=== PATIENT | female | born 1950 | race Caucasian/White ===

== ENCOUNTER 2022-01-16 12:30 | Inpatient (IN) | payer OTHER, MEDICAID ==
[~2022-01-16] VITALS: Ht 165.1 cm; Wt 149.4 kg
[2022-01-16 13:23] LABS: Albumin 3.1 g/dL (3.4-5.0); Calcium 8.9 mg/dL (8.5-10.1); Magnesium 2.3 mg/dL (1.6-2.6); Potassium 4.5 mmol/L (3.5-5.1)
[2022-01-16 13:28] LABS: BUN/Creatinine Ratio 26.7; Basophils # (auto) 0 10 ^3/uL (0-0.2); Basophils % (auto) 0.4 % (0.0-2.0); Bilirubin, Total 1.3 mg/dL (0.2-1.0); Eosinophils # (auto) 0.1 10 ^3/uL (0-0.8); Eosinophils % (auto) 1.2 % (0.0-7.0); Hematocrit 33.4 % (36.0-46.0); Hemoglobin 10.9 g/dL (12.2-16.2); Lymphocytes # (auto) 0.7 10 ^3/uL (0.4-5.4); Lymphocytes % (auto) 7.1 % (10.0-50.0); Mean Corpuscular Hemoglobin 27.5 pg (28.0-32.0); Mean Corpuscular Hgb Conc. 32.7 g/dL (32.0-36.0); Mean Corpuscular Volume 84.3 fL (80.0-100.0); Monocytes # (auto) 0.8 10 ^3/uL (0-1.3); Monocytes % (auto) 7.7 % (0.0-12.0); Neutrophils # (auto) 8.8 10 ^3/uL (1.6-8.6); Neutrophils % (auto) 83.6 % (37.0-80.0); Red Blood Cells 3.96 10^6/uL (4.0-5.20); Red Cell Distribution Width 17.4 % (11.8-14.3); Total Protein 7.9 g/dL (6.4-8.2); White Blood Cell 10.5 10^3/uL (4.4-10.8)
[2022-01-16 13:48] LABS: INR 1.09 (0.9-1.15); Partial Thromboplastin Time 31.6 sec (23.6-33.0)
[2022-01-16] MEDS ORDERED: ALBUTEROL SULF 2.5 MG/0.5ML(0.5%) NEB SOLN NEB ONE (16:00)
[2022-01-16] MEDS ORDERED: methylPREDNISolone SOD SUCC 125 MG/2 ML VL IV ONE (16:00)
[2022-01-16] MEDS ORDERED: IPRATROPIUM BROM 0.5 MG/2.5ML INH SOL NEB ONE (16:00)
[2022-01-16] MEDS ORDERED: IOHEXOL 350 MG/ML 100ML IJ ONE (16:28)
[2022-01-16] MEDS ORDERED: FUROSEMIDE 40 MG/4 ML VIAL IV ONE (16:30)
[2022-01-16 18:11] LABS: Urine Bacteria MANY /hpf (None Seen); Urine Blood Negative /uL (Negative); Urine Specific Gravity 1.017 (1.001-1.035); Urine WBC 22 /hpf (0 - 5)
[2022-01-16] MEDS ORDERED: MORPHINE SULFATE INJECTION 2 MG/ML SYRG IV PRN ×2 (18:30)
[2022-01-16] MEDS ORDERED: ACETAMINOPHEN 325 MG TAB PO PRN (18:30)
[2022-01-16] MEDS ORDERED: NITROGLYCERIN 0.4 MG SL TAB SL PRN (18:30)
[2022-01-16] MEDS: HYDROcodone-ACET 5/325MG TAB PO PRN ×2 (19:01→23:16)
[2022-01-16 20:00] VITALS: BP 117/58
[2022-01-16 22:00] VITALS: BP 117/58
[2022-01-16] MEDS: ATORVASTATIN 20 MG TAB PO SCH (23:14)
[2022-01-17] VITALS (7 sets, daily range): BP systolic 99–136; BP diastolic 51–70
[2022-01-17] MEDS ORDERED: METH750T22 PO (01:50)
[2022-01-17] MEDS ORDERED: MECL1TAB42 PO (01:50)
[2022-01-17] MEDS ORDERED: AMLO-489 PO (01:50)
[2022-01-17] MEDS ORDERED: FLUT500M2 INH (01:50)
[2022-01-17] MEDS ORDERED: CLOB0.05 TOP (01:50)
[2022-01-17] MEDS ORDERED: LOPELIQ6 PO (01:50)
[2022-01-17] MEDS ORDERED: FURO40TA4 PO (01:50)
[2022-01-17] MEDS ORDERED: HYDR-4188 PO (01:50)
[2022-01-17] MEDS ORDERED: ATOR20TA50 PO (01:50)
[2022-01-17] MEDS ORDERED: SOTA80TA PO (01:50)
[2022-01-17] MEDS ORDERED: ALLO100T PO (01:50)
[2022-01-17] MEDS ORDERED: GABA100C9 PO (01:50)
[2022-01-17] MEDS ORDERED: PANT1INJ3 IV (01:50)
[2022-01-17] MEDS ORDERED: ALBUAER3 IN (01:50)
[2022-01-17] MEDS ORDERED: CILO100T PO (01:50)
[2022-01-17] MEDS ORDERED: levoFLOXacin 500 MG TAB PO SCH (10:00)
[2022-01-17] MEDS: amLODIPine BESYLATE 5 MG TAB PO SCH (10:00)
[2022-01-17] MEDS: predniSONE 20 MG TAB PO SCH ×2 (10:24→22:31)
[2022-01-17] MEDS: PANTOPRAZOLE 40 MG TAB PO SCH (10:24)
[2022-01-17] MEDS: ALLOPURINOL 100 MG TAB PO SCH (10:25)
[2022-01-17] MEDS: ENOXAPARIN SOD 40 MG/0.4 ML SYRINGE SC SCH (10:26)
[2022-01-17] MEDS: hydrOXYchloroQUINE SULFATE 200 MG TAB PO SCH (10:31)
[2022-01-17] MEDS: FUROSEMIDE 40 MG TAB PO SCH (13:12)
[2022-01-17] MEDS: BUDESONIDE (INHALATION) 0.5 MG/2 ML NEB NEB SCH (19:22)
[2022-01-17] MEDS: HYDROcodone-ACET 5/325MG TAB PO PRN (22:32)
[2022-01-17] MEDS: ATORVASTATIN 20 MG TAB PO SCH (22:32)
[2022-01-18] VITALS (7 sets, daily range): BP systolic 87–120; BP diastolic 41–79
[2022-01-18] MEDS: levoFLOXacin 250 MG TAB PO SCH (09:04)
[2022-01-18] MEDS: predniSONE 20 MG TAB PO SCH ×2 (09:04→22:19)
[2022-01-18] MEDS: PANTOPRAZOLE 40 MG TAB PO SCH (09:04)
[2022-01-18] MEDS: ALLOPURINOL 100 MG TAB PO SCH (09:04)
[2022-01-18] MEDS: FUROSEMIDE 40 MG TAB PO SCH (09:06)
[2022-01-18] MEDS: SOTALOL HCL 80 MG TAB PO SCH ×2 (09:06→22:30)
[2022-01-18] MEDS: amLODIPine BESYLATE 5 MG TAB PO SCH (09:07)
[2022-01-18] MEDS: HYDROcodone-ACET 5/325MG TAB PO PRN ×2 (09:08→22:20)
[2022-01-18] MEDS: ENOXAPARIN SOD 40 MG/0.4 ML SYRINGE SC SCH (09:08)
[2022-01-18] MEDS: hydrOXYchloroQUINE SULFATE 200 MG TAB PO SCH (09:08)
[2022-01-18] MEDS: BUDESONIDE (INHALATION) 0.5 MG/2 ML NEB NEB SCH ×2 (09:58→22:24)
[2022-01-18] MEDS: GABAPENTIN 400 MG CAP PO SCH ×2 (10:00→22:19)
[2022-01-18] MEDS: ATORVASTATIN 20 MG TAB PO SCH (22:19)
[2022-01-18] MEDS: IPRATROPIUM BROM 0.5 MG/2.5ML INH SOL NEB PRN (22:24)
[2022-01-19] VITALS (7 sets, daily range): BP systolic 94–120; BP diastolic 47–65
[2022-01-19] MEDS: BUDESONIDE (INHALATION) 0.5 MG/2 ML NEB NEB SCH ×2 (06:07→18:48)
[2022-01-19 06:51] LABS: Basophils # (auto) 0 10 ^3/uL (0-0.2); Basophils % (auto) 0.1 % (0.0-2.0); Eosinophils # (auto) 0 10 ^3/uL (0-0.8); Hematocrit 31.7 % (36.0-46.0); Hemoglobin 10.6 g/dL (12.2-16.2); Lymphocytes # (auto) 0.6 10 ^3/uL (0.4-5.4); Lymphocytes % (auto) 7.9 % (10.0-50.0); Mean Corpuscular Hemoglobin 28.4 pg (28.0-32.0); Mean Corpuscular Hgb Conc. 33.3 g/dL (32.0-36.0); Mean Corpuscular Volume 85.2 fL (80.0-100.0); Monocytes # (auto) 0.3 10 ^3/uL (0-1.3); Monocytes % (auto) 4.3 % (0.0-12.0); Neutrophils # (auto) 6.8 10 ^3/uL (1.6-8.6); Neutrophils % (auto) 87.7 % (37.0-80.0); Red Blood Cells 3.72 10^6/uL (4.0-5.20); Red Cell Distribution Width 17.5 % (11.8-14.3); White Blood Cell 7.8 10^3/uL (4.4-10.8)
[2022-01-19 07:03] LABS: Albumin 2.6 g/dL (3.4-5.0); Calcium 8.4 mg/dL (8.5-10.1); Magnesium 2.5 mg/dL (1.6-2.6); Potassium 4.7 mmol/L (3.5-5.1)
[2022-01-19 07:07] LABS: BUN/Creatinine Ratio 36.3; Bilirubin, Total 0.5 mg/dL (0.2-1.0); Total Protein 6.9 g/dL (6.4-8.2)
[2022-01-19] MEDS: GABAPENTIN 400 MG CAP PO SCH ×2 (09:28→21:55)
[2022-01-19] MEDS: PANTOPRAZOLE 40 MG TAB PO SCH (09:29)
[2022-01-19] MEDS: levoFLOXacin 250 MG TAB PO SCH (09:30)
[2022-01-19] MEDS: predniSONE 20 MG TAB PO SCH ×2 (09:30→21:56)
[2022-01-19] MEDS: ALLOPURINOL 100 MG TAB PO SCH (09:30)
[2022-01-19] MEDS: FUROSEMIDE 40 MG TAB PO SCH (09:32)
[2022-01-19] MEDS: amLODIPine BESYLATE 5 MG TAB PO SCH (09:33)
[2022-01-19] MEDS: APIXABAN 5 MG TAB PO SCH ×2 (09:33→21:55)
[2022-01-19] MEDS: SOTALOL HCL 80 MG TAB PO SCH ×2 (09:33→21:55)
[2022-01-19] MEDS: hydrOXYchloroQUINE SULFATE 200 MG TAB PO SCH (09:34)
[2022-01-19] MEDS: HYDROcodone-ACET 5/325MG TAB PO PRN ×2 (09:39→21:56)
[2022-01-19] MEDS: IPRATROPIUM BROM 0.5 MG/2.5ML INH SOL NEB PRN (18:48)
[2022-01-19] MEDS: ATORVASTATIN 20 MG TAB PO SCH (21:55)
[2022-01-20 05:09] VITALS: BP 125/71
[2022-01-20] MEDS: IPRATROPIUM BROM 0.5 MG/2.5ML INH SOL NEB PRN (06:53)
[2022-01-20] MEDS: BUDESONIDE (INHALATION) 0.5 MG/2 ML NEB NEB SCH (06:53)
[2022-01-20 09:00] VITALS: BP 138/67
[2022-01-20] MEDS: APIXABAN 5 MG TAB PO SCH (10:11)
[2022-01-20] MEDS: predniSONE 20 MG TAB PO SCH (10:11)
[2022-01-20] MEDS: levoFLOXacin 250 MG TAB PO SCH (10:11)
[2022-01-20] MEDS: PANTOPRAZOLE 40 MG TAB PO SCH (10:12)
[2022-01-20] MEDS: hydrOXYchloroQUINE SULFATE 200 MG TAB PO SCH (10:12)
[2022-01-20] MEDS: GABAPENTIN 400 MG CAP PO SCH (10:12)
[2022-01-20] MEDS: ALLOPURINOL 100 MG TAB PO SCH (10:13)
[2022-01-20] MEDS: FUROSEMIDE 40 MG TAB PO SCH (10:15)
[2022-01-20] MEDS: SOTALOL HCL 80 MG TAB PO SCH (10:15)
[2022-01-20] MEDS: amLODIPine BESYLATE 5 MG TAB PO SCH (10:16)
[2022-01-20] MEDS ORDERED: DOXY-346 PO (11:42)
[2022-01-20] MEDS ORDERED: APIX5TAB PO ×2 (11:42→12:48)
[2022-01-20] MEDS ORDERED: PRED20TA2 PO (11:42)
[2022-01-20] MEDS: HYDROcodone-ACET 5/325MG TAB PO PRN (12:21)
[2022-01-20 13:00] VITALS: BP 146/73
== END 2022-01-20 16:34 | disposition home health service (06) | DRG 291 ==
LOC: ER 12:30 → EDBD 12:30 → TELE-WESTW 18:18 → ER 19:53 → TELE-WESTW 19:53
PROVIDERS: ADMIT Nurse Practitioner; ATTEND Nurse Practitioner
DX: I11.0 Hypertensive heart disease with heart failure (principal); J96.21 Acute and chronic respiratory failure with hypoxia; I50.33 Acute on chronic diastolic (congestive) heart failure; J44.1 Chronic obstructive pulmonary disease with (acute) exacerbation; J98.11 Atelectasis; Z68.43 Body mass index [BMI] 50.0-59.9, adult; E44.1 Mild protein-calorie malnutrition; E66.01 Morbid (severe) obesity due to excess calories; M10.9 Gout, unspecified; I48.0 Paroxysmal atrial fibrillation; Z20.822 Contact with and (suspected) exposure to COVID-19; D64.9 Anemia, unspecified; Z82.49 Family history of ischemic heart disease and other diseases of the circulatory system; Z82.5 Family history of asthma and other chronic lower respiratory diseases; Z91.81 History of falling; Z88.2 Allergy status to sulfonamides
CPT/HCPCS: 36415; 36600; 51702; 71045; 71275; 80053; 81001; 82805; 83735; 83880; 84484; 85025; 85610; 85730; 93005; 93306; 94640; 96372; 96374; 96375; G0378

== ENCOUNTER 2025-03-20 04:56 | Inpatient (IN) | payer OTHER, MEDICAID ==
[2025-03-20] VITALS (31 sets, daily range): BP systolic 96–122; BP diastolic 35–84; PULSE 69–100; RESP 10–25; TEMP 97.7–98.7; O2SAT 96–100
[~2025-03-20] VITALS: Ht 165.1 cm; Wt 131.3 kg
[~2025-03-20 04:56] MED LIST: ALBUAER3 IN; ALLO100T PO; AMLO1TAB22 PO; APIX2.5T PO; APIX5TAB PO; ATOR20TA50 PO; BUME2TAB5 PO; CILO100T3 PO; CLOB0.05 TOP; DOXY-346 PO; FLUT1AER13 PO; FLUT500M2 INH; FURO40TA4 PO; GABA-1250 PO; GABA-1308 PO; HYDR-4491 PO; LACT10SO3 PO; LOPELIQ6 PO; MECL-126 PO; MECL1TAB42 PO; METH-1182 PO; MIDO10TA3 PO; PANT1INJ3 IV; PANT40T PO; POTA-180 PO; PRED20TA2 PO; ROPI5TAB20 PO; SOTA80TA PO; SPIR50TA5 PO
--- NOTE | 2025-03-20 05:06 | ED.PDOC ---
History of Present Illness HPI Comments 74 year old, morbidly obese female who is brought in by ambulance for complaint of nonradiating, RUQ abdominal pain, with associated nausea and vomiting. Per EMS report, patient is a poor historian. She called with initial endorsement of pain and nausea and vomiting 1x on scene. Patient has a history of AFib with RVR, CHF, CKF stage III, COPD, DM, HLD, HTN, sepsis, and bacteremia. Patient is still has a gallbladder. She has no reported bloody or bilious vomitus, diarrhea, constipation, urinary symptoms, or further associated symptoms or modifying factors at this time. Time Seen by MD: 05:00 Reviewed Notes: Nurses Notes, Surveillance Monitor Notes, Medications, Allergies Allergies: Coded Allergies: Zinc Oxide (Verified Allergy, Mild, 03/07/25) Sulfa Antibiotics (Verified Allergy, Unknown, 01/16/22) Home Meds Active Scripts Apixaban Base (ELIQUIS) 5 Mg Tab, 5 MG PO BID for 30 Days, #60 TAB Prov:VÍCTOR HAMILTON BENDER HAND 01/20/22 Doxycycline (Monohydrate) (Doxycycline) 100 Mg Tab, 100 MG PO BID for 7 Days, #14 TAB Prov:VÍCTOR HAMILTON BENDER HAND 01/20/22 Prednisone (Prednisone) 20 Mg Tab, 20 MG PO BID for 5 Days, #10 TAB Prov:VÍCTOR HAMILTON BENDER HAND 01/20/22 Reported Medications Ropinirole Hydrochloride (Ropinirole Hcl) 0.25 Mg Tab, 1 TAB PO BID for 90 Days, #180 6/25 Spironolactone (Spironolactone) 50 Mg Tab, 1 TAB PO DAILY for 90 Days, #90 625 Meclizine HCl (Meclizine Hydrochloride) 25 Mg Tab, 1 TAB PO DAILY PRN for 90 Days, #90 6/25 Midodrine Hcl (Midodrine Hcl) 10 Mg Tab, 1 TAB PO BID for 90 Days, #180 625 Potassium Chloride (Potassium Chloride ER) 20 Meq Tab, 1 TAB PO BID for 90 Days, #180 6/25 Fluticasone-Salmeterol (Fluticasone Propionate/SA 500-50 Mcg/Dose) 1 Aer Aer, 1 PUFF PO BID for 30 Days, #60 6/25 Lactulose (Lactulose) 10 Gm/15 Ml Yoselyn, 15 ML PO DAILY for 30 Days, #450 02/26/25 Gabapentin (Gabapentin) 300 Mg Cap, 300 MG PO BID 11/08/24 Pantoprazole Sodium Sesquihydr (Pantoprazole Sodium) 40 Mg Tab, 1 TAB PO DAILY 11/08/24 Atorvastatin Calcium (ATORVASTATIN CALCIUM) 20 Mg Tab, 1 TAB PO DAILY 11/08/24 Bumetanide (Bumetanide) 2 Mg Tab, 1 TAB PO BID 11/08/24 Apixaban Base (ELIQUIS) 2.5 Mg Tab, 1 TAB PO BID 11/08/24 Allopurinol (Allopurinol) 100 Mg Tab, 1 TAB PO DAILY 11/08/24 Loperamide HCl (Imodium A-D) 1 Mg/7.5 Ml Liq, 1 MG PO, LIQ 01/17/22 Clobetasol Propionate (Clobetasol Propionate) 0.05 % Oin, 1 APPLIC TOP BID, #15 GRAMS 01/17/22 Hydroxychloroquine Sulfate (PLAQUENIL) 200 Mg Tab, 1 TAB PO DAILY, #180 TAB 3 Refills 01/17/22 Furosemide (Furosemide) 40 Mg Tab, 1 TAB PO DAILY, #30 TAB 5 Refills 01/17/22 Fluticasone-Salmeterol (Advair Diskus 500/50) 1 Puff Ih, 1 PUFF INH BID, #1 INHALER 5 Refills 01/17/22 Albuterol Sulfate (VENTOLIN MDI) 90 Mcg Ih, 90 MCG IN Q6HP for 30 Days, MCG 01/17/22 Allopurinol (Allopurinol) 100 Mg Tab, 100 MG PO DAILY for 30 Days, MG 01/17/22 Amlodipine Besylate (Amlodipine Besylate) 5 Mg Tab, 5 MG PO DAILY for 30 Days, MG 01/17/22 Atorvastatin Calcium (ATORVASTATIN CALCIUM) 20 Mg Tab, 1 TAB PO DAILY, #30 TAB 5 Refills 01/17/22 Gabapentin (Gabapentin) 100 Mg Cap, 400 MG PO BID for 30 Days, MG 01/17/22 Pantoprazole Sodium (PANTOPRAZOLE SODIUM) 40 Mg Inj, 40 MG IV DAILY, INJ 01/17/22 Cilostazol (Cilostazol) 100 Mg Tab, 100 MG PO BID for 30 Days, MG 01/17/22 Methocarbamol (Methocarbamol) 750 Mg Tab, 750 MG PO BID, TAB 01/17/22 Sotalol Hcl (Sotalol Hcl) 80 Mg Tab, 0.5 TAB PO BID, #60 TAB 5 Refills 01/17/22 Meclizine HCl (Meclizine 25) 25 Mg Tab, 25 MG PO BID, TAB 01/17/22 Information Source: Patient, Emergency Med Personnel Mode of Arrival: EMS Severity: Moderate Timing: Hours Duration: Since onset Prehospital treatment: 12 Lead EKG, Accucheck, Extractor Operator Solvent Process Past Medical History PAST MEDICAL HISTORY: AFIB, CHF, CKF (Stage III), COPD, DM, High Lipids, HTN Surgical History: Denies all surgeries SCREENER OPERATOR History: No Pertinent SCREENER OPERATOR History Family History Family History: Reviewed,noncontributory to illness Social History Smoker: Non-Smoker Alcohol: Denies ETOH Use Drugs: Denies Drug Use All Other Systems: Reviewed and Negative (Comprehensive systems review obtained and negative except for what is stated in the HPI.) Physical Exam General Appearance: Moderate Distress, Obese HEENT: Normal ENT Inspection, Pharynx Normal, TMs Normal Neck: Full Range of Motion, Non-Tender, Normal, Normal Inspection Respiratory: Chest Non-Tender, Lungs Clear, No Accessory Muscle Use, No Respiratory Distress, Normal Breath Sounds Cardiovascular: No Edema, No JVD, No Murmur, No Gallop, Normal Peripheral Pulses, Regular Rate/Rhythm Breast Exam: Deferred Gastrointestinal: No Organomegaly, No Pulsatile Mass, Normal Bowel Sounds, RUQ (Tenderness), Soft, Tenderness (RUQ) Genitalia: Deferred Pelvic: Deferred Rectal: Deferred Extremities: No calf tenderness, Normal capillary refill, Normal inspection, Normal range of motion, Non-tender, No pedal edema Musculoskeletal : Apperance: Normal Neurologic: Alert, overage shortage and damage clerk II-XII nml as Tested, No Motor Deficits, Normal Affect, Normal Mood, No Sensory Deficits Cerebellar Function: NOT DONE Reflexes: NOT DONE Skin: Dry, Normal Color, Warm Peripheral Pulses: 3+ Radial (R), 3+ Radial (L) Lymphatic: No Adenopathy Was a procedure done? Was a procedure done?: Yes Sedation Sedation?: No Central Line Recorder of insertion practice: Disability Rater Occupation of infrastructure consultant: Attending Physician Indication: Hypotension, CVP monitoring Room prepared for procedure: Yes Disability Rater performed hand hygien: Yes Maximal sterile barrier precau: Mask/Eye shield, Sterile gown Skin Preparation: Providine iodine Skin preparation completely dr: Yes Insertion site: Right, Internal jugular Central line catheter type: [id number] dialysis Number of lumens: 3 Antiseptic ointment applied to: Yes Post Assessment: Chest X-Ray Differential Dx Considerations may include: Cholelithiasis, cholecystitis, gastritis, GERD, PUD, among others X-Ray, Labs, Meds, VS Vital Signs Date Time Temp Pulse Resp B/P (MAP) Pulse Ox O2 Delivery O2 Flow Rate FiO2 03/20/25 05:45 98.4 96 17 100/37 (58) 99 98.4 03/20/25 05:45 96 17 99 Nasal Cannula* 3 32 03/20/25 05:08 97.9 100 18 111/44 (66) 100 97.9 Lab Test 03/20/25 06:15 03/20/25 05:31 03/20/25 05:17 Range/Units Troponin I High Sensitivity 31 32 </=34 ng/L White Blood Count 5.2 4.4-10.8 10^3/uL Red Blood Count 2.41 L 4.0-5.20 10^6/uL Hemoglobin 6.7 *L 12.2-16.2 g/dL Hematocrit 20.5 L 36.0-46.0 % Mean Corpuscular Volume 85.2 80.0-100.0 fL Mean Corpuscular Hemoglobin 27.7 L 28.0-32.0 pg Mean Corpuscular Hemoglobin Concent 32.6 32.0-36.0 g/dL Red Cell Distribution Width 15.5 H 11.8-14.3 % Platelet Count 57 L 140-450 10^3/uL Mean Platelet Volume 7.6 6.9-10.8 fL Neutrophils (%) (Auto) 84.4 H 37.0-80.0 % Lymphocytes (%) (Auto) 7.9 L 10.0-50.0 % Monocytes (%) (Auto) 5.6 0.0-12.0 % Eosinophils (%) (Auto) 1.5 0.0-7.0 % Basophils (%) (Auto) 0.6 0.0-2.0 % Neutrophils # (Auto) 4.4 1.6-8.6 10 ^3/uL Lymphocytes # (Auto) 0.4 0.4-5.4 10 ^3/uL Monocytes # (Auto) 0.3 0-1.3 10 ^3/uL Eosinophils # (Auto) 0.1 0-0.8 10 ^3/uL Basophils # (Auto) 0 0-0.2 10 ^3/uL Nucleated Red Blood Cells 0.0 % Sodium Level 124 L 136-145 mmol/L Potassium Level 3.9 3.5-5.1 mmol/L Chloride Level 87 L 98-107 mmol/L Carbon Dioxide Level 18 L 20-31 mmol/L Anion Gap 19 H 5-15 Blood Urea Nitrogen 71 H 9-23 mg/dL Creatinine 3.29 H 0.550-1.02 mg/dL Glomerular Filtration Rate Calc 14 >90 mL/min BUN/Creatinine Ratio 21.6 H 10.0-20.0 Serum Glucose 77 74-106 mg/dL Lactic Acid Level 1.2 0.4-2.0 mmol/L Calcium Level 8.4 L 8.7-10.4 mg/dL Total Bilirubin 0.9 0.2-1.0 mg/dL Aspartate Amino Transferase (AST) 143 H <34 U/L Alanine Aminotransferase (ALT) 111 H 7-40 U/L Alkaline Phosphatase 120 H 46-116 U/L Total Protein 6.5 5.7-8.2 g/dL Albumin 3.7 3.2-4.8 g/dL POC Glucose 78 70-106 mg/dl Patient alert. Answering questions. Blood pressure on the low side. Started Levophed. Liver profile elevated. Lactic acid within normal limits. WBC within normal limits. Blood transfusion. She is hypotensive. Possible sepsis. Was given Rocephin. Was given azithromycin. Possibly DC azithromycin with Flagyl. Kidney function elevated. Possible acute tubular necrosis. Establish intravenous access. Was given fluids. Explained to the patient. Continue monitor. Time of 1ST Reevaluation: 05:30 Reevaluation 1ST: Unchanged Patient Education/Counseling: Diagnosis, Treatment Family Education/Counseling: No Family Present Additional Information Previous visits reviewed: February 13, 2025 encounter for AFib and elevated troponin The following tests were ordered, and results were reviewed by me: Troponin, UA, lactic acid with reflex, CMP, CBC Additional Information was gathered from interviewing the following independent historians: EMS I reviewed and agreed with the following test results read by other providers: N/A I discussed treatment and results with medical personnel and: patient SEPSIS Sepsis Screen Physician Orders Urinalysis (03/20/25 05:06) Troponin-I Hs (03/20/25 08:06) Type And Screen (03/20/25 06:03) Insert/Manage Urinary Catheter QSHIFT (03/20/25 07:36) Norepinephrine 8 Mg/250ml Kit (Levophed) (03/20/25 07:45) Azithromycin 500mg/ 250ml (Zithromax 50 (03/20/25 07:45) Sodium Chloride 0.9% (03/20/25 07:45) Sodium Chloride 0.9% (03/20/25 07:45) Sodium Chloride 0.9% (03/20/25 07:45) Ct Ab Pel Wo Con-No Oral Or Iv (03/20/25 07:46) Metronidazole 500mg/100ml (Flagyl 500mg/ (03/20/25 08:00) Chest Portable (03/20/25 08:22) Vital Signs Date Time Temp Pulse Resp B/P (MAP) Pulse Ox O2 Delivery O2 Flow Rate FiO2 03/20/25 05:45 98.4 96 17 100/37 (58) 99 98.4 03/20/25 05:45 96 17 99 Nasal Cannula* 3 32 03/20/25 05:08 97.9 100 18 111/44 (66) 100 97.9 Laboratory Tests Test 03/20/25 05:31 Lactic Acid Level 1.2 mmol/L (0.4-2.0) White Blood Count 5.2 10^3/uL (4.4-10.8) Departure 1 Departure Time of Disposition: 07:50 Impression: Primary Impression: Symptomatic anemia Additional Impression: Sepsis Qualified Codes: A41.9 - Sepsis, unspecified organism Disposition: ADMITTED INPATIENT Admit to: Med Surg Condition: Guarded Critical Care Note Critical Care Time?: Yes (90 min-critical care time only) Critical care comment: Hypotension continue fluids watch for CHF Stability Stability form required: No Heart Score Heart Score: Heart Score Response (Comments) Value History Slightly Suspicious 0 EKG Normal 0 Age >65 2 Risk Factors >3 or Hx ASHD 2 Troponin Normal limit 0 Total 4 I personally scribed for JOSÉ DUMONT MD ([email or web address]) on 03/20/25 at 05:06. Electronically submitted by Gino Jones ([email or web address]). I personally scribed for JOSÉ DUMONT MD ([email or web address]) on 03/20/25 at 05:17. Electronically submitted by Gino Jones [email or web address]). JOSÉ DUMONT MD Mar 20, 2025 05:06 TJ DICKSON MD Mar 20, 2025 07:50
[2025-03-20] MEDS: IOHEXOL 300 MG/ML 100ML BOTTLE IJ ONE (05:38)
[2025-03-20 05:45] LABS: Nucleated Red Blood Cells % 0.0 %
[2025-03-20 05:48] LABS: Hematocrit 20.5 % (36.0-46.0); Mean Corpuscular Hemoglobin 27.7 pg (28.0-32.0); Mean Corpuscular Volume 85.2 fL (80.0-100.0)
[2025-03-20 06:01] LABS: Anion Gap 19 (5-15); BUN/Creatinine Ratio 21.6 (10.0-20.0); Glucose 77 mg/dL (74-106); Hemoglobin 6.7 g/dL (12.2-16.2); Potassium 3.9 mmol/L (3.5-5.1); Total Protein 6.5 g/dL (5.7-8.2)
[2025-03-20 06:02] LABS: Albumin 3.7 g/dL (3.2-4.8); Bilirubin, Total 0.9 mg/dL (0.2-1.0)
[2025-03-20 06:24] LABS: Alanine Aminotransferase 111 U/L (7-40); Alkaline Phosphatase 120 U/L (46-116); Blood Urea Nitrogen 71 mg/dL (9-23); Calcium 8.4 mg/dL (8.7-10.4); Carbon Dioxide 18 mmol/L (20-31); Chloride 87 mmol/L (98-107); Sodium 124 mmol/L (136-145)
[2025-03-20] MEDS: NOREPINEPHRINE 8 MG/250ML KIT 250 ML IV SCH (07:45)
[2025-03-20] MEDS: SODIUM CHLORIDE 0.9% 1,000 ML IV ONE ×3 (07:45→09:56)
[2025-03-20] MEDS ORDERED: AZITHROMYCIN 500MG/ 250ML 250 ML IV ONE (07:45)
--- NOTE | 2025-03-20 09:10 | DVH ---
EXAM: XY CHEST PORTABLE Indication: painS/P CENTRAL LINE PLACEMENT Technique: Single frontal view of the chest was obtained Comparison: CHEST XRAY 1 VIEW on DOS: 01/19/22, CXR1 on DOS: 01/19/22, CHEST PORTABLE on DOS: 01/16/22, CXRP on DOS: 01/16/22 FINDINGS: Lines and Tubes: Right internal jugular central venous catheter tip projects over the superior vena c luna. Lungs: No focal consolidation. Pleura: No effusion. No pneumothorax. Cardiomediastinal contours: Cardiomegaly. Bones: No acute osseous abnormality. IMPRESSION: Cardiomegaly.
[2025-03-20] MEDS: NOREPINEPHRINE 8 MG/250ML KIT 250 ML IV ONE (09:36)
[2025-03-20 09:48] LABS: Urine Protein, UAD Negative (Negative)
[2025-03-20] MEDS: cefTRIAXone 1GM/50ML D5W 50 ML IV ONE (09:56)
--- NOTE | 2025-03-20 10:06 | DVH ---
Exam: CT CT AB PEL WO CON-NO ORAL OR IV History: colitis Comparison Study: ECIDC on DOS: 01/17/22 Technique: Multidetector spiral CT of the abdomen was performed from lung bases to pubic symphysis. I maging was performed without IV contrast. Axial, coronal and sagittal multiplanar reformats were obta ined from the axial data set by the technologist. Radiation Dose : 1. Abdomen/Pelvis: CTDIvol 26.11 mGy, DLP 1540.48 mGy*cm. Findings: Evaluation of solid organs is limited due to lack of intravenous contrast use. Lung Bases: Cardiomegaly. Dependent atelectasis. Liver: The liver is normal in size. No focal lesions. Gallbladder and Biliary Tree: Gallbladder sludge is present. Spleen: Unremarkable Pancreas: The pancreas is grossly normal in appearance. Adrenal Glands: Unremarkable Kidneys: Right kidney is unremarkable. Moderate left hydronephrosis. No appreciable obstructing ston e. Bladder: Bladder is decompressed with a Espinal catheter and cannot be adequately assessed. Bowel: The stomach is grossly normal in appearance. Diverticulosis. Mild inflammatory changes in the left lower quadrant with possible small abscess in the left hemipelvis measuring 5.7 cm. The appendix is not visualized; however, no secondary findings of acute appendicitis identified. Ascites: Absent Lymphadenopathy: No mesenteric, retroperitoneal or periportal lymphadenopathy. Abdominal Wall and Mesentery: Unremarkable. Vasculature: The visualized abdominal aorta is normal in size and caliber. Evaluation of abdominal a nd pelvic vessels is limited due to lack of intravenous contrast. Pelvic Organs: Unremarkable Musculoskeletal: No aggressive focal bony lesions, acute fractures or dislocation. Degenerative stone es of the spine. IMPRESSION: Moderate left hydroureteronephrosis. Suggestion of possible small abscess formation in the left hemipelvis associated with the sigmoid col on measuring 5.7 cm. This may represent site of ureteral obstruction. Clinical correlation advised. Examination is limited secondary to lack of intravenous and oral contrast administration.
[2025-03-20] MEDS: LORazepam 2MG/ML-1ML VIAL IV ONE (11:27)
[2025-03-20] MEDS ORDERED: DOCUSATE SOD 100 MG CAP PO PRN (12:15)
[2025-03-20] MEDS ORDERED: LEVO137T3 PO (12:18)
[2025-03-20] MEDS ORDERED: AMIO200T13 PO (12:18)
--- NOTE | 2025-03-20 12:57 | DVHHP2 ---
History of Present Illness Reason for Visit: Abdominal pain History of Present Illness Zoila Gold is a 74-year-old female with past medial history of COPD, 3L/NC home oxygen, CHF, hypertension, hyperlipidemia, diabetes, and chronic renal disease, who came to the hospital for abdominal pain. Patient states she has been experiencing abdominal pain with associated nausea and vomiting for about 2-3 days. The pain was worsening and she was not able to eat prompting her to come to the hospital. While in the ER she was found to be anemic, hypotensive, and septic. Patient denies any signs/symptoms of bleeding or any recent sick contacts. Cardiovascular: CHF, HTN, hyperipidemia Pulmonary: COPD (3L home oxygen) Renal/: Chronic renal insuff Endocrine: Diabetes Past Surgical History: Total knee replacement (right) Smoke: No ALCOHOL: none Drugs: None Lives: with Family Domestic Violence: Neg Review of Systems Constitutional: No: Fever, Chills, Sweats, Weakness, Malaise, Other Eyes: No: Pain, Vision change, Conjunctivae inflammation, Eyelid inflammation, Other, Redness ENT: No: Ear pain, Ear discharge, Nose pain, Nose discharge, Nose congestion, Mouth pain, Mouth swelling, Throat pain, Throat swelling, Other Respiratory: No: Cough, Dry, Shortness of breath, SOB with excertion, Wheezing, Hemoptysis, Pleuritic Pain, Sputum, Wheezing, Other Cardiovascular: No: Chest Pain, Palpitations, Orthopnea, Paroxysmal Noc. Dyspnea, Edema, Lt Headedness, Other Gastrointestinal: Nausea, Vomiting, Abdominal Pain; No: Diarrhea, Constipation, Melena, Hematochezia, Other Genitourinary: No Dysuria, No Frequency, No Incontinence, No Hematuria, No Retention, No Other Musculoskeletal: No: other, neck pain, shoulder pain, arm pain, back pain, hand pain, leg pain, foot pain Skin: No: Rash, Lesions, Jaundice, Bruising, Other Neurological: No: Weakness, Numbness, Incoordination, Change in speech, Confusion, Seizures, Other Allergies: Coded Allergies: Zinc Oxide (Verified Allergy, Mild, 03/07/25) Sulfa Antibiotics (Verified Allergy, Unknown, 01/16/22) Medications Current Medications Medications Dose Ordered Sig/Sravan Route Start Time Stop Time Status Last Admin Dose Admin Norepinephrine Bitartrate 250 ml @ 3.75 mls/hr Q24H IV 03/20/25 07:45 03/20/25 07:45 3.75 MLS/HR Acetaminophen/ Hydrocodone Bitart 1 tab Q4HP PRN PO 03/20/25 12:15 UNV Ondansetron HCl 4 mg Q4HP PRN IV 03/20/25 12:15 UNV Docusate Sodium 100 mg BIDPRN PRN PO 03/20/25 12:15 UNV Acetaminophen 650 mg Q6HP PRN PO 03/20/25 12:15 UNV Nitroglycerin 0.4 mg Q5MINP PRN SL 03/20/25 12:15 UNV Morphine Sulfate 2 mg Q30M PRN IV 03/20/25 12:15 UNV Allopurinol 100 mg DAILY PO 03/21/25 10:00 UNV Apixaban 2.5 mg BID PO 03/20/25 22:00 UNV Cilostazol 100 mg BID PO 03/20/25 22:00 UNV Gabapentin 300 mg BID PO 03/20/25 22:00 UNV Patient Own Medication 1 tab BID PO 03/20/25 22:00 UNV Patient Own Medication 1 tab DAILY PO 03/21/25 10:00 UNV Exam Vital Signs Vital Signs Date Time Temp Pulse Resp B/P (MAP) Pulse Ox O2 Delivery O2 Flow Rate FiO2 03/20/25 11:15 111/37 03/20/25 10:51 97.7 95 16 97.7 03/20/25 09:30 96 03/20/25 09:30 Nasal Cannula* 2 28 General Appearance: Alert, Oriented X3, Cooperative, mild distress HEENT: Atraumatic, PERRLA Respiratory: Clear to auscultation, Normal air movement Cardiovascular: Regular rate, Normal S1, Normal S2 Abdominal: Normal bowel sounds, Soft, No tenderness, No hepatospenomegaly Extremities: No clubbing, No cyanosis, No edema, Normal pulses Skin: No rashes, No breakdown, No significant lesion Neuro: Normal speech, Normal tone, Other (bed bound for 5 years) Psych/Mental Status: Mental status NL Labs/Xrays Labs Test 03/20/25 09:34 03/20/25 08:30 03/20/25 05:31 03/20/25 05:17 Range/Units Urine Color Colorless Yellow Urine Clarity Turbid H Clear Urine pH 5.0 5.0-9.0 Urine Specific [place] 1.015 1.001-1.035 Urine Protein Negative Negative Urine Ketones Negative Negative Urine Blood Negative Negative /uL Urine Nitrite Negative Negative Urine Bilirubin Negative Negative Urine Urobilinogen Normal Negative mg/dL Urine Leukocyte Esterase 3+ Negative /uL Urine RBC 1 0 - 4 /hpf Urine Microscopic WBC 255 H 0-5 /HPF Urine Squamous Epithelial Cells Few <5 /hpf Urine Bacteria Few H None Seen /hpf Urine Glucose Normal Normal mg/dL Troponin I High Sensitivity 34 </=34 ng/L White Blood Count 5.2 4.4-10.8 10^3/uL Red Blood Count 2.41 L 4.0-5.20 10^6/uL Hemoglobin 6.7 *L 12.2-16.2 g/dL Hematocrit 20.5 L 36.0-46.0 % Mean Corpuscular Volume 85.2 80.0-100.0 fL Mean Corpuscular Hemoglobin 27.7 L 28.0-32.0 pg Mean Corpuscular Hemoglobin Concent 32.6 32.0-36.0 g/dL Red Cell Distribution Width 15.5 H 11.8-14.3 % Platelet Count 57 L 140-450 10^3/uL Mean Platelet Volume 7.6 6.9-10.8 fL Neutrophils (%) (Auto) 84.4 H 37.0-80.0 % Lymphocytes (%) (Auto) 7.9 L 10.0-50.0 % Monocytes (%) (Auto) 5.6 0.0-12.0 % Eosinophils (%) (Auto) 1.5 0.0-7.0 % Basophils (%) (Auto) 0.6 0.0-2.0 % Neutrophils # (Auto) 4.4 1.6-8.6 10 ^3/uL Lymphocytes # (Auto) 0.4 0.4-5.4 10 ^3/uL Monocytes # (Auto) 0.3 0-1.3 10 ^3/uL Eosinophils # (Auto) 0.1 0-0.8 10 ^3/uL Basophils # (Auto) 0 0-0.2 10 ^3/uL Nucleated Red Blood Cells 0.0 % Sodium Level 124 L 136-145 mmol/L Potassium Level 3.9 3.5-5.1 mmol/L Chloride Level 87 L 98-107 mmol/L Carbon Dioxide Level 18 L 20-31 mmol/L Anion Gap 19 H 5-15 Blood Urea Nitrogen 71 H 9-23 mg/dL Creatinine 3.29 H 0.550-1.02 mg/dL Glomerular Filtration Rate Calc 14 >90 mL/min BUN/Creatinine Ratio 21.6 H 10.0-20.0 Serum Glucose 77 74-106 mg/dL Lactic Acid Level 1.2 0.4-2.0 mmol/L Calcium Level 8.4 L 8.7-10.4 mg/dL Total Bilirubin 0.9 0.2-1.0 mg/dL Aspartate Amino Transferase (AST) 143 H <34 U/L Alanine Aminotransferase (ALT) 111 H 7-40 U/L Alkaline Phosphatase 120 H 46-116 U/L Total Protein 6.5 5.7-8.2 g/dL Albumin 3.7 3.2-4.8 g/dL POC Glucose 78 70-106 mg/dl Exam: CT CT AB PEL WO CON-NO ORAL OR IV Findings: Evaluation of solid organs is limited due to lack of intravenous contrast use. Lung Bases: Cardiomegaly. Dependent atelectasis. Liver: The liver is normal in size. No focal lesions. Gallbladder and Biliary Tree: Gallbladder sludge is present. Spleen: Unremarkable Pancreas: The pancreas is grossly normal in appearance. Adrenal Glands: Unremarkable Kidneys: Right kidney is unremarkable. Moderate left hydronephrosis. No appreciable obstructing stone. Bladder: Bladder is decompressed with a Espinal catheter and cannot be adequately assessed. Bowel: The stomach is grossly normal in appearance. Diverticulosis. Mild inflammatory changes in the left lower quadrant with possible small abscess in the left hemipelvis measuring 5.7 cm. The appendix is not visualized; however, no secondary findings of acute appendicitis identified. Ascites: Absent Lymphadenopathy: No mesenteric, retroperitoneal or periportal lymphadenopathy. Abdominal Wall and Mesentery: Unremarkable. Vasculature: The visualized abdominal aorta is normal in size and caliber. Evaluation of abdominal and pelvic vessels is limited due to lack of intravenous contrast. Pelvic Organs: Unremarkable Musculoskeletal: No aggressive focal bony lesions, acute fractures or disl ocation. Degenerative changes of the spine. IMPRESSION: Moderate left hydroureteronephrosis. Suggestion of possible small abscess formation in the left hemipelvis associated with the sigmoid colon measuring 5.7 cm. This may represent site of ureteral obstruction. Clinical correlation advised. Examination is limited secondary to lack of intravenous and oral contrast administration. EXAM: XY CHEST PORTABLE FINDINGS: Lines and Tubes: Right internal jugular central venous catheter tip projects over the superior vena cava. Lungs: No focal consolidation. Pleura: No effusion. No pneumothorax. Cardiomediastinal contours: Cardiomegaly. Bones: No acute osseous abnormality. IMPRESSION: Cardiomegaly. Assessment/Plan Assessment/Plan Assessment: Symptomatic anemia, Transaminitis, Hyponatremia, Acute on chronic kidney failure, COPD, CHF, Diabetes, Plan: Admit to ICU, Vasopressors as needed, Transfuse 2 units PRBC, H&H post transfusion, Liver ultrasound, IV hydration, IV antibiotics, Home medications reconciled, Plan discussed with: Patient My Orders Orders - ZIYAD ORTEZ Procedure Category Date Status Time Admit ADMIT 03/20/25 Transmitted 12:08 Code Status CODE 03/20/25 Transmitted 12:08 Hydrocodone-Acet PHA 03/20/25 Logged 5/325mg Tab (Christiana 12:15 Ondansetron Hcl PHA 03/20/25 Logged (Zofran) 12:15 Docusate Sodium PHA 03/20/25 Logged Capsule (Colace 12:15 Complete Blood Count LAB 03/21/25 Verified 04:00 Comprehensive LAB 03/21/25 Verified Metabolic Panel 04:00 Cardiac DIET 03/20/25 Transmitted Diet-2gna,Lofat,Lochol Lunch Condition: Critical EBONY 03/20/25 In Process 12:08 Acetaminophen Tablet PHA 03/20/25 Logged (Tylenol Tablet) 12:15 Nitroglycerin PHA 03/20/25 Logged Sublingual (Ntrostat 12:15 Morphine Sulfate PHA 03/20/25 Logged Injection 12:15 Stat Ekg For Chest EBONY 03/20/25 In Process Pain 12:08 Notify Md Of Changes [facility] 03/20/25 In Process From Base 12:08 Patient Carrier For EBONY 03/20/25 In Process 24 Hours 12:08 Emergency Dysrhythmia EBONY 03/20/25 In Process Protocol 12:08 Rhythm Strips Once EBONY 03/20/25 In Process Every Shift 12:08 Oxygen By Nasal RT 03/20/25 Transmitted Cannula 12:08 Allopurinol Tablet PHA 03/21/25 Logged (Zyloprim Tablet) 10:00 Apixaban (Eliquis) PHA 03/20/25 Logged 22:00 Cilostazol (Pletal) PHA 03/20/25 Logged 22:00 Gabapentin Capsule PHA 03/20/25 Logged (Neurontin Capsule) 22:00 (Nf) Ropinirole PHA 03/20/25 Logged Hydrochloride 22:00 (Nf) Spironolactone PHA 03/21/25 Logged 10:00 Amiodarone Tablet PHA 03/20/25 Verified (Cordarone Tablet) 22:00 (Nf) Levothyroxine PHA 03/21/25 Verified Sodium 10:00 Date of Service: Mar 20, 2025 Billing Provider: ZIYAD ORTEZ Common Visit Codes: [id number] INP/OBS CARE (HIGH) ZIYAD ORTEZ Mar 20, 2025 12:57
[2025-03-20] MEDS: HYDROcodone-ACET 5/325MG TAB PO PRN (14:09)
--- NOTE | 2025-03-20 14:34 | DVH ---
INDICATION: Transaminitis TECHNIQUE: Multiple real-time sonographic images of the abdomen were obtained. COMPARISON: None FINDINGS: The liver is homogenous in echogenicity. The liver measures 16cm. No intrahepatic biliary ductal dilatation is noted. The gallbladder wall measures 0.2 cm and is unremarkable. No gallstones or sludge is seen. The commo n duct measures 0.4 cm and is unremarkable. No pericholecystic fluid is noted. The right kidney measures 9cm. No hydronephrosis. The left kidney measures 9cm. No hydronephrosis. The pancreas is not well visualized due to obscuration from bowel gas. The visualized portions of the IVC and aorta are grossly unremarkable. IMPRESSION: Small left hydronephrosis
[2025-03-20] MEDS: APIXABAN 2.5 MG TAB PO SCH (22:00)
[2025-03-20] MEDS ORDERED: GABAPENTIN 300 MG CAP PO SCH (22:00)
[2025-03-20] MEDS: AMIODARONE HCL 200 MG TAB PO SCH (22:35)
[2025-03-20] MEDS: CILOSTAZOL 100 MG TAB PO SCH (22:40)
[2025-03-21] VITALS (107 sets, daily range): BP systolic 80–123; BP diastolic 23–61; PULSE 82–122; RESP 9–25; TEMP 97.5–98.9; O2SAT 92–100
--- NOTE | 2025-03-21 04:35 | DVH ---
EXAM: XY CHEST PORTABLE HISTORY: RESP FAILURE COMPARISON: XY CHEST PORTABLE on DOS: 03/20/25, CHEST XRAY 1 VIEW on DOS: 01/19/22, CXR1 on DOS: 2, CHEST PORTABLE on DOS: 01/16/22, CXRP on DOS: 01/16/22, chest CT dated 01/16/2022. TECHNIQUE: Portable upright AP view of the chest was performed. FINDINGS: There is a right IJ central line with its tip in the mid SVC. There are diffuse bilateral interstitia l infiltrates, increased versus prior chest x-ray, although there are some technical differences. No pneumothorax or consolidative infiltrates. The heart is enlarged. The central pulmonary arteries are ectatic. IMPRESSION: 1. Cardiomegaly with increased interstitial prominence suggestive of CHF exacerbation. 2. Pulmonary arterial hypertension.
[2025-03-21 06:45] LABS: Alanine Aminotransferase 315 U/L (7-40); Albumin 3.4 g/dL (3.2-4.8); Alkaline Phosphatase 141 U/L (46-116); Anion Gap 14 (5-15); BUN/Creatinine Ratio 25.5 (10.0-20.0); Blood Urea Nitrogen 67 mg/dL (9-23); Calcium 8.3 mg/dL (8.7-10.4); Carbon Dioxide 22 mmol/L (20-31); Chloride 93 mmol/L (98-107); Glucose 83 mg/dL (74-106); Potassium 3.4 mmol/L (3.5-5.1); Sodium 129 mmol/L (136-145); Total Protein 6.1 g/dL (5.7-8.2)
[2025-03-21 06:46] LABS: Bilirubin, Total 1.4 mg/dL (0.2-1.0); Hematocrit 26.0 % (36.0-46.0); Hemoglobin 8.6 g/dL (12.2-16.2); Mean Corpuscular Hemoglobin 27.3 pg (28.0-32.0); Mean Corpuscular Volume 83.0 fL (80.0-100.0); Nucleated Red Blood Cells % 0.0 %
[2025-03-21 08:59] LABS: Lipase 19 U/L (12-53)
[2025-03-21 09:00] LABS: Amylase 21 U/L (30-118)
[2025-03-21] MEDS ORDERED: PATIENTS OWN MEDICATION (Levothyroxine Sodium 1 TAB) PO SCH (10:00)
[2025-03-21] MEDS ORDERED: PATIENTS OWN MEDICATION (Spironolactone 1 TAB) PO SCH (10:00)
[2025-03-21] MEDS: cefTRIAXone 1GM/50ML D5W 50 ML IV SCH (10:07)
[2025-03-21] MEDS: ACETAMINOPHEN 325 MG TAB PO PRN (10:08)
[2025-03-21] MEDS: LEVOTHYROXINE SODIUM 112 MCG TAB PO SCH (10:12)
[2025-03-21] MEDS: LEVOTHYROXINE SODIUM 25 MCG TAB PO SCH (10:12)
[2025-03-21] MEDS: ALLOPURINOL 100 MG TAB PO SCH (10:13)
[2025-03-21] MEDS: SPIRONOLACTONE 25 MG TAB PO SCH (10:13)
[2025-03-21] MEDS: GABAPENTIN 300 MG CAP PO SCH (10:13)
[2025-03-21] MEDS: POTASSIUM CHL 20MEQ/100ML 100 ML IV ONE (10:55)
[2025-03-21] MEDS: ALBUTEROL SULF 2.5 MG/0.5ML(0.5%) NEB SOLN ONE (18:41)
[2025-03-21] MEDS: ALBUTEROL SULF 2.5 MG/0.5ML(0.5%) NEB SOLN NEB SCH (18:41)
[2025-03-21] MEDS: IPRATROPIUM BROM 0.5 MG/2.5ML INH SOL ONE (18:41)
[2025-03-21] MEDS: IPRATROPIUM BROM 0.5 MG/2.5ML INH SOL NEB SCH (18:41)
--- NOTE | 2025-03-21 18:46 | DVHINCON2 ---
Date of service: Mar 20, [address] baldwin Reason for Consultation copd History of Present Illness HPI pt is a 74 yo female, with multiple medical problems, known to me from previous admissions. Presented with shortness of breath and swelling. She has a h/o htn and copd, CHF, CKD. IN ER pt on levophed drip for hypotension, 02 at baseline. CXR; infiltrates/?pneumonia. Hb 6.7, Cr 2.6, CT abd: moderate left hydropnephrosis Home Meds Active Scripts Prednisone (Prednisone) 20 Mg Tab, 20 MG PO BID for 5 Days, #10 TAB Prov:VÍCTOR HAMILTON Brittni [employer] 01/20/22 Reported Medications Amiodarone HCl (Amiodarone HCl) 200 Mg Tab, 1 TAB PO BID 03/20/25 Levothyroxine Sodium (Levothyroxine Sodium) 137 Mcg Tab, 1 TAB PO DAILY 03/20/25 Ropinirole Hydrochloride (Ropinirole Hcl) 0.25 Mg Tab, 1 TAB PO BID for 90 Days, #180 02/26/25 Spironolactone (Spironolactone) 50 Mg Tab, 1 TAB PO DAILY for 90 Days, #90 02/26/25 Meclizine HCl (Meclizine Hydrochloride) 25 Mg Tab, 1 TAB PO DAILY PRN for 90 Days, #90 02/26/25 Midodrine Hcl (Midodrine Hcl) 10 Mg Tab, 1 TAB PO BID for 90 Days, #180 02/26/25 Potassium Chloride (Potassium Chloride ER) 20 Meq Tab, 1 TAB PO BID for 90 Days, #180 02/26/25 Fluticasone-Salmeterol (Fluticasone Propionate/SA 500-50 Mcg/Dose) 1 Aer Aer, 1 PUFF PO BID for 30 Days, #60 02/26/25 Lactulose (Lactulose) 10 Gm/15 Ml Yoselyn, 15 ML PO DAILY for 30 Days, #450 02/26/25 Gabapentin (Gabapentin) 300 Mg Cap, 300 MG PO BID 11/08/24 Pantoprazole Sodium Sesquihydr (Pantoprazole Sodium) 40 Mg Tab, 1 TAB PO DAILY 11/08/24 Atorvastatin Calcium (ATORVASTATIN CALCIUM) 20 Mg Tab, 1 TAB PO DAILY 11/08/24 Bumetanide (Bumetanide) 2 Mg Tab, 1 TAB PO BID 11/08/24 Apixaban Base (ELIQUIS) 2.5 Mg Tab, 1 TAB PO BID 11/08/24 Loperamide HCl (Imodium A-D) 1 Mg/7.5 Ml Liq, 1 MG PO, LIQ 01/17/22 Clobetasol Propionate (Clobetasol Propionate) 0.05 % Oin, 1 APPLIC TOP BID, #15 GRAMS 01/17/22 Hydroxychloroquine Sulfate (PLAQUENIL) 200 Mg Tab, 1 TAB PO DAILY, #180 TAB 3 Refills 01/17/22 Furosemide (Furosemide) 40 Mg Tab, 1 TAB PO DAILY, #30 TAB 5 Refills 01/17/22 Fluticasone-Salmeterol (Advair Diskus 500/50) 1 Puff Ih, 1 PUFF INH BID, #1 INHALER 5 Refills 01/17/22 Albuterol Sulfate (VENTOLIN MDI) 90 Mcg Ih, 90 MCG IN Q6HP for 30 Days, MCG 01/17/22 Allopurinol (Allopurinol) 100 Mg Tab, 100 MG PO DAILY for 30 Days, MG 01/17/22 Amlodipine Besylate (Amlodipine Besylate) 5 Mg Tab, 5 MG PO DAILY for 30 Days, MG 01/17/22 Pantoprazole Sodium (PANTOPRAZOLE SODIUM) 40 Mg Inj, 40 MG IV DAILY, INJ 01/17/22 Cilostazol (Cilostazol) 100 Mg Tab, 100 MG PO BID for 30 Days, MG 01/17/22 Methocarbamol (Methocarbamol) 750 Mg Tab, 750 MG PO BID, TAB 01/17/22 Sotalol Hcl (Sotalol Hcl) 80 Mg Tab, 0.5 TAB PO BID, #60 TAB 5 Refills 01/17/22 Meclizine HCl (Meclizine 25) 25 Mg Tab, 25 MG PO BID, TAB 01/17/22 Discontinued Reported Medications Allopurinol (Allopurinol) 100 Mg Tab, 1 TAB PO DAILY 11/08/24 Atorvastatin Calcium (ATORVASTATIN CALCIUM) 20 Mg Tab, 1 TAB PO DAILY, #30 TAB 5 Refills 01/17/22 Gabapentin (Gabapentin) 100 Mg Cap, 400 MG PO BID for 30 Days, MG 01/17/22 Discontinued Scripts Apixaban Base (ELIQUIS) 5 Mg Tab, 5 MG PO BID for 30 Days, #60 TAB Prov:VÍCTOR HAMILTON [employer] 01/20/22 Doxycycline (Monohydrate) (Doxycycline) 100 Mg Tab, 100 MG PO BID for 7 Days, #14 TAB Prov:VÍCTOR HAMILTON [employer] 01/20/22 Past Medical History Cardiac: CHF, HTN Pulmonary: COPD Central Nervous System: No pertinent Hx GI: No pertinent Hx Hemotology/Oncology: No pertinent Hx Hepatobiliary: No pertinent Hx Psychiatric: No pertinent Hx Musculoskeletal: No pertinent Hx Rheumotologic: No pertinent Hx Infectious Disease: No peritnent Hx ENT: No pertinent Hx Renal/: No pertinent Hx Endocrine: No pertinent Hx Dermatology: No pertinent Hx Past Surgical History: No pertinent Hx Family History: No pertinent Hx Patient Family History: Cerebrovascular accident (CVA) G8 MOTHER Chronic obstructive pulmonary disease FH: CHF (congestive heart failure) G8 MOTHER Hypertension G8 MOTHER Review of Systems Constitutional: Malaise Ears, Nose, & Throat: No symptom reported Eyes: No symptom reported Pulmonary/Respiratory: Dyspnea, Cough Cardiovascular: Paroxysmal Noc. Dyspnea, Edema Gastrointestinal: No symptom reported Genitourinary: No symptom reported Musculoskeletal: No symptom reported Skin: No symptom reported Psychiatric: No symptom reported Endocrine: No symptom reported Hemotologic/Lymphatic: No symptom reported H&P Exam Vital Signs Vital Signs Date Time Temp Pulse Resp B/P (MAP) Pulse Ox O2 Delivery O2 Flow Rate FiO2 03/21/25 16:31 89/38 03/21/25 16:31 100 18 97 03/21/25 16:00 Nasal Cannula* 3 32 03/21/25 08:00 98.1 98.1 General Appeara: Well developed, Well nourished Head Exam: Normal inspection Neck Exam: Normal inspection, Non-tender, Normal alignment Eye Exam: bilateral eye Normal inspection, bilateral eye PERRL, bilateral eye EOMI Ear Exam: bilateral ear Auricle normal, bilateral ear Canal normal Nasal Exam: Normal inspection Mouth: Normal Inspection Pulmonary/Respiratory: Normal inspection, Normal breath sounds Cardiovascular/Chest: Edema Peripheral Pulses: 4+ carotid (R), 4+ carotid (L) Labs/Xrays Labs Test 03/21/25 05:21 03/20/25 09:34 03/20/25 08:30 03/20/25 05:31 Range/Units White Blood Count 8.2 # 4.4-10.8 10^3/uL Red Blood Count 3.14 L 4.0-5.20 10^6/uL Hemoglobin 8.6 #L 12.2-16.2 g/dL Hematocrit 26.0 #L 36.0-46.0 % Mean Corpuscular Volume 83.0 80.0-100.0 fL Mean Corpuscular Hemoglobin 27.3 L 28.0-32.0 pg Mean Corpuscular Hemoglobin Concent 32.9 32.0-36.0 g/dL Red Cell Distribution Width 16.2 H 11.8-14.3 % Platelet Count 73 L 140-450 10^3/uL Mean Platelet Volume 7.3 6.9-10.8 fL Neutrophils (%) (Auto) 79.8 37.0-80.0 % Lymphocytes (%) (Auto) 5.9 L 10.0-50.0 % Monocytes (%) (Auto) 10.9 0.0-12.0 % Eosinophils (%) (Auto) 3.0 0.0-7.0 % Basophils (%) (Auto) 0.4 0.0-2.0 % Neutrophils # (Auto) 6.6 1.6-8.6 10 ^3/uL Lymphocytes # (Auto) 0.5 0.4-5.4 10 ^3/uL Monocytes # (Auto) 0.9 0-1.3 10 ^3/uL Eosinophils # (Auto) 0.2 0-0.8 10 ^3/uL Basophils # (Auto) 0 0-0.2 10 ^3/uL Nucleated Red Blood Cells 0.0 % Sodium Level 129 #L 136-145 mmol/L Potassium Level 3.4 L 3.5-5.1 mmol/L Chloride Level 93 L 98-107 mmol/L Carbon Dioxide Level 22 20-31 mmol/L Anion Gap 14 5-15 Blood Urea Nitrogen 67 H 9-23 mg/dL Creatinine 2.63 H 0.550-1.02 mg/dL Glomerular Filtration Rate Calc 18 >90 mL/min BUN/Creatinine Ratio 25.5 H 10.0-20.0 Serum Glucose 83 74-106 mg/dL Calcium Level 8.3 L 8.7-10.4 mg/dL Total Bilirubin 1.4 H 0.2-1.0 mg/dL Aspartate Amino Transferase (AST) 347 H <34 U/L Alanine Aminotransferase (ALT) 315 H 7-40 U/L Alkaline Phosphatase 141 H 46-116 U/L Total Protein 6.1 5.7-8.2 g/dL Albumin 3.4 3.2-4.8 g/dL Amylase Level 21 L 30-118 U/L Lipase 19 12-53 U/L Urine Color Colorless Yellow Urine Clarity Turbid H Clear Urine pH 5.0 5.0-9.0 Urine Specific [place] 1.015 1.001-1.035 Urine Protein Negative Negative Urine Ketones Negative Negative Urine Blood Negative Negative /uL Urine Nitrite Negative Negative Urine Bilirubin Negative Negative Urine Urobilinogen Normal Negative mg/dL Urine Leukocyte Esterase 3+ Negative /uL Urine RBC 1 0 - 4 /hpf Urine Microscopic WBC 255 H 0-5 /HPF Urine Squamous Epithelial Cells Few <5 /hpf Urine Bacteria Few H None Seen /hpf Urine Glucose Normal Normal mg/dL Troponin I High Sensitivity 34 </=34 ng/L Lactic Acid Level 1.2 0.4-2.0 mmol/L Test 03/20/25 05:17 Range/Units POC Glucose 78 70-106 mg/dl Microbiology Date/Time Source Procedure Growth Status 03/20/25 21:52 Nose MRSA Screen - Final Complete Assessment/Plan Plan SCOT hypoxemia COPD pneumonia left hydronephrosis septic shock pt seen and examined in the ER on levophed no distress 2 lpm CXR cardiomegaly congestion ?infiltrate right lung labs reviewed CT findings noted ?pelvic mass non tender to palpation management plan 02 bronchodilators for copd-stable levophed as needed\ keep MAP above 65 mm Hg obtain cx incl urine abx f/up with urology and gen sx gi and dvt proph crit care time 35 min Plan discussed with: Patient ELVA LANE MD Mar 21, 2025 18:46
--- NOTE | 2025-03-21 18:47 | DVHPN2 ---
Progress Note - Dictate Date Seen: Mar 21, 2025 Has the PT tested + for MRSA If YES, has PT been informed?: No Medical Necessity Reason Pt with a Central, PICC or Fol: Yes vital signs Vital Sign Date Time Temp Pulse Resp B/P (MAP) Pulse Ox O2 Delivery O2 Flow Rate FiO2 03/21/25 16:31 89/38 03/21/25 16:31 100 18 97 03/21/25 16:00 Nasal Cannula* 3 32 03/21/25 08:00 98.1 98.1 Total Intake and Output 03/20/25 03/20/25 03/21/25 15:00 23:00 07:00 Intake Total 3256.25 ml 407.50 ml 917.00 ml Output Total 900 ml 100 ml 1000 ml Balance 2356.25 ml 307.50 ml -83.00 ml medications Current Medications Medications Dose Ordered Sig/Sravan Route Start Time Stop Time Status Last Admin Dose Admin Norepinephrine Bitartrate 250 ml @ 3.75 mls/hr Q24H IV 03/20/25 07:45 03/21/25 10:56 18.75 MLS/HR Acetaminophen/ Hydrocodone Bitart 1 tab Q4HP PRN PO 03/20/25 12:15 03/21/25 12:26 1 TAB Ondansetron HCl 4 mg Q4HP PRN IV 03/20/25 12:15 Docusate Sodium 100 mg BIDPRN PRN PO 03/20/25 12:15 Acetaminophen 650 mg Q6HP PRN PO 03/20/25 12:15 03/21/25 10:08 650 MG Nitroglycerin 0.4 mg Q5MINP PRN SL 03/20/25 12:15 Morphine Sulfate 2 mg Q30M PRN IV 03/20/25 12:15 Allopurinol 100 mg DAILY PO 03/21/25 10:00 03/21/25 10:13 100 MG Apixaban 2.5 mg BID PO 03/20/25 22:00 Cilostazol 100 mg BID PO 03/20/25 22:00 03/20/25 22:40 100 MG Patient Own Medication 1 tab BID PO 03/20/25 22:00 Patient Own Medication 1 tab DAILY PO 03/21/25 10:00 UNV Amiodarone HCl 200 mg BID PO 03/20/25 22:00 03/21/25 10:10 200 MG Patient Own Medication 1 tab DAILY PO 03/21/25 10:00 UNV Gabapentin 300 mg DAILY PO 03/21/25 10:00 03/21/25 10:13 300 MG Levothyroxine Sodium 112 mcg DAILY PO 03/21/25 10:00 03/21/25 10:12 112 MCG Levothyroxine Sodium 25 mcg DAILY PO 03/21/25 10:00 03/21/25 10:12 25 MCG Spironolactone 50 mg DAILY PO 03/21/25 10:00 03/21/25 10:13 50 MG Ceftriaxone Sodium 50 ml @ 100 mls/hr DAILY@09 IV 03/21/25 09:00 03/21/25 10:07 100 MLS/HR Diphenhydramine HCl 50 mg Q42THBI PRN PO 03/21/25 16:45 Albuterol 2.5 mg Q6HR NEB 03/21/25 18:00 UNV Ipratropium [place] 0.5 mg Q6HWA NEB 03/21/25 18:00 UNV laboratory and microbiology Laboratory Tests 03/21/25 05:21 Test 03/21/25 05:21 Range/Units Serum Glucose 83 74-106 mg/dL Assessment/Plan SCOT hypoxemia COPD pneumonia left hydronephrosis septic shock pt seen and examined in the ER events none remains on levophed 16 mcg for septic shock no distress 2 lpm CXR cardiomegaly congestion ?infiltrate right lung labs reviewed CT findings noted ?pelvic mass non tender to palpation management plan 02 bronchodilators for copd-stable levophed as needed\ keep MAP above 65 mm Hg obtain cx incl urine abx f/up with urology and gen sx gi and dvt proph crit care time 35 min Plan discussed with: Patient CC Plasma Assessment Blood Product Administration S: [id number] MD Mar 21, 2025 18:47
--- NOTE | 2025-03-21 22:00 | DVHPN2 ---
Reviewed: Care Plan, H&P, Labs, Medications, Previous Orders, Radiology Changes from previous H/P or p: No Changes General: Per HPI Eyes: No Pain, No Vision change, No Conjunctivae inflammation, No Eyelid inflammation, No Other, No Redness ENT: No Ear pain, No Ear discharge, No Nose pain, No Nose discharge, No Nose congestion, No Mouth pain, No Mouth swelling, No Throat pain, No Throat swelling, No Other Cardiovascular: No Chest Pain, No Palpitations, No Orthopnea, No Paroxysmal Noc. Dyspnea, No Edema, No Lt Headedness, No Other Respiratory: No Cough, No Dry, No Shortness of breath, No SOB with excertion, No Wheezing, No Hemoptysis, No Pleuritic Pain, No Sputum, No Other Gastrointestinal: Nausea, Vomiting, Abdominal Pain; No Diarrhea, No Constipation, No Melena, No Hematochezia, No Other Genitourinary: No Dysuria, No Frequency, No Incontinence, No Hematuria, No Retention, No Other Musculoskeletal: No other, No neck pain, No shoulder pain, No arm pain, No back pain, No hand pain, No leg pain, No foot pain Skin: No Rash, No Lesions, No Jaundice, No Bruising, No Other Objective Vitals Vital Signs Date Time Temp Pulse Resp B/P (MAP) Pulse Ox O2 Delivery O2 Flow Rate FiO2 03/21/25 22:00 111/42 03/21/25 21:49 101 13 92 3.0 32 03/21/25 21:32 Nasal Cannula* 03/21/25 20:16 98.9 98.9 Intake/Output Intake and Output 03/21/25 07:00 Intake Total 4580.75 ml Output Total 2000 ml Balance 2580.75 ml Intake Oral 480 ml IV Total 2963.75 ml Blood Product 887 ml Other 250 ml Output Urine Total 2000 ml Stool Total 0 ml Medications Current Medications Medications Dose Ordered Sig/Sravan Route Start Time Stop Time Status Last Admin Dose Admin Norepinephrine Bitartrate 250 ml @ 3.75 mls/hr Q24H IV 03/20/25 07:45 03/21/25 22:00 30 MLS/HR Acetaminophen/ Hydrocodone Bitart 1 tab Q4HP PRN PO 03/20/25 12:15 03/21/25 21:10 1 TAB Ondansetron HCl 4 mg Q4HP PRN IV 03/20/25 12:15 Docusate Sodium 100 mg BIDPRN PRN PO 03/20/25 12:15 Acetaminophen 650 mg Q6HP PRN PO 03/20/25 12:15 03/21/25 10:08 650 MG Nitroglycerin 0.4 mg Q5MINP PRN SL 03/20/25 12:15 Morphine Sulfate 2 mg Q30M PRN IV 03/20/25 12:15 Allopurinol 100 mg DAILY PO 03/21/25 10:00 03/21/25 10:13 100 MG Apixaban 2.5 mg BID PO 03/20/25 22:00 03/21/25 21:06 2.5 MG Cilostazol 100 mg BID PO 03/20/25 22:00 03/21/25 21:07 100 MG Patient Own Medication 1 tab DAILY PO 03/21/25 10:00 UNV Amiodarone HCl 200 mg BID PO 03/20/25 22:00 03/21/25 21:06 200 MG Patient Own Medication 1 tab DAILY PO 03/21/25 10:00 UNV Gabapentin 300 mg DAILY PO 03/21/25 10:00 03/21/25 10:13 300 MG Levothyroxine Sodium 112 mcg DAILY PO 03/21/25 10:00 03/21/25 10:12 112 MCG Levothyroxine Sodium 25 mcg DAILY PO 03/21/25 10:00 03/21/25 10:12 25 MCG Spironolactone 50 mg DAILY PO 03/21/25 10:00 03/21/25 10:13 50 MG Ceftriaxone Sodium 50 ml @ 100 mls/hr DAILY@09 IV 03/21/25 09:00 03/21/25 10:07 100 MLS/HR Diphenhydramine HCl 50 mg [id number] PRN PO 03/21/25 16:45 Albuterol 2.5 mg Q6HR NEB 03/21/25 18:00 Ipratropium Lindsay 0.5 mg Q6HWA NEB 03/21/25 18:00 Patient Own Medication 1 tab BID PO 03/21/25 22:00 03/21/25 21:08 1 TAB Laboratory Results Laboratory Tests 03/21/25 05:21 Chemistry Test 03/21/25 05:21 Albumin 3.4 g/dL (3.2-4.8) Calcium Level 8.3 mg/dL (8.7-10.4) L Total Protein 6.1 g/dL (5.7-8.2) Lipid panel Test 03/21/25 05:21 Lipase 19 U/L (12-53) LFT Test 03/21/25 05:21 Alanine Aminotransferase (ALT) 315 U/L (7-40) H Alkaline Phosphatase 141 U/L (46-116) H Aspartate Amino Transferase (AST) 347 U/L (<34) H Total Bilirubin 1.4 mg/dL (0.2-1.0) H Urinalysis Test 03/20/25 09:34 Urine Color Colorless (Yellow) Urine Clarity Turbid (Clear) H Urine pH 5.0 (5.0-9.0) Urine Specific [place] 1.015 (1.001-1.035) Urine Protein Negative (Negative) Urine Ketones Negative (Negative) Urine Blood Negative /uL (Negative) Urine Nitrite Negative (Negative) Urine Bilirubin Negative (Negative) Urine Urobilinogen Normal mg/dL (Negative) Urine Leukocyte Esterase 3+ /uL (Negative) Urine RBC 1 /hpf (0 - 4) Urine Microscopic WBC 255 /HPF (0-5) H Urine Squamous Epithelial Cells Few /hpf (<5) Urine Bacteria Few /hpf (None Seen) H Urine Glucose Normal mg/dL (Normal) Microbiology Microbiology Date/Time Source Procedure Growth Status 03/20/25 21:52 Nose MRSA Screen - Final Complete Assessment/Plan Assessment/Plan Zoila Gold is a 74-year-old female with past medial history of COPD, 3L/NC home oxygen, CHF, hypertension, hyperlipidemia, diabetes, and chronic renal disease, who came to the hospital for abdominal pain. Patient states she has been experiencing abdominal pain with associated nausea and vomiting for about 2-3 days. The pain was worsening and she was not able to eat prompting her to come to the hospital. While in the ER she was found to be anemic, hypotensive, and septic. Patient denies any signs/symptoms of bleeding or any recent sick contacts. Symptomatic anemia, Transaminitis, Hyponatremia, Acute on chronic kidney failure, COPD, CHF, Diabetes, sepsis/septic shock with pneumonia abd/pelvic abscess jade/ckd anemia, chronic hypomagnesemia 03/21/2025: on vasopressors, wean down as tolerated on lasix for LE edema b/l Plan discussed with: Patient My Orders Orders - TORRIE BUTLER DO Procedure Category Date Status Time Diphenhdramine PHA 03/21/25 In Process Capsule (Benadryl 16:45 Soft Diet DIET 03/21/25 Transmitted Dinner Date of Service: Mar 21, 2025 Billing Provider: TORRIE BUTLER DO Common Visit Codes: [id number] CARE 30-74 MIN TORRIE BUTLER DO Mar 21, 2025 22:00
[2025-03-21] MEDS: diphenhdrAMINE HCL 25 MG CAP PO PRN (22:57)
[2025-03-22] VITALS (107 sets, daily range): BP systolic 84–136; BP diastolic 31–59; PULSE 93–134; RESP 9–27; TEMP 97.8–99.2; O2SAT 93–100
[2025-03-22 03:26] LABS: Hematocrit 24.7 % (36.0-46.0); Hemoglobin 8.1 g/dL (12.2-16.2); Mean Corpuscular Hemoglobin 27.2 pg (28.0-32.0); Mean Corpuscular Volume 83.4 fL (80.0-100.0); Nucleated Red Blood Cells % 0.1 %
[2025-03-22 03:27] LABS: Anion Gap 13 (5-15); Carbon Dioxide 22 mmol/L (20-31); Potassium 3.8 mmol/L (3.5-5.1)
[2025-03-22 03:33] LABS: BUN/Creatinine Ratio 24.5 (10.0-20.0); Glucose 100 mg/dL (74-106)
[2025-03-22 03:34] LABS: Magnesium 1.6 mg/dL (1.6-2.6)
[2025-03-22 03:53] LABS: Blood Urea Nitrogen 68 mg/dL (9-23); Calcium 8.3 mg/dL (8.7-10.4); Chloride 94 mmol/L (98-107); Sodium 129 mmol/L (136-145)
--- NOTE | 2025-03-22 05:41 | DVH ---
EXAM: XR Chest, 1 View CLINICAL INDICATION: RESP FAILURE TECHNIQUE: Frontal view of the chest. COMPARISON: No relevant prior studies available. FINDINGS: LUNGS AND PLEURAL SPACES: See below. HEART: Cardiomegaly with mild pulmonary congestion. MEDIASTINUM: Unremarkable. Normal mediastinal contour. BONES/JOINTS: Unremarkable. No acute fracture. TUBES, LINES AND DEVICES: Right internal jugular central venous catheter tip in the superior vena c luna. OTHER FINDINGS: Comparison XY CHEST PORTABLE on DOS: 03/21/25, XY CHEST PORTABLE on DOS: 03/20/25, EST XRAY 1 VIEW on DOS: 01/19/22, CXR1 on DOS: 01/19/22, CHEST PORTABLE on DOS: 01/16/22. IMPRESSION: Cardiomegaly with mild pulmonary congestion. . HS:Y
--- NOTE | 2025-03-22 11:59 | DVHINCON2 ---
Date of service: Mar 22, 2025 Family History: Cerebrovascular accident (CVA) G8 MOTHER Chronic obstructive pulmonary disease FH: CHF (congestive heart failure) G8 MOTHER Hypertension G8 MOTHER Allergies: Coded Allergies: Zinc Oxide (Verified Allergy, Mild, 03/07/25) Sulfa Antibiotics (Verified Allergy, Unknown, 01/16/22) Home Meds Active Scripts Prednisone (Prednisone) 20 Mg Tab, 20 MG PO BID for 5 Days, #10 TAB Prov:VÍCTOR HAMILTON [employer] CHIEF 01/20/22 Reported Medications Amiodarone HCl (Amiodarone HCl) 200 Mg Tab, 1 TAB PO BID 03/20/25 Levothyroxine Sodium (Levothyroxine Sodium) 137 Mcg Tab, 1 TAB PO DAILY 03/20/25 Ropinirole Hydrochloride (Ropinirole Hcl) 0.25 Mg Tab, 1 TAB PO BID for 90 Days, #180 02/26/25 Spironolactone (Spironolactone) 50 Mg Tab, 1 TAB PO DAILY for 90 Days, #90 02/26/25 Meclizine HCl (Meclizine Hydrochloride) 25 Mg Tab, 1 TAB PO DAILY PRN for 90 Days, #90 02/26/25 Midodrine Hcl (Midodrine Hcl) 10 Mg Tab, 1 TAB PO BID for 90 Days, #180 02/26/25 Potassium Chloride (Potassium Chloride ER) 20 Meq Tab, 1 TAB PO BID for 90 Days, #180 02/26/25 Fluticasone-Salmeterol (Fluticasone Propionate/SA 500-50 Mcg/Dose) 1 Aer Aer, 1 PUFF PO BID for 30 Days, #60 02/26/25 Lactulose (Lactulose) 10 Gm/15 Ml Yoselyn, 15 ML PO DAILY for 30 Days, #450 02/26/25 Gabapentin (Gabapentin) 300 Mg Cap, 300 MG PO BID 11/08/24 Pantoprazole Sodium Sesquihydr (Pantoprazole Sodium) 40 Mg Tab, 1 TAB PO DAILY 11/08/24 Atorvastatin Calcium (ATORVASTATIN CALCIUM) 20 Mg Tab, 1 TAB PO DAILY 11/08/24 Bumetanide (Bumetanide) 2 Mg Tab, 1 TAB PO BID 11/08/24 Apixaban Base (ELIQUIS) 2.5 Mg Tab, 1 TAB PO BID 11/08/24 Loperamide HCl (Imodium A-D) 1 Mg/7.5 Ml Liq, 1 MG PO, LIQ 01/17/22 Clobetasol Propionate (Clobetasol Propionate) 0.05 % Oin, 1 APPLIC TOP BID, #15 GRAMS 01/17/22 Hydroxychloroquine Sulfate (PLAQUENIL) 200 Mg Tab, 1 TAB PO DAILY, #180 TAB 3 Refills 01/17/22 Furosemide (Furosemide) 40 Mg Tab, 1 TAB PO DAILY, #30 TAB 5 Refills 01/17/22 Fluticasone-Salmeterol (Advair Diskus 500/50) 1 Puff Ih, 1 PUFF INH BID, #1 INHALER 5 Refills 01/17/22 Albuterol Sulfate (VENTOLIN MDI) 90 Mcg Ih, 90 MCG IN Q6HP for 30 Days, MCG 01/17/22 Allopurinol (Allopurinol) 100 Mg Tab, 100 MG PO DAILY for 30 Days, MG 01/17/22 Amlodipine Besylate (Amlodipine Besylate) 5 Mg Tab, 5 MG PO DAILY for 30 Days, MG 01/17/22 Pantoprazole Sodium (PANTOPRAZOLE SODIUM) 40 Mg Inj, 40 MG IV DAILY, INJ 01/17/22 Cilostazol (Cilostazol) 100 Mg Tab, 100 MG PO BID for 30 Days, MG 01/17/22 Methocarbamol (Methocarbamol) 750 Mg Tab, 750 MG PO BID, TAB 01/17/22 Sotalol Hcl (Sotalol Hcl) 80 Mg Tab, 0.5 TAB PO BID, #60 TAB 5 Refills 01/17/22 Meclizine HCl (Meclizine 25) 25 Mg Tab, 25 MG PO BID, TAB 01/17/22 Discontinued Reported Medications Allopurinol (Allopurinol) 100 Mg Tab, 1 TAB PO DAILY 11/08/24 Atorvastatin Calcium (ATORVASTATIN CALCIUM) 20 Mg Tab, 1 TAB PO DAILY, #30 TAB 5 Refills 01/17/22 Gabapentin (Gabapentin) 100 Mg Cap, 400 MG PO BID for 30 Days, MG 01/17/22 Discontinued Scripts Apixaban Base (ELIQUIS) 5 Mg Tab, 5 MG PO BID for 30 Days, #60 TAB Prov:VÍCTOR HAMILTON [employer] CHIEF 01/20/22 Doxycycline (Monohydrate) (Doxycycline) 100 Mg Tab, 100 MG PO BID for 7 Days, #14 TAB Prov:VÍCTOR HAMILTON [employer] CHIEF 01/20/22 Current Medications Current Medications Medications (Trade) Dose Ordered Sig/Sravan Route PRN Reason Start Time Stop Time Status Last Admin Diphenhydramine HCl (Benadryl Capsule) 50 mg [id number] PRN PO FOR ITCHING 03/21/25 16:45 03/21/25 22:57 Albuterol (Ventolin Medneb) 2.5 mg Q6HR [facility] 03/21/25 18:00 03/22/25 11:29 Ipratropium [place] (Atrovent Medneb) 0.5 mg Q6HWA [facility] 03/21/25 18:00 03/22/25 11:29 Patient Own Medication 1 tab BID PO 03/21/25 22:00 03/22/25 10:41 Vital Signs Vital Signs Date Time Temp Pulse Resp B/P (MAP) Pulse Ox O2 Delivery O2 Flow Rate FiO2 03/22/25 11:29 94 Nasal Cannula 3.0 03/22/25 11:29 115 12 03/22/25 11:29 32 03/22/25 10:45 97/51 03/21/25 22:46 97.5 97.5 Labs/Diagnostic Data Labs Test 03/22/25 02:55 03/21/25 05:21 03/20/25 09:34 03/20/25 08:30 Range/Units White Blood Count 12.3 #H 4.4-10.8 10^3/uL Red Blood Count 2.97 L 4.0-5.20 10^6/uL Hemoglobin 8.1 L 12.2-16.2 g/dL Hematocrit 24.7 L 36.0-46.0 % Mean Corpuscular Volume 83.4 80.0-100.0 fL Mean Corpuscular Hemoglobin 27.2 L 28.0-32.0 pg Mean Corpuscular Hemoglobin Concent 32.7 32.0-36.0 g/dL Red Cell Distribution Width 16.5 H 11.8-14.3 % Platelet Count 91 L 140-450 10^3/uL Mean Platelet Volume 7.2 6.9-10.8 fL Neutrophils (%) (Auto) 83.3 H 37.0-80.0 % Lymphocytes (%) (Auto) 6.3 L 10.0-50.0 % Monocytes (%) (Auto) 9.3 0.0-12.0 % Eosinophils (%) (Auto) 0.8 0.0-7.0 % Basophils (%) (Auto) 0.3 0.0-2.0 % Neutrophils # (Auto) 10.2 H 1.6-8.6 10 ^3/uL Lymphocytes # (Auto) 0.8 0.4-5.4 10 ^3/uL Monocytes # (Auto) 1.1 0-1.3 10 ^3/uL Eosinophils # (Auto) 0.1 0-0.8 10 ^3/uL Basophils # (Auto) 0 0-0.2 10 ^3/uL Nucleated Red Blood Cells 0.1 % Sodium Level 129 L 136-145 mmol/L Potassium Level 3.8 3.5-5.1 mmol/L Chloride Level 94 L 98-107 mmol/L Carbon Dioxide Level 22 20-31 mmol/L Anion Gap 13 5-15 Blood Urea Nitrogen 68 H 9-23 mg/dL Creatinine 2.77 H 0.550-1.02 mg/dL Glomerular Filtration Rate Calc 17 >90 mL/min BUN/Creatinine Ratio 24.5 H 10.0-20.0 Serum Glucose 100 74-106 mg/dL Calcium Level 8.3 L 8.7-10.4 mg/dL Magnesium Level 1.6 1.6-2.6 mg/dL Total Bilirubin 1.4 H 0.2-1.0 mg/dL Aspartate Amino Transferase (AST) 347 H <34 U/L Alanine Aminotransferase (ALT) 315 H 7-40 U/L Alkaline Phosphatase 141 H 46-116 U/L Total Protein 6.1 5.7-8.2 g/dL Albumin 3.4 3.2-4.8 g/dL Amylase Level 21 L 30-118 U/L Lipase 19 12-53 U/L Urine Color Colorless Yellow Urine Clarity Turbid H Clear Urine pH 5.0 5.0-9.0 Urine Specific [place] 1.015 1.001-1.035 Urine Protein Negative Negative Urine Ketones Negative Negative Urine Blood Negative Negative /uL Urine Nitrite Negative Negative Urine Bilirubin Negative Negative Urine Urobilinogen Normal Negative mg/dL Urine Leukocyte Esterase 3+ Negative /uL Urine RBC 1 0 - 4 /hpf Urine Microscopic WBC 255 H 0-5 /HPF Urine Squamous Epithelial Cells Few <5 /hpf Urine Bacteria Few H None Seen /hpf Urine Glucose Normal Normal mg/dL Troponin I High Sensitivity 34 </=34 ng/L Test 03/20/25 05:31 03/20/25 05:17 Range/Units Lactic Acid Level 1.2 0.4-2.0 mmol/L POC Glucose 78 70-106 mg/dl Microbiology Date/Time Source Procedure Growth Status 03/21/25 18:00 Urine - Catheterized Urine Culture - Preliminary Resulted 03/20/25 21:52 Nose MRSA Screen - Final Complete Assessment 74 year old morbidly obese female with complex comorbidities presenting with abdominal pain and found to have a fluid collection adjacent to the sigmoid colon, She is at very high risk for major surgical intervention but she is tachycardic and has leukocytosis with evidence of compression of the left ureter will attempt ct guided aspiaration by radiologist, and will ask GI to consider colonoscopy. Her abdopmen is non tender, Plan discussed with: Patient CHEYENNE BURROUGHS MD Mar 22, 2025 11:59
--- NOTE | 2025-03-22 13:58 | DVHINCON2 ---
Date of service: Mar 22, 2025 Referring Physician Hospitalist Reason for Consultation left hydronephrosis History of Present Illness History Source: Patient, RN Notes, MD Notes Exam Limitations: No limitations HPI 74 yo obese female with complex medical problems including CKD, CHF, COPD and hx of ETOH. CT scan shows left hydro. pt has a tijerina. Urology consulted for CT findings. pt is seen in ICU 10 appears comfortable. No voiced concerns. Will be going for percutaneous drainage of pelvic abscess. She is not a surgical candidate. Home Meds Active Scripts Prednisone (Prednisone) 20 Mg Tab, 20 MG PO BID for 5 Days, #10 TAB Prov:VÍCTOR HAMILTON [employer] 01/20/22 Reported Medications Amiodarone HCl (Amiodarone HCl) 200 Mg Tab, 1 TAB PO BID 03/20/25 Levothyroxine Sodium (Levothyroxine Sodium) 137 Mcg Tab, 1 TAB PO DAILY 03/20/25 Ropinirole Hydrochloride (Ropinirole Hcl) 0.25 Mg Tab, 1 TAB PO BID for 90 Days, #180 02/26/25 Spironolactone (Spironolactone) 50 Mg Tab, 1 TAB PO DAILY for 90 Days, #90 02/26/25 Meclizine HCl (Meclizine Hydrochloride) 25 Mg Tab, 1 TAB PO DAILY PRN for 90 Days, #90 25 Midodrine Hcl (Midodrine Hcl) 10 Mg Tab, 1 TAB PO BID for 90 Days, #180 02/26/25 Potassium Chloride (Potassium Chloride ER) 20 Meq Tab, 1 TAB PO BID for 90 Days, #180 02/26/25 Fluticasone-Salmeterol (Fluticasone Propionate/SA 500-50 Mcg/Dose) 1 Aer Aer, 1 PUFF PO BID for 30 Days, #60 02/26/25 Lactulose (Lactulose) 10 Gm/15 Ml Yoselyn, 15 ML PO DAILY for 30 Days, #450 02/26/25 Gabapentin (Gabapentin) 300 Mg Cap, 300 MG PO BID 11/08/24 Pantoprazole Sodium Sesquihydr (Pantoprazole Sodium) 40 Mg Tab, 1 TAB PO DAILY 11/08/24 Atorvastatin Calcium (ATORVASTATIN CALCIUM) 20 Mg Tab, 1 TAB PO DAILY 11/08/24 Bumetanide (Bumetanide) 2 Mg Tab, 1 TAB PO BID 11/08/24 Apixaban Base (ELIQUIS) 2.5 Mg Tab, 1 TAB PO BID 11/08/24 Loperamide HCl (Imodium A-D) 1 Mg/7.5 Ml Liq, 1 MG PO, LIQ 01/17/22 Clobetasol Propionate (Clobetasol Propionate) 0.05 % Oin, 1 APPLIC TOP BID, #15 GRAMS 01/17/22 Hydroxychloroquine Sulfate (PLAQUENIL) 200 Mg Tab, 1 TAB PO DAILY, #180 TAB 3 Refills 01/17/22 Furosemide (Furosemide) 40 Mg Tab, 1 TAB PO DAILY, #30 TAB 5 Refills 01/17/22 Fluticasone-Salmeterol (Advair Diskus 500/50) 1 Puff Ih, 1 PUFF INH BID, #1 INHALER 5 Refills 01/17/22 Albuterol Sulfate (VENTOLIN MDI) 90 Mcg Ih, 90 MCG IN Q6HP for 30 Days, MCG 01/17/22 Allopurinol (Allopurinol) 100 Mg Tab, 100 MG PO DAILY for 30 Days, MG 01/17/22 Amlodipine Besylate (Amlodipine Besylate) 5 Mg Tab, 5 MG PO DAILY for 30 Days, MG 01/17/22 Pantoprazole Sodium (PANTOPRAZOLE SODIUM) 40 Mg Inj, 40 MG IV DAILY, INJ 01/17/22 Cilostazol (Cilostazol) 100 Mg Tab, 100 MG PO BID for 30 Days, MG 01/17/22 Methocarbamol (Methocarbamol) 750 Mg Tab, 750 MG PO BID, TAB 01/17/22 Sotalol Hcl (Sotalol Hcl) 80 Mg Tab, 0.5 TAB PO BID, #60 TAB 5 Refills 01/17/22 Meclizine HCl (Meclizine 25) 25 Mg Tab, 25 MG PO BID, TAB 01/17/22 Discontinued Reported Medications Allopurinol (Allopurinol) 100 Mg Tab, 1 TAB PO DAILY 11/08/24 Atorvastatin Calcium (ATORVASTATIN CALCIUM) 20 Mg Tab, 1 TAB PO DAILY, #30 TAB 5 Refills 01/17/22 Gabapentin (Gabapentin) 100 Mg Cap, 400 MG PO BID for 30 Days, MG 01/17/22 Discontinued Scripts Apixaban Base (ELIQUIS) 5 Mg Tab, 5 MG PO BID for 30 Days, #60 TAB Prov:KRAFT,VÍCTOR M TANDEM MILL STICKER 01/20/22 Doxycycline (Monohydrate) (Doxycycline) 100 Mg Tab, 100 MG PO BID for 7 Days, #14 TAB Prov:VÍCTOR HAMILTON [employer] 01/20/22 Past Medical History Patient Family History: Cerebrovascular accident (CVA) G8 MOTHER Chronic obstructive pulmonary disease FH: CHF (congestive heart failure) G8 MOTHER Hypertension G8 MOTHER H&P Exam Vital Signs Vital Signs Date Time Temp Pulse Resp B/P (MAP) Pulse Ox O2 Delivery O2 Flow Rate FiO2 03/22/25 11:37 110 14 98 03/22/25 11:29 Nasal Cannula 3.0 03/22/25 11:29 32 03/22/25 10:45 97/51 03/21/25 22:46 97.5 97.5 General Appeara: Well developed, Well nourished, Normal Appearance, Obese Neuro/Mental St: Alert, Oriented Appearance: Appropriate appearance, Appropriate insight Eye contact/ Speech: Cooperative, Good eye contact, Normal speech Skin Exam: Normal inspection, Normal color, Warm/dry Labs/Xrays [place] [address] Ph: [phone] DIAGNOSTIC IMAGING Diagnostic Imaging Report : [id number] Signed PATIENT: JIMBO ROSE ACCT: [id number] UNIT: [id number] : 1950 LOC: ER ROOM / BED: / AGE / SEX: 74 / F ADM STATUS: REG ER SERVICE [id number] ORDERING PHYSICIAN: TJ DICKSON MD PROCEDURE(s): ABPL - CT AB PEL WO CON-NO ORAL OR IV REASON: colitis ORDER NUMBER(s): [id number], ACCESSION NUMBER(s): [id number] Exam: CT CT AB PEL WO CON-NO ORAL OR IV History: colitis Comparison Study: [facility] on DOS: 01/17/22 Technique: Multidetector spiral CT of the abdomen was performed from lung bases to pubic symphysis. Imaging was performed without IV contrast. Axial, coronal and sagittal multiplanar reformats were obtained from the axial data set by the technologist. Radiation Dose : 1. Abdomen/Pelvis: CTDIvol 26.11 mGy, DLP 1540.48 mGy*cm. Findings: Evaluation of solid organs is limited due to lack of intravenous contrast use. Lung Bases: Cardiomegaly. Dependent atelectasis. Liver: The liver is normal in size. No focal lesions. Gallbladder and Biliary Tree: Gallbladder sludge is present. Spleen: Unremarkable Pancreas: The pancreas is grossly normal in appearance. Adrenal Glands: Unremarkable Kidneys: Right kidney is unremarkable. Moderate left hydronephrosis. No appreciable obstructing stone. Bladder: Bladder is decompressed with a [place] catheter and cannot be adequately assessed. Bowel: The stomach is grossly normal in appearance. Diverticulosis. Mild inflammatory changes in the left lower quadrant with possible small abscess in the left hemipelvis measuring 5.7 cm. The appendix is not visualized; however, no secondary findings of acute appendicitis identified. Ascites: Absent Lymphadenopathy: No mesenteric, retroperitoneal or periportal lymphadenopathy. Abdominal Wall and Mesentery: Unremarkable. Vasculature: The visualized abdominal aorta is normal in size and caliber. Evaluation of abdominal and pelvic vessels is limited due to lack of intravenous contrast. Pelvic Organs: Unremarkable Musculoskeletal: No aggressive focal bony lesions, acute fractures or dislocation. Degenerative changes of the spine. IMPRESSION: Moderate left hydroureteronephrosis. Suggestion of possible small abscess formation in the left hemipelvis associated with the sigmoid colon measuring 5.7 cm. This may represent site of ureteral obstruction. Clinical correlation advised. Examination is limited secondary to lack of intravenous and oral contrast administration. ATED BY: ANTWAN AHMADI MD DICTATED DATE/TIME: 03/20/25 1004 SIGNED BY: ANTWAN AHMADI MD SIGNED DATE/TIME: 03/20/25 1004 CC: [place] [address] Ph: [phone] DIAGNOSTIC IMAGING Diagnostic Imaging Report : [id number] Signed PATIENT: JIMBO ROSE ACCT: [id number] UNIT: [id number] : 1950 LOC: OVERFLOW ROOM / BED: [address] [place] [address] A AGE / SEX: 74 / F ADM STATUS: ADM IN SERVICE 1243 ORDERING PHYSICIAN: ZIYAD ORTEZ PROCEDURE(s): ABDC - ABDOMEN COMPLETE SONOGRAM REASON: Transaminitis ORDER NUMBER(s): [id number], ACCESSION NUMBER(s): [id number] INDICATION: Transaminitis TECHNIQUE: Multiple real-time sonographic images of the abdomen were obtained. COMPARISON: None FINDINGS: The liver is homogenous in echogenicity. The liver measures 16cm. No intrahepatic biliary ductal dilatation is noted. The gallbladder wall measures 0.2 cm and is unremarkable. No gallstones or sludge is seen. The common duct measures 0.4 cm and is unremarkable. No pericholecystic fluid is noted. The right kidney measures 9cm. No hydronephrosis. The left kidney measures 9cm. No hydronephrosis. The pancreas is not well visualized due to obscuration from bowel gas. The visualized portions of the IVC and aorta are grossly unremarkable. IMPRESSION: Small left hydronephrosis ATED BY: LETITIA VENTURA MD DICTATED DATE/TIME: 03/20/25 143 SIGNED BY: LETITIA VENTURA MD SIGNED DATE/TIME: 03/20/25 143 CC: Labs Test 03/22/25 02:55 03/21/25 05:21 03/20/25 09:34 03/20/25 08:30 Range/Units White Blood Count 12.3 #H 4.4-10.8 10^3/uL Red Blood Count 2.97 L 4.0-5.20 10^6/uL Hemoglobin 8.1 L 12.2-16.2 g/dL Hematocrit 24.7 L 36.0-46.0 % Mean Corpuscular Volume 83.4 80.0-100.0 fL Mean Corpuscular Hemoglobin 27.2 L 28.0-32.0 pg Mean Corpuscular Hemoglobin Concent 32.7 32.0-36.0 g/dL Red Cell Distribution Width 16.5 H 11.8-14.3 % Platelet Count 91 L 140-450 10^3/uL Mean Platelet Volume 7.2 6.9-10.8 fL Neutrophils (%) (Auto) 83.3 H 37.0-80.0 % Lymphocytes (%) (Auto) 6.3 L 10.0-50.0 % Monocytes (%) (Auto) 9.3 0.0-12.0 % Eosinophils (%) (Auto) 0.8 0.0-7.0 % Basophils (%) (Auto) 0.3 0.0-2.0 % Neutrophils # (Auto) 10.2 H 1.6-8.6 10 ^3/uL Lymphocytes # (Auto) 0.8 0.4-5.4 10 ^3/uL Monocytes # (Auto) 1.1 0-1.3 10 ^3/uL Eosinophils # (Auto) 0.1 0-0.8 10 ^3/uL Basophils # (Auto) 0 0-0.2 10 ^3/uL Nucleated Red Blood Cells 0.1 % Sodium Level 129 L 136-145 mmol/L Potassium Level 3.8 3.5-5.1 mmol/L Chloride Level 94 L 98-107 mmol/L Carbon Dioxide Level 22 20-31 mmol/L Anion Gap 13 5-15 Blood Urea Nitrogen 68 H 9-23 mg/dL Creatinine 2.77 H 0.550-1.02 mg/dL Glomerular Filtration Rate Calc 17 >90 mL/min BUN/Creatinine Ratio 24.5 H 10.0-20.0 Serum Glucose 100 74-106 mg/dL Calcium Level 8.3 L 8.7-10.4 mg/dL Magnesium Level 1.6 1.6-2.6 mg/dL Total Bilirubin 1.4 H 0.2-1.0 mg/dL Aspartate Amino Transferase (AST) 347 H <34 U/L Alanine Aminotransferase (ALT) 315 H 7-40 U/L Alkaline Phosphatase 141 H 46-116 U/L Total Protein 6.1 5.7-8.2 g/dL Albumin 3.4 3.2-4.8 g/dL Amylase Level 21 L 30-118 U/L Lipase 19 12-53 U/L Urine Color Colorless Yellow Urine Clarity Turbid H Clear Urine pH 5.0 5.0-9.0 Urine Specific [place] 1.015 1.001-1.035 Urine Protein Negative Negative Urine Ketones Negative Negative Urine Blood Negative Negative /uL Urine Nitrite Negative Negative Urine Bilirubin Negative Negative Urine Urobilinogen Normal Negative mg/dL Urine Leukocyte Esterase 3+ Negative /uL Urine RBC 1 0 - 4 /hpf Urine Microscopic WBC 255 H 0-5 /HPF Urine Squamous Epithelial Cells Few <5 /hpf Urine Bacteria Few H None Seen /hpf Urine Glucose Normal Normal mg/dL Troponin I High Sensitivity 34 </=34 ng/L Test 03/20/25 05:31 03/20/25 05:17 Range/Units Lactic Acid Level 1.2 0.4-2.0 mmol/L POC Glucose 78 70-106 mg/dl Microbiology Date/Time Source Procedure Growth Status 03/21/25 18:00 Urine - Catheterized Urine Culture - Preliminary Resulted 03/20/25 21:52 Nose MRSA Screen - Final Complete Assessment/Plan Problem List: (1) Hydronephrosis (2) Acute on chronic kidney failure (3) Pelvic abscess in female Plan NM renal scan if patient can tolerate otherwise keep tijerina and follow up as outpt medical management of other conditions Plan discussed with: Patient, Other MANOLO ANDERS TANDEM M[employer] STICKER Mar 22, 2025 13:58
--- NOTE | 2025-03-22 15:40 | DVHPN2 ---
Progress Note - Dictate Date Seen: Mar 22, 2025 Has the PT tested + for MRSA If YES, has PT been informed?: No Medical Necessity Reason Pt with a Central, PICC or Fol: Yes vital signs Vital Sign Date Time Temp Pulse Resp B/P (MAP) Pulse Ox O2 Delivery O2 Flow Rate FiO2 03/22/25 14:01 134 17 110/49 (69) 95 03/22/25 14:00 Nasal Cannula* 3 32 03/22/25 12:01 99.2 99.2 Total Intake and Output 03/21/25 03/21/25 03/22/25 15:00 23:00 07:00 Intake Total 311.25 ml 506.25 ml 787.50 ml Output Total 400 ml 300 ml Balance 311.25 ml 106.25 ml 487.50 ml medications Current Medications Medications Dose Ordered Sig/Sravan Route Start Time Stop Time Status Last Admin Dose Admin Norepinephrine Bitartrate 250 ml @ 3.75 mls/hr Q24H IV 03/20/25 07:45 03/22/25 10:45 41.25 MLS/HR Acetaminophen/ Hydrocodone Bitart 1 tab Q4HP PRN PO 03/20/25 12:15 03/21/25 21:10 1 TAB Ondansetron HCl 4 mg Q4HP PRN IV 03/20/25 12:15 Docusate Sodium 100 mg BIDPRN PRN PO 03/20/25 12:15 Acetaminophen 650 mg Q6HP PRN PO 03/20/25 12:15 03/21/25 10:08 650 MG Nitroglycerin 0.4 mg Q5MINP PRN SL 03/20/25 12:15 Morphine Sulfate 2 mg Q30M PRN IV 03/20/25 12:15 Allopurinol 100 mg DAILY PO 03/21/25 10:00 03/22/25 10:40 100 MG Apixaban 2.5 mg BID PO 03/20/25 22:00 03/22/25 10:39 2.5 MG Cilostazol 100 mg BID PO 03/20/25 22:00 03/22/25 10:41 100 MG Patient Own Medication 1 tab DAILY PO 03/21/25 10:00 UNV Amiodarone HCl 200 mg BID PO 03/20/25 22:00 03/22/25 10:38 200 MG Patient Own Medication 1 tab DAILY PO 03/21/25 10:00 UNV Gabapentin 300 mg DAILY PO 03/21/25 10:00 03/22/25 10:38 300 MG Levothyroxine Sodium 112 mcg DAILY PO 03/21/25 10:00 03/22/25 10:40 112 MCG Levothyroxine Sodium 25 mcg DAILY PO 03/21/25 10:00 03/22/25 10:40 25 MCG Spironolactone 50 mg DAILY PO 03/21/25 10:00 03/22/25 10:39 50 MG Ceftriaxone Sodium 50 ml @ 100 mls/hr DAILY@09 IV 03/21/25 09:00 03/22/25 10:38 100 MLS/HR Diphenhydramine HCl 50 mg [id number] PRN PO 03/21/25 16:45 03/21/25 22:57 50 MG Albuterol 2.5 mg Q6HR NEB 03/21/25 18:00 03/22/25 11:29 2.[address] [place] 0.5 mg Q6HWA NEB 03/21/25 18:00 03/22/25 11:29 0.5 MG Patient Own Medication 1 tab BID PO 03/21/25 22:00 03/22/25 10:41 1 TAB laboratory and microbiology Laboratory Tests 03/22/25 02:55 Test 03/22/25 02:55 Range/Units Serum Glucose 100 74-106 mg/dL Assessment/Plan SCOT hypoxemia COPD pneumonia left hydronephrosis septic shock pt seen and examined in the ER events hemodynamics improving on Levophed drip at 6 mcg appears edematous +3 labs and imaging reviewed CT findings noted ?pelvic mass non tender to palpation management plan 02 bronchodilators for copd-stable levophed as needed\ keep MAP above 65 mm Hg continue antibiotics f/u cultures f/up with urology and gen sx gi and dvt proph crit care time 35 min Plan discussed with: Patient CC Plasma Assessment Blood Product Administration S: [id number] MD Mar 22, 2025 15:40
[2025-03-23] VITALS (97 sets, daily range): BP systolic 83–132; BP diastolic 30–67; PULSE 92–127; RESP 10–24; TEMP 97.8–98.8; O2SAT 94–99
[2025-03-23 04:40] LABS: Hemoglobin 7.6 g/dL (12.2-16.2); Nucleated Red Blood Cells % 0.0 %
[2025-03-23 04:42] LABS: Hematocrit 22.8 % (36.0-46.0); Mean Corpuscular Hemoglobin 27.4 pg (28.0-32.0); Mean Corpuscular Volume 82.7 fL (80.0-100.0)
[2025-03-23 04:52] LABS: Anion Gap 11 (5-15); Carbon Dioxide 24 mmol/L (20-31)
[2025-03-23 04:57] LABS: Glucose 99 mg/dL (74-106)
[2025-03-23 04:58] LABS: BUN/Creatinine Ratio 23.9 (10.0-20.0); Magnesium 1.6 mg/dL (1.6-2.6)
[2025-03-23 05:10] LABS: Blood Urea Nitrogen 62 mg/dL (9-23); Calcium 8.3 mg/dL (8.7-10.4); Chloride 96 mmol/L (98-107); Potassium 3.3 mmol/L (3.5-5.1); Sodium 131 mmol/L (136-145)
[2025-03-23 05:15] LABS: Rapid Strep A Screen-Throat Negative
[2025-03-23 05:28] LABS: COVID19 ANTIGEN SOFIA FIA NEGATIVE (NEGATIVE)
--- NOTE | 2025-03-23 05:46 | DVH ---
EXAM: XR Chest, 1 View CLINICAL INDICATION: Pain TECHNIQUE: Frontal view of the chest. COMPARISON: No relevant prior studies available. FINDINGS: LUNGS AND PLEURAL SPACES: See below. HEART: Cardiomegaly with pulmonary congestion and edema. Superimposed pneumonia cannot be excluded. MEDIASTINUM: Unremarkable. Normal mediastinal contour. BONES/JOINTS: Unremarkable. No acute fracture. TUBES, LINES AND DEVICES: Right internal jugular central venous catheter tip in the superior vena ca va. IMPRESSION: Cardiomegaly with pulmonary congestion and edema. Superimposed pneumonia cannot be excluded.
[2025-03-23] MEDS: MAGNESIUM SULFATE 1GM/100ML 100 ML IV ONE (06:03)
[2025-03-23] MEDS: POTASSIUM CHL 20MEQ/100ML 100 ML IV ONE (06:06)
[2025-03-23] MEDS: THROAT LOZENGES(CEPASTAT) MT PRN (09:38)
--- NOTE | 2025-03-23 13:55 | DVHPN2 ---
Progress Note - Dictate Date Seen: Mar 23, 2025 Has the PT tested + for MRSA If YES, has PT been informed?: No Medical Necessity Reason Pt with a Central, PICC or Fol: Yes vital signs Vital Sign Date Time Temp Pulse Resp B/P (MAP) Pulse Ox O2 Delivery O2 Flow Rate FiO2 03/23/25 11:23 105 14 99 03/23/25 11:17 Nasal Cannula* 3 32 03/23/25 10:30 03/23/25 04:00 97.8 97.8 Total Intake and Output 03/22/25 03/22/25 03/23/25 15:00 23:00 07:00 Intake Total 376.25 ml 896.25 ml 920 ml Output Total 525 ml 700 ml Balance 376.25 ml 371.25 ml 220 ml medications Current Medications Medications Dose Ordered Sig/Sravan Route Start Time Stop Time Status Last Admin Dose Admin Norepinephrine Bitartrate 250 ml @ 3.75 mls/hr Q24H IV 03/20/25 07:45 03/23/25 07:37 30 MLS/HR Acetaminophen/ Hydrocodone Bitart 1 tab Q4HP PRN PO 03/20/25 12:15 03/21/25 21:10 1 TAB Ondansetron HCl 4 mg Q4HP PRN IV 03/20/25 12:15 Docusate Sodium 100 mg BIDPRN PRN PO 03/20/25 12:15 Acetaminophen 650 mg Q6HP PRN PO 03/20/25 12:15 03/23/25 02:31 650 MG Nitroglycerin 0.4 mg Q5MINP PRN SL 03/20/25 12:15 Morphine Sulfate 2 mg Q30M PRN IV 03/20/25 12:15 Allopurinol 100 mg DAILY PO 03/21/25 10:00 03/23/25 09:15 100 MG Apixaban 2.5 mg BID PO 03/20/25 22:00 03/23/25 09:13 2.5 MG Cilostazol 100 mg BID PO 03/20/25 22:00 03/23/25 09:15 100 MG Patient Own Medication 1 tab DAILY PO 03/21/25 10:00 UNV Amiodarone HCl 200 mg BID PO 03/20/25 22:00 03/23/25 09:13 200 MG Patient Own Medication 1 tab DAILY PO 03/21/25 10:00 UNV Gabapentin 300 mg DAILY PO 03/21/25 10:00 03/23/25 09:14 300 MG Levothyroxine Sodium 112 mcg DAILY PO 03/21/25 10:00 03/23/25 09:14 112 MCG Levothyroxine Sodium 25 mcg DAILY PO 03/21/25 10:00 03/23/25 09:14 25 MCG Spironolactone 50 mg DAILY PO 03/21/25 10:00 03/22/25 10:39 50 MG Ceftriaxone Sodium 50 ml @ 100 mls/hr DAILY@09 IV 03/21/25 09:00 03/23/25 09:12 100 MLS/HR Diphenhydramine HCl 50 mg [id number] PRN PO 03/21/25 16:45 03/21/25 22:57 50 MG Albuterol 2.5 mg Q6HR NEB 03/21/25 18:00 03/23/25 11:17 2.5 MG Ipratropium [place] 0.5 mg Q6HWA NEB 03/21/25 18:00 03/23/25 11:17 0.5 MG Patient Own Medication 1 tab BID PO 03/21/25 22:00 03/23/25 09:12 1 TAB Throat Lozenges 1 liv Q2HP PRN MT 03/23/25 04:00 03/23/25 09:38 1 LIV laboratory and microbiology Laboratory Tests 03/23/25 03:40 Test 03/23/25 03:40 Range/Units Serum Glucose 99 74-106 mg/dL Assessment/Plan SCTO hypoxemia COPD pneumonia left hydronephrosis septic shock pt seen and examined in the ICU events Remains on Levophed drip at 16 mics On oxygen by face mask Vital signs stable Labs and imaging studies reviewed BUN and creatinine elevated Some urine output noted workup per Nephrology with perfusion studies CT findings noted ?pelvic mass non tender to palpation management plan 02 bronchodilators for copd-stable levophed as needed\ keep MAP above 65 mm Hg continue antibiotics f/u cultures f/up with urology/urology and gen sx gi and dvt proph crit care time 35 min Dietary Evaluation Review Comments: Renal Specific 60g CCHO-60 Cardiac Diet d/t SCOT over CKD and low GFR Expected Outcomes/Goals: less uremic symptoms, better weight management Plan discussed with: Patient CC Plasma Assessment Blood Product Administration S: [id number] MD Mar 23, 2025 13:55
[2025-03-23] MEDS: FUROSEMIDE 40 MG/4 ML VIAL IV ONE (13:57)
--- NOTE | 2025-03-23 14:16 | DVHCONRES ---
Date Seen: Mar 23, 2025 Resident Creating Document: SONIA LE RESIDENT Referring Physician Joel Herbert MD History of Present Illness Patient is 74 years old female with a past medical history of COPD on NC O2 3 L/min at home, CHF, hypertension, hyperlipidemia, diabetes mellitus type 2, CKD came with a complaint of abdominal pain associated with nausea and vomiting for last 2-3 days. In the ER patient was found to have anemia, hypotensive and septic. Initial lab workup revealed severe anemia with a hemoglobin 6.7, thrombocytopenia with platelet 27, hyponatremia sodium 124, elevated serum BUN 71, creatinine 3.29, lactic acid 1.2, elevated AST 143, ALT 111, alkaline phosphatase 120. Urinalysis revealed leukocyte esterase 3+, WBC 255, bacteria few. CT abdomen and pelvis revealed-Moderate left hydroureteronephrosis. Suggestion of possible small abscess formation in the left hemipelvis associated with the sigmoid colon measuring 5.7 cm. This may represent site of ureteral obstruction. Patient was seen today at bedside in ICU Patient reported pain has improved Leukocytosis resolved Patient had 2 units blood transfusion post admission Thrombocytopenia with platelet 108 Hypokalemia replenished Patient is seen by surgery recommendation reviewed and appreciated Patient was seen by Urology, urology recommended-NM renal scan if patient can tolerate Family History: Cerebrovascular accident (CVA) G8 MOTHER Chronic obstructive pulmonary disease FH: CHF (congestive heart failure) G8 MOTHER Hypertension G8 MOTHER Allergies: Coded Allergies: Zinc Oxide (Verified Allergy, Mild, 03/07/25) Sulfa Antibiotics (Verified Allergy, Unknown, 01/16/22) Home Meds Active Scripts Prednisone (Prednisone) 20 Mg Tab, 20 MG PO BID for 5 Days, #10 TAB Prov:VÍCTOR HAMILTON [employer] 01/20/22 Reported Medications Amiodarone HCl (Amiodarone HCl) 200 Mg Tab, 1 TAB PO BID 03/20/25 Levothyroxine Sodium (Levothyroxine Sodium) 137 Mcg Tab, 1 TAB PO DAILY 03/20/25 Ropinirole Hydrochloride (Ropinirole Hcl) 0.25 Mg Tab, 1 TAB PO BID for 90 Days, #180 02/26/25 Spironolactone (Spironolactone) 50 Mg Tab, 1 TAB PO DAILY for 90 Days, #90 02/26/25 Meclizine HCl (Meclizine Hydrochloride) 25 Mg Tab, 1 TAB PO DAILY PRN for 90 Days, #90 02/26/25 Midodrine Hcl (Midodrine Hcl) 10 Mg Tab, 1 TAB PO BID for 90 Days, #180 02/26/25 Potassium Chloride (Potassium Chloride ER) 20 Meq Tab, 1 TAB PO BID for 90 Days, #180 02/26/25 Fluticasone-Salmeterol (Fluticasone Propionate/SA 500-50 Mcg/Dose) 1 Aer Aer, 1 PUFF PO BID for 30 Days, #60 02/26/25 Lactulose (Lactulose) 10 Gm/15 Ml Yoselyn, 15 ML PO DAILY for 30 Days, #450 02/26/25 Gabapentin (Gabapentin) 300 Mg Cap, 300 MG PO BID 11/08/24 Pantoprazole Sodium Sesquihydr (Pantoprazole Sodium) 40 Mg Tab, 1 TAB PO DAILY 11/08/24 Atorvastatin Calcium (ATORVASTATIN CALCIUM) 20 Mg Tab, 1 TAB PO DAILY 11/08/24 Bumetanide (Bumetanide) 2 Mg Tab, 1 TAB PO BID 11/08/24 Apixaban Base (ELIQUIS) 2.5 Mg Tab, 1 TAB PO BID 11/08/24 Loperamide HCl (Imodium A-D) 1 Mg/7.5 Ml Liq, 1 MG PO, LIQ 01/17/22 Clobetasol Propionate (Clobetasol Propionate) 0.05 % Oin, 1 APPLIC TOP BID, #15 GRAMS 01/17/22 Hydroxychloroquine Sulfate (PLAQUENIL) 200 Mg Tab, 1 TAB PO DAILY, #180 TAB 3 Refills 01/17/22 Furosemide (Furosemide) 40 Mg Tab, 1 TAB PO DAILY, #30 TAB 5 Refills 01/17/22 Fluticasone-Salmeterol (Advair Diskus 500/50) 1 Puff Ih, 1 PUFF INH BID, #1 INHALER 5 Refills 01/17/22 Albuterol Sulfate (VENTOLIN MDI) 90 Mcg Ih, 90 MCG IN Q6HP for 30 Days, MCG 01/17/22 Allopurinol (Allopurinol) 100 Mg Tab, 100 MG PO DAILY for 30 Days, MG 01/17/22 Amlodipine Besylate (Amlodipine Besylate) 5 Mg Tab, 5 MG PO DAILY for 30 Days, MG 01/17/22 Pantoprazole Sodium (PANTOPRAZOLE SODIUM) 40 Mg Inj, 40 MG IV DAILY, INJ 01/17/22 Cilostazol (Cilostazol) 100 Mg Tab, 100 MG PO BID for 30 Days, MG 01/17/22 Methocarbamol (Methocarbamol) 750 Mg Tab, 750 MG PO BID, TAB 01/17/22 Sotalol Hcl (Sotalol Hcl) 80 Mg Tab, 0.5 TAB PO BID, #60 TAB 5 Refills 01/17/22 Meclizine HCl (Meclizine 25) 25 Mg Tab, 25 MG PO BID, TAB 01/17/22 Discontinued Reported Medications Allopurinol (Allopurinol) 100 Mg Tab, 1 TAB PO DAILY 11/08/24 Atorvastatin Calcium (ATORVASTATIN CALCIUM) 20 Mg Tab, 1 TAB PO DAILY, #30 TAB 5 Refills 01/17/22 Gabapentin (Gabapentin) 100 Mg Cap, 400 MG PO BID for 30 Days, MG 01/17/22 Discontinued Scripts Apixaban Base (ELIQUIS) 5 Mg Tab, 5 MG PO BID for 30 Days, #60 TAB Prov:VÍCTOR HAMILTON [employer] 01/20/22 Doxycycline (Monohydrate) (Doxycycline) 100 Mg Tab, 100 MG PO BID for 7 Days, #14 TAB Prov:VÍCTOR HAMILTON [employer]TE[employer] 01/20/22 Current Medications Current Medications Medications (Trade) Dose Ordered Sig/Sravan Route PRN Reason Start Time Stop Time Status Last Admin Throat Lozenges (Cepastat Lozenges) 1 adolfo Q2HP PRN MT FOR SORE THROAT 03/23/25 04:00 03/23/25 09:38 Vital Signs Vital Signs Date Time Temp Pulse Resp B/P (MAP) Pulse Ox O2 Delivery O2 Flow Rate FiO2 03/23/25 14:02 99.3 03/23/25 13:57 117/57 03/23/25 12:00 13 97 Nasal Cannula* 3 32 03/23/25 12:00 106 Physical Exam General examination- awake, alert HEENT- PEERLA, no acute nasal discharge Cardiovascular- S1-S2 audible, rate and rhythm regular, no murmur Respiratory- CTAB, no wheeze or rhonchi Gastrointestinal-lower abdominal wall tenderness+, bowel sound+. Nondistended Musculoskeletal-no acute joint swelling or tenderness or redness Lower extremity- no leg edema Neurological- cranial nerves intact, no acute dysarthria or dysphagia Psychiatry- denies depression or SI or HI Skin- no acute rash or purpura Labs/Diagnostic Data Labs Test 03/23/25 04:30 03/23/25 04:20 03/23/25 03:40 03/21/25 05:21 Range/Units Group A Streptococcus Rapid Negative SARS-CoV-2 Antigen (Rapid) Negative NEGATIVE White Blood Count 8.5 # 4.4-10.8 10^3/uL Red Blood Count 2.76 L 4.0-5.20 10^6/uL Hemoglobin 7.6 L 12.2-16.2 g/dL Hematocrit 22.8 L 36.0-46.0 % Mean Corpuscular Volume 82.7 80.0-100.0 fL Mean Corpuscular Hemoglobin 27.4 L 28.0-32.0 pg Mean Corpuscular Hemoglobin Concent 33.2 32.0-36.0 g/dL Red Cell Distribution Width 16.6 H 11.8-14.3 % Platelet Count 108 L 140-450 10^3/uL Mean Platelet Volume 7.0 6.9-10.8 fL Neutrophils (%) (Auto) 81.0 H 37.0-80.0 % Lymphocytes (%) (Auto) 7.3 L 10.0-50.0 % Monocytes (%) (Auto) 10.0 0.0-12.0 % Eosinophils (%) (Auto) 1.4 0.0-7.0 % Basophils (%) (Auto) 0.3 0.0-2.0 % Neutrophils # (Auto) 6.9 1.6-8.6 10 ^3/uL Lymphocytes # (Auto) 0.6 0.4-5.4 10 ^3/uL Monocytes # (Auto) 0.8 0-1.3 10 ^3/uL Eosinophils # (Auto) 0.1 0-0.8 10 ^3/uL Basophils # (Auto) 0 0-0.2 10 ^3/uL Nucleated Red Blood Cells 0.0 % Sodium Level 131 L 136-145 mmol/L Potassium Level 3.3 L 3.5-5.1 mmol/L Chloride Level 96 L 98-107 mmol/L Carbon Dioxide Level 24 20-31 mmol/L Anion Gap 11 5-15 Blood Urea Nitrogen 62 H 9-23 mg/dL Creatinine 2.59 H 0.550-1.02 mg/dL Glomerular Filtration Rate Calc 19 >90 mL/min BUN/Creatinine Ratio 23.9 H 10.0-20.0 Serum Glucose 99 74-106 mg/dL Calcium Level 8.3 L 8.7-10.4 mg/dL Magnesium Level 1.6 1.6-2.6 mg/dL Total Bilirubin 1.4 H 0.2-1.0 mg/dL Aspartate Amino Transferase (AST) 347 H <34 U/L Alanine Aminotransferase (ALT) 315 H 7-40 U/L Alkaline Phosphatase 141 H 46-116 U/L Total Protein 6.1 5.7-8.2 g/dL Albumin 3.4 3.2-4.8 g/dL Amylase Level 21 L 30-118 U/L Lipase 19 12-53 U/L Test 03/20/25 09:34 03/20/25 08:30 03/20/25 05:31 03/20/25 05:17 Range/Units Urine Color Colorless Yellow Urine Clarity Turbid H Clear Urine pH 5.0 5.0-9.0 Urine Specific [place] 1.015 1.001-1.035 Urine Protein Negative Negative Urine Ketones Negative Negative Urine Blood Negative Negative /uL Urine Nitrite Negative Negative Urine Bilirubin Negative Negative Urine Urobilinogen Normal Negative mg/dL Urine Leukocyte Esterase 3+ Negative /uL Urine RBC 1 0 - 4 /hpf Urine Microscopic WBC 255 H 0-5 /HPF Urine Squamous Epithelial Cells Few <5 /hpf Urine Bacteria Few H None Seen /hpf Urine Glucose Normal Normal mg/dL Troponin I High Sensitivity 34 </=34 ng/L Lactic Acid Level 1.2 0.4-2.0 mmol/L POC Glucose 78 70-106 mg/dl Microbiology Date/Time Source Procedure Growth Status 03/21/25 18:00 Urine - Catheterized Urine Culture - Preliminary Resulted 03/20/25 21:52 Nose MRSA Screen - Final Complete Assessment Assessment and plan Intractable abdominal pain Suspected sigmoid colon abscess Transaminitis Sepsis Severe anemia Thrombocytopenia Small left hydronephrosis Events Patient reported pain has improved Leukocytosis resolved Patient had 2 units blood transfusion post admission Thrombocytopenia with platelet 108 Hypokalemia replenished Patient is seen by surgery recommendation reviewed and appreciated Patient was seen by Urology, urology recommended-NM renal scan if patient can tolerate Assessment and plan NPO Ordered IV metronidazole Recommended for IR guided drainage of the abscess of sigmoid colon IV antibiotic ceftriaxone IV pantoprazole Avoid dehydration and constipation Surgery input appreciated Other treatment as per primary care team Plan discussed with Dr. Roxi Griffin , nursing staff, Total time spent on patient evaluation, chart review, assessment and plan, discussion discussion >35 minutes Plan discussed with: Patient, Other (RN) SONIA LE RESIDENT Mar 23, 2025 14:16
--- NOTE | 2025-03-23 15:29 | DVH ---
Procedure: NE NM MAG3 RENAL SCAN Exam Date: 03/23/2025 12:35 PM. Clinical History: Hydronephrosis r/o obstruction Comparison Study: None Nuclear Medicine Renal Scan with Lasix. Technique: Following the intravenous administration of mCi of technetium 99m labeled MAG-3 , flow im ages were acquired in one second intervals. This was followed by functional imaging of the kidneys in the posterior projection which were obtained at 20 seconds intervals reconstructed into 2 minute frames for a total of 34 minutes. 40 mg of Lasix were given IV at the 10 minute suzie. Flow curves and functional renogram curves were generated. Split function data were generated from the first th ree minutes of the study. Findings: The flow study reveals prompt visualization of both kidneys with normal flow bilaterally. The kidneys are normal size, location and contour. The functional data was obtained with the renal pelvis included in the region of interest: Left: Peak time on the left is 20 minutes. Peak to 1/2 peak on the left is 237 minutes. Diuretic T 1/2 on the left is 237 minutes. Right: Peak time on the right is 14 minutes. Peak to 1/2 peak on the right is 99 minutes. Diuretic T 1/2 on the right is 99 minutes. Split function is 40 % on the left and 60 % on the right. IMPRESSION: Bilateral renal obstruction is present which is not response to Lasix administration suggesting that the kidney may be minimally functional.
[2025-03-24] VITALS (87 sets, daily range): BP systolic 108–139; BP diastolic 38–76; PULSE 102–142; RESP 15–25; TEMP 97.8–99.1; O2SAT 94–99
[2025-03-24 04:30] LABS: Mean Corpuscular Hemoglobin 27.3 pg (28.0-32.0); Nucleated Red Blood Cells % 0.0 %
[2025-03-24 04:33] LABS: Hematocrit 23.6 % (36.0-46.0); Hemoglobin 7.9 g/dL (12.2-16.2); Mean Corpuscular Volume 82.2 fL (80.0-100.0)
[2025-03-24 04:49] LABS: Calcium 9.4 mg/dL (8.7-10.4); Chloride 100 mmol/L (98-107)
[2025-03-24 04:50] LABS: Anion Gap 9 (5-15); Carbon Dioxide 26 mmol/L (20-31)
[2025-03-24 04:55] LABS: Glucose 88 mg/dL (74-106)
[2025-03-24 04:56] LABS: BUN/Creatinine Ratio 25.4 (10.0-20.0); Magnesium 1.6 mg/dL (1.6-2.6)
[2025-03-24 04:57] LABS: Blood Urea Nitrogen 54 mg/dL (9-23); Potassium 3.4 mmol/L (3.5-5.1); Sodium 135 mmol/L (136-145)
[2025-03-24] MEDS: MAGNESIUM SULFATE 1GM/100ML 100 ML IV ONE (05:38)
[2025-03-24] MEDS: POTASSIUM CHL 20MEQ/50ML 50 ML IV ONE (05:53)
[2025-03-24] MEDS: POTASSIUM CHL 20MEQ/100ML 100 ML IV ONE ×2 (05:54→22:08)
[2025-03-24] MEDS: PIPERACILLIN-TAZOB 3.375GM 100 ML IV ONE (11:40)
[2025-03-24] MEDS: ONDANSETRON HCL 4 MG/2 ML VIAL IV PRN (11:41)
--- NOTE | 2025-03-24 12:02 | DVHPN2 ---
Progress Note Date Seen: Mar 24, 2025 Resident Creating Document: SONIA LE RESIDENT Has the PT tested + for MRSA If YES, has PT been informed?: No Medical Necessity Reason Pt with a Central, PICC or Fol: Yes Subjective Review of Systems Patient was seen today at bedside Denied any abdominal pain Urine culture revealed E coli ESBL, Klebsiella pneumoniae ESBL no Nausea vomiting Patient has leukocytosis H&H stable Thrombocytopenia improved Hypokalemia replenished Serum creatinine trending down slowly Objective vital signs Vital Sign Date Time Temp Pulse Resp B/P (MAP) Pulse Ox O2 Delivery O2 Flow Rate FiO2 03/24/25 11:49 117 18 99 03/24/25 11:43 Nasal Cannula* 3 32 03/24/25 11:40 124/69 03/24/25 07:45 98.0 98.0 Total Intake and Output 03/23/25 03/23/25 03/24/25 15:00 23:00 07:00 Intake Total 290 ml 793.75 ml 431.25 ml Output Total 1700 ml 1600 ml Balance 290 ml -906.25 ml -1168.75 ml medications Current Medications Medications Dose Ordered Sig/Sravan Route Start Time Stop Time Status Last Admin Dose Admin Norepinephrine Bitartrate 250 ml @ 3.75 mls/hr Q24H IV 03/20/25 07:45 03/24/25 11:40 30 MLS/HR Acetaminophen/ Hydrocodone Bitart 1 tab Q4HP PRN PO 03/20/25 12:15 03/21/25 21:10 1 TAB Ondansetron HCl 4 mg Q4HP PRN IV 03/20/25 12:15 03/24/25 11:41 4 MG Docusate Sodium 100 mg BIDPRN PRN PO 03/20/25 12:15 Acetaminophen 650 mg Q6HP PRN PO 03/20/25 12:15 03/23/25 14:02 650 MG Nitroglycerin 0.4 mg Q5MINP PRN SL 03/20/25 12:15 Morphine Sulfate 2 mg Q30M PRN IV 03/20/25 12:15 Allopurinol 100 mg DAILY PO 03/21/25 10:00 03/23/25 09:15 100 MG Apixaban 2.5 mg BID PO 03/20/25 22:00 03/24/25 11:40 2.5 MG Cilostazol 100 mg BID PO 03/20/25 22:00 03/23/25 09:15 100 MG Patient Own Medication 1 tab DAILY PO 03/21/25 10:00 UNV Amiodarone HCl 200 mg BID PO 03/20/25 22:00 03/24/25 11:41 200 MG Patient Own Medication 1 tab DAILY PO 03/21/25 10:00 UNV Gabapentin 300 mg DAILY PO 03/21/25 10:00 03/23/25 09:14 300 MG Levothyroxine Sodium 112 mcg DAILY PO 03/21/25 10:00 03/23/25 09:14 112 MCG Levothyroxine Sodium 25 mcg DAILY PO 03/21/25 10:00 03/23/25 09:14 25 MCG Spironolactone 50 mg DAILY PO 03/21/25 10:00 03/22/25 10:39 50 MG Diphenhydramine HCl 50 mg [id number] PRN PO 03/21/25 16:45 03/21/25 22:57 50 MG Albuterol 2.5 mg Q6HR NEB 03/21/25 18:00 03/24/25 11:43 2.5 MG Ipratropium [place] 0.5 mg Q6HWA NEB 03/21/25 18:00 03/24/25 11:43 0.5 MG Patient Own Medication 1 tab BID PO 03/21/25 22:00 03/23/25 09:12 1 TAB Throat Lozenges 1 liv Q2HP PRN MT 03/23/25 04:00 03/23/25 14:52 1 LIV Piperacillin Sod/ Tazobactam Sod 100 ml @ 25 mls/hr Q8HR IV 03/24/25 14:00 laboratory and microbiology Laboratory Tests 03/24/25 03:30 Test 03/24/25 03:30 Range/Units Serum Glucose 88 74-106 mg/dL Microbiology Date/Time Source Procedure Growth Status 03/23/25 04:30 Throat Nose/Throat Culture - Preliminary Resulted 03/21/25 18:00 Urine - Catheterized Urine Culture - Final Escherichia coli - ESBL Klebsiella pneumoniae - ESBL Complete 03/20/25 21:52 Nose MRSA Screen - Final Complete Problem List/Assessment/Plan Problem List/Assessment/Plan Assessment and plan Intractable abdominal pain Suspected sigmoid colon abscess Transaminitis Sepsis Severe anemia Thrombocytopenia Small left hydronephrosis Events Denied any abdominal pain Urine culture revealed E coli ESBL, Klebsiella pneumoniae ESBL no Nausea vomiting Patient has leukocytosis H&H stable Thrombocytopenia improved Hypokalemia replenished Serum creatinine trending down slowly Assessment and plan NPO Ordered IV antibiotic Zosyn Recommended for IR guided drainage of the abscess of sigmoid colon IV pantoprazole Avoid dehydration and constipation Surgery input appreciated Other treatment as per primary care team Plan discussed with Dr. Roxi Griffin , nursing staff, Total time spent on patient evaluation, chart review, assessment and plan, discussion discussion >35 minutes Plan discussed with: Patient, Other (RN) Plan discussed with: Patient, Other (RN) My Orders My Orders Orders - SONIA LE Procedure Category Date Status Time Piperacillin-Tazob PHA 03/24/25 In Process 3.375gm (Zosyn 3.375g 14:00 Communication Order ORDERS 03/24/25 Transmitted 10:58 Dietary Evaluation Review Comments: Renal Specific 60g CCHO-60 Cardiac Diet d/t SCOT over CKD and low GFR Expected Outcomes/Goals: less uremic symptoms, better weight management CC Plasma Assessment Blood Product Administration S: [id number] SONIA LE RESIDENT Mar 24, 2025 12:02
[2025-03-24] MEDS: PIPERACILLIN-TAZOB 3.375GM 100 ML IV SCH (14:23)
[2025-03-24] MEDS: FUROSEMIDE 40 MG/4 ML VIAL IV ONE (16:43)
[2025-03-24 18:17] LABS: Base Excess -1.3 mmol/L (-2.0-3.0)
--- NOTE | 2025-03-24 19:17 | DVH ---
CHEST RADIOGRAPH Indication: SOB Technique: Single frontal view of the chest was obtained Comparison: XY CHEST PORTABLE on DOS: 03/23/25, XY CHEST PORTABLE on DOS: 03/22/25 FINDINGS: Lines and Tubes: Stable right IJ central line. Lungs and Pleura: Pulmonary vascular congestion. Worsening right lower lung airspace disease. Sugges tion of small bilateral pleural effusions. No pneumothorax. Cardiomediastinal contours: Unchanged Bones: No acute osseous abnormality. IMPRESSION: Worsening right lower lung airspace disease. Suggestion of small bilateral pleural effusions.
--- NOTE | 2025-03-24 21:40 | DVHINCON2 ---
Date of service: Mar 24, 2025 History of Present Illness HPI Patient is a 74-year-old female who was admitted on March 20, 2025 for abdominal pain/nausea/vomiting. She is admitted to ICU for septic shock. On March 24, 2025, cardiology was involved for cardiac aspects of care. Patient is known to our practice from before and previous admissions. She is known to have significant alcohol abuse (drinks whiskey every day) and also history of pulmonary hypertension/type 2 pulmonary hypertension, diastolic heart failure. Does have poor functional capacity and is bed-bound. Is significantly morbidly obese. Does have baseline history of atrial fibrillation and is on Eliquis as outpatient. Is found to have septic shock and possible pelvic abscess. Is seen by surgery/Urology/pulmonary/GI. Denies chest pains. Denies palpitations. Is noncompliant with medication and followups. While being managed in ICU was found to have atrial fibrillation with RVR. 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 She has had multiple surgeries in the bilateral feet. She also has history of COPD/asthma with chronic respiratory failure (on home oxygen). Home Meds Active Scripts Prednisone (Prednisone) 20 Mg Tab, 20 MG PO BID for 5 Days, #10 TAB Prov:VÍCTOR HAMILTON [employer]MER 01/20/22 Reported Medications Amiodarone HCl (Amiodarone HCl) 200 Mg Tab, 1 TAB PO BID 03/20/25 Levothyroxine Sodium (Levothyroxine Sodium) 137 Mcg Tab, 1 TAB PO DAILY 03/20/25 Ropinirole Hydrochloride (Ropinirole Hcl) 0.25 Mg Tab, 1 TAB PO BID for 90 Days, #180 02/26/25 Spironolactone (Spironolactone) 50 Mg Tab, 1 TAB PO DAILY for 90 Days, #90 02/26/25 Meclizine HCl (Meclizine Hydrochloride) 25 Mg Tab, 1 TAB PO DAILY PRN for 90 Days, #90 02/26/25 Midodrine Hcl (Midodrine Hcl) 10 Mg Tab, 1 TAB PO BID for 90 Days, #180 25 Potassium Chloride (Potassium Chloride ER) 20 Meq Tab, 1 TAB PO BID for 90 Days, #180 25 Fluticasone-Salmeterol (Fluticasone Propionate/SA 500-50 Mcg/Dose) 1 Aer Aer, 1 PUFF PO BID for 30 Days, #60 02/26/25 Lactulose (Lactulose) 10 Gm/15 Ml Yoselyn, 15 ML PO DAILY for 30 Days, #450 02/26/25 Gabapentin (Gabapentin) 300 Mg Cap, 300 MG PO BID 11/08/24 Pantoprazole Sodium Sesquihydr (Pantoprazole Sodium) 40 Mg Tab, 1 TAB PO DAILY 11/08/24 Atorvastatin Calcium (ATORVASTATIN CALCIUM) 20 Mg Tab, 1 TAB PO DAILY 11/08/24 Bumetanide (Bumetanide) 2 Mg Tab, 1 TAB PO BID 11/08/24 Apixaban Base (ELIQUIS) 2.5 Mg Tab, 1 TAB PO BID 11/08/24 Loperamide HCl (Imodium A-D) 1 Mg/7.5 Ml Liq, 1 MG PO, LIQ 01/17/22 Clobetasol Propionate (Clobetasol Propionate) 0.05 % Oin, 1 APPLIC TOP BID, #15 GRAMS 01/17/22 Hydroxychloroquine Sulfate (PLAQUENIL) 200 Mg Tab, 1 TAB PO DAILY, #180 TAB 3 Refills 01/17/22 Furosemide (Furosemide) 40 Mg Tab, 1 TAB PO DAILY, #30 TAB 5 Refills 01/17/22 Fluticasone-Salmeterol (Advair Diskus 500/50) 1 Puff Ih, 1 PUFF INH BID, #1 INHALER 5 Refills 01/17/22 Albuterol Sulfate (VENTOLIN MDI) 90 Mcg Ih, 90 MCG IN Q6HP for 30 Days, MCG 01/17/22 Allopurinol (Allopurinol) 100 Mg Tab, 100 MG PO DAILY for 30 Days, MG 01/17/22 Amlodipine Besylate (Amlodipine Besylate) 5 Mg Tab, 5 MG PO DAILY for 30 Days, MG 01/17/22 Pantoprazole Sodium (PANTOPRAZOLE SODIUM) 40 Mg Inj, 40 MG IV DAILY, INJ 01/17/22 Cilostazol (Cilostazol) 100 Mg Tab, 100 MG PO BID for 30 Days, MG 01/17/22 Methocarbamol (Methocarbamol) 750 Mg Tab, 750 MG PO BID, TAB 01/17/22 Sotalol Hcl (Sotalol Hcl) 80 Mg Tab, 0.5 TAB PO BID, #60 TAB 5 Refills 01/17/22 Meclizine HCl (Meclizine 25) 25 Mg Tab, 25 MG PO BID, TAB 01/17/22 Discontinued Reported Medications Allopurinol (Allopurinol) 100 Mg Tab, 1 TAB PO DAILY 11/08/24 Atorvastatin Calcium (ATORVASTATIN CALCIUM) 20 Mg Tab, 1 TAB PO DAILY, #30 TAB 5 Refills 01/17/22 Gabapentin (Gabapentin) 100 Mg Cap, 400 MG PO BID for 30 Days, MG 01/17/22 Discontinued Scripts Apixaban Base (ELIQUIS) 5 Mg Tab, 5 MG PO BID for 30 Days, #60 TAB Prov:VÍCTOR HAMILTON [employer] 01/20/22 Doxycycline (Monohydrate) (Doxycycline) 100 Mg Tab, 100 MG PO BID for 7 Days, #14 TAB Prov:VÍCTOR HAMILTON [employer] 01/20/22 Past Medical History Others Past medical history includes morbid obesity, atrial fibrillation (on Eliquis as outpatient), COPD/asthma with chronic respiratory failure on home oxygen, morbid obesity, hypertension, hyperlipidemia, chronic lymphedema, Diastolic heart failure with type 2 pulmonary hypertension, rheumatoid arthritis, osteoarthritis, peripheral vascular disease, CKD (stage IV), anemia, alcohol abuse, neuropathy, gout, old history of right and left foot fracture and their management, status post right knee replacement, status post , bed-bound at baseline and functional quadriplegia. Patient drinks whiskey daily. Goes to Nephrology regularly. Reportedly, there has been some concern about going to have fistula creation on preparation for dialysis? Patient Family History: Cerebrovascular accident (CVA) G8 MOTHER Chronic obstructive pulmonary disease FH: CHF (congestive heart failure) G8 MOTHER Hypertension G8 MOTHER Alocohol: Heavy Drugs: None Review of Systems Constitutional: No symptom reported Ears, Nose, & Throat: No symptom reported Gastrointestinal: Nausea, Vomiting, Abdominal Pain All Other Systems 14 point review of system was performed. Relevant findings as per above and as per HPI. Otherwise negative. H&P Exam Vital Signs Vital Signs Date Time Temp Pulse Resp B/P (MAP) Pulse Ox O2 Delivery O2 Flow Rate FiO2 03/24/25 20:00 97.8 117 18 122/62 (82) 97 97.8 03/24/25 20:00 Nasal Cannula* 3 32 General Appeara: Well developed, Obese Head Exam: Normal inspection Eye Exam: bilateral eye PERRL Mouth: Dry mouth Pulmonary/Respiratory: Rhonci Cardiovascular/Chest: Edema, Tachycardia, Systolic murmur, Irregularly irregular Peripheral Pulses: 2+ carotid (R), 2+ carotid (L), 2+ femoral (R), 2+ femoral (L), 2+ dorsalis pedis (R), 2+ dorsalis pedis (L), 2+ Radial (R), 2+ Radial (L) Abdominal Exam: Normal bowel sounds Labs/Xrays Labs Test 03/24/25 18:00 03/24/25 03:30 03/23/25 04:30 03/23/25 04:20 Range/Units Blood Gas Specimen Type Arterial Blood Gas Sample Site Right radial Blood Gas Patient Temperature 37.0 Arterial Blood Date Drawn [id number] Arterial Blood pH 7.405 7.350-7.450 Arterial Blood Partial Pressure CO2 37.8 32.0-45.0 mmHg Arterial Blood Partial Pressure O2 103.6 83.0-108.0 mmHg Arterial Blood HCO3 23.2 21.0-28.0 mmol/L Arterial Blood Oxygen Saturation 97.4 94.0-98.0 % Arterial Blood Base Excess -1.3 -2.0-3.0 mmol/L Arterial Blood Oxyhemoglobin 96.7 94.0-98.0 % Arterial Blood Carboxyhemoglobin 0.3 L 0.5-1.5 % Arterial Blood Methemoglobin 0.4 0.0-1.5 % [place] Test Yes Blood Gas Total Hemoglobin 9.50 L 12.0-16.0 g/dL Blood Gas Modality Nasal cannula FiO2 % 32.0 White Blood Count 11.3 #H 4.4-10.8 10^3/uL Red Blood Count 2.87 L 4.0-5.20 10^6/uL Hemoglobin 7.9 L 12.2-16.2 g/dL Hematocrit 23.6 L 36.0-46.0 % Mean Corpuscular Volume 82.2 80.0-100.0 fL Mean Corpuscular Hemoglobin 27.3 L 28.0-32.0 pg Mean Corpuscular Hemoglobin Concent 33.3 32.0-36.0 g/dL Red Cell Distribution Width 16.7 H 11.8-14.3 % Platelet Count 159 140-450 10^3/uL Mean Platelet Volume 6.3 L 6.9-10.8 fL Neutrophils (%) (Auto) 81.3 H 37.0-80.0 % Lymphocytes (%) (Auto) 5.7 L 10.0-50.0 % Monocytes (%) (Auto) 12.0 0.0-12.0 % Eosinophils (%) (Auto) 0.7 0.0-7.0 % Basophils (%) (Auto) 0.3 0.0-2.0 % Neutrophils # (Auto) 9.2 H 1.6-8.6 10 ^3/uL Lymphocytes # (Auto) 0.6 0.4-5.4 10 ^3/uL Monocytes # (Auto) 1.4 H 0-1.3 10 ^3/uL Eosinophils # (Auto) 0.1 0-0.8 10 ^3/uL Basophils # (Auto) 0 0-0.2 10 ^3/uL Nucleated Red Blood Cells 0.0 % Sodium Level 135 L 136-145 mmol/L Potassium Level 3.4 L 3.5-5.1 mmol/L Chloride Level 100 98-107 mmol/L Carbon Dioxide Level 26 20-31 mmol/L Anion Gap 9 5-15 Blood Urea Nitrogen 54 H 9-23 mg/dL Creatinine 2.13 H 0.550-1.02 mg/dL Glomerular Filtration Rate Calc 24 >90 mL/min BUN/Creatinine Ratio 25.4 H 10.0-20.0 Serum Glucose 88 74-106 mg/dL Calcium Level 9.4 8.7-10.4 mg/dL Magnesium Level 1.6 1.6-2.6 mg/dL Group A Streptococcus Rapid Negative SARS-CoV-2 Antigen (Rapid) Negative NEGATIVE Test 03/21/25 05:21 03/20/25 09:34 03/20/25 08:30 03/20/25 05:31 Range/Units Total Bilirubin 1.4 H 0.2-1.0 mg/dL Aspartate Amino Transferase (AST) 347 H <34 U/L Alanine Aminotransferase (ALT) 315 H 7-40 U/L Alkaline Phosphatase 141 H 46-116 U/L Total Protein 6.1 5.7-8.2 g/dL Albumin 3.4 3.2-4.8 g/dL Amylase Level 21 L 30-118 U/L Lipase 19 12-53 U/L Urine Color Colorless Yellow Urine Clarity Turbid H Clear Urine pH 5.0 5.0-9.0 Urine Specific [place] 1.015 1.001-1.035 Urine Protein Negative Negative Urine Ketones Negative Negative Urine Blood Negative Negative /uL Urine Nitrite Negative Negative Urine Bilirubin Negative Negative Urine Urobilinogen Normal Negative mg/dL Urine Leukocyte Esterase 3+ Negative /uL Urine RBC 1 0 - 4 /hpf Urine Microscopic WBC 255 H 0-5 /HPF Urine Squamous Epithelial Cells Few <5 /hpf Urine Bacteria Few H None Seen /hpf Urine Glucose Normal Normal mg/dL Troponin I High Sensitivity 34 </=34 ng/L Lactic Acid Level 1.2 0.4-2.0 mmol/L Test 03/20/25 05:17 Range/Units POC Glucose 78 70-106 mg/dl Microbiology Date/Time Source Procedure Growth Status 03/23/25 04:30 Throat Nose/Throat Culture - Preliminary Resulted 03/21/25 18:00 Urine - Catheterized Urine Culture - Final Escherichia coli - ESBL Klebsiella pneumoniae - ESBL Complete 03/20/25 21:52 Nose MRSA Screen - Final Complete Assessment/Plan Plan Patient is a 74-year-old female who was admitted on March 20, 2025 for abdominal pain/nausea/vomiting. She is admitted to ICU for septic shock. On March 24, 2025, cardiology was involved for cardiac aspects of care. Patient is known to our practice from before and previous admissions. She is known to have signific ant alcohol abuse (drinks whiskey every day) and also history of pulmonary hypertension/type 2 pulmonary hypertension, diastolic heart failure. Does have poor functional capacity and is bed-bound. Is significantly morbidly obese. Does have baseline history of atrial fibrillation and is on Eliquis as outpatient. Is found to have septic shock and possible pelvic abscess. Is seen by surgery/Urology/pulmonary/GI. Denies chest pains. Denies palpitations. Is noncompliant with medication and followups. While being managed in ICU was found to have atrial fibrillation with RVR. 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 She has had multiple surgeries in the bilateral feet. She also has history of COPD/asthma with chronic respiratory failure (on home oxygen). Morbidly obese. Not in acute distress. No JVD. Mucosa is dry. Mucosa is pink. No JVD. No carotid bruit. Not using accessory muscles of breathing. Scattered rhonchi in the lungs is heard. Cardiac: Irregular, no thrill. Abdomen is obese and soft. There is no gross hepatomegaly, but it is presence can not be ruled out (body habitus, morbidly obese). There is 3+ edema in bilateral lower extremities which extends to abdominal wall. Past medical history includes morbid obesity, atrial fibrillation (on Eliquis as outpatient), COPD/asthma with chronic respiratory failure on home oxygen, morbid obesity, hypertension, hyperlipidemia, chronic lymphedema, Diastolic heart failure with type 2 pulmonary hypertension, rheumatoid arthritis, o steoarthritis, peripheral vascular disease, CKD (stage IV), anemia, alcohol abuse, neuropathy, gout, old history of right and left foot fracture and their management, status post right knee replacement, status post , bed-bound at baseline and functional quadriplegia. Patient drinks whiskey daily. Goes to Nephrology regularly. Reportedly, there has been some concern about going to have fistula creation on preparation for dialysis? Echocardiogram of January 03 2024 (performed in [facility]) revealed ejection fraction of 60%, mild biatrial enlargement, mild MR/TR and right ventricular systolic pressure of 31 mm Hg. Echocardiogram of (performed in [facility]) revealed: EF of 50 to 55%, Dilated right ventricle with normal systolic function. Severe biatrial enlargement. Mild AI, mild to moderate MR, moderate TR and RVSP of 51 mmHg. Ascending Aorta was 3.7 cm. Echocardiogram of November 09, 2024 revealed ejection fraction of 72%, mild right ventricular enlargement, moderate biatrial enlargement, mild to moderate tricuspid regurgitation, mild mitral regurgitation, right ventricular systolic pressure 54 mm Hg Echocardiogram of February 23, 2025 revealed ejection fraction of around 50%, mild concentric left ventricular hypertrophy, right ventricular enlargement with preserved systolic function. Biatrial enlargement, mild aortic insufficiency, [id number] mitral regurgitation and tricuspid regurgitation. IVC was significantly dilated. Right ventricular systolic pressure of of 55 mm Hg WBC: 5.2 - 8.2-12.3 - 8.5 - 11.3 Hemoglobin: 6.7 - 8.6 - 8.1 - 7.6 - 7.9 Platelet: 57 - 73 - 91 - 108 - 159 Creatinine: 3.29 - 2.63 - 2.77 - 2.59 - 2.13 Potassium: 3.9 - 3.4 - 3.8 - 3.3 - 3.4 Sodium: 124 - 129 - 129 - 131 - 135 AST/ALT: 143/111 - 347/315 Troponin (high sensitive): 32 - 31 - 34 Chest x-ray revealed: IMPRESSION: Cardiomegaly. Repeat chest x-ray revealed: IMPRESSION: 1. Cardiomegaly with increased interstitial prominence suggestive of CHF exacerbation. 2. Pulmonary arterial hypertension. Repeat chest x-ray revealed: IMPRESSION: Cardiomegaly with mild pulmonary congestion. . Repeat chest x-ray revealed: IMPRESSION: Cardiomegaly with pulmonary congestion and edema. Superimposed pneumonia cannot be excluded. Repeat chest x-ray revealed: IMPRESSION: Worsening right lower lung airspace disease. Suggestion of small bilateral pleural effusions. Abdominal ultrasound revealed: IMPRESSION: Small left hydronephrosis Renal scan revealed: IMPRESSION: Bilateral renal obstruction is present which is not response to Lasix administration suggesting that the kidney may be minimally functional. Abdomen and pelvic CT scan revealed: IMPRESSION: Moderate left hydroureteronephrosis. Suggestion of possible small abscess formation in the left hemipelvis associated with the sigmoid colon measuring 5.7 cm. This may represent site of ureteral obstruction. Clinical correlation advised. Examination is limited secondary to lack of intravenous and oral contrast administration. EKG revealed atrial fibrillation with RVR Tele reveals atrial fibrillation with RVR Patient is a 74-year-old female with known history of diastolic heart failure with type 2 pulmonary hypertension who presented with abdominal pain. He is admitted to ICU with septic shock. Did have thrombocytopenia which slowly improved. Was significantly anemic and was transfused PRBC. There has been question about pelvic abscess and the patient is on antibiotics. Patient is being followed by surgery/Urology/pulmonary/GI. It is of note that the patient does have history of significant alcohol abuse (drinks good amount of whiskey daily) which could contribute to to some component of the clinical picture. Does have baseline history of pulmonary hypertension. Usually is on some amount of diuretic (Bumex) as outpatient. Clinically, the patient does have dry mucosa and maybe behind fluids at the time of evaluation. Does have baseline poor functional capacity. Does have history of recent sepsis. Significant anemia, status post PRBC transfusion Thrombocytopenia, resolved Septic shock SCOT on CKD Hydronephrosis Pelvic abscess Transaminitis Acute on chronic diastolic heart failure Pulmonary Hypertension, type 2 Alcohol abuse Morbid obesity Poor functional capacity Bed-bound at baseline Atrial fibrillation with RVR Hyperlipidemia Osteoarthritis Rheumatoid arthritis Peripheral vascular disease Cardiac suggestion for management: Manage in ICU Follow-up electrolytes and kidney function tests and correct abnormalities Full anticoagulation (on Eliquis presently), long-term Request for TSH Follow-up liver function test May need some fluid resuscitation IV amiodarone Repeat echocardiogram Pressor support at this point to keep mean arterial pressure above 65 Evaluation and management of sepsis/infection as per primary team Evaluation and management of alcohol abuse/prevention of withdrawal as per primary team Evaluation and management of pelvic abscess/hydronephrosis as per primary team/surgery/Urology Further evaluation and management depends on the above and clinical course Thank you for consultation A total of 75 minutes was spent reviewing the patient record, examining the patient, making a diagnostic and therapeutic plan, discussing this plan with medical personnel, following up on diagnostic studies and following the patient for clinical stability excluding any and all procedures. At least 50% of this time was spent in direct, [id number] contact. Thank you for allowing me to participate in this patient's care. Further recommendations will depend on patient's clinical course. Please do not hesitate to contact me if you have any questions or concerns. This medical document was created using electronic medical record system with [employer] computerized dictation system. Although this document has been carefully reviewed, there may still be some phonetic and typographical errors. These areas are purely typographical due to the imperfection of the software programs, and do not reflect any compromise in the patient's medical care. Plan discussed with: Patient, Other (nurse) AUSTIN ROMERO MD Mar 24, 2025 21:40
[2025-03-24] MEDS: AMIODARONE 360mg/200mL PREMIX 200 ML IV ONE (22:08)
[2025-03-24 23:42] LABS: Anion Gap 12 (5-15); BUN/Creatinine Ratio 25.3 (10.0-20.0); Carbon Dioxide 26 mmol/L (20-31); Chloride 100 mmol/L (98-107); Glucose 103 mg/dL (74-106); Potassium 3.9 mmol/L (3.5-5.1); Sodium 138 mmol/L (136-145); Total Protein 5.7 g/dL (5.7-8.2)
[2025-03-24 23:43] LABS: Alanine Aminotransferase 358 U/L (7-40); Albumin 3.1 g/dL (3.2-4.8); Alkaline Phosphatase 173 U/L (46-116); Bilirubin, Total 0.8 mg/dL (0.2-1.0); Blood Urea Nitrogen 50 mg/dL (9-23); Calcium 8.7 mg/dL (8.7-10.4)
--- NOTE | 2025-03-24 23:44 | DVHPN2 ---
Progress Note - Dictate Date Seen: Mar 24, 2025 Has the PT tested + for MRSA If YES, has PT been informed?: No Medical Necessity Reason Pt with a Central, PICC or Fol: Yes The following are medically ne: Tijerina Catheter Reason for tijerina catheter: Strict I&O Subjective Patient seen and examined at bedside. Remains on supplemental oxygen Overnight events reviewed. vital signs Vital Sign Date Time Temp Pulse Resp B/P (MAP) Pulse Ox O2 Delivery O2 Flow Rate FiO2 03/24/25 20:00 97.8 117 18 122/62 (82) 97 97.8 03/24/25 20:00 Nasal Cannula* 3 32 Total Intake and Output 03/23/25 03/23/25 03/24/25 15:00 23:00 07:00 Intake Total 290 ml 793.75 ml 431.25 ml Output Total 1700 ml 1600 ml Balance 290 ml -906.25 ml -1168.75 ml medications Current Medications Medications Dose Ordered Sig/Sravan Route Start Time Stop Time Status Last Admin Dose Admin Norepinephrine Bitartrate 250 ml @ 3.75 mls/hr Q24H IV 03/20/25 07:45 03/24/25 11:40 30 MLS/HR Acetaminophen/ Hydrocodone Bitart 1 tab Q4HP PRN PO 03/20/25 12:15 03/21/25 21:10 1 TAB Ondansetron HCl 4 mg Q4HP PRN IV 03/20/25 12:15 03/24/25 22:40 4 MG Docusate Sodium 100 mg BIDPRN PRN PO 03/20/25 12:15 Acetaminophen 650 mg Q6HP PRN PO 03/20/25 12:15 03/23/25 14:02 650 MG Nitroglycerin 0.4 mg Q5MINP PRN SL 03/20/25 12:15 Morphine Sulfate 2 mg Q30M PRN IV 03/20/25 12:15 Allopurinol 100 mg DAILY PO 03/21/25 10:00 03/23/25 09:15 100 MG Apixaban 2.5 mg BID PO 03/20/25 22:00 03/24/25 22:10 2.5 MG Cilostazol 100 mg BID PO 03/20/25 22:00 03/24/25 22:10 100 MG Patient Own Medication 1 tab DAILY PO 03/21/25 10:00 UNV Patient Own Medication 1 tab DAILY PO 03/21/25 10:00 UNV Gabapentin 300 mg DAILY PO 03/21/25 10:00 03/23/25 09:14 300 MG Levothyroxine Sodium 112 mcg DAILY PO 03/21/25 10:00 03/23/25 09:14 112 MCG Levothyroxine Sodium 25 mcg DAILY PO 03/21/25 10:00 03/23/25 09:14 25 MCG Spironolactone 50 mg DAILY PO 03/21/25 10:00 03/22/25 10:39 50 MG Diphenhydramine HCl 50 mg [id number] PRN PO 03/21/25 16:45 03/21/25 22:57 50 MG Albuterol 2.5 mg Q6HR NEB 03/21/25 18:00 03/24/25 17:58 2.5 MG Ipratropium [place] 0.5 mg Q6HWA NEB 03/21/25 18:00 03/24/25 17:58 0.5 MG Patient Own Medication 1 tab BID PO 03/21/25 22:00 03/24/25 22:09 1 TAB Throat Lozenges 1 liv Q2HP PRN MT 03/23/25 04:00 03/23/25 14:52 1 LIV Piperacillin Sod/ Tazobactam Sod 100 ml @ 25 mls/hr Q8HR IV 03/24/25 14:00 03/24/25 22:10 25 MLS/HR Furosemide 40 mg DAILY IV 03/25/25 10:00 objective Gen.: Patient lying in bed in no apparent distress. On supplemental oxygen. Head: Normocephalic, atraumatic. Eyes: EOMI/PERRLA. Ears: Normal hearing. Normal anatomy. Neck/trachea: Trachea midline, supple. Nose: Normal external anatomy. Mouth: Moist mucous membranes. Chest: Decreased air entry bilaterally. No wheezing or rhonchi. Cardiovascular: Positive S1, positive S2. Regular rate and rhythm. Abdomen: Positive bowel sounds in all 4 quadrants. Soft, non-tender, non- distended. : Deferred. Rectal: Deferred. Skin: Warm, dry. Intact. Extremities: 2+ radial pulses bilaterally. No lower extremity edema. Neuro: Awake, alert, oriented x3. No gross motor or sensory deficits. Cranial nerves II through XII intact. Gait not assessed. laboratory and microbiology Laboratory Tests 03/24/25 03:30 Test 03/24/25 23:00 Range/Units Serum Glucose Pending Assessment/Plan Impression: Acute kidney injury Acute hypoxic respiratory failure Dependence on supplemental oxygen Chronic obstructive pulmonary disease Pneumonia Left hydronephrosis Septic shock Events On oxygen 3 LPM via NC Taper O2 as tolerated On pressors for hemodynamic support Levophed 16 mcg/min Titrate to keep mean arterial pressure greater than 65 mmHg. Continue antibiotics Continue bronchodilators Amio PO, Eliquis for AFib. Monitor renal function Monitor electrolytes. Supplement as necessary. Mag, K supplementation Monitor ins and outs. Eliquis for DVT ppx Consult condition with Dr. Damon. Monitor Hgb NPO - GI recommendations appreciated. Labs and imaging studies reviewed Plan Supplemental oxygen Titrate to keep O2 sats above 92%. Pressors as necessary for hemodynamic support Titrate to keep mean arterial pressure greater than 65 mmHg. Bronchodilators for COPD - stable Continue antibiotics F/u cultures Amiodarone PO Eliquis Monitor hemoglobin Monitor renal function Monitor electrolytes. Supplement as necessary. Monitor ins and outs. Maintain euvolemia. F/u with urology/urology and gen sx GI prophylaxis. DVT prophylaxis. Prognosis: Poor given patient's multiple co-morbidities. Condition: Critical Rest of plan per hospitalist and other consultants. A total of 35 minutes of critical care time was spent reviewing the patient record, examining the patient, making a diagnostic and therapeutic plan, discussing this plan with the medical personnel, following up on diagnostic studies and following the patient for clinical stability excluding any and all procedures. At least 50% of this time was spent in direct, [id number] contact. Thank you, Dr. Celis, for allowing me to participate in this patient's care. Further recommendations will depend on the patient's clinical course. Please do not hesitate to contact me if you have any questions or concerns. This medical document was created using an electronic medical record system with [employer] dictation system. Although these documentations are being carefully reviewed, there may still be some phonetic and typographical changes. The errors are purely typographical, due to imperfection on the software program, and do not reflect any compromise in the patient's medical care. Dietary Evaluation Review Comments: Renal Specific 60g CCHO-60 Cardiac Diet d/t SCOT over CKD and low GFR Expected Outcomes/Goals: less uremic symptoms, better weight management Plan discussed with: Patient, Other (RN [place]) Critical Care Time(min): 35 CC Plasma Assessment Blood Product Administration S: [id number] PALOMO ROBLES MD Mar 24, 2025 23:44
[2025-03-24] MEDS: FUROSEMIDE 100 MG/10ML VIAL IV ONE (23:59)
[2025-03-25] VITALS (100 sets, daily range): BP systolic 80–140; BP diastolic 42–74; PULSE 107–129; RESP 10–26; TEMP 97.9–99.1; O2SAT 85–100
[2025-03-25 03:50] LABS: Hemoglobin 7.7 g/dL (12.2-16.2); Nucleated Red Blood Cells % 0.2 %
[2025-03-25 03:53] LABS: Hematocrit 23.0 % (36.0-46.0); Mean Corpuscular Hemoglobin 27.6 pg (28.0-32.0); Mean Corpuscular Volume 82.9 fL (80.0-100.0)
[2025-03-25 04:07] LABS: Anion Gap 12 (5-15); Carbon Dioxide 26 mmol/L (20-31); Chloride 100 mmol/L (98-107); Sodium 138 mmol/L (136-145)
[2025-03-25 04:08] LABS: Calcium 9.5 mg/dL (8.7-10.4)
[2025-03-25 04:13] LABS: BUN/Creatinine Ratio 25.3 (10.0-20.0); Magnesium 1.7 mg/dL (1.6-2.6)
[2025-03-25 04:17] LABS: Blood Urea Nitrogen 50 mg/dL (9-23); Glucose 110 mg/dL (74-106); Potassium 3.5 mmol/L (3.5-5.1)
[2025-03-25] MEDS ORDERED: POTASSIUM CHL 20MEQ/50ML 50 ML IV ONE (05:15)
[2025-03-25] MEDS: POTASSIUM CHL 20MEQ/100ML 100 ML IV ONE (05:32)
[2025-03-25] MEDS: AMIODARONE 360mg/200mL PREMIX 200 ML IV SCH ×2 (07:30→08:00)
--- NOTE | 2025-03-25 07:49 | DVHPN2 ---
Progress Note - Dictate Date Seen: Mar 25, 2025 Has the PT tested + for MRSA If YES, has PT been informed?: No Medical Necessity Reason Pt with a Central, PICC or Fol: Yes The following are medically ne: Tijerina Catheter Reason for tijerina catheter: Strict I&O vital signs Vital Sign Date Time Temp Pulse Resp B/P (MAP) Pulse Ox O2 Delivery O2 Flow Rate FiO2 03/25/25 06:45 122 21 102/49 (66) 95 03/25/25 06:13 Nasal Cannula* 2 03/25/25 04:45 97.9 97.9 Total Intake and Output 03/24/25 03/24/25 03/25/25 15:00 23:00 07:00 Intake Total 326.25 ml 203.33 ml 245.003 ml Output Total 1300 ml 1200 ml Balance 326.25 ml -1096.67 ml -954.997 ml medications Current Medications Medications Dose Ordered Sig/Sravan Route Start Time Stop Time Status Last Admin Dose Admin Norepinephrine Bitartrate 250 ml @ 3.75 mls/hr Q24H IV 03/20/25 07:45 03/25/25 00:48 7.5 MLS/HR Acetaminophen/ Hydrocodone Bitart 1 tab Q4HP PRN PO 03/20/25 12:15 03/21/25 21:10 1 TAB Ondansetron HCl 4 mg Q4HP PRN IV 03/20/25 12:15 03/24/25 22:40 4 MG Docusate Sodium 100 mg BIDPRN PRN PO 03/20/25 12:15 Acetaminophen 650 mg Q6HP PRN PO 03/20/25 12:15 03/23/25 14:02 650 MG Nitroglycerin 0.4 mg Q5MINP PRN SL 03/20/25 12:15 Morphine Sulfate 2 mg Q30M PRN IV 03/20/25 12:15 Allopurinol 100 mg DAILY PO 03/21/25 10:00 03/23/25 09:15 100 MG Apixaban 2.5 mg BID PO 03/20/25 22:00 03/24/25 22:10 2.5 MG Cilostazol 100 mg BID PO 03/20/25 22:00 03/24/25 22:10 100 MG Patient Own Medication 1 tab DAILY PO 03/21/25 10:00 UNV Patient Own Medication 1 tab DAILY PO 03/21/25 10:00 UNV Gabapentin 300 mg DAILY PO 03/21/25 10:00 03/23/25 09:14 300 MG Levothyroxine Sodium 112 mcg DAILY PO 03/21/25 10:00 03/23/25 09:14 112 MCG Levothyroxine Sodium 25 mcg DAILY PO 03/21/25 10:00 03/23/25 09:14 25 MCG Spironolactone 50 mg DAILY PO 03/21/25 10:00 03/22/25 10:39 50 MG Diphenhydramine HCl 50 mg [id number] PRN PO 03/21/25 16:45 03/21/25 22:57 50 MG Albuterol 2.5 mg Q6HR NEB 03/21/25 18:00 03/25/25 06:11 2.5 MG Ipratropium [place] 0.5 mg Q6HWA NEB 03/21/25 18:00 03/25/25 06:11 0.5 MG Patient Own Medication 1 tab BID PO 03/21/25 22:00 03/24/25 22:09 1 TAB Throat Lozenges 1 liv Q2HP PRN MT 03/23/25 04:00 03/23/25 14:52 1 LIV Piperacillin Sod/ Tazobactam Sod 100 ml @ 25 mls/hr Q8HR IV 03/24/25 14:00 03/25/25 05:31 25 MLS/HR Furosemide 40 mg DAILY IV 03/25/25 10:00 laboratory and microbiology Laboratory Tests 03/25/25 03:18 Test 03/25/25 03:18 Range/Units Serum Glucose 110 H 74-106 mg/dL Assessment/Plan Patient is a 74-year-old female who was admitted on March 20, 2025 for abdominal pain/nausea/vomiting. She is admitted to ICU for septic shock. On March 24, 2025, cardiology was involved for cardiac aspects of care. Patient is known to our practice from before and previous admissions. She is known to have significant alcohol abuse (drinks whiskey every day) and also history of pulmonary hypertension/type 2 pulmonary hypertension, diastolic heart failure. Does have poor functional capacity and is bed-bound. Is significantly morbidly obese. Does have baseline history of atrial fibrillation and is on Eliquis as outpatient. Is found to have septic shock and possible pelvic abscess. Is seen by surgery/Urology/pulmonary/GI. Denies chest pains. Denies palpitations. Is noncompliant with medication and followups. While being managed in ICU was found to have atrial fibrillation with RVR. 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 She has had multiple surgeries in the bilateral feet. She also has history of COPD/asthma with chronic respiratory failure (on home oxygen). Morbidly obese. Not in acute distress. No JVD. Mucosa is dry. Mucosa is pink. No JVD. No carotid bruit. Not using accessory muscles of breathing. Scattered rhonchi in the lungs is heard. Cardiac: Irregular, no thrill. Abdomen is obese and soft. There is no gross hepatomegaly, but it is presence can not be ruled out (body habitus, morbidly obese). There is 3+ edema in bilateral lower extremities which extends to abdominal wall. Past medical history includes morbid obesity, atrial fibrillation (on Eliquis as outpatient), COPD/asthma with chronic respiratory failure on home oxygen, morbid obesity, hypertension, hyperlipidemia, chronic lymphedema, Diastolic heart failure with type 2 pulmonary hypertension, rheumatoid arthritis, osteoarthritis, peripheral vascular disease, CKD (stage IV), anemia, alcohol abuse, neuropathy, gout, old history of right and left foot fracture and their management, status post right knee replacement, status post , bed-bound at baseline and functional quadriplegia. Patient drinks whiskey daily. Goes to Nephrology regularly. Reportedly, there has been some concern about going to have fistula creation on preparation for dialysis? Echocardiogram of January 03 2024 (performed in [facility]) revealed ejection fraction of 60%, mild biatrial enlargement, mild MR/TR and right ventricular systolic pressure of 31 mm Hg. Echocardiogram of (performed in [facility]) revealed: EF of 50 to 55%, Dilated right ventricle with normal systolic function. Severe biatrial enlargement. Mild AI, mild to moderate MR, moderate TR and RVSP of 51 mmHg. Ascending Aorta was 3.7 cm. Echocardiogram of November 09, 2024 revealed ejection fraction of 72%, mild right ventricular enlargement, moderate biatrial enlargement, mild to moderate tricuspid regurgitation, mild mitral regurgitation, right ventricular systolic pressure 54 mm Hg Echocardiogram of February 23, 2025 revealed ejection fraction of around 50%, mild concentric left ventricular hypertrophy, right ventricular enlargement with preserved systolic function. Biatrial enlargement, mild aortic insufficiency, [id number] mitral regurgitation and tricuspid regurgitation. IVC was significantly dilated. Right ventricular systolic pressure of of 55 mm Hg WBC: 5.2 - 8.2-12.3 - 8.5 - 11.3 - 13.7 Hemoglobin: 6.7 - 8.6 - 8.1 - 7.6 - 7.9 - 7.7 Platelet: 57 - 73 - 91 - 108 - 159 - 189 Creatinine: 3.29 - 2.63 - 2.77 - 2.59 - 2.13 - 1.98 - 1.98 Potassium: 3.9 - 3.4 - 3.8 - 3.3 - 3.4 - 3.9 - 3.5 Sodium: 124 - 129 - 129 - 131 - 135 - 138 - 138 AST/ALT: 143/111 - 347/315 - 48/358 Troponin (high sensitive): 32 - 31 - 34 TSH: 0.17 Chest x-ray revealed: IMPRESSION: Cardiomegaly. Repeat chest x-ray revealed: IMPRESSION: 1. Cardiomegaly with increased interstitial prominence suggestive of CHF exacerbation. 2. Pulmonary arterial hypertension. Repeat chest x-ray revealed: IMPRESSION: Cardiomegaly with mild pulmonary congestion. . Repeat chest x-ray revealed: IMPRESSION: Cardiomegaly with pulmonary congestion and edema. Superimposed pneumonia cannot be excluded. Repeat chest x-ray revealed: IMPRESSION: Worsening right lower lung airspace disease. Suggestion of small bilateral pleural effusions. Abdominal ultrasound revealed: IMPRESSION: Small left hydronephrosis Renal scan revealed: IMPRESSION: Bilateral renal obstruction is present which is not response to Lasix administration suggesting that the kidney may be minimally functional. Abdomen and pelvic CT scan revealed: IMPRESSION: Moderate left hydroureteronephrosis. Suggestion of possible small abscess formation in the left hemipelvis associated with the sigmoid colon measuring 5.7 cm. This may represent site of ureteral obstruction. Clinical correlation advised. Examination is limited secondary to lack of intravenous and oral contrast administration. EKG revealed atrial fibrillation with RVR Tele reveals atrial fibrillation with RVR Patient is a 74-year-old female with known history of diastolic heart failure with type 2 pulmonary hypertension who presented with abdominal pain. He is admitted to ICU with septic shock. Did have thrombocytopenia which slowly improved. Was significantly anemic and was transfused PRBC. There has been question about pelvic abscess and the patient is on antibiotics. Patient is being followed by surgery/Urology/pulmonary/GI. It is of note that the patient does have history of significant alcohol abuse (drinks good amount of whiskey daily) which could contribute to to some component of the clinical picture. Does have baseline history of pulmonary hypertension. Usually is on some amount of diuretic (Bumex) as outpatient. Clinically, the patient does have dry mucosa and maybe behind fluids at the time of evaluation. Does have baseline poor functional capacity. Does have history of recent sepsis. Significant anemia, status post PRBC transfusion Thrombocytopenia, resolved Septic shock SCOT on CKD Hydronephrosis Pelvic abscess Transaminitis Acute on chronic diastolic heart failure Pulmonary Hypertension, type 2 Alcohol abuse Morbid obesity Poor functional capacity Bed-bound at baseline Atrial fibrillation with RVR Hyperlipidemia Osteoarthritis Rheumatoid arthritis Peripheral vascular disease Cardiac suggestion for management: Manage in ICU Follow-up electrolytes and kidney function tests and correct abnormalities Full anticoagulation (on Eliquis presently), long-term May need some fluid resuscitation Consider Nephrology evaluation Repeat TSH Request for T3 / T4 / Free T3 / Free T4 IV amiodarone Repeat echocardiogram Pressor support at this point to keep mean arterial pressure above 65 Evaluation and management of sepsis/infection as per primary team Evaluation and management of alcohol abuse/prevention of withdrawal as per primary team Evaluation and management of pelvic abscess/hydronephrosis as per primary team/surgery/Urology Further evaluation and management depends on the above and clinical course A total of 75 minutes was spent reviewing the patient record, examining the patient, making a diagnostic and therapeutic plan, discussing this plan with medical personnel, following up on diagnostic studies and following the patient for clinical stability excluding any and all procedures. At least 50% of this time was spent in direct, [id number] contact. Thank you for allowing me to participate in this patient's care. Further recommendations will depend on patient's clinical course. Please do not hesitate to contact me if you have any questions or concerns. This medical document was created using electronic medical record system with [employer] dictation system. Although this document has been carefully reviewed, there may still be some phonetic and typographical errors. These areas are purely typographical due to the imperfection of the software programs, and do not reflect any compromise in the patient's medical care. Dietary Evaluation Review Comments: Renal Specific 60g CCHO-60 Cardiac Diet d/t SCOT over CKD and low GFR Expected Outcomes/Goals: less uremic symptoms, better weight management Plan discussed with: Patient, Other (nurse) CC Plasma Assessment Blood Product Administration S: [id number] AUSTIN ROMERO MD Mar 25, 2025 07:49
--- NOTE | 2025-03-25 08:51 | DVHPN2 ---
Progress Note Date Seen: Mar 25, 2025 Has the PT tested + for MRSA If YES, has PT been informed?: No Medical Necessity Reason Pt with a Central, PICC or Fol: Yes The following are medically ne: Tijerina Catheter Reason for tijerina catheter: Strict I&O Objective vital signs Vital Sign Date Time Temp Pulse Resp B/P (MAP) Pulse Ox O2 Delivery O2 Flow Rate FiO2 03/25/25 07:30 117 18 96 Nasal Cannula* 3 32 03/25/25 06:45 102/49 (66) 03/25/25 04:45 97.9 97.9 Total Intake and Output 03/24/25 03/24/25 03/25/25 15:00 23:00 07:00 Intake Total 326.25 ml 203.33 ml 245.003 ml Output Total 1300 ml 1200 ml Balance 326.25 ml -1096.67 ml -954.997 ml medications Current Medications Medications Dose Ordered Sig/Sravan Route Start Time Stop Time Status Last Admin Dose Admin Norepinephrine Bitartrate 250 ml @ 3.75 mls/hr Q24H IV 03/20/25 07:45 03/25/25 00:48 7.5 MLS/HR Acetaminophen/ Hydrocodone Bitart 1 tab Q4HP PRN PO 03/20/25 12:15 03/21/25 21:10 1 TAB Ondansetron HCl 4 mg Q4HP PRN IV 03/20/25 12:15 03/24/25 22:40 4 MG Docusate Sodium 100 mg BIDPRN PRN PO 03/20/25 12:15 Acetaminophen 650 mg Q6HP PRN PO 03/20/25 12:15 03/23/25 14:02 650 MG Nitroglycerin 0.4 mg Q5MINP PRN SL 03/20/25 12:15 Morphine Sulfate 2 mg Q30M PRN IV 03/20/25 12:15 Allopurinol 100 mg DAILY PO 03/21/25 10:00 03/23/25 09:15 100 MG Apixaban 2.5 mg BID PO 03/20/25 22:00 03/24/25 22:10 2.5 MG Cilostazol 100 mg BID PO 03/20/25 22:00 03/24/25 22:10 100 MG Patient Own Medication 1 tab DAILY PO 03/21/25 10:00 UNV Patient Own Medication 1 tab DAILY PO 03/21/25 10:00 UNV Gabapentin 300 mg DAILY PO 03/21/25 10:00 03/23/25 09:14 300 MG Levothyroxine Sodium 112 mcg DAILY PO 03/21/25 10:00 03/23/25 09:14 112 MCG Levothyroxine Sodium 25 mcg DAILY PO 03/21/25 10:00 03/23/25 09:14 25 MCG Spironolactone 50 mg DAILY PO 03/21/25 10:00 03/22/25 10:39 50 MG Diphenhydramine HCl 50 mg [id number] PRN PO 03/21/25 16:45 03/21/25 22:57 50 MG Albuterol 2.5 mg Q6HR NEB 03/21/25 18:00 03/25/25 06:11 2.5 MG Ipratropium [place] 0.5 mg Q6HWA NEB 03/21/25 18:00 03/25/25 06:11 0.5 MG Patient Own Medication 1 tab BID PO 03/21/25 22:00 03/24/25 22:09 1 TAB Throat Lozenges 1 liv Q2HP PRN MT 03/23/25 04:00 03/23/25 14:52 1 LIV Piperacillin Sod/ Tazobactam Sod 100 ml @ 25 mls/hr Q8HR IV 03/24/25 14:00 03/25/25 05:31 25 MLS/HR Furosemide 40 mg DAILY IV 03/25/25 10:00 laboratory and microbiology Laboratory Tests 03/25/25 03:18 Test 03/25/25 03:18 Range/Units Serum Glucose 110 H 74-106 mg/dL Problem List/Assessment/Plan Problem List/Assessment/Plan 03/25/25 patien having a urology w/u, radioloist intervention for aspiration of pelvic abscess is pending. her abdomen is soft and entirely non tender. awaiting IR intervention. Plan discussed with: Patient, Other Dietary Evaluation Review Comments: Renal Specific 60g CCHO-60 Cardiac Diet d/t SCOT over CKD and low GFR Expected Outcomes/Goals: less uremic symptoms, better weight management CHEYENNE BURROUGHS MD Mar 25, 2025 08:51
[2025-03-25] MEDS: NITROGLYCERIN 0.4 MG SL TAB SL PRN (09:26)
[2025-03-25] MEDS: MORPHINE SULFATE INJ 2 MG/ml SYRG IV PRN (09:43)
[2025-03-25] MEDS: FUROSEMIDE 40 MG/4 ML VIAL IV SCH (13:22)
[2025-03-25] MEDS: NOREPINEPHRINE 8 MG/250ML KIT 250 ML IV SCH (16:39)
--- NOTE | 2025-03-25 23:09 | DVHPN2 ---
Progress Note - Dictate Date Seen: Mar 25, 2025 Has the PT tested + for MRSA If YES, has PT been informed?: No Medical Necessity Reason Pt with a Central, PICC or Fol: Yes The following are medically ne: Tijerina Catheter Reason for tijerina catheter: Strict I&O Subjective Patient seen and examined at bedside. Remains on supplemental oxygen Overnight events reviewed. vital signs Vital Sign Date Time Temp Pulse Resp B/P (MAP) Pulse Ox O2 Delivery O2 Flow Rate FiO2 03/25/25 22:41 95/46 03/25/25 22:30 120 21 95 03/25/25 21:47 Nasal Cannula* 3 32 03/25/25 20:00 99.1 99.1 Total Intake and Output 03/24/25 03/24/25 03/25/25 15:00 23:00 07:00 Intake Total 326.25 ml 203.33 ml 248.753 ml Output Total 1300 ml 1200 ml Balance 326.25 ml -1096.67 ml -951.247 ml medications Current Medications Medications Dose Ordered Sig/Sravan Route Start Time Stop Time Status Last Admin Dose Admin Acetaminophen/ Hydrocodone Bitart 1 tab Q4HP PRN PO 03/20/25 12:15 03/25/25 21:24 1 TAB Ondansetron HCl 4 mg Q4HP PRN IV 03/20/25 12:15 03/25/25 19:36 4 MG Docusate Sodium 100 mg BIDPRN PRN PO 03/20/25 12:15 Acetaminophen 650 mg Q6HP PRN PO 03/20/25 12:15 03/23/25 14:02 650 MG Nitroglycerin 0.4 mg Q5MINP PRN SL 03/20/25 12:15 03/25/25 09:26 0.4 MG Morphine Sulfate 2 mg Q30M PRN IV 03/20/25 12:15 03/25/25 09:43 2 MG Allopurinol 100 mg DAILY PO 03/21/25 10:00 03/25/25 11:21 100 MG Apixaban 2.5 mg BID PO 03/20/25 22:00 03/25/25 21:21 2.5 MG Cilostazol 100 mg BID PO 03/20/25 22:00 03/25/25 21:21 100 MG Patient Own Medication 1 tab DAILY PO 03/21/25 10:00 UNV Patient Own Medication 1 tab DAILY PO 03/21/25 10:00 UNV Gabapentin 300 mg DAILY PO 03/21/25 10:00 03/25/25 11:21 300 MG Levothyroxine Sodium 112 mcg DAILY PO 03/21/25 10:00 03/23/25 09:14 112 MCG Levothyroxine Sodium 25 mcg DAILY PO 03/21/25 10:00 03/23/25 09:14 25 MCG Spironolactone 50 mg DAILY PO 03/21/25 10:00 03/25/25 14:02 50 MG Diphenhydramine HCl 50 mg [id number] PRN PO 03/21/25 16:45 03/21/25 22:57 50 MG Albuterol 2.5 mg Q6HR NEB 03/21/25 18:00 03/25/25 17:47 2.5 MG Ipratropium [place] 0.5 mg Q6HWA NEB 03/21/25 18:00 03/25/25 17:47 0.5 MG Patient Own Medication 1 tab BID PO 03/21/25 22:00 03/25/25 21:21 1 TAB Throat Lozenges 1 liv Q2HP PRN MT 03/23/25 04:00 03/23/25 14:52 1 LIV Piperacillin Sod/ Tazobactam Sod 100 ml @ 25 mls/hr Q8HR IV 03/24/25 14:00 03/25/25 21:21 25 MLS/HR Furosemide 40 mg DAILY IV 03/25/25 10:00 03/25/25 13:22 40 MG Norepinephrine Bitartrate 250 ml @ 3.75 mls/hr Q24H IV 03/25/25 16:30 03/25/25 21:20 3.75 MLS/HR Pantoprazole Sodium 40 mg DAILY IV 03/26/25 10:00 objective Gen.: Patient lying in bed in no apparent distress. On supplemental oxygen. Head: Normocephalic, atraumatic. Eyes: EOMI/PERRLA. Ears: Normal hearing. Normal anatomy. Neck/trachea: Trachea midline, supple. Nose: Normal external anatomy. Mouth: Moist mucous membranes. Chest: Decreased air entry bilaterally. No wheezing or rhonchi. Cardiovascular: Positive S1, positive S2. Regular rate and rhythm. Abdomen: Positive bowel sounds in all 4 quadrants. Soft, non-tender, non- distended. : Deferred. Rectal: Deferred. Skin: Warm, dry. Intact. Extremities: 2+ radial pulses bilaterally. No lower extremity edema. Neuro: Awake, alert, oriented x3. No gross motor or sensory deficits. Cranial nerves II through XII intact. Gait not assessed. laboratory and microbiology Laboratory Tests 03/25/25 03:18 Test 03/25/25 03:18 Range/Units Serum Glucose 110 H 74-106 mg/dL Assessment/Plan Impression: Acute kidney injury Acute hypoxic respiratory failure Dependence on supplemental oxygen Chronic obstructive pulmonary disease Pneumonia Left hydronephrosis Septic shock Events On supplemental oxygen 1-2 LPM via NC Taper O2 as tolerated On pressors for hemodynamic support Levophed 1 mcg/min Titrate to keep mean arterial pressure greater than 65 mmHg. Improved pressor requirements - taper as tolerated. On amiodarone drip 0.5 mg for AFib Head of bed elevation Aspiration precautions Continue antibiotics Continue bronchodilators Labs noted low TSH of 0.15 Monitor renal function Monitor electrolytes. Supplement as necessary. Potassium supplementation Monitor ins and outs. Monitor Hgb NPO - awaiting IR for aspiration of pelvic abscess GI recommendations appreciated. Cardiology recommendations appreciated. Labs and imaging studies reviewed Plan Supplemental oxygen Titrate to keep O2 sats above 92%. Pressors as necessary for hemodynamic support Titrate to keep mean arterial pressure greater than 65 mmHg. Bronchodilators for COPD - stable Continue antibiotics F/u cultures Amiodarone Eliquis Monitor hemoglobin Monitor renal function Monitor electrolytes. Supplement as necessary. Monitor ins and outs. Maintain euvolemia. F/u with urology/urology and gen sx GI prophylaxis. DVT prophylaxis. Prognosis: Poor given patient's multiple co-morbidities. Condition: Critical Rest of plan per hospitalist and other consultants. A total of 35 minutes of critical care time was spent reviewing the patient record, examining the patient, making a diagnostic and therapeutic plan, discussing this plan with the medical personnel, following up on diagnostic studies and following the patient for clinical stability excluding any and all procedures. At least 50% of this time was spent in direct, [id number] contact. Thank you, Dr. Celis, for allowing me to participate in this patient's care. Further recommendations will depend on the patient's clinical course. Please do not hesitate to contact me if you have any questions or concerns. This medical document was created using an electronic medical record system with [employer] dictation system. Although these documentations are being carefully reviewed, there may still be some phonetic and typographical changes. The errors are purely typographical, due to imperfection on the software program, and do not reflect any compromise in the patient's medical care. Dietary Evaluation Review Comments: Renal Specific 60g CCHO-60 Cardiac Diet d/t SCOT over CKD and low GFR Expected Outcomes/Goals: less uremic symptoms, better weight management Plan discussed with: Other (BOSTON Middleton) Critical Care Time(min): 35 CC Plasma Assessment Blood Product Administration S: [id number] PALOMO ROBLES MD Mar 25, 2025 23:09
[2025-03-26] VITALS (99 sets, daily range): BP systolic 74–129; BP diastolic 39–68; PULSE 89–127; RESP 13–24; TEMP 97.7–99.6; O2SAT 92–97
--- NOTE | 2025-03-26 00:34 | DVHPN2 ---
Progress Note - Dictate Date Seen: Mar 26, 2025 Has the PT tested + for MRSA If YES, has PT been informed?: No Medical Necessity Reason Pt with a Central, PICC or Fol: Yes The following are medically ne: Tijerina Catheter Reason for tijerina catheter: Strict I&O Subjective No new complaints Patient has been started on a clear liquid diet by surgical consult Urine culture revealed E coli ESBL, Klebsiella pneumoniae ESBL no Nausea vomiting Patient has leukocytosis H&H stable Patient had some chest pain this morning but EKG was normal vital signs Vital Sign Date Time Temp Pulse Resp B/P (MAP) Pulse Ox O2 Delivery O2 Flow Rate FiO2 03/25/25 23:45 99.1 118 22 111/57 (75) 95 99.1 03/25/25 23:36 Nasal Cannula* 3 32 Total Intake and Output 03/25/25 03/25/25 03/26/25 15:00 23:00 07:00 Intake Total 304.95 ml 419.521 ml 46.348 ml Output Total 500 ml Balance 304.95 ml -80.479 ml 46.348 ml medications Current Medications Medications Dose Ordered Sig/Sravan Route Start Time Stop Time Status Last Admin Dose Admin Acetaminophen/ Hydrocodone Bitart 1 tab Q4HP PRN PO 03/20/25 12:15 03/25/25 21:24 1 TAB Ondansetron HCl 4 mg Q4HP PRN IV 03/20/25 12:15 03/26/25 00:08 4 MG Docusate Sodium 100 mg BIDPRN PRN PO 03/20/25 12:15 Acetaminophen 650 mg Q6HP PRN PO 03/20/25 12:15 03/23/25 14:02 650 MG Nitroglycerin 0.4 mg Q5MINP PRN SL 03/20/25 12:15 03/25/25 09:26 0.4 MG Morphine Sulfate 2 mg Q30M PRN IV 03/20/25 12:15 03/25/25 09:43 2 MG Allopurinol 100 mg DAILY PO 03/21/25 10:00 03/25/25 11:21 100 MG Apixaban 2.5 mg BID PO 03/20/25 22:00 03/25/25 21:21 2.5 MG Cilostazol 100 mg BID PO 03/20/25 22:00 03/25/25 21:21 100 MG Patient Own Medication 1 tab DAILY PO 03/21/25 10:00 UNV Patient Own Medication 1 tab DAILY PO 03/21/25 10:00 UNV Gabapentin 300 mg DAILY PO 03/21/25 10:00 03/25/25 11:21 300 MG Levothyroxine Sodium 112 mcg DAILY PO 03/21/25 10:00 03/23/25 09:14 112 MCG Levothyroxine Sodium 25 mcg DAILY PO 03/21/25 10:00 03/23/25 09:14 25 MCG Spironolactone 50 mg DAILY PO 03/21/25 10:00 03/25/25 14:02 50 MG Diphenhydramine HCl 50 mg [id number] PRN PO 03/21/25 16:45 03/21/25 22:57 50 MG Albuterol 2.5 mg Q6HR NEB 03/21/25 18:00 03/25/25 17:47 2.5 MG Ipratropium [place] 0.5 mg Q6HWA NEB 03/21/25 18:00 03/25/25 17:47 0.5 MG Patient Own Medication 1 tab BID PO 03/21/25 22:00 03/25/25 21:21 1 TAB Throat Lozenges 1 liv Q2HP PRN MT 03/23/25 04:00 03/23/25 14:52 1 LIV Piperacillin Sod/ Tazobactam Sod 100 ml @ 25 mls/hr Q8HR IV 03/24/25 14:00 03/25/25 21:21 25 MLS/HR Furosemide 40 mg DAILY IV 03/25/25 10:00 03/25/25 13:22 40 MG Norepinephrine Bitartrate 250 ml @ 3.75 mls/hr Q24H IV 03/25/25 16:30 03/25/25 21:20 3.75 MLS/HR Pantoprazole Sodium 40 mg DAILY IV 03/26/25 10:00 objective General examination- awake, alert HEENT- PEERLA, morbidly obese Cardiovascular- S1-S2 audible, rate and rhythm regular, no murmur Respiratory- CTAB, no wheeze or rhonchi Gastrointestinal-lower abdominal wall tenderness+, bowel sound+. Nondistended Musculoskeletal-no acute joint swelling or tenderness or redness Lower extremity- no leg edema Neurological- cranial nerves intact, no acute dysarthria or dysphagia laboratory and microbiology Laboratory Tests 03/25/25 03:18 Test 03/25/25 03:18 Range/Units Serum Glucose 110 H 74-106 mg/dL Problems(with codes): (1) E. coli UTI (urinary tract infection) (2) Pelvic abscess in female (3) Acute on chronic kidney failure (4) Hydronephrosis (5) Symptomatic anemia (6) Sepsis (7) Generalized weakness Prognosis PLAN On clear liquid diet Ordered IV antibiotic Zosyn Thyroid medicine on hold because of low TSH Recommended for IR guided drainage of the abscess of sigmoid colon Possible repeat imaging by IR in a.m. IV pantoprazole started Avoid dehydration and constipation Surgery input appreciated Dietary Evaluation Review Comments: Renal Specific 60g CCHO-60 Cardiac Diet d/t SCOT over CKD and low GFR Expected Outcomes/Goals: less uremic symptoms, better weight management Plan discussed with: Patient, Other (ICU Nurse Emi) CC Plasma Assessment Blood Product Administration S: [id number] MAGALYS AQUINO MD Mar 26, 2025 00:34
[2025-03-26] MEDS: MORPHINE SULFATE INJ 2 MG/ml SYRG IV ONE (01:56)
[2025-03-26 03:53] LABS: Nucleated Red Blood Cells % 0.3 %
[2025-03-26 03:58] LABS: Hematocrit 23.9 % (36.0-46.0); Hemoglobin 7.8 g/dL (12.2-16.2); Mean Corpuscular Hemoglobin 27.1 pg (28.0-32.0); Mean Corpuscular Volume 82.8 fL (80.0-100.0)
[2025-03-26 04:13] LABS: Potassium 3.5 mmol/L (3.5-5.1); Sodium 139 mmol/L (136-145)
[2025-03-26 04:14] LABS: Anion Gap 13 (5-15); Carbon Dioxide 28 mmol/L (20-31)
[2025-03-26 04:19] LABS: BUN/Creatinine Ratio 22.3 (10.0-20.0)
[2025-03-26 04:37] LABS: Blood Urea Nitrogen 55 mg/dL (9-23); Calcium 8.6 mg/dL (8.7-10.4); Chloride 98 mmol/L (98-107); Glucose 134 mg/dL (74-106); Magnesium 1.5 mg/dL (1.6-2.6)
--- NOTE | 2025-03-26 07:21 | ECG ---
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
--- NOTE | 2025-03-26 07:50 | DVHPN2 ---
Progress Note - Dictate Date Seen: Mar 26, 2025 Has the PT tested + for MRSA If YES, has PT been informed?: No Medical Necessity Reason Pt with a Central, PICC or Fol: Yes The following are medically ne: Itjerina Catheter Reason for tijerina catheter: Strict I&O vital signs Vital Sign Date Time Temp Pulse Resp B/P (MAP) Pulse Ox O2 Delivery O2 Flow Rate FiO2 03/26/25 07:00 115 20 112/60 (77) 95 03/26/25 06:02 Nasal Cannula* 4 36 03/26/25 06:00 99.6 99.6 Total Intake and Output 03/25/25 03/25/25 03/26/25 15:00 23:00 07:00 Intake Total 304.95 ml 419.521 ml 318.908 ml Output Total 500 ml 250 ml Balance 304.95 ml -80.479 ml 68.908 ml medications Current Medications Medications Dose Ordered Sig/Sravan Route Start Time Stop Time Status Last Admin Dose Admin Acetaminophen/ Hydrocodone Bitart 1 tab Q4HP PRN PO 03/20/25 12:15 03/25/25 21:24 1 TAB Ondansetron HCl 4 mg Q4HP PRN IV 03/20/25 12:15 03/26/25 00:08 4 MG Docusate Sodium 100 mg BIDPRN PRN PO 03/20/25 12:15 Acetaminophen 650 mg Q6HP PRN PO 03/20/25 12:15 03/23/25 14:02 650 MG Nitroglycerin 0.4 mg Q5MINP PRN SL 03/20/25 12:15 03/25/25 09:26 0.4 MG Morphine Sulfate 2 mg Q30M PRN IV 03/20/25 12:15 03/25/25 09:43 2 MG Allopurinol 100 mg DAILY PO 03/21/25 10:00 03/25/25 11:21 100 MG Apixaban 2.5 mg BID PO 03/20/25 22:00 03/25/25 21:21 2.5 MG Cilostazol 100 mg BID PO 03/20/25 22:00 03/25/25 21:21 100 MG Patient Own Medication 1 tab DAILY PO 03/21/25 10:00 UNV Patient Own Medication 1 tab DAILY PO 03/21/25 10:00 UNV Gabapentin 300 mg DAILY PO 03/21/25 10:00 03/25/25 11:21 300 MG Levothyroxine Sodium 112 mcg DAILY PO 03/21/25 10:00 03/23/25 09:14 112 MCG Levothyroxine Sodium 25 mcg DAILY PO 03/21/25 10:00 03/23/25 09:14 25 MCG Spironolactone 50 mg DAILY PO 03/21/25 10:00 03/25/25 14:02 50 MG Diphenhydramine HCl 50 mg [id number] PRN PO 03/21/25 16:45 03/21/25 22:57 50 MG Albuterol 2.5 mg Q6HR NEB 03/21/25 18:00 03/26/25 06:00 2.5 MG Ipratropium [place] 0.5 mg Q6HWA NEB 03/21/25 18:00 03/26/25 06:00 0.5 MG Patient Own Medication 1 tab BID PO 03/21/25 22:00 03/25/25 21:21 1 TAB Throat Lozenges 1 liv Q2HP PRN MT 03/23/25 04:00 03/23/25 14:52 1 LIV Piperacillin Sod/ Tazobactam Sod 100 ml @ 25 mls/hr Q8HR IV 03/24/25 14:00 03/26/25 05:23 25 MLS/HR Furosemide 40 mg DAILY IV 03/25/25 10:00 03/25/25 13:22 40 MG Norepinephrine Bitartrate 250 ml @ 3.75 mls/hr Q24H IV 03/25/25 16:30 03/25/25 21:20 3.75 MLS/HR Pantoprazole Sodium 40 mg DAILY IV 03/26/25 10:00 laboratory and microbiology Laboratory Tests 03/26/25 03:30 Test 03/26/25 03:30 Range/Units Serum Glucose 134 H 74-106 mg/dL Assessment/Plan Patient is a 74-year-old female who was admitted on March 20, 2025 for abdominal pain/nausea/vomiting. She is admitted to ICU for septic shock. On March 24, 2025, cardiology was involved for cardiac aspects of care. Patient is known to our practice from before and previous admissions. She is known to have significant alcohol abuse (drinks whiskey every day) and also history of pulmonary hypertension/type 2 pulmonary hypertension, diastolic heart failure. Does have poor functional capacity and is bed-bound. Is significantly morbidly obese. Does have baseline history of atrial fibrillation and is on Eliquis as outpatient. Is found to have septic shock and possible pelvic abscess. Is seen by surgery/Urology/pulmonary/GI. Denies chest pains. Denies palpitations. Is noncompliant with medication and followups. While being managed in ICU was found to have atrial fibrillation with RVR. She mentions that she does go to rn clinical quality regularly. She has had multiple surgeries in the bilateral feet. She also has history of COPD/asthma with chronic respiratory failure (on home oxygen). Morbidly obese. Not in acute distress. No JVD. Mucosa is dry. Mucosa is pink. No JVD. No carotid bruit. Not using accessory muscles of breathing. Scattered rhonchi in the lungs is heard. Cardiac: Irregular, no thrill. Abdomen is obese and soft. There is no gross hepatomegaly, but it is presence can not be ruled out (body habitus, morbidly obese). There is 3+ edema in bilateral lower extremities which extends to abdominal wall. Past medical history includes morbid obesity, atrial fibrillation (on Eliquis as outpatient), COPD/asthma with chronic respiratory failure on home oxygen, morbid obesity, hypertension, hyperlipidemia, chronic lymphedema, Diastolic heart failure with type 2 pulmonary hypertension, rheumatoid arthritis, osteoarthritis, peripheral vascular disease, CKD (stage IV), anemia, alcohol abuse, neuropathy, gout, old history of right and left foot fracture and their management, status post right knee replacement, status post , bed-bound at baseline and functional quadriplegia. Patient drinks whiskey daily. Goes to Nephrology regularly. Reportedly, there has been some concern about going to have fistula creation on preparation for dialysis? Echocardiogram of January 03 2024 (performed in [facility]) revealed ejection fraction of 60%, mild biatrial enlargement, mild MR/TR and right ventricular systolic pressure of 31 mm Hg. Echocardiogram of (performed in [facility]) revealed: EF of 50 to 55%, Dilated right ventricle with normal systolic function. Severe biatrial enlargement. Mild AI, mild to moderate MR, moderate TR and RVSP of 51 mmHg. Ascending Aorta was 3.7 cm. Echocardiogram of November 09, 2024 revealed ejection fraction of 72%, mild right ventricular enlargement, moderate biatrial enlargement, mild to moderate tricuspid regurgitation, mild mitral regurgitation, right ventricular systolic pressure 54 mm Hg Echocardiogram of February 23, 2025 revealed ejection fraction of around 50%, mild concentric left ventricular hypertrophy, right ventricular enlargement with preserved systolic function. Biatrial enlargement, mild aortic insufficiency, [id number] mitral regurgitation and tricuspid regurgitation. IVC was significantly dilated. Right ventricular systolic pressure of of 55 mm Hg WBC: 5.2 - 8.2-12.3 - 8.5 - 11.3 - 13.7 - 21.6 Hemoglobin: 6.7 - 8.6 - 8.1 - 7.6 - 7.9 - 7.7 - 7.8 Platelet: 57 - 73 - 91 - 108 - 159 - 189 - 257 Creatinine: 3.29 - 2.63 - 2.77 - 2.59 - 2.13 - 1.98 - 1.98 - 2.47 Potassium: 3.9 - 3.4 - 3.8 - 3.3 - 3.4 - 3.9 - 3.5 - 3.5 Sodium: 124 - 129 - 129 - 131 - 135 - 138 - 138 - 139 AST/ALT: 143/111 - 347/315 - 48/358 Troponin (high sensitive): 32 - 31 - 34 TSH: 0.17 - 0.15 T3: Pending T4: Pending Free T4: Pending Free T3: Pending Chest x-ray revealed: IMPRESSION: Cardiomegaly. Repeat chest x-ray revealed: IMPRESSION: 1. Cardiomegaly with increased interstitial prominence suggestive of CHF exacerbation. 2. Pulmonary arterial hypertension. Repeat chest x-ray revealed: IMPRESSION: Cardiomegaly with mild pulmonary congestion. . Repeat chest x-ray revealed: IMPRESSION: Cardiomegaly with pulmonary congestion and edema. Superimposed pneumonia cannot be excluded. Repeat chest x-ray revealed: IMPRESSION: Worsening right lower lung airspace disease. Suggestion of small bilateral pleural effusions. Abdominal ultrasound revealed: IMPRESSION: Small left hydronephrosis Renal scan revealed: IMPRESSION: Bilateral renal obstruction is present which is not response to Lasix administration suggesting that the kidney may be minimally functional. Abdomen and pelvic CT scan revealed: IMPRESSION: Moderate left hydroureteronephrosis. Suggestion of possible small abscess formation in the left hemipelvis associated with the sigmoid colon measuring 5.7 cm. This may represent site of ureteral obstruction. Clinical correlation advised. Examination is limited secondary to lack of intravenous and oral contrast administration. EKG revealed atrial fibrillation with RVR Tele reveals atrial fibrillation with RVR Echocardiogram revealed: Left ventricle: Mild concentric left ventricular hypertrophy was seen. LVEF was around 50%. Right ventricle was mildly dilated with reduced systolic function. Both atria were dilated. Aortic valve was not well visualized. There was no aortic insufficiency/stenosis. There was mild mitral regurgitation. There was [id number]-fmhaxtyw tricuspid regurgitation. Pulmonary valve was not well visualized. Right ventricular systolic pressure was assessed at 50 mm Hg. IVC was dilated. There was no pericardial effusion. Patient is a 74-year-old female with known history of diastolic heart failure with type 2 pulmonary hypertension who presented with abdominal pain. He is admitted to ICU with septic shock. Did have thrombocytopenia which slowly improved. Was significantly anemic and was transfused PRBC. There has been question about pelvic abscess and the patient is on antibiotics. Patient is being followed by surgery/Urology/pulmonary/GI. It is of note that the patient does have history of significant alcohol abuse (drinks good amount of whiskey daily) which could contribute to to some component of the clinical picture. Does have baseline history of pulmonary hypertension. Usually is on some amount of diuretic (Bumex) as outpatient. Clinically, the patient does have dry mucosa and maybe behind fluids at the time of evaluation. Does have baseline poor functional capacity. Does have history of recent sepsis. Significant anemia, status post PRBC transfusion Thrombocytopenia, resolved Septic shock SCOT on CKD Hydronephrosis Pelvic abscess Transaminitis Acute on chronic diastolic heart failure Pulmonary Hypertension, type 2 Alcohol abuse Morbid obesity Poor functional capacity Bed-bound at baseline Atrial fibrillation with RVR Hyperlipidemia Osteoarthritis Rheumatoid arthritis Peripheral vascular disease Cardiac suggestion for management: Manage in ICU Follow-up electrolytes and kidney function tests and correct abnormalities Full anticoagulation (on Eliquis presently), long-term May need some fluid resuscitation Consider Nephrology evaluation Follow up result of T3, T4, Free T3, Free T4 IV amiodarone Hold Lasix today Pressor support at this point to keep mean arterial pressure above 65 Evaluation and management of sepsis/infection as per primary team Evaluation and management of alcohol abuse/prevention of withdrawal as per primary team Evaluation and management of pelvic abscess/hydronephrosis as per primary team/surgery/Urology Further evaluation and management depends on the above and clinical course A total of 75 minutes was spent reviewing the patient record, examining the patient, making a diagnostic and therapeutic plan, discussing this plan with medical personnel, following up on diagnostic studies and following the patient for clinical stability excluding any and all procedures. At least 50% of this time was spent in direct, [id number] contact. Thank you for allowing me to participate in this patient's care. Further recommendations will depend on patient's clinical course. Please do not hesitate to contact me if you have any questions or concerns. This medical document was created using electronic medical record system with [employer] dictation system. Although this document has been carefully reviewed, there may still be some phonetic and typographical errors. These areas are purely typographical due to the imperfection of the software programs, and do not reflect any compromise in the patient's medical care. Dietary Evaluation Review Comments: Renal Specific 60g CCHO-60 Cardiac Diet d/t SCOT over CKD and low GFR Expected Outcomes/Goals: less uremic symptoms, better weight management Plan discussed with: Patient, Other (nurse) CC Plasma Assessment Blood Product Administration S: [id number] AUSTIN ROMERO MD Mar 26, 2025 07:50
--- NOTE | 2025-03-26 07:59 | DVHSR ---
APPROVED REPORT EXAM: Two-dimensional and M-mode echocardiogram with Doppler and color Doppler. Blood Pressure: 102/49 mmHg INDICATION Atrial Fibrillation RISK FACTORS Obesity: Height: 5'5", Weight: 285 DIMENSIONS LVDd4.9 (3.8-5.7cm)LA (2D)4.1 (1.9-4.0cm)Aortic Root3.4 (2.0-3.7cm) LVDs3.4 (2.5-4.0cm)LA (MM) (1.9-4.0cm)Aortic Cusp Exc1.4 (1.5-2.0cm) EF (%) 50.0 (55-70%)Rt. Atrium6.1 (1.9-4.0cm)Asc. Aorta cm IVSd0.9 (0.7-1.1cm)RV (D) (1.8-2.4cm) PWd1.0 (0.7-1.1cm) Mitral Valve MitralMitral Stenosis E wave1.23m/sMV Mean GR.mmHg E/A ratio0.02D MVAcm2 Aortic Valve Aortic ValveAortic Stenosis V11.14m/Angie Mean GR.7mmHg V22.00m/Angie Peak GR.16mmHg LVOT Diameter2.1 (1.8-2.4cm)Doppler AVA1.97cm2 Pulmonic Valve V21.30m/s Tricuspid Valve TR Velocity2.94m/s [id number] Other Information Quality : Rhythm : Atrial Fibrillation Technically limited study due to body habitus and rhythm. Conclusion Limited echocardiogram revealed: Left ventricle: Mild concentric left ventricular hypertrophy was seen. LVEF was around 50%. Right ventricle was mildly dilated with reduced systolic function. Both atria were dilated. Aortic valve was not well visualized. There was no aortic insufficiency/stenosis. There was mild mi tral regurgitation. There was dhye-vq-tmrnyfod tricuspid regurgitation. Pulmonary valve was not wel l visualized. Right ventricular systolic pressure was assessed at 50 mm Hg. IVC was dilated. There was no pericardial effusion.
[2025-03-26 08:01] LABS: INR 3.46 (0.9-1.15); Partial Thromboplastin Time 61.1 SEC (24.5-34.5); Prothrombin Time 32.4 sec (9.3-11.8)
--- NOTE | 2025-03-26 10:07 | DVHPN2 ---
Progress Note - Dictate Date Seen: Mar 26, 2025 Has the PT tested + for MRSA If YES, has PT been informed?: No Medical Necessity Reason Pt with a Central, PICC or Fol: Yes The following are medically ne: Tijerina Catheter Reason for tijerina catheter: Strict I&O vital signs Vital Sign Date Time Temp Pulse Resp B/P (MAP) Pulse Ox O2 Delivery O2 Flow Rate FiO2 03/26/25 07:00 115 20 112/60 (77) 95 03/26/25 06:02 Nasal Cannula* 4 36 03/26/25 06:00 99.6 99.6 Total Intake and Output 03/25/25 03/25/25 03/26/25 15:00 23:00 07:00 Intake Total 304.95 ml 419.521 ml 318.908 ml Output Total 500 ml 250 ml Balance 304.95 ml -80.479 ml 68.908 ml medications Current Medications Medications Dose Ordered Sig/Sravan Route Start Time Stop Time Status Last Admin Dose Admin Acetaminophen/ Hydrocodone Bitart 1 tab Q4HP PRN PO 03/20/25 12:15 03/25/25 21:24 1 TAB Ondansetron HCl 4 mg Q4HP PRN IV 03/20/25 12:15 03/26/25 08:18 4 MG Docusate Sodium 100 mg BIDPRN PRN PO 03/20/25 12:15 Acetaminophen 650 mg Q6HP PRN PO 03/20/25 12:15 03/23/25 14:02 650 MG Nitroglycerin 0.4 mg Q5MINP PRN SL 03/20/25 12:15 03/25/25 09:26 0.4 MG Morphine Sulfate 2 mg Q30M PRN IV 03/20/25 12:15 03/25/25 09:43 2 MG Allopurinol 100 mg DAILY PO 03/21/25 10:00 03/25/25 11:21 100 MG Apixaban 2.5 mg BID PO 03/20/25 22:00 03/25/25 21:21 2.5 MG Cilostazol 100 mg BID PO 03/20/25 22:00 03/25/25 21:21 100 MG Patient Own Medication 1 tab DAILY PO 03/21/25 10:00 UNV Patient Own Medication 1 tab DAILY PO 03/21/25 10:00 UNV Gabapentin 300 mg DAILY PO 03/21/25 10:00 03/25/25 11:21 300 MG Levothyroxine Sodium 112 mcg DAILY PO 03/21/25 10:00 03/23/25 09:14 112 MCG Levothyroxine Sodium 25 mcg DAILY PO 03/21/25 10:00 03/23/25 09:14 25 MCG Spironolactone 50 mg DAILY PO 03/21/25 10:00 03/25/25 14:02 50 MG Diphenhydramine HCl 50 mg [id number] PRN PO 03/21/25 16:45 03/21/25 22:57 50 MG Albuterol 2.5 mg Q6HR NEB 03/21/25 18:00 03/26/25 06:00 2.5 MG Ipratropium [place] 0.5 mg Q6HWA NEB 03/21/25 18:00 03/26/25 06:00 0.5 MG Patient Own Medication 1 tab BID PO 03/21/25 22:00 03/25/25 21:21 1 TAB Throat Lozenges 1 liv Q2HP PRN MT 03/23/25 04:00 03/23/25 14:52 1 LIV Piperacillin Sod/ Tazobactam Sod 100 ml @ 25 mls/hr Q8HR IV 03/24/25 14:00 03/26/25 05:23 25 MLS/HR Furosemide 40 mg DAILY IV 03/25/25 10:00 03/25/25 13:22 40 MG Norepinephrine Bitartrate 250 ml @ 3.75 mls/hr Q24H IV 03/25/25 16:30 03/25/25 21:20 3.75 MLS/HR Pantoprazole Sodium 40 mg DAILY IV 03/26/25 10:00 laboratory and microbiology Laboratory Tests 03/26/25 03:30 Test 03/26/25 03:30 Range/Units Serum Glucose 134 H 74-106 mg/dL Assessment/Plan review of renal scan - pattern is consistent with left sided obstruction (functional) no stone identified pt appears to be developing sepsis due to MDR UTI in the setting of obstructive uropathy - consult ID - Consult IR for placement of left PCN Problems(with codes): (1) Acute on chronic diastolic CHF (congestive heart failure) (2) COPD with acute exacerbation (3) Shortness of breath (4) Acute on chronic systolic (congestive) heart failure (5) Cardiac volume overload (6) Failure to thrive (7) Elevated troponin (8) Atrial fibrillation with RVR (9) Medication noncompliance due to cognitive impairment (10) Hydronephrosis (11) Acute on chronic kidney failure (12) Pelvic abscess in female (13) Generalized weakness (14) Sepsis (15) E. coli UTI (urinary tract infection) (16) Symptomatic anemia Prognosis guarded Dietary Evaluation Review Comments: Renal Specific 60g CCHO-60 Cardiac Diet d/t SCOT over CKD and low GFR Expected Outcomes/Goals: less uremic symptoms, better weight management Plan discussed with: Patient Total Time (mins): 21 CC Plasma Assessment Blood Product Administration S: [id number] MANOLO ANDERS NP Mar 26, 2025 10:07
[2025-03-26] MEDS: PANTOPRAZOLE 40 MG/10 ML VIAL INJ IV SCH (10:16)
[2025-03-26 11:40] LABS: Free T3 1.55 pg/mL (2.3-4.2)
[2025-03-26 11:41] LABS: Free T4 (Free Thyroxine) 1.27 ng/dL (0.89-1.76)
--- NOTE | 2025-03-26 13:00 | DVH ---
CT CT AB PEL WO CON-NO ORAL OR IV INDICATION: EVALUATION OF LEFT AND RIGHT KIDNEYS EXAM DATE: 03/26/2025 11:53 AM COMPARISON: CT CT AB PEL WO CON-NO ORAL OR IV on DOS: 03/20/25, [facility] on DOS: 01/17/22 RADIATION DOSE: CTDIvol: 25.57 mGy, DLP: 1556.4 mGy*cm PROCEDURE: Helical CT images were obtained of the abdomen and pelvis without IV contrast Sagittal and coronal reconstructions are provided. ORAL CONTRAST: None. ADDITIONAL IMAGES / REFORMATS: None All C T scans at this medical facility are performed using dose modulation techniques as appropriate to a p erformed exam including the following: Automated exposure control was utilized; adjustment of the MA and/or KV according to patient size; and use of iterative reconstruction technique. FINDINGS: LUNG BASE: Bibasilar atelectasis with trace pleural effusion. LIVER: Normal. GALLBLADDER AND BILIARY TREE: No calcified gallstones. Normal caliber wall. No intra- or extrahepatic biliary ductal dilation. PANCREAS: Normal. SPLEEN: Normal. BOWEL: Sigmoid colonic diverticulitis with an adjacent 6 cm fluid collection with gas, could be an a bscess. 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 ADRENALS: Normal. KIDNEYS AND URETER: Possible trace left hydronephrosis with perinephric fat stranding. BLADDER: Decompressed with a Espinal. REPRODUCTIVE ORGANS: Normal. LYMPH NODES:No lymphadenopathy. PERITONEUM: No ascites or free air. No other fluid collection. VESSELS: Scattered atherosclerotic calcifications are noted. RETROPERITONEUM: Normal. ABDOMINAL WALL: Normal. BONES: Scattered osseous degenerative changes are noted. IMPRESSION: Sigmoid colonic diverticulitis with an adjacent 6 cm fluid collection with gas, could be an abscess. 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 Possible trace left hydronephrosis with perinephric fat stranding.
[2025-03-26] MEDS: LIDOCAINE 2%HCL (LOCAL ANESTH.) INJ 10ml MDV ONE (13:14)
[2025-03-26] MEDS: fentaNYL CITRATE 100 MCG/2 ML VL ONE (13:28)
[2025-03-26] MEDS: MIDAZOLAM HCL 2MG/2ML 2ml VIAL (1mg/ml) ONE (13:28)
--- NOTE | 2025-03-26 14:55 | MEDREC ---
[facility] Intervention Section I [facility] Intervention: Review courses of therapy (PLEASE CONSIDER SWITCHING ZOSYN TO ERTAPENEM OR MEROPENEM FOR ESBL MICROORGANIMS ) RADHA GOODMAN PHARMACIST Mar 26, 2025 14:55
--- NOTE | 2025-03-26 15:24 | DVH ---
CT ABDOMEN WITHOUT CONTRAST, HISTORY: ABSCESS DRAIANGE COMPARISON: None PROCEDURE: Informed consent was obtained. The patient was placed supine on the CT scanner. IV sedatio n was administered. The fluid collection was localized under CT scan and the overlying skin prepped w ith chlorhexidine which was allowed to dry and draped in the usual sterile fashion and infiltrated wi th Xylocaine. Time out was performed. With CT guidance, a 19-gauge centesis needle catheter was advan pranay via trans-peritoneal approach into the fluid collection. Following aspiration of a small amount o f fluid, a 0.035 wire was advanced into the fluid collection. Placement was confirmed with CT scan. A fter serial dilatation, a 8 [place] multipurpose pigtail drain was placed into the collection. Approxi mately 30 cc of thick purulent fluid was aspirated, with specimen sent for appropriate laboratory/cyt ology/laboratory and cytology evaluation. The drain was sutured at the skin surface and connected to suction drainage. No immediate complication was noted. Post procedure CT imaging through the drain si te was obtained. DLP = 5076 mGy-cm. SEDATION: Dr. An Ardon was personally responsible for the administration of moderate sedation during the procedure performed, including the use of an independent trained observer who had no other duties during the procedure. The drugs utilized were IV fentanyl and versed (see nursing log for details). The total time of supervision by the attending physician was approximately 60 minutes. FINDINGS: Limited CT scan of through the pelvis demonstrates a small complex sized fluid collection i n the left hemipelvis. Collection appears complex. Post procedure scan shows pigtail drain within the collection , which is decreased in size. No immediate complication was identified. IMPRESSION: CT guided placement of 8 german pigtail drain into a left hemipelvic abscess with 30 mL purulent flu id aspirated. PLAN: Routine tube care.
[2025-03-26] MEDS: SODIUM CHLORIDE 0.9% 1,000 ML IV SCH (15:56)
--- NOTE | 2025-03-26 16:52 | DVHINCON2 ---
Date of service: Mar 26, [address] Celis Reason for Consultation Elevated creatinine History of Present Illness Zoila Gold is a 74-year-old female with past medial history of COPD, 3L/NC home oxygen, CHF, hypertension, hyperlipidemia, diabetes, and chronic renal disease, who came to the hospital for abdominal pain. Patient states she has been experiencing abdominal pain with associated nausea and vomiting for about 2-3 days. The pain was worsening and she was not able to eat prompting her to come to the hospital. While in the ER she was found to be anemic, hypotensive, and septic. Patient denies any signs/symptoms of bleeding or any recent sick contacts. During the hospital course patient underwent a CT of the abdomen which showed evidence of sigmoid colon abscess. Patient underwent drainage of the same today. She has also been transfused multiple units of PRBCs. Nephrology has been consulted for elevated creatinine. Culture showing E coli and Klebsiella pneumonia ESBL Patient is seen and examined at bedside in the ICU. On Levophed. Past Medical History CHF, HTN, hyperipidemia, COPD (3L home oxygen),CKD,DM II Past Surgical History Past Surgical History: Total knee replacement (right) Family History: Cerebrovascular accident (CVA) G8 MOTHER Chronic obstructive pulmonary disease FH: CHF (congestive heart failure) G8 MOTHER Hypertension G8 MOTHER Social History Smoke: No ALCOHOL: none Drugs: None Lives: with Family Domestic Violence: Neg Allergies: Coded Allergies: Zinc Oxide (Verified Allergy, Mild, 03/07/25) Sulfa Antibiotics (Verified Allergy, Unknown, 01/16/22) Home Meds Active Scripts Prednisone (Prednisone) 20 Mg Tab, 20 MG PO BID for 5 Days, #10 TAB Prov:VÍCTOR HAMILTON PMP PROJECT MANAGER 01/20/22 Reported Medications Amiodarone HCl (Amiodarone HCl) 200 Mg Tab, 1 TAB PO BID 03/20/25 Levothyroxine Sodium (Levothyroxine Sodium) 137 Mcg Tab, 1 TAB PO DAILY 03/20/25 Ropinirole Hydrochloride (Ropinirole Hcl) 0.25 Mg Tab, 1 TAB PO BID for 90 Days, #180 02/26/25 Spironolactone (Spironolactone) 50 Mg Tab, 1 TAB PO DAILY for 90 Days, #90 02/26/25 Meclizine HCl (Meclizine Hydrochloride) 25 Mg Tab, 1 TAB PO DAILY PRN for 90 Days, #90 02/26/25 Midodrine Hcl (Midodrine Hcl) 10 Mg Tab, 1 TAB PO BID for 90 Days, #180 02/26/25 Potassium Chloride (Potassium Chloride ER) 20 Meq Tab, 1 TAB PO BID for 90 Days, #180 02/26/25 Fluticasone-Salmeterol (Fluticasone Propionate/SA 500-50 Mcg/Dose) 1 Aer Aer, 1 PUFF PO BID for 30 Days, #60 02/26/25 Lactulose (Lactulose) 10 Gm/15 Ml Yoselyn, 15 ML PO DAILY for 30 Days, #450 02/26/25 Gabapentin (Gabapentin) 300 Mg Cap, 300 MG PO BID 11/08/24 Pantoprazole Sodium Sesquihydr (Pantoprazole Sodium) 40 Mg Tab, 1 TAB PO DAILY 11/08/24 Atorvastatin Calcium (ATORVASTATIN CALCIUM) 20 Mg Tab, 1 TAB PO DAILY 11/08/24 Bumetanide (Bumetanide) 2 Mg Tab, 1 TAB PO BID 11/08/24 Apixaban Base (ELIQUIS) 2.5 Mg Tab, 1 TAB PO BID 11/08/24 Loperamide HCl (Imodium A-D) 1 Mg/7.5 Ml Liq, 1 MG PO, LIQ 01/17/22 Clobetasol Propionate (Clobetasol Propionate) 0.05 % Oin, 1 APPLIC TOP BID, #15 GRAMS 01/17/22 Hydroxychloroquine Sulfate (PLAQUENIL) 200 Mg Tab, 1 TAB PO DAILY, #180 TAB 3 Refills 01/17/22 Furosemide (Furosemide) 40 Mg Tab, 1 TAB PO DAILY, #30 TAB 5 Refills 01/17/22 Fluticasone-Salmeterol (Advair Diskus 500/50) 1 Puff Ih, 1 PUFF INH BID, #1 INHALER 5 Refills 01/17/22 Albuterol Sulfate (VENTOLIN MDI) 90 Mcg Ih, 90 MCG IN Q6HP for 30 Days, MCG 01/17/22 Allopurinol (Allopurinol) 100 Mg Tab, 100 MG PO DAILY for 30 Days, MG 01/17/22 Amlodipine Besylate (Amlodipine Besylate) 5 Mg Tab, 5 MG PO DAILY for 30 Days, MG 01/17/22 Pantoprazole Sodium (PANTOPRAZOLE SODIUM) 40 Mg Inj, 40 MG IV DAILY, INJ 01/17/22 Cilostazol (Cilostazol) 100 Mg Tab, 100 MG PO BID for 30 Days, MG 01/17/22 Methocarbamol (Methocarbamol) 750 Mg Tab, 750 MG PO BID, TAB 01/17/22 Sotalol Hcl (Sotalol Hcl) 80 Mg Tab, 0.5 TAB PO BID, #60 TAB 5 Refills 01/17/22 Meclizine HCl (Meclizine 25) 25 Mg Tab, 25 MG PO BID, TAB 01/17/22 Discontinued Reported Medications Allopurinol (Allopurinol) 100 Mg Tab, 1 TAB PO DAILY 11/08/24 Atorvastatin Calcium (ATORVASTATIN CALCIUM) 20 Mg Tab, 1 TAB PO DAILY, #30 TAB 5 Refills 01/17/22 Gabapentin (Gabapentin) 100 Mg Cap, 400 MG PO BID for 30 Days, MG 01/17/22 Discontinued Scripts Apixaban Base (ELIQUIS) 5 Mg Tab, 5 MG PO BID for 30 Days, #60 TAB Prov:VÍCTOR HAMILTON PMP PROJECT MANAGER 01/20/22 Doxycycline (Monohydrate) (Doxycycline) 100 Mg Tab, 100 MG PO BID for 7 Days, #14 TAB Prov:VÍCTOR HAMILTON PMP PROJECT MANAGER 01/20/22 Current Medications Current Medications Medications (Trade) Dose Ordered Sig/Sravan Route PRN Reason Start Time Stop Time Status Last Admin Pantoprazole Sodium (Protonix) 40 mg DAILY IV 03/26/25 10:00 03/26/25 10:16 Sodium Chloride 1,000 ml @ 50 mls/hr Q20H IV 03/26/25 14:15 03/26/25 15:56 Magnesium Oxide (Mag-Ox Tablet) 400 mg DAILY PO 03/27/25 10:00 Review of Systems TWELVE POINT REVIEW OF SYSTEM NEGATIVE EXCEPT STATED IN THE HPI Vital Signs Vital Signs Date Time Temp Pulse Resp B/P (MAP) Pulse Ox O2 Delivery O2 Flow Rate FiO2 03/26/25 16:20 74/41 03/26/25 10:15 120 19 95 03/26/25 10:10 Nasal Cannula* 3 32 03/26/25 08:00 97.7 97.7 Physical Exam Patient was resting comfortably in no acute distress HEENT: Normocephalic, no JVD Lungs: Bilateral good air entry CVS: S1, S2 regular rate rhythm Abdomen: Soft, bowel sounds present TRADE MARKER: No focal deficits Extremities: Edema present Labs/Diagnostic Data Labs Test 03/26/25 07:34 03/26/25 03:30 03/25/25 08:55 03/25/25 03:18 Range/Units Prothrombin Time 32.4 H 9.3-11.8 sec Prothrombin Time INR 3.46 H 0.9-1.15 Activated Partial Thromboplast Time 61.1 H 24.5-34.5 SEC White Blood Count 21.6 #H 4.4-10.8 10^3/uL Red Blood Count 2.88 L 4.0-5.20 10^6/uL Hemoglobin 7.8 L 12.2-16.2 g/dL Hematocrit 23.9 L 36.0-46.0 % Mean Corpuscular Volume 82.8 80.0-100.0 fL Mean Corpuscular Hemoglobin 27.1 L 28.0-32.0 pg Mean Corpuscular Hemoglobin Concent 32.8 32.0-36.0 g/dL Red Cell Distribution Width 17.4 H 11.8-14.3 % Platelet Count 257 140-450 10^3/uL Mean Platelet Volume 6.5 L 6.9-10.8 fL Neutrophils (%) (Auto) 91.5 H 37.0-80.0 % Lymphocytes (%) (Auto) 2.8 L 10.0-50.0 % Monocytes (%) (Auto) 5.6 0.0-12.0 % Eosinophils (%) (Auto) 0.0 0.0-7.0 % Basophils (%) (Auto) 0.1 0.0-2.0 % Neutrophils # (Auto) 19.8 H 1.6-8.6 10 ^3/uL Lymphocytes # (Auto) 0.6 0.4-5.4 10 ^3/uL Monocytes # (Auto) 1.2 0-1.3 10 ^3/uL Eosinophils # (Auto) 0 0-0.8 10 ^3/uL Basophils # (Auto) 0 0-0.2 10 ^3/uL Nucleated Red Blood Cells 0.3 % Sodium Level 139 136-145 mmol/L Potassium Level 3.5 3.5-5.1 mmol/L Chloride Level 98 98-107 mmol/L Carbon Dioxide Level 28 20-31 mmol/L Anion Gap 13 5-15 Blood Urea Nitrogen 55 H 9-23 mg/dL Creatinine 2.47 H 0.550-1.02 mg/dL Glomerular Filtration Rate Calc 20 >90 mL/min BUN/Creatinine Ratio 22.3 H 10.0-20.0 Serum Glucose 134 H 74-106 mg/dL Calcium Level 8.6 L 8.7-10.4 mg/dL Magnesium Level 1.5 L 1.6-2.6 mg/dL Free Thyroxine (T4) Calculated 1.27 0.89-1.76 ng/dL Free Triiodothyronine (T3) pg/mL 1.55 L 2.3-4.2 pg/mL Total Triiodothyronine (TT3) 0.40 L 0.60-1.81 ng/mL Thyroid Stimulating Hormone (TSH) 0.15 L 0.55-4.78 uIU/mL Test 03/24/25 23:00 03/24/25 18:00 03/23/25 04:30 03/23/25 04:20 Range/Units Total Bilirubin 0.8 0.2-1.0 mg/dL Aspartate Amino Transferase (AST) 48 H <34 U/L Alanine Aminotransferase (ALT) 358 H 7-40 U/L Alkaline Phosphatase 173 H 46-116 U/L Total Protein 5.7 5.7-8.2 g/dL Albumin 3.1 L 3.2-4.8 g/dL Blood Gas Specimen Type Arterial Blood Gas Sample Site Right radial Blood Gas Patient Temperature 37.0 Arterial Blood Date Drawn [id number] Arterial Blood pH 7.405 7.350-7.450 Arterial Blood Partial Pressure CO2 37.8 32.0-45.0 mmHg Arterial Blood Partial Pressure O2 103.6 83.0-108.0 mmHg Arterial Blood HCO3 23.2 21.0-28.0 mmol/L Arterial Blood Oxygen Saturation 97.4 94.0-98.0 % Arterial Blood Base Excess -1.3 -2.0-3.0 mmol/L Arterial Blood Oxyhemoglobin 96.7 94.0-98.0 % Arterial Blood Carboxyhemoglobin 0.3 L 0.5-1.5 % Arterial Blood Methemoglobin 0.4 0.0-1.5 % [place] Test Yes Blood Gas Total Hemoglobin 9.50 L 12.0-16.0 g/dL Blood Gas Modality Nasal cannula FiO2 % 32.0 Group A Streptococcus Rapid Negative SARS-CoV-2 Antigen (Rapid) Negative NEGATIVE Test 03/21/25 05:21 03/20/25 09:34 03/20/25 08:30 03/20/25 05:31 Range/Units Amylase Level 21 L 30-118 U/L Lipase 19 12-53 U/L Urine Color Colorless Yellow Urine Clarity Turbid H Clear Urine pH 5.0 5.0-9.0 Urine Specific [place] 1.015 1.001-1.035 Urine Protein Negative Negative Urine Ketones Negative Negative Urine Blood Negative Negative /uL Urine Nitrite Negative Negative Urine Bilirubin Negative Negative Urine Urobilinogen Normal Negative mg/dL Urine Leukocyte Esterase 3+ Negative /uL Urine RBC 1 0 - 4 /hpf Urine Microscopic WBC 255 H 0-5 /HPF Urine Squamous Epithelial Cells Few <5 /hpf Urine Bacteria Few H None Seen /hpf Urine Glucose Normal Normal mg/dL Troponin I High Sensitivity 34 </=34 ng/L Lactic Acid Level 1.2 0.4-2.0 mmol/L Test 03/20/25 05:17 Range/Units POC Glucose 78 70-106 mg/dl Microbiology Date/Time Source Procedure Growth Status 03/23/25 04:30 Throat Nose/Throat Culture - Final Complete 03/21/25 18:00 Urine - Catheterized Urine Culture - Final Escherichia coli - ESBL Klebsiella pneumoniae - ESBL Complete 03/20/25 21:52 Nose MRSA Screen - Final Complete Assessment Acute kidney injury superimposed on CKD 4 Sepsis with a urine culture growing E coli and Klebsiella both of which are ESBL Septic shock Status post drainage of left pelvic abscess Left hydronephrosis Acute on chronic diastolic heart failure Anemia status post transfusion of PRBC Pulmonary hypertension Atrial fibrillation Bed-bound patient Plan/Recommendation Lasix has been put on hold. We will also hold off on Aldactone. Continue with the IV hydration. Consider ID evaluation for sepsis Urology has recommended percutaneous nephrostomy tube placement by IR. We will follow up on labs and urine output. Continue with the IV antibiotics and pressor support. Plan discussed with: VÍCTOR Lyons MD Mar 26, 2025 16:52
[2025-03-26] MEDS: MAGNESIUM OXIDE 400 MG TAB PO ONE (17:34)
--- NOTE | 2025-03-26 23:37 | DVHPN2 ---
Progress Note - Dictate Date Seen: Mar 26, 2025 Has the PT tested + for MRSA If YES, has PT been informed?: No Medical Necessity Reason Pt with a Central, PICC or Fol: Yes The following are medically ne: Tijerina Catheter Reason for tijerina catheter: Strict I&O Subjective Patient seen and examined at bedside. Remains on supplemental oxygen Overnight events reviewed. vital signs Vital Sign Date Time Temp Pulse Resp B/P (MAP) Pulse Ox O2 Delivery O2 Flow Rate FiO2 03/26/25 23:00 98 16 102/50 (67) 94 03/26/25 21:45 Nasal Cannula* 3 32 03/26/25 20:00 97.7 97.7 Total Intake and Output 03/25/25 03/25/25 03/26/25 15:00 23:00 07:00 Intake Total 304.95 ml 419.521 ml 318.908 ml Output Total 500 ml 250 ml Balance 304.95 ml -80.479 ml 68.908 ml medications Current Medications Medications Dose Ordered Sig/Sravan Route Start Time Stop Time Status Last Admin Dose Admin Acetaminophen/ Hydrocodone Bitart 1 tab Q4HP PRN PO 03/20/25 12:15 03/25/25 21:24 1 TAB Ondansetron HCl 4 mg Q4HP PRN IV 03/20/25 12:15 03/26/25 08:18 4 MG Docusate Sodium 100 mg BIDPRN PRN PO 03/20/25 12:15 Acetaminophen 650 mg Q6HP PRN PO 03/20/25 12:15 03/23/25 14:02 650 MG Nitroglycerin 0.4 mg Q5MINP PRN SL 03/20/25 12:15 03/25/25 09:26 0.4 MG Morphine Sulfate 2 mg Q30M PRN IV 03/20/25 12:15 03/25/25 09:43 2 MG Allopurinol 100 mg DAILY PO 03/21/25 10:00 03/26/25 10:54 100 MG Apixaban 2.5 mg BID PO 03/20/25 22:00 03/26/25 21:16 2.5 MG Cilostazol 100 mg BID PO 03/20/25 22:00 03/26/25 21:17 100 MG Patient Own Medication 1 tab DAILY PO 03/21/25 10:00 UNV Patient Own Medication 1 tab DAILY PO 03/21/25 10:00 UNV Gabapentin 300 mg DAILY PO 03/21/25 10:00 03/26/25 10:54 300 MG Levothyroxine Sodium 112 mcg DAILY PO 03/21/25 10:00 03/26/25 10:54 112 MCG Levothyroxine Sodium 25 mcg DAILY PO 03/21/25 10:00 03/26/25 10:54 25 MCG Diphenhydramine HCl 50 mg [id number] PRN PO 03/21/25 16:45 03/21/25 22:57 50 MG Albuterol 2.5 mg Q6HR NEB 03/21/25 18:00 03/26/25 17:58 2.5 MG Ipratropium [place] 0.5 mg Q6HWA NEB 03/21/25 18:00 03/26/25 17:58 0.5 MG Patient Own Medication 1 tab BID PO 03/21/25 22:00 03/26/25 21:16 1 TAB Throat Lozenges 1 liv Q2HP PRN MT 03/23/25 04:00 03/23/25 14:52 1 LIV Piperacillin Sod/ Tazobactam Sod 100 ml @ 25 mls/hr Q8HR IV 03/24/25 14:00 03/26/25 21:16 25 MLS/HR Furosemide 40 mg DAILY IV 03/25/25 10:00 Hold 03/25/25 13:22 40 MG Norepinephrine Bitartrate 250 ml @ 3.75 mls/hr Q24H IV 03/25/25 16:30 03/25/25 21:20 3.75 MLS/HR Pantoprazole Sodium 40 mg DAILY IV 03/26/25 10:00 03/26/25 10:16 40 MG Sodium Chloride 1,000 ml @ 50 mls/hr Q20H IV 03/26/25 14:15 03/26/25 15:56 50 MLS/HR Magnesium Oxide 400 mg DAILY PO 03/27/25 10:00 objective Gen.: Patient lying in bed in no apparent distress. On supplemental oxygen. Head: Normocephalic, atraumatic. Eyes: EOMI/PERRLA. Ears: Normal hearing. Normal anatomy. Neck/trachea: Trachea midline, supple. Nose: Normal external anatomy. Mouth: Moist mucous membranes. Chest: Decreased air entry bilaterally. No wheezing or rhonchi. Cardiovascular: Positive S1, positive S2. Regular rate and rhythm. Abdomen: Positive bowel sounds in all 4 quadrants. Soft, non-tender, non- distended. : Deferred. Rectal: Deferred. Skin: Warm, dry. Intact. Extremities: 2+ radial pulses bilaterally. No lower extremity edema. Neuro: Awake, alert, oriented x3. No gross motor or sensory deficits. Cranial nerves II through XII intact. Gait not assessed. laboratory and microbiology Laboratory Tests 03/26/25 03:30 Test 03/26/25 03:30 Range/Units Serum Glucose 134 H 74-106 mg/dL Assessment/Plan Impression: Acute kidney injury Acute hypoxic respiratory failure Dependence on supplemental oxygen Chronic obstructive pulmonary disease Pneumonia Left hydronephrosis Septic shock Events: On supplemental oxygen 2 LPM via NC Taper O2 as tolerated On amiodarone drip for AFib On pressors for hemodynamic support Levophed 5 mcg/min Titrate to keep mean arterial pressure greater than 65 mmHg. Taper pressors as tolerated. Head of bed elevation Aspiration precautions Continue antibiotics Continue bronchodilators S/p IR intervention for aspiration of pelvic abscess IR recommendations appreciated. Monitor hemoglobin Labs and imaging studies reviewed Labs noted low TSH of 0.15 Plan Supplemental oxygen Titrate to keep O2 sats above 92%. Pressors as necessary for hemodynamic support Titrate to keep mean arterial pressure greater than 65 mmHg. Bronchodilators for COPD - stable Continue antibiotics F/u cultures Amiodarone Eliquis Monitor hemoglobin Monitor renal function Monitor electrolytes. Supplement as necessary. Monitor ins and outs. Maintain euvolemia. F/u with urology/urology and gen sx GI prophylaxis. DVT prophylaxis. Prognosis: Poor given patient's multiple co-morbidities. Condition: Critical Rest of plan per hospitalist and other consultants. A total of 35 minutes of critical care time was spent reviewing the patient record, examining the patient, making a diagnostic and therapeutic plan, discussing this plan with the medical personnel, following up on diagnostic studies and following the patient for clinical stability excluding any and all procedures. At least 50% of this time was spent in direct, [id number] contact. Thank you, Dr. Celis, for allowing me to participate in this patient's care. Further recommendations will depend on the patient's clinical course. Please do not hesitate to contact me if you have any questions or concerns. This medical document was created using an electronic medical record system with [employer] computerized dictation system. Although these documentations are being carefully reviewed, there may still be some phonetic and typographical changes. The errors are purely typographical, due to imperfection on the software program, and do not reflect any compromise in the patient's medical care. Dietary Evaluation Review Comments: Renal Specific 60g CCHO-60 Cardiac Diet d/t SCOT over CKD and low GFR Expected Outcomes/Goals: less uremic symptoms, better weight management Plan discussed with: Other ([place]ST[place] Friend) Critical Care Time(min): 35 CC Plasma Assessment Blood Product Administration S: [id number] PALOMO ROBLES MD Mar 26, 2025 23:37
[2025-03-27] VITALS (106 sets, daily range): BP systolic 81–141; BP diastolic 38–70; PULSE 84–111; RESP 12–29; TEMP 97.5–98.3; O2SAT 89–100
[2025-03-27 04:05] LABS: Hemoglobin 7.8 g/dL (12.2-16.2)
[2025-03-27 04:10] LABS: Hematocrit 24.2 % (36.0-46.0); Mean Corpuscular Hemoglobin 27.1 pg (28.0-32.0); Mean Corpuscular Volume 84.3 fL (80.0-100.0); Nucleated Red Blood Cells % 0.6 %
[2025-03-27 04:14] LABS: Anion Gap 12 (5-15); Carbon Dioxide 27 mmol/L (20-31); Chloride 99 mmol/L (98-107); Sodium 138 mmol/L (136-145)
[2025-03-27 04:20] LABS: BUN/Creatinine Ratio 21.5 (10.0-20.0); Magnesium 1.6 mg/dL (1.6-2.6)
[2025-03-27 04:35] LABS: Blood Urea Nitrogen 64 mg/dL (9-23); Calcium 8.3 mg/dL (8.7-10.4); Glucose 116 mg/dL (74-106); Potassium 3.3 mmol/L (3.5-5.1)
[2025-03-27] MEDS ORDERED: POTASSIUM CHL 20MEQ/50ML 50 ML IV ONE (05:30)
[2025-03-27] MEDS: MAGNESIUM SULFATE 1GM/100ML 100 ML IV ONE (05:32)
[2025-03-27] MEDS ORDERED: POTASSIUM CHL 10MEQ/100ML 100 ML IV ONE (05:45)
[2025-03-27] MEDS: POTASSIUM CHL 20MEQ/100ML 100 ML IV ONE (05:47)
--- NOTE | 2025-03-27 06:28 | DVHPN2 ---
Reviewed: Care Plan, H&P, Labs, Medications, Previous Orders, Radiology Changes from previous H/P or p: No Changes General: Per HPI Eyes: No Pain, No Vision change, No Conjunctivae inflammation, No Eyelid inflammation, No Other, No Redness ENT: No Ear pain, No Ear discharge, No Nose pain, No Nose discharge, No Nose congestion, No Mouth pain, No Mouth swelling, No Throat pain, No Throat swelling, No Other Cardiovascular: No Chest Pain, No Palpitations, No Orthopnea, No Paroxysmal Noc. Dyspnea, No Edema, No Lt Headedness, No Other Respiratory: No Cough, No Dry, No Shortness of breath, No SOB with excertion, No Wheezing, No Hemoptysis, No Pleuritic Pain, No Sputum, No Other Gastrointestinal: Nausea, Vomiting, Abdominal Pain; No Diarrhea, No Constipation, No Melena, No Hematochezia, No Other Genitourinary: No Dysuria, No Frequency, No Incontinence, No Hematuria, No Retention, No Other Musculoskeletal: No other, No neck pain, No shoulder pain, No arm pain, No back pain, No hand pain, No leg pain, No foot pain Skin: No Rash, No Lesions, No Jaundice, No Bruising, No Other Objective Vitals Vital Signs Date Time Temp Pulse Resp B/P (MAP) Pulse Ox O2 Delivery O2 Flow Rate FiO2 03/27/25 05:54 100/50 03/27/25 05:00 99 14 95 03/27/25 03:38 Nasal Cannula* 2 28 03/27/25 00:00 98.0 98.0 Intake/Output Intake and Output 03/27/25 07:00 Intake Total 1481.430 ml Output Total 101 ml Balance 1380.430 ml Intake Oral 100 ml IV Total 1381.430 ml Output Urine Total 100 ml Stool Total 1 ml General Appearance: Alert, Oriented X3, Cooperative Cardiovascular: Regular rate, Normal S1, Normal S2 Abdomen: Normal bowel sounds Medications Current Medications Medications Dose Ordered Sig/Sravan Route Start Time Stop Time Status Last Admin Dose Admin Acetaminophen/ Hydrocodone Bitart 1 tab Q4HP PRN PO 03/20/25 12:15 03/25/25 21:24 1 TAB Ondansetron HCl 4 mg Q4HP PRN IV 03/20/25 12:15 03/26/25 08:18 4 MG Docusate Sodium 100 mg BIDPRN PRN PO 03/20/25 12:15 Acetaminophen 650 mg Q6HP PRN PO 03/20/25 12:15 03/23/25 14:02 650 MG Nitroglycerin 0.4 mg Q5MINP PRN SL 03/20/25 12:15 03/25/25 09:26 0.4 MG Morphine Sulfate 2 mg Q30M PRN IV 03/20/25 12:15 03/25/25 09:43 2 MG Allopurinol 100 mg DAILY PO 03/21/25 10:00 03/26/25 10:54 100 MG Apixaban 2.5 mg BID PO 03/20/25 22:00 03/26/25 21:16 2.5 MG Cilostazol 100 mg BID PO 03/20/25 22:00 03/26/25 21:17 100 MG Patient Own Medication 1 tab DAILY PO 03/21/25 10:00 UNV Patient Own Medication 1 tab DAILY PO 03/21/25 10:00 UNV Gabapentin 300 mg DAILY PO 03/21/25 10:00 03/26/25 10:54 300 MG Levothyroxine Sodium 112 mcg DAILY PO 03/21/25 10:00 03/26/25 10:54 112 MCG Levothyroxine Sodium 25 mcg DAILY PO 03/21/25 10:00 03/26/25 10:54 25 MCG Diphenhydramine HCl 50 mg [id number] PRN PO 03/21/25 16:45 03/21/25 22:57 50 MG Albuterol 2.5 mg Q6HR NEB 03/21/25 18:00 03/27/25 03:00 2.5 MG Ipratropium [place] 0.5 mg Q6HWA NEB 03/21/25 18:00 03/26/25 17:58 0.5 MG Patient Own Medication 1 tab BID PO 03/21/25 22:00 03/26/25 21:16 1 TAB Throat Lozenges 1 liv Q2HP PRN MT 03/23/25 04:00 03/23/25 14:52 1 LIV Piperacillin Sod/ Tazobactam Sod 100 ml @ 25 mls/hr Q8HR IV 03/24/25 14:00 03/27/25 05:16 25 MLS/HR Furosemide 40 mg DAILY IV 03/25/25 10:00 Hold 03/25/25 13:22 40 MG Norepinephrine Bitartrate 250 ml @ 3.75 mls/hr Q24H IV 03/25/25 16:30 03/27/25 05:54 12.188 MLS/HR Pantoprazole Sodium 40 mg DAILY IV 03/26/25 10:00 03/26/25 10:16 40 MG Sodium Chloride 1,000 ml @ 50 mls/hr Q20H IV 03/26/25 14:15 03/26/25 15:56 50 MLS/HR Magnesium Oxide 400 mg DAILY PO 03/27/25 10:00 Laboratory Results Laboratory Tests 03/27/25 03:23 Chemistry Test 03/27/25 03:23 Calcium Level 8.3 mg/dL (8.7-10.4) L Magnesium Level 1.6 mg/dL (1.6-2.6) Coagulation Test 03/26/25 07:34 Prothrombin Time 32.4 sec (9.3-11.8) H Prothrombin Time INR 3.46 (0.9-1.15) H Activated Partial Thromboplast Time 61.1 SEC (24.5-34.5) H Urinalysis Test 03/20/25 09:34 Urine Color Colorless (Yellow) Urine Clarity Turbid (Clear) H Urine pH 5.0 (5.0-9.0) Urine Specific [place] 1.015 (1.001-1.035) Urine Protein Negative (Negative) Urine Ketones Negative (Negative) Urine Blood Negative /uL (Negative) Urine Nitrite Negative (Negative) Urine Bilirubin Negative (Negative) Urine Urobilinogen Normal mg/dL (Negative) Urine Leukocyte Esterase 3+ /uL (Negative) Urine RBC 1 /hpf (0 - 4) Urine Microscopic WBC 255 /HPF (0-5) H Urine Squamous Epithelial Cells Few /hpf (<5) Urine Bacteria Few /hpf (None Seen) H Urine Glucose Normal mg/dL (Normal) Microbiology Microbiology Date/Time Source Procedure Growth Status 03/23/25 04:30 Throat Nose/Throat Culture - Final Complete 03/21/25 18:00 Urine - Catheterized Urine Culture - Final Escherichia coli - ESBL Klebsiella pneumoniae - ESBL Complete 03/20/25 21:52 Nose MRSA Screen - Final Complete Labs and/or images reviewed: Labs reviewed by me, Image(s) reviewed by me Assessment/Plan Assessment/Plan Zoila Gold is a 74-year-old female with past medial history of COPD, 3L/NC home oxygen, CHF, hypertension, hyperlipidemia, diabetes, and chronic renal disease, who came to the hospital for abdominal pain. Patient states she has been experiencing abdominal pain with associated nausea and vomiting for about 2-3 days. The pain was worsening and she was not able to eat prompting her to come to the hospital. While in the ER she was found to be anemic, hypotensive, and septic. Patient denies any signs/symptoms of bleeding or any recent sick contacts. Symptomatic anemia, Transaminitis, Hyponatremia, Acute on chronic kidney failure, COPD, CHF, Diabetes, sepsis/septic shock with pneumonia abd/pelvic abscess jade/ckd anemia, chronic hypomagnesemia 03/21/2025: on vasopressors, wean down as tolerated on lasix for LE edema b/l 03/22/2025 remains on vasopressor remains on empirical iv abx. surgery to evaluate for abscess Plan discussed with: Patient My Orders Orders - TORRIE BUTLER DO Procedure Category Date Status Time Ct Guidance For CT 03/26/25 Resulted Needle Placeme 12:[address] 03/26/25 Resulted Contrast 12:53 Sodium Chloride 0.9% PHA 03/26/25 In Process 14:15 Magnesium Oxide PHA 03/27/25 In Process Tablet (Mag-Ox Tablet) 10:00 Date of Service: Mar 22, 2025 Billing Provider: TORRIE BUTLER DO Common Visit Codes: [id number] CARE 30-74 MIN TORRIE BUTLER DO Mar 27, 2025 06:28
--- NOTE | 2025-03-27 06:30 | DVHPN2 ---
Reviewed: Care Plan, H&P, Labs, Medications, Previous Orders, Radiology Changes from previous H/P or p: No Changes General: Per HPI Eyes: No Pain, No Vision change, No Conjunctivae inflammation, No Eyelid inflammation, No Other, No Redness ENT: No Ear pain, No Ear discharge, No Nose pain, No Nose discharge, No Nose congestion, No Mouth pain, No Mouth swelling, No Throat pain, No Throat swelling, No Other Cardiovascular: No Chest Pain, No Palpitations, No Orthopnea, No Paroxysmal Noc. Dyspnea, No Edema, No Lt Headedness, No Other Respiratory: No Cough, No Dry, No Shortness of breath, No SOB with excertion, No Wheezing, No Hemoptysis, No Pleuritic Pain, No Sputum, No Other Gastrointestinal: Nausea, Vomiting, Abdominal Pain; No Diarrhea, No Constipation, No Melena, No Hematochezia, No Other Genitourinary: No Dysuria, No Frequency, No Incontinence, No Hematuria, No Retention, No Other Musculoskeletal: No other, No neck pain, No shoulder pain, No arm pain, No back pain, No hand pain, No leg pain, No foot pain Skin: No Rash, No Lesions, No Jaundice, No Bruising, No Other Objective Vitals Vital Signs Date Time Temp Pulse Resp B/P (MAP) Pulse Ox O2 Delivery O2 Flow Rate FiO2 03/27/25 05:54 100/50 03/27/25 05:00 99 14 95 03/27/25 03:38 Nasal Cannula* 2 28 03/27/25 00:00 98.0 98.0 Intake/Output Intake and Output 03/27/25 07:00 Intake Total 1481.430 ml Output Total 101 ml Balance 1380.430 ml Intake Oral 100 ml IV Total 1381.430 ml Output Urine Total 100 ml Stool Total 1 ml General Appearance: Alert, Oriented X3, Cooperative Cardiovascular: Regular rate, Normal S1, Normal S2 Abdomen: Normal bowel sounds Medications Current Medications Medications Dose Ordered Sig/Sravan Route Start Time Stop Time Status Last Admin Dose Admin Acetaminophen/ Hydrocodone Bitart 1 tab Q4HP PRN PO 03/20/25 12:15 03/25/25 21:24 1 TAB Ondansetron HCl 4 mg Q4HP PRN IV 03/20/25 12:15 03/26/25 08:18 4 MG Docusate Sodium 100 mg BIDPRN PRN PO 03/20/25 12:15 Acetaminophen 650 mg Q6HP PRN PO 03/20/25 12:15 03/23/25 14:02 650 MG Nitroglycerin 0.4 mg Q5MINP PRN SL 03/20/25 12:15 03/25/25 09:26 0.4 MG Morphine Sulfate 2 mg Q30M PRN IV 03/20/25 12:15 03/25/25 09:43 2 MG Allopurinol 100 mg DAILY PO 03/21/25 10:00 03/26/25 10:54 100 MG Apixaban 2.5 mg BID PO 03/20/25 22:00 03/26/25 21:16 2.5 MG Cilostazol 100 mg BID PO 03/20/25 22:00 03/26/25 21:17 100 MG Patient Own Medication 1 tab DAILY PO 03/21/25 10:00 UNV Patient Own Medication 1 tab DAILY PO 03/21/25 10:00 UNV Gabapentin 300 mg DAILY PO 03/21/25 10:00 03/26/25 10:54 300 MG Levothyroxine Sodium 112 mcg DAILY PO 03/21/25 10:00 03/26/25 10:54 112 MCG Levothyroxine Sodium 25 mcg DAILY PO 03/21/25 10:00 03/26/25 10:54 25 MCG Diphenhydramine HCl 50 mg [id number] PRN PO 03/21/25 16:45 03/21/25 22:57 50 MG Albuterol 2.5 mg Q6HR NEB 03/21/25 18:00 03/27/25 03:00 2.5 MG Ipratropium [place] 0.5 mg Q6HWA NEB 03/21/25 18:00 03/26/25 17:58 0.5 MG Patient Own Medication 1 tab BID PO 03/21/25 22:00 03/26/25 21:16 1 TAB Throat Lozenges 1 liv Q2HP PRN MT 03/23/25 04:00 03/23/25 14:52 1 LIV Piperacillin Sod/ Tazobactam Sod 100 ml @ 25 mls/hr Q8HR IV 03/24/25 14:00 03/27/25 05:16 25 MLS/HR Furosemide 40 mg DAILY IV 03/25/25 10:00 Hold 03/25/25 13:22 40 MG Norepinephrine Bitartrate 250 ml @ 3.75 mls/hr Q24H IV 03/25/25 16:30 03/27/25 05:54 12.188 MLS/HR Pantoprazole Sodium 40 mg DAILY IV 03/26/25 10:00 03/26/25 10:16 40 MG Sodium Chloride 1,000 ml @ 50 mls/hr Q20H IV 03/26/25 14:15 03/26/25 15:56 50 MLS/HR Magnesium Oxide 400 mg DAILY PO 03/27/25 10:00 Laboratory Results Laboratory Tests 03/27/25 03:23 Chemistry Test 03/27/25 03:23 Calcium Level 8.3 mg/dL (8.7-10.4) L Magnesium Level 1.6 mg/dL (1.6-2.6) Coagulation Test 03/26/25 07:34 Prothrombin Time 32.4 sec (9.3-11.8) H Prothrombin Time INR 3.46 (0.9-1.15) H Activated Partial Thromboplast Time 61.1 SEC (24.5-34.5) H Urinalysis Test 03/20/25 09:34 Urine Color Colorless (Yellow) Urine Clarity Turbid (Clear) H Urine pH 5.0 (5.0-9.0) Urine Specific [place] 1.015 (1.001-1.035) Urine Protein Negative (Negative) Urine Ketones Negative (Negative) Urine Blood Negative /uL (Negative) Urine Nitrite Negative (Negative) Urine Bilirubin Negative (Negative) Urine Urobilinogen Normal mg/dL (Negative) Urine Leukocyte Esterase 3+ /uL (Negative) Urine RBC 1 /hpf (0 - 4) Urine Microscopic WBC 255 /HPF (0-5) H Urine Squamous Epithelial Cells Few /hpf (<5) Urine Bacteria Few /hpf (None Seen) H Urine Glucose Normal mg/dL (Normal) Microbiology Microbiology Date/Time Source Procedure Growth Status 03/23/25 04:30 Throat Nose/Throat Culture - Final Complete 03/21/25 18:00 Urine - Catheterized Urine Culture - Final Escherichia coli - ESBL Klebsiella pneumoniae - ESBL Complete 03/20/25 21:52 Nose MRSA Screen - Final Complete Assessment/Plan Assessment/Plan Zoila Gold is a 74-year-old female with past medial history of COPD, 3L/[place] home oxygen, CHF, hypertension, hyperlipidemia, diabetes, and chronic renal disease, who came to the hospital for abdominal pain. Patient states she has been experiencing abdominal pain with associated nausea and vomiting for about 2-3 days. The pain was worsening and she was not able to eat prompting her to come to the hospital. While in the ER she was found to be anemic, hypotensive, and septic. Patient denies any signs/symptoms of bleeding or any recent sick contacts. Symptomatic anemia, Transaminitis, Hyponatremia, Acute on chronic kidney failure, COPD, CHF, Diabetes, sepsis/septic shock with pneumonia abd/pelvic abscess jade/ckd anemia, chronic hypomagnesemia 03/21/2025: on vasopressors, wean down as tolerated on lasix for LE edema b/l 03/22/2025 remains on vasopressor remains on empirical iv abx. surgery to evaluate for abscess 03/23/2025: slowing weaning down on vasopressor still has edema in LE b/l Plan discussed with: Patient My Orders Orders - TORRIE BUTLER DO Procedure Category Date Status Time Ct Guidance For CT 03/26/25 Resulted Needle Placeme 12:[address] 03/26/25 Resulted Contrast 12:53 Sodium Chloride 0.9% PHA 03/26/25 In Process 14:15 Magnesium Oxide PHA 03/27/25 In Process Tablet (Mag-Ox Tablet) 10:00 Date of Service: Mar 23, 2025 Billing Provider: TORRIE BUTLER DO Common Visit Codes: [id number] CARE 30-74 MIN TORRIE BUTLER DO Mar 27, 2025 06:30
--- NOTE | 2025-03-27 06:31 | DVHPN2 ---
Reviewed: Care Plan, H&P, Labs, Medications, Previous Orders, Radiology Changes from previous H/P or p: No Changes General: Per HPI Eyes: No Pain, No Vision change, No Conjunctivae inflammation, No Eyelid inflammation, No Other, No Redness ENT: No Ear pain, No Ear discharge, No Nose pain, No Nose discharge, No Nose congestion, No Mouth pain, No Mouth swelling, No Throat pain, No Throat swelling, No Other Cardiovascular: No Chest Pain, No Palpitations, No Orthopnea, No Paroxysmal Noc. Dyspnea, No Edema, No Lt Headedness, No Other Respiratory: No Cough, No Dry, No Shortness of breath, No SOB with excertion, No Wheezing, No Hemoptysis, No Pleuritic Pain, No Sputum, No Other Gastrointestinal: Nausea, Vomiting, Abdominal Pain; No Diarrhea, No Constipation, No Melena, No Hematochezia, No Other Genitourinary: No Dysuria, No Frequency, No Incontinence, No Hematuria, No Retention, No Other Musculoskeletal: No other, No neck pain, No shoulder pain, No arm pain, No back pain, No hand pain, No leg pain, No foot pain Skin: No Rash, No Lesions, No Jaundice, No Bruising, No Other Objective Vitals Vital Signs Date Time Temp Pulse Resp B/P (MAP) Pulse Ox O2 Delivery O2 Flow Rate FiO2 03/27/25 05:54 100/50 03/27/25 05:00 99 14 95 03/27/25 03:38 Nasal Cannula* 2 28 03/27/25 00:00 98.0 98.0 Intake/Output Intake and Output 03/27/25 07:00 Intake Total 1481.430 ml Output Total 101 ml Balance 1380.430 ml Intake Oral 100 ml IV Total 1381.430 ml Output Urine Total 100 ml Stool Total 1 ml General Appearance: Alert, Oriented X3, Cooperative Cardiovascular: Regular rate, Normal S1, Normal S2 Abdomen: Normal bowel sounds Medications Current Medications Medications Dose Ordered Sig/Sravan Route Start Time Stop Time Status Last Admin Dose Admin Acetaminophen/ Hydrocodone Bitart 1 tab Q4HP PRN PO 03/20/25 12:15 03/25/25 21:24 1 TAB Ondansetron HCl 4 mg Q4HP PRN IV 03/20/25 12:15 03/26/25 08:18 4 MG Docusate Sodium 100 mg BIDPRN PRN PO 03/20/25 12:15 Acetaminophen 650 mg Q6HP PRN PO 03/20/25 12:15 03/23/25 14:02 650 MG Nitroglycerin 0.4 mg Q5MINP PRN SL 03/20/25 12:15 03/25/25 09:26 0.4 MG Morphine Sulfate 2 mg Q30M PRN IV 03/20/25 12:15 03/25/25 09:43 2 MG Allopurinol 100 mg DAILY PO 03/21/25 10:00 03/26/25 10:54 100 MG Apixaban 2.5 mg BID PO 03/20/25 22:00 03/26/25 21:16 2.5 MG Cilostazol 100 mg BID PO 03/20/25 22:00 03/26/25 21:17 100 MG Patient Own Medication 1 tab DAILY PO 03/21/25 10:00 UNV Patient Own Medication 1 tab DAILY PO 03/21/25 10:00 UNV Gabapentin 300 mg DAILY PO 03/21/25 10:00 03/26/25 10:54 300 MG Levothyroxine Sodium 112 mcg DAILY PO 03/21/25 10:00 03/26/25 10:54 112 MCG Levothyroxine Sodium 25 mcg DAILY PO 03/21/25 10:00 03/26/25 10:54 25 MCG Diphenhydramine HCl 50 mg [id number] PRN PO 03/21/25 16:45 03/21/25 22:57 50 MG Albuterol 2.5 mg Q6HR NEB 03/21/25 18:00 03/27/25 03:00 2.5 MG Ipratropium [place] 0.5 mg Q6HWA NEB 03/21/25 18:00 03/26/25 17:58 0.5 MG Patient Own Medication 1 tab BID PO 03/21/25 22:00 03/26/25 21:16 1 TAB Throat Lozenges 1 liv Q2HP PRN MT 03/23/25 04:00 03/23/25 14:52 1 LIV Piperacillin Sod/ Tazobactam Sod 100 ml @ 25 mls/hr Q8HR IV 03/24/25 14:00 03/27/25 05:16 25 MLS/HR Furosemide 40 mg DAILY IV 03/25/25 10:00 Hold 03/25/25 13:22 40 MG Norepinephrine Bitartrate 250 ml @ 3.75 mls/hr Q24H IV 03/25/25 16:30 03/27/25 05:54 12.188 MLS/HR Pantoprazole Sodium 40 mg DAILY IV 03/26/25 10:00 03/26/25 10:16 40 MG Sodium Chloride 1,000 ml @ 50 mls/hr Q20H IV 03/26/25 14:15 03/26/25 15:56 50 MLS/HR Magnesium Oxide 400 mg DAILY PO 03/27/25 10:00 Laboratory Results Laboratory Tests 03/27/25 03:23 Chemistry Test 03/27/25 03:23 Calcium Level 8.3 mg/dL (8.7-10.4) L Magnesium Level 1.6 mg/dL (1.6-2.6) Coagulation Test 03/26/25 07:34 Prothrombin Time 32.4 sec (9.3-11.8) H Prothrombin Time INR 3.46 (0.9-1.15) H Activated Partial Thromboplast Time 61.1 SEC (24.5-34.5) H Urinalysis Test 03/20/25 09:34 Urine Color Colorless (Yellow) Urine Clarity Turbid (Clear) H Urine pH 5.0 (5.0-9.0) Urine Specific [place] 1.015 (1.001-1.035) Urine Protein Negative (Negative) Urine Ketones Negative (Negative) Urine Blood Negative /uL (Negative) Urine Nitrite Negative (Negative) Urine Bilirubin Negative (Negative) Urine Urobilinogen Normal mg/dL (Negative) Urine Leukocyte Esterase 3+ /uL (Negative) Urine RBC 1 /hpf (0 - 4) Urine Microscopic WBC 255 /HPF (0-5) H Urine Squamous Epithelial Cells Few /hpf (<5) Urine Bacteria Few /hpf (None Seen) H Urine Glucose Normal mg/dL (Normal) Microbiology Microbiology Date/Time Source Procedure Growth Status 03/23/25 04:30 Throat Nose/Throat Culture - Final Complete 03/21/25 18:00 Urine - Catheterized Urine Culture - Final Escherichia coli - ESBL Klebsiella pneumoniae - ESBL Complete 03/20/25 21:52 Nose MRSA Screen - Final Complete Assessment/Plan Assessment/Plan Zoila Gold is a 74-year-old female with past medial history of COPD, 3L/[place] home oxygen, CHF, hypertension, hyperlipidemia, diabetes, and chronic renal disease, who came to the hospital for abdominal pain. Patient states she has been experiencing abdominal pain with associated nausea and vomiting for about 2-3 days. The pain was worsening and she was not able to eat prompting her to come to the hospital. While in the ER she was found to be anemic, hypotensive, and septic. Patient denies any signs/symptoms of bleeding or any recent sick contacts. Symptomatic anemia, Transaminitis, Hyponatremia, Acute on chronic kidney failure, COPD, CHF, Diabetes, sepsis/septic shock with pneumonia abd/pelvic abscess jade/ckd anemia, chronic hypomagnesemia 03/21/2025: on vasopressors, wean down as tolerated on lasix for LE edema b/l 03/22/2025 remains on vasopressor remains on empirical iv abx. surgery to evaluate for abscess 03/23/2025: slowing weaning down on vasopressor still has edema in LE b/l 03/24/2025 improving slowly Plan discussed with: Patient My Orders Orders - TORRIE BULTER DO Procedure Category Date Status Time Ct Guidance For CT 03/26/25 Resulted Needle Placeme 12:[address] 03/26/25 Resulted Contrast 12:53 Sodium Chloride 0.9% PHA 03/26/25 In Process 14:15 Magnesium Oxide PHA 03/27/25 In Process Tablet (Mag-Ox Tablet) 10:00 Date of Service: Mar 24, 2025 Billing Provider: TORRIE BUTLER DO Common Visit Codes: [id number] CARE 30-74 MIN TORRIE BUTLER DO Mar 27, 2025 06:31
--- NOTE | 2025-03-27 06:36 | DVHPN2 ---
Reviewed: Care Plan, H&P, Labs, Medications, Previous Orders, Radiology Changes from previous H/P or p: No Changes General: Per HPI Eyes: No Pain, No Vision change, No Conjunctivae inflammation, No Eyelid inflammation, No Other, No Redness ENT: No Ear pain, No Ear discharge, No Nose pain, No Nose discharge, No Nose congestion, No Mouth pain, No Mouth swelling, No Throat pain, No Throat swelling, No Other Cardiovascular: No Chest Pain, No Palpitations, No Orthopnea, No Paroxysmal Noc. Dyspnea, No Edema, No Lt Headedness, No Other Respiratory: No Cough, No Dry, No Shortness of breath, No SOB with excertion, No Wheezing, No Hemoptysis, No Pleuritic Pain, No Sputum, No Other Gastrointestinal: Nausea, Vomiting, Abdominal Pain; No Diarrhea, No Constipation, No Melena, No Hematochezia, No Other Genitourinary: No Dysuria, No Frequency, No Incontinence, No Hematuria, No Retention, No Other Musculoskeletal: No other, No neck pain, No shoulder pain, No arm pain, No back pain, No hand pain, No leg pain, No foot pain Skin: No Rash, No Lesions, No Jaundice, No Bruising, No Other Objective Vitals Vital Signs Date Time Temp Pulse Resp B/P (MAP) Pulse Ox O2 Delivery O2 Flow Rate FiO2 03/27/25 05:54 100/50 03/27/25 05:00 99 14 95 03/27/25 03:38 Nasal Cannula* 2 28 03/27/25 00:00 98.0 98.0 Intake/Output Intake and Output 03/27/25 07:00 Intake Total 1481.430 ml Output Total 101 ml Balance 1380.430 ml Intake Oral 100 ml IV Total 1381.430 ml Output Urine Total 100 ml Stool Total 1 ml General Appearance: Alert, Oriented X3, Cooperative Cardiovascular: Regular rate, Normal S1, Normal S2 Abdomen: Normal bowel sounds Medications Current Medications Medications Dose Ordered Sig/Sravan Route Start Time Stop Time Status Last Admin Dose Admin Acetaminophen/ Hydrocodone Bitart 1 tab Q4HP PRN PO 03/20/25 12:15 03/25/25 21:24 1 TAB Ondansetron HCl 4 mg Q4HP PRN IV 03/20/25 12:15 03/26/25 08:18 4 MG Docusate Sodium 100 mg BIDPRN PRN PO 03/20/25 12:15 Acetaminophen 650 mg Q6HP PRN PO 03/20/25 12:15 03/23/25 14:02 650 MG Nitroglycerin 0.4 mg Q5MINP PRN SL 03/20/25 12:15 03/25/25 09:26 0.4 MG Morphine Sulfate 2 mg Q30M PRN IV 03/20/25 12:15 03/25/25 09:43 2 MG Allopurinol 100 mg DAILY PO 03/21/25 10:00 03/26/25 10:54 100 MG Apixaban 2.5 mg BID PO 03/20/25 22:00 03/26/25 21:16 2.5 MG Cilostazol 100 mg BID PO 03/20/25 22:00 03/26/25 21:17 100 MG Patient Own Medication 1 tab DAILY PO 03/21/25 10:00 UNV Patient Own Medication 1 tab DAILY PO 03/21/25 10:00 UNV Gabapentin 300 mg DAILY PO 03/21/25 10:00 03/26/25 10:54 300 MG Levothyroxine Sodium 112 mcg DAILY PO 03/21/25 10:00 03/26/25 10:54 112 MCG Levothyroxine Sodium 25 mcg DAILY PO 03/21/25 10:00 03/26/25 10:54 25 MCG Diphenhydramine HCl 50 mg [id number] PRN PO 03/21/25 16:45 03/21/25 22:57 50 MG Albuterol 2.5 mg Q6HR NEB 03/21/25 18:00 03/27/25 03:00 2.5 MG Ipratropium [place] 0.5 mg Q6HWA NEB 03/21/25 18:00 03/26/25 17:58 0.5 MG Patient Own Medication 1 tab BID PO 03/21/25 22:00 03/26/25 21:16 1 TAB Throat Lozenges 1 liv Q2HP PRN MT 03/23/25 04:00 03/23/25 14:52 1 LIV Piperacillin Sod/ Tazobactam Sod 100 ml @ 25 mls/hr Q8HR IV 03/24/25 14:00 03/27/25 05:16 25 MLS/HR Furosemide 40 mg DAILY IV 03/25/25 10:00 Hold 03/25/25 13:22 40 MG Norepinephrine Bitartrate 250 ml @ 3.75 mls/hr Q24H IV 03/25/25 16:30 03/27/25 05:54 12.188 MLS/HR Pantoprazole Sodium 40 mg DAILY IV 03/26/25 10:00 03/26/25 10:16 40 MG Sodium Chloride 1,000 ml @ 50 mls/hr Q20H IV 03/26/25 14:15 03/26/25 15:56 50 MLS/HR Magnesium Oxide 400 mg DAILY PO 03/27/25 10:00 Laboratory Results Laboratory Tests 03/27/25 03:23 Chemistry Test 03/27/25 03:23 Calcium Level 8.3 mg/dL (8.7-10.4) L Magnesium Level 1.6 mg/dL (1.6-2.6) Coagulation Test 03/26/25 07:34 Prothrombin Time 32.4 sec (9.3-11.8) H Prothrombin Time INR 3.46 (0.9-1.15) H Activated Partial Thromboplast Time 61.1 SEC (24.5-34.5) H Urinalysis Test 03/20/25 09:34 Urine Color Colorless (Yellow) Urine Clarity Turbid (Clear) H Urine pH 5.0 (5.0-9.0) Urine Specific [place] 1.015 (1.001-1.035) Urine Protein Negative (Negative) Urine Ketones Negative (Negative) Urine Blood Negative /uL (Negative) Urine Nitrite Negative (Negative) Urine Bilirubin Negative (Negative) Urine Urobilinogen Normal mg/dL (Negative) Urine Leukocyte Esterase 3+ /uL (Negative) Urine RBC 1 /hpf (0 - 4) Urine Microscopic WBC 255 /HPF (0-5) H Urine Squamous Epithelial Cells Few /hpf (<5) Urine Bacteria Few /hpf (None Seen) H Urine Glucose Normal mg/dL (Normal) Microbiology Microbiology Date/Time Source Procedure Growth Status 03/23/25 04:30 Throat Nose/Throat Culture - Final Complete 03/21/25 18:00 Urine - Catheterized Urine Culture - Final Escherichia coli - ESBL Klebsiella pneumoniae - ESBL Complete 03/20/25 21:52 Nose MRSA Screen - Final Complete Labs and/or images reviewed: Labs reviewed by me, Image(s) reviewed by me Assessment/Plan Assessment/Plan Zoila Gold is a 74-year-old female with past medial history of COPD, 3L/NC home oxygen, CHF, hypertension, hyperlipidemia, diabetes, and chronic renal disease, who came to the hospital for abdominal pain. Patient states she has been experiencing abdominal pain with associated nausea and vomiting for about 2-3 days. The pain was worsening and she was not able to eat prompting her to come to the hospital. While in the ER she was found to be anemic, hypotensive, and septic. Patient denies any signs/symptoms of bleeding or any recent sick contacts. Symptomatic anemia, Transaminitis, Hyponatremia, Acute on chronic kidney failure, COPD, CHF, Diabetes, sepsis/septic shock with pneumonia abd/pelvic abscess jade/ckd anemia, chronic hypomagnesemia 03/21/2025: on vasopressors, wean down as tolerated on lasix for LE edema b/l 03/22/2025 remains on vasopressor remains on empirical iv abx. surgery to evaluate for abscess 03/23/2025: slowing weaning down on vasopressor still has edema in LE b/l 03/24/2025 improving slowly 03/25/2025 possible abscess draining today IR to place catheter for abscess drainage if needed weaning down on vasopressor Plan discussed with: Patient My Orders Orders - TORRIE BUTLER DO Procedure Category Date Status Time Ct Guidance For CT 03/26/25 Resulted Needle Placeme 12:[address] 03/26/25 Resulted Contrast 12:53 Sodium Chloride 0.9% PHA 03/26/25 In Process 14:15 Magnesium Oxide PHA 03/27/25 In Process Tablet (Mag-Ox Tablet) 10:00 Date of Service: Mar 25, 2025 Billing Provider: TORRIE BUTLER DO Common Visit Codes: [id number] CARE 30-74 MIN TORRIE BUTLER DO Mar 27, 2025 06:36
--- NOTE | 2025-03-27 06:56 | DVHPN2 ---
Reviewed: Care Plan, H&P, Labs, Medications, Previous Orders, Radiology Changes from previous H/P or p: No Changes General: Per HPI Eyes: No Pain, No Vision change, No Conjunctivae inflammation, No Eyelid inflammation, No Other, No Redness ENT: No Ear pain, No Ear discharge, No Nose pain, No Nose discharge, No Nose congestion, No Mouth pain, No Mouth swelling, No Throat pain, No Throat swelling, No Other Cardiovascular: No Chest Pain, No Palpitations, No Orthopnea, No Paroxysmal Noc. Dyspnea, No Edema, No Lt Headedness, No Other Respiratory: No Cough, No Dry, No Shortness of breath, No SOB with excertion, No Wheezing, No Hemoptysis, No Pleuritic Pain, No Sputum, No Other Gastrointestinal: Nausea, Vomiting, Abdominal Pain; No Diarrhea, No Constipation, No Melena, No Hematochezia, No Other Genitourinary: No Dysuria, No Frequency, No Incontinence, No Hematuria, No Retention, No Other Musculoskeletal: No other, No neck pain, No shoulder pain, No arm pain, No back pain, No hand pain, No leg pain, No foot pain Skin: No Rash, No Lesions, No Jaundice, No Bruising, No Other Objective Vitals Vital Signs Date Time Temp Pulse Resp B/P (MAP) Pulse Ox O2 Delivery O2 Flow Rate FiO2 03/27/25 05:54 100/50 03/27/25 05:00 99 14 95 03/27/25 03:38 Nasal Cannula* 2 28 03/27/25 00:00 98.0 98.0 Intake/Output Intake and Output 03/27/25 07:00 Intake Total 1481.430 ml Output Total 101 ml Balance 1380.430 ml Intake Oral 100 ml IV Total 1381.430 ml Output Urine Total 100 ml Stool Total 1 ml General Appearance: Alert, Oriented X3, Cooperative Cardiovascular: Regular rate, Normal S1, Normal S2 Abdomen: Normal bowel sounds Medications Current Medications Medications Dose Ordered Sig/Sravan Route Start Time Stop Time Status Last Admin Dose Admin Acetaminophen/ Hydrocodone Bitart 1 tab Q4HP PRN PO 03/20/25 12:15 03/25/25 21:24 1 TAB Ondansetron HCl 4 mg Q4HP PRN IV 03/20/25 12:15 03/26/25 08:18 4 MG Docusate Sodium 100 mg BIDPRN PRN PO 03/20/25 12:15 Acetaminophen 650 mg Q6HP PRN PO 03/20/25 12:15 03/23/25 14:02 650 MG Nitroglycerin 0.4 mg Q5MINP PRN SL 03/20/25 12:15 03/25/25 09:26 0.4 MG Morphine Sulfate 2 mg Q30M PRN IV 03/20/25 12:15 03/25/25 09:43 2 MG Allopurinol 100 mg DAILY PO 03/21/25 10:00 03/26/25 10:54 100 MG Apixaban 2.5 mg BID PO 03/20/25 22:00 03/26/25 21:16 2.5 MG Cilostazol 100 mg BID PO 03/20/25 22:00 03/26/25 21:17 100 MG Patient Own Medication 1 tab DAILY PO 03/21/25 10:00 UNV Patient Own Medication 1 tab DAILY PO 03/21/25 10:00 UNV Gabapentin 300 mg DAILY PO 03/21/25 10:00 03/26/25 10:54 300 MG Levothyroxine Sodium 112 mcg DAILY PO 03/21/25 10:00 03/26/25 10:54 112 MCG Levothyroxine Sodium 25 mcg DAILY PO 03/21/25 10:00 03/26/25 10:54 25 MCG Diphenhydramine HCl 50 mg [id number] PRN PO 03/21/25 16:45 03/21/25 22:57 50 MG Albuterol 2.5 mg Q6HR NEB 03/21/25 18:00 03/27/25 03:00 2.5 MG Ipratropium [place] 0.5 mg Q6HWA NEB 03/21/25 18:00 03/26/25 17:58 0.5 MG Patient Own Medication 1 tab BID PO 03/21/25 22:00 03/26/25 21:16 1 TAB Throat Lozenges 1 liv Q2HP PRN MT 03/23/25 04:00 03/23/25 14:52 1 LIV Piperacillin Sod/ Tazobactam Sod 100 ml @ 25 mls/hr Q8HR IV 03/24/25 14:00 03/27/25 05:16 25 MLS/HR Furosemide 40 mg DAILY IV 03/25/25 10:00 Hold 03/25/25 13:22 40 MG Norepinephrine Bitartrate 250 ml @ 3.75 mls/hr Q24H IV 03/25/25 16:30 03/27/25 05:54 12.188 MLS/HR Pantoprazole Sodium 40 mg DAILY IV 03/26/25 10:00 03/26/25 10:16 40 MG Sodium Chloride 1,000 ml @ 50 mls/hr Q20H IV 03/26/25 14:15 03/26/25 15:56 50 MLS/HR Magnesium Oxide 400 mg DAILY PO 03/27/25 10:00 Laboratory Results Laboratory Tests 03/27/25 03:23 Chemistry Test 03/27/25 03:23 Calcium Level 8.3 mg/dL (8.7-10.4) L Magnesium Level 1.6 mg/dL (1.6-2.6) Coagulation Test 03/26/25 07:34 Prothrombin Time 32.4 sec (9.3-11.8) H Prothrombin Time INR 3.46 (0.9-1.15) H Activated Partial Thromboplast Time 61.1 SEC (24.5-34.5) H Urinalysis Test 03/20/25 09:34 Urine Color Colorless (Yellow) Urine Clarity Turbid (Clear) H Urine pH 5.0 (5.0-9.0) Urine Specific [place] 1.015 (1.001-1.035) Urine Protein Negative (Negative) Urine Ketones Negative (Negative) Urine Blood Negative /uL (Negative) Urine Nitrite Negative (Negative) Urine Bilirubin Negative (Negative) Urine Urobilinogen Normal mg/dL (Negative) Urine Leukocyte Esterase 3+ /uL (Negative) Urine RBC 1 /hpf (0 - 4) Urine Microscopic WBC 255 /HPF (0-5) H Urine Squamous Epithelial Cells Few /hpf (<5) Urine Bacteria Few /hpf (None Seen) H Urine Glucose Normal mg/dL (Normal) Microbiology Microbiology Date/Time Source Procedure Growth Status 03/23/25 04:30 Throat Nose/Throat Culture - Final Complete 03/21/25 18:00 Urine - Catheterized Urine Culture - Final Escherichia coli - ESBL Klebsiella pneumoniae - ESBL Complete 03/20/25 21:52 Nose MRSA Screen - Final Complete Assessment/Plan Assessment/Plan Zoila Gold is a 74-year-old female with past medial history of COPD, 3L/NC home oxygen, CHF, hypertension, hyperlipidemia, diabetes, and chronic renal disease, who came to the hospital for abdominal pain. Patient states she has been experiencing abdominal pain with associated nausea and vomiting for about 2-3 days. The pain was worsening and she was not able to eat prompting her to come to the hospital. While in the ER she was found to be anemic, hypotensive, and septic. Patient denies any signs/symptoms of bleeding or any recent sick contacts. Symptomatic anemia, Transaminitis, Hyponatremia, Acute on chronic kidney failure, COPD, CHF, Diabetes, sepsis/septic shock with pneumonia abd/pelvic abscess jade/ckd anemia, chronic hypomagnesemia 03/21/2025: on vasopressors, wean down as tolerated on lasix for LE edema b/l 03/22/2025 remains on vasopressor remains on empirical iv abx. surgery to evaluate for abscess 03/23/2025: slowing weaning down on vasopressor still has edema in LE b/l 03/24/2025 improving slowly 03/25/2025 possible abscess draining today IR to place catheter for abscess drainage if needed weaning down on vasopressor 03/26/2025 pt to have a catheter placed today for abscess drainage pt was down in the OR discussed with nursing hold off on Lasix replace mag Plan discussed with: Patient My Orders Orders - TORRIE BUTLER DO Procedure Category Date Status Time Ct Guidance For CT 03/26/25 Resulted Needle Placeme 12:[address] 03/26/25 Resulted Contrast 12:53 Sodium Chloride 0.9% PHA 03/26/25 In Process 14:15 Magnesium Oxide PHA 03/27/25 In Process Tablet (Mag-Ox Tablet) 10:00 Date of Service: Mar 26, 2025 Billing Provider: TORRIE BUTLER DO Common Visit Codes: [id number] CARE 30-74 MIN TORRIE BUTLER DO Mar 27, 2025 06:56
[2025-03-27] MEDS: MAGNESIUM OXIDE 400 MG TAB PO SCH (09:41)
[2025-03-27] MEDS ORDERED: ERTAPENEM SOD 1 GM INJ VIAL IM SCH (11:15)
--- NOTE | 2025-03-27 11:38 | DVH ---
US KIDNEY HISTORY: EVALUATION FOR HYDRONEPHROSIS COMPARISON: None TECHNIQUE: Transverse and longitudinal grayscale and color doppler images were obtained of the kidney s and bladder. FINDINGS: Right kidney: Size: 9.6 cm Cortical thickness: Normal Echogenicity: Normal Stones: None Masses: None Hydronephrosis: None Ureters: Not well visualized. Other: None Left kidney: Size: 9.0 cm Cortical thickness: Normal Echogenicity: Normal Stones: None Masses: None Hydronephrosis: None Ureters: Not well visualized. Other: None Bladder: Normal Other: None. IMPRESSION: Unremarkable renal ultrasound without hydronephrosis seen.
[2025-03-27] MEDS ORDERED: TPN PER PHARMACY 0 ML IV SCH (12:00)
[2025-03-27 12:30] LABS: Triglycerides 76.0 mg/dL (< 150)
[2025-03-27] MEDS ORDERED: DEXTROSE (50%) 50ML SYRG IV SCH (12:30)
[2025-03-27 12:32] LABS: Bilirubin, Total 0.5 mg/dL (0.2-1.0)
[2025-03-27 12:33] LABS: Albumin 3.1 g/dL (3.2-4.8)
--- NOTE | 2025-03-27 14:11 | DVHPN2 ---
Progress Note - Dictate Date Seen: Mar 27, 2025 Has the PT tested + for MRSA If YES, has PT been informed?: No Medical Necessity Reason Pt with a Central, PICC or Fol: Yes The following are medically ne: [place] Catheter Reason for tijerina catheter: Strict I&O Subjective No new complaints Patient is resting comfortably She has undergone IR drainage of the pelvic abscess with 30 mL of thick fluid was removed Patient has a drainage tube placed in the abscess vital signs Vital Sign Date Time Temp Pulse Resp B/P (MAP) Pulse Ox O2 Delivery O2 Flow Rate FiO2 03/27/25 12:10 91 18 100 03/27/25 12:04 Nasal Cannula 2.0 03/27/25 12:04 28 03/27/25 07:07 81/61 03/27/25 06:30 98.1 98.1 Total Intake and Output 03/26/25 03/26/25 03/27/25 15:00 23:00 07:00 Intake Total 243.28 ml 702.251 ml 610.469 ml Output Total 101 ml 150 ml Balance 243.28 ml 601.251 ml 460.469 ml medications Current Medications Medications Dose Ordered Sig/Sravan Route Start Time Stop Time Status Last Admin Dose Admin Acetaminophen/ Hydrocodone Bitart 1 tab Q4HP PRN PO 03/20/25 12:15 03/25/25 21:24 1 TAB Ondansetron HCl 4 mg Q4HP PRN IV 03/20/25 12:15 03/26/25 08:18 4 MG Docusate Sodium 100 mg BIDPRN PRN PO 03/20/25 12:15 Acetaminophen 650 mg Q6HP PRN PO 03/20/25 12:15 03/23/25 14:02 650 MG Nitroglycerin 0.4 mg Q5MINP PRN SL 03/20/25 12:15 03/25/25 09:26 0.4 MG Morphine Sulfate 2 mg Q30M PRN IV 03/20/25 12:15 03/25/25 09:43 2 MG Allopurinol 100 mg DAILY PO 03/21/25 10:00 03/27/25 09:42 100 MG Apixaban 2.5 mg BID PO 03/20/25 22:00 03/26/25 21:16 2.5 MG Cilostazol 100 mg BID PO 03/20/25 22:00 03/27/25 09:42 100 MG Patient Own Medication 1 tab DAILY PO 03/21/25 10:00 UNV Patient Own Medication 1 tab DAILY PO 03/21/25 10:00 UNV Gabapentin 300 mg DAILY PO 03/21/25 10:00 03/27/25 09:42 300 MG Levothyroxine Sodium 112 mcg DAILY PO 03/21/25 10:00 03/27/25 09:41 112 MCG Levothyroxine Sodium 25 mcg DAILY PO 03/21/25 10:00 03/27/25 09:41 25 MCG Diphenhydramine HCl 50 mg [id number] PRN PO 03/21/25 16:45 03/21/25 22:57 50 MG Albuterol 2.5 mg Q6HR NEB 03/21/25 18:00 03/27/25 12:04 2.5 MG Ipratropium [place] 0.5 mg Q6HWA NEB 03/21/25 18:00 03/27/25 12:04 0.5 MG Patient Own Medication 1 tab BID PO 03/21/25 22:00 03/27/25 09:42 1 TAB Throat Lozenges 1 liv Q2HP PRN MT 03/23/25 04:00 03/23/25 14:52 1 LIV Furosemide 40 mg DAILY IV 03/25/25 10:00 03/25/25 13:22 40 MG Norepinephrine Bitartrate 250 ml @ 3.75 mls/hr Q24H IV 03/25/25 16:30 03/27/25 05:54 11.25 MLS/HR Pantoprazole Sodium 40 mg DAILY IV 03/26/25 10:00 03/27/25 09:42 40 MG Sodium Chloride 1,000 ml @ 50 mls/hr Q20H IV 03/26/25 14:15 03/26/25 15:56 50 MLS/HR Magnesium Oxide 400 mg DAILY PO 03/27/25 10:00 03/27/25 09:41 400 MG Ertapenem 0.5 gm DAILY IM 03/27/25 11:15 Amino Acids 0 ml @ 0 mls/hr PER PHARMACY IV 03/27/25 12:00 Diagnostic Test (Pha) 1 strip Q6HR 03/27/25 18:00 Insulin Human Regular FOLLOW SLIDING SCALE Q6HR SC 03/27/25 18:00 Dextrose 50 ml UD IV 03/27/25 12:30 Fat Emulsion Intravenous 100 ml/Sodium Chloride 20 meq/ Potassium Chloride 40 meq/ Calcium Gluconate 2.3 meq/Magnesium Sulfate 12 meq/ Multivitamins 10 ml/Chromium/ Copper/Manganese/ Zinc 1 ml/Amino Acids/Dextrose 943.9462 ml @ 39 mls/hr [id number] IV 03/27/25 22:00 03/28/25 21:59 objective General examination- awake, alert HEENT- PEERLA, morbidly obese Cardiovascular- S1-S2 audible, rate and rhythm regular, no murmur Respiratory- CTAB, no wheeze or rhonchi Gastrointestinal-lower abdominal wall tenderness+, bowel sound+. Nondistended Musculoskeletal-no acute joint swelling or tenderness or redness Lower extremity- no leg edema Neurological- cranial nerves intact, no acute dysarthria or dysphagia laboratory and microbiology Laboratory Tests 03/27/25 03:23 Test 03/27/25 03:23 Range/Units Serum Glucose 116 H 74-106 mg/dL Problems(with codes): (1) E. coli UTI (urinary tract infection) (2) Sepsis (3) Generalized weakness (4) Pelvic abscess in female Prognosis Plan Recommend not advancing her diet any further at this time for 1-2 weeks Continue IV antibiotics possibly for 4-6 weeks followed by repeat imaging and then removal of the drain when there was no further abscess left Discharge planning accordingly when the patient is stabilized Dietary Evaluation Review Comments: Renal Specific 60g CCHO-60 Cardiac Diet d/t SCOT over CKD and low GFR Expected Outcomes/Goals: less uremic symptoms, better weight management Plan discussed with: Patient, Other (Armen Angeles) CC Plasma Assessment Blood Product Administration S: [id number] MAGALYS AQUINO MD Mar 27, 2025 14:10
[2025-03-27] MEDS: MEROPENEM 500MG PREMIX 50 ML IV SCH (14:15)
--- NOTE | 2025-03-27 14:38 | DVHPN2 ---
Progress Note Date Seen: Mar 27, 2025 Has the PT tested + for MRSA If YES, has PT been informed?: No Medical Necessity Reason Pt with a Central, PICC or Fol: Yes The following are medically ne: [place] Catheter Reason for tijerina catheter: Strict I&O Objective vital signs Vital Sign Date Time Temp Pulse Resp B/P (MAP) Pulse Ox O2 Delivery O2 Flow Rate FiO2 03/27/25 14:15 94 18 103/56 (72) 96 03/27/25 12:04 Nasal Cannula 2.0 03/27/25 12:04 28 03/27/25 12:00 97.5 97.5 Total Intake and Output 03/26/25 03/26/25 03/27/25 15:00 23:00 07:00 Intake Total 243.28 ml 702.251 ml 610.469 ml Output Total 101 ml 150 ml Balance 243.28 ml 601.251 ml 460.469 ml medications Current Medications Medications Dose Ordered Sig/Sravan Route Start Time Stop Time Status Last Admin Dose Admin Acetaminophen/ Hydrocodone Bitart 1 tab Q4HP PRN PO 03/20/25 12:15 03/25/25 21:24 1 TAB Ondansetron HCl 4 mg Q4HP PRN IV 03/20/25 12:15 03/26/25 08:18 4 MG Docusate Sodium 100 mg BIDPRN PRN PO 03/20/25 12:15 Acetaminophen 650 mg Q6HP PRN PO 03/20/25 12:15 03/23/25 14:02 650 MG Nitroglycerin 0.4 mg Q5MINP PRN SL 03/20/25 12:15 03/25/25 09:26 0.4 MG Morphine Sulfate 2 mg Q30M PRN IV 03/20/25 12:15 03/25/25 09:43 2 MG Allopurinol 100 mg DAILY PO 03/21/25 10:00 03/27/25 09:42 100 MG Apixaban 2.5 mg BID PO 03/20/25 22:00 03/26/25 21:16 2.5 MG Cilostazol 100 mg BID PO 03/20/25 22:00 03/27/25 09:42 100 MG Patient Own Medication 1 tab DAILY PO 03/21/25 10:00 UNV Patient Own Medication 1 tab DAILY PO 03/21/25 10:00 UNV Gabapentin 300 mg DAILY PO 03/21/25 10:00 03/27/25 09:42 300 MG Levothyroxine Sodium 112 mcg DAILY PO 03/21/25 10:00 03/27/25 09:41 112 MCG Levothyroxine Sodium 25 mcg DAILY PO 03/21/25 10:00 03/27/25 09:41 25 MCG Diphenhydramine HCl 50 mg [id number] PRN PO 03/21/25 16:45 03/21/25 22:57 50 MG Albuterol 2.5 mg Q6HR NEB 03/21/25 18:00 03/27/25 12:04 2.5 MG Ipratropium [place] 0.5 mg Q6HWA [facility] 03/21/25 18:00 03/27/25 12:04 0.5 MG Patient Own Medication 1 tab BID PO 03/21/25 22:00 03/27/25 09:42 1 TAB Throat Lozenges 1 liv Q2HP PRN MT 03/23/25 04:00 03/23/25 14:52 1 LIV Furosemide 40 mg DAILY IV 03/25/25 10:00 03/25/25 13:22 40 MG Norepinephrine Bitartrate 250 ml @ 3.75 mls/hr Q24H IV 03/25/25 16:30 03/27/25 05:54 11.25 MLS/HR Pantoprazole Sodium 40 mg DAILY IV 03/26/25 10:00 03/27/25 09:42 40 MG Sodium Chloride 1,000 ml @ 50 mls/hr Q20H IV 03/26/25 14:15 03/26/25 15:56 50 MLS/HR Magnesium Oxide 400 mg DAILY PO 03/27/25 10:00 03/27/25 09:41 400 MG Ertapenem 0.5 gm DAILY IM 03/27/25 11:15 Cancel Amino Acids 0 ml @ 0 mls/hr PER PHARMACY IV 03/27/25 12:00 Diagnostic Test (Pha) 1 strip Q6HR 03/27/25 18:00 Insulin Human Regular FOLLOW SLIDING SCALE Q6HR SC 03/27/25 18:00 Dextrose 50 ml UD IV 03/27/25 12:30 Fat Emulsion Intravenous 100 ml/Sodium Chloride 20 meq/ Potassium Chloride 40 meq/ Calcium Gluconate 2.3 meq/Magnesium Sulfate 12 meq/ Multivitamins 10 ml/Chromium/ Copper/Manganese/ Zinc 1 ml/Amino Acids/Dextrose 943.9462 ml @ 39 mls/hr [id number] IV 03/27/25 22:00 03/28/25 21:59 laboratory and microbiology Laboratory Tests 03/27/25 03:23 Test 03/27/25 03:23 Range/Units Serum Glucose 116 H 74-106 mg/dL Problem List/Assessment/Plan Problem List/Assessment/Plan 03/25/25 patien having a urology w/u, radioloist intervention for aspiration of pelvic abscess is pending. her abdomen is soft and entirely non tender. awaiting IR intervention. 03/27/[address] uided aspiration of pelvic paracolonic abscess, feels OK ,abdomen soft and non tender, WBC slightly lower. continue present treatments Plan discussed with: Patient Dietary Evaluation Review Comments: Renal Specific 60g CCHO-60 Cardiac Diet d/t SCOT over CKD and low GFR Expected Outcomes/Goals: less uremic symptoms, better weight management CHEYENNE BURROUGHS MD Mar 27, 2025 14:38
--- NOTE | 2025-03-27 16:43 | DVHPN2 ---
Progress Note - Dictate Date Seen: Mar 27, 2025 Has the PT tested + for MRSA If YES, has PT been informed?: No Medical Necessity Reason Pt with a Central, PICC or Fol: Yes The following are medically ne: Tijerina Catheter Reason for tijerina catheter: Strict I&O vital signs Vital Sign Date Time Temp Pulse Resp B/P (MAP) Pulse Ox O2 Delivery O2 Flow Rate FiO2 03/27/25 14:45 102 16 95/50 (65) 95 03/27/25 14:00 Nasal Cannula* 2 28 03/27/25 12:00 97.5 97.5 Total Intake and Output 03/26/25 03/26/25 03/27/25 15:00 23:00 07:00 Intake Total 243.28 ml 702.251 ml 610.469 ml Output Total 101 ml 150 ml Balance 243.28 ml 601.251 ml 460.469 ml medications Current Medications Medications Dose Ordered Sig/Sravan Route Start Time Stop Time Status Last Admin Dose Admin Acetaminophen/ Hydrocodone Bitart 1 tab Q4HP PRN PO 03/20/25 12:15 03/25/25 21:24 1 TAB Ondansetron HCl 4 mg Q4HP PRN IV 03/20/25 12:15 03/26/25 08:18 4 MG Docusate Sodium 100 mg BIDPRN PRN PO 03/20/25 12:15 Acetaminophen 650 mg Q6HP PRN PO 03/20/25 12:15 03/23/25 14:02 650 MG Nitroglycerin 0.4 mg Q5MINP PRN SL 03/20/25 12:15 03/25/25 09:26 0.4 MG Morphine Sulfate 2 mg Q30M PRN IV 03/20/25 12:15 03/25/25 09:43 2 MG Allopurinol 100 mg DAILY PO 03/21/25 10:00 03/27/25 09:42 100 MG Apixaban 2.5 mg BID PO 03/20/25 22:00 03/26/25 21:16 2.5 MG Cilostazol 100 mg BID PO 03/20/25 22:00 03/27/25 09:42 100 MG Patient Own Medication 1 tab DAILY PO 03/21/25 10:00 UNV Patient Own Medication 1 tab DAILY PO 03/21/25 10:00 UNV Gabapentin 300 mg DAILY PO 03/21/25 10:00 03/27/25 09:42 300 MG Levothyroxine Sodium 112 mcg DAILY PO 03/21/25 10:00 03/27/25 09:41 112 MCG Levothyroxine Sodium 25 mcg DAILY PO 03/21/25 10:00 03/27/25 09:41 25 MCG Diphenhydramine HCl 50 mg [id number] PRN PO 03/21/25 16:45 03/21/25 22:57 50 MG Albuterol 2.5 mg Q6HR NEB 03/21/25 18:00 03/27/25 12:04 2.5 MG Ipratropium [place] 0.5 mg Q6HWA NEB 03/21/25 18:00 03/27/25 12:04 0.5 MG Patient Own Medication 1 tab BID PO 03/21/25 22:00 03/27/25 09:42 1 TAB Throat Lozenges 1 liv Q2HP PRN MT 03/23/25 04:00 03/23/25 14:52 1 LIV Furosemide 40 mg DAILY IV 03/25/25 10:00 03/25/25 13:22 40 MG Norepinephrine Bitartrate 250 ml @ 3.75 mls/hr Q24H IV 03/25/25 16:30 03/27/25 05:54 11.25 MLS/HR Pantoprazole Sodium 40 mg DAILY IV 03/26/25 10:00 03/27/25 09:42 40 MG Sodium Chloride 1,000 ml @ 50 mls/hr Q20H IV 03/26/25 14:15 03/26/25 15:56 50 MLS/HR Magnesium Oxide 400 mg DAILY PO 03/27/25 10:00 03/27/25 09:41 400 MG Ertapenem 0.5 gm DAILY IM 03/27/25 11:15 Cancel Amino Acids 0 ml @ 0 mls/hr PER PHARMACY IV 03/27/25 12:00 Diagnostic Test (Pha) 1 strip Q6HR 03/27/25 18:00 Insulin Human Regular FOLLOW SLIDING SCALE Q6HR SC 03/27/25 18:00 Dextrose 50 ml UD IV 03/27/25 12:30 Fat Emulsion Intravenous 100 ml/Sodium Chloride 20 meq/ Potassium Chloride 40 meq/ Calcium Gluconate 2.3 meq/Magnesium Sulfate 12 meq/ Multivitamins 10 ml/Chromium/ Copper/Manganese/ Zinc 1 ml/Amino Acids/Dextrose 943.9462 ml @ 39 mls/hr [id number] IV 03/27/25 22:00 03/28/25 21:59 laboratory and microbiology Laboratory Tests 03/27/25 03:23 Test 03/27/25 03:23 Range/Units Serum Glucose 116 H 74-106 mg/dL Assessment/Plan Patient is a 74-year-old female who was admitted on March 20, 2025 for abdominal pain/nausea/vomiting. She is admitted to ICU for septic shock. On March 24, 2025, cardiology was involved for cardiac aspects of care. Patient is known to our practice from before and previous admissions. She is known to have significant alcohol abuse (drinks whiskey every day) and also history of pulmonary hypertension/type 2 pulmonary hypertension, diastolic heart failure. Does have poor functional capacity and is bed-bound. Is significantly morbidly obese. Does have baseline history of atrial fibrillation and is on Eliquis as outpatient. Is found to have septic shock and possible pelvic abscess. Is seen by surgery/Urology/pulmonary/GI. Denies chest pains. Denies palpitations. Is noncompliant with medication and followups. While being managed in ICU was found to have atrial fibrillation with RVR. 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 She has had multiple surgeries in the bilateral feet. She also has history of COPD/asthma with chronic respiratory failure (on home oxygen). Morbidly obese. Not in acute distress. No JVD. Mucosa is dry. Mucosa is pink. No JVD. No carotid bruit. Not using accessory muscles of breathing. Scattered rhonchi in the lungs is heard. Cardiac: Irregular, no thrill. Abdomen is obese and soft. There is no gross hepatomegaly, but it is presence can not be ruled out (body habitus, morbidly obese). There is 3+ edema in bilateral lower extremities which extends to abdominal wall. Past medical history includes morbid obesity, atrial fibrillation (on Eliquis as outpatient), COPD/asthma with chronic respiratory failure on home oxygen, morbid obesity, hypertension, hyperlipidemia, chronic lymphedema, Diastolic heart failure with type 2 pulmonary hypertension, rheumatoid arthritis, osteoarthritis, peripheral vascular disease, CKD (stage IV), anemia, alcohol abuse, neuropathy, gout, old history of right and left foot fracture and their management, status post right knee replacement, status post , bed-bound at baseline and functional quadriplegia. Patient drinks whiskey daily. Goes to Nephrology regularly. Reportedly, there has been some concern about going to have fistula creation on preparation for dialysis? Echocardiogram of January 03 2024 (performed in [facility]) revealed ejection fraction of 60%, mild biatrial enlargement, mild MR/TR and right ventricular systolic pressure of 31 mm Hg. Echocardiogram of (performed in [facility]) revealed: EF of 50 to 55%, Dilated right ventricle with normal systolic function. Severe biatrial enlargement. Mild AI, mild to moderate MR, moderate TR and RVSP of 51 mmHg. Ascending Aorta was 3.7 cm. Echocardiogram of November 09, 2024 revealed ejection fraction of 72%, mild right ventricular enlargement, moderate biatrial enlargement, mild to moderate tricuspid regurgitation, mild mitral regurgitation, right ventricular systolic pressure 54 mm Hg Echocardiogram of February 23, 2025 revealed ejection fraction of around 50%, mild concentric left ventricular hypertrophy, right ventricular enlargement with preserved systolic function. Biatrial enlargement, mild aortic insufficiency, [id number] mitral regurgitation and tricuspid regurgitation. IVC was significantly dilated. Right ventricular systolic pressure of of 55 mm Hg WBC: 5.2 - 8.2-12.3 - 8.5 - 11.3 - 13.7 - 21.6 - 16.9 Hemoglobin: 6.7 - 8.6 - 8.1 - 7.6 - 7.9 - 7.7 - 7.8 - 7.8 Platelet: 57 - 73 - 91 - 108 - 159 - 189 - 257 - 322 Creatinine: 3.29 - 2.63 - 2.77 - 2.59 - 2.13 - 1.98 - 1.98 - 2.47- 2.98 Potassium: 3.9 - 3.4 - 3.8 - 3.3 - 3.4 - 3.9 - 3.5 - 3.5 - 3.3 Sodium: 124 - 129 - 129 - 131 - 135 - 138 - 138 - 139 - 138 AST/ALT: 143/111 - 347/315 - 48/358 Troponin (high sensitive): 32 - 31 - 34 TSH: 0.17 - 0.15 T3: 0.40 (low) T4: 5.7 Free T4: 1.27 Free T3: 1.55 (low) Chest x-ray revealed: IMPRESSION: Cardiomegaly. Repeat chest x-ray revealed: IMPRESSION: 1. Cardiomegaly with increased interstitial prominence suggestive of CHF exacerbation. 2. Pulmonary arterial hypertension. Repeat chest x-ray revealed: IMPRESSION: Cardiomegaly with mild pulmonary congestion. . Repeat chest x-ray revealed: IMPRESSION: Cardiomegaly with pulmonary congestion and edema. Superimposed pneumonia cannot be excluded. Repeat chest x-ray revealed: IMPRESSION: Worsening right lower lung airspace disease. Suggestion of small bilateral pleural effusions. Abdominal ultrasound revealed: IMPRESSION: Small left hydronephrosis Renal scan revealed: IMPRESSION: Bilateral renal obstruction is present which is not response to Lasix administration suggesting that the kidney may be minimally functional. Abdomen and pelvic CT scan revealed: IMPRESSION: Moderate left hydroureteronephrosis. Suggestion of possible small abscess formation in the left hemipelvis associated with the sigmoid colon measuring 5.7 cm. This may represent site of ureteral obstruction. Clinical correlation advised. Examination is limited secondary to lack of intravenous and oral contrast administration. Abdomen and pelvis CT revealed: IMPRESSION: Sigmoid colonic diverticulitis with an adjacent 6 cm fluid collection with gas, could be an abscess. Probable fistula of the sigmoid to the fluid collection, and possibly with the urinary bladder, which is decompressed with a Tijerina. Possible trace left hydronephrosis with perinephric fat stranding. CT guided abscess drainage: IMPRESSION: CT guided placement of 8 persian pigtail drain into a left hemipelvic abscess with 30 mL purulent fluid aspirated. PLAN: Routine tube care. Renal ultrasound revealed: IMPRESSION: Unremarkable renal ultrasound without hydronephrosis seen. EKG revealed atrial fibrillation with RVR Tele reveals atrial fibrillation with RVR Echocardiogram revealed: Left ventricle: Mild concentric left ventricular hypertrophy was seen. LVEF was around 50%. Right ventricle was mildly dilated with reduced systolic function. Both atria were dilated. Aortic valve was not well visualized. There was no aortic insufficiency/stenosis. There was mild mitral regurgitation. There was [id number] tricuspid regurgitation. Pulmonary valve was not well visualized. Right ventricular systolic pressure was assessed at 50 mm Hg. IVC was dilated. There was no pericardial effusion. Patient is a 74-year-old female with known history of diastolic heart failure with type 2 pulmonary hypertension who presented with abdominal pain. He is admitted to ICU with septic shock. Did have thrombocytopenia which slowly improved. Was significantly anemic and was transfused PRBC. There has been question about pelvic abscess and the patient is on antibiotics. Patient is being followed by surgery/Urology/pulmonary/GI. It is of note that the patient does have history of significant alcohol abuse (drinks good amount of whiskey daily) which could contribute to to some component of the clinical picture. Does have baseline history of pulmonary hypertension. Usually is on some amount of diuretic (Bumex) as outpatient. Clinically, the patient does have dry mucosa and maybe behind fluids at the time of evaluation. Does have baseline poor functional capacity. Does have history of recent sepsis. s/p CT guided abscess drainage. Seen by Nephrology. Diuretics are on hold. TFT are in favor of subclinical thyroid problem. Significant anemia, status post PRBC transfusion Thrombocytopenia, resolved Septic shock SCOT on CKD Hydronephrosis Pelvic abscess Transaminitis Acute on chronic diastolic heart failure Pulmonary Hypertension, type 2 Alcohol abuse Morbid obesity Poor functional capacity Bed-bound at baseline Atrial fibrillation with RVR Hyperlipidemia Osteoarthritis Rheumatoid arthritis Peripheral vascular disease Abdominal abscess? s/p CT guided abscess drainage Cardiac suggestion for management: Manage in ICU Follow-up electrolytes and kidney function tests and correct abnormalities Full anticoagulation (on Eliquis presently), long-term May need some fluid resuscitation Nephrology follow up IV amiodarone Pressor support at this point to keep mean arterial pressure above 65 Evaluation and management of sepsis/infection as per primary team Evaluation and management of alcohol abuse/prevention of withdrawal as per primary team Evaluation and management of pelvic abscess/hydronephrosis as per primary team/surgery/Urology Further evaluation and management depends on the above and clinical course A total of 75 minutes was spent reviewing the patient record, examining the patient, making a diagnostic and therapeutic plan, discussing this plan with medical personnel, following up on diagnostic studies and following the patient for clinical stability excluding any and all procedures. At least 50% of this time was spent in direct, [id number] contact. Thank you for allowing me to participate in this patient's care. Further recommendations will depend on patient's clinical course. Please do not hesitate to contact me if you have any questions or concerns. This medical document was created using electronic medical record system with [employer] computerized dictation system. Although this document has been carefully reviewed, there may still be some phonetic and typographical errors. These areas are purely typographical due to the imperfection of the software programs, and do not reflect any compromise in the patient's medical care. Dietary Evaluation Review Comments: Renal Specific 60g CCHO-60 Cardiac Diet d/t SCOT over CKD and low GFR Expected Outcomes/Goals: less uremic symptoms, better weight management Plan discussed with: Patient, Other (nurse) CC Plasma Assessment Blood Product Administration S: [id number] AUSTNI ROMERO MD Mar 27, 2025 16:43
[2025-03-27] MEDS: InsuLIN REG 1unit/0.01ml Soln (100units/ml) SC SCH (18:00)
[2025-03-27] MEDS: ACCU-CHEK COMFORT CURVE STRIP VI SCH (18:03)
--- NOTE | 2025-03-27 18:42 | DVHPN2 ---
Progress Note - Dictate Date Seen: Mar 27, 2025 Has the PT tested + for MRSA If YES, has PT been informed?: No Medical Necessity Reason Pt with a Central, PICC or Fol: Yes The following are medically ne: Tijerina Catheter Reason for tijerina catheter: Strict I&O Subjective Levophed requirement has increased vital signs Vital Sign Date Time Temp Pulse Resp B/P (MAP) Pulse Ox O2 Delivery O2 Flow Rate FiO2 03/27/25 17:45 90 14 107/58 (74) 95 03/27/25 16:00 Nasal Cannula* 2 28 03/27/25 16:00 97.8 97.8 Total Intake and Output 03/26/25 03/26/25 03/27/25 15:00 23:00 07:00 Intake Total 243.28 ml 702.251 ml 610.469 ml Output Total 101 ml 150 ml Balance 243.28 ml 601.251 ml 460.469 ml medications Current Medications Medications Dose Ordered Sig/Sravan Route Start Time Stop Time Status Last Admin Dose Admin Acetaminophen/ Hydrocodone Bitart 1 tab Q4HP PRN PO 03/20/25 12:15 03/25/25 21:24 1 TAB Ondansetron HCl 4 mg Q4HP PRN IV 03/20/25 12:15 03/26/25 08:18 4 MG Docusate Sodium 100 mg BIDPRN PRN PO 03/20/25 12:15 Acetaminophen 650 mg Q6HP PRN PO 03/20/25 12:15 03/23/25 14:02 650 MG Nitroglycerin 0.4 mg Q5MINP PRN SL 03/20/25 12:15 03/25/25 09:26 0.4 MG Morphine Sulfate 2 mg Q30M PRN IV 03/20/25 12:15 03/25/25 09:43 2 MG Allopurinol 100 mg DAILY PO 03/21/25 10:00 03/27/25 09:42 100 MG Apixaban 2.5 mg BID PO 03/20/25 22:00 03/26/25 21:16 2.5 MG Cilostazol 100 mg BID PO 03/20/25 22:00 03/27/25 09:42 100 MG Patient Own Medication 1 tab DAILY PO 03/21/25 10:00 UNV Patient Own Medication 1 tab DAILY PO 03/21/25 10:00 UNV Gabapentin 300 mg DAILY PO 03/21/25 10:00 03/27/25 09:42 300 MG Levothyroxine Sodium 112 mcg DAILY PO 03/21/25 10:00 03/27/25 09:41 112 MCG Levothyroxine Sodium 25 mcg DAILY PO 03/21/25 10:00 03/27/25 09:41 25 MCG Diphenhydramine HCl 50 mg [id number] PRN PO 03/21/25 16:45 03/21/25 22:57 50 MG Albuterol 2.5 mg Q6HR NEB 03/21/25 18:00 03/27/25 12:04 2.5 MG Ipratropium [place] 0.5 mg Q6HWA [facility] 03/21/25 18:00 03/27/25 12:04 0.5 MG Patient Own Medication 1 tab BID PO 03/21/25 22:00 03/27/25 09:42 1 TAB Throat Lozenges 1 liv Q2HP PRN MT 03/23/25 04:00 03/23/25 14:52 1 LIV Furosemide 40 mg DAILY IV 03/25/25 10:00 03/25/25 13:22 40 MG Norepinephrine Bitartrate 250 ml @ 3.75 mls/hr Q24H IV 03/25/25 16:30 03/27/25 05:54 11.25 MLS/HR Pantoprazole Sodium 40 mg DAILY IV 03/26/25 10:00 03/27/25 09:42 40 MG Sodium Chloride 1,000 ml @ 50 mls/hr Q20H IV 03/26/25 14:15 03/26/25 15:56 50 MLS/HR Magnesium Oxide 400 mg DAILY PO 03/27/25 10:00 03/27/25 09:41 400 MG Ertapenem 0.5 gm DAILY IM 03/27/25 11:15 Cancel Amino Acids 0 ml @ 0 mls/hr PER PHARMACY IV 03/27/25 12:00 Diagnostic Test (Pha) 1 strip Q6HR 03/27/25 18:00 03/27/25 18:03 1 STRIP Insulin Human Regular FOLLOW SLIDING SCALE Q6HR SC 03/27/25 18:00 Dextrose 50 ml UD IV 03/27/25 12:30 Fat Emulsion Intravenous 100 ml/Sodium Chloride 20 meq/ Potassium Chloride 40 meq/ Calcium Gluconate 2.3 meq/Magnesium Sulfate 12 meq/ Multivitamins 10 ml/Chromium/ Copper/Manganese/ Zinc 1 ml/Amino Acids/Dextrose 943.9462 ml @ 39 mls/hr [id number] IV 03/27/25 22:00 03/28/25 21:59 objective Patient was resting comfortably in no acute distress HEENT: Normocephalic, no JVD Lungs: Bilateral good air entry CVS: S1, S2 regular rate rhythm Abdomen: Soft, bowel sounds present 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 Worsening GFR . will continue to monitor UOP . Albumin with lasix today . continue IV abx Dietary Evaluation Review Comments: Renal Specific 60g CCHO-60 Cardiac Diet d/t SCOT over CKD and low GFR Expected Outcomes/Goals: less uremic symptoms, better weight management Plan discussed with: Patient CC Plasma Assessment Blood Product Administration S: [id number] VÍCTOR JUDGE MD Mar 27, 2025 18:42
[2025-03-27] MEDS: ALBUMIN 25% 100 ML IV ONE (20:07)
[2025-03-27] MEDS: FUROSEMIDE 40 MG/4 ML VIAL IV ONE (21:16)
[2025-03-27] MEDS: TPN PER PHARMACY IV NR (22:20)
--- NOTE | 2025-03-27 23:40 | DVHPN2 ---
Progress Note - Dictate Date Seen: Mar 27, 2025 Has the PT tested + for MRSA If YES, has PT been informed?: No Medical Necessity Reason Pt with a Central, PICC or Fol: Yes The following are medically ne: Tijerina Catheter Reason for tijerina catheter: Strict I&O Subjective Patient seen and examined at bedside. Remains on supplemental oxygen Overnight events reviewed. vital signs Vital Sign Date Time Temp Pulse Resp B/P (MAP) Pulse Ox O2 Delivery O2 Flow Rate FiO2 03/27/25 22:30 88 13 121/55 (77) 96 03/27/25 22:00 Nasal Cannula* 2 28 03/27/25 20:00 97.9 97.9 Total Intake and Output 03/26/25 03/26/25 03/27/25 15:00 23:00 07:00 Intake Total 243.28 ml 702.251 ml 610.469 ml Output Total 101 ml 150 ml Balance 243.28 ml 601.251 ml 460.469 ml medications Current Medications Medications Dose Ordered Sig/Sravan Route Start Time Stop Time Status Last Admin Dose Admin Acetaminophen/ Hydrocodone Bitart 1 tab Q4HP PRN PO 03/20/25 12:15 03/25/25 21:24 1 TAB Ondansetron HCl 4 mg Q4HP PRN IV 03/20/25 12:15 03/26/25 08:18 4 MG Docusate Sodium 100 mg BIDPRN PRN PO 03/20/25 12:15 Acetaminophen 650 mg Q6HP PRN PO 03/20/25 12:15 03/23/25 14:02 650 MG Nitroglycerin 0.4 mg Q5MINP PRN SL 03/20/25 12:15 03/25/25 09:26 0.4 MG Morphine Sulfate 2 mg Q30M PRN IV 03/20/25 12:15 03/25/25 09:43 2 MG Allopurinol 100 mg DAILY PO 03/21/25 10:00 03/27/25 09:42 100 MG Apixaban 2.5 mg BID PO 03/20/25 22:00 03/27/25 22:17 2.5 MG Cilostazol 100 mg BID PO 03/20/25 22:00 03/27/25 22:56 100 MG Patient Own Medication 1 tab DAILY PO 03/21/25 10:00 UNV Patient Own Medication 1 tab DAILY PO 03/21/25 10:00 UNV Gabapentin 300 mg DAILY PO 03/21/25 10:00 03/27/25 09:42 300 MG Levothyroxine Sodium 112 mcg DAILY PO 03/21/25 10:00 03/27/25 09:41 112 MCG Levothyroxine Sodium 25 mcg DAILY PO 03/21/25 10:00 03/27/25 09:41 25 MCG Diphenhydramine HCl 50 mg [id number] PRN PO 03/21/25 16:45 03/21/25 22:57 50 MG Albuterol 2.5 mg Q6HR NEB 03/21/25 18:00 03/27/25 18:51 2.5 MG Ipratropium [place] 0.5 mg Q6HWA NEB 03/21/25 18:00 03/27/25 18:51 0.5 MG Patient Own Medication 1 tab BID PO 03/21/25 22:00 03/27/25 22:18 1 TAB Throat Lozenges 1 liv Q2HP PRN MT 03/23/25 04:00 03/23/25 14:52 1 LIV Furosemide 40 mg DAILY IV 03/25/25 10:00 03/25/25 13:22 40 MG Norepinephrine Bitartrate 250 ml @ 3.75 mls/hr Q24H IV 03/25/25 16:30 03/27/25 05:54 11.25 MLS/HR Pantoprazole Sodium 40 mg DAILY IV 03/26/25 10:00 03/27/25 09:42 40 MG Sodium Chloride 1,000 ml @ 50 mls/hr Q20H IV 03/26/25 14:15 03/26/25 15:56 50 MLS/HR Magnesium Oxide 400 mg DAILY PO 03/27/25 10:00 03/27/25 09:41 400 MG Ertapenem 0.5 gm DAILY IM 03/27/25 11:15 Cancel Amino Acids 0 ml @ 0 mls/hr PER PHARMACY IV 03/27/25 12:00 Diagnostic Test (Pha) 1 strip Q6HR 03/27/25 18:00 03/27/25 18:03 1 STRIP Insulin Human Regular FOLLOW SLIDING SCALE Q6HR SC 03/27/25 18:00 Dextrose 50 ml UD IV 03/27/25 12:30 Fat Emulsion Intravenous 100 ml/Sodium Chloride 20 meq/ Potassium Chloride 40 meq/ Calcium Gluconate 2.3 meq/Magnesium Sulfate 12 meq/ Multivitamins 10 ml/Chromium/ Copper/Manganese/ Zinc 1 ml/Amino Acids/Dextrose 943.9462 ml @ 39 mls/hr [id number] IV 03/27/25 22:00 03/28/25 21:59 03/27/25 22:20 39 MLS/HR objective Gen.: Patient lying in bed in no apparent distress. On supplemental oxygen. Head: Normocephalic, atraumatic. Eyes: EOMI/PERRLA. Ears: Normal hearing. Normal anatomy. Neck/trachea: Trachea midline, supple. Nose: Normal external anatomy. Mouth: Moist mucous membranes. Chest: Decreased air entry bilaterally. No wheezing or rhonchi. Cardiovascular: Positive S1, positive S2. Regular rate and rhythm. Abdomen: Positive bowel sounds in all 4 quadrants. Soft, non-tender, non- distended. : Deferred. Rectal: Deferred. Skin: Warm, dry. Intact. Extremities: 2+ radial pulses bilaterally. No lower extremity edema. Neuro: Awake, alert, oriented x3. No gross motor or sensory deficits. Cranial nerves II through XII intact. Gait not assessed. laboratory and microbiology Laboratory Tests 03/27/25 03:23 Test 03/27/25 03:23 Range/Units Serum Glucose 116 H 74-106 mg/dL Assessment/Plan Impression: Acute kidney injury Acute hypoxic respiratory failure Dependence on supplemental oxygen Chronic obstructive pulmonary disease Pneumonia Left hydronephrosis Septic shock Events: On supplemental oxygen 3 LPM via NC Taper O2 as tolerated On amiodarone for AFib On pressors for hemodynamic support Levophed 9 mcg/min Titrate to keep mean arterial pressure greater than 65 mmHg. Increased pressor requirements - taper as tolerated. Head of bed elevation Aspiration precautions Continue antibiotics Monitor WBC - currently 16.9 Continue bronchodilators On albumin IV fluids Diurese with Lasix Monitor renal function - Cr of 2.98 Monitor electrolytes. Supplement as necessary. K, mag supplementation S/p IR intervention for aspiration of pelvic abscess IR recommendations appreciated. Monitor hemoglobin - currently 7.8 g/dL Transfuse if less than 7.0 g/dL. Labs and imaging studies reviewed Plan Supplemental oxygen Titrate to keep O2 sats above 92%. Pressors as necessary for hemodynamic support Titrate to keep mean arterial pressure greater than 65 mmHg. Bronchodilators for COPD - stable Continue antibiotics F/u cultures Amiodarone Eliquis Monitor WBC Monitor hemoglobin Monitor renal function Monitor electrolytes. Supplement as necessary. Monitor ins and outs. Maintain euvolemia. F/u with urology/urology and gen sx GI prophylaxis. DVT prophylaxis. Prognosis: Poor given patient's multiple co-morbidities. Condition: Critical Rest of plan per hospitalist and other consultants. A total of 35 minutes of critical care time was spent reviewing the patient record, examining the patient, making a diagnostic and therapeutic plan, discussing this plan with the medical personnel, following up on diagnostic studies and following the patient for clinical stability excluding any and all procedures. At least 50% of this time was spent in direct, [id number] contact. Thank you, Dr. Celis, for allowing me to participate in this patient's care. Further recommendations will depend on the patient's clinical course. Please do not hesitate to contact me if you have any questions or concerns. This medical document was created using an electronic medical record system with [employer] dictation system. Although these documentations are being carefully reviewed, there may still be some phonetic and typographical changes. The errors are purely typographical, due to imperfection on the software program, and do not reflect any compromise in the patient's medical care. Dietary Evaluation Review Comments: Renal Specific 60g CCHO-60 Cardiac Diet d/t SCOT over CKD and low GFR Expected Outcomes/Goals: less uremic symptoms, better weight management Plan discussed with: Patient, Other (BOSTON Pierre) Critical Care Time(min): 35 CC Plasma Assessment Blood Product Administration S: [id number] PALOMO ROBLES MD Mar 27, 2025 23:40
[2025-03-28] VITALS (111 sets, daily range): BP systolic 81–134; BP diastolic 34–81; PULSE 81–108; RESP 11–21; TEMP 97.5–98; O2SAT 92–100
[2025-03-28 04:29] LABS: Hemoglobin 7.6 g/dL (12.2-16.2); Nucleated Red Blood Cells % 0.4 %
[2025-03-28 04:31] LABS: Albumin 3.2 g/dL (3.2-4.8); Anion Gap 12 (5-15); BUN/Creatinine Ratio 19.3 (10.0-20.0); Carbon Dioxide 25 mmol/L (20-31); Chloride 100 mmol/L (98-107); Hematocrit 23.4 % (36.0-46.0); Magnesium 1.9 mg/dL (1.6-2.6); Mean Corpuscular Hemoglobin 27.7 pg (28.0-32.0); Mean Corpuscular Volume 84.8 fL (80.0-100.0); Sodium 137 mmol/L (136-145); Total Protein 5.9 g/dL (5.7-8.2)
[2025-03-28 04:32] LABS: Bilirubin, Total 0.5 mg/dL (0.2-1.0)
[2025-03-28 04:41] LABS: Alanine Aminotransferase 120 U/L (7-40); Alkaline Phosphatase 126 U/L (46-116); Blood Urea Nitrogen 65 mg/dL (9-23); Calcium 8.2 mg/dL (8.7-10.4); Glucose 147 mg/dL (74-106); Potassium 3.4 mmol/L (3.5-5.1)
--- NOTE | 2025-03-28 06:43 | DVHPN2 ---
Progress Note - Dictate Date Seen: Mar 28, 2025 Has the PT tested + for MRSA If YES, has PT been informed?: No Medical Necessity Reason Pt with a Central, PICC or Fol: Yes The following are medically ne: Tijerina Catheter Reason for tijerina catheter: Strict I&O vital signs Vital Sign Date Time Temp Pulse Resp B/P (MAP) Pulse Ox O2 Delivery O2 Flow Rate FiO2 03/28/25 06:15 90 18 108/58 (75) 96 03/28/25 06:00 Nasal Cannula* 2 28 03/28/25 04:01 97.5 97.5 Total Intake and Output 03/27/25 03/27/25 03/28/25 15:00 23:00 07:00 Intake Total 665.468 ml 792.22 ml 774.00 ml Output Total 125 ml 175 ml Balance 665.468 ml 667.22 ml 599.00 ml medications Current Medications Medications Dose Ordered Sig/Sravan Route Start Time Stop Time Status Last Admin Dose Admin Acetaminophen/ Hydrocodone Bitart 1 tab Q4HP PRN PO 03/20/25 12:15 03/25/25 21:24 1 TAB Ondansetron HCl 4 mg Q4HP PRN IV 03/20/25 12:15 03/26/25 08:18 4 MG Docusate Sodium 100 mg BIDPRN PRN PO 03/20/25 12:15 Acetaminophen 650 mg Q6HP PRN PO 03/20/25 12:15 03/23/25 14:02 650 MG Nitroglycerin 0.4 mg Q5MINP PRN SL 03/20/25 12:15 03/25/25 09:26 0.4 MG Morphine Sulfate 2 mg Q30M PRN IV 03/20/25 12:15 03/25/25 09:43 2 MG Allopurinol 100 mg DAILY PO 03/21/25 10:00 03/27/25 09:42 100 MG Apixaban 2.5 mg BID PO 03/20/25 22:00 03/27/25 22:17 2.5 MG Cilostazol 100 mg BID PO 03/20/25 22:00 03/27/25 22:56 100 MG Patient Own Medication 1 tab DAILY PO 03/21/25 10:00 UNV Patient Own Medication 1 tab DAILY PO 03/21/25 10:00 UNV Gabapentin 300 mg DAILY PO 03/21/25 10:00 03/27/25 09:42 300 MG Levothyroxine Sodium 112 mcg DAILY PO 03/21/25 10:00 03/27/25 09:41 112 MCG Levothyroxine Sodium 25 mcg DAILY PO 03/21/25 10:00 03/27/25 09:41 25 MCG Diphenhydramine HCl 50 mg [id number] PRN PO 03/21/25 16:45 03/21/25 22:57 50 MG Albuterol 2.5 mg Q6HR NEB 03/21/25 18:00 03/27/25 23:56 2.5 MG Ipratropium [place] 0.5 mg Q6HWA NEB 03/21/25 18:00 03/27/25 23:56 0.5 MG Patient Own Medication 1 tab BID PO 03/21/25 22:00 03/27/25 22:18 1 TAB Throat Lozenges 1 liv Q2HP PRN MT 03/23/25 04:00 03/23/25 14:52 1 LIV Furosemide 40 mg DAILY IV 03/25/25 10:00 03/25/25 13:22 40 MG Norepinephrine Bitartrate 250 ml @ 3.75 mls/hr Q24H IV 03/25/25 16:30 03/28/25 00:24 15 MLS/HR Pantoprazole Sodium 40 mg DAILY IV 03/26/25 10:00 03/27/25 09:42 40 MG Sodium Chloride 1,000 ml @ 50 mls/hr Q20H IV 03/26/25 14:15 03/26/25 15:56 50 MLS/HR Magnesium Oxide 400 mg DAILY PO 03/27/25 10:00 03/27/25 09:41 400 MG Ertapenem 0.5 gm DAILY IM 03/27/25 11:15 Cancel Amino Acids 0 ml @ 0 mls/hr PER PHARMACY IV 03/27/25 12:00 Diagnostic Test (Pha) 1 strip Q6HR 03/27/25 18:00 03/28/25 06:14 1 STRIP Insulin Human Regular FOLLOW SLIDING SCALE Q6HR SC 03/27/25 18:00 03/28/25 06:15 2 UNITS Dextrose 50 ml UD IV 03/27/25 12:30 Fat Emulsion Intravenous 100 ml/Sodium Chloride 20 meq/ Potassium Chloride 40 meq/ Calcium Gluconate 2.3 meq/Magnesium Sulfate 12 meq/ Multivitamins 10 ml/Chromium/ Copper/Manganese/ Zinc 1 ml/Amino Acids/Dextrose 943.9462 ml @ 39 mls/hr [id number] IV 03/27/25 22:00 03/28/25 21:59 03/27/25 22:20 39 MLS/HR laboratory and microbiology Laboratory Tests 03/28/25 03:28 Test 03/28/25 03:28 Range/Units Serum Glucose 147 H 74-106 mg/dL Assessment/Plan Patient is a 74-year-old female who was admitted on March 20, 2025 for abdominal pain/nausea/vomiting. She is admitted to ICU for septic shock. On March 24, 2025, cardiology was involved for cardiac aspects of care. Patient is known to our practice from before and previous admissions. She is known to have significant alcohol abuse (drinks whiskey every day) and also history of pulmonary hypertension/type 2 pulmonary hypertension, diastolic heart failure. Does have poor functional capacity and is bed-bound. Is significantly morbidly obese. Does have baseline history of atrial fibrillation and is on Eliquis as outpatient. Is found to have septic shock and possible pelvic abscess. Is seen by surgery/Urology/pulmonary/GI. Denies chest pains. Denies palpitations. Is noncompliant with medication and followups. While being managed in ICU was found to have atrial fibrillation with RVR. 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 She has had multiple surgeries in the bilateral feet. She also has history of COPD/asthma with chronic respiratory failure (on home oxygen). Morbidly obese. Not in acute distress. No JVD. Mucosa is dry. Mucosa is pink. No JVD. No carotid bruit. Not using accessory muscles of breathing. Scattered rhonchi in the lungs is heard. Cardiac: Irregular, no thrill. Abdomen is obese and soft. There is no gross hepatomegaly, but it is presence can not be ruled out (body habitus, morbidly obese). There is 3+ edema in bilateral lower extremities which extends to abdominal wall. Past medical history includes morbid obesity, atrial fibrillation (on Eliquis as outpatient), COPD/asthma with chronic respiratory failure on home oxygen, morbid obesity, hypertension, hyperlipidemia, chronic lymphedema, Diastolic heart failure with type 2 pulmonary hypertension, rheumatoid arthritis, osteoarthritis, peripheral vascular disease, CKD (stage IV), anemia, alcohol abuse, neuropathy, gout, old history of right and left foot fracture and their management, status post right knee replacement, status post , bed-bound at baseline and functional quadriplegia. Patient drinks whiskey daily. Goes to Nephrology regularly. Reportedly, there has been some concern about going to have fistula creation on preparation for dialysis? Echocardiogram of January 03 2024 (performed in [facility]) revealed ejection fraction of 60%, mild biatrial enlargement, mild MR/TR and right ventricular systolic pressure of 31 mm Hg. Echocardiogram of (performed in [facility]) revealed: EF of 50 to 55%, Dilated right ventricle with normal systolic function. Severe biatrial enlargement. Mild AI, mild to moderate MR, moderate TR and RVSP of 51 mmHg. Ascending Aorta was 3.7 cm. Echocardiogram of November 09, 2024 revealed ejection fraction of 72%, mild right ventricular enlargement, moderate biatrial enlargement, mild to moderate tricuspid regurgitation, mild mitral regurgitation, right ventricular systolic pressure 54 mm Hg Echocardiogram of February 23, 2025 revealed ejection fraction of around 50%, mild concentric left ventricular hypertrophy, right ventricular enlargement with preserved systolic function. Biatrial enlargement, mild aortic insufficiency, [id number] mitral regurgitation and tricuspid regurgitation. IVC was significantly dilated. Right ventricular systolic pressure of of 55 mm Hg WBC: 5.2 - 8.2-12.3 - 8.5 - 11.3 - 13.7 - 21.6 - 16.9 - 15.1 Hemoglobin: 6.7 - 8.6 - 8.1 - 7.6 - 7.9 - 7.7 - 7.8 - 7.8 - 7.6 Platelet: 57 - 73 - 91 - 108 - 159 - 189 - 257 - 322 - 312 Creatinine: 3.29 - 2.63 - 2.77 - 2.59 - 2.13 - 1.98 - 1.98 - 2.47- 2.98 - 3.36 Potassium: 3.9 - 3.4 - 3.8 - 3.3 - 3.4 - 3.9 - 3.5 - 3.5 - 3.3 - 3.4 Sodium: 124 - 129 - 129 - 131 - 135 - 138 - 138 - 139 - 138 - 137 AST/ALT: 143/111 - 347/315 - 48/358 - 11/120 Troponin (high sensitive): 32 - 31 - 34 TSH: 0.17 - 0.15 T3: 0.40 (low) T4: 5.7 Free T4: 1.27 Free T3: 1.55 (low) Chest x-ray revealed: IMPRESSION: Cardiomegaly. Repeat chest x-ray revealed: IMPRESSION: 1. Cardiomegaly with increased interstitial prominence suggestive of CHF exacerbation. 2. Pulmonary arterial hypertension. Repeat chest x-ray revealed: IMPRESSION: Cardiomegaly with mild pulmonary congestion. . Repeat chest x-ray revealed: IMPRESSION: Cardiomegaly with pulmonary congestion and edema. Superimposed pneumonia cannot be excluded. Repeat chest x-ray revealed: IMPRESSION: Worsening right lower lung airspace disease. Suggestion of small bilateral pleural effusions. Abdominal ultrasound revealed: IMPRESSION: Small left hydronephrosis Renal scan revealed: IMPRESSION: Bilateral renal obstruction is present which is not response to Lasix administration suggesting that the kidney may be minimally functional. Abdomen and pelvic CT scan revealed: IMPRESSION: Moderate left hydroureteronephrosis. Suggestion of possible small abscess formation in the left hemipelvis associated with the sigmoid colon measuring 5.7 cm. This may represent site of ureteral obstruction. Clinical correlation advised. Examination is limited secondary to lack of intravenous and oral contrast administration. Abdomen and pelvis CT revealed: IMPRESSION: Sigmoid colonic diverticulitis with an adjacent 6 cm fluid collection with gas, could be an abscess. Probable fistula of the sigmoid to the fluid collection, and possibly with the urinary bladder, which is decompressed with a Tijerina. Possible trace left hydronephrosis with perinephric fat stranding. CT guided abscess drainage: IMPRESSION: CT guided placement of 8 bruneian pigtail drain into a left hemipelvic abscess with 30 mL purulent fluid aspirated. PLAN: Routine tube care. Renal ultrasound revealed: IMPRESSION: Unremarkable renal ultrasound without hydronephrosis seen. EKG revealed atrial fibrillation with RVR Tele reveals atrial fibrillation with RVR Echocardiogram revealed: Left ventricle: Mild concentric left ventricular hypertrophy was seen. LVEF was around 50%. Right ventricle was mildly dilated with reduced systolic function. Both atria were dilated. Aortic valve was not well visualized. There was no aortic insufficiency/stenosis. There was mild mitral regurgitation. There was [id number] tricuspid regurgitation. Pulmonary valve was not well visualized. Right ventricular systolic pressure was assessed at 50 mm Hg. IVC was dilated. There was no pericardial effusion. Patient is a 74-year-old female with known history of diastolic heart failure with type 2 pulmonary hypertension who presented with abdominal pain. He is admitted to ICU with septic shock. Did have thrombocytopenia which slowly improved. Was significantly anemic and was transfused PRBC. There has been question about pelvic abscess and the patient is on antibiotics. Patient is being followed by surgery/Urology/pulmonary/GI. It is of note that the patient does have history of significant alcohol abuse (drinks good amount of whiskey daily) which could contribute to to some component of the clinical picture. Does have baseline history of pulmonary hypertension. Usually is on some amount of diuretic (Bumex) as outpatient. Clinically, the patient does have dry mucosa and maybe behind fluids at the time of evaluation. Does have baseline poor functional capacity. Does have history of recent sepsis. s/p CT guided abscess drainage. Seen by Nephrology. Diuretics are on hold. TFT are in favor of subclinical thyroid problem. Significant anemia, status post PRBC transfusion Thrombocytopenia, resolved Septic shock SCOT on CKD Hydronephrosis Pelvic abscess Transaminitis Acute on chronic diastolic heart failure Pulmonary Hypertension, type 2 Alcohol abuse Morbid obesity Poor functional capacity Bed-bound at baseline Atrial fibrillation with RVR Hyperlipidemia Osteoarthritis Rheumatoid arthritis Peripheral vascular disease Abdominal abscess? s/p CT guided abscess drainage Cardiac suggestion for management: Manage in ICU Follow-up electrolytes and kidney function tests and correct abnormalities Full anticoagulation (on Eliquis presently), long-term May need some fluid resuscitation Nephrology follow up IV amiodarone Pressor support at this point to keep mean arterial pressure above 65 Evaluation and management of sepsis/infection as per primary team Evaluation and management of alcohol abuse/prevention of withdrawal as per primary team Evaluation and management of pelvic abscess/hydronephrosis as per primary team/surgery/Urology Further evaluation and management depends on the above and clinical course A total of 75 minutes was spent reviewing the patient record, examining the patient, making a diagnostic and therapeutic plan, discussing this plan with medical personnel, following up on diagnostic studies and following the patient for clinical stability excluding any and all procedures. At least 50% of this time was spent in direct, [id number] contact. Thank you for allowing me to participate in this patient's care. Further recommendations will depend on patient's clinical course. Please do not hesitate to contact me if you have any questions or concerns. This medical document was created using electronic medical record system with [employer] computerized dictation system. Although this document has been carefully reviewed, there may still be some phonetic and typographical errors. These areas are purely typographical due to the imperfection of the software programs, and do not reflect any compromise in the patient's medical care. Dietary Evaluation Review Comments: Renal Specific 60g CCHO-60 Cardiac Diet d/t SCOT over CKD and low GFR Expected Outcomes/Goals: less uremic symptoms, better weight management Plan discussed with: Patient, Other (nurse) CC Plasma Assessment Blood Product Administration S: [id number] AUSTIN ROMERO MD Mar 28, 2025 06:43
[2025-03-28] MEDS: NOREPINEPHRINE 8 MG/250ML KIT 250 ML IV SCH (09:15)
--- NOTE | 2025-03-28 09:21 | DVHPN2 ---
Subjective Patient continues to have pain to left lower quadrant where IR drain was placed. Reviewed: Care Plan, H&P, Labs, Medications, Previous Orders, Radiology Changes from previous H/P or p: No Changes General: Per HPI Eyes: No Pain, No Vision change, No Conjunctivae inflammation, No Eyelid inflammation, No Other, No Redness ENT: No Ear pain, No Ear discharge, No Nose pain, No Nose discharge, No Nose congestion, No Mouth pain, No Mouth swelling, No Throat pain, No Throat swelling, No Other Cardiovascular: No Chest Pain, No Palpitations, No Orthopnea, No Paroxysmal Noc. Dyspnea, No Edema, No Lt Headedness, No Other Respiratory: No Cough, No Dry, No Shortness of breath, No SOB with excertion, No Wheezing, No Hemoptysis, No Pleuritic Pain, No Sputum, No Other Gastrointestinal: Nausea, Vomiting, Abdominal Pain; No Diarrhea, No Constipation, No Melena, No Hematochezia, No Other Genitourinary: No Dysuria, No Frequency, No Incontinence, No Hematuria, No Retention, No Other Musculoskeletal: No other, No neck pain, No shoulder pain, No arm pain, No back pain, No hand pain, No leg pain, No foot pain Skin: No Rash, No Lesions, No Jaundice, No Bruising, No Other Objective Vitals Vital Signs Date Time Temp Pulse Resp B/P (MAP) Pulse Ox O2 Delivery O2 Flow Rate FiO2 03/28/25 08:30 98 17 106/50 (68) 98 03/28/25 08:00 97.5 97.5 03/28/25 08:00 Nasal Cannula* 2 28 Intake/Output Intake and Output 03/28/25 07:00 Intake Total 2473.008 ml Output Total 300 ml Balance 2173.008 ml IV Total 2473.008 ml Output Urine Total 300 ml General Appearance: Alert, Oriented X3, Cooperative, Other (Morbid obesity) HEENT: Atraumatic, PERRLA Cardiovascular: Normal S1, Normal S2, Other (Atrial fibrillation with controlled rate) Abdomen: Normal bowel sounds, Other (Drain with minimal pustulant drainage to quadrant.) Extremities: No edema, Normal pulses Skin: Dry, Intact Psych/Mental Status: Mental status NL, Mood NL Medications Current Medications Medications Dose Ordered Sig/Sravan Route Start Time Stop Time Status Last Admin Dose Admin Acetaminophen/ Hydrocodone Bitart 1 tab Q4HP PRN PO 03/20/25 12:15 03/25/25 21:24 1 TAB Ondansetron HCl 4 mg Q4HP PRN IV 03/20/25 12:15 03/26/25 08:18 4 MG Docusate Sodium 100 mg BIDPRN PRN PO 03/20/25 12:15 Acetaminophen 650 mg Q6HP PRN PO 03/20/25 12:15 03/23/25 14:02 650 MG Nitroglycerin 0.4 mg Q5MINP PRN SL 03/20/25 12:15 03/25/25 09:26 0.4 MG Morphine Sulfate 2 mg Q30M PRN IV 03/20/25 12:15 03/25/25 09:43 2 MG Allopurinol 100 mg DAILY PO 03/21/25 10:00 03/27/25 09:42 100 MG Apixaban 2.5 mg BID PO 03/20/25 22:00 03/27/25 22:17 2.5 MG Cilostazol 100 mg BID PO 03/20/25 22:00 03/27/25 22:56 100 MG Patient Own Medication 1 tab DAILY PO 03/21/25 10:00 UNV Patient Own Medication 1 tab DAILY PO 03/21/25 10:00 UNV Gabapentin 300 mg DAILY PO 03/21/25 10:00 03/27/25 09:42 300 MG Levothyroxine Sodium 112 mcg DAILY PO 03/21/25 10:00 03/27/25 09:41 112 MCG Levothyroxine Sodium 25 mcg DAILY PO 03/21/25 10:00 03/27/25 09:41 25 MCG Diphenhydramine HCl 50 mg [id number] PRN PO 03/21/25 16:45 03/21/25 22:57 50 MG Albuterol 2.5 mg Q6HR NEB 03/21/25 18:00 03/28/25 06:57 2.5 MG Ipratropium [place] 0.5 mg Q6HWA NEB 03/21/25 18:00 03/28/25 06:57 0.5 MG Patient Own Medication 1 tab BID PO 03/21/25 22:00 03/27/25 22:18 1 TAB Throat Lozenges 1 liv Q2HP PRN MT 03/23/25 04:00 03/23/25 14:52 1 LIV Furosemide 40 mg DAILY IV 03/25/25 10:00 03/25/25 13:22 40 MG Pantoprazole Sodium 40 mg DAILY IV 03/26/25 10:00 03/27/25 09:42 40 MG Sodium Chloride 1,000 ml @ 50 mls/hr Q20H IV 03/26/25 14:15 03/26/25 15:56 50 MLS/HR Magnesium Oxide 400 mg DAILY PO 03/27/25 10:00 03/27/25 09:41 400 MG Ertapenem 0.5 gm DAILY IM 03/27/25 11:15 Cancel Amino Acids 0 ml @ 0 mls/hr PER PHARMACY IV 03/27/25 12:00 Diagnostic Test (Pha) 1 strip Q6HR 03/27/25 18:00 03/28/25 06:14 1 STRIP Insulin Human Regular FOLLOW SLIDING SCALE Q6HR SC 03/27/25 18:00 03/28/25 06:15 2 UNITS Dextrose 50 ml UD IV 03/27/25 12:30 Fat Emulsion Intravenous 100 ml/Sodium Chloride 20 meq/ Potassium Chloride 40 meq/ Calcium Gluconate 2.3 meq/Magnesium Sulfate 12 meq/ Multivitamins 10 ml/Chromium/ Copper/Manganese/ Zinc 1 ml/Amino Acids/Dextrose 943.9462 ml @ 39 mls/hr [id number] IV 03/27/25 22:00 03/28/25 21:59 03/27/25 22:20 39 MLS/HR Norepinephrine Bitartrate 250 ml @ 0.938 mls/ hr Q24H IV 03/28/25 09:15 UNV Laboratory Results Laboratory Tests 03/28/25 03:28 Chemistry Test 03/28/25 03:28 Albumin 3.2 g/dL (3.2-4.8) Calcium Level 8.2 mg/dL (8.7-10.4) L Magnesium Level 1.9 mg/dL (1.6-2.6) Phosphorus Level 4.1 mg/dL (2.4-5.1) Total Protein 5.9 g/dL (5.7-8.2) LFT Test 03/28/25 03:28 Alanine Aminotransferase (ALT) 120 U/L (7-40) H Alkaline Phosphatase 126 U/L (46-116) H Aspartate Amino Transferase (AST) 11 U/L (13-40) L Total Bilirubin 0.5 mg/dL (0.2-1.0) Urinalysis Test 03/20/25 09:34 Urine Color Colorless (Yellow) Urine Clarity Turbid (Clear) H Urine pH 5.0 (5.0-9.0) Urine Specific [place] 1.015 (1.001-1.035) Urine Protein Negative (Negative) Urine Ketones Negative (Negative) Urine Blood Negative /uL (Negative) Urine Nitrite Negative (Negative) Urine Bilirubin Negative (Negative) Urine Urobilinogen Normal mg/dL (Negative) Urine Leukocyte Esterase 3+ /uL (Negative) Urine RBC 1 /hpf (0 - 4) Urine Microscopic WBC 255 /HPF (0-5) H Urine Squamous Epithelial Cells Few /hpf (<5) Urine Bacteria Few /hpf (None Seen) H Urine Glucose Normal mg/dL (Normal) Microbiology Microbiology Date/Time Source Procedure Growth Status 03/26/25 15:00 Aspirate Gram Stain - Final Resulted 03/26/25 15:00 Aspirate Body Fluid Culture - Preliminary Resulted 03/23/25 04:30 Throat Nose/Throat Culture - Final Complete 03/21/25 18:00 Urine - Catheterized Urine Culture - Final Escherichia coli - ESBL Klebsiella pneumoniae - ESBL Complete 03/20/25 21:52 Nose MRSA Screen - Final Complete Labs and/or images reviewed: Labs reviewed by me, Image(s) reviewed by me Assessment/Plan Assessment/Plan Impression: -septic shock -diverticular abscess -AFib with RVR -morbid obesity -obstructive uropathy -CKD stage 4 -acute kidney injury, vasomotor nephropathy -acute on chronic systolic and diastolic heart failure -bed-bound status -complicated cystitis with ESBL in the urine. Plan: -continue norepinephrine drip to keep systolic blood pressure greater than 100 mm of mercury -continue Meropenem -continue rate control with IV amiodarone. Switch to p.o. per Cardiology -status post IR drain placement diverticular abscess. Minimal drainage noted today -repeat renal ultrasound reveals that hydronephrosis has resolved. Further course of care per Urology -surgical consultation: Recommendations reviewed -continue anticoagulation with Eliquis -continue NPO except for medications -repeat labs in a.m. -repeat CT scan in two days to assess diverticular abscess. Critical care time spent with patient discussing and formulating plan of care: 40 minutes. This does not include time spent performing procedures. This medical document was created using an electronic medical record system with [employer] dictation system. Although this document has been carefully reviewed, there may still be some phonetic and typographical errors. These areas are purely typographical due to imperfections of the software programs, and do not reflect any compromise in the patient's medical care. Plan discussed with: Patient, Other (RN) My Orders Orders - GONZALO ASKEW NP Procedure Category Date Status Time Complete Blood Count LAB 03/29/25 Verified 05:00 Complete Blood Count LAB 03/30/25 Verified 05:00 Basic Metabolic Panel LAB 03/29/25 Verified 05:00 Basic Metabolic Panel LAB 03/30/25 Verified 05:00 Central Line W/ Cont ORDERS 03/27/25 Transmitted CVP 11:56 Tpn Per Pharmacy PHA 03/27/25 In Process 12:00 Glucose Blood PHA 03/27/25 In Process (Accu-Chek Comfort 18:00 Insulin R (Human) PHA 03/27/25 In Process (Insulin R) 18:00 Dextrose 50% Syringe PHA 03/27/25 In Process 12:30 Amino Acid PHA 03/27/25 In Process Infusion... W/Fat 22:00 Tpn Per Pharmacy EBONY 03/27/25 In Process 22:00 Meropenem 500mg PHA 03/27/25 In Process Premix (Merrem 14:15 Norepinephrine 8 PHA 03/28/25 Logged Mg/250ml Kit 09:15 Date of Service: Mar 28, 2025 Billing Provider: GONZALO ASKEW NP Common Visit Codes: [id number] CARE 30-74 MIN GONZALO ASKEW NP Mar 28, 2025 09:21
--- NOTE | 2025-03-28 09:23 | DVHPN2 ---
Subjective Patient continues to have pain to left lower quadrant where IR drain was placed. Reviewed: Care Plan, H&P, Labs, Medications, Previous Orders, Radiology Changes from previous H/P or p: No Changes General: Per HPI Eyes: No Pain, No Vision change, No Conjunctivae inflammation, No Eyelid inflammation, No Other, No Redness ENT: No Ear pain, No Ear discharge, No Nose pain, No Nose discharge, No Nose congestion, No Mouth pain, No Mouth swelling, No Throat pain, No Throat swelling, No Other Cardiovascular: No Chest Pain, No Palpitations, No Orthopnea, No Paroxysmal Noc. Dyspnea, No Edema, No Lt Headedness, No Other Respiratory: No Cough, No Dry, No Shortness of breath, No SOB with excertion, No Wheezing, No Hemoptysis, No Pleuritic Pain, No Sputum, No Other Gastrointestinal: Nausea, Vomiting, Abdominal Pain; No Diarrhea, No Constipation, No Melena, No Hematochezia, No Other Genitourinary: No Dysuria, No Frequency, No Incontinence, No Hematuria, No Retention, No Other Musculoskeletal: No other, No neck pain, No shoulder pain, No arm pain, No back pain, No hand pain, No leg pain, No foot pain Skin: No Rash, No Lesions, No Jaundice, No Bruising, No Other Objective Vitals Vital Signs Date Time Temp Pulse Resp B/P (MAP) Pulse Ox O2 Delivery O2 Flow Rate FiO2 03/28/25 08:30 98 17 106/50 (68) 98 03/28/25 08:00 97.5 97.5 03/28/25 08:00 Nasal Cannula* 2 28 Intake/Output Intake and Output 03/28/25 07:00 Intake Total 2473.008 ml Output Total 300 ml Balance 2173.008 ml IV Total 2473.008 ml Output Urine Total 300 ml General Appearance: Alert, Oriented X3, Cooperative, Other (Morbid obesity) HEENT: Atraumatic, PERRLA Cardiovascular: Normal S1, Normal S2, Other (Atrial fibrillation with controlled rate) Abdomen: Normal bowel sounds, Other (Drain with minimal pustulant drainage to quadrant.) Extremities: No edema, Normal pulses Skin: Dry, Intact Psych/Mental Status: Mental status NL, Mood NL Medications Current Medications Medications Dose Ordered Sig/Sravan Route Start Time Stop Time Status Last Admin Dose Admin Acetaminophen/ Hydrocodone Bitart 1 tab Q4HP PRN PO 03/20/25 12:15 03/25/25 21:24 1 TAB Ondansetron HCl 4 mg Q4HP PRN IV 03/20/25 12:15 03/26/25 08:18 4 MG Docusate Sodium 100 mg BIDPRN PRN PO 03/20/25 12:15 Acetaminophen 650 mg Q6HP PRN PO 03/20/25 12:15 03/23/25 14:02 650 MG Nitroglycerin 0.4 mg Q5MINP PRN SL 03/20/25 12:15 03/25/25 09:26 0.4 MG Morphine Sulfate 2 mg Q30M PRN IV 03/20/25 12:15 03/25/25 09:43 2 MG Allopurinol 100 mg DAILY PO 03/21/25 10:00 03/27/25 09:42 100 MG Apixaban 2.5 mg BID PO 03/20/25 22:00 03/27/25 22:17 2.5 MG Cilostazol 100 mg BID PO 03/20/25 22:00 03/27/25 22:56 100 MG Patient Own Medication 1 tab DAILY PO 03/21/25 10:00 UNV Patient Own Medication 1 tab DAILY PO 03/21/25 10:00 UNV Gabapentin 300 mg DAILY PO 03/21/25 10:00 03/27/25 09:42 300 MG Levothyroxine Sodium 112 mcg DAILY PO 03/21/25 10:00 03/27/25 09:41 112 MCG Levothyroxine Sodium 25 mcg DAILY PO 03/21/25 10:00 03/27/25 09:41 25 MCG Diphenhydramine HCl 50 mg [id number] PRN PO 03/21/25 16:45 03/21/25 22:57 50 MG Albuterol 2.5 mg Q6HR NEB 03/21/25 18:00 03/28/25 06:57 2.5 MG Ipratropium [place] 0.5 mg Q6HWA NEB 03/21/25 18:00 03/28/25 06:57 0.5 MG Patient Own Medication 1 tab BID PO 03/21/25 22:00 03/27/25 22:18 1 TAB Throat Lozenges 1 liv Q2HP PRN MT 03/23/25 04:00 03/23/25 14:52 1 LIV Furosemide 40 mg DAILY IV 03/25/25 10:00 03/25/25 13:22 40 MG Pantoprazole Sodium 40 mg DAILY IV 03/26/25 10:00 03/27/25 09:42 40 MG Sodium Chloride 1,000 ml @ 50 mls/hr Q20H IV 03/26/25 14:15 03/26/25 15:56 50 MLS/HR Magnesium Oxide 400 mg DAILY PO 03/27/25 10:00 03/27/25 09:41 400 MG Ertapenem 0.5 gm DAILY IM 03/27/25 11:15 Cancel Amino Acids 0 ml @ 0 mls/hr PER PHARMACY IV 03/27/25 12:00 Diagnostic Test (Pha) 1 strip Q6HR 03/27/25 18:00 03/28/25 06:14 1 STRIP Insulin Human Regular FOLLOW SLIDING SCALE Q6HR SC 03/27/25 18:00 03/28/25 06:15 2 UNITS Dextrose 50 ml UD IV 03/27/25 12:30 Fat Emulsion Intravenous 100 ml/Sodium Chloride 20 meq/ Potassium Chloride 40 meq/ Calcium Gluconate 2.3 meq/Magnesium Sulfate 12 meq/ Multivitamins 10 ml/Chromium/ Copper/Manganese/ Zinc 1 ml/Amino Acids/Dextrose 943.9462 ml @ 39 mls/hr [id number] IV 03/27/25 22:00 03/28/25 21:59 03/27/25 22:20 39 MLS/HR Norepinephrine Bitartrate 250 ml @ 0.938 mls/ hr Q24H IV 03/28/25 09:15 UNV Laboratory Results Laboratory Tests 03/28/25 03:28 Chemistry Test 03/28/25 03:28 Albumin 3.2 g/dL (3.2-4.8) Calcium Level 8.2 mg/dL (8.7-10.4) L Magnesium Level 1.9 mg/dL (1.6-2.6) Phosphorus Level 4.1 mg/dL (2.4-5.1) Total Protein 5.9 g/dL (5.7-8.2) LFT Test 03/28/25 03:28 Alanine Aminotransferase (ALT) 120 U/L (7-40) H Alkaline Phosphatase 126 U/L (46-116) H Aspartate Amino Transferase (AST) 11 U/L (13-40) L Total Bilirubin 0.5 mg/dL (0.2-1.0) Urinalysis Test 03/20/25 09:34 Urine Color Colorless (Yellow) Urine Clarity Turbid (Clear) H Urine pH 5.0 (5.0-9.0) Urine Specific [place] 1.015 (1.001-1.035) Urine Protein Negative (Negative) Urine Ketones Negative (Negative) Urine Blood Negative /uL (Negative) Urine Nitrite Negative (Negative) Urine Bilirubin Negative (Negative) Urine Urobilinogen Normal mg/dL (Negative) Urine Leukocyte Esterase 3+ /uL (Negative) Urine RBC 1 /hpf (0 - 4) Urine Microscopic WBC 255 /HPF (0-5) H Urine Squamous Epithelial Cells Few /hpf (<5) Urine Bacteria Few /hpf (None Seen) H Urine Glucose Normal mg/dL (Normal) Microbiology Microbiology Date/Time Source Procedure Growth Status 03/26/25 15:00 Aspirate Gram Stain - Final Resulted 03/26/25 15:00 Aspirate Body Fluid Culture - Preliminary Resulted 03/23/25 04:30 Throat Nose/Throat Culture - Final Complete 03/21/25 18:00 Urine - Catheterized Urine Culture - Final Escherichia coli - ESBL Klebsiella pneumoniae - ESBL Complete 03/20/25 21:52 Nose MRSA Screen - Final Complete Labs and/or images reviewed: Labs reviewed by me, Image(s) reviewed by me Assessment/Plan Assessment/Plan Impression: -septic shock -diverticular abscess -AFib with RVR -morbid obesity -obstructive uropathy -CKD stage 4 -acute kidney injury, vasomotor nephropathy -acute on chronic systolic and diastolic heart failure -bed-bound status -complicated cystitis with ESBL in the urine. Plan: Events: Long discussion made with the patient's daughter who was bedside regarding of care. Answered. -switch antibiotic therapy to Meropenem -continue rate control with IV amiodarone. Switch to p.o. per Cardiology -status post IR drain placement diverticular abscess. -repeat renal ultrasound reveals that hydronephrosis has resolved. Further course of care per Urology -surgical consultation: Recommendations reviewed -continue anticoagulation with Eliquis -continue NPO except for medications -repeat labs in a.m. Critical care time spent with patient discussing and formulating plan of care: 40 minutes. This does not include time spent performing procedures. This medical document was created using an electronic medical record system with [employer] computerized dictation system. Although this document has been carefully reviewed, there may still be some phonetic and typographical errors. These areas are purely typographical due to imperfections of the software programs, and do not reflect any compromise in the patient's medical care. Plan discussed with: Patient, Other (RN) My Orders Orders - GONZALO ASKEW NP Procedure Category Date Status Time Complete Blood Count LAB 03/29/25 Verified 05:00 Complete Blood Count LAB 03/30/25 Verified 05:00 Basic Metabolic Panel LAB 03/29/25 Verified 05:00 Basic Metabolic Panel LAB 03/30/25 Verified 05:00 Central Line W/ Cont ORDERS 03/27/25 Transmitted CVP 11:56 Tpn Per Pharmacy PHA 03/27/25 In Process 12:00 Glucose Blood PHA 03/27/25 In Process (Accu-Chek Comfort 18:00 Insulin R (Human) PHA 03/27/25 In Process (Insulin R) 18:00 Dextrose 50% Syringe PHA 03/27/25 In Process 12:30 Amino Acid PHA 03/27/25 In Process Infusion... W/Fat 22:00 Tpn Per Pharmacy EBONY 03/27/25 In Process 22:00 Meropenem 500mg PHA 03/27/25 In Process Premix (Merrem 14:15 Norepinephrine 8 PHA 03/28/25 Logged Mg/250ml Kit 09:15 Date of Service: Mar 27, 2025 Billing Provider: GONZALO ASKEW NP Common Visit Codes: [id number] CARE 30-74 MIN GONZALO ASKEW NP Mar 28, 2025 09:23
--- NOTE | 2025-03-28 17:41 | DVHPN2 ---
Progress Note - Dictate Date Seen: Mar 28, 2025 Has the PT tested + for MRSA If YES, has PT been informed?: No Medical Necessity Reason Pt with a Central, PICC or Fol: Yes The following are medically ne: Tijer[place] Catheter Reason for tijerina catheter: Strict I&O Subjective continues to be oliguric vital signs Vital Sign Date Time Temp Pulse Resp B/P (MAP) Pulse Ox O2 Delivery O2 Flow Rate FiO2 03/28/25 16:41 88/38 03/28/25 16:09 19 96 Nasal Cannula* 2 28 03/28/25 16:00 98.0 83 98.0 Total Intake and Output 03/27/25 03/27/25 03/28/25 15:00 23:00 07:00 Intake Total 665.468 ml 792.22 ml 1015.32 ml Output Total 125 ml 175 ml Balance 665.468 ml 667.22 ml 840.32 ml medications Current Medications Medications Dose Ordered Sig/Sravan Route Start Time Stop Time Status Last Admin Dose Admin Acetaminophen/ Hydrocodone Bitart 1 tab Q4HP PRN PO 03/20/25 12:15 03/25/25 21:24 1 TAB Ondansetron HCl 4 mg Q4HP PRN IV 03/20/25 12:15 03/26/25 08:18 4 MG Docusate Sodium 100 mg BIDPRN PRN PO 03/20/25 12:15 Acetaminophen 650 mg Q6HP PRN PO 03/20/25 12:15 03/28/25 10:59 650 MG Nitroglycerin 0.4 mg Q5MINP PRN SL 03/20/25 12:15 03/25/25 09:26 0.4 MG Morphine Sulfate 2 mg Q30M PRN IV 03/20/25 12:15 03/25/25 09:43 2 MG Allopurinol 100 mg DAILY PO 03/21/25 10:00 03/28/25 09:41 100 MG Apixaban 2.5 mg BID PO 03/20/25 22:00 03/28/25 09:41 2.5 MG Cilostazol 100 mg BID PO 03/20/25 22:00 03/28/25 10:16 100 MG Patient Own Medication 1 tab DAILY PO 03/21/25 10:00 UNV Patient Own Medication 1 tab DAILY PO 03/21/25 10:00 UNV Gabapentin 300 mg DAILY PO 03/21/25 10:00 03/28/25 09:42 300 MG Levothyroxine Sodium 112 mcg DAILY PO 03/21/25 10:00 03/28/25 09:41 112 MCG Levothyroxine Sodium 25 mcg DAILY PO 03/21/25 10:00 03/28/25 09:41 25 MCG Diphenhydramine HCl 50 mg [id number] PRN PO 03/21/25 16:45 03/21/25 22:57 50 MG Albuterol 2.5 mg Q6HR NEB 03/21/25 18:00 03/28/25 12:29 2.5 MG Ipratropium [place] 0.5 mg Q6HWA NEB 03/21/25 18:00 03/28/25 12:29 0.5 MG Patient Own Medication 1 tab BID PO 03/21/25 22:00 03/28/25 10:04 1 TAB Throat Lozenges 1 liv Q2HP PRN MT 03/23/25 04:00 03/23/25 14:52 1 LIV Furosemide 40 mg DAILY IV 03/25/25 10:00 03/28/25 09:33 40 MG Pantoprazole Sodium 40 mg DAILY IV 03/26/25 10:00 03/28/25 09:33 40 MG Sodium Chloride 1,000 ml @ 50 mls/hr Q20H IV 03/26/25 14:15 03/28/25 09:36 50 MLS/HR Magnesium Oxide 400 mg DAILY PO 03/27/25 10:00 03/28/25 09:41 400 MG Ertapenem 0.5 gm DAILY IM 03/27/25 11:15 Cancel Amino Acids 0 ml @ 0 mls/hr PER PHARMACY IV 03/27/25 12:00 Diagnostic Test (Pha) 1 strip Q6HR 03/27/25 18:00 03/28/25 11:34 1 STRIP Insulin Human Regular FOLLOW SLIDING SCALE Q6HR SC 03/27/25 18:00 03/28/25 11:37 2 UNITS Dextrose 50 ml UD IV 03/27/25 12:30 Fat Emulsion Intravenous 100 ml/Sodium Chloride 20 meq/ Potassium Chloride 40 meq/ Calcium Gluconate 2.3 meq/Magnesium Sulfate 12 meq/ Multivitamins 10 ml/Chromium/ Copper/Manganese/ Zinc 1 ml/Amino Acids/Dextrose 943.9462 ml @ 39 mls/hr [id number] IV 03/27/25 22:00 03/28/25 21:59 03/27/25 22:20 39 MLS/HR Norepinephrine Bitartrate 250 ml @ 0.938 mls/ hr Q24H IV 03/28/25 09:15 03/28/25 16:41 15 MLS/HR Fat Emulsion Intravenous 150 ml/Sodium Chloride 40 meq/ Potassium Chloride 45 meq/ Calcium Gluconate 3 meq/Magnesium Sulfate 14 meq/ Multivitamins 10 ml/Chromium/ Copper/Manganese/ Zinc 1 ml/Amino Acids/Dextrose 1,203.4516 ml @ 50 mls/hr Q24H5M IV 03/28/25 22:00 03/29/25 21:59 objective Patient was resting comfortably in no acute distress HEENT: Normocephalic, no JVD Lungs: Bilateral good air entry CVS: S1, S2 regular rate rhythm Abdomen: Soft, bowel sounds present 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 Worsening GFR . continue IV abx Albumin 25% 100 mL q.8 hours x3 doses Start Bumex drip 0.5 milligrams/hour We will follow up on labs in a.m. Dietary Evaluation Review Comments: Renal Specific 60g CCHO-60 Cardiac Diet d/t SCOT over CKD and low GFR Expected Outcomes/Goals: less uremic symptoms, better weight management Plan discussed with: Patient CC Plasma Assessment Blood Product Administration S: [id number] VÍCTOR JUDGE MD Mar 28, 2025 17:41
[2025-03-28] MEDS: ALBUMIN 25% 100 ML IV SCH (18:20)
[2025-03-28] MEDS: POTASSIUM CHL 20MEQ/100ML 100 ML IV ONE (18:44)
[2025-03-28] MEDS: BUMETANIDE INJECTION 12.5 MG in GIVE UN-DILUTED 0 ML IV SCH (19:44)
[2025-03-28] MEDS: TPN PER PHARMACY IV NR (21:47)
--- NOTE | 2025-03-28 23:36 | DVHPN2 ---
Progress Note - Dictate Date Seen: Mar 28, 2025 Has the PT tested + for MRSA If YES, has PT been informed?: No Medical Necessity Reason Pt with a Central, PICC or Fol: Yes The following are medically ne: Tijerina Catheter Reason for tijerina catheter: Strict I&O Subjective Patient seen and examined at bedside. Remains on supplemental oxygen Overnight events reviewed. vital signs Vital Sign Date Time Temp Pulse Resp B/P (MAP) Pulse Ox O2 Delivery O2 Flow Rate FiO2 03/28/25 22:30 81 13 130/43 (72) 97 03/28/25 22:00 Nasal Cannula* 2 28 03/28/25 20:00 97.9 97.9 Total Intake and Output 03/27/25 03/27/25 03/28/25 15:00 23:00 07:00 Intake Total 665.468 ml 792.22 ml 1015.32 ml Output Total 125 ml 175 ml Balance 665.468 ml 667.22 ml 840.32 ml medications Current Medications Medications Dose Ordered Sig/Sravan Route Start Time Stop Time Status Last Admin Dose Admin Acetaminophen/ Hydrocodone Bitart 1 tab Q4HP PRN PO 03/20/25 12:15 03/25/25 21:24 1 TAB Ondansetron HCl 4 mg Q4HP PRN IV 03/20/25 12:15 03/26/25 08:18 4 MG Docusate Sodium 100 mg BIDPRN PRN PO 03/20/25 12:15 Acetaminophen 650 mg Q6HP PRN PO 03/20/25 12:15 03/28/25 10:59 650 MG Nitroglycerin 0.4 mg Q5MINP PRN SL 03/20/25 12:15 03/25/25 09:26 0.4 MG Morphine Sulfate 2 mg Q30M PRN IV 03/20/25 12:15 03/25/25 09:43 2 MG Allopurinol 100 mg DAILY PO 03/21/25 10:00 03/28/25 09:41 100 MG Apixaban 2.5 mg BID PO 03/20/25 22:00 03/28/25 21:43 2.5 MG Cilostazol 100 mg BID PO 03/20/25 22:00 03/28/25 21:43 100 MG Patient Own Medication 1 tab DAILY PO 03/21/25 10:00 UNV Patient Own Medication 1 tab DAILY PO 03/21/25 10:00 UNV Gabapentin 300 mg DAILY PO 03/21/25 10:00 03/28/25 09:42 300 MG Levothyroxine Sodium 112 mcg DAILY PO 03/21/25 10:00 03/28/25 09:41 112 MCG Levothyroxine Sodium 25 mcg DAILY PO 03/21/25 10:00 03/28/25 09:41 25 MCG Diphenhydramine HCl 50 mg [id number] PRN PO 03/21/25 16:45 03/21/25 22:57 50 MG Albuterol 2.5 mg Q6HR NEB 03/21/25 18:00 03/28/25 18:17 2.5 MG Ipratropium [place] 0.5 mg Q6HWA NEB 03/21/25 18:00 03/28/25 18:17 0.5 MG Patient Own Medication 1 tab BID PO 03/21/25 22:00 03/28/25 21:44 1 TAB Throat Lozenges 1 liv Q2HP PRN MT 03/23/25 04:00 03/23/25 14:52 1 LIV Pantoprazole Sodium 40 mg DAILY IV 03/26/25 10:00 03/28/25 09:33 40 MG Magnesium Oxide 400 mg DAILY PO 03/27/25 10:00 03/28/25 09:41 400 MG Ertapenem 0.5 gm DAILY IM 03/27/25 11:15 Cancel Amino Acids 0 ml @ 0 mls/hr PER PHARMACY IV 03/27/25 12:00 Diagnostic Test (Pha) 1 strip Q6HR 03/27/25 18:00 03/28/25 17:45 1 STRIP Insulin Human Regular FOLLOW SLIDING SCALE Q6HR SC 03/27/25 18:00 03/28/25 11:37 2 UNITS Dextrose 50 ml UD IV 03/27/25 12:30 Norepinephrine Bitartrate 250 ml @ 0.938 mls/ hr Q24H IV 03/28/25 09:15 03/28/25 16:41 15 MLS/HR Fat Emulsion Intravenous 150 ml/Sodium Chloride 40 meq/ Potassium Chloride 45 meq/ Calcium Gluconate 3 meq/Magnesium Sulfate 14 meq/ Multivitamins 10 ml/Chromium/ Copper/Manganese/ Zinc 1 ml/Amino Acids/Dextrose 1,203.4516 ml @ 50 mls/hr Q24H5M IV 03/28/25 22:00 03/29/25 21:59 03/28/25 21:47 50 MLS/HR Albumin Human 100 ml @ 100 mls/hr Q8H IV 03/28/25 17:45 03/29/25 10:44 03/28/25 18:20 100 MLS/HR Bumetanide 12.5 mg/Miscellaneous 50 ml @ 2 mls/hr Q24H IV 03/28/25 17:45 03/28/25 19:44 2 MLS/HR objective Gen.: Patient lying in bed in no apparent distress. On supplemental oxygen. Head: Normocephalic, atraumatic. Eyes: EOMI/PERRLA. Ears: Normal hearing. Normal anatomy. Neck/trachea: Trachea midline, supple. Nose: Normal external anatomy. Mouth: Moist mucous membranes. Chest: Decreased air entry bilaterally. No wheezing or rhonchi. Cardiovascular: Positive S1, positive S2. Regular rate and rhythm. Abdomen: Positive bowel sounds in all 4 quadrants. Soft, non-tender, non- distended. : Deferred. Rectal: Deferred. Skin: Warm, dry. Intact. Extremities: 2+ radial pulses bilaterally. No lower extremity edema. Neuro: Awake, alert, oriented x3. No gross motor or sensory deficits. Cranial nerves II through XII intact. Gait not assessed. laboratory and microbiology Laboratory Tests 03/28/25 03:28 Test 03/28/25 03:28 Range/Units Serum Glucose 147 H 74-106 mg/dL Assessment/Plan Impression: Acute kidney injury Acute hypoxic respiratory failure Dependence on supplemental oxygen Chronic obstructive pulmonary disease Pneumonia Left hydronephrosis Septic shock Events: On supplemental oxygen 2 LPM via NC Taper O2 as tolerated On amiodarone drip for AFib On pressors for hemodynamic support Levophed 8 mcg/min Titrate to keep mean arterial pressure greater than 65 mmHg. Improving pressor requirements - taper as tolerated. Head of bed elevation Aspiration precautions Continue antibiotics Monitor WBC - trending down at 15.1 Continue bronchodilators IV fluids Diurese with Bumex 0.5 mg drip Albumin Monitor renal function - BUN 65; Cr of 3.36 Monitor electrolytes. Supplement as necessary. Potassium supplementation Check magnesium level in AM. Nephrology recs appreciated. TPN for nutritional support Pigtail drain placed for aspiration of left hemipelvic abscess (03/26) Cultures from drainage grew ESBL, Enterobacter cloacae. Follow up ID recommendations Monitor hemoglobin - currently 7.6 g/dL Transfuse if less than 7.0 g/dL. Labs and imaging studies reviewed Plan Supplemental oxygen Titrate to keep O2 sats above 92%. Pressors as necessary for hemodynamic support Titrate to keep mean arterial pressure greater than 65 mmHg. Bronchodilators for COPD - stable Continue antibiotics F/u cultures Amiodarone Eliquis Monitor WBC Monitor hemoglobin Monitor renal function Monitor electrolytes. Supplement as necessary. Monitor ins and outs. Maintain euvolemia. F/u with urology/urology and gen sx GI prophylaxis. DVT prophylaxis. Prognosis: Poor given patient's multiple co-morbidities. Condition: Critical Rest of plan per hospitalist and other consultants. A total of 35 minutes of critical care time was spent reviewing the patient record, examining the patient, making a diagnostic and therapeutic plan, discussing this plan with the medical personnel, following up on diagnostic studies and following the patient for clinical stability excluding any and all procedures. At least 50% of this time was spent in direct, [id number] contact. Thank you, Dr. Celis, for allowing me to participate in this patient's care. Further recommendations will depend on the patient's clinical course. Please do not hesitate to contact me if you have any questions or concerns. This medical document was created using an electronic medical record system with [employer] dictation system. Although these documentations are being carefully reviewed, there may still be some phonetic and typographical changes. The errors are purely typographical, due to imperfection on the software program, and do not reflect any compromise in the patient's medical care. Dietary Evaluation Review Comments: Renal Specific 60g CCHO-60 Cardiac Diet d/t SCOT over CKD and low GFR Expected Outcomes/Goals: less uremic symptoms, better weight management Plan discussed with: Other (BOSTON Galdamez) Critical Care Time(min): 35 CC Plasma Assessment Blood Product Administration S: [id number] PALOMO ROBLES MD Mar 28, 2025 23:36
[2025-03-29] VITALS (105 sets, daily range): BP systolic 91–145; BP diastolic 39–89; PULSE 81–106; RESP 10–23; TEMP 97–98.1; O2SAT 87–100
[2025-03-29 04:03] LABS: Hematocrit 23.1 % (36.0-46.0); Hemoglobin 7.5 g/dL (12.2-16.2); Mean Corpuscular Hemoglobin 27.6 pg (28.0-32.0); Mean Corpuscular Volume 85.5 fL (80.0-100.0); Nucleated Red Blood Cells % 0.4 %
[2025-03-29 04:12] LABS: Albumin 3.5 g/dL (3.2-4.8); Alkaline Phosphatase 112 U/L (46-116); Anion Gap 12 (5-15); BUN/Creatinine Ratio 20.2 (10.0-20.0); Bilirubin, Total 0.4 mg/dL (0.2-1.0); Carbon Dioxide 24 mmol/L (20-31); Chloride 101 mmol/L (98-107); Magnesium 2.2 mg/dL (1.6-2.6); Potassium 3.7 mmol/L (3.5-5.1); Sodium 137 mmol/L (136-145); Total Protein 6.2 g/dL (5.7-8.2)
[2025-03-29 04:26] LABS: Alanine Aminotransferase 88 U/L (7-40); Blood Urea Nitrogen 72 mg/dL (9-23); Calcium 8.5 mg/dL (8.7-10.4); Glucose 129 mg/dL (74-106)
--- NOTE | 2025-03-29 08:03 | DVHPN2 ---
Progress Note - Dictate Date Seen: Mar 29, 2025 Has the PT tested + for MRSA If YES, has PT been informed?: No Medical Necessity Reason Pt with a Central, PICC or Fol: Yes The following are medically ne: Tijerina Catheter Reason for tijerina catheter: Strict I&O vital signs Vital Sign Date Time Temp Pulse Resp B/P (MAP) Pulse Ox O2 Delivery O2 Flow Rate FiO2 03/29/25 07:15 91 15 127/63 (84) 97 03/29/25 06:50 Nasal Cannula 2.0 03/29/25 06:50 28 03/29/25 04:00 97.9 97.9 Total Intake and Output 03/28/25 03/28/25 03/29/25 15:00 23:00 07:00 Intake Total 832.62 ml 770.28 ml 745.220 ml Output Total 185 ml 310 ml Balance 832.62 ml 585.28 ml 435.220 ml medications Current Medications Medications Dose Ordered Sig/Sravan Route Start Time Stop Time Status Last Admin Dose Admin Acetaminophen/ Hydrocodone Bitart 1 tab Q4HP PRN PO 03/20/25 12:15 03/25/25 21:24 1 TAB Ondansetron HCl 4 mg Q4HP PRN IV 03/20/25 12:15 03/26/25 08:18 4 MG Docusate Sodium 100 mg BIDPRN PRN PO 03/20/25 12:15 Acetaminophen 650 mg Q6HP PRN PO 03/20/25 12:15 03/28/25 10:59 650 MG Nitroglycerin 0.4 mg Q5MINP PRN SL 03/20/25 12:15 03/25/25 09:26 0.4 MG Morphine Sulfate 2 mg Q30M PRN IV 03/20/25 12:15 03/25/25 09:43 2 MG Allopurinol 100 mg DAILY PO 03/21/25 10:00 03/28/25 09:41 100 MG Apixaban 2.5 mg BID PO 03/20/25 22:00 03/28/25 21:43 2.5 MG Cilostazol 100 mg BID PO 03/20/25 22:00 03/28/25 21:43 100 MG Patient Own Medication 1 tab DAILY PO 03/21/25 10:00 UNV Patient Own Medication 1 tab DAILY PO 03/21/25 10:00 UNV Gabapentin 300 mg DAILY PO 03/21/25 10:00 03/28/25 09:42 300 MG Levothyroxine Sodium 112 mcg DAILY PO 03/21/25 10:00 03/28/25 09:41 112 MCG Levothyroxine Sodium 25 mcg DAILY PO 03/21/25 10:00 03/28/25 09:41 25 MCG Diphenhydramine HCl 50 mg [id number] PRN PO 03/21/25 16:45 03/21/25 22:57 50 MG Albuterol 2.5 mg Q6HR NEB 03/21/25 18:00 03/29/25 06:50 2.5 MG Ipratropium [place] 0.5 mg Q6HWA NEB 03/21/25 18:00 03/29/25 06:50 0.5 MG Patient Own Medication 1 tab BID PO 03/21/25 22:00 03/28/25 21:44 1 TAB Throat Lozenges 1 liv Q2HP PRN MT 03/23/25 04:00 03/23/25 14:52 1 LIV Pantoprazole Sodium 40 mg DAILY IV 03/26/25 10:00 03/28/25 09:33 40 MG Magnesium Oxide 400 mg DAILY PO 03/27/25 10:00 03/28/25 09:41 400 MG Ertapenem 0.5 gm DAILY IM 03/27/25 11:15 Cancel Amino Acids 0 ml @ 0 mls/hr PER PHARMACY IV 03/27/25 12:00 Diagnostic Test (Pha) 1 strip Q6HR 03/27/25 18:00 03/29/25 06:21 1 STRIP Insulin Human Regular FOLLOW SLIDING SCALE Q6HR SC 03/27/25 18:00 03/29/25 00:19 2 UNITS Dextrose 50 ml UD IV 03/27/25 12:30 Norepinephrine Bitartrate 250 ml @ 0.938 mls/ hr Q24H IV 03/28/25 09:15 03/28/25 16:41 15 MLS/HR Fat Emulsion Intravenous 150 ml/Sodium Chloride 40 meq/ Potassium Chloride 45 meq/ Calcium Gluconate 3 meq/Magnesium Sulfate 14 meq/ Multivitamins 10 ml/Chromium/ Copper/Manganese/ Zinc 1 ml/Amino Acids/Dextrose 1,203.4516 ml @ 50 mls/hr Q24H5M IV 03/28/25 22:00 03/29/25 21:59 03/28/25 21:47 50 MLS/HR Albumin Human 100 ml @ 100 mls/hr Q8H IV 03/28/25 17:45 03/29/25 10:44 03/29/25 03:05 100 MLS/HR Bumetanide 12.5 mg/Miscellaneous 50 ml @ 2 mls/hr Q24H IV 03/28/25 17:45 03/28/25 19:44 2 MLS/HR laboratory and microbiology Laboratory Tests 03/29/25 03:27 Test 03/29/25 03:27 Range/Units Serum Glucose 129 H 74-106 mg/dL Assessment/Plan Patient is a 74-year-old female who was admitted on March 20, 2025 for abdominal pain/nausea/vomiting. She is admitted to ICU for septic shock. On March 24, 2025, cardiology was involved for cardiac aspects of care. Patient is known to our practice from before and previous admissions. She is known to have significant alcohol abuse (drinks whiskey every day) and also history of pulmonary hypertension/type 2 pulmonary hypertension, diastolic heart failure. Does have poor functional capacity and is bed-bound. Is significantly morbidly obese. Does have baseline history of atrial fibrillation and is on Eliquis as outpatient. Is found to have septic shock and possible pelvic abscess. Is seen by surgery/Urology/pulmonary/GI. Denies chest pains. Denies palpitations. Is noncompliant with medication and followups. While being managed in ICU was found to have atrial fibrillation with RVR. She mentions that she does go to [facility] [employer] regularly. She has had multiple surgeries in the bilateral feet. She also has history of COPD/asthma with chronic respiratory failure (on home oxygen). Morbidly obese. Not in acute distress. No JVD. Mucosa is dry. Mucosa is pink. No JVD. No carotid bruit. Not using accessory muscles of breathing. Scattered rhonchi in the lungs is heard. Cardiac: Irregular, no thrill. Abdomen is obese and soft. There is no gross hepatomegaly, but it is presence can not be ruled out (body habitus, morbidly obese). There is 3+ edema in bilateral lower extremities which extends to abdominal wall. Past medical history includes morbid obesity, atrial fibrillation (on Eliquis as outpatient), COPD/asthma with chronic respiratory failure on home oxygen, morbid obesity, hypertension, hyperlipidemia, chronic lymphedema, Diastolic heart failure with type 2 pulmonary hypertension, rheumatoid arthritis, osteoarthritis, peripheral vascular disease, CKD (stage IV), anemia, alcohol abuse, neuropathy, gout, old history of right and left foot fracture and their management, status post right knee replacement, status post , bed-bound at baseline and functional quadriplegia. Patient drinks whiskey daily. Goes to Nephrology regularly. Reportedly, there has been some concern about going to have fistula creation on preparation for dialysis? Echocardiogram of January 03 2024 (performed in [facility]) revealed ejection fraction of 60%, mild biatrial enlargement, mild MR/TR and right ventricular systolic pressure of 31 mm Hg. Echocardiogram of (performed in [facility]) revealed: EF of 50 to 55%, Dilated right ventricle with normal systolic function. Severe biatrial enlargement. Mild AI, mild to moderate MR, moderate TR and RVSP of 51 mmHg. Ascending Aorta was 3.7 cm. Echocardiogram of November 09, 2024 revealed ejection fraction of 72%, mild right ventricular enlargement, moderate biatrial enlargement, mild to moderate tricuspid regurgitation, mild mitral regurgitation, right ventricular systolic pressure 54 mm Hg Echocardiogram of February 23, 2025 revealed ejection fraction of around 50%, mild concentric left ventricular hypertrophy, right ventricular enlargement with preserved systolic function. Biatrial enlargement, mild aortic insufficiency, [id number] mitral regurgitation and tricuspid regurgitation. IVC was significantly dilated. Right ventricular systolic pressure of of 55 mm Hg WBC: 5.2 - 8.2-12.3 - 8.5 - 11.3 - 13.7 - 21.6 - 16.9 - 15.1 - 12.1 Hemoglobin: 6.7 - 8.6 - 8.1 - 7.6 - 7.9 - 7.7 - 7.8 - 7.8 - 7.6 - 7.5 Platelet: 57 - 73 - 91 - 108 - 159 - 189 - 257 - 322 - 312 - 291 Creatinine: 3.29 - 2.63 - 2.77 - 2.59 - 2.13 - 1.98 - 1.98 - 2.47- 2.98 - 3.36 - 3.56 Potassium: 3.9 - 3.4 - 3.8 - 3.3 - 3.4 - 3.9 - 3.5 - 3.5 - 3.3 - 3.4 - 3.7 Sodium: 124 - 129 - 129 - 131 - 135 - 138 - 138 - 139 - 138 - 137 - 137 AST/ALT: 143/111 - 347/315 - 48/358 - 11/120 - 8/88 Troponin (high sensitive): 32 - 31 - 34 TSH: 0.17 - 0.15 T3: 0.40 (low) T4: 5.7 Free T4: 1.27 Free T3: 1.55 (low) Chest x-ray revealed: IMPRESSION: Cardiomegaly. Repeat chest x-ray revealed: IMPRESSION: 1. Cardiomegaly with increased interstitial prominence suggestive of CHF exacerbation. 2. Pulmonary arterial hypertension. Repeat chest x-ray revealed: IMPRESSION: Cardiomegaly with mild pulmonary congestion. . Repeat chest x-ray revealed: IMPRESSION: Cardiomegaly with pulmonary congestion and edema. Superimposed pneumonia cannot be excluded. Repeat chest x-ray revealed: IMPRESSION: Worsening right lower lung airspace disease. Suggestion of small bilateral pleural effusions. Abdominal ultrasound revealed: IMPRESSION: Small left hydronephrosis Renal scan revealed: IMPRESSION: Bilateral renal obstruction is present which is not response to Lasix administration suggesting that the kidney may be minimally functional. Abdomen and pelvic CT scan revealed: IMPRESSION: Moderate left hydroureteronephrosis. Suggestion of possible small abscess formation in the left hemipelvis associated with the sigmoid colon measuring 5.7 cm. This may represent site of ureteral obstruction. Clinical correlation advised. Examination is limited secondary to lack of intravenous and oral contrast administration. Abdomen and pelvis CT revealed: IMPRESSION: Sigmoid colonic diverticulitis with an adjacent 6 cm fluid collection with gas, could be an abscess. Probable fistula of the sigmoid to the fluid collection, and possibly with the urinary bladder, which is decompressed with a Tijerina. Possible trace left hydronephrosis with perinephric fat stranding. CT guided abscess drainage: IMPRESSION: CT guided placement of 8 urdu pigtail drain into a left hemipelvic abscess with 30 mL purulent fluid aspirated. PLAN: Routine tube care. Renal ultrasound revealed: IMPRESSION: Unremarkable renal ultrasound without hydronephrosis seen. EKG revealed atrial fibrillation with RVR Tele reveals atrial fibrillation with RVR Echocardiogram revealed: Left ventricle: Mild concentric left ventricular hypertrophy was seen. LVEF was around 50%. Right ventricle was mildly dilated with reduced systolic function. Both atria were dilated. Aortic valve was not well visualized. There was no aortic insufficiency/stenosis. There was mild mitral regurgitation. There was [id number] tricuspid regurgitation. Pulmonary valve was not well visualized. Right ventricular systolic pressure was assessed at 50 mm Hg. IVC was dilated. There was no pericardial effusion. Patient is a 74-year-old female with known history of diastolic heart failure with type 2 pulmonary hypertension who presented with abdominal pain. He is admitted to ICU with septic shock. Did have thrombocytopenia which slowly improved. Was significantly anemic and was transfused PRBC. There has been question about pelvic abscess and the patient is on antibiotics. Patient is being followed by surgery/Urology/pulmonary/GI. It is of note that the patient does have history of significant alcohol abuse (drinks good amount of whiskey daily) which could contribute to to some component of the clinical picture. Does have baseline history of pulmonary hypertension. Usually is on some amount of diuretic (Bumex) as outpatient. Clinically, the patient does have dry mucosa and maybe behind fluids at the time of evaluation. Does have baseline poor functional capacity. Does have history of recent sepsis. s/p CT guided abscess drainage. Seen by Nephrology. Diuretics are on hold. TFT are in favor of subclinical thyroid problem. Significant anemia, status post PRBC transfusion Thrombocytopenia, resolved Septic shock SCOT on CKD Hydronephrosis Pelvic abscess Transaminitis Acute on chronic diastolic heart failure Pulmonary Hypertension, type 2 Alcohol abuse Morbid obesity Poor functional capacity Bed-bound at baseline Atrial fibrillation with RVR Hyperlipidemia Osteoarthritis Rheumatoid arthritis Peripheral vascular disease Abdominal abscess? s/p CT guided abscess drainage Cardiac suggestion for management: Manage in ICU Follow-up electrolytes and kidney function tests and correct abnormalities Full anticoagulation (on Eliquis presently), long-term Nephrology follow up (suggested for bumex drip) IV amiodarone Start oral amiodarone Pressor support at this point to keep mean arterial pressure above 65 Evaluation and management of sepsis/infection as per primary team Evaluation and management of alcohol abuse/prevention of withdrawal as per primary team Evaluation and management of pelvic abscess/hydronephrosis as per primary team/surgery/Urology Further evaluation and management depends on the above and clinical course A total of 75 minutes was spent reviewing the patient record, examining the patient, making a diagnostic and therapeutic plan, discussing this plan with medical personnel, following up on diagnostic studies and following the patient for clinical stability excluding any and all procedures. At least 50% of this time was spent in direct, [id number] contact. Thank you for allowing me to participate in this patient's care. Further recommendations will depend on patient's clinical course. Please do not hesitate to contact me if you have any questions or concerns. This medical document was created using electronic medical record system with [employer] computerized dictation system. Although this document has been carefully reviewed, there may still be some phonetic and typographical errors. These areas are purely typographical due to the imperfection of the software programs, and do not reflect any compromise in the patient's medical care. Dietary Evaluation Review Comments: Renal Specific 60g CCHO-60 Cardiac Diet d/t SCOT over CKD and low GFR Expected Outcomes/Goals: less uremic symptoms, better weight management Plan discussed with: Patient, Other (nurse) CC Plasma Assessment Blood Product Administration S: [id number] AUSTIN ROMERO MD Mar 29, 2025 08:03
--- NOTE | 2025-03-29 08:37 | DVHPN2 ---
Subjective Patient continues to have pain to left lower quadrant where IR drain was placed. Reviewed: Care Plan, H&P, Labs, Medications, Previous Orders, Radiology Changes from previous H/P or p: No Changes General: Per HPI Eyes: No Pain, No Vision change, No Conjunctivae inflammation, No Eyelid inflammation, No Other, No Redness ENT: No Ear pain, No Ear discharge, No Nose pain, No Nose discharge, No Nose congestion, No Mouth pain, No Mouth swelling, No Throat pain, No Throat swelling, No Other Cardiovascular: No Chest Pain, No Palpitations, No Orthopnea, No Paroxysmal Noc. Dyspnea, No Edema, No Lt Headedness, No Other Respiratory: No Cough, No Dry, No Shortness of breath, No SOB with excertion, No Wheezing, No Hemoptysis, No Pleuritic Pain, No Sputum, No Other Gastrointestinal: Nausea, Vomiting, Abdominal Pain; No Diarrhea, No Constipation, No Melena, No Hematochezia, No Other Genitourinary: No Dysuria, No Frequency, No Incontinence, No Hematuria, No Retention, No Other Musculoskeletal: No other, No neck pain, No shoulder pain, No arm pain, No back pain, No hand pain, No leg pain, No foot pain Skin: No Rash, No Lesions, No Jaundice, No Bruising, No Other Objective Vitals Vital Signs Date Time Temp Pulse Resp B/P (MAP) Pulse Ox O2 Delivery O2 Flow Rate FiO2 03/29/25 07:15 91 15 127/63 (84) 97 03/29/25 06:50 Nasal Cannula 2.0 03/29/25 06:50 28 03/29/25 04:00 97.9 97.9 Intake/Output Intake and Output 03/29/25 07:00 Intake Total 2348.120 ml Output Total 495 ml Balance 1853.120 ml IV Total 2348.120 ml Output Urine Total 475 ml Drainage Total 20 ml General Appearance: Alert, Oriented X3, Cooperative, Other (Morbid obesity) HEENT: Atraumatic, PERRLA Cardiovascular: Normal S1, Normal S2, Other (Atrial fibrillation with controlled rate) Abdomen: Normal bowel sounds, Other (Drain with minimal pustulant drainage to quadrant.) Extremities: No edema, Normal pulses Neuro: Sensation intact, Cranial nerves 3-12 NL Skin: Dry, Intact Psych/Mental Status: Mental status NL, Mood NL Medications Current Medications Medications Dose Ordered Sig/Sravan Route Start Time Stop Time Status Last Admin Dose Admin Acetaminophen/ Hydrocodone Bitart 1 tab Q4HP PRN PO 03/20/25 12:15 03/25/25 21:24 1 TAB Ondansetron HCl 4 mg Q4HP PRN IV 03/20/25 12:15 03/26/25 08:18 4 MG Docusate Sodium 100 mg BIDPRN PRN PO 03/20/25 12:15 Acetaminophen 650 mg Q6HP PRN PO 03/20/25 12:15 03/28/25 10:59 650 MG Nitroglycerin 0.4 mg Q5MINP PRN SL 03/20/25 12:15 03/25/25 09:26 0.4 MG Morphine Sulfate 2 mg Q30M PRN IV 03/20/25 12:15 03/25/25 09:43 2 MG Allopurinol 100 mg DAILY PO 03/21/25 10:00 03/28/25 09:41 100 MG Apixaban 2.5 mg BID PO 03/20/25 22:00 03/28/25 21:43 2.5 MG Cilostazol 100 mg BID PO 03/20/25 22:00 03/28/25 21:43 100 MG Patient Own Medication 1 tab DAILY PO 03/21/25 10:00 UNV Patient Own Medication 1 tab DAILY PO 03/21/25 10:00 UNV Gabapentin 300 mg DAILY PO 03/21/25 10:00 03/28/25 09:42 300 MG Levothyroxine Sodium 112 mcg DAILY PO 03/21/25 10:00 03/28/25 09:41 112 MCG Levothyroxine Sodium 25 mcg DAILY PO 03/21/25 10:00 03/28/25 09:41 25 MCG Diphenhydramine HCl 50 mg [id number] PRN PO 03/21/25 16:45 03/21/25 22:57 50 MG Albuterol 2.5 mg Q6HR NEB 03/21/25 18:00 03/29/25 06:50 2.5 MG Ipratropium [place] 0.5 mg Q6HWA NEB 03/21/25 18:00 03/29/25 06:50 0.5 MG Patient Own Medication 1 tab BID PO 03/21/25 22:00 03/28/25 21:44 1 TAB Throat Lozenges 1 liv Q2HP PRN MT 03/23/25 04:00 03/23/25 14:52 1 LIV Pantoprazole Sodium 40 mg DAILY IV 03/26/25 10:00 03/28/25 09:33 40 MG Magnesium Oxide 400 mg DAILY PO 03/27/25 10:00 03/28/25 09:41 400 MG Ertapenem 0.5 gm DAILY IM 03/27/25 11:15 Cancel Amino Acids 0 ml @ 0 mls/hr PER PHARMACY IV 03/27/25 12:00 Diagnostic Test (Pha) 1 strip Q6HR 03/27/25 18:00 03/29/25 06:21 1 STRIP Insulin Human Regular FOLLOW SLIDING SCALE Q6HR SC 03/27/25 18:00 03/29/25 00:19 2 UNITS Dextrose 50 ml UD IV 03/27/25 12:30 Norepinephrine Bitartrate 250 ml @ 0.938 mls/ hr Q24H IV 03/28/25 09:15 03/28/25 16:41 15 MLS/HR Fat Emulsion Intravenous 150 ml/Sodium Chloride 40 meq/ Potassium Chloride 45 meq/ Calcium Gluconate 3 meq/Magnesium Sulfate 14 meq/ Multivitamins 10 ml/Chromium/ Copper/Manganese/ Zinc 1 ml/Amino Acids/Dextrose 1,203.4516 ml @ 50 mls/hr Q24H5M IV 03/28/25 22:00 03/29/25 21:59 03/28/25 21:47 50 MLS/HR Albumin Human 100 ml @ 100 mls/hr Q8H IV 03/28/25 17:45 03/29/25 10:44 03/29/25 03:05 100 MLS/HR Bumetanide 12.5 mg/Miscellaneous 50 ml @ 2 mls/hr Q24H IV 03/28/25 17:45 03/28/25 19:44 2 MLS/HR Laboratory Results Laboratory Tests 03/29/25 03:27 Chemistry Test 03/29/25 03:27 Albumin 3.5 g/dL (3.2-4.8) Calcium Level 8.5 mg/dL (8.7-10.4) L Magnesium Level 2.2 mg/dL (1.6-2.6) Phosphorus Level 3.8 mg/dL (2.4-5.1) Total Protein 6.2 g/dL (5.7-8.2) LFT Test 03/29/25 03:27 Alanine Aminotransferase (ALT) 88 U/L (7-40) H Alkaline Phosphatase 112 U/L (46-116) Aspartate Amino Transferase (AST) 8 U/L (13-40) L Total Bilirubin 0.4 mg/dL (0.2-1.0) Urinalysis Test 03/20/25 09:34 Urine Color Colorless (Yellow) Urine Clarity Turbid (Clear) H Urine pH 5.0 (5.0-9.0) Urine Specific [place] 1.015 (1.001-1.035) Urine Protein Negative (Negative) Urine Ketones Negative (Negative) Urine Blood Negative /uL (Negative) Urine Nitrite Negative (Negative) Urine Bilirubin Negative (Negative) Urine Urobilinogen Normal mg/dL (Negative) Urine Leukocyte Esterase 3+ /uL (Negative) Urine RBC 1 /hpf (0 - 4) Urine Microscopic WBC 255 /HPF (0-5) H Urine Squamous Epithelial Cells Few /hpf (<5) Urine Bacteria Few /hpf (None Seen) H Urine Glucose Normal mg/dL (Normal) Microbiology Microbiology Date/Time Source Procedure Growth Status 03/26/25 15:00 Aspirate Gram Stain - Final Resulted 03/26/25 15:00 Body Fluid Culture - Preliminary Escherichia coli - ESBL Enterobacter cloacae Resulted 03/23/25 04:30 Throat Nose/Throat Culture - Final Complete 03/21/25 18:00 Urine - Catheterized Urine Culture - Final Escherichia coli - ESBL Klebsiella pneumoniae - ESBL Complete 03/20/25 21:52 Nose MRSA Screen - Final Complete Labs and/or images reviewed: Labs reviewed by me, Image(s) reviewed by me Assessment/Plan Assessment/Plan Impression: -septic shock -diverticular abscess -AFib with RVR -morbid obesity -obstructive uropathy -CKD stage 4 -acute kidney injury, vasomotor nephropathy -acute on chronic systolic and diastolic heart failure -bed-bound status -complicated cystitis with ESBL in the urine. Plan: Events: Worsening renal function. Discussed with Dr. Warner, , Nephrology yesterday. Patient's white blood cell count improving. Plans for repeat CT scan once white blood cell count normalizes, and shock improves. -switch antibiotic therapy to Meropenem -continue rate control with IV amiodarone. Switch to p.o. per Cardiology -status post IR drain placement diverticular abscess. -repeat renal ultrasound reveals that hydronephrosis has resolved. Further course of care per Urology -surgical consultation: Recommendations reviewed -continue anticoagulation with Eliquis -continue NPO except for medications -repeat labs and Chest x ray in a.m. Critical care time spent with patient discussing and formulating plan of care: 40 minutes. This does not include time spent performing procedures. This medical document was created using an electronic medical record system with [employer] dictation system. Although this document has been carefully reviewed, there may still be some phonetic and typographical errors. These areas are purely typographical due to imperfections of the software programs, and do not reflect any compromise in the patient's medical care. Plan discussed with: Patient, Other (RN) My Orders Orders - GONZALO ASKEW NP Procedure Category Date Status Time Norepinephrine 8 PHA 03/28/25 In Process Mg/250ml Kit 09:15 Amino Acid PHA 03/28/25 In Process Infusion... W/Fat 22:00 Tpn Per Pharmacy EBONY 03/28/25 In Process 22:00 Date of Service: Mar 29, 2025 Billing Provider: GONZALO ASKEW NP Common Visit Codes: 97750-MZV/OBS DISCH DAY >30min GONZALO ASKEW NP Mar 29, 2025 08:36
[2025-03-29] MEDS: AMIODARONE HCL 200 MG TAB PO SCH (10:15)
--- NOTE | 2025-03-29 17:40 | DVHPN2 ---
Progress Note - Dictate Date Seen: Mar 29, 2025 Has the PT tested + for MRSA If YES, has PT been informed?: No Medical Necessity Reason Pt with a Central, PICC or Fol: Yes The following are medically ne: Tijerina Catheter Reason for tijerina catheter: Strict I&O Subjective Urine output has marginally improved with Bumex drip. vital signs Vital Sign Date Time Temp Pulse Resp B/P (MAP) Pulse Ox O2 Delivery O2 Flow Rate FiO2 03/29/25 16:30 87 13 115/60 (78) 100 03/29/25 16:00 97.6 97.6 03/29/25 16:00 Nasal Cannula* 2 28 Total Intake and Output 03/28/25 03/28/25 03/29/25 15:00 23:00 07:00 Intake Total 832.62 ml 770.28 ml 745.220 ml Output Total 185 ml 310 ml Balance 832.62 ml 585.28 ml 435.220 ml medications Current Medications Medications Dose Ordered Sig/Sravan Route Start Time Stop Time Status Last Admin Dose Admin Acetaminophen/ Hydrocodone Bitart 1 tab Q4HP PRN PO 03/20/25 12:15 03/29/25 12:27 1 TAB Ondansetron HCl 4 mg Q4HP PRN IV 03/20/25 12:15 03/26/25 08:18 4 MG Docusate Sodium 100 mg BIDPRN PRN PO 03/20/25 12:15 Acetaminophen 650 mg Q6HP PRN PO 03/20/25 12:15 03/28/25 10:59 650 MG Nitroglycerin 0.4 mg Q5MINP PRN SL 03/20/25 12:15 03/25/25 09:26 0.4 MG Morphine Sulfate 2 mg Q30M PRN IV 03/20/25 12:15 03/25/25 09:43 2 MG Allopurinol 100 mg DAILY PO 03/21/25 10:00 03/29/25 10:14 100 MG Apixaban 2.5 mg BID PO 03/20/25 22:00 03/29/25 10:14 2.5 MG Cilostazol 100 mg BID PO 03/20/25 22:00 03/29/25 10:14 100 MG Patient Own Medication 1 tab DAILY PO 03/21/25 10:00 UNV Patient Own Medication 1 tab DAILY PO 03/21/25 10:00 UNV Gabapentin 300 mg DAILY PO 03/21/25 10:00 03/29/25 10:14 300 MG Levothyroxine Sodium 112 mcg DAILY PO 03/21/25 10:00 03/29/25 10:14 112 MCG Levothyroxine Sodium 25 mcg DAILY PO 03/21/25 10:00 03/29/25 10:14 25 MCG Diphenhydramine HCl 50 mg [id number] PRN PO 03/21/25 16:45 03/21/25 22:57 50 MG Albuterol 2.5 mg Q6HR NEB 03/21/25 18:00 03/29/25 11:40 2.5 MG Ipratropium [place] 0.5 mg Q6HWA NEB 03/21/25 18:00 03/29/25 11:40 0.5 MG Patient Own Medication 1 tab BID PO 03/21/25 22:00 03/29/25 10:16 1 TAB Throat Lozenges 1 liv Q2HP PRN MT 03/23/25 04:00 03/23/25 14:52 1 LIV Pantoprazole Sodium 40 mg DAILY IV 03/26/25 10:00 03/29/25 10:12 40 MG Magnesium Oxide 400 mg DAILY PO 03/27/25 10:00 03/29/25 10:14 400 MG Ertapenem 0.5 gm DAILY IM 03/27/25 11:15 Cancel Amino Acids 0 ml @ 0 mls/hr PER PHARMACY IV 03/27/25 12:00 Diagnostic Test (Pha) 1 strip Q6HR 03/27/25 18:00 03/29/25 12:26 1 STRIP Insulin Human Regular FOLLOW SLIDING SCALE Q6HR SC 03/27/25 18:00 03/29/25 00:19 2 UNITS Dextrose 50 ml UD IV 03/27/25 12:30 Norepinephrine Bitartrate 250 ml @ 0.938 mls/ hr Q24H IV 03/28/25 09:15 03/29/25 10:13 12.188 MLS/HR Fat Emulsion Intravenous 150 ml/Sodium Chloride 40 meq/ Potassium Chloride 45 meq/ Calcium Gluconate 3 meq/Magnesium Sulfate 14 meq/ Multivitamins 10 ml/Chromium/ Copper/Manganese/ Zinc 1 ml/Amino Acids/Dextrose 1,203.4516 ml @ 50 mls/hr Q24H5M IV 03/28/25 22:00 03/29/25 21:59 03/28/25 21:47 50 MLS/HR Bumetanide 12.5 mg/Miscellaneous 50 ml @ 2 mls/hr Q24H IV 03/28/25 17:45 03/29/25 12:33 2 MLS/HR Amiodarone HCl 200 mg Q12HR PO 03/29/25 10:00 03/29/25 10:15 200 MG Fat Emulsion Intravenous 200 ml/Sodium Chloride 40 meq/ Potassium Chloride 40 meq/ Sodium Acetate 20 meq/Calcium Gluconate 2.3 meq/ Magnesium Sulfate 14 meq/ Multivitamins 10 ml/Chromium/ Copper/Manganese/ Zinc 1 ml/Amino Acids/Dextrose 1,359.4462 ml @ 57 mls/hr [id number] IV 03/29/25 22:00 03/30/25 21:59 objective Patient was resting comfortably in no acute distress HEENT: Normocephalic, no JVD Lungs: Bilateral good air entry CVS: S1, S2 regular rate rhythm Abdomen: Soft, bowel sounds present BIOMATHEMATICIAN: No focal deficits Extremities: Edema present laboratory and microbiology Laboratory Tests 03/29/25 03:27 Test 03/29/25 03:27 Range/Units Serum Glucose 129 H 74-106 mg/dL Problem List Acute kidney injury superimposed on CKD 4 Sepsis with a urine culture growing E coli and Klebsiella both of which are ESBL . Wound culture with E coli ESBL Septic shock Status post drainage of left pelvic abscess Left hydronephrosis which has a resolved Acute on chronic diastolic heart failure Anemia status post transfusion of PRBC Pulmonary hypertension Atrial fibrillation Bed-bound patient Assessment/Plan continue with pressor support . Worsening GFR . continue IV abx Continue Bumex drip 0.5 milligrams/hour We will follow up on labs in a.m. Dietary Evaluation Review Comments: Renal Specific 60g CCHO-60 Cardiac Diet d/t SCOT over CKD and low GFR Expected Outcomes/Goals: less uremic symptoms, better weight management Plan discussed with: Patient CC Plasma Assessment Blood Product Administration S: [id number] VÍCTOR JUDGE MD Mar 29, 2025 17:40
[2025-03-29] MEDS: TPN PER PHARMACY IV NR (21:42)
--- NOTE | 2025-03-29 21:56 | DVHPN2 ---
Progress Note - Dictate Date Seen: Mar 29, 2025 Has the PT tested + for MRSA If YES, has PT been informed?: No Medical Necessity Reason Pt with a Central, PICC or Fol: Yes The following are medically ne: Tijerina Catheter Reason for tijerina catheter: Strict I&O Subjective Patient seen and examined at bedside. Remains on supplemental oxygen Overnight events reviewed. vital signs Vital Sign Date Time Temp Pulse Resp B/P (MAP) Pulse Ox O2 Delivery O2 Flow Rate FiO2 03/29/25 21:00 91 11 106/49 (68) 96 03/29/25 20:01 97.7 97.7 03/29/25 20:00 Nasal Cannula* 2 28 Total Intake and Output 03/28/25 03/28/25 03/29/25 15:00 23:00 07:00 Intake Total 832.62 ml 770.28 ml 745.220 ml Output Total 185 ml 310 ml Balance 832.62 ml 585.28 ml 435.220 ml medications Current Medications Medications Dose Ordered Sig/Sravan Route Start Time Stop Time Status Last Admin Dose Admin Acetaminophen/ Hydrocodone Bitart 1 tab Q4HP PRN PO 03/20/25 12:15 03/29/25 12:27 1 TAB Ondansetron HCl 4 mg Q4HP PRN IV 03/20/25 12:15 03/26/25 08:18 4 MG Docusate Sodium 100 mg BIDPRN PRN PO 03/20/25 12:15 Acetaminophen 650 mg Q6HP PRN PO 03/20/25 12:15 03/28/25 10:59 650 MG Nitroglycerin 0.4 mg Q5MINP PRN SL 03/20/25 12:15 03/25/25 09:26 0.4 MG Morphine Sulfate 2 mg Q30M PRN IV 03/20/25 12:15 03/25/25 09:43 2 MG Allopurinol 100 mg DAILY PO 03/21/25 10:00 03/29/25 10:14 100 MG Apixaban 2.5 mg BID PO 03/20/25 22:00 03/29/25 21:37 2.5 MG Cilostazol 100 mg BID PO 03/20/25 22:00 03/29/25 21:37 100 MG Patient Own Medication 1 tab DAILY PO 03/21/25 10:00 UNV Patient Own Medication 1 tab DAILY PO 03/21/25 10:00 UNV Gabapentin 300 mg DAILY PO 03/21/25 10:00 03/29/25 10:14 300 MG Levothyroxine Sodium 112 mcg DAILY PO 03/21/25 10:00 03/29/25 10:14 112 MCG Levothyroxine Sodium 25 mcg DAILY PO 03/21/25 10:00 03/29/25 10:14 25 MCG Diphenhydramine HCl 50 mg [id number] PRN PO 03/21/25 16:45 03/21/25 22:57 50 MG Albuterol 2.5 mg Q6HR NEB 03/21/25 18:00 03/29/25 18:40 2.5 MG Ipratropium [place] 0.5 mg Q6HWA NEB 03/21/25 18:00 03/29/25 18:40 0.5 MG Patient Own Medication 1 tab BID PO 03/21/25 22:00 03/29/25 21:38 1 TAB Throat Lozenges 1 liv Q2HP PRN MT 03/23/25 04:00 03/23/25 14:52 1 LIV Pantoprazole Sodium 40 mg DAILY IV 03/26/25 10:00 03/29/25 10:12 40 MG Magnesium Oxide 400 mg DAILY PO 03/27/25 10:00 03/29/25 10:14 400 MG Ertapenem 0.5 gm DAILY IM 03/27/25 11:15 Cancel Amino Acids 0 ml @ 0 mls/hr PER PHARMACY IV 03/27/25 12:00 Diagnostic Test (Pha) 1 strip Q6HR 03/27/25 18:00 03/29/25 18:06 1 STRIP Insulin Human Regular FOLLOW SLIDING SCALE Q6HR SC 03/27/25 18:00 03/29/25 18:07 2 UNITS Dextrose 50 ml UD IV 03/27/25 12:30 Norepinephrine Bitartrate 250 ml @ 0.938 mls/ hr Q24H IV 03/28/25 09:15 03/29/25 10:13 12.188 MLS/HR Fat Emulsion Intravenous 150 ml/Sodium Chloride 40 meq/ Potassium Chloride 45 meq/ Calcium Gluconate 3 meq/Magnesium Sulfate 14 meq/ Multivitamins 10 ml/Chromium/ Copper/Manganese/ Zinc 1 ml/Amino Acids/Dextrose 1,203.4516 ml @ 50 mls/hr Q24H5M IV 03/28/25 22:00 03/29/25 21:59 03/28/25 21:47 50 MLS/HR Bumetanide 12.5 mg/Miscellaneous 50 ml @ 2 mls/hr Q24H IV 03/28/25 17:45 03/29/25 12:33 2 MLS/HR Amiodarone HCl 200 mg Q12HR PO 03/29/25 10:00 03/29/25 21:38 200 MG Fat Emulsion Intravenous 200 ml/Sodium Chloride 40 meq/ Potassium Chloride 40 meq/ Sodium Acetate 20 meq/Calcium Gluconate 2.3 meq/ Magnesium Sulfate 14 meq/ Multivitamins 10 ml/Chromium/ Copper/Manganese/ Zinc 1 ml/Amino Acids/Dextrose 1,359.4462 ml @ 57 mls/hr [id number] IV 03/29/25 22:00 03/30/25 21:59 03/29/25 21:42 57 MLS/HR objective Gen.: Patient lying in bed in no apparent distress. On supplemental oxygen. Head: Normocephalic, atraumatic. Eyes: EOMI/PERRLA. Ears: Normal hearing. Normal anatomy. Neck/trachea: Trachea midline, supple. Nose: Normal external anatomy. Mouth: Moist mucous membranes. Chest: Decreased air entry bilaterally. No wheezing or rhonchi. Cardiovascular: Positive S1, positive S2. Regular rate and rhythm. Abdomen: Positive bowel sounds in all 4 quadrants. Soft, non-tender, non- distended. : Deferred. Rectal: Deferred. Skin: Warm, dry. Intact. Extremities: 2+ radial pulses bilaterally. No lower extremity edema. Neuro: Awake, alert, oriented x3. No gross motor or sensory deficits. Cranial nerves II through XII intact. Gait not assessed. laboratory and microbiology Laboratory Tests 03/29/25 03:27 Test 03/29/25 03:27 Range/Units Serum Glucose 129 H 74-106 mg/dL Assessment/Plan Impression: Acute kidney injury Acute hypoxic respiratory failure Dependence on supplemental oxygen Chronic obstructive pulmonary disease Pneumonia Left hydronephrosis Septic shock Events: On supplemental oxygen 2 LPM via NC Taper O2 as tolerated AFib - Amiodarone drip transitioned to PO amiodarone On pressors for hemodynamic support Levophed 6 mcg/min Titrate to keep mean arterial pressure greater than 65 mmHg. Improving pressor requirements - taper as tolerated. Head of bed elevation Aspiration precautions Continue antibiotics Monitor WBC - trending down at 12 K Continue bronchodilators Incentive spirometry IV fluids Diurese with Bumex 0.5 mg drip Albumin Monitor renal function - BUN 65-->72; Cr of 3.36 -->3.56 Follow up Nephrology recommendations Monitor electrolytes. Supplement as necessary. Potassium, magnesium supplementation NPO TPN for nutritional support Pigtail drain placed for aspiration of left hemipelvic abscess (03/26) Cultures from drainage grew ESBL, Enterobacter cloacae. Follow up ID recommendations Monitor hemoglobin - currently 7.5 g/dL Transfuse if less than 7.0 g/dL. Labs and imaging studies reviewed Plan Supplemental oxygen Titrate to keep O2 sats above 92%. Pressors as necessary for hemodynamic support Titrate to keep mean arterial pressure greater than 65 mmHg. Bronchodilators for COPD - stable Continue antibiotics F/u cultures Amiodarone PO Eliquis Monitor WBC Monitor hemoglobin Monitor renal function Monitor electrolytes. Supplement as necessary. Monitor ins and outs. Maintain euvolemia. F/u with urology/urology and gen sx GI prophylaxis. DVT prophylaxis. Prognosis: Poor given patient's multiple co-morbidities. Condition: Critical Rest of plan per hospitalist and other consultants. A total of 35 minutes of critical care time was spent reviewing the patient record, examining the patient, making a diagnostic and therapeutic plan, discussing this plan with the medical personnel, following up on diagnostic studies and following the patient for clinical stability excluding any and all procedures. At least 50% of this time was spent in direct, [id number] contact. Thank you, Dr. Celis, for allowing me to participate in this patient's care. Further recommendations will depend on the patient's clinical course. Please do not hesitate to contact me if you have any questions or concerns. This medical document was created using an electronic medical record system with [employer] system. Although these documentations are being carefully reviewed, there may still be some phonetic and typographical changes. The errors are purely typographical, due to imperfection on the software program, and do not reflect any compromise in the patient's medical care. Dietary Evaluation Review Comments: Renal Specific 60g CCHO-60 Cardiac Diet d/t SCOT over CKD and low GFR Expected Outcomes/Goals: less uremic symptoms, better weight management Plan discussed with: Patient, Other (RN Maureen) Critical Care Time(min): 35 CC Plasma Assessment Blood Product Administration S: [id number] PALOMO ROBLES MD Mar 29, 2025 21:56
[2025-03-30] VITALS (104 sets, daily range): BP systolic 89–151; BP diastolic 30–71; PULSE 81–105; RESP 9–25; TEMP 97.1–98.1; O2SAT 76–100
[2025-03-30 03:36] LABS: Hemoglobin 7.1 g/dL (12.2-16.2)
[2025-03-30 03:41] LABS: Hematocrit 22.2 % (36.0-46.0); Mean Corpuscular Hemoglobin 27.6 pg (28.0-32.0); Mean Corpuscular Volume 86.3 fL (80.0-100.0); Nucleated Red Blood Cells % 0.3 %
[2025-03-30 03:54] LABS: Alkaline Phosphatase 99 U/L (46-116); Calcium 8.7 mg/dL (8.7-10.4); Carbon Dioxide 23 mmol/L (20-31); Chloride 101 mmol/L (98-107); Potassium 3.8 mmol/L (3.5-5.1)
[2025-03-30 03:55] LABS: Albumin 3.6 g/dL (3.2-4.8); Anion Gap 12 (5-15); BUN/Creatinine Ratio 20.4 (10.0-20.0); Magnesium 2.4 mg/dL (1.6-2.6); Sodium 136 mmol/L (136-145); Total Protein 6.2 g/dL (5.7-8.2)
[2025-03-30 03:56] LABS: Bilirubin, Total 0.4 mg/dL (0.2-1.0)
[2025-03-30 04:07] LABS: Alanine Aminotransferase 64 U/L (7-40); Blood Urea Nitrogen 78 mg/dL (9-23); Glucose 124 mg/dL (74-106)
--- NOTE | 2025-03-30 05:45 | DVH ---
CHEST RADIOGRAPH Indication: pna Technique: Single frontal view of the chest was obtained COMPARISON: XY CHEST PORTABLE on DOS: 03/24/25, XY CHEST PORTABLE on DOS: 03/23/25, XY CHEST PORTABLE o n DOS: 03/22/25, XY CHEST PORTABLE on DOS: 03/21/25, XY CHEST PORTABLE on DOS: 03/20/25 FINDINGS: Lines and Tubes: Right central venous catheter in satisfactory position Lungs: Multifocal airspace disease Pleura: No effusion. No pneumothorax. Cardiomediastinal contours: Cardiomegaly Bones: Unremarkable IMPRESSION: No significant interval change
--- NOTE | 2025-03-30 09:40 | DVHPN2 ---
Progress Note - Dictate Date Seen: Mar 30, 2025 Has the PT tested + for MRSA If YES, has PT been informed?: No Medical Necessity Reason Pt with a Central, PICC or Fol: Yes The following are medically ne: Tijerina Catheter Reason for tijerina catheter: Strict I&O vital signs Vital Sign Date Time Temp Pulse Resp B/P (MAP) Pulse Ox O2 Delivery O2 Flow Rate FiO2 03/30/25 09:00 90 14 108/30 (56) 98 03/30/25 08:00 Nasal Cannula* 2 28 03/30/25 04:00 98.1 98.1 Total Intake and Output 03/29/25 03/29/25 03/30/25 15:00 23:00 07:00 Intake Total 745.844 ml 1148.594 ml 915.381 ml Output Total 325 ml 230 ml Balance 745.844 ml 823.594 ml 685.381 ml medications Current Medications Medications Dose Ordered Sig/Sravan Route Start Time Stop Time Status Last Admin Dose Admin Acetaminophen/ Hydrocodone Bitart 1 tab Q4HP PRN PO 03/20/25 12:15 03/30/25 00:45 1 TAB Ondansetron HCl 4 mg Q4HP PRN IV 03/20/25 12:15 03/26/25 08:18 4 MG Docusate Sodium 100 mg BIDPRN PRN PO 03/20/25 12:15 Acetaminophen 650 mg Q6HP PRN PO 03/20/25 12:15 03/28/25 10:59 650 MG Nitroglycerin 0.4 mg Q5MINP PRN SL 03/20/25 12:15 03/25/25 09:26 0.4 MG Morphine Sulfate 2 mg Q30M PRN IV 03/20/25 12:15 03/25/25 09:43 2 MG Allopurinol 100 mg DAILY PO 03/21/25 10:00 03/29/25 10:14 100 MG Apixaban 2.5 mg BID PO 03/20/25 22:00 03/29/25 21:37 2.5 MG Cilostazol 100 mg BID PO 03/20/25 22:00 03/29/25 21:37 100 MG Patient Own Medication 1 tab DAILY PO 03/21/25 10:00 UNV Patient Own Medication 1 tab DAILY PO 03/21/25 10:00 UNV Gabapentin 300 mg DAILY PO 03/21/25 10:00 03/29/25 10:14 300 MG Levothyroxine Sodium 112 mcg DAILY PO 03/21/25 10:00 03/29/25 10:14 112 MCG Levothyroxine Sodium 25 mcg DAILY PO 03/21/25 10:00 03/29/25 10:14 25 MCG Diphenhydramine HCl 50 mg [id number] PRN PO 03/21/25 16:45 03/21/25 22:57 50 MG Albuterol 2.5 mg Q6HR NEB 03/21/25 18:00 03/30/25 06:03 2.5 MG Ipratropium [place] 0.5 mg Q6HWA NEB 03/21/25 18:00 03/30/25 06:03 0.5 MG Patient Own Medication 1 tab BID PO 03/21/25 22:00 03/29/25 21:38 1 TAB Throat Lozenges 1 liv Q2HP PRN MT 03/23/25 04:00 03/23/25 14:52 1 LIV Pantoprazole Sodium 40 mg DAILY IV 03/26/25 10:00 03/29/25 10:12 40 MG Magnesium Oxide 400 mg DAILY PO 03/27/25 10:00 03/29/25 10:14 400 MG Ertapenem 0.5 gm DAILY IM 03/27/25 11:15 Cancel Amino Acids 0 ml @ 0 mls/hr PER PHARMACY IV 03/27/25 12:00 Diagnostic Test (Pha) 1 strip Q6HR 03/27/25 18:00 03/30/25 05:55 1 STRIP Insulin Human Regular FOLLOW SLIDING SCALE Q6HR SC 03/27/25 18:00 03/30/25 05:57 2 UNITS Dextrose 50 ml UD IV 03/27/25 12:30 Norepinephrine Bitartrate 250 ml @ 0.938 mls/ hr Q24H IV 03/28/25 09:15 03/29/25 10:13 12.188 MLS/HR Bumetanide 12.5 mg/Miscellaneous 50 ml @ 2 mls/hr Q24H IV 03/28/25 17:45 03/29/25 12:33 2 MLS/HR Amiodarone HCl 200 mg Q12HR PO 03/29/25 10:00 03/29/25 21:38 200 MG Fat Emulsion Intravenous 200 ml/Sodium Chloride 40 meq/ Potassium Chloride 40 meq/ Sodium Acetate 20 meq/Calcium Gluconate 2.3 meq/ Magnesium Sulfate 14 meq/ Multivitamins 10 ml/Chromium/ Copper/Manganese/ Zinc 1 ml/Amino Acids/Dextrose 1,359.4462 ml @ 57 mls/hr [id number] IV 03/29/25 22:00 03/30/25 21:59 03/29/25 21:42 57 MLS/HR laboratory and microbiology Laboratory Tests 03/30/25 03:00 Test 03/30/25 03:00 Range/Units Serum Glucose 124 H 74-106 mg/dL Assessment/Plan Patient is a 74-year-old female who was admitted on March 20, 2025 for abdominal pain/nausea/vomiting. She is admitted to ICU for septic shock. On March 24, 2025, cardiology was involved for cardiac aspects of care. Patient is known to our practice from before and previous admissions. She is known to have significant alcohol abuse (drinks whiskey every day) and also history of pulmonary hypertension/type 2 pulmonary hypertension, diastolic heart failure. Does have poor functional capacity and is bed-bound. Is significantly morbidly obese. Does have baseline history of atrial fibrillation and is on Eliquis as outpatient. Is found to have septic shock and possible pelvic abscess. Is seen by surgery/Urology/pulmonary/GI. Denies chest pains. Denies palpitations. Is noncompliant with medication and followups. While being managed in ICU was found to have atrial fibrillation with RVR. 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 She has had multiple surgeries in the bilateral feet. She also has history of COPD/asthma with chronic respiratory failure (on home oxygen). Morbidly obese. Not in acute distress. No JVD. Mucosa is dry. Mucosa is pink. No JVD. No carotid bruit. Not using accessory muscles of breathing. Scattered rhonchi in the lungs is heard. Cardiac: Irregular, no thrill. Abdomen is obese and soft. There is no gross hepatomegaly, but it is presence can not be ruled out (body habitus, morbidly obese). There is 3+ edema in bilateral lower extremities which extends to abdominal wall. Past medical history includes morbid obesity, atrial fibrillation (on Eliquis as outpatient), COPD/asthma with chronic respiratory failure on home oxygen, morbid obesity, hypertension, hyperlipidemia, chronic lymphedema, Diastolic heart failure with type 2 pulmonary hypertension, rheumatoid arthritis, osteoarthritis, peripheral vascular disease, CKD (stage IV), anemia, alcohol abuse, neuropathy, gout, old history of right and left foot fracture and their management, status post right knee replacement, status post , bed-bound at baseline and functional quadriplegia. Patient drinks whiskey daily. Goes to Nephrology regularly. Reportedly, there has been some concern about going to have fistula creation on preparation for dialysis? Echocardiogram of January 03 2024 (performed in [facility]) revealed ejection fraction of 60%, mild biatrial enlargement, mild MR/TR and right ventricular systolic pressure of 31 mm Hg. Echocardiogram of (performed in [facility]) revealed: EF of 50 to 55%, Dilated right ventricle with normal systolic function. Severe biatrial enlargement. Mild AI, mild to moderate MR, moderate TR and RVSP of 51 mmHg. Ascending Aorta was 3.7 cm. Echocardiogram of November 09, 2024 revealed ejection fraction of 72%, mild right ventricular enlargement, moderate biatrial enlargement, mild to moderate tricuspid regurgitation, mild mitral regurgitation, right ventricular systolic pressure 54 mm Hg Echocardiogram of February 23, 2025 revealed ejection fraction of around 50%, mild concentric left ventricular hypertrophy, right ventricular enlargement with preserved systolic function. Biatrial enlargement, mild aortic insufficiency, [id number] mitral regurgitation and tricuspid regurgitation. IVC was significantly dilated. Right ventricular systolic pressure of of 55 mm Hg WBC: 5.2 - 8.2-12.3 - 8.5 - 11.3 - 13.7 - 21.6 - 16.9 - 15.1 - 12.1 - 10.6 Hemoglobin: 6.7 - 8.6 - 8.1 - 7.6 - 7.9 - 7.7 - 7.8 - 7.8 - 7.6 - 7.5 - 7.1 Platelet: 57 - 73 - 91 - 108 - 159 - 189 - 257 - 322 - 312 - 291 - 240 Creatinine: 3.29 - 2.63 - 2.77 - 2.59 - 2.13 - 1.98 - 1.98 - 2.47- 2.98 - 3.36 - 3.56 - 3.83 Potassium: 3.9 - 3.4 - 3.8 - 3.3 - 3.4 - 3.9 - 3.5 - 3.5 - 3.3 - 3.4 - 3.7 - 3.8 Sodium: 124 - 129 - 129 - 131 - 135 - 138 - 138 - 139 - 138 - 137 - 137 - 136 AST/ALT: 143/111 - 347/315 - 48/358 - 11/120 - 8/88 - <8/64 Troponin (high sensitive): 32 - 31 - 34 TSH: 0.17 - 0.15 T3: 0.40 (low) T4: 5.7 Free T4: 1.27 Free T3: 1.55 (low) Chest x-ray revealed: IMPRESSION: Cardiomegaly. Repeat chest x-ray revealed: IMPRESSION: 1. Cardiomegaly with increased interstitial prominence suggestive of CHF exacerbation. 2. Pulmonary arterial hypertension. Repeat chest x-ray revealed: IMPRESSION: Cardiomegaly with mild pulmonary congestion. . Repeat chest x-ray revealed: IMPRESSION: Cardiomegaly with pulmonary congestion and edema. Superimposed pneumonia cannot be excluded. Repeat chest x-ray revealed: IMPRESSION: Worsening right lower lung airspace disease. Suggestion of small bilateral pleural effusions. Repeat chest xray revealed: IMPRESSION: No significant interval change Abdominal ultrasound revealed: IMPRESSION: Small left hydronephrosis Renal scan revealed: IMPRESSION: Bilateral renal obstruction is present which is not response to Lasix administration suggesting that the kidney may be minimally functional. Abdomen and pelvic CT scan revealed: IMPRESSION: Moderate left hydroureteronephrosis. Suggestion of possible small abscess formation in the left hemipelvis associated with the sigmoid colon measuring 5.7 cm. This may represent site of ureteral obstruction. Clinical correlation advised. Examination is limited secondary to lack of intravenous and oral contrast administration. Abdomen and pelvis CT revealed: IMPRESSION: Sigmoid colonic diverticulitis with an adjacent 6 cm fluid collection with gas, could be an abscess. Probable fistula of the sigmoid to the fluid collection, and possibly with the urinary bladder, which is decompressed with a Tijerina. Possible trace left hydronephrosis with perinephric fat stranding. CT guided abscess drainage: IMPRESSION: CT guided placement of 8 serbian pigtail drain into a left hemipelvic abscess with 30 mL purulent fluid aspirated. PLAN: Routine tube care. Renal ultrasound revealed: IMPRESSION: Unremarkable renal ultrasound without hydronephrosis seen. EKG revealed atrial fibrillation with RVR Tele reveals atrial fibrillation with RVR Echocardiogram revealed: Left ventricle: Mild concentric left ventricular hypertrophy was seen. LVEF was around 50%. Right ventricle was mildly dilated with reduced systolic function. Both atria were dilated. Aortic valve was not well visualized. There was no aortic insufficiency/stenosis. There was mild mitral regurgitation. There was [id number] tricuspid regurgitation. Pulmonary valve was not well visualized. Right ventricular systolic pressure was assessed at 50 mm Hg. IVC was dilated. There was no pericardial effusion. Patient is a 74-year-old female with known history of diastolic heart failure with type 2 pulmonary hypertension who presented with abdominal pain. He is admitted to ICU with septic shock. Did have thrombocytopenia which slowly improved. Was significantly anemic and was transfused PRBC. There has been question about pelvic abscess and the patient is on antibiotics. Patient is being followed by surgery/Urology/pulmonary/GI. It is of note that the patient does have history of significant alcohol abuse (drinks good amount of whiskey daily) which could contribute to to some component of the clinical picture. Does have baseline history of pulmonary hypertension. Usually is on some amount of diuretic (Bumex) as outpatient. Clinically, the patient does have dry mucosa and maybe behind fluids at the time of evaluation. Does have baseline poor functional capacity. Does have history of recent sepsis. s/p CT guided abscess drainage. Seen by Nephrology. Diuretics are on hold. TFT are in favor of subclinical thyroid problem. Significant anemia, status post PRBC transfusion Thrombocytopenia, resolved Septic shock SCOT on CKD Hydronephrosis Pelvic abscess Transaminitis Acute on chronic diastolic heart failure Pulmonary Hypertension, type 2 Alcohol abuse Morbid obesity Poor functional capacity Bed-bound at baseline Atrial fibrillation with RVR Hyperlipidemia Osteoarthritis Rheumatoid arthritis Peripheral vascular disease Abdominal abscess? s/p CT guided abscess drainage Cardiac suggestion for management: Manage in ICU Follow-up electrolytes and kidney function tests and correct abnormalities Full anticoagulation (on Eliquis presently), long-term Nephrology follow up (on bumex drip) On oral amiodarone Pressor support at this point to keep mean arterial pressure above 65 Evaluation and management of sepsis/infection as per primary team Evaluation and management of alcohol abuse/prevention of withdrawal as per primary team Evaluation and management of pelvic abscess/hydronephrosis as per primary team/surgery/Urology Further evaluation and management depends on the above and clinical course A total of 75 minutes was spent reviewing the patient record, examining the patient, making a diagnostic and therapeutic plan, discussing this plan with medical personnel, following up on diagnostic studies and following the patient for clinical stability excluding any and all procedures. At least 50% of this time was spent in direct, [id number] contact. Thank you for allowing me to participate in this patient's care. Further recommendations will depend on patient's clinical course. Please do not hesitate to contact me if you have any questions or concerns. This medical document was created using electronic medical record system with [employer] computerized dictation system. Although this document has been carefully reviewed, there may still be some phonetic and typographical errors. These areas are purely typographical due to the imperfection of the software programs, and do not reflect any compromise in the patient's medical care. Dietary Evaluation Review Comments: Renal Specific 60g CCHO-60 Cardiac Diet d/t SCOT over CKD and low GFR Expected Outcomes/Goals: less uremic symptoms, better weight management Plan discussed with: Patient, Other (nurses) CC Plasma Assessment Blood Product Administration S: [id number] AUSTIN ROMERO MD Mar 30, 2025 09:40
--- NOTE | 2025-03-30 11:21 | DVHPN2 ---
Subjective Patient continues to have pain to left lower quadrant Reviewed: Care Plan, H&P, Labs, Medications, Previous Orders, Radiology Changes from previous H/P or p: No Changes General: Per HPI Eyes: No Pain, No Vision change, No Conjunctivae inflammation, No Eyelid inflammation, No Other, No Redness ENT: No Ear pain, No Ear discharge, No Nose pain, No Nose discharge, No Nose congestion, No Mouth pain, No Mouth swelling, No Throat pain, No Throat swelling, No Other Cardiovascular: No Chest Pain, No Palpitations, No Orthopnea, No Paroxysmal Noc. Dyspnea, No Edema, No Lt Headedness, No Other Respiratory: No Cough, No Dry, No Shortness of breath, No SOB with excertion, No Wheezing, No Hemoptysis, No Pleuritic Pain, No Sputum, No Other Gastrointestinal: Nausea, Vomiting, Abdominal Pain Genitourinary: No Dysuria, No Frequency, No Incontinence, No Hematuria, No Retention, No Other Musculoskeletal: No other, No neck pain, No shoulder pain, No arm pain, No back pain, No hand pain, No leg pain, No foot pain Skin: No Rash, No Lesions, No Jaundice, No Bruising, No Other Objective Vitals Vital Signs Date Time Temp Pulse Resp B/P (MAP) Pulse Ox O2 Delivery O2 Flow Rate FiO2 03/30/25 11:00 90 12 109/48 (68) 100 03/30/25 10:00 Nasal Cannula* 2 28 03/30/25 09:15 97.4 97.4 Intake/Output Intake and Output 03/30/25 07:00 Intake Total 2809.819 ml Output Total 555 ml Balance 2254.819 ml Intake Oral 700 ml IV Total 2109.819 ml Output Urine Total 525 ml Drainage Total 30 ml General Appearance: Alert, Oriented X3, Cooperative, Other HEENT: Atraumatic, PERRLA Cardiovascular: Normal S1, Normal S2, Other Abdomen: Normal bowel sounds, Other Extremities: No edema, Normal pulses Neuro: Sensation intact, Cranial nerves 3-12 NL Skin: Dry, Intact Psych/Mental Status: Mental status NL, Mood NL Medications Current Medications Medications Dose Ordered Sig/Sravan Route Start Time Stop Time Status Last Admin Dose Admin Acetaminophen/ Hydrocodone Bitart 1 tab Q4HP PRN PO 03/20/25 12:15 03/30/25 00:45 1 TAB Ondansetron HCl 4 mg Q4HP PRN IV 03/20/25 12:15 03/26/25 08:18 4 MG Docusate Sodium 100 mg BIDPRN PRN PO 03/20/25 12:15 Acetaminophen 650 mg Q6HP PRN PO 03/20/25 12:15 03/28/25 10:59 650 MG Nitroglycerin 0.4 mg Q5MINP PRN SL 03/20/25 12:15 03/25/25 09:26 0.4 MG Morphine Sulfate 2 mg Q30M PRN IV 03/20/25 12:15 03/25/25 09:43 2 MG Allopurinol 100 mg DAILY PO 03/21/25 10:00 03/30/25 10:35 100 MG Apixaban 2.5 mg BID PO 03/20/25 22:00 03/29/25 21:37 2.5 MG Cilostazol 100 mg BID PO 03/20/25 22:00 03/30/25 10:34 100 MG Patient Own Medication 1 tab DAILY PO 03/21/25 10:00 UNV Patient Own Medication 1 tab DAILY PO 03/21/25 10:00 UNV Gabapentin 300 mg DAILY PO 03/21/25 10:00 03/30/25 10:34 300 MG Levothyroxine Sodium 112 mcg DAILY PO 03/21/25 10:00 03/30/25 10:34 112 MCG Levothyroxine Sodium 25 mcg DAILY PO 03/21/25 10:00 03/30/25 10:34 25 MCG Diphenhydramine HCl 50 mg [id number] PRN PO 03/21/25 16:45 03/21/25 22:57 50 MG Albuterol 2.5 mg Q6HR NEB 03/21/25 18:00 03/30/25 06:03 2.5 MG Ipratropium [place] 0.5 mg Q6HWA NEB 03/21/25 18:00 03/30/25 06:03 0.5 MG Patient Own Medication 1 tab BID PO 03/21/25 22:00 03/30/25 10:00 1 TAB Throat Lozenges 1 liv Q2HP PRN MT 03/23/25 04:00 03/23/25 14:52 1 LIV Pantoprazole Sodium 40 mg DAILY IV 03/26/25 10:00 03/30/25 10:33 40 MG Magnesium Oxide 400 mg DAILY PO 03/27/25 10:00 03/30/25 10:34 400 MG Ertapenem 0.5 gm DAILY IM 03/27/25 11:15 Cancel Amino Acids 0 ml @ 0 mls/hr PER PHARMACY IV 03/27/25 12:00 Diagnostic Test (Pha) 1 strip Q6HR 03/27/25 18:00 03/30/25 05:55 1 STRIP Insulin Human Regular FOLLOW SLIDING SCALE Q6HR SC 03/27/25 18:00 03/30/25 05:57 2 UNITS Dextrose 50 ml UD IV 03/27/25 12:30 Norepinephrine Bitartrate 250 ml @ 0.938 mls/ hr Q24H IV 03/28/25 09:15 03/30/25 10:33 4.688 MLS/HR Bumetanide 12.5 mg/Miscellaneous 50 ml @ 2 mls/hr Q24H IV 03/28/25 17:45 03/30/25 10:45 2 MLS/HR Amiodarone HCl 200 mg Q12HR PO 03/29/25 10:00 03/30/25 10:34 200 MG Fat Emulsion Intravenous 200 ml/Sodium Chloride 40 meq/ Potassium Chloride 40 meq/ Sodium Acetate 20 meq/Calcium Gluconate 2.3 meq/ Magnesium Sulfate 14 meq/ Multivitamins 10 ml/Chromium/ Copper/Manganese/ Zinc 1 ml/Amino Acids/Dextrose 1,359.4462 ml @ 57 mls/hr [id number] IV 03/29/25 22:00 03/30/25 21:59 03/29/25 21:42 57 MLS/HR Laboratory Results Laboratory Tests 03/30/25 03:00 Chemistry Test 03/30/25 03:00 Albumin 3.6 g/dL (3.2-4.8) Calcium Level 8.7 mg/dL (8.7-10.4) Magnesium Level 2.4 mg/dL (1.6-2.6) Phosphorus Level 3.8 mg/dL (2.4-5.1) Total Protein 6.2 g/dL (5.7-8.2) LFT Test 03/30/25 03:00 Alanine Aminotransferase (ALT) 64 U/L (7-40) H Alkaline Phosphatase 99 U/L (46-116) Aspartate Amino Transferase (AST) < 8 U/L (13-40) L Total Bilirubin 0.4 mg/dL (0.2-1.0) Urinalysis Test 03/20/25 09:34 Urine Color Colorless (Yellow) Urine Clarity Turbid (Clear) H Urine pH 5.0 (5.0-9.0) Urine Specific [place] 1.015 (1.001-1.035) Urine Protein Negative (Negative) Urine Ketones Negative (Negative) Urine Blood Negative /uL (Negative) Urine Nitrite Negative (Negative) Urine Bilirubin Negative (Negative) Urine Urobilinogen Normal mg/dL (Negative) Urine Leukocyte Esterase 3+ /uL (Negative) Urine RBC 1 /hpf (0 - 4) Urine Microscopic WBC 255 /HPF (0-5) H Urine Squamous Epithelial Cells Few /hpf (<5) Urine Bacteria Few /hpf (None Seen) H Urine Glucose Normal mg/dL (Normal) Microbiology Microbiology Date/Time Source Procedure Growth Status 03/26/25 15:00 Aspirate Gram Stain - Final Complete 03/26/25 15:00 Body Fluid Culture - Final Escherichia coli - ESBL Enterobacter cloacae Proteus mirabilis Complete 03/23/25 04:30 Throat Nose/Throat Culture - Final Complete 03/21/25 18:00 Urine - Catheterized Urine Culture - Final Escherichia coli - ESBL Klebsiella pneumoniae - ESBL Complete 03/20/25 21:52 Nose MRSA Screen - Final Complete Labs and/or images reviewed: Labs reviewed by me, Image(s) reviewed by me Assessment/Plan Assessment/Plan 03/30.-74-year-old female. She is here for sepsis secondary to diverticular abscess. Surgery following and IR has placed a draining tube into abscess. Is draining about 10-30 cc serosanguineous fluid. This morning patient's hemoglobin is low 7.1 no obvious signs of active hemorrhage. Patient is on Eliquis for AFib RVR cardiology following and nephrology following. Patient is in acute decompensated heart failure. This PMV we will repeat hemoglobin and repeat type and screen in case patient needs another unit PRBC. Patient is on broad-spectrum antibiotic meropenem. Patient's amiodarone has been converted from IV to p.o.. Nephrology is directing diuresis which is inadequate right now which is only urine output of 300 cc per 24 hours. We will follow up with Nephrology. No feeds right now as per primary team's plan. Continue TPN. Patient remains on Levophed at 2. Bumex at 0.5. Patient complains of mild discomfort in drain insertion site with cough. Drain dressing CDI. Impression: -septic shock -diverticular abscess -AFib with RVR -morbid obesity -obstructive uropathy -CKD stage 4 -acute kidney injury, vasomotor nephropathy -acute on chronic systolic and diastolic heart failure -bed-bound status -complicated cystitis with ESBL in the urine. Plan: -antibiotic therapy to Meropenem -continue rate control with IV amiodarone. Switch to p.o. per Cardiology -status post IR drain placement diverticular abscess. -repeat renal ultrasound reveals that hydronephrosis has resolved. Further course of care per Urology -surgical consultation: Recommendations reviewed -continue anticoagulation with Eliquis -continue feeds Critical care time spent with patient discussing and formulating plan of care: 40 minutes. This does not include time spent performing procedures. Plan discussed with: Patient Date of Service: Mar 30, 2025 Billing Provider: JOSÉ MANUEL LINTON MD Common Visit Codes: 10987-COLOBCTW CARE 30-74 MIN JOSÉ MANUEL LINTON MD Mar 30, 2025 11:21
[2025-03-30 14:16] LABS: Hematocrit 21.8 % (36.0-46.0); Mean Corpuscular Hemoglobin 28.0 pg (28.0-32.0); Mean Corpuscular Volume 86.6 fL (80.0-100.0); Nucleated Red Blood Cells % 0.1 %
[2025-03-30 14:33] LABS: Hemoglobin 7.0 g/dL (12.2-16.2)
[2025-03-30] MEDS: BUMETANIDE INJECTION 12.5 MG in GIVE UN-DILUTED 0 ML IV SCH (15:00)
--- NOTE | 2025-03-30 15:02 | DVHPN2 ---
Progress Note - Dictate Date Seen: Mar 30, 2025 Has the PT tested + for MRSA If YES, has PT been informed?: No Medical Necessity Reason Pt with a Central, PICC or Fol: Yes The following are medically ne: Tijerina Catheter Reason for tijerina catheter: Strict I&O Subjective Levophed requirement has come down to 2 micrograms/minute. Continues to be on Bumex drip at 0.5 milligrams/hour. vital signs Vital Sign Date Time Temp Pulse Resp B/P (MAP) Pulse Ox O2 Delivery O2 Flow Rate FiO2 03/30/25 13:15 96 13 125/56 (79) 98 03/30/25 12:25 Nasal Cannula 2.0 03/30/25 12: 28 03/30/25 09:15 97.4 97.4 Total Intake and Output 03/29/25 03/29/25 03/30/25 15:00 23:00 07:00 Intake Total 745.844 ml 1148.594 ml 915.381 ml Output Total 325 ml 230 ml Balance 745.844 ml 823.594 ml 685.381 ml medications Current Medications Medications Dose Ordered Sig/Sravan Route Start Time Stop Time Status Last Admin Dose Admin Acetaminophen/ Hydrocodone Bitart 1 tab Q4HP PRN PO 03/20/25 12:15 03/30/25 00:45 1 TAB Ondansetron HCl 4 mg Q4HP PRN IV 03/20/25 12:15 03/26/25 08:18 4 MG Docusate Sodium 100 mg BIDPRN PRN PO 03/20/25 12:15 Acetaminophen 650 mg Q6HP PRN PO 03/20/25 12:15 03/28/25 10:59 650 MG Nitroglycerin 0.4 mg Q5MINP PRN SL 03/20/25 12:15 03/25/25 09:26 0.4 MG Morphine Sulfate 2 mg Q30M PRN IV 03/20/25 12:15 03/25/25 09:43 2 MG Allopurinol 100 mg DAILY PO 03/21/25 10:00 03/30/25 10:35 100 MG Apixaban 2.5 mg BID PO 03/20/25 22:00 03/30/25 12:45 2.5 MG Cilostazol 100 mg BID PO 03/20/25 22:00 03/30/25 10:34 100 MG Patient Own Medication 1 tab DAILY PO 03/21/25 10:00 UNV Patient Own Medication 1 tab DAILY PO 03/21/25 10:00 UNV Gabapentin 300 mg DAILY PO 03/21/25 10:00 03/30/25 10:34 300 MG Levothyroxine Sodium 112 mcg DAILY PO 03/21/25 10:00 03/30/25 10:34 112 MCG Levothyroxine Sodium 25 mcg DAILY PO 03/21/25 10:00 03/30/25 10:34 25 MCG Diphenhydramine HCl 50 mg [id number] PRN PO 03/21/25 16:45 03/21/25 22:57 50 MG Albuterol 2.5 mg Q6HR NEB 03/21/25 18:00 03/30/25 12:25 2.5 MG Ipratropium Darwin 0.5 mg Q6HWA NEB 03/21/25 18:00 03/30/25 12:25 0.5 MG Patient Own Medication 1 tab BID PO 03/21/25 22:00 03/30/25 10:00 1 TAB Throat Lozenges 1 liv Q2HP PRN MT 03/23/25 04:00 03/23/25 14:52 1 LIV Pantoprazole Sodium 40 mg DAILY IV 03/26/25 10:00 03/30/25 10:33 40 MG Magnesium Oxide 400 mg DAILY PO 03/27/25 10:00 03/30/25 10:34 400 MG Ertapenem 0.5 gm DAILY IM 03/27/25 11:15 Cancel Amino Acids 0 ml @ 0 mls/hr PER PHARMACY IV 03/27/25 12:00 Diagnostic Test (Pha) 1 strip Q6HR 03/27/25 18:00 03/30/25 12:00 1 STRIP Insulin Human Regular FOLLOW SLIDING SCALE Q6HR SC 03/27/25 18:00 03/30/25 12:49 2 UNITS Dextrose 50 ml UD IV 03/27/25 12:30 Norepinephrine Bitartrate 250 ml @ 0.938 mls/ hr Q24H IV 03/28/25 09:15 03/30/25 10:33 4.688 MLS/HR Bumetanide 12.5 mg/Miscellaneous 50 ml @ 2 mls/hr Q24H IV 03/28/25 17:45 03/30/25 10:45 2 MLS/HR Amiodarone HCl 200 mg Q12HR PO 03/29/25 10:00 03/30/25 10:34 200 MG Fat Emulsion Intravenous 200 ml/Sodium Chloride 40 meq/ Potassium Chloride 40 meq/ Sodium Acetate 20 meq/Calcium Gluconate 2.3 meq/ Magnesium Sulfate 14 meq/ Multivitamins 10 ml/Chromium/ Copper/Manganese/ Zinc 1 ml/Amino Acids/Dextrose 1,359.4462 ml @ 57 mls/hr [id number] IV 03/29/25 22:00 03/30/25 21:59 03/29/25 21:42 57 MLS/HR Fat Emulsion Intravenous 200 ml/Sodium Chloride 40 meq/ Sodium Acetate 40 meq/Potassium Chloride 40 meq/ Potassium Phosphate 11 meq/ Calcium Gluconate 2.32 meq/ Magnesium Sulfate 10 meq/ Multivitamins 10 ml/Chromium/ Copper/Manganese/ Zinc 1 ml/Amino Acids/Dextrose 1,420.9892 ml @ 59 mls/hr Q24H6M IV 03/30/25 22:00 03/31/25 21:59 objective Patient was resting comfortably in no acute distress HEENT: Normocephalic, no JVD Lungs: Bilateral good air entry CVS: S1, S2 regular rate rhythm Abdomen: Soft, bowel sounds present PATIENT SAFETY TECH: No focal deficits Extremities: 3+ Edema present laboratory and microbiology Laboratory Tests 03/30/25 14:00 03/30/25 03:00 Test 03/30/25 03:00 Range/Units Serum Glucose 124 H 74-106 mg/dL Problem List Acute kidney injury superimposed on CKD 4 Sepsis with a urine culture growing E coli and Klebsiella both of which are ESBL . Wound culture with E coli ESBL Septic shock Status post drainage of left pelvic abscess Left hydronephrosis which has a resolved Acute on chronic diastolic heart failure Anemia status post transfusion of PRBC Pulmonary hypertension Atrial fibrillation Bed-bound patient Assessment/Plan continue with pressor support . Worsening GFR . continue IV abx Continue Bumex drip 1 milligrams/hour Dietary Evaluation Review Comments: Renal Specific 60g CCHO-60 Cardiac Diet d/t SCOT over CKD and low GFR Expected Outcomes/Goals: less uremic symptoms, better weight management Plan discussed with: Patient CC Plasma Assessment Blood Product Administration S: [id number] VÍCTOR JUDGE MD Mar 30, 2025 15:02
[2025-03-30] MEDS: FAT EMULSION IV NR (20:48)
[2025-03-30] MEDS: SODIUM CHLORIDE IV NR (20:48)
[2025-03-30] MEDS: SODIUM ACETATE IV NR (20:48)
[2025-03-30] MEDS: [UNRECOGNIZED DRUG - OTHER] IV NR (20:48)
[2025-03-30 21:28] LABS: Hematocrit 26.8 % (36.0-46.0); Hemoglobin 8.5 g/dL (12.2-16.2)
--- NOTE | 2025-03-30 23:51 | DVHPN2 ---
Progress Note - Dictate Date Seen: Mar 30, 2025 Has the PT tested + for MRSA If YES, has PT been informed?: No Medical Necessity Reason Pt with a Central, PICC or Fol: Yes The following are medically ne: Tijerina Catheter Reason for tijerina catheter: Strict I&O Subjective Patient seen and examined at bedside. Remains on supplemental oxygen Overnight events reviewed. vital signs Vital Sign Date Time Temp Pulse Resp B/P (MAP) Pulse Ox O2 Delivery O2 Flow Rate FiO2 03/30/25 23:15 101 12 108/30 (56) 98 03/30/25 23:00 97.5 97.5 03/30/25 22:00 Nasal Cannula* 3 32 Total Intake and Output 03/29/25 03/29/25 03/30/25 15:00 23:00 07:00 Intake Total 745.844 ml 1148.594 ml 915.381 ml Output Total 325 ml 230 ml Balance 745.844 ml 823.594 ml 685.381 ml medications Current Medications Medications Dose Ordered Sig/Sravan Route Start Time Stop Time Status Last Admin Dose Admin Acetaminophen/ Hydrocodone Bitart 1 tab Q4HP PRN PO 03/20/25 12:15 03/30/25 00:45 1 TAB Ondansetron HCl 4 mg Q4HP PRN IV 03/20/25 12:15 03/26/25 08:18 4 MG Docusate Sodium 100 mg BIDPRN PRN PO 03/20/25 12:15 Acetaminophen 650 mg Q6HP PRN PO 03/20/25 12:15 03/28/25 10:59 650 MG Nitroglycerin 0.4 mg Q5MINP PRN SL 03/20/25 12:15 03/25/25 09:26 0.4 MG Morphine Sulfate 2 mg Q30M PRN IV 03/20/25 12:15 03/25/25 09:43 2 MG Allopurinol 100 mg DAILY PO 03/21/25 10:00 03/30/25 10:35 100 MG Apixaban 2.5 mg BID PO 03/20/25 22:00 03/30/25 20:58 2.5 MG Cilostazol 100 mg BID PO 03/20/25 22:00 03/30/25 21:08 100 MG Patient Own Medication 1 tab DAILY PO 03/21/25 10:00 UNV Patient Own Medication 1 tab DAILY PO 03/21/25 10:00 UNV Gabapentin 300 mg DAILY PO 03/21/25 10:00 03/30/25 10:34 300 MG Levothyroxine Sodium 112 mcg DAILY PO 03/21/25 10:00 03/30/25 10:34 112 MCG Levothyroxine Sodium 25 mcg DAILY PO 03/21/25 10:00 03/30/25 10:34 25 MCG Diphenhydramine HCl 50 mg [id number] PRN PO 03/21/25 16:45 03/21/25 22:57 50 MG Albuterol 2.5 mg Q6HR NEB 03/21/25 18:00 03/30/25 19:35 2.5 MG Ipratropium [place] 0.5 mg Q6HWA NEB 03/21/25 18:00 03/30/25 19:35 0.5 MG Patient Own Medication 1 tab BID PO 03/21/25 22:00 03/30/25 21:06 1 TAB Throat Lozenges 1 liv Q2HP PRN MT 03/23/25 04:00 03/23/25 14:52 1 LIV Pantoprazole Sodium 40 mg DAILY IV 03/26/25 10:00 03/30/25 10:33 40 MG Magnesium Oxide 400 mg DAILY PO 03/27/25 10:00 03/30/25 10:34 400 MG Ertapenem 0.5 gm DAILY IM 03/27/25 11:15 Cancel Amino Acids 0 ml @ 0 mls/hr PER PHARMACY IV 03/27/25 12:00 Diagnostic Test (Pha) 1 strip Q6HR 03/27/25 18:00 03/30/25 17:37 1 STRIP Insulin Human Regular FOLLOW SLIDING SCALE Q6HR SC 03/27/25 18:00 03/30/25 12:49 2 UNITS Dextrose 50 ml UD IV 03/27/25 12:30 Norepinephrine Bitartrate 250 ml @ 0.938 mls/ hr Q24H IV 03/28/25 09:15 03/30/25 10:33 4.688 MLS/HR Amiodarone HCl 200 mg Q12HR PO 03/29/25 10:00 03/30/25 20:58 200 MG Fat Emulsion Intravenous 200 ml/Sodium Chloride 40 meq/ Sodium Acetate 40 meq/Potassium Chloride 40 meq/ Potassium Phosphate 11 meq/ Calcium Gluconate 2.32 meq/ Magnesium Sulfate 10 meq/ Multivitamins 10 ml/Chromium/ Copper/Manganese/ Zinc 1 ml/Amino Acids/Dextrose 1,420.9892 ml @ 59 mls/hr Q24H6M IV 03/30/25 22:00 03/31/25 21:59 03/30/25 20:48 59 MLS/HR Bumetanide 12.5 mg/Miscellaneous 50 ml @ 4 mls/hr [id number] IV 03/30/25 15:00 03/30/25 15:00 4 MLS/HR objective Gen.: Patient lying in bed in no apparent distress. On supplemental oxygen. Head: Normocephalic, atraumatic. Eyes: EOMI/PERRLA. Ears: Normal hearing. Normal anatomy. Neck/trachea: Trachea midline, supple. Nose: Normal external anatomy. Mouth: Moist mucous membranes. Chest: Decreased air entry bilaterally. No wheezing or rhonchi. Cardiovascular: Positive S1, positive S2. Regular rate and rhythm. Abdomen: Positive bowel sounds in all 4 quadrants. Soft, non-tender, non- distended. : Deferred. Rectal: Deferred. Skin: Warm, dry. Intact. Extremities: 2+ radial pulses bilaterally. No lower extremity edema. Neuro: Awake, alert, oriented x3. No gross motor or sensory deficits. Cranial nerves II through XII intact. Gait not assessed. laboratory and microbiology Laboratory Tests 03/30/25 21:20 03/30/25 14:00 03/30/25 03:00 Test 03/30/25 03:00 Range/Units Serum Glucose 124 H 74-106 mg/dL Assessment/Plan Impression: Acute kidney injury Acute hypoxic respiratory failure Dependence on supplemental oxygen Chronic obstructive pulmonary disease Pneumonia Left hydronephrosis Septic shock Events: On supplemental oxygen 2 LPM via NC Taper O2 as tolerated On pressors for hemodynamic support Levophed 1 mcg/min Titrate to keep mean arterial pressure greater than 65 mmHg. Improved pressor requirements - taper as tolerated Head of bed elevation Aspiration precautions Amiodarone PO Continue antibiotics Monitor WBC - trending down Continue bronchodilators Incentive spirometry Accu-Cheks, ISS. IV fluids Diurese with Bumex 0.5 mg drip Albumin Monitor renal function - BUN 72-->78; Cr of 3.56-->3.83 Nephrology recommendations appreciated Monitor electrolytes. Supplement as necessary. Potassium, magnesium at goal. NPO TPN for nutritional support Pigtail drain placed for aspiration of left hemipelvic abscess (03/26) Cultures from drainage grew ESBL, Enterobacter cloacae. ID recommendations appreciated Monitor hemoglobin - currently 7.0 g/dL S/p 1 unit PRBC transfusion Labs and imaging studies reviewed Plan Supplemental oxygen Titrate to keep O2 sats above 92%. Pressors as necessary for hemodynamic support Titrate to keep mean arterial pressure greater than 65 mmHg. Bronchodilators for COPD - stable Continue antibiotics F/u cultures Amiodarone PO Eliquis Monitor WBC Monitor hemoglobin Monitor renal function Monitor electrolytes. Supplement as necessary. Monitor ins and outs. Maintain euvolemia. F/u with urology/urology and gen sx GI prophylaxis. DVT prophylaxis. Prognosis: Poor given patient's multiple co-morbidities. Condition: Critical Rest of plan per hospitalist and other consultants. A total of 35 minutes of critical care time was spent reviewing the patient record, examining the patient, making a diagnostic and therapeutic plan, discussing this plan with the medical personnel, following up on diagnostic studies and following the patient for clinical stability excluding any and all procedures. At least 50% of this time was spent in direct, [id number] contact. Thank you, Dr. Celis, for allowing me to participate in this patient's care. Further recommendations will depend on the patient's clinical course. Please do not hesitate to contact me if you have any questions or concerns. This medical document was created using an electronic medical record system with [employer] computerized dictation system. Although these documentations are being carefully reviewed, there may still be some phonetic and typographical changes. The errors are purely typographical, due to imperfection on the software program, and do not reflect any compromise in the patient's medical care. Dietary Evaluation Review Comments: Renal Specific 60g CCHO-60 Cardiac Diet d/t SCOT over CKD and low GFR Expected Outcomes/Goals: less uremic symptoms, better weight management Plan discussed with: Other (BOSTON Reddy) Critical Care Time(min): 35 CC Plasma Assessment Blood Product Administration S: [id number] PALOMO ROBLES MD Mar 30, 2025 23:51
[2025-03-31] VITALS (104 sets, daily range): BP systolic 78–133; BP diastolic 25–61; PULSE 84–107; RESP 9–24; TEMP 97–98.2; O2SAT 90–100
[2025-03-31 04:17] LABS: Hemoglobin 8.2 g/dL (12.2-16.2)
[2025-03-31 04:21] LABS: Albumin 3.6 g/dL (3.2-4.8); Alkaline Phosphatase 99 U/L (46-116); Anion Gap 13 (5-15); BUN/Creatinine Ratio 20.6 (10.0-20.0); Calcium 8.8 mg/dL (8.7-10.4); Carbon Dioxide 22 mmol/L (20-31); Chloride 100 mmol/L (98-107); Hematocrit 25.6 % (36.0-46.0); Magnesium 2.5 mg/dL (1.6-2.6); Mean Corpuscular Hemoglobin 28.3 pg (28.0-32.0); Mean Corpuscular Volume 88.0 fL (80.0-100.0); Nucleated Red Blood Cells % 0.1 %; Potassium 4.0 mmol/L (3.5-5.1); Total Protein 6.3 g/dL (5.7-8.2)
[2025-03-31 04:22] LABS: Bilirubin, Total 0.4 mg/dL (0.2-1.0)
[2025-03-31 04:32] LABS: Alanine Aminotransferase 50 U/L (7-40); Blood Urea Nitrogen 85 mg/dL (9-23); Glucose 125 mg/dL (74-106); Sodium 135 mmol/L (136-145)
--- NOTE | 2025-03-31 09:43 | DVHPN2 ---
Progress Note - Dictate Date Seen: Mar 31, 2025 Has the PT tested + for MRSA If YES, has PT been informed?: No Medical Necessity Reason Pt with a Central, PICC or Fol: Yes The following are medically ne: Tijerina Catheter Reason for tijerina catheter: Strict I&O Subjective Patient was transfused 1 unit of PRBC yesterday. Urine output has been marginal. Levophed requirement has decreased. vital signs Vital Sign Date Time Temp Pulse Resp B/P (MAP) Pulse Ox O2 Delivery O2 Flow Rate FiO2 03/31/25 06:45 95 14 119/53 (75) 98 03/31/25 06:12 Nasal Cannula 2.0 03/31/25 06:12 28 03/31/25 03:15 97.5 97.5 Total Intake and Output 03/30/25 03/30/25 03/31/25 15:00 23:00 07:00 Intake Total 598.071 ml 1369.315 ml 727.25 ml Output Total 125 ml 220 ml Balance 598.071 ml 1244.315 ml 507.25 ml medications Current Medications Medications Dose Ordered Sig/Sravan Route Start Time Stop Time Status Last Admin Dose Admin Acetaminophen/ Hydrocodone Bitart 1 tab Q4HP PRN PO 03/20/25 12:15 03/30/25 00:45 1 TAB Ondansetron HCl 4 mg Q4HP PRN IV 03/20/25 12:15 03/26/25 08:18 4 MG Docusate Sodium 100 mg BIDPRN PRN PO 03/20/25 12:15 Acetaminophen 650 mg Q6HP PRN PO 03/20/25 12:15 03/28/25 10:59 650 MG Nitroglycerin 0.4 mg Q5MINP PRN SL 03/20/25 12:15 03/25/25 09:26 0.4 MG Morphine Sulfate 2 mg Q30M PRN IV 03/20/25 12:15 03/25/25 09:43 2 MG Allopurinol 100 mg DAILY PO 03/21/25 10:00 03/30/25 10:35 100 MG Apixaban 2.5 mg BID PO 03/20/25 22:00 03/30/25 20:58 2.5 MG Cilostazol 100 mg BID PO 03/20/25 22:00 03/30/25 21:08 100 MG Patient Own Medication 1 tab DAILY PO 03/21/25 10:00 UNV Patient Own Medication 1 tab DAILY PO 03/21/25 10:00 UNV Gabapentin 300 mg DAILY PO 03/21/25 10:00 03/30/25 10:34 300 MG Levothyroxine Sodium 112 mcg DAILY PO 03/21/25 10:00 03/30/25 10:34 112 MCG Levothyroxine Sodium 25 mcg DAILY PO 03/21/25 10:00 03/30/25 10:34 25 MCG Diphenhydramine HCl 50 mg [id number] PRN PO 03/21/25 16:45 03/21/25 22:57 50 MG Albuterol 2.5 mg Q6HR NEB 03/21/25 18:00 03/31/25 06:12 2.5 MG Ipratropium Gay[place] 0.5 mg Q6HWA NEB 03/21/25 18:00 03/31/25 06:12 0.5 MG Patient Own Medication 1 tab BID PO 03/21/25 22:00 03/30/25 21:06 1 TAB Throat Lozenges 1 liv Q2HP PRN MT 03/23/25 04:00 03/23/25 14:52 1 LIV Pantoprazole Sodium 40 mg DAILY IV 03/26/25 10:00 03/30/25 10:33 40 MG Magnesium Oxide 400 mg DAILY PO 03/27/25 10:00 03/30/25 10:34 400 MG Ertapenem 0.5 gm DAILY IM 03/27/25 11:15 Cancel Amino Acids 0 ml @ 0 mls/hr PER PHARMACY IV 03/27/25 12:00 Diagnostic Test (Pha) 1 strip Q6HR 03/27/25 18:00 03/31/25 05:36 1 STRIP Insulin Human Regular FOLLOW SLIDING SCALE Q6HR SC 03/27/25 18:00 03/31/25 05:35 2 UNITS Dextrose 50 ml UD IV 03/27/25 12:30 Norepinephrine Bitartrate 250 ml @ 0.938 mls/ hr Q24H IV 03/28/25 09:15 03/30/25 10:33 4.688 MLS/HR Amiodarone HCl 200 mg Q12HR PO 03/29/25 10:00 03/30/25 20:58 200 MG Fat Emulsion Intravenous 200 ml/Sodium Chloride 40 meq/ Sodium Acetate 40 meq/Potassium Chloride 40 meq/ Potassium Phosphate 11 meq/ Calcium Gluconate 2.32 meq/ Magnesium Sulfate 10 meq/ Multivitamins 10 ml/Chromium/ Copper/Manganese/ Zinc 1 ml/Amino Acids/Dextrose 1,420.9892 ml @ 59 mls/hr Q24H6M IV 03/30/25 22:00 03/31/25 21:59 03/30/25 20:48 59 MLS/HR Bumetanide 12.5 mg/Miscellaneous 50 ml @ 4 mls/hr [id number] IV 03/30/25 15:00 03/31/25 00:39 4 MLS/HR objective Patient was resting comfortably in no acute distress HEENT: Normocephalic, no JVD Lungs: Bilateral good air entry CVS: S1, S2 regular rate rhythm Abdomen: Soft, bowel sounds present POLICY SERVICES REPRESENTATIVE: No focal deficits Extremities: 3+ Edema present laboratory and microbiology Laboratory Tests 03/31/25 03:00 Test 03/31/25 03:00 Range/Units Serum Glucose 125 H 74-106 mg/dL Problem List Acute kidney injury superimposed on CKD 4 Sepsis with a urine culture growing E coli and Klebsiella both of which are ESBL . Wound culture with E coli ESBL Septic shock Status post drainage of left pelvic abscess Left hydronephrosis which has a resolved Acute on chronic diastolic heart failure Anemia status post transfusion of PRBC Pulmonary hypertension Atrial fibrillation Bed-bound patient Assessment/Plan Albumin 25% 100 mL q.8 hours x3 doses Increase Bumex to 1.5 milligrams/hour continue with pressor support . Worsening GFR . continue IV abx Discussed plan of care with the patient. Dietary Evaluation Review Comments: Renal Specific 60g CCHO-60 Cardiac Diet d/t SCOT over CKD and low GFR Expected Outcomes/Goals: less uremic symptoms, better weight management Plan discussed with: Patient CC Plasma Assessment Blood Product Administration S: [id number] VÍCTOR JUDGE MD Mar 31, 2025 09:43
[2025-03-31] MEDS: ALBUMIN 25% 100 ML IV SCH (10:23)
[2025-03-31] MEDS: BUMETANIDE INJECTION 25 MG in GIVE UN-DILUTED 0 ML IV SCH (10:25)
--- NOTE | 2025-03-31 12:57 | DVHPN2 ---
Subjective Patient continues to have pain to left lower quadrant Reviewed: Care Plan, H&P, Labs, Medications, Previous Orders, Radiology Changes from previous H/P or p: No Changes General: Per HPI Eyes: No Pain, No Vision change, No Conjunctivae inflammation, No Eyelid inflammation, No Other, No Redness ENT: No Ear pain, No Ear discharge, No Nose pain, No Nose discharge, No Nose congestion, No Mouth pain, No Mouth swelling, No Throat pain, No Throat swelling, No Other Cardiovascular: No Chest Pain, No Palpitations, No Orthopnea, No Paroxysmal Noc. Dyspnea, No Edema, No Lt Headedness, No Other Respiratory: No Cough, No Dry, No Shortness of breath, No SOB with excertion, No Wheezing, No Hemoptysis, No Pleuritic Pain, No Sputum, No Other Gastrointestinal: Nausea, Vomiting, Abdominal Pain Genitourinary: No Dysuria, No Frequency, No Incontinence, No Hematuria, No Retention, No Other Musculoskeletal: No other, No neck pain, No shoulder pain, No arm pain, No back pain, No hand pain, No leg pain, No foot pain Skin: No Rash, No Lesions, No Jaundice, No Bruising, No Other Objective Vitals Vital Signs Date Time Temp Pulse Resp B/P (MAP) Pulse Ox O2 Delivery O2 Flow Rate FiO2 03/31/25 12:30 98 14 95/38 (57) 97 03/31/25 12:00 Nasal Cannula* 3 32 03/31/25 08:00 97.0 97.0 Intake/Output Intake and Output 03/31/25 06:59 Intake Total 2775.921 ml Output Total 345 ml Balance 2430.921 ml Intake Oral 360 ml IV Total 1815.921 ml Blood Product 300 ml Other 300 ml Output Urine Total 325 ml Drainage Total 20 ml General Appearance: Alert, Oriented X3, Cooperative, Other HEENT: Atraumatic, PERRLA Cardiovascular: Normal S1, Normal S2, Other Abdomen: Normal bowel sounds, Other Extremities: No edema, Normal pulses Neuro: Sensation intact, Cranial nerves 3-12 NL Skin: Dry, Intact Psych/Mental Status: Mental status NL, Mood NL Medications Current Medications Medications Dose Ordered Sig/Sravan Route Start Time Stop Time Status Last Admin Dose Admin Acetaminophen/ Hydrocodone Bitart 1 tab Q4HP PRN PO 03/20/25 12:15 03/30/25 00:45 1 TAB Ondansetron HCl 4 mg Q4HP PRN IV 03/20/25 12:15 03/26/25 08:18 4 MG Docusate Sodium 100 mg BIDPRN PRN PO 03/20/25 12:15 Acetaminophen 650 mg Q6HP PRN PO 03/20/25 12:15 03/28/25 10:59 650 MG Nitroglycerin 0.4 mg Q5MINP PRN SL 03/20/25 12:15 03/25/25 09:26 0.4 MG Morphine Sulfate 2 mg Q30M PRN IV 03/20/25 12:15 03/25/25 09:43 2 MG Allopurinol 100 mg DAILY PO 03/21/25 10:00 03/31/25 10:19 100 MG Apixaban 2.5 mg BID PO 03/20/25 22:00 03/31/25 10:18 2.5 MG Cilostazol 100 mg BID PO 03/20/25 22:00 03/30/25 21:08 100 MG Patient Own Medication 1 tab DAILY PO 03/21/25 10:00 UNV Patient Own Medication 1 tab DAILY PO 03/21/25 10:00 UNV Gabapentin 300 mg DAILY PO 03/21/25 10:00 03/31/25 10:18 300 MG Levothyroxine Sodium 112 mcg DAILY PO 03/21/25 10:00 03/31/25 10:18 112 MCG Levothyroxine Sodium 25 mcg DAILY PO 03/21/25 10:00 03/31/25 10:19 25 MCG Diphenhydramine HCl 50 mg [id number] PRN PO 03/21/25 16:45 03/21/25 22:57 50 MG Albuterol 2.5 mg Q6HR NEB 03/21/25 18:00 03/31/25 11:22 2.5 MG Ipratropium Albin 0.5 mg Q6HWA NEB 03/21/25 18:00 03/31/25 11:22 0.5 MG Patient Own Medication 1 tab BID PO 03/21/25 22:00 03/31/25 10:19 1 TAB Throat Lozenges 1 liv Q2HP PRN MT 03/23/25 04:00 03/23/25 14:52 1 LIV Pantoprazole Sodium 40 mg DAILY IV 03/26/25 10:00 03/31/25 10:22 40 MG Magnesium Oxide 400 mg DAILY PO 03/27/25 10:00 03/31/25 10:22 400 MG Ertapenem 0.5 gm DAILY IM 03/27/25 11:15 Cancel Amino Acids 0 ml @ 0 mls/hr PER PHARMACY IV 03/27/25 12:00 Diagnostic Test (Pha) 1 strip Q6HR 03/27/25 18:00 03/31/25 12:50 1 STRIP Insulin Human Regular FOLLOW SLIDING SCALE Q6HR SC 03/27/25 18:00 03/31/25 12:51 2 UNITS Dextrose 50 ml UD IV 03/27/25 12:30 Norepinephrine Bitartrate 250 ml @ 0.938 mls/ hr Q24H IV 03/28/25 09:15 03/30/25 10:33 4.688 MLS/HR Amiodarone HCl 200 mg Q12HR PO 03/29/25 10:00 03/31/25 10:19 200 MG Fat Emulsion Intravenous 200 ml/Sodium Chloride 40 meq/ Sodium Acetate 40 meq/Potassium Chloride 40 meq/ Potassium Phosphate 11 meq/ Calcium Gluconate 2.32 meq/ Magnesium Sulfate 10 meq/ Multivitamins 10 ml/Chromium/ Copper/Manganese/ Zinc 1 ml/Amino Acids/Dextrose 1,420.9892 ml @ 59 mls/hr Q24H6M IV 03/30/25 22:00 03/31/25 21:59 03/30/25 20:48 59 MLS/HR Bumetanide 25 mg/ Miscellaneous 100 ml @ 6 mls/hr [id number] IV 03/31/25 09:45 03/31/25 10:25 6 MLS/HR Albumin Human 100 ml @ 100 mls/hr Q8H IV 03/31/25 09:45 04/01/25 02:44 03/31/25 10:23 100 MLS/HR Fat Emulsion Intravenous 200 ml/Sodium Chloride 60 meq/ Sodium Acetate 40 meq/Potassium Chloride 30 meq/ Potassium Phosphate 11 meq/ Calcium Gluconate 2.3 meq/Magnesium Sulfate 8 meq/ Multivitamins 10 ml/Chromium/ Copper/Manganese/ Zinc 1 ml/Amino Acids/Dextrose 1,520.4462 ml @ 63 mls/hr Q24H9M IV 03/31/25 22:00 7/6/25 21:59 Laboratory Results Laboratory Tests 03/31/25 03:00 Chemistry Test 03/31/25 03:00 Albumin 3.6 g/dL (3.2-4.8) Calcium Level 8.8 mg/dL (8.7-10.4) Magnesium Level 2.5 mg/dL (1.6-2.6) Phosphorus Level 3.6 mg/dL (2.4-5.1) Total Protein 6.3 g/dL (5.7-8.2) LFT Test 03/31/25 03:00 Alanine Aminotransferase (ALT) 50 U/L (7-40) H Alkaline Phosphatase 99 U/L (46-116) Aspartate Amino Transferase (AST) < 8 U/L (13-40) L Total Bilirubin 0.4 mg/dL (0.2-1.0) Urinalysis Test 03/20/25 09:34 Urine Color Colorless (Yellow) Urine Clarity Turbid (Clear) H Urine pH 5.0 (5.0-9.0) Urine Specific [place] 1.015 (1.001-1.035) Urine Protein Negative (Negative) Urine Ketones Negative (Negative) Urine Blood Negative /uL (Negative) Urine Nitrite Negative (Negative) Urine Bilirubin Negative (Negative) Urine Urobilinogen Normal mg/dL (Negative) Urine Leukocyte Esterase 3+ /uL (Negative) Urine RBC 1 /hpf (0 - 4) Urine Microscopic WBC 255 /HPF (0-5) H Urine Squamous Epithelial Cells Few /hpf (<5) Urine Bacteria Few /hpf (None Seen) H Urine Glucose Normal mg/dL (Normal) Microbiology Microbiology Date/Time Source Procedure Growth Status 03/26/25 15:00 Aspirate Gram Stain - Final Complete 03/26/25 15:00 Body Fluid Culture - Final Escherichia coli - ESBL Enterobacter cloacae Proteus mirabilis Complete 03/23/25 04:30 Throat Nose/Throat Culture - Final Complete 03/21/25 18:00 Urine - Catheterized Urine Culture - Final Escherichia coli - ESBL Klebsiella pneumoniae - ESBL Complete 03/20/25 21:52 Nose MRSA Screen - Final Complete Labs and/or images reviewed: Labs reviewed by me, Image(s) reviewed by me Assessment/Plan Assessment/Plan 03/30.-74-year-old female. She is here for sepsis secondary to diverticular abscess. Surgery following and IR has placed a draining tube into abscess. Is draining about 10-30 cc serosanguineous fluid. This morning patient's hemoglobin is low 7.1 no obvious signs of active hemorrhage. Patient is on Eliquis for AFib RVR cardiology following and nephrology following. Patient is in acute decompensated heart failure. This PM we will repeat hemoglobin and repeat type and screen in case patient needs another unit PRBC. Patient is on broad-spectrum antibiotic meropenem. Patient's amiodarone has been converted from IV to p.o.. Nephrology is directing diuresis which is inadequate right now which is only urine output of 300 cc per 24 hours. We will follow up with Nephrology. No feeds right now as per primary team's plan. Continue TPN. Patient remains on Levophed at 2. Bumex at 0.5. Patient complains of mild discomfort in drain insertion site with cough. Drain dressing CDI. 03/31- Levophed is down to 1. Bumex at 1. Nephrology wants to do trial of albumin. No metolazone. Holding off changes to vasopressors i.e. dopa. Patient is still not making enough urine. Patient remains severely edematous and now starting to have weeping. Poor dialysis candidate. Hemoglobin stable today. Holding off any feeds until Wednesday. Amiodarone is p.o.. Continue Eliquis anticoagulation. Impression: -septic shock -diverticular abscess -AFib with RVR -morbid obesity -obstructive uropathy -CKD stage 4 -acute kidney injury, vasomotor nephropathy -acute on chronic systolic and diastolic heart failure -bed-bound status -complicated cystitis with ESBL in the urine. Plan: -antibiotic therapy to Meropenem -continue rate control with IV amiodarone. Switch to p.o. per Cardiology -status post IR drain placement diverticular abscess. -repeat renal ultrasound reveals that hydronephrosis has resolved. Further course of care per Urology -surgical consultation: Recommendations reviewed -continue anticoagulation with Eliquis -continue feeds - Bumex drip per Nephrology, - weaning Levophed Critical care time spent with patient discussing and formulating plan of care: 40 minutes. This does not include time spent performing procedures. Plan discussed with: Patient Date of Service: Mar 31, 2025 Billing Provider: JOSÉ MANUEL LINTON MD Common Visit Codes: [id number] CARE 30-74 MIN JOSÉ MANUEL LINTON MD Mar 31, 2025 12:57
[2025-03-31] MEDS ORDERED: NYSTATIN TOPICAL POWDER 15GM TOP ONE (17:30)
--- NOTE | 2025-03-31 18:37 | DVHPN2 ---
Progress Note - Dictate Date Seen: Mar 31, 2025 Has the PT tested + for MRSA If YES, has PT been informed?: No Medical Necessity Reason Pt with a Central, PICC or Fol: Yes The following are medically ne: Tijerina Catheter Reason for tijerina catheter: Strict I&O Subjective The patient was seen and examined at the bedside in the ICU. Vital signs were stable. She is in atrial fibrillation with a controlled ventricular rate at 92 bpm. Bumex infusion was recently increased to 6 mL/hour. Nephrology is managing volume status; there is currently no plan for dialysis. Chart reviewed. Patient's medications, allergies, past medical, surgical, social and family histories were obtained and reviewed as appropriate. vital signs Vital Sign Date Time Temp Pulse Resp B/P (MAP) Pulse Ox O2 Delivery O2 Flow Rate FiO2 03/31/25 17:15 95 12 99/47 (64) 95 03/31/25 16:00 98.2 98.2 03/31/25 16:00 Nasal Cannula* 3 32 Total Intake and Output 03/30/25 03/30/25 03/31/25 15:00 23:00 07:00 Intake Total 598.071 ml 1369.315 ml 793.063 ml Output Total 125 ml 220 ml Balance 598.071 ml 1244.315 ml 573.063 ml medications Current Medications Medications Dose Ordered Sig/Sravan Route Start Time Stop Time Status Last Admin Dose Admin Acetaminophen/ Hydrocodone Bitart 1 tab Q4HP PRN PO 03/20/25 12:15 03/30/25 00:45 1 TAB Ondansetron HCl 4 mg Q4HP PRN IV 03/20/25 12:15 03/26/25 08:18 4 MG Docusate Sodium 100 mg BIDPRN PRN PO 03/20/25 12:15 Acetaminophen 650 mg Q6HP PRN PO 03/20/25 12:15 03/28/25 10:59 650 MG Nitroglycerin 0.4 mg Q5MINP PRN SL 03/20/25 12:15 03/25/25 09:26 0.4 MG Morphine Sulfate 2 mg Q30M PRN IV 03/20/25 12:03/25/25 09:43 2 MG Allopurinol 100 mg DAILY PO 03/21/25 10:00 03/31/25 10:19 100 MG Apixaban 2.5 mg BID PO 03/20/25 22:00 03/31/25 10:18 2.5 MG Cilostazol 100 mg BID PO 03/20/25 22:00 03/31/25 13:30 100 MG Patient Own Medication 1 tab DAILY PO 03/21/25 10:00 UNV Patient Own Medication 1 tab DAILY PO 03/21/25 10:00 UNV Gabapentin 300 mg DAILY PO 03/21/25 10:00 03/31/25 10:18 300 MG Levothyroxine Sodium 112 mcg DAILY PO 03/21/25 10:00 03/31/25 10:18 112 MCG Levothyroxine Sodium 25 mcg DAILY PO 03/21/25 10:00 03/31/25 10:19 25 MCG Diphenhydramine HCl 50 mg [id number] PRN PO 03/21/25 16:45 03/21/25 22:57 50 MG Albuterol 2.5 mg Q6HR NEB 03/21/25 18:00 03/31/25 11:22 2.5 MG Ipratropium Stevenson 0.5 mg Q6HWA NEB 03/21/25 18:00 03/31/25 11:22 0.5 MG Patient Own Medication 1 tab BID PO 03/21/25 22:00 03/31/25 10:19 1 TAB Throat Lozenges 1 liv Q2HP PRN MT 03/23/25 04:00 03/23/25 14:52 1 LIV Pantoprazole Sodium 40 mg DAILY IV 03/26/25 10:00 03/31/25 10:22 40 MG Magnesium Oxide 400 mg DAILY PO 03/27/25 10:00 03/31/25 10:22 400 MG Ertapenem 0.5 gm DAILY IM 03/27/25 11:15 Cancel Amino Acids 0 ml @ 0 mls/hr PER PHARMACY IV 03/27/25 12:00 Diagnostic Test (Pha) 1 strip Q6HR 03/27/25 18:00 03/31/25 17:43 1 STRIP Insulin Human Regular FOLLOW SLIDING SCALE Q6HR SC 03/27/25 18:00 03/31/25 17:44 2 UNITS Dextrose 50 ml UD IV 03/27/25 12:30 Norepinephrine Bitartrate 250 ml @ 0.938 mls/ hr Q24H IV 03/28/25 09:15 03/30/25 10:33 4.688 MLS/HR Amiodarone HCl 200 mg Q12HR PO 03/29/25 10:00 03/31/25 10:19 200 MG Fat Emulsion Intravenous 200 ml/Sodium Chloride 40 meq/ Sodium Acetate 40 meq/Potassium Chloride 40 meq/ Potassium Phosphate 11 meq/ Calcium Gluconate 2.32 meq/ Magnesium Sulfate 10 meq/ Multivitamins 10 ml/Chromium/ Copper/Manganese/ Zinc 1 ml/Amino Acids/Dextrose 1,420.9892 ml @ 59 mls/hr Q24H6M IV 03/30/25 22:00 03/31/25 21:59 03/30/25 20:48 59 MLS/HR Bumetanide 25 mg/ Miscellaneous 100 ml @ 6 mls/hr [id number] IV 03/31/25 09:45 03/31/25 10:25 6 MLS/HR Albumin Human 100 ml @ 100 mls/hr Q8H IV 03/31/25 09:45 04/01/25 02:44 03/31/25 17:43 100 MLS/HR Fat Emulsion Intravenous 200 ml/Sodium Chloride 60 meq/ Sodium Acetate 40 meq/Potassium Chloride 30 meq/ Potassium Phosphate 11 meq/ Calcium Gluconate 2.3 meq/Magnesium Sulfate 8 meq/ Multivitamins 10 ml/Chromium/ Copper/Manganese/ Zinc 1 ml/Amino Acids/Dextrose 1,520.4462 ml @ 63 mls/hr Q24H9M IV 03/31/25 22:00 04/01/25 21:59 Nystatin 1 applic DAILY TOP 04/01/25 10:00 objective General: Morbidly obese, not in acute distress HEENT: Dry but pink mucosa, no JVD or carotid bruits Lungs: Scattered bronchial sounds, no use of accessory muscles Cardiac: Irregular rhythm, no murmurs or thrills Abdomen: Obese, soft, no gross hepatomegaly (limited by body habitus) Extremities: 3+ bilateral lower extremity edema extending to abdominal wall Skin/Neuro: Bedbound, baseline functional quadriplegia laboratory and microbiology Laboratory Tests 03/31/25 03:00 Test 03/31/25 03:00 Range/Units Serum Glucose 125 H 74-106 mg/dL Assessment/Plan The patient is a 74-year-old female admitted on 03/20/2025 for abdominal pain, nausea, and vomiting, subsequently diagnosed with septic shock and admitted to the ICU. Cardiology was consulted on 03/24/2025 for cardiac management. The patient is well known to our practice from prior admissions. Her clinical course has been complicated by atrial fibrillation with RVR, anemia, pelvic abscess, hydronephrosis, and SCOT on CKD. She has a history of daily alcohol consumption (whiskey), type 2 pulmonary hypertension, chronic diastolic heart failure, and functional quadriplegiashe is bedbound at baseline with very poor functional capacity. She is morbidly obese, noncompliant with medications and follow-up. Patient also reports seeing a flight service specialist regularly and may be preparing for dialysis access creation. She denies chest pain and palpitations at present. During ICU stay, she developed atrial fibrillation with RVR, managed with IV amiodarone and rate control. She has a history of COPD/asthma with chronic respiratory failure and is on home oxygen. Past Medical History: Cardiac: Atrial fibrillation (on Eliquis outpatient), diastolic heart failure, type 2 pulmonary hypertension, hypertension, hyperlipidemia Pulmonary: COPD, asthma, chronic respiratory failure on home oxygen, pulmonary hypertension Renal: CKD stage 4, nephrology follow-up, possible fistula planning GI: Chronic alcohol use, GERD, history of abdominal surgeries, pelvic abscess, transaminitis, history of GI bleeding Hematologic: Anemia, thrombocytopenia (resolved after transfusion) Rheumatologic: Rheumatoid arthritis, osteoarthritis, gout Other: Morbid obesity, peripheral vascular disease, chronic lymphedema, neuropathy, history of multiple lower extremity fractures, status post right knee replacement, Recent Cardiac Workup: Echocardiogram: 01/03/2024 ([facility]): EF 60%, mild biatrial enlargement, mild MR/TR, RVSP 31 mmHg Echocardiogram: 09/2024 ([facility]):EF 5055%, dilated RV, severe biatrial enlargement, mild AI, moderate MR, moderate TR, RVSP 51 mmHg, ascending aorta 3.7 cm Echocardiogram 11/09/2024: EF 72%, mild RV enlargement, moderate biatrial enlargement, mild-moderate TR, mild MR, RVSP 54 mmHg Echcardiogram 02/23/2025: EF ~50%, mild concentric LVH, RV enlargement with preserved function, biatrial enlargement, mild AI, mild-moderate MR/TR, dilated IVC, RVSP 55 mmHg Assessment/Plan: Atrial fibrillation with RVR: Managed with oral amiodarone and rate control. Continue close telemetry monitoring. Diastolic heart failure / Type 2 pulmonary hypertension: Chronic, baseline poor functional status. No acute decompensation at this time. Continue volume management and guideline-directed medical therapy as tolerated. Chronic anticoagulation: Continue Eliquis if hemodynamically stable and no contraindication (i.e., active bleeding). Sepsis & shock: Being managed by the ICU and primary teams. Volume status: Being managed by Nephrology. Continue Bumex drip with electrolyte monitoring. Pulmonary hypertension: Known chronic issue; most recent RVSP 55 mmHg. Proceed with close observation for overt signs of fluid overload Proceed with strict intakes, outputs, and daily weights Proceed with close rate and rhythm surveillance Proceed with close hemodynamic surveillance Proceed with optimized blood pressure control Transfuse to sustain HGB levels above 7.0 Sustain Magnesium level greater than 2.0 Sustain Potassium level greater than 4.0 Follow up renal function and electrolytes Management in ICU Will proceed to follow from a cardiac perspective Further recommendations per clinical progression All available labs, EKGs, and images were personally reviewed Patient's status, findings, and plan of care was discussed and reviewed with supervising physician Dr. Damon, who is in agreement with current plan of care. Plan of care discussed with and agreed upon by patient/Primary RN. Prognosis: Guarded Thank you for allowing me to participate in the care of this patient. Further recommendations will depend on clinical progression, hospitalist, and other consultants. Will continue to follow with Primary. If you have any questions, please do not hesitate to contact me. A total of 75 minutes was spent reviewing the patient record, examining the patient, making a diagnostic and therapeutic plan, discussing this plan with medical personnel, following up on diagnostic studies and following the patient for clinical stability excluding any and all procedures. At least 50% of this time was spent in direct, [id number] contact. Dietary Evaluation Review Comments: Renal Specific 60g CCHO-60 Cardiac Diet d/t SCOT over CKD and low GFR Expected Outcomes/Goals: less uremic symptoms, better weight management Plan discussed with: Patient, Other (Primary RN) CC Plasma Assessment Blood Product Administration S: [id number] ELIER DOMINGO NP Mar 31, 2025 18:37
[2025-03-31] MEDS: NYSTATIN TOPICAL POWDER 15GM TOP ONE (18:40)
[2025-03-31] MEDS: TPN PER PHARMACY IV NR (22:00)
--- NOTE | 2025-03-31 22:27 | DVHPN2 ---
Progress Note - Dictate Date Seen: Mar 31, 2025 Has the PT tested + for MRSA If YES, has PT been informed?: No Medical Necessity Reason Pt with a Central, PICC or Fol: Yes The following are medically ne: Tijerina Catheter Reason for tijerina catheter: Strict I&O Subjective Patient seen and examined at bedside. Remains on supplemental oxygen Overnight events reviewed. vital signs Vital Sign Date Time Temp Pulse Resp B/P (MAP) Pulse Ox O2 Delivery O2 Flow Rate FiO2 03/31/25 22:16 81/34 03/31/25 22:00 97 12 94 03/31/25 20:00 Nasal Cannula* 2 28 03/31/25 19:45 98.1 98.1 Total Intake and Output 03/30/25 03/30/25 03/31/25 15:00 23:00 07:00 Intake Total 598.071 ml 1369.315 ml 793.063 ml Output Total 125 ml 220 ml Balance 598.071 ml 1244.315 ml 573.063 ml medications Current Medications Medications Dose Ordered Sig/Sravan Route Start Time Stop Time Status Last Admin Dose Admin Acetaminophen/ Hydrocodone Bitart 1 tab Q4HP PRN PO 03/20/25 12:15 03/30/25 00:45 1 TAB Ondansetron HCl 4 mg Q4HP PRN IV 03/20/25 12:15 03/26/25 08:18 4 MG Docusate Sodium 100 mg BIDPRN PRN PO 03/20/25 12:15 Acetaminophen 650 mg Q6HP PRN PO 03/20/25 12:15 03/28/25 10:59 650 MG Nitroglycerin 0.4 mg Q5MINP PRN SL 03/20/25 12:15 03/25/25 09:26 0.4 MG Morphine Sulfate 2 mg Q30M PRN IV 03/20/25 12:15 03/25/25 09:43 2 MG Allopurinol 100 mg DAILY PO 03/21/25 10:00 03/31/25 10:19 100 MG Apixaban 2.5 mg BID PO 03/20/25 22:00 03/31/25 10:18 2.5 MG Cilostazol 100 mg BID PO 03/20/25 22:00 03/31/25 13:30 100 MG Patient Own Medication 1 tab DAILY PO 03/21/25 10:00 UNV Patient Own Medication 1 tab DAILY PO 03/21/25 10:00 UNV Gabapentin 300 mg DAILY PO 03/21/25 10:00 03/31/25 10:18 300 MG Levothyroxine Sodium 112 mcg DAILY PO 03/21/25 10:00 03/31/25 10:18 112 MCG Levothyroxine Sodium 25 mcg DAILY PO 03/21/25 10:00 03/31/25 10:19 25 MCG Diphenhydramine HCl 50 mg [id number] PRN PO 03/21/25 16:45 03/21/25 22:57 50 MG Albuterol 2.5 mg Q6HR NEB 03/21/25 18:00 03/31/25 18:30 2.5 MG Ipratropium [place] 0.5 mg Q6HWA NEB 03/21/25 18:00 03/31/25 18:30 0.5 MG Patient Own Medication 1 tab BID PO 03/21/25 22:00 03/31/25 10:19 1 TAB Throat Lozenges 1 liv Q2HP PRN MT 03/23/25 04:00 03/23/25 14:52 1 LIV Pantoprazole Sodium 40 mg DAILY IV 03/26/25 10:00 03/31/25 10:22 40 MG Magnesium Oxide 400 mg DAILY PO 03/27/25 10:00 03/31/25 10:22 400 MG Ertapenem 0.5 gm DAILY IM 03/27/25 11:15 Cancel Amino Acids 0 ml @ 0 mls/hr PER PHARMACY IV 03/27/25 12:00 Diagnostic Test (Pha) 1 strip Q6HR 03/27/25 18:00 03/31/25 17:43 1 STRIP Insulin Human Regular FOLLOW SLIDING SCALE Q6HR SC 03/27/25 18:00 03/31/25 17:44 2 UNITS Dextrose 50 ml UD IV 03/27/25 12:30 Norepinephrine Bitartrate 250 ml @ 0.938 mls/ hr Q24H IV 03/28/25 09:15 03/30/25 10:33 4.688 MLS/HR Amiodarone HCl 200 mg Q12HR PO 03/29/25 10:00 03/31/25 10:19 200 MG Bumetanide 25 mg/ Miscellaneous 100 ml @ 6 mls/hr [id number] IV 03/31/25 09:45 03/31/25 18:24 6 MLS/HR Albumin Human 100 ml @ 100 mls/hr Q8H IV 03/31/25 09:45 04/01/25 02:44 03/31/25 17:43 100 MLS/HR Fat Emulsion Intravenous 200 ml/Sodium Chloride 60 meq/ Sodium Acetate 40 meq/Potassium Chloride 30 meq/ Potassium Phosphate 11 meq/ Calcium Gluconate 2.3 meq/Magnesium Sulfate 8 meq/ Multivitamins 10 ml/Chromium/ Copper/Manganese/ Zinc 1 ml/Amino Acids/Dextrose 1,520.4462 ml @ 63 mls/hr Q24H9M IV 03/31/25 22:00 04/01/25 21:59 Nystatin 1 applic DAILY TOP 04/01/25 10:00 objective Gen.: Patient lying in bed in no apparent distress. On supplemental oxygen. Head: Normocephalic, atraumatic. Eyes: EOMI/PERRLA. Ears: Normal hearing. Normal anatomy. Neck/trachea: Trachea midline, supple. Nose: Normal external anatomy. Mouth: Moist mucous membranes. Chest: Decreased air entry bilaterally. No wheezing or rhonchi. Cardiovascular: Positive S1, positive S2. Regular rate and rhythm. Abdomen: Positive bowel sounds in all 4 quadrants. Soft, non-tender, non- distended. : Deferred. Rectal: Deferred. Skin: Warm, dry. Intact. Extremities: 2+ radial pulses bilaterally. No lower extremity edema. Neuro: Awake, alert, oriented x3. No gross motor or sensory deficits. Cranial nerves II through XII intact. Gait not assessed. laboratory and microbiology Laboratory Tests 03/31/25 03:00 Test 03/31/25 03:00 Range/Units Serum Glucose 125 H 74-106 mg/dL Assessment/Plan Impression: Acute kidney injury Acute hypoxic respiratory failure Dependence on supplemental oxygen Chronic obstructive pulmonary disease Pneumonia Left hydronephrosis Septic shock Events: On supplemental oxygen 3 LPM via NC Taper O2 as tolerated On pressors for hemodynamic support Levophed 2.5 mcg/min Titrate to keep mean arterial pressure greater than 65 mmHg. Slightly increased pressor requirements - taper as tolerated Head of bed elevation Aspiration precautions Eliquis BID + Amiodarone for AFib Continue antibiotics Monitor WBC - trending down Continue bronchodilators Incentive spirometry Accu-Cheks, ISS. Protonix for GI ppx IV fluids Diurese with Bumex drip Albumin Monitor renal function - BUN 78-->85; Cr of 3.83-->4.12 Poor urine output Nephrology recommendations appreciated Monitor electrolytes. Supplement as necessary. Potassium, magnesium at goal. NPO TPN for nutritional support Pigtail drain placed for aspiration of left hemipelvic abscess (03/26) Cultures from drainage grew ESBL, Enterobacter cloacae. ID recommendations appreciated Monitor hemoglobin - currently 8.2 g/dL S/p 1 unit PRBC transfusion Pelvic drain with 20 ml serosanguineous output. Labs and imaging studies reviewed Plan Supplemental oxygen Titrate to keep O2 sats above 92%. Pressors as necessary for hemodynamic support Titrate to keep mean arterial pressure greater than 65 mmHg. Bronchodilators for COPD - stable Continue antibiotics F/u cultures Amiodarone/Eliquis for AFib Monitor WBC Monitor hemoglobin Monitor renal function Monitor electrolytes. Supplement as necessary. Monitor ins and outs. Maintain euvolemia. F/u with urology/urology and gen sx GI prophylaxis. DVT prophylaxis. Prognosis: Poor given patient's multiple co-morbidities. Condition: Critical Rest of plan per hospitalist and other consultants. A total of 35 minutes of critical care time was spent reviewing the patient record, examining the patient, making a diagnostic and therapeutic plan, discussing this plan with the medical personnel, following up on diagnostic studies and following the patient for clinical stability excluding any and all procedures. At least 50% of this time was spent in direct, [id number] contact. Thank you, Dr. Celis, for allowing me to participate in this patient's care. Further recommendations will depend on the patient's clinical course. Please do not hesitate to contact me if you have any questions or concerns. This medical document was created using an electronic medical record system with [employer] dictation system. Although these documentations are being carefully reviewed, there may still be some phonetic and typographical changes. The errors are purely typographical, due to imperfection on the software program, and do not reflect any compromise in the patient's medical care. Dietary Evaluation Review Comments: Renal Specific 60g CCHO-60 Cardiac Diet d/t SCOT over CKD and low GFR Expected Outcomes/Goals: less uremic symptoms, better weight management Plan discussed with: Other (BOSTON Levi) Critical Care Time(min): 35 CC Plasma Assessment Blood Product Administration S: [id number] PALOMO ROBLES MD Mar 31, 2025 22:27
[2025-04-01] VITALS (105 sets, daily range): BP systolic 82–147; BP diastolic 23–72; PULSE 85–112; RESP 10–24; TEMP 97.5–98; O2SAT 90–100
[2025-04-01 04:22] LABS: Alanine Aminotransferase 34 U/L (7-40); Albumin 3.9 g/dL (3.2-4.8); Alkaline Phosphatase 85 U/L (46-116); Anion Gap 11 (5-15); BUN/Creatinine Ratio 21.8 (10.0-20.0); Calcium 9.1 mg/dL (8.7-10.4); Carbon Dioxide 23 mmol/L (20-31); Chloride 101 mmol/L (98-107); Potassium 4.3 mmol/L (3.5-5.1); Total Protein 6.5 g/dL (5.7-8.2)
[2025-04-01 04:23] LABS: Bilirubin, Total 0.4 mg/dL (0.2-1.0)
[2025-04-01 04:25] LABS: Glucose 148 mg/dL (74-106); Sodium 135 mmol/L (136-145)
[2025-04-01 04:26] LABS: Magnesium 2.7 mg/dL (1.6-2.6)
[2025-04-01 04:27] LABS: Blood Urea Nitrogen 93 mg/dL (9-23)
--- NOTE | 2025-04-01 09:58 | DVHPN2 ---
Subjective Patient continues to have pain to left lower quadrant Reviewed: Care Plan, H&P, Labs, Medications, Previous Orders, Radiology Changes from previous H/P or p: No Changes General: Per HPI Eyes: No Pain, No Vision change, No Conjunctivae inflammation, No Eyelid inflammation, No Other, No Redness ENT: No Ear pain, No Ear discharge, No Nose pain, No Nose discharge, No Nose congestion, No Mouth pain, No Mouth swelling, No Throat pain, No Throat swelling, No Other Cardiovascular: No Chest Pain, No Palpitations, No Orthopnea, No Paroxysmal Noc. Dyspnea, No Edema, No Lt Headedness, No Other Respiratory: No Cough, No Dry, No Shortness of breath, No SOB with excertion, No Wheezing, No Hemoptysis, No Pleuritic Pain, No Sputum, No Other Gastrointestinal: Nausea, Vomiting, Abdominal Pain Genitourinary: No Dysuria, No Frequency, No Incontinence, No Hematuria, No Retention, No Other Musculoskeletal: No other, No neck pain, No shoulder pain, No arm pain, No back pain, No hand pain, No leg pain, No foot pain Skin: No Rash, No Lesions, No Jaundice, No Bruising, No Other Objective Vitals Vital Signs Date Time Temp Pulse Resp B/P (MAP) Pulse Ox O2 Delivery O2 Flow Rate FiO2 04/01/25 09:30 98 24 113/48 (69) 90 04/01/25 08:00 Nasal Cannula* 2 28 04/01/25 08:00 97.7 97.7 Intake/Output Intake and Output 04/01/25 07:00 Intake Total 2272.236 ml Output Total 510 ml Balance 1762.236 ml Intake Oral 200 ml IV Total 2072.236 ml Output Urine Total 500 ml Drainage Total 10 ml General Appearance: Alert, Oriented X3, Cooperative, Other HEENT: Atraumatic, PERRLA Cardiovascular: Normal S1, Normal S2, Other Abdomen: Normal bowel sounds, Other Extremities: No edema, Normal pulses Neuro: Sensation intact, Cranial nerves 3-12 NL Skin: Dry, Intact Psych/Mental Status: Mental status NL, Mood NL Medications Current Medications Medications Dose Ordered Sig/Sravan Route Start Time Stop Time Status Last Admin Dose Admin Acetaminophen/ Hydrocodone Bitart 1 tab Q4HP PRN PO 03/20/25 12:15 03/30/25 00:45 1 TAB Ondansetron HCl 4 mg Q4HP PRN IV 03/20/25 12:15 03/26/25 08:18 4 MG Docusate Sodium 100 mg BIDPRN PRN PO 03/20/25 12:15 Acetaminophen 650 mg Q6HP PRN PO 03/20/25 12:15 03/28/25 10:59 650 MG Nitroglycerin 0.4 mg Q5MINP PRN SL 03/20/25 12:15 03/25/25 09:26 0.4 MG Morphine Sulfate 2 mg Q30M PRN IV 03/20/25 12:15 03/25/25 09:43 2 MG Allopurinol 100 mg DAILY PO 03/21/25 10:00 03/31/25 10:19 100 MG Apixaban 2.5 mg BID PO 03/20/25 22:00 03/31/25 22:30 2.5 MG Cilostazol 100 mg BID PO 03/20/25 22:00 03/31/25 22:29 100 MG Patient Own Medication 1 tab DAILY PO 03/21/25 10:00 UNV Patient Own Medication 1 tab DAILY PO 03/21/25 10:00 UNV Gabapentin 300 mg DAILY PO 03/21/25 10:00 03/31/25 10:18 300 MG Levothyroxine Sodium 112 mcg DAILY PO 03/21/25 10:00 03/31/25 10:18 112 MCG Levothyroxine Sodium 25 mcg DAILY PO 03/21/25 10:00 03/31/25 10:19 25 MCG Diphenhydramine HCl 50 mg [id number] PRN PO 03/21/25 16:45 03/21/25 22:57 50 MG Albuterol 2.5 mg Q6HR NEB 03/21/25 18:00 04/01/25 06:15 2.5 MG Ipratropium [place] 0.5 mg Q6HWA NEB 03/21/25 18:00 04/01/25 06:15 0.5 MG Patient Own Medication 1 tab BID PO 03/21/25 22:00 03/31/25 22:00 1 TAB Throat Lozenges 1 liv Q2HP PRN MT 03/23/25 04:00 03/23/25 14:52 1 LIV Pantoprazole Sodium 40 mg DAILY IV 03/26/25 10:00 03/31/25 10:22 40 MG Magnesium Oxide 400 mg DAILY PO 03/27/25 10:00 03/31/25 10:22 400 MG Ertapenem 0.5 gm DAILY IM 03/27/25 11:15 Cancel Amino Acids 0 ml @ 0 mls/hr PER PHARMACY IV 03/27/25 12:00 Diagnostic Test (Pha) 1 strip Q6HR 03/27/25 18:00 04/01/25 05:31 1 STRIP Insulin Human Regular FOLLOW SLIDING SCALE Q6HR SC 03/27/25 18:00 04/01/25 00:00 2 UNITS Dextrose 50 ml UD IV 03/27/25 12:30 Norepinephrine Bitartrate 250 ml @ 0.938 mls/ hr Q24H IV 03/28/25 09:15 04/01/25 08:56 6.563 MLS/HR Amiodarone HCl 200 mg Q12HR PO 03/29/25 10:00 03/31/25 22:29 200 MG Bumetanide 25 mg/ Miscellaneous 100 ml @ 6 mls/hr [id number] IV 03/31/25 09:45 04/01/25 08:56 6 MLS/HR Fat Emulsion Intravenous 200 ml/Sodium Chloride 60 meq/ Sodium Acetate 40 meq/Potassium Chloride 30 meq/ Potassium Phosphate 11 meq/ Calcium Gluconate 2.3 meq/Magnesium Sulfate 8 meq/ Multivitamins 10 ml/Chromium/ Copper/Manganese/ Zinc 1 ml/Amino Acids/Dextrose 1,520.4462 ml @ 63 mls/hr Q24H9M IV 03/31/25 22:00 04/01/25 21:59 03/31/25 22:00 63 MLS/HR Nystatin 1 applic DAILY TOP 04/01/25 10:00 Laboratory Results Laboratory Tests 03/31/25 03:00 04/01/25 03:30 Chemistry Test 04/01/25 03:30 Albumin 3.9 g/dL (3.2-4.8) Calcium Level 9.1 mg/dL (8.7-10.4) Magnesium Level 2.7 mg/dL (1.6-2.6) H Phosphorus Level 3.4 mg/dL (2.4-5.1) Total Protein 6.5 g/dL (5.7-8.2) LFT Test 04/01/25 03:30 Alanine Aminotransferase (ALT) 34 U/L (7-40) Alkaline Phosphatase 85 U/L (46-116) Aspartate Amino Transferase (AST) < 8 U/L (13-40) L Total Bilirubin 0.4 mg/dL (0.2-1.0) Urinalysis Test 03/20/25 09:34 Urine Color Colorless (Yellow) Urine Clarity Turbid (Clear) H Urine pH 5.0 (5.0-9.0) Urine Specific [place] 1.015 (1.001-1.035) Urine Protein Negative (Negative) Urine Ketones Negative (Negative) Urine Blood Negative /uL (Negative) Urine Nitrite Negative (Negative) Urine Bilirubin Negative (Negative) Urine Urobilinogen Normal mg/dL (Negative) Urine Leukocyte Esterase 3+ /uL (Negative) Urine RBC 1 /hpf (0 - 4) Urine Microscopic WBC 255 /HPF (0-5) H Urine Squamous Epithelial Cells Few /hpf (<5) Urine Bacteria Few /hpf (None Seen) H Urine Glucose Normal mg/dL (Normal) Microbiology Microbiology Date/Time Source Procedure Growth Status 03/26/25 15:00 Aspirate Gram Stain - Final Complete 03/26/25 15:00 Body Fluid Culture - Final Escherichia coli - ESBL Enterobacter cloacae Proteus mirabilis Complete 03/23/25 04:30 Throat Nose/Throat Culture - Final Complete 03/21/25 18:00 Urine - Catheterized Urine Culture - Final Escherichia coli - ESBL Klebsiella pneumoniae - ESBL Complete 03/20/25 21:52 Nose MRSA Screen - Final Complete Labs and/or images reviewed: Labs reviewed by me, Image(s) reviewed by me Assessment/Plan Assessment/Plan 03/30.-74-year-old female. She is here for sepsis secondary to diverticular abscess. Surgery following and IR has placed a draining tube into abscess. Is draining about 10-30 cc serosanguineous fluid. This morning patient's hemoglobin is low 7.1 no obvious signs of active hemorrhage. Patient is on Eliquis for AFib RVR cardiology following and nephrology following. Patient is in acute decompensated heart failure. This PM we will repeat hemoglobin and repeat type and screen in case patient needs another unit PRBC. Patient is on broad-spectrum antibiotic meropenem. Patient's amiodarone has been converted from IV to p.o.. Nephrology is directing diuresis which is inadequate right now which is only urine output of 300 cc per 24 hours. We will follow up with Nephrology. No feeds right now as per primary team's plan. Continue TPN. Patient remains on Levophed at 2. Bumex at 0.5. Patient complains of mild discomfort in drain insertion site with cough. Drain dressing CDI. 03/31- Levophed is down to 1. Bumex at 1. Nephrology wants to do trial of albumin. No metolazone. Holding off changes to vasopressors i.e. dopa. Patient is still not making enough urine. Patient remains severely edematous and now starting to have weeping. Poor dialysis candidate. Hemoglobin stable today. Holding off any feeds until Wednesday. Amiodarone is p.o.. Continue Eliquis anticoagulation. 04/01. Night team had to go up on Levophed. This a.m. we are trying to wean again. Levophed 2.5. Bumex 1.5. Albumin has been stopped now. Patient is still making very minimal urine 300 cc 24 hours. On exam is still severely volume overload pitting edema. Diminished breath sounds. Oxygen is up to 3 L required as she desaturates during sleep. Defer diuresis to nephro. Otherwise continue primary team's plan. Impression: -septic shock -diverticular abscess -AFib with RVR -morbid obesity -obstructive uropathy -CKD stage 4 -acute kidney injury, vasomotor nephropathy -acute on chronic systolic and diastolic heart failure -bed-bound status -complicated cystitis with ESBL in the urine. Plan: -antibiotic therapy to Meropenem -continue rate control with IV amiodarone. Switch to p.o. per Cardiology -status post IR drain placement diverticular abscess. -repeat renal ultrasound reveals that hydronephrosis has resolved. Further course of care per Urology -surgical consultation: Recommendations reviewed -continue anticoagulation with Eliquis -continue feeds - Bumex drip per Nephrology, - weaning Levophed Critical care time spent with patient discussing and formulating plan of care: 40 minutes. This does not include time spent performing procedures. Plan discussed with: Patient, Other My Orders Orders - JOSÉ MANUEL LINTON MD Procedure Category Date Status Time Nystatin Powder PHA 04/01/25 In Process (Mycostatin Powder) 10:00 Date of Service: Apr 01, 2025 Billing Provider: JOSÉ MANUEL LINTON MD Common Visit Codes: [id number] CARE 30-74 MIN JOSÉ MANUEL LINTON MD Apr 01, 2025 09:58
[2025-04-01] MEDS: NYSTATIN TOPICAL POWDER 15GM TOP SCH (10:34)
--- NOTE | 2025-04-01 16:06 | DVHPN2 ---
Progress Note - Dictate Date Seen: Apr 01, 2025 Has the PT tested + for MRSA If YES, has PT been informed?: No Medical Necessity Reason Pt with a Central, PICC or Fol: Yes The following are medically ne: Tijerina Catheter Reason for tijerina catheter: Strict I&O Subjective The patient was seen and examined at the bedside in the ICU. Tele shows occasional PVCs, K 4.3 Mg 2.0, Vital signs were stable. She is in atrial fibrillation with a controlled ventricular rate at 89 bpm. Bumex infusion continued at 6 mL/hour. Nephrology is managing volume status; there is currently no plan for dialysis. Chart reviewed. Patient's medications, allergies, past medical, surgical, social and family histories were obtained and reviewed as appropriate. vital signs Vital Sign Date Time Temp Pulse Resp B/P (MAP) Pulse Ox O2 Delivery O2 Flow Rate FiO2 04/01/25 15:00 103/48 04/01/25 14:45 112 19 97 04/01/25 14:00 Nasal Cannula* 3 32 04/01/25 12:00 97.9 97.9 Total Intake and Output 03/31/25 03/31/25 04/01/25 15:00 23:00 07:00 Intake Total 659.765 ml 804.801 ml 807.67 ml Output Total 205 ml 305 ml Balance 659.765 ml 599.801 ml 502.67 ml medications Current Medications Medications Dose Ordered Sig/Sravan Route Start Time Stop Time Status Last Admin Dose Admin Acetaminophen/ Hydrocodone Bitart 1 tab Q4HP PRN PO 03/20/25 12:15 03/30/25 00:45 1 TAB Ondansetron HCl 4 mg Q4HP PRN IV 03/20/25 12:15 03/26/25 08:18 4 MG Docusate Sodium 100 mg BIDPRN PRN PO 03/20/25 12:15 Acetaminophen 650 mg Q6HP PRN PO 03/20/25 12:15 03/28/25 10:59 650 MG Nitroglycerin 0.4 mg Q5MINP PRN SL 03/20/25 12:15 03/25/25 09:26 0.4 MG Morphine Sulfate 2 mg Q30M PRN IV 03/20/25 12:15 03/25/25 09:43 2 MG Allopurinol 100 mg DAILY PO 03/21/25 10:00 04/01/25 10:33 100 MG Apixaban 2.5 mg BID PO 03/20/25 22:00 04/01/25 10:33 2.5 MG Cilostazol 100 mg BID PO 03/20/25 22:00 04/01/25 10:34 100 MG Patient Own Medication 1 tab DAILY PO 03/21/25 10:00 UNV Patient Own Medication 1 tab DAILY PO 03/21/25 10:00 UNV Gabapentin 300 mg DAILY PO 03/21/25 10:00 04/01/25 10:33 300 MG Levothyroxine Sodium 112 mcg DAILY PO 03/21/25 10:00 04/01/25 10:32 112 MCG Levothyroxine Sodium 25 mcg DAILY PO 03/21/25 10:00 04/01/25 10:33 25 MCG Diphenhydramine HCl 50 mg [id number] PRN PO 03/21/25 16:45 03/21/25 22:57 50 MG Albuterol 2.5 mg Q6HR NEB 03/21/25 18:00 04/01/25 11:18 2.5 MG Ipratropium [place] 0.5 mg Q6HWA NEB 03/21/25 18:00 04/01/25 11:18 0.5 MG Patient Own Medication 1 tab BID PO 03/21/25 22:00 04/01/25 10:34 1 TAB Throat Lozenges 1 liv Q2HP PRN MT 03/23/25 04:00 03/23/25 14:52 1 LIV Pantoprazole Sodium 40 mg DAILY IV 03/26/25 10:00 04/01/25 10:32 40 MG Magnesium Oxide 400 mg DAILY PO 03/27/25 10:00 03/31/25 10:22 400 MG Ertapenem 0.5 gm DAILY IM 03/27/25 11:15 Cancel Amino Acids 0 ml @ 0 mls/hr PER PHARMACY IV 03/27/25 12:00 Diagnostic Test (Pha) 1 strip Q6HR 03/27/25 18:00 04/01/25 12:21 1 STRIP Insulin Human Regular FOLLOW SLIDING SCALE Q6HR SC 03/27/25 18:00 04/01/25 00:00 2 UNITS Dextrose 50 ml UD IV 03/27/25 12:30 Norepinephrine Bitartrate 250 ml @ 0.938 mls/ hr Q24H IV 03/28/25 09:15 04/01/25 08:56 6.563 MLS/HR Amiodarone HCl 200 mg Q12HR PO 03/29/25 10:00 04/01/25 10:33 200 MG Bumetanide 25 mg/ Miscellaneous 100 ml @ 6 mls/hr [id number] IV 03/31/25 09:45 04/01/25 08:56 6 MLS/HR Fat Emulsion Intravenous 200 ml/Sodium Chloride 60 meq/ Sodium Acetate 40 meq/Potassium Chloride 30 meq/ Potassium Phosphate 11 meq/ Calcium Gluconate 2.3 meq/Magnesium Sulfate 8 meq/ Multivitamins 10 ml/Chromium/ Copper/Manganese/ Zinc 1 ml/Amino Acids/Dextrose 1,520.4462 ml @ 63 mls/hr Q24H9M IV 03/31/25 22:00 04/01/25 21:59 03/31/25 22:00 63 MLS/HR Nystatin 1 applic DAILY TOP 04/01/25 10:00 04/01/25 10:34 1 APPLIC Fat Emulsion Intravenous 200 ml/Sodium Chloride 80 meq/ Sodium Acetate 40 meq/Calcium Gluconate 1.65 meq/Multivitamins 10 ml/Chromium/ Copper/Manganese/ Zinc 1 ml/Amino Acids/Dextrose 1,504.5483 ml @ 63 mls/hr [id number] IV 04/01/25 22:00 04/02/25 21:59 objective General: Morbidly obese, not in acute distress HEENT: Dry but pink mucosa, no JVD or carotid bruits Lungs: Scattered bronchial sounds, no use of accessory muscles Cardiac: Irregular rhythm, no murmurs or thrills Abdomen: Obese, soft, no gross hepatomegaly (limited by body habitus) Extremities: 3+ bilateral lower extremity edema extending to abdominal wall Skin/Neuro: Bedbound, baseline functional quadriplegia laboratory and microbiology Laboratory Tests 04/01/25 03:30 03/31/25 03:00 Test 04/01/25 03:30 Range/Units Serum Glucose 148 H 74-106 mg/dL Assessment/Plan The patient is a 74-year-old female admitted on 03/20/2025 for abdominal pain, nausea, and vomiting, subsequently diagnosed with septic shock and admitted to the ICU. Cardiology was consulted on 03/24/2025 for cardiac management. The patient is well known to our practice from prior admissions. Her clinical course has been complicated by atrial fibrillation with RVR, anemia, pelvic abscess, hydronephrosis, and SCOT on CKD. She has a history of daily alcohol consumption (whiskey), type 2 pulmonary hypertension, chronic diastolic heart failure, she is bedbound at baseline with very poor functional capacity. She is morbidly obese, noncompliant with medications and follow-up. Patient also reports seeing a matlab developer regularly and may be preparing for dialysis access creation. She denies chest pain and palpitations at present. During ICU stay, she developed atrial fibrillation with RVR, managed with IV amiodarone and rate control. She has a history of COPD/asthma with chronic respiratory failure and is on home oxygen. Past Medical History: Cardiac: Atrial fibrillation (on Eliquis outpatient), diastolic heart failure, type 2 pulmonary hypertension, hypertension, hyperlipidemia Pulmonary: COPD, asthma, chronic respiratory failure on home oxygen, pulmonary hypertension Renal: CKD stage 4, nephrology follow-up, possible fistula planning GI: Chronic alcohol use, GERD, history of abdominal surgeries, pelvic abscess, transaminitis, history of GI bleeding Hematologic: Anemia, thrombocytopenia (resolved after transfusion) Rheumatologic: Rheumatoid arthritis, osteoarthritis, gout Other: Morbid obesity, peripheral vascular disease, chronic lymphedema, neuropathy, history of multiple lower extremity fractures, status post right knee replacement, Recent Cardiac Workup: Echocardiogram: 01/03/2024 ([facility]): EF 60%, mild biatrial enlargement, mild MR/TR, RVSP 31 mmHg Echocardiogram: 09/2024 ([facility]):EF 5055%, dilated RV, severe biatrial enlargement, mild AI, moderate MR, moderate TR, RVSP 51 mmHg, ascending aorta 3.7 cm Echocardiogram 11/09/2024: EF 72%, mild RV enlargement, moderate biatrial enlargement, mild-moderate TR, mild MR, RVSP 54 mmHg Echcardiogram 02/23/2025: EF ~50%, mild concentric LVH, RV enlargement with preserved function, biatrial enlargement, mild AI, mild-moderate MR/TR, dilated IVC, RVSP 55 mmHg Assessment/Plan: Atrial fibrillation with RVR: Managed with oral amiodarone and rate control. Continue close telemetry monitoring. Diastolic heart failure / Type 2 pulmonary hypertension: Chronic, baseline poor functional status. No acute decompensation at this time. Continue volume management and guideline-directed medical therapy as tolerated. Chronic anticoagulation: Continue Eliquis if hemodynamically stable and no contraindication (i.e., active bleeding). Sepsis & shock: Being managed by the ICU and primary teams. Volume status: Being managed by Nephrology. Continue Bumex drip with electrolyte monitoring. Pulmonary hypertension: Known chronic issue; most recent RVSP 55 mmHg. Proceed with close observation for overt signs of fluid overload Proceed with strict intakes, outputs, and daily weights Proceed with close rate and rhythm surveillance Proceed with close hemodynamic surveillance Proceed with optimized blood pressure control Transfuse to sustain HGB levels above 7.0 Sustain Magnesium level greater than 2.0 Sustain Potassium level greater than 4.0 Follow up renal function and electrolytes Management in ICU Will proceed to follow from a cardiac perspective Further recommendations per clinical progression All available labs, EKGs, and images were personally reviewed Patient's status, findings, and plan of care was discussed and reviewed with supervising physician Dr. Damon, who is in agreement with current plan of care. Plan of care discussed with and agreed upon by patient/Primary RN. Prognosis: Guarded Thank you for allowing me to participate in the care of this patient. Further recommendations will depend on clinical progression, hospitalist, and other consultants. Will continue to follow with Primary. If you have any questions, please do not hesitate to contact me. A total of 75 minutes was spent reviewing the patient record, examining the patient, making a diagnostic and therapeutic plan, discussing this plan with medical personnel, following up on diagnostic studies and following the patient for clinical stability excluding any and all procedures. At least 50% of this time was spent in direct, [id number] contact. Dietary Evaluation Review Comments: Renal Specific 60g CCHO-60 Cardiac Diet d/t SCOT over CKD and low GFR Expected Outcomes/Goals: less uremic symptoms, better weight management Plan discussed with: Patient CC Plasma Assessment Blood Product Administration S: [id number] ELIER DOMINGO NP Apr 01, 2025 16:06
--- NOTE | 2025-04-01 20:03 | DVHPN2 ---
Progress Note - Dictate Date Seen: Apr 01, 2025 Has the PT tested + for MRSA If YES, has PT been informed?: No Medical Necessity Reason Pt with a Central, PICC or Fol: Yes The following are medically ne: Tijerina Catheter Reason for tijerina catheter: Strict I&O Subjective Continues to be on Levophed. Urine output continues to be marginal. Patient is on Bumex at 1.5 milligrams/hour. vital signs Vital Sign Date Time Temp Pulse Resp B/P (MAP) Pulse Ox O2 Delivery O2 Flow Rate FiO2 04/01/25 19:01 95 14 100 04/01/25 18:51 Nasal Cannula 3.0 04/01/25 18:51 32 04/01/25 18:45 88/44 (59) 04/01/25 16:00 98.0 98.0 Total Intake and Output 03/31/25 03/31/25 04/01/25 15:00 23:00 07:00 Intake Total 659.765 ml 804.801 ml 807.67 ml Output Total 205 ml 305 ml Balance 659.765 ml 599.801 ml 502.67 ml medications Current Medications Medications Dose Ordered Sig/Sravan Route Start Time Stop Time Status Last Admin Dose Admin Acetaminophen/ Hydrocodone Bitart 1 tab Q4HP PRN PO 03/20/25 12:03/30/25 00:45 1 TAB Ondansetron HCl 4 mg Q4HP PRN IV 03/20/25 12:15 03/26/25 08:18 4 MG Docusate Sodium 100 mg BIDPRN PRN PO 03/20/25 12:15 Acetaminophen 650 mg Q6HP PRN PO 03/20/25 12:15 03/28/25 10:59 650 MG Nitroglycerin 0.4 mg Q5MINP PRN SL 03/20/25 12:15 03/25/25 09:26 0.4 MG Morphine Sulfate 2 mg Q30M PRN IV 03/20/25 12:15 03/25/25 09:43 2 MG Allopurinol 100 mg DAILY PO 03/21/25 10:00 04/01/25 10:33 100 MG Apixaban 2.5 mg BID PO 03/20/25 22:00 04/01/25 10:33 2.5 MG Cilostazol 100 mg BID PO 03/20/25 22:00 04/01/25 10:34 100 MG Patient Own Medication 1 tab DAILY PO 03/21/25 10:00 UNV Patient Own Medication 1 tab DAILY PO 03/21/25 10:00 UNV Gabapentin 300 mg DAILY PO 03/21/25 10:00 04/01/25 10:33 300 MG Levothyroxine Sodium 112 mcg DAILY PO 03/21/25 10:00 04/01/25 10:32 112 MCG Levothyroxine Sodium 25 mcg DAILY PO 03/21/25 10:00 04/01/25 10:33 25 MCG Diphenhydramine HCl 50 mg [id number] PRN PO 03/21/25 16:45 03/21/25 22:57 50 MG Albuterol 2.5 mg Q6HR NEB 03/21/25 18:00 04/01/25 18:52 2.5 MG Ipratropium [place] 0.5 mg Q6HWA NEB 03/21/25 18:00 04/01/25 18:52 0.5 MG Patient Own Medication 1 tab BID PO 03/21/25 22:00 04/01/25 10:34 1 TAB Throat Lozenges 1 liv Q2HP PRN MT 03/23/25 04:00 03/23/25 14:52 1 LIV Pantoprazole Sodium 40 mg DAILY IV 03/26/25 10:00 04/01/25 10:32 40 MG Magnesium Oxide 400 mg DAILY PO 03/27/25 10:00 03/31/25 10:22 400 MG Ertapenem 0.5 gm DAILY IM 03/27/25 11:15 Cancel Amino Acids 0 ml @ 0 mls/hr PER PHARMACY IV 03/27/25 12:00 Diagnostic Test (Pha) 1 strip Q6HR 03/27/25 18:00 04/01/25 17:47 1 STRIP Insulin Human Regular FOLLOW SLIDING SCALE Q6HR SC 03/27/25 18:00 04/01/25 18:33 2 UNITS Dextrose 50 ml UD IV 03/27/25 12:30 Norepinephrine Bitartrate 250 ml @ 0.938 mls/ hr Q24H IV 03/28/25 09:15 04/01/25 08:56 6.563 MLS/HR Amiodarone HCl 200 mg Q12HR PO 03/29/25 10:00 04/01/25 10:33 200 MG Bumetanide 25 mg/ Miscellaneous 100 ml @ 6 mls/hr [id number] IV 03/31/25 09:45 04/01/25 08:56 6 MLS/HR Fat Emulsion Intravenous 200 ml/Sodium Chloride 60 meq/ Sodium Acetate 40 meq/Potassium Chloride 30 meq/ Potassium Phosphate 11 meq/ Calcium Gluconate 2.3 meq/Magnesium Sulfate 8 meq/ Multivitamins 10 ml/Chromium/ Copper/Manganese/ Zinc 1 ml/Amino Acids/Dextrose 1,520.4462 ml @ 63 mls/hr Q24H9M IV 03/31/25 22:00 04/01/25 21:59 03/31/25 22:00 63 MLS/HR Nystatin 1 applic DAILY TOP 04/01/25 10:00 04/01/25 10:34 1 APPLIC Fat Emulsion Intravenous 200 ml/Sodium Chloride 80 meq/ Sodium Acetate 40 meq/Calcium Gluconate 1.65 meq/Multivitamins 10 ml/Chromium/ Copper/Manganese/ Zinc 1 ml/Amino Acids/Dextrose 1,504.5483 ml @ 63 mls/hr [id number] IV 04/01/25 22:00 04/02/25 21:59 objective Patient was resting comfortably in no acute distress HEENT: Normocephalic, no JVD Lungs: Bilateral good air entry CVS: S1, S2 regular rate rhythm Abdomen: Soft, bowel sounds present FOAM TANK LAMINATOR: No focal deficits Extremities: 3+ Edema present laboratory and microbiology Laboratory Tests 04/01/25 03:30 03/31/25 03:00 Test 04/01/25 03:30 Range/Units Serum Glucose 148 H 74-106 mg/dL Problem List Acute kidney injury superimposed on CKD 4 Sepsis with a urine culture growing E coli and Klebsiella both of which are ESBL . Wound culture with E coli ESBL Septic shock Status post drainage of left pelvic abscess Left hydronephrosis which has a resolved Acute on chronic diastolic heart failure Anemia status post transfusion of PRBC Pulmonary hypertension Atrial fibrillation Bed-bound patient Assessment/Plan I did discuss with the patient the need for dialysis as she is not responding to high doses of Bumex. Patient hesitant on starting dialysis. Would want to continue with the medical management for now. Increase Bumex to 2 milligrams/hour. Overall prognosis of the patient does garden. Dietary Evaluation Review Comments: Renal Specific 60g CCHO-60 Cardiac Diet d/t SCOT over CKD and low GFR Expected Outcomes/Goals: less uremic symptoms, better weight management Plan discussed with: Patient CC Plasma Assessment Blood Product Administration S: [id number] VÍCTOR JUDGE MD Apr 01, 2025 20:03
[2025-04-01] MEDS: BUMETANIDE INJECTION 25 MG in GIVE UN-DILUTED 0 ML IV SCH (20:15)
[2025-04-01 20:37] LABS: Hematocrit 23.3 % (36.0-46.0); Hemoglobin 7.6 g/dL (12.2-16.2); Mean Corpuscular Hemoglobin 28.3 pg (28.0-32.0); Mean Corpuscular Volume 86.5 fL (80.0-100.0); Nucleated Red Blood Cells % 0.1 %
[2025-04-01] MEDS: TPN PER PHARMACY IV NR (21:50)
--- NOTE | 2025-04-01 23:47 | DVHPN2 ---
Progress Note - Dictate Date Seen: Apr 01, 2025 Has the PT tested + for MRSA If YES, has PT been informed?: No Medical Necessity Reason Pt with a Central, PICC or Fol: Yes The following are medically ne: Tijerina Catheter Reason for tijerina catheter: Strict I&O Subjective Patient seen and examined at bedside. Remains on supplemental oxygen Overnight events reviewed. vital signs Vital Sign Date Time Temp Pulse Resp B/P (MAP) Pulse Ox O2 Delivery O2 Flow Rate FiO2 04/01/25 23:00 95 12 100/42 (61) 95 04/01/25 22:00 Nasal Cannula* 3 32 04/01/25 20:00 97.5 97.5 Total Intake and Output 03/31/25 03/31/25 04/01/25 15:00 23:00 07:00 Intake Total 659.765 ml 804.801 ml 807.67 ml Output Total 205 ml 305 ml Balance 659.765 ml 599.801 ml 502.67 ml medications Current Medications Medications Dose Ordered Sig/Sravan Route Start Time Stop Time Status Last Admin Dose Admin Acetaminophen/ Hydrocodone Bitart 1 tab Q4HP PRN PO 03/20/25 12:15 03/30/25 00:45 1 TAB Ondansetron HCl 4 mg Q4HP PRN IV 03/20/25 12:15 03/26/25 08:18 4 MG Docusate Sodium 100 mg BIDPRN PRN PO 03/20/25 12:15 Acetaminophen 650 mg Q6HP PRN PO 03/20/25 12:15 03/28/25 10:59 650 MG Nitroglycerin 0.4 mg Q5MINP PRN SL 03/20/25 12:15 03/25/25 09:26 0.4 MG Morphine Sulfate 2 mg Q30M PRN IV 03/20/25 12:15 03/25/25 09:43 2 MG Allopurinol 100 mg DAILY PO 03/21/25 10:00 04/01/25 10:33 100 MG Apixaban 2.5 mg BID PO 03/20/25 22:00 04/01/25 21:49 2.5 MG Cilostazol 100 mg BID PO 03/20/25 22:00 04/01/25 21:49 100 MG Patient Own Medication 1 tab DAILY PO 03/21/25 10:00 UNV Patient Own Medication 1 tab DAILY PO 03/21/25 10:00 UNV Gabapentin 300 mg DAILY PO 03/21/25 10:00 04/01/25 10:33 300 MG Levothyroxine Sodium 112 mcg DAILY PO 03/21/25 10:00 04/01/25 10:32 112 MCG Levothyroxine Sodium 25 mcg DAILY PO 03/21/25 10:00 04/01/25 10:33 25 MCG Diphenhydramine HCl 50 mg [id number] PRN PO 03/21/25 16:45 03/21/25 22:57 50 MG Albuterol 2.5 mg Q6HR NEB 03/21/25 18:00 04/01/25 18:52 2.5 MG Ipratropium [place] 0.5 mg Q6HWA NEB 03/21/25 18:00 04/01/25 18:52 0.5 MG Patient Own Medication 1 tab BID PO 03/21/25 22:00 04/01/25 21:49 1 TAB Throat Lozenges 1 liv Q2HP PRN MT 03/23/25 04:00 03/23/25 14:52 1 LIV Pantoprazole Sodium 40 mg DAILY IV 03/26/25 10:00 04/01/25 10:32 40 MG Magnesium Oxide 400 mg DAILY PO 03/27/25 10:00 03/31/25 10:22 400 MG Ertapenem 0.5 gm DAILY IM 03/27/25 11:15 Cancel Amino Acids 0 ml @ 0 mls/hr PER PHARMACY IV 03/27/25 12:00 Diagnostic Test (Pha) 1 strip Q6HR 03/27/25 18:00 04/01/25 17:47 1 STRIP Insulin Human Regular FOLLOW SLIDING SCALE Q6HR SC 03/27/25 18:00 04/01/25 18:33 2 UNITS Dextrose 50 ml UD IV 03/27/25 12:30 Norepinephrine Bitartrate 250 ml @ 0.938 mls/ hr Q24H IV 03/28/25 09:15 04/01/25 22:23 6.563 MLS/HR Amiodarone HCl 200 mg Q12HR PO 03/29/25 10:00 04/01/25 21:48 200 MG Nystatin 1 applic DAILY TOP 04/01/25 10:00 04/01/25 10:34 1 APPLIC Fat Emulsion Intravenous 200 ml/Sodium Chloride 80 meq/ Sodium Acetate 40 meq/Calcium Gluconate 1.65 meq/Multivitamins 10 ml/Chromium/ Copper/Manganese/ Zinc 1 ml/Amino Acids/Dextrose 1,504.5483 ml @ 63 mls/hr [id number] IV 04/01/25 22:00 04/02/25 21:59 04/01/25 21:50 63 MLS/HR Bumetanide 25 mg/ Miscellaneous 100 ml @ 8 mls/hr [id number] IV 04/01/25 20:15 04/01/25 20:15 8 MLS/HR objective Gen.: Patient lying in bed in no apparent distress. On supplemental oxygen. Head: Normocephalic, atraumatic. Eyes: EOMI/PERRLA. Ears: Normal hearing. Normal anatomy. Neck/trachea: Trachea midline, supple. Nose: Normal external anatomy. Mouth: Moist mucous membranes. Chest: Decreased air entry bilaterally. No wheezing or rhonchi. Cardiovascular: Positive S1, positive S2. Regular rate and rhythm. Abdomen: Positive bowel sounds in all 4 quadrants. Soft, non-tender, non- distended. : Deferred. Rectal: Deferred. Skin: Warm, dry. Intact. Extremities: 2+ radial pulses bilaterally. No lower extremity edema. Neuro: Awake, alert, oriented x3. No gross motor or sensory deficits. Cranial nerves II through XII intact. Gait not assessed. laboratory and microbiology Laboratory Tests 04/01/25 20:13 04/01/25 03:30 Test 04/01/25 03:30 Range/Units Serum Glucose 148 H 74-106 mg/dL Assessment/Plan Impression: Acute kidney injury Acute hypoxic respiratory failure Dependence on supplemental oxygen Chronic obstructive pulmonary disease Pneumonia Left hydronephrosis Septic shock Events: On supplemental oxygen 3 LPM via NC Taper O2 as tolerated On pressors for hemodynamic support Levophed 3 mcg/min Titrate to keep mean arterial pressure greater than 65 mmHg. Slightly increased pressor requirements - taper as tolerated Head of bed elevation Aspiration precautions Eliquis BID + amiodarone for AFib Continue antibiotics Monitor WBC - trending down Continue bronchodilators Incentive spirometry Accu-Cheks, ISS. Protonix for GI ppx IV fluids Diurese with Bumex drip Monitor renal function - BUN 85-->93; Cr of 4.12-->4.27 Poor urine output Follow up Nephrology recommendations Monitor electrolytes. Supplement as necessary. NPO TPN for nutritional support Pigtail drain placed for aspiration of left hemipelvic abscess (03/26) Prior cultures from drainage grew ESBL, Enterobacter cloacae. ID recommendations appreciated Monitor pelvic drain output. Monitor hemoglobin - trended down to 7.6 g/dL Transfuse if less than 7.0 g/dL. Labs and imaging studies reviewed Plan Supplemental oxygen Titrate to keep O2 sats above 92%. Pressors as necessary for hemodynamic support Titrate to keep mean arterial pressure greater than 65 mmHg. Bronchodilators for COPD - stable Continue antibiotics F/u cultures Amiodarone/Eliquis for AFib Monitor WBC Monitor hemoglobin Monitor renal function Monitor electrolytes. Supplement as necessary. Monitor ins and outs. Maintain euvolemia. F/u with urology/urology and gen sx GI prophylaxis. DVT prophylaxis. Prognosis: Poor given patient's multiple co-morbidities. Condition: Critical Rest of plan per hospitalist and other consultants. A total of 35 minutes of critical care time was spent reviewing the patient record, examining the patient, making a diagnostic and therapeutic plan, discussing this plan with the medical personnel, following up on diagnostic studies and following the patient for clinical stability excluding any and all procedures. At least 50% of this time was spent in direct, [id number] contact. Thank you, Dr. Celis, for allowing me to participate in this patient's care. Further recommendations will depend on the patient's clinical course. Please do not hesitate to contact me if you have any questions or concerns. This medical document was created using an electronic medical record system with [employer] dictation system. Although these documentations are being carefully reviewed, there may still be some phonetic and typographical changes. The errors are purely typographical, due to imperfection on the software program, and do not reflect any compromise in the patient's medical care. Dietary Evaluation Review Comments: Renal Specific 60g CCHO-60 Cardiac Diet d/t SCOT over CKD and low GFR Expected Outcomes/Goals: less uremic symptoms, better weight management Plan discussed with: Patient, Other (BOSTON Juarez) Critical Care Time(min): 35 CC Plasma Assessment Blood Product Administration S: [id number] PALOMO ROBLES MD Apr 01, 2025 23:47
[2025-04-02] VITALS (101 sets, daily range): BP systolic 75–122; BP diastolic 28–62; PULSE 84–112; RESP 11–24; TEMP 97.6–98.6; O2SAT 93–100
[2025-04-02 04:16] LABS: Hemoglobin 7.7 g/dL (12.2-16.2); Nucleated Red Blood Cells % 0.1 %
[2025-04-02 04:20] LABS: Hematocrit 23.2 % (36.0-46.0); Mean Corpuscular Hemoglobin 29.1 pg (28.0-32.0); Mean Corpuscular Volume 87.9 fL (80.0-100.0)
[2025-04-02 04:24] LABS: Alanine Aminotransferase 27 U/L (7-40); Albumin 3.7 g/dL (3.2-4.8); Alkaline Phosphatase 91 U/L (46-116); Anion Gap 12 (5-15); BUN/Creatinine Ratio 22.1 (10.0-20.0); Bilirubin, Total 0.4 mg/dL (0.2-1.0); Calcium 9.3 mg/dL (8.7-10.4); Carbon Dioxide 23 mmol/L (20-31); Chloride 101 mmol/L (98-107); Potassium 4.0 mmol/L (3.5-5.1); Sodium 136 mmol/L (136-145); Total Protein 6.2 g/dL (5.7-8.2)
[2025-04-02 04:41] LABS: Glucose 152 mg/dL (74-106); Magnesium 2.7 mg/dL (1.6-2.6)
[2025-04-02 04:42] LABS: Blood Urea Nitrogen 103 mg/dL (9-23)
--- NOTE | 2025-04-02 08:20 | DVHPN2 ---
Progress Note - Dictate Date Seen: Apr 02, 2025 Has the PT tested + for MRSA If YES, has PT been informed?: No Medical Necessity Reason Pt with a Central, PICC or Fol: Yes The following are medically ne: Tijerina Catheter Reason for tijerina catheter: Strict I&O vital signs Vital Sign Date Time Temp Pulse Resp B/P (MAP) Pulse Ox O2 Delivery O2 Flow Rate FiO2 04/02/25 06:45 97.6 98 15 122/51 (74) 98 97.6 04/02/25 06:11 Nasal Cannula 3.0 04/02/25 06:11 32 Total Intake and Output 04/01/25 04/01/25 04/02/25 15:00 23:00 07:00 Intake Total 648.830 ml 869.752 ml 719.19 ml Output Total 355 ml 765 ml Balance 648.830 ml 514.752 ml -45.81 ml medications Current Medications Medications Dose Ordered Sig/Sravan Route Start Time Stop Time Status Last Admin Dose Admin Acetaminophen/ Hydrocodone Bitart 1 tab Q4HP PRN PO 03/20/25 12:15 03/30/25 00:45 1 TAB Ondansetron HCl 4 mg Q4HP PRN IV 03/20/25 12:15 03/26/25 08:18 4 MG Docusate Sodium 100 mg BIDPRN PRN PO 03/20/25 12:15 Acetaminophen 650 mg Q6HP PRN PO 03/20/25 12:15 03/28/25 10:59 650 MG Nitroglycerin 0.4 mg Q5MINP PRN SL 03/20/25 12:15 03/25/25 09:26 0.4 MG Morphine Sulfate 2 mg Q30M PRN IV 03/20/25 12:15 03/25/25 09:43 2 MG Allopurinol 100 mg DAILY PO 03/21/25 10:00 04/01/25 10:33 100 MG Apixaban 2.5 mg BID PO 03/20/25 22:00 04/01/25 21:49 2.5 MG Cilostazol 100 mg BID PO 03/20/25 22:00 04/01/25 21:49 100 MG Patient Own Medication 1 tab DAILY PO 03/21/25 10:00 UNV Patient Own Medication 1 tab DAILY PO 03/21/25 10:00 UNV Gabapentin 300 mg DAILY PO 03/21/25 10:00 04/01/25 10:33 300 MG Levothyroxine Sodium 112 mcg DAILY PO 03/21/25 10:00 04/01/25 10:32 112 MCG Levothyroxine Sodium 25 mcg DAILY PO 03/21/25 10:00 04/01/25 10:33 25 MCG Diphenhydramine HCl 50 mg [id number] PRN PO 03/21/25 16:45 03/21/25 22:57 50 MG Albuterol 2.5 mg Q6HR NEB 03/21/25 18:00 04/02/25 06:09 2.5 MG Ipratropium [place] 0.5 mg Q6HWA [facility] 03/21/25 18:00 04/02/25 06:09 0.5 MG Patient Own Medication 1 tab BID PO 03/21/25 22:00 04/01/25 21:49 1 TAB Throat Lozenges 1 liv Q2HP PRN MT 03/23/25 04:00 03/23/25 14:52 1 LIV Pantoprazole Sodium 40 mg DAILY IV 03/26/25 10:00 04/01/25 10:32 40 MG Magnesium Oxide 400 mg DAILY PO 03/27/25 10:00 03/31/25 10:22 400 MG Ertapenem 0.5 gm DAILY IM 03/27/25 11:15 Cancel Amino Acids 0 ml @ 0 mls/hr PER PHARMACY IV 03/27/25 12:00 Diagnostic Test (Pha) 1 strip Q6HR 03/27/25 18:00 04/02/25 06:02 1 STRIP Insulin Human Regular FOLLOW SLIDING SCALE Q6HR SC 03/27/25 18:00 04/02/25 06:01 2 UNITS Dextrose 50 ml UD IV 03/27/25 12:30 Norepinephrine Bitartrate 250 ml @ 0.938 mls/ hr Q24H IV 03/28/25 09:15 04/01/25 22:23 6.563 MLS/HR Amiodarone HCl 200 mg Q12HR PO 03/29/25 10:00 04/01/25 21:48 200 MG Nystatin 1 applic DAILY TOP 04/01/25 10:00 04/01/25 10:34 1 APPLIC Fat Emulsion Intravenous 200 ml/Sodium Chloride 80 meq/ Sodium Acetate 40 meq/Calcium Gluconate 1.65 meq/Multivitamins 10 ml/Chromium/ Copper/Manganese/ Zinc 1 ml/Amino Acids/Dextrose 1,504.5483 ml @ 63 mls/hr [id number] IV 04/01/25 22:00 04/02/25 21:59 04/01/25 21:50 63 MLS/HR Bumetanide 25 mg/ Miscellaneous 100 ml @ 8 mls/hr [id number] IV 04/01/25 20:15 04/01/25 20:15 8 MLS/HR laboratory and microbiology Laboratory Tests 04/02/25 03:15 Test 04/02/25 03:15 Range/Units Serum Glucose 152 H 74-106 mg/dL Assessment/Plan Patient is a 74-year-old female who was admitted on March 20, 2025 for abdominal pain/nausea/vomiting. She is admitted to ICU for septic shock. On March 24, 2025, cardiology was involved for cardiac aspects of care. Patient is known to our practice from before and previous admissions. She is known to have significant alcohol abuse (drinks whiskey every day) and also history of pulmonary hypertension/type 2 pulmonary hypertension, diastolic heart failure. Does have poor functional capacity and is bed-bound. Is significantly morbidly obese. Does have baseline history of atrial fibrillation and is on Eliquis as outpatient. Is found to have septic shock and possible pelvic abscess. Is seen by surgery/Urology/pulmonary/GI. Denies chest pains. Denies palpitations. Is noncompliant with medication and followups. While being managed in ICU was found to have atrial fibrillation with RVR. 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 She has had multiple surgeries in the bilateral feet. She also has history of COPD/asthma with chronic respiratory failure (on home oxygen). Morbidly obese. Not in acute distress. No JVD. Mucosa is dry. Mucosa is pink. No JVD. No carotid bruit. Not using accessory muscles of breathing. Scattered rhonchi in the lungs is heard. Cardiac: Irregular, no thrill. Abdomen is obese and soft. There is no gross hepatomegaly, but it is presence can not be ruled out (body habitus, morbidly obese). There is 3+ edema in bilateral lower extremities which extends to abdominal wall. Past medical history includes morbid obesity, atrial fibrillation (on Eliquis as outpatient), COPD/asthma with chronic respiratory failure on home oxygen, morbid obesity, hypertension, hyperlipidemia, chronic lymphedema, Diastolic heart failure with type 2 pulmonary hypertension, rheumatoid arthritis, osteoarthritis, peripheral vascular disease, CKD (stage IV), anemia, alcohol abuse, neuropathy, gout, old history of right and left foot fracture and their management, status post right knee replacement, status post , bed-bound at baseline and functional quadriplegia. Patient drinks whiskey daily. Goes to Nephrology regularly. Reportedly, there has been some concern about going to have fistula creation on preparation for dialysis? Echocardiogram of January 03 2024 (performed in [facility]) revealed ejection fraction of 60%, mild biatrial enlargement, mild MR/TR and right ventricular systolic pressure of 31 mm Hg. Echocardiogram of (performed in [facility]) revealed: EF of 50 to 55%, Dilated right ventricle with normal systolic function. Severe biatrial enlargement. Mild AI, mild to moderate MR, moderate TR and RVSP of 51 mmHg. Ascending Aorta was 3.7 cm. Echocardiogram of November 09, 2024 revealed ejection fraction of 72%, mild right ventricular enlargement, moderate biatrial enlargement, mild to moderate tricuspid regurgitation, mild mitral regurgitation, right ventricular systolic pressure 54 mm Hg Echocardiogram of February 23, 2025 revealed ejection fraction of around 50%, mild concentric left ventricular hypertrophy, right ventricular enlargement with preserved systolic function. Biatrial enlargement, mild aortic insufficiency, [id number] mitral regurgitation and tricuspid regurgitation. IVC was significantly dilated. Right ventricular systolic pressure of of 55 mm Hg WBC: 5.2 - 8.2-12.3 - 8.5 - 11.3 - 13.7 - 21.6 - 16.9 - 15.1 - 12.1 - 10.6 - 10.1 - 10.5 - 9.5 - 9.6 Hemoglobin: 6.7 - 8.6 - 8.1 - 7.6 - 7.9 - 7.7 - 7.8 - 7.8 - 7.6 - 7.5 - 7.1 - 7.0 - 8.5 - 8.2 - 7.6 - 7.7 Platelet: 57 - 73 - 91 - 108 - 159 - 189 - 257 - 322 - 312 - 291 - 240 - 243 - 239 - 227 - 229 Creatinine: 3.29 - 2.63 - 2.77 - 2.59 - 2.13 - 1.98 - 1.98 - 2.47- 2.98 - 3.36 - 3.56 - 3.83 - 4.12 - 4.27 - 4.67 Potassium: 3.9 - 3.4 - 3.8 - 3.3 - 3.4 - 3.9 - 3.5 - 3.5 - 3.3 - 3.4 - 3.7 - 3.8 - 4.0 - 4.3 - 4.0 Sodium: 124 - 129 - 129 - 131 - 135 - 138 - 138 - 139 - 138 - 137 - 137 - 136 - 135 - 135 - 136 AST/ALT: 143/111 - 347/315 - 48/358 - 11/120 - - <64 - <50 - <34 - <05/23 Troponin (high sensitive): 32 - 31 - 34 TSH: 0.17 - 0.15 T3: 0.40 (low) T4: 5.7 Free T4: 1.27 Free T3: 1.55 (low) Urine and Aspirate culture: ESBL E-coli Chest x-ray revealed: IMPRESSION: Cardiomegaly. Repeat chest x-ray revealed: IMPRESSION: 1. Cardiomegaly with increased interstitial prominence suggestive of CHF exacerbation. 2. Pulmonary arterial hypertension. Repeat chest x-ray revealed: IMPRESSION: Cardiomegaly with mild pulmonary congestion. . Repeat chest x-ray revealed: IMPRESSION: Cardiomegaly with pulmonary congestion and edema. Superimposed pneumonia cannot be excluded. Repeat chest x-ray revealed: IMPRESSION: Worsening right lower lung airspace disease. Suggestion of small bilateral pleural effusions. Repeat chest xray revealed: IMPRESSION: No significant interval change Abdominal ultrasound revealed: IMPRESSION: Small left hydronephrosis Renal scan revealed: IMPRESSION: Bilateral renal obstruction is present which is not response to Lasix administration suggesting that the kidney may be minimally functional. Abdomen and pelvic CT scan revealed: IMPRESSION: Moderate left hydroureteronephrosis. Suggestion of possible small abscess formation in the left hemipelvis associated with the sigmoid colon measuring 5.7 cm. This may represent site of ureteral obstruction. Clinical correlation advised. Examination is limited secondary to lack of intravenous and oral contrast administration. Abdomen and pelvis CT revealed: IMPRESSION: Sigmoid colonic diverticulitis with an adjacent 6 cm fluid collection with gas, could be an abscess. Probable fistula of the sigmoid to the fluid collection, and possibly with the urinary bladder, which is decompressed with a Tijerina. Possible trace left hydronephrosis with perinephric fat stranding. CT guided abscess drainage: IMPRESSION: CT guided placement of 8 irish pigtail drain into a left hemipelvic abscess with 30 mL purulent fluid aspirated. PLAN: Routine tube care. Renal ultrasound revealed: IMPRESSION: Unremarkable renal ultrasound without hydronephrosis seen. EKG revealed atrial fibrillation with RVR Tele reveals atrial fibrillation with RVR Echocardiogram revealed: Left ventricle: Mild concentric left ventricular hypertrophy was seen. LVEF was around 50%. Right ventricle was mildly dilated with reduced systolic function. Both atria were dilated. Aortic valve was not well visualized. There was no aortic insufficiency/stenosis. There was mild mitral regurgitation. There was [id number] tricuspid regurgitation. Pulmonary valve was not well visualized. Right ventricular systolic pressure was assessed at 50 mm Hg. IVC was dilated. There was no pericardial effusion. Patient is a 74-year-old female with known history of diastolic heart failure with type 2 pulmonary hypertension who presented with abdominal pain. He is admitted to ICU with septic shock. Did have thrombocytopenia which slowly improved. Was significantly anemic and was transfused PRBC. There has been question about pelvic abscess and the patient is on antibiotics. Patient is being followed by surgery/Urology/pulmonary/GI. It is of note that the patient does have history of significant alcohol abuse (drinks good amount of whiskey daily) which could contribute to to some component of the clinical picture. Does have baseline history of pulmonary hypertension. Usually is on some amount of diuretic (Bumex) as outpatient. Clinically, the patient does have dry mucosa and maybe behind fluids at the time of evaluation. Does have baseline poor functional capacity. Does have history of recent sepsis. s/p CT guided abscess drainage. Seen by Nephrology. Diuretics are on hold. TFT are in favor of subclinical thyroid problem. Still with poor kidney function. Nephrology suggested hemodialysis, patient is hesitant. Significant anemia, status post PRBC transfusion Thrombocytopenia, resolved Septic shock SCOT on CKD Hydronephrosis Pelvic abscess Transaminitis Acute on chronic diastolic heart failure Pulmonary Hypertension, type 2 Alcohol abuse Morbid obesity Poor functional capacity Bed-bound at baseline Atrial fibrillation with RVR Hyperlipidemia Osteoarthritis Rheumatoid arthritis Peripheral vascular disease Abdominal abscess? s/p CT guided abscess drainage Cardiac suggestion for management: Manage in ICU Follow-up electrolytes and kidney function tests and correct abnormalities Full anticoagulation (on Eliquis presently), long-term Septic shock, still on pressure support and IV antibiotics Nephrology follow up (Nephrology suggested Dialysis, patient is hesitant, on bumex drip) Consider IV fluids On oral amiodarone Pressor support at this point to keep mean arterial pressure above 65 Evaluation and management of sepsis/infection as per primary team Evaluation and management of alcohol abuse/prevention of withdrawal as per primary team Evaluation and management of pelvic abscess/hydronephrosis as per primary team/surgery/Urology Further evaluation and management depends on the above and clinical course A total of 75 minutes was spent reviewing the patient record, examining the patient, making a diagnostic and therapeutic plan, discussing this plan with medical personnel, following up on diagnostic studies and following the patient for clinical stability excluding any and all procedures. At least 50% of this time was spent in direct, [id number] contact. Thank you for allowing me to participate in this patient's care. Further recommendations will depend on patient's clinical course. Please do not hesitate to contact me if you have any questions or concerns. This medical document was created using electronic medical record system with [employer] computerized dictation system. Although this document has been carefully reviewed, there may still be some phonetic and typographical errors. These areas are purely typographical due to the imperfection of the software programs, and do not reflect any compromise in the patient's medical care. Dietary Evaluation Review Comments: Renal Specific 60g CCHO-60 Cardiac Diet d/t SCOT over CKD and low GFR Expected Outcomes/Goals: less uremic symptoms, better weight management Plan discussed with: Patient, Other (nurse) CC Plasma Assessment Blood Product Administration S: [id number] AUSTIN ROMERO MD Apr 02, 2025 08:20
--- NOTE | 2025-04-02 09:10 | DVHPN2 ---
Subjective Patient continues to have pain to left lower quadrant where IR drain was placed. Reviewed: Care Plan, H&P, Labs, Medications, Previous Orders, Radiology Changes from previous H/P or p: No Changes General: Per HPI Eyes: No Pain, No Vision change, No Conjunctivae inflammation, No Eyelid inflammation, No Other, No Redness ENT: No Ear pain, No Ear discharge, No Nose pain, No Nose discharge, No Nose congestion, No Mouth pain, No Mouth swelling, No Throat pain, No Throat swelling, No Other Cardiovascular: No Chest Pain, No Palpitations, No Orthopnea, No Paroxysmal Noc. Dyspnea, No Edema, No Lt Headedness, No Other Respiratory: No Cough, No Dry, No Shortness of breath, No SOB with excertion, No Wheezing, No Hemoptysis, No Pleuritic Pain, No Sputum, No Other Gastrointestinal: Nausea, Vomiting, Abdominal Pain Genitourinary: No Dysuria, No Frequency, No Incontinence, No Hematuria, No Retention, No Other Musculoskeletal: No other, No neck pain, No shoulder pain, No arm pain, No back pain, No hand pain, No leg pain, No foot pain Skin: No Rash, No Lesions, No Jaundice, No Bruising, No Other Objective Vitals Vital Signs Date Time Temp Pulse Resp B/P (MAP) Pulse Ox O2 Delivery O2 Flow Rate FiO2 04/02/25 06:45 97.6 98 15 122/51 (74) 98 97.6 04/02/25 06:11 Nasal Cannula 3.0 04/02/25 06:11 32 Intake/Output Intake and Output 04/02/25 07:00 Intake Total 2237.772 ml Output Total 1120 ml Balance 1117.772 ml Intake Oral 300 ml IV Total 1937.772 ml Output Urine Total 1100 ml Drainage Total 20 ml General Appearance: Alert, Oriented X3, Cooperative, Other HEENT: Atraumatic, PERRLA Cardiovascular: Normal S1, Normal S2, Other Abdomen: Normal bowel sounds, Other Extremities: No edema, Normal pulses Neuro: Sensation intact, Cranial nerves 3-12 NL Skin: Dry, Intact Psych/Mental Status: Mental status NL, Mood NL Medications Current Medications Medications Dose Ordered Sig/Sravan Route Start Time Stop Time Status Last Admin Dose Admin Acetaminophen/ Hydrocodone Bitart 1 tab Q4HP PRN PO 03/20/25 12:15 03/30/25 00:45 1 TAB Ondansetron HCl 4 mg Q4HP PRN IV 03/20/25 12:15 03/26/25 08:18 4 MG Docusate Sodium 100 mg BIDPRN PRN PO 03/20/25 12:15 Acetaminophen 650 mg Q6HP PRN PO 03/20/25 12:15 03/28/25 10:59 650 MG Nitroglycerin 0.4 mg Q5MINP PRN SL 03/20/25 12:15 03/25/25 09:26 0.4 MG Morphine Sulfate 2 mg Q30M PRN IV 03/20/25 12:15 03/25/25 09:43 2 MG Allopurinol 100 mg DAILY PO 03/21/25 10:00 04/01/25 10:33 100 MG Apixaban 2.5 mg BID PO 03/20/25 22:00 04/01/25 21:49 2.5 MG Cilostazol 100 mg BID PO 03/20/25 22:00 04/01/25 21:49 100 MG Patient Own Medication 1 tab DAILY PO 03/21/25 10:00 UNV Patient Own Medication 1 tab DAILY PO 03/21/25 10:00 UNV Gabapentin 300 mg DAILY PO 03/21/25 10:00 04/01/25 10:33 300 MG Levothyroxine Sodium 112 mcg DAILY PO 03/21/25 10:00 04/01/25 10:32 112 MCG Levothyroxine Sodium 25 mcg DAILY PO 03/21/25 10:00 04/01/25 10:33 25 MCG Diphenhydramine HCl 50 mg [id number] PRN PO 03/21/25 16:45 03/21/25 22:57 50 MG Albuterol 2.5 mg Q6HR NEB 03/21/25 18:00 04/02/25 06:09 2.5 MG Ipratropium [place] 0.5 mg Q6HWA NEB 03/21/25 18:00 04/02/25 06:09 0.5 MG Patient Own Medication 1 tab BID PO 03/21/25 22:00 04/01/25 21:49 1 TAB Throat Lozenges 1 liv Q2HP PRN MT 03/23/25 04:00 03/23/25 14:52 1 LIV Pantoprazole Sodium 40 mg DAILY IV 03/26/25 10:00 04/01/25 10:32 40 MG Magnesium Oxide 400 mg DAILY PO 03/27/25 10:00 03/31/25 10:22 400 MG Ertapenem 0.5 gm DAILY IM 03/27/25 11:15 Cancel Amino Acids 0 ml @ 0 mls/hr PER PHARMACY IV 03/27/25 12:00 Diagnostic Test (Pha) 1 strip Q6HR 03/27/25 18:00 04/02/25 06:02 1 STRIP Insulin Human Regular FOLLOW SLIDING SCALE Q6HR SC 03/27/25 18:00 04/02/25 06:01 2 UNITS Dextrose 50 ml UD IV 03/27/25 12:30 Norepinephrine Bitartrate 250 ml @ 0.938 mls/ hr Q24H IV 03/28/25 09:15 04/01/25 22:23 6.563 MLS/HR Amiodarone HCl 200 mg Q12HR PO 03/29/25 10:00 04/01/25 21:48 200 MG Nystatin 1 applic DAILY TOP 04/01/25 10:00 04/01/25 10:34 1 APPLIC Fat Emulsion Intravenous 200 ml/Sodium Chloride 80 meq/ Sodium Acetate 40 meq/Calcium Gluconate 1.65 meq/Multivitamins 10 ml/Chromium/ Copper/Manganese/ Zinc 1 ml/Amino Acids/Dextrose 1,504.5483 ml @ 63 mls/hr [id number] IV 04/01/25 22:00 04/02/25 21:59 04/01/25 21:50 63 MLS/HR Bumetanide 25 mg/ Miscellaneous 100 ml @ 8 mls/hr [id number] IV 04/01/25 20:15 04/01/25 20:15 8 MLS/HR Laboratory Results Laboratory Tests 04/02/25 03:15 Chemistry Test 04/02/25 03:15 Albumin 3.7 g/dL (3.2-4.8) Calcium Level 9.3 mg/dL (8.7-10.4) Magnesium Level 2.7 mg/dL (1.6-2.6) H Phosphorus Level 3.7 mg/dL (2.4-5.1) Total Protein 6.2 g/dL (5.7-8.2) LFT Test 04/02/25 03:15 Alanine Aminotransferase (ALT) 27 U/L (7-40) Alkaline Phosphatase 91 U/L (46-116) Aspartate Amino Transferase (AST) < 8 U/L (13-40) L Total Bilirubin 0.4 mg/dL (0.2-1.0) Urinalysis Test 03/20/25 09:34 Urine Color Colorless (Yellow) Urine Clarity Turbid (Clear) H Urine pH 5.0 (5.0-9.0) Urine Specific [place] 1.015 (1.001-1.035) Urine Protein Negative (Negative) Urine Ketones Negative (Negative) Urine Blood Negative /uL (Negative) Urine Nitrite Negative (Negative) Urine Bilirubin Negative (Negative) Urine Urobilinogen Normal mg/dL (Negative) Urine Leukocyte Esterase 3+ /uL (Negative) Urine RBC 1 /hpf (0 - 4) Urine Microscopic WBC 255 /HPF (0-5) H Urine Squamous Epithelial Cells Few /hpf (<5) Urine Bacteria Few /hpf (None Seen) H Urine Glucose Normal mg/dL (Normal) Microbiology Microbiology Date/Time Source Procedure Growth Status 03/26/25 15:00 Aspirate Gram Stain - Final Complete 03/26/25 15:00 Body Fluid Culture - Final Escherichia coli - ESBL Enterobacter cloacae Proteus mirabilis Complete 03/23/25 04:30 Throat Nose/Throat Culture - Final Complete 03/21/25 18:00 Urine - Catheterized Urine Culture - Final Escherichia coli - ESBL Klebsiella pneumoniae - ESBL Complete 03/20/25 21:52 Nose MRSA Screen - Final Complete Labs and/or images reviewed: Labs reviewed by me, Image(s) reviewed by me Assessment/Plan Assessment/Plan Impression: -septic shock -diverticular abscess -AFib with RVR -morbid obesity -obstructive uropathy -CKD stage 4 -acute kidney injury, vasomotor nephropathy -acute on chronic systolic and diastolic heart failure -bed-bound status -complicated cystitis with ESBL in the urine. Plan: Events: Worsening renal function. White blood cell count improved. Minimal drainage from left lower quadrant. Repeat CT scan. Continues to be on norepinephrine drip. Discussed case with Cardiology. Perform passive leg raises to assess if patient is volume depleted -continue Meropenem -continue rate control with amiodarone -status post IR drain placement diverticular abscess. -repeat renal ultrasound reveals that hydronephrosis has resolved. Further course of care per Urology -surgical consultation: Recommendations reviewed -continue anticoagulation with Eliquis -continue NPO except for medications -repeat labs and Chest x ray in a.m. Critical care time spent with patient discussing and formulating plan of care: 40 minutes. This does not include time spent performing procedures. This medical document was created using an electronic medical record system with [employer] dictation system. Although this document has been carefully reviewed, there may still be some phonetic and typographical errors. These areas are purely typographical due to imperfections of the software programs, and do not reflect any compromise in the patient's medical care. Plan discussed with: Patient, Other (RN) My Orders Orders - GONZALO ASKEW NP Procedure Category Date Status Time Amino Acid PHA 04/01/25 In Process Infusion... W/Fat 22:00 Tpn Per Pharmacy EBONY 04/01/25 In Process 22:00 Ct Ab Pel Wo Con-No CT 04/02/25 Logged Oral Or Iv 08:05 Basic Metabolic Panel LAB 04/03/25 Verified 04:00 Complete Blood Count LAB 04/03/25 Verified 04:00 Communication Order ORDERS 04/02/25 Verified 09:07 Date of Service: Apr 02, 2025 Billing Provider: GONZALO ASKEW NP Common Visit Codes: 46743-[id number] CARE 30-74 MIN GONZALO ASKEW NP Apr 02, 2025 09:10
--- NOTE | 2025-04-02 10:29 | DVH ---
Exam: CT CT AB PEL WO CON-NO ORAL OR IV History: reassess diverticular abscess Comparison Study: CT CT AB PEL WO CON-NO ORAL OR IV on DOS: 03/26/25, CT CT AB PEL WO CON-NO ORAL OR I V on DOS: 03/20/25, [facility] on DOS: 01/17/22 Technique: Multidetector spiral CT of the abdomen was performed from lung bases to pubic symphysis. I maging was performed without IV contrast. Axial, coronal and sagittal multiplanar reformats were obta ined from the axial data set by the technologist. Radiation Dose : 1. Abdomen/Pelvis: CTDIvol 28 mGy, DLP 1811.2 mGy*cm. Findings: Evaluation of solid organs is limited due to lack of intravenous contrast use. Lung Bases: Cardiomegaly. Coronary artery calcifications. Vascular calcifications of the aorta. Small to moderate bilateral pleural effusions with bilateral lower lobe atelectasis /consolidation. Liver: The liver is normal in size. No focal lesions. Gallbladder and Biliary Tree: Unremarkable Spleen: Unremarkable Pancreas: The pancreas is grossly normal in appearance. Adrenal Glands: Unremarkable Kidneys: Kidneys are grossly normal without calculi or hydronephrosis. Bladder: Bladder is decompressed with a Espinal catheter and cannot be adequately assessed. Bowel: The stomach is grossly normal in appearance. Small bowel and colon are normal in caliber and d istribution. The appendix is not visualized; however, no secondary findings of acute appendicitis arnulfo ntified. Ascites: Small volume pelvic ascites. Lymphadenopathy: No mesenteric, retroperitoneal or periportal lymphadenopathy. Abdominal Wall and Mesentery: Drainage catheter in the left lower quadrant. Decreased size of abscess currently measuring 2.2 cm, previously 5.7 cm. Vasculature: The visualized abdominal aorta is normal in size and caliber. Evaluation of abdominal a nd pelvic vessels is limited due to lack of intravenous contrast. Pelvic Organs: Unremarkable Musculoskeletal: No aggressive focal bony lesions, acute fractures or dislocation. Degenerative stnoe es of the spine. IMPRESSION: Small to moderate bilateral pleural effusions and associated compressive atelectasis / consolidation. Left lower quadrant pelvic drain in satisfactory position with significant interval decrease in size of abscess currently measuring 2.2 cm, previously 5.7 cm.
--- NOTE | 2025-04-02 15:04 | DVHPN2 ---
Progress Note - Dictate Date Seen: Apr 02, 2025 Has the PT tested + for MRSA If YES, has PT been informed?: No Medical Necessity Reason Pt with a Central, PICC or Fol: Yes The following are medically ne: Tijerina Catheter Reason for tijerina catheter: Strict I&O Subjective Complains of shortness of breath. vital signs Vital Sign Date Time Temp Pulse Resp B/P (MAP) Pulse Ox O2 Delivery O2 Flow Rate FiO2 04/02/25 14:30 101 24 116/46 (69) 96 04/02/25 14:00 Nasal Cannula* 3 32 04/02/25 12:00 97.7 97.7 Total Intake and Output 04/01/25 04/01/25 04/02/25 15:00 23:00 07:00 Intake Total 648.830 ml 869.752 ml 798.59 ml Output Total 355 ml 765 ml Balance 648.830 ml 514.752 ml 33.59 ml medications Current Medications Medications Dose Ordered Sig/Sravan Route Start Time Stop Time Status Last Admin Dose Admin Acetaminophen/ Hydrocodone Bitart 1 tab Q4HP PRN PO 03/20/25 12:15 03/30/25 00:45 1 TAB Ondansetron HCl 4 mg Q4HP PRN IV 03/20/25 12:15 03/26/25 08:18 4 MG Docusate Sodium 100 mg BIDPRN PRN PO 03/20/25 12:15 Acetaminophen 650 mg Q6HP PRN PO 03/20/25 12:15 03/28/25 10:59 650 MG Nitroglycerin 0.4 mg Q5MINP PRN SL 03/20/25 12:15 03/25/25 09:26 0.4 MG Morphine Sulfate 2 mg Q30M PRN IV 03/20/25 12:15 03/25/25 09:43 2 MG Allopurinol 100 mg DAILY PO 03/21/25 10:00 04/02/25 10:04 100 MG Apixaban 2.5 mg BID PO 03/20/25 22:00 04/02/25 10:04 2.5 MG Cilostazol 100 mg BID PO 03/20/25 22:00 04/02/25 10:04 100 MG Patient Own Medication 1 tab DAILY PO 03/21/25 10:00 UNV Patient Own Medication 1 tab DAILY PO 03/21/25 10:00 UNV Gabapentin 300 mg DAILY PO 03/21/25 10:00 04/02/25 10:09 300 MG Levothyroxine Sodium 112 mcg DAILY PO 03/21/25 10:00 04/02/25 10:09 112 MCG Levothyroxine Sodium 25 mcg DAILY PO 03/21/25 10:00 04/02/25 10:08 25 MCG Diphenhydramine HCl 50 mg [id number] PRN PO 03/21/25 16:45 03/21/25 22:57 50 MG Albuterol 2.5 mg Q6HR NEB 03/21/25 18:00 04/02/25 11:08 2.5 MG Ipratropium [place] 0.5 mg Q6HWA NEB 03/21/25 18:00 04/02/25 11:08 0.5 MG Patient Own Medication 1 tab BID PO 03/21/25 22:00 04/02/25 10:03 1 TAB Throat Lozenges 1 liv Q2HP PRN MT 03/23/25 04:00 03/23/25 14:52 1 LIV Pantoprazole Sodium 40 mg DAILY IV 03/26/25 10:00 04/02/25 09:19 40 MG Magnesium Oxide 400 mg DAILY PO 03/27/25 10:00 04/02/25 10:04 400 MG Ertapenem 0.5 gm DAILY IM 03/27/25 11:15 Cancel Amino Acids 0 ml @ 0 mls/hr PER PHARMACY IV 03/27/25 12:00 Diagnostic Test (Pha) 1 strip Q6HR 03/27/25 18:00 04/02/25 11:40 1 STRIP Insulin Human Regular FOLLOW SLIDING SCALE Q6HR SC 03/27/25 18:00 04/02/25 11:36 2 UNITS Dextrose 50 ml UD IV 03/27/25 12:30 Norepinephrine Bitartrate 250 ml @ 0.938 mls/ hr Q24H IV 03/28/25 09:15 04/01/25 22:23 6.563 MLS/HR Amiodarone HCl 200 mg Q12HR PO 03/29/25 10:00 04/02/25 10:04 200 MG Nystatin 1 applic DAILY TOP 04/01/25 10:00 04/02/25 10:07 1 APPLIC Fat Emulsion Intravenous 200 ml/Sodium Chloride 80 meq/ Sodium Acetate 40 meq/Calcium Gluconate 1.65 meq/Multivitamins 10 ml/Chromium/ Copper/Manganese/ Zinc 1 ml/Amino Acids/Dextrose 1,504.5483 ml @ 63 mls/hr [id number] IV 04/01/25 22:00 04/02/25 21:59 04/01/25 21:50 63 MLS/HR Bumetanide 25 mg/ Miscellaneous 100 ml @ 8 mls/hr [id number] IV 04/01/25 20:15 04/01/25 20:15 8 MLS/HR Fat Emulsion Intravenous 150 ml/Sodium Chloride 80 meq/ Sodium Acetate 40 meq/Potassium Chloride 10 meq/ Multivitamins 10 ml/Chromium/ Copper/Manganese/ Zinc 1 ml/Amino Acids/Dextrose 1,356 ml @ 56 mls/hr [id number] IV 04/02/25 22:00 04/03/25 21:59 objective HEENT: No evidence of JVD, no oral ulcers. Pulmonary: Crackles on auscultation bilaterally Cardiovascular S1-S2, no S3 or S4 Abdomen: Bowel sounds positive, soft no rebound tenderness Skin: No rash Neurological: Alert, oriented, no focal weakness Extremities: 1+ lower extremity edema pitting laboratory and microbiology Laboratory Tests 04/02/25 03:15 Test 04/02/25 03:15 Range/Units Serum Glucose 152 H 74-106 mg/dL Assessment/Plan Assessment: Oliguric Acute kidney injury superimposed on CKD 4 Suboptimal response to high doses of loop diuretic. Currently on 2 milligrams/hour of Bumex producing only 750 cc Worsening renal function parameters Sepsis with a urine culture growing E coli and Klebsiella both of which are ESBL . Wound culture with E coli ESBL Septic shock Status post drainage of left pelvic abscess Left hydronephrosis which has a resolved Acute on chronic diastolic heart failure Anemia status post transfusion of PRBC Pulmonary hypertension Atrial fibrillation Bed-bound patient Chronic alcoholism in remission, last alcoholic beverage three months ago. Assessment/Plan I did discuss with the patient the need for dialysis as she is not responding to high doses of Bumex. The patient is agreeable to dialysis, consult IR for tunneled line, monitor for renal recovery Continue pressor support Would want to continue with the medical management for now. Continue Bumex 2 mg/hr for now Continue TPN Overall prognosis is guarded Dietary Evaluation Review Comments: Renal Specific 60g CCHO-60 Cardiac Diet d/t SCOT over CKD and low GFR Expected Outcomes/Goals: less uremic symptoms, better weight management Plan discussed with: Patient CC Plasma Assessment Blood Product Administration S: [id number] AFTAB KENDALL MD Apr 02, 2025 15:04
--- NOTE | 2025-04-02 21:44 | DVHPN2 ---
Progress Note - Dictate Date Seen: Apr 02, 2025 Has the PT tested + for MRSA If YES, has PT been informed?: No Medical Necessity Reason Pt with a Central, PICC or Fol: Yes The following are medically ne: Tijerina Catheter Reason for tijerina catheter: Strict I&O Subjective No new complaints Patient is resting comfortably ; mild shortness of breath ALEKSANDAR drain output is minimal bloody less than 5 mL vital signs Vital Sign Date Time Temp Pulse Resp B/P (MAP) Pulse Ox O2 Delivery O2 Flow Rate FiO2 04/02/25 20:03 103/42 04/02/25 20:00 19 97 Nasal Cannula* 3 32 04/02/25 20:00 102 04/02/25 16:00 97.9 97.9 Total Intake and Output 04/01/25 04/01/25 04/02/25 15:00 23:00 07:00 Intake Total 648.830 ml 869.752 ml 798.59 ml Output Total 355 ml 765 ml Balance 648.830 ml 514.752 ml 33.59 ml medications Current Medications Medications Dose Ordered Sig/Sravan Route Start Time Stop Time Status Last Admin Dose Admin Acetaminophen/ Hydrocodone Bitart 1 tab Q4HP PRN PO 03/20/25 12:15 03/30/25 00:45 1 TAB Ondansetron HCl 4 mg Q4HP PRN IV 03/20/25 12:15 03/26/25 08:18 4 MG Docusate Sodium 100 mg BIDPRN PRN PO 03/20/25 12:15 Acetaminophen 650 mg Q6HP PRN PO 03/20/25 12:15 03/28/25 10:59 650 MG Nitroglycerin 0.4 mg Q5MINP PRN SL 03/20/25 12:15 03/25/25 09:26 0.4 MG Morphine Sulfate 2 mg Q30M PRN IV 03/20/25 12:15 03/25/25 09:43 2 MG Allopurinol 100 mg DAILY PO 03/21/25 10:00 04/02/25 10:04 100 MG Apixaban 2.5 mg BID PO 03/20/25 22:00 04/02/25 10:04 2.5 MG Cilostazol 100 mg BID PO 03/20/25 22:00 04/02/25 10:04 100 MG Patient Own Medication 1 tab DAILY PO 03/21/25 10:00 UNV Patient Own Medication 1 tab DAILY PO 03/21/25 10:00 UNV Gabapentin 300 mg DAILY PO 03/21/25 10:00 04/02/25 10:09 300 MG Levothyroxine Sodium 112 mcg DAILY PO 03/21/25 10:00 04/02/25 10:09 112 MCG Levothyroxine Sodium 25 mcg DAILY PO 03/21/25 10:00 04/02/25 10:08 25 MCG Diphenhydramine HCl 50 mg [id number] PRN PO 03/21/25 16:45 03/21/25 22:57 50 MG Albuterol 2.5 mg Q6HR NEB 03/21/25 18:00 04/02/25 19:09 2.5 MG Ipratropium [place] 0.5 mg Q6HWA NEB 03/21/25 18:00 04/02/25 19:09 0.5 MG Patient Own Medication 1 tab BID PO 03/21/25 22:00 04/02/25 10:03 1 TAB Throat Lozenges 1 liv Q2HP PRN MT 03/23/25 04:00 03/23/25 14:52 1 LIV Pantoprazole Sodium 40 mg DAILY IV 03/26/25 10:00 04/02/25 09:19 40 MG Magnesium Oxide 400 mg DAILY PO 03/27/25 10:00 04/02/25 10:04 400 MG Ertapenem 0.5 gm DAILY IM 03/27/25 11:15 Cancel Amino Acids 0 ml @ 0 mls/hr PER PHARMACY IV 03/27/25 12:00 Diagnostic Test (Pha) 1 strip Q6HR 03/27/25 18:00 04/02/25 18:20 1 STRIP Insulin Human Regular FOLLOW SLIDING SCALE Q6HR SC 03/27/25 18:00 04/02/25 18:20 2 UNITS Dextrose 50 ml UD IV 03/27/25 12:30 Norepinephrine Bitartrate 250 ml @ 0.938 mls/ hr Q24H IV 03/28/25 09:15 04/01/25 22:23 6.563 MLS/HR Amiodarone HCl 200 mg Q12HR PO 03/29/25 10:00 04/02/25 10:04 200 MG Nystatin 1 applic DAILY TOP 04/01/25 10:00 04/02/25 10:07 1 APPLIC Fat Emulsion Intravenous 200 ml/Sodium Chloride 80 meq/ Sodium Acetate 40 meq/Calcium Gluconate 1.65 meq/Multivitamins 10 ml/Chromium/ Copper/Manganese/ Zinc 1 ml/Amino Acids/Dextrose 1,504.5483 ml @ 63 mls/hr [id number] IV 04/01/25 22:00 04/02/25 21:59 04/01/25 21:50 63 MLS/HR Bumetanide 25 mg/ Miscellaneous 100 ml @ 8 mls/hr [id number] IV 04/01/25 20:15 04/02/25 20:03 8 MLS/HR Fat Emulsion Intravenous 150 ml/Sodium Chloride 80 meq/ Sodium Acetate 40 meq/Potassium Chloride 10 meq/ Multivitamins 10 ml/Chromium/ Copper/Manganese/ Zinc 1 ml/Amino Acids/Dextrose 1,356 ml @ 56 mls/hr [id number] IV 04/02/25 22:00 04/03/25 21:59 objective General examination- awake, alert HEENT- PEERLA, morbidly obese Cardiovascular- S1-S2 audible, rate and rhythm regular, no murmur Respiratory- CTAB, no wheeze or rhonchi Gastrointestinal-lower abdominal wall tenderness+, bowel sound+. Nondistended Musculoskeletal-no acute joint swelling or tenderness or redness Lower extremity- no leg edema Neurological- cranial nerves intact, no acute dysarthria or dysphagia laboratory and microbiology Laboratory Tests 04/02/25 03:15 Test 04/02/25 03:15 Range/Units Serum Glucose 152 H 74-106 mg/dL Problems(with codes): (1) Atrial fibrillation with RVR (2) COPD with acute exacerbation (3) E. coli UTI (urinary tract infection) (4) Generalized weakness (5) Pelvic abscess in female (6) Sepsis (7) Hydronephrosis (8) Acute on chronic kidney failure (9) Symptomatic anemia (10) Shortness of breath Prognosis Plan Continue IV fluid hydration Continue IV antibiotics Pain control Stool softeners Monitor labs and transfuse 1 unit PRBC if hemoglobin is less than seven Patient is currently on a clear liquid diet I will follow up patient with you Dietary Evaluation Review Comments: Renal Specific 60g CCHO-60 Cardiac Diet d/t SCOT over CKD and low GFR Expected Outcomes/Goals: less uremic symptoms, better weight management Plan discussed with: Patient, Other (ICU Nurse) CC Plasma Assessment Blood Product Administration S: [id number] MAGALYS AQUINO MD Apr 02, 2025 21:44
[2025-04-02] MEDS: TPN PER PHARMACY IV NR (21:54)
--- NOTE | 2025-04-02 23:51 | DVHPN2 ---
Progress Note - Dictate Date Seen: Apr 02, 2025 Has the PT tested + for MRSA If YES, has PT been informed?: No Medical Necessity Reason Pt with a Central, PICC or Fol: Yes The following are medically ne: Tijerina Catheter Reason for tijerina catheter: Strict I&O Subjective Patient seen and examined at bedside. Remains on supplemental oxygen Overnight events reviewed. vital signs Vital Sign Date Time Temp Pulse Resp B/P (MAP) Pulse Ox O2 Delivery O2 Flow Rate FiO2 04/02/25 23:15 94 13 82/34 (50) 94 04/02/25 22:00 Nasal Cannula* 3 32 04/02/25 22:00 98.6 98.6 Total Intake and Output 04/01/25 04/01/25 04/02/25 15:00 23:00 07:00 Intake Total 648.830 ml 869.752 ml 798.59 ml Output Total 355 ml 765 ml Balance 648.830 ml 514.752 ml 33.59 ml medications Current Medications Medications Dose Ordered Sig/Sravan Route Start Time Stop Time Status Last Admin Dose Admin Acetaminophen/ Hydrocodone Bitart 1 tab Q4HP PRN PO 03/20/25 12:15 03/30/25 00:45 1 TAB Ondansetron HCl 4 mg Q4HP PRN IV 03/20/25 12:15 03/26/25 08:18 4 MG Docusate Sodium 100 mg BIDPRN PRN PO 03/20/25 12:15 Acetaminophen 650 mg Q6HP PRN PO 03/20/25 12:15 03/28/25 10:59 650 MG Nitroglycerin 0.4 mg Q5MINP PRN SL 03/20/25 12:15 03/25/25 09:26 0.4 MG Morphine Sulfate 2 mg Q30M PRN IV 03/20/25 12:15 03/25/25 09:43 2 MG Allopurinol 100 mg DAILY PO 03/21/25 10:00 04/02/25 10:04 100 MG Apixaban 2.5 mg BID PO 03/20/25 22:00 04/02/25 10:04 2.5 MG Cilostazol 100 mg BID PO 03/20/25 22:00 04/02/25 10:04 100 MG Patient Own Medication 1 tab DAILY PO 03/21/25 10:00 UNV Patient Own Medication 1 tab DAILY PO 03/21/25 10:00 UNV Gabapentin 300 mg DAILY PO 03/21/25 10:00 04/02/25 10:09 300 MG Levothyroxine Sodium 112 mcg DAILY PO 03/21/25 10:00 04/02/25 10:09 112 MCG Levothyroxine Sodium 25 mcg DAILY PO 03/21/25 10:00 04/02/25 10:08 25 MCG Diphenhydramine HCl 50 mg [id number] PRN PO 03/21/25 16:45 03/21/25 22:57 50 MG Albuterol 2.5 mg Q6HR NEB 03/21/25 18:00 04/02/25 19:09 2.5 MG Ipratropium [place] 0.5 mg Q6HWA NEB 03/21/25 18:00 04/02/25 19:09 0.5 MG Patient Own Medication 1 tab BID PO 03/21/25 22:00 04/02/25 21:53 1 TAB Throat Lozenges 1 liv Q2HP PRN MT 03/23/25 04:00 03/23/25 14:52 1 LIV Pantoprazole Sodium 40 mg DAILY IV 03/26/25 10:00 04/02/25 09:19 40 MG Magnesium Oxide 400 mg DAILY PO 03/27/25 10:00 04/02/25 10:04 400 MG Ertapenem 0.5 gm DAILY IM 03/27/25 11:15 Cancel Amino Acids 0 ml @ 0 mls/hr PER PHARMACY IV 03/27/25 12:00 Diagnostic Test (Pha) 1 strip Q6HR 03/27/25 18:00 04/02/25 23:48 1 STRIP Insulin Human Regular FOLLOW SLIDING SCALE Q6HR SC 03/27/25 18:00 04/02/25 23:50 2 UNITS Dextrose 50 ml UD IV 03/27/25 12:30 Norepinephrine Bitartrate 250 ml @ 0.938 mls/ hr Q24H IV 03/28/25 09:15 04/01/25 22:23 6.563 MLS/HR Amiodarone HCl 200 mg Q12HR PO 03/29/25 10:00 04/02/25 21:54 200 MG Nystatin 1 applic DAILY TOP 04/01/25 10:00 04/02/25 10:07 1 APPLIC Bumetanide 25 mg/ Miscellaneous 100 ml @ 8 mls/hr [id number] IV 04/01/25 20:15 04/02/25 20:03 8 MLS/HR Fat Emulsion Intravenous 150 ml/Sodium Chloride 80 meq/ Sodium Acetate 40 meq/Potassium Chloride 10 meq/ Multivitamins 10 ml/Chromium/ Copper/Manganese/ Zinc 1 ml/Amino Acids/Dextrose 1,356 ml @ 56 mls/hr [id number] IV 04/02/25 22:00 04/03/25 21:59 04/02/25 21:54 56 MLS/HR objective Gen.: Patient lying in bed in no apparent distress. On supplemental oxygen. Head: Normocephalic, atraumatic. Eyes: EOMI/PERRLA. Ears: Normal hearing. Normal anatomy. Neck/trachea: Trachea midline, supple. Nose: Normal external anatomy. Mouth: Moist mucous membranes. Chest: Decreased air entry bilaterally. No wheezing or rhonchi. Cardiovascular: Positive S1, positive S2. Regular rate and rhythm. Abdomen: Positive bowel sounds in all 4 quadrants. Soft, non-tender, non- distended. : Deferred. Rectal: Deferred. Skin: Warm, dry. Intact. Extremities: 2+ radial pulses bilaterally. No lower extremity edema. Neuro: Awake, alert, oriented x3. No gross motor or sensory deficits. Cranial nerves II through XII intact. Gait not assessed. laboratory and microbiology Laboratory Tests 04/02/25 03:15 Test 04/02/25 03:15 Range/Units Serum Glucose 152 H 74-106 mg/dL Assessment/Plan Impression: Acute kidney injury Acute hypoxic respiratory failure Dependence on supplemental oxygen Chronic obstructive pulmonary disease Pneumonia Left hydronephrosis Septic shock Events: Remains on supplemental oxygen 3 LPM via NC Taper O2 as tolerated On pressors for hemodynamic support Levophed 4 mcg/min Titrate to keep mean arterial pressure greater than 65 mmHg. Slightly increased pressor requirements - taper as tolerated CT abdomen-pelvis reviewed; small to moderate bilateral pleural effusions and associated compressive atelectasis/consolidation. LLQ pelvic drain in satisfactory position w/ significant interval decrease in size of abscess, currently 2.2 cm (previously 5.7 cm). Head of bed elevation Aspiration precautions Eliquis BID + amiodarone for AFib Clear liquids Plan for tunneled cath Plan for hemodialysis Nephrology recs appreciated. Continue antibiotics Monitor WBC - stable at 9.6 Continue bronchodilators Incentive spirometry Accu-Cheks, ISS. Protonix for GI ppx IV fluids Diurese with Bumex drip Monitor renal function - BUN 93-->110; Cr of 4.27-->4.54 Poor urine output Follow up Nephrology recommendations Monitor electrolytes. Supplement as necessary. NPO TPN for nutritional support Pigtail drain placed for aspiration of left hemipelvic abscess (03/26) Prior cultures from drainage grew ESBL, Enterobacter cloacae. ID recommendations appreciated Monitor pelvic drain output. Monitor hemoglobin - 7.7 g/dL Transfuse if less than 7.0 g/dL. Labs and imaging studies reviewed Plan Supplemental oxygen Titrate to keep O2 sats above 92%. Pressors as necessary for hemodynamic support Titrate to keep mean arterial pressure greater than 65 mmHg. Bronchodilators for COPD - stable Continue antibiotics F/u cultures Amiodarone/Eliquis for AFib Monitor WBC Monitor hemoglobin Plan for tunneled cath Plan for hemodialysis Nephrology recs appreciated. Diurese with Bumex Monitor renal function Monitor electrolytes. Supplement as necessary. Monitor ins and outs. Maintain euvolemia. TPN for nutritional support F/u with urology/urology and gen sx GI prophylaxis. DVT prophylaxis. Prognosis: Poor given patient's multiple co-morbidities. Condition: Critical Rest of plan per hospitalist and other consultants. A total of 35 minutes of critical care time was spent reviewing the patient record, examining the patient, making a diagnostic and therapeutic plan, discussing this plan with the medical personnel, following up on diagnostic studies and following the patient for clinical stability excluding any and all procedures. At least 50% of this time was spent in direct, [id number] contact. Thank you, Dr. Celis, for allowing me to participate in this patient's care. Further recommendations will depend on the patient's clinical course. Please do not hesitate to contact me if you have any questions or concerns. This medical document was created using an electronic medical record system with [employer] system. Although these documentations are being carefully reviewed, there may still be some phonetic and typographical changes. The errors are purely typographical, due to imperfection on the software program, and do not reflect any compromise in the patient's medical care. Dietary Evaluation Review Comments: Renal Specific 60g CCHO-60 Cardiac Diet d/t SCOT over CKD and low GFR Expected Outcomes/Goals: less uremic symptoms, better weight management Plan discussed with: Other (BOSTON Puentes) Critical Care Time(min): 35 CC Plasma Assessment Blood Product Administration S: [id number] PALOMO ROBLES MD Apr 02, 2025 23:51
[2025-04-03] VITALS (100 sets, daily range): BP systolic 79–130; BP diastolic 36–65; PULSE 83–110; RESP 11–28; TEMP 97.4–97.9; O2SAT 92–100
[2025-04-03 04:15] LABS: Alanine Aminotransferase 21 U/L (7-40); Albumin 3.5 g/dL (3.2-4.8); Alkaline Phosphatase 95 U/L (46-116); Anion Gap 12 (5-15); BUN/Creatinine Ratio 24.2 (10.0-20.0); Calcium 9.3 mg/dL (8.7-10.4); Carbon Dioxide 24 mmol/L (20-31); Chloride 101 mmol/L (98-107); Hemoglobin 7.5 g/dL (12.2-16.2); Magnesium 2.4 mg/dL (1.6-2.6); Nucleated Red Blood Cells % 0.1 %; Potassium 3.6 mmol/L (3.5-5.1); Sodium 137 mmol/L (136-145); Total Protein 6.0 g/dL (5.7-8.2)
[2025-04-03 04:16] LABS: Bilirubin, Total 0.5 mg/dL (0.2-1.0)
[2025-04-03 04:17] LABS: Hematocrit 23.0 % (36.0-46.0); Mean Corpuscular Hemoglobin 28.7 pg (28.0-32.0); Mean Corpuscular Volume 87.7 fL (80.0-100.0)
[2025-04-03 04:20] LABS: Glucose 133 mg/dL (74-106); Total Iron Binding Capacity 171.0 ug/dL (250-425)
[2025-04-03 04:21] LABS: Blood Urea Nitrogen 110 mg/dL (9-23)
[2025-04-03 04:43] LABS: INR 1.31 (0.9-1.15); Prothrombin Time 13.5 sec (9.3-11.8)
[2025-04-03 05:01] LABS: Iron 19.0 ug/dL (50-170)
[2025-04-03 06:00] LABS: Triglycerides 58 mg/dL (< 150)
[2025-04-03] MEDS: SODIUM CHL 0.9% 1000 ML BAG XX ONE (07:00)
--- NOTE | 2025-04-03 07:52 | DVHPN2 ---
Progress Note - Dictate Date Seen: Apr 03, 2025 Has the PT tested + for MRSA If YES, has PT been informed?: No Medical Necessity Reason Pt with a Central, PICC or Fol: Yes The following are medically ne: Tijerina Catheter Reason for tijerina catheter: Strict I&O vital signs Vital Sign Date Time Temp Pulse Resp B/P (MAP) Pulse Ox O2 Delivery O2 Flow Rate FiO2 04/03/25 06:47 89 14 100 04/03/25 06:45 99/54 (69) 04/03/25 06:39 Nasal Cannula* 2 28 04/03/25 06:00 97.8 97.8 Total Intake and Output 04/02/25 04/02/25 04/03/25 15:00 23:00 07:00 Intake Total 646.5 ml 994.7 ml 570.6 ml Output Total 1000 ml 955 ml Balance 646.5 ml -5.3 ml -384.4 ml medications Current Medications Medications Dose Ordered Sig/Sravan Route Start Time Stop Time Status Last Admin Dose Admin Acetaminophen/ Hydrocodone Bitart 1 tab Q4HP PRN PO 03/20/25 12:15 03/30/25 00:45 1 TAB Ondansetron HCl 4 mg Q4HP PRN IV 03/20/25 12:15 03/26/25 08:18 4 MG Docusate Sodium 100 mg BIDPRN PRN PO 03/20/25 12:15 Acetaminophen 650 mg Q6HP PRN PO 03/20/25 12:15 03/28/25 10:59 650 MG Nitroglycerin 0.4 mg Q5MINP PRN SL 03/20/25 12:15 03/25/25 09:26 0.4 MG Morphine Sulfate 2 mg Q30M PRN IV 03/20/25 12:15 03/25/25 09:43 2 MG Allopurinol 100 mg DAILY PO 03/21/25 10:00 04/02/25 10:04 100 MG Apixaban 2.5 mg BID PO 03/20/25 22:00 04/02/25 10:04 2.5 MG Cilostazol 100 mg BID PO 03/20/25 22:00 04/02/25 10:04 100 MG Patient Own Medication 1 tab DAILY PO 03/21/25 10:00 UNV Patient Own Medication 1 tab DAILY PO 03/21/25 10:00 UNV Gabapentin 300 mg DAILY PO 03/21/25 10:00 04/02/25 10:09 300 MG Levothyroxine Sodium 112 mcg DAILY PO 03/21/25 10:00 04/02/25 10:09 112 MCG Levothyroxine Sodium 25 mcg DAILY PO 03/21/25 10:00 04/02/25 10:08 25 MCG Diphenhydramine HCl 50 mg [id number] PRN PO 03/21/25 16:45 03/21/25 22:57 50 MG Albuterol 2.5 mg Q6HR NEB 03/21/25 18:00 04/03/25 06:37 2.5 MG Ipratropium [place] 0.5 mg Q6HWA NEB 03/21/25 18:00 04/03/25 06:37 0.5 MG Patient Own Medication 1 tab BID PO 03/21/25 22:00 04/02/25 21:53 1 TAB Throat Lozenges 1 liv Q2HP PRN MT 03/23/25 04:00 03/23/25 14:52 1 LIV Pantoprazole Sodium 40 mg DAILY IV 03/26/25 10:00 04/02/25 09:19 40 MG Magnesium Oxide 400 mg DAILY PO 03/27/25 10:00 04/02/25 10:04 400 MG Ertapenem 0.5 gm DAILY IM 03/27/25 11:15 Cancel Amino Acids 0 ml @ 0 mls/hr PER PHARMACY IV 03/27/25 12:00 Diagnostic Test (Pha) 1 strip Q6HR 03/27/25 18:00 04/03/25 06:17 1 STRIP Insulin Human Regular FOLLOW SLIDING SCALE Q6HR SC 03/27/25 18:00 04/03/25 06:18 2 UNITS Dextrose 50 ml UD IV 03/27/25 12:30 Norepinephrine Bitartrate 250 ml @ 0.938 mls/ hr Q24H IV 03/28/25 09:15 04/03/25 05:53 7.5 MLS/HR Amiodarone HCl 200 mg Q12HR PO 03/29/25 10:00 04/02/25 21:54 200 MG Nystatin 1 applic DAILY TOP 04/01/25 10:00 04/02/25 10:07 1 APPLIC Bumetanide 25 mg/ Miscellaneous 100 ml @ 8 mls/hr [id number] IV 04/01/25 20:15 04/02/25 20:03 8 MLS/HR Fat Emulsion Intravenous 150 ml/Sodium Chloride 80 meq/ Sodium Acetate 40 meq/Potassium Chloride 10 meq/ Multivitamins 10 ml/Chromium/ Copper/Manganese/ Zinc 1 ml/Amino Acids/Dextrose 1,356 ml @ 56 mls/hr [id number] IV 04/02/25 22:00 04/03/25 21:59 04/02/25 21:54 56 MLS/HR laboratory and microbiology Laboratory Tests 04/03/25 03:30 Test 04/03/25 03:30 Range/Units Serum Glucose 133 H 74-106 mg/dL Assessment/Plan Patient is a 74-year-old female who was admitted on March 20, 2025 for abdominal pain/nausea/vomiting. She is admitted to ICU for septic shock. On March 24, 2025, cardiology was involved for cardiac aspects of care. Patient is known to our practice from before and previous admissions. She is known to have significant alcohol abuse (drinks whiskey every day) and also history of pulmonary hypertension/type 2 pulmonary hypertension, diastolic heart failure. Does have poor functional capacity and is bed-bound. Is significantly morbidly obese. Does have baseline history of atrial fibrillation and is on Eliquis as outpatient. Is found to have septic shock and possible pelvic abscess. Is seen by surgery/Urology/pulmonary/GI. Denies chest pains. Denies palpitations. Is noncompliant with medication and followups. While being managed in ICU was found to have atrial fibrillation with RVR. She mentions that she does go to [facility] regularly. She has had multiple surgeries in the bilateral feet. She also has history of COPD/asthma with chronic respiratory failure (on home oxygen). Morbidly obese. Not in acute distress. No JVD. Mucosa is dry. Mucosa is pink. No JVD. No carotid bruit. Not using accessory muscles of breathing. Scattered rhonchi in the lungs is heard. Cardiac: Irregular, no thrill. Abdomen is obese and soft. There is no gross hepatomegaly, but it is presence can not be ruled out (body habitus, morbidly obese). There is 3+ edema in bilateral lower extremities which extends to abdominal wall. Past medical history includes morbid obesity, atrial fibrillation (on Eliquis as outpatient), COPD/asthma with chronic respiratory failure on home oxygen, morbid obesity, hypertension, hyperlipidemia, chronic lymphedema, Diastolic heart failure with type 2 pulmonary hypertension, rheumatoid arthritis, osteoarthritis, peripheral vascular disease, CKD (stage IV), anemia, alcohol abuse, neuropathy, gout, old history of right and left foot fracture and their management, status post right knee replacement, status post , bed-bound at baseline and functional quadriplegia. Patient drinks whiskey daily. Goes to Nephrology regularly. Reportedly, there has been some concern about going to have fistula creation on preparation for dialysis? Echocardiogram of January 03 2024 (performed in [facility]) revealed ejection fraction of 60%, mild biatrial enlargement, mild MR/TR and right ventricular systolic pressure of 31 mm Hg. Echocardiogram of (performed in [facility]) revealed: EF of 50 to 55%, Dilated right ventricle with normal systolic function. Severe biatrial enlargement. Mild AI, mild to moderate MR, moderate TR and RVSP of 51 mmHg. Ascending Aorta was 3.7 cm. Echocardiogram of November 09, 2024 revealed ejection fraction of 72%, mild right ventricular enlargement, moderate biatrial enlargement, mild to moderate tricuspid regurgitation, mild mitral regurgitation, right ventricular systolic pressure 54 mm Hg Echocardiogram of February 23, 2025 revealed ejection fraction of around 50%, mild concentric left ventricular hypertrophy, right ventricular enlargement with preserved systolic function. Biatrial enlargement, mild aortic insufficiency, [id number] mitral regurgitation and tricuspid regurgitation. IVC was significantly dilated. Right ventricular systolic pressure of of 55 mm Hg WBC: 5.2 - 8.2-12.3 - 8.5 - 11.3 - 13.7 - 21.6 - 16.9 - 15.1 - 12.1 - 10.6 - 10.1 - 10.5 - 9.5 - 9.6 - 9.5 Hemoglobin: 6.7 - 8.6 - 8.1 - 7.6 - 7.9 - 7.7 - 7.8 - 7.8 - 7.6 - 7.5 - 7.1 - 7.0 - 8.5 - 8.2 - 7.6 - 7.7 - 7.5 Platelet: 57 - 73 - 91 - 108 - 159 - 189 - 257 - 322 - 312 - 291 - 240 - 243 - 239 - 227 - 229 - 232 Creatinine: 3.29 - 2.63 - 2.77 - 2.59 - 2.13 - 1.98 - 1.98 - 2.47- 2.98 - 3.36 - 3.56 - 3.83 - 4.12 - 4.27 - 4.67 - 4.54 Potassium: 3.9 - 3.4 - 3.8 - 3.3 - 3.4 - 3.9 - 3.5 - 3.5 - 3.3 - 3.4 - 3.7 - 3.8 - 4.0 - 4.3 - 4.0 - 3.6 Sodium: 124 - 129 - 129 - 131 - 135 - 138 - 138 - 139 - 138 - 137 - 137 - 136 - 135 - 135 - 136 - 137 AST/ALT: 143/111 - 347/315 - 48/358 - 11/120 - - <864 - <850 - <34 - <05/23 - 05/17 Troponin (high sensitive): 32 - 31 - 34 TSH: 0.17 - 0.15 T3: 0.40 (low) T4: 5.7 Free T4: 1.27 Free T3: 1.55 (low) Urine and Aspirate culture: ESBL E-coli Chest x-ray revealed: IMPRESSION: Cardiomegaly. Repeat chest x-ray revealed: IMPRESSION: 1. Cardiomegaly with increased interstitial prominence suggestive of CHF exacerbation. 2. Pulmonary arterial hypertension. Repeat chest x-ray revealed: IMPRESSION: Cardiomegaly with mild pulmonary congestion. . Repeat chest x-ray revealed: IMPRESSION: Cardiomegaly with pulmonary congestion and edema. Superimposed pneumonia cannot be excluded. Repeat chest x-ray revealed: IMPRESSION: Worsening right lower lung airspace disease. Suggestion of small bilateral pleural effusions. Repeat chest xray revealed: IMPRESSION: No significant interval change Abdominal ultrasound revealed: IMPRESSION: Small left hydronephrosis Renal scan revealed: IMPRESSION: Bilateral renal obstruction is present which is not response to Lasix administration suggesting that the kidney may be minimally functional. Abdomen and pelvic CT scan revealed: IMPRESSION: Moderate left hydroureteronephrosis. Suggestion of possible small abscess formation in the left hemipelvis associated with the sigmoid colon measuring 5.7 cm. This may represent site of ureteral obstruction. Clinical correlation advised. Examination is limited secondary to lack of intravenous and oral contrast administration. Abdomen and pelvis CT revealed: IMPRESSION: Sigmoid colonic diverticulitis with an adjacent 6 cm fluid collection with gas, could be an abscess. Probable fistula of the sigmoid to the fluid collection, and possibly with the urinary bladder, which is decompressed with a Tijerina. Possible trace left hydronephrosis with perinephric fat stranding. Repeat CT of abdomen and pelvis revealed: IMPRESSION: Small to moderate bilateral pleural effusions and associated compressive atelectasis / consolidation. Left lower quadrant pelvic drain in satisfactory position with significant interval decrease in size of abscess currently measuring 2.2 cm, previously 5.[address] guided abscess drainage: IMPRESSION: CT guided placement of 8 dutch pigtail drain into a left hemipelvic abscess with 30 mL purulent fluid aspirated. PLAN: Routine tube care. Renal ultrasound revealed: IMPRESSION: Unremarkable renal ultrasound without hydronephrosis seen. EKG revealed atrial fibrillation with RVR Tele reveals atrial fibrillation with RVR Echocardiogram revealed: Left ventricle: Mild concentric left ventricular hypertrophy was seen. LVEF was around 50%. Right ventricle was mildly dilated with reduced systolic function. Both atria were dilated. Aortic valve was not well visualized. There was no aortic insufficiency/stenosis. There was mild mitral regurgitation. There was [id number] tricuspid regurgitation. Pulmonary valve was not well visualized. Right ventricular systolic pressure was assessed at 50 mm Hg. IVC was dilated. There was no pericardial effusion. Patient is a 74-year-old female with known history of diastolic heart failure with type 2 pulmonary hypertension who presented with abdominal pain. He is admitted to ICU with septic shock. Did have thrombocytopenia which slowly improved. Was significantly anemic and was transfused PRBC. There has been question about pelvic abscess and the patient is on antibiotics. Patient is being followed by surgery/Urology/pulmonary/GI. It is of note that the patient does have history of significant alcohol abuse (drinks good amount of whiskey daily) which could contribute to to some component of the clinical picture. Does have baseline history of pulmonary hypertension. Usually is on some amount of diuretic (Bumex) as outpatient. Clinically, the patient does have dry mucosa and maybe behind fluids at the time of evaluation. Does have baseline poor functional capacity. Does have history of recent sepsis. s/p CT guided abscess drainage. Seen by Nephrology. Diuretics are on hold. TFT are in favor of subclinical thyroid problem. Still with poor kidney function. Nephrology suggested hemodialysis, patient is hesitant. Significant anemia, status post PRBC transfusion Thrombocytopenia, resolved Septic shock SCOT on CKD Hydronephrosis Pelvic abscess Transaminitis Acute on chronic diastolic heart failure Pulmonary Hypertension, type 2 Alcohol abuse Morbid obesity Poor functional capacity Bed-bound at baseline Atrial fibrillation with RVR Hyperlipidemia Osteoarthritis Rheumatoid arthritis Peripheral vascular disease Abdominal abscess? s/p CT guided abscess drainage Cardiac suggestion for management: Manage in ICU Follow-up electrolytes and kidney function tests and correct abnormalities Full anticoagulation (on Eliquis presently), long-term Septic shock, still on pressure support and IV antibiotics Nephrology follow up (Nephrology suggested Dialysis, patient is hesitant, on bumex drip) To go for access and possible dialysis today Consider IV fluids On oral amiodarone Pressor support at this point to keep mean arterial pressure above 65 Evaluation and management of sepsis/infection as per primary team Evaluation and management of alcohol abuse/prevention of withdrawal as per primary team Evaluation and management of pelvic abscess/hydronephrosis as per primary team/surgery/Urology Further evaluation and management depends on the above and clinical course A total of 75 minutes was spent reviewing the patient record, examining the patient, making a diagnostic and therapeutic plan, discussing this plan with medical personnel, following up on diagnostic studies and following the patient for clinical stability excluding any and all procedures. At least 50% of this time was spent in direct, [id number] contact. Thank you for allowing me to participate in this patient's care. Further recommendations will depend on patient's clinical course. Please do not hesitate to contact me if you have any questions or concerns. This medical document was created using electronic medical record system with [email or web address] computerized dictation system. Although this document has been carefully reviewed, there may still be some phonetic and typographical errors. These areas are purely typographical due to the imperfection of the software programs, and do not reflect any compromise in the patient's medical care. Dietary Evaluation Review Comments: Renal Specific 60g CCHO-60 Cardiac Diet d/t SCOT over CKD and low GFR Expected Outcomes/Goals: less uremic symptoms, better weight management Plan discussed with: Patient, Other (nurse) CC Plasma Assessment Blood Product Administration S: [id number] AUSTIN ROMERO MD Apr 03, 2025 07:52
[2025-04-03] MEDS: fentaNYL CITRATE 100 MCG/2 ML VL ONE (09:21)
[2025-04-03] MEDS: HEPARIN SODIUM (PORCINE) 5000 UNITS/ML 1ML VIAL ONE (09:21)
[2025-04-03] MEDS: MIDAZOLAM HCL 2MG/2ML 2ml VIAL (1mg/ml) ONE (09:21)
[2025-04-03] MEDS: LIDOCAINE 2%HCL (LOCAL ANESTH.) INJ 20ML MDV ONE (09:22)
--- NOTE | 2025-04-03 10:24 | DVHPN2 ---
Subjective Patient continues to have pain to left lower quadrant where IR drain was placed. Reviewed: Care Plan, H&P, Labs, Medications, Previous Orders, Radiology Changes from previous H/P or p: No Changes General: Per HPI Eyes: No Pain, No Vision change, No Conjunctivae inflammation, No Eyelid inflammation, No Other, No Redness ENT: No Ear pain, No Ear discharge, No Nose pain, No Nose discharge, No Nose congestion, No Mouth pain, No Mouth swelling, No Throat pain, No Throat swelling, No Other Cardiovascular: No Chest Pain, No Palpitations, No Orthopnea, No Paroxysmal Noc. Dyspnea, No Edema, No Lt Headedness, No Other Respiratory: No Cough, No Dry, No Shortness of breath, No SOB with excertion, No Wheezing, No Hemoptysis, No Pleuritic Pain, No Sputum, No Other Gastrointestinal: Nausea, Vomiting, Abdominal Pain Genitourinary: No Dysuria, No Frequency, No Incontinence, No Hematuria, No Retention, No Other Musculoskeletal: No other, No neck pain, No shoulder pain, No arm pain, No back pain, No hand pain, No leg pain, No foot pain Skin: No Rash, No Lesions, No Jaundice, No Bruising, No Other Objective Vitals Vital Signs Date Time Temp Pulse Resp B/P (MAP) Pulse Ox O2 Delivery O2 Flow Rate FiO2 04/03/25 08:00 91 04/03/25 08:00 12 95 Nasal Cannula* 3 32 04/03/25 06:45 99/54 (69) 04/03/25 06:00 97.8 97.8 Intake/Output Intake and Output 04/03/25 07:00 Intake Total 2211.8 ml Output Total 1955 ml Balance 256.8 ml Intake Oral 370 ml IV Total 1841.8 ml Output Urine Total 1950 ml Drainage Total 5 ml General Appearance: Alert, Oriented X3, Cooperative, Other HEENT: Atraumatic, PERRLA Cardiovascular: Normal S1, Normal S2, Other Abdomen: Normal bowel sounds, Other Extremities: No edema, Normal pulses Neuro: Sensation intact, Cranial nerves 3-12 NL Skin: Dry, Intact Psych/Mental Status: Mental status NL, Mood NL Medications Current Medications Medications Dose Ordered Sig/Sravan Route Start Time Stop Time Status Last Admin Dose Admin Acetaminophen/ Hydrocodone Bitart 1 tab Q4HP PRN PO 03/20/25 12:15 03/30/25 00:45 1 TAB Ondansetron HCl 4 mg Q4HP PRN IV 03/20/25 12:15 03/26/25 08:18 4 MG Docusate Sodium 100 mg BIDPRN PRN PO 03/20/25 12:15 Acetaminophen 650 mg Q6HP PRN PO 03/20/25 12:15 03/28/25 10:59 650 MG Nitroglycerin 0.4 mg Q5MINP PRN SL 03/20/25 12:15 03/25/25 09:26 0.4 MG Morphine Sulfate 2 mg Q30M PRN IV 03/20/25 12:15 03/25/25 09:43 2 MG Allopurinol 100 mg DAILY PO 03/21/25 10:00 04/02/25 10:04 100 MG Apixaban 2.5 mg BID PO 03/20/25 22:00 04/02/25 10:04 2.5 MG Cilostazol 100 mg BID PO 03/20/25 22:00 04/02/25 10:04 100 MG Patient Own Medication 1 tab DAILY PO 03/21/25 10:00 UNV Patient Own Medication 1 tab DAILY PO 03/21/25 10:00 UNV Gabapentin 300 mg DAILY PO 03/21/25 10:00 04/02/25 10:09 300 MG Levothyroxine Sodium 112 mcg DAILY PO 03/21/25 10:00 04/02/25 10:09 112 MCG Levothyroxine Sodium 25 mcg DAILY PO 03/21/25 10:00 04/02/25 10:08 25 MCG Diphenhydramine HCl 50 mg [id number] PRN PO 03/21/25 16:45 03/21/25 22:57 50 MG Albuterol 2.5 mg Q6HR NEB 03/21/25 18:00 04/03/25 06:37 2.5 MG Ipratropium [place] 0.5 mg Q6HWA NEB 03/21/25 18:00 04/03/25 06:37 0.5 MG Patient Own Medication 1 tab BID PO 03/21/25 22:00 04/02/25 21:53 1 TAB Throat Lozenges 1 liv Q2HP PRN MT 03/23/25 04:00 03/23/25 14:52 1 LIV Pantoprazole Sodium 40 mg DAILY IV 03/26/25 10:00 04/02/25 09:19 40 MG Magnesium Oxide 400 mg DAILY PO 03/27/25 10:00 04/02/25 10:04 400 MG Ertapenem 0.5 gm DAILY IM 03/27/25 11:15 Cancel Diagnostic Test (Pha) 1 strip Q6HR 03/27/25 18:00 04/03/25 06:17 1 STRIP Insulin Human Regular FOLLOW SLIDING SCALE Q6HR SC 03/27/25 18:00 04/03/25 06:18 2 UNITS Dextrose 50 ml UD IV 03/27/25 12:30 Norepinephrine Bitartrate 250 ml @ 0.938 mls/ hr Q24H IV 03/28/25 09:15 04/03/25 05:53 7.5 MLS/HR Amiodarone HCl 200 mg Q12HR PO 03/29/25 10:00 04/02/25 21:54 200 MG Nystatin 1 applic DAILY TOP 04/01/25 10:00 04/02/25 10:07 1 APPLIC Bumetanide 25 mg/ Miscellaneous 100 ml @ 8 mls/hr [id number] IV 04/01/25 20:15 04/02/25 20:03 8 MLS/HR Multivit/Ca Carb/ B Cmplx/FA/Prenat 1 tab DAILY PO 04/03/25 10:00 Ferrous Sulfate 325 mg BIDWM PO 04/03/25 18:00 Laboratory Results Laboratory Tests 04/03/25 03:30 Chemistry Test 04/03/25 03:30 Albumin 3.5 g/dL (3.2-4.8) Calcium Level 9.3 mg/dL (8.7-10.4) Magnesium Level 2.4 mg/dL (1.6-2.6) Phosphorus Level 3.4 mg/dL (2.4-5.1) Total Protein 6.0 g/dL (5.7-8.2) Coagulation Test 04/03/25 03:30 Prothrombin Time 13.5 sec (9.3-11.8) H Prothrombin Time INR 1.31 (0.9-1.15) H Lipid panel Test 04/03/25 03:30 Triglycerides Level 58 mg/dL (< 150) LFT Test 04/03/25 03:30 Alanine Aminotransferase (ALT) 21 U/L (7-40) Alkaline Phosphatase 95 U/L (46-116) Aspartate Amino Transferase (AST) 8 U/L (13-40) L Total Bilirubin 0.5 mg/dL (0.2-1.0) Urinalysis Test 03/20/25 09:34 Urine Color Colorless (Yellow) Urine Clarity Turbid (Clear) H Urine pH 5.0 (5.0-9.0) Urine Specific [place] 1.015 (1.001-1.035) Urine Protein Negative (Negative) Urine Ketones Negative (Negative) Urine Blood Negative /uL (Negative) Urine Nitrite Negative (Negative) Urine Bilirubin Negative (Negative) Urine Urobilinogen Normal mg/dL (Negative) Urine Leukocyte Esterase 3+ /uL (Negative) Urine RBC 1 /hpf (0 - 4) Urine Microscopic WBC 255 /HPF (0-5) H Urine Squamous Epithelial Cells Few /hpf (<5) Urine Bacteria Few /hpf (None Seen) H Urine Glucose Normal mg/dL (Normal) Microbiology Microbiology Date/Time Source Procedure Growth Status 03/26/25 15:00 Aspirate Gram Stain - Final Complete 03/26/25 15:00 Body Fluid Culture - Final Escherichia coli - ESBL Enterobacter cloacae Proteus mirabilis Complete 03/23/25 04:30 Throat Nose/Throat Culture - Final Complete 03/21/25 18:00 Urine - Catheterized Urine Culture - Final Escherichia coli - ESBL Klebsiella pneumoniae - ESBL Complete 03/20/25 21:52 Nose MRSA Screen - Final Complete Labs and/or images reviewed: Labs reviewed by me, Image(s) reviewed by me Assessment/Plan Assessment/Plan Impression: -septic shock -diverticular abscess -AFib with RVR -morbid obesity -obstructive uropathy -CKD stage 4 -acute kidney injury, vasomotor nephropathy -acute on chronic systolic and diastolic heart failure -bed-bound status -complicated cystitis with ESBL in the urine. 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 Tolerating per orally intake. White blood cell count remains normal -continue Meropenem -repeat renal ultrasound reveals that hydronephrosis has resolved. Further course of care per Urology -surgical consultation: Recommendations reviewed -continue anticoagulation with Eliquis -clear liquid diet -repeat labs and Chest x ray in a.m. Critical care time spent with patient discussing and formulating plan of care: 40 minutes. This does not include time spent performing procedures. This medical document was created using an electronic medical record system with [employer] dictation system. Although this document has been carefully reviewed, there may still be some phonetic and typographical errors. These areas are purely typographical due to imperfections of the software programs, and do not reflect any compromise in the patient's medical care. Plan discussed with: Patient, Other (RN) My Orders Orders - GONZALO ASKEW NP Procedure Category Date Status Time Clear Liq Diet DIET 04/02/25 Transmitted Dinner Basic Metabolic Panel LAB 04/04/25 Verified 05:00 Basic Metabolic Panel LAB 04/05/25 Verified 05:00 Basic Metabolic Panel LAB 04/06/25 Verified 05:00 Magnesium LAB 04/04/25 Verified 05:00 Magnesium LAB 04/05/25 Verified 05:00 Magnesium LAB 04/06/25 Verified 05:00 Complete Blood Count LAB 04/04/25 Verified 05:00 Complete Blood Count LAB 04/05/25 Verified 05:00 Complete Blood Count LAB 04/06/25 Verified 05:00 B-Complex W/ C & PHA 04/03/25 In Process Folic Tablet 10:00 Ferrous Sulfate Tablet PHA 04/03/25 In Process 18:00 Insertion Of Venous XY 04/03/25 Logged Cath 09:28 Date of Service: Apr 03, 2025 Billing Provider: GONZALO ASKEW NP Common Visit Codes: [id number] CARE 30-74 MIN GONZALO ASKEW NP Apr 03, 2025 10:24
--- NOTE | 2025-04-03 10:47 | DVH ---
XY Insertion of Venous Cath, HISTORY: HD CATH PL PROCEDURE: Informed consent was obtained. The patient was placed supine on the interventional table. A limited localization ultrasound of the right neck base was obtained. The right neck base and upper chest were prepped with chlorhexidine which was allowed to dry and draped in the usual sterile fashio n. Time out was performed. IV sedation was administered. The skin and the soft tissues were infiltrat ed with 1% Lidocaine . With real-time ultrasound guidance, the internal jugular vein was accessed wit h a micropuncture kit, and an image documenting patency was recorded to PACS. A subcutaneous tunneled tract was created from the right upper chest to the venotomy site. A 14.5 belizean Crucible Path, 29 cm l saw hemodialysis catheter was advanced through the tunneled tract. Fluoroscopy was used to advance a guidewire through the internal jugular vein into the inferior vena cava. Following serial dilatation, a 15 belizean peel-away sheath was introduced, though which was adva nced the catheter into the right atrium. The catheter tip position was confirmed with fluoroscopy. Th ere was satisfactory flow in both lumens. The catheter lumens were flushed with saline and heparin wa s left indwelling in the catheter. A post-procedure image of the chest was obtained. The neck incisio n site was closed with a Dermabond and dressed sterilely. The catheter was sutured at the skin surfac e and exit site also dressed sterilely. No immediate complication was identified. DAP 144 FLUOROSCOPY TIME: 1.6 minutes. SEDATION: Dr. An Ardon was personally responsible for the administration of moderate sedation during the procedure performed, including the use of an independent trained observer who had no other duties during the procedure. The drugs utilized were IV fentanyl and versed (see nursing log for details). The total time of supervision by the attending physician was approximately 30 minutes. FINDINGS: Widely patent right IJV. Post procedure image demonstrates smooth course of the hemodialysi s catheter with the tip in the right atrium. 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 Plan: Please contact IR for removal when no longer needed.
[2025-04-03] MEDS: ALBUMIN 25% 100 ML IV SCH (11:00)
[2025-04-03] MEDS: ALBUMIN 25% 200 ML IV ONE (11:20)
[2025-04-03] MEDS: B-COMPLEX W/ C & FOLIC ACID(NEPHROVITE TAB) PO SCH (14:22)
--- NOTE | 2025-04-03 16:14 | DVHPN2 ---
Progress Note - Dictate Date Seen: Apr 03, 2025 Has the PT tested + for MRSA If YES, has PT been informed?: No Medical Necessity Reason Pt with a Central, PICC or Fol: Yes The following are medically ne: Tijerina Catheter Reason for tijerina catheter: Strict I&O Subjective No new complaints ; abdominal pain improved Eating clear liquid diet Patient is resting comfortably ; no shortness of breath ALEKSANDAR drain output is minimal bloody less than 5 mL Patient is undergoing hemodialysis vital signs Vital Sign Date Time Temp Pulse Resp B/P (MAP) Pulse Ox O2 Delivery O2 Flow Rate FiO2 04/03/25 12:00 94 04/03/25 12:00 16 98 Nasal Cannula* 3 32 04/03/25 11:27 103/53 04/03/25 08:00 97.9 97.9 Total Intake and Output 04/02/25 04/02/25 04/03/25 15:00 23:00 07:00 Intake Total 646.5 ml 994.7 ml 642.1 ml Output Total 1000 ml 955 ml Balance 646.5 ml -5.3 ml -312.9 ml medications Current Medications Medications Dose Ordered Sig/Sravan Route Start Time Stop Time Status Last Admin Dose Admin Acetaminophen/ Hydrocodone Bitart 1 tab Q4HP PRN PO 03/20/25 12:15 03/30/25 00:45 1 TAB Ondansetron HCl 4 mg Q4HP PRN IV 03/20/25 12:15 03/26/25 08:18 4 MG Docusate Sodium 100 mg BIDPRN PRN PO 03/20/25 12:15 Acetaminophen 650 mg Q6HP PRN PO 03/20/25 12:15 03/28/25 10:59 650 MG Nitroglycerin 0.4 mg Q5MINP PRN SL 03/20/25 12:15 03/25/25 09:26 0.4 MG Morphine Sulfate 2 mg Q30M PRN IV 03/20/25 12:15 03/25/25 09:43 2 MG Allopurinol 100 mg DAILY PO 03/21/25 10:00 04/03/25 14:22 100 MG Apixaban 2.5 mg BID PO 03/20/25 22:00 04/02/25 10:04 2.5 MG Cilostazol 100 mg BID PO 03/20/25 22:00 04/02/25 10:04 100 MG Patient Own Medication 1 tab DAILY PO 03/21/25 10:00 UNV Patient Own Medication 1 tab DAILY PO 03/21/25 10:00 UNV Gabapentin 300 mg DAILY PO 03/21/25 10:00 04/03/25 14:23 300 MG Levothyroxine Sodium 112 mcg DAILY PO 03/21/25 10:00 04/03/25 14:21 112 MCG Levothyroxine Sodium 25 mcg DAILY PO 03/21/25 10:00 04/03/25 14:21 25 MCG Diphenhydramine HCl 50 mg [id number] PRN PO 03/21/25 16:45 03/21/25 22:57 50 MG Albuterol 2.5 mg Q6HR NEB 03/21/25 18:00 04/03/25 11:28 2.5 MG Ipratropium [place] 0.5 mg Q6HWA NEB 03/21/25 18:00 04/03/25 11:28 0.5 MG Patient Own Medication 1 tab BID PO 03/21/25 22:00 04/02/25 21:53 1 TAB Throat Lozenges 1 liv Q2HP PRN MT 03/23/25 04:00 03/23/25 14:52 1 LIV Pantoprazole Sodium 40 mg DAILY IV 03/26/25 10:00 04/03/25 14:21 40 MG Magnesium Oxide 400 mg DAILY PO 03/27/25 10:00 04/03/25 14:22 400 MG Ertapenem 0.5 gm DAILY IM 03/27/25 11:15 Cancel Diagnostic Test (Pha) 1 strip Q6HR 03/27/25 18:00 04/03/25 11:46 1 STRIP Insulin Human Regular FOLLOW SLIDING SCALE Q6HR SC 03/27/25 18:00 04/03/25 06:18 2 UNITS Dextrose 50 ml UD IV 03/27/25 12:30 Norepinephrine Bitartrate 250 ml @ 0.938 mls/ hr Q24H IV 03/28/25 09:15 04/03/25 05:53 7.5 MLS/HR Amiodarone HCl 200 mg Q12HR PO 03/29/25 10:00 04/03/25 14:21 200 MG Nystatin 1 applic DAILY TOP 04/01/25 10:00 04/03/25 10:00 1 APPLIC Bumetanide 25 mg/ Miscellaneous 100 ml @ 8 mls/hr [id number] IV 04/01/25 20:15 04/03/25 11:27 8 MLS/HR Multivit/Ca Carb/ B Cmplx/FA/Prenat 1 tab DAILY PO 04/03/25 10:00 04/03/25 14:22 1 TAB Ferrous Sulfate 325 mg BIDWM PO 04/03/25 18:00 objective General examination- awake, alert HEENT- PEERLA, morbidly obese Cardiovascular- S1-S2 audible, rate and rhythm regular, no murmur Respiratory- CTAB, no wheeze or rhonchi Gastrointestinal-lower abdominal wall tenderness+, bowel sound+. Nondistended Musculoskeletal-no acute joint swelling or tenderness or redness Lower extremity- no leg edema Neurological- cranial nerves intact, no acute dysarthria or dysphagia laboratory and microbiology Laboratory Tests 04/03/25 03:30 Test 04/03/25 03:30 Range/Units Serum Glucose 133 H 74-106 mg/dL Problems(with codes): (1) Pelvic abscess in female (2) Generalized weakness (3) Shortness of breath (4) Atrial fibrillation with RVR (5) Acute on chronic systolic (congestive) heart failure Prognosis Plan Continue IV meropenem Continue clear liquid diet today If clinically stable consider advancing to full liquid diet in a.m. Monitor labs Dietary Evaluation Review Comments: Renal Specific 60g CCHO-60 Cardiac Diet d/t SCOT over CKD and low GFR Expected Outcomes/Goals: less uremic symptoms, better weight management Plan discussed with: Patient CC Plasma Assessment Blood Product Administration S: [id number] MAGALYS AQUINO MD Apr 03, 2025 16:14
--- NOTE | 2025-04-03 17:31 | DVHPN2 ---
Progress Note - Dictate Date Seen: Apr 03, 2025 Has the PT tested + for MRSA If YES, has PT been informed?: No Medical Necessity Reason Pt with a Central, PICC or Fol: Yes The following are medically ne: Tijerina Catheter Reason for tijerina catheter: Strict I&O Subjective Shortness of breath is improved. Completed dialysis today vital signs Vital Sign Date Time Temp Pulse Resp B/P (MAP) Pulse Ox O2 Delivery O2 Flow Rate FiO2 04/03/25 16:15 98 18 123/52 (75) 93 04/03/25 16:00 Nasal Cannula* 3 32 04/03/25 16:00 97.9 97.9 Total Intake and Output 04/02/25 04/02/25 04/03/25 15:00 23:00 07:00 Intake Total 646.5 ml 994.7 ml 642.1 ml Output Total 1000 ml 955 ml Balance 646.5 ml -5.3 ml -312.9 ml medications Current Medications Medications Dose Ordered Sig/Sravan Route Start Time Stop Time Status Last Admin Dose Admin Acetaminophen/ Hydrocodone Bitart 1 tab Q4HP PRN PO 03/20/25 12:15 03/30/25 00:45 1 TAB Ondansetron HCl 4 mg Q4HP PRN IV 03/20/25 12:15 03/26/25 08:18 4 MG Docusate Sodium 100 mg BIDPRN PRN PO 03/20/25 12:15 Acetaminophen 650 mg Q6HP PRN PO 03/20/25 12:15 03/28/25 10:59 650 MG Nitroglycerin 0.4 mg Q5MINP PRN SL 03/20/25 12:15 03/25/25 09:26 0.4 MG Morphine Sulfate 2 mg Q30M PRN IV 03/20/25 12:15 03/25/25 09:43 2 MG Allopurinol 100 mg DAILY PO 03/21/25 10:00 04/03/25 14:22 100 MG Apixaban 2.5 mg BID PO 03/20/25 22:00 04/02/25 10:04 2.5 MG Cilostazol 100 mg BID PO 03/20/25 22:00 04/02/25 10:04 100 MG Patient Own Medication 1 tab DAILY PO 03/21/25 10:00 UNV Patient Own Medication 1 tab DAILY PO 03/21/25 10:00 UNV Gabapentin 300 mg DAILY PO 03/21/25 10:00 04/03/25 14:23 300 MG Levothyroxine Sodium 112 mcg DAILY PO 03/21/25 10:00 04/03/25 14:21 112 MCG Levothyroxine Sodium 25 mcg DAILY PO 03/21/25 10:00 04/03/25 14:21 25 MCG Diphenhydramine HCl 50 mg [id number] PRN PO 03/21/25 16:45 03/21/25 22:57 50 MG Albuterol 2.5 mg Q6HR NEB 03/21/25 18:00 04/03/25 11:28 2.5 MG Ipratropium [place] 0.5 mg Q6HWA NEB 03/21/25 18:00 04/03/25 11:28 0.5 MG Patient Own Medication 1 tab BID PO 03/21/25 22:00 04/02/25 21:53 1 TAB Throat Lozenges 1 liv Q2HP PRN MT 03/23/25 04:00 03/23/25 14:52 1 LIV Pantoprazole Sodium 40 mg DAILY IV 03/26/25 10:00 04/03/25 14:21 40 MG Magnesium Oxide 400 mg DAILY PO 03/27/25 10:00 04/03/25 14:22 400 MG Ertapenem 0.5 gm DAILY IM 03/27/25 11:15 Cancel Diagnostic Test (Pha) 1 strip Q6HR 03/27/25 18:00 04/03/25 11:46 1 STRIP Insulin Human Regular FOLLOW SLIDING SCALE Q6HR SC 03/27/25 18:00 04/03/25 06:18 2 UNITS Dextrose 50 ml UD IV 03/27/25 12:30 Norepinephrine Bitartrate 250 ml @ 0.938 mls/ hr Q24H IV 03/28/25 09:15 04/03/25 05:53 7.5 MLS/HR Amiodarone HCl 200 mg Q12HR PO 03/29/25 10:00 04/03/25 14:21 200 MG Nystatin 1 applic DAILY TOP 04/01/25 10:00 04/03/25 10:00 1 APPLIC Multivit/Ca Carb/ B Cmplx/FA/Prenat 1 tab DAILY PO 04/03/25 10:00 04/03/25 14:22 1 TAB Ferrous Sulfate 325 mg BIDWM PO 04/03/25 18:00 Bumetanide 2 mg BID IV 04/03/25 22:00 UNV objective HEENT: No evidence of JVD, no oral ulcers. Pulmonary: Crackles on auscultation bilaterally Cardiovascular S1-S2, no S3 or S4 Abdomen: Bowel sounds positive, soft no rebound tenderness Skin: No rash Neurological: Alert, oriented, no focal weakness Extremities: 1+ lower extremity edema pitting Right upper chest CVC in place. laboratory and microbiology Laboratory Tests 04/03/25 03:30 Test 04/03/25 03:30 Range/Units Serum Glucose 133 H 74-106 mg/dL Assessment/Plan Assessment: Oliguric Acute kidney injury superimposed on CKD 4 Suboptimal response to high doses of loop diuretic. Sepsis with a urine culture growing E coli and Klebsiella both of which are ESBL . Wound culture with E coli ESBL Septic shock Point of care ultrasound 04/03/2025 shows dilated IVC, not collapsible which suggest patient not being volume depleted. Status post drainage of left pelvic abscess Left hydronephrosis which has a resolved Acute on chronic diastolic heart failure Anemia status post transfusion of PRBC Pulmonary hypertension Atrial fibrillation Bed-bound patient Chronic alcoholism in remission, last alcoholic beverage three months ago. Assessment/Plan Dialysis was completed today, 2.5 hours, repeat tomorrow 3 hours. home health care social worker to arrange dialysis chair time and monitor for renal recovery. Continue pressor support Would want to continue with the medical management for now. Bumex 2 mg IV b.i.d. monitor urinary output Continue TPN Overall long-term prognosis is guarded Dietary Evaluation Review Comments: Renal Specific 60g CCHO-60 Cardiac Diet d/t SCOT over CKD and low GFR Expected Outcomes/Goals: less uremic symptoms, better weight management Plan discussed with: Patient CC Plasma Assessment Blood Product Administration S: [id number] AFTAB KENDALL MD Apr 03, 2025 17:31
[2025-04-03] MEDS: FERROUS SULFATE 325mg EC TAB PO SCH (18:26)
[2025-04-03] MEDS: EPOETIN ALFA-EPBX 10,000 UNIT/1ML VIAL SC ONE (20:44)
[2025-04-03] MEDS: BUMETANIDE 2.5mg/10ml (0.25 mg/ml) INJ IV SCH (21:53)
--- NOTE | 2025-04-03 23:22 | DVHPN2 ---
Progress Note - Dictate Date Seen: Apr 03, 2025 Has the PT tested + for MRSA If YES, has PT been informed?: No Medical Necessity Reason Pt with a Central, PICC or Fol: Yes The following are medically ne: Tijerina Catheter Reason for tijerina catheter: Strict I&O Subjective Patient seen and examined at bedside. Remains on supplemental oxygen Overnight events reviewed. vital signs Vital Sign Date Time Temp Pulse Resp B/P (MAP) Pulse Ox O2 Delivery O2 Flow Rate FiO2 04/03/25 22:55 87/34 04/03/25 22:00 13 95 Nasal Cannula* 3 32 04/03/25 21:30 102 04/03/25 20:00 97.6 97.6 Total Intake and Output 04/02/25 04/02/25 04/03/25 15:00 23:00 07:00 Intake Total 646.5 ml 994.7 ml 642.1 ml Output Total 1000 ml 955 ml Balance 646.5 ml -5.3 ml -312.9 ml medications Current Medications Medications Dose Ordered Sig/Sravan Route Start Time Stop Time Status Last Admin Dose Admin Acetaminophen/ Hydrocodone Bitart 1 tab Q4HP PRN PO 03/20/25 12:15 03/30/25 00:45 1 TAB Ondansetron HCl 4 mg Q4HP PRN IV 03/20/25 12:15 03/26/25 08:18 4 MG Docusate Sodium 100 mg BIDPRN PRN PO 03/20/25 12:15 Acetaminophen 650 mg Q6HP PRN PO 03/20/25 12:15 03/28/25 10:59 650 MG Nitroglycerin 0.4 mg Q5MINP PRN SL 03/20/25 12:15 03/25/25 09:26 0.4 MG Morphine Sulfate 2 mg Q30M PRN IV 03/20/25 12:15 03/25/25 09:43 2 MG Allopurinol 100 mg DAILY PO 03/21/25 10:00 04/03/25 14:22 100 MG Apixaban 2.5 mg BID PO 03/20/25 22:00 04/03/25 21:53 2.5 MG Cilostazol 100 mg BID PO 03/20/25 22:00 04/03/25 21:53 100 MG Patient Own Medication 1 tab DAILY PO 03/21/25 10:00 UNV Patient Own Medication 1 tab DAILY PO 03/21/25 10:00 UNV Gabapentin 300 mg DAILY PO 03/21/25 10:00 04/03/25 14:23 300 MG Levothyroxine Sodium 112 mcg DAILY PO 03/21/25 10:00 04/03/25 14:21 112 MCG Levothyroxine Sodium 25 mcg DAILY PO 03/21/25 10:00 04/03/25 14:21 25 MCG Diphenhydramine HCl 50 mg [id number] PRN PO 03/21/25 16:45 03/21/25 22:57 50 MG Albuterol 2.5 mg Q6HR NEB 03/21/25 18:00 04/03/25 19:41 2.5 MG Ipratropium [place] 0.5 mg Q6HWA NEB 03/21/25 18:00 04/03/25 19:41 0.5 MG Patient Own Medication 1 tab BID PO 03/21/25 22:00 04/03/25 21:53 1 TAB Throat Lozenges 1 liv Q2HP PRN MT 03/23/25 04:00 03/23/25 14:52 1 LIV Pantoprazole Sodium 40 mg DAILY IV 03/26/25 10:00 04/03/25 14:21 40 MG Magnesium Oxide 400 mg DAILY PO 03/27/25 10:00 04/03/25 14:22 400 MG Ertapenem 0.5 gm DAILY IM 03/27/25 11:15 Cancel Diagnostic Test (Pha) 1 strip Q6HR 03/27/25 18:00 04/03/25 18:16 1 STRIP Insulin Human Regular FOLLOW SLIDING SCALE Q6HR SC 03/27/25 18:00 04/03/25 06:18 2 UNITS Dextrose 50 ml UD IV 03/27/25 12:30 Norepinephrine Bitartrate 250 ml @ 0.938 mls/ hr Q24H IV 03/28/25 09:15 04/03/25 05:53 7.5 MLS/HR Amiodarone HCl 200 mg Q12HR PO 03/29/25 10:00 04/03/25 21:53 200 MG Nystatin 1 applic DAILY TOP 04/01/25 10:00 04/03/25 10:00 1 APPLIC Multivit/Ca Carb/ B Cmplx/FA/Prenat 1 tab DAILY PO 04/03/25 10:00 04/03/25 14:22 1 TAB Ferrous Sulfate 325 mg BIDWM PO 04/03/25 18:00 04/03/25 18:26 325 MG Bumetanide 2 mg BID IV 04/03/25 22:00 04/03/25 21:53 2 MG Iron Sucrose 110 ml @ 110 mls/hr DAILY@1200 IV 04/04/25 12:00 04/05/25 12:59 objective Gen.: Patient lying in bed in no apparent distress. On supplemental oxygen. Head: Normocephalic, atraumatic. Eyes: EOMI/PERRLA. Ears: Normal hearing. Normal anatomy. Neck/trachea: Trachea midline, supple. Nose: Normal external anatomy. Mouth: Moist mucous membranes. Chest: Decreased air entry bilaterally. No wheezing or rhonchi. Cardiovascular: Positive S1, positive S2. Regular rate and rhythm. Abdomen: Positive bowel sounds in all 4 quadrants. Soft, non-tender, non- distended. : Deferred. Rectal: Deferred. Skin: Warm, dry. Intact. Extremities: 2+ radial pulses bilaterally. No lower extremity edema. Neuro: Awake, alert, oriented x3. No gross motor or sensory deficits. Cranial nerves II through XII intact. Gait not assessed. laboratory and microbiology Laboratory Tests 04/03/25 03:30 Test 04/03/25 03:30 Range/Units Serum Glucose 133 H 74-106 mg/dL Assessment/Plan Impression: Acute kidney injury Acute hypoxic respiratory failure Dependence on supplemental oxygen Chronic obstructive pulmonary disease Pneumonia Left hydronephrosis Septic shock Events: Remains on supplemental oxygen 4 LPM via NC Taper O2 as tolerated On pressors for hemodynamic support Levophed 4 mcg/min Titrate to keep mean arterial pressure greater than 65 mmHg. Slightly increased pressor requirements - taper as tolerated Head of bed elevation Aspiration precautions Eliquis BID + amiodarone for AFib Clear liquids Tunneled catheter placed, s/p hemodialysis Blood filter Nephrology recs appreciated. Continue antibiotics Monitor WBC - stable at 9.5 Continue bronchodilators Incentive spirometry Accu-Cheks, ISS. Protonix for GI ppx IV fluids Bumex IVP Off Bumex drip Monitor renal function - BUN 93-->110; Cr of 4.27-->4.54 Poor urine output Follow up Nephrology recommendations Monitor electrolytes. Supplement as necessary. NPO TPN for nutritional support Pigtail drain placed for aspiration of left hemipelvic abscess (03/26) Prior cultures from drainage grew ESBL, Enterobacter cloacae. ID recommendations appreciated Monitor pelvic drain output. Monitor hemoglobin - 7.5 g/dL Transfuse if less than 7.0 g/dL. Iron supplementation CT abdomen-pelvis revealed small to moderate bilateral pleural effusions and associated compressive atelectasis/consolidation. LLQ pelvic drain in satisfactory position w/ significant interval decrease in size of abscess, currently 2.2 cm (previously 5.7 cm). Labs and imaging studies reviewed Plan Supplemental oxygen Titrate to keep O2 sats above 92%. Pressors as necessary for hemodynamic support Titrate to keep mean arterial pressure greater than 65 mmHg. Bronchodilators for COPD - stable Continue antibiotics F/u cultures Amiodarone/Eliquis for AFib Monitor WBC Monitor hemoglobin S/p tunneled cath Hemodialysis per Nephrology Nephrology recs appreciated. Diurese with Bumex Monitor renal function Monitor electrolytes. Supplement as necessary. Monitor ins and outs. Maintain euvolemia. TPN for nutritional support F/u with urology/urology and gen sx GI prophylaxis. DVT prophylaxis. Prognosis: Poor given patient's multiple co-morbidities. Condition: Critical Rest of plan per hospitalist and other consultants. A total of 35 minutes of critical care time was spent reviewing the patient record, examining the patient, making a diagnostic and therapeutic plan, discussing this plan with the medical personnel, following up on diagnostic studies and following the patient for clinical stability excluding any and all procedures. At least 50% of this time was spent in direct, [id number] contact. Thank you, Dr. Celis, for allowing me to participate in this patient's care. Further recommendations will depend on the patient's clinical course. Please do not hesitate to contact me if you have any questions or concerns. This medical document was created using an electronic medical record system with [employer] system. Although these documentations are being carefully reviewed, there may still be some phonetic and typographical changes. The errors are purely typographical, due to imperfection on the software program, and do not reflect any compromise in the patient's medical care. Dietary Evaluation Review Comments: Renal Specific 60g CCHO-60 Cardiac Diet d/t SCOT over CKD and low GFR Expected Outcomes/Goals: less uremic symptoms, better weight management Plan discussed with: Patient, Other (BOSTON Zarate) CC Plasma Assessment Blood Product Administration S: [id number] PALOMO ROBLES MD Apr 03, 2025 23:22
[2025-04-04] VITALS (103 sets, daily range): BP systolic 85–134; BP diastolic 36–66; PULSE 90–114; RESP 11–24; TEMP 97.4–98.3; O2SAT 85–99
[2025-04-04 03:37] LABS: Hemoglobin 7.1 g/dL (12.2-16.2)
[2025-04-04 03:39] LABS: Hematocrit 21.6 % (36.0-46.0); Mean Corpuscular Hemoglobin 28.4 pg (28.0-32.0); Mean Corpuscular Volume 86.7 fL (80.0-100.0); Nucleated Red Blood Cells % 0.1 %
[2025-04-04 03:43] LABS: Chloride 101 mmol/L (98-107); Sodium 140 mmol/L (136-145)
[2025-04-04 03:44] LABS: Anion Gap 11 (5-15); Carbon Dioxide 28 mmol/L (20-31)
[2025-04-04 03:45] LABS: Calcium 9.2 mg/dL (8.7-10.4)
[2025-04-04 03:49] LABS: BUN/Creatinine Ratio 22.6 (10.0-20.0); Glucose 93 mg/dL (74-106)
[2025-04-04 03:50] LABS: Blood Urea Nitrogen 66 mg/dL (9-23); Magnesium 2.2 mg/dL (1.6-2.6); Potassium 3.3 mmol/L (3.5-5.1)
--- NOTE | 2025-04-04 06:30 | DVHPN2 ---
Progress Note - Dictate Date Seen: Apr 04, 2025 Has the PT tested + for MRSA If YES, has PT been informed?: No Medical Necessity Reason Pt with a Central, PICC or Fol: Yes The following are medically ne: Tijerina Catheter Reason for tijerina catheter: Strict I&O vital signs Vital Sign Date Time Temp Pulse Resp B/P (MAP) Pulse Ox O2 Delivery O2 Flow Rate FiO2 04/04/25 06:19 115/49 04/04/25 06:09 97 19 99 04/04/25 06:03 Nasal Cannula* 3 32 04/03/25 20:00 97.6 97.6 Total Intake and Output 04/03/25 04/03/25 04/04/25 15:00 23:00 07:00 Intake Total 140.7 ml 1189.380 ml 765.83 ml Output Total 1000 ml 550 ml Balance 140.7 ml 189.380 ml 215.83 ml medications Current Medications Medications Dose Ordered Sig/Sravan Route Start Time Stop Time Status Last Admin Dose Admin Acetaminophen/ Hydrocodone Bitart 1 tab Q4HP PRN PO 03/20/25 12:15 03/30/25 00:45 1 TAB Ondansetron HCl 4 mg Q4HP PRN IV 03/20/25 12:15 03/26/25 08:18 4 MG Docusate Sodium 100 mg BIDPRN PRN PO 03/20/25 12:15 Acetaminophen 650 mg Q6HP PRN PO 03/20/25 12:15 03/28/25 10:59 650 MG Nitroglycerin 0.4 mg Q5MINP PRN SL 03/20/25 12:15 03/25/25 09:26 0.4 MG Morphine Sulfate 2 mg Q30M PRN IV 03/20/25 12:15 03/25/25 09:43 2 MG Allopurinol 100 mg DAILY PO 03/21/25 10:00 04/03/25 14:22 100 MG Apixaban 2.5 mg BID PO 03/20/25 22:00 04/03/25 21:53 2.5 MG Cilostazol 100 mg BID PO 03/20/25 22:00 04/03/25 21:53 100 MG Patient Own Medication 1 tab DAILY PO 03/21/25 10:00 UNV Patient Own Medication 1 tab DAILY PO 03/21/25 10:00 UNV Gabapentin 300 mg DAILY PO 03/21/25 10:00 04/03/25 14:23 300 MG Levothyroxine Sodium 112 mcg DAILY PO 03/21/25 10:00 04/03/25 14:21 112 MCG Levothyroxine Sodium 25 mcg DAILY PO 03/21/25 10:00 04/03/25 14:21 25 MCG Diphenhydramine HCl 50 mg [id number] PRN PO 03/21/25 16:45 03/21/25 22:57 50 MG Albuterol 2.5 mg Q6HR NEB 03/21/25 18:00 04/04/25 06:03 2.5 MG Ipratropium [place] 0.5 mg Q6HWA NEB 03/21/25 18:00 04/04/25 06:03 0.5 MG Patient Own Medication 1 tab BID PO 03/21/25 22:00 04/03/25 21:53 1 TAB Throat Lozenges 1 liv Q2HP PRN MT 03/23/25 04:00 03/23/25 14:52 1 LIV Pantoprazole Sodium 40 mg DAILY IV 03/26/25 10:00 04/03/25 14:21 40 MG Magnesium Oxide 400 mg DAILY PO 03/27/25 10:00 04/03/25 14:22 400 MG Ertapenem 0.5 gm DAILY IM 03/27/25 11:15 Cancel Diagnostic Test (Pha) 1 strip Q6HR 03/27/25 18:00 04/04/25 06:00 1 STRIP Insulin Human Regular FOLLOW SLIDING SCALE Q6HR SC 03/27/25 18:00 04/03/25 06:18 2 UNITS Dextrose 50 ml UD IV 03/27/25 12:30 Norepinephrine Bitartrate 250 ml @ 0.938 mls/ hr Q24H IV 03/28/25 09:15 04/03/25 05:53 7.5 MLS/HR Amiodarone HCl 200 mg Q12HR PO 03/29/25 10:00 04/03/25 21:53 200 MG Nystatin 1 applic DAILY TOP 04/01/25 10:00 04/03/25 10:00 1 APPLIC Multivit/Ca Carb/ B Cmplx/FA/Prenat 1 tab DAILY PO 04/03/25 10:00 04/03/25 14:22 1 TAB Ferrous Sulfate 325 mg BIDWM PO 04/03/25 18:00 04/03/25 18:26 325 MG Bumetanide 2 mg BID IV 04/03/25 22:00 04/03/25 21:53 2 MG Iron Sucrose 110 ml @ 110 mls/hr DAILY@1200 IV 04/04/25 12:00 04/05/25 12:59 laboratory and microbiology Laboratory Tests 04/04/25 03:00 Test 04/04/25 03:00 Range/Units Serum Glucose 93 74-106 mg/dL Assessment/Plan Patient is a 74-year-old female who was admitted on March 20, 2025 for abdominal pain/nausea/vomiting. She is admitted to ICU for septic shock. On March 24, 2025, cardiology was involved for cardiac aspects of care. Patient is known to our practice from before and previous admissions. She is known to have significant alcohol abuse (drinks whiskey every day) and also history of pulmonary hypertension/type 2 pulmonary hypertension, diastolic heart failure. Does have poor functional capacity and is bed-bound. Is significantly morbidly obese. Does have baseline history of atrial fibrillation and is on Eliquis as outpatient. Is found to have septic shock and possible pelvic abscess. Is seen by surgery/Urology/pulmonary/GI. Denies chest pains. Denies palpitations. Is noncompliant with medication and followups. While being managed in ICU was found to have atrial fibrillation with RVR. She mentions that she does go to medical records auditor regularly. She has had multiple surgeries in the bilateral feet. She also has history of COPD/asthma with chronic respiratory failure (on home oxygen). Morbidly obese. Not in acute distress. No JVD. Mucosa is dry. Mucosa is pink. No JVD. No carotid bruit. Not using accessory muscles of breathing. Scattered rhonchi in the lungs is heard. Cardiac: Irregular, no thrill. Abdomen is obese and soft. There is no gross hepatomegaly, but it is presence can not be ruled out (body habitus, morbidly obese). There is 3+ edema in bilateral lower extremities which extends to abdominal wall. Past medical history includes morbid obesity, atrial fibrillation (on Eliquis as outpatient), COPD/asthma with chronic respiratory failure on home oxygen, morbid obesity, hypertension, hyperlipidemia, chronic lymphedema, Diastolic heart failure with type 2 pulmonary hypertension, rheumatoid arthritis, osteoarthritis, peripheral vascular disease, CKD (stage IV), anemia, alcohol abuse, neuropathy, gout, old history of right and left foot fracture and their management, status post right knee replacement, status post , bed-bound at baseline and functional quadriplegia. Patient drinks whiskey daily. Goes to Nephrology regularly. Reportedly, there has been some concern about going to have fistula creation on preparation for dialysis? Echocardiogram of January 03 2024 (performed in [facility]) revealed ejection fraction of 60%, mild biatrial enlargement, mild MR/TR and right ventricular systolic pressure of 31 mm Hg. Echocardiogram of (performed in [facility]) revealed: EF of 50 to 55%, Dilated right ventricle with normal systolic function. Severe biatrial enlargement. Mild AI, mild to moderate MR, moderate TR and RVSP of 51 mmHg. Ascending Aorta was 3.7 cm. Echocardiogram of November 09, 2024 revealed ejection fraction of 72%, mild right ventricular enlargement, moderate biatrial enlargement, mild to moderate tricuspid regurgitation, mild mitral regurgitation, right ventricular systolic pressure 54 mm Hg Echocardiogram of February 23, 2025 revealed ejection fraction of around 50%, mild concentric left ventricular hypertrophy, right ventricular enlargement with preserved systolic function. Biatrial enlargement, mild aortic insufficiency, [id number] mitral regurgitation and tricuspid regurgitation. IVC was significantly dilated. Right ventricular systolic pressure of of 55 mm Hg WBC: 5.2 - 8.2-12.3 - 8.5 - 11.3 - 13.7 - 21.6 - 16.9 - 15.1 - 12.1 - 10.6 - 10.1 - 10.5 - 9.5 - 9.6 - 9.5 - 8.2 Hemoglobin: 6.7 - 8.6 - 8.1 - 7.6 - 7.9 - 7.7 - 7.8 - 7.8 - 7.6 - 7.5 - 7.1 - 7.0 - 8.5 - 8.2 - 7.6 - 7.7 - 7.5 - 7.1 Platelet: 57 - 73 - 91 - 108 - 159 - 189 - 257 - 322 - 312 - 291 - 240 - 243 - 239 - 227 - 229 - 232 - 234 Creatinine: 3.29 - 2.63 - 2.77 - 2.59 - 2.13 - 1.98 - 1.98 - 2.47- 2.98 - 3.36 - 3.56 - 3.83 - 4.12 - 4.27 - 4.67 - 4.54 - 2.92 Potassium: 3.9 - 3.4 - 3.8 - 3.3 - 3.4 - 3.9 - 3.5 - 3.5 - 3.3 - 3.4 - 3.7 - 3.8 - 4.0 - 4.3 - 4.0 - 3.6 - 3.3 Sodium: 124 - 129 - 129 - 131 - 135 - 138 - 138 - 139 - 138 - 137 - 137 - 136 - 135 - 135 - 136 - 137 - 140 AST/ALT: 143/111 - 347/315 - 48/358 - 11/120 - - < - < - < - <05/23 - 05/17 Troponin (high sensitive): 32 - 31 - 34 TSH: 0.17 - 0.15 T3: 0.40 (low) T4: 5.7 Free T4: 1.27 Free T3: 1.55 (low) Urine and Aspirate culture: ESBL E-coli Chest x-ray revealed: IMPRESSION: Cardiomegaly. Repeat chest x-ray revealed: IMPRESSION: 1. Cardiomegaly with increased interstitial prominence suggestive of CHF exacerbation. 2. Pulmonary arterial hypertension. Repeat chest x-ray revealed: IMPRESSION: Cardiomegaly with mild pulmonary congestion. . Repeat chest x-ray revealed: IMPRESSION: Cardiomegaly with pulmonary congestion and edema. Superimposed pneumonia cannot be excluded. Repeat chest x-ray revealed: IMPRESSION: Worsening right lower lung airspace disease. Suggestion of small bilateral pleural effusions. Repeat chest xray revealed: IMPRESSION: No significant interval change Abdominal ultrasound revealed: IMPRESSION: Small left hydronephrosis Renal scan revealed: IMPRESSION: Bilateral renal obstruction is present which is not response to Lasix administration suggesting that the kidney may be minimally functional. Abdomen and pelvic CT scan revealed: IMPRESSION: Moderate left hydroureteronephrosis. Suggestion of possible small abscess formation in the left hemipelvis associated with the sigmoid colon measuring 5.7 cm. This may represent site of ureteral obstruction. Clinical correlation advised. Examination is limited secondary to lack of intravenous and oral contrast administration. Abdomen and pelvis CT revealed: IMPRESSION: Sigmoid colonic diverticulitis with an adjacent 6 cm fluid collection with gas, could be an abscess. Probable fistula of the sigmoid to the fluid collection, and possibly with the urinary bladder, which is decompressed with a Tijerina. Possible trace left hydronephrosis with perinephric fat stranding. Repeat CT of abdomen and pelvis revealed: IMPRESSION: Small to moderate bilateral pleural effusions and associated compressive atelectasis / consolidation. Left lower quadrant pelvic drain in satisfactory position with significant interval decrease in size of abscess currently measuring 2.2 cm, previously 5.[address] guided abscess drainage: IMPRESSION: CT guided placement of 8 welsh pigtail drain into a left hemipelvic abscess with 30 mL purulent fluid aspirated. PLAN: Routine tube care. Renal ultrasound revealed: IMPRESSION: Unremarkable renal ultrasound without hydronephrosis seen. EKG revealed atrial fibrillation with RVR Tele reveals atrial fibrillation with RVR Echocardiogram revealed: Left ventricle: Mild concentric left ventricular hypertrophy was seen. LVEF was around 50%. Right ventricle was mildly dilated with reduced systolic function. Both atria were dilated. Aortic valve was not well visualized. There was no aortic insufficiency/stenosis. There was mild mitral regurgitation. There was [id number] tricuspid regurgitation. Pulmonary valve was not well visualized. Right ventricular systolic pressure was assessed at 50 mm Hg. IVC was dilated. There was no pericardial effusion. Patient is a 74-year-old female with known history of diastolic heart failure with type 2 pulmonary hypertension who presented with abdominal pain. He is admitted to ICU with septic shock. Did have thrombocytopenia which slowly improved. Was significantly anemic and was transfused PRBC. There has been question about pelvic abscess and the patient is on antibiotics. Patient is being followed by surgery/Urology/pulmonary/GI. It is of note that the patient does have history of significant alcohol abuse (drinks good amount of whiskey daily) which could contribute to to some component of the clinical picture. Does have baseline history of pulmonary hypertension. Usually is on some amount of diuretic (Bumex) as outpatient. Clinically, the patient does have dry mucosa and maybe behind fluids at the time of evaluation. Does have baseline poor functional capacity. Does have history of recent sepsis. s/p CT guided abscess drainage. Seen by Nephrology. Diuretics are on hold. TFT are in favor of subclinical thyroid problem. Still with poor kidney function. Nephrology suggested hemodialysis, patient is hesitant. Significant anemia, status post PRBC transfusion Thrombocytopenia, resolved Septic shock SCOT on CKD Hydronephrosis Pelvic abscess Transaminitis Acute on chronic diastolic heart failure Pulmonary Hypertension, type 2 Alcohol abuse Morbid obesity Poor functional capacity Bed-bound at baseline Atrial fibrillation with RVR Hyperlipidemia Osteoarthritis Rheumatoid arthritis Peripheral vascular disease Abdominal abscess? s/p CT guided abscess drainage Cardiac suggestion for management: Manage in ICU Follow-up electrolytes and kidney function tests and correct abnormalities Full anticoagulation (on Eliquis presently), long-term Septic shock, still on pressure support and IV antibiotics Started on HD Consider IV fluids On oral amiodarone Pressor support at this point to keep mean arterial pressure above 65 Evaluation and management of sepsis/infection as per primary team Evaluation and management of alcohol abuse/prevention of withdrawal as per primary team Evaluation and management of pelvic abscess/hydronephrosis as per primary team/surgery/Urology Further evaluation and management depends on the above and clinical course A total of 75 minutes was spent reviewing the patient record, examining the patient, making a diagnostic and therapeutic plan, discussing this plan with medical personnel, following up on diagnostic studies and following the patient for clinical stability excluding any and all procedures. At least 50% of this time was spent in direct, [id number] contact. Thank you for allowing me to participate in this patient's care. Further recommendations will depend on patient's clinical course. Please do not hesitate to contact me if you have any questions or concerns. This medical document was created using electronic medical record system with [employer] computerized dictation system. Although this document has been carefully reviewed, there may still be some phonetic and typographical errors. These areas are purely typographical due to the imperfection of the software programs, and do not reflect any compromise in the patient's medical care. Dietary Evaluation Review Comments: Renal Specific 60g CCHO-60 Cardiac Diet d/t SCOT over CKD and low GFR Expected Outcomes/Goals: less uremic symptoms, better weight management Plan discussed with: Patient, Other (nurse) CC Plasma Assessment Blood Product Administration S: [id number] AUSTIN ROMERO MD Apr 04, 2025 06:30
[2025-04-04] MEDS ORDERED: SODIUM CHL 0.9% 1000 ML BAG XX ONE (07:00)
[2025-04-04] MEDS: SODIUM CHLORIDE 0.9% 250 ML IV ONE (07:00)
--- NOTE | 2025-04-04 09:49 | DVHPN2 ---
Subjective Denies any symptoms at this time Reviewed: Care Plan, H&P, Labs, Medications, Previous Orders, Radiology Changes from previous H/P or p: No Changes General: Per HPI Eyes: No Pain, No Vision change, No Conjunctivae inflammation, No Eyelid inflammation, No Other, No Redness ENT: No Ear pain, No Ear discharge, No Nose pain, No Nose discharge, No Nose congestion, No Mouth pain, No Mouth swelling, No Throat pain, No Throat swelling, No Other Cardiovascular: No Chest Pain, No Palpitations, No Orthopnea, No Paroxysmal Noc. Dyspnea, No Edema, No Lt Headedness, No Other Respiratory: No Cough, No Dry, No Shortness of breath, No SOB with excertion, No Wheezing, No Hemoptysis, No Pleuritic Pain, No Sputum, No Other Gastrointestinal: Nausea, Vomiting, Abdominal Pain Genitourinary: No Dysuria, No Frequency, No Incontinence, No Hematuria, No Retention, No Other Musculoskeletal: No other, No neck pain, No shoulder pain, No arm pain, No back pain, No hand pain, No leg pain, No foot pain Skin: No Rash, No Lesions, No Jaundice, No Bruising, No Other Objective Vitals Vital Signs Date Time Temp Pulse Resp B/P (MAP) Pulse Ox O2 Delivery O2 Flow Rate FiO2 04/04/25 08:15 112/54 04/04/25 06:30 104 18 95 04/04/25 06:03 Nasal Cannula* 3 32 04/04/25 04:30 97.8 97.8 Intake/Output Intake and Output 04/04/25 07:00 Intake Total 2095.910 ml Output Total 1550 ml Balance 545.910 ml Intake Oral 1700 ml IV Total 395.910 ml Output Urine Total 1550 ml Drainage Total 0 ml # Bowel Movements 2 General Appearance: Alert, Oriented X3, Cooperative, Other HEENT: Atraumatic, PERRLA Cardiovascular: Normal S1, Normal S2, Other Abdomen: Normal bowel sounds, Other Extremities: No edema, Normal pulses Neuro: Sensation intact, Cranial nerves 3-12 NL Skin: Dry, Intact Psych/Mental Status: Mental status NL, Mood NL Medications Current Medications Medications Dose Ordered Sig/Sravan Route Start Time Stop Time Status Last Admin Dose Admin Acetaminophen/ Hydrocodone Bitart 1 tab Q4HP PRN PO 03/20/25 12:15 03/30/25 00:45 1 TAB Ondansetron HCl 4 mg Q4HP PRN IV 03/20/25 12:15 03/26/25 08:18 4 MG Docusate Sodium 100 mg BIDPRN PRN PO 03/20/25 12:15 Acetaminophen 650 mg Q6HP PRN PO 03/20/25 12:15 03/28/25 10:59 650 MG Nitroglycerin 0.4 mg Q5MINP PRN SL 03/20/25 12:15 03/25/25 09:26 0.4 MG Morphine Sulfate 2 mg Q30M PRN IV 03/20/25 12:15 03/25/25 09:43 2 MG Allopurinol 100 mg DAILY PO 03/21/25 10:00 04/03/25 14:22 100 MG Apixaban 2.5 mg BID PO 03/20/25 22:00 04/03/25 21:53 2.5 MG Cilostazol 100 mg BID PO 03/20/25 22:00 04/03/25 21:53 100 MG Patient Own Medication 1 tab DAILY PO 03/21/25 10:00 UNV Patient Own Medication 1 tab DAILY PO 03/21/25 10:00 UNV Gabapentin 300 mg DAILY PO 03/21/25 10:00 04/03/25 14:23 300 MG Levothyroxine Sodium 112 mcg DAILY PO 03/21/25 10:00 04/03/25 14:21 112 MCG Levothyroxine Sodium 25 mcg DAILY PO 03/21/25 10:00 04/03/25 14:21 25 MCG Diphenhydramine HCl 50 mg [id number] PRN PO 03/21/25 16:45 03/21/25 22:57 50 MG Albuterol 2.5 mg Q6HR NEB 03/21/25 18:00 04/04/25 06:03 2.5 MG Ipratropium [place] 0.5 mg Q6HWA NEB 03/21/25 18:00 04/04/25 06:03 0.5 MG Patient Own Medication 1 tab BID PO 03/21/25 22:00 04/03/25 21:53 1 TAB Throat Lozenges 1 liv Q2HP PRN MT 03/23/25 04:00 03/23/25 14:52 1 LIV Pantoprazole Sodium 40 mg DAILY IV 03/26/25 10:00 04/03/25 14:21 40 MG Magnesium Oxide 400 mg DAILY PO 03/27/25 10:00 04/03/25 14:22 400 MG Ertapenem 0.5 gm DAILY IM 03/27/25 11:15 Cancel Diagnostic Test (Pha) 1 strip Q6HR 03/27/25 18:00 04/04/25 06:00 1 STRIP Insulin Human Regular FOLLOW SLIDING SCALE Q6HR SC 03/27/25 18:00 04/03/25 06:18 2 UNITS Dextrose 50 ml UD IV 03/27/25 12:30 Norepinephrine Bitartrate 250 ml @ 0.938 mls/ hr Q24H IV 03/28/25 09:15 04/04/25 08:15 11.25 MLS/HR Amiodarone HCl 200 mg Q12HR PO 03/29/25 10:00 04/03/25 21:53 200 MG Nystatin 1 applic DAILY TOP 04/01/25 10:00 04/03/25 10:00 1 APPLIC Multivit/Ca Carb/ B Cmplx/FA/Prenat 1 tab DAILY PO 04/03/25 10:00 04/03/25 14:22 1 TAB Ferrous Sulfate 325 mg BIDWM PO 04/03/25 18:00 04/04/25 08:21 325 MG Bumetanide 2 mg BID IV 04/03/25 22:00 04/03/25 21:53 2 MG Iron Sucrose 110 ml @ 110 mls/hr DAILY@1200 IV 04/04/25 12:00 04/05/25 12:59 Laboratory Results Laboratory Tests 04/04/25 03:00 Chemistry Test 04/04/25 03:00 Calcium Level 9.2 mg/dL (8.7-10.4) Magnesium Level 2.2 mg/dL (1.6-2.6) Urinalysis Test 03/20/25 09:34 Urine Color Colorless (Yellow) Urine Clarity Turbid (Clear) H Urine pH 5.0 (5.0-9.0) Urine Specific [place] 1.015 (1.001-1.035) Urine Protein Negative (Negative) Urine Ketones Negative (Negative) Urine Blood Negative /uL (Negative) Urine Nitrite Negative (Negative) Urine Bilirubin Negative (Negative) Urine Urobilinogen Normal mg/dL (Negative) Urine Leukocyte Esterase 3+ /uL (Negative) Urine RBC 1 /hpf (0 - 4) Urine Microscopic WBC 255 /HPF (0-5) H Urine Squamous Epithelial Cells Few /hpf (<5) Urine Bacteria Few /hpf (None Seen) H Urine Glucose Normal mg/dL (Normal) Microbiology Microbiology Date/Time Source Procedure Growth Status 03/26/25 15:00 Aspirate Gram Stain - Final Complete 03/26/25 15:00 Body Fluid Culture - Final Escherichia coli - ESBL Enterobacter cloacae Proteus mirabilis Complete 03/23/25 04:30 Throat Nose/Throat Culture - Final Complete 03/21/25 18:00 Urine - Catheterized Urine Culture - Final Escherichia coli - ESBL Klebsiella pneumoniae - ESBL Complete 03/20/25 21:52 Nose MRSA Screen - Final Complete Labs and/or images reviewed: Labs reviewed by me, Image(s) reviewed by me Assessment/Plan Assessment/Plan Impression: -septic shock -diverticular abscess -AFib with RVR -morbid obesity -obstructive uropathy -CKD stage 4 -acute kidney injury, vasomotor nephropathy -acute on chronic systolic and diastolic heart failure -bed-bound status -complicated cystitis with ESBL in the urine. Plan: Events: Received HD yesterday. Remains on Norepinephrine. -Start midodrine -Change iv abx to Invanz -Advance to clear liquid diet -continue anticoagulation with Eliquis -Wean Levophed -repeat labs and Chest x ray in a.m. Critical care time spent with patient discussing and formulating plan of care: 40 minutes. This does not include time spent performing procedures. This medical document was created using an electronic medical record system with [employer] dictation system. Although this document has been carefully reviewed, there may still be some phonetic and typographical errors. These areas are purely typographical due to imperfections of the software programs, and do not reflect any compromise in the patient's medical care. Plan discussed with: Patient, Other (RN) My Orders Orders - GONZALO ASKEW GIFT OFFICER Procedure Category Date Status Time Full Liq Diet DIET 04/04/25 Transmitted Lunch Ertap 0.5gm Daily PHA 04/04/25 Transmitted (Renal Dose 10:00 Midodrine Tablet PHA 04/04/25 Verified (Proamatine Tablet) 12:00 Date of Service: Apr 04, 2025 Billing Provider: GONZALO ASKEW NP Common Visit Codes: [id number] CARE 30-74 MIN GONZALO ASKEW NP Apr 04, 2025 09:49
[2025-04-04] MEDS: IRON SUCROSE COMPLEX 110 ML IV SCH (12:01)
[2025-04-04] MEDS: MIDODRINE HCL 10 MG TAB PO SCH (12:08)
[2025-04-04] MEDS: ERTAPENEM SOD INJ 0.5 GM in SODIUM CHL 0.9% 50 ML IV SCH (13:44)
--- NOTE | 2025-04-04 15:58 | DVHPN2 ---
Progress Note - Dictate Date Seen: Apr 04, 2025 Has the PT tested + for MRSA If YES, has PT been informed?: No Medical Necessity Reason Pt with a Central, PICC or Fol: Yes The following are medically ne: Tijerina Catheter Reason for tijerina catheter: Strict I&O Subjective Patient underwent dialysis yesterday vital signs Vital Sign Date Time Temp Pulse Resp B/P (MAP) Pulse Ox O2 Delivery O2 Flow Rate FiO2 04/04/25 12:00 95 04/04/25 12:00 19 97 Nasal Cannula* 3 32 04/04/25 11:00 103/55 (71) 04/04/25 04:30 97.8 97.8 Total Intake and Output 04/03/25 04/03/25 04/04/25 15:00 23:00 07:00 Intake Total 140.7 ml 1189.380 ml 1027.03 ml Output Total 1000 ml 550 ml Balance 140.7 ml 189.380 ml 477.03 ml medications Current Medications Medications Dose Ordered Sig/Sravan Route Start Time Stop Time Status Last Admin Dose Admin Acetaminophen/ Hydrocodone Bitart 1 tab Q4HP PRN PO 03/20/25 12:15 03/30/25 00:45 1 TAB Ondansetron HCl 4 mg Q4HP PRN IV 03/20/25 12:15 03/26/25 08:18 4 MG Docusate Sodium 100 mg BIDPRN PRN PO 03/20/25 12:15 Acetaminophen 650 mg Q6HP PRN PO 03/20/25 12:15 03/28/25 10:59 650 MG Nitroglycerin 0.4 mg Q5MINP PRN SL 03/20/25 12:15 03/25/25 09:26 0.4 MG Morphine Sulfate 2 mg Q30M PRN IV 03/20/25 12:15 03/25/25 09:43 2 MG Allopurinol 100 mg DAILY PO 03/21/25 10:00 04/04/25 10:15 100 MG Apixaban 2.5 mg BID PO 03/20/25 22:00 04/04/25 10:14 2.5 MG Cilostazol 100 mg BID PO 03/20/25 22:00 04/04/25 10:15 100 MG Patient Own Medication 1 tab DAILY PO 03/21/25 10:00 UNV Patient Own Medication 1 tab DAILY PO 03/21/25 10:00 UNV Gabapentin 300 mg DAILY PO 03/21/25 10:00 04/04/25 10:15 300 MG Levothyroxine Sodium 112 mcg DAILY PO 03/21/25 10:00 04/04/25 10:14 112 MCG Levothyroxine Sodium 25 mcg DAILY PO 03/21/25 10:00 04/04/25 10:14 25 MCG Diphenhydramine HCl 50 mg [id number] PRN PO 03/21/25 16:45 03/21/25 22:57 50 MG Albuterol 2.5 mg Q6HR NEB 03/21/25 18:00 04/04/25 11:45 2.5 MG Ipratropium [place] 0.5 mg Q6HWA NEB 03/21/25 18:00 04/04/25 11:45 0.5 MG Patient Own Medication 1 tab BID PO 03/21/25 22:00 04/04/25 10:16 1 TAB Throat Lozenges 1 liv Q2HP PRN MT 03/23/25 04:00 03/23/25 14:52 1 LIV Pantoprazole Sodium 40 mg DAILY IV 03/26/25 10:00 04/04/25 10:14 40 MG Magnesium Oxide 400 mg DAILY PO 03/27/25 10:00 04/04/25 10:15 400 MG Ertapenem 0.5 gm DAILY IM 03/27/25 11:15 Cancel Diagnostic Test (Pha) 1 strip Q6HR 03/27/25 18:00 04/04/25 12:09 1 STRIP Insulin Human Regular FOLLOW SLIDING SCALE Q6HR SC 03/27/25 18:00 04/03/25 06:18 2 UNITS Dextrose 50 ml UD IV 03/27/25 12:30 Norepinephrine Bitartrate 250 ml @ 0.938 mls/ hr Q24H IV 03/28/25 09:15 04/04/25 08:15 11.25 MLS/HR Amiodarone HCl 200 mg Q12HR PO 03/29/25 10:00 04/04/25 10:14 200 MG Nystatin 1 applic DAILY TOP 04/01/25 10:00 04/04/25 10:30 1 APPLIC Multivit/Ca Carb/ B Cmplx/FA/Prenat 1 tab DAILY PO 04/03/25 10:00 04/04/25 10:14 1 TAB Ferrous Sulfate 325 mg BIDWM PO 04/03/25 18:00 04/04/25 08:21 325 MG Bumetanide 2 mg BID IV 04/03/25 22:00 04/04/25 10:14 2 MG Iron Sucrose 110 ml @ 110 mls/hr DAILY@1200 IV 04/04/25 12:00 04/05/25 12:59 04/04/25 12:01 110 MLS/HR Ertapenem 0.5 gm/ Sodium Chloride 50 ml @ 100 mls/hr DAILY IV 04/04/25 10:00 04/04/25 13:44 100 MLS/HR Midodrine 10 mg TID@0600,1200,1800 PO 04/04/25 12:00 04/04/25 12:08 10 MG objective HEENT: No evidence of JVD, no oral ulcers. Pulmonary: Crackles on auscultation bilaterally Cardiovascular S1-S2, no S3 or S4 Abdomen: Bowel sounds positive, soft no rebound tenderness Skin: No rash Neurological: Alert, oriented, no focal weakness Extremities: 1+ lower extremity edema pitting Right upper chest CVC in place. laboratory and microbiology Laboratory Tests 04/04/25 03:00 Test 04/04/25 03:00 Range/Units Serum Glucose 93 74-106 mg/dL Assessment/Plan Assessment: Nonoliguric Acute kidney injury superimposed on CKD 4 Urinary output seems to be picking up Sepsis with a urine culture growing E coli and Klebsiella both of which are ESBL . Wound culture with E coli ESBL Septic shock Point of care ultrasound 04/03/2025 shows dilated IVC, not collapsible which suggest patient not being volume depleted. Status post drainage of left pelvic abscess Left hydronephrosis which has a resolved Acute on chronic diastolic heart failure Anemia status post transfusion of PRBC Pulmonary hypertension Atrial fibrillation Bed-bound patient Chronic alcoholism in remission, last alcoholic beverage three months ago. Assessment/Plan Hold off on dialysis today, monitor urinary output. Continue Bumex b.i.d. Chest x-ray in a.m. Labs in a.m. Continue pressor support Would want to continue with the medical management for now. Continue TPN Pressors p.r.n. Overall long-term prognosis is guarded Dietary Evaluation Review Comments: Renal Specific 60g CCHO-60 Cardiac Diet d/t SCOT over CKD and low GFR Expected Outcomes/Goals: less uremic symptoms, better weight management Plan discussed with: Patient CC Plasma Assessment Blood Product Administration S: [id number] AFTAB KENDALL MD Apr 04, 2025 15:58
--- NOTE | 2025-04-04 16:36 | DVH ---
CHEST RADIOGRAPH Indication: CHF Technique: Single frontal view of the chest was obtained Comparison: XY CHEST PORTABLE on DOS: 03/30/25, XY CHEST PORTABLE on DOS: 03/24/25, XY CHEST PORTABLE on DOS: 03/23/25 FINDINGS: Lines and Tubes: Hemodialysis catheter in place in the right internal jugular vein with the tip in th e distal superior vena cava or cavoatrial junction. Right internal jugular catheter in place Lungs: Increased bibasilar airspace disease with possible small left pleural effusion. Pleura: No effusion. No pneumothorax. Cardiomediastinal contours: Cardiomegaly Bones: No acute osseous abnormality. IMPRESSION: 1. Right internal jugular hemodialysis catheter in place with tip at the cavoatrial junction. 2. Right internal jugular catheter in place unchanged 3. Findings suggest worsening airspace disease in probable congestive failure or volume overload.
[2025-04-04] MEDS: POTASSIUM EFFERVESENT TAB 25 MEQ GT ONE (16:47)
[2025-04-04] MEDS ORDERED: EPOETIN ALFA-EPBX 10,000 UNIT/1ML VIAL SC ONE (21:00)
--- NOTE | 2025-04-04 21:14 | DVHPN2 ---
Progress Note - Dictate Date Seen: Apr 04, 2025 Has the PT tested + for MRSA If YES, has PT been informed?: No Medical Necessity Reason Pt with a Central, PICC or Fol: Yes The following are medically ne: Tijerina Catheter Reason for tijerina catheter: Strict I&O Subjective Patient seen and examined at bedside. Remains on supplemental oxygen Overnight events reviewed. vital signs Vital Sign Date Time Temp Pulse Resp B/P (MAP) Pulse Ox O2 Delivery O2 Flow Rate FiO2 04/04/25 18:30 102 21 113/45 (67) 93 04/04/25 18:16 Nasal Cannula 3.0 04/04/25 18:16 32 04/04/25 16:30 97.4 97.4 Total Intake and Output 04/03/25 04/03/25 04/04/25 15:00 23:00 07:00 Intake Total 140.7 ml 1189.380 ml 1027.03 ml Output Total 1000 ml 550 ml Balance 140.7 ml 189.380 ml 477.03 ml medications Current Medications Medications Dose Ordered Sig/Sravan Route Start Time Stop Time Status Last Admin Dose Admin Acetaminophen/ Hydrocodone Bitart 1 tab Q4HP PRN PO 03/20/25 12:15 03/30/25 00:45 1 TAB Ondansetron HCl 4 mg Q4HP PRN IV 03/20/25 12:15 03/26/25 08:18 4 MG Docusate Sodium 100 mg BIDPRN PRN PO 03/20/25 12:15 Acetaminophen 650 mg Q6HP PRN PO 03/20/25 12:15 03/28/25 10:59 650 MG Nitroglycerin 0.4 mg Q5MINP PRN SL 03/20/25 12:15 03/25/25 09:26 0.4 MG Morphine Sulfate 2 mg Q30M PRN IV 03/20/25 12:15 03/25/25 09:43 2 MG Allopurinol 100 mg DAILY PO 03/21/25 10:00 04/04/25 10:15 100 MG Apixaban 2.5 mg BID PO 03/20/25 22:00 04/04/25 10:14 2.5 MG Cilostazol 100 mg BID PO 03/20/25 22:00 04/04/25 10:15 100 MG Patient Own Medication 1 tab DAILY PO 03/21/25 10:00 UNV Patient Own Medication 1 tab DAILY PO 03/21/25 10:00 UNV Gabapentin 300 mg DAILY PO 03/21/25 10:00 04/04/25 10:15 300 MG Levothyroxine Sodium 112 mcg DAILY PO 03/21/25 10:00 04/04/25 10:14 112 MCG Levothyroxine Sodium 25 mcg DAILY PO 03/21/25 10:00 04/04/25 10:14 25 MCG Diphenhydramine HCl 50 mg [id number] PRN PO 03/21/25 16:45 03/21/25 22:57 50 MG Albuterol 2.5 mg Q6HR NEB 03/21/25 18:00 04/04/25 18:16 2.5 MG Ipratropium [place] 0.5 mg Q6HWA NEB 03/21/25 18:00 04/04/25 18:16 0.5 MG Patient Own Medication 1 tab BID PO 03/21/25 22:00 04/04/25 10:16 1 TAB Throat Lozenges 1 liv Q2HP PRN MT 03/23/25 04:00 03/23/25 14:52 1 LIV Pantoprazole Sodium 40 mg DAILY IV 03/26/25 10:00 04/04/25 10:14 40 MG Magnesium Oxide 400 mg DAILY PO 03/27/25 10:00 04/04/25 10:15 400 MG Ertapenem 0.5 gm DAILY IM 03/27/25 11:15 Cancel Diagnostic Test (Pha) 1 strip Q6HR 03/27/25 18:00 04/04/25 18:13 1 STRIP Insulin Human Regular FOLLOW SLIDING SCALE Q6HR SC 03/27/25 18:00 04/03/25 06:18 2 UNITS Dextrose 50 ml UD IV 03/27/25 12:30 Norepinephrine Bitartrate 250 ml @ 0.938 mls/ hr Q24H IV 03/28/25 09:15 04/04/25 08:15 11.25 MLS/HR Amiodarone HCl 200 mg Q12HR PO 03/29/25 10:00 04/04/25 10:14 200 MG Nystatin 1 applic DAILY TOP 04/01/25 10:00 04/04/25 10:30 1 APPLIC Multivit/Ca Carb/ B Cmplx/FA/Prenat 1 tab DAILY PO 04/03/25 10:00 04/04/25 10:14 1 TAB Ferrous Sulfate 325 mg BIDWM PO 04/03/25 18:00 04/04/25 18:13 325 MG Bumetanide 2 mg BID IV 04/03/25 22:00 04/03/25 21:53 2 MG Iron Sucrose 110 ml @ 110 mls/hr DAILY@1200 IV 04/04/25 12:00 04/05/25 12:59 04/04/25 12:01 110 MLS/HR Ertapenem 0.5 gm/ Sodium Chloride 50 ml @ 100 mls/hr DAILY IV 04/04/25 10:00 04/04/25 13:44 100 MLS/HR Midodrine 10 mg TID@0600,1200,1800 PO 04/04/25 12:00 04/04/25 18:13 10 MG objective Gen.: Patient lying in bed in no apparent distress. On supplemental oxygen. Head: Normocephalic, atraumatic. Eyes: EOMI/PERRLA. Ears: Normal hearing. Normal anatomy. Neck/trachea: Trachea midline, supple. Nose: Normal external anatomy. Mouth: Moist mucous membranes. Chest: Decreased air entry bilaterally. No wheezing or rhonchi. Cardiovascular: Positive S1, positive S2. Regular rate and rhythm. Abdomen: Positive bowel sounds in all 4 quadrants. Soft, non-tender, non- distended. : Deferred. Rectal: Deferred. Skin: Warm, dry. Intact. Extremities: 2+ radial pulses bilaterally. No lower extremity edema. Neuro: Awake, alert, oriented x3. No gross motor or sensory deficits. Cranial nerves II through XII intact. Gait not assessed. laboratory and microbiology Laboratory Tests 04/04/25 03:00 Test 04/04/25 03:00 Range/Units Serum Glucose 93 74-106 mg/dL Assessment/Plan Impression: Acute kidney injury Acute hypoxic respiratory failure Dependence on supplemental oxygen Chronic obstructive pulmonary disease Pneumonia Left hydronephrosis Septic shock Events: Remains on supplemental oxygen 3 LPM via NC Taper O2 as tolerated On pressors for hemodynamic support Levophed 4.5 mcg/min Titrate to keep mean arterial pressure greater than 65 mmHg. Taper down as tolerated Head of bed elevation Aspiration precautions Eliquis BID + amiodarone for AFib Clear liquids Tunneled catheter in place Hemodialysis per Nephrology Blood filter Continue antibiotics WBC within normal limits ID recommendations appreciated. Continue bronchodilators Incentive spirometry Accu-Cheks, ISS. Protonix for GI ppx IV fluids Midodrine started for blood pressure support Diurese with Bumex IV Monitor renal function - BUN 93-->110; Cr of 4.27-->4.54 Poor urine output Follow up Nephrology recommendations Monitor electrolytes. Supplement as necessary. NPO TPN for nutritional support Pigtail drain placed for aspiration of left hemipelvic abscess (03/26) Prior cultures from drainage grew ESBL, Enterobacter cloacae. ID recommendations appreciated Monitor pelvic drain output. Monitor hemoglobin - low at 7.1 g/dL Transfuse if less than 7.0 g/dL. Iron supplementation CT abdomen-pelvis revealed small to moderate bilateral pleural effusions and associated compressive atelectasis/consolidation. LLQ pelvic drain in satisfactory position w/ significant interval decrease in size of abscess, currently 2.2 cm (previously 5.7 cm). Labs and imaging studies reviewed Plan Supplemental oxygen Titrate to keep O2 sats above 92%. Pressors as necessary for hemodynamic support Titrate to keep mean arterial pressure greater than 65 mmHg. Bronchodilators for COPD - stable Continue antibiotics F/u cultures Amiodarone/Eliquis for AFib Monitor WBC Monitor hemoglobin S/p tunneled cath Hemodialysis per Nephrology Nephrology recs appreciated. Diurese with Bumex Monitor renal function Monitor electrolytes. Supplement as necessary. Monitor ins and outs. Maintain euvolemia. TPN for nutritional support F/u with urology/urology and gen sx GI prophylaxis. DVT prophylaxis. Prognosis: Poor given patient's multiple co-morbidities. Condition: Critical Rest of plan per hospitalist and other consultants. A total of 35 minutes of critical care time was spent reviewing the patient record, examining the patient, making a diagnostic and therapeutic plan, discussing this plan with the medical personnel, following up on diagnostic studies and following the patient for clinical stability excluding any and all procedures. At least 50% of this time was spent in direct, [id number] contact. Thank you, Dr. Celis, for allowing me to participate in this patient's care. Further recommendations will depend on the patient's clinical course. Please do not hesitate to contact me if you have any questions or concerns. This medical document was created using an electronic medical record system with Dragon computerized dictation system. Although these documentations are being carefully reviewed, there may still be some phonetic and typographical changes. The errors are purely typographical, due to imperfection on the software program, and do not reflect any compromise in the patient's medical care. Dietary Evaluation Review Comments: Renal Specific 60g CCHO-60 Cardiac Diet d/t SCOT over CKD and low GFR Expected Outcomes/Goals: less uremic symptoms, better weight management Plan discussed with: Other (BOSTON Lang) Critical Care Time(min): 35 CC Plasma Assessment Blood Product Administration S: [id number] PALOMO ROBLES MD Apr 04, 2025 21:13
[2025-04-05] VITALS (104 sets, daily range): BP systolic 79–140; BP diastolic 31–67; PULSE 86–111; RESP 11–25; TEMP 97.4–98.3; O2SAT 86–100
[2025-04-05 04:04] LABS: Hematocrit 21.5 % (36.0-46.0); Mean Corpuscular Hemoglobin 28.6 pg (28.0-32.0); Mean Corpuscular Volume 87.2 fL (80.0-100.0); Nucleated Red Blood Cells % 0.3 %
[2025-04-05 04:06] LABS: Hemoglobin 7.0 g/dL (12.2-16.2)
[2025-04-05 04:10] LABS: Anion Gap 11 (5-15); Carbon Dioxide 28 mmol/L (20-31); Chloride 101 mmol/L (98-107); Potassium 3.5 mmol/L (3.5-5.1); Sodium 140 mmol/L (136-145)
[2025-04-05 04:11] LABS: Calcium 10.0 mg/dL (8.7-10.4)
[2025-04-05 04:16] LABS: BUN/Creatinine Ratio 23.7 (10.0-20.0); Glucose 93 mg/dL (74-106)
[2025-04-05 04:17] LABS: Magnesium 2.1 mg/dL (1.6-2.6)
[2025-04-05 04:30] LABS: Blood Urea Nitrogen 69 mg/dL (9-23)
--- NOTE | 2025-04-05 06:37 | DVHPN2 ---
Progress Note - Dictate Date Seen: Apr 05, 2025 Has the PT tested + for MRSA If YES, has PT been informed?: No Medical Necessity Reason Pt with a Central, PICC or Fol: Yes The following are medically ne: Tijerina Catheter Reason for tijerina catheter: Strict I&O vital signs Vital Sign Date Time Temp Pulse Resp B/P (MAP) Pulse Ox O2 Delivery O2 Flow Rate FiO2 04/05/25 06:00 20 93 Nasal Cannula* 3 32 04/05/25 06:00 103 04/05/25 05:58 110/58 04/05/25 00:00 97.5 97.5 Total Intake and Output 04/04/25 04/04/25 04/05/25 15:00 23:00 07:00 Intake Total 787.3 ml 1272.00 ml 21.488 ml Output Total 830 ml Balance 787.3 ml 442.00 ml 21.488 ml medications Current Medications Medications Dose Ordered Sig/Sravan Route Start Time Stop Time Status Last Admin Dose Admin Acetaminophen/ Hydrocodone Bitart 1 tab Q4HP PRN PO 03/20/25 12:15 03/30/25 00:45 1 TAB Ondansetron HCl 4 mg Q4HP PRN IV 03/20/25 12:15 03/26/25 08:18 4 MG Docusate Sodium 100 mg BIDPRN PRN PO 03/20/25 12:15 Acetaminophen 650 mg Q6HP PRN PO 03/20/25 12:15 03/28/25 10:59 650 MG Nitroglycerin 0.4 mg Q5MINP PRN SL 03/20/25 12:15 03/25/25 09:26 0.4 MG Morphine Sulfate 2 mg Q30M PRN IV 03/20/25 12:15 03/25/25 09:43 2 MG Allopurinol 100 mg DAILY PO 03/21/25 10:00 04/04/25 10:15 100 MG Apixaban 2.5 mg BID PO 03/20/25 22:00 04/04/25 22:10 2.5 MG Cilostazol 100 mg BID PO 03/20/25 22:00 04/04/25 22:41 100 MG Patient Own Medication 1 tab DAILY PO 03/21/25 10:00 UNV Patient Own Medication 1 tab DAILY PO 03/21/25 10:00 UNV Gabapentin 300 mg DAILY PO 03/21/25 10:00 04/04/25 10:15 300 MG Levothyroxine Sodium 112 mcg DAILY PO 03/21/25 10:00 04/04/25 10:14 112 MCG Levothyroxine Sodium 25 mcg DAILY PO 03/21/25 10:00 04/04/25 10:14 25 MCG Diphenhydramine HCl 50 mg [id number] PRN PO 03/21/25 16:45 03/21/25 22:57 50 MG Albuterol 2.5 mg Q6HR NEB 03/21/25 18:00 04/04/25 23:52 2.5 MG Ipratropium [place] 0.5 mg Q6HWA NEB 03/21/25 18:00 04/04/25 18:16 0.5 MG Patient Own Medication 1 tab BID PO 03/21/25 22:00 04/04/25 22:11 1 TAB Throat Lozenges 1 liv Q2HP PRN MT 03/23/25 04:00 03/23/25 14:52 1 LIV Pantoprazole Sodium 40 mg DAILY IV 03/26/25 10:00 04/04/25 10:14 40 MG Magnesium Oxide 400 mg DAILY PO 03/27/25 10:00 04/04/25 10:15 400 MG Ertapenem 0.5 gm DAILY IM 03/27/25 11:15 Cancel Diagnostic Test (Pha) 1 strip Q6HR 03/27/25 18:00 04/05/25 05:58 1 STRIP Insulin Human Regular FOLLOW SLIDING SCALE Q6HR SC 03/27/25 18:00 04/03/25 06:18 2 UNITS Dextrose 50 ml UD IV 03/27/25 12:30 Norepinephrine Bitartrate 250 ml @ 0.938 mls/ hr Q24H IV 03/28/25 09:15 04/05/25 05:58 4.688 MLS/HR Amiodarone HCl 200 mg Q12HR PO 03/29/25 10:00 04/04/25 22:10 200 MG Nystatin 1 applic DAILY TOP 04/01/25 10:00 04/04/25 10:30 1 APPLIC Multivit/Ca Carb/ B Cmplx/FA/Prenat 1 tab DAILY PO 04/03/25 10:00 04/04/25 10:14 1 TAB Ferrous Sulfate 325 mg BIDWM PO 04/03/25 18:00 04/04/25 18:13 325 MG Bumetanide 2 mg BID IV 04/03/25 22:00 04/04/25 22:09 2 MG Iron Sucrose 110 ml @ 110 mls/hr DAILY@1200 IV 04/04/25 12:00 04/05/25 12:59 04/04/25 12:01 110 MLS/HR Ertapenem 0.5 gm/ Sodium Chloride 50 ml @ 100 mls/hr DAILY IV 04/04/25 10:00 04/04/25 13:44 100 MLS/HR Midodrine 10 mg TID@0600,1200,1800 PO 04/04/25 12:00 04/05/25 05:58 10 MG laboratory and microbiology Laboratory Tests 04/05/25 03:00 Test 04/05/25 03:00 Range/Units Serum Glucose 93 74-106 mg/dL Assessment/Plan Patient is a 74-year-old female who was admitted on March 20, 2025 for abdominal pain/nausea/vomiting. She is admitted to ICU for septic shock. On March 24, 2025, cardiology was involved for cardiac aspects of care. Patient is known to our practice from before and previous admissions. She is known to have significant alcohol abuse (drinks whiskey every day) and also history of pulmonary hypertension/type 2 pulmonary hypertension, diastolic heart failure. Does have poor functional capacity and is bed-bound. Is significantly morbidly obese. Does have baseline history of atrial fibrillation and is on Eliquis as outpatient. Is found to have septic shock and possible pelvic abscess. Is seen by surgery/Urology/pulmonary/GI. Denies chest pains. Denies palpitations. Is noncompliant with medication and followups. While being managed in ICU was found to have atrial fibrillation with RVR. 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 She has had multiple surgeries in the bilateral feet. She also has history of COPD/asthma with chronic respiratory failure (on home oxygen). Morbidly obese. Not in acute distress. No JVD. Mucosa is dry. Mucosa is pink. No JVD. No carotid bruit. Not using accessory muscles of breathing. Scattered rhonchi in the lungs is heard. Cardiac: Irregular, no thrill. Abdomen is obese and soft. There is no gross hepatomegaly, but it is presence can not be ruled out (body habitus, morbidly obese). There is 3+ edema in bilateral lower extremities which extends to abdominal wall. Past medical history includes morbid obesity, atrial fibrillation (on Eliquis as outpatient), COPD/asthma with chronic respiratory failure on home oxygen, morbid obesity, hypertension, hyperlipidemia, chronic lymphedema, Diastolic heart failure with type 2 pulmonary hypertension, rheumatoid arthritis, osteoarthritis, peripheral vascular disease, CKD (stage IV), anemia, alcohol abuse, neuropathy, gout, old history of right and left foot fracture and their management, status post right knee replacement, status post , bed-bound at baseline and functional quadriplegia. Patient drinks whiskey daily. Goes to Nephrology regularly. Reportedly, there has been some concern about going to have fistula creation on preparation for dialysis? Echocardiogram of January 03 2024 (performed in [facility]) revealed ejection fraction of 60%, mild biatrial enlargement, mild MR/TR and right ventricular systolic pressure of 31 mm Hg. Echocardiogram of (performed in [facility]) revealed: EF of 50 to 55%, Dilated right ventricle with normal systolic function. Severe biatrial enlargement. Mild AI, mild to moderate MR, moderate TR and RVSP of 51 mmHg. Ascending Aorta was 3.7 cm. Echocardiogram of November 09, 2024 revealed ejection fraction of 72%, mild right ventricular enlargement, moderate biatrial enlargement, mild to moderate tricuspid regurgitation, mild mitral regurgitation, right ventricular systolic pressure 54 mm Hg Echocardiogram of February 23, 2025 revealed ejection fraction of around 50%, mild concentric left ventricular hypertrophy, right ventricular enlargement with preserved systolic function. Biatrial enlargement, mild aortic insufficiency, [id number] mitral regurgitation and tricuspid regurgitation. IVC was significantly dilated. Right ventricular systolic pressure of of 55 mm Hg Hemoglobin: 6.7 - 8.6 - 8.1 - 7.6 - 7.9 - 7.7 - 7.8 - 7.8 - 7.6 - 7.5 - 7.1 - 7.0 - 8.5 - 8.2 - 7.6 - 7.7 - 7.5 - 7.1 - 7.0 Platelet: 57 - 73 - 91 - 108 - 159 - 189 - 257 - 322 - 312 - 291 - 240 - 243 - 239 - 227 - 229 - 232 - 234 -249 Creatinine: 3.29 - 2.63 - 2.77 - 2.59 - 2.13 - 1.98 - 1.98 - 2.47- 2.98 - 3.36 - 3.56 - 3.83 - 4.12 - 4.27 - 4.67 - 4.54 - 2.92 - 2.91 Potassium: 3.9 - 3.4 - 3.8 - 3.3 - 3.4 - 3.9 - 3.5 - 3.5 - 3.3 - 3.4 - 3.7 - 3.8 - 4.0 - 4.3 - 4.0 - 3.6 - 3.3 - 3.5 Sodium: 124 - 129 - 129 - 131 - 135 - 138 - 138 - 139 - 138 - 137 - 137 - 136 - 135 - 135 - 136 - 137 - 140 - 140 AST/ALT: 143/111 - 347/315 - 48/358 - 11/120 - - < - < - < - <05/23 - 05/17 Troponin (high sensitive): 32 - 31 - 34 TSH: 0.17 - 0.15 T3: 0.40 (low) T4: 5.7 Free T4: 1.27 Free T3: 1.55 (low) Urine and Aspirate culture: ESBL E-coli Chest x-ray revealed: IMPRESSION: Cardiomegaly. Repeat chest x-ray revealed: IMPRESSION: 1. Cardiomegaly with increased interstitial prominence suggestive of CHF exacerbation. 2. Pulmonary arterial hypertension. Repeat chest x-ray revealed: IMPRESSION: Cardiomegaly with mild pulmonary congestion. . Repeat chest x-ray revealed: IMPRESSION: Cardiomegaly with pulmonary congestion and edema. Superimposed pneumonia cannot be excluded. Repeat chest x-ray revealed: IMPRESSION: Worsening right lower lung airspace disease. Suggestion of small bilateral pleural effusions. Repeat chest xray revealed: IMPRESSION: No significant interval change Repeat chest xry revealed: IMPRESSION: 1. Right internal jugular hemodialysis catheter in place with tip at the cavoatrial junction. 2. Right internal jugular catheter in place unchanged 3. Findings suggest worsening airspace disease in probable congestive failure or volume overload. Abdominal ultrasound revealed: IMPRESSION: Small left hydronephrosis Renal scan revealed: IMPRESSION: Bilateral renal obstruction is present which is not response to Lasix administration suggesting that the kidney may be minimally functional. Abdomen and pelvic CT scan revealed: IMPRESSION: Moderate left hydroureteronephrosis. Suggestion of possible small abscess formation in the left hemipelvis associated with the sigmoid colon measuring 5.7 cm. This may represent site of ureteral obstruction. Clinical correlation advised. Examination is limited secondary to lack of intravenous and oral contrast administration. Abdomen and pelvis CT revealed: IMPRESSION: Sigmoid colonic diverticulitis with an adjacent 6 cm fluid collection with gas, could be an abscess. Probable fistula of the sigmoid to the fluid collection, and possibly with the urinary bladder, which is decompressed with a Tijerina. Possible trace left hydronephrosis with perinephric fat stranding. Repeat CT of abdomen and pelvis revealed: IMPRESSION: Small to moderate bilateral pleural effusions and associated compressive atelectasis / consolidation. Left lower quadrant pelvic drain in satisfactory position with significant interval decrease in size of abscess currently measuring 2.2 cm, previously 5.[address] guided abscess drainage: IMPRESSION: CT guided placement of 8 armenian pigtail drain into a left hemipelvic abscess with 30 mL purulent fluid aspirated. PLAN: Routine tube care. Renal ultrasound revealed: IMPRESSION: Unremarkable renal ultrasound without hydronephrosis seen. EKG revealed atrial fibrillation with RVR Tele reveals atrial fibrillation with RVR Echocardiogram revealed: Left ventricle: Mild concentric left ventricular hypertrophy was seen. LVEF was around 50%. Right ventricle was mildly dilated with reduced systolic function. Both atria were dilated. Aortic valve was not well visualized. There was no aortic insufficiency/stenosis. There was mild mitral regurgitation. There was [id number] tricuspid regurgitation. Pulmonary valve was not well visualized. Right ventricular systolic pressure was assessed at 50 mm Hg. IVC was dilated. There was no pericardial effusion. Patient is a 74-year-old female with known history of diastolic heart failure with type 2 pulmonary hypertension who presented with abdominal pain. He is admitted to ICU with septic shock. Did have thrombocytopenia which slowly improved. Was significantly anemic and was transfused PRBC. There has been question about pelvic abscess and the patient is on antibiotics. Patient is being followed by surgery/Urology/pulmonary/GI. It is of note that the patient does have history of significant alcohol abuse (drinks good amount of whiskey daily) which could contribute to to some component of the clinical picture. Does have baseline history of pulmonary hypertension. Usually is on some amount of diuretic (Bumex) as outpatient. Clinically, the patient does have dry mucosa and maybe behind fluids at the time of evaluation. Does have baseline poor functional capacity. Does have history of recent sepsis. s/p CT guided abscess drainage. Seen by Nephrology. Diuretics are on hold. TFT are in favor of subclinical thyroid problem. Still with poor kidney function. Nephrology suggested hemodialysis, patient is hesitant. Significant anemia, status post PRBC transfusion Thrombocytopenia, resolved Septic shock SCOT on CKD Hydronephrosis Pelvic abscess Transaminitis Acute on chronic diastolic heart failure Pulmonary Hypertension, type 2 Alcohol abuse Morbid obesity Poor functional capacity Bed-bound at baseline Atrial fibrillation with RVR Hyperlipidemia Osteoarthritis Rheumatoid arthritis Peripheral vascular disease Abdominal abscess? s/p CT guided abscess drainage Cardiac suggestion for management: Manage in ICU Follow-up electrolytes and kidney function tests and correct abnormalities Full anticoagulation (on Eliquis presently), long-term Septic shock, still on pressure support and IV antibiotics Started on HD On oral amiodarone Pressor support at this point to keep mean arterial pressure above 65 Evaluation and management of sepsis/infection as per primary team Evaluation and management of alcohol abuse/prevention of withdrawal as per primary team Evaluation and management of pelvic abscess/hydronephrosis as per primary team/surgery/Urology Further evaluation and management depends on the above and clinical course A total of 75 minutes was spent reviewing the patient record, examining the patient, making a diagnostic and therapeutic plan, discussing this plan with medical personnel, following up on diagnostic studies and following the patient for clinical stability excluding any and all procedures. At least 50% of this time was spent in direct, [id number] contact. Thank you for allowing me to participate in this patient's care. Further recommendations will depend on patient's clinical course. Please do not hesitate to contact me if you have any questions or concerns. This medical document was created using electronic medical record system with [employer] dictation system. Although this document has been carefully reviewed, there may still be some phonetic and typographical errors. These areas are purely typographical due to the imperfection of the software programs, and do not reflect any compromise in the patient's medical care. Dietary Evaluation Review Comments: Renal Specific 60g CCHO-60 Cardiac Diet d/t SCOT over CKD and low GFR Expected Outcomes/Goals: less uremic symptoms, better weight management Plan discussed with: Patient, Other (nurse) CC Plasma Assessment Blood Product Administration S: [id number] AUSTIN ROMERO MD Apr 05, 2025 06:37
--- NOTE | 2025-04-05 09:30 | DVHPN2 ---
Subjective Denies any symptoms at this time Reviewed: Care Plan, H&P, Labs, Medications, Previous Orders, Radiology Changes from previous H/P or p: No Changes General: Per HPI Eyes: No Pain, No Vision change, No Conjunctivae inflammation, No Eyelid inflammation, No Other, No Redness ENT: No Ear pain, No Ear discharge, No Nose pain, No Nose discharge, No Nose congestion, No Mouth pain, No Mouth swelling, No Throat pain, No Throat swelling, No Other Cardiovascular: No Chest Pain, No Palpitations, No Orthopnea, No Paroxysmal Noc. Dyspnea, No Edema, No Lt Headedness, No Other Respiratory: No Cough, No Dry, No Shortness of breath, No SOB with excertion, No Wheezing, No Hemoptysis, No Pleuritic Pain, No Sputum, No Other Gastrointestinal: Nausea, Vomiting, Abdominal Pain Genitourinary: No Dysuria, No Frequency, No Incontinence, No Hematuria, No Retention, No Other Musculoskeletal: No other, No neck pain, No shoulder pain, No arm pain, No back pain, No hand pain, No leg pain, No foot pain Skin: No Rash, No Lesions, No Jaundice, No Bruising, No Other Objective Vitals Vital Signs Date Time Temp Pulse Resp B/P (MAP) Pulse Ox O2 Delivery O2 Flow Rate FiO2 04/05/25 09:20 112/55 04/05/25 09:00 92 21 94 04/05/25 08:00 97.5 97.5 04/05/25 08:00 Nasal Cannula* 3 32 Intake/Output Intake and Output 04/05/25 07:00 Intake Total 2581.348 ml Output Total 1340 ml Balance 1241.348 ml Intake Oral 1980 ml IV Total 601.348 ml Output Urine Total 1300 ml Other 40 ml General Appearance: Alert, Oriented X3, Cooperative, Other HEENT: Atraumatic, PERRLA Cardiovascular: Normal S1, Normal S2, Other Abdomen: Normal bowel sounds, Other Extremities: No edema, Normal pulses Neuro: Sensation intact, Cranial nerves 3-12 NL Skin: Dry, Intact Psych/Mental Status: Mental status NL, Mood NL Medications Current Medications Medications Dose Ordered Sig/Sravan Route Start Time Stop Time Status Last Admin Dose Admin Acetaminophen/ Hydrocodone Bitart 1 tab Q4HP PRN PO 03/20/25 12:15 03/30/25 00:45 1 TAB Ondansetron HCl 4 mg Q4HP PRN IV 03/20/25 12:15 03/26/25 08:18 4 MG Docusate Sodium 100 mg BIDPRN PRN PO 03/20/25 12:15 Acetaminophen 650 mg Q6HP PRN PO 03/20/25 12:15 03/28/25 10:59 650 MG Nitroglycerin 0.4 mg Q5MINP PRN SL 03/20/25 12:15 03/25/25 09:26 0.4 MG Morphine Sulfate 2 mg Q30M PRN IV 03/20/25 12:15 03/25/25 09:43 2 MG Allopurinol 100 mg DAILY PO 03/21/25 10:00 04/05/25 09:20 100 MG Apixaban 2.5 mg BID PO 03/20/25 22:00 04/05/25 09:21 2.5 MG Cilostazol 100 mg BID PO 03/20/25 22:00 04/04/25 22:41 100 MG Patient Own Medication 1 tab DAILY PO 03/21/25 10:00 UNV Patient Own Medication 1 tab DAILY PO 03/21/25 10:00 UNV Gabapentin 300 mg DAILY PO 03/21/25 10:00 04/05/25 09:21 300 MG Levothyroxine Sodium 112 mcg DAILY PO 03/21/25 10:00 04/05/25 09:22 112 MCG Levothyroxine Sodium 25 mcg DAILY PO 03/21/25 10:00 04/05/25 09:21 25 MCG Diphenhydramine HCl 50 mg [id number] PRN PO 03/21/25 16:45 03/21/25 22:57 50 MG Albuterol 2.5 mg Q6HR NEB 03/21/25 18:00 04/05/25 07:02 2.5 MG Ipratropium [place] 0.5 mg Q6HWA NEB 03/21/25 18:00 04/05/25 07:02 0.5 MG Patient Own Medication 1 tab BID PO 03/21/25 22:00 04/05/25 09:25 1 TAB Throat Lozenges 1 liv Q2HP PRN MT 03/23/25 04:00 03/23/25 14:52 1 LIV Pantoprazole Sodium 40 mg DAILY IV 03/26/25 10:00 04/05/25 09:20 40 MG Magnesium Oxide 400 mg DAILY PO 03/27/25 10:00 04/05/25 09:21 400 MG Ertapenem 0.5 gm DAILY IM 03/27/25 11:15 Cancel Diagnostic Test (Pha) 1 strip Q6HR 03/27/25 18:00 04/05/25 05:58 1 STRIP Insulin Human Regular FOLLOW SLIDING SCALE Q6HR SC 03/27/25 18:00 04/03/25 06:18 2 UNITS Dextrose 50 ml UD IV 03/27/25 12:30 Norepinephrine Bitartrate 250 ml @ 0.938 mls/ hr Q24H IV 03/28/25 09:15 04/05/25 05:58 4.688 MLS/HR Amiodarone HCl 200 mg Q12HR PO 03/29/25 10:00 04/05/25 09:21 200 MG Nystatin 1 applic DAILY TOP 04/01/25 10:00 04/05/25 09:25 1 APPLIC Multivit/Ca Carb/ B Cmplx/FA/Prenat 1 tab DAILY PO 04/03/25 10:00 04/05/25 09:21 1 TAB Ferrous Sulfate 325 mg BIDWM PO 04/03/25 18:00 04/05/25 09:20 325 MG Bumetanide 2 mg BID IV 04/03/25 22:00 04/05/25 09:20 2 MG Iron Sucrose 110 ml @ 110 mls/hr DAILY@1200 IV 04/04/25 12:00 04/05/25 12:59 04/04/25 12:01 110 MLS/HR Ertapenem 0.5 gm/ Sodium Chloride 50 ml @ 100 mls/hr DAILY IV 04/04/25 10:00 04/04/25 13:44 100 MLS/HR Midodrine 10 mg TID@0600,1200,1800 PO 04/04/25 12:00 04/05/25 05:58 10 MG Laboratory Results Laboratory Tests 04/05/25 03:00 Chemistry Test 04/05/25 03:00 Calcium Level 10.0 mg/dL (8.7-10.4) Magnesium Level 2.1 mg/dL (1.6-2.6) Urinalysis Test 03/20/25 09:34 Urine Color Colorless (Yellow) Urine Clarity Turbid (Clear) H Urine pH 5.0 (5.0-9.0) Urine Specific Surveyor 1.015 (1.001-1.035) Urine Protein Negative (Negative) Urine Ketones Negative (Negative) Urine Blood Negative /uL (Negative) Urine Nitrite Negative (Negative) Urine Bilirubin Negative (Negative) Urine Urobilinogen Normal mg/dL (Negative) Urine Leukocyte Esterase 3+ /uL (Negative) Urine RBC 1 /hpf (0 - 4) Urine Microscopic WBC 255 /HPF (0-5) H Urine Squamous Epithelial Cells Few /hpf (<5) Urine Bacteria Few /hpf (None Seen) H Urine Glucose Normal mg/dL (Normal) Microbiology Microbiology Date/Time Source Procedure Growth Status 03/26/25 15:00 Aspirate Gram Stain - Final Complete 03/26/25 15:00 Body Fluid Culture - Final Escherichia coli - ESBL Enterobacter cloacae Proteus mirabilis Complete 03/23/25 04:30 Throat Nose/Throat Culture - Final Complete 03/21/25 18:00 Urine - Catheterized Urine Culture - Final Escherichia coli - ESBL Klebsiella pneumoniae - ESBL Complete 03/20/25 21:52 Nose MRSA Screen - Final Complete Labs and/or images reviewed: Labs reviewed by me, Image(s) reviewed by me Assessment/Plan Assessment/Plan Impression: -septic shock -diverticular abscess -AFib with RVR -morbid obesity -obstructive uropathy -CKD stage 4 -acute kidney injury, vasomotor nephropathy -acute on chronic systolic and diastolic heart failure -bed-bound status -complicated cystitis with ESBL in the urine. Plan: Events: No events over night. Blood pressure slightly improving. Now on norepinephrine at 2 micrograms/minute. Tolerating full liquid diet without any noted abdominal pain or increase in white blood cell count. Reassess diverticular abscess once shock has resolved. -continue midodrine -continue Invanz -full liquid diet -continue anticoagulation with Eliquis -Wean Levophed -repeat labs and Chest x ray in a.m. Critical care time spent with patient discussing and formulating plan of care: 40 minutes. This does not include time spent performing procedures. This medical document was created using an electronic medical record system with [employer] system. Although this document has been carefully reviewed, there may still be some phonetic and typographical errors. These areas are purely typographical due to imperfections of the software programs, and do not reflect any compromise in the patient's medical care. Plan discussed with: Patient, Other (RN) My Orders Orders - GONZALO ASKEW NP Procedure Category Date Status Time Full Liq Diet DIET 04/04/25 Transmitted Lunch Ertapenem Sod Inj PHA 04/04/25 In Process (Invanz) 10:00 Midodrine Tablet PHA 04/04/25 In Process (Proamatine Tablet) 12:00 Date of Service: Apr 05, 2025 Billing Provider: GONZALO ASKEW NP Common Visit Codes: [id number] CARE 30-74 MIN GONZALO ASKEW NP Apr 05, 2025 09:30
--- NOTE | 2025-04-05 17:13 | DVHPN2 ---
Progress Note - Dictate Date Seen: Apr 05, 2025 Has the PT tested + for MRSA If YES, has PT been informed?: No Medical Necessity Reason Pt with a Central, PICC or Fol: Yes The following are medically ne: Tijerina Catheter Reason for tijerina catheter: Strict I&O Subjective Last dialysis 04/03/2025. Patient today complains of more shortness of breath. RN at bedside has been weaning off the Levophed. vital signs Vital Sign Date Time Temp Pulse Resp B/P (MAP) Pulse Ox O2 Delivery O2 Flow Rate FiO2 04/05/25 16:45 101 20 107/53 (71) 95 04/05/25 16:00 Nasal Cannula* 3 32 04/05/25 16:00 97.4 97.4 Total Intake and Output 04/04/25 04/04/25 04/05/25 15:00 23:00 07:00 Intake Total 787.3 ml 1272.00 ml 522.048 ml Output Total 830 ml 510 ml Balance 787.3 ml 442.00 ml 12.048 ml medications Current Medications Medications Dose Ordered Sig/Sravan Route Start Time Stop Time Status Last Admin Dose Admin Acetaminophen/ Hydrocodone Bitart 1 tab Q4HP PRN PO 03/20/25 12:15 03/30/25 00:45 1 TAB Ondansetron HCl 4 mg Q4HP PRN IV 03/20/25 12:15 03/26/25 08:18 4 MG Docusate Sodium 100 mg BIDPRN PRN PO 03/20/25 12:15 Acetaminophen 650 mg Q6HP PRN PO 03/20/25 12:15 03/28/25 10:59 650 MG Nitroglycerin 0.4 mg Q5MINP PRN SL 03/20/25 12:15 03/25/25 09:26 0.4 MG Morphine Sulfate 2 mg Q30M PRN IV 03/20/25 12:15 03/25/25 09:43 2 MG Allopurinol 100 mg DAILY PO 03/21/25 10:00 04/05/25 09:20 100 MG Apixaban 2.5 mg BID PO 03/20/25 22:00 04/05/25 09:21 2.5 MG Cilostazol 100 mg BID PO 03/20/25 22:00 04/05/25 09:39 100 MG Patient Own Medication 1 tab DAILY PO 03/21/25 10:00 UNV Patient Own Medication 1 tab DAILY PO 03/21/25 10:00 UNV Gabapentin 300 mg DAILY PO 03/21/25 10:00 04/05/25 09:21 300 MG Levothyroxine Sodium 112 mcg DAILY PO 03/21/25 10:00 04/05/25 09:22 112 MCG Levothyroxine Sodium 25 mcg DAILY PO 03/21/25 10:00 04/05/25 09:21 25 MCG Diphenhydramine HCl 50 mg [id number] PRN PO 03/21/25 16:45 03/21/25 22:57 50 MG Albuterol 2.5 mg Q6HR NEB 03/21/25 18:00 04/05/25 11:26 2.5 MG Ipratropium [place] 0.5 mg Q6HWA NEB 03/21/25 18:00 04/05/25 11:26 0.5 MG Patient Own Medication 1 tab BID PO 03/21/25 22:00 04/05/25 09:25 1 TAB Throat Lozenges 1 liv Q2HP PRN MT 03/23/25 04:00 03/23/25 14:52 1 LIV Pantoprazole Sodium 40 mg DAILY IV 03/26/25 10:00 04/05/25 09:20 40 MG Magnesium Oxide 400 mg DAILY PO 03/27/25 10:00 04/05/25 09:21 400 MG Ertapenem 0.5 gm DAILY IM 03/27/25 11:15 Cancel Diagnostic Test (Pha) 1 strip Q6HR 03/27/25 18:00 04/05/25 12:00 1 STRIP Insulin Human Regular FOLLOW SLIDING SCALE Q6HR SC 03/27/25 18:00 04/03/25 06:18 2 UNITS Dextrose 50 ml UD IV 03/27/25 12:30 Norepinephrine Bitartrate 250 ml @ 0.938 mls/ hr Q24H IV 03/28/25 09:15 04/05/25 05:58 4.688 MLS/HR Amiodarone HCl 200 mg Q12HR PO 03/29/25 10:00 04/05/25 09:21 200 MG Nystatin 1 applic DAILY TOP 04/01/25 10:00 04/05/25 09:25 1 APPLIC Multivit/Ca Carb/ B Cmplx/FA/Prenat 1 tab DAILY PO 04/03/25 10:00 04/05/25 09:21 1 TAB Ferrous Sulfate 325 mg BIDWM PO 04/03/25 18:00 04/05/25 09:20 325 MG Bumetanide 2 mg BID IV 04/03/25 22:00 04/05/25 09:20 2 MG Ertapenem 0.5 gm/ Sodium Chloride 50 ml @ 100 mls/hr DAILY IV 04/04/25 10:00 04/05/25 09:39 100 MLS/HR Midodrine 10 mg TID@0600,1200,1800 PO 04/04/25 12:00 04/05/25 12:54 10 MG Potassium Chloride 100 ml @ 50 mls/hr Q2H IV 04/05/25 16:45 04/05/25 20:44 UNV objective HEENT: No evidence of JVD, no oral ulcers. Pulmonary: Crackles on auscultation bilaterally Cardiovascular S1-S2, no S3 or S4 Abdomen: Bowel sounds positive, soft no rebound tenderness Skin: No rash Neurological: Alert, oriented, no focal weakness Extremities: 2+ lower extremity edema pitting Right upper chest CVC in place. laboratory and microbiology Laboratory Tests 04/05/25 03:00 Test 04/05/25 03:00 Range/Units Serum Glucose 93 74-106 mg/dL Assessment/Plan Assessment: Nonoliguric Acute kidney injury superimposed on CKD 4 Patient has tenuous renal function along with chronic fluid overload very difficult to manage historically because of the need of high doses of loop diuretics along with thiazide diuretic to manage hypovolemia with ensuing worsening of the renal function. Sepsis with a urine culture growing E coli and Klebsiella both of which are ESBL . Wound culture with E coli ESBL Septic shock Point of care ultrasound 04/03/2025 shows dilated IVC, not collapsible which suggest patient not being volume depleted. Status post drainage of left pelvic abscess Left hydronephrosis which has a resolved Acute on chronic diastolic heart failure Anemia status post transfusion of PRBC Pulmonary hypertension Atrial fibrillation Bed-bound patient Chronic alcoholism in remission, last alcoholic beverage three months ago. Assessment/Plan HD tomorrow. Continue Bumex b.i.d. 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 Continue pressor support Midodrine 3 times a day and during dialysis Would want to continue with the medical management for now. Continue TPN Pressors p.r.n. Overall long-term prognosis is guarded Dietary Evaluation Review Comments: Renal Specific 60g CCHO-60 Cardiac Diet d/t SCOT over CKD and low GFR Expected Outcomes/Goals: less uremic symptoms, better weight management Plan discussed with: Patient CC Plasma Assessment Blood Product Administration S: [id number] AFTAB KENDALL MD Apr 05, 2025 17:13
[2025-04-05] MEDS: POTASSIUM CHL 20MEQ/100ML 100 ML IV SCH (19:17)
--- NOTE | 2025-04-05 23:43 | DVHPN2 ---
Progress Note - Dictate Date Seen: Apr 05, 2025 Has the PT tested + for MRSA If YES, has PT been informed?: No Medical Necessity Reason Pt with a Central, PICC or Fol: Yes The following are medically ne: Tijerina Catheter Reason for tijerina catheter: Strict I&O Subjective Patient seen and examined at bedside. Remains on supplemental oxygen Overnight events reviewed. vital signs Vital Sign Date Time Temp Pulse Resp B/P (MAP) Pulse Ox O2 Delivery O2 Flow Rate FiO2 04/05/25 22:50 78/39 04/05/25 22:45 95 18 93 04/05/25 20:00 98.3 98.3 04/05/25 18:05 Nasal Cannula* 3 32 Total Intake and Output 04/04/25 04/04/25 04/05/25 15:00 23:00 07:00 Intake Total 787.3 ml 1272.00 ml 522.048 ml Output Total 830 ml 510 ml Balance 787.3 ml 442.00 ml 12.048 ml medications Current Medications Medications Dose Ordered Sig/Sravan Route Start Time Stop Time Status Last Admin Dose Admin Acetaminophen/ Hydrocodone Bitart 1 tab Q4HP PRN PO 03/20/25 12:15 03/30/25 00:45 1 TAB Ondansetron HCl 4 mg Q4HP PRN IV 03/20/25 12:15 03/26/25 08:18 4 MG Docusate Sodium 100 mg BIDPRN PRN PO 03/20/25 12:15 Acetaminophen 650 mg Q6HP PRN PO 03/20/25 12:15 03/28/25 10:59 650 MG Nitroglycerin 0.4 mg Q5MINP PRN SL 03/20/25 12:15 03/25/25 09:26 0.4 MG Morphine Sulfate 2 mg Q30M PRN IV 03/20/25 12:15 03/25/25 09:43 2 MG Allopurinol 100 mg DAILY PO 03/21/25 10:00 04/05/25 09:20 100 MG Apixaban 2.5 mg BID PO 03/20/25 22:00 04/05/25 21:19 2.5 MG Cilostazol 100 mg BID PO 03/20/25 22:00 04/05/25 21:19 100 MG Patient Own Medication 1 tab DAILY PO 03/21/25 10:00 UNV Patient Own Medication 1 tab DAILY PO 03/21/25 10:00 UNV Gabapentin 300 mg DAILY PO 03/21/25 10:00 04/05/25 09:21 300 MG Levothyroxine Sodium 112 mcg DAILY PO 03/21/25 10:00 04/05/25 09:22 112 MCG Levothyroxine Sodium 25 mcg DAILY PO 03/21/25 10:00 04/05/25 09:21 25 MCG Diphenhydramine HCl 50 mg [id number] PRN PO 03/21/25 16:45 03/21/25 22:57 50 MG Albuterol 2.5 mg Q6HR NEB 03/21/25 18:00 04/05/25 18:05 2.5 MG Ipratropium [place] 0.5 mg Q6HWA NEB 03/21/25 18:00 04/05/25 18:05 0.5 MG Patient Own Medication 1 tab BID PO 03/21/25 22:00 04/05/25 21:19 1 TAB Throat Lozenges 1 liv Q2HP PRN MT 03/23/25 04:00 03/23/25 14:52 1 LIV Pantoprazole Sodium 40 mg DAILY IV 03/26/25 10:00 04/05/25 09:20 40 MG Magnesium Oxide 400 mg DAILY PO 03/27/25 10:00 04/05/25 09:21 400 MG Ertapenem 0.5 gm DAILY IM 03/27/25 11:15 Cancel Diagnostic Test (Pha) 1 strip Q6HR 03/27/25 18:00 04/05/25 18:00 1 STRIP Insulin Human Regular FOLLOW SLIDING SCALE Q6HR SC 03/27/25 18:00 04/03/25 06:18 2 UNITS Dextrose 50 ml UD IV 03/27/25 12:30 Norepinephrine Bitartrate 250 ml @ 0.938 mls/ hr Q24H IV 03/28/25 09:15 04/05/25 05:58 4.688 MLS/HR Amiodarone HCl 200 mg Q12HR PO 03/29/25 10:00 04/05/25 21:19 200 MG Nystatin 1 applic DAILY TOP 04/01/25 10:00 04/05/25 09:25 1 APPLIC Multivit/Ca Carb/ B Cmplx/FA/Prenat 1 tab DAILY PO 04/03/25 10:00 04/05/25 09:21 1 TAB Ferrous Sulfate 325 mg BIDWM PO 04/03/25 18:00 04/05/25 18:28 325 MG Bumetanide 2 mg BID IV 04/03/25 22:00 04/05/25 21:31 2 MG Ertapenem 0.5 gm/ Sodium Chloride 50 ml @ 100 mls/hr DAILY IV 04/04/25 10:00 04/05/25 09:39 100 MLS/HR Midodrine 10 mg TID@0600,1200,1800 PO 04/04/25 12:00 04/05/25 18:28 10 MG objective Gen.: Patient lying in bed in no apparent distress. On supplemental oxygen. Head: Normocephalic, atraumatic. Eyes: EOMI/PERRLA. Ears: Normal hearing. Normal anatomy. Neck/trachea: Trachea midline, supple. Nose: Normal external anatomy. Mouth: Moist mucous membranes. Chest: Decreased air entry bilaterally. No wheezing or rhonchi. Cardiovascular: Positive S1, positive S2. Regular rate and rhythm. Abdomen: Positive bowel sounds in all 4 quadrants. Soft, non-tender, non- distended. : Deferred. Rectal: Deferred. Skin: Warm, dry. Intact. Extremities: 2+ radial pulses bilaterally. No lower extremity edema. Neuro: Awake, alert, oriented x3. No gross motor or sensory deficits. Cranial nerves II through XII intact. Gait not assessed. laboratory and microbiology Laboratory Tests 04/05/25 03:00 Test 04/05/25 03:00 Range/Units Serum Glucose 93 74-106 mg/dL Assessment/Plan Impression: Acute kidney injury Acute hypoxic respiratory failure Dependence on supplemental oxygen Chronic obstructive pulmonary disease Pneumonia Left hydronephrosis Septic shock Events: Remains on supplemental oxygen 2 LPM via NC Taper O2 as tolerated CXR on 04/04/25 revealed worsening airspace disease and probable congestive heart failure or volume overload. On pressors for hemodynamic support Levophed 1 mcg/min Titrate to keep mean arterial pressure greater than 65 mmHg. Improved pressor requirements; continue to taper as tolerated Midodrine for blood pressure support Head of bed elevation Aspiration precautions Eliquis BID + amiodarone for AFib Tunneled catheter in place Hemodialysis per Nephrology Blood filter Continue antibiotics ID recommendations appreciated. Continue bronchodilators Incentive spirometry Accu-Cheks, ISS. Protonix for GI ppx Clear liquids TPN for nutritional support Wound care Diurese with Bumex IV Monitor renal function - BUN 73 and Cr 2.98, trending down Poor urine output Follow up Nephrology recommendations Monitor electrolytes. Supplement as necessary. Magnesium supplementation Monitor hemoglobin - low at 7.0 g/dL Transfuse if less than 7.0 g/dL. Iron supplementation Pigtail drain placed for aspiration of left hemipelvic abscess (03/26) Prior cultures from drainage grew ESBL, Enterobacter cloacae. ID recommendations appreciated Monitor pelvic drain output. CT abdomen-pelvis revealed small to moderate bilateral pleural effusions and associated compressive atelectasis/consolidation. LLQ pelvic drain in satisfactory position w/ significant interval decrease in size of abscess, currently 2.2 cm (previously 5.7 cm). Labs and imaging studies reviewed Plan Supplemental oxygen Titrate to keep O2 sats above 92%. Pressors as necessary for hemodynamic support Titrate to keep mean arterial pressure greater than 65 mmHg. Bronchodilators for COPD - stable Continue antibiotics F/u cultures Amiodarone/Eliquis for AFib Monitor WBC Monitor hemoglobin S/p tunneled cath Hemodialysis per Nephrology Nephrology recs appreciated. Diurese with Bumex Monitor renal function Monitor electrolytes. Supplement as necessary. Monitor ins and outs. Maintain euvolemia. TPN for nutritional support F/u with urology/urology and gen sx GI prophylaxis. DVT prophylaxis. Prognosis: Poor given patient's multiple co-morbidities. Condition: Critical Rest of plan per hospitalist and other consultants. A total of 35 minutes of critical care time was spent reviewing the patient record, examining the patient, making a diagnostic and therapeutic plan, discussing this plan with the medical personnel, following up on diagnostic studies and following the patient for clinical stability excluding any and all procedures. At least 50% of this time was spent in direct, [id number] contact. Thank you, Dr. Celis, for allowing me to participate in this patient's care. Further recommendations will depend on the patient's clinical course. Please do not hesitate to contact me if you have any questions or concerns. This medical document was created using an electronic medical record system with [employer] dictation system. Although these documentations are being carefully reviewed, there may still be some phonetic and typographical changes. The errors are purely typographical, due to imperfection on the software program, and do not reflect any compromise in the patient's medical care. Dietary Evaluation Review Comments: Renal Specific 60g CCHO-60 Cardiac Diet d/t SCOT over CKD and low GFR Expected Outcomes/Goals: less uremic symptoms, better weight management Plan discussed with: Patient, Other ([employer]) CC Plasma Assessment Blood Product Administration S: [id number] PALOMO ROBLES MD Apr 05, 2025 23:43
[2025-04-06] VITALS (122 sets, daily range): BP systolic 78–123; BP diastolic 33–72; PULSE 85–116; RESP 11–37; TEMP 97.4–98; O2SAT 75–100
[2025-04-06 03:56] LABS: Mean Corpuscular Hemoglobin 28.6 pg (28.0-32.0)
[2025-04-06 03:58] LABS: Hematocrit 21.2 % (36.0-46.0); Mean Corpuscular Volume 88.3 fL (80.0-100.0); Nucleated Red Blood Cells % 0.1 %
[2025-04-06 04:00] LABS: Anion Gap 10 (5-15); Carbon Dioxide 28 mmol/L (20-31); Chloride 101 mmol/L (98-107); Potassium 3.9 mmol/L (3.5-5.1); Sodium 139 mmol/L (136-145)
[2025-04-06 04:01] LABS: Calcium 9.3 mg/dL (8.7-10.4)
[2025-04-06 04:05] LABS: Glucose 94 mg/dL (74-106)
[2025-04-06 04:06] LABS: BUN/Creatinine Ratio 24.5 (10.0-20.0); Magnesium 2.1 mg/dL (1.6-2.6)
[2025-04-06 04:08] LABS: Hemoglobin 6.8 g/dL (12.2-16.2)
[2025-04-06 04:11] LABS: Blood Urea Nitrogen 73 mg/dL (9-23); Iron 49.0 ug/dL (50-170); Total Iron Binding Capacity 154.0 ug/dL (250-425)
[2025-04-06] MEDS: SODIUM CHL 0.9% 1000 ML BAG XX ONE (07:00)
--- NOTE | 2025-04-06 07:56 | DVHPN2 ---
Progress Note - Dictate Date Seen: Apr 06, 2025 Has the PT tested + for MRSA If YES, has PT been informed?: No Medical Necessity Reason Pt with a Central, PICC or Fol: Yes The following are medically ne: Tijerina Catheter Reason for tijerina catheter: Strict I&O vital signs Vital Sign Date Time Temp Pulse Resp B/P (MAP) Pulse Ox O2 Delivery O2 Flow Rate FiO2 04/06/25 07:45 96 16 97/43 (61) 94 04/06/25 06:39 Oxymizer 5 N/A 04/06/25 04:15 97.5 97.5 Total Intake and Output 04/05/25 04/05/25 04/06/25 15:00 23:00 07:00 Intake Total 237.182 ml 403.814 ml 495.928 ml Output Total 760 ml 260 ml Balance 237.182 ml -356.186 ml 235.928 ml medications Current Medications Medications Dose Ordered Sig/Sravan Route Start Time Stop Time Status Last Admin Dose Admin Acetaminophen/ Hydrocodone Bitart 1 tab Q4HP PRN PO 03/20/25 12:15 03/30/25 00:45 1 TAB Ondansetron HCl 4 mg Q4HP PRN IV 03/20/25 12:15 03/26/25 08:18 4 MG Docusate Sodium 100 mg BIDPRN PRN PO 03/20/25 12:15 Acetaminophen 650 mg Q6HP PRN PO 03/20/25 12:15 03/28/25 10:59 650 MG Nitroglycerin 0.4 mg Q5MINP PRN SL 03/20/25 12:15 03/25/25 09:26 0.4 MG Morphine Sulfate 2 mg Q30M PRN IV 03/20/25 12:15 03/25/25 09:43 2 MG Allopurinol 100 mg DAILY PO 03/21/25 10:00 04/05/25 09:20 100 MG Apixaban 2.5 mg BID PO 03/20/25 22:00 04/05/25 21:19 2.5 MG Cilostazol 100 mg BID PO 03/20/25 22:00 04/05/25 21:19 100 MG Patient Own Medication 1 tab DAILY PO 03/21/25 10:00 UNV Patient Own Medication 1 tab DAILY PO 03/21/25 10:00 UNV Gabapentin 300 mg DAILY PO 03/21/25 10:00 04/05/25 09:21 300 MG Levothyroxine Sodium 112 mcg DAILY PO 03/21/25 10:00 04/05/25 09:22 112 MCG Levothyroxine Sodium 25 mcg DAILY PO 03/21/25 10:00 04/05/25 09:21 25 MCG Diphenhydramine HCl 50 mg [id number] PRN PO 03/21/25 16:45 03/21/25 22:57 50 MG Albuterol 2.5 mg Q6HR NEB 03/21/25 18:00 04/06/25 06:39 2.5 MG Ipratropium [place] 0.5 mg Q6HWA NEB 03/21/25 18:00 04/06/25 06:39 0.5 MG Patient Own Medication 1 tab BID PO 03/21/25 22:00 04/05/25 21:19 1 TAB Throat Lozenges 1 liv Q2HP PRN MT 03/23/25 04:00 03/23/25 14:52 1 LIV Pantoprazole Sodium 40 mg DAILY IV 03/26/25 10:00 04/05/25 09:20 40 MG Magnesium Oxide 400 mg DAILY PO 03/27/25 10:00 04/05/25 09:21 400 MG Ertapenem 0.5 gm DAILY IM 03/27/25 11:15 Cancel Diagnostic Test (Pha) 1 strip Q6HR 03/27/25 18:00 04/06/25 05:38 1 STRIP Insulin Human Regular FOLLOW SLIDING SCALE Q6HR SC 03/27/25 18:00 04/03/25 06:18 2 UNITS Dextrose 50 ml UD IV 03/27/25 12:30 Norepinephrine Bitartrate 250 ml @ 0.938 mls/ hr Q24H IV 03/28/25 09:15 04/05/25 05:58 4.688 MLS/HR Amiodarone HCl 200 mg Q12HR PO 03/29/25 10:00 04/05/25 21:19 200 MG Nystatin 1 applic DAILY TOP 04/01/25 10:00 04/05/25 09:25 1 APPLIC Multivit/Ca Carb/ B Cmplx/FA/Prenat 1 tab DAILY PO 04/03/25 10:00 04/05/25 09:21 1 TAB Ferrous Sulfate 325 mg BIDWM PO 04/03/25 18:00 04/05/25 18:28 325 MG Bumetanide 2 mg BID IV 04/03/25 22:00 04/05/25 21:31 2 MG Ertapenem 0.5 gm/ Sodium Chloride 50 ml @ 100 mls/hr DAILY IV 04/04/25 10:00 04/05/25 09:39 100 MLS/HR Midodrine 10 mg TID@0600,1200,1800 PO 04/04/25 12:00 04/06/25 05:37 10 MG laboratory and microbiology Laboratory Tests 04/06/25 03:11 Test 04/06/25 03:11 Range/Units Serum Glucose 94 74-106 mg/dL Assessment/Plan Patient is a 74-year-old female who was admitted on March 20, 2025 for abdominal pain/nausea/vomiting. She is admitted to ICU for septic shock. On March 24, 2025, cardiology was involved for cardiac aspects of care. Patient is known to our practice from before and previous admissions. She is known to have significant alcohol abuse (drinks whiskey every day) and also history of pulmonary hypertension/type 2 pulmonary hypertension, diastolic heart failure. Does have poor functional capacity and is bed-bound. Is significantly morbidly obese. Does have baseline history of atrial fibrillation and is on Eliquis as outpatient. Is found to have septic shock and possible pelvic abscess. Is seen by surgery/Urology/pulmonary/GI. Denies chest pains. Denies palpitations. Is noncompliant with medication and followups. While being managed in ICU was found to have atrial fibrillation with RVR. 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 She has had multiple surgeries in the bilateral feet. She also has history of COPD/asthma with chronic respiratory failure (on home oxygen). Morbidly obese. Not in acute distress. No JVD. Mucosa is dry. Mucosa is pink. No JVD. No carotid bruit. Not using accessory muscles of breathing. Scattered rhonchi in the lungs is heard. Cardiac: Irregular, no thrill. Abdomen is obese and soft. There is no gross hepatomegaly, but it is presence can not be ruled out (body habitus, morbidly obese). There is 3+ edema in bilateral lower extremities which extends to abdominal wall. Past medical history includes morbid obesity, atrial fibrillation (on Eliquis as outpatient), COPD/asthma with chronic respiratory failure on home oxygen, morbid obesity, hypertension, hyperlipidemia, chronic lymphedema, Diastolic heart failure with type 2 pulmonary hypertension, rheumatoid arthritis, osteoarthritis, peripheral vascular disease, CKD (stage IV), anemia, alcohol abuse, neuropathy, gout, old history of right and left foot fracture and their management, status post right knee replacement, status post , bed-bound at baseline and functional quadriplegia. Patient drinks whiskey daily. Goes to Nephrology regularly. Reportedly, there has been some concern about going to have fistula creation on preparation for dialysis? Echocardiogram of January 03 2024 (performed in [facility]) revealed ejection fraction of 60%, mild biatrial enlargement, mild MR/TR and right ventricular systolic pressure of 31 mm Hg. Echocardiogram of (performed in [facility]) revealed: EF of 50 to 55%, Dilated right ventricle with normal systolic function. Severe biatrial enlargement. Mild AI, mild to moderate MR, moderate TR and RVSP of 51 mmHg. Ascending Aorta was 3.7 cm. Echocardiogram of November 09, 2024 revealed ejection fraction of 72%, mild right ventricular enlargement, moderate biatrial enlargement, mild to moderate tricuspid regurgitation, mild mitral regurgitation, right ventricular systolic pressure 54 mm Hg Echocardiogram of February 23, 2025 revealed ejection fraction of around 50%, mild concentric left ventricular hypertrophy, right ventricular enlargement with preserved systolic function. Biatrial enlargement, mild aortic insufficiency, [id number] mitral regurgitation and tricuspid regurgitation. IVC was significantly dilated. Right ventricular systolic pressure of of 55 mm Hg Hemoglobin: 6.7 - 8.6 - 8.1 - 7.6 - 7.9 - 7.7 - 7.8 - 7.8 - 7.6 - 7.5 - 7.1 - 7.0 - 8.5 - 8.2 - 7.6 - 7.7 - 7.5 - 7.1 - 7.0 - 6.8 Platelet: 57 - 73 - 91 - 108 - 159 - 189 - 257 - 322 - 312 - 291 - 240 - 243 - 239 - 227 - 229 - 232 - 234 - 249 - 253 Creatinine: 3.29 - 2.63 - 2.77 - 2.59 - 2.13 - 1.98 - 1.98 - 2.47- 2.98 - 3.36 - 3.56 - 3.83 - 4.12 - 4.27 - 4.67 - 4.54 - 2.92 - 2.91 Potassium: 3.9 - 3.4 - 3.8 - 3.3 - 3.4 - 3.9 - 3.5 - 3.5 - 3.3 - 3.4 - 3.7 - 3.8 - 4.0 - 4.3 - 4.0 - 3.6 - 3.3 - 3.5 - 3.9 Sodium: 124 - 129 - 129 - 131 - 135 - 138 - 138 - 139 - 138 - 137 - 137 - 136 - 135 - 135 - 136 - 137 - 140 - 140 - 139 AST/ALT: 143/111 - 347/315 - 48/358 - 11/120 - - < - < - < - <05/23 - 05/17 Troponin (high sensitive): 32 - 31 - 34 TSH: 0.17 - 0.15 T3: 0.40 (low) T4: 5.7 Free T4: 1.27 Free T3: 1.55 (low) Urine and Aspirate culture: ESBL E-coli Chest x-ray revealed: IMPRESSION: Cardiomegaly. Repeat chest x-ray revealed: IMPRESSION: 1. Cardiomegaly with increased interstitial prominence suggestive of CHF exacerbation. 2. Pulmonary arterial hypertension. Repeat chest x-ray revealed: IMPRESSION: Cardiomegaly with mild pulmonary congestion. . Repeat chest x-ray revealed: IMPRESSION: Cardiomegaly with pulmonary congestion and edema. Superimposed pneumonia cannot be excluded. Repeat chest x-ray revealed: IMPRESSION: Worsening right lower lung airspace disease. Suggestion of small bilateral pleural effusions. Repeat chest xray revealed: IMPRESSION: No significant interval change Repeat chest xry revealed: IMPRESSION: 1. Right internal jugular hemodialysis catheter in place with tip at the cavoatrial junction. 2. Right internal jugular catheter in place unchanged 3. Findings suggest worsening airspace disease in probable congestive failure or volume overload. Abdominal ultrasound revealed: IMPRESSION: Small left hydronephrosis Renal scan revealed: IMPRESSION: Bilateral renal obstruction is present which is not response to Lasix administration suggesting that the kidney may be minimally functional. Abdomen and pelvic CT scan revealed: IMPRESSION: Moderate left hydroureteronephrosis. Suggestion of possible small abscess formation in the left hemipelvis associated with the sigmoid colon measuring 5.7 cm. This may represent site of ureteral obstruction. Clinical correlation advised. Examination is limited secondary to lack of intravenous and oral contrast administration. Abdomen and pelvis CT revealed: IMPRESSION: Sigmoid colonic diverticulitis with an adjacent 6 cm fluid collection with gas, could be an abscess. Probable fistula of the sigmoid to the fluid collection, and possibly with the urinary bladder, which is decompressed with a Tijerina. Possible trace left hydronephrosis with perinephric fat stranding. Repeat CT of abdomen and pelvis revealed: IMPRESSION: Small to moderate bilateral pleural effusions and associated compressive atelectasis / consolidation. Left lower quadrant pelvic drain in satisfactory position with significant interval decrease in size of abscess currently measuring 2.2 cm, previously 5.[address] guided abscess drainage: IMPRESSION: CT guided placement of 8 telugu pigtail drain into a left hemipelvic abscess with 30 mL purulent fluid aspirated. PLAN: Routine tube care. Renal ultrasound revealed: IMPRESSION: Unremarkable renal ultrasound without hydronephrosis seen. EKG revealed atrial fibrillation with RVR Tele reveals atrial fibrillation with RVR Echocardiogram revealed: Left ventricle: Mild concentric left ventricular hypertrophy was seen. LVEF was around 50%. Right ventricle was mildly dilated with reduced systolic function. Both atria were dilated. Aortic valve was not well visualized. There was no aortic insufficiency/stenosis. There was mild mitral regurgitation. There was [id number] tricuspid regurgitation. Pulmonary valve was not well visualized. Right ventricular systolic pressure was assessed at 50 mm Hg. IVC was dilated. There was no pericardial effusion. Patient is a 74-year-old female with known history of diastolic heart failure with type 2 pulmonary hypertension who presented with abdominal pain. He is admitted to ICU with septic shock. Did have thrombocytopenia which slowly improved. Was significantly anemic and was transfused PRBC. There has been question about pelvic abscess and the patient is on antibiotics. Patient is being followed by surgery/Urology/pulmonary/GI. It is of note that the patient does have history of significant alcohol abuse (drinks good amount of whiskey daily) which could contribute to to some component of the clinical picture. Does have baseline history of pulmonary hypertension. Usually is on some amount of diuretic (Bumex) as outpatient. Clinically, the patient does have dry mucosa and maybe behind fluids at the time of evaluation. Does have baseline poor functional capacity. Does have history of recent sepsis. s/p CT guided abscess drainage. Seen by Nephrology. Diuretics are on hold. TFT are in favor of subclinical thyroid problem. Still with poor kidney function. Nephrology suggested hemodialysis, patient is hesitant. Significant anemia, status post PRBC transfusion Thrombocytopenia, resolved Septic shock SCOT on CKD Hydronephrosis Pelvic abscess Transaminitis Acute on chronic diastolic heart failure Pulmonary Hypertension, type 2 Alcohol abuse Morbid obesity Poor functional capacity Bed-bound at baseline Atrial fibrillation with RVR Hyperlipidemia Osteoarthritis Rheumatoid arthritis Peripheral vascular disease Abdominal abscess? s/p CT guided abscess drainage Cardiac suggestion for management: Manage in ICU Follow-up electrolytes and kidney function tests and correct abnormalities Full anticoagulation (on Eliquis presently), long-term Septic shock, still on pressure support and IV antibiotics On Midodrine Started on HD To get PRBC transfusion for anemi On oral amiodarone Pressor support at this point to keep mean arterial pressure above 65 Evaluation and management of sepsis/infection as per primary team Evaluation and management of alcohol abuse/prevention of withdrawal as per primary team Evaluation and management of pelvic abscess/hydronephrosis as per primary team/surgery/Urology Further evaluation and management depends on the above and clinical course A total of 75 minutes was spent reviewing the patient record, examining the patient, making a diagnostic and therapeutic plan, discussing this plan with medical personnel, following up on diagnostic studies and following the patient for clinical stability excluding any and all procedures. At least 50% of this time was spent in direct, [id number] contact. Thank you for allowing me to participate in this patient's care. Further recommendations will depend on patient's clinical course. Please do not hesitate to contact me if you have any questions or concerns. This medical document was created using electronic medical record system with [employer] dictation system. Although this document has been carefully reviewed, there may still be some phonetic and typographical errors. These areas are purely typographical due to the imperfection of the software programs, and do not reflect any compromise in the patient's medical care. Dietary Evaluation Review Comments: Renal Specific 60g CCHO-60 Cardiac Diet d/t SCOT over CKD and low GFR Expected Outcomes/Goals: less uremic symptoms, better weight management Plan discussed with: Patient, Other (nurse) CC Plasma Assessment Blood Product Administration S: [id number] AUSTIN ROMERO MD Apr 06, 2025 07:56
--- NOTE | 2025-04-06 09:18 | DVHPN2 ---
Subjective Denies any symptoms at this time Reviewed: Care Plan, H&P, Labs, Medications, Previous Orders, Radiology Changes from previous H/P or p: No Changes General: Per HPI Eyes: No Pain, No Vision change, No Conjunctivae inflammation, No Eyelid inflammation, No Other, No Redness ENT: No Ear pain, No Ear discharge, No Nose pain, No Nose discharge, No Nose congestion, No Mouth pain, No Mouth swelling, No Throat pain, No Throat swelling, No Other Cardiovascular: No Chest Pain, No Palpitations, No Orthopnea, No Paroxysmal Noc. Dyspnea, No Edema, No Lt Headedness, No Other Respiratory: No Cough, No Dry, No Shortness of breath, No SOB with excertion, No Wheezing, No Hemoptysis, No Pleuritic Pain, No Sputum, No Other Gastrointestinal: Nausea, Vomiting, Abdominal Pain Genitourinary: No Dysuria, No Frequency, No Incontinence, No Hematuria, No Retention, No Other Musculoskeletal: No other, No neck pain, No shoulder pain, No arm pain, No back pain, No hand pain, No leg pain, No foot pain Skin: No Rash, No Lesions, No Jaundice, No Bruising, No Other Objective Vitals Vital Signs Date Time Temp Pulse Resp B/P (MAP) Pulse Ox O2 Delivery O2 Flow Rate FiO2 04/06/25 07:45 96 16 97/43 (61) 94 04/06/25 06:39 Oxymizer 5 N/A 04/06/25 04:15 97.5 97.5 Intake/Output Intake and Output 04/06/25 07:00 Intake Total 1136.924 ml Output Total 1020 ml Balance 116.924 ml Intake Oral 880 ml IV Total 256.924 ml Output Urine Total 1000 ml Other 20 ml General Appearance: Alert, Oriented X3, Cooperative, Other HEENT: Atraumatic, PERRLA Cardiovascular: Normal S1, Normal S2, Other Abdomen: Normal bowel sounds, Other Extremities: No edema, Normal pulses Neuro: Sensation intact, Cranial nerves 3-12 NL Skin: Dry, Intact Psych/Mental Status: Mental status NL, Mood NL Medications Current Medications Medications Dose Ordered Sig/Sravan Route Start Time Stop Time Status Last Admin Dose Admin Acetaminophen/ Hydrocodone Bitart 1 tab Q4HP PRN PO 03/20/25 12:15 03/30/25 00:45 1 TAB Ondansetron HCl 4 mg Q4HP PRN IV 03/20/25 12:15 03/26/25 08:18 4 MG Docusate Sodium 100 mg BIDPRN PRN PO 03/20/25 12:15 Acetaminophen 650 mg Q6HP PRN PO 03/20/25 12:15 03/28/25 10:59 650 MG Nitroglycerin 0.4 mg Q5MINP PRN SL 03/20/25 12:15 03/25/25 09:26 0.4 MG Morphine Sulfate 2 mg Q30M PRN IV 03/20/25 12:15 03/25/25 09:43 2 MG Allopurinol 100 mg DAILY PO 03/21/25 10:00 04/05/25 09:20 100 MG Apixaban 2.5 mg BID PO 03/20/25 22:00 04/05/25 21:19 2.5 MG Cilostazol 100 mg BID PO 03/20/25 22:00 04/05/25 21:19 100 MG Patient Own Medication 1 tab DAILY PO 03/21/25 10:00 UNV Patient Own Medication 1 tab DAILY PO 03/21/25 10:00 UNV Gabapentin 300 mg DAILY PO 03/21/25 10:00 04/05/25 09:21 300 MG Levothyroxine Sodium 112 mcg DAILY PO 03/21/25 10:00 04/05/25 09:22 112 MCG Levothyroxine Sodium 25 mcg DAILY PO 03/21/25 10:00 04/05/25 09:21 25 MCG Diphenhydramine HCl 50 mg [id number] PRN PO 03/21/25 16:45 03/21/25 22:57 50 MG Albuterol 2.5 mg Q6HR NEB 03/21/25 18:00 04/06/25 06:39 2.5 MG Ipratropium [place] 0.5 mg Q6HWA NEB 03/21/25 18:00 04/06/25 06:39 0.5 MG Patient Own Medication 1 tab BID PO 03/21/25 22:00 04/05/25 21:19 1 TAB Throat Lozenges 1 liv Q2HP PRN MT 03/23/25 04:00 03/23/25 14:52 1 LIV Pantoprazole Sodium 40 mg DAILY IV 03/26/25 10:00 04/05/25 09:20 40 MG Magnesium Oxide 400 mg DAILY PO 03/27/25 10:00 04/05/25 09:21 400 MG Ertapenem 0.5 gm DAILY IM 03/27/25 11:15 Cancel Diagnostic Test (Pha) 1 strip Q6HR 03/27/25 18:00 04/06/25 05:38 1 STRIP Insulin Human Regular FOLLOW SLIDING SCALE Q6HR SC 03/27/25 18:00 04/03/25 06:18 2 UNITS Dextrose 50 ml UD IV 03/27/25 12:30 Norepinephrine Bitartrate 250 ml @ 0.938 mls/ hr Q24H IV 03/28/25 09:15 04/05/25 05:58 4.688 MLS/HR Amiodarone HCl 200 mg Q12HR PO 03/29/25 10:00 04/05/25 21:19 200 MG Nystatin 1 applic DAILY TOP 04/01/25 10:00 04/05/25 09:25 1 APPLIC Multivit/Ca Carb/ B Cmplx/FA/Prenat 1 tab DAILY PO 04/03/25 10:00 04/05/25 09:21 1 TAB Ferrous Sulfate 325 mg BIDWM PO 04/03/25 18:00 04/05/25 18:28 325 MG Bumetanide 2 mg BID IV 04/03/25 22:00 04/05/25 21:31 2 MG Ertapenem 0.5 gm/ Sodium Chloride 50 ml @ 100 mls/hr DAILY IV 04/04/25 10:00 04/05/25 09:39 100 MLS/HR Midodrine 10 mg TID@0600,1200,1800 PO 04/04/25 12:00 04/06/25 05:37 10 MG Laboratory Results Laboratory Tests 04/06/25 03:11 Chemistry Test 04/06/25 03:11 Calcium Level 9.3 mg/dL (8.7-10.4) Magnesium Level 2.1 mg/dL (1.6-2.6) Urinalysis Test 03/20/25 09:34 Urine Color Colorless (Yellow) Urine Clarity Turbid (Clear) H Urine pH 5.0 (5.0-9.0) Urine Specific [place] 1.015 (1.001-1.035) Urine Protein Negative (Negative) Urine Ketones Negative (Negative) Urine Blood Negative /uL (Negative) Urine Nitrite Negative (Negative) Urine Bilirubin Negative (Negative) Urine Urobilinogen Normal mg/dL (Negative) Urine Leukocyte Esterase 3+ /uL (Negative) Urine RBC 1 /hpf (0 - 4) Urine Microscopic WBC 255 /HPF (0-5) H Urine Squamous Epithelial Cells Few /hpf (<5) Urine Bacteria Few /hpf (None Seen) H Urine Glucose Normal mg/dL (Normal) Microbiology Microbiology Date/Time Source Procedure Growth Status 03/26/25 15:00 Aspirate Gram Stain - Final Complete 03/26/25 15:00 Body Fluid Culture - Final Escherichia coli - ESBL Enterobacter cloacae Proteus mirabilis Complete 03/23/25 04:30 Throat Nose/Throat Culture - Final Complete 03/21/25 18:00 Urine - Catheterized Urine Culture - Final Escherichia coli - ESBL Klebsiella pneumoniae - ESBL Complete 03/20/25 21:52 Nose MRSA Screen - Final Complete Labs and/or images reviewed: Labs reviewed by me, Image(s) reviewed by me Assessment/Plan Assessment/Plan Impression: -septic shock -diverticular abscess -AFib with RVR -morbid obesity -obstructive uropathy -CKD stage 4 -acute kidney injury, vasomotor nephropathy -acute on chronic systolic and diastolic heart failure -bed-bound status -complicated cystitis with ESBL in the urine. Plan: Events: Patient receiving hemodialysis. Worsening anemia with PRBC transfusion during HD today. Currently on norepinephrine drip at 1 microgram/minute. Instructed primary nurse to please weaned off Levophed. Plans for repeat CT scan tomorrow if patient has been off vasopressors. -continue midodrine -continue Invanz -full liquid diet -continue anticoagulation with Eliquis -Wean Levophed -repeat labs and Chest x ray in a.m. Critical care time spent with patient discussing and formulating plan of care: 40 minutes. This does not include time spent performing procedures. This medical document was created using an electronic medical record system with [employer] system. Although this document has been carefully reviewed, there may still be some phonetic and typographical errors. These areas are purely typographical due to imperfections of the software programs, and do not reflect any compromise in the patient's medical care. Plan discussed with: Patient, Other (RN) Date of Service: Apr 06, 2025 Billing Provider: GONZALO ASKEW NP Common Visit Codes: [id number] CARE 30-74 MIN GONZALO ASKEW NP Apr 06, 2025 09:18
--- NOTE | 2025-04-06 12:08 | DVHPN2 ---
Progress Note - Dictate Date Seen: Apr 06, 2025 Has the PT tested + for MRSA If YES, has PT been informed?: No Medical Necessity Reason Pt with a Central, PICC or Fol: Yes The following are medically ne: Tijer[place] Catheter Reason for tijerian catheter: Strict I&O vital signs Vital Sign Date Time Temp Pulse Resp B/P (MAP) Pulse Ox O2 Delivery O2 Flow Rate FiO2 04/06/25 11:50 109/59 04/06/25 11:44 85 18 100 04/06/25 11:36 Nasal Cannula* 3 32 04/06/25 10:19 98.0 98.0 Total Intake and Output 04/05/25 04/05/25 04/06/25 15:00 23:00 07:00 Intake Total 237.182 ml 403.814 ml 497.803 ml Output Total 760 ml 260 ml Balance 237.182 ml -356.186 ml 237.803 ml medications Current Medications Medications Dose Ordered Sig/Sravan Route Start Time Stop Time Status Last Admin Dose Admin Acetaminophen/ Hydrocodone Bitart 1 tab Q4HP PRN PO 03/20/25 12:15 03/30/25 00:45 1 TAB Ondansetron HCl 4 mg Q4HP PRN IV 03/20/25 12:15 03/26/25 08:18 4 MG Docusate Sodium 100 mg BIDPRN PRN PO 03/20/25 12:15 Acetaminophen 650 mg Q6HP PRN PO 03/20/25 12:15 03/28/25 10:59 650 MG Nitroglycerin 0.4 mg Q5MINP PRN SL 03/20/25 12:15 03/25/25 09:26 0.4 MG Morphine Sulfate 2 mg Q30M PRN IV 03/20/25 12:15 03/25/25 09:43 2 MG Allopurinol 100 mg DAILY PO 03/21/25 10:00 04/06/25 11:32 100 MG Apixaban 2.5 mg BID PO 03/20/25 22:00 04/06/25 11:38 2.5 MG Cilostazol 100 mg BID PO 03/20/25 22:00 04/06/25 11:41 100 MG Patient Own Medication 1 tab DAILY PO 03/21/25 10:00 UNV Patient Own Medication 1 tab DAILY PO 03/21/25 10:00 UNV Gabapentin 300 mg DAILY PO 03/21/25 10:00 04/06/25 11:32 300 MG Levothyroxine Sodium 112 mcg DAILY PO 03/21/25 10:00 04/06/25 11:32 112 MCG Levothyroxine Sodium 25 mcg DAILY PO 03/21/25 10:00 04/06/25 11:32 25 MCG Diphenhydramine HCl 50 mg [id number] PRN PO 03/21/25 16:45 03/21/25 22:57 50 MG Albuterol 2.5 mg Q6HR NEB 03/21/25 18:00 04/06/25 11:36 2.5 MG Ipratropium [place] 0.5 mg Q6HWA NEB 03/21/25 18:00 04/06/25 11:36 0.5 MG Patient Own Medication 1 tab BID PO 03/21/25 22:00 04/06/25 11:40 1 TAB Throat Lozenges 1 liv Q2HP PRN MT 03/23/25 04:00 03/23/25 14:52 1 LIV Pantoprazole Sodium 40 mg DAILY IV 03/26/25 10:00 04/06/25 11:31 40 MG Magnesium Oxide 400 mg DAILY PO 03/27/25 10:00 04/06/25 11:32 400 MG Ertapenem 0.5 gm DAILY IM 03/27/25 11:15 Cancel Diagnostic Test (Pha) 1 strip Q6HR 03/27/25 18:00 04/06/25 05:38 1 STRIP Insulin Human Regular FOLLOW SLIDING SCALE Q6HR SC 03/27/25 18:00 04/03/25 06:18 2 UNITS Dextrose 50 ml UD IV 03/27/25 12:30 Norepinephrine Bitartrate 250 ml @ 0.938 mls/ hr Q24H IV 03/28/25 09:15 04/06/25 10:08 1.875 MLS/HR Amiodarone HCl 200 mg Q12HR PO 03/29/25 10:00 04/06/25 11:31 200 MG Nystatin 1 applic DAILY TOP 04/01/25 10:00 04/06/25 11:41 1 APPLIC Multivit/Ca Carb/ B Cmplx/FA/Prenat 1 tab DAILY PO 04/03/25 10:00 04/06/25 11:40 1 TAB Ferrous Sulfate 325 mg BIDWM PO 04/03/25 18:00 04/06/25 11:38 325 MG Bumetanide 2 mg BID IV 04/03/25 22:00 04/06/25 11:33 2 MG Ertapenem 0.5 gm/ Sodium Chloride 50 ml @ 100 mls/hr DAILY IV 04/04/25 10:00 04/06/25 11:39 100 MLS/HR Midodrine 10 mg TID@0600,1200,1800 PO 04/04/25 12:00 04/06/25 05:37 10 MG Albuterol 2.5 mg Q4HR NEB 04/06/25 14:00 UNV Ipratropium [place] 0.5 mg Q4HR NEB 04/06/25 14:00 UNV laboratory and microbiology Laboratory Tests 04/06/25 03:11 Test 04/06/25 03:11 Range/Units Serum Glucose 94 74-106 mg/dL Assessment/Plan SCOT hypoxemia COPD pneumonia left hydronephrosis septic shock pt seen and examined in the ICU events s/p percut abd drain placement ESBL in fluid started on HD 2 lpm 02 off pressors this morning Labs and imaging studies reviewed BUN and creatinine elevated management plan 02 keep sats above 90% bronchodilators for copd-stable levophed as needed\ keep MAP above 65 mm Hg HD per nephrology continue antibiotics f/u cultures gi and dvt proph crit care time 35 min Dietary Evaluation Review Comments: Renal Specific 60g CCHO-60 Cardiac Diet d/t SCOT over CKD and low GFR Expected Outcomes/Goals: less uremic symptoms, better weight management Plan discussed with: Patient CC Plasma Assessment Blood Product Administration S: [id number] MD Apr 06, 2025 12:08
[2025-04-06] MEDS: ALBUTEROL SULF 2.5 MG/0.5ML(0.5%) NEB SOLN NEB SCH (14:06)
[2025-04-06] MEDS: IPRATROPIUM BROM 0.5 MG/2.5ML INH SOL NEB SCH (14:06)
--- NOTE | 2025-04-06 15:09 | DVHPN2 ---
Progress Note - Dictate Date Seen: Apr 06, 2025 Has the PT tested + for MRSA If YES, has PT been informed?: No Medical Necessity Reason Pt with a Central, PICC or Fol: Yes The following are medically ne: Tijerina Catheter Reason for tijerina catheter: Strict I&O Subjective Last dialysis 04/03/2025. Patient today complains of more shortness of breath. RN at bedside has been weaning off the Levophed. vital signs Vital Sign Date Time Temp Pulse Resp B/P (MAP) Pulse Ox O2 Delivery O2 Flow Rate FiO2 04/06/25 14:14 95 16 99 04/06/25 14:06 Nasal Cannula 3.0 04/06/25 14:06 32 04/06/25 11:50 109/59 04/06/25 11:20 98.0 98.0 Total Intake and Output 04/05/25 04/05/25 04/06/25 15:00 23:00 07:00 Intake Total 237.182 ml 403.814 ml 497.803 ml Output Total 760 ml 260 ml Balance 237.182 ml -356.186 ml 237.803 ml medications Current Medications Medications Dose Ordered Sig/Sravan Route Start Time Stop Time Status Last Admin Dose Admin Acetaminophen/ Hydrocodone Bitart 1 tab Q4HP PRN PO 03/20/25 12:15 03/30/25 00:45 1 TAB Ondansetron HCl 4 mg Q4HP PRN IV 03/20/25 12:15 03/26/25 08:18 4 MG Docusate Sodium 100 mg BIDPRN PRN PO 03/20/25 12:15 Acetaminophen 650 mg Q6HP PRN PO 03/20/25 12:15 03/28/25 10:59 650 MG Nitroglycerin 0.4 mg Q5MINP PRN SL 03/20/25 12:15 03/25/25 09:26 0.4 MG Morphine Sulfate 2 mg Q30M PRN IV 03/20/25 12:15 03/25/25 09:43 2 MG Allopurinol 100 mg DAILY PO 03/21/25 10:00 04/06/25 11:32 100 MG Apixaban 2.5 mg BID PO 03/20/25 22:00 04/06/25 11:38 2.5 MG Cilostazol 100 mg BID PO 03/20/25 22:00 04/06/25 11:41 100 MG Patient Own Medication 1 tab DAILY PO 03/21/25 10:00 UNV Patient Own Medication 1 tab DAILY PO 03/21/25 10:00 UNV Gabapentin 300 mg DAILY PO 03/21/25 10:00 04/06/25 11:32 300 MG Levothyroxine Sodium 112 mcg DAILY PO 03/21/25 10:00 04/06/25 11:32 112 MCG Levothyroxine Sodium 25 mcg DAILY PO 03/21/25 10:00 04/06/25 11:32 25 MCG Diphenhydramine HCl 50 mg [id number] PRN PO 03/21/25 16:45 03/21/25 22:57 50 MG Patient Own Medication 1 tab BID PO 03/21/25 22:00 04/06/25 11:40 1 TAB Throat Lozenges 1 liv Q2HP PRN MT 03/23/25 04:00 03/23/25 14:52 1 LIV Pantoprazole Sodium 40 mg DAILY IV 03/26/25 10:00 04/06/25 11:31 40 MG Magnesium Oxide 400 mg DAILY PO 03/27/25 10:00 04/06/25 11:32 400 MG Ertapenem 0.5 gm DAILY IM 03/27/25 11:15 Cancel Diagnostic Test (Pha) 1 strip Q6HR 03/27/25 18:00 04/06/25 13:03 1 STRIP Insulin Human Regular FOLLOW SLIDING SCALE Q6HR SC 03/27/25 18:00 04/03/25 06:18 2 UNITS Dextrose 50 ml UD IV 03/27/25 12:30 Norepinephrine Bitartrate 250 ml @ 0.938 mls/ hr Q24H IV 03/28/25 09:15 04/06/25 10:08 1.875 MLS/HR Amiodarone HCl 200 mg Q12HR PO 03/29/25 10:00 04/06/25 11:31 200 MG Nystatin 1 applic DAILY TOP 04/01/25 10:00 04/06/25 11:41 1 APPLIC Multivit/Ca Carb/ B Cmplx/FA/Prenat 1 tab DAILY PO 04/03/25 10:00 04/06/25 11:40 1 TAB Ferrous Sulfate 325 mg BIDWM PO 04/03/25 18:00 04/06/25 14:35 325 MG Bumetanide 2 mg BID IV 04/03/25 22:00 04/06/25 11:33 2 MG Ertapenem 0.5 gm/ Sodium Chloride 50 ml @ 100 mls/hr DAILY IV 04/04/25 10:00 04/06/25 11:39 100 MLS/HR Midodrine 10 mg TID@0600,1200,1800 PO 04/04/25 12:00 04/06/25 13:30 10 MG Albuterol 2.5 mg Q4HR NEB 04/06/25 14:00 04/06/25 14:06 2.5 MG Ipratropium [place] 0.5 mg Q4HR NEB 04/06/25 14:00 04/06/25 14:06 0.5 MG objective HEENT: No evidence of JVD, no oral ulcers. Pulmonary: Crackles on auscultation bilaterally Cardiovascular S1-S2, no S3 or S4 Abdomen: Bowel sounds positive, soft no rebound tenderness Skin: No rash Neurological: Alert, oriented, no focal weakness Extremities: 2+ lower extremity edema pitting Right upper chest CVC in place. laboratory and microbiology Laboratory Tests 04/06/25 03:11 Test 04/06/25 03:11 Range/Units Serum Glucose 94 74-106 mg/dL Assessment/Plan Assessment: Nonoliguric Acute kidney injury superimposed on CKD 4 Patient has tenuous renal function along with chronic fluid overload very difficult to manage historically because of the need of high doses of loop diuretics along with thiazide diuretic to manage hypovolemia with ensuing worsening of the renal function. Sepsis with a urine culture growing E coli and Klebsiella both of which are ESBL . Wound culture with E coli ESBL Septic shock Currently off Levophed Status post drainage of left pelvic abscess Left hydronephrosis which has a resolved Acute on chronic diastolic heart failure Anemia status post transfusion of PRBC Pulmonary hypertension Atrial fibrillation Bed-bound patient Chronic alcoholism in remission, last alcoholic beverage three months ago. Assessment/Plan Hemodialysis today Continue Bumex b.i.d. IV accounting manager cpa to arrange chair time, we will monitor for renal recovery within the next 90 days Labs in a.m. Of Levophed Fluid restriction less than 1 L per day, renal diet Midodrine 3 times a day and during dialysis Would want to continue with the medical management for now. Continue TPN Overall long-term prognosis is guarded Dietary Evaluation Review Comments: Renal Specific 60g CCHO-60 Cardiac Diet d/t SCOT over CKD and low GFR Expected Outcomes/Goals: less uremic symptoms, better weight management Plan discussed with: Patient CC Plasma Assessment Blood Product Administration S: [id number] [address] MD Apr 06, 2025 15:09
[2025-04-06] MEDS: EPOETIN ALFA-EPBX 10,000 UNIT/1ML VIAL SC ONE (21:05)
--- NOTE | 2025-04-06 21:30 | DVHPN2 ---
Progress Note - Dictate Date Seen: Apr 06, 2025 Has the PT tested + for MRSA If YES, has PT been informed?: No Medical Necessity Reason Pt with a Central, PICC or Fol: Yes The following are medically ne: Tijer[place] Catheter Reason for tijerina catheter: Strict I&O Subjective No new complaints ; abdominal pain improved Eating full liquid diet Patient is resting comfortably ; no shortness of breath ALEKSANDAR drain output is minimal bloody less than 5 mL Patient underwent hemodialysis, 1.5 L of fluid were removed vital signs Vital Sign Date Time Temp Pulse Resp B/P (MAP) Pulse Ox O2 Delivery O2 Flow Rate FiO2 04/06/25 19:30 103 23 106/50 (68) 91 04/06/25 19:00 Nasal Cannula* 3 32 04/06/25 16:00 97.6 97.6 Total Intake and Output 04/05/25 04/05/25 04/06/25 15:00 23:00 07:00 Intake Total 237.182 ml 403.814 ml 497.803 ml Output Total 760 ml 260 ml Balance 237.182 ml -356.186 ml 237.803 ml medications Current Medications Medications Dose Ordered Sig/Sravan Route Start Time Stop Time Status Last Admin Dose Admin Acetaminophen/ Hydrocodone Bitart 1 tab Q4HP PRN PO 03/20/25 12:15 03/30/25 00:45 1 TAB Ondansetron HCl 4 mg Q4HP PRN IV 03/20/25 12:15 03/26/25 08:18 4 MG Docusate Sodium 100 mg BIDPRN PRN PO 03/20/25 12:15 Acetaminophen 650 mg Q6HP PRN PO 03/20/25 12:15 03/28/25 10:59 650 MG Nitroglycerin 0.4 mg Q5MINP PRN SL 03/20/25 12:15 03/25/25 09:26 0.4 MG Morphine Sulfate 2 mg Q30M PRN IV 03/20/25 12:15 03/25/25 09:43 2 MG Allopurinol 100 mg DAILY PO 03/21/25 10:00 04/06/25 11:32 100 MG Apixaban 2.5 mg BID PO 03/20/25 22:00 04/06/25 11:38 2.5 MG Cilostazol 100 mg BID PO 03/20/25 22:00 04/06/25 11:41 100 MG Patient Own Medication 1 tab DAILY PO 03/21/25 10:00 UNV Patient Own Medication 1 tab DAILY PO 03/21/25 10:00 UNV Gabapentin 300 mg DAILY PO 03/21/25 10:00 04/06/25 11:32 300 MG Levothyroxine Sodium 112 mcg DAILY PO 03/21/25 10:00 04/06/25 11:32 112 MCG Levothyroxine Sodium 25 mcg DAILY PO 03/21/25 10:00 04/06/25 11:32 25 MCG Diphenhydramine HCl 50 mg [id number] PRN PO 03/21/25 16:45 03/21/25 22:57 50 MG Patient Own Medication 1 tab BID PO 03/21/25 22:00 04/06/25 11:40 1 TAB Throat Lozenges 1 liv Q2HP PRN MT 03/23/25 04:00 03/23/25 14:52 1 LIV Pantoprazole Sodium 40 mg DAILY IV 03/26/25 10:00 04/06/25 11:31 40 MG Magnesium Oxide 400 mg DAILY PO 03/27/25 10:00 04/06/25 11:32 400 MG Ertapenem 0.5 gm DAILY IM 03/27/25 11:15 Cancel Diagnostic Test (Pha) 1 strip Q6HR 03/27/25 18:00 04/06/25 17:23 1 STRIP Insulin Human Regular FOLLOW SLIDING SCALE Q6HR SC 03/27/25 18:00 04/03/25 06:18 2 UNITS Dextrose 50 ml UD IV 03/27/25 12:30 Norepinephrine Bitartrate 250 ml @ 0.938 mls/ hr Q24H IV 03/28/25 09:15 04/06/25 10:08 1.875 MLS/HR Amiodarone HCl 200 mg Q12HR PO 03/29/25 10:00 04/06/25 11:31 200 MG Nystatin 1 applic DAILY TOP 04/01/25 10:00 04/06/25 11:41 1 APPLIC Multivit/Ca Carb/ B Cmplx/FA/Prenat 1 tab DAILY PO 04/03/25 10:00 04/06/25 11:40 1 TAB Ferrous Sulfate 325 mg BIDWM PO 04/03/25 18:00 04/06/25 17:21 325 MG Bumetanide 2 mg BID IV 04/03/25 22:00 04/06/25 11:33 2 MG Ertapenem 0.5 gm/ Sodium Chloride 50 ml @ 100 mls/hr DAILY IV 04/04/25 10:00 04/06/25 11:39 100 MLS/HR Midodrine 10 mg TID@0600,1200,1800 PO 04/04/25 12:00 04/06/25 17:21 10 MG Albuterol 2.5 mg Q4HR NEB 04/06/25 14:00 04/06/25 19:00 2.5 MG Ipratropium [place] 0.5 mg Q4HR NEB 04/06/25 14:00 04/06/25 19:00 0.5 MG objective General examination- awake, alert HEENT- PEERLA, morbidly obese Cardiovascular- S1-S2 audible, rate and rhythm regular, no murmur Respiratory- CTAB, no wheeze or rhonchi Gastrointestinal-lower abdominal wall tenderness+, bowel sound+. Nondistended Musculoskeletal-no acute joint swelling or tenderness or redness Lower extremity- no leg edema Neurological- cranial nerves intact, no acute dysarthria or dysphagia laboratory and microbiology Laboratory Tests 04/06/25 03:11 Test 04/06/25 03:11 Range/Units Serum Glucose 94 74-106 mg/dL Problems(with codes): (1) Cardiac volume overload (2) Acute on chronic diastolic CHF (congestive heart failure) (3) Atrial fibrillation with RVR (4) COPD with acute exacerbation (5) Symptomatic anemia (6) Sepsis (7) Generalized weakness (8) Pelvic abscess in female Prognosis Plan IV fluid hydration IV antibiotics Currently on full liquid diet Possible repeat imaging in 48-72 hours and then decide about advancing diet Continue supportive care for now, prognosis remains guarded Dietary Evaluation Review Comments: Renal Specific 60g CCHO-60 Cardiac Diet d/t SCOT over CKD and low GFR Expected Outcomes/Goals: less uremic symptoms, better weight management Plan discussed with: Patient, Other (ICU Nurse) CC Plasma Assessment Blood Product Administration S: [id number] MAGALYS AQUINO MD Apr 06, 2025 21:30
[2025-04-07] VITALS (106 sets, daily range): BP systolic 69–118; BP diastolic 30–63; PULSE 92–114; RESP 11–24; TEMP 97.5–98.2; O2SAT 86–100
[2025-04-07 03:45] LABS: Hemoglobin 7.9 g/dL (12.2-16.2)
[2025-04-07 03:52] LABS: Hematocrit 23.7 % (36.0-46.0); Mean Corpuscular Hemoglobin 29.1 pg (28.0-32.0); Mean Corpuscular Volume 87.1 fL (80.0-100.0); Nucleated Red Blood Cells % 0.1 %
[2025-04-07 04:05] LABS: Alanine Aminotransferase 11 U/L (7-40); Albumin 3.4 g/dL (3.2-4.8); Alkaline Phosphatase 100 U/L (46-116); Anion Gap 11 (5-15); Calcium 9.8 mg/dL (8.7-10.4); Carbon Dioxide 28 mmol/L (20-31); Chloride 101 mmol/L (98-107); Glucose 88 mg/dL (74-106); Potassium 3.9 mmol/L (3.5-5.1); Sodium 140 mmol/L (136-145)
[2025-04-07 04:13] LABS: BUN/Creatinine Ratio 19.4 (10.0-20.0); Bilirubin, Total 1.6 mg/dL (0.2-1.0); Blood Urea Nitrogen 40 mg/dL (9-23); Total Protein 6.0 g/dL (5.7-8.2)
[2025-04-07] MEDS: SODIUM CHL 0.9% 1000 ML BAG XX ONE (07:00)
--- NOTE | 2025-04-07 08:20 | DVHPN2 ---
Progress Note - Dictate Date Seen: Apr 07, 2025 Has the PT tested + for MRSA If YES, has PT been informed?: No Medical Necessity Reason Pt with a Central, PICC or Fol: Yes The following are medically ne: Tijerina Catheter Reason for tijerina catheter: Strict I&O vital signs Vital Sign Date Time Temp Pulse Resp B/P (MAP) Pulse Ox O2 Delivery O2 Flow Rate FiO2 04/07/25 06:35 95 18 98 04/07/25 06:30 107/53 (71) 04/07/25 06:27 Nasal Cannula* 3 32 04/07/25 04:00 97.5 97.5 Total Intake and Output 04/06/25 04/06/25 04/07/25 15:00 23:00 07:00 Intake Total 357.500 ml 600 ml 415.002 ml Output Total 260 ml 151 ml Balance 357.500 ml 340 ml 264.002 ml medications Current Medications Medications Dose Ordered Sig/Sravan Route Start Time Stop Time Status Last Admin Dose Admin Acetaminophen/ Hydrocodone Bitart 1 tab Q4HP PRN PO 03/20/25 12:15 03/30/25 00:45 1 TAB Ondansetron HCl 4 mg Q4HP PRN IV 03/20/25 12:15 03/26/25 08:18 4 MG Docusate Sodium 100 mg BIDPRN PRN PO 03/20/25 12:15 Acetaminophen 650 mg Q6HP PRN PO 03/20/25 12:15 03/28/25 10:59 650 MG Nitroglycerin 0.4 mg Q5MINP PRN SL 03/20/25 12:15 03/25/25 09:26 0.4 MG Morphine Sulfate 2 mg Q30M PRN IV 03/20/25 12:15 03/25/25 09:43 2 MG Allopurinol 100 mg DAILY PO 03/21/25 10:00 04/06/25 11:32 100 MG Apixaban 2.5 mg BID PO 03/20/25 22:00 04/06/25 22:28 2.5 MG Cilostazol 100 mg BID PO 03/20/25 22:00 04/06/25 22:28 100 MG Patient Own Medication 1 tab DAILY PO 03/21/25 10:00 UNV Patient Own Medication 1 tab DAILY PO 03/21/25 10:00 UNV Gabapentin 300 mg DAILY PO 03/21/25 10:00 04/06/25 11:32 300 MG Levothyroxine Sodium 112 mcg DAILY PO 03/21/25 10:00 04/06/25 11:32 112 MCG Levothyroxine Sodium 25 mcg DAILY PO 03/21/25 10:00 04/06/25 11:32 25 MCG Diphenhydramine HCl 50 mg [id number] PRN PO 03/21/25 16:45 03/21/25 22:57 50 MG Patient Own Medication 1 tab BID PO 03/21/25 22:00 04/06/25 22:31 1 TAB Throat Lozenges 1 liv Q2HP PRN MT 03/23/25 04:00 03/23/25 14:52 1 LIV Pantoprazole Sodium 40 mg DAILY IV 03/26/25 10:00 04/06/25 11:31 40 MG Magnesium Oxide 400 mg DAILY PO 03/27/25 10:00 04/06/25 11:32 400 MG Ertapenem 0.5 gm DAILY IM 03/27/25 11:15 Cancel Diagnostic Test (Pha) 1 strip Q6HR 03/27/25 18:00 04/07/25 05:37 1 STRIP Insulin Human Regular FOLLOW SLIDING SCALE Q6HR SC 03/27/25 18:00 04/03/25 06:18 2 UNITS Dextrose 50 ml UD IV 03/27/25 12:30 Norepinephrine Bitartrate 250 ml @ 0.938 mls/ hr Q24H IV 03/28/25 09:15 04/06/25 10:08 1.875 MLS/HR Amiodarone HCl 200 mg Q12HR PO 03/29/25 10:00 04/06/25 22:28 200 MG Nystatin 1 applic DAILY TOP 04/01/25 10:00 04/06/25 11:41 1 APPLIC Multivit/Ca Carb/ B Cmplx/FA/Prenat 1 tab DAILY PO 04/03/25 10:00 04/06/25 11:40 1 TAB Ferrous Sulfate 325 mg BIDWM PO 04/03/25 18:00 04/06/25 17:21 325 MG Bumetanide 2 mg BID IV 04/03/25 22:00 04/06/25 22:31 2 MG Ertapenem 0.5 gm/ Sodium Chloride 50 ml @ 100 mls/hr DAILY IV 04/04/25 10:00 04/06/25 11:39 100 MLS/HR Midodrine 10 mg TID@0600,1200,1800 PO 04/04/25 12:00 04/07/25 05:41 10 MG Albuterol 2.5 mg Q4HR NEB 04/06/25 14:00 04/07/25 06:27 2.5 MG Ipratropium [place] 0.5 mg Q4HR NEB 04/06/25 14:00 04/07/25 06:27 0.5 MG laboratory and microbiology Laboratory Tests 04/07/25 03:27 Test 04/07/25 03:27 Range/Units Serum Glucose 88 74-106 mg/dL Assessment/Plan Patient is a 74-year-old female who was admitted on March 20, 2025 for abdominal pain/nausea/vomiting. She is admitted to ICU for septic shock. On March 24, 2025, cardiology was involved for cardiac aspects of care. Patient is known to our practice from before and previous admissions. She is known to have significant alcohol abuse (drinks whiskey every day) and also history of pulmonary hypertension/type 2 pulmonary hypertension, diastolic heart failure. Does have poor functional capacity and is bed-bound. Is significantly morbidly obese. Does have baseline history of atrial fibrillation and is on Eliquis as outpatient. Is found to have septic shock and possible pelvic abscess. Is seen by surgery/Urology/pulmonary/GI. Denies chest pains. Denies palpitations. Is noncompliant with medication and followups. While being managed in ICU was found to have atrial fibrillation with RVR. 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 She has had multiple surgeries in the bilateral feet. She also has history of COPD/asthma with chronic respiratory failure (on home oxygen). Morbidly obese. Not in acute distress. No JVD. Mucosa is dry. Mucosa is pink. No JVD. No carotid bruit. Not using accessory muscles of breathing. Scattered rhonchi in the lungs is heard. Cardiac: Irregular, no thrill. Abdomen is obese and soft. There is no gross hepatomegaly, but it is presence can not be ruled out (body habitus, morbidly obese). There is 3+ edema in bilateral lower extremities which extends to abdominal wall. Past medical history includes morbid obesity, atrial fibrillation (on Eliquis as outpatient), COPD/asthma with chronic respiratory failure on home oxygen, morbid obesity, hypertension, hyperlipidemia, chronic lymphedema, Diastolic heart failure with type 2 pulmonary hypertension, rheumatoid arthritis, osteoarthritis, peripheral vascular disease, CKD (stage IV), anemia, alcohol abuse, neuropathy, gout, old history of right and left foot fracture and their management, status post right knee replacement, status post , bed-bound at baseline and functional quadriplegia. Patient drinks whiskey daily. Goes to Nephrology regularly. Reportedly, there has been some concern about going to have fistula creation on preparation for dialysis? Echocardiogram of January 03 2024 (performed in [facility]) revealed ejection fraction of 60%, mild biatrial enlargement, mild MR/TR and right ventricular systolic pressure of 31 mm Hg. Echocardiogram of (performed in [facility]) revealed: EF of 50 to 55%, Dilated right ventricle with normal systolic function. Severe biatrial enlargement. Mild AI, mild to moderate MR, moderate TR and RVSP of 51 mmHg. Ascending Aorta was 3.7 cm. Echocardiogram of November 09, 2024 revealed ejection fraction of 72%, mild right ventricular enlargement, moderate biatrial enlargement, mild to moderate tricuspid regurgitation, mild mitral regurgitation, right ventricular systolic pressure 54 mm Hg Echocardiogram of February 23, 2025 revealed ejection fraction of around 50%, mild concentric left ventricular hypertrophy, right ventricular enlargement with preserved systolic function. Biatrial enlargement, mild aortic insufficiency, [id number] mitral regurgitation and tricuspid regurgitation. IVC was significantly dilated. Right ventricular systolic pressure of of 55 mm Hg Hemoglobin: 6.7 - 8.6 - 8.1 - 7.6 - 7.9 - 7.7 - 7.8 - 7.8 - 7.6 - 7.5 - 7.1 - 7.0 - 8.5 - 8.2 - 7.6 - 7.7 - 7.5 - 7.1 - 7.0 - 6.8 - 7.9 Creatinine: 3.29 - 2.63 - 2.77 - 2.59 - 2.13 - 1.98 - 1.98 - 2.47- 2.98 - 3.36 - 3.56 - 3.83 - 4.12 - 4.27 - 4.67 - 4.54 - 2.92 - 2.91 - 2.98 - 2.06 Potassium: 3.9 - 3.4 - 3.8 - 3.3 - 3.4 - 3.9 - 3.5 - 3.5 - 3.3 - 3.4 - 3.7 - 3.8 - 4.0 - 4.3 - 4.0 - 3.6 - 3.3 - 3.5 - 3.9 - 3.9 Troponin (high sensitive): 32 - 31 - 34 TSH: 0.17 - 0.15 T3: 0.40 (low) T4: 5.7 Free T4: 1.27 Free T3: 1.55 (low) Urine and Aspirate culture: ESBL E-coli Chest x-ray revealed: IMPRESSION: Cardiomegaly. Repeat chest x-ray revealed: IMPRESSION: 1. Cardiomegaly with increased interstitial prominence suggestive of CHF exacerbation. 2. Pulmonary arterial hypertension. Repeat chest x-ray revealed: IMPRESSION: Cardiomegaly with mild pulmonary congestion. . Repeat chest x-ray revealed: IMPRESSION: Cardiomegaly with pulmonary congestion and edema. Superimposed pneumonia cannot be excluded. Repeat chest x-ray revealed: IMPRESSION: Worsening right lower lung airspace disease. Suggestion of small bilateral pleural effusions. Repeat chest xray revealed: IMPRESSION: No significant interval change Repeat chest xry revealed: IMPRESSION: 1. Right internal jugular hemodialysis catheter in place with tip at the cavoatrial junction. 2. Right internal jugular catheter in place unchanged 3. Findings suggest worsening airspace disease in probable congestive failure or volume overload. Abdominal ultrasound revealed: IMPRESSION: Small left hydronephrosis Renal scan revealed: IMPRESSION: Bilateral renal obstruction is present which is not response to Lasix administration suggesting that the kidney may be minimally functional. Abdomen and pelvic CT scan revealed: IMPRESSION: Moderate left hydroureteronephrosis. Suggestion of possible small abscess formation in the left hemipelvis associated with the sigmoid colon measuring 5.7 cm. This may represent site of ureteral obstruction. Clinical correlation advised. Examination is limited secondary to lack of intravenous and oral contrast administration. Abdomen and pelvis CT revealed: IMPRESSION: Sigmoid colonic diverticulitis with an adjacent 6 cm fluid collection with gas, could be an abscess. Probable fistula of the sigmoid to the fluid collection, and possibly with the urinary bladder, which is decompressed with a Tijerina. Possible trace left hydronephrosis with perinephric fat stranding. Repeat CT of abdomen and pelvis revealed: IMPRESSION: Small to moderate bilateral pleural effusions and associated compressive atelectasis / consolidation. Left lower quadrant pelvic drain in satisfactory position with significant interval decrease in size of abscess currently measuring 2.2 cm, previously 5.[address] guided abscess drainage: IMPRESSION: CT guided placement of 8 ghanaian pigtail drain into a left hemipelvic abscess with 30 mL purulent fluid aspirated. PLAN: Routine tube care. Renal ultrasound revealed: IMPRESSION: Unremarkable renal ultrasound without hydronephrosis seen. EKG revealed atrial fibrillation with RVR Tele reveals atrial fibrillation with RVR Echocardiogram revealed: Left ventricle: Mild concentric left ventricular hypertrophy was seen. LVEF was around 50%. Right ventricle was mildly dilated with reduced systolic function. Both atria were dilated. Aortic valve was not well visualized. There was no aortic insufficiency/stenosis. There was mild mitral regurgitation. There was [id number] tricuspid regurgitation. Pulmonary valve was not well visualized. Right ventricular systolic pressure was assessed at 50 mm Hg. IVC was dilated. There was no pericardial effusion. Patient is a 74-year-old female with known history of diastolic heart failure with type 2 pulmonary hypertension who presented with abdominal pain. He is admitted to ICU with septic shock. Did have thrombocytopenia which slowly improved. Was significantly anemic and was transfused PRBC. There has been question about pelvic abscess and the patient is on antibiotics. Patient is being followed by surgery/Urology/pulmonary/GI. It is of note that the patient does have history of significant alcohol abuse (drinks good amount of whiskey daily) which could contribute to to some component of the clinical picture. Does have baseline history of pulmonary hypertension. Usually is on some amount of diuretic (Bumex) as outpatient. Clinically, the patient does have dry mucosa and maybe behind fluids at the time of evaluation. Does have baseline poor functional capacity. Does have history of recent sepsis. s/p CT guided abscess drainage. Seen by Nephrology. Diuretics are on hold. TFT are in favor of subclinical thyroid problem. Still with poor kidney function. Nephrology suggested hemodialysis, patient is hesitant. Significant anemia, status post PRBC transfusion Thrombocytopenia, resolved Septic shock SCOT on CKD Hydronephrosis Pelvic abscess Transaminitis Acute on chronic diastolic heart failure Pulmonary Hypertension, type 2 Alcohol abuse Morbid obesity Poor functional capacity Bed-bound at baseline Atrial fibrillation with RVR Hyperlipidemia Osteoarthritis Rheumatoid arthritis Peripheral vascular disease Abdominal abscess? s/p CT guided abscess drainage s/p PRBC transfusion Cardiac suggestion for management: Manage in ICU Follow-up electrolytes and kidney function tests and correct abnormalities Full anticoagulation (on Eliquis presently), long-term Septic shock, still on pressure support and IV antibiotics On Midodrine Started on HD s/p PRBC transfusion for anemi On oral amiodarone Pressor support at this point to keep mean arterial pressure above 65 Evaluation and management of sepsis/infection as per primary team Evaluation and management of alcohol abuse/prevention of withdrawal as per primary team Evaluation and management of pelvic abscess/hydronephrosis as per primary team/surgery/Urology Further evaluation and management depends on the above and clinical course A total of 75 minutes was spent reviewing the patient record, examining the patient, making a diagnostic and therapeutic plan, discussing this plan with medical personnel, following up on diagnostic studies and following the patient for clinical stability excluding any and all procedures. At least 50% of this time was spent in direct, [id number] contact. Thank you for allowing me to participate in this patient's care. Further recommendations will depend on patient's clinical course. Please do not hesitate to contact me if you have any questions or concerns. This medical document was created using electronic medical record system with [employer] computerized dictation system. Although this document has been carefully reviewed, there may still be some phonetic and typographical errors. These areas are purely typographical due to the imperfection of the software programs, and do not reflect any compromise in the patient's medical care. Dietary Evaluation Review Comments: Renal Specific 60g CCHO-60 Cardiac Diet d/t SCOT over CKD and low GFR Expected Outcomes/Goals: less uremic symptoms, better weight management Plan discussed with: Patient, Other (nurse) CC Plasma Assessment Blood Product Administration S: [id number] AUSTIN ROMERO MD Apr 07, 2025 08:20
--- NOTE | 2025-04-07 10:04 | DVHPN2 ---
Subjective Denies any symptoms at this time Reviewed: Care Plan, H&P, Labs, Medications, Previous Orders, Radiology Changes from previous H/P or p: No Changes General: Per HPI Eyes: No Pain, No Vision change, No Conjunctivae inflammation, No Eyelid inflammation, No Other, No Redness ENT: No Ear pain, No Ear discharge, No Nose pain, No Nose discharge, No Nose congestion, No Mouth pain, No Mouth swelling, No Throat pain, No Throat swelling, No Other Cardiovascular: No Chest Pain, No Palpitations, No Orthopnea, No Paroxysmal Noc. Dyspnea, No Edema, No Lt Headedness, No Other Respiratory: No Cough, No Dry, No Shortness of breath, No SOB with excertion, No Wheezing, No Hemoptysis, No Pleuritic Pain, No Sputum, No Other Gastrointestinal: Nausea, Vomiting, Abdominal Pain Genitourinary: No Dysuria, No Frequency, No Incontinence, No Hematuria, No Retention, No Other Musculoskeletal: No other, No neck pain, No shoulder pain, No arm pain, No back pain, No hand pain, No leg pain, No foot pain Skin: No Rash, No Lesions, No Jaundice, No Bruising, No Other Objective Vitals Vital Signs Date Time Temp Pulse Resp B/P (MAP) Pulse Ox O2 Delivery O2 Flow Rate FiO2 04/07/25 09:48 108 22 96 04/07/25 09:48 Nasal Cannula 3.0 04/07/25 09:48 32 04/07/25 06:30 107/53 (71) 04/07/25 04:00 97.5 97.5 Intake/Output Intake and Output 04/07/25 07:00 Intake Total 1372.502 ml Output Total 411 ml Balance 961.502 ml Intake Oral 1000 ml IV Total 72.502 ml Blood Product 300 ml Output Urine Total 400 ml Stool Total 1 ml Other 10 ml General Appearance: Alert, Oriented X3, Cooperative, Other HEENT: Atraumatic, PERRLA Cardiovascular: Normal S1, Normal S2, Other Abdomen: Normal bowel sounds, Other Extremities: No edema, Normal pulses Neuro: Sensation intact, Cranial nerves 3-12 NL Skin: Dry, Intact Psych/Mental Status: Mental status NL, Mood NL Medications Current Medications Medications Dose Ordered Sig/Sravan Route Start Time Stop Time Status Last Admin Dose Admin Acetaminophen/ Hydrocodone Bitart 1 tab Q4HP PRN PO 03/20/25 12:15 03/30/25 00:45 1 TAB Ondansetron HCl 4 mg Q4HP PRN IV 03/20/25 12:15 03/26/25 08:18 4 MG Docusate Sodium 100 mg BIDPRN PRN PO 03/20/25 12:15 Acetaminophen 650 mg Q6HP PRN PO 03/20/25 12:15 03/28/25 10:59 650 MG Nitroglycerin 0.4 mg Q5MINP PRN SL 03/20/25 12:15 03/25/25 09:26 0.4 MG Morphine Sulfate 2 mg Q30M PRN IV 03/20/25 12:15 03/25/25 09:43 2 MG Allopurinol 100 mg DAILY PO 03/21/25 10:00 04/07/25 09:34 100 MG Apixaban 2.5 mg BID PO 03/20/25 22:00 04/07/25 09:35 2.5 MG Cilostazol 100 mg BID PO 03/20/25 22:00 04/07/25 09:34 100 MG Patient Own Medication 1 tab DAILY PO 03/21/25 10:00 UNV Patient Own Medication 1 tab DAILY PO 03/21/25 10:00 UNV Gabapentin 300 mg DAILY PO 03/21/25 10:00 04/07/25 09:34 300 MG Levothyroxine Sodium 112 mcg DAILY PO 03/21/25 10:00 04/07/25 09:34 112 MCG Levothyroxine Sodium 25 mcg DAILY PO 03/21/25 10:00 04/07/25 09:34 25 MCG Diphenhydramine HCl 50 mg [id number] PRN PO 03/21/25 16:45 03/21/25 22:57 50 MG Patient Own Medication 1 tab BID PO 03/21/25 22:00 04/07/25 09:35 1 TAB Throat Lozenges 1 liv Q2HP PRN MT 03/23/25 04:00 03/23/25 14:52 1 LIV Pantoprazole Sodium 40 mg DAILY IV 03/26/25 10:00 04/07/25 09:32 40 MG Magnesium Oxide 400 mg DAILY PO 03/27/25 10:00 04/07/25 09:33 400 MG Ertapenem 0.5 gm DAILY IM 03/27/25 11:15 Cancel Diagnostic Test (Pha) 1 strip Q6HR 03/27/25 18:00 04/07/25 05:37 1 STRIP Insulin Human Regular FOLLOW SLIDING SCALE Q6HR SC 03/27/25 18:00 04/03/25 06:18 2 UNITS Dextrose 50 ml UD IV 03/27/25 12:30 Norepinephrine Bitartrate 250 ml @ 0.938 mls/ hr Q24H IV 03/28/25 09:15 04/06/25 10:08 1.875 MLS/HR Amiodarone HCl 200 mg Q12HR PO 03/29/25 10:00 04/07/25 09:34 200 MG Nystatin 1 applic DAILY TOP 04/01/25 10:00 04/06/25 11:41 1 APPLIC Multivit/Ca Carb/ B Cmplx/FA/Prenat 1 tab DAILY PO 04/03/25 10:00 04/07/25 09:35 1 TAB Ferrous Sulfate 325 mg BIDWM PO 04/03/25 18:00 04/07/25 08:29 325 MG Bumetanide 2 mg BID IV 04/03/25 22:00 04/06/25 22:31 2 MG Ertapenem 0.5 gm/ Sodium Chloride 50 ml @ 100 mls/hr DAILY IV 04/04/25 10:00 04/06/25 11:39 100 MLS/HR Midodrine 10 mg TID@0600,1200,1800 PO 04/04/25 12:00 04/07/25 05:41 10 MG Albuterol 2.5 mg Q4HR NEB 04/06/25 14:00 04/07/25 09:48 2.5 MG Ipratropium [place] 0.5 mg Q4HR NEB 04/06/25 14:00 04/07/25 09:48 0.5 MG Laboratory Results Laboratory Tests 04/07/25 03:27 Chemistry Test 04/07/25 03:27 Albumin 3.4 g/dL (3.2-4.8) Calcium Level 9.8 mg/dL (8.7-10.4) Total Protein 6.0 g/dL (5.7-8.2) LFT Test 04/07/25 03:27 Alanine Aminotransferase (ALT) 11 U/L (7-40) Alkaline Phosphatase 100 U/L (46-116) Aspartate Amino Transferase (AST) 12 U/L (13-40) L Total Bilirubin 1.6 mg/dL (0.2-1.0) H Urinalysis Test 03/20/25 09:34 Urine Color Colorless (Yellow) Urine Clarity Turbid (Clear) H Urine pH 5.0 (5.0-9.0) Urine Specific [place] 1.015 (1.001-1.035) Urine Protein Negative (Negative) Urine Ketones Negative (Negative) Urine Blood Negative /uL (Negative) Urine Nitrite Negative (Negative) Urine Bilirubin Negative (Negative) Urine Urobilinogen Normal mg/dL (Negative) Urine Leukocyte Esterase 3+ /uL (Negative) Urine RBC 1 /hpf (0 - 4) Urine Microscopic WBC 255 /HPF (0-5) H Urine Squamous Epithelial Cells Few /hpf (<5) Urine Bacteria Few /hpf (None Seen) H Urine Glucose Normal mg/dL (Normal) Microbiology Microbiology Date/Time Source Procedure Growth Status 03/26/25 15:00 Aspirate Gram Stain - Final Complete 03/26/25 15:00 Body Fluid Culture - Final Escherichia coli - ESBL Enterobacter cloacae Proteus mirabilis Complete 03/23/25 04:30 Throat Nose/Throat Culture - Final Complete 03/21/25 18:00 Urine - Catheterized Urine Culture - Final Escherichia coli - ESBL Klebsiella pneumoniae - ESBL Complete 03/20/25 21:52 Nose MRSA Screen - Final Complete Labs and/or images reviewed: Labs reviewed by me, Image(s) reviewed by me Assessment/Plan Assessment/Plan Impression: -septic shock -diverticular abscess -AFib with RVR -morbid obesity -obstructive uropathy -CKD stage 4 -acute kidney injury, vasomotor nephropathy -acute on chronic systolic and diastolic heart failure -bed-bound status -complicated cystitis with ESBL in the urine. Plan: Events: H&H improved. Adequate urine output. Repeat CT scan of the abdomen and pelvis without contrast to reassess diverticular abscess. Patient was placed back on norepinephrine overnight, stop this a.m.. -continue midodrine -continue Invanz -full liquid diet -continue anticoagulation with Eliquis -repeat labs in a.m. Critical care time spent with patient discussing and formulating plan of care: 40 minutes. This does not include time spent performing procedures. This medical document was created using an electronic medical record system with [employer] dictation system. Although this document has been carefully reviewed, there may still be some phonetic and typographical errors. These areas are purely typographical due to imperfections of the software programs, and do not reflect any compromise in the patient's medical care. Plan discussed with: Patient, Other (Rn) My Orders Orders - GONZALO ASKEW NP Procedure Category Date Status Time Ct Ab Pel Wo Con-No CT 04/07/25 Logged Oral Or Iv 09:34 Date of Service: Apr 07, 2025 Billing Provider: GONZALO ASKEW NP Common Visit Codes: 21234-[id number] CARE 30-74 MIN GONZALO ASKEW NP Apr 07, 2025 10:04
--- NOTE | 2025-04-07 10:48 | DVH ---
EXAM DESCRIPTION: CT CT AB PEL WO CON-NO ORAL OR IV CLINICAL HISTORY: reassess diverticular abscess COMPARISON: CT CT AB PEL WO CON-NO ORAL OR IV on DOS: 04/02/25, CT CT AB PEL WO CON-NO ORAL OR IV on DO S: 03/26/25, CT CT AB PEL WO CON-NO ORAL OR IV on DOS: 03/20/25, [facility] on DOS: 01/17/22 TECHNIQUE: CT abdomen and pelvis without IV contrast was performed. Coronal and sagittal MPR images were generat ed.CTDI/ DLP = 27.88 / 1588.55 Dose reduction technique with one or more of the following methods was performed: Automated exposure control, adjustment of the mA and/or kV according to patient size, use of iterative reconstruction te chnique FINDINGS: Lower chest: Small bilateral pleural effusions with complete left lower lobe and subsegmental right l ower lobe atelectasis. Patchy ground glass opacity seen in the partially imaged bilateral upper lobes . Cardiomegaly. Liver: Homogenous in attenuation. . Biliary: No calcified gallstones. No biliary ductal dilatation. Pancreas: No fat stranding or focal lesion. Spleen: Normal in size.. Adrenal glands: No nodularity. Kidneys: No nephrolithiasis. No hydroureteronephrosis. . Bladder: Decompressed via Espinal catheter. Reproductive organs: Normal. Bowel: Unchanged mild wall thickening at the sigmoid colon with diverticulosis. The small bowel demon strates normal caliber and wall thickness. . Peritoneum: Slightly increased size of the fluid and gas collection adjacent to the sigmoid colon, no w measuring 5.2 x 3.9 x 4.3 cm. The percutaneous pigtail catheter is in appropriate location within t he collection. Vessels: Normal caliber abdominal aorta. Moderate atherosclerotic calcifications.. Lymph nodes: No suspicious lymph nodes. Soft tissues: Unremarkable. . Osseous structures: No acute fracture or subluxation. No suspicious osseous lesions. Degenerative c hanges of the visualized thoracolumbar spine. IMPRESSION: 1. Slightly increased size of the isabelle-sigmoid fluid and gas collection, now measuring 5.2 x 3.9 x 4. 3 cm. The percutaneous pigtail catheter is appropriately located within the collection. 2. Stable findings of sigmoid diverticulitis. 3. Small bilateral pleural effusions with complete left lower lobe and subsegmental right lower lobe atelectasis. 4. Partially imaged patchy ground glass opacities in the upper lobes of the lungs.
--- NOTE | 2025-04-07 12:53 | DVHPN2 ---
Progress Note - Dictate Date Seen: Apr 07, 2025 Has the PT tested + for MRSA If YES, has PT been informed?: No Medical Necessity Reason Pt with a Central, PICC or Fol: Yes The following are medically ne: Tijerina Catheter Reason for tijerina catheter: Strict I&O vital signs Vital Sign Date Time Temp Pulse Resp B/P (MAP) Pulse Ox O2 Delivery O2 Flow Rate FiO2 04/07/25 11:45 105 17 87/38 (54) 94 04/07/25 10:00 Nasal Cannula* 3 32 04/07/25 08:00 98.2 98.2 Total Intake and Output 04/06/25 04/06/25 04/07/25 15:00 23:00 07:00 Intake Total 357.500 ml 600 ml 415.002 ml Output Total 260 ml 151 ml Balance 357.500 ml 340 ml 264.002 ml medications Current Medications Medications Dose Ordered Sig/Sravan Route Start Time Stop Time Status Last Admin Dose Admin Acetaminophen/ Hydrocodone Bitart 1 tab Q4HP PRN PO 03/20/25 12:15 03/30/25 00:45 1 TAB Ondansetron HCl 4 mg Q4HP PRN IV 03/20/25 12:15 03/26/25 08:18 4 MG Docusate Sodium 100 mg BIDPRN PRN PO 03/20/25 12:15 Acetaminophen 650 mg Q6HP PRN PO 03/20/25 12:15 03/28/25 10:59 650 MG Nitroglycerin 0.4 mg Q5MINP PRN SL 03/20/25 12:15 03/25/25 09:26 0.4 MG Morphine Sulfate 2 mg Q30M PRN IV 03/20/25 12:15 03/25/25 09:43 2 MG Allopurinol 100 mg DAILY PO 03/21/25 10:00 04/07/25 09:34 100 MG Apixaban 2.5 mg BID PO 03/20/25 22:00 04/07/25 09:35 2.5 MG Cilostazol 100 mg BID PO 03/20/25 22:00 04/07/25 09:34 100 MG Patient Own Medication 1 tab DAILY PO 03/21/25 10:00 UNV Patient Own Medication 1 tab DAILY PO 03/21/25 10:00 UNV Gabapentin 300 mg DAILY PO 03/21/25 10:00 04/07/25 09:34 300 MG Levothyroxine Sodium 112 mcg DAILY PO 03/21/25 10:00 04/07/25 09:34 112 MCG Levothyroxine Sodium 25 mcg DAILY PO 03/21/25 10:00 04/07/25 09:34 25 MCG Diphenhydramine HCl 50 mg [id number] PRN PO 03/21/25 16:45 03/21/25 22:57 50 MG Patient Own Medication 1 tab BID PO 03/21/25 22:00 04/07/25 09:35 1 TAB Throat Lozenges 1 liv Q2HP PRN MT 03/23/25 04:00 03/23/25 14:52 1 LIV Pantoprazole Sodium 40 mg DAILY IV 03/26/25 10:00 04/07/25 09:32 40 MG Magnesium Oxide 400 mg DAILY PO 03/27/25 10:00 04/07/25 09:33 400 MG Ertapenem 0.5 gm DAILY IM 03/27/25 11:15 Cancel Diagnostic Test (Pha) 1 strip Q6HR 03/27/25 18:00 04/07/25 11:23 1 STRIP Insulin Human Regular FOLLOW SLIDING SCALE Q6HR SC 03/27/25 18:00 04/03/25 06:18 2 UNITS Dextrose 50 ml UD IV 03/27/25 12:30 Norepinephrine Bitartrate 250 ml @ 0.938 mls/ hr Q24H IV 03/28/25 09:15 04/06/25 10:08 1.875 MLS/HR Amiodarone HCl 200 mg Q12HR PO 03/29/25 10:00 04/07/25 09:34 200 MG Nystatin 1 applic DAILY TOP 04/01/25 10:00 04/07/25 11:09 1 APPLIC Multivit/Ca Carb/ B Cmplx/FA/Prenat 1 tab DAILY PO 04/03/25 10:00 04/07/25 09:35 1 TAB Ferrous Sulfate 325 mg BIDWM PO 04/03/25 18:00 04/07/25 08:29 325 MG Bumetanide 2 mg BID IV 04/03/25 22:00 04/06/25 22:31 2 MG Midodrine 10 mg TID@0600,1200,1800 PO 04/04/25 12:00 04/07/25 05:41 10 MG Albuterol 2.5 mg Q4HR NEB 04/06/25 14:00 04/07/25 09:48 2.5 MG Ipratropium [place] 0.5 mg Q4HR NEB 04/06/25 14:00 04/07/25 09:48 0.5 MG Ertapenem 1 gm/ Sodium Chloride 50 ml @ 100 mls/hr DAILY IV 04/08/25 10:00 laboratory and microbiology Laboratory Tests 04/07/25 03:27 Test 04/07/25 03:27 Range/Units Serum Glucose 88 74-106 mg/dL Assessment/Plan Impression SCOT hypoxemia COPD pneumonia left hydronephrosis septic shock pt seen and examined in the ICU Events Low oxygen requirements On 3 liters nasal cannula Intermittently on Levophed for hemodynamic support Recently started on HD S/p percutaneous drain placement for peritoneal abscess Labs and imaging studies reviewed management Supplemental oxygen keep sats above 90% bronchodilators for copd levophed as needed keep MAP above 65 mm Hg HD per nephrology continue antibiotics f/u cultures gi and dvt proph okay to downgrade to FRANCHESCA from pulmonary standpoint crit care time 35 min Dietary Evaluation Review Comments: Renal Specific 60g CCHO-60 Cardiac Diet d/t SCOT over CKD and low GFR Expected Outcomes/Goals: less uremic symptoms, better weight management Plan discussed with: Patient CC Plasma Assessment Blood Product Administration S: [id number] MD Apr 07, 2025 12:53
[2025-04-07] MEDS: ERTAPENEM SOD INJ 1 GM in SODIUM CHL 0.9% 50 ML IV ONE (13:45)
--- NOTE | 2025-04-07 15:28 | DVHPN2 ---
Progress Note - Dictate Date Seen: Apr 07, 2025 Has the PT tested + for MRSA If YES, has PT been informed?: No Medical Necessity Reason Pt with a Central, PICC or Fol: Yes The following are medically ne: Tijerina Catheter Reason for tijerina catheter: Strict I&O Subjective Patient endorses shortness of breath. Per RN at bedside urinary output has diminished to 150 mL over the last 24 hours despite Bumex 2 mg twice a day vital signs Vital Sign Date Time Temp Pulse Resp B/P (MAP) Pulse Ox O2 Delivery O2 Flow Rate FiO2 04/07/25 14:44 100 20 100 04/07/25 14:36 Nasal Cannula* 3 32 04/07/25 13:53 106/53 04/07/25 12:00 98.0 98.0 Total Intake and Output 04/06/25 04/06/25 04/07/25 15:00 23:00 07:00 Intake Total 357.500 ml 600 ml 415.002 ml Output Total 260 ml 151 ml Balance 357.500 ml 340 ml 264.002 ml medications Current Medications Medications Dose Ordered Sig/Sravan Route Start Time Stop Time Status Last Admin Dose Admin Acetaminophen/ Hydrocodone Bitart 1 tab Q4HP PRN PO 03/20/25 12:15 03/30/25 00:45 1 TAB Ondansetron HCl 4 mg Q4HP PRN IV 03/20/25 12:15 03/26/25 08:18 4 MG Docusate Sodium 100 mg BIDPRN PRN PO 03/20/25 12:15 Acetaminophen 650 mg Q6HP PRN PO 03/20/25 12:15 03/28/25 10:59 650 MG Nitroglycerin 0.4 mg Q5MINP PRN SL 03/20/25 12:15 03/25/25 09:26 0.4 MG Morphine Sulfate 2 mg Q30M PRN IV 03/20/25 12:15 03/25/25 09:43 2 MG Allopurinol 100 mg DAILY PO 03/21/25 10:00 04/07/25 09:34 100 MG Apixaban 2.5 mg BID PO 03/20/25 22:00 04/07/25 09:35 2.5 MG Cilostazol 100 mg BID PO 03/20/25 22:00 04/07/25 09:34 100 MG Patient Own Medication 1 tab DAILY PO 03/21/25 10:00 UNV Patient Own Medication 1 tab DAILY PO 03/21/25 10:00 UNV Gabapentin 300 mg DAILY PO 03/21/25 10:00 04/07/25 09:34 300 MG Levothyroxine Sodium 112 mcg DAILY PO 03/21/25 10:00 04/07/25 09:34 112 MCG Levothyroxine Sodium 25 mcg DAILY PO 03/21/25 10:00 04/07/25 09:34 25 MCG Diphenhydramine HCl 50 mg [id number] PRN PO 03/21/25 16:45 03/21/25 22:57 50 MG Patient Own Medication 1 tab BID PO 03/21/25 22:00 04/07/25 09:35 1 TAB Throat Lozenges 1 liv Q2HP PRN MT 03/23/25 04:00 03/23/25 14:52 1 LIV Pantoprazole Sodium 40 mg DAILY IV 03/26/25 10:00 04/07/25 09:32 40 MG Magnesium Oxide 400 mg DAILY PO 03/27/25 10:00 04/07/25 09:33 400 MG Ertapenem 0.5 gm DAILY IM 03/27/25 11:15 Cancel Diagnostic Test (Pha) 1 strip Q6HR 03/27/25 18:00 04/07/25 11:23 1 STRIP Insulin Human Regular FOLLOW SLIDING SCALE Q6HR SC 03/27/25 18:00 04/03/25 06:18 2 UNITS Dextrose 50 ml UD IV 03/27/25 12:30 Norepinephrine Bitartrate 250 ml @ 0.938 mls/ hr Q24H IV 03/28/25 09:15 04/06/25 10:08 1.875 MLS/HR Amiodarone HCl 200 mg Q12HR PO 03/29/25 10:00 04/07/25 09:34 200 MG Nystatin 1 applic DAILY TOP 04/01/25 10:00 04/07/25 11:09 1 APPLIC Multivit/Ca Carb/ B Cmplx/FA/Prenat 1 tab DAILY PO 04/03/25 10:00 04/07/25 09:35 1 TAB Ferrous Sulfate 325 mg BIDWM PO 04/03/25 18:00 04/07/25 08:29 325 MG Bumetanide 2 mg BID IV 04/03/25 22:00 Hold 04/07/25 13:53 2 MG Midodrine 10 mg TID@0600,1200,1800 PO 04/04/25 12:00 04/07/25 13:46 10 MG Albuterol 2.5 mg Q4HR NEB 04/06/25 14:00 04/07/25 14:36 2.5 MG Ipratropium [place] 0.5 mg Q4HR NEB 04/06/25 14:00 04/07/25 14:36 0.5 MG Ertapenem 1 gm/ Sodium Chloride 50 ml @ 100 mls/hr DAILY IV 04/08/25 10:00 Bumetanide 25 mg/ Miscellaneous 100 ml @ 4 mls/hr Q24H IV 04/07/25 14:30 objective HEENT: No evidence of JVD, no oral ulcers. Pulmonary: Crackles on auscultation bilaterally Cardiovascular S1-S2, no S3 or S4 Abdomen: Bowel sounds positive, soft no rebound tenderness Skin: No rash Neurological: Alert, oriented, no focal weakness Extremities: 2+ lower extremity edema pitting Right upper chest CVC in place. laboratory and microbiology Laboratory Tests 04/07/25 03:27 Test 04/07/25 03:27 Range/Units Serum Glucose 88 74-106 mg/dL Assessment/Plan Assessment: Hemodialysis dependent Acute kidney injury superimposed on CKD 4 Patient has tenuous renal function along with chronic fluid overload very difficult to manage historically because of the need of high doses of loop diuretics along with thiazide diuretic to manage hypovolemia with ensuing worsening of the renal function. Sepsis with a urine culture growing E coli and Klebsiella both of which are ESBL . Wound culture with E coli ESBL Septic shock Currently off Levophed Pelvic abscess Status post drainage of left pelvic abscess Left hydronephrosis which has a resolved Acute on chronic diastolic heart failure Anemia status post transfusion of PRBC Pulmonary hypertension Atrial fibrillation Bed-bound patient Chronic alcoholism in remission, last alcoholic beverage three months ago. Assessment/Plan Hemodialysis with a was completed yesterday Bumex 3 mg IV then Bumex drip, metolazone p.o. x1 to optimize diuresis in view of significant lower extremity edema along with dyspnea fluid overload. general manager to arrange chair time, we will monitor for renal recovery within the next 90 days Labs in a.m. Currently she is off the pressors, prn Fluid restriction less than 1 L per day, renal diet Midodrine 3 times a day and during dialysis Would want to continue with the medical management for now. Continue TPN Overall long-term prognosis is guarded Dietary Evaluation Review Comments: Renal Specific 60g CCHO-60 Cardiac Diet d/t SCOT over CKD and low GFR Expected Outcomes/Goals: less uremic symptoms, better weight management Plan discussed with: Patient CC Plasma Assessment Blood Product Administration S: [id number] [address] MD Apr 07, 2025 15:28
[2025-04-07] MEDS: ALBUMIN 25% 100 ML IV ONE (15:58)
[2025-04-07] MEDS: BUMETANIDE 2.5mg/10ml (0.25 mg/ml) INJ IV ONE (16:03)
[2025-04-07] MEDS: BUMETANIDE INJECTION 25 MG in GIVE UN-DILUTED 0 ML IV SCH (16:26)
[2025-04-07] MEDS ORDERED: BUMETANIDE 2.5mg/10ml (0.25 mg/ml) INJ IV SCH (18:00)
[2025-04-07 19:25] LABS: Chloride 101 mmol/L (98-107); Potassium 4.0 mmol/L (3.5-5.1); Sodium 140 mmol/L (136-145)
[2025-04-07 19:26] LABS: Anion Gap 10 (5-15); Calcium 9.7 mg/dL (8.7-10.4); Carbon Dioxide 29 mmol/L (20-31)
[2025-04-07 19:31] LABS: BUN/Creatinine Ratio 19.1 (10.0-20.0); Glucose 92 mg/dL (74-106)
[2025-04-07 19:34] LABS: Blood Urea Nitrogen 45 mg/dL (9-23)
[2025-04-07] MEDS: EPOETIN ALFA-EPBX 10,000 UNIT/1ML VIAL SC ONE (19:39)
--- NOTE | 2025-04-07 23:07 | DVHPN2 ---
Progress Note - Dictate Date Seen: Apr 07, 2025 Has the PT tested + for MRSA If YES, has PT been informed?: No Medical Necessity Reason Pt with a Central, PICC or Fol: Yes The following are medically ne: Tijerina Catheter Reason for tijerina catheter: Strict I&O Subjective No new complaints ; abdominal pain improved Eating full liquid diet Patient is resting comfortably ; mild shortness of breath ALEKSANDAR drain output is minimal bloody less than 5 mL vital signs Vital Sign Date Time Temp Pulse Resp B/P (MAP) Pulse Ox O2 Delivery O2 Flow Rate FiO2 04/07/25 22:45 105 20 90/44 (59) 93 04/07/25 22:18 Nasal Cannula* 3 32 04/07/25 20:00 98.2 98.2 Total Intake and Output 04/06/25 04/06/25 04/07/25 15:00 23:00 07:00 Intake Total 357.500 ml 600 ml 415.002 ml Output Total 260 ml 151 ml Balance 357.500 ml 340 ml 264.002 ml medications Current Medications Medications Dose Ordered Sig/Sravan Route Start Time Stop Time Status Last Admin Dose Admin Acetaminophen/ Hydrocodone Bitart 1 tab Q4HP PRN PO 03/20/25 12:15 03/30/25 00:45 1 TAB Ondansetron HCl 4 mg Q4HP PRN IV 03/20/25 12:15 03/26/25 08:18 4 MG Docusate Sodium 100 mg BIDPRN PRN PO 03/20/25 12:15 Acetaminophen 650 mg Q6HP PRN PO 03/20/25 12:15 03/28/25 10:59 650 MG Nitroglycerin 0.4 mg Q5MINP PRN SL 03/20/25 12:15 03/25/25 09:26 0.4 MG Morphine Sulfate 2 mg Q30M PRN IV 03/20/25 12:15 03/25/25 09:43 2 MG Allopurinol 100 mg DAILY PO 03/21/25 10:00 04/07/25 09:34 100 MG Apixaban 2.5 mg BID PO 03/20/25 22:00 04/07/25 21:42 2.5 MG Cilostazol 100 mg BID PO 03/20/25 22:00 04/07/25 21:42 100 MG Patient Own Medication 1 tab DAILY PO 03/21/25 10:00 UNV Patient Own Medication 1 tab DAILY PO 03/21/25 10:00 UNV Gabapentin 300 mg DAILY PO 03/21/25 10:00 04/07/25 09:34 300 MG Levothyroxine Sodium 112 mcg DAILY PO 03/21/25 10:00 04/07/25 09:34 112 MCG Levothyroxine Sodium 25 mcg DAILY PO 03/21/25 10:00 04/07/25 09:34 25 MCG Diphenhydramine HCl 50 mg [id number] PRN PO 03/21/25 16:45 03/21/25 22:57 50 MG Patient Own Medication 1 tab BID PO 03/21/25 22:00 04/07/25 21:43 1 TAB Throat Lozenges 1 liv Q2HP PRN MT 03/23/25 04:00 03/23/25 14:52 1 LIV Pantoprazole Sodium 40 mg DAILY IV 03/26/25 10:00 04/07/25 09:32 40 MG Magnesium Oxide 400 mg DAILY PO 03/27/25 10:00 04/07/25 09:33 400 MG Ertapenem 0.5 gm DAILY IM 03/27/25 11:15 Cancel Diagnostic Test (Pha) 1 strip Q6HR 03/27/25 18:00 04/07/25 18:37 1 STRIP Insulin Human Regular FOLLOW SLIDING SCALE Q6HR SC 03/27/25 18:00 04/03/25 06:18 2 UNITS Dextrose 50 ml UD IV 03/27/25 12:30 Norepinephrine Bitartrate 250 ml @ 0.938 mls/ hr Q24H IV 03/28/25 09:15 04/06/25 10:08 1.875 MLS/HR Amiodarone HCl 200 mg Q12HR PO 03/29/25 10:00 04/07/25 21:42 200 MG Nystatin 1 applic DAILY TOP 04/01/25 10:00 04/07/25 11:09 1 APPLIC Multivit/Ca Carb/ B Cmplx/FA/Prenat 1 tab DAILY PO 04/03/25 10:00 04/07/25 09:35 1 TAB Ferrous Sulfate 325 mg BIDWM PO 04/03/25 18:00 04/07/25 18:32 325 MG Midodrine 10 mg TID@0600,1200,1800 PO 04/04/25 12:00 04/07/25 18:32 10 MG Albuterol 2.5 mg Q4HR NEB 04/06/25 14:00 04/07/25 22:17 2.5 MG Ipratropium [place] 0.5 mg Q4HR NEB 04/06/25 14:00 04/07/25 22:17 0.5 MG Ertapenem 1 gm/ Sodium Chloride 50 ml @ 100 mls/hr DAILY IV 04/08/25 10:00 Bumetanide 25 mg/ Miscellaneous 100 ml @ 4 mls/hr Q24H IV 04/07/25 14:30 04/07/25 16:26 4 MLS/HR objective General examination- awake, alert HEENT- PEERLA, morbidly obese Cardiovascular- S1-S2 audible, rate and rhythm regular, no murmur Respiratory- CTAB, no wheeze or rhonchi Gastrointestinal-lower abdominal wall tenderness+, bowel sound+. Nondistended Musculoskeletal-no acute joint swelling or tenderness or redness Lower extremity- no leg edema Neurological- cranial nerves intact, no acute dysarthria or dysphagia laboratory and microbiology Laboratory Tests 04/07/25 19:00 04/07/25 03:27 Test 04/07/25 19:00 Range/Units Serum Glucose 92 74-106 mg/dL Problems(with codes): (1) Atrial fibrillation with RVR (2) COPD with acute exacerbation (3) Failure to thrive (4) Shortness of breath (5) E. coli UTI (urinary tract infection) (6) Generalized weakness (7) Pelvic abscess in female Prognosis Plan Because of increasing size of abscess consider keeping the patient NPO on IV TPN and IV antibiotics Flush the ALEKSANDAR drain gently to ensure that it is not clogged and monitor for drainage Supportive care, prognosis remains guarded Because of her morbid obesity patient is not a good surgical candidate and may end up with a colostomy Dietary Evaluation Review Comments: Renal Specific 60g CCHO-60 Cardiac Diet d/t SCOT over CKD and low GFR Expected Outcomes/Goals: less uremic symptoms, better weight management Plan discussed with: Other (None) CC Plasma Assessment Blood Product Administration S: [id number] MAGALYS AQUINO MD Apr 07, 2025 23:07
[2025-04-08] VITALS (118 sets, daily range): BP systolic 78–136; BP diastolic 33–71; PULSE 89–113; RESP 13–31; TEMP 97.8–98.9; O2SAT 85–100
[2025-04-08 04:38] LABS: Mean Corpuscular Volume 88.6 fL (80.0-100.0); Nucleated Red Blood Cells % 0.1 %
[2025-04-08 04:39] LABS: Hematocrit 23.1 % (36.0-46.0); Hemoglobin 7.6 g/dL (12.2-16.2); Mean Corpuscular Hemoglobin 29.2 pg (28.0-32.0)
[2025-04-08 04:56] LABS: Alanine Aminotransferase 10 U/L (7-40); Albumin 3.5 g/dL (3.2-4.8); Alkaline Phosphatase 97 U/L (46-116); Anion Gap 10 (5-15); BUN/Creatinine Ratio 18.1 (10.0-20.0); Calcium 10.0 mg/dL (8.7-10.4); Carbon Dioxide 29 mmol/L (20-31); Chloride 100 mmol/L (98-107); Glucose 93 mg/dL (74-106); Magnesium 2.1 mg/dL (1.6-2.6); Potassium 3.9 mmol/L (3.5-5.1); Sodium 139 mmol/L (136-145); Total Protein 6.2 g/dL (5.7-8.2)
[2025-04-08 04:59] LABS: Bilirubin, Total 1.5 mg/dL (0.2-1.0); Blood Urea Nitrogen 45 mg/dL (9-23)
[2025-04-08] MEDS: SODIUM CHL 0.9% 1000 ML BAG XX ONE (07:00)
--- NOTE | 2025-04-08 09:18 | DVHPN2 ---
Subjective Denies any symptoms at this time Reviewed: Care Plan, H&P, Labs, Medications, Previous Orders, Radiology Changes from previous H/P or p: No Changes General: Per HPI Eyes: No Pain, No Vision change, No Conjunctivae inflammation, No Eyelid inflammation, No Other, No Redness ENT: No Ear pain, No Ear discharge, No Nose pain, No Nose discharge, No Nose congestion, No Mouth pain, No Mouth swelling, No Throat pain, No Throat swelling, No Other Cardiovascular: No Chest Pain, No Palpitations, No Orthopnea, No Paroxysmal Noc. Dyspnea, No Edema, No Lt Headedness, No Other Respiratory: No Cough, No Dry, No Shortness of breath, No SOB with excertion, No Wheezing, No Hemoptysis, No Pleuritic Pain, No Sputum, No Other Gastrointestinal: Nausea, Vomiting, Abdominal Pain Genitourinary: No Dysuria, No Frequency, No Incontinence, No Hematuria, No Retention, No Other Musculoskeletal: No other, No neck pain, No shoulder pain, No arm pain, No back pain, No hand pain, No leg pain, No foot pain Skin: No Rash, No Lesions, No Jaundice, No Bruising, No Other Objective Vitals Vital Signs Date Time Temp Pulse Resp B/P (MAP) Pulse Ox O2 Delivery O2 Flow Rate FiO2 04/08/25 08:00 20 94 Nasal Cannula* 3 32 04/08/25 08:00 109 04/08/25 05:45 98.9 92/37 (55) 98.9 Intake/Output Intake and Output 04/08/25 07:00 Intake Total 1044.130 ml Output Total 197 ml Balance 847.130 ml Intake Oral 850 ml IV Total 194.130 ml Output Urine Total 135 ml Stool Total 2 ml Other 60 ml General Appearance: Alert, Oriented X3, Cooperative, Other HEENT: Atraumatic, PERRLA Cardiovascular: Normal S1, Normal S2, Other Abdomen: Normal bowel sounds, Other Extremities: No edema, Normal pulses Neuro: Sensation intact, Cranial nerves 3-12 NL Skin: Dry, Intact Psych/Mental Status: Mental status NL, Mood NL Medications Current Medications Medications Dose Ordered Sig/Sravan Route Start Time Stop Time Status Last Admin Dose Admin Acetaminophen/ Hydrocodone Bitart 1 tab Q4HP PRN PO 03/20/25 12:15 03/30/25 00:45 1 TAB Ondansetron HCl 4 mg Q4HP PRN IV 03/20/25 12:15 03/26/25 08:18 4 MG Docusate Sodium 100 mg BIDPRN PRN PO 03/20/25 12:15 Acetaminophen 650 mg Q6HP PRN PO 03/20/25 12:15 03/28/25 10:59 650 MG Nitroglycerin 0.4 mg Q5MINP PRN SL 03/20/25 12:15 03/25/25 09:26 0.4 MG Morphine Sulfate 2 mg Q30M PRN IV 03/20/25 12:15 03/25/25 09:43 2 MG Allopurinol 100 mg DAILY PO 03/21/25 10:00 04/07/25 09:34 100 MG Apixaban 2.5 mg BID PO 03/20/25 22:00 04/07/25 21:42 2.5 MG Cilostazol 100 mg BID PO 03/20/25 22:00 04/07/25 21:42 100 MG Patient Own Medication 1 tab DAILY PO 03/21/25 10:00 UNV Patient Own Medication 1 tab DAILY PO 03/21/25 10:00 UNV Gabapentin 300 mg DAILY PO 03/21/25 10:00 04/07/25 09:34 300 MG Levothyroxine Sodium 112 mcg DAILY PO 03/21/25 10:00 04/07/25 09:34 112 MCG Levothyroxine Sodium 25 mcg DAILY PO 03/21/25 10:00 04/07/25 09:34 25 MCG Diphenhydramine HCl 50 mg [id number] PRN PO 03/21/25 16:45 03/21/25 22:57 50 MG Patient Own Medication 1 tab BID PO 03/21/25 22:00 04/07/25 21:43 1 TAB Throat Lozenges 1 liv Q2HP PRN MT 03/23/25 04:00 03/23/25 14:52 1 LIV Pantoprazole Sodium 40 mg DAILY IV 03/26/25 10:00 04/07/25 09:32 40 MG Magnesium Oxide 400 mg DAILY PO 03/27/25 10:00 04/07/25 09:33 400 MG Ertapenem 0.5 gm DAILY IM 03/27/25 11:15 Cancel Diagnostic Test (Pha) 1 strip Q6HR 03/27/25 18:00 04/08/25 05:50 1 STRIP Insulin Human Regular FOLLOW SLIDING SCALE Q6HR SC 03/27/25 18:00 04/03/25 06:18 2 UNITS Dextrose 50 ml UD IV 03/27/25 12:30 Norepinephrine Bitartrate 250 ml @ 0.938 mls/ hr Q24H IV 03/28/25 09:15 04/06/25 10:08 1.875 MLS/HR Amiodarone HCl 200 mg Q12HR PO 03/29/25 10:00 04/07/25 21:42 200 MG Nystatin 1 applic DAILY TOP 04/01/25 10:00 04/07/25 11:09 1 APPLIC Multivit/Ca Carb/ B Cmplx/FA/Prenat 1 tab DAILY PO 04/03/25 10:00 04/07/25 09:35 1 TAB Ferrous Sulfate 325 mg BIDWM PO 04/03/25 18:00 04/08/25 08:18 325 MG Midodrine 10 mg TID@0600,1200,1800 PO 04/04/25 12:00 04/08/25 05:43 10 MG Albuterol 2.5 mg Q4HR NEB 04/06/25 14:00 04/08/25 06:07 2.5 MG Ipratropium [place] 0.5 mg Q4HR NEB 04/06/25 14:00 04/08/25 06:07 0.5 MG Ertapenem 1 gm/ Sodium Chloride 50 ml @ 100 mls/hr DAILY IV 04/08/25 10:00 Laboratory Results Laboratory Tests 04/08/25 04:20 Chemistry Test 04/07/25 19:00 04/08/25 04:20 Calcium Level 9.7 mg/dL (8.7-10.4) 10.0 mg/dL (8.7-10.4) Albumin 3.5 g/dL (3.2-4.8) Magnesium Level 2.1 mg/dL (1.6-2.6) Total Protein 6.2 g/dL (5.7-8.2) LFT Test 04/08/25 04:20 Alanine Aminotransferase (ALT) 10 U/L (7-40) Alkaline Phosphatase 97 U/L (46-116) Aspartate Amino Transferase (AST) 12 U/L (13-40) L Total Bilirubin 1.5 mg/dL (0.2-1.0) H Urinalysis Test 03/20/25 09:34 Urine Color Colorless (Yellow) Urine Clarity Turbid (Clear) H Urine pH 5.0 (5.0-9.0) Urine Specific [place] 1.015 (1.001-1.035) Urine Protein Negative (Negative) Urine Ketones Negative (Negative) Urine Blood Negative /uL (Negative) Urine Nitrite Negative (Negative) Urine Bilirubin Negative (Negative) Urine Urobilinogen Normal mg/dL (Negative) Urine Leukocyte Esterase 3+ /uL (Negative) Urine RBC 1 /hpf (0 - 4) Urine Microscopic WBC 255 /HPF (0-5) H Urine Squamous Epithelial Cells Few /hpf (<5) Urine Bacteria Few /hpf (None Seen) H Urine Glucose Normal mg/dL (Normal) Microbiology Microbiology Date/Time Source Procedure Growth Status 03/26/25 15:00 Aspirate Gram Stain - Final Complete 03/26/25 15:00 Body Fluid Culture - Final Escherichia coli - ESBL Enterobacter cloacae Proteus mirabilis Complete 03/23/25 04:30 Throat Nose/Throat Culture - Final Complete 03/21/25 18:00 Urine - Catheterized Urine Culture - Final Escherichia coli - ESBL Klebsiella pneumoniae - ESBL Complete 03/20/25 21:52 Nose MRSA Screen - Final Complete Labs and/or images reviewed: Labs reviewed by me, Image(s) reviewed by me Assessment/Plan Assessment/Plan Impression: -septic shock -diverticular abscess -AFib with RVR -morbid obesity -obstructive uropathy -CKD stage 4 -acute kidney injury, vasomotor nephropathy -acute on chronic systolic and diastolic heart failure -bed-bound status -complicated cystitis with ESBL in the urine. Plan: Events: Patient asymptomatic. Minimal drainage from abscess drain. Repeat CT scan shows mild increase in size of abscess as well as gas formation. Patient without fever, elevation of the white blood cell count. Continues to be on and off norepinephrine drip at low-dose. We will discuss case with specialists, involve Infectious Disease doctor. Given patient's high-risk for surgery, plans for Infectious Disease recommendations for long-term antibiotic course and transferred to long-term acute care facility. -continue midodrine -continue Invanz -full liquid diet -continue anticoagulation with Eliquis -repeat labs in a.m. Critical care time spent with patient discussing and formulating plan of care: 40 minutes. This does not include time spent performing procedures. This medical document was created using an electronic medical record system with [employer] dictation system. Although this document has been carefully reviewed, there may still be some phonetic and typographical errors. These areas are purely typographical due to imperfections of the software programs, and do not reflect any compromise in the patient's medical care. Plan discussed with: Patient, Other (RN) My Orders Orders - GONZALO ASKEW NP Procedure Category Date Status Time Ct Ab Pel Wo Con-No CT 04/07/25 Resulted Oral Or Iv 09:34 Ertapenem Sod Inj PHA 04/08/25 In Process (Invanz) 10:00 * Infectious Marty- CONS 04/08/25 Transmitted K Rafi 07:03 * Food Services Director CONS 04/08/25 Transmitted Consult Basic Metabolic Panel LAB 04/09/25 Verified 04:00 Complete Blood Count LAB 04/09/25 Verified 04:00 Date of Service: Apr 08, 2025 Billing Provider: GONZALO ASKEW NP Common Visit Codes: 79935-QFR/OBS DISCH DAY >30min GONZALO ASKEW NP Apr 08, 2025 09:17
[2025-04-08] MEDS ORDERED: ERTAPENEM SOD INJ 1 GM in SODIUM CHL 0.9% 50 ML IV SCH (10:00)
--- NOTE | 2025-04-08 12:48 | DVHPN2 ---
Progress Note - Dictate Date Seen: Apr 08, 2025 Has the PT tested + for MRSA If YES, has PT been informed?: No Medical Necessity Reason Pt with a Central, PICC or Fol: Yes The following are medically ne: Tijerina Catheter Reason for tijerina catheter: Strict I&O vital signs Vital Sign Date Time Temp Pulse Resp B/P (MAP) Pulse Ox O2 Delivery O2 Flow Rate FiO2 04/08/25 10:03 99 16 98 04/08/25 08:00 Nasal Cannula* 3 32 04/08/25 05:45 98.9 92/37 (55) 98.9 Total Intake and Output 04/07/25 04/07/25 04/08/25 15:00 23:00 07:00 Intake Total 52.813 ml 726.315 ml 265.002 ml Output Total 157 ml 40 ml Balance 52.813 ml 569.315 ml 225.002 ml medications Current Medications Medications Dose Ordered Sig/Sravan Route Start Time Stop Time Status Last Admin Dose Admin Acetaminophen/ Hydrocodone Bitart 1 tab Q4HP PRN PO 03/20/25 12:15 03/30/25 00:45 1 TAB Ondansetron HCl 4 mg Q4HP PRN IV 03/20/25 12:15 03/26/25 08:18 4 MG Docusate Sodium 100 mg BIDPRN PRN PO 03/20/25 12:15 Acetaminophen 650 mg Q6HP PRN PO 03/20/25 12:15 03/28/25 10:59 650 MG Nitroglycerin 0.4 mg Q5MINP PRN SL 03/20/25 12:15 03/25/25 09:26 0.4 MG Morphine Sulfate 2 mg Q30M PRN IV 03/20/25 12:15 03/25/25 09:43 2 MG Allopurinol 100 mg DAILY PO 03/21/25 10:00 04/08/25 10:18 100 MG Apixaban 2.5 mg BID PO 03/20/25 22:00 04/08/25 10:17 2.5 MG Cilostazol 100 mg BID PO 03/20/25 22:00 04/08/25 10:18 100 MG Patient Own Medication 1 tab DAILY PO 03/21/25 10:00 UNV Patient Own Medication 1 tab DAILY PO 03/21/25 10:00 UNV Gabapentin 300 mg DAILY PO 03/21/25 10:00 04/08/25 10:17 300 MG Levothyroxine Sodium 112 mcg DAILY PO 03/21/25 10:00 04/08/25 10:17 112 MCG Levothyroxine Sodium 25 mcg DAILY PO 03/21/25 10:00 04/08/25 10:17 25 MCG Diphenhydramine HCl 50 mg [id number] PRN PO 03/21/25 16:45 03/21/25 22:57 50 MG Patient Own Medication 1 tab BID PO 03/21/25 22:00 04/08/25 10:17 1 TAB Throat Lozenges 1 liv Q2HP PRN MT 03/23/25 04:00 03/23/25 14:52 1 LIV Pantoprazole Sodium 40 mg DAILY IV 03/26/25 10:00 04/08/25 10:17 40 MG Magnesium Oxide 400 mg DAILY PO 03/27/25 10:00 04/08/25 10:17 400 MG Ertapenem 0.5 gm DAILY IM 03/27/25 11:15 Cancel Diagnostic Test (Pha) 1 strip Q6HR 03/27/25 18:00 04/08/25 12:03 1 STRIP Insulin Human Regular FOLLOW SLIDING SCALE Q6HR SC 03/27/25 18:00 04/03/25 06:18 2 UNITS Dextrose 50 ml UD IV 03/27/25 12:30 Norepinephrine Bitartrate 250 ml @ 0.938 mls/ hr Q24H IV 03/28/25 09:15 04/06/25 10:08 1.875 MLS/HR Amiodarone HCl 200 mg Q12HR PO 03/29/25 10:00 04/08/25 10:17 200 MG Nystatin 1 applic DAILY TOP 04/01/25 10:00 04/08/25 10:18 1 APPLIC Multivit/Ca Carb/ B Cmplx/FA/Prenat 1 tab DAILY PO 04/03/25 10:00 04/08/25 10:17 1 TAB Ferrous Sulfate 325 mg BIDWM PO 04/03/25 18:00 04/08/25 08:18 325 MG Midodrine 10 mg TID@0600,1200,1800 PO 04/04/25 12:00 04/08/25 11:58 10 MG Albuterol 2.5 mg Q4HR NEB 04/06/25 14:00 04/08/25 09:54 2.5 MG Ipratropium [place] 0.5 mg Q4HR NEB 04/06/25 14:00 04/08/25 09:54 0.5 MG Ertapenem 1 gm/ Sodium Chloride 50 ml @ 100 mls/hr DAILY IV 04/09/25 12:00 laboratory and microbiology Laboratory Tests 04/08/25 04:20 Test 04/08/25 04:20 Range/Units Serum Glucose 93 74-106 mg/dL Assessment/Plan Impression SCOT hypoxemia COPD pneumonia left hydronephrosis septic shock pt seen and examined in the ICU Events Low oxygen requirements On 3 liters nasal cannula Intermittently on Levophed for hemodynamic support Appears swollen S/p percutaneous drain placement for peritoneal abscess Labs and imaging studies reviewed management Supplemental oxygen keep sats above 90% bronchodilators for copd levophed as needed keep MAP above 65 mm Hg HD per nephrology continue antibiotics f/u cultures gi and dvt proph okay to downgrade to FRANCHESCA from pulmonary standpoint crit care time 35 min Dietary Evaluation Review Comments: Renal Specific 60g CCHO-60 Cardiac Diet d/t SCOT over CKD and low GFR Expected Outcomes/Goals: less uremic symptoms, better weight management Plan discussed with: Patient CC Plasma Assessment Blood Product Administration S: [id number] MD Apr 08, 2025 12:48
[2025-04-08] MEDS: ERTAPENEM SOD INJ 1 GM in SODIUM CHL 0.9% 50 ML IV SCH (13:37)
--- NOTE | 2025-04-08 14:06 | DVHPN2 ---
Progress Note - Dictate Date Seen: Apr 08, 2025 Has the PT tested + for MRSA If YES, has PT been informed?: No Medical Necessity Reason Pt with a Central, PICC or Fol: Yes The following are medically ne: Tijerina Catheter Reason for tijerina catheter: Strict I&O vital signs Vital Sign Date Time Temp Pulse Resp B/P (MAP) Pulse Ox O2 Delivery O2 Flow Rate FiO2 04/08/25 10:03 99 16 98 04/08/25 08:00 Nasal Cannula* 3 32 04/08/25 05:45 98.9 92/37 (55) 98.9 Total Intake and Output 04/07/25 04/07/25 04/08/25 15:00 23:00 07:00 Intake Total 52.813 ml 726.315 ml 265.002 ml Output Total 157 ml 40 ml Balance 52.813 ml 569.315 ml 225.002 ml medications Current Medications Medications Dose Ordered Sig/Sravan Route Start Time Stop Time Status Last Admin Dose Admin Acetaminophen/ Hydrocodone Bitart 1 tab Q4HP PRN PO 03/20/25 12:15 03/30/25 00:45 1 TAB Ondansetron HCl 4 mg Q4HP PRN IV 03/20/25 12:15 03/26/25 08:18 4 MG Docusate Sodium 100 mg BIDPRN PRN PO 03/20/25 12:15 Acetaminophen 650 mg Q6HP PRN PO 03/20/25 12:15 03/28/25 10:59 650 MG Nitroglycerin 0.4 mg Q5MINP PRN SL 03/20/25 12:15 03/25/25 09:26 0.4 MG Morphine Sulfate 2 mg Q30M PRN IV 03/20/25 12:15 03/25/25 09:43 2 MG Allopurinol 100 mg DAILY PO 03/21/25 10:00 04/08/25 10:18 100 MG Apixaban 2.5 mg BID PO 03/20/25 22:00 04/08/25 10:17 2.5 MG Cilostazol 100 mg BID PO 03/20/25 22:00 04/08/25 10:18 100 MG Patient Own Medication 1 tab DAILY PO 03/21/25 10:00 UNV Patient Own Medication 1 tab DAILY PO 03/21/25 10:00 UNV Gabapentin 300 mg DAILY PO 03/21/25 10:00 04/08/25 10:17 300 MG Levothyroxine Sodium 112 mcg DAILY PO 03/21/25 10:00 04/08/25 10:17 112 MCG Levothyroxine Sodium 25 mcg DAILY PO 03/21/25 10:00 04/08/25 10:17 25 MCG Diphenhydramine HCl 50 mg [id number] PRN PO 03/21/25 16:45 03/21/25 22:57 50 MG Patient Own Medication 1 tab BID PO 03/21/25 22:00 04/08/25 10:17 1 TAB Throat Lozenges 1 liv Q2HP PRN MT 03/23/25 04:00 03/23/25 14:52 1 LIV Pantoprazole Sodium 40 mg DAILY IV 03/26/25 10:00 04/08/25 10:17 40 MG Magnesium Oxide 400 mg DAILY PO 03/27/25 10:00 04/08/25 10:17 400 MG Ertapenem 0.5 gm DAILY IM 03/27/25 11:15 Cancel Diagnostic Test (Pha) 1 strip Q6HR 03/27/25 18:00 04/08/25 12:03 1 STRIP Insulin Human Regular FOLLOW SLIDING SCALE Q6HR SC 03/27/25 18:00 04/03/25 06:18 2 UNITS Dextrose 50 ml UD IV 03/27/25 12:30 Norepinephrine Bitartrate 250 ml @ 0.938 mls/ hr Q24H IV 03/28/25 09:15 04/06/25 10:08 1.875 MLS/HR Amiodarone HCl 200 mg Q12HR PO 03/29/25 10:00 04/08/25 10:17 200 MG Nystatin 1 applic DAILY TOP 04/01/25 10:00 04/08/25 10:18 1 APPLIC Multivit/Ca Carb/ B Cmplx/FA/Prenat 1 tab DAILY PO 04/03/25 10:00 04/08/25 10:17 1 TAB Ferrous Sulfate 325 mg BIDWM PO 04/03/25 18:00 04/08/25 08:18 325 MG Midodrine 10 mg TID@0600,1200,1800 PO 04/04/25 12:00 04/08/25 11:58 10 MG Albuterol 2.5 mg Q4HR NEB 04/06/25 14:00 04/08/25 09:54 2.5 MG Ipratropium [place] 0.5 mg Q4HR NEB 04/06/25 14:00 04/08/25 09:54 0.5 MG Ertapenem 1 gm/ Sodium Chloride 50 ml @ 100 mls/hr DAILY IV 04/08/25 14:00 04/08/25 13:37 100 MLS/HR laboratory and microbiology Laboratory Tests 04/08/25 04:20 Test 04/08/25 04:20 Range/Units Serum Glucose 93 74-106 mg/dL Assessment/Plan Patient is a 74-year-old female who was admitted on March 20, 2025 for abdominal pain/nausea/vomiting. She is admitted to ICU for septic shock. On March 24, 2025, cardiology was involved for cardiac aspects of care. Patient is known to our practice from before and previous admissions. She is known to have significant alcohol abuse (drinks whiskey every day) and also history of pulmonary hypertension/type 2 pulmonary hypertension, diastolic heart failure. Does have poor functional capacity and is bed-bound. Is significantly morbidly obese. Does have baseline history of atrial fibrillation and is on Eliquis as outpatient. Is found to have septic shock and possible pelvic abscess. Is seen by surgery/Urology/pulmonary/GI. Denies chest pains. Denies palpitations. Is noncompliant with medication and followups. While being managed in ICU was found to have atrial fibrillation with RVR. She mentions that she does go to [facility]. She has had multiple surgeries in the bilateral feet. She also has history of COPD/asthma with chronic respiratory failure (on home oxygen). Morbidly obese. Not in acute distress. No JVD. Mucosa is dry. Mucosa is pink. No JVD. No carotid bruit. Not using accessory muscles of breathing. Scattered rhonchi in the lungs is heard. Cardiac: Irregular, no thrill. Abdomen is obese and soft. There is no gross hepatomegaly, but it is presence can not be ruled out (body habitus, morbidly obese). There is 3+ edema in bilateral lower extremities which extends to abdominal wall. Past medical history includes morbid obesity, atrial fibrillation (on Eliquis as outpatient), COPD/asthma with chronic respiratory failure on home oxygen, morbid obesity, hypertension, hyperlipidemia, chronic lymphedema, Diastolic heart failure with type 2 pulmonary hypertension, rheumatoid arthritis, osteoarthritis, peripheral vascular disease, CKD (stage IV), anemia, alcohol abuse, neuropathy, gout, old history of right and left foot fracture and their management, status post right knee replacement, status post , bed-bound at baseline and functional quadriplegia. Patient drinks whiskey daily. Goes to Nephrology regularly. Reportedly, there has been some concern about going to have fistula creation on preparation for dialysis? Echocardiogram of January 03 2024 (performed in [facility]) revealed ejection fraction of 60%, mild biatrial enlargement, mild MR/TR and right ventricular systolic pressure of 31 mm Hg. Echocardiogram of (performed in [facility]) revealed: EF of 50 to 55%, Dilated right ventricle with normal systolic function. Severe biatrial enlargement. Mild AI, mild to moderate MR, moderate TR and RVSP of 51 mmHg. Ascending Aorta was 3.7 cm. Echocardiogram of November 09, 2024 revealed ejection fraction of 72%, mild right ventricular enlargement, moderate biatrial enlargement, mild to moderate tricuspid regurgitation, mild mitral regurgitation, right ventricular systolic pressure 54 mm Hg Echocardiogram of February 23, 2025 revealed ejection fraction of around 50%, mild concentric left ventricular hypertrophy, right ventricular enlargement with preserved systolic function. Biatrial enlargement, mild aortic insufficiency, [id number] mitral regurgitation and tricuspid regurgitation. IVC was significantly dilated. Right ventricular systolic pressure of of 55 mm Hg Hemoglobin: 6.7 - 8.6 - 8.1 - 7.6 - 7.9 - 7.7 - 7.8 - 7.8 - 7.6 - 7.5 - 7.1 - 7.0 - 8.5 - 8.2 - 7.6 - 7.7 - 7.5 - 7.1 - 7.0 - 6.8 - 7.9 - 7.6 Creatinine: 3.29 - 2.63 - 2.77 - 2.59 - 2.13 - 1.98 - 1.98 - 2.47- 2.98 - 3.36 - 3.56 - 3.83 - 4.12 - 4.27 - 4.67 - 4.54 - 2.92 - 2.91 - 2.98 - 2.06 - 2.36 - 2.49 Potassium: 3.9 - 3.4 - 3.8 - 3.3 - 3.4 - 3.9 - 3.5 - 3.5 - 3.3 - 3.4 - 3.7 - 3.8 - 4.0 - 4.3 - 4.0 - 3.6 - 3.3 - 3.5 - 3.9 - 3.9 - 4.0 - 3.9 Troponin (high sensitive): 32 - 31 - 34 TSH: 0.17 - 0.15 T3: 0.40 (low) T4: 5.7 Free T4: 1.27 Free T3: 1.55 (low) Urine and Aspirate culture: ESBL E-coli Chest x-ray revealed: IMPRESSION: Cardiomegaly. Repeat chest x-ray revealed: IMPRESSION: 1. Cardiomegaly with increased interstitial prominence suggestive of CHF exacerbation. 2. Pulmonary arterial hypertension. Repeat chest x-ray revealed: IMPRESSION: Cardiomegaly with mild pulmonary congestion. . Repeat chest x-ray revealed: IMPRESSION: Cardiomegaly with pulmonary congestion and edema. Superimposed pneumonia cannot be excluded. Repeat chest x-ray revealed: IMPRESSION: Worsening right lower lung airspace disease. Suggestion of small bilateral pleural effusions. Repeat chest xray revealed: IMPRESSION: No significant interval change Repeat chest xry revealed: IMPRESSION: 1. Right internal jugular hemodialysis catheter in place with tip at the cavoatrial junction. 2. Right internal jugular catheter in place unchanged 3. Findings suggest worsening airspace disease in probable congestive failure or volume overload. Abdominal ultrasound revealed: IMPRESSION: Small left hydronephrosis Renal scan revealed: IMPRESSION: Bilateral renal obstruction is present which is not response to Lasix administration suggesting that the kidney may be minimally functional. Abdomen and pelvic CT scan revealed: IMPRESSION: Moderate left hydroureteronephrosis. Suggestion of possible small abscess formation in the left hemipelvis associated with the sigmoid colon measuring 5.7 cm. This may represent site of ureteral obstruction. Clinical correlation advised. Examination is limited secondary to lack of intravenous and oral contrast administration. Abdomen and pelvis CT revealed: IMPRESSION: Sigmoid colonic diverticulitis with an adjacent 6 cm fluid collection with gas, could be an abscess. Probable fistula of the sigmoid to the fluid collection, and possibly with the urinary bladder, which is decompressed with a Tijerina. Possible trace left hydronephrosis with perinephric fat stranding. Repeat CT of abdomen and pelvis revealed: IMPRESSION: Small to moderate bilateral pleural effusions and associated compressive atelectasis / consolidation. Left lower quadrant pelvic drain in satisfactory position with significant interval decrease in size of abscess currently measuring 2.2 cm, previously 5.[address] guided abscess drainage: IMPRESSION: CT guided placement of 8 thai pigtail drain into a left hemipelvic abscess with 30 mL purulent fluid aspirated. PLAN: Routine tube care. Renal ultrasound revealed: IMPRESSION: Unremarkable renal ultrasound without hydronephrosis seen. EKG revealed atrial fibrillation with RVR Tele reveals atrial fibrillation with RVR Echocardiogram revealed: Left ventricle: Mild concentric left ventricular hypertrophy was seen. LVEF was around 50%. Right ventricle was mildly dilated with reduced systolic function. Both atria were dilated. Aortic valve was not well visualized. There was no aortic insufficiency/stenosis. There was mild mitral regurgitation. There was [id number] tricuspid regurgitation. Pulmonary valve was not well visualized. Right ventricular systolic pressure was assessed at 50 mm Hg. IVC was dilated. There was no pericardial effusion. Patient is a 74-year-old female with known history of diastolic heart failure with type 2 pulmonary hypertension who presented with abdominal pain. He is admitted to ICU with septic shock. Did have thrombocytopenia which slowly improved. Was significantly anemic and was transfused PRBC. There has been question about pelvic abscess and the patient is on antibiotics. Patient is being followed by surgery/Urology/pulmonary/GI. It is of note that the patient does have history of significant alcohol abuse (drinks good amount of whiskey daily) which could contribute to to some component of the clinical picture. Does have baseline history of pulmonary hypertension. Usually is on some amount of diuretic (Bumex) as outpatient. Clinically, the patient does have dry mucosa and maybe behind fluids at the time of evaluation. Does have baseline poor functional capacity. Does have history of recent sepsis. s/p CT guided abscess drainage. Seen by Nephrology. Diuretics are on hold. TFT are in favor of subclinical thyroid problem. Still with poor kidney function. Nephrology suggested hemodialysis, patient is hesitant. Significant anemia, status post PRBC transfusion Thrombocytopenia, resolved Septic shock SCOT on CKD Hydronephrosis Pelvic abscess Transaminitis Acute on chronic diastolic heart failure Pulmonary Hypertension, type 2 Alcohol abuse Morbid obesity Poor functional capacity Bed-bound at baseline Atrial fibrillation with RVR Hyperlipidemia Osteoarthritis Rheumatoid arthritis Peripheral vascular disease Abdominal abscess? s/p CT guided abscess drainage s/p PRBC transfusion Cardiac suggestion for management: Manage in ICU Follow-up electrolytes and kidney function tests and correct abnormalities Full anticoagulation (on Eliquis presently), long-term Septic shock, still on pressure support and IV antibiotics On Midodrine Started on HD On oral amiodarone Pressor support at this point to keep mean arterial pressure above 65 Evaluation and management of sepsis/infection as per primary team Evaluation and management of alcohol abuse/prevention of withdrawal as per primary team Evaluation and management of pelvic abscess/hydronephrosis as per primary team/surgery/Urology Further evaluation and management depends on the above and clinical course A total of 75 minutes was spent reviewing the patient record, examining the patient, making a diagnostic and therapeutic plan, discussing this plan with medical personnel, following up on diagnostic studies and following the patient for clinical stability excluding any and all procedures. At least 50% of this time was spent in direct, [id number] contact. Thank you for allowing me to participate in this patient's care. Further recommendations will depend on patient's clinical course. Please do not hesitate to contact me if you have any questions or concerns. This medical document was created using electronic medical record system with [employer] computerized dictation system. Although this document has been carefully reviewed, there may still be some phonetic and typographical errors. These areas are purely typographical due to the imperfection of the software programs, and do not reflect any compromise in the patient's medical care. Dietary Evaluation Review Comments: Renal Specific 60g CCHO-60 Cardiac Diet d/t SCOT over CKD and low GFR Expected Outcomes/Goals: less uremic symptoms, better weight management Plan discussed with: Patient, Other (nurse) CC Plasma Assessment Blood Product Administration S: [id number] [address] MD Apr 08, 2025 14:06
--- NOTE | 2025-04-08 15:28 | DVHPN2 ---
Progress Note - Dictate Date Seen: Apr 08, 2025 Has the PT tested + for MRSA If YES, has PT been informed?: No Medical Necessity Reason Pt with a Central, PICC or Fol: Yes The following are medically ne: Tijerina Catheter Reason for tijerina catheter: Strict I&O Subjective Patient continues to have shortness of breath. She has been off the Levophed. vital signs Vital Sign Date Time Temp Pulse Resp B/P (MAP) Pulse Ox O2 Delivery O2 Flow Rate FiO2 04/08/25 14:45 108 18 93/39 (57) 96 04/08/25 12:00 Nasal Cannula* 2 28 04/08/25 12:00 98.7 98.7 Total Intake and Output 04/07/25 04/07/25 04/08/25 15:00 23:00 07:00 Intake Total 52.813 ml 726.315 ml 265.002 ml Output Total 157 ml 40 ml Balance 52.813 ml 569.315 ml 225.002 ml medications Current Medications Medications Dose Ordered Sig/Sravan Route Start Time Stop Time Status Last Admin Dose Admin Acetaminophen/ Hydrocodone Bitart 1 tab Q4HP PRN PO 03/20/25 12:15 03/30/25 00:45 1 TAB Ondansetron HCl 4 mg Q4HP PRN IV 03/20/25 12:15 03/26/25 08:18 4 MG Docusate Sodium 100 mg BIDPRN PRN PO 03/20/25 12:15 Acetaminophen 650 mg Q6HP PRN PO 03/20/25 12:15 03/28/25 10:59 650 MG Nitroglycerin 0.4 mg Q5MINP PRN SL 03/20/25 12:15 03/25/25 09:26 0.4 MG Morphine Sulfate 2 mg Q30M PRN IV 03/20/25 12:15 03/25/25 09:43 2 MG Allopurinol 100 mg DAILY PO 03/21/25 10:00 04/08/25 10:18 100 MG Apixaban 2.5 mg BID PO 03/20/25 22:00 04/08/25 10:17 2.5 MG Cilostazol 100 mg BID PO 03/20/25 22:00 04/08/25 10:18 100 MG Patient Own Medication 1 tab DAILY PO 03/21/25 10:00 UNV Patient Own Medication 1 tab DAILY PO 03/21/25 10:00 UNV Gabapentin 300 mg DAILY PO 03/21/25 10:00 04/08/25 10:17 300 MG Levothyroxine Sodium 112 mcg DAILY PO 03/21/25 10:00 04/08/25 10:17 112 MCG Levothyroxine Sodium 25 mcg DAILY PO 03/21/25 10:00 04/08/25 10:17 25 MCG Diphenhydramine HCl 50 mg [id number] PRN PO 03/21/25 16:45 03/21/25 22:57 50 MG Patient Own Medication 1 tab BID PO 03/21/25 22:00 04/08/25 10:17 1 TAB Throat Lozenges 1 liv Q2HP PRN MT 03/23/25 04:00 03/23/25 14:52 1 LIV Pantoprazole Sodium 40 mg DAILY IV 03/26/25 10:00 04/08/25 10:17 40 MG Magnesium Oxide 400 mg DAILY PO 03/27/25 10:00 04/08/25 10:17 400 MG Ertapenem 0.5 gm DAILY IM 03/27/25 11:15 Cancel Diagnostic Test (Pha) 1 strip Q6HR 03/27/25 18:00 04/08/25 12:03 1 STRIP Insulin Human Regular FOLLOW SLIDING SCALE Q6HR SC 03/27/25 18:00 04/03/25 06:18 2 UNITS Dextrose 50 ml UD IV 03/27/25 12:30 Norepinephrine Bitartrate 250 ml @ 0.938 mls/ hr Q24H IV 03/28/25 09:15 04/06/25 10:08 1.875 MLS/HR Amiodarone HCl 200 mg Q12HR PO 03/29/25 10:00 04/08/25 10:17 200 MG Nystatin 1 applic DAILY TOP 04/01/25 10:00 04/08/25 10:18 1 APPLIC Multivit/Ca Carb/ B Cmplx/FA/Prenat 1 tab DAILY PO 04/03/25 10:00 04/08/25 10:17 1 TAB Ferrous Sulfate 325 mg BIDWM PO 04/03/25 18:00 04/08/25 08:18 325 MG Midodrine 10 mg TID@0600,1200,1800 PO 04/04/25 12:00 04/08/25 11:58 10 MG Albuterol 2.5 mg Q4HR NEB 04/06/25 14:00 04/08/25 14:12 2.5 MG Ipratropium [place] 0.5 mg Q4HR NEB 04/06/25 14:00 04/08/25 14:11 0.5 MG Ertapenem 1 gm/ Sodium Chloride 50 ml @ 100 mls/hr DAILY IV 04/08/25 14:00 04/08/25 13:37 100 MLS/HR Bumetanide 3 mg BIDD IV 04/08/25 18:00 objective HEENT: No evidence of JVD, no oral ulcers. Pulmonary: Crackles on auscultation bilaterally Cardiovascular S1-S2, no S3 or S4 Abdomen: Bowel sounds positive, soft no rebound tenderness Skin: No rash Neurological: Alert, oriented, no focal weakness Extremities: 2+ lower extremity edema pitting Right upper chest CVC in place. laboratory and microbiology Laboratory Tests 04/08/25 04:20 Test 04/08/25 04:20 Range/Units Serum Glucose 93 74-106 mg/dL Assessment/Plan Assessment: Hemodialysis dependent Acute kidney injury superimposed on CKD 4 Patient has tenuous renal function along with chronic fluid overload very difficult to manage historically because of the need of high doses of loop diuretics along with thiazide diuretic to manage hypervolemia with ensuing worsening of the renal function. Sepsis with a urine culture growing E coli and Klebsiella both of which are ESBL . Wound culture with E coli ESBL Septic shock Currently off Levophed Pelvic abscess Status post drainage of left pelvic abscess Left hydronephrosis which has a resolved Acute on chronic diastolic heart failure Anemia status post transfusion of PRBC Pulmonary hypertension Atrial fibrillation Bed-bound patient Chronic alcoholism in remission, last alcoholic beverage three months ago. Recommendation/plan Hemodialysis today Continue Bumex b.i.d. 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 Currently she is off the pressors, prn Fluid restriction less than 1 L per day, renal diet Midodrine 3 times a day and during dialysis Would want to continue with the medical management for now. Continue TPN Overall long-term prognosis is guarded Dietary Evaluation Review Comments: Renal Specific 60g CCHO-60 Cardiac Diet d/t SCOT over CKD and low GFR Expected Outcomes/Goals: less uremic symptoms, better weight management Plan discussed with: Patient CC Plasma Assessment Blood Product Administration S: [id number] [address] MD Apr 08, 2025 15:27
--- NOTE | 2025-04-08 15:31 | DVH ---
XY CHEST PORTABLE, HISTORY: R/O PLEURAL EFFUSION COMPARISON: XY CHEST XRAY 1 VIEW on DOS: 04/04/25, XY CHEST PORTABLE on DOS: 03/30/25, XY CHEST PORTABLE on DOS: 03/24/25 XY CHEST XRAY 1 VIEW on DOS: 04/04/25, XY CHEST PORTABLE on DOS: 03/30/25, XY CHEST PORTABLE on DOS: 03/24 TECHNICAL DATA: 1 view of the chest was obtained. FINDINGS: Lines and tubes: Stable lines. Cardiomediastinal silhouette: Enlarged Pulmonary vasculature: Prominent Lung expansion: Low Lung airspace: Bibasilar opacities. Lung interstitium: Prominent Pleura: Trace effusions. Pneumothorax: no Bones: Unremarkable Other: no IMPRESSION: Similar lung aeration. Small bilateral pleural effusion. Cardiomegaly.
[2025-04-08] MEDS: BUMETANIDE 2.5mg/10ml (0.25 mg/ml) INJ IV ONE (16:09)
[2025-04-08] MEDS: BUMETANIDE 2.5mg/10ml (0.25 mg/ml) INJ IV SCH (16:24)
--- NOTE | 2025-04-08 17:51 | DVHPN2 ---
Progress Note - Dictate Date Seen: Apr 08, 2025 Has the PT tested + for MRSA If YES, has PT been informed?: No Medical Necessity Reason Pt with a Central, PICC or Fol: Yes The following are medically ne: Tijerina Catheter Reason for tijerina catheter: Strict I&O Subjective No new complaints ; abdominal pain improved Eating full liquid diet Patient is resting comfortably ; mild shortness of breath ALEKSANDAR drain output is minimal bloody less than 5 mL vital signs Vital Sign Date Time Temp Pulse Resp B/P (MAP) Pulse Ox O2 Delivery O2 Flow Rate FiO2 04/08/25 16:09 107/52 04/08/25 15:40 15 98 Nasal Cannula* 2 28 04/08/25 15:30 100 04/08/25 12:00 98.7 98.7 Total Intake and Output 04/07/25 04/07/25 04/08/25 15:00 23:00 07:00 Intake Total 52.813 ml 726.315 ml 265.002 ml Output Total 157 ml 40 ml Balance 52.813 ml 569.315 ml 225.002 ml medications Current Medications Medications Dose Ordered Sig/Sravan Route Start Time Stop Time Status Last Admin Dose Admin Acetaminophen/ Hydrocodone Bitart 1 tab Q4HP PRN PO 03/20/25 12:15 03/30/25 00:45 1 TAB Ondansetron HCl 4 mg Q4HP PRN IV 03/20/25 12:15 03/26/25 08:18 4 MG Docusate Sodium 100 mg BIDPRN PRN PO 03/20/25 12:15 Acetaminophen 650 mg Q6HP PRN PO 03/20/25 12:15 03/28/25 10:59 650 MG Nitroglycerin 0.4 mg Q5MINP PRN SL 03/20/25 12:15 03/25/25 09:26 0.4 MG Morphine Sulfate 2 mg Q30M PRN IV 03/20/25 12:15 03/25/25 09:43 2 MG Allopurinol 100 mg DAILY PO 03/21/25 10:00 04/08/25 10:18 100 MG Apixaban 2.5 mg BID PO 03/20/25 22:00 04/08/25 10:17 2.5 MG Cilostazol 100 mg BID PO 03/20/25 22:00 04/08/25 10:18 100 MG Patient Own Medication 1 tab DAILY PO 03/21/25 10:00 UNV Patient Own Medication 1 tab DAILY PO 03/21/25 10:00 UNV Gabapentin 300 mg DAILY PO 03/21/25 10:00 04/08/25 10:17 300 MG Levothyroxine Sodium 112 mcg DAILY PO 03/21/25 10:00 04/08/25 10:17 112 MCG Levothyroxine Sodium 25 mcg DAILY PO 03/21/25 10:00 04/08/25 10:17 25 MCG Diphenhydramine HCl 50 mg [id number] PRN PO 03/21/25 16:45 03/21/25 22:57 50 MG Patient Own Medication 1 tab BID PO 03/21/25 22:00 04/08/25 10:17 1 TAB Throat Lozenges 1 liv Q2HP PRN MT 03/23/25 04:00 03/23/25 14:52 1 LIV Pantoprazole Sodium 40 mg DAILY IV 03/26/25 10:00 04/08/25 10:17 40 MG Magnesium Oxide 400 mg DAILY PO 03/27/25 10:00 04/08/25 10:17 400 MG Ertapenem 0.5 gm DAILY IM 03/27/25 11:15 Cancel Diagnostic Test (Pha) 1 strip Q6HR 03/27/25 18:00 04/08/25 12:03 1 STRIP Insulin Human Regular FOLLOW SLIDING SCALE Q6HR SC 03/27/25 18:00 04/03/25 06:18 2 UNITS Dextrose 50 ml UD IV 03/27/25 12:30 Norepinephrine Bitartrate 250 ml @ 0.938 mls/ hr Q24H IV 03/28/25 09:15 04/06/25 10:08 1.875 MLS/HR Amiodarone HCl 200 mg Q12HR PO 03/29/25 10:00 04/08/25 10:17 200 MG Nystatin 1 applic DAILY TOP 04/01/25 10:00 04/08/25 10:18 1 APPLIC Multivit/Ca Carb/ B Cmplx/FA/Prenat 1 tab DAILY PO 04/03/25 10:00 04/08/25 10:17 1 TAB Ferrous Sulfate 325 mg BIDWM PO 04/03/25 18:00 04/08/25 08:18 325 MG Midodrine 10 mg TID@0600,1200,1800 PO 04/04/25 12:00 04/08/25 11:58 10 MG Albuterol 2.5 mg Q4HR NEB 04/06/25 14:00 04/08/25 14:12 2.5 MG Ipratropium [place] 0.5 mg Q4HR NEB 04/06/25 14:00 04/08/25 14:11 0.5 MG Ertapenem 1 gm/ Sodium Chloride 50 ml @ 100 mls/hr DAILY IV 04/08/25 14:00 04/08/25 13:37 100 MLS/HR Bumetanide 3 mg BIDD IV 04/08/25 18:00 objective General examination- awake, alert HEENT- PEERLA, morbidly obese Cardiovascular- S1-S2 audible, rate and rhythm regular, no murmur Respiratory- CTAB, no wheeze or rhonchi Gastrointestinal-lower abdominal wall tenderness+, bowel sound+. Nondistended Musculoskeletal-no acute joint swelling or tenderness or redness Lower extremity- no leg edema Neurological- cranial nerves intact, no acute dysarthria or dysphagia laboratory and microbiology Laboratory Tests 04/08/25 04:20 Test 04/08/25 04:20 Range/Units Serum Glucose 93 74-106 mg/dL Problems(with codes): (1) Cardiac volume overload (2) COPD with acute exacerbation (3) Failure to thrive (4) Shortness of breath (5) E. coli UTI (urinary tract infection) (6) Sepsis (7) Generalized weakness (8) Pelvic abscess in female Prognosis Plan Because of increasing size of abscess consider keeping the patient NPO on IV TPN and IV antibiotics Flush the ALEKSANDAR drain gently to ensure that it is not clogged and monitor for drainage Supportive care, prognosis remains guarded Because of her morbid obesity patient is not a good surgical candidate and may end up with a colostomy Dietary Evaluation Review Comments: Renal Specific 60g CCHO-60 Cardiac Diet d/t SCOT over CKD and low GFR Expected Outcomes/Goals: less uremic symptoms, better weight management Plan discussed with: Other (None) CC Plasma Assessment Blood Product Administration S: [id number] MAGALYS AQUINO MD Apr 08, 2025 17:51
[2025-04-08] MEDS: ALBUMIN 25% 100 ML IV ONE (18:53)
[2025-04-08] MEDS: EPOETIN ALFA-EPBX 10,000 UNIT/1ML VIAL SC ONE (22:10)
[2025-04-09] VITALS (104 sets, daily range): BP systolic 82–132; BP diastolic 36–71; PULSE 92–113; RESP 12–25; TEMP 97.8–98.2; O2SAT 88–100
[2025-04-09 04:20] LABS: Hemoglobin 7.8 g/dL (12.2-16.2)
[2025-04-09 04:23] LABS: Chloride 100 mmol/L (98-107); Potassium 3.7 mmol/L (3.5-5.1); Sodium 139 mmol/L (136-145)
[2025-04-09 04:24] LABS: Anion Gap 10 (5-15); Carbon Dioxide 29 mmol/L (20-31)
[2025-04-09 04:25] LABS: Calcium 9.4 mg/dL (8.7-10.4); Hematocrit 24.3 % (36.0-46.0); Mean Corpuscular Hemoglobin 28.6 pg (28.0-32.0); Mean Corpuscular Volume 88.6 fL (80.0-100.0); Nucleated Red Blood Cells % 0.1 %
[2025-04-09 04:29] LABS: BUN/Creatinine Ratio 15.3 (10.0-20.0); Glucose 85 mg/dL (74-106)
[2025-04-09 04:39] LABS: Blood Urea Nitrogen 30 mg/dL (9-23)
--- NOTE | 2025-04-09 07:27 | DVHPN2 ---
Progress Note - Dictate Date Seen: Apr 09, 2025 Has the PT tested + for MRSA If YES, has PT been informed?: No Medical Necessity Reason Pt with a Central, PICC or Fol: Yes The following are medically ne: Tijerina Catheter Reason for tijerina catheter: Strict I&O vital signs Vital Sign Date Time Temp Pulse Resp B/P (MAP) Pulse Ox O2 Delivery O2 Flow Rate FiO2 04/09/25 06:49 100/51 04/09/25 06:45 107 19 93 04/09/25 06:13 Nasal Cannula* 3 32 04/09/25 04:00 98.0 98.0 Total Intake and Output 04/08/25 04/08/25 04/09/25 15:00 23:00 07:00 Intake Total 586.938 ml 583.751 ml 25.315 ml Output Total 425 ml 300 ml Balance 586.938 ml 158.751 ml -274.685 ml medications Current Medications Medications Dose Ordered Sig/Sravan Route Start Time Stop Time Status Last Admin Dose Admin Acetaminophen/ Hydrocodone Bitart 1 tab Q4HP PRN PO 03/20/25 12:15 03/30/25 00:45 1 TAB Ondansetron HCl 4 mg Q4HP PRN IV 03/20/25 12:15 03/26/25 08:18 4 MG Docusate Sodium 100 mg BIDPRN PRN PO 03/20/25 12:15 Acetaminophen 650 mg Q6HP PRN PO 03/20/25 12:15 03/28/25 10:59 650 MG Nitroglycerin 0.4 mg Q5MINP PRN SL 03/20/25 12:15 03/25/25 09:26 0.4 MG Morphine Sulfate 2 mg Q30M PRN IV 03/20/25 12:15 03/25/25 09:43 2 MG Allopurinol 100 mg DAILY PO 03/21/25 10:00 04/08/25 10:18 100 MG Apixaban 2.5 mg BID PO 03/20/25 22:00 04/08/25 22:09 2.5 MG Cilostazol 100 mg BID PO 03/20/25 22:00 04/08/25 22:09 100 MG Patient Own Medication 1 tab DAILY PO 03/21/25 10:00 UNV Patient Own Medication 1 tab DAILY PO 03/21/25 10:00 UNV Gabapentin 300 mg DAILY PO 03/21/25 10:00 04/08/25 10:17 300 MG Levothyroxine Sodium 112 mcg DAILY PO 03/21/25 10:00 04/08/25 10:17 112 MCG Levothyroxine Sodium 25 mcg DAILY PO 03/21/25 10:00 04/08/25 10:17 25 MCG Diphenhydramine HCl 50 mg [id number] PRN PO 03/21/25 16:45 03/21/25 22:57 50 MG Patient Own Medication 1 tab BID PO 03/21/25 22:00 04/08/25 22:10 1 TAB Throat Lozenges 1 liv Q2HP PRN MT 03/23/25 04:00 03/23/25 14:52 1 LIV Pantoprazole Sodium 40 mg DAILY IV 03/26/25 10:00 04/08/25 10:17 40 MG Magnesium Oxide 400 mg DAILY PO 03/27/25 10:00 04/08/25 10:17 400 MG Ertapenem 0.5 gm DAILY IM 03/27/25 11:15 Cancel Diagnostic Test (Pha) 1 strip Q6HR 03/27/25 18:00 04/09/25 06:43 1 STRIP Insulin Human Regular FOLLOW SLIDING SCALE Q6HR SC 03/27/25 18:00 04/03/25 06:18 2 UNITS Dextrose 50 ml UD IV 03/27/25 12:30 Norepinephrine Bitartrate 250 ml @ 0.938 mls/ hr Q24H IV 03/28/25 09:15 04/08/25 18:37 0.938 MLS/HR Amiodarone HCl 200 mg Q12HR PO 03/29/25 10:00 04/08/25 22:01 200 MG Nystatin 1 applic DAILY TOP 04/01/25 10:00 04/08/25 10:18 1 APPLIC Multivit/Ca Carb/ B Cmplx/FA/Prenat 1 tab DAILY PO 04/03/25 10:00 04/08/25 10:17 1 TAB Ferrous Sulfate 325 mg BIDWM PO 04/03/25 18:00 04/08/25 18:24 325 MG Midodrine 10 mg TID@0600,1200,1800 PO 04/04/25 12:00 04/09/25 06:43 10 MG Albuterol 2.5 mg Q4HR NEB 04/06/25 14:00 04/09/25 06:11 2.5 MG Ipratropium [place] 0.5 mg Q4HR NEB 04/06/25 14:00 04/09/25 06:11 0.5 MG Ertapenem 1 gm/ Sodium Chloride 50 ml @ 100 mls/hr DAILY IV 04/08/25 14:00 04/08/25 13:37 100 MLS/HR Bumetanide 3 mg BIDD IV 04/08/25 18:00 04/09/25 06:43 3 MG laboratory and microbiology Laboratory Tests 04/09/25 03:00 Test 04/09/25 03:00 Range/Units Serum Glucose 85 74-106 mg/dL Assessment/Plan Patient is a 74-year-old female who was admitted on March 20, 2025 for abdominal pain/nausea/vomiting. She is admitted to ICU for septic shock. On March 24, 2025, cardiology was involved for cardiac aspects of care. Patient is known to our practice from before and previous admissions. She is known to have significant alcohol abuse (drinks whiskey every day) and also history of pulmonary hypertension/type 2 pulmonary hypertension, diastolic heart failure. Does have poor functional capacity and is bed-bound. Is significantly morbidly obese. Does have baseline history of atrial fibrillation and is on Eliquis as outpatient. Is found to have septic shock and possible pelvic abscess. Is seen by surgery/Urology/pulmonary/GI. Denies chest pains. Denies palpitations. Is noncompliant with medication and followups. While being managed in ICU was found to have atrial fibrillation with RVR. 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 She has had multiple surgeries in the bilateral feet. She also has history of COPD/asthma with chronic respiratory failure (on home oxygen). Morbidly obese. Not in acute distress. No JVD. Mucosa is dry. Mucosa is pink. No JVD. No carotid bruit. Not using accessory muscles of breathing. Scattered rhonchi in the lungs is heard. Cardiac: Irregular, no thrill. Abdomen is obese and soft. There is no gross hepatomegaly, but it is presence can not be ruled out (body habitus, morbidly obese). There is 3+ edema in bilateral lower extremities which extends to abdominal wall. Past medical history includes morbid obesity, atrial fibrillation (on Eliquis as outpatient), COPD/asthma with chronic respiratory failure on home oxygen, morbid obesity, hypertension, hyperlipidemia, chronic lymphedema, Diastolic heart failure with type 2 pulmonary hypertension, rheumatoid arthritis, osteoarthritis, peripheral vascular disease, CKD (stage IV), anemia, alcohol abuse, neuropathy, gout, old history of right and left foot fracture and their management, status post right knee replacement, status post , bed-bound at baseline and functional quadriplegia. Patient drinks whiskey daily. Goes to Nephrology regularly. Reportedly, there has been some concern about going to have fistula creation on preparation for dialysis? Echocardiogram of January 03 2024 (performed in [facility]) revealed ejection fraction of 60%, mild biatrial enlargement, mild MR/TR and right ventricular systolic pressure of 31 mm Hg. Echocardiogram of (performed in [facility]) revealed: EF of 50 to 55%, Dilated right ventricle with normal systolic function. Severe biatrial enlargement. Mild AI, mild to moderate MR, moderate TR and RVSP of 51 mmHg. Ascending Aorta was 3.7 cm. Echocardiogram of November 09, 2024 revealed ejection fraction of 72%, mild right ventricular enlargement, moderate biatrial enlargement, mild to moderate tricuspid regurgitation, mild mitral regurgitation, right ventricular systolic pressure 54 mm Hg Echocardiogram of February 23, 2025 revealed ejection fraction of around 50%, mild concentric left ventricular hypertrophy, right ventricular enlargement with preserved systolic function. Biatrial enlargement, mild aortic insufficiency, [id number] mitral regurgitation and tricuspid regurgitation. IVC was significantly dilated. Right ventricular systolic pressure of of 55 mm Hg Hemoglobin: 6.7 - 8.6 - 8.1 - 7.6 - 7.9 - 7.7 - 7.8 - 7.8 - 7.6 - 7.5 - 7.1 - 7.0 - 8.5 - 8.2 - 7.6 - 7.7 - 7.5 - 7.1 - 7.0 - 6.8 - 7.9 - 7.6 - 7.8 Creatinine: 3.29 - 2.63 - 2.77 - 2.59 - 2.13 - 1.98 - 1.98 - 2.47- 2.98 - 3.36 - 3.56 - 3.83 - 4.12 - 4.27 - 4.67 - 4.54 - 2.92 - 2.91 - 2.98 - 2.06 - 2.36 - 2.49 - 1.96 Potassium: 3.9 - 3.4 - 3.8 - 3.3 - 3.4 - 3.9 - 3.5 - 3.5 - 3.3 - 3.4 - 3.7 - 3.8 - 4.0 - 4.3 - 4.0 - 3.6 - 3.3 - 3.5 - 3.9 - 3.9 - 4.0 - 3.9 - 3.7 Troponin (high sensitive): 32 - 31 - 34 TSH: 0.17 - 0.15 T3: 0.40 (low) T4: 5.7 Free T4: 1.27 Free T3: 1.55 (low) Urine and Aspirate culture: ESBL E-coli Chest x-ray revealed: IMPRESSION: Cardiomegaly. Repeat chest x-ray revealed: IMPRESSION: 1. Cardiomegaly with increased interstitial prominence suggestive of CHF exacerbation. 2. Pulmonary arterial hypertension. Repeat chest x-ray revealed: IMPRESSION: Cardiomegaly with mild pulmonary congestion. . Repeat chest x-ray revealed: IMPRESSION: Cardiomegaly with pulmonary congestion and edema. Superimposed pneumonia cannot be excluded. Repeat chest x-ray revealed: IMPRESSION: Worsening right lower lung airspace disease. Suggestion of small bilateral pleural effusions. Repeat chest xray revealed: IMPRESSION: No significant interval change Repeat chest xry revealed: IMPRESSION: 1. Right internal jugular hemodialysis catheter in place with tip at the cavoatrial junction. 2. Right internal jugular catheter in place unchanged 3. Findings suggest worsening airspace disease in probable congestive failure or volume overload. Repeat chest xry revealed: IMPRESSION: Similar lung aeration. Small bilateral pleural effusion. Cardiomegaly. Abdominal ultrasound revealed: IMPRESSION: Small left hydronephrosis Renal scan revealed: IMPRESSION: Bilateral renal obstruction is present which is not response to Lasix administration suggesting that the kidney may be minimally functional. Abdomen and pelvic CT scan revealed: IMPRESSION: Moderate left hydroureteronephrosis. Suggestion of possible small abscess formation in the left hemipelvis associated with the sigmoid colon measuring 5.7 cm. This may represent site of ureteral obstruction. Clinical correlation advised. Examination is limited secondary to lack of intravenous and oral contrast administration. Abdomen and pelvis CT revealed: IMPRESSION: Sigmoid colonic diverticulitis with an adjacent 6 cm fluid collection with gas, could be an abscess. Probable fistula of the sigmoid to the fluid collection, and possibly with the urinary bladder, which is decompressed with a Tijerina. Possible trace left hydronephrosis with perinephric fat stranding. Repeat CT of abdomen and pelvis revealed: IMPRESSION: Small to moderate bilateral pleural effusions and associated compressive atelectasis / consolidation. Left lower quadrant pelvic drain in satisfactory position with significant interval decrease in size of abscess currently measuring 2.2 cm, previously 5.[address] guided abscess drainage: IMPRESSION: CT guided placement of 8 vietnamese pigtail drain into a left hemipelvic abscess with 30 mL purulent fluid aspirated. PLAN: Routine tube care. Renal ultrasound revealed: IMPRESSION: Unremarkable renal ultrasound without hydronephrosis seen. EKG revealed atrial fibrillation with RVR Tele reveals atrial fibrillation with RVR Echocardiogram revealed: Left ventricle: Mild concentric left ventricular hypertrophy was seen. LVEF was around 50%. Right ventricle was mildly dilated with reduced systolic function. Both atria were dilated. Aortic valve was not well visualized. There was no aortic insufficiency/stenosis. There was mild mitral regurgitation. There was [id number] tricuspid regurgitation. Pulmonary valve was not well visualized. Right ventricular systolic pressure was assessed at 50 mm Hg. IVC was dilated. There was no pericardial effusion. Patient is a 74-year-old female with known history of diastolic heart failure with type 2 pulmonary hypertension who presented with abdominal pain. He is admitted to ICU with septic shock. Did have thrombocytopenia which slowly improved. Was significantly anemic and was transfused PRBC. There has been question about pelvic abscess and the patient is on antibiotics. Patient is being followed by surgery/Urology/pulmonary/GI. It is of note that the patient does have history of significant alcohol abuse (drinks good amount of whiskey daily) which could contribute to to some component of the clinical picture. Does have baseline history of pulmonary hypertension. Usually is on some amount of diuretic (Bumex) as outpatient. Clinically, the patient does have dry mucosa and maybe behind fluids at the time of evaluation. Does have baseline poor functional capacity. Does have history of recent sepsis. s/p CT guided abscess drainage. Seen by Nephrology. Diuretics are on hold. TFT are in favor of subclinical thyroid problem. Still with poor kidney function. Nephrology suggested hemodialysis, patient is hesitant. Significant anemia, status post PRBC transfusion Thrombocytopenia, resolved Septic shock SCOT on CKD Hydronephrosis Pelvic abscess Transaminitis Acute on chronic diastolic heart failure Pulmonary Hypertension, type 2 Alcohol abuse Morbid obesity Poor functional capacity Bed-bound at baseline Atrial fibrillation with RVR Hyperlipidemia Osteoarthritis Rheumatoid arthritis Peripheral vascular disease Abdominal abscess? s/p CT guided abscess drainage s/p PRBC transfusion Cardiac suggestion for management: Manage in ICU Follow-up electrolytes and kidney function tests and correct abnormalities Full anticoagulation (on Eliquis presently), long-term Septic shock, still on pressure support and IV antibiotics On Midodrine Started on HD On oral amiodarone Pressor support at this point to keep mean arterial pressure above 65 Evaluation and management of sepsis/infection as per primary team Evaluation and management of alcohol abuse/prevention of withdrawal as per primary team Evaluation and management of pelvic abscess/hydronephrosis as per primary team/surgery/Urology Further evaluation and management depends on the above and clinical course A total of 75 minutes was spent reviewing the patient record, examining the patient, making a diagnostic and therapeutic plan, discussing this plan with medical personnel, following up on diagnostic studies and following the patient for clinical stability excluding any and all procedures. At least 50% of this time was spent in direct, [id number] contact. Thank you for allowing me to participate in this patient's care. Further recommendations will depend on patient's clinical course. Please do not hesitate to contact me if you have any questions or concerns. This medical document was created using electronic medical record system with [employer] computerized dictation system. Although this document has been carefully reviewed, there may still be some phonetic and typographical errors. These areas are purely typographical due to the imperfection of the software programs, and do not reflect any compromise in the patient's medical care. Dietary Evaluation Review Comments: Renal Specific 60g CCHO-60 Cardiac Diet d/t SCOT over CKD and low GFR Expected Outcomes/Goals: less uremic symptoms, better weight management Plan discussed with: Other (nurse) CC Plasma Assessment Blood Product Administration S: [id number] AUSTIN ROMERO MD Apr 09, 2025 07:27
--- NOTE | 2025-04-09 08:55 | DVHPN2 ---
Subjective Denies any symptoms at this time Reviewed: Care Plan, H&P, Labs, Medications, Previous Orders, Radiology Changes from previous H/P or p: No Changes General: Per HPI Eyes: No Pain, No Vision change, No Conjunctivae inflammation, No Eyelid inflammation, No Other, No Redness ENT: No Ear pain, No Ear discharge, No Nose pain, No Nose discharge, No Nose congestion, No Mouth pain, No Mouth swelling, No Throat pain, No Throat swelling, No Other Cardiovascular: No Chest Pain, No Palpitations, No Orthopnea, No Paroxysmal Noc. Dyspnea, No Edema, No Lt Headedness, No Other Respiratory: No Cough, No Dry, No Shortness of breath, No SOB with excertion, No Wheezing, No Hemoptysis, No Pleuritic Pain, No Sputum, No Other Gastrointestinal: Nausea, Vomiting, Abdominal Pain Genitourinary: No Dysuria, No Frequency, No Incontinence, No Hematuria, No Retention, No Other Musculoskeletal: No other, No neck pain, No shoulder pain, No arm pain, No back pain, No hand pain, No leg pain, No foot pain Skin: No Rash, No Lesions, No Jaundice, No Bruising, No Other Objective Vitals Vital Signs Date Time Temp Pulse Resp B/P (MAP) Pulse Ox O2 Delivery O2 Flow Rate FiO2 04/09/25 08:45 106 20 101/44 (63) 95 04/09/25 08:00 97.8 97.8 04/09/25 08:00 Nasal Cannula* 3 32 Intake/Output Intake and Output 04/09/25 07:00 Intake Total 1196.004 ml Output Total 725 ml Balance 471.004 ml Intake Oral 1036 ml IV Total 160.004 ml Output Urine Total 675 ml Other 50 ml General Appearance: Alert, Oriented X3, Cooperative, Other HEENT: Atraumatic, PERRLA Cardiovascular: Normal S1, Normal S2, Other Abdomen: Normal bowel sounds, Other Extremities: No edema, Normal pulses Neuro: Sensation intact, Cranial nerves 3-12 NL Skin: Dry, Intact Psych/Mental Status: Mental status NL, Mood NL Medications Current Medications Medications Dose Ordered Sig/Sravan Route Start Time Stop Time Status Last Admin Dose Admin Acetaminophen/ Hydrocodone Bitart 1 tab Q4HP PRN PO 03/20/25 12:15 03/30/25 00:45 1 TAB Ondansetron HCl 4 mg Q4HP PRN IV 03/20/25 12:15 03/26/25 08:18 4 MG Docusate Sodium 100 mg BIDPRN PRN PO 03/20/25 12:15 Acetaminophen 650 mg Q6HP PRN PO 03/20/25 12:15 03/28/25 10:59 650 MG Nitroglycerin 0.4 mg Q5MINP PRN SL 03/20/25 12:15 03/25/25 09:26 0.4 MG Morphine Sulfate 2 mg Q30M PRN IV 03/20/25 12:15 03/25/25 09:43 2 MG Allopurinol 100 mg DAILY PO 03/21/25 10:00 04/08/25 10:18 100 MG Apixaban 2.5 mg BID PO 03/20/25 22:00 04/08/25 22:09 2.5 MG Cilostazol 100 mg BID PO 03/20/25 22:00 04/08/25 22:09 100 MG Patient Own Medication 1 tab DAILY PO 03/21/25 10:00 UNV Patient Own Medication 1 tab DAILY PO 03/21/25 10:00 UNV Gabapentin 300 mg DAILY PO 03/21/25 10:00 04/08/25 10:17 300 MG Levothyroxine Sodium 112 mcg DAILY PO 03/21/25 10:00 04/08/25 10:17 112 MCG Levothyroxine Sodium 25 mcg DAILY PO 03/21/25 10:00 04/08/25 10:17 25 MCG Diphenhydramine HCl 50 mg [id number] PRN PO 03/21/25 16:45 03/21/25 22:57 50 MG Patient Own Medication 1 tab BID PO 03/21/25 22:00 04/08/25 22:10 1 TAB Throat Lozenges 1 liv Q2HP PRN MT 03/23/25 04:00 03/23/25 14:52 1 LIV Pantoprazole Sodium 40 mg DAILY IV 03/26/25 10:00 04/08/25 10:17 40 MG Magnesium Oxide 400 mg DAILY PO 03/27/25 10:00 04/08/25 10:17 400 MG Ertapenem 0.5 gm DAILY IM 03/27/25 11:15 Cancel Diagnostic Test (Pha) 1 strip Q6HR 03/27/25 18:00 04/09/25 06:43 1 STRIP Insulin Human Regular FOLLOW SLIDING SCALE Q6HR SC 03/27/25 18:00 04/03/25 06:18 2 UNITS Dextrose 50 ml UD IV 03/27/25 12:30 Norepinephrine Bitartrate 250 ml @ 0.938 mls/ hr Q24H IV 03/28/25 09:15 04/08/25 18:37 0.938 MLS/HR Amiodarone HCl 200 mg Q12HR PO 03/29/25 10:00 04/08/25 22:01 200 MG Nystatin 1 applic DAILY TOP 04/01/25 10:00 04/08/25 10:18 1 APPLIC Multivit/Ca Carb/ B Cmplx/FA/Prenat 1 tab DAILY PO 04/03/25 10:00 04/08/25 10:17 1 TAB Ferrous Sulfate 325 mg BIDWM PO 04/03/25 18:00 04/08/25 18:24 325 MG Midodrine 10 mg TID@0600,1200,1800 PO 04/04/25 12:00 04/09/25 06:43 10 MG Albuterol 2.5 mg Q4HR NEB 04/06/25 14:00 04/09/25 06:11 2.5 MG Ipratropium [place] 0.5 mg Q4HR NEB 04/06/25 14:00 04/09/25 06:11 0.5 MG Ertapenem 1 gm/ Sodium Chloride 50 ml @ 100 mls/hr DAILY IV 04/08/25 14:00 04/08/25 13:37 100 MLS/HR Bumetanide 3 mg BIDD IV 04/08/25 18:00 04/09/25 06:43 3 MG Amino Acids 0 ml @ 0 mls/hr PER PHARMACY IV 04/09/25 09:00 UNV Laboratory Results Laboratory Tests 04/09/25 03:00 Chemistry Test 04/09/25 03:00 Calcium Level 9.4 mg/dL (8.7-10.4) Urinalysis Test 03/20/25 09:34 Urine Color Colorless (Yellow) Urine Clarity Turbid (Clear) H Urine pH 5.0 (5.0-9.0) Urine Specific [place] 1.015 (1.001-1.035) Urine Protein Negative (Negative) Urine Ketones Negative (Negative) Urine Blood Negative /uL (Negative) Urine Nitrite Negative (Negative) Urine Bilirubin Negative (Negative) Urine Urobilinogen Normal mg/dL (Negative) Urine Leukocyte Esterase 3+ /uL (Negative) Urine RBC 1 /hpf (0 - 4) Urine Microscopic WBC 255 /HPF (0-5) H Urine Squamous Epithelial Cells Few /hpf (<5) Urine Bacteria Few /hpf (None Seen) H Urine Glucose Normal mg/dL (Normal) Microbiology Microbiology Date/Time Source Procedure Growth Status 03/26/25 15:00 Aspirate Gram Stain - Final Complete 03/26/25 15:00 Body Fluid Culture - Final Escherichia coli - ESBL Enterobacter cloacae Proteus mirabilis Complete 03/23/25 04:30 Throat Nose/Throat Culture - Final Complete 03/21/25 18:00 Urine - Catheterized Urine Culture - Final Escherichia coli - ESBL Klebsiella pneumoniae - ESBL Complete 03/20/25 21:52 Nose MRSA Screen - Final Complete Labs and/or images reviewed: Labs reviewed by me, Image(s) reviewed by me Assessment/Plan Assessment/Plan Impression: -septic shock -diverticular abscess -AFib with RVR -morbid obesity -obstructive uropathy -CKD stage 4 -acute kidney injury, vasomotor nephropathy -acute on chronic systolic and diastolic heart failure -bed-bound status -complicated cystitis with ESBL in the urine. Plan: Events: White blood cell count increasing. Awaiting ID consultation recommendations. Continue Invanz. Discussion made with the patient yesterday regarding transfer to LTAC for which he is agreeable. Patient NPO except medications and ice chips. Restart TPN -social service consultation to transfer to long-term acute care Facility -norepinephrine p.r.n. -continue midodrine -continue Invanz -NPO except meds and TPN -continue anticoagulation with Eliquis -repeat labs in a.m. Critical care time spent with patient discussing and formulating plan of care: 40 minutes. This does not include time spent performing procedures. This medical document was created using an electronic medical record system with [employer] system. Although this document has been carefully reviewed, there may still be some phonetic and typographical errors. These areas are purely typographical due to imperfections of the software programs, and do not reflect any compromise in the patient's medical care. Plan discussed with: Patient, Other (RN) My Orders Orders - GONZALO ASKEW NP Procedure Category Date Status Time * Pipe [employer]ending [employer] Operator CONS 04/08/25 Transmitted Consult Ertapenem Sod Inj PHA 04/08/25 In Process (Invanz) 14:00 Tpn Per Pharmacy PHA 04/09/25 Transmitted 09:00 Date of Service: Apr 09, 2025 Billing Provider: GONZALO ASKEW NP Common Visit Codes: 01380-[id number] CARE 30-74 MIN GONZALO ASKEW NP Apr 09, 2025 08:55
[2025-04-09] MEDS ORDERED: TPN PER PHARMACY 0 ML IV SCH (09:00)
[2025-04-09 09:26] LABS: Triglycerides 58.0 mg/dL (< 150)
[2025-04-09 09:27] LABS: Magnesium 2.0 mg/dL (1.6-2.6)
[2025-04-09 09:28] LABS: Albumin 3.8 g/dL (3.2-4.8)
[2025-04-09] MEDS: LEVOTHYROXINE SODIUM 100 MCG/5 ML INJ IV SCH (10:47)
[2025-04-09] MEDS ORDERED: ERTAPENEM SOD INJ 1 GM in SODIUM CHL 0.9% 50 ML IV SCH (12:00)
--- NOTE | 2025-04-09 15:58 | DVHPN2 ---
Progress Note - Dictate Date Seen: Apr 09, 2025 Has the PT tested + for MRSA If YES, has PT been informed?: No Medical Necessity Reason Pt with a Central, PICC or Fol: Yes The following are medically ne: Tijer[place] Catheter Reason for tijerina catheter: Strict I&O Subjective No new complaints vital signs Vital Sign Date Time Temp Pulse Resp B/P (MAP) Pulse Ox O2 Delivery O2 Flow Rate FiO2 04/09/25 14:21 99 16 100 04/09/25 13:45 105/52 (69) 04/09/25 13:32 Nasal Cannula* 3 32 04/09/25 11:45 98.0 98.0 Total Intake and Output 04/08/25 04/08/25 04/09/25 15:00 23:00 07:00 Intake Total 586.938 ml 583.751 ml 27.190 ml Output Total 425 ml 300 ml Balance 586.938 ml 158.751 ml -272.810 ml medications Current Medications Medications Dose Ordered Sig/Sravan Route Start Time Stop Time Status Last Admin Dose Admin Acetaminophen/ Hydrocodone Bitart 1 tab Q4HP PRN PO 03/20/25 12:15 03/30/25 00:45 1 TAB Ondansetron HCl 4 mg Q4HP PRN IV 03/20/25 12:15 03/26/25 08:18 4 MG Docusate Sodium 100 mg BIDPRN PRN PO 03/20/25 12:15 Acetaminophen 650 mg Q6HP PRN PO 03/20/25 12:15 03/28/25 10:59 650 MG Nitroglycerin 0.4 mg Q5MINP PRN SL 03/20/25 12:15 03/25/25 09:26 0.4 MG Morphine Sulfate 2 mg Q30M PRN IV 03/20/25 12:15 03/25/25 09:43 2 MG Allopurinol 100 mg DAILY PO 03/21/25 10:00 04/09/25 09:04 100 MG Apixaban 2.5 mg BID PO 03/20/25 22:00 04/09/25 09:04 2.5 MG Cilostazol 100 mg BID PO 03/20/25 22:00 04/09/25 09:04 100 MG Patient Own Medication 1 tab DAILY PO 03/21/25 10:00 UNV Patient Own Medication 1 tab DAILY PO 03/21/25 10:00 UNV Gabapentin 300 mg DAILY PO 03/21/25 10:00 04/09/25 09:03 300 MG Diphenhydramine HCl 50 mg [id number] PRN PO 03/21/25 16:45 03/21/25 22:57 50 MG Patient Own Medication 1 tab BID PO 03/21/25 22:00 04/09/25 09:05 1 TAB Throat Lozenges 1 liv Q2HP PRN MT 03/23/25 04:00 03/23/25 14:52 1 LIV Pantoprazole Sodium 40 mg DAILY IV 03/26/25 10:00 04/09/25 09:03 40 MG Magnesium Oxide 400 mg DAILY PO 03/27/25 10:00 04/09/25 09:04 400 MG Ertapenem 0.5 gm DAILY IM 03/27/25 11:15 Cancel Diagnostic Test (Pha) 1 strip Q6HR 03/27/25 18:00 04/09/25 11:43 1 STRIP Insulin Human Regular FOLLOW SLIDING SCALE Q6HR SC 03/27/25 18:00 04/03/25 06:18 2 UNITS Dextrose 50 ml UD IV 03/27/25 12:30 Norepinephrine Bitartrate 250 ml @ 0.938 mls/ hr Q24H IV 03/28/25 09:15 04/08/25 18:37 0.938 MLS/HR Amiodarone HCl 200 mg Q12HR PO 03/29/25 10:00 04/09/25 09:03 200 MG Nystatin 1 applic DAILY TOP 04/01/25 10:00 04/09/25 09:05 1 APPLIC Multivit/Ca Carb/ B Cmplx/FA/Prenat 1 tab DAILY PO 04/03/25 10:00 04/09/25 09:03 1 TAB Ferrous Sulfate 325 mg BIDWM PO 04/03/25 18:00 04/08/25 18:24 325 MG Midodrine 10 mg TID@0600,1200,1800 PO 04/04/25 12:00 04/09/25 11:46 10 MG Albuterol 2.5 mg Q4HR NEB 04/06/25 14:00 04/09/25 14:12 2.5 MG Ipratropium [place] 0.5 mg Q4HR NEB 04/06/25 14:00 04/09/25 14:12 0.5 MG Ertapenem 1 gm/ Sodium Chloride 50 ml @ 100 mls/hr DAILY IV 04/08/25 14:00 04/09/25 09:32 100 MLS/HR Bumetanide 3 mg BIDD IV 04/08/25 18:00 04/09/25 06:43 3 MG Amino Acids 0 ml @ 0 mls/hr PER PHARMACY IV 04/09/25 09:00 Levothyroxine Sodium 50 mcg DAILY IV 04/09/25 10:00 04/09/25 10:47 50 MCG Fat Emulsion Intravenous 100 ml/Sodium Chloride 20 meq/ Sodium Phosphate 20 meq/Potassium Chloride 20 meq/ Magnesium Sulfate 6 meq/ Multivitamins 10 ml/Chromium/ Copper/Manganese/ Zinc 1 ml/Amino Acids/Dextrose/ Purified Water 1,432.5 ml @ 59.997 mls/hr [id number] IV 04/09/25 22:00 04/10/25 21:59 objective HEENT: No evidence of JVD, no oral ulcers. Pulmonary: Crackles on auscultation bilaterally Cardiovascular S1-S2, no S3 or S4 Abdomen: Bowel sounds positive, soft no rebound tenderness Skin: No rash Neurological: Alert, oriented, no focal weakness Extremities: 2+ lower extremity edema pitting Right upper chest CVC in place. laboratory and microbiology Laboratory Tests 04/09/25 03:00 Test 04/09/25 03:00 Range/Units Serum Glucose 85 74-106 mg/dL Problem List Assessment: Hemodialysis dependent Acute kidney injury superimposed on CKD 4 Patient has tenuous renal function along with chronic fluid overload very difficult to manage historically because of the need of high doses of loop diuretics along with thiazide diuretic to manage hypervolemia with ensuing worsening of the renal function. Sepsis with a urine culture growing E coli and Klebsiella both of which are ESBL . Wound culture with E coli ESBL Septic shock Currently off Levophed Pelvic abscess Status post drainage of left pelvic abscess Left hydronephrosis which has a resolved Acute on chronic diastolic heart failure Anemia status post transfusion of PRBC Pulmonary hypertension Atrial fibrillation Bed-bound patient Chronic alcoholism in remission, last alcoholic beverage three months ago. Recommendation/plan Hemodialysis to continue on TTS schedule Continue Bumex b.i.d. manager electrical to arrange chair time, we will monitor for renal recovery within the next 90 days Fluid restriction less than 1 L per day, renal diet Midodrine 3 times a day and during dialysis Overall long-term prognosis is guarded Dietary Evaluation Review Comments: Renal Specific 60g CCHO-60 Cardiac Diet d/t SCOT over CKD and low GFR Expected Outcomes/Goals: less uremic symptoms, better weight management Plan discussed with: Patient CC Plasma Assessment Blood Product Administration S: [id number] DOMO JOY MD Apr 09, 2025 15:58
--- NOTE | 2025-04-09 18:55 | DVHPN2 ---
Progress Note - Dictate Date Seen: Apr 09, 2025 Has the PT tested + for MRSA If YES, has PT been informed?: No Medical Necessity Reason Pt with a Central, PICC or Fol: Yes The following are medically ne: Tijer[place] Catheter Reason for tijerina catheter: Strict I&O vital signs Vital Sign Date Time Temp Pulse Resp B/P (MAP) Pulse Ox O2 Delivery O2 Flow Rate FiO2 04/09/25 18:29 102 19 98 04/09/25 18:22 Nasal Cannula* 3 32 04/09/25 18:13 113/53 04/09/25 11:45 98.0 98.0 Total Intake and Output 04/08/25 04/08/25 04/09/25 15:00 23:00 07:00 Intake Total 586.938 ml 583.751 ml 27.190 ml Output Total 425 ml 300 ml Balance 586.938 ml 158.751 ml -272.810 ml medications Current Medications Medications Dose Ordered Sig/Sravan Route Start Time Stop Time Status Last Admin Dose Admin Acetaminophen/ Hydrocodone Bitart 1 tab Q4HP PRN PO 03/20/25 12:15 03/30/25 00:45 1 TAB Ondansetron HCl 4 mg Q4HP PRN IV 03/20/25 12:15 03/26/25 08:18 4 MG Docusate Sodium 100 mg BIDPRN PRN PO 03/20/25 12:15 Acetaminophen 650 mg Q6HP PRN PO 03/20/25 12:15 03/28/25 10:59 650 MG Nitroglycerin 0.4 mg Q5MINP PRN SL 03/20/25 12:15 03/25/25 09:26 0.4 MG Morphine Sulfate 2 mg Q30M PRN IV 03/20/25 12:15 03/25/25 09:43 2 MG Allopurinol 100 mg DAILY PO 03/21/25 10:00 04/09/25 09:04 100 MG Apixaban 2.5 mg BID PO 03/20/25 22:00 04/09/25 09:04 2.5 MG Cilostazol 100 mg BID PO 03/20/25 22:00 04/09/25 09:04 100 MG Patient Own Medication 1 tab DAILY PO 03/21/25 10:00 UNV Patient Own Medication 1 tab DAILY PO 03/21/25 10:00 UNV Gabapentin 300 mg DAILY PO 03/21/25 10:00 04/09/25 09:03 300 MG Diphenhydramine HCl 50 mg [id number] PRN PO 03/21/25 16:45 03/21/25 22:57 50 MG Patient Own Medication 1 tab BID PO 03/21/25 22:00 04/09/25 09:05 1 TAB Throat Lozenges 1 liv Q2HP PRN MT 03/23/25 04:00 03/23/25 14:52 1 LIV Pantoprazole Sodium 40 mg DAILY IV 03/26/25 10:00 04/09/25 09:03 40 MG Magnesium Oxide 400 mg DAILY PO 03/27/25 10:00 04/09/25 09:04 400 MG Ertapenem 0.5 gm DAILY IM 03/27/25 11:15 Cancel Diagnostic Test (Pha) 1 strip Q6HR 03/27/25 18:00 04/09/25 18:20 1 STRIP Insulin Human Regular FOLLOW SLIDING SCALE Q6HR SC 03/27/25 18:00 04/03/25 06:18 2 UNITS Dextrose 50 ml UD IV 03/27/25 12:30 Norepinephrine Bitartrate 250 ml @ 0.938 mls/ hr Q24H IV 03/28/25 09:15 04/08/25 18:37 0.938 MLS/HR Amiodarone HCl 200 mg Q12HR PO 03/29/25 10:00 04/09/25 09:03 200 MG Nystatin 1 applic DAILY TOP 04/01/25 10:00 04/09/25 09:05 1 APPLIC Multivit/Ca Carb/ B Cmplx/FA/Prenat 1 tab DAILY PO 04/03/25 10:00 04/09/25 09:03 1 TAB Ferrous Sulfate 325 mg BIDWM PO 04/03/25 18:00 04/09/25 18:12 325 MG Midodrine 10 mg TID@0600,1200,1800 PO 04/04/25 12:00 04/09/25 18:12 10 MG Albuterol 2.5 mg Q4HR NEB 04/06/25 14:00 04/09/25 18:22 2.5 MG Ipratropium [place] 0.5 mg Q4HR NEB 04/06/25 14:00 04/09/25 18:22 0.5 MG Ertapenem 1 gm/ Sodium Chloride 50 ml @ 100 mls/hr DAILY IV 04/08/25 14:00 04/09/25 09:32 100 MLS/HR Bumetanide 3 mg BIDD IV 04/08/25 18:00 04/09/25 18:13 3 MG Amino Acids 0 ml @ 0 mls/hr PER PHARMACY IV 04/09/25 09:00 Levothyroxine Sodium 50 mcg DAILY IV 04/09/25 10:00 04/09/25 10:47 50 MCG Fat Emulsion Intravenous 100 ml/Sodium Chloride 20 meq/ Sodium Phosphate 20 meq/Potassium Chloride 20 meq/ Magnesium Sulfate 6 meq/ Multivitamins 10 ml/Chromium/ Copper/Manganese/ Zinc 1 ml/Amino Acids/Dextrose/ Purified Water 1,432.5 ml @ 59.997 mls/hr [id number] IV 04/09/25 22:00 04/10/25 21:59 laboratory and microbiology Laboratory Tests 04/09/25 03:00 Test 04/09/25 03:00 Range/Units Serum Glucose 85 74-106 mg/dL Assessment/Plan ,nImpression SCOT hypoxemia COPD pneumonia left hydronephrosis septic shock pt seen and examined in the ICU Events Low oxygen requirements On 3 liters nasal cannula Intermittently on Levophed for hemodynamic support S/p percutaneous drain placement for peritoneal abscess Labs and imaging studies reviewed management Supplemental oxygen keep sats above 90% bronchodilators for copd levophed as needed keep MAP above 65 mm Hg HD per nephrology continue antibiotics f/u cultures gi and dvt proph Dietary Evaluation Review Comments: Renal Specific 60g CCHO-60 Cardiac Diet d/t SCOT over CKD and low GFR Expected Outcomes/Goals: less uremic symptoms, better weight management Plan discussed with: Patient CC Plasma Assessment Blood Product Administration S: [id number] MD Apr 09, 2025 18:55
[2025-04-09] MEDS: TPN PER PHARMACY IV NR (21:46)
[2025-04-10] VITALS (71 sets, daily range): BP systolic 87–131; BP diastolic 38–69; PULSE 74–106; RESP 11–28; TEMP 97.1–98.4; O2SAT 78–100
[2025-04-10 03:38] LABS: Albumin 3.5 g/dL (3.2-4.8); Alkaline Phosphatase 98 U/L (46-116); Anion Gap 10 (5-15); BUN/Creatinine Ratio 17.1 (10.0-20.0); Calcium 9.3 mg/dL (8.7-10.4); Carbon Dioxide 29 mmol/L (20-31); Chloride 100 mmol/L (98-107); Magnesium 2.0 mg/dL (1.6-2.6); Sodium 139 mmol/L (136-145); Total Protein 6.2 g/dL (5.7-8.2)
[2025-04-10 03:42] LABS: Alanine Aminotransferase < 9 U/L (7-40); Bilirubin, Total 1.4 mg/dL (0.2-1.0); Blood Urea Nitrogen 40 mg/dL (9-23); Glucose 110 mg/dL (74-106); Potassium 3.3 mmol/L (3.5-5.1)
[2025-04-10 03:43] LABS: Mean Corpuscular Volume 89.7 fL (80.0-100.0); Nucleated Red Blood Cells % 0.1 %
[2025-04-10 03:46] LABS: Hematocrit 23.7 % (36.0-46.0); Hemoglobin 7.6 g/dL (12.2-16.2); Mean Corpuscular Hemoglobin 28.6 pg (28.0-32.0)
[2025-04-10 03:55] LABS: INR 1.78 (0.9-1.15); Prothrombin Time 17.8 sec (9.3-11.8)
[2025-04-10] MEDS: SODIUM CHL 0.9% 1000 ML BAG XX ONE (07:00)
--- NOTE | 2025-04-10 08:57 | DVHPN2 ---
Progress Note - Dictate Date Seen: Apr 10, 2025 Has the PT tested + for MRSA If YES, has PT been informed?: No Medical Necessity Reason Pt with a Central, PICC or Fol: Yes The following are medically ne: Tijerina Catheter Reason for tijerina catheter: Strict I&O vital signs Vital Sign Date Time Temp Pulse Resp B/P (MAP) Pulse Ox O2 Delivery O2 Flow Rate FiO2 04/10/25 06:45 101 25 103/52 (69) 95 04/10/25 06:02 Nasal Cannula 4.0 04/10/25 06:02 36 04/10/25 04:00 98.4 98.4 Total Intake and Output 04/09/25 04/09/25 04/10/25 15:00 23:00 07:00 Intake Total 50 ml 74.997 ml 629.976 ml Output Total 200 ml 100 ml Balance 50 ml -125.003 ml 529.976 ml medications Current Medications Medications Dose Ordered Sig/Sravan Route Start Time Stop Time Status Last Admin Dose Admin Acetaminophen/ Hydrocodone Bitart 1 tab Q4HP PRN PO 03/20/25 12:15 04/10/25 00:44 1 TAB Ondansetron HCl 4 mg Q4HP PRN IV 03/20/25 12:15 03/26/25 08:18 4 MG Docusate Sodium 100 mg BIDPRN PRN PO 03/20/25 12:15 Acetaminophen 650 mg Q6HP PRN PO 03/20/25 12:15 03/28/25 10:59 650 MG Nitroglycerin 0.4 mg Q5MINP PRN SL 03/20/25 12:15 03/25/25 09:26 0.4 MG Morphine Sulfate 2 mg Q30M PRN IV 03/20/25 12:15 03/25/25 09:43 2 MG Allopurinol 100 mg DAILY PO 03/21/25 10:00 04/09/25 09:04 100 MG Apixaban 2.5 mg BID PO 03/20/25 22:00 04/09/25 21:37 2.5 MG Cilostazol 100 mg BID PO 03/20/25 22:00 04/09/25 21:37 100 MG Patient Own Medication 1 tab DAILY PO 03/21/25 10:00 UNV Patient Own Medication 1 tab DAILY PO 03/21/25 10:00 UNV Gabapentin 300 mg DAILY PO 03/21/25 10:00 04/09/25 09:03 300 MG Diphenhydramine HCl 50 mg [id number] PRN PO 03/21/25 16:45 03/21/25 22:57 50 MG Patient Own Medication 1 tab BID PO 03/21/25 22:00 04/09/25 21:38 1 TAB Throat Lozenges 1 liv Q2HP PRN MT 03/23/25 04:00 03/23/25 14:52 1 LIV Pantoprazole Sodium 40 mg DAILY IV 03/26/25 10:00 04/09/25 09:03 40 MG Magnesium Oxide 400 mg DAILY PO 03/27/25 10:00 04/09/25 09:04 400 MG Ertapenem 0.5 gm DAILY IM 03/27/25 11:15 Cancel Diagnostic Test (Pha) 1 strip Q6HR 03/27/25 18:00 04/10/25 05:57 1 STRIP Insulin Human Regular FOLLOW SLIDING SCALE Q6HR SC 03/27/25 18:00 04/10/25 05:55 2 UNITS Dextrose 50 ml UD IV 03/27/25 12:30 Norepinephrine Bitartrate 250 ml @ 0.938 mls/ hr Q24H IV 03/28/25 09:15 04/08/25 18:37 0.938 MLS/HR Amiodarone HCl 200 mg Q12HR PO 03/29/25 10:00 04/09/25 21:37 200 MG Nystatin 1 applic DAILY TOP 04/01/25 10:00 04/09/25 09:05 1 APPLIC Multivit/Ca Carb/ B Cmplx/FA/Prenat 1 tab DAILY PO 04/03/25 10:00 04/09/25 09:03 1 TAB Ferrous Sulfate 325 mg BIDWM PO 04/03/25 18:00 04/09/25 18:12 325 MG Midodrine 10 mg TID@0600,1200,1800 PO 04/04/25 12:00 04/10/25 06:01 10 MG Albuterol 2.5 mg Q4HR NEB 04/06/25 14:00 04/10/25 06:02 2.5 MG Ipratropium [place] 0.5 mg Q4HR NEB 04/06/25 14:00 04/10/25 06:02 0.5 MG Ertapenem 1 gm/ Sodium Chloride 50 ml @ 100 mls/hr DAILY IV 04/08/25 14:00 04/09/25 09:32 100 MLS/HR Bumetanide 3 mg BIDD IV 04/08/25 18:00 04/10/25 05:58 3 MG Amino Acids 0 ml @ 0 mls/hr PER PHARMACY IV 04/09/25 09:00 Levothyroxine Sodium 50 mcg DAILY IV 04/09/25 10:00 04/09/25 10:47 50 MCG Fat Emulsion Intravenous 100 ml/Sodium Chloride 20 meq/ Sodium Phosphate 20 meq/Potassium Chloride 20 meq/ Magnesium Sulfate 6 meq/ Multivitamins 10 ml/Chromium/ Copper/Manganese/ Zinc 1 ml/Amino Acids/Dextrose/ Purified Water 1,432.5 ml @ 59.997 mls/hr [id number] IV 04/09/25 22:00 04/10/25 21:59 04/09/25 21:46 59.997 MLS/HR laboratory and microbiology Laboratory Tests 04/10/25 02:55 Test 04/10/25 02:55 Range/Units Serum Glucose 110 H 74-106 mg/dL Assessment/Plan Patient is a 74-year-old female who was admitted on March 20, 2025 for abdominal pain/nausea/vomiting. She is admitted to ICU for septic shock. On March 24, 2025, cardiology was involved for cardiac aspects of care. Patient is known to our practice from before and previous admissions. She is known to have significant alcohol abuse (drinks whiskey every day) and also history of pulmonary hypertension/type 2 pulmonary hypertension, diastolic heart failure. Does have poor functional capacity and is bed-bound. Is significantly morbidly obese. Does have baseline history of atrial fibrillation and is on Eliquis as outpatient. Is found to have septic shock and possible pelvic abscess. Is seen by surgery/Urology/pulmonary/GI. Denies chest pains. Denies palpitations. Is noncompliant with medication and followups. While being managed in ICU was found to have atrial fibrillation with RVR. She mentions that she does go to [employer] stuff[employer] regularly. She has had multiple surgeries in the bilateral feet. She also has history of COPD/asthma with chronic respiratory failure (on home oxygen). Morbidly obese. Not in acute distress. No JVD. Mucosa is dry. Mucosa is pink. No JVD. No carotid bruit. Not using accessory muscles of breathing. Scattered rhonchi in the lungs is heard. Cardiac: Irregular, no thrill. Abdomen is obese and soft. There is no gross hepatomegaly, but it is presence can not be ruled out (body habitus, morbidly obese). There is 3+ edema in bilateral lower extremities which extends to abdominal wall. Past medical history includes morbid obesity, atrial fibrillation (on Eliquis as outpatient), COPD/asthma with chronic respiratory failure on home oxygen, morbid obesity, hypertension, hyperlipidemia, chronic lymphedema, Diastolic heart failure with type 2 pulmonary hypertension, rheumatoid arthritis, osteoarthritis, peripheral vascular disease, CKD (stage IV), anemia, alcohol abuse, neuropathy, gout, old history of right and left foot fracture and their management, status post right knee replacement, status post , bed-bound at baseline and functional quadriplegia. Patient drinks whiskey daily. Goes to Nephrology regularly. Reportedly, there has been some concern about going to have fistula creation on preparation for dialysis? Echocardiogram of January 03 2024 (performed in [facility]) revealed ejection fraction of 60%, mild biatrial enlargement, mild MR/TR and right ventricular systolic pressure of 31 mm Hg. Echocardiogram of (performed in [facility]) revealed: EF of 50 to 55%, Dilated right ventricle with normal systolic function. Severe biatrial enlargement. Mild AI, mild to moderate MR, moderate TR and RVSP of 51 mmHg. Ascending Aorta was 3.7 cm. Echocardiogram of November 09, 2024 revealed ejection fraction of 72%, mild right ventricular enlargement, moderate biatrial enlargement, mild to moderate tricuspid regurgitation, mild mitral regurgitation, right ventricular systolic pressure 54 mm Hg Echocardiogram of February 23, 2025 revealed ejection fraction of around 50%, mild concentric left ventricular hypertrophy, right ventricular enlargement with preserved systolic function. Biatrial enlargement, mild aortic insufficiency, [id number] mitral regurgitation and tricuspid regurgitation. IVC was significantly dilated. Right ventricular systolic pressure of of 55 mm Hg Hemoglobin: 6.7 - 8.6 - 8.1 - 7.6 - 7.9 - 7.7 - 7.8 - 7.8 - 7.6 - 7.5 - 7.1 - 7.0 - 8.5 - 8.2 - 7.6 - 7.7 - 7.5 - 7.1 - 7.0 - 6.8 - 7.9 - 7.6 - 7.8 - 7.6 Creatinine: 3.29 - 2.63 - 2.77 - 2.59 - 2.13 - 1.98 - 1.98 - 2.47- 2.98 - 3.36 - 3.56 - 3.83 - 4.12 - 4.27 - 4.67 - 4.54 - 2.92 - 2.91 - 2.98 - 2.06 - 2.36 - 2.49 - 1.96 - 2.34 Potassium: 3.9 - 3.4 - 3.8 - 3.3 - 3.4 - 3.9 - 3.5 - 3.5 - 3.3 - 3.4 - 3.7 - 3.8 - 4.0 - 4.3 - 4.0 - 3.6 - 3.3 - 3.5 - 3.9 - 3.9 - 4.0 - 3.9 - 3.7 - 3.3 Troponin (high sensitive): 32 - 31 - 34 TSH: 0.17 - 0.15 T3: 0.40 (low) T4: 5.7 Free T4: 1.27 Free T3: 1.55 (low) Urine and Aspirate culture: ESBL E-coli Chest x-ray revealed: IMPRESSION: Cardiomegaly. Repeat chest x-ray revealed: IMPRESSION: 1. Cardiomegaly with increased interstitial prominence suggestive of CHF exacerbation. 2. Pulmonary arterial hypertension. Repeat chest x-ray revealed: IMPRESSION: Cardiomegaly with mild pulmonary congestion. . Repeat chest x-ray revealed: IMPRESSION: Cardiomegaly with pulmonary congestion and edema. Superimposed pneumonia cannot be excluded. Repeat chest x-ray revealed: IMPRESSION: Worsening right lower lung airspace disease. Suggestion of small bilateral pleural effusions. Repeat chest xray revealed: IMPRESSION: No significant interval change Repeat chest xry revealed: IMPRESSION: 1. Right internal jugular hemodialysis catheter in place with tip at the cavoatrial junction. 2. Right internal jugular catheter in place unchanged 3. Findings suggest worsening airspace disease in probable congestive failure or volume overload. Repeat chest xry revealed: IMPRESSION: Similar lung aeration. Small bilateral pleural effusion. Cardiomegaly. Abdominal ultrasound revealed: IMPRESSION: Small left hydronephrosis Renal scan revealed: IMPRESSION: Bilateral renal obstruction is present which is not response to Lasix administration suggesting that the kidney may be minimally functional. Abdomen and pelvic CT scan revealed: IMPRESSION: Moderate left hydroureteronephrosis. Suggestion of possible small abscess formation in the left hemipelvis associated with the sigmoid colon measuring 5.7 cm. This may represent site of ureteral obstruction. Clinical correlation advised. Examination is limited secondary to lack of intravenous and oral contrast administration. Abdomen and pelvis CT revealed: IMPRESSION: Sigmoid colonic diverticulitis with an adjacent 6 cm fluid collection with gas, could be an abscess. Probable fistula of the sigmoid to the fluid collection, and possibly with the urinary bladder, which is decompressed with a Tijerina. Possible trace left hydronephrosis with perinephric fat stranding. Repeat CT of abdomen and pelvis revealed: IMPRESSION: Small to moderate bilateral pleural effusions and associated compressive atelectasis / consolidation. Left lower quadrant pelvic drain in satisfactory position with significant interval decrease in size of abscess currently measuring 2.2 cm, previously 5.[address] guided abscess drainage: IMPRESSION: CT guided placement of 8 spanish pigtail drain into a left hemipelvic abscess with 30 mL purulent fluid aspirated. PLAN: Routine tube care. Renal ultrasound revealed: IMPRESSION: Unremarkable renal ultrasound without hydronephrosis seen. EKG revealed atrial fibrillation with RVR Tele reveals atrial fibrillation with RVR Echocardiogram revealed: Left ventricle: Mild concentric left ventricular hypertrophy was seen. LVEF was around 50%. Right ventricle was mildly dilated with reduced systolic function. Both atria were dilated. Aortic valve was not well visualized. There was no aortic insufficiency/stenosis. There was mild mitral regurgitation. There was [id number] tricuspid regurgitation. Pulmonary valve was not well visualized. Right ventricular systolic pressure was assessed at 50 mm Hg. IVC was dilated. There was no pericardial effusion. Patient is a 74-year-old female with known history of diastolic heart failure with type 2 pulmonary hypertension who presented with abdominal pain. He is admitted to ICU with septic shock. Did have thrombocytopenia which slowly improved. Was significantly anemic and was transfused PRBC. There has been question about pelvic abscess and the patient is on antibiotics. Patient is being followed by surgery/Urology/pulmonary/GI. It is of note that the patient does have history of significant alcohol abuse (drinks good amount of whiskey daily) which could contribute to to some component of the clinical picture. Does have baseline history of pulmonary hypertension. Usually is on some amount of diuretic (Bumex) as outpatient. Clinically, the patient does have dry mucosa and maybe behind fluids at the time of evaluation. Does have baseline poor functional capacity. Does have history of recent sepsis. s/p CT guided abscess drainage. Seen by Nephrology. Diuretics are on hold. TFT are in favor of subclinical thyroid problem. Still with poor kidney function. Nephrology suggested hemodialysis, patient is hesitant. Significant anemia, status post PRBC transfusion Thrombocytopenia, resolved Septic shock SCOT on CKD Hydronephrosis Pelvic abscess Transaminitis Acute on chronic diastolic heart failure Pulmonary Hypertension, type 2 Alcohol abuse Morbid obesity Poor functional capacity Bed-bound at baseline Atrial fibrillation with RVR Hyperlipidemia Osteoarthritis Rheumatoid arthritis Peripheral vascular disease Abdominal abscess? s/p CT guided abscess drainage s/p PRBC transfusion Cardiac suggestion for management: Manage in ICU Follow-up electrolytes and kidney function tests and correct abnormalities Full anticoagulation (on Eliquis presently), long-term Septic shock, still on pressure support and IV antibiotics On Midodrine Started on HD On oral amiodarone Off Pressor support for 1 day Evaluation and management of sepsis/infection as per primary team Evaluation and management of alcohol abuse/prevention of withdrawal as per primary team Evaluation and management of pelvic abscess/hydronephrosis as per primary team/surgery/Urology Further evaluation and management depends on the above and clinical course A total of 75 minutes was spent reviewing the patient record, examining the patient, making a diagnostic and therapeutic plan, discussing this plan with medical personnel, following up on diagnostic studies and following the patient for clinical stability excluding any and all procedures. At least 50% of this time was spent in direct, [id number] contact. Thank you for allowing me to participate in this patient's care. Further recommendations will depend on patient's clinical course. Please do not hesitate to contact me if you have any questions or concerns. This medical document was created using electronic medical record system with [employer] dictation system. Although this document has been carefully reviewed, there may still be some phonetic and typographical errors. These areas are purely typographical due to the imperfection of the software programs, and do not reflect any compromise in the patient's medical care. Dietary Evaluation Review Comments: Renal Specific 60g CCHO-60 Cardiac Diet d/t SCOT over CKD and low GFR Expected Outcomes/Goals: less uremic symptoms, better weight management Plan discussed with: Other (nurse) CC Plasma Assessment Blood Product Administration S: [id number] AUSTIN ROMERO MD Apr 10, 2025 08:57
--- NOTE | 2025-04-10 09:32 | DVHPN2 ---
Subjective Denies any symptoms at this time Reviewed: Care Plan, H&P, Labs, Medications, Previous Orders, Radiology Changes from previous H/P or p: No Changes General: Per HPI Eyes: No Pain, No Vision change, No Conjunctivae inflammation, No Eyelid inflammation, No Other, No Redness ENT: No Ear pain, No Ear discharge, No Nose pain, No Nose discharge, No Nose congestion, No Mouth pain, No Mouth swelling, No Throat pain, No Throat swelling, No Other Cardiovascular: No Chest Pain, No Palpitations, No Orthopnea, No Paroxysmal Noc. Dyspnea, No Edema, No Lt Headedness, No Other Respiratory: No Cough, No Dry, No Shortness of breath, No SOB with excertion, No Wheezing, No Hemoptysis, No Pleuritic Pain, No Sputum, No Other Gastrointestinal: Nausea, Vomiting, Abdominal Pain Genitourinary: No Dysuria, No Frequency, No Incontinence, No Hematuria, No Retention, No Other Musculoskeletal: No other, No neck pain, No shoulder pain, No arm pain, No back pain, No hand pain, No leg pain, No foot pain Skin: No Rash, No Lesions, No Jaundice, No Bruising, No Other Objective Vitals Vital Signs Date Time Temp Pulse Resp B/P (MAP) Pulse Ox O2 Delivery O2 Flow Rate FiO2 04/10/25 09:27 96 15 98 04/10/25 09:21 Nasal Cannula* 3 32 04/10/25 06:45 103/52 (69) 04/10/25 04:00 98.4 98.4 Intake/Output Intake and Output 04/10/25 07:00 Intake Total 754.973 ml Output Total 300 ml Balance 454.973 ml Intake Oral 150 ml IV Total 604.973 ml Output Urine Total 250 ml Drainage Total 50 ml General Appearance: Alert, Oriented X3, Cooperative, Other HEENT: Atraumatic, PERRLA Cardiovascular: Normal S1, Normal S2, Other Abdomen: Normal bowel sounds, Other Extremities: No edema, Normal pulses Neuro: Sensation intact, Cranial nerves 3-12 NL Skin: Dry, Intact Psych/Mental Status: Mental status NL, Mood NL Medications Current Medications Medications Dose Ordered Sig/Sravan Route Start Time Stop Time Status Last Admin Dose Admin Acetaminophen/ Hydrocodone Bitart 1 tab Q4HP PRN PO 03/20/25 12:15 04/10/25 00:44 1 TAB Ondansetron HCl 4 mg Q4HP PRN IV 03/20/25 12:15 03/26/25 08:18 4 MG Docusate Sodium 100 mg BIDPRN PRN PO 03/20/25 12:15 Acetaminophen 650 mg Q6HP PRN PO 03/20/25 12:15 03/28/25 10:59 650 MG Nitroglycerin 0.4 mg Q5MINP PRN SL 03/20/25 12:15 03/25/25 09:26 0.4 MG Morphine Sulfate 2 mg Q30M PRN IV 03/20/25 12:15 03/25/25 09:43 2 MG Allopurinol 100 mg DAILY PO 03/21/25 10:00 04/09/25 09:04 100 MG Apixaban 2.5 mg BID PO 03/20/25 22:00 04/09/25 21:37 2.5 MG Cilostazol 100 mg BID PO 03/20/25 22:00 04/09/25 21:37 100 MG Patient Own Medication 1 tab DAILY PO 03/21/25 10:00 UNV Patient Own Medication 1 tab DAILY PO 03/21/25 10:00 UNV Gabapentin 300 mg DAILY PO 03/21/25 10:00 04/09/25 09:03 300 MG Diphenhydramine HCl 50 mg [id number] PRN PO 03/21/25 16:45 03/21/25 22:57 50 MG Patient Own Medication 1 tab BID PO 03/21/25 22:00 04/09/25 21:38 1 TAB Throat Lozenges 1 liv Q2HP PRN MT 03/23/25 04:00 03/23/25 14:52 1 LIV Pantoprazole Sodium 40 mg DAILY IV 03/26/25 10:00 04/09/25 09:03 40 MG Magnesium Oxide 400 mg DAILY PO 03/27/25 10:00 04/09/25 09:04 400 MG Ertapenem 0.5 gm DAILY IM 03/27/25 11:15 Cancel Diagnostic Test (Pha) 1 strip Q6HR 03/27/25 18:00 04/10/25 05:57 1 STRIP Insulin Human Regular FOLLOW SLIDING SCALE Q6HR SC 03/27/25 18:00 04/10/25 05:55 2 UNITS Dextrose 50 ml UD IV 03/27/25 12:30 Norepinephrine Bitartrate 250 ml @ 0.938 mls/ hr Q24H IV 03/28/25 09:15 04/08/25 18:37 0.938 MLS/HR Amiodarone HCl 200 mg Q12HR PO 03/29/25 10:00 04/09/25 21:37 200 MG Nystatin 1 applic DAILY TOP 04/01/25 10:00 04/09/25 09:05 1 APPLIC Multivit/Ca Carb/ B Cmplx/FA/Prenat 1 tab DAILY PO 04/03/25 10:00 04/09/25 09:03 1 TAB Ferrous Sulfate 325 mg BIDWM PO 04/03/25 18:00 04/09/25 18:12 325 MG Midodrine 10 mg TID@0600,1200,1800 PO 04/04/25 12:00 04/10/25 06:01 10 MG Albuterol 2.5 mg Q4HR NEB 04/06/25 14:00 04/10/25 09:21 2.5 MG Ipratropium [place] 0.5 mg Q4HR NEB 04/06/25 14:00 04/10/25 09:21 0.5 MG Ertapenem 1 gm/ Sodium Chloride 50 ml @ 100 mls/hr DAILY IV 04/08/25 14:00 04/09/25 09:32 100 MLS/HR Bumetanide 3 mg BIDD IV 04/08/25 18:00 04/10/25 05:58 3 MG Amino Acids 0 ml @ 0 mls/hr PER PHARMACY IV 04/09/25 09:00 Levothyroxine Sodium 50 mcg DAILY IV 04/09/25 10:00 04/09/25 10:47 50 MCG Fat Emulsion Intravenous 100 ml/Sodium Chloride 20 meq/ Sodium Phosphate 20 meq/Potassium Chloride 20 meq/ Magnesium Sulfate 6 meq/ Multivitamins 10 ml/Chromium/ Copper/Manganese/ Zinc 1 ml/Amino Acids/Dextrose/ Purified Water 1,432.5 ml @ 59.997 mls/hr [id number] IV 04/09/25 22:00 04/10/25 21:59 04/09/25 21:46 59.997 MLS/HR Laboratory Results Laboratory Tests 04/10/25 02:55 Chemistry Test 04/10/25 02:55 Albumin 3.5 g/dL (3.2-4.8) Calcium Level 9.3 mg/dL (8.7-10.4) Magnesium Level 2.0 mg/dL (1.6-2.6) Phosphorus Level 2.8 mg/dL (2.4-5.1) Total Protein 6.2 g/dL (5.7-8.2) Coagulation Test 04/10/25 02:55 Prothrombin Time 17.8 sec (9.3-11.8) H Prothrombin Time INR 1.78 (0.9-1.15) H LFT Test 04/10/25 02:55 Alanine Aminotransferase (ALT) < 9 U/L (7-40) Alkaline Phosphatase 98 U/L (46-116) Aspartate Amino Transferase (AST) 12 U/L (13-40) L Total Bilirubin 1.4 mg/dL (0.2-1.0) H Urinalysis Test 03/20/25 09:34 Urine Color Colorless (Yellow) Urine Clarity Turbid (Clear) H Urine pH 5.0 (5.0-9.0) Urine Specific [place] 1.015 (1.001-1.035) Urine Protein Negative (Negative) Urine Ketones Negative (Negative) Urine Blood Negative /uL (Negative) Urine Nitrite Negative (Negative) Urine Bilirubin Negative (Negative) Urine Urobilinogen Normal mg/dL (Negative) Urine Leukocyte Esterase 3+ /uL (Negative) Urine RBC 1 /hpf (0 - 4) Urine Microscopic WBC 255 /HPF (0-5) H Urine Squamous Epithelial Cells Few /hpf (<5) Urine Bacteria Few /hpf (None Seen) H Urine Glucose Normal mg/dL (Normal) Microbiology Microbiology Date/Time Source Procedure Growth Status 03/26/25 15:00 Aspirate Gram Stain - Final Complete 03/26/25 15:00 Body Fluid Culture - Final Escherichia coli - ESBL Enterobacter cloacae Proteus mirabilis Complete 03/23/25 04:30 Throat Nose/Throat Culture - Final Complete 03/21/25 18:00 Urine - Catheterized Urine Culture - Final Escherichia coli - ESBL Klebsiella pneumoniae - ESBL Complete 03/20/25 21:52 Nose MRSA Screen - Final Complete Labs and/or images reviewed: Labs reviewed by me, Image(s) reviewed by me Assessment/Plan Assessment/Plan Impression: -septic shock -diverticular abscess -AFib with RVR -morbid obesity -obstructive uropathy -CKD stage 4 -acute kidney injury, vasomotor nephropathy -acute on chronic systolic and diastolic heart failure -bed-bound status -complicated cystitis with ESBL in the urine. Plan: Events: Denies any pain. Heart rate controlled. Off norepinephrine. Continue efforts to transfer to LTAC -social service consultation to transfer to long-term acute care Facility -norepinephrine p.r.n. -continue midodrine -continue Invanz -NPO except meds and TPN -continue anticoagulation with Eliquis -repeat labs in a.m. Critical care time spent with patient discussing and formulating plan of care: 40 minutes. This does not include time spent performing procedures. This medical document was created using an electronic medical record system with [employer] dictation system. Although this document has been carefully reviewed, there may still be some phonetic and typographical errors. These areas are purely typographical due to imperfections of the software programs, and do not reflect any compromise in the patient's medical care. Plan discussed with: Patient, Other (RN) My Orders Orders - GONZALO ASKEW NP Procedure Category Date Status Time Amino Acid PHA 04/09/25 In Process Infusion... W/Fat 22:00 Tpn Per Pharmacy EBONY 04/09/25 In Process 22:00 * Picc Line Consult CONS 04/09/25 Transmitted 15:05 Date of Service: Apr 10, 2025 Billing Provider: GONZALO ASKEW NP Common Visit Codes: [id number] CARE 30-74 MIN GONZALO ASKEW NP Apr 10, 2025 09:32
[2025-04-10] MEDS: POTASSIUM CHL 20MEQ/100ML 100 ML IV SCH (12:26)
--- NOTE | 2025-04-10 15:05 | DVH ---
EXAM: XY CHEST PORTABLE Indication: picc line insertion Technique: Single frontal view of the chest was obtained Comparison: XY CHEST PORTABLE on DOS: 04/08/25, XY CHEST XRAY 1 VIEW on DOS: 04/04/25, XY CHEST PORTABLE on DOS: 03/30/25, XY CHEST PORTABLE on DOS: 03/24/25, XY CHEST PORTABLE on DOS: 03/23/25 FINDINGS: Lines and Tubes: Left PICC tip projects over the superior vena cava. Right tunneled dialysis cathete r tip projects over the superior vena cava. Lungs: Bibasilar opacities. Pulmonary edema. Pleura: Small bilateral pleural effusions. No pneumothorax. Cardiomediastinal contours: Cardiomegaly Bones: No acute osseous abnormality. IMPRESSION: Interval placement of left PICC with tip projecting over the superior vena cava. Otherwise no signif icant change compared to prior exam.
--- NOTE | 2025-04-10 15:41 | DVHDS2 ---
Discharge Summary Date of Admission Mar 20, 2025 at 12:08 Date of Discharge: Apr 10, 2025 Admitting Diagnosis Symptomatic anemia Labs/Diagnostic Data: Laboratory Results Test 04/10/25 12:14 04/10/25 02:55 04/09/25 03:00 04/06/25 03:11 POC Glucose 146 mg/dl (70-106) White Blood Count 11.0 10^3/uL (4.4-10.8) Red Blood Count 2.64 10^6/uL (4.0-5.20) Hemoglobin 7.6 g/dL (12.2-16.2) Hematocrit 23.7 % (36.0-46.0) Mean Corpuscular Volume 89.7 fL (80.0-100.0) Mean Corpuscular Hemoglobin 28.6 pg (28.0-32.0) Mean Corpuscular Hemoglobin Concent 31.8 g/dL (32.0-36.0) Red Cell Distribution Width 22.1 % (11.8-14.3) Platelet Count 248 10^3/uL (140-450) Mean Platelet Volume 7.6 fL (6.9-10.8) Neutrophils (%) (Auto) 82.3 % (37.0-80.0) Lymphocytes (%) (Auto) 8.1 % (10.0-50.0) Monocytes (%) (Auto) 7.8 % (0.0-12.0) Eosinophils (%) (Auto) 1.3 % (0.0-7.0) Basophils (%) (Auto) 0.5 % (0.0-2.0) Neutrophils # (Auto) 9.1 10 ^3/uL (1.6-8.6) Lymphocytes # (Auto) 0.9 10 ^3/uL (0.4-5.4) Monocytes # (Auto) 0.9 10 ^3/uL (0-1.3) Eosinophils # (Auto) 0.1 10 ^3/uL (0-0.8) Basophils # (Auto) 0.1 10 ^3/uL (0-0.2) Nucleated Red Blood Cells 0.1 % Prothrombin Time 17.8 sec (9.3-11.8) Prothrombin Time INR 1.78 (0.9-1.15) Sodium Level 139 mmol/L (136-145) Potassium Level 3.3 mmol/L (3.5-5.1) Chloride Level 100 mmol/L (98-107) Carbon Dioxide Level 29 mmol/L (20-31) Anion Gap 10 (5-15) Blood Urea Nitrogen 40 mg/dL (9-23) Creatinine 2.34 mg/dL (0.550-1.02) Glomerular Filtration Rate Calc 21 mL/min (>90) BUN/Creatinine Ratio 17.1 (10.0-20.0) Serum Glucose 110 mg/dL (74-106) Calcium Level 9.3 mg/dL (8.7-10.4) Phosphorus Level 2.8 mg/dL (2.4-5.1) Magnesium Level 2.0 mg/dL (1.6-2.6) Total Bilirubin 1.4 mg/dL (0.2-1.0) Aspartate Amino Transferase (AST) 12 U/L (13-40) Alanine Aminotransferase (ALT) < 9 U/L (7-40) Alkaline Phosphatase 98 U/L (46-116) Total Protein 6.2 g/dL (5.7-8.2) Albumin 3.5 g/dL (3.2-4.8) Triglycerides Level 58 mg/dL (< 150) Iron Level 49 ug/dL (50-170) Total Iron Binding Capacity 154 ug/dL (250-425) Percent Iron Saturation 31.8 % (15-50) Ferritin 570.2 ng/mL (10-291) Test 04/04/25 03:00 04/03/25 11:27 03/26/25 15:00 03/26/25 07:34 Hepatitis B Surface Antibody Negative (Negative) Hepatitis B Core Total Antibody Negative (Negative) Hepatitis B Surface Antigen Negative (Negative) Body Fluid Glucose mg/dL (.) Activated Partial Thromboplast Time 61.1 SEC (24.5-34.5) Test 03/25/25 08:55 03/25/25 03:18 03/24/25 18:00 03/23/25 04:30 Free Thyroxine (T4) Calculated 1.27 ng/dL (0.89-1.76) Thyroxine (T4) 5.7 ug/dL (4.5-12.0) Free Triiodothyronine (T3) pg/mL 1.55 pg/mL (2.3-4.2) Total Triiodothyronine (TT3) 0.40 ng/mL (0.60-1.81) Thyroid Stimulating Hormone (TSH) 0.15 uIU/mL (0.55-4.78) Blood Gas Specimen Type Arterial Blood Gas Sample Site Right radial Blood Gas Patient Temperature 37.0 Arterial Blood Date Drawn [id number] Arterial Blood pH 7.405 (7.350-7.450) Arterial Blood Partial Pressure CO2 37.8 mmHg (32.0-45.0) Arterial Blood Partial Pressure O2 103.6 mmHg (83.0-108.0) Arterial Blood HCO3 23.2 mmol/L (21.0-28.0) Arterial Blood Oxygen Saturation 97.4 % (94.0-98.0) Arterial Blood Base Excess -1.3 mmol/L (-2.0-3.0) Arterial Blood Oxyhemoglobin 96.7 % (94.0-98.0) Arterial Blood Carboxyhemoglobin 0.3 % (0.5-1.5) Arterial Blood Methemoglobin 0.4 % (0.0-1.5) [place] Test Yes Blood Gas Total Hemoglobin 9.50 g/dL (12.0-16.0) Blood Gas Modality Nasal cannula FiO2 % 32.0 Group A Streptococcus Rapid Negative Test 03/23/25 04:20 03/21/25 05:21 03/20/25 09:34 03/20/25 08:30 SARS-CoV-2 Antigen (Rapid) Negative (NEGATIVE) Amylase Level 21 U/L (30-118) Lipase 19 U/L (12-53) Urine Color Colorless (Yellow) Urine Clarity Turbid (Clear) Urine pH 5.0 (5.0-9.0) Urine Specific [place] 1.015 (1.001-1.035) Urine Protein Negative (Negative) Urine Ketones Negative (Negative) Urine Blood Negative /uL (Negative) Urine Nitrite Negative (Negative) Urine Bilirubin Negative (Negative) Urine Urobilinogen Normal mg/dL (Negative) Urine Leukocyte Esterase 3+ /uL (Negative) Urine RBC 1 /hpf (0 - 4) Urine Microscopic WBC 255 /HPF (0-5) Urine Squamous Epithelial Cells Few /hpf (<5) Urine Bacteria Few /hpf (None Seen) Urine Glucose Normal mg/dL (Normal) Troponin I High Sensitivity 34 ng/L (</=34) Test 03/20/25 05:31 Lactic Acid Level 1.2 mmol/L (0.4-2.0) Other Laboratory Tests 04/10/25 02:55 Brief Hx & Hospital Course: History of Present Illness Zoila Gold is a 74-year-old female with past medial history of COPD, 3L/NC home oxygen, CHF, hypertension, hyperlipidemia, diabetes, and chronic renal disease, who came to the hospital for abdominal pain. Patient states she has been experiencing abdominal pain with associated nausea and vomiting for about 2-3 days. The pain was worsening and she was not able to eat prompting her to come to the hospital. While in the ER she was found to be anemic, hypotensive, and septic. Patient denies any signs/symptoms of bleeding or any recent sick contacts. Course of hospitalization: CT scan of the abdomen and pelvis reveals diverticular abscess. Patient also had elevated white blood cell count. Patient had Interventional Radiology drain placement. Fluids grew ESBL. Patient's antibiotics were changed to Invanz. Patient's renal function worsen, with the patient having tunneled dialysis catheter placed as well as initiation of hemodialysis. [employer] consultation was placed regarding AFib with RVR. AFib now controlled rate which has been change to oral amiodarone. Shock improved, with the patient on midodrine and intermittently on norepinephrine. Patient had repeat CT scan with residual abscess around drain. Surgical consultation was placed, with the patient not being found a suitable candidate for any surgical intervention. I nfectious disease consultation has been placed for long-term antibiotic therapy. Patient had PICC line placed. Given patient's plan of care, patient will be transferred to long-term acute care facility for continuation of IV antibiotic therapy, reassessment of diverticular abscess with possible removal of drain and later time. Patient was agreeable with discharge plan. All questions answered. Physical examination General: Alert and Oriented x3. No acute distress. Well-nourished. Obese Eyes: EOMI. Anicteric. HENT: Moist mucous membranes. Lungs: Clear to auscultation bilaterally. No accessory muscle use. Cardiovascular: Regular rate and rhythm. No murmur. No JVD. Abdomen: Soft, non-tender and non-distended. No palpable masses. Left lower quadrant drain Extremities: No edema. Non-tender. Skin: No rashes or lesions. Warm. Neurologic: No focal neurological deficits. CN II-XII grossly intact, but not individually tested. Psychiatric: Cooperative. Appropriate mood and affect. Total time spent with patient discussing and formulating plan of care: 35 minutes. This medical document was created using an electronic medical record system with [employer] dictation system. Although this document has been carefully reviewed, there may still be some phonetic and typographical errors. These areas are purely typographical due to imperfections of the software programs, and do not reflect any compromise in the patient's medical care. Consults/Reason for consult Gastroenterology: Diverticular abscess General surgery: Diverticular abscess Cardiology: AFib with RVR Interventional Radiology: Drain placement Nephrology: ESRD Condition at Discharge: Poor Final Diagnosis/Problems List Sepsis secondary to diverticular abscess Secondary diagnosis: -septic shock -diverticular abscess -AFib with RVR -morbid obesity -obstructive uropathy -CKD stage 4 -acute kidney injury, vasomotor nephropathy -acute on chronic systolic and diastolic heart failure -bed-bound status -complicated cystitis with ESBL in the urine. Discharge Disposition: Acute Care Facility Discharge Instruct/Medications Diet: See Comment Diet comment: NPO Activity: No Restrictions, As Tolerated Follow Up/Referral: Per accepting provider Medications: Refer to medication reconciliation form Scheduled Albuterol Sulfate (Ventolin Mdi), 90 MCG IN Q6HP, (Reported) Allopurinol (Allopurinol), 100 MG PO DAILY, (Reported) Amiodarone HCl (Amiodarone HCl), 1 TAB PO BID, (Reported) Amlodipine Besylate (Amlodipine Besylate), 5 MG PO DAILY, (Reported) Apixaban Base (Eliquis), 1 TAB PO BID, (Reported) Atorvastatin Calcium (Atorvastatin Calcium), 1 TAB PO DAILY, (Reported) Bumetanide (Bumetanide), 1 TAB PO BID, (Reported) Cilostazol (Cilostazol), 100 MG PO BID, (Reported) Clobetasol Propionate (Clobetasol Propionate), 1 APPLIC TOP BID, (Reported) Fluticasone-Salmeterol (Advair Diskus 500/50), 1 PUFF INH BID, (Reported) Fluticasone-Salmeterol (Fluticasone Propionate/SA 500-50 Mcg/Dose), 1 PUFF PO BID, (Reported) Furosemide (Furosemide), 1 TAB PO DAILY, (Reported) Gabapentin (Gabapentin), 300 MG PO BID, (Reported) Hydroxychloroquine Sulfate (Plaquenil), 1 TAB PO DAILY, (Reported) Lactulose (Lactulose), 15 ML PO DAILY, (Reported) Levothyroxine Sodium (Levothyroxine Sodium), 1 TAB PO DAILY, (Reported) Meclizine HCl (Meclizine 25), 25 MG PO BID, (Reported) Meclizine HCl (Meclizine Hydrochloride), 1 TAB PO DAILY PRN, (Reported) Methocarbamol (Methocarbamol), 750 MG PO BID, (Reported) Midodrine Hcl (Midodrine Hcl), 1 TAB PO BID, (Reported) Pantoprazole Sodium (Pantoprazole Sodium), 40 MG IV DAILY, (Reported) Pantoprazole Sodium Sesquihydr (Pantoprazole Sodium), 1 TAB PO DAILY, (Reported) Potassium Chloride (Potassium Chloride ER), 1 TAB PO BID, (Reported) Prednisone (Prednisone), 20 MG PO BID Ropinirole Hydrochloride (Ropinirole Hcl), 1 TAB PO BID, (Reported) Sotalol Hcl (Sotalol Hcl), 0.5 TAB PO BID, (Reported) Spironolactone (Spironolactone), 1 TAB PO DAILY, (Reported) Miscellaneous Medications Loperamide HCl (Imodium A-D), 1 MG PO, (Reported) 36 Discharge Statement: "Patient was advised to return to the ER or call 911 if any headaches, dizziness, shortness of breath, chest pain, abdominal pain, bleeding, fevers, or worsening of medical condition. Patient was counseled about treatment plan, medications, possible side effects, patientverbalized understanding. All questions were answered to the best of my ability. This discharge took greater then 30 minutes in planning, reviewing documentation, counseling the patient, and discussing with other team members." ASSESSMENT ASSESSMENT Assessment Sepsis secondary to diverticular abscess Date of Service: Apr 10, 2025 Billing Provider: GONZALO ASKEW NP Common Visit Codes: 23889-RUH/OBS DISCH DAY >30min GONZALO ASKEW NP Apr 10, 2025 15:41
--- NOTE | 2025-04-10 18:17 | DVHPN2 ---
Progress Note - Dictate Date Seen: Apr 10, 2025 Has the PT tested + for MRSA If YES, has PT been informed?: No Medical Necessity Reason Pt with a Central, PICC or Fol: Yes The following are medically ne: Tijerina Catheter Reason for tijerina catheter: Strict I&O vital signs Vital Sign Date Time Temp Pulse Resp B/P (MAP) Pulse Ox O2 Delivery O2 Flow Rate FiO2 04/10/25 16:00 105 16 107/58 (74) 93 04/10/25 16:00 Nasal Cannula* 3 32 04/10/25 08:00 97.8 97.8 Total Intake and Output 04/09/25 04/09/25 04/10/25 15:00 23:00 07:00 Intake Total 50 ml 74.997 ml 629.976 ml Output Total 200 ml 100 ml Balance 50 ml -125.003 ml 529.976 ml medications Current Medications Medications Dose Ordered Sig/Sravan Route Start Time Stop Time Status Last Admin Dose Admin Acetaminophen/ Hydrocodone Bitart 1 tab Q4HP PRN PO 03/20/25 12:15 04/10/25 00:44 1 TAB Ondansetron HCl 4 mg Q4HP PRN IV 03/20/25 12:15 03/26/25 08:18 4 MG Docusate Sodium 100 mg BIDPRN PRN PO 03/20/25 12:15 Acetaminophen 650 mg Q6HP PRN PO 03/20/25 12:15 03/28/25 10:59 650 MG Nitroglycerin 0.4 mg Q5MINP PRN SL 03/20/25 12:15 03/25/25 09:26 0.4 MG Morphine Sulfate 2 mg Q30M PRN IV 03/20/25 12:15 03/25/25 09:43 2 MG Allopurinol 100 mg DAILY PO 03/21/25 10:00 04/10/25 10:51 100 MG Apixaban 2.5 mg BID PO 03/20/25 22:00 04/10/25 10:49 2.5 MG Cilostazol 100 mg BID PO 03/20/25 22:00 04/10/25 10:48 100 MG Patient Own Medication 1 tab DAILY PO 03/21/25 10:00 UNV Patient Own Medication 1 tab DAILY PO 03/21/25 10:00 UNV Gabapentin 300 mg DAILY PO 03/21/25 10:00 04/10/25 10:49 300 MG Diphenhydramine HCl 50 mg [id number] PRN PO 03/21/25 16:45 03/21/25 22:57 50 MG Patient Own Medication 1 tab BID PO 03/21/25 22:00 04/10/25 10:00 1 TAB Throat Lozenges 1 liv Q2HP PRN MT 03/23/25 04:00 03/23/25 14:52 1 LIV Pantoprazole Sodium 40 mg DAILY IV 03/26/25 10:00 04/10/25 10:46 40 MG Magnesium Oxide 400 mg DAILY PO 03/27/25 10:00 04/10/25 10:48 400 MG Ertapenem 0.5 gm DAILY IM 03/27/25 11:15 Cancel Diagnostic Test (Pha) 1 strip Q6HR 03/27/25 18:00 04/10/25 12:10 1 STRIP Insulin Human Regular FOLLOW SLIDING SCALE Q6HR SC 03/27/25 18:00 04/10/25 12:18 2 UNITS Dextrose 50 ml UD IV 03/27/25 12:30 Norepinephrine Bitartrate 250 ml @ 0.938 mls/ hr Q24H IV 03/28/25 09:15 04/08/25 18:37 0.938 MLS/HR Amiodarone HCl 200 mg Q12HR PO 03/29/25 10:00 04/10/25 10:48 200 MG Nystatin 1 applic DAILY TOP 04/01/25 10:00 04/10/25 10:50 1 APPLIC Multivit/Ca Carb/ B Cmplx/FA/Prenat 1 tab DAILY PO 04/03/25 10:00 04/10/25 10:48 1 TAB Ferrous Sulfate 325 mg BIDWM PO 04/03/25 18:00 04/10/25 08:55 325 MG Midodrine 10 mg TID@0600,1200,1800 PO 04/04/25 12:00 04/10/25 12:10 10 MG Albuterol 2.5 mg Q4HR NEB 04/06/25 14:00 04/10/25 14:05 2.5 MG Ipratropium [place] 0.5 mg Q4HR NEB 04/06/25 14:00 04/10/25 14:05 0.5 MG Ertapenem 1 gm/ Sodium Chloride 50 ml @ 100 mls/hr DAILY IV 04/08/25 14:00 04/10/25 10:38 100 MLS/HR Bumetanide 3 mg BIDD IV 04/08/25 18:00 04/10/25 05:58 3 MG Amino Acids 0 ml @ 0 mls/hr PER PHARMACY IV 04/09/25 09:00 Levothyroxine Sodium 50 mcg DAILY IV 04/09/25 10:00 04/10/25 10:43 50 MCG Fat Emulsion Intravenous 100 ml/Sodium Chloride 20 meq/ Sodium Phosphate 20 meq/Potassium Chloride 20 meq/ Magnesium Sulfate 6 meq/ Multivitamins 10 ml/Chromium/ Copper/Manganese/ Zinc 1 ml/Amino Acids/Dextrose/ Purified Water 1,432.5 ml @ 59.997 mls/hr [id number] IV 04/09/25 22:00 04/10/25 21:59 04/09/25 21:46 59.997 MLS/HR Fat Emulsion Intravenous 200 ml/Sodium Chloride 30 meq/ Sodium Phosphate 10 meq/Potassium Chloride 40 meq/ Magnesium Sulfate 8 meq/ Multivitamins 10 ml/Chromium/ Copper/Manganese/ Zinc 1 ml/Amino Acids/Dextrose/ Purified Water 1,543 ml @ 64 mls/hr Q24H7M IV 04/10/25 22:00 04/11/25 21:59 laboratory and microbiology Laboratory Tests 04/10/25 02:55 Test 04/10/25 02:55 Range/Units Serum Glucose 110 H 74-106 mg/dL Assessment/Plan ,nImpression SCOT hypoxemia COPD pneumonia left hydronephrosis septic shock pt seen and examined in the ICU Events Low oxygen requirements On 3 liters nasal cannula Intermittently on Levophed drip S/p percutaneous drain placement for peritoneal abscess Labs and imaging studies reviewed management Supplemental oxygen keep sats above 90% bronchodilators for copd levophed as needed keep MAP above 65 mm Hg HD per nephrology continue antibiotics f/u cultures gi and dvt proph Dietary Evaluation Review Comments: Renal Specific 60g CCHO-60 Cardiac Diet d/t SCOT over CKD and low GFR Expected Outcomes/Goals: less uremic symptoms, better weight management Plan discussed with: Patient CC Plasma Assessment Blood Product Administration S: [id number] MD Apr 10, 2025 18:17
--- NOTE | 2025-04-10 18:28 | DVHPN2 ---
Progress Note - Dictate Date Seen: Apr 10, 2025 Has the PT tested + for MRSA If YES, has PT been informed?: No Medical Necessity Reason Pt with a Central, PICC or Fol: Yes The following are medically ne: Tijerina Catheter Reason for tijerina catheter: Strict I&O Subjective No new complaints vital signs Vital Sign Date Time Temp Pulse Resp B/P (MAP) Pulse Ox O2 Delivery O2 Flow Rate FiO2 04/10/25 16:00 105 16 107/58 (74) 93 04/10/25 16:00 Nasal Cannula* 3 32 04/10/25 08:00 97.8 97.8 Total Intake and Output 04/09/25 04/09/25 04/10/25 15:00 23:00 07:00 Intake Total 50 ml 74.997 ml 629.976 ml Output Total 200 ml 100 ml Balance 50 ml -125.003 ml 529.976 ml medications Current Medications Medications Dose Ordered Sig/Sravan Route Start Time Stop Time Status Last Admin Dose Admin Acetaminophen/ Hydrocodone Bitart 1 tab Q4HP PRN PO 03/20/25 12:15 04/10/25 00:44 1 TAB Ondansetron HCl 4 mg Q4HP PRN IV 03/20/25 12:15 03/26/25 08:18 4 MG Docusate Sodium 100 mg BIDPRN PRN PO 03/20/25 12:15 Acetaminophen 650 mg Q6HP PRN PO 03/20/25 12:15 03/28/25 10:59 650 MG Nitroglycerin 0.4 mg Q5MINP PRN SL 03/20/25 12:15 03/25/25 09:26 0.4 MG Morphine Sulfate 2 mg Q30M PRN IV 03/20/25 12:15 03/25/25 09:43 2 MG Allopurinol 100 mg DAILY PO 03/21/25 10:00 04/10/25 10:51 100 MG Apixaban 2.5 mg BID PO 03/20/25 22:00 04/10/25 10:49 2.5 MG Cilostazol 100 mg BID PO 03/20/25 22:00 04/10/25 10:48 100 MG Patient Own Medication 1 tab DAILY PO 03/21/25 10:00 UNV Patient Own Medication 1 tab DAILY PO 03/21/25 10:00 UNV Gabapentin 300 mg DAILY PO 03/21/25 10:00 04/10/25 10:49 300 MG Diphenhydramine HCl 50 mg [id number] PRN PO 03/21/25 16:45 03/21/25 22:57 50 MG Patient Own Medication 1 tab BID PO 03/21/25 22:00 04/10/25 10:00 1 TAB Throat Lozenges 1 liv Q2HP PRN MT 03/23/25 04:00 03/23/25 14:52 1 LIV Pantoprazole Sodium 40 mg DAILY IV 03/26/25 10:00 04/10/25 10:46 40 MG Magnesium Oxide 400 mg DAILY PO 03/27/25 10:00 04/10/25 10:48 400 MG Ertapenem 0.5 gm DAILY IM 03/27/25 11:15 Cancel Diagnostic Test (Pha) 1 strip Q6HR 03/27/25 18:00 04/10/25 12:10 1 STRIP Insulin Human Regular FOLLOW SLIDING SCALE Q6HR SC 03/27/25 18:00 04/10/25 12:18 2 UNITS Dextrose 50 ml UD IV 03/27/25 12:30 Norepinephrine Bitartrate 250 ml @ 0.938 mls/ hr Q24H IV 03/28/25 09:15 04/08/25 18:37 0.938 MLS/HR Amiodarone HCl 200 mg Q12HR PO 03/29/25 10:00 04/10/25 10:48 200 MG Nystatin 1 applic DAILY TOP 04/01/25 10:00 04/10/25 10:50 1 APPLIC Multivit/Ca Carb/ B Cmplx/FA/Prenat 1 tab DAILY PO 04/03/25 10:00 04/10/25 10:48 1 TAB Ferrous Sulfate 325 mg BIDWM PO 04/03/25 18:00 04/10/25 08:55 325 MG Midodrine 10 mg TID@0600,1200,1800 PO 04/04/25 12:00 04/10/25 12:10 10 MG Albuterol 2.5 mg Q4HR NEB 04/06/25 14:00 04/10/25 18:21 2.5 MG Ipratropium [place] 0.5 mg Q4HR NEB 04/06/25 14:00 04/10/25 18:21 0.5 MG Ertapenem 1 gm/ Sodium Chloride 50 ml @ 100 mls/hr DAILY IV 04/08/25 14:00 04/10/25 10:38 100 MLS/HR Bumetanide 3 mg BIDD IV 04/08/25 18:00 04/10/25 05:58 3 MG Amino Acids 0 ml @ 0 mls/hr PER PHARMACY IV 04/09/25 09:00 Levothyroxine Sodium 50 mcg DAILY IV 04/09/25 10:00 04/10/25 10:43 50 MCG Fat Emulsion Intravenous 100 ml/Sodium Chloride 20 meq/ Sodium Phosphate 20 meq/Potassium Chloride 20 meq/ Magnesium Sulfate 6 meq/ Multivitamins 10 ml/Chromium/ Copper/Manganese/ Zinc 1 ml/Amino Acids/Dextrose/ Purified Water 1,432.5 ml @ 59.997 mls/hr [id number] IV 04/09/25 22:00 04/10/25 21:59 04/09/25 21:46 59.997 MLS/HR Fat Emulsion Intravenous 200 ml/Sodium Chloride 30 meq/ Sodium Phosphate 10 meq/Potassium Chloride 40 meq/ Magnesium Sulfate 8 meq/ Multivitamins 10 ml/Chromium/ Copper/Manganese/ Zinc 1 ml/Amino Acids/Dextrose/ Purified Water 1,543 ml @ 64 mls/hr Q24H7M IV 04/10/25 22:00 04/11/25 21:59 objective HEENT: No evidence of JVD, no oral ulcers. Pulmonary: Crackles on auscultation bilaterally Cardiovascular S1-S2, no S3 or S4 Abdomen: Bowel sounds positive, soft no rebound tenderness Skin: No rash Neurological: Alert, oriented, no focal weakness Extremities: 2+ lower extremity edema pitting Right upper chest CVC in place. laboratory and microbiology Laboratory Tests 04/10/25 02:55 Test 04/10/25 02:55 Range/Units Serum Glucose 110 H 74-106 mg/dL Problem List Assessment: Hemodialysis dependent Acute kidney injury superimposed on CKD 4 Patient has tenuous renal function along with chronic fluid overload very difficult to manage historically because of the need of high doses of loop diuretics along with thiazide diuretic to manage hypervolemia with ensuing worsening of the renal function. Sepsis with a urine culture growing E coli and Klebsiella both of which are ESBL . Wound culture with E coli ESBL Septic shock Currently off Levophed Pelvic abscess Status post drainage of left pelvic abscess Left hydronephrosis which has a resolved Acute on chronic diastolic heart failure Anemia status post transfusion of PRBC Pulmonary hypertension Atrial fibrillation Bed-bound patient Chronic alcoholism in remission, last alcoholic beverage three months ago. Hypokalemia Recommendation/plan OK to place PICC line Hemodialysis to continue on TTS schedule, had HD today Replace 40 mEq KCl x 2 Continue Bumex b.i.d. er manager to arrange chair time, we will monitor for renal recovery within the next 90 days Fluid restriction less than 1 L per day, renal diet Midodrine 3 times a day and during dialysis Overall long-term prognosis is guarded Dietary Evaluation Review Comments: Renal Specific 60g CCHO-60 Cardiac Diet d/t SCOT over CKD and low GFR Expected Outcomes/Goals: less uremic symptoms, better weight management Plan discussed with: Patient CC Plasma Assessment Blood Product Administration S: [id number] MD Apr 10, 2025 18:28
[2025-04-10] MEDS: TPN PER PHARMACY IV NR (21:50)
--- NOTE | 2025-04-10 22:13 | DVHPN2 ---
Progress Note - Dictate Date Seen: Apr 10, 2025 Has the PT tested + for MRSA If YES, has PT been informed?: No Medical Necessity Reason Pt with a Central, PICC or Fol: Yes The following are medically ne: Tijerina Catheter Reason for tijerina catheter: Strict I&O Subjective No new complaints ; abdominal pain improved Currently NPO Patient is resting comfortably ; mild shortness of breath ALEKSANDAR drain output is minimal bloody less than 5 mL vital signs Vital Sign Date Time Temp Pulse Resp B/P (MAP) Pulse Ox O2 Delivery O2 Flow Rate FiO2 04/10/25 20:28 106/64 04/10/25 20:00 11 97 Nasal Cannula* 3 32 04/10/25 20:00 80 04/10/25 18:00 97.1 97.1 Total Intake and Output 04/09/25 04/09/25 04/10/25 15:00 23:00 07:00 Intake Total 50 ml 74.997 ml 629.976 ml Output Total 200 ml 100 ml Balance 50 ml -125.003 ml 529.976 ml medications Current Medications Medications Dose Ordered Sig/Sravan Route Start Time Stop Time Status Last Admin Dose Admin Acetaminophen/ Hydrocodone Bitart 1 tab Q4HP PRN PO 03/20/25 12:15 04/10/25 22:10 1 TAB Ondansetron HCl 4 mg Q4HP PRN IV 03/20/25 12:15 03/26/25 08:18 4 MG Docusate Sodium 100 mg BIDPRN PRN PO 03/20/25 12:15 Acetaminophen 650 mg Q6HP PRN PO 03/20/25 12:15 03/28/25 10:59 650 MG Nitroglycerin 0.4 mg Q5MINP PRN SL 03/20/25 12:15 03/25/25 09:26 0.4 MG Morphine Sulfate 2 mg Q30M PRN IV 03/20/25 12:15 03/25/25 09:43 2 MG Allopurinol 100 mg DAILY PO 03/21/25 10:00 04/10/25 10:51 100 MG Apixaban 2.5 mg BID PO 03/20/25 22:00 04/10/25 22:07 2.5 MG Cilostazol 100 mg BID PO 03/20/25 22:00 04/10/25 22:07 100 MG Patient Own Medication 1 tab DAILY PO 03/21/25 10:00 UNV Patient Own Medication 1 tab DAILY PO 03/21/25 10:00 UNV Gabapentin 300 mg DAILY PO 03/21/25 10:00 04/10/25 10:49 300 MG Diphenhydramine HCl 50 mg [id number] PRN PO 03/21/25 16:45 03/21/25 22:57 50 MG Patient Own Medication 1 tab BID PO 03/21/25 22:00 04/10/25 22:00 1 TAB Throat Lozenges 1 liv Q2HP PRN MT 03/23/25 04:00 03/23/25 14:52 1 LIV Pantoprazole Sodium 40 mg DAILY IV 03/26/25 10:00 04/10/25 10:46 40 MG Magnesium Oxide 400 mg DAILY PO 03/27/25 10:00 04/10/25 10:48 400 MG Ertapenem 0.5 gm DAILY IM 03/27/25 11:15 Cancel Diagnostic Test (Pha) 1 strip Q6HR 03/27/25 18:00 04/10/25 18:00 1 STRIP Insulin Human Regular FOLLOW SLIDING SCALE Q6HR SC 03/27/25 18:00 04/10/25 12:18 2 UNITS Dextrose 50 ml UD IV 03/27/25 12:30 Norepinephrine Bitartrate 250 ml @ 0.938 mls/ hr Q24H IV 03/28/25 09:15 04/08/25 18:37 0.938 MLS/HR Amiodarone HCl 200 mg Q12HR PO 03/29/25 10:00 04/10/25 22:07 200 MG Nystatin 1 applic DAILY TOP 04/01/25 10:00 04/10/25 10:50 1 APPLIC Multivit/Ca Carb/ B Cmplx/FA/Prenat 1 tab DAILY PO 04/03/25 10:00 04/10/25 10:48 1 TAB Ferrous Sulfate 325 mg BIDWM PO 04/03/25 18:00 04/10/25 20:27 325 MG Midodrine 10 mg TID@0600,1200,1800 PO 04/04/25 12:00 04/10/25 20:27 10 MG Albuterol 2.5 mg Q4HR NEB 04/06/25 14:00 04/10/25 18:21 2.5 MG Ipratropium Oral 0.5 mg Q4HR NEB 04/06/25 14:00 04/10/25 18:21 0.5 MG Ertapenem 1 gm/ Sodium Chloride 50 ml @ 100 mls/hr DAILY IV 04/08/25 14:00 04/10/25 10:38 100 MLS/HR Bumetanide 3 mg BIDD IV 04/08/25 18:00 04/10/25 20:28 3 MG Amino Acids 0 ml @ 0 mls/hr PER PHARMACY IV 04/09/25 09:00 Levothyroxine Sodium 50 mcg DAILY IV 04/09/25 10:00 04/10/25 10:43 50 MCG Fat Emulsion Intravenous 200 ml/Sodium Chloride 30 meq/ Sodium Phosphate 10 meq/Potassium Chloride 40 meq/ Magnesium Sulfate 8 meq/ Multivitamins 10 ml/Chromium/ Copper/Manganese/ Zinc 1 ml/Amino Acids/Dextrose/ Purified Water 1,543 ml @ 64 mls/hr Q24H7M IV 04/10/25 22:00 04/11/25 21:59 04/10/25 21:50 64 MLS/HR objective General examination- awake, alert HEENT- PEERLA, morbidly obese Cardiovascular- S1-S2 audible, rate and rhythm regular, no murmur Respiratory- CTAB, no wheeze or rhonchi Gastrointestinal-lower abdominal wall tenderness+, bowel sound+. Nondistended Musculoskeletal-no acute joint swelling or tenderness or redness Lower extremity- no leg edema Neurological- cranial nerves intact, no acute dysarthria or dysphagia laboratory and microbiology Laboratory Tests 04/10/25 02:55 Test 04/10/25 02:55 Range/Units Serum Glucose 110 H 74-106 mg/dL Problems(with codes): (1) Cardiac volume overload (2) Acute on chronic diastolic CHF (congestive heart failure) (3) Atrial fibrillation with RVR (4) COPD with acute exacerbation (5) E. coli UTI (urinary tract infection) (6) Generalized weakness (7) Pelvic abscess in female Prognosis Plan NPO, continue IV TPN IV antibiotics ALEKSANDAR drain in abscess Discharge planning on going to [facility] for LTAC Dietary Evaluation Review Comments: Renal Specific 60g CCHO-60 Cardiac Diet d/t SCOT over CKD and low GFR Expected Outcomes/Goals: less uremic symptoms, better weight management Plan discussed with: Other (ICU Nurse and Armen castro) CC Plasma Assessment Blood Product Administration S: [id number] MAGALYS AQUINO MD Apr 10, 2025 22:13
[2025-04-11] VITALS (74 sets, daily range): BP systolic 82–128; BP diastolic 37–65; PULSE 85–106; RESP 12–22; TEMP 97.8–98.1; O2SAT 89–100
[2025-04-11 03:58] LABS: Hemoglobin 7.5 g/dL (12.2-16.2)
[2025-04-11 04:01] LABS: Hematocrit 23.6 % (36.0-46.0); Mean Corpuscular Hemoglobin 28.7 pg (28.0-32.0); Mean Corpuscular Volume 90.3 fL (80.0-100.0); Nucleated Red Blood Cells % 0.2 %
[2025-04-11 04:24] LABS: Albumin 3.3 g/dL (3.2-4.8); Alkaline Phosphatase 93 U/L (46-116); Anion Gap 7 (5-15); BUN/Creatinine Ratio 13.0 (10.0-20.0); Bilirubin, Total 1.1 mg/dL (0.2-1.0); Calcium 8.9 mg/dL (8.7-10.4); Carbon Dioxide 31 mmol/L (20-31); Chloride 100 mmol/L (98-107); Magnesium 2.0 mg/dL (1.6-2.6); Sodium 138 mmol/L (136-145); Total Protein 6.1 g/dL (5.7-8.2)
[2025-04-11 04:28] LABS: Alanine Aminotransferase < 9 U/L (7-40); Blood Urea Nitrogen 25 mg/dL (9-23); Glucose 130 mg/dL (74-106); Potassium 2.7 mmol/L (3.5-5.1)
[2025-04-11] MEDS: POTASSIUM CHL 20MEQ/100ML 100 ML IV SCH (08:03)
--- NOTE | 2025-04-11 08:17 | DVHPN2 ---
Progress Note - Dictate Date Seen: Apr 11, 2025 Has the PT tested + for MRSA If YES, has PT been informed?: No Medical Necessity Reason Pt with a Central, PICC or Fol: Yes The following are medically ne: Tijerina Catheter Reason for tijerina catheter: Strict I&O vital signs Vital Sign Date Time Temp Pulse Resp B/P (MAP) Pulse Ox O2 Delivery O2 Flow Rate FiO2 04/11/25 07:15 106 17 110/54 (72) 96 04/11/25 06:47 Nasal Cannula* 3 32 04/11/25 01:00 98.1 98.1 Total Intake and Output 04/10/25 04/10/25 04/11/25 15:00 23:00 07:00 Intake Total 729.976 ml 553.991 ml 632 ml Output Total 300 ml 80 ml Balance 729.976 ml 253.991 ml 552 ml medications Current Medications Medications Dose Ordered Sig/Sravan Route Start Time Stop Time Status Last Admin Dose Admin Acetaminophen/ Hydrocodone Bitart 1 tab Q4HP PRN PO 03/20/25 12:15 04/10/25 22:10 1 TAB Ondansetron HCl 4 mg Q4HP PRN IV 03/20/25 12:15 03/26/25 08:18 4 MG Docusate Sodium 100 mg BIDPRN PRN PO 03/20/25 12:15 Acetaminophen 650 mg Q6HP PRN PO 03/20/25 12:15 03/28/25 10:59 650 MG Nitroglycerin 0.4 mg Q5MINP PRN SL 03/20/25 12:15 03/25/25 09:26 0.4 MG Morphine Sulfate 2 mg Q30M PRN IV 03/20/25 12:15 03/25/25 09:43 2 MG Allopurinol 100 mg DAILY PO 03/21/25 10:00 04/10/25 10:51 100 MG Apixaban 2.5 mg BID PO 03/20/25 22:00 04/10/25 22:07 2.5 MG Cilostazol 100 mg BID PO 03/20/25 22:00 04/10/25 22:07 100 MG Patient Own Medication 1 tab DAILY PO 03/21/25 10:00 UNV Patient Own Medication 1 tab DAILY PO 03/21/25 10:00 UNV Gabapentin 300 mg DAILY PO 03/21/25 10:00 04/10/25 10:49 300 MG Diphenhydramine HCl 50 mg [id number] PRN PO 03/21/25 16:45 03/21/25 22:57 50 MG Patient Own Medication 1 tab BID PO 03/21/25 22:00 04/10/25 22:00 1 TAB Throat Lozenges 1 liv Q2HP PRN MT 03/23/25 04:00 03/23/25 14:52 1 LIV Pantoprazole Sodium 40 mg DAILY IV 03/26/25 10:00 04/10/25 10:46 40 MG Magnesium Oxide 400 mg DAILY PO 03/27/25 10:00 04/10/25 10:48 400 MG Ertapenem 0.5 gm DAILY IM 03/27/25 11:15 Cancel Diagnostic Test (Pha) 1 strip Q6HR 03/27/25 18:00 04/11/25 05:47 1 STRIP Insulin Human Regular FOLLOW SLIDING SCALE Q6HR SC 03/27/25 18:00 04/11/25 00:57 2 UNITS Dextrose 50 ml UD IV 03/27/25 12:30 Norepinephrine Bitartrate 250 ml @ 0.938 mls/ hr Q24H IV 03/28/25 09:15 04/08/25 18:37 0.938 MLS/HR Amiodarone HCl 200 mg Q12HR PO 03/29/25 10:00 04/10/25 22:07 200 MG Nystatin 1 applic DAILY TOP 04/01/25 10:00 04/10/25 10:50 1 APPLIC Multivit/Ca Carb/ B Cmplx/FA/Prenat 1 tab DAILY PO 04/03/25 10:00 04/10/25 10:48 1 TAB Ferrous Sulfate 325 mg BIDWM PO 04/03/25 18:00 04/10/25 20:27 325 MG Midodrine 10 mg TID@0600,1200,1800 PO 04/04/25 12:00 04/11/25 05:46 10 MG Albuterol 2.5 mg Q4HR NEB 04/06/25 14:00 04/11/25 06:46 2.5 MG Ipratropium [place] 0.5 mg Q4HR NEB 04/06/25 14:00 04/11/25 06:47 0.5 MG Ertapenem 1 gm/ Sodium Chloride 50 ml @ 100 mls/hr DAILY IV 04/08/25 14:00 04/10/25 10:38 100 MLS/HR Bumetanide 3 mg BIDD IV 04/08/25 18:00 04/10/25 20:28 3 MG Amino Acids 0 ml @ 0 mls/hr PER PHARMACY IV 04/09/25 09:00 Levothyroxine Sodium 50 mcg DAILY IV 04/09/25 10:00 04/10/25 10:43 50 MCG Fat Emulsion Intravenous 200 ml/Sodium Chloride 30 meq/ Sodium Phosphate 10 meq/Potassium Chloride 40 meq/ Magnesium Sulfate 8 meq/ Multivitamins 10 ml/Chromium/ Copper/Manganese/ Zinc 1 ml/Amino Acids/Dextrose/ Purified Water 1,543 ml @ 64 mls/hr Q24H7M IV 04/10/25 22:00 04/11/25 21:59 04/10/25 21:50 64 MLS/HR Potassium Chloride 100 ml @ 50 mls/hr Q2H IV 04/11/25 07:00 04/11/25 10:59 04/11/25 08:03 50 MLS/HR laboratory and microbiology Laboratory Tests 04/11/25 03:40 Test 04/11/25 03:40 Range/Units Serum Glucose 130 H 74-106 mg/dL Assessment/Plan Patient is a 74-year-old female who was admitted on March 20, 2025 for abdominal pain/nausea/vomiting. She is admitted to ICU for septic shock. On March 24, 2025, cardiology was involved for cardiac aspects of care. Patient is known to our practice from before and previous admissions. She is known to have significant alcohol abuse (drinks whiskey every day) and also history of pulmonary hypertension/type 2 pulmonary hypertension, diastolic heart failure. Does have poor functional capacity and is bed-bound. Is significantly morbidly obese. Does have baseline history of atrial fibrillation and is on Eliquis as outpatient. Is found to have septic shock and possible pelvic abscess. Is seen by surgery/Urology/pulmonary/GI. Denies chest pains. Denies palpitations. Is noncompliant with medication and followups. While being managed in ICU was found to have atrial fibrillation with RVR. She mentions that she does go to hospital housekeeper regularly. She has had multiple surgeries in the bilateral feet. She also has history of COPD/asthma with chronic respiratory failure (on home oxygen). Morbidly obese. Not in acute distress. No JVD. Mucosa is dry. Mucosa is pink. No JVD. No carotid bruit. Not using accessory muscles of breathing. Scattered rhonchi in the lungs is heard. Cardiac: Irregular, no thrill. Abdomen is obese and soft. There is no gross hepatomegaly, but it is presence can not be ruled out (body habitus, morbidly obese). There is 3+ edema in bilateral lower extremities which extends to abdominal wall. Past medical history includes morbid obesity, atrial fibrillation (on Eliquis as outpatient), COPD/asthma with chronic respiratory failure on home oxygen, morbid obesity, hypertension, hyperlipidemia, chronic lymphedema, Diastolic heart failure with type 2 pulmonary hypertension, rheumatoid arthritis, osteoarthritis, peripheral vascular disease, CKD (stage IV), anemia, alcohol abuse, neuropathy, gout, old history of right and left foot fracture and their management, status post right knee replacement, status post , bed-bound at baseline and functional quadriplegia. Patient drinks whiskey daily. Goes to Nephrology regularly. Reportedly, there has been some concern about going to have fistula creation on preparation for dialysis? Echocardiogram of January 03 2024 (performed in [facility]) revealed ejection fraction of 60%, mild biatrial enlargement, mild MR/TR and right ventricular systolic pressure of 31 mm Hg. Echocardiogram of (performed in [facility]) revealed: EF of 50 to 55%, Dilated right ventricle with normal systolic function. Severe biatrial enlargement. Mild AI, mild to moderate MR, moderate TR and RVSP of 51 mmHg. Ascending Aorta was 3.7 cm. Echocardiogram of November 09, 2024 revealed ejection fraction of 72%, mild right ventricular enlargement, moderate biatrial enlargement, mild to moderate tricuspid regurgitation, mild mitral regurgitation, right ventricular systolic pressure 54 mm Hg Echocardiogram of February 23, 2025 revealed ejection fraction of around 50%, mild concentric left ventricular hypertrophy, right ventricular enlargement with preserved systolic function. Biatrial enlargement, mild aortic insufficiency, [id number] mitral regurgitation and tricuspid regurgitation. IVC was significantly dilated. Right ventricular systolic pressure of of 55 mm Hg Hemoglobin: 6.7 - 8.6 - 8.1 - 7.6 - 7.9 - 7.7 - 7.8 - 7.8 - 7.6 - 7.5 - 7.1 - 7.0 - 8.5 - 8.2 - 7.6 - 7.7 - 7.5 - 7.1 - 7.0 - 6.8 - 7.9 - 7.6 - 7.8 - 7.6 - 7.5 Creatinine: 3.29 - 2.63 - 2.77 - 2.59 - 2.13 - 1.98 - 1.98 - 2.47- 2.98 - 3.36 - 3.56 - 3.83 - 4.12 - 4.27 - 4.67 - 4.54 - 2.92 - 2.91 - 2.98 - 2.06 - 2.36 - 2.49 - 1.96 - 2.34 - 1.92 Potassium: 3.9 - 3.4 - 3.8 - 3.3 - 3.4 - 3.9 - 3.5 - 3.5 - 3.3 - 3.4 - 3.7 - 3.8 - 4.0 - 4.3 - 4.0 - 3.6 - 3.3 - 3.5 - 3.9 - 3.9 - 4.0 - 3.9 - 3.7 - 3.3 - 2.7 Troponin (high sensitive): 32 - 31 - 34 TSH: 0.17 - 0.15 T3: 0.40 (low) T4: 5.7 Free T4: 1.27 Free T3: 1.55 (low) Urine and Aspirate culture: ESBL E-coli Chest x-ray revealed: IMPRESSION: Cardiomegaly. Repeat chest x-ray revealed: IMPRESSION: 1. Cardiomegaly with increased interstitial prominence suggestive of CHF exacerbation. 2. Pulmonary arterial hypertension. Repeat chest x-ray revealed: IMPRESSION: Cardiomegaly with mild pulmonary congestion. . Repeat chest x-ray revealed: IMPRESSION: Cardiomegaly with pulmonary congestion and edema. Superimposed pneumonia cannot be excluded. Repeat chest x-ray revealed: IMPRESSION: Worsening right lower lung airspace disease. Suggestion of small bilateral pleural effusions. Repeat chest xray revealed: IMPRESSION: No significant interval change Repeat chest xry revealed: IMPRESSION: 1. Right internal jugular hemodialysis catheter in place with tip at the cavoatrial junction. 2. Right internal jugular catheter in place unchanged 3. Findings suggest worsening airspace disease in probable congestive failure or volume overload. Repeat chest xry revealed: IMPRESSION: Similar lung aeration. Small bilateral pleural effusion. Cardiomegaly. Repeat chest xry revealed: IMPRESSION: Interval placement of left PICC with tip projecting over the superior vena cava. Otherwise no significant change compared to prior exam. Abdominal ultrasound revealed: IMPRESSION: Small left hydronephrosis Renal scan revealed: IMPRESSION: Bilateral renal obstruction is present which is not response to Lasix administration suggesting that the kidney may be minimally functional. Abdomen and pelvic CT scan revealed: IMPRESSION: Moderate left hydroureteronephrosis. Suggestion of possible small abscess formation in the left hemipelvis associated with the sigmoid colon measuring 5.7 cm. This may represent site of ureteral obstruction. Clinical correlation advised. Examination is limited secondary to lack of intravenous and oral contrast administration. Abdomen and pelvis CT revealed: IMPRESSION: Sigmoid colonic diverticulitis with an adjacent 6 cm fluid collection with gas, could be an abscess. Probable fistula of the sigmoid to the fluid collection, and possibly with the urinary bladder, which is decompressed with a Tijerina. Possible trace left hydronephrosis with perinephric fat stranding. Repeat CT of abdomen and pelvis revealed: IMPRESSION: Small to moderate bilateral pleural effusions and associated compressive atelectasis / consolidation. Left lower quadrant pelvic drain in satisfactory position with significant interval decrease in size of abscess currently measuring 2.2 cm, previously 5.[address] guided abscess drainage: IMPRESSION: CT guided placement of 8 japanese pigtail drain into a left hemipelvic abscess with 30 mL purulent fluid aspirated. PLAN: Routine tube care. Renal ultrasound revealed: IMPRESSION: Unremarkable renal ultrasound without hydronephrosis seen. EKG revealed atrial fibrillation with RVR Tele reveals atrial fibrillation with RVR Echocardiogram revealed: Left ventricle: Mild concentric left ventricular hypertrophy was seen. LVEF was around 50%. Right ventricle was mildly dilated with reduced systolic function. Both atria were dilated. Aortic valve was not well visualized. There was no aortic insufficiency/stenosis. There was mild mitral regurgitation. There was [id number] tricuspid regurgitation. Pulmonary valve was not well visualized. Right ventricular systolic pressure was assessed at 50 mm Hg. IVC was dilated. There was no pericardial effusion. Patient is a 74-year-old female with known history of diastolic heart failure with type 2 pulmonary hypertension who presented with abdominal pain. He is admitted to ICU with septic shock. Did have thrombocytopenia which slowly improved. Was significantly anemic and was transfused PRBC. There has been question about pelvic abscess and the patient is on antibiotics. Patient is being followed by surgery/Urology/pulmonary/GI. It is of note that the patient does have history of significant alcohol abuse (drinks good amount of whiskey daily) which could contribute to to some component of the clinical picture. Does have baseline history of pulmonary hypertension. Usually is on some amount of diuretic (Bumex) as outpatient. Clinically, the patient does have dry mucosa and maybe behind fluids at the time of evaluation. Does have baseline poor functional capacity. Does have history of recent sepsis. s/p CT guided abscess drainage. Seen by Nephrology. Diuretics are on hold. TFT are in favor of subclinical thyroid problem. Still with poor kidney function. Nephrology suggested hemodialysis, patient is hesitant. Significant anemia, status post PRBC transfusion Thrombocytopenia, resolved Septic shock SCOT on CKD Hydronephrosis Pelvic abscess Transaminitis Acute on chronic diastolic heart failure Pulmonary Hypertension, type 2 Alcohol abuse Morbid obesity Poor functional capacity Bed-bound at baseline Atrial fibrillation with RVR Hyperlipidemia Osteoarthritis Rheumatoid arthritis Peripheral vascular disease Abdominal abscess? s/p CT guided abscess drainage s/p PRBC transfusion Cardiac suggestion for management: Manage in ICU Follow-up electrolytes and kidney function tests and correct abnormalities Full anticoagulation (on Eliquis presently), long-term On Midodrine Started on HD On oral amiodarone Off Pressor support for 1 day Evaluation and management of sepsis/infection as per primary team Evaluation and management of alcohol abuse/prevention of withdrawal as per primary team Evaluation and management of pelvic abscess/hydronephrosis as per primary team/surgery/Urology Further evaluation and management depends on the above and clinical course A total of 75 minutes was spent reviewing the patient record, examining the patient, making a diagnostic and therapeutic plan, discussing this plan with medical personnel, following up on diagnostic studies and following the patient for clinical stability excluding any and all procedures. At least 50% of this time was spent in direct, [id number] contact. Thank you for allowing me to participate in this patient's care. Further recommendations will depend on patient's clinical course. Please do not hesitate to contact me if you have any questions or concerns. This medical document was created using electronic medical record system with Medication Review dictation system. Although this document has been carefully reviewed, there may still be some phonetic and typographical errors. These areas are purely typographical due to the imperfection of the software programs, and do not reflect any compromise in the patient's medical care. Dietary Evaluation Review Comments: Renal Specific 60g CCHO-60 Cardiac Diet d/t SCOT over CKD and low GFR Expected Outcomes/Goals: less uremic symptoms, better weight management Plan discussed with: Patient, Other (nurse) CC Plasma Assessment Blood Product Administration S: [id number] AUSTIN ROMERO MD Apr 11, 2025 08:17
--- NOTE | 2025-04-11 09:12 | DVHPN2 ---
Subjective Denies any symptoms at this time Reviewed: Care Plan, H&P, Labs, Medications, Previous Orders, Radiology Changes from previous H/P or p: No Changes General: Per HPI Eyes: No Pain, No Vision change, No Conjunctivae inflammation, No Eyelid inflammation, No Other, No Redness ENT: No Ear pain, No Ear discharge, No Nose pain, No Nose discharge, No Nose congestion, No Mouth pain, No Mouth swelling, No Throat pain, No Throat swelling, No Other Cardiovascular: No Chest Pain, No Palpitations, No Orthopnea, No Paroxysmal Noc. Dyspnea, No Edema, No Lt Headedness, No Other Respiratory: No Cough, No Dry, No Shortness of breath, No SOB with excertion, No Wheezing, No Hemoptysis, No Pleuritic Pain, No Sputum, No Other Gastrointestinal: Nausea, Vomiting, Abdominal Pain Genitourinary: No Dysuria, No Frequency, No Incontinence, No Hematuria, No Retention, No Other Musculoskeletal: No other, No neck pain, No shoulder pain, No arm pain, No back pain, No hand pain, No leg pain, No foot pain Skin: No Rash, No Lesions, No Jaundice, No Bruising, No Other Objective Vitals Vital Signs Date Time Temp Pulse Resp B/P (MAP) Pulse Ox O2 Delivery O2 Flow Rate FiO2 04/11/25 07:15 106 17 110/54 (72) 96 04/11/25 06:47 Nasal Cannula* 3 32 04/11/25 01:00 98.1 98.1 Intake/Output Intake and Output 04/11/25 07:00 Intake Total 1915.967 ml Output Total 380 ml Balance 1535.967 ml Intake Oral 370 ml IV Total 1545.967 ml Output Urine Total 380 ml General Appearance: Alert, Oriented X3, Cooperative, Other HEENT: Atraumatic, PERRLA Cardiovascular: Normal S1, Normal S2, Other Abdomen: Normal bowel sounds, Other Extremities: No edema, Normal pulses Neuro: Sensation intact, Cranial nerves 3-12 NL Skin: Dry, Intact Psych/Mental Status: Mental status NL, Mood NL Medications Current Medications Medications Dose Ordered Sig/Sravan Route Start Time Stop Time Status Last Admin Dose Admin Acetaminophen/ Hydrocodone Bitart 1 tab Q4HP PRN PO 03/20/25 12:15 04/10/25 22:10 1 TAB Ondansetron HCl 4 mg Q4HP PRN IV 03/20/25 12:15 03/26/25 08:18 4 MG Docusate Sodium 100 mg BIDPRN PRN PO 03/20/25 12:15 Acetaminophen 650 mg Q6HP PRN PO 03/20/25 12:15 03/28/25 10:59 650 MG Nitroglycerin 0.4 mg Q5MINP PRN SL 03/20/25 12:15 03/25/25 09:26 0.4 MG Morphine Sulfate 2 mg Q30M PRN IV 03/20/25 12:15 03/25/25 09:43 2 MG Allopurinol 100 mg DAILY PO 03/21/25 10:00 04/10/25 10:51 100 MG Apixaban 2.5 mg BID PO 03/20/25 22:00 04/10/25 22:07 2.5 MG Cilostazol 100 mg BID PO 03/20/25 22:00 04/10/25 22:07 100 MG Patient Own Medication 1 tab DAILY PO 03/21/25 10:00 UNV Patient Own Medication 1 tab DAILY PO 03/21/25 10:00 UNV Gabapentin 300 mg DAILY PO 03/21/25 10:00 04/10/25 10:49 300 MG Diphenhydramine HCl 50 mg [id number] PRN PO 03/21/25 16:45 03/21/25 22:57 50 MG Patient Own Medication 1 tab BID PO 03/21/25 22:00 04/10/25 22:00 1 TAB Throat Lozenges 1 liv Q2HP PRN MT 03/23/25 04:00 03/23/25 14:52 1 LIV Pantoprazole Sodium 40 mg DAILY IV 03/26/25 10:00 04/10/25 10:46 40 MG Magnesium Oxide 400 mg DAILY PO 03/27/25 10:00 04/10/25 10:48 400 MG Ertapenem 0.5 gm DAILY IM 03/27/25 11:15 Cancel Diagnostic Test (Pha) 1 strip Q6HR 03/27/25 18:00 04/11/25 05:47 1 STRIP Insulin Human Regular FOLLOW SLIDING SCALE Q6HR SC 03/27/25 18:00 04/11/25 00:57 2 UNITS Dextrose 50 ml UD IV 03/27/25 12:30 Norepinephrine Bitartrate 250 ml @ 0.938 mls/ hr Q24H IV 03/28/25 09:15 04/08/25 18:37 0.938 MLS/HR Amiodarone HCl 200 mg Q12HR PO 03/29/25 10:00 04/10/25 22:07 200 MG Nystatin 1 applic DAILY TOP 04/01/25 10:00 04/10/25 10:50 1 APPLIC Multivit/Ca Carb/ B Cmplx/FA/Prenat 1 tab DAILY PO 04/03/25 10:00 04/10/25 10:48 1 TAB Ferrous Sulfate 325 mg BIDWM PO 04/03/25 18:00 04/10/25 20:27 325 MG Midodrine 10 mg TID@0600,1200,1800 PO 04/04/25 12:00 04/11/25 05:46 10 MG Albuterol 2.5 mg Q4HR NEB 04/06/25 14:00 04/11/25 06:46 2.5 MG Ipratropium [place] 0.5 mg Q4HR NEB 04/06/25 14:00 04/11/25 06:47 0.5 MG Ertapenem 1 gm/ Sodium Chloride 50 ml @ 100 mls/hr DAILY IV 04/08/25 14:00 04/10/25 10:38 100 MLS/HR Bumetanide 3 mg BIDD IV 04/08/25 18:00 04/10/25 20:28 3 MG Amino Acids 0 ml @ 0 mls/hr PER PHARMACY IV 04/09/25 09:00 Levothyroxine Sodium 50 mcg DAILY IV 04/09/25 10:00 04/10/25 10:43 50 MCG Fat Emulsion Intravenous 200 ml/Sodium Chloride 30 meq/ Sodium Phosphate 10 meq/Potassium Chloride 40 meq/ Magnesium Sulfate 8 meq/ Multivitamins 10 ml/Chromium/ Copper/Manganese/ Zinc 1 ml/Amino Acids/Dextrose/ Purified Water 1,543 ml @ 64 mls/hr Q24H7M IV 04/10/25 22:00 04/11/25 21:59 04/10/25 21:50 64 MLS/HR Potassium Chloride 100 ml @ 50 mls/hr Q2H IV 04/11/25 07:00 04/11/25 10:59 04/11/25 08:03 50 MLS/HR Laboratory Results Laboratory Tests 04/11/25 03:40 Chemistry Test 04/11/25 03:40 Albumin 3.3 g/dL (3.2-4.8) Calcium Level 8.9 mg/dL (8.7-10.4) Magnesium Level 2.0 mg/dL (1.6-2.6) Phosphorus Level 1.5 mg/dL (2.4-5.1) L Total Protein 6.1 g/dL (5.7-8.2) LFT Test 04/11/25 03:40 Alanine Aminotransferase (ALT) < 9 U/L (7-40) Alkaline Phosphatase 93 U/L (46-116) Aspartate Amino Transferase (AST) 10 U/L (13-40) L Total Bilirubin 1.1 mg/dL (0.2-1.0) H Urinalysis Test 03/20/25 09:34 Urine Color Colorless (Yellow) Urine Clarity Turbid (Clear) H Urine pH 5.0 (5.0-9.0) Urine Specific [place] 1.015 (1.001-1.035) Urine Protein Negative (Negative) Urine Ketones Negative (Negative) Urine Blood Negative /uL (Negative) Urine Nitrite Negative (Negative) Urine Bilirubin Negative (Negative) Urine Urobilinogen Normal mg/dL (Negative) Urine Leukocyte Esterase 3+ /uL (Negative) Urine RBC 1 /hpf (0 - 4) Urine Microscopic WBC 255 /HPF (0-5) H Urine Squamous Epithelial Cells Few /hpf (<5) Urine Bacteria Few /hpf (None Seen) H Urine Glucose Normal mg/dL (Normal) Microbiology Microbiology Date/Time Source Procedure Growth Status 03/26/25 15:00 Aspirate Gram Stain - Final Complete 03/26/25 15:00 Body Fluid Culture - Final Escherichia coli - ESBL Enterobacter cloacae Proteus mirabilis Complete 03/23/25 04:30 Throat Nose/Throat Culture - Final Complete 03/21/25 18:00 Urine - Catheterized Urine Culture - Final Escherichia coli - ESBL Klebsiella pneumoniae - ESBL Complete 03/20/25 21:52 Nose MRSA Screen - Final Complete Labs and/or images reviewed: Labs reviewed by me, Image(s) reviewed by me Assessment/Plan Assessment/Plan Impression: -septic shock -diverticular abscess -AFib with RVR -morbid obesity -obstructive uropathy -CKD stage 4 -acute kidney injury, vasomotor nephropathy -acute on chronic systolic and diastolic heart failure -bed-bound status -complicated cystitis with ESBL in the urine. Plan: Events: Continues to be off norepinephrine drip. Patient awaiting long-term acute care facility. White blood cell count now normal. Central line removed yesterday. PICC line placed. -social service consultation to transfer to long-term acute care Facility -norepinephrine p.r.n. -continue midodrine -continue Invanz -NPO except meds and TPN -continue anticoagulation with Eliquis -repeat labs in a.m. Critical care time spent with patient discussing and formulating plan of care: 40 minutes. This does not include time spent performing procedures. This medical document was created using an electronic medical record system with [employer] dictation system. Although this document has been carefully reviewed, there may still be some phonetic and typographical errors. These areas are purely typographical due to imperfections of the software programs, and do not reflect any compromise in the patient's medical care. Plan discussed with: Patient, Other (RN) My Orders Orders - GONZALO ASKEW NP Procedure Category Date Status Time Amino Acid PHA 04/10/25 In Process Infusion... W/Fat 22:00 Tpn Per Pharmacy EBONY 04/10/25 In Process 22:00 Chest Portable XY 04/10/25 Resulted 13:35 Us Guided Vascular US 04/10/25 Logged Access 13:35 Discharge DISCHARGE 04/10/25 Transmitted 15:33 Date of Service: Apr 11, 2025 Billing Provider: GONZALO ASKEW NP Common Visit Codes: [id number] CARE 30-74 MIN GONZALO ASKEW NP Apr 11, 2025 09:11
[2025-04-11] MEDS: POTASSIUM PHOSPHATE 22 MEQ in SODIUM CHL 0.9% 100 ML IV ONE (11:30)
--- NOTE | 2025-04-11 16:27 | DVHPN2 ---
Progress Note - Dictate Date Seen: Apr 11, 2025 Has the PT tested + for MRSA If YES, has PT been informed?: No Medical Necessity Reason Pt with a Central, PICC or Fol: Yes The following are medically ne: Tijerina Catheter Reason for tijerina catheter: Strict I&O Subjective Transferred out of ICU vital signs Vital Sign Date Time Temp Pulse Resp B/P (MAP) Pulse Ox O2 Delivery O2 Flow Rate FiO2 04/11/25 15:00 98 16 105/57 (73) 97 04/11/25 14:00 Nasal Cannula* 3 32 04/11/25 12:00 97.8 97.8 Total Intake and Output 04/10/25 04/10/25 04/11/25 15:00 23:00 07:00 Intake Total 729.976 ml 553.991 ml 632 ml Output Total 300 ml 80 ml Balance 729.976 ml 253.991 ml 552 ml medications Current Medications Medications Dose Ordered Sig/Sravan Route Start Time Stop Time Status Last Admin Dose Admin Acetaminophen/ Hydrocodone Bitart 1 tab Q4HP PRN PO 03/20/25 12:15 04/10/25 22:10 1 TAB Ondansetron HCl 4 mg Q4HP PRN IV 03/20/25 12:15 03/26/25 08:18 4 MG Docusate Sodium 100 mg BIDPRN PRN PO 03/20/25 12:15 Acetaminophen 650 mg Q6HP PRN PO 03/20/25 12:15 03/28/25 10:59 650 MG Nitroglycerin 0.4 mg Q5MINP PRN SL 03/20/25 12:15 03/25/25 09:26 0.4 MG Morphine Sulfate 2 mg Q30M PRN IV 03/20/25 12:15 03/25/25 09:43 2 MG Allopurinol 100 mg DAILY PO 03/21/25 10:00 04/11/25 09:44 100 MG Apixaban 2.5 mg BID PO 03/20/25 22:00 04/11/25 09:44 2.5 MG Cilostazol 100 mg BID PO 03/20/25 22:00 04/11/25 09:44 100 MG Patient Own Medication 1 tab DAILY PO 03/21/25 10:00 UNV Patient Own Medication 1 tab DAILY PO 03/21/25 10:00 UNV Gabapentin 300 mg DAILY PO 03/21/25 10:00 04/11/25 09:44 300 MG Diphenhydramine HCl 50 mg [id number] PRN PO 03/21/25 16:45 03/21/25 22:57 50 MG Patient Own Medication 1 tab BID PO 03/21/25 22:00 04/11/25 09:45 1 TAB Throat Lozenges 1 liv Q2HP PRN MT 03/23/25 04:00 03/23/25 14:52 1 LIV Pantoprazole Sodium 40 mg DAILY IV 03/26/25 10:00 04/11/25 09:44 40 MG Magnesium Oxide 400 mg DAILY PO 03/27/25 10:00 04/11/25 09:44 400 MG Ertapenem 0.5 gm DAILY IM 03/27/25 11:15 Cancel Diagnostic Test (Pha) 1 strip Q6HR 03/27/25 18:00 04/11/25 12:25 1 STRIP Insulin Human Regular FOLLOW SLIDING SCALE Q6HR SC 03/27/25 18:00 04/11/25 12:36 2 UNITS Dextrose 50 ml UD IV 03/27/25 12:30 Norepinephrine Bitartrate 250 ml @ 0.938 mls/ hr Q24H IV 03/28/25 09:15 04/08/25 18:37 0.938 MLS/HR Amiodarone HCl 200 mg Q12HR PO 03/29/25 10:00 04/11/25 09:44 200 MG Nystatin 1 applic DAILY TOP 04/01/25 10:00 04/11/25 09:45 1 APPLIC Multivit/Ca Carb/ B Cmplx/FA/Prenat 1 tab DAILY PO 04/03/25 10:00 04/11/25 09:44 1 TAB Ferrous Sulfate 325 mg BIDWM PO 04/03/25 18:00 04/11/25 09:44 325 MG Midodrine 10 mg TID@0600,1200,1800 PO 04/04/25 12:00 04/11/25 12:34 10 MG Albuterol 2.5 mg Q4HR NEB 04/06/25 14:00 04/11/25 13:10 2.5 MG Ipratropium [place] 0.5 mg Q4HR NEB 04/06/25 14:00 04/11/25 13:10 0.5 MG Ertapenem 1 gm/ Sodium Chloride 50 ml @ 100 mls/hr DAILY IV 04/08/25 14:00 04/11/25 09:50 100 MLS/HR Bumetanide 3 mg BIDD IV 04/08/25 18:00 04/10/25 20:28 3 MG Amino Acids 0 ml @ 0 mls/hr PER PHARMACY IV 04/09/25 09:00 Levothyroxine Sodium 50 mcg DAILY IV 04/09/25 10:00 04/11/25 09:44 50 MCG Fat Emulsion Intravenous 200 ml/Sodium Chloride 30 meq/ Sodium Phosphate 10 meq/Potassium Chloride 40 meq/ Magnesium Sulfate 8 meq/ Multivitamins 10 ml/Chromium/ Copper/Manganese/ Zinc 1 ml/Amino Acids/Dextrose/ Purified Water 1,543 ml @ 64 mls/hr Q24H7M IV 04/10/25 22:00 04/11/25 21:59 04/10/25 21:50 64 MLS/HR Fat Emulsion Intravenous 250 ml/Sodium Chloride 40 meq/ Potassium Chloride 40 meq/ Potassium Phosphate 22 meq/ Magnesium Sulfate 8 meq/ Multivitamins 10 ml/Amino Acids/ Dextrose/Purified Water 1,647 ml @ 68 mls/hr [id number] IV 04/11/25 22:00 04/12/25 21:59 objective HEENT: No evidence of JVD, no oral ulcers. Pulmonary: Crackles on auscultation bilaterally Cardiovascular S1-S2, no S3 or S4 Abdomen: Bowel sounds positive, soft no rebound tenderness Skin: No rash Neurological: Alert, oriented, no focal weakness Extremities: 2+ lower extremity edema pitting Right upper chest CVC in place. laboratory and microbiology Laboratory Tests 04/11/25 03:40 Test 04/11/25 03:40 Range/Units Serum Glucose 130 H 74-106 mg/dL Problem List Assessment: Hemodialysis dependent Acute kidney injury superimposed on CKD 4 Patient has tenuous renal function along with chronic fluid overload very difficult to manage historically because of the need of high doses of loop diuretics along with thiazide diuretic to manage hypervolemia with ensuing worsening of the renal function. Sepsis with a urine culture growing E coli and Klebsiella both of which are ESBL . Wound culture with E coli ESBL Septic shock resolved Pelvic abscess Status post drainage of left pelvic abscess Left hydronephrosis which has a resolved Acute on chronic diastolic heart failure Anemia status post transfusion of PRBC Pulmonary hypertension Atrial fibrillation Bed-bound patient Chronic alcoholism in remission, last alcoholic beverage three months ago. Hypokalemia Recommendation/plan OK to place PICC line Hemodialysis to continue on TTS schedule Replace 40 mEq KCl x 2 Continue Bumex b.i.d. advertising traffic manager to arrange chair time, we will monitor for renal recovery within the next 90 days Fluid restriction less than 1 L per day, renal diet Midodrine 3 times a day and during dialysis Overall long-term prognosis is guarded Dietary Evaluation Review Comments: Renal Specific 60g CCHO-60 Cardiac Diet d/t SCOT over CKD and low GFR Expected Outcomes/Goals: less uremic symptoms, better weight management Plan discussed with: Patient CC Plasma Assessment Blood Product Administration S: [id number] DOMO JOY MD Apr 11, 2025 16:27
--- NOTE | 2025-04-11 16:40 | DVHPN2 ---
Progress Note - Dictate Date Seen: Apr 11, 2025 Has the PT tested + for MRSA If YES, has PT been informed?: No Medical Necessity Reason Pt with a Central, PICC or Fol: Yes The following are medically ne: Tijer[place] Catheter Reason for tijerina catheter: Strict I&O Subjective No new complaints ; abdominal pain improved Currently NPO Patient is resting comfortably ; mild shortness of breath ALEKSANDAR drain output is minimal bloody less than 5 mL vital signs Vital Sign Date Time Temp Pulse Resp B/P (MAP) Pulse Ox O2 Delivery O2 Flow Rate FiO2 04/11/25 15:00 98 16 105/57 (73) 97 04/11/25 14:00 Nasal Cannula* 3 32 04/11/25 12:00 97.8 97.8 Total Intake and Output 04/10/25 04/10/25 04/11/25 15:00 23:00 07:00 Intake Total 729.976 ml 553.991 ml 632 ml Output Total 300 ml 80 ml Balance 729.976 ml 253.991 ml 552 ml medications Current Medications Medications Dose Ordered Sig/Sravan Route Start Time Stop Time Status Last Admin Dose Admin Acetaminophen/ Hydrocodone Bitart 1 tab Q4HP PRN PO 03/20/25 12:15 04/10/25 22:10 1 TAB Ondansetron HCl 4 mg Q4HP PRN IV 03/20/25 12:15 03/26/25 08:18 4 MG Docusate Sodium 100 mg BIDPRN PRN PO 03/20/25 12:15 Acetaminophen 650 mg Q6HP PRN PO 03/20/25 12:15 03/28/25 10:59 650 MG Nitroglycerin 0.4 mg Q5MINP PRN SL 03/20/25 12:15 03/25/25 09:26 0.4 MG Morphine Sulfate 2 mg Q30M PRN IV 03/20/25 12:15 03/25/25 09:43 2 MG Allopurinol 100 mg DAILY PO 03/21/25 10:00 04/11/25 09:44 100 MG Apixaban 2.5 mg BID PO 03/20/25 22:00 04/11/25 09:44 2.5 MG Cilostazol 100 mg BID PO 03/20/25 22:00 04/11/25 09:44 100 MG Patient Own Medication 1 tab DAILY PO 03/21/25 10:00 UNV Patient Own Medication 1 tab DAILY PO 03/21/25 10:00 UNV Gabapentin 300 mg DAILY PO 03/21/25 10:00 04/11/25 09:44 300 MG Diphenhydramine HCl 50 mg [id number] PRN PO 03/21/25 16:45 03/21/25 22:57 50 MG Patient Own Medication 1 tab BID PO 03/21/25 22:00 04/11/25 09:45 1 TAB Throat Lozenges 1 liv Q2HP PRN MT 03/23/25 04:00 03/23/25 14:52 1 LIV Pantoprazole Sodium 40 mg DAILY IV 03/26/25 10:00 04/11/25 09:44 40 MG Magnesium Oxide 400 mg DAILY PO 03/27/25 10:00 04/11/25 09:44 400 MG Ertapenem 0.5 gm DAILY IM 03/27/25 11:15 Cancel Diagnostic Test (Pha) 1 strip Q6HR 03/27/25 18:00 04/11/25 12:25 1 STRIP Insulin Human Regular FOLLOW SLIDING SCALE Q6HR SC 03/27/25 18:00 04/11/25 12:36 2 UNITS Dextrose 50 ml UD IV 03/27/25 12:30 Norepinephrine Bitartrate 250 ml @ 0.938 mls/ hr Q24H IV 03/28/25 09:15 04/08/25 18:37 0.938 MLS/HR Amiodarone HCl 200 mg Q12HR PO 03/29/25 10:00 04/11/25 09:44 200 MG Nystatin 1 applic DAILY TOP 04/01/25 10:00 04/11/25 09:45 1 APPLIC Multivit/Ca Carb/ B Cmplx/FA/Prenat 1 tab DAILY PO 04/03/25 10:00 04/11/25 09:44 1 TAB Ferrous Sulfate 325 mg BIDWM PO 04/03/25 18:00 04/11/25 09:44 325 MG Midodrine 10 mg TID@0600,1200,1800 PO 04/04/25 12:00 04/11/25 12:34 10 MG Albuterol 2.5 mg Q4HR NEB 04/06/25 14:00 04/11/25 13:10 2.5 MG Ipratropium [place] 0.5 mg Q4HR NEB 04/06/25 14:00 04/11/25 13:10 0.5 MG Ertapenem 1 gm/ Sodium Chloride 50 ml @ 100 mls/hr DAILY IV 04/08/25 14:00 04/11/25 09:50 100 MLS/HR Bumetanide 3 mg BIDD IV 04/08/25 18:00 04/10/25 20:28 3 MG Amino Acids 0 ml @ 0 mls/hr PER PHARMACY IV 04/09/25 09:00 Levothyroxine Sodium 50 mcg DAILY IV 04/09/25 10:00 04/11/25 09:44 50 MCG Fat Emulsion Intravenous 200 ml/Sodium Chloride 30 meq/ Sodium Phosphate 10 meq/Potassium Chloride 40 meq/ Magnesium Sulfate 8 meq/ Multivitamins 10 ml/Chromium/ Copper/Manganese/ Zinc 1 ml/Amino Acids/Dextrose/ Purified Water 1,543 ml @ 64 mls/hr Q24H7M IV 04/10/25 22:00 04/11/25 21:59 04/10/25 21:50 64 MLS/HR Fat Emulsion Intravenous 250 ml/Sodium Chloride 40 meq/ Potassium Chloride 40 meq/ Potassium Phosphate 22 meq/ Magnesium Sulfate 8 meq/ Multivitamins 10 ml/Amino Acids/ Dextrose/Purified Water 1,647 ml @ 68 mls/hr [id number] IV 04/11/25 22:00 04/12/25 21:59 objective General examination- awake, alert HEENT- PEERLA, morbidly obese Cardiovascular- S1-S2 audible, rate and rhythm regular, no murmur Respiratory- CTAB, no wheeze or rhonchi Gastrointestinal-lower abdominal wall tenderness+, bowel sound+. Nondistended Musculoskeletal-no acute joint swelling or tenderness or redness Lower extremity- no leg edema Neurological- cranial nerves intact, no acute dysarthria or dysphagia laboratory and microbiology Laboratory Tests 04/11/25 03:40 Test 04/11/25 03:40 Range/Units Serum Glucose 130 H 74-106 mg/dL Problems(with codes): (1) COPD with acute exacerbation (2) Shortness of breath (3) E. coli UTI (urinary tract infection) (4) Generalized weakness (5) Pelvic abscess in female Prognosis Plan NPO, continue IV TPN IV antibiotics ALEKSANDAR drain in abscess Discharge planning on going to [place] for LTAC Dietary Evaluation Review Comments: Renal Specific 60g CCHO-60 Cardiac Diet d/t SCOT over CKD and low GFR Expected Outcomes/Goals: less uremic symptoms, better weight management Plan discussed with: Patient CC Plasma Assessment Blood Product Administration S: [id number] MAGALYS AQUINO MD Apr 11, 2025 16:40
--- NOTE | 2025-04-11 16:54 | DVHINCON2 ---
Date of service: Apr 11, 2025 Family History: Cerebrovascular accident (CVA) G8 MOTHER Chronic obstructive pulmonary disease FH: CHF (congestive heart failure) G8 MOTHER Hypertension G8 MOTHER Allergies: Coded Allergies: Zinc Oxide (Verified Allergy, Mild, 03/07/25) Sulfa Antibiotics (Verified Allergy, Unknown, 01/16/22) Home Meds Active Scripts Prednisone (Prednisone) 20 Mg Tab, 20 MG PO BID for 5 Days, #10 TAB Prov:VÍCTOR HAMILTON [employer] 01/20/22 Reported Medications Amiodarone HCl (Amiodarone HCl) 200 Mg Tab, 1 TAB PO BID 03/20/25 Levothyroxine Sodium (Levothyroxine Sodium) 137 Mcg Tab, 1 TAB PO DAILY 03/20/25 Ropinirole Hydrochloride (Ropinirole Hcl) 0.25 Mg Tab, 1 TAB PO BID for 90 Days, #180 02/26/25 Spironolactone (Spironolactone) 50 Mg Tab, 1 TAB PO DAILY for 90 Days, #90 02/26/25 Meclizine HCl (Meclizine Hydrochloride) 25 Mg Tab, 1 TAB PO DAILY PRN for 90 Days, #90 02/26/25 Midodrine Hcl (Midodrine Hcl) 10 Mg Tab, 1 TAB PO BID for 90 Days, #180 02/26/25 Potassium Chloride (Potassium Chloride ER) 20 Meq Tab, 1 TAB PO BID for 90 Days, #180 02/26/25 Fluticasone-Salmeterol (Fluticasone Propionate/SA 500-50 Mcg/Dose) 1 Aer Aer, 1 PUFF PO BID for 30 Days, #60 02/26/25 Lactulose (Lactulose) 10 Gm/15 Ml Yoselyn, 15 ML PO DAILY for 30 Days, #450 02/26/25 Gabapentin (Gabapentin) 300 Mg Cap, 300 MG PO BID 11/08/24 Pantoprazole Sodium Sesquihydr (Pantoprazole Sodium) 40 Mg Tab, 1 TAB PO DAILY 11/08/24 Atorvastatin Calcium (ATORVASTATIN CALCIUM) 20 Mg Tab, 1 TAB PO DAILY 11/08/24 Bumetanide (Bumetanide) 2 Mg Tab, 1 TAB PO BID 11/08/24 Apixaban Base (ELIQUIS) 2.5 Mg Tab, 1 TAB PO BID 11/08/24 Loperamide HCl (Imodium A-D) 1 Mg/7.5 Ml Liq, 1 MG PO, LIQ 01/17/22 Clobetasol Propionate (Clobetasol Propionate) 0.05 % Oin, 1 APPLIC TOP BID, #15 GRAMS 01/17/22 Hydroxychloroquine Sulfate (PLAQUENIL) 200 Mg Tab, 1 TAB PO DAILY, #180 TAB 3 Refills 01/17/22 Furosemide (Furosemide) 40 Mg Tab, 1 TAB PO DAILY, #30 TAB 5 Refills 01/17/22 Fluticasone-Salmeterol (Advair Diskus 500/50) 1 Puff Ih, 1 PUFF INH BID, #1 INHALER 5 Refills 01/17/22 Albuterol Sulfate (VENTOLIN MDI) 90 Mcg Ih, 90 MCG IN Q6HP for 30 Days, MCG 01/17/22 Allopurinol (Allopurinol) 100 Mg Tab, 100 MG PO DAILY for 30 Days, MG 01/17/22 Amlodipine Besylate (Amlodipine Besylate) 5 Mg Tab, 5 MG PO DAILY for 30 Days, MG 01/17/22 Pantoprazole Sodium (PANTOPRAZOLE SODIUM) 40 Mg Inj, 40 MG IV DAILY, INJ 01/17/22 Cilostazol (Cilostazol) 100 Mg Tab, 100 MG PO BID for 30 Days, MG 01/17/22 Methocarbamol (Methocarbamol) 750 Mg Tab, 750 MG PO BID, TAB 01/17/22 Sotalol Hcl (Sotalol Hcl) 80 Mg Tab, 0.5 TAB PO BID, #60 TAB 5 Refills 01/17/22 Meclizine HCl (Meclizine 25) 25 Mg Tab, 25 MG PO BID, TAB 01/17/22 Current Medications Current Medications Medications (Trade) Dose Ordered Sig/Sravan Route PRN Reason Start Time Stop Time Status Last Admin Fat Emulsion Intravenous 200 ml/Sodium Chloride 30 meq/ Sodium Phosphate 10 meq/Potassium Chloride 40 meq/ Magnesium Sulfate 8 meq/ Multivitamins 10 ml/Chromium/ Copper/Manganese/ Zinc 1 ml/Amino Acids/Dextrose/ Purified Water 1,543 ml @ 64 mls/hr Q24H7M IV 04/10/25 22:00 04/11/25 21:59 04/10/25 21:50 Potassium Chloride 100 ml @ 50 mls/hr Q2H IV 04/11/25 07:00 04/11/25 10:59 DC 04/11/25 09:41 Fat Emulsion Intravenous 250 ml/Sodium Chloride 40 meq/ Potassium Chloride 40 meq/ Potassium Phosphate 22 meq/ Magnesium Sulfate 8 meq/ Multivitamins 10 ml/Amino Acids/ Dextrose/Purified Water 1,647 ml @ 68 mls/hr [id number] IV 04/11/25 22:00 04/12/25 21:59 Vital Signs Vital Signs Date Time Temp Pulse Resp B/P (MAP) Pulse Ox O2 Delivery O2 Flow Rate FiO2 04/11/25 15:00 98 16 105/57 (73) 97 04/11/25 14:00 Nasal Cannula* 3 32 04/11/25 12:00 97.8 97.8 Labs/Diagnostic Data Labs Test 04/11/25 12:23 04/11/25 03:40 04/10/25 02:55 04/09/25 03:00 Range/Units POC Glucose 142 H 70-106 mg/dl White Blood Count 9.7 4.4-10.8 10^3/uL Red Blood Count 2.62 L 4.0-5.20 10^6/uL Hemoglobin 7.5 L 12.2-16.2 g/dL Hematocrit 23.6 L 36.0-46.0 % Mean Corpuscular Volume 90.3 80.0-100.0 fL Mean Corpuscular Hemoglobin 28.7 28.0-32.0 pg Mean Corpuscular Hemoglobin Concent 31.8 L 32.0-36.0 g/dL Red Cell Distribution Width 22.1 H 11.8-14.3 % Platelet Count 234 140-450 10^3/uL Mean Platelet Volume 7.4 6.9-10.8 fL Neutrophils (%) (Auto) 81.8 H 37.0-80.0 % Lymphocytes (%) (Auto) 8.3 L 10.0-50.0 % Monocytes (%) (Auto) 7.5 0.0-12.0 % Eosinophils (%) (Auto) 2.1 0.0-7.0 % Basophils (%) (Auto) 0.3 0.0-2.0 % Neutrophils # (Auto) 7.9 1.6-8.6 10 ^3/uL Lymphocytes # (Auto) 0.8 0.4-5.4 10 ^3/uL Monocytes # (Auto) 0.7 0-1.3 10 ^3/uL Eosinophils # (Auto) 0.2 0-0.8 10 ^3/uL Basophils # (Auto) 0 0-0.2 10 ^3/uL Nucleated Red Blood Cells 0.2 % Sodium Level 138 136-145 mmol/L Potassium Level 2.7 L 3.5-5.1 mmol/L Chloride Level 100 98-107 mmol/L Carbon Dioxide Level 31 20-31 mmol/L Anion Gap 7 5-15 Blood Urea Nitrogen 25 #H 9-23 mg/dL Creatinine 1.92 H 0.550-1.02 mg/dL Glomerular Filtration Rate Calc 27 >90 mL/min BUN/Creatinine Ratio 13.0 10.0-20.0 Serum Glucose 130 H 74-106 mg/dL Calcium Level 8.9 8.7-10.4 mg/dL Phosphorus Level 1.5 L 2.4-5.1 mg/dL Magnesium Level 2.0 1.6-2.6 mg/dL Total Bilirubin 1.1 H 0.2-1.0 mg/dL Aspartate Amino Transferase (AST) 10 L 13-40 U/L Alanine Aminotransferase (ALT) < 9 7-40 U/L Alkaline Phosphatase 93 46-116 U/L Total Protein 6.1 5.7-8.2 g/dL Albumin 3.3 3.2-4.8 g/dL Prothrombin Time 17.8 H 9.3-11.8 sec Prothrombin Time INR 1.78 H 0.9-1.15 Triglycerides Level 58 < 150 mg/dL Test 04/06/25 03:11 04/04/25 03:00 04/03/25 11:27 03/26/25 15:00 Range/Units Iron Level 49 L 50-170 ug/dL Total Iron Binding Capacity 154 L 250-425 ug/dL Percent Iron Saturation 31.8 15-50 % Ferritin 570.2 H 10-291 ng/mL Hepatitis B Surface Antibody Negative Negative Hepatitis B Core Total Antibody Negative Negative Hepatitis B Surface Antigen Negative Negative Body Fluid Glucose . mg/dL Test 03/26/25 07:34 03/25/25 08:55 03/25/25 03:18 03/24/25 18:00 Range/Units Activated Partial Thromboplast Time 61.1 H 24.5-34.5 SEC Free Thyroxine (T4) Calculated 1.27 0.89-1.76 ng/dL Thyroxine (T4) 5.7 4.5-12.0 ug/dL Free Triiodothyronine (T3) pg/mL 1.55 L 2.3-4.2 pg/mL Total Triiodothyronine (TT3) 0.40 L 0.60-1.81 ng/mL Thyroid Stimulating Hormone (TSH) 0.15 L 0.55-4.78 uIU/mL Blood Gas Specimen Type Arterial Blood Gas Sample Site Right radial Blood Gas Patient Temperature 37.0 Arterial Blood Date Drawn [id number] Arterial Blood pH 7.405 7.350-7.450 Arterial Blood Partial Pressure CO2 37.8 32.0-45.0 mmHg Arterial Blood Partial Pressure O2 103.6 83.0-108.0 mmHg Arterial Blood HCO3 23.2 21.0-28.0 mmol/L Arterial Blood Oxygen Saturation 97.4 94.0-98.0 % Arterial Blood Base Excess -1.3 -2.0-3.0 mmol/L Arterial Blood Oxyhemoglobin 96.7 94.0-98.0 % Arterial Blood Carboxyhemoglobin 0.3 L 0.5-1.5 % Arterial Blood Methemoglobin 0.4 0.0-1.5 % [place] Test Yes Blood Gas Total Hemoglobin 9.50 L 12.0-16.0 g/dL Blood Gas Modality Nasal cannula FiO2 % 32.0 Test 03/23/25 04:30 03/23/25 04:20 03/21/25 05:21 03/20/25 09:34 Range/Units Group A Streptococcus Rapid Negative SARS-CoV-2 Antigen (Rapid) Negative NEGATIVE Amylase Level 21 L 30-118 U/L Lipase 19 12-53 U/L Urine Color Colorless Yellow Urine Clarity Turbid H Clear Urine pH 5.0 5.0-9.0 Urine Specific [place] 1.015 1.001-1.035 Urine Protein Negative Negative Urine Ketones Negative Negative Urine Blood Negative Negative /uL Urine Nitrite Negative Negative Urine Bilirubin Negative Negative Urine Urobilinogen Normal Negative mg/dL Urine Leukocyte Esterase 3+ Negative /uL Urine RBC 1 0 - 4 /hpf Urine Microscopic WBC 255 H 0-5 /HPF Urine Squamous Epithelial Cells Few <5 /hpf Urine Bacteria Few H None Seen /hpf Urine Glucose Normal Normal mg/dL Test 03/20/25 08:30 03/20/25 05:31 Range/Units Troponin I High Sensitivity 34 </=34 ng/L Lactic Acid Level 1.2 0.4-2.0 mmol/L Microbiology Date/Time Source Procedure Growth Status 03/26/25 15:00 Aspirate Gram Stain - Final Complete 03/26/25 15:00 Body Fluid Culture - Final Escherichia coli - ESBL Enterobacter cloacae Proteus mirabilis Complete 03/23/25 04:30 Throat Nose/Throat Culture - Final Complete 03/21/25 18:00 Urine - Catheterized Urine Culture - Final Escherichia coli - ESBL Klebsiella pneumoniae - ESBL Complete 03/20/25 21:52 Nose MRSA Screen - Final Complete CHARLY AWAN MD Apr 11, 2025 16:54
--- NOTE | 2025-04-11 21:08 | DVHPN2 ---
Progress Note - Dictate Date Seen: Apr 11, 2025 Has the PT tested + for MRSA If YES, has PT been informed?: No Medical Necessity Reason Pt with a Central, PICC or Fol: Yes The following are medically ne: [place] Catheter Reason for tijerina catheter: Strict I&O vital signs Vital Sign Date Time Temp Pulse Resp B/P (MAP) Pulse Ox O2 Delivery O2 Flow Rate FiO2 04/11/25 20:45 83/50 04/11/25 20:00 99 15 99 Nasal Cannula* 3 32 04/11/25 16:00 97.9 97.9 Total Intake and Output 04/10/25 04/10/25 04/11/25 15:00 23:00 07:00 Intake Total 729.976 ml 553.991 ml 632 ml Output Total 300 ml 80 ml Balance 729.976 ml 253.991 ml 552 ml medications Current Medications Medications Dose Ordered Sig/Sravan Route Start Time Stop Time Status Last Admin Dose Admin Acetaminophen/ Hydrocodone Bitart 1 tab Q4HP PRN PO 03/20/25 12:15 04/10/25 22:10 1 TAB Ondansetron HCl 4 mg Q4HP PRN IV 03/20/25 12:15 03/26/25 08:18 4 MG Docusate Sodium 100 mg BIDPRN PRN PO 03/20/25 12:15 Acetaminophen 650 mg Q6HP PRN PO 03/20/25 12:15 03/28/25 10:59 650 MG Nitroglycerin 0.4 mg Q5MINP PRN SL 03/20/25 12:15 03/25/25 09:26 0.4 MG Morphine Sulfate 2 mg Q30M PRN IV 03/20/25 12:15 03/25/25 09:43 2 MG Allopurinol 100 mg DAILY PO 03/21/25 10:00 04/11/25 09:44 100 MG Apixaban 2.5 mg BID PO 03/20/25 22:00 04/11/25 09:44 2.5 MG Cilostazol 100 mg BID PO 03/20/25 22:00 04/11/25 09:44 100 MG Patient Own Medication 1 tab DAILY PO 03/21/25 10:00 UNV Patient Own Medication 1 tab DAILY PO 03/21/25 10:00 UNV Gabapentin 300 mg DAILY PO 03/21/25 10:00 04/11/25 09:44 300 MG Diphenhydramine HCl 50 mg [id number] PRN PO 03/21/25 16:45 03/21/25 22:57 50 MG Patient Own Medication 1 tab BID PO 03/21/25 22:00 04/11/25 09:45 1 TAB Throat Lozenges 1 liv Q2HP PRN MT 03/23/25 04:00 03/23/25 14:52 1 LIV Pantoprazole Sodium 40 mg DAILY IV 03/26/25 10:00 04/11/25 09:44 40 MG Magnesium Oxide 400 mg DAILY PO 03/27/25 10:00 04/11/25 09:44 400 MG Ertapenem 0.5 gm DAILY IM 03/27/25 11:15 Cancel Diagnostic Test (Pha) 1 strip Q6HR 03/27/25 18:00 04/11/25 18:50 1 STRIP Insulin Human Regular FOLLOW SLIDING SCALE Q6HR SC 03/27/25 18:00 04/11/25 18:50 2 UNITS Dextrose 50 ml UD IV 03/27/25 12:30 Norepinephrine Bitartrate 250 ml @ 0.938 mls/ hr Q24H IV 03/28/25 09:15 04/11/25 20:12 0.938 MLS/HR Amiodarone HCl 200 mg Q12HR PO 03/29/25 10:00 04/11/25 09:44 200 MG Nystatin 1 applic DAILY TOP 04/01/25 10:00 04/11/25 09:45 1 APPLIC Multivit/Ca Carb/ B Cmplx/FA/Prenat 1 tab DAILY PO 04/03/25 10:00 04/11/25 09:44 1 TAB Ferrous Sulfate 325 mg BIDWM PO 04/03/25 18:00 04/11/25 18:28 325 MG Midodrine 10 mg TID@0600,1200,1800 PO 04/04/25 12:00 04/11/25 18:28 10 MG Albuterol 2.5 mg Q4HR NEB 04/06/25 14:00 04/11/25 18:29 2.5 MG Ipratropium [place] 0.5 mg Q4HR NEB 04/06/25 14:00 04/11/25 18:29 0.5 MG Ertapenem 1 gm/ Sodium Chloride 50 ml @ 100 mls/hr DAILY IV 04/08/25 14:00 04/11/25 09:50 100 MLS/HR Bumetanide 3 mg BIDD IV 04/08/25 18:00 04/11/25 18:54 3 MG Amino Acids 0 ml @ 0 mls/hr PER PHARMACY IV 04/09/25 09:00 Levothyroxine Sodium 50 mcg DAILY IV 04/09/25 10:00 04/11/25 09:44 50 MCG Fat Emulsion Intravenous 200 ml/Sodium Chloride 30 meq/ Sodium Phosphate 10 meq/Potassium Chloride 40 meq/ Magnesium Sulfate 8 meq/ Multivitamins 10 ml/Chromium/ Copper/Manganese/ Zinc 1 ml/Amino Acids/Dextrose/ Purified Water 1,543 ml @ 64 mls/hr Q24H7M IV 04/10/25 22:00 04/11/25 21:59 04/10/25 21:50 64 MLS/HR Fat Emulsion Intravenous 250 ml/Sodium Chloride 40 meq/ Potassium Chloride 40 meq/ Potassium Phosphate 22 meq/ Magnesium Sulfate 8 meq/ Multivitamins 10 ml/Amino Acids/ Dextrose/Purified Water 1,647 ml @ 68 mls/hr [id number] IV 04/11/25 22:00 04/12/25 21:59 laboratory and microbiology Laboratory Tests 04/11/25 03:40 Test 04/11/25 03:40 Range/Units Serum Glucose 130 H 74-106 mg/dL Assessment/Plan ,nImpression SCOT hypoxemia COPD pneumonia left hydronephrosis septic shock pt seen and examined Events Low oxygen requirements On 3 liters nasal cannula d/graded to Garret no new complaints pt bed bound S/p percutaneous drain placement for peritoneal abscess Labs and imaging studies reviewed management Supplemental oxygen keep sats above 90% bronchodilators for copd HD per nephrology continue antibiotics f/u cultures gi and dvt proph Dietary Evaluation Review Comments: Renal Specific 60g CCHO-60 Cardiac Diet d/t SCOT over CKD and low GFR Expected Outcomes/Goals: less uremic symptoms, better weight management Plan discussed with: Patient CC Plasma Assessment Blood Product Administration S: [id number] MD Apr 11, 2025 21:08
[2025-04-11] MEDS: TPN PER PHARMACY IV NR (21:47)
[2025-04-12] VITALS (87 sets, daily range): BP systolic 72–125; BP diastolic 29–61; PULSE 86–106; RESP 11–24; TEMP 97.7–98.6; O2SAT 93–100
[2025-04-12 06:06] LABS: Hemoglobin 7.4 g/dL (12.2-16.2)
[2025-04-12 06:09] LABS: Hematocrit 23.0 % (36.0-46.0); Mean Corpuscular Hemoglobin 29.1 pg (28.0-32.0); Mean Corpuscular Volume 90.3 fL (80.0-100.0); Nucleated Red Blood Cells % 0.2 %
[2025-04-12 06:18] LABS: Albumin 3.2 g/dL (3.2-4.8); Alkaline Phosphatase 100 U/L (46-116); Anion Gap 8 (5-15); BUN/Creatinine Ratio 15.6 (10.0-20.0); Calcium 9.6 mg/dL (8.7-10.4); Carbon Dioxide 29 mmol/L (20-31); Chloride 98 mmol/L (98-107); Magnesium 2.1 mg/dL (1.6-2.6); Potassium 3.8 mmol/L (3.5-5.1); Total Protein 6.0 g/dL (5.7-8.2)
[2025-04-12 06:19] LABS: Bilirubin, Total 0.8 mg/dL (0.2-1.0)
[2025-04-12 06:23] LABS: Alanine Aminotransferase < 9 U/L (7-40); Blood Urea Nitrogen 35 mg/dL (9-23); Glucose 119 mg/dL (74-106); Sodium 135 mmol/L (136-145)
[2025-04-12] MEDS: SODIUM CHL 0.9% 1000 ML BAG XX ONE (07:00)
--- NOTE | 2025-04-12 07:59 | DVHPN2 ---
Progress Note - Dictate Date Seen: Apr 12, 2025 Has the PT tested + for MRSA If YES, has PT been informed?: No Medical Necessity Reason Pt with a Central, PICC or Fol: Yes The following are medically ne: Tijerina Catheter Reason for tijerina catheter: Strict I&O vital signs Vital Sign Date Time Temp Pulse Resp B/P (MAP) Pulse Ox O2 Delivery O2 Flow Rate FiO2 04/12/25 07:00 96 14 114/51 (72) 96 04/12/25 06:46 Nasal Cannula 3.0 04/12/25 06:46 32 04/12/25 04:00 98.1 98.1 Total Intake and Output 04/11/25 04/11/25 04/12/25 15:00 23:00 07:00 Intake Total 812 ml 572.814 ml 1361.815 ml Output Total 100 ml 210 ml Balance 812 ml 472.814 ml 1151.815 ml medications Current Medications Medications Dose Ordered Sig/Sravan Route Start Time Stop Time Status Last Admin Dose Admin Acetaminophen/ Hydrocodone Bitart 1 tab Q4HP PRN PO 03/20/25 12:15 04/11/25 23:13 1 TAB Ondansetron HCl 4 mg Q4HP PRN IV 03/20/25 12:15 03/26/25 08:18 4 MG Docusate Sodium 100 mg BIDPRN PRN PO 03/20/25 12:15 Acetaminophen 650 mg Q6HP PRN PO 03/20/25 12:15 03/28/25 10:59 650 MG Nitroglycerin 0.4 mg Q5MINP PRN SL 03/20/25 12:15 03/25/25 09:26 0.4 MG Morphine Sulfate 2 mg Q30M PRN IV 03/20/25 12:15 03/25/25 09:43 2 MG Allopurinol 100 mg DAILY PO 03/21/25 10:00 04/11/25 09:44 100 MG Apixaban 2.5 mg BID PO 03/20/25 22:00 04/11/25 21:43 2.5 MG Cilostazol 100 mg BID PO 03/20/25 22:00 04/11/25 21:43 100 MG Patient Own Medication 1 tab DAILY PO 03/21/25 10:00 UNV Patient Own Medication 1 tab DAILY PO 03/21/25 10:00 UNV Gabapentin 300 mg DAILY PO 03/21/25 10:00 04/11/25 09:44 300 MG Diphenhydramine HCl 50 mg [id number] PRN PO 03/21/25 16:45 03/21/25 22:57 50 MG Patient Own Medication 1 tab BID PO 03/21/25 22:00 04/11/25 21:44 1 TAB Throat Lozenges 1 liv Q2HP PRN MT 03/23/25 04:00 03/23/25 14:52 1 LIV Pantoprazole Sodium 40 mg DAILY IV 03/26/25 10:00 04/11/25 09:44 40 MG Magnesium Oxide 400 mg DAILY PO 03/27/25 10:00 04/11/25 09:44 400 MG Ertapenem 0.5 gm DAILY IM 03/27/25 11:15 Cancel Diagnostic Test (Pha) 1 strip Q6HR 03/27/25 18:00 04/12/25 06:11 1 STRIP Insulin Human Regular FOLLOW SLIDING SCALE Q6HR SC 03/27/25 18:00 04/12/25 06:11 2 UNITS Dextrose 50 ml UD IV 03/27/25 12:30 Norepinephrine Bitartrate 250 ml @ 0.938 mls/ hr Q24H IV 03/28/25 09:15 04/11/25 20:12 0.938 MLS/HR Amiodarone HCl 200 mg Q12HR PO 03/29/25 10:00 04/11/25 21:43 200 MG Nystatin 1 applic DAILY TOP 04/01/25 10:00 04/11/25 09:45 1 APPLIC Multivit/Ca Carb/ B Cmplx/FA/Prenat 1 tab DAILY PO 04/03/25 10:00 04/11/25 09:44 1 TAB Ferrous Sulfate 325 mg BIDWM PO 04/03/25 18:00 04/11/25 18:28 325 MG Midodrine 10 mg TID@0600,1200,1800 PO 04/04/25 12:00 04/12/25 06:13 10 MG Albuterol 2.5 mg Q4HR NEB 04/06/25 14:00 04/12/25 06:46 2.5 MG Ipratropium [place] 0.5 mg Q4HR NEB 04/06/25 14:00 04/12/25 06:46 0.5 MG Ertapenem 1 gm/ Sodium Chloride 50 ml @ 100 mls/hr DAILY IV 04/08/25 14:00 04/11/25 09:50 100 MLS/HR Bumetanide 3 mg BIDD IV 04/08/25 18:00 04/12/25 06:12 3 MG Amino Acids 0 ml @ 0 mls/hr PER PHARMACY IV 04/09/25 09:00 Levothyroxine Sodium 50 mcg DAILY IV 04/09/25 10:00 04/11/25 09:44 50 MCG Fat Emulsion Intravenous 250 ml/Sodium Chloride 40 meq/ Potassium Chloride 40 meq/ Potassium Phosphate 22 meq/ Magnesium Sulfate 8 meq/ Multivitamins 10 ml/Amino Acids/ Dextrose/Purified Water 1,647 ml @ 68 mls/hr [id number] IV 04/11/25 22:00 04/12/25 21:59 04/11/25 21:47 68 MLS/HR laboratory and microbiology Laboratory Tests 04/12/25 04:29 Test 04/12/25 04:29 Range/Units Serum Glucose 119 H 74-106 mg/dL Assessment/Plan Patient is a 74-year-old female who was admitted on March 20, 2025 for abdominal pain/nausea/vomiting. She is admitted to ICU for septic shock. On March 24, 2025, cardiology was involved for cardiac aspects of care. Patient is known to our practice from before and previous admissions. She is known to have significant alcohol abuse (drinks whiskey every day) and also history of pulmonary hypertension/type 2 pulmonary hypertension, diastolic heart failure. Does have poor functional capacity and is bed-bound. Is significantly morbidly obese. Does have baseline history of atrial fibrillation and is on Eliquis as outpatient. Is found to have septic shock and possible pelvic abscess. Is seen by surgery/Urology/pulmonary/GI. Denies chest pains. Denies palpitations. Is noncompliant with medication and followups. While being managed in ICU was found to have atrial fibrillation with RVR. She mentions that she does go to [employer] regularly. She has had multiple surgeries in the bilateral feet. She also has history of COPD/asthma with chronic respiratory failure (on home oxygen). Morbidly obese. Not in acute distress. No JVD. Mucosa is dry. Mucosa is pink. No JVD. No carotid bruit. Not using accessory muscles of breathing. Scattered rhonchi in the lungs is heard. Cardiac: Irregular, no thrill. Abdomen is obese and soft. There is no gross hepatomegaly, but it is presence can not be ruled out (body habitus, morbidly obese). There is 3+ edema in bilateral lower extremities which extends to abdominal wall. Past medical history includes morbid obesity, atrial fibrillation (on Eliquis as outpatient), COPD/asthma with chronic respiratory failure on home oxygen, morbid obesity, hypertension, hyperlipidemia, chronic lymphedema, Diastolic heart failure with type 2 pulmonary hypertension, rheumatoid arthritis, osteoarthritis, peripheral vascular disease, CKD (stage IV), anemia, alcohol abuse, neuropathy, gout, old history of right and left foot fracture and their management, status post right knee replacement, status post , bed-bound at baseline and functional quadriplegia. Patient drinks whiskey daily. Goes to Nephrology regularly. Reportedly, there has been some concern about going to have fistula creation on preparation for dialysis? Echocardiogram of January 03 2024 (performed in [facility]) revealed ejection fraction of 60%, mild biatrial enlargement, mild MR/TR and right ventricular systolic pressure of 31 mm Hg. Echocardiogram of (performed in [facility]) revealed: EF of 50 to 55%, Dilated right ventricle with normal systolic function. Severe biatrial enlargement. Mild AI, mild to moderate MR, moderate TR and RVSP of 51 mmHg. Ascending Aorta was 3.7 cm. Echocardiogram of November 09, 2024 revealed ejection fraction of 72%, mild right ventricular enlargement, moderate biatrial enlargement, mild to moderate tricuspid regurgitation, mild mitral regurgitation, right ventricular systolic pressure 54 mm Hg Echocardiogram of February 23, 2025 revealed ejection fraction of around 50%, mild concentric left ventricular hypertrophy, right ventricular enlargement with preserved systolic function. Biatrial enlargement, mild aortic insufficiency, [id number] mitral regurgitation and tricuspid regurgitation. IVC was significantly dilated. Right ventricular systolic pressure of of 55 mm Hg Hemoglobin: 6.7 - 8.6 - 8.1 - 7.6 - 7.9 - 7.7 - 7.8 - 7.8 - 7.6 - 7.5 - 7.1 - 7.0 - 8.5 - 8.2 - 7.6 - 7.7 - 7.5 - 7.1 - 7.0 - 6.8 - 7.9 - 7.6 - 7.8 - 7.6 - 7.5 - 7.4 Creatinine: 3.29 - 2.63 - 2.77 - 2.59 - 2.13 - 1.98 - 1.98 - 2.47- 2.98 - 3.36 - 3.56 - 3.83 - 4.12 - 4.27 - 4.67 - 4.54 - 2.92 - 2.91 - 2.98 - 2.06 - 2.36 - 2.49 - 1.96 - 2.34 - 1.92 - 2.25 Potassium: 3.9 - 3.4 - 3.8 - 3.3 - 3.4 - 3.9 - 3.5 - 3.5 - 3.3 - 3.4 - 3.7 - 3.8 - 4.0 - 4.3 - 4.0 - 3.6 - 3.3 - 3.5 - 3.9 - 3.9 - 4.0 - 3.9 - 3.7 - 3.3 - 2.7 - 3.8 - 3.8 Troponin (high sensitive): 32 - 31 - 34 TSH: 0.17 - 0.15 T3: 0.40 (low) T4: 5.7 Free T4: 1.27 Free T3: 1.55 (low) Urine and Aspirate culture: ESBL E-coli Chest x-ray revealed: IMPRESSION: Cardiomegaly. Repeat chest x-ray revealed: IMPRESSION: 1. Cardiomegaly with increased interstitial prominence suggestive of CHF exacerbation. 2. Pulmonary arterial hypertension. Repeat chest x-ray revealed: IMPRESSION: Cardiomegaly with mild pulmonary congestion. . Repeat chest x-ray revealed: IMPRESSION: Cardiomegaly with pulmonary congestion and edema. Superimposed pneumonia cannot be excluded. Repeat chest x-ray revealed: IMPRESSION: Worsening right lower lung airspace disease. Suggestion of small bilateral pleural effusions. Repeat chest xray revealed: IMPRESSION: No significant interval change Repeat chest xry revealed: IMPRESSION: 1. Right internal jugular hemodialysis catheter in place with tip at the cavoatrial junction. 2. Right internal jugular catheter in place unchanged 3. Findings suggest worsening airspace disease in probable congestive failure or volume overload. Repeat chest xry revealed: IMPRESSION: Similar lung aeration. Small bilateral pleural effusion. Cardiomegaly. Repeat chest xry revealed: IMPRESSION: Interval placement of left PICC with tip projecting over the superior vena cava. Otherwise no significant change compared to prior exam. Abdominal ultrasound revealed: IMPRESSION: Small left hydronephrosis Renal scan revealed: IMPRESSION: Bilateral renal obstruction is present which is not response to Lasix administration suggesting that the kidney may be minimally functional. Abdomen and pelvic CT scan revealed: IMPRESSION: Moderate left hydroureteronephrosis. Suggestion of possible small abscess formation in the left hemipelvis associated with the sigmoid colon measuring 5.7 cm. This may represent site of ureteral obstruction. Clinical correlation advised. Examination is limited secondary to lack of intravenous and oral contrast administration. Abdomen and pelvis CT revealed: IMPRESSION: Sigmoid colonic diverticulitis with an adjacent 6 cm fluid collection with gas, could be an abscess. Probable fistula of the sigmoid to the fluid collection, and possibly with the urinary bladder, which is decompressed with a Tijerina. Possible trace left hydronephrosis with perinephric fat stranding. Repeat CT of abdomen and pelvis revealed: IMPRESSION: Small to moderate bilateral pleural effusions and associated compressive atelectasis / consolidation. Left lower quadrant pelvic drain in satisfactory position with significant interval decrease in size of abscess currently measuring 2.2 cm, previously 5.[address] guided abscess drainage: IMPRESSION: CT guided placement of 8 [place] pigtail drain into a left hemipelvic abscess with 30 mL purulent fluid aspirated. PLAN: Routine tube care. Renal ultrasound revealed: IMPRESSION: Unremarkable renal ultrasound without hydronephrosis seen. EKG revealed atrial fibrillation with RVR Tele reveals atrial fibrillation with RVR Echocardiogram revealed: Left ventricle: Mild concentric left ventricular hypertrophy was seen. LVEF was around 50%. Right ventricle was mildly dilated with reduced systolic function. Both atria were dilated. Aortic valve was not well visualized. There was no aortic insufficiency/stenosis. There was mild mitral regurgitation. There was [id number] tricuspid regurgitation. Pulmonary valve was not well visualized. Right ventricular systolic pressure was assessed at 50 mm Hg. IVC was dilated. There was no pericardial effusion. Patient is a 74-year-old female with known history of diastolic heart failure with type 2 pulmonary hypertension who presented with abdominal pain. He is admitted to ICU with septic shock. Did have thrombocytopenia which slowly improved. Was significantly anemic and was transfused PRBC. There has been question about pelvic abscess and the patient is on antibiotics. Patient is being followed by surgery/Urology/pulmonary/GI. It is of note that the patient does have history of significant alcohol abuse (drinks good amount of whiskey daily) which could contribute to to some component of the clinical picture. Does have baseline history of pulmonary hypertension. Usually is on some amount of diuretic (Bumex) as outpatient. Clinically, the patient does have dry mucosa and maybe behind fluids at the time of evaluation. Does have baseline poor functional capacity. Does have history of recent sepsis. s/p CT guided abscess drainage. Seen by Nephrology. Diuretics are on hold. TFT are in favor of subclinical thyroid problem. Still with poor kidney function. Nephrology suggested hemodialysis, patient is hesitant. Significant anemia, status post PRBC transfusion Thrombocytopenia, resolved Septic shock SCOT on CKD Hydronephrosis Pelvic abscess Transaminitis Acute on chronic diastolic heart failure Pulmonary Hypertension, type 2 Alcohol abuse Morbid obesity Poor functional capacity Bed-bound at baseline Atrial fibrillation with RVR Hyperlipidemia Osteoarthritis Rheumatoid arthritis Peripheral vascular disease Abdominal abscess? s/p CT guided abscess drainage s/p PRBC transfusion Cardiac suggestion for management: Manage in [facility] Follow-up electrolytes and kidney function tests and correct abnormalities Full anticoagulation (on Eliquis presently), long-term On Midodrine Started on HD On oral amiodarone Evaluation and management of sepsis/infection as per primary team Evaluation and management of alcohol abuse/prevention of withdrawal as per primary team Evaluation and management of pelvic abscess/hydronephrosis as per primary team/surgery/Urology Further evaluation and management depends on the above and clinical course A total of 75 minutes was spent reviewing the patient record, examining the patient, making a diagnostic and therapeutic plan, discussing this plan with medical personnel, following up on diagnostic studies and following the patient for clinical stability excluding any and all procedures. At least 50% of this time was spent in direct, [id number] contact. Thank you for allowing me to participate in this patient's care. Further recommendations will depend on patient's clinical course. Please do not hesitate to contact me if you have any questions or concerns. This medical document was created using electronic medical record system with [employer] dictation system. Although this document has been carefully reviewed, there may still be some phonetic and typographical errors. These areas are purely typographical due to the imperfection of the software programs, and do not reflect any compromise in the patient's medical care. Dietary Evaluation Review Comments: Renal Specific 60g CCHO-60 Cardiac Diet d/t SCOT over CKD and low GFR Expected Outcomes/Goals: less uremic symptoms, better weight management Plan discussed with: Patient, Other (nurse) CC Plasma Assessment Blood Product Administration S: [id number] AUSTIN ROMERO MD Apr 12, 2025 07:59
--- NOTE | 2025-04-12 09:02 | DVHPN2 ---
Subjective Denies any symptoms at this time Reviewed: Care Plan, H&P, Labs, Medications, Previous Orders, Radiology Changes from previous H/P or p: No Changes General: Per HPI Eyes: No Pain, No Vision change, No Conjunctivae inflammation, No Eyelid inflammation, No Other, No Redness ENT: No Ear pain, No Ear discharge, No Nose pain, No Nose discharge, No Nose congestion, No Mouth pain, No Mouth swelling, No Throat pain, No Throat swelling, No Other Cardiovascular: No Chest Pain, No Palpitations, No Orthopnea, No Paroxysmal Noc. Dyspnea, No Edema, No Lt Headedness, No Other Respiratory: No Cough, No Dry, No Shortness of breath, No SOB with excertion, No Wheezing, No Hemoptysis, No Pleuritic Pain, No Sputum, No Other Gastrointestinal: Nausea, Vomiting, Abdominal Pain Genitourinary: No Dysuria, No Frequency, No Incontinence, No Hematuria, No Retention, No Other Musculoskeletal: No other, No neck pain, No shoulder pain, No arm pain, No back pain, No hand pain, No leg pain, No foot pain Skin: No Rash, No Lesions, No Jaundice, No Bruising, No Other Objective Vitals Vital Signs Date Time Temp Pulse Resp B/P (MAP) Pulse Ox O2 Delivery O2 Flow Rate FiO2 04/12/25 07:00 96 14 114/51 (72) 96 04/12/25 06:46 Nasal Cannula 3.0 04/12/25 06:46 32 04/12/25 04:00 98.1 98.1 Intake/Output Intake and Output 04/12/25 07:00 Intake Total 2746.629 ml Output Total 310 ml Balance 2436.629 ml Intake Oral 300 ml IV Total 2446.629 ml Output Urine Total 300 ml Gastric Drainage Total 10 ml # Bowel Movements 1 General Appearance: Alert, Oriented X3, Cooperative, Other HEENT: Atraumatic, PERRLA Cardiovascular: Normal S1, Normal S2, Other Abdomen: Normal bowel sounds, Other Extremities: No edema, Normal pulses Neuro: Sensation intact, Cranial nerves 3-12 NL Skin: Dry, Intact Psych/Mental Status: Mental status NL, Mood NL Medications Current Medications Medications Dose Ordered Sig/Sravan Route Start Time Stop Time Status Last Admin Dose Admin Acetaminophen/ Hydrocodone Bitart 1 tab Q4HP PRN PO 03/20/25 12:15 04/11/25 23:13 1 TAB Ondansetron HCl 4 mg Q4HP PRN IV 03/20/25 12:15 03/26/25 08:18 4 MG Docusate Sodium 100 mg BIDPRN PRN PO 03/20/25 12:15 Acetaminophen 650 mg Q6HP PRN PO 03/20/25 12:15 03/28/25 10:59 650 MG Nitroglycerin 0.4 mg Q5MINP PRN SL 03/20/25 12:15 03/25/25 09:26 0.4 MG Morphine Sulfate 2 mg Q30M PRN IV 03/20/25 12:15 03/25/25 09:43 2 MG Allopurinol 100 mg DAILY PO 03/21/25 10:00 04/11/25 09:44 100 MG Apixaban 2.5 mg BID PO 03/20/25 22:00 04/11/25 21:43 2.5 MG Cilostazol 100 mg BID PO 03/20/25 22:00 04/11/25 21:43 100 MG Patient Own Medication 1 tab DAILY PO 03/21/25 10:00 UNV Patient Own Medication 1 tab DAILY PO 03/21/25 10:00 UNV Gabapentin 300 mg DAILY PO 03/21/25 10:00 04/11/25 09:44 300 MG Diphenhydramine HCl 50 mg [id number] PRN PO 03/21/25 16:45 03/21/25 22:57 50 MG Patient Own Medication 1 tab BID PO 03/21/25 22:00 04/11/25 21:44 1 TAB Throat Lozenges 1 liv Q2HP PRN MT 03/23/25 04:00 03/23/25 14:52 1 LIV Pantoprazole Sodium 40 mg DAILY IV 03/26/25 10:00 04/11/25 09:44 40 MG Magnesium Oxide 400 mg DAILY PO 03/27/25 10:00 04/11/25 09:44 400 MG Ertapenem 0.5 gm DAILY IM 03/27/25 11:15 Cancel Diagnostic Test (Pha) 1 strip Q6HR 03/27/25 18:00 04/12/25 06:11 1 STRIP Insulin Human Regular FOLLOW SLIDING SCALE Q6HR SC 03/27/25 18:00 04/12/25 06:11 2 UNITS Dextrose 50 ml UD IV 03/27/25 12:30 Norepinephrine Bitartrate 250 ml @ 0.938 mls/ hr Q24H IV 03/28/25 09:15 04/11/25 20:12 0.938 MLS/HR Amiodarone HCl 200 mg Q12HR PO 03/29/25 10:00 04/11/25 21:43 200 MG Nystatin 1 applic DAILY TOP 04/01/25 10:00 04/11/25 09:45 1 APPLIC Multivit/Ca Carb/ B Cmplx/FA/Prenat 1 tab DAILY PO 04/03/25 10:00 04/11/25 09:44 1 TAB Ferrous Sulfate 325 mg BIDWM PO 04/03/25 18:00 04/11/25 18:28 325 MG Midodrine 10 mg TID@0600,1200,1800 PO 04/04/25 12:00 04/12/25 06:13 10 MG Albuterol 2.5 mg Q4HR NEB 04/06/25 14:00 04/12/25 06:46 2.5 MG Ipratropium [place] 0.5 mg Q4HR NEB 04/06/25 14:00 04/12/25 06:46 0.5 MG Ertapenem 1 gm/ Sodium Chloride 50 ml @ 100 mls/hr DAILY IV 04/08/25 14:00 04/11/25 09:50 100 MLS/HR Bumetanide 3 mg BIDD IV 04/08/25 18:00 04/12/25 06:12 3 MG Amino Acids 0 ml @ 0 mls/hr PER PHARMACY IV 04/09/25 09:00 Levothyroxine Sodium 50 mcg DAILY IV 04/09/25 10:00 04/11/25 09:44 50 MCG Fat Emulsion Intravenous 250 ml/Sodium Chloride 40 meq/ Potassium Chloride 40 meq/ Potassium Phosphate 22 meq/ Magnesium Sulfate 8 meq/ Multivitamins 10 ml/Amino Acids/ Dextrose/Purified Water 1,647 ml @ 68 mls/hr [id number] IV 04/11/25 22:00 04/12/25 21:59 04/11/25 21:47 68 MLS/HR Laboratory Results Laboratory Tests 04/12/25 04:29 Chemistry Test 04/12/25 04:29 Albumin 3.2 g/dL (3.2-4.8) Calcium Level 9.6 mg/dL (8.7-10.4) Magnesium Level 2.1 mg/dL (1.6-2.6) Phosphorus Level 2.1 mg/dL (2.4-5.1) L Total Protein 6.0 g/dL (5.7-8.2) LFT Test 04/12/25 04:29 Alanine Aminotransferase (ALT) < 9 U/L (7-40) Alkaline Phosphatase 100 U/L (46-116) Aspartate Amino Transferase (AST) 11 U/L (13-40) L Total Bilirubin 0.8 mg/dL (0.2-1.0) Urinalysis Test 03/20/25 09:34 Urine Color Colorless (Yellow) Urine Clarity Turbid (Clear) H Urine pH 5.0 (5.0-9.0) Urine Specific [place] 1.015 (1.001-1.035) Urine Protein Negative (Negative) Urine Ketones Negative (Negative) Urine Blood Negative /uL (Negative) Urine Nitrite Negative (Negative) Urine Bilirubin Negative (Negative) Urine Urobilinogen Normal mg/dL (Negative) Urine Leukocyte Esterase 3+ /uL (Negative) Urine RBC 1 /hpf (0 - 4) Urine Microscopic WBC 255 /HPF (0-5) H Urine Squamous Epithelial Cells Few /hpf (<5) Urine Bacteria Few /hpf (None Seen) H Urine Glucose Normal mg/dL (Normal) Microbiology Microbiology Date/Time Source Procedure Growth Status 03/26/25 15:00 Aspirate Gram Stain - Final Complete 03/26/25 15:00 Body Fluid Culture - Final Escherichia coli - ESBL Enterobacter cloacae Proteus mirabilis Complete 03/23/25 04:30 Throat Nose/Throat Culture - Final Complete 03/21/25 18:00 Urine - Catheterized Urine Culture - Final Escherichia coli - ESBL Klebsiella pneumoniae - ESBL Complete 03/20/25 21:52 Nose MRSA Screen - Final Complete Labs and/or images reviewed: Labs reviewed by me, Image(s) reviewed by me Assessment/Plan Assessment/Plan Impression: -septic shock -diverticular abscess -AFib with RVR -morbid obesity -obstructive uropathy -CKD stage 4 -acute kidney injury, vasomotor nephropathy -acute on chronic systolic and diastolic heart failure -bed-bound status -complicated cystitis with ESBL in the urine. Plan: Events: Patient back on norepinephrine drip at 2 micrograms/minute. Patient is asymptomatic. White blood cell count remains normal. -social service consultation to transfer to long-term acute care Facility -norepinephrine p.r.n. -continue midodrine -continue Invanz, add Flagyl -NPO except meds and TPN -continue anticoagulation with Eliquis -repeat labs in a.m. Critical care time spent with patient discussing and formulating plan of care: 40 minutes. This does not include time spent performing procedures. This medical document was created using an electronic medical record system with [employer] dictation system. Although this document has been carefully reviewed, there may still be some phonetic and typographical errors. These areas are purely typographical due to imperfections of the software programs, and do not reflect any compromise in the patient's medical care. Plan discussed with: Patient, Other (RN) My Orders Orders - GONZALO ASKEW NP Procedure Category Date Status Time Amino Acid PHA 04/11/25 In Process Infusion... W/Fat 22:00 Tpn Per Pharmacy EBONY 04/11/25 In Process 22:00 Date of Service: Apr 12, 2025 Billing Provider: GONZALO ASKEW NP Common Visit Codes: 85361-ZULUMNTA CARE 30-74 MIN GONZALO ASKEW NP Apr 12, 2025 09:02
[2025-04-12] MEDS: SODIUM PHOSPHATES 10 MEQ in SODIUM CHL 0.9% 100 ML IV ONE (15:28)
--- NOTE | 2025-04-12 17:13 | DVHPN2 ---
Progress Note - Dictate Date Seen: Apr 12, 2025 Has the PT tested + for MRSA If YES, has PT been informed?: No Medical Necessity Reason Pt with a Central, PICC or Fol: Yes The following are medically ne: Tijerina Catheter Reason for tijerina catheter: Strict I&O vital signs Vital Sign Date Time Temp Pulse Resp B/P (MAP) Pulse Ox O2 Delivery O2 Flow Rate FiO2 04/12/25 16:54 84/37 04/12/25 14:30 94 16 99 04/12/25 12:00 97.9 97.9 04/12/25 10:00 Nasal Cannula 3.0 04/12/25 10:00 32 Total Intake and Output 04/11/25 04/11/25 04/12/25 15:00 23:00 07:00 Intake Total 812 ml 572.814 ml 1361.815 ml Output Total 100 ml 210 ml Balance 812 ml 472.814 ml 1151.815 ml medications Current Medications Medications Dose Ordered Sig/Sravan Route Start Time Stop Time Status Last Admin Dose Admin Acetaminophen/ Hydrocodone Bitart 1 tab Q4HP PRN PO 03/20/25 12:15 04/11/25 23:13 1 TAB Ondansetron HCl 4 mg Q4HP PRN IV 03/20/25 12:15 03/26/25 08:18 4 MG Docusate Sodium 100 mg BIDPRN PRN PO 03/20/25 12:15 Acetaminophen 650 mg Q6HP PRN PO 03/20/25 12:15 03/28/25 10:59 650 MG Nitroglycerin 0.4 mg Q5MINP PRN SL 03/20/25 12:15 03/25/25 09:26 0.4 MG Morphine Sulfate 2 mg Q30M PRN IV 03/20/25 12:15 03/25/25 09:43 2 MG Allopurinol 100 mg DAILY PO 03/21/25 10:00 04/12/25 12:25 100 MG Apixaban 2.5 mg BID PO 03/20/25 22:00 04/12/25 12:27 2.5 MG Cilostazol 100 mg BID PO 03/20/25 22:00 04/12/25 12:28 100 MG Patient Own Medication 1 tab DAILY PO 03/21/25 10:00 UNV Patient Own Medication 1 tab DAILY PO 03/21/25 10:00 UNV Gabapentin 300 mg DAILY PO 03/21/25 10:00 04/12/25 12:24 300 MG Diphenhydramine HCl 50 mg [id number] PRN PO 03/21/25 16:45 03/21/25 22:57 50 MG Patient Own Medication 1 tab BID PO 03/21/25 22:00 04/12/25 12:30 1 TAB Throat Lozenges 1 liv Q2HP PRN MT 03/23/25 04:00 03/23/25 14:52 1 LIV Pantoprazole Sodium 40 mg DAILY IV 03/26/25 10:00 04/12/25 12:27 40 MG Magnesium Oxide 400 mg DAILY PO 03/27/25 10:00 04/12/25 12:27 400 MG Ertapenem 0.5 gm DAILY IM 03/27/25 11:15 Cancel Diagnostic Test (Pha) 1 strip Q6HR 03/27/25 18:00 04/12/25 12:28 1 STRIP Insulin Human Regular FOLLOW SLIDING SCALE Q6HR SC 03/27/25 18:00 04/12/25 12:26 2 UNITS Dextrose 50 ml UD IV 03/27/25 12:30 Norepinephrine Bitartrate 250 ml @ 0.938 mls/ hr Q24H IV 03/28/25 09:15 04/11/25 20:12 0.938 MLS/HR Amiodarone HCl 200 mg Q12HR PO 03/29/25 10:00 04/12/25 12:28 200 MG Nystatin 1 applic DAILY TOP 04/01/25 10:00 04/12/25 10:00 1 APPLIC Multivit/Ca Carb/ B Cmplx/FA/Prenat 1 tab DAILY PO 04/03/25 10:00 04/12/25 12:27 1 TAB Ferrous Sulfate 325 mg BIDWM PO 04/03/25 18:00 04/12/25 12:25 325 MG Midodrine 10 mg TID@0600,1200,1800 PO 04/04/25 12:00 04/12/25 12:27 10 MG Albuterol 2.5 mg Q4HR NEB 04/06/25 14:00 04/12/25 14:23 2.5 MG Ipratropium [place] 0.5 mg Q4HR NEB 04/06/25 14:00 04/12/25 14:23 0.5 MG Ertapenem 1 gm/ Sodium Chloride 50 ml @ 100 mls/hr DAILY IV 04/08/25 14:00 04/12/25 15:27 100 MLS/HR Bumetanide 3 mg BIDD IV 04/08/25 18:00 04/12/25 06:12 3 MG Amino Acids 0 ml @ 0 mls/hr PER PHARMACY IV 04/09/25 09:00 Levothyroxine Sodium 50 mcg DAILY IV 04/09/25 10:00 04/12/25 12:28 50 MCG Fat Emulsion Intravenous 250 ml/Sodium Chloride 40 meq/ Potassium Chloride 40 meq/ Potassium Phosphate 22 meq/ Magnesium Sulfate 8 meq/ Multivitamins 10 ml/Amino Acids/ Dextrose/Purified Water 1,647 ml @ 68 mls/hr [id number] IV 04/11/25 22:00 04/12/25 21:59 04/11/25 21:47 68 MLS/HR Metronidazole 100 ml @ 100 mls/hr Q8HR IV 04/12/25 14:00 04/12/25 15:28 100 MLS/HR Fat Emulsion Intravenous 200 ml/Sodium Chloride 60 meq/ Potassium Chloride 40 meq/ Potassium Phosphate 20 meq/ Magnesium Sulfate 8 meq/ Multivitamins 10 ml/Chromium/ Copper/Manganese/ Zinc 1 ml/Amino Acids/Dextrose/ Purified Water 1,552.5455 ml @ 64 mls/hr [id number] IV 04/12/25 22:00 04/13/25 21:59 laboratory and microbiology Laboratory Tests 04/12/25 04:29 Test 04/12/25 04:29 Range/Units Serum Glucose 119 H 74-106 mg/dL Assessment/Plan Impression SCOT hypoxemia COPD pneumonia left hydronephrosis septic shock pt seen and examined Events Low oxygen requirements On 3 liters nasal cannula On Levophed drip pt bed bound S/p percutaneous drain placement for peritoneal abscess Labs and imaging studies reviewed management Supplemental oxygen keep sats above 90% bronchodilators for copd HD per nephrology continue antibiotics f/u cultures pressors as needed for hemodynamic support gi and dvt proph Dietary Evaluation Review Comments: Renal Specific 60g CCHO-60 Cardiac Diet d/t SCOT over CKD and low GFR Expected Outcomes/Goals: less uremic symptoms, better weight management Plan discussed with: Patient CC Plasma Assessment Blood Product Administration S: [id number] MD Apr 12, 2025 17:13
--- NOTE | 2025-04-12 17:37 | DVHPN2 ---
Progress Note - Dictate Date Seen: Apr 12, 2025 Has the PT tested + for MRSA If YES, has PT been informed?: No Medical Necessity Reason Pt with a Central, PICC or Fol: Yes The following are medically ne: Tijerina Catheter Reason for tijerina catheter: Strict I&O vital signs Vital Sign Date Time Temp Pulse Resp B/P (MAP) Pulse Ox O2 Delivery O2 Flow Rate FiO2 04/12/25 17:00 89 14 114/61 (78) 98 04/12/25 16:00 Nasal Cannula* 3 32 04/12/25 16:00 98.6 98.6 Total Intake and Output 04/11/25 04/11/25 04/12/25 15:00 23:00 07:00 Intake Total 812 ml 572.814 ml 1361.815 ml Output Total 100 ml 210 ml Balance 812 ml 472.814 ml 1151.815 ml medications Current Medications Medications Dose Ordered Sig/Sravan Route Start Time Stop Time Status Last Admin Dose Admin Acetaminophen/ Hydrocodone Bitart 1 tab Q4HP PRN PO 03/20/25 12:15 04/11/25 23:13 1 TAB Ondansetron HCl 4 mg Q4HP PRN IV 03/20/25 12:15 03/26/25 08:18 4 MG Docusate Sodium 100 mg BIDPRN PRN PO 03/20/25 12:15 Acetaminophen 650 mg Q6HP PRN PO 03/20/25 12:15 03/28/25 10:59 650 MG Nitroglycerin 0.4 mg Q5MINP PRN SL 03/20/25 12:15 03/25/25 09:26 0.4 MG Morphine Sulfate 2 mg Q30M PRN IV 03/20/25 12:15 03/25/25 09:43 2 MG Allopurinol 100 mg DAILY PO 03/21/25 10:00 04/12/25 12:25 100 MG Apixaban 2.5 mg BID PO 03/20/25 22:00 04/12/25 12:27 2.5 MG Cilostazol 100 mg BID PO 03/20/25 22:00 04/12/25 12:28 100 MG Patient Own Medication 1 tab DAILY PO 03/21/25 10:00 UNV Patient Own Medication 1 tab DAILY PO 03/21/25 10:00 UNV Gabapentin 300 mg DAILY PO 03/21/25 10:00 04/12/25 12:24 300 MG Diphenhydramine HCl 50 mg [id number] PRN PO 03/21/25 16:45 03/21/25 22:57 50 MG Patient Own Medication 1 tab BID PO 03/21/25 22:00 04/12/25 12:30 1 TAB Throat Lozenges 1 liv Q2HP PRN MT 03/23/25 04:00 03/23/25 14:52 1 LIV Pantoprazole Sodium 40 mg DAILY IV 03/26/25 10:00 04/12/25 12:27 40 MG Magnesium Oxide 400 mg DAILY PO 03/27/25 10:00 04/12/25 12:27 400 MG Ertapenem 0.5 gm DAILY IM 03/27/25 11:15 Cancel Diagnostic Test (Pha) 1 strip Q6HR 03/27/25 18:00 04/12/25 12:28 1 STRIP Insulin Human Regular FOLLOW SLIDING SCALE Q6HR SC 03/27/25 18:00 04/12/25 12:26 2 UNITS Dextrose 50 ml UD IV 03/27/25 12:30 Norepinephrine Bitartrate 250 ml @ 0.938 mls/ hr Q24H IV 03/28/25 09:15 04/11/25 20:12 0.938 MLS/HR Amiodarone HCl 200 mg Q12HR PO 03/29/25 10:00 04/12/25 12:28 200 MG Nystatin 1 applic DAILY TOP 04/01/25 10:00 04/12/25 10:00 1 APPLIC Multivit/Ca Carb/ B Cmplx/FA/Prenat 1 tab DAILY PO 04/03/25 10:00 04/12/25 12:27 1 TAB Ferrous Sulfate 325 mg BIDWM PO 04/03/25 18:00 04/12/25 12:25 325 MG Midodrine 10 mg TID@0600,1200,1800 PO 04/04/25 12:00 04/12/25 12:27 10 MG Albuterol 2.5 mg Q4HR NEB 04/06/25 14:00 04/12/25 14:23 2.5 MG Ipratropium [place] 0.5 mg Q4HR NEB 04/06/25 14:00 04/12/25 14:23 0.5 MG Ertapenem 1 gm/ Sodium Chloride 50 ml @ 100 mls/hr DAILY IV 04/08/25 14:00 04/12/25 15:27 100 MLS/HR Bumetanide 3 mg BIDD IV 04/08/25 18:00 04/12/25 06:12 3 MG Amino Acids 0 ml @ 0 mls/hr PER PHARMACY IV 04/09/25 09:00 Levothyroxine Sodium 50 mcg DAILY IV 04/09/25 10:00 04/12/25 12:28 50 MCG Fat Emulsion Intravenous 250 ml/Sodium Chloride 40 meq/ Potassium Chloride 40 meq/ Potassium Phosphate 22 meq/ Magnesium Sulfate 8 meq/ Multivitamins 10 ml/Amino Acids/ Dextrose/Purified Water 1,647 ml @ 68 mls/hr [id number] IV 04/11/25 22:00 04/12/25 21:59 04/11/25 21:47 68 MLS/HR Metronidazole 100 ml @ 100 mls/hr Q8HR IV 04/12/25 14:00 04/12/25 15:28 100 MLS/HR Fat Emulsion Intravenous 200 ml/Sodium Chloride 60 meq/ Potassium Chloride 40 meq/ Potassium Phosphate 20 meq/ Magnesium Sulfate 8 meq/ Multivitamins 10 ml/Chromium/ Copper/Manganese/ Zinc 1 ml/Amino Acids/Dextrose/ Purified Water 1,552.5455 ml @ 64 mls/hr [id number] IV 04/12/25 22:00 04/13/25 21:59 laboratory and microbiology Laboratory Tests 04/12/25 04:29 Test 04/12/25 04:29 Range/Units Serum Glucose 119 H 74-106 mg/dL Assessment/Plan Assessment: Acute kidney injury superimposed on CKD 4 on intermittent HD Sepsis, urine culture: E coli and Klebsiella both of which are ESBL . Wound culture with E coli ESBL Pelvic abscess Status post drainage of left pelvic abscess Left hydronephrosis which has a resolved Acute on chronic diastolic heart failure Anemia status post transfusion of PRBC Pulmonary hypertension Atrial fibrillation Bed-bound patient Chronic alcoholism in remission, last alcoholic beverage three months ago. Hypokalemia Recommendation/plan Hemodialysis to continue on TTS schedule HD today () Continue Bumex b.i.d. health policy manager to arrange chair time, we will monitor for renal recovery within the next 90 days Fluid restriction less than 1 L per day, renal diet Midodrine 3 times a day and during dialysis Overall long-term prognosis is guarded Dietary Evaluation Review Comments: Renal Specific 60g CCHO-60 Cardiac Diet d/t SCOT over CKD and low GFR Expected Outcomes/Goals: less uremic symptoms, better weight management Plan discussed with: Patient CC Plasma Assessment Blood Product Administration S: [id number] MD Apr 12, 2025 17:37
--- NOTE | 2025-04-12 20:33 | DVHPN2 ---
Progress Note - Dictate Date Seen: Apr 12, 2025 Has the PT tested + for MRSA If YES, has PT been informed?: No Medical Necessity Reason Pt with a Central, PICC or Fol: Yes The following are medically ne: Tijerina Catheter Reason for tijerina catheter: Strict I&O Subjective No new complaints ; abdominal pain improved Currently NPO on IV TPN Patient is resting comfortably ; no sob ALEKSANDAR drain output is minimal bloody less than 5 mL HD today on IV Bumex Patient has history of chronic alcohol use been abstinence for about three months vital signs Vital Sign Date Time Temp Pulse Resp B/P (MAP) Pulse Ox O2 Delivery O2 Flow Rate FiO2 04/12/25 19:00 97 15 84/44 (57) 100 04/12/25 18:00 Nasal Cannula* 3 32 04/12/25 16:00 98.6 98.6 Total Intake and Output 04/11/25 04/11/25 04/12/25 15:00 23:00 07:00 Intake Total 812 ml 572.814 ml 1361.815 ml Output Total 100 ml 210 ml Balance 812 ml 472.814 ml 1151.815 ml medications Current Medications Medications Dose Ordered Sig/Sravan Route Start Time Stop Time Status Last Admin Dose Admin Acetaminophen/ Hydrocodone Bitart 1 tab Q4HP PRN PO 03/20/25 12:15 04/11/25 23:13 1 TAB Ondansetron HCl 4 mg Q4HP PRN IV 03/20/25 12:15 03/26/25 08:18 4 MG Docusate Sodium 100 mg BIDPRN PRN PO 03/20/25 12:15 Acetaminophen 650 mg Q6HP PRN PO 03/20/25 12:15 03/28/25 10:59 650 MG Nitroglycerin 0.4 mg Q5MINP PRN SL 03/20/25 12:15 03/25/25 09:26 0.4 MG Morphine Sulfate 2 mg Q30M PRN IV 03/20/25 12:15 03/25/25 09:43 2 MG Allopurinol 100 mg DAILY PO 03/21/25 10:00 04/12/25 12:25 100 MG Apixaban 2.5 mg BID PO 03/20/25 22:00 04/12/25 12:27 2.5 MG Cilostazol 100 mg BID PO 03/20/25 22:00 04/12/25 12:28 100 MG Patient Own Medication 1 tab DAILY PO 03/21/25 10:00 UNV Patient Own Medication 1 tab DAILY PO 03/21/25 10:00 UNV Gabapentin 300 mg DAILY PO 03/21/25 10:00 04/12/25 12:24 300 MG Diphenhydramine HCl 50 mg [id number] PRN PO 03/21/25 16:45 03/21/25 22:57 50 MG Patient Own Medication 1 tab BID PO 03/21/25 22:00 04/12/25 12:30 1 TAB Throat Lozenges 1 liv Q2HP PRN MT 03/23/25 04:00 03/23/25 14:52 1 LIV Pantoprazole Sodium 40 mg DAILY IV 03/26/25 10:00 04/12/25 12:27 40 MG Magnesium Oxide 400 mg DAILY PO 03/27/25 10:00 04/12/25 12:27 400 MG Ertapenem 0.5 gm DAILY IM 03/27/25 11:15 Cancel Diagnostic Test (Pha) 1 strip Q6HR 03/27/25 18:00 04/12/25 18:00 1 STRIP Insulin Human Regular FOLLOW SLIDING SCALE Q6HR SC 03/27/25 18:00 04/12/25 12:26 2 UNITS Dextrose 50 ml UD IV 03/27/25 12:30 Norepinephrine Bitartrate 250 ml @ 0.938 mls/ hr Q24H IV 03/28/25 09:15 04/11/25 20:12 0.938 MLS/HR Amiodarone HCl 200 mg Q12HR PO 03/29/25 10:00 04/12/25 12:28 200 MG Nystatin 1 applic DAILY TOP 04/01/25 10:00 04/12/25 10:00 1 APPLIC Multivit/Ca Carb/ B Cmplx/FA/Prenat 1 tab DAILY PO 04/03/25 10:00 04/12/25 12:27 1 TAB Ferrous Sulfate 325 mg BIDWM PO 04/03/25 18:00 04/12/25 18:35 325 MG Midodrine 10 mg TID@0600,1200,1800 PO 04/04/25 12:00 04/12/25 18:35 10 MG Albuterol 2.5 mg Q4HR NEB 04/06/25 14:00 04/12/25 18:23 2.5 MG Ipratropium [place] 0.5 mg Q4HR NEB 04/06/25 14:00 04/12/25 18:23 0.5 MG Ertapenem 1 gm/ Sodium Chloride 50 ml @ 100 mls/hr DAILY IV 04/08/25 14:00 04/12/25 15:27 100 MLS/HR Bumetanide 3 mg BIDD IV 04/08/25 18:00 04/12/25 18:34 3 MG Amino Acids 0 ml @ 0 mls/hr PER PHARMACY IV 04/09/25 09:00 Levothyroxine Sodium 50 mcg DAILY IV 04/09/25 10:00 04/12/25 12:28 50 MCG Fat Emulsion Intravenous 250 ml/Sodium Chloride 40 meq/ Potassium Chloride 40 meq/ Potassium Phosphate 22 meq/ Magnesium Sulfate 8 meq/ Multivitamins 10 ml/Amino Acids/ Dextrose/Purified Water 1,647 ml @ 68 mls/hr [id number] IV 04/11/25 22:00 04/12/25 21:59 04/11/25 21:47 68 MLS/HR Metronidazole 100 ml @ 100 mls/hr Q8HR IV 04/12/25 14:00 04/12/25 15:28 100 MLS/HR Fat Emulsion Intravenous 200 ml/Sodium Chloride 60 meq/ Potassium Chloride 40 meq/ Potassium Phosphate 20 meq/ Magnesium Sulfate 8 meq/ Multivitamins 10 ml/Chromium/ Copper/Manganese/ Zinc 1 ml/Amino Acids/Dextrose/ Purified Water 1,552.5455 ml @ 64 mls/hr [id number] IV 04/12/25 22:00 04/13/25 21:59 objective General examination- awake, alert HEENT- PEERLA, morbidly obese Cardiovascular- S1-S2 audible, rate and rhythm regular, no murmur Respiratory- CTAB, no wheeze or rhonchi Gastrointestinal-lower abdominal wall tenderness+, bowel sound+. Nondistended Musculoskeletal-no acute joint swelling or tenderness or redness Lower extremity- no leg edema Neurological- cranial nerves intact, no acute dysarthria or dysphagia laboratory and microbiology Laboratory Tests 04/12/25 04:29 Test 04/12/25 04:29 Range/Units Serum Glucose 119 H 74-106 mg/dL Problems(with codes): (1) Cardiac volume overload (2) Atrial fibrillation with RVR (3) COPD with acute exacerbation (4) Elevated troponin (5) Failure to thrive (6) Shortness of breath (7) Symptomatic anemia (8) E. coli UTI (urinary tract infection) (9) Sepsis (10) Generalized weakness (11) Pelvic abscess in female Prognosis PLAN Patient is undergoing hemodialysis on TTS schedule Patient is getting IV Bumex twice a day Patient awaiting LTAC placement and chair time Fluid restriction 1 L per day NPO, IV antibiotics, IV TPN Repeat imaging in 2-4 weeks Liver appeared normal on CT abdomen Meld score is 27 points predictive of 19.6% three-month mortality Dietary Evaluation Review Comments: Renal Specific 60g CCHO-60 Cardiac Diet d/t SCOT over CKD and low GFR Expected Outcomes/Goals: less uremic symptoms, better weight management Plan discussed with: Other (None) CC Plasma Assessment Blood Product Administration S: [id number] MAGALYS AQUINO MD Apr 12, 2025 20:32
[2025-04-12] MEDS: EPOETIN ALFA-EPBX 4,000 UNIT/ML VIAL SC ONE (21:42)
[2025-04-12] MEDS: TPN PER PHARMACY IV NR (21:45)
[2025-04-13] VITALS (109 sets, daily range): BP systolic 87–148; BP diastolic 36–71; PULSE 87–104; RESP 11–26; TEMP 97.7–98.5; O2SAT 88–100
[2025-04-13 05:42] LABS: Hematocrit 23.8 % (36.0-46.0); Hemoglobin 7.5 g/dL (12.2-16.2); Mean Corpuscular Hemoglobin 28.6 pg (28.0-32.0); Mean Corpuscular Volume 90.4 fL (80.0-100.0); Nucleated Red Blood Cells % 0.1 %
[2025-04-13 05:58] LABS: Alkaline Phosphatase 108 U/L (46-116); Anion Gap 8 (5-15); BUN/Creatinine Ratio 16.0 (10.0-20.0); Calcium 8.7 mg/dL (8.7-10.4); Carbon Dioxide 30 mmol/L (20-31); Chloride 99 mmol/L (98-107); Magnesium 2.0 mg/dL (1.6-2.6); Potassium 3.7 mmol/L (3.5-5.1); Sodium 137 mmol/L (136-145); Total Protein 6.1 g/dL (5.7-8.2)
[2025-04-13 05:59] LABS: Alanine Aminotransferase < 9 U/L (7-40); Albumin 3.2 g/dL (3.2-4.8); Bilirubin, Total 0.9 mg/dL (0.2-1.0); Blood Urea Nitrogen 29 mg/dL (9-23); Glucose 119 mg/dL (74-106)
--- NOTE | 2025-04-13 06:46 | DVHPN2 ---
Progress Note - Dictate Date Seen: Apr 13, 2025 Has the PT tested + for MRSA If YES, has PT been informed?: No Medical Necessity Reason Pt with a Central, PICC or Fol: Yes The following are medically ne: Tijerina Catheter Reason for tijerina catheter: Strict I&O Subjective no new symptoms vital signs Vital Sign Date Time Temp Pulse Resp B/P (MAP) Pulse Ox O2 Delivery O2 Flow Rate FiO2 04/13/25 06:42 96/44 04/13/25 06:00 19 96 Nasal Cannula* 3 32 04/13/25 06:00 96 04/13/25 04:00 98.5 98.5 Total Intake and Output 04/12/25 04/12/25 04/13/25 15:00 23:00 07:00 Intake Total 573.063 ml 1034.502 ml 474.25 ml Output Total 350 ml 400 ml Balance 573.063 ml 684.502 ml 74.25 ml medications Current Medications Medications Dose Ordered Sig/Sravan Route Start Time Stop Time Status Last Admin Dose Admin Acetaminophen/ Hydrocodone Bitart 1 tab Q4HP PRN PO 03/20/25 12:15 04/11/25 23:13 1 TAB Ondansetron HCl 4 mg Q4HP PRN IV 03/20/25 12:15 03/26/25 08:18 4 MG Docusate Sodium 100 mg BIDPRN PRN PO 03/20/25 12:15 Acetaminophen 650 mg Q6HP PRN PO 03/20/25 12:15 03/28/25 10:59 650 MG Nitroglycerin 0.4 mg Q5MINP PRN SL 03/20/25 12:15 03/25/25 09:26 0.4 MG Morphine Sulfate 2 mg Q30M PRN IV 03/20/25 12:15 03/25/25 09:43 2 MG Allopurinol 100 mg DAILY PO 03/21/25 10:00 04/12/25 12:25 100 MG Apixaban 2.5 mg BID PO 03/20/25 22:00 04/12/25 21:46 2.5 MG Cilostazol 100 mg BID PO 03/20/25 22:00 04/12/25 21:47 100 MG Patient Own Medication 1 tab DAILY PO 03/21/25 10:00 UNV Patient Own Medication 1 tab DAILY PO 03/21/25 10:00 UNV Gabapentin 300 mg DAILY PO 03/21/25 10:00 04/12/25 12:24 300 MG Diphenhydramine HCl 50 mg [id number] PRN PO 03/21/25 16:45 03/21/25 22:57 50 MG Patient Own Medication 1 tab BID PO 03/21/25 22:00 04/12/25 21:47 1 TAB Throat Lozenges 1 liv Q2HP PRN MT 03/23/25 04:00 03/23/25 14:52 1 LIV Pantoprazole Sodium 40 mg DAILY IV 03/26/25 10:00 04/12/25 12:27 40 MG Magnesium Oxide 400 mg DAILY PO 03/27/25 10:00 04/12/25 12:27 400 MG Ertapenem 0.5 gm DAILY IM 03/27/25 11:15 Cancel Diagnostic Test (Pha) 1 strip Q6HR 03/27/25 18:00 04/13/25 06:42 1 STRIP Insulin Human Regular FOLLOW SLIDING SCALE Q6HR SC 03/27/25 18:00 04/12/25 12:26 2 UNITS Dextrose 50 ml UD IV 03/27/25 12:30 Norepinephrine Bitartrate 250 ml @ 0.938 mls/ hr Q24H IV 03/28/25 09:15 04/11/25 20:12 0.938 MLS/HR Amiodarone HCl 200 mg Q12HR PO 03/29/25 10:00 04/12/25 21:46 200 MG Nystatin 1 applic DAILY TOP 04/01/25 10:00 04/12/25 10:00 1 APPLIC Multivit/Ca Carb/ B Cmplx/FA/Prenat 1 tab DAILY PO 04/03/25 10:00 04/12/25 12:27 1 TAB Ferrous Sulfate 325 mg BIDWM PO 04/03/25 18:00 04/12/25 18:35 325 MG Midodrine 10 mg TID@0600,1200,1800 PO 04/04/25 12:00 04/13/25 06:42 10 MG Albuterol 2.5 mg Q4HR NEB 04/06/25 14:00 04/12/25 22:44 2.5 MG Ipratropium [place] 0.5 mg Q4HR NEB 04/06/25 14:00 04/12/25 22:44 0.5 MG Ertapenem 1 gm/ Sodium Chloride 50 ml @ 100 mls/hr DAILY IV 04/08/25 14:00 04/12/25 15:27 100 MLS/HR Bumetanide 3 mg BIDD IV 04/08/25 18:00 04/13/25 06:42 3 MG Amino Acids 0 ml @ 0 mls/hr PER PHARMACY IV 04/09/25 09:00 Levothyroxine Sodium 50 mcg DAILY IV 04/09/25 10:00 04/12/25 12:28 50 MCG Metronidazole 100 ml @ 100 mls/hr Q8HR IV 04/12/25 14:00 04/13/25 06:42 100 MLS/HR Fat Emulsion Intravenous 200 ml/Sodium Chloride 60 meq/ Potassium Chloride 40 meq/ Potassium Phosphate 20 meq/ Magnesium Sulfate 8 meq/ Multivitamins 10 ml/Chromium/ Copper/Manganese/ Zinc 1 ml/Amino Acids/Dextrose/ Purified Water 1,552.5455 ml @ 64 mls/hr [id number] IV 04/12/25 22:00 04/13/25 21:59 04/12/25 21:45 64 MLS/HR objective HEENT: No evidence of JVD, no oral ulcers. Pulmonary: Crackles on auscultation bilaterally Cardiovascular S1-S2, no S3 or S4 Abdomen: Bowel sounds positive, soft no rebound tenderness Skin: No rash Neurological: Alert, oriented, no focal weakness Extremities: 2+ lower extremity edema pitting Right upper chest CVC in place. laboratory and microbiology Laboratory Tests 04/13/25 04:31 Test 04/13/25 04:31 Range/Units Serum Glucose 119 H 74-106 mg/dL Assessment/Plan Assessment: Acute kidney injury superimposed on CKD 4 on intermittent HD Sepsis, urine culture: E coli and Klebsiella both of which are ESBL . Wound culture with E coli ESBL Pelvic abscess Status post drainage of left pelvic abscess Left hydronephrosis which has a resolved Acute on chronic diastolic heart failure Anemia status post transfusion of PRBC Pulmonary hypertension Atrial fibrillation Bed-bound patient Chronic alcoholism in remission, last alcoholic beverage three months ago. Hypokalemia Recommendation/plan s/p HD Next HD on Wednesday Hemodialysis to continue on TTS schedule Continue Bumex b.i.d. urine output ~ 750 cc in last 24 hours sleep manager to arrange chair time, we will monitor for renal recovery within the next 90 days Fluid restriction less than 1 L per day, renal diet Midodrine 3 times a day and during dialysis Overall long-term prognosis is guarded Dietary Evaluation Review Comments: Renal Specific 60g CCHO-60 Cardiac Diet d/t SCOT over CKD and low GFR Expected Outcomes/Goals: less uremic symptoms, better weight management Plan discussed with: Patient, Other CC Plasma Assessment Blood Product Administration S: [id number] AVELINO DUNLAP MD Apr 13, 2025 06:46
--- NOTE | 2025-04-13 06:49 | DVHPN2 ---
Progress Note - Dictate Date Seen: Apr 13, 2025 Has the PT tested + for MRSA If YES, has PT been informed?: No Medical Necessity Reason Pt with a Central, PICC or Fol: Yes The following are medically ne: Tijerina Catheter Reason for tijerina catheter: Strict I&O vital signs Vital Sign Date Time Temp Pulse Resp B/P (MAP) Pulse Ox O2 Delivery O2 Flow Rate FiO2 04/13/25 06:42 96/44 04/13/25 06:00 19 96 Nasal Cannula* 3 32 04/13/25 06:00 96 04/13/25 04:00 98.5 98.5 Total Intake and Output 04/12/25 04/12/25 04/13/25 15:00 23:00 07:00 Intake Total 573.063 ml 1034.502 ml 474.25 ml Output Total 350 ml 400 ml Balance 573.063 ml 684.502 ml 74.25 ml medications Current Medications Medications Dose Ordered Sig/Sravan Route Start Time Stop Time Status Last Admin Dose Admin Acetaminophen/ Hydrocodone Bitart 1 tab Q4HP PRN PO 03/20/25 12:15 04/11/25 23:13 1 TAB Ondansetron HCl 4 mg Q4HP PRN IV 03/20/25 12:15 03/26/25 08:18 4 MG Docusate Sodium 100 mg BIDPRN PRN PO 03/20/25 12:15 Acetaminophen 650 mg Q6HP PRN PO 03/20/25 12:15 03/28/25 10:59 650 MG Nitroglycerin 0.4 mg Q5MINP PRN SL 03/20/25 12:15 03/25/25 09:26 0.4 MG Morphine Sulfate 2 mg Q30M PRN IV 03/20/25 12:15 03/25/25 09:43 2 MG Allopurinol 100 mg DAILY PO 03/21/25 10:00 04/12/25 12:25 100 MG Apixaban 2.5 mg BID PO 03/20/25 22:00 04/12/25 21:46 2.5 MG Cilostazol 100 mg BID PO 03/20/25 22:00 04/12/25 21:47 100 MG Patient Own Medication 1 tab DAILY PO 03/21/25 10:00 UNV Patient Own Medication 1 tab DAILY PO 03/21/25 10:00 UNV Gabapentin 300 mg DAILY PO 03/21/25 10:00 04/12/25 12:24 300 MG Diphenhydramine HCl 50 mg [id number] PRN PO 03/21/25 16:45 03/21/25 22:57 50 MG Patient Own Medication 1 tab BID PO 03/21/25 22:00 04/12/25 21:47 1 TAB Throat Lozenges 1 liv Q2HP PRN MT 03/23/25 04:00 03/23/25 14:52 1 LIV Pantoprazole Sodium 40 mg DAILY IV 03/26/25 10:00 04/12/25 12:27 40 MG Magnesium Oxide 400 mg DAILY PO 03/27/25 10:00 04/12/25 12:27 400 MG Ertapenem 0.5 gm DAILY IM 03/27/25 11:15 Cancel Diagnostic Test (Pha) 1 strip Q6HR 03/27/25 18:00 04/13/25 06:42 1 STRIP Insulin Human Regular FOLLOW SLIDING SCALE Q6HR SC 03/27/25 18:00 04/12/25 12:26 2 UNITS Dextrose 50 ml UD IV 03/27/25 12:30 Norepinephrine Bitartrate 250 ml @ 0.938 mls/ hr Q24H IV 03/28/25 09:15 04/11/25 20:12 0.938 MLS/HR Amiodarone HCl 200 mg Q12HR PO 03/29/25 10:00 04/12/25 21:46 200 MG Nystatin 1 applic DAILY TOP 04/01/25 10:00 04/12/25 10:00 1 APPLIC Multivit/Ca Carb/ B Cmplx/FA/Prenat 1 tab DAILY PO 04/03/25 10:00 04/12/25 12:27 1 TAB Ferrous Sulfate 325 mg BIDWM PO 04/03/25 18:00 04/12/25 18:35 325 MG Midodrine 10 mg TID@0600,1200,1800 PO 04/04/25 12:00 04/13/25 06:42 10 MG Albuterol 2.5 mg Q4HR NEB 04/06/25 14:00 04/12/25 22:44 2.5 MG Ipratropium [place] 0.5 mg Q4HR NEB 04/06/25 14:00 04/12/25 22:44 0.5 MG Ertapenem 1 gm/ Sodium Chloride 50 ml @ 100 mls/hr DAILY IV 04/08/25 14:00 04/12/25 15:27 100 MLS/HR Bumetanide 3 mg BIDD IV 04/08/25 18:00 04/13/25 06:42 3 MG Amino Acids 0 ml @ 0 mls/hr PER PHARMACY IV 04/09/25 09:00 Levothyroxine Sodium 50 mcg DAILY IV 04/09/25 10:00 04/12/25 12:28 50 MCG Metronidazole 100 ml @ 100 mls/hr Q8HR IV 04/12/25 14:00 04/13/25 06:42 100 MLS/HR Fat Emulsion Intravenous 200 ml/Sodium Chloride 60 meq/ Potassium Chloride 40 meq/ Potassium Phosphate 20 meq/ Magnesium Sulfate 8 meq/ Multivitamins 10 ml/Chromium/ Copper/Manganese/ Zinc 1 ml/Amino Acids/Dextrose/ Purified Water 1,552.5455 ml @ 64 mls/hr [id number] IV 04/12/25 22:00 04/13/25 21:59 04/12/25 21:45 64 MLS/HR laboratory and microbiology Laboratory Tests 04/13/25 04:31 Test 04/13/25 04:31 Range/Units Serum Glucose 119 H 74-106 mg/dL Assessment/Plan Being managed in [facility]. NPO (concern for Diverticulitis) On Levophed Patient is a 74-year-old female who was admitted on March 20, 2025 for abdominal pain/nausea/vomiting. She is admitted to ICU for septic shock. On March 24, 2025, cardiology was involved for cardiac aspects of care. Patient is known to our practice from before and previous admissions. She is known to have significant alcohol abuse (drinks whiskey every day) and also history of pulmonary hypertension/type 2 pulmonary hypertension, diastolic heart failure. Does have poor functional capacity and is bed-bound. Is significantly morbidly obese. Does have baseline history of atrial fibrillation and is on Eliquis as outpatient. Is found to have septic shock and possible pelvic abscess. Is seen by surgery/Urology/pulmonary/GI. Denies chest pains. Denies palpitations. Is noncompliant with medication and followups. While being managed in ICU was found to have atrial fibrillation with RVR. She mentions that she does go to [facility] regularly. She has had multiple surgeries in the bilateral feet. She also has history of COPD/asthma with chronic respiratory failure (on home oxygen). Morbidly obese. Not in acute distress. No JVD. Mucosa is dry. Mucosa is pink. No JVD. No carotid bruit. Not using accessory muscles of breathing. Scattered rhonchi in the lungs is heard. Cardiac: Irregular, no thrill. Abdomen is obese and soft. There is no gross hepatomegaly, but it is presence can not be ruled out (body habitus, morbidly obese). There is 3+ edema in bilateral lower extremities which extends to abdominal wall. Past medical history includes morbid obesity, atrial fibrillation (on Eliquis as outpatient), COPD/asthma with chronic respiratory failure on home oxygen, morbid obesity, hypertension, hyperlipidemia, chronic lymphedema, Diastolic heart failure with type 2 pulmonary hypertension, rheumatoid arthritis, osteoarthritis, peripheral vascular disease, CKD (stage IV), anemia, alcohol abuse, neuropathy, gout, old history of right and left foot fracture and their management, status post right knee replacement, status post , bed-bound at baseline and functional quadriplegia. Patient drinks whiskey daily. Goes to Nephrology regularly. Reportedly, there has been some concern about going to have fistula creation on preparation for dialysis? Echocardiogram of January 03 2024 (performed in [facility]) revealed ejection fraction of 60%, mild biatrial enlargement, mild MR/TR and right ventricular systolic pressure of 31 mm Hg. Echocardiogram of (performed in [facility]) revealed: EF of 50 to 55%, Dilated right ventricle with normal systolic function. Severe biatrial enlargement. Mild AI, mild to moderate MR, moderate TR and RVSP of 51 mmHg. Ascending Aorta was 3.7 cm. Echocardiogram of November 09, 2024 revealed ejection fraction of 72%, mild right ventricular enlargement, moderate biatrial enlargement, mild to moderate tricuspid regurgitation, mild mitral regurgitation, right ventricular systolic pressure 54 mm Hg Echocardiogram of February 23, 2025 revealed ejection fraction of around 50%, mild concentric left ventricular hypertrophy, right ventricular enlargement with preserved systolic function. Biatrial enlargement, mild aortic insufficiency, [id number] mitral regurgitation and tricuspid regurgitation. IVC was significantly dilated. Right ventricular systolic pressure of of 55 mm Hg Hemoglobin: 6.7 - 8.6 - 8.1 - 7.6 - 7.9 - 7.7 - 7.8 - 7.8 - 7.6 - 7.5 - 7.1 - 7.0 - 8.5 - 8.2 - 7.6 - 7.7 - 7.5 - 7.1 - 7.0 - 6.8 - 7.9 - 7.6 - 7.8 - 7.6 - 7.5 - 7.4 - 7.5 Creatinine: 3.29 - 2.63 - 2.77 - 2.59 - 2.13 - 1.98 - 1.98 - 2.47- 2.98 - 3.36 - 3.56 - 3.83 - 4.12 - 4.27 - 4.67 - 4.54 - 2.92 - 2.91 - 2.98 - 2.06 - 2.36 - 2.49 - 1.96 - 2.34 - 1.92 - 2.25 - 1.81 Potassium: 3.9 - 3.4 - 3.8 - 3.3 - 3.4 - 3.9 - 3.5 - 3.5 - 3.3 - 3.4 - 3.7 - 3.8 - 4.0 - 4.3 - 4.0 - 3.6 - 3.3 - 3.5 - 3.9 - 3.9 - 4.0 - 3.9 - 3.7 - 3.3 - 2.7 - 3.8 - 3.8 - 3.7 Troponin (high sensitive): 32 - 31 - 34 TSH: 0.17 - 0.15 T3: 0.40 (low) T4: 5.7 Free T4: 1.27 Free T3: 1.55 (low) Urine and Aspirate culture: ESBL E-coli Chest x-ray revealed: IMPRESSION: Cardiomegaly. Repeat chest x-ray revealed: IMPRESSION: 1. Cardiomegaly with increased interstitial prominence suggestive of CHF exacerbation. 2. Pulmonary arterial hypertension. Repeat chest x-ray revealed: IMPRESSION: Cardiomegaly with mild pulmonary congestion. . Repeat chest x-ray revealed: IMPRESSION: Cardiomegaly with pulmonary congestion and edema. Superimposed pneumonia cannot be excluded. Repeat chest x-ray revealed: IMPRESSION: Worsening right lower lung airspace disease. Suggestion of small bilateral pleural effusions. Repeat chest xray revealed: IMPRESSION: No significant interval change Repeat chest xry revealed: IMPRESSION: 1. Right internal jugular hemodialysis catheter in place with tip at the cavoatrial junction. 2. Right internal jugular catheter in place unchanged 3. Findings suggest worsening airspace disease in probable congestive failure or volume overload. Repeat chest xry revealed: IMPRESSION: Similar lung aeration. Small bilateral pleural effusion. Cardiomegaly. Repeat chest xry revealed: IMPRESSION: Interval placement of left PICC with tip projecting over the superior vena cava. Otherwise no significant change compared to prior exam. Abdominal ultrasound revealed: IMPRESSION: Small left hydronephrosis Renal scan revealed: IMPRESSION: Bilateral renal obstruction is present which is not response to Lasix administration suggesting that the kidney may be minimally functional. Abdomen and pelvic CT scan revealed: IMPRESSION: Moderate left hydroureteronephrosis. Suggestion of possible small abscess formation in the left hemipelvis associated with the sigmoid colon measuring 5.7 cm. This may represent site of ureteral obstruction. Clinical correlation advised. Examination is limited secondary to lack of intravenous and oral contrast administration. Abdomen and pelvis CT revealed: IMPRESSION: Sigmoid colonic diverticulitis with an adjacent 6 cm fluid collection with gas, could be an abscess. Probable fistula of the sigmoid to the fluid collection, and possibly with the urinary bladder, which is decompressed with a Tijerina. Possible trace left hydronephrosis with perinephric fat stranding. Repeat CT of abdomen and pelvis revealed: IMPRESSION: Small to moderate bilateral pleural effusions and associated compressive atelectasis / consolidation. Left lower quadrant pelvic drain in satisfactory position with significant interval decrease in size of abscess currently measuring 2.2 cm, previously 5.[address] guided abscess drainage: IMPRESSION: CT guided placement of 8 [place] pigtail drain into a left hemipelvic abscess with 30 mL purulent fluid aspirated. PLAN: Routine tube care. Renal ultrasound revealed: IMPRESSION: Unremarkable renal ultrasound without hydronephrosis seen. EKG revealed atrial fibrillation with RVR Tele reveals atrial fibrillation with RVR Echocardiogram revealed: Left ventricle: Mild concentric left ventricular hypertrophy was seen. LVEF was around 50%. Right ventricle was mildly dilated with reduced systolic function. Both atria were dilated. Aortic valve was not well visualized. There was no aortic insufficiency/stenosis. There was mild mitral regurgitation. There was [id number] tricuspid regurgitation. Pulmonary valve was not well visualized. Right ventricular systolic pressure was assessed at 50 mm Hg. IVC was dilated. There was no pericardial effusion. Patient is a 74-year-old female with known history of diastolic heart failure with type 2 pulmonary hypertension who presented with abdominal pain. He is admitted to ICU with septic shock. Did have thrombocytopenia which slowly improved. Was significantly anemic and was transfused PRBC. There has been question about pelvic abscess and the patient is on antibiotics. Patient is being followed by surgery/Urology/pulmonary/GI. It is of note that the patient does have history of significant alcohol abuse (drinks good amount of whiskey daily) which could contribute to to some component of the clinical picture. Does have baseline history of pulmonary hypertension. Usually is on some amount of diuretic (Bumex) as outpatient. Clinically, the patient does have dry mucosa and maybe behind fluids at the time of evaluation. Does have baseline poor functional capacity. Does have history of recent sepsis. s/p CT guided abscess drainage. Seen by Nephrology. Diuretics are on hold. TFT are in favor of subclinical thyroid problem. Still with poor kidney function. Nephrology suggested hemodialysis, patient is hesitant. Significant anemia, status post PRBC transfusion Thrombocytopenia, resolved Septic shock SCOT on CKD Hydronephrosis Pelvic abscess Transaminitis Acute on chronic diastolic heart failure Pulmonary Hypertension, type 2 Alcohol abuse Morbid obesity Poor functional capacity Bed-bound at baseline Atrial fibrillation with RVR Hyperlipidemia Osteoarthritis Rheumatoid arthritis Peripheral vascular disease Abdominal abscess? s/p CT guided abscess drainage s/p PRBC transfusion Cardiac suggestion for management: Manage in [facility] Follow-up electrolytes and kidney function tests and correct abnormalities Full anticoagulation (on Eliquis presently), long-term On Midodrine Started on HD On oral amiodarone Evaluation and management of sepsis/infection as per primary team Evaluation and management of alcohol abuse/prevention of withdrawal as per primary team Evaluation and management of pelvic abscess/hydronephrosis as per primary team/surgery/Urology Further evaluation and management depends on the above and clinical course A total of 75 minutes was spent reviewing the patient record, examining the patient, making a diagnostic and therapeutic plan, discussing this plan with medical personnel, following up on diagnostic studies and following the patient for clinical stability excluding any and all procedures. At least 50% of this time was spent in direct, [id number] contact. Thank you for allowing me to participate in this patient's care. Further recommendations will depend on patient's clinical course. Please do not hesitate to contact me if you have any questions or concerns. This medical document was created using electronic medical record system with [employer] computerized dictation system. Although this document has been carefully reviewed, there may still be some phonetic and typographical errors. These areas are purely typographical due to the imperfection of the software programs, and do not reflect any compromise in the patient's medical care. Dietary Evaluation Review Comments: Renal Specific 60g CCHO-60 Cardiac Diet d/t SCOT over CKD and low GFR Expected Outcomes/Goals: less uremic symptoms, better weight management Plan discussed with: Other (nurse) CC Plasma Assessment Blood Product Administration S: [id number] AUSTIN ROMERO MD Apr 13, 2025 06:48
--- NOTE | 2025-04-13 08:46 | DVHPN2 ---
Subjective Denies any symptoms at this time Reviewed: Care Plan, H&P, Labs, Medications, Previous Orders, Radiology Changes from previous H/P or p: No Changes General: Per HPI Eyes: No Pain, No Vision change, No Conjunctivae inflammation, No Eyelid inflammation, No Other, No Redness ENT: No Ear pain, No Ear discharge, No Nose pain, No Nose discharge, No Nose congestion, No Mouth pain, No Mouth swelling, No Throat pain, No Throat swelling, No Other Cardiovascular: No Chest Pain, No Palpitations, No Orthopnea, No Paroxysmal Noc. Dyspnea, No Edema, No Lt Headedness, No Other Respiratory: No Cough, No Dry, No Shortness of breath, No SOB with excertion, No Wheezing, No Hemoptysis, No Pleuritic Pain, No Sputum, No Other Gastrointestinal: Nausea, Vomiting, Abdominal Pain Genitourinary: No Dysuria, No Frequency, No Incontinence, No Hematuria, No Retention, No Other Musculoskeletal: No other, No neck pain, No shoulder pain, No arm pain, No back pain, No hand pain, No leg pain, No foot pain Skin: No Rash, No Lesions, No Jaundice, No Bruising, No Other Objective Vitals Vital Signs Date Time Temp Pulse Resp B/P (MAP) Pulse Ox O2 Delivery O2 Flow Rate FiO2 04/13/25 08:15 97 15 124/60 (81) 95 04/13/25 08:00 Nasal Cannula* 3 32 04/13/25 04:00 98.5 98.5 Intake/Output Intake and Output 04/13/25 07:00 Intake Total 2081.815 ml Output Total 750 ml Balance 1331.815 ml Intake Oral 120 ml IV Total 1961.815 ml Output Urine Total 750 ml General Appearance: Alert, Oriented X3, Cooperative, Other HEENT: Atraumatic, PERRLA Cardiovascular: Normal S1, Normal S2, Other Abdomen: Normal bowel sounds, Other Extremities: No edema, Normal pulses Neuro: Sensation intact, Cranial nerves 3-12 NL Skin: Dry, Intact Psych/Mental Status: Mental status NL, Mood NL Medications Current Medications Medications Dose Ordered Sig/Sravan Route Start Time Stop Time Status Last Admin Dose Admin Acetaminophen/ Hydrocodone Bitart 1 tab Q4HP PRN PO 03/20/25 12:15 04/11/25 23:13 1 TAB Ondansetron HCl 4 mg Q4HP PRN IV 03/20/25 12:15 03/26/25 08:18 4 MG Docusate Sodium 100 mg BIDPRN PRN PO 03/20/25 12:15 Acetaminophen 650 mg Q6HP PRN PO 03/20/25 12:15 03/28/25 10:59 650 MG Nitroglycerin 0.4 mg Q5MINP PRN SL 03/20/25 12:15 03/25/25 09:26 0.4 MG Morphine Sulfate 2 mg Q30M PRN IV 03/20/25 12:15 03/25/25 09:43 2 MG Allopurinol 100 mg DAILY PO 03/21/25 10:00 04/12/25 12:25 100 MG Apixaban 2.5 mg BID PO 03/20/25 22:00 04/12/25 21:46 2.5 MG Cilostazol 100 mg BID PO 03/20/25 22:00 04/12/25 21:47 100 MG Patient Own Medication 1 tab DAILY PO 03/21/25 10:00 UNV Patient Own Medication 1 tab DAILY PO 03/21/25 10:00 UNV Gabapentin 300 mg DAILY PO 03/21/25 10:00 04/12/25 12:24 300 MG Diphenhydramine HCl 50 mg [id number] PRN PO 03/21/25 16:45 03/21/25 22:57 50 MG Patient Own Medication 1 tab BID PO 03/21/25 22:00 04/12/25 21:47 1 TAB Throat Lozenges 1 liv Q2HP PRN MT 03/23/25 04:00 03/23/25 14:52 1 LIV Pantoprazole Sodium 40 mg DAILY IV 03/26/25 10:00 04/12/25 12:27 40 MG Magnesium Oxide 400 mg DAILY PO 03/27/25 10:00 04/12/25 12:27 400 MG Ertapenem 0.5 gm DAILY IM 03/27/25 11:15 Cancel Diagnostic Test (Pha) 1 strip Q6HR 03/27/25 18:00 04/13/25 06:42 1 STRIP Insulin Human Regular FOLLOW SLIDING SCALE Q6HR SC 03/27/25 18:00 04/13/25 06:00 2 UNITS Dextrose 50 ml UD IV 03/27/25 12:30 Norepinephrine Bitartrate 250 ml @ 0.938 mls/ hr Q24H IV 03/28/25 09:15 04/11/25 20:12 0.938 MLS/HR Amiodarone HCl 200 mg Q12HR PO 03/29/25 10:00 04/12/25 21:46 200 MG Nystatin 1 applic DAILY TOP 04/01/25 10:00 04/12/25 10:00 1 APPLIC Multivit/Ca Carb/ B Cmplx/FA/Prenat 1 tab DAILY PO 04/03/25 10:00 04/12/25 12:27 1 TAB Ferrous Sulfate 325 mg BIDWM PO 04/03/25 18:00 04/13/25 08:32 325 MG Midodrine 10 mg TID@0600,1200,1800 PO 04/04/25 12:00 04/13/25 06:42 10 MG Albuterol 2.5 mg Q4HR NEB 04/06/25 14:00 04/13/25 07:08 2.5 MG Ipratropium [place] 0.5 mg Q4HR NEB 04/06/25 14:00 04/13/25 07:08 0.5 MG Ertapenem 1 gm/ Sodium Chloride 50 ml @ 100 mls/hr DAILY IV 04/08/25 14:00 04/12/25 15:27 100 MLS/HR Bumetanide 3 mg BIDD IV 04/08/25 18:00 04/13/25 06:42 3 MG Amino Acids 0 ml @ 0 mls/hr PER PHARMACY IV 04/09/25 09:00 Levothyroxine Sodium 50 mcg DAILY IV 04/09/25 10:00 04/12/25 12:28 50 MCG Metronidazole 100 ml @ 100 mls/hr Q8HR IV 04/12/25 14:00 04/13/25 06:42 100 MLS/HR Fat Emulsion Intravenous 200 ml/Sodium Chloride 60 meq/ Potassium Chloride 40 meq/ Potassium Phosphate 20 meq/ Magnesium Sulfate 8 meq/ Multivitamins 10 ml/Chromium/ Copper/Manganese/ Zinc 1 ml/Amino Acids/Dextrose/ Purified Water 1,552.5455 ml @ 64 mls/hr [id number] IV 04/12/25 22:00 04/13/25 21:59 04/12/25 21:45 64 MLS/HR Laboratory Results Laboratory Tests 04/13/25 04:31 Chemistry Test 04/13/25 04:31 Albumin 3.2 g/dL (3.2-4.8) Calcium Level 8.7 mg/dL (8.7-10.4) Magnesium Level 2.0 mg/dL (1.6-2.6) Phosphorus Level 2.6 mg/dL (2.4-5.1) Total Protein 6.1 g/dL (5.7-8.2) LFT Test 04/13/25 04:31 Alanine Aminotransferase (ALT) < 9 U/L (7-40) Alkaline Phosphatase 108 U/L (46-116) Aspartate Amino Transferase (AST) 11 U/L (13-40) L Total Bilirubin 0.9 mg/dL (0.2-1.0) Urinalysis Test 03/20/25 09:34 Urine Color Colorless (Yellow) Urine Clarity Turbid (Clear) H Urine pH 5.0 (5.0-9.0) Urine Specific [place] 1.015 (1.001-1.035) Urine Protein Negative (Negative) Urine Ketones Negative (Negative) Urine Blood Negative /uL (Negative) Urine Nitrite Negative (Negative) Urine Bilirubin Negative (Negative) Urine Urobilinogen Normal mg/dL (Negative) Urine Leukocyte Esterase 3+ /uL (Negative) Urine RBC 1 /hpf (0 - 4) Urine Microscopic WBC 255 /HPF (0-5) H Urine Squamous Epithelial Cells Few /hpf (<5) Urine Bacteria Few /hpf (None Seen) H Urine Glucose Normal mg/dL (Normal) Microbiology Microbiology Date/Time Source Procedure Growth Status 03/26/25 15:00 Aspirate Gram Stain - Final Complete 03/26/25 15:00 Body Fluid Culture - Final Escherichia coli - ESBL Enterobacter cloacae Proteus mirabilis Complete 03/23/25 04:30 Throat Nose/Throat Culture - Final Complete 03/21/25 18:00 Urine - Catheterized Urine Culture - Final Escherichia coli - ESBL Klebsiella pneumoniae - ESBL Complete 03/20/25 21:52 Nose MRSA Screen - Final Complete Labs and/or images reviewed: Labs reviewed by me, Image(s) reviewed by me Assessment/Plan Assessment/Plan Impression: -septic shock -diverticular abscess -AFib with RVR -morbid obesity -obstructive uropathy -CKD stage 4 -acute kidney injury, vasomotor nephropathy -acute on chronic systolic and diastolic heart failure -bed-bound status -complicated cystitis with ESBL in the urine. Plan: Events: Continues to be on Levophed drip at 2 micrograms/minute. Patient denies any other symptoms. Currently awaiting for transfer to [facility] -social service consultation to transfer to [facility] Facility -norepinephrine p.r.n. -continue midodrine -continue Invanz and Flagyl. ID consultation pending -NPO except meds and TPN -continue anticoagulation with Eliquis -repeat labs in a.m. Critical care time spent with patient discussing and formulating plan of care: 40 minutes. This does not include time spent performing procedures. This medical document was created using an electronic medical record system with [employer] dictation system. Although this document has been carefully reviewed, there may still be some phonetic and typographical errors. These areas are purely typographical due to imperfections of the software programs, and do not reflect any compromise in the patient's medical care. Plan discussed with: Patient, Other (RN) My Orders Orders - GONZALO ASKEW NP Procedure Category Date Status Time Metronidazole PHA 04/12/25 In Process 500mg/100ml (Flagyl 14:00 Amino Acid PHA 04/12/25 In Process Infusion... W/Fat 22:00 Tpn Per Pharmacy EBONY 04/12/25 In Process 22:00 Basic Metabolic Panel LAB 04/14/25 Verified 04:00 Complete Blood Count LAB 04/14/25 Verified 04:00 Date of Service: Apr 13, 2025 Billing Provider: GONZALO ASKEW NP Common Visit Codes: [id number] CARE 30-74 MIN GONZALO ASKEW NP Apr 13, 2025 08:46
--- NOTE | 2025-04-13 10:24 | DVHPN2 ---
Progress Note - Dictate Date Seen: Apr 13, 2025 Has the PT tested + for MRSA If YES, has PT been informed?: No Medical Necessity Reason Pt with a Central, PICC or Fol: Yes The following are medically ne: Tijerina Catheter Reason for tijerina catheter: Strict I&O vital signs Vital Sign Date Time Temp Pulse Resp B/P (MAP) Pulse Ox O2 Delivery O2 Flow Rate FiO2 04/13/25 10:00 96/54 04/13/25 09:15 97 17 97 04/13/25 08:00 Nasal Cannula* 3 32 04/13/25 04:00 98.5 98.5 Total Intake and Output 04/12/25 04/12/25 04/13/25 15:00 23:00 07:00 Intake Total 573.063 ml 1034.502 ml 474.25 ml Output Total 350 ml 400 ml Balance 573.063 ml 684.502 ml 74.25 ml medications Current Medications Medications Dose Ordered Sig/Sravan Route Start Time Stop Time Status Last Admin Dose Admin Acetaminophen/ Hydrocodone Bitart 1 tab Q4HP PRN PO 03/20/25 12:15 04/11/25 23:13 1 TAB Ondansetron HCl 4 mg Q4HP PRN IV 03/20/25 12:15 03/26/25 08:18 4 MG Docusate Sodium 100 mg BIDPRN PRN PO 03/20/25 12:15 Acetaminophen 650 mg Q6HP PRN PO 03/20/25 12:15 03/28/25 10:59 650 MG Nitroglycerin 0.4 mg Q5MINP PRN SL 03/20/25 12:15 03/25/25 09:26 0.4 MG Morphine Sulfate 2 mg Q30M PRN IV 03/20/25 12:15 03/25/25 09:43 2 MG Allopurinol 100 mg DAILY PO 03/21/25 10:00 04/13/25 09:48 100 MG Apixaban 2.5 mg BID PO 03/20/25 22:00 04/13/25 09:48 2.5 MG Cilostazol 100 mg BID PO 03/20/25 22:00 04/13/25 09:57 100 MG Patient Own Medication 1 tab DAILY PO 03/21/25 10:00 UNV Patient Own Medication 1 tab DAILY PO 03/21/25 10:00 UNV Gabapentin 300 mg DAILY PO 03/21/25 10:00 04/13/25 09:47 300 MG Diphenhydramine HCl 50 mg [id number] PRN PO 03/21/25 16:45 04/13/25 09:51 50 MG Patient Own Medication 1 tab BID PO 03/21/25 22:00 04/13/25 09:56 1 TAB Throat Lozenges 1 liv Q2HP PRN MT 03/23/25 04:00 03/23/25 14:52 1 LIV Pantoprazole Sodium 40 mg DAILY IV 03/26/25 10:00 04/13/25 09:49 40 MG Magnesium Oxide 400 mg DAILY PO 03/27/25 10:00 04/13/25 09:47 400 MG Ertapenem 0.5 gm DAILY IM 03/27/25 11:15 Cancel Diagnostic Test (Pha) 1 strip Q6HR 03/27/25 18:00 04/13/25 06:42 1 STRIP Insulin Human Regular FOLLOW SLIDING SCALE Q6HR SC 03/27/25 18:00 04/13/25 06:00 2 UNITS Dextrose 50 ml UD IV 03/27/25 12:30 Norepinephrine Bitartrate 250 ml @ 0.938 mls/ hr Q24H IV 03/28/25 09:15 04/13/25 10:00 3.75 MLS/HR Amiodarone HCl 200 mg Q12HR PO 03/29/25 10:00 04/13/25 09:48 200 MG Nystatin 1 applic DAILY TOP 04/01/25 10:00 04/13/25 10:01 1 APPLIC Multivit/Ca Carb/ B Cmplx/FA/Prenat 1 tab DAILY PO 04/03/25 10:00 04/13/25 09:48 1 TAB Ferrous Sulfate 325 mg BIDWM PO 04/03/25 18:00 04/13/25 08:32 325 MG Midodrine 10 mg TID@0600,1200,1800 PO 04/04/25 12:00 04/13/25 06:42 10 MG Albuterol 2.5 mg Q4HR NEB 04/06/25 14:00 04/13/25 07:08 2.5 MG Ipratropium [place] 0.5 mg Q4HR NEB 04/06/25 14:00 04/13/25 07:08 0.5 MG Ertapenem 1 gm/ Sodium Chloride 50 ml @ 100 mls/hr DAILY IV 04/08/25 14:00 04/13/25 09:58 100 MLS/HR Bumetanide 3 mg BIDD IV 04/08/25 18:00 04/13/25 06:42 3 MG Amino Acids 0 ml @ 0 mls/hr PER PHARMACY IV 04/09/25 09:00 Levothyroxine Sodium 50 mcg DAILY IV 04/09/25 10:00 04/13/25 09:49 50 MCG Metronidazole 100 ml @ 100 mls/hr Q8HR IV 04/12/25 14:00 04/13/25 06:42 100 MLS/HR Fat Emulsion Intravenous 200 ml/Sodium Chloride 60 meq/ Potassium Chloride 40 meq/ Potassium Phosphate 20 meq/ Magnesium Sulfate 8 meq/ Multivitamins 10 ml/Chromium/ Copper/Manganese/ Zinc 1 ml/Amino Acids/Dextrose/ Purified Water 1,552.5455 ml @ 64 mls/hr [id number] IV 04/12/25 22:00 04/13/25 21:59 04/12/25 21:45 64 MLS/HR laboratory and microbiology Laboratory Tests 04/13/25 04:31 Test 04/13/25 04:31 Range/Units Serum Glucose 119 H 74-106 mg/dL Assessment/Plan Impression SCOT hypoxemia COPD pneumonia left hydronephrosis septic shock pt seen and examined Events Low oxygen requirements On 3 liters nasal cannula On Levophed drip pt bed bound S/p percutaneous drain placement for peritoneal abscess Labs and imaging studies reviewed management Supplemental oxygen keep sats above 90% bronchodilators for copd HD per nephrology continue antibiotics f/u cultures pressors as needed for hemodynamic support gi and dvt proph Dietary Evaluation Review Comments: Renal Specific 60g CCHO-60 Cardiac Diet d/t SCOT over CKD and low GFR Expected Outcomes/Goals: less uremic symptoms, better weight management Plan discussed with: Patient CC Plasma Assessment Blood Product Administration S: [id number] MD Apr 13, 2025 10:24
--- NOTE | 2025-04-13 14:59 | DVHPN2 ---
Progress Note - Dictate Date Seen: Apr 13, 2025 Has the PT tested + for MRSA If YES, has PT been informed?: No Medical Necessity Reason Pt with a Central, PICC or Fol: Yes The following are medically ne: Tijerina Catheter Reason for tijerina catheter: Strict I&O Subjective No new complaints ; abdominal pain improved Currently NPO on IV TPN Patient is resting comfortably ; no sob ALEKSANDAR drain output is minimal bloody less than 5 mL HD today on IV Bumex Patient has history of chronic alcohol use been abstinence for about three months vital signs Vital Sign Date Time Temp Pulse Resp B/P (MAP) Pulse Ox O2 Delivery O2 Flow Rate FiO2 04/13/25 13:00 94 19 113/47 (69) 97 04/13/25 12:00 98.0 98.0 04/13/25 12:00 Nasal Cannula* 3 32 Total Intake and Output 04/12/25 04/12/25 04/13/25 15:00 23:00 07:00 Intake Total 573.063 ml 1034.502 ml 542.00 ml Output Total 350 ml 400 ml Balance 573.063 ml 684.502 ml 142.00 ml medications Current Medications Medications Dose Ordered Sig/Sravan Route Start Time Stop Time Status Last Admin Dose Admin Acetaminophen/ Hydrocodone Bitart 1 tab Q4HP PRN PO 03/20/25 12:15 04/11/25 23:13 1 TAB Ondansetron HCl 4 mg Q4HP PRN IV 03/20/25 12:15 03/26/25 08:18 4 MG Docusate Sodium 100 mg BIDPRN PRN PO 03/20/25 12:15 Acetaminophen 650 mg Q6HP PRN PO 03/20/25 12:15 03/28/25 10:59 650 MG Nitroglycerin 0.4 mg Q5MINP PRN SL 03/20/25 12:15 03/25/25 09:26 0.4 MG Morphine Sulfate 2 mg Q30M PRN IV 03/20/25 12:15 03/25/25 09:43 2 MG Allopurinol 100 mg DAILY PO 03/21/25 10:00 04/13/25 09:48 100 MG Apixaban 2.5 mg BID PO 03/20/25 22:00 04/13/25 09:48 2.5 MG Cilostazol 100 mg BID PO 03/20/25 22:00 04/13/25 09:57 100 MG Patient Own Medication 1 tab DAILY PO 03/21/25 10:00 UNV Patient Own Medication 1 tab DAILY PO 03/21/25 10:00 UNV Gabapentin 300 mg DAILY PO 03/21/25 10:00 04/13/25 09:47 300 MG Diphenhydramine HCl 50 mg [id number] PRN PO 03/21/25 16:45 04/13/25 09:51 50 MG Patient Own Medication 1 tab BID PO 03/21/25 22:00 04/13/25 09:56 1 TAB Throat Lozenges 1 liv Q2HP PRN MT 03/23/25 04:00 03/23/25 14:52 1 LIV Pantoprazole Sodium 40 mg DAILY IV 03/26/25 10:00 04/13/25 09:49 40 MG Magnesium Oxide 400 mg DAILY PO 03/27/25 10:00 04/13/25 09:47 400 MG Ertapenem 0.5 gm DAILY IM 03/27/25 11:15 Cancel Diagnostic Test (Pha) 1 strip Q6HR 03/27/25 18:00 04/13/25 11:22 1 STRIP Insulin Human Regular FOLLOW SLIDING SCALE Q6HR SC 03/27/25 18:00 04/13/25 06:00 2 UNITS Dextrose 50 ml UD IV 03/27/25 12:30 Norepinephrine Bitartrate 250 ml @ 0.938 mls/ hr Q24H IV 03/28/25 09:15 04/13/25 10:00 3.75 MLS/HR Amiodarone HCl 200 mg Q12HR PO 03/29/25 10:00 04/13/25 09:48 200 MG Nystatin 1 applic DAILY TOP 04/01/25 10:00 04/13/25 10:01 1 APPLIC Multivit/Ca Carb/ B Cmplx/FA/Prenat 1 tab DAILY PO 04/03/25 10:00 04/13/25 09:48 1 TAB Ferrous Sulfate 325 mg BIDWM PO 04/03/25 18:00 04/13/25 08:32 325 MG Midodrine 10 mg TID@0600,1200,1800 PO 04/04/25 12:00 04/13/25 11:18 10 MG Albuterol 2.5 mg Q4HR NEB 04/06/25 14:00 04/13/25 10:47 2.5 MG Ipratropium [place] 0.5 mg Q4HR NEB 04/06/25 14:00 04/13/25 10:47 0.5 MG Ertapenem 1 gm/ Sodium Chloride 50 ml @ 100 mls/hr DAILY IV 04/08/25 14:00 04/13/25 09:58 100 MLS/HR Bumetanide 3 mg BIDD IV 04/08/25 18:00 04/13/25 06:42 3 MG Amino Acids 0 ml @ 0 mls/hr PER PHARMACY IV 04/09/25 09:00 Levothyroxine Sodium 50 mcg DAILY IV 04/09/25 10:00 04/13/25 09:49 50 MCG Metronidazole 100 ml @ 100 mls/hr Q8HR IV 04/12/25 14:00 04/13/25 13:27 100 MLS/HR Fat Emulsion Intravenous 200 ml/Sodium Chloride 60 meq/ Potassium Chloride 40 meq/ Potassium Phosphate 20 meq/ Magnesium Sulfate 8 meq/ Multivitamins 10 ml/Chromium/ Copper/Manganese/ Zinc 1 ml/Amino Acids/Dextrose/ Purified Water 1,552.5455 ml @ 64 mls/hr [id number] IV 04/12/25 22:00 04/13/25 21:59 04/12/25 21:45 64 MLS/HR Fat Emulsion Intravenous 200 ml/Sodium Chloride 50 meq/ Potassium Chloride 40 meq/ Potassium Phosphate 25 meq/ Magnesium Sulfate 10 meq/ Multivitamins 10 ml/Chromium/ Copper/Manganese/ Zinc 1 ml/Amino Acids/Dextrose 1,401.6818 ml @ 58 mls/hr [id number] IV 04/13/25 22:00 04/14/25 21:59 objective General examination- awake, alert HEENT- PEERLA, morbidly obese Cardiovascular- S1-S2 audible, rate and rhythm regular, no murmur Respiratory- CTAB, no wheeze or rhonchi Gastrointestinal-lower abdominal wall tenderness+, bowel sound+. Nondistended Musculoskeletal-no acute joint swelling or tenderness or redness Lower extremity- no leg edema Neurological- cranial nerves intact, no acute dysarthria or dysphagia laboratory and microbiology Laboratory Tests 04/13/25 04:31 Test 04/13/25 04:31 Range/Units Serum Glucose 119 H 74-106 mg/dL Problems(with codes): (1) Medication noncompliance due to cognitive impairment (2) Acute on chronic systolic (congestive) heart failure (3) Atrial fibrillation with RVR (4) COPD with acute exacerbation (5) Failure to thrive (6) E. coli UTI (urinary tract infection) (7) Sepsis (8) Generalized weakness (9) Pelvic abscess in female Prognosis PLAN Patient is undergoing hemodialysis on TTS schedule Patient is getting IV Bumex twice a day Patient awaiting LTAC placement and chair time Fluid restriction 1 L per day NPO, IV antibiotics, IV TPN Repeat imaging in 2-4 weeks Liver appeared normal on CT abdomen Meld score is 27 points predictive of 19.6% three-month mortality Dietary Evaluation Review Comments: Renal Specific 60g CCHO-60 Cardiac Diet d/t SCOT over CKD and low GFR Expected Outcomes/Goals: less uremic symptoms, better weight management Plan discussed with: Patient, Other (FRANCHESCA Nurse Nabila) CC Plasma Assessment Blood Product Administration S: [id number] [address] AQUINO MD Apr 13, 2025 14:59
[2025-04-13] MEDS: TPN PER PHARMACY IV NR (22:33)
[2025-04-14] VITALS (103 sets, daily range): BP systolic 77–151; BP diastolic 39–83; PULSE 85–107; RESP 12–23; TEMP 98.1–98.9; O2SAT 94–100
[2025-04-14 06:08] LABS: Hematocrit 22.6 % (36.0-46.0); Hemoglobin 7.2 g/dL (12.2-16.2); Mean Corpuscular Hemoglobin 29.2 pg (28.0-32.0); Mean Corpuscular Volume 91.7 fL (80.0-100.0); Nucleated Red Blood Cells % 0.1 %
[2025-04-14 06:11] LABS: Anion Gap 9.0 (5-15); Carbon Dioxide 28.0 mmol/L (20-31); Chloride 99.0 mmol/L (98-107); Potassium 3.7 mmol/L (3.5-5.1); Sodium 136.0 mmol/L (136-145)
[2025-04-14 06:12] LABS: Calcium 8.9 mg/dL (8.7-10.4)
[2025-04-14 06:17] LABS: BUN/Creatinine Ratio 15.3 (10.0-20.0); Magnesium 2.2 mg/dL (1.6-2.6)
[2025-04-14 06:18] LABS: Albumin 3.0 g/dL (3.2-4.8); Blood Urea Nitrogen 31.0 mg/dL (9-23); Glucose 108.0 mg/dL (74-106); Iron 23.0 ug/dL (50-170)
[2025-04-14 06:19] LABS: Total Iron Binding Capacity 141.0 ug/dL (250-425)
--- NOTE | 2025-04-14 06:33 | DVHPN2 ---
Progress Note - Dictate Date Seen: Apr 14, 2025 Has the PT tested + for MRSA If YES, has PT been informed?: No Medical Necessity Reason Pt with a Central, PICC or Fol: Yes The following are medically ne: Tijerina Catheter Reason for tijerina catheter: Strict I&O vital signs Vital Sign Date Time Temp Pulse Resp B/P (MAP) Pulse Ox O2 Delivery O2 Flow Rate FiO2 04/14/25 06:30 97 Nasal Cannula* 3 32 04/14/25 06:30 94 16 04/13/25 23:15 116/51 (72) 04/13/25 20:00 97.8 97.8 Total Intake and Output 04/13/25 04/13/25 04/14/25 15:00 23:00 07:00 Intake Total 788.25 ml 756.00 ml 432.25 ml Output Total 950 ml Balance 788.25 ml -194.00 ml 432.25 ml medications Current Medications Medications Dose Ordered Sig/Sravan Route Start Time Stop Time Status Last Admin Dose Admin Acetaminophen/ Hydrocodone Bitart 1 tab Q4HP PRN PO 03/20/25 12:15 04/11/25 23:13 1 TAB Ondansetron HCl 4 mg Q4HP PRN IV 03/20/25 12:15 03/26/25 08:18 4 MG Docusate Sodium 100 mg BIDPRN PRN PO 03/20/25 12:15 Acetaminophen 650 mg Q6HP PRN PO 03/20/25 12:15 03/28/25 10:59 650 MG Nitroglycerin 0.4 mg Q5MINP PRN SL 03/20/25 12:15 03/25/25 09:26 0.4 MG Morphine Sulfate 2 mg Q30M PRN IV 03/20/25 12:15 03/25/25 09:43 2 MG Allopurinol 100 mg DAILY PO 03/21/25 10:00 04/13/25 09:48 100 MG Apixaban 2.5 mg BID PO 03/20/25 22:00 04/13/25 22:29 2.5 MG Cilostazol 100 mg BID PO 03/20/25 22:00 04/13/25 22:29 100 MG Patient Own Medication 1 tab DAILY PO 03/21/25 10:00 UNV Patient Own Medication 1 tab DAILY PO 03/21/25 10:00 UNV Gabapentin 300 mg DAILY PO 03/21/25 10:00 04/13/25 09:47 300 MG Diphenhydramine HCl 50 mg [id number] PRN PO 03/21/25 16:45 04/13/25 22:58 50 MG Patient Own Medication 1 tab BID PO 03/21/25 22:00 04/13/25 22:00 1 TAB Throat Lozenges 1 liv Q2HP PRN MT 03/23/25 04:00 03/23/25 14:52 1 LIV Pantoprazole Sodium 40 mg DAILY IV 03/26/25 10:00 04/13/25 09:49 40 MG Magnesium Oxide 400 mg DAILY PO 03/27/25 10:00 04/13/25 09:47 400 MG Ertapenem 0.5 gm DAILY IM 03/27/25 11:15 Cancel Diagnostic Test (Pha) 1 strip Q6HR 03/27/25 18:00 04/13/25 23:58 1 STRIP Insulin Human Regular FOLLOW SLIDING SCALE Q6HR SC 03/27/25 18:00 04/14/25 00:00 2 UNITS Dextrose 50 ml UD IV 03/27/25 12:30 Norepinephrine Bitartrate 250 ml @ 0.938 mls/ hr Q24H IV 03/28/25 09:15 04/13/25 10:00 3.75 MLS/HR Amiodarone HCl 200 mg Q12HR PO 03/29/25 10:00 04/13/25 22:29 200 MG Nystatin 1 applic DAILY TOP 04/01/25 10:00 04/13/25 10:01 1 APPLIC Multivit/Ca Carb/ B Cmplx/FA/Prenat 1 tab DAILY PO 04/03/25 10:00 04/13/25 09:48 1 TAB Ferrous Sulfate 325 mg BIDWM PO 04/03/25 18:00 04/13/25 17:33 325 MG Midodrine 10 mg TID@0600,1200,1800 PO 04/04/25 12:00 04/13/25 17:33 10 MG Albuterol 2.5 mg Q4HR NEB 04/06/25 14:00 04/14/25 06:30 2.5 MG Ipratropium [place] 0.5 mg Q4HR NEB 04/06/25 14:00 04/14/25 06:30 0.5 MG Ertapenem 1 gm/ Sodium Chloride 50 ml @ 100 mls/hr DAILY IV 04/08/25 14:00 04/13/25 09:58 100 MLS/HR Bumetanide 3 mg BIDD IV 04/08/25 18:00 04/13/25 17:35 3 MG Amino Acids 0 ml @ 0 mls/hr PER PHARMACY IV 04/09/25 09:00 Levothyroxine Sodium 50 mcg DAILY IV 04/09/25 10:00 04/13/25 09:49 50 MCG Metronidazole 100 ml @ 100 mls/hr Q8HR IV 04/12/25 14:00 04/13/25 22:29 100 MLS/HR Fat Emulsion Intravenous 200 ml/Sodium Chloride 50 meq/ Potassium Chloride 40 meq/ Potassium Phosphate 25 meq/ Magnesium Sulfate 10 meq/ Multivitamins 10 ml/Chromium/ Copper/Manganese/ Zinc 1 ml/Amino Acids/Dextrose 1,401.6818 ml @ 58 mls/hr [id number] IV 04/13/25 22:00 04/14/25 21:59 04/13/25 22:33 58 MLS/HR laboratory and microbiology Laboratory Tests 04/14/25 04:48 Test 04/14/25 04:48 Range/Units Serum Glucose 108 H 74-106 mg/dL Assessment/Plan Being managed in [facility]. NPO (concern for Diverticulitis) On Levophed Patient is a 74-year-old female who was admitted on March 20, 2025 for abdominal pain/nausea/vomiting. She is admitted to ICU for septic shock. On March 24, 2025, cardiology was involved for cardiac aspects of care. Patient is known to our practice from before and previous admissions. She is known to have significant alcohol abuse (drinks whiskey every day) and also history of pulmonary hypertension/type 2 pulmonary hypertension, diastolic heart failure. Does have poor functional capacity and is bed-bound. Is significantly morbidly obese. Does have baseline history of atrial fibrillation and is on Eliquis as outpatient. Is found to have septic shock and possible pelvic abscess. Is seen by surgery/Urology/pulmonary/GI. Denies chest pains. Denies palpitations. Is noncompliant with medication and followups. While being managed in ICU was found to have atrial fibrillation with RVR. 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 She has had multiple surgeries in the bilateral feet. She also has history of COPD/asthma with chronic respiratory failure (on home oxygen). Morbidly obese. Not in acute distress. No JVD. Mucosa is dry. Mucosa is pink. No JVD. No carotid bruit. Not using accessory muscles of breathing. Scattered rhonchi in the lungs is heard. Cardiac: Irregular, no thrill. Abdomen is obese and soft. There is no gross hepatomegaly, but it is presence can not be ruled out (body habitus, morbidly obese). There is 3+ edema in bilateral lower extremities which extends to abdominal wall. Past medical history includes morbid obesity, atrial fibrillation (on Eliquis as outpatient), COPD/asthma with chronic respiratory failure on home oxygen, morbid obesity, hypertension, hyperlipidemia, chronic lymphedema, Diastolic heart failure with type 2 pulmonary hypertension, rheumatoid arthritis, osteoarthritis, peripheral vascular disease, CKD (stage IV), anemia, alcohol abuse, neuropathy, gout, old history of right and left foot fracture and their management, status post right knee replacement, status post , bed-bound at baseline and functional quadriplegia. Patient drinks whiskey daily. Goes to Nephrology regularly. Reportedly, there has been some concern about going to have fistula creation on preparation for dialysis? Echocardiogram of January 03 2024 (performed in [facility]) revealed ejection fraction of 60%, mild biatrial enlargement, mild MR/TR and right ventricular systolic pressure of 31 mm Hg. Echocardiogram of (performed in [facility]) revealed: EF of 50 to 55%, Dilated right ventricle with normal systolic function. Severe biatrial enlargement. Mild AI, mild to moderate MR, moderate TR and RVSP of 51 mmHg. Ascending Aorta was 3.7 cm. Echocardiogram of November 09, 2024 revealed ejection fraction of 72%, mild right ventricular enlargement, moderate biatrial enlargement, mild to moderate tricuspid regurgitation, mild mitral regurgitation, right ventricular systolic pressure 54 mm Hg Echocardiogram of February 23, 2025 revealed ejection fraction of around 50%, mild concentric left ventricular hypertrophy, right ventricular enlargement with preserved systolic function. Biatrial enlargement, mild aortic insufficiency, [id number] mitral regurgitation and tricuspid regurgitation. IVC was significantly dilated. Right ventricular systolic pressure of of 55 mm Hg Hemoglobin: 6.7 - 8.6 - 8.1 - 7.6 - 7.9 - 7.7 - 7.8 - 7.8 - 7.6 - 7.5 - 7.1 - 7.0 - 8.5 - 8.2 - 7.6 - 7.7 - 7.5 - 7.1 - 7.0 - 6.8 - 7.9 - 7.6 - 7.8 - 7.6 - 7.5 - 7.4 - 7.5 - 7.2 Creatinine: 3.29 - 2.63 - 2.77 - 2.59 - 2.13 - 1.98 - 1.98 - 2.47- 2.98 - 3.36 - 3.56 - 3.83 - 4.12 - 4.27 - 4.67 - 4.54 - 2.92 - 2.91 - 2.98 - 2.06 - 2.36 - 2.49 - 1.96 - 2.34 - 1.92 - 2.25 - 1.81 - 2.03 Potassium: 3.9 - 3.4 - 3.8 - 3.3 - 3.4 - 3.9 - 3.5 - 3.5 - 3.3 - 3.4 - 3.7 - 3.8 - 4.0 - 4.3 - 4.0 - 3.6 - 3.3 - 3.5 - 3.9 - 3.9 - 4.0 - 3.9 - 3.7 - 3.3 - 2.7 - 3.8 - 3.8 - 3.7 - 3.7 Troponin (high sensitive): 32 - 31 - 34 TSH: 0.17 - 0.15 T3: 0.40 (low) T4: 5.7 Free T4: 1.27 Free T3: 1.55 (low) Urine and Aspirate culture: ESBL E-coli Chest x-ray revealed: IMPRESSION: Cardiomegaly. Repeat chest x-ray revealed: IMPRESSION: 1. Cardiomegaly with increased interstitial prominence suggestive of CHF exacerbation. 2. Pulmonary arterial hypertension. Repeat chest x-ray revealed: IMPRESSION: Cardiomegaly with mild pulmonary congestion. . Repeat chest x-ray revealed: IMPRESSION: Cardiomegaly with pulmonary congestion and edema. Superimposed pneumonia cannot be excluded. Repeat chest x-ray revealed: IMPRESSION: Worsening right lower lung airspace disease. Suggestion of small bilateral pleural effusions. Repeat chest xray revealed: IMPRESSION: No significant interval change Repeat chest xry revealed: IMPRESSION: 1. Right internal jugular hemodialysis catheter in place with tip at the cavoatrial junction. 2. Right internal jugular catheter in place unchanged 3. Findings suggest worsening airspace disease in probable congestive failure or volume overload. Repeat chest xry revealed: IMPRESSION: Similar lung aeration. Small bilateral pleural effusion. Cardiomegaly. Repeat chest xry revealed: IMPRESSION: Interval placement of left PICC with tip projecting over the superior vena cava. Otherwise no significant change compared to prior exam. Abdominal ultrasound revealed: IMPRESSION: Small left hydronephrosis Renal scan revealed: IMPRESSION: Bilateral renal obstruction is present which is not response to Lasix administration suggesting that the kidney may be minimally functional. Abdomen and pelvic CT scan revealed: IMPRESSION: Moderate left hydroureteronephrosis. Suggestion of possible small abscess formation in the left hemipelvis associated with the sigmoid colon measuring 5.7 cm. This may represent site of ureteral obstruction. Clinical correlation advised. Examination is limited secondary to lack of intravenous and oral contrast administration. Abdomen and pelvis CT revealed: IMPRESSION: Sigmoid colonic diverticulitis with an adjacent 6 cm fluid collection with gas, could be an abscess. Probable fistula of the sigmoid to the fluid collection, and possibly with the urinary bladder, which is decompressed with a Tijerina. Possible trace left hydronephrosis with perinephric fat stranding. Repeat CT of abdomen and pelvis revealed: IMPRESSION: Small to moderate bilateral pleural effusions and associated compressive atelectasis / consolidation. Left lower quadrant pelvic drain in satisfactory position with significant interval decrease in size of abscess currently measuring 2.2 cm, previously 5.[address] guided abscess drainage: IMPRESSION: CT guided placement of 8 bengali pigtail drain into a left hemipelvic abscess with 30 mL purulent fluid aspirated. PLAN: Routine tube care. Renal ultrasound revealed: IMPRESSION: Unremarkable renal ultrasound without hydronephrosis seen. EKG revealed atrial fibrillation with RVR Tele reveals atrial fibrillation with RVR Echocardiogram revealed: Left ventricle: Mild concentric left ventricular hypertrophy was seen. LVEF was around 50%. Right ventricle was mildly dilated with reduced systolic function. Both atria were dilated. Aortic valve was not well visualized. There was no aortic insufficiency/stenosis. There was mild mitral regurgitation. There was [id number] tricuspid regurgitation. Pulmonary valve was not well visualized. Right ventricular systolic pressure was assessed at 50 mm Hg. IVC was dilated. There was no pericardial effusion. Patient is a 74-year-old female with known history of diastolic heart failure with type 2 pulmonary hypertension who presented with abdominal pain. He is admitted to ICU with septic shock. Did have thrombocytopenia which slowly improved. Was significantly anemic and was transfused PRBC. There has been question about pelvic abscess and the patient is on antibiotics. Patient is being followed by surgery/Urology/pulmonary/GI. It is of note that the patient does have history of significant alcohol abuse (drinks good amount of whiskey daily) which could contribute to to some component of the clinical picture. Does have baseline history of pulmonary hypertension. Usually is on some amount of diuretic (Bumex) as outpatient. Clinically, the patient does have dry mucosa and maybe behind fluids at the time of evaluation. Does have baseline poor functional capacity. Does have history of recent sepsis. s/p CT guided abscess drainage. Seen by Nephrology. Diuretics are on hold. TFT are in favor of subclinical thyroid problem. Still with poor kidney function. Nephrology suggested hemodialysis, patient is hesitant. Significant anemia, status post PRBC transfusion Thrombocytopenia, resolved Septic shock SCOT on CKD Hydronephrosis Pelvic abscess Transaminitis Acute on chronic diastolic heart failure Pulmonary Hypertension, type 2 Alcohol abuse Morbid obesity Poor functional capacity Bed-bound at baseline Atrial fibrillation with RVR Hyperlipidemia Osteoarthritis Rheumatoid arthritis Peripheral vascular disease Abdominal abscess? s/p CT guided abscess drainage s/p PRBC transfusion Cardiac suggestion for management: Manage in [place] Follow-up electrolytes and kidney function tests and correct abnormalities Full anticoagulation (on Eliquis presently), long-term On Midodrine Started on HD On oral amiodarone Evaluation and management of sepsis/infection as per primary team Evaluation and management of alcohol abuse/prevention of withdrawal as per primary team Evaluation and management of pelvic abscess/hydronephrosis as per primary team/surgery/Urology Further evaluation and management depends on the above and clinical course A total of 75 minutes was spent reviewing the patient record, examining the patient, making a diagnostic and therapeutic plan, discussing this plan with medical personnel, following up on diagnostic studies and following the patient for clinical stability excluding any and all procedures. At least 50% of this time was spent in direct, [id number] contact. Thank you for allowing me to participate in this patient's care. Further recommendations will depend on patient's clinical course. Please do not hesitate to contact me if you have any questions or concerns. This medical document was created using electronic medical record system with [employer] computerized dictation system. Although this document has been carefully reviewed, there may still be some phonetic and typographical errors. These areas are purely typographical due to the imperfection of the software programs, and do not reflect any compromise in the patient's medical care. Dietary Evaluation Review Comments: Renal Specific 60g CCHO-60 Cardiac Diet d/t SCOT over CKD and low GFR Expected Outcomes/Goals: less uremic symptoms, better weight management Plan discussed with: Patient (patient and primary rn ) CC Plasma Assessment Blood Product Administration S: [id number] CHRISTOFER ARMANDO [facility] Apr 14, 2025 06:32
[2025-04-14] MEDS: SODIUM CHL 0.9% 1000 ML BAG XX ONE (07:00)
--- NOTE | 2025-04-14 13:40 | DVHPN2 ---
Progress Note - Dictate Date Seen: Apr 14, 2025 Has the PT tested + for MRSA If YES, has PT been informed?: No Medical Necessity Reason Pt with a Central, PICC or Fol: Yes The following are medically ne: Tijerina Catheter Reason for tijerina catheter: Strict I&O Subjective no new symptoms vital signs Vital Sign Date Time Temp Pulse Resp B/P (MAP) Pulse Ox O2 Delivery O2 Flow Rate FiO2 04/14/25 12:15 96 14 151/40 (77) 98 04/14/25 12:00 Nasal Cannula* 3 32 04/14/25 12:00 98.1 98.1 Total Intake and Output 04/13/25 04/13/25 04/14/25 15:00 23:00 07:00 Intake Total 788.25 ml 756.00 ml 544.00 ml Output Total 950 ml 1000 ml Balance 788.25 ml -194.00 ml -456.00 ml medications Current Medications Medications Dose Ordered Sig/Sravan Route Start Time Stop Time Status Last Admin Dose Admin Acetaminophen/ Hydrocodone Bitart 1 tab Q4HP PRN PO 03/20/25 12:15 04/11/25 23:13 Ondansetron HCl 4 mg Q4HP PRN IV 03/20/25 12:15 03/26/25 08:18 Docusate Sodium 100 mg BIDPRN PRN PO 03/20/25 12:15 Acetaminophen 650 mg Q6HP PRN PO 03/20/25 12:15 03/28/25 10:59 Nitroglycerin 0.4 mg Q5MINP PRN SL 03/20/25 12:15 03/25/25 09:26 Morphine Sulfate 2 mg Q30M PRN IV 03/20/25 12:15 03/25/25 09:43 Allopurinol 100 mg DAILY PO 03/21/25 10:00 04/14/25 11:00 Apixaban 2.5 mg BID PO 03/20/25 22:00 04/14/25 11:00 Cilostazol 100 mg BID PO 03/20/25 22:00 04/14/25 11:01 Patient Own Medication 1 tab DAILY PO 03/21/25 10:00 UNV Patient Own Medication 1 tab DAILY PO 03/21/25 10:00 UNV Gabapentin 300 mg DAILY PO 03/21/25 10:00 04/14/25 11:01 Diphenhydramine HCl 50 mg [id number] PRN PO 03/21/25 16:45 04/14/25 12:47 Patient Own Medication 1 tab BID PO 03/21/25 22:00 04/14/25 11:00 Throat Lozenges 1 adolfo Q2HP PRN MT 03/23/25 04:00 03/23/25 14:52 Pantoprazole Sodium 40 mg DAILY IV 03/26/25 10:00 04/14/25 10:59 Magnesium Oxide 400 mg DAILY PO 03/27/25 10:00 04/14/25 11:01 Ertapenem 0.5 gm DAILY IM 03/27/25 11:15 Cancel Diagnostic Test (Pha) 1 strip Q6HR 03/27/25 18:00 04/14/25 12:31 Insulin Human Regular FOLLOW SLIDING SCALE Q6HR SC 03/27/25 18:00 04/14/25 12:32 Dextrose 50 ml UD IV 03/27/25 12:30 Norepinephrine Bitartrate 250 ml @ 0.938 mls/ hr Q24H IV 03/28/25 09:15 04/14/25 11:04 Amiodarone HCl 200 mg Q12HR PO 03/29/25 10:00 04/14/25 11:00 Nystatin 1 applic DAILY TOP 04/01/25 10:00 04/14/25 11:01 Multivit/Ca Carb/ B Cmplx/FA/Prenat 1 tab DAILY PO 04/03/25 10:00 04/14/25 11:00 Ferrous Sulfate 325 mg BIDWM PO 04/03/25 18:00 04/14/25 07:43 Midodrine 10 mg TID@0600,1200,1800 PO 04/04/25 12:00 04/14/25 12:30 Albuterol 2.5 mg Q4HR NEB 04/06/25 14:00 04/14/25 10:00 Ipratropium [place] 0.5 mg Q4HR NEB 04/06/25 14:00 04/14/25 10:00 Ertapenem 1 gm/ Sodium Chloride 50 ml @ 100 mls/hr DAILY IV 04/08/25 14:00 04/14/25 10:59 Bumetanide 3 mg BIDD IV 04/08/25 18:00 04/14/25 06:35 Amino Acids 0 ml @ 0 mls/hr PER PHARMACY IV 04/09/25 09:00 Levothyroxine Sodium 50 mcg DAILY IV 04/09/25 10:00 04/14/25 10:59 Metronidazole 100 ml @ 100 mls/hr Q8HR IV 04/12/25 14:00 04/14/25 06:34 Fat Emulsion Intravenous 200 ml/Sodium Chloride 50 meq/ Potassium Chloride 40 meq/ Potassium Phosphate 25 meq/ Magnesium Sulfate 10 meq/ Multivitamins 10 ml/Chromium/ Copper/Manganese/ Zinc 1 ml/Amino Acids/Dextrose 1,401.6818 ml @ 58 mls/hr [id number] IV 04/13/25 22:00 04/14/25 21:59 04/13/25 22:33 Fat Emulsion Intravenous 200 ml/Sodium Chloride 60 meq/ Potassium Chloride 50 meq/ Potassium Acetate 10 meq/Potassium Phosphate 20 meq/ Magnesium Sulfate 10 meq/ Multivitamins 10 ml/Chromium/ Copper/Manganese/ Zinc 1 ml/Amino Acids/Dextrose 1,413.0455 ml @ 59 mls/hr [id number] IV 04/14/25 22:00 04/15/25 21:59 objective HEENT: No evidence of JVD, no oral ulcers. Pulmonary: Crackles on auscultation bilaterally Cardiovascular S1-S2, no S3 or S4 Abdomen: Bowel sounds positive, soft no rebound tenderness Skin: No rash Neurological: Alert, oriented, no focal weakness Extremities: 2+ lower extremity edema pitting Right upper chest CVC in place. laboratory and microbiology Laboratory Tests 04/14/25 04:48 Test 04/14/25 04:48 Range/Units Serum Glucose 108 H 74-106 mg/dL Assessment/Plan Assessment: Acute kidney injury superimposed on CKD 4 on intermittent HD Sepsis, urine culture: E coli and Klebsiella both of which are ESBL . Wound culture with E coli ESBL Pelvic abscess Status post drainage of left pelvic abscess Left hydronephrosis which has a resolved Acute on chronic diastolic heart failure Anemia status post transfusion of PRBC Pulmonary hypertension Atrial fibrillation Bed-bound patient Chronic alcoholism in remission, last alcoholic beverage three months ago. Hypokalemia Recommendation/plan Scheduled for HD for - Wednesday s/p HD Hemodialysis to continue on TTS schedule Continue Bumex b.i.d. 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
--- NOTE | 2025-04-14 14:35 | DVHPN2 ---
Progress Note - Dictate Date Seen: Apr 14, 2025 Has the PT tested + for MRSA If YES, has PT been informed?: No Medical Necessity Reason Pt with a Central, PICC or Fol: Yes The following are medically ne: Tijerina Catheter Reason for tijerina catheter: Strict I&O vital signs Vital Sign Date Time Temp Pulse Resp B/P (MAP) Pulse Ox O2 Delivery O2 Flow Rate FiO2 04/14/25 13:30 98 13 125/65 (85) 04/14/25 13:15 98 04/14/25 12:00 Nasal Cannula* 3 32 04/14/25 12:00 98.1 98.1 Total Intake and Output 04/13/25 04/13/25 04/14/25 15:00 23:00 07:00 Intake Total 788.25 ml 756.00 ml 544.00 ml Output Total 950 ml 1000 ml Balance 788.25 ml -194.00 ml -456.00 ml medications Current Medications Medications Dose Ordered Sig/Sravan Route Start Time Stop Time Status Last Admin Dose Admin Acetaminophen/ Hydrocodone Bitart 1 tab Q4HP PRN PO 03/20/25 12:15 04/11/25 23:13 1 TAB Ondansetron HCl 4 mg Q4HP PRN IV 03/20/25 12:15 03/26/25 08:18 4 MG Docusate Sodium 100 mg BIDPRN PRN PO 03/20/25 12:15 Acetaminophen 650 mg Q6HP PRN PO 03/20/25 12:15 03/28/25 10:59 650 MG Nitroglycerin 0.4 mg Q5MINP PRN SL 03/20/25 12:15 03/25/25 09:26 0.4 MG Morphine Sulfate 2 mg Q30M PRN IV 03/20/25 12:15 03/25/25 09:43 2 MG Allopurinol 100 mg DAILY PO 03/21/25 10:00 04/14/25 11:00 100 MG Apixaban 2.5 mg BID PO 03/20/25 22:00 04/14/25 11:00 2.5 MG Cilostazol 100 mg BID PO 03/20/25 22:00 04/14/25 11:01 100 MG Patient Own Medication 1 tab DAILY PO 03/21/25 10:00 UNV Patient Own Medication 1 tab DAILY PO 03/21/25 10:00 UNV Gabapentin 300 mg DAILY PO 03/21/25 10:00 04/14/25 11:01 300 MG Diphenhydramine HCl 50 mg [id number] PRN PO 03/21/25 16:45 04/14/25 12:47 50 MG Patient Own Medication 1 tab BID PO 03/21/25 22:00 04/14/25 11:00 1 TAB Throat Lozenges 1 liv Q2HP PRN MT 03/23/25 04:00 03/23/25 14:52 1 LIV Pantoprazole Sodium 40 mg DAILY IV 03/26/25 10:00 04/14/25 10:59 40 MG Magnesium Oxide 400 mg DAILY PO 03/27/25 10:00 04/14/25 11:01 400 MG Ertapenem 0.5 gm DAILY IM 03/27/25 11:15 Cancel Diagnostic Test (Pha) 1 strip Q6HR 03/27/25 18:00 04/14/25 12:31 1 STRIP Insulin Human Regular FOLLOW SLIDING SCALE Q6HR SC 03/27/25 18:00 04/14/25 12:32 2 UNITS Dextrose 50 ml UD IV 03/27/25 12:30 Norepinephrine Bitartrate 250 ml @ 0.938 mls/ hr Q24H IV 03/28/25 09:15 04/14/25 11:04 3.75 MLS/HR Amiodarone HCl 200 mg Q12HR PO 03/29/25 10:00 04/14/25 11:00 200 MG Nystatin 1 applic DAILY TOP 04/01/25 10:00 04/14/25 11:01 1 APPLIC Multivit/Ca Carb/ B Cmplx/FA/Prenat 1 tab DAILY PO 04/03/25 10:00 04/14/25 11:00 1 TAB Ferrous Sulfate 325 mg BIDWM PO 04/03/25 18:00 04/14/25 07:43 325 MG Midodrine 10 mg TID@0600,1200,1800 PO 04/04/25 12:00 04/14/25 12:30 10 MG Albuterol 2.5 mg Q4HR NEB 04/06/25 14:00 04/14/25 10:00 2.5 MG Ipratropium [place] 0.5 mg Q4HR NEB 04/06/25 14:00 04/14/25 10:00 0.5 MG Ertapenem 1 gm/ Sodium Chloride 50 ml @ 100 mls/hr DAILY IV 04/08/25 14:00 04/14/25 10:59 100 MLS/HR Bumetanide 3 mg BIDD IV 04/08/25 18:00 04/14/25 06:35 3 MG Amino Acids 0 ml @ 0 mls/hr PER PHARMACY IV 04/09/25 09:00 Levothyroxine Sodium 50 mcg DAILY IV 04/09/25 10:00 04/14/25 10:59 50 MCG Metronidazole 100 ml @ 100 mls/hr Q8HR IV 04/12/25 14:00 04/14/25 13:48 100 MLS/HR Fat Emulsion Intravenous 200 ml/Sodium Chloride 50 meq/ Potassium Chloride 40 meq/ Potassium Phosphate 25 meq/ Magnesium Sulfate 10 meq/ Multivitamins 10 ml/Chromium/ Copper/Manganese/ Zinc 1 ml/Amino Acids/Dextrose 1,401.6818 ml @ 58 mls/hr [id number] IV 04/13/25 22:00 04/14/25 21:59 04/13/25 22:33 58 MLS/HR Fat Emulsion Intravenous 200 ml/Sodium Chloride 60 meq/ Potassium Chloride 50 meq/ Potassium Acetate 10 meq/Potassium Phosphate 20 meq/ Magnesium Sulfate 10 meq/ Multivitamins 10 ml/Chromium/ Copper/Manganese/ Zinc 1 ml/Amino Acids/Dextrose 1,413.0455 ml @ 59 mls/hr [id number] IV 04/14/25 22:00 04/15/25 21:59 laboratory and microbiology Laboratory Tests 04/14/25 04:48 Test 04/14/25 04:48 Range/Units Serum Glucose 108 H 74-106 mg/dL Assessment/Plan Impression SCOT hypoxemia COPD pneumonia left hydronephrosis septic shock pt seen and examined Events Low oxygen requirements On 3 liters nasal cannula On Levophed drip at 2 mcg pt bed bound S/p percutaneous drain placement Labs and imaging studies reviewed management Supplemental oxygen keep sats above 90% bronchodilators for copd HD per nephrology continue antibiotics f/u cultures pressors as needed for hemodynamic support gi and dvt proph Dietary Evaluation Review Comments: Renal Specific 60g CCHO-60 Cardiac Diet d/t SCOT over CKD and low GFR Expected Outcomes/Goals: less uremic symptoms, better weight management Plan discussed with: Patient CC Plasma Assessment Blood Product Administration S: [id number] MD Apr 14, 2025 14:35
--- NOTE | 2025-04-14 14:45 | DVHPN2 ---
Reviewed: Care Plan, H&P, Labs, Medications, Previous Orders, Radiology Changes from previous H/P or p: No Changes General: Per HPI Eyes: No Pain, No Vision change, No Conjunctivae inflammation, No Eyelid inflammation, No Other, No Redness ENT: No Ear pain, No Ear discharge, No Nose pain, No Nose discharge, No Nose congestion, No Mouth pain, No Mouth swelling, No Throat pain, No Throat swelling, No Other Cardiovascular: No Chest Pain, No Palpitations, No Orthopnea, No Paroxysmal Noc. Dyspnea, No Edema, No Lt Headedness, No Other Respiratory: No Cough, No Dry, No Shortness of breath, No SOB with excertion, No Wheezing, No Hemoptysis, No Pleuritic Pain, No Sputum, No Other Gastrointestinal: Nausea, Vomiting, Abdominal Pain Genitourinary: No Dysuria, No Frequency, No Incontinence, No Hematuria, No Retention, No Other Musculoskeletal: No other, No neck pain, No shoulder pain, No arm pain, No back pain, No hand pain, No leg pain, No foot pain Skin: No Rash, No Lesions, No Jaundice, No Bruising, No Other Objective Vitals Vital Signs Date Time Temp Pulse Resp B/P (MAP) Pulse Ox O2 Delivery O2 Flow Rate FiO2 04/14/25 14:42 96 Nasal Cannula* 3 32 04/14/25 14:42 86 16 04/14/25 13:30 125/65 (85) 04/14/25 12:00 98.1 98.1 Intake/Output Intake and Output 04/14/25 07:00 Intake Total 2088.25 ml Output Total 1950 ml Balance 138.25 ml Intake Oral 120 ml IV Total 1968.25 ml Output Urine Total 1950 ml Drainage Total 0 ml General Appearance: Alert, Oriented X3, Cooperative, Other HEENT: Atraumatic, PERRLA Cardiovascular: Normal S1, Normal S2, Other Abdomen: Normal bowel sounds, Other Extremities: No edema, Normal pulses Neuro: Sensation intact, Cranial nerves 3-12 NL Skin: Dry, Intact Psych/Mental Status: Mental status NL, Mood NL Medications Current Medications Medications Dose Ordered Sig/Sravan Route Start Time Stop Time Status Last Admin Dose Admin Acetaminophen/ Hydrocodone Bitart 1 tab Q4HP PRN PO 03/20/25 12:15 04/11/25 23:13 1 TAB Ondansetron HCl 4 mg Q4HP PRN IV 6/24/25 12:15 03/26/25 08:18 4 MG Docusate Sodium 100 mg BIDPRN PRN PO 03/20/25 12:15 Acetaminophen 650 mg Q6HP PRN PO 03/20/25 12:15 03/28/25 10:59 650 MG Nitroglycerin 0.4 mg Q5MINP PRN SL 03/20/25 12:15 03/25/25 09:26 0.4 MG Morphine Sulfate 2 mg Q30M PRN IV 03/20/25 12:15 03/25/25 09:43 2 MG Allopurinol 100 mg DAILY PO 03/21/25 10:00 04/14/25 11:00 100 MG Apixaban 2.5 mg BID PO 03/20/25 22:00 04/14/25 11:00 2.5 MG Cilostazol 100 mg BID PO 03/20/25 22:00 04/14/25 11:01 100 MG Patient Own Medication 1 tab DAILY PO 03/21/25 10:00 UNV Patient Own Medication 1 tab DAILY PO 03/21/25 10:00 UNV Gabapentin 300 mg DAILY PO 03/21/25 10:00 04/14/25 11:01 300 MG Diphenhydramine HCl 50 mg [id number] PRN PO 03/21/25 16:45 04/14/25 12:47 50 MG Patient Own Medication 1 tab BID PO 03/21/25 22:00 04/14/25 11:00 1 TAB Throat Lozenges 1 liv Q2HP PRN MT 03/23/25 04:00 03/23/25 14:52 1 LIV Pantoprazole Sodium 40 mg DAILY IV 03/26/25 10:00 04/14/25 10:59 40 MG Magnesium Oxide 400 mg DAILY PO 03/27/25 10:00 04/14/25 11:01 400 MG Ertapenem 0.5 gm DAILY IM 03/27/25 11:15 Cancel Diagnostic Test (Pha) 1 strip Q6HR 03/27/25 18:00 04/14/25 12:31 1 STRIP Insulin Human Regular FOLLOW SLIDING SCALE Q6HR SC 03/27/25 18:00 04/14/25 12:32 2 UNITS Dextrose 50 ml UD IV 03/27/25 12:30 Norepinephrine Bitartrate 250 ml @ 0.938 mls/ hr Q24H IV 03/28/25 09:15 04/14/25 11:04 3.75 MLS/HR Amiodarone HCl 200 mg Q12HR PO 03/29/25 10:00 04/14/25 11:00 200 MG Nystatin 1 applic DAILY TOP 04/01/25 10:00 04/14/25 11:01 1 APPLIC Multivit/Ca Carb/ B Cmplx/FA/Prenat 1 tab DAILY PO 04/03/25 10:00 04/14/25 11:00 1 TAB Ferrous Sulfate 325 mg BIDWM PO 04/03/25 18:00 04/14/25 07:43 325 MG Midodrine 10 mg TID@0600,1200,1800 PO 04/04/25 12:00 04/14/25 12:30 10 MG Albuterol 2.5 mg Q4HR NEB 04/06/25 14:00 04/14/25 14:42 2.5 MG Ipratropium [place] 0.5 mg Q4HR NEB 04/06/25 14:00 04/14/25 14:42 0.5 MG Ertapenem 1 gm/ Sodium Chloride 50 ml @ 100 mls/hr DAILY IV 04/08/25 14:00 04/14/25 10:59 100 MLS/HR Bumetanide 3 mg BIDD IV 04/08/25 18:00 04/14/25 06:35 3 MG Amino Acids 0 ml @ 0 mls/hr PER PHARMACY IV 04/09/25 09:00 Levothyroxine Sodium 50 mcg DAILY IV 04/09/25 10:00 04/14/25 10:59 50 MCG Metronidazole 100 ml @ 100 mls/hr Q8HR IV 04/12/25 14:00 04/14/25 13:48 100 MLS/HR Fat Emulsion Intravenous 200 ml/Sodium Chloride 50 meq/ Potassium Chloride 40 meq/ Potassium Phosphate 25 meq/ Magnesium Sulfate 10 meq/ Multivitamins 10 ml/Chromium/ Copper/Manganese/ Zinc 1 ml/Amino Acids/Dextrose 1,401.6818 ml @ 58 mls/hr [id number] IV 04/13/25 22:00 04/14/25 21:59 04/13/25 22:33 58 MLS/HR Fat Emulsion Intravenous 200 ml/Sodium Chloride 60 meq/ Potassium Chloride 50 meq/ Potassium Acetate 10 meq/Potassium Phosphate 20 meq/ Magnesium Sulfate 10 meq/ Multivitamins 10 ml/Chromium/ Copper/Manganese/ Zinc 1 ml/Amino Acids/Dextrose 1,413.0455 ml @ 59 mls/hr [id number] IV 04/14/25 22:00 04/15/25 21:59 Laboratory Results Laboratory Tests 04/14/25 04:48 Chemistry Test 04/14/25 04:48 Albumin 3.0 g/dL (3.2-4.8) L Calcium Level 8.9 mg/dL (8.7-10.4) Magnesium Level 2.2 mg/dL (1.6-2.6) Phosphorus Level 3.0 mg/dL (2.4-5.1) Urinalysis Test 03/20/25 09:34 Urine Color Colorless (Yellow) Urine Clarity Turbid (Clear) H Urine pH 5.0 (5.0-9.0) Urine Specific [place] 1.015 (1.001-1.035) Urine Protein Negative (Negative) Urine Ketones Negative (Negative) Urine Blood Negative /uL (Negative) Urine Nitrite Negative (Negative) Urine Bilirubin Negative (Negative) Urine Urobilinogen Normal mg/dL (Negative) Urine Leukocyte Esterase 3+ /uL (Negative) Urine RBC 1 /hpf (0 - 4) Urine Microscopic WBC 255 /HPF (0-5) H Urine Squamous Epithelial Cells Few /hpf (<5) Urine Bacteria Few /hpf (None Seen) H Urine Glucose Normal mg/dL (Normal) Microbiology Microbiology Date/Time Source Procedure Growth Status 03/26/25 15:00 Aspirate Gram Stain - Final Complete 03/26/25 15:00 Body Fluid Culture - Final Escherichia coli - ESBL Enterobacter cloacae Proteus mirabilis Complete 03/23/25 04:30 Throat Nose/Throat Culture - Final Complete 03/21/25 18:00 Urine - Catheterized Urine Culture - Final Escherichia coli - ESBL Klebsiella pneumoniae - ESBL Complete 03/20/25 21:52 Nose MRSA Screen - Final Complete Assessment/Plan Assessment/Plan Zoila Gold is a 74-year-old female with past medial history of COPD, 3L/NC home oxygen, CHF, hypertension, hyperlipidemia, diabetes, and chronic renal disease, who came to the hospital for abdominal pain. Patient states she has been experiencing abdominal pain with associated nausea and vomiting for about 2-3 days. The pain was worsening and she was not able to eat prompting her to come to the hospital. While in the ER she was found to be anemic, hypotensive, and septic. Patient denies any signs/symptoms of bleeding or any recent sick contacts. Symptomatic anemia, Transaminitis, Hyponatremia, Acute on chronic kidney failure, COPD, CHF, Diabetes, sepsis/septic shock with pneumonia abd/pelvic abscess jade/ckd anemia, chronic hypomagnesemia 03/21/2025: on vasopressors, wean down as tolerated on lasix for LE edema b/l 03/22/2025 remains on vasopressor remains on empirical iv abx. surgery to evaluate for abscess 03/23/2025: slowing weaning down on vasopressor still has edema in LE b/l 03/24/2025 improving slowly 03/25/2025 possible abscess draining today IR to place catheter for abscess drainage if needed weaning down on vasopressor 03/26/2025 pt to have a catheter placed today for abscess drainage pt was down in the OR discussed with nursing hold off on Lasix replace mag Impression: -septic shock -diverticular abscess -AFib with RVR -morbid obesity -obstructive uropathy -CKD stage 4 -acute kidney injury, vasomotor nephropathy -acute on chronic systolic and diastolic heart failure -bed-bound status -complicated cystitis with ESBL in the urine. Events: Continues to be on Levophed drip at 2 micrograms/minute. Patient denies any other symptoms. Currently awaiting for transfer to long-term [facility] -social service consultation to transfer to long-term acute [facility] -norepinephrine p.r.n. -continue midodrine -continue Invanz and Flagyl. ID consultation pending -NPO except meds and TPN -continue anticoagulation with Eliquis -repeat labs in a.m. Plan discussed with: Patient Date of Service: Apr 14, 2025 Billing Provider: TORRIE BUTLER DO Common Visit Codes: [id number] CARE-EACH +30MIN TORRIE BUTLER DO Apr 14, 2025 14:45
--- NOTE | 2025-04-14 15:37 | DVHPN2 ---
Progress Note - Dictate Date Seen: Apr 14, 2025 Has the PT tested + for MRSA If YES, has PT been informed?: No Medical Necessity Reason Pt with a Central, PICC or Fol: Yes The following are medically ne: Tijerina Catheter Reason for tijerina catheter: Strict I&O Subjective No new complaints ; abdominal pain improved Currently NPO on IV TPN Patient is resting comfortably ; no sob Hemodialysis yesterday Hemoglobin stable running low at 7.2 ; no GI bleeding Patient has history of chronic alcohol use been abstinence for about three months vital signs Vital Sign Date Time Temp Pulse Resp B/P (MAP) Pulse Ox O2 Delivery O2 Flow Rate FiO2 04/14/25 15:00 100 20 113/47 (69) 96 04/14/25 14:42 Nasal Cannula* 3 32 04/14/25 12:00 98.1 98.1 Total Intake and Output 04/13/25 04/13/25 04/14/25 15:00 23:00 07:00 Intake Total 788.25 ml 756.00 ml 544.00 ml Output Total 950 ml 1000 ml Balance 788.25 ml -194.00 ml -456.00 ml medications Current Medications Medications Dose Ordered Sig/Sravan Route Start Time Stop Time Status Last Admin Dose Admin Acetaminophen/ Hydrocodone Bitart 1 tab Q4HP PRN PO 03/20/25 12:15 04/11/25 23:13 1 TAB Ondansetron HCl 4 mg Q4HP PRN IV 03/20/25 12:15 03/26/25 08:18 4 MG Docusate Sodium 100 mg BIDPRN PRN PO 03/20/25 12:15 Acetaminophen 650 mg Q6HP PRN PO 03/20/25 12:15 03/28/25 10:59 650 MG Nitroglycerin 0.4 mg Q5MINP PRN SL 03/20/25 12:15 03/25/25 09:26 0.4 MG Morphine Sulfate 2 mg Q30M PRN IV 03/20/25 12:15 03/25/25 09:43 2 MG Allopurinol 100 mg DAILY PO 03/21/25 10:00 04/14/25 11:00 100 MG Apixaban 2.5 mg BID PO 03/20/25 22:00 04/14/25 11:00 2.5 MG Cilostazol 100 mg BID PO 03/20/25 22:00 04/14/25 11:01 100 MG Patient Own Medication 1 tab DAILY PO 03/21/25 10:00 UNV Patient Own Medication 1 tab DAILY PO 03/21/25 10:00 UNV Gabapentin 300 mg DAILY PO 03/21/25 10:00 04/14/25 11:01 300 MG Diphenhydramine HCl 50 mg [id number] PRN PO 03/21/25 16:45 04/14/25 12:47 50 MG Patient Own Medication 1 tab BID PO 03/21/25 22:00 04/14/25 11:00 1 TAB Throat Lozenges 1 liv Q2HP PRN MT 03/23/25 04:00 03/23/25 14:52 1 LIV Pantoprazole Sodium 40 mg DAILY IV 03/26/25 10:00 04/14/25 10:59 40 MG Magnesium Oxide 400 mg DAILY PO 03/27/25 10:00 04/14/25 11:01 400 MG Ertapenem 0.5 gm DAILY IM 03/27/25 11:15 Cancel Diagnostic Test (Pha) 1 strip Q6HR 03/27/25 18:00 04/14/25 12:31 1 STRIP Insulin Human Regular FOLLOW SLIDING SCALE Q6HR SC 03/27/25 18:00 04/14/25 12:32 2 UNITS Dextrose 50 ml UD IV 03/27/25 12:30 Norepinephrine Bitartrate 250 ml @ 0.938 mls/ hr Q24H IV 03/28/25 09:15 04/14/25 11:04 3.75 MLS/HR Amiodarone HCl 200 mg Q12HR PO 03/29/25 10:00 04/14/25 11:00 200 MG Nystatin 1 applic DAILY TOP 04/01/25 10:00 04/14/25 11:01 1 APPLIC Multivit/Ca Carb/ B Cmplx/FA/Prenat 1 tab DAILY PO 04/03/25 10:00 04/14/25 11:00 1 TAB Ferrous Sulfate 325 mg BIDWM PO 04/03/25 18:00 04/14/25 07:43 325 MG Midodrine 10 mg TID@0600,1200,1800 PO 04/04/25 12:00 04/14/25 12:30 10 MG Albuterol 2.5 mg Q4HR NEB 04/06/25 14:00 04/14/25 14:42 2.5 MG Ipratropium [place] 0.5 mg Q4HR NEB 04/06/25 14:00 04/14/25 14:42 0.5 MG Ertapenem 1 gm/ Sodium Chloride 50 ml @ 100 mls/hr DAILY IV 04/08/25 14:00 04/14/25 10:59 100 MLS/HR Bumetanide 3 mg BIDD IV 04/08/25 18:00 04/14/25 06:35 3 MG Amino Acids 0 ml @ 0 mls/hr PER PHARMACY IV 04/09/25 09:00 Levothyroxine Sodium 50 mcg DAILY IV 04/09/25 10:00 04/14/25 10:59 50 MCG Metronidazole 100 ml @ 100 mls/hr Q8HR IV 04/12/25 14:00 04/14/25 13:48 100 MLS/HR Fat Emulsion Intravenous 200 ml/Sodium Chloride 50 meq/ Potassium Chloride 40 meq/ Potassium Phosphate 25 meq/ Magnesium Sulfate 10 meq/ Multivitamins 10 ml/Chromium/ Copper/Manganese/ Zinc 1 ml/Amino Acids/Dextrose 1,401.6818 ml @ 58 mls/hr [id number] IV 04/13/25 22:00 04/14/25 21:59 04/13/25 22:33 58 MLS/HR Fat Emulsion Intravenous 200 ml/Sodium Chloride 60 meq/ Potassium Chloride 50 meq/ Potassium Acetate 10 meq/Potassium Phosphate 20 meq/ Magnesium Sulfate 10 meq/ Multivitamins 10 ml/Chromium/ Copper/Manganese/ Zinc 1 ml/Amino Acids/Dextrose 1,413.0455 ml @ 59 mls/hr [id number] IV 04/14/25 22:00 04/15/25 21:59 objective General examination- awake, alert HEENT- PEERLA, morbidly obese Cardiovascular- S1-S2 audible, rate and rhythm regular, no murmur Respiratory- CTAB, no wheeze or rhonchi Gastrointestinal-lower abdominal wall tenderness+, bowel sound+. Nondistended Musculoskeletal-no acute joint swelling or tenderness or redness Lower extremity- no leg edema Neurological- cranial nerves intact, no acute dysarthria or dysphagia laboratory and microbiology Laboratory Tests 04/14/25 04:48 Test 04/14/25 04:48 Range/Units Serum Glucose 108 H 74-106 mg/dL Problems(with codes): (1) Atrial fibrillation with RVR (2) COPD with acute exacerbation (3) Elevated troponin (4) E. coli UTI (urinary tract infection) (5) Sepsis (6) Generalized weakness (7) Pelvic abscess in female Prognosis Plan Continue IV antibiotics Continue TPN Patient is awaiting LTAC placement Consider repeat imaging in 2-4 weeks to see if the abscess is resolving IV iron and Epogen to help with anemia of chronic disease Dietary Evaluation Review Comments: Renal Specific 60g CCHO-60 Cardiac Diet d/t SCOT over CKD and low GFR Expected Outcomes/Goals: less uremic symptoms, better weight management Plan discussed with: Other (FRANCHESCA Nurse Nabila) CC Plasma Assessment Blood Product Administration S: [id number] MAGALYS AQUINO MD Apr 14, 2025 15:37
--- NOTE | 2025-04-14 20:50 | DVHPN2 ---
Consult Progress Note Objective vital signs Vital Sign Date Time Temp Pulse Resp B/P (MAP) Pulse Ox O2 Delivery O2 Flow Rate FiO2 04/14/25 19:00 88 21 115/47 (69) 98 04/14/25 18:50 3.0 32 04/14/25 18:30 Nasal Cannula 04/14/25 16:00 98.9 98.9 Total Intake and Output 04/13/25 04/13/25 04/14/25 15:00 23:00 07:00 Intake Total 788.25 ml 756.00 ml 544.00 ml Output Total 950 ml 1000 ml Balance 788.25 ml -194.00 ml -456.00 ml medications Current Medications Medications Dose Ordered Sig/Sravan Route Start Time Stop Time Status Last Admin Dose Admin Acetaminophen/ Hydrocodone Bitart 1 tab Q4HP PRN PO 03/20/25 12:15 04/11/25 23:13 1 TAB Ondansetron HCl 4 mg Q4HP PRN IV 03/20/25 12:15 03/26/25 08:18 4 MG Docusate Sodium 100 mg BIDPRN PRN PO 03/20/25 12:15 Acetaminophen 650 mg Q6HP PRN PO 03/20/25 12:15 03/28/25 10:59 650 MG Nitroglycerin 0.4 mg Q5MINP PRN SL 03/20/25 12:15 03/25/25 09:26 0.4 MG Morphine Sulfate 2 mg Q30M PRN IV 03/20/25 12:15 03/25/25 09:43 2 MG Allopurinol 100 mg DAILY PO 03/21/25 10:00 04/14/25 11:00 100 MG Apixaban 2.5 mg BID PO 03/20/25 22:00 04/14/25 11:00 2.5 MG Cilostazol 100 mg BID PO 03/20/25 22:00 04/14/25 11:01 100 MG Patient Own Medication 1 tab DAILY PO 03/21/25 10:00 UNV Patient Own Medication 1 tab DAILY PO 03/21/25 10:00 UNV Gabapentin 300 mg DAILY PO 03/21/25 10:00 04/14/25 11:01 300 MG Diphenhydramine HCl 50 mg [id number] PRN PO 03/21/25 16:45 04/14/25 12:47 50 MG Patient Own Medication 1 tab BID PO 03/21/25 22:00 04/14/25 11:00 1 TAB Throat Lozenges 1 liv Q2HP PRN MT 03/23/25 04:00 03/23/25 14:52 1 LIV Pantoprazole Sodium 40 mg DAILY IV 03/26/25 10:00 04/14/25 10:59 40 MG Magnesium Oxide 400 mg DAILY PO 03/27/25 10:00 04/14/25 11:01 400 MG Ertapenem 0.5 gm DAILY IM 03/27/25 11:15 Cancel Diagnostic Test (Pha) 1 strip Q6HR 03/27/25 18:00 04/14/25 17:28 1 STRIP Insulin Human Regular FOLLOW SLIDING SCALE Q6HR SC 03/27/25 18:00 04/14/25 17:31 2 UNITS Dextrose 50 ml UD IV 03/27/25 12:30 Norepinephrine Bitartrate 250 ml @ 0.938 mls/ hr Q24H IV 03/28/25 09:15 04/14/25 11:04 3.75 MLS/HR Amiodarone HCl 200 mg Q12HR PO 03/29/25 10:00 04/14/25 11:00 200 MG Nystatin 1 applic DAILY TOP 04/01/25 10:00 04/14/25 11:01 1 APPLIC Multivit/Ca Carb/ B Cmplx/FA/Prenat 1 tab DAILY PO 04/03/25 10:00 04/14/25 11:00 1 TAB Ferrous Sulfate 325 mg BIDWM PO 04/03/25 18:00 04/14/25 18:08 325 MG Midodrine 10 mg TID@0600,1200,1800 PO 04/04/25 12:00 04/14/25 18:09 10 MG Albuterol 2.5 mg Q4HR NEB 04/06/25 14:00 04/14/25 18:30 2.5 MG Ipratropium [place] 0.5 mg Q4HR NEB 04/06/25 14:00 04/14/25 18:30 0.5 MG Ertapenem 1 gm/ Sodium Chloride 50 ml @ 100 mls/hr DAILY IV 04/08/25 14:00 04/14/25 10:59 100 MLS/HR Bumetanide 3 mg BIDD IV 04/08/25 18:00 04/14/25 18:08 3 MG Amino Acids 0 ml @ 0 mls/hr PER PHARMACY IV 04/09/25 09:00 Levothyroxine Sodium 50 mcg DAILY IV 04/09/25 10:00 04/14/25 10:59 50 MCG Metronidazole 100 ml @ 100 mls/hr Q8HR IV 04/12/25 14:00 04/14/25 13:48 100 MLS/HR Fat Emulsion Intravenous 200 ml/Sodium Chloride 50 meq/ Potassium Chloride 40 meq/ Potassium Phosphate 25 meq/ Magnesium Sulfate 10 meq/ Multivitamins 10 ml/Chromium/ Copper/Manganese/ Zinc 1 ml/Amino Acids/Dextrose 1,401.6818 ml @ 58 mls/hr [id number] IV 04/13/25 22:00 04/14/25 21:59 04/13/25 22:33 58 MLS/HR Fat Emulsion Intravenous 200 ml/Sodium Chloride 60 meq/ Potassium Chloride 50 meq/ Potassium Acetate 10 meq/Potassium Phosphate 20 meq/ Magnesium Sulfate 10 meq/ Multivitamins 10 ml/Chromium/ Copper/Manganese/ Zinc 1 ml/Amino Acids/Dextrose 1,413.0455 ml @ 59 mls/hr [id number] IV 04/14/25 22:00 04/15/25 21:59 laboratory and microbiology Laboratory Tests 04/14/25 04:48 Test 04/14/25 04:48 Range/Units Serum Glucose 108 H 74-106 mg/dL Dietary Evaluation Review Comments: Renal Specific 60g CCHO-60 Cardiac Diet d/t SCOT over CKD and low GFR Expected Outcomes/Goals: less uremic symptoms, better weight management CC Plasma Assessment Blood Product Administration S: [id number] CHARLY AWAN MD Apr 14, 2025 20:50
--- NOTE | 2025-04-14 20:50 | DVHPN2 ---
Consult Progress Note Objective vital signs Vital Sign Date Time Temp Pulse Resp B/P (MAP) Pulse Ox O2 Delivery O2 Flow Rate FiO2 04/14/25 19:00 88 21 115/47 (69) 98 04/14/25 18:50 3.0 32 04/14/25 18:30 Nasal Cannula 04/14/25 16:00 98.9 98.9 Total Intake and Output 04/13/25 04/13/25 04/14/25 15:00 23:00 07:00 Intake Total 788.25 ml 756.00 ml 544.00 ml Output Total 950 ml 1000 ml Balance 788.25 ml -194.00 ml -456.00 ml medications Current Medications Medications Dose Ordered Sig/Sravan Route Start Time Stop Time Status Last Admin Dose Admin Acetaminophen/ Hydrocodone Bitart 1 tab Q4HP PRN PO 03/20/25 12:15 04/11/25 23:13 1 TAB Ondansetron HCl 4 mg Q4HP PRN IV 03/20/25 12:15 03/26/25 08:18 4 MG Docusate Sodium 100 mg BIDPRN PRN PO 03/20/25 12:15 Acetaminophen 650 mg Q6HP PRN PO 03/20/25 12:15 03/28/25 10:59 650 MG Nitroglycerin 0.4 mg Q5MINP PRN SL 03/20/25 12:15 03/25/25 09:26 0.4 MG Morphine Sulfate 2 mg Q30M PRN IV 03/20/25 12:15 03/25/25 09:43 2 MG Allopurinol 100 mg DAILY PO 03/21/25 10:00 04/14/25 11:00 100 MG Apixaban 2.5 mg BID PO 03/20/25 22:00 04/14/25 11:00 2.5 MG Cilostazol 100 mg BID PO 03/20/25 22:00 04/14/25 11:01 100 MG Patient Own Medication 1 tab DAILY PO 03/21/25 10:00 UNV Patient Own Medication 1 tab DAILY PO 03/21/25 10:00 UNV Gabapentin 300 mg DAILY PO 03/21/25 10:00 04/14/25 11:01 300 MG Diphenhydramine HCl 50 mg [id number] PRN PO 03/21/25 16:45 04/14/25 12:47 50 MG Patient Own Medication 1 tab BID PO 03/21/25 22:00 04/14/25 11:00 1 TAB Throat Lozenges 1 liv Q2HP PRN MT 03/23/25 04:00 03/23/25 14:52 1 LIV Pantoprazole Sodium 40 mg DAILY IV 03/26/25 10:00 04/14/25 10:59 40 MG Magnesium Oxide 400 mg DAILY PO 03/27/25 10:00 04/14/25 11:01 400 MG Ertapenem 0.5 gm DAILY IM 03/27/25 11:15 Cancel Diagnostic Test (Pha) 1 strip Q6HR 03/27/25 18:00 04/14/25 17:28 1 STRIP Insulin Human Regular FOLLOW SLIDING SCALE Q6HR SC 03/27/25 18:00 04/14/25 17:31 2 UNITS Dextrose 50 ml UD IV 03/27/25 12:30 Norepinephrine Bitartrate 250 ml @ 0.938 mls/ hr Q24H IV 03/28/25 09:15 04/14/25 11:04 3.75 MLS/HR Amiodarone HCl 200 mg Q12HR PO 03/29/25 10:00 04/14/25 11:00 200 MG Nystatin 1 applic DAILY TOP 04/01/25 10:00 04/14/25 11:01 1 APPLIC Multivit/Ca Carb/ B Cmplx/FA/Prenat 1 tab DAILY PO 04/03/25 10:00 04/14/25 11:00 1 TAB Ferrous Sulfate 325 mg BIDWM PO 04/03/25 18:00 04/14/25 18:08 325 MG Midodrine 10 mg TID@0600,1200,1800 PO 04/04/25 12:00 04/14/25 18:09 10 MG Albuterol 2.5 mg Q4HR NEB 04/06/25 14:00 04/14/25 18:30 2.5 MG Ipratropium [place] 0.5 mg Q4HR NEB 04/06/25 14:00 04/14/25 18:30 0.5 MG Ertapenem 1 gm/ Sodium Chloride 50 ml @ 100 mls/hr DAILY IV 04/08/25 14:00 04/14/25 10:59 100 MLS/HR Bumetanide 3 mg BIDD IV 04/08/25 18:00 04/14/25 18:08 3 MG Amino Acids 0 ml @ 0 mls/hr PER PHARMACY IV 04/09/25 09:00 Levothyroxine Sodium 50 mcg DAILY IV 04/09/25 10:00 04/14/25 10:59 50 MCG Metronidazole 100 ml @ 100 mls/hr Q8HR IV 04/12/25 14:00 04/14/25 13:48 100 MLS/HR Fat Emulsion Intravenous 200 ml/Sodium Chloride 50 meq/ Potassium Chloride 40 meq/ Potassium Phosphate 25 meq/ Magnesium Sulfate 10 meq/ Multivitamins 10 ml/Chromium/ Copper/Manganese/ Zinc 1 ml/Amino Acids/Dextrose 1,401.6818 ml @ 58 mls/hr [id number] IV 04/13/25 22:00 04/14/25 21:59 04/13/25 22:33 58 MLS/HR Fat Emulsion Intravenous 200 ml/Sodium Chloride 60 meq/ Potassium Chloride 50 meq/ Potassium Acetate 10 meq/Potassium Phosphate 20 meq/ Magnesium Sulfate 10 meq/ Multivitamins 10 ml/Chromium/ Copper/Manganese/ Zinc 1 ml/Amino Acids/Dextrose 1,413.0455 ml @ 59 mls/hr [id number] IV 04/14/25 22:00 04/15/25 21:59 laboratory and microbiology Laboratory Tests 04/14/25 04:48 Test 04/14/25 04:48 Range/Units Serum Glucose 108 H 74-106 mg/dL Problem List/Assessment/Plan Problem List/Assessment/Plan patient seen at bedside, full note to follow tolerating TPN no leukocytosis or abdominal pain continue ertapenem, covers anaerobes, no need for flagyl continue for 6 weeks patient remains at high for failure/persistence of infection given size and complexity of abscess, with enlargement seen on CT abd/pelvis, please have surgery reevaluate need for surgery otherwise patient should fu w/ ID and general surgery as outpatient in 4-6 weeks for repeat imaging and reassessment Dietary Evaluation Review Comments: Renal Specific 60g CCHO-60 Cardiac Diet d/t SCOT over CKD and low GFR Expected Outcomes/Goals: less uremic symptoms, better weight management CC Plasma Assessment Blood Product Administration S: [id number] CHARLY AWAN MD Apr 14, 2025 20:50
[2025-04-14] MEDS: SODIUM CHLORIDE IV NR (21:54)
[2025-04-14] MEDS: FAT EMULSION IV NR (21:54)
[2025-04-14] MEDS: POTASSIUM CHLORIDE IV NR (21:54)
[2025-04-14] MEDS: [UNRECOGNIZED DRUG - OTHER] IV NR (21:54)
[2025-04-14] MEDS: EPOETIN ALFA-EPBX 10,000 UNIT/1ML VIAL SC ONE (22:01)
[2025-04-15] VITALS (110 sets, daily range): BP systolic 46–140; BP diastolic 30–69; PULSE 87–110; RESP 11–22; TEMP 97.7–98.7; O2SAT 93–100
--- NOTE | 2025-04-15 07:12 | DVHPN2 ---
Progress Note - Dictate Date Seen: Apr 15, 2025 Has the PT tested + for MRSA If YES, has PT been informed?: No Medical Necessity Reason Pt with a Central, PICC or Fol: Yes The following are medically ne: Tijerina Catheter Reason for tijerina catheter: Strict I&O vital signs Vital Sign Date Time Temp Pulse Resp B/P (MAP) Pulse Ox O2 Delivery O2 Flow Rate FiO2 04/15/25 06:45 94 18 121/53 (75) 100 04/15/25 06:00 Nasal Cannula* 3 32 04/15/25 04:00 98.4 98.4 Total Intake and Output 04/14/25 04/14/25 04/15/25 15:00 23:00 07:00 Intake Total 694.00 ml 616.00 ml 439.25 ml Output Total 900 ml 775 ml Balance 694.00 ml -284.00 ml -335.75 ml medications Current Medications Medications Dose Ordered Sig/Sravan Route Start Time Stop Time Status Last Admin Dose Admin Acetaminophen/ Hydrocodone Bitart 1 tab Q4HP PRN PO 03/20/25 12:15 04/11/25 23:13 1 TAB Ondansetron HCl 4 mg Q4HP PRN IV 03/20/25 12:15 03/26/25 08:18 4 MG Docusate Sodium 100 mg BIDPRN PRN PO 03/20/25 12:15 Acetaminophen 650 mg Q6HP PRN PO 03/20/25 12:15 03/28/25 10:59 650 MG Nitroglycerin 0.4 mg Q5MINP PRN SL 03/20/25 12:15 03/25/25 09:26 0.4 MG Morphine Sulfate 2 mg Q30M PRN IV 03/20/25 12:15 03/25/25 09:43 2 MG Allopurinol 100 mg DAILY PO 03/21/25 10:00 04/14/25 11:00 100 MG Apixaban 2.5 mg BID PO 03/20/25 22:00 04/14/25 21:52 2.5 MG Cilostazol 100 mg BID PO 03/20/25 22:00 04/14/25 21:52 100 MG Patient Own Medication 1 tab DAILY PO 03/21/25 10:00 UNV Patient Own Medication 1 tab DAILY PO 03/21/25 10:00 UNV Gabapentin 300 mg DAILY PO 03/21/25 10:00 04/14/25 11:01 300 MG Diphenhydramine HCl 50 mg [id number] PRN PO 03/21/25 16:45 04/15/25 00:55 50 MG Patient Own Medication 1 tab BID PO 03/21/25 22:00 04/14/25 22:00 1 TAB Throat Lozenges 1 liv Q2HP PRN MT 03/23/25 04:00 03/23/25 14:52 1 LIV Pantoprazole Sodium 40 mg DAILY IV 03/26/25 10:00 04/14/25 10:59 40 MG Magnesium Oxide 400 mg DAILY PO 03/27/25 10:00 04/14/25 11:01 400 MG Ertapenem 0.5 gm DAILY IM 03/27/25 11:15 Cancel Diagnostic Test (Pha) 1 strip Q6HR 03/27/25 18:00 04/15/25 06:00 1 STRIP Insulin Human Regular FOLLOW SLIDING SCALE Q6HR SC 03/27/25 18:00 04/15/25 06:00 2 UNITS Dextrose 50 ml UD IV 03/27/25 12:30 Norepinephrine Bitartrate 250 ml @ 0.938 mls/ hr Q24H IV 03/28/25 09:15 04/14/25 11:04 3.75 MLS/HR Amiodarone HCl 200 mg Q12HR PO 03/29/25 10:00 04/14/25 21:52 200 MG Nystatin 1 applic DAILY TOP 04/01/25 10:00 04/14/25 11:01 1 APPLIC Multivit/Ca Carb/ B Cmplx/FA/Prenat 1 tab DAILY PO 04/03/25 10:00 04/14/25 11:00 1 TAB Ferrous Sulfate 325 mg BIDWM PO 04/03/25 18:00 04/14/25 18:08 325 MG Midodrine 10 mg TID@0600,1200,1800 PO 04/04/25 12:00 04/15/25 05:36 10 MG Albuterol 2.5 mg Q4HR NEB 04/06/25 14:00 04/15/25 02:18 2.5 MG Ipratropium [place] 0.5 mg Q4HR NEB 04/06/25 14:00 04/15/25 02:18 0.5 MG Ertapenem 1 gm/ Sodium Chloride 50 ml @ 100 mls/hr DAILY IV 04/08/25 14:00 04/14/25 10:59 100 MLS/HR Bumetanide 3 mg BIDD IV 04/08/25 18:00 04/15/25 05:36 3 MG Amino Acids 0 ml @ 0 mls/hr PER PHARMACY IV 04/09/25 09:00 Levothyroxine Sodium 50 mcg DAILY IV 04/09/25 10:00 04/14/25 10:59 50 MCG Fat Emulsion Intravenous 200 ml/Sodium Chloride 60 meq/ Potassium Chloride 50 meq/ Potassium Acetate 10 meq/Potassium Phosphate 20 meq/ Magnesium Sulfate 10 meq/ Multivitamins 10 ml/Chromium/ Copper/Manganese/ Zinc 1 ml/Amino Acids/Dextrose 1,413.0455 ml @ 59 mls/hr [id number] IV 04/14/25 22:00 04/15/25 21:59 04/14/25 21:54 59 MLS/HR laboratory and microbiology Test 04/15/25 04:51 Range/Units Serum Glucose Pending Assessment/Plan Being managed in [facility]. NPO (concern for Diverticulitis) On Levophed Patient is a 74-year-old female who was admitted on March 20, 2025 for abdominal pain/nausea/vomiting. She is admitted to ICU for septic shock. On March 24, 2025, cardiology was involved for cardiac aspects of care. Patient is known to our practice from before and previous admissions. She is known to have significant alcohol abuse (drinks whiskey every day) and also history of pulmonary hypertension/type 2 pulmonary hypertension, diastolic heart failure. Does have poor functional capacity and is bed-bound. Is significantly morbidly obese. Does have baseline history of atrial fibrillation and is on Eliquis as outpatient. Is found to have septic shock and possible pelvic abscess. Is seen by surgery/Urology/pulmonary/GI. Denies chest pains. Denies palpitations. Is noncompliant with medication and followups. While being managed in ICU was found to have atrial fibrillation with RVR. She mentions that she does go to [facility] regularly. She has had multiple surgeries in the bilateral feet. She also has history of COPD/asthma with chronic respiratory failure (on home oxygen). Morbidly obese. Not in acute distress. No JVD. Mucosa is dry. Mucosa is pink. No JVD. No carotid bruit. Not using accessory muscles of breathing. Scattered rhonchi in the lungs is heard. Cardiac: Irregular, no thrill. Abdomen is obese and soft. There is no gross hepatomegaly, but it is presence can not be ruled out (body habitus, morbidly obese). There is 3+ edema in bilateral lower extremities which extends to abdominal wall. Past medical history includes morbid obesity, atrial fibrillation (on Eliquis as outpatient), COPD/asthma with chronic respiratory failure on home oxygen, morbid obesity, hypertension, hyperlipidemia, chronic lymphedema, Diastolic heart failure with type 2 pulmonary hypertension, rheumatoid arthritis, oste oarthritis, peripheral vascular disease, CKD (stage IV), anemia, alcohol abuse, neuropathy, gout, old history of right and left foot fracture and their management, status post right knee replacement, status post , bed-bound at baseline and functional quadriplegia. Patient drinks whiskey daily. Goes to Nephrology regularly. Reportedly, there has been some concern about going to have fistula creation on preparation for dialysis? Echocardiogram of January 03 2024 (performed in [facility]) revealed ejection fraction of 60%, mild biatrial enlargement, mild MR/TR and right ventricular systolic pressure of 31 mm Hg. Echocardiogram of (performed in [facility]) revealed: EF of 50 to 55%, Dilated right ventricle with normal systolic function. Severe biatrial enlargement. Mild AI, mild to moderate MR, moderate TR and RVSP of 51 mmHg. Ascending Aorta was 3.7 cm. Echocardiogram of November 09, 2024 revealed ejection fraction of 72%, mild right ventricular enlargement, moderate biatrial enlargement, mild to moderate tricuspid regurgitation, mild mitral regurgitation, right ventricular systolic pressure 54 mm Hg Echocardiogram of February 23, 2025 revealed ejection fraction of around 50%, mild concentric left ventricular hypertrophy, right ventricular enlargement with preserved systolic function. Biatrial enlargement, mild aortic insufficiency, [id number] mitral regurgitation and tricuspid regurgitation. IVC was significantly dilated. Right ventricular systolic pressure of of 55 mm Hg Hemoglobin: 6.7 - 8.6 - 8.1 - 7.6 - 7.9 - 7.7 - 7.8 - 7.8 - 7.6 - 7.5 - 7.1 - 7.0 - 8.5 - 8.2 - 7.6 - 7.7 - 7.5 - 7.1 - 7.0 - 6.8 - 7.9 - 7.6 - 7.8 - 7.6 - 7.5 - 7.4 - 7.5 - 7.2 - 7.2 Creatinine: 3.29 - 2.63 - 2.77 - 2.59 - 2.13 - 1.98 - 1.98 - 2.47- 2.98 - 3.36 - 3.56 - 3.83 - 4.12 - 4.27 - 4.67 - 4.54 - 2.92 - 2.91 - 2.98 - 2.06 - 2.36 - 2.49 - 1.96 - 2.34 - 1.92 - 2.25 - 1.81 - 2.03 - 1.61 Potassium: 3.9 - 3.4 - 3.8 - 3.3 - 3.4 - 3.9 - 3.5 - 3.5 - 3.3 - 3.4 - 3.7 - 3.8 - 4.0 - 4.3 - 4.0 - 3.6 - 3.3 - 3.5 - 3.9 - 3.9 - 4.0 - 3.9 - 3.7 - 3.3 - 2.7 - 3.8 - 3.8 - 3.7 - 3.7 - 3.3 Troponin (high sensitive): 32 - 31 - 34 TSH: 0.17 - 0.15 T3: 0.40 (low) T4: 5.7 Free T4: 1.27 Free T3: 1.55 (low) Urine and Aspirate culture: ESBL E-coli Chest x-ray revealed: IMPRESSION: Cardiomegaly. Repeat chest x-ray revealed: IMPRESSION: 1. Cardiomegaly with increased interstitial prominence suggestive of CHF exacerbation. 2. Pulmonary arterial hypertension. Repeat chest x-ray revealed: IMPRESSION: Cardiomegaly with mild pulmonary congestion. . Repeat chest x-ray revealed: IMPRESSION: Cardiomegaly with pulmonary congestion and edema. Superimposed pneumonia cannot be excluded. Repeat chest x-ray revealed: IMPRESSION: Worsening right lower lung airspace disease. Suggestion of small bilateral pleural effusions. Repeat chest xray revealed: IMPRESSION: No significant interval change Repeat chest xry revealed: IMPRESSION: 1. Right internal jugular hemodialysis c atheter in place with tip at the cavoatrial junction. 2. Right internal jugular catheter in place unchanged 3. Findings suggest worsening airspace disease in probable congestive failure or volume overload. Repeat chest xry revealed: IMPRESSION: Similar lung aeration. Small bilateral pleural effusion. Cardiomegaly. Repeat chest xry revealed: IMPRESSION: Interval placement of left PICC with tip projecting over the superior vena cava. Otherwise no significant change compared to prior exam. Abdominal ultrasound revealed: IMPRESSION: Small left hydronephrosis Renal scan revealed: IMPRESSION: Bilateral renal obstruction is present which is not response to Lasix administration suggesting that the kidney may be minimally functional. Abdomen and pelvic CT scan revealed: IMPRESSION: Moderate left hydroureteronephrosis. Suggestion of possible small abscess formation in the left hemipelvis associated with the sigmoid colon measuring 5.7 cm. This may represent site of ureteral obstruction. Clinical correlation advised. Examination is limited secondary to lack of intravenous and oral contrast administration. Abdomen and pelvis CT revealed: IMPRESSION: Sigmoid colonic diverticulitis with an adjacent 6 cm fluid collection with gas, could be an abscess. Probable fistula of the sigmoid to the fluid collection, and possibly with the urinary bladder, which is decompressed with a Tijerina. Possible trace left hydronephrosis with perinephric fat stranding. Repeat CT of abdomen and pelvis revealed: IMPRESSION: Small to moderate bilateral pleural effusions and associated compressive atelectasis / con solidation. Left lower quadrant pelvic drain in satisfactory position with significant interval decrease in size of abscess currently measuring 2.2 cm, previously 5.[address] guided abscess drainage: IMPRESSION: CT guided placement of 8 yi pigtail drain into a left hemipelvic abscess with 30 mL purulent fluid aspirated. PLAN: Routine tube care. Renal ultrasound revealed: IMPRESSION: Unremarkable renal ultrasound without hydronephrosis seen. EKG revealed atrial fibrillation with RVR Tele reveals atrial fibrillation with RVR Echocardiogram revealed: Left ventricle: Mild concentric left ventricular hypertrophy was seen. LVEF was around 50%. Right ventricle was mildly dilated with reduced systolic function. Both atria were dilated. Aortic valve was not well visualized. There was no aortic insufficiency/stenosis. There was mild mitral regurgitation. There was [id number] tricuspid regurgitation. Pulmonary valve was not well visualized. Right ventricular systolic pressure was assessed at 50 mm Hg. IVC was dilated. There was no pericardial effusion. Patient is a 74-year-old female with known history of diastolic heart failure with type 2 pulmonary hypertension who presented with abdominal pain. He is admitted to ICU with septic shock. Did have thrombocytopenia which slowly improved. Was significantly anemic and was transfused PRBC. There has been question about pelvic abscess and the patient is on antibiotics. Patient is being followed by surgery/Urology/pulmonary/GI. It is of note that the patient does have history of significant alcohol abuse (drinks good amount of whiskey daily) which could contribute to to some component of the clinical picture. Does have baseline history of pulmonary hypertension. Usually is on some amount of diuretic (Bumex) as outpatient. Clinically, the patient does have dry mucosa and maybe behind fluids at the time of evaluation. Does have baseline poor functional capacity. Does have history of recent sepsis. s/p CT guided abscess drainage. Seen by Nephrology. Diuretics are on hold. TFT are in favor of subclinical thyroid problem. Still with poor kidney function. Nephrology suggested hemodialysis, patient is hesitant. Significant anemia, status post PRBC transfusion Thrombocytopenia, resolved Septic shock SCOT on CKD Hydronephrosis Pelvic abscess Transaminitis Acute on chronic diastolic heart failure Pulmonary Hypertension, type 2 Alcohol abuse Morbid obesity Poor functional capacity Bed-bound at baseline Atrial fibrillation with RVR Hyperlipidemia Osteoarthritis Rheumatoid arthritis Peripheral vascular disease Abdominal abscess? s/p CT guided abscess drainage s/p PRBC transfusion Cardiac suggestion for management: Manage in [facility] Follow-up electrolytes and kidney function tests and correct abnormalities Full anticoagulation (on Eliquis presently), long-term On Midodrine Started on HD On oral amiodarone Evaluation and management of sepsis/infection as per primary team Evaluation and management of alcohol abuse/prevention of withdrawal as per primary team Evaluation and management of pelvic abscess/hydronephrosis as per primary team/surgery/Urology Further evaluation and management depends on the above and clinical course A total of 75 minutes was spent reviewing the patient record, examining the patient, making a diagnostic and therapeutic plan, discussing this plan with medical personnel, following up on diagnostic studies and following the patient for clinical stability excluding any and all procedures. At least 50% of this time was spent in direct, [id number] contact. Thank you for allowing me to participate in this patient's care. Further recommendations will depend on patient's clinical course. Please do not hesitate to contact me if you have any questions or concerns. This medical document was created using electronic medical record system with MModal computerized dictation system. Although this document has been carefully reviewed, there may still be some phonetic and typographical errors. These areas are purely typographical due to the imperfection of the software programs, and do not reflect any compromise in the patient's medical care. Dietary Evaluation Review Comments: Renal Specific 60g CCHO-60 Cardiac Diet d/t SCOT over CKD and low GFR Expected Outcomes/Goals: less uremic symptoms, better weight management Plan discussed with: Patient (Patient and Primary RN ) CC Plasma Assessment Blood Product Administration S: [id number] CHRISTOFER ARMANDO [employer] Apr 15, 2025 07:12
[2025-04-15 07:26] LABS: Alkaline Phosphatase 103 U/L (46-116); Anion Gap 7 (5-15); BUN/Creatinine Ratio 19.9 (10.0-20.0); Calcium 9.5 mg/dL (8.7-10.4); Chloride 100 mmol/L (98-107); Magnesium 2.1 mg/dL (1.6-2.6); Sodium 139 mmol/L (136-145); Total Protein 6.0 g/dL (5.7-8.2)
[2025-04-15 07:28] LABS: Bilirubin, Total 0.9 mg/dL (0.2-1.0)
[2025-04-15 07:35] LABS: Alanine Aminotransferase < 9 U/L (7-40); Albumin 3.0 g/dL (3.2-4.8); Blood Urea Nitrogen 32 mg/dL (9-23); Carbon Dioxide 32 mmol/L (20-31); Glucose 119 mg/dL (74-106); Potassium 3.3 mmol/L (3.5-5.1)
[2025-04-15 07:45] LABS: Hematocrit 21.9 % (36.0-46.0); Hemoglobin 7.1 g/dL (12.2-16.2); Mean Corpuscular Hemoglobin 29.3 pg (28.0-32.0); Mean Corpuscular Volume 90.4 fL (80.0-100.0); Nucleated Red Blood Cells % 0.1 %
[2025-04-15] MEDS: POTASSIUM CHL 20MEQ/100ML 100 ML IV ONE (10:11)
[2025-04-15] MEDS: POTASSIUM PHOSPHATE 22 MEQ in SODIUM CHL 0.9% 100 ML IV ONE (12:34)
--- NOTE | 2025-04-15 13:04 | DVHPN2 ---
Progress Note - Dictate Date Seen: Apr 15, 2025 Has the PT tested + for MRSA If YES, has PT been informed?: No Medical Necessity Reason Pt with a Central, PICC or Fol: Yes The following are medically ne: Tijerina Catheter Reason for tijerina catheter: Strict I&O vital signs Vital Sign Date Time Temp Pulse Resp B/P (MAP) Pulse Ox O2 Delivery O2 Flow Rate FiO2 04/15/25 12:45 94 14 102/42 (62) 98 04/15/25 12:15 Nasal Cannula* 3 32 04/15/25 12:00 97.8 97.8 Total Intake and Output 04/14/25 04/14/25 04/15/25 15:00 23:00 07:00 Intake Total 694.00 ml 616.00 ml 502.00 ml Output Total 900 ml 775 ml Balance 694.00 ml -284.00 ml -273.00 ml medications Current Medications Medications Dose Ordered Sig/Sravan Route Start Time Stop Time Status Last Admin Dose Admin Acetaminophen/ Hydrocodone Bitart 1 tab Q4HP PRN PO 03/20/25 12:15 04/11/25 23:13 1 TAB Ondansetron HCl 4 mg Q4HP PRN IV 03/20/25 12:15 03/26/25 08:18 4 MG Docusate Sodium 100 mg BIDPRN PRN PO 03/20/25 12:15 Acetaminophen 650 mg Q6HP PRN PO 03/20/25 12:15 03/28/25 10:59 650 MG Nitroglycerin 0.4 mg Q5MINP PRN SL 03/20/25 12:15 03/25/25 09:26 0.4 MG Morphine Sulfate 2 mg Q30M PRN IV 03/20/25 12:15 03/25/25 09:43 2 MG Allopurinol 100 mg DAILY PO 03/21/25 10:00 04/15/25 10:05 100 MG Apixaban 2.5 mg BID PO 03/20/25 22:00 04/15/25 10:05 2.5 MG Cilostazol 100 mg BID PO 03/20/25 22:00 04/15/25 10:05 100 MG Patient Own Medication 1 tab DAILY PO 03/21/25 10:00 UNV Patient Own Medication 1 tab DAILY PO 03/21/25 10:00 UNV Gabapentin 300 mg DAILY PO 03/21/25 10:00 04/15/25 10:05 300 MG Diphenhydramine HCl 50 mg [id number] PRN PO 03/21/25 16:45 04/15/25 00:55 50 MG Patient Own Medication 1 tab BID PO 03/21/25 22:00 04/15/25 10:12 1 TAB Throat Lozenges 1 liv Q2HP PRN MT 03/23/25 04:00 03/23/25 14:52 1 LIV Pantoprazole Sodium 40 mg DAILY IV 03/26/25 10:00 04/15/25 10:04 40 MG Magnesium Oxide 400 mg DAILY PO 03/27/25 10:00 04/15/25 10:05 400 MG Ertapenem 0.5 gm DAILY IM 03/27/25 11:15 Cancel Diagnostic Test (Pha) 1 strip Q6HR 03/27/25 18:00 04/15/25 12:33 1 STRIP Insulin Human Regular FOLLOW SLIDING SCALE Q6HR SC 03/27/25 18:00 04/15/25 12:44 2 UNITS Dextrose 50 ml UD IV 03/27/25 12:30 Norepinephrine Bitartrate 250 ml @ 0.938 mls/ hr Q24H IV 03/28/25 09:15 04/14/25 11:04 3.75 MLS/HR Amiodarone HCl 200 mg Q12HR PO 03/29/25 10:00 04/15/25 10:05 200 MG Nystatin 1 applic DAILY TOP 04/01/25 10:00 04/15/25 10:15 1 APPLIC Multivit/Ca Carb/ B Cmplx/FA/Prenat 1 tab DAILY PO 04/03/25 10:00 04/15/25 10:05 1 TAB Ferrous Sulfate 325 mg BIDWM PO 04/03/25 18:00 04/15/25 08:09 325 MG Midodrine 10 mg TID@0600,1200,1800 PO 04/04/25 12:00 04/15/25 12:33 10 MG Albuterol 2.5 mg Q4HR NEB 04/06/25 14:00 04/15/25 09:41 2.5 MG Ipratropium [place] 0.5 mg Q4HR NEB 04/06/25 14:00 04/15/25 09:41 0.5 MG Ertapenem 1 gm/ Sodium Chloride 50 ml @ 100 mls/hr DAILY IV 04/08/25 14:00 04/15/25 10:11 100 MLS/HR Bumetanide 3 mg BIDD IV 04/08/25 18:00 04/15/25 05:36 3 MG Amino Acids 0 ml @ 0 mls/hr PER PHARMACY IV 04/09/25 09:00 Levothyroxine Sodium 50 mcg DAILY IV 04/09/25 10:00 04/15/25 10:04 50 MCG Fat Emulsion Intravenous 200 ml/Sodium Chloride 60 meq/ Potassium Chloride 50 meq/ Potassium Acetate 10 meq/Potassium Phosphate 20 meq/ Magnesium Sulfate 10 meq/ Multivitamins 10 ml/Chromium/ Copper/Manganese/ Zinc 1 ml/Amino Acids/Dextrose 1,413.0455 ml @ 59 mls/hr [id number] IV 04/14/25 22:00 04/15/25 21:59 04/14/25 21:54 59 MLS/HR Fat Emulsion Intravenous 200 ml/Sodium Chloride 60 meq/ Potassium Chloride 60 meq/ Potassium Phosphate 30 meq/ Magnesium Sulfate 10 meq/ Multivitamins 10 ml/Chromium/ Copper/Manganese/ Zinc 1 ml/Amino Acids/Dextrose 1,515.3182 ml @ 63 mls/hr Q24H4M IV 04/15/25 22:00 04/16/25 21:59 laboratory and microbiology Laboratory Tests 04/15/25 04:51 Test 04/15/25 04:51 Range/Units Serum Glucose 119 H 74-106 mg/dL Assessment/Plan Impression SCOT hypoxemia COPD pneumonia left hydronephrosis septic shock pt seen and examined Events Low oxygen requirements On 3 liters nasal cannula Remains on Levophed drip at 1 mcg pt bed bound S/p percutaneous drain placement Labs and imaging studies reviewed management Supplemental oxygen keep sats above 90% bronchodilators for copd HD per nephrology continue antibiotics f/u cultures pressors as needed for hemodynamic support gi and dvt proph Dietary Evaluation Review Comments: Renal Specific 60g CCHO-60 Cardiac Diet d/t SCOT over CKD and low GFR Expected Outcomes/Goals: less uremic symptoms, better weight management Plan discussed with: Patient CC Plasma Assessment Blood Product Administration S: [id number] MD Apr 15, 2025 13:04
--- NOTE | 2025-04-15 13:47 | DVHPN2 ---
Progress Note - Dictate Date Seen: Apr 15, 2025 Has the PT tested + for MRSA If YES, has PT been informed?: No Medical Necessity Reason Pt with a Central, PICC or Fol: Yes The following are medically ne: Tijerina Catheter Reason for tijerina catheter: Strict I&O Subjective no new symptoms vital signs Vital Sign Date Time Temp Pulse Resp B/P (MAP) Pulse Ox O2 Delivery O2 Flow Rate FiO2 04/15/25 13:43 89 15 98 04/15/25 13:38 86/39 04/15/25 13:37 Nasal Cannula 3.0 04/15/25 13:37 32 04/15/25 12:00 97.8 97.8 Total Intake and Output 04/14/25 04/14/25 04/15/25 15:00 23:00 07:00 Intake Total 694.00 ml 616.00 ml 502.00 ml Output Total 900 ml 775 ml Balance 694.00 ml -284.00 ml -273.00 ml medications Current Medications Medications Dose Ordered Sig/Sravan Route Start Time Stop Time Status Last Admin Dose Admin Acetaminophen/ Hydrocodone Bitart 1 tab Q4HP PRN PO 03/20/25 12:15 04/11/25 23:13 1 TAB Ondansetron HCl 4 mg Q4HP PRN IV 03/20/25 12:15 03/26/25 08:18 4 MG Docusate Sodium 100 mg BIDPRN PRN PO 03/20/25 12:15 Acetaminophen 650 mg Q6HP PRN PO 03/20/25 12:15 03/28/25 10:59 650 MG Nitroglycerin 0.4 mg Q5MINP PRN SL 03/20/25 12:15 03/25/25 09:26 0.4 MG Morphine Sulfate 2 mg Q30M PRN IV 03/20/25 12:15 03/25/25 09:43 2 MG Allopurinol 100 mg DAILY PO 03/21/25 10:00 04/15/25 10:05 100 MG Apixaban 2.5 mg BID PO 03/20/25 22:00 04/15/25 10:05 2.5 MG Cilostazol 100 mg BID PO 03/20/25 22:00 04/15/25 10:05 100 MG Patient Own Medication 1 tab DAILY PO 03/21/25 10:00 UNV Patient Own Medication 1 tab DAILY PO 03/21/25 10:00 UNV Gabapentin 300 mg DAILY PO 03/21/25 10:00 04/15/25 10:05 300 MG Diphenhydramine HCl 50 mg [id number] PRN PO 03/21/25 16:45 04/15/25 00:55 50 MG Patient Own Medication 1 tab BID PO 03/21/25 22:00 04/15/25 10:12 1 TAB Throat Lozenges 1 liv Q2HP PRN MT 03/23/25 04:00 03/23/25 14:52 1 LIV Pantoprazole Sodium 40 mg DAILY IV 03/26/25 10:00 04/15/25 10:04 40 MG Magnesium Oxide 400 mg DAILY PO 03/27/25 10:00 04/15/25 10:05 400 MG Ertapenem 0.5 gm DAILY IM 03/27/25 11:15 Cancel Diagnostic Test (Pha) 1 strip Q6HR 03/27/25 18:00 04/15/25 12:33 1 STRIP Insulin Human Regular FOLLOW SLIDING SCALE Q6HR SC 03/27/25 18:00 04/15/25 12:44 2 UNITS Dextrose 50 ml UD IV 03/27/25 12:30 Norepinephrine Bitartrate 250 ml @ 0.938 mls/ hr Q24H IV 03/28/25 09:15 04/15/25 13:38 1.875 MLS/HR Amiodarone HCl 200 mg Q12HR PO 03/29/25 10:00 04/15/25 10:05 200 MG Nystatin 1 applic DAILY TOP 04/01/25 10:00 04/15/25 10:15 1 APPLIC Multivit/Ca Carb/ B Cmplx/FA/Prenat 1 tab DAILY PO 04/03/25 10:00 04/15/25 10:05 1 TAB Ferrous Sulfate 325 mg BIDWM PO 04/03/25 18:00 04/15/25 08:09 325 MG Midodrine 10 mg TID@0600,1200,1800 PO 04/04/25 12:00 04/15/25 12:33 10 MG Albuterol 2.5 mg Q4HR NEB 04/06/25 14:00 04/15/25 13:37 2.5 MG Ipratropium [place] 0.5 mg Q4HR NEB 04/06/25 14:00 04/15/25 13:37 0.5 MG Ertapenem 1 gm/ Sodium Chloride 50 ml @ 100 mls/hr DAILY IV 04/08/25 14:00 04/15/25 10:11 100 MLS/HR Bumetanide 3 mg BIDD IV 04/08/25 18:00 04/15/25 05:36 3 MG Amino Acids 0 ml @ 0 mls/hr PER PHARMACY IV 04/09/25 09:00 Levothyroxine Sodium 50 mcg DAILY IV 04/09/25 10:00 04/15/25 10:04 50 MCG Fat Emulsion Intravenous 200 ml/Sodium Chloride 60 meq/ Potassium Chloride 50 meq/ Potassium Acetate 10 meq/Potassium Phosphate 20 meq/ Magnesium Sulfate 10 meq/ Multivitamins 10 ml/Chromium/ Copper/Manganese/ Zinc 1 ml/Amino Acids/Dextrose 1,413.0455 ml @ 59 mls/hr [id number] IV 04/14/25 22:00 04/15/25 21:59 04/14/25 21:54 59 MLS/HR Fat Emulsion Intravenous 200 ml/Sodium Chloride 60 meq/ Potassium Chloride 60 meq/ Potassium Phosphate 30 meq/ Magnesium Sulfate 10 meq/ Multivitamins 10 ml/Chromium/ Copper/Manganese/ Zinc 1 ml/Amino Acids/Dextrose 1,515.3182 ml @ 63 mls/hr Q24H4M IV 04/15/25 22:00 04/16/25 21:59 objective HEENT: No evidence of JVD, no oral ulcers. Pulmonary: Crackles on auscultation bilaterally Cardiovascular S1-S2, no S3 or S4 Abdomen: Bowel sounds positive, soft no rebound tenderness Skin: No rash Neurological: Alert, oriented, no focal weakness Extremities: 2+ lower extremity edema pitting Right upper chest CVC in place. laboratory and microbiology Laboratory Tests 04/15/25 04:51 Test 04/15/25 04:51 Range/Units Serum Glucose 119 H 74-106 mg/dL Assessment/Plan Assessment: Acute kidney injury superimposed on CKD 4 on intermittent HD Sepsis, urine culture: E coli and Klebsiella both of which are ESBL . Wound culture with E coli ESBL Pelvic abscess Status post drainage of left pelvic abscess Left hydronephrosis which has a resolved Acute on chronic diastolic heart failure Anemia status post transfusion of PRBC Pulmonary hypertension Atrial fibrillation Bed-bound patient Chronic alcoholism in remission, last alcoholic beverage three months ago. Hypokalemia Recommendation/plan s/p HD Wednesday Next HD on Wednesday Hemodialysis to continue on TTS schedule Continue Bumex b.i.d. still makes urine manager party to arrange chair time, we will monitor for renal recovery within the next 90 days Fluid restriction less than 1 L per day, renal diet Midodrine 3 times a day and during dialysis Overall long-term prognosis is guarded Dietary Evaluation Review Comments: Renal Specific 60g CCHO-60 Cardiac Diet d/t SCOT over CKD and low GFR Expected Outcomes/Goals: less uremic symptoms, better weight management Plan discussed with: Patient, Other CC Plasma Assessment Blood Product Administration S: [id number] AVELINO DUNLAP MD Apr 15, 2025 13:47
[2025-04-15] MEDS: [UNRECOGNIZED DRUG - OTHER] IV NR (22:00)
[2025-04-15] MEDS: SODIUM CHLORIDE IV NR (22:00)
[2025-04-15] MEDS: POTASSIUM CHLORIDE IV NR (22:00)
[2025-04-15] MEDS: FAT EMULSION IV NR (22:00)
[2025-04-16] VITALS (104 sets, daily range): BP systolic 85–133; BP diastolic 15–71; PULSE 86–112; RESP 12–25; TEMP 98–99.1; O2SAT 86–100
[2025-04-16 07:10] LABS: Hematocrit 23.1 % (36.0-46.0); Hemoglobin 7.9 g/dL (12.2-16.2); Mean Corpuscular Hemoglobin 31.1 pg (28.0-32.0); Mean Corpuscular Volume 90.4 fL (80.0-100.0); Nucleated Red Blood Cells % 0.0 %
[2025-04-16 07:24] LABS: Albumin 3.2 g/dL (3.2-4.8); Alkaline Phosphatase 108 U/L (46-116); Anion Gap 9 (5-15); BUN/Creatinine Ratio 23.1 (10.0-20.0); Calcium 9.8 mg/dL (8.7-10.4); Chloride 99 mmol/L (98-107); Magnesium 2.2 mg/dL (1.6-2.6); Potassium 3.7 mmol/L (3.5-5.1); Sodium 139 mmol/L (136-145); Total Protein 6.5 g/dL (5.7-8.2); Triglycerides 107 mg/dL (< 150)
[2025-04-16 07:25] LABS: Bilirubin, Total 0.8 mg/dL (0.2-1.0)
[2025-04-16 07:30] LABS: Blood Urea Nitrogen 42 mg/dL (9-23); Carbon Dioxide 31 mmol/L (20-31); Glucose 129 mg/dL (74-106)
[2025-04-16 07:31] LABS: Alanine Aminotransferase < 9 U/L (7-40)
--- NOTE | 2025-04-16 08:23 | DVHPN2 ---
Progress Note - Dictate Date Seen: Apr 16, 2025 Has the PT tested + for MRSA If YES, has PT been informed?: No Medical Necessity Reason Pt with a Central, PICC or Fol: Yes The following are medically ne: Tijerina Catheter Reason for tijerina catheter: Strict I&O vital signs Vital Sign Date Time Temp Pulse Resp B/P (MAP) Pulse Ox O2 Delivery O2 Flow Rate FiO2 04/16/25 07:15 103 17 116/47 (70) 98 04/16/25 06:07 Nasal Cannula* 4 36 04/16/25 04:00 98.6 98.6 Total Intake and Output 04/15/25 04/15/25 04/16/25 15:00 23:00 07:00 Intake Total 636.065 ml 1115.002 ml 773.816 ml Output Total 625 ml 1000 ml Balance 636.065 ml 490.002 ml -226.184 ml medications Current Medications Medications Dose Ordered Sig/Sravan Route Start Time Stop Time Status Last Admin Dose Admin Acetaminophen/ Hydrocodone Bitart 1 tab Q4HP PRN PO 03/20/25 12:15 04/11/25 23:13 1 TAB Ondansetron HCl 4 mg Q4HP PRN IV 03/20/25 12:15 03/26/25 08:18 4 MG Docusate Sodium 100 mg BIDPRN PRN PO 03/20/25 12:15 Acetaminophen 650 mg Q6HP PRN PO 03/20/25 12:15 04/16/25 06:22 650 MG Nitroglycerin 0.4 mg Q5MINP PRN SL 03/20/25 12:15 03/25/25 09:26 0.4 MG Morphine Sulfate 2 mg Q30M PRN IV 03/20/25 12:15 03/25/25 09:43 2 MG Allopurinol 100 mg DAILY PO 03/21/25 10:00 04/15/25 10:05 100 MG Apixaban 2.5 mg BID PO 03/20/25 22:00 04/15/25 23:35 2.5 MG Cilostazol 100 mg BID PO 03/20/25 22:00 04/15/25 23:34 100 MG Patient Own Medication 1 tab DAILY PO 03/21/25 10:00 UNV Patient Own Medication 1 tab DAILY PO 03/21/25 10:00 UNV Gabapentin 300 mg DAILY PO 03/21/25 10:00 04/15/25 10:05 300 MG Diphenhydramine HCl 50 mg [id number] PRN PO 03/21/25 16:45 04/16/25 06:43 50 MG Patient Own Medication 1 tab BID PO 03/21/25 22:00 04/15/25 22:00 1 TAB Throat Lozenges 1 liv Q2HP PRN MT 03/23/25 04:00 03/23/25 14:52 1 LIV Pantoprazole Sodium 40 mg DAILY IV 03/26/25 10:00 04/15/25 10:04 40 MG Magnesium Oxide 400 mg DAILY PO 03/27/25 10:00 04/15/25 10:05 400 MG Ertapenem 0.5 gm DAILY IM 03/27/25 11:15 Cancel Diagnostic Test (Pha) 1 strip Q6HR 03/27/25 18:00 04/16/25 06:00 1 STRIP Insulin Human Regular FOLLOW SLIDING SCALE Q6HR SC 03/27/25 18:00 04/16/25 06:50 2 UNITS Dextrose 50 ml UD IV 03/27/25 12:30 Norepinephrine Bitartrate 250 ml @ 0.938 mls/ hr Q24H IV 03/28/25 09:15 04/15/25 13:38 1.875 MLS/HR Amiodarone HCl 200 mg Q12HR PO 03/29/25 10:00 04/15/25 23:34 200 MG Nystatin 1 applic DAILY TOP 04/01/25 10:00 04/15/25 10:15 1 APPLIC Multivit/Ca Carb/ B Cmplx/FA/Prenat 1 tab DAILY PO 04/03/25 10:00 04/15/25 10:05 1 TAB Ferrous Sulfate 325 mg BIDWM PO 04/03/25 18:00 04/15/25 17:37 325 MG Midodrine 10 mg TID@0600,1200,1800 PO 04/04/25 12:00 04/16/25 06:22 10 MG Albuterol 2.5 mg Q4HR NEB 04/06/25 14:00 04/16/25 06:07 2.5 MG Ipratropium [place] 0.5 mg Q4HR NEB 04/06/25 14:00 04/16/25 06:07 0.5 MG Ertapenem 1 gm/ Sodium Chloride 50 ml @ 100 mls/hr DAILY IV 04/08/25 14:00 04/15/25 10:11 100 MLS/HR Bumetanide 3 mg BIDD IV 04/08/25 18:00 04/16/25 06:21 3 MG Amino Acids 0 ml @ 0 mls/hr PER PHARMACY IV 04/09/25 09:00 Levothyroxine Sodium 50 mcg DAILY IV 04/09/25 10:00 04/15/25 10:04 50 MCG Fat Emulsion Intravenous 200 ml/Sodium Chloride 60 meq/ Potassium Chloride 60 meq/ Potassium Phosphate 30 meq/ Magnesium Sulfate 10 meq/ Multivitamins 10 ml/Chromium/ Copper/Manganese/ Zinc 1 ml/Amino Acids/Dextrose 1,515.3182 ml @ 63 mls/hr Q24H4M IV 04/15/25 22:00 04/16/25 21:59 04/15/25 22:00 63 MLS/HR laboratory and microbiology Laboratory Tests 04/16/25 05:00 Test 04/16/25 05:00 Range/Units Serum Glucose 129 H 74-106 mg/dL Assessment/Plan Being managed in [facility]. NPO (concern for Diverticulitis) On Levophed Patient is a 74-year-old female who was admitted on March 20, 2025 for abdominal pain/nausea/vomiting. She is admitted to ICU for septic shock. On March 24, 2025, cardiology was involved for cardiac aspects of care. Patient is known to our practice from before and previous admissions. She is known to have significant alcohol abuse (drinks whiskey every day) and also history of pulmonary hypertension/type 2 pulmonary hypertension, diastolic heart failure. Does have poor functional capacity and is bed-bound. Is significantly morbidly obese. Does have baseline history of atrial fibrillation and is on Eliquis as outpatient. Is found to have septic shock and possible pelvic abscess. Is seen by surgery/Urology/pulmonary/GI. Denies chest pains. Denies palpitations. Is noncompliant with medication and followups. While being managed in ICU was found to have atrial fibrillation with RVR. She mentions that she does go to nutrition manager regularly. She has had multiple surgeries in the bilateral feet. She also has history of COPD/asthma with chronic respiratory failure (on home oxygen). Morbidly obese. Not in acute distress. No JVD. Mucosa is dry. Mucosa is pink. No JVD. No carotid bruit. Not using accessory muscles of breathing. Scattered rhonchi in the lungs is heard. Cardiac: Irregular, no thrill. Abdomen is obese and soft. There is no gross hepatomegaly, but it is presence can not be ruled out (body habitus, morbidly obese). There is 3+ edema in bilateral lower extremities which extends to abdominal wall. Past medical history includes morbid obesity, atrial fibrillation (on Eliquis as outpatient), COPD/asthma with chronic respiratory failure on home oxygen, morbid obesity, hypertension, hyperlipidemia, chronic lymphedema, Diastolic heart failure with type 2 pulmonary hypertension, rheumatoid arthritis, osteoarthritis, peripheral vascular disease, CKD (stage IV), anemia, alcohol abuse, neuropathy, gout, old history of right and left foot fracture and their management, status post right knee replacement, status post , bed-bound at baseline and functional quadriplegia. Patient drinks whiskey daily. Goes to Nephrology regularly. Reportedly, there has been some concern about going to have fistula creation on preparation for dialysis? Echocardiogram of January 03 2024 (performed in [facility]) revealed ejection fraction of 60%, mild biatrial enlargement, mild MR/TR and right ventricular systolic pressure of 31 mm Hg. Echocardiogram of (performed in [facility]) revealed: EF of 50 to 55%, Dilated right ventricle with normal systolic function. Severe biatrial enlargement. Mild AI, mild to moderate MR, moderate TR and RVSP of 51 mmHg. Ascending Aorta was 3.7 cm. Echocardiogram of November 09, 2024 revealed ejection fraction of 72%, mild right ventricular enlargement, moderate biatrial enlargement, mild to moderate tricuspid regurgitation, mild mitral regurgitation, right ventricular systolic pressure 54 mm Hg Echocardiogram of February 23, 2025 revealed ejection fraction of around 50%, mild concentric left ventricular hypertrophy, right ventricular enlargement with preserved systolic function. Biatrial enlargement, mild aortic insufficiency, [id number] mitral regurgitation and tricuspid regurgitation. IVC was significantly dilated. Right ventricular systolic pressure of of 55 mm Hg Hemoglobin: 6.7 - 8.6 - 8.1 - 7.6 - 7.9 - 7.7 - 7.8 - 7.8 - 7.6 - 7.5 - 7.1 - 7.0 - 8.5 - 8.2 - 7.6 - 7.7 - 7.5 - 7.1 - 7.0 - 6.8 - 7.9 - 7.6 - 7.8 - 7.6 - 7.5 - 7.4 - 7.5 - 7.2 - 7.1 - 7.9 Creatinine: 3.29 - 2.63 - 2.77 - 2.59 - 2.13 - 1.98 - 1.98 - 2.47- 2.98 - 3.36 - 3.56 - 3.83 - 4.12 - 4.27 - 4.67 - 4.54 - 2.92 - 2.91 - 2.98 - 2.06 - 2.36 - 2.49 - 1.96 - 2.34 - 1.92 - 2.25 - 1.81 - 2..03 - 1.61 - 1.82 Potassium: 3.9 - 3.4 - 3.8 - 3.3 - 3.4 - 3.9 - 3.5 - 3.5 - 3.3 - 3.4 - 3.7 - 3.8 - 4.0 - 4.3 - 4.0 - 3.6 - 3.3 - 3.5 - 3.9 - 3.9 - 4.0 - 3.9 - 3.7 - 3.3 - 2.7 - 3.8 - 3.8 - 3.7 - 3.7 - 3.3 - 3.7 Troponin (high sensitive): 32 - 31 - 34 TSH: 0.17 - 0.15 T3: 0.40 (low) T4: 5.7 Free T4: 1.27 Free T3: 1.55 (low) Urine and Aspirate culture: ESBL E-coli Chest x-ray revealed: IMPRESSION: Cardiomegaly. Repeat chest x-ray revealed: IMPRESSION: 1. Cardiomegaly with increased interstitial prominence suggestive of CHF exacerbation. 2. Pulmonary arterial hypertension. Repeat chest x-ray revealed: IMPRESSION: Cardiomegaly with mild pulmonary congestion. . Repeat chest x-ray revealed: IMPRESSION: Cardiomegaly with pulmonary congestion and edema. Superimposed pneumonia cannot be excluded. Repeat chest x-ray revealed: IMPRESSION: Worsening right lower lung airspace disease. Suggestion of small bilateral pleural effusions. Repeat chest xray revealed: IMPRESSION: No significant interval change Repeat chest xry revealed: IMPRESSION: 1. Right internal jugular hemodialysis catheter in place with tip at the cavoatrial junction. 2. Right internal jugular catheter in place unchanged 3. Findings suggest worsening airspace disease in probable congestive failure or volume overload. Repeat chest xry revealed: IMPRESSION: Similar lung aeration. Small bilateral pleural effusion. Cardiomegaly. Repeat chest xry revealed: IMPRESSION: Interval placement of left PICC with tip projecting over the superior vena cava. Otherwise no significant change compared to prior exam. Abdominal ultrasound revealed: IMPRESSION: Small left hydronephrosis Renal scan revealed: IMPRESSION: Bilateral renal obstruction is present which is not response to Lasix administration suggesting that the kidney may be minimally functional. Abdomen and pelvic CT scan revealed: IMPRESSION: Moderate left hydroureteronephrosis. Suggestion of possible small abscess formation in the left hemipelvis associated with the sigmoid colon measuring 5.7 cm. This may represent site of ureteral obstruction. Clinical correlation advised. Examination is limited secondary to lack of intravenous and oral contrast administration. Abdomen and pelvis CT revealed: IMPRESSION: Sigmoid colonic diverticulitis with an adjacent 6 cm fluid collection with gas, could be an abscess. Probable fistula of the sigmoid to the fluid collection, and possibly with the urinary bladder, which is decompressed with a Tijerina. Possible trace left hydronephrosis with perinephric fat stranding. Repeat CT of abdomen and pelvis revealed: IMPRESSION: Small to moderate bilateral pleural effusions and associated compressive atelectasis / consolidation. Left lower quadrant pelvic drain in satisfactory position with significant interval decrease in size of abscess currently measuring 2.2 cm, previously 5.[address] guided abscess drainage: IMPRESSION: CT guided placement of 8 [place] pigtail drain into a left hemipelvic abscess with 30 mL purulent fluid aspirated. PLAN: Routine tube care. Renal ultrasound revealed: IMPRESSION: Unremarkable renal ultrasound without hydronephrosis seen. EKG revealed atrial fibrillation with RVR Tele reveals atrial fibrillation with RVR Echocardiogram revealed: Left ventricle: Mild concentric left ventricular hypertrophy was seen. LVEF was around 50%. Right ventricle was mildly dilated with reduced systolic function. Both atria were dilated. Aortic valve was not well visualized. There was no aortic insufficiency/stenosis. There was mild mitral regurgitation. There was [id number] tricuspid regurgitation. Pulmonary valve was not well visualized. Right ventricular systolic pressure was assessed at 50 mm Hg. IVC was dilated. There was no pericardial effusion. Patient is a 74-year-old female with known history of diastolic heart failure with type 2 pulmonary hypertension who presented with abdominal pain. He is admitted to ICU with septic shock. Did have thrombocytopenia which slowly improved. Was significantly anemic and was transfused PRBC. There has been question about pelvic abscess and the patient is on antibiotics. Patient is being followed by surgery/Urology/pulmonary/GI. It is of note that the patient does have history of significant alcohol abuse (drinks good amount of whiskey daily) which could contribute to to some component of the clinical picture. Does have baseline history of pulmonary hypertension. Usually is on some amount of diuretic (Bumex) as outpatient. Clinically, the patient does have dry mucosa and maybe behind fluids at the time of evaluation. Does have baseline poor functional capacity. Does have history of recent sepsis. s/p CT guided abscess drainage. Seen by Nephrology. Diuretics are on hold. TFT are in favor of subclinical thyroid problem. Still with poor kidney function. Nephrology suggested hemodialysis, patient is hesitant. Significant anemia, status post PRBC transfusion Thrombocytopenia, resolved Septic shock SCOT on CKD Hydronephrosis Pelvic abscess Transaminitis Acute on chronic diastolic heart failure Pulmonary Hypertension, type 2 Alcohol abuse Morbid obesity Poor functional capacity Bed-bound at baseline Atrial fibrillation with RVR Hyperlipidemia Osteoarthritis Rheumatoid arthritis Peripheral vascular disease Abdominal abscess? s/p CT guided abscess drainage s/p PRBC transfusion Cardiac suggestion for management: Manage in [place] Follow-up electrolytes and kidney function tests and correct abnormalities Full anticoagulation (on Eliquis presently), long-term On Midodrine Started on HD On oral amiodarone Evaluation and management of sepsis/infection as per primary team Evaluation and management of alcohol abuse/prevention of withdrawal as per primary team Evaluation and management of pelvic abscess/hydronephrosis as per primary team/surgery/Urology Further evaluation and management depends on the above and clinical course A total of 75 minutes was spent reviewing the patient record, examining the patient, making a diagnostic and therapeutic plan, discussing this plan with medical personnel, following up on diagnostic studies and following the patient for clinical stability excluding any and all procedures. At least 50% of this time was spent in direct, [id number] contact. Thank you for allowing me to participate in this patient's care. Further recommendations will depend on patient's clinical course. Please do not hesitate to contact me if you have any questions or concerns. This medical document was created using electronic medical record system with [employer] computerized dictation system. Although this document has been carefully reviewed, there may still be some phonetic and typographical errors. These areas are purely typographical due to the imperfection of the software programs, and do not reflect any compromise in the patient's medical care. Dietary Evaluation Review Comments: Renal Specific 60g CCHO-60 Cardiac Diet d/t SCOT over CKD and low GFR Expected Outcomes/Goals: less uremic symptoms, better weight management Plan discussed with: Patient, Other (nurse) CC Plasma Assessment Blood Product Administration S: [id number] AUSTIN ROMERO MD Apr 16, 2025 08:23
--- NOTE | 2025-04-16 09:09 | DVHPN2 ---
Subjective Denies any symptoms at this time Reviewed: Care Plan, H&P, Labs, Medications, Previous Orders, Radiology Changes from previous H/P or p: No Changes General: Per HPI Eyes: No Pain, No Vision change, No Conjunctivae inflammation, No Eyelid inflammation, No Other, No Redness ENT: No Ear pain, No Ear discharge, No Nose pain, No Nose discharge, No Nose congestion, No Mouth pain, No Mouth swelling, No Throat pain, No Throat swelling, No Other Cardiovascular: No Chest Pain, No Palpitations, No Orthopnea, No Paroxysmal Noc. Dyspnea, No Edema, No Lt Headedness, No Other Respiratory: No Cough, No Dry, No Shortness of breath, No SOB with excertion, No Wheezing, No Hemoptysis, No Pleuritic Pain, No Sputum, No Other Gastrointestinal: Nausea, Vomiting, Abdominal Pain Genitourinary: No Dysuria, No Frequency, No Incontinence, No Hematuria, No Retention, No Other Musculoskeletal: No other, No neck pain, No shoulder pain, No arm pain, No back pain, No hand pain, No leg pain, No foot pain Skin: No Rash, No Lesions, No Jaundice, No Bruising, No Other Objective Vitals Vital Signs Date Time Temp Pulse Resp B/P (MAP) Pulse Ox O2 Delivery O2 Flow Rate FiO2 04/16/25 07:15 103 17 116/47 (70) 98 04/16/25 06:07 Nasal Cannula* 4 36 04/16/25 04:00 98.6 98.6 Intake/Output Intake and Output 04/16/25 07:00 Intake Total 2524.883 ml Output Total 1625 ml Balance 899.883 ml Intake Oral 800 ml IV Total 1724.883 ml Output Urine Total 1625 ml General Appearance: Alert, Oriented X3, Cooperative, Other HEENT: Atraumatic, PERRLA Cardiovascular: Normal S1, Normal S2, Other Abdomen: Normal bowel sounds, Other Extremities: No edema, Normal pulses Neuro: Sensation intact, Cranial nerves 3-12 NL Skin: Dry, Intact Psych/Mental Status: Mental status NL, Mood NL Medications Current Medications Medications Dose Ordered Sig/Sravan Route Start Time Stop Time Status Last Admin Dose Admin Acetaminophen/ Hydrocodone Bitart 1 tab Q4HP PRN PO 03/20/25 12:15 04/11/25 23:13 1 TAB Ondansetron HCl 4 mg Q4HP PRN IV 03/20/25 12:15 03/26/25 08:18 4 MG Docusate Sodium 100 mg BIDPRN PRN PO 03/20/25 12:15 Acetaminophen 650 mg Q6HP PRN PO 03/20/25 12:15 04/16/25 06:22 650 MG Nitroglycerin 0.4 mg Q5MINP PRN SL 03/20/25 12:15 03/25/25 09:26 0.4 MG Morphine Sulfate 2 mg Q30M PRN IV 03/20/25 12:15 03/25/25 09:43 2 MG Allopurinol 100 mg DAILY PO 03/21/25 10:00 04/15/25 10:05 100 MG Apixaban 2.5 mg BID PO 03/20/25 22:00 04/15/25 23:35 2.5 MG Cilostazol 100 mg BID PO 03/20/25 22:00 04/15/25 23:34 100 MG Patient Own Medication 1 tab DAILY PO 03/21/25 10:00 UNV Patient Own Medication 1 tab DAILY PO 03/21/25 10:00 UNV Gabapentin 300 mg DAILY PO 03/21/25 10:00 04/15/25 10:05 300 MG Diphenhydramine HCl 50 mg [id number] PRN PO 03/21/25 16:45 04/16/25 06:43 50 MG Patient Own Medication 1 tab BID PO 03/21/25 22:00 04/15/25 22:00 1 TAB Throat Lozenges 1 liv Q2HP PRN MT 03/23/25 04:00 03/23/25 14:52 1 LIV Pantoprazole Sodium 40 mg DAILY IV 03/26/25 10:00 04/15/25 10:04 40 MG Magnesium Oxide 400 mg DAILY PO 03/27/25 10:00 04/15/25 10:05 400 MG Ertapenem 0.5 gm DAILY IM 03/27/25 11:15 Cancel Diagnostic Test (Pha) 1 strip Q6HR 03/27/25 18:00 04/16/25 06:00 1 STRIP Insulin Human Regular FOLLOW SLIDING SCALE Q6HR SC 03/27/25 18:00 04/16/25 06:50 2 UNITS Dextrose 50 ml UD IV 03/27/25 12:30 Norepinephrine Bitartrate 250 ml @ 0.938 mls/ hr Q24H IV 03/28/25 09:15 04/15/25 13:38 1.875 MLS/HR Amiodarone HCl 200 mg Q12HR PO 03/29/25 10:00 04/15/25 23:34 200 MG Nystatin 1 applic DAILY TOP 04/01/25 10:00 04/15/25 10:15 1 APPLIC Multivit/Ca Carb/ B Cmplx/FA/Prenat 1 tab DAILY PO 04/03/25 10:00 04/15/25 10:05 1 TAB Ferrous Sulfate 325 mg BIDWM PO 04/03/25 18:00 04/15/25 17:37 325 MG Midodrine 10 mg TID@0600,1200,1800 PO 04/04/25 12:00 04/16/25 06:22 10 MG Albuterol 2.5 mg Q4HR NEB 04/06/25 14:00 04/16/25 06:07 2.5 MG Ipratropium [place] 0.5 mg Q4HR NEB 04/06/25 14:00 04/16/25 06:07 0.5 MG Ertapenem 1 gm/ Sodium Chloride 50 ml @ 100 mls/hr DAILY IV 04/08/25 14:00 04/15/25 10:11 100 MLS/HR Bumetanide 3 mg BIDD IV 04/08/25 18:00 04/16/25 06:21 3 MG Amino Acids 0 ml @ 0 mls/hr PER PHARMACY IV 04/09/25 09:00 Levothyroxine Sodium 50 mcg DAILY IV 04/09/25 10:00 04/15/25 10:04 50 MCG Fat Emulsion Intravenous 200 ml/Sodium Chloride 60 meq/ Potassium Chloride 60 meq/ Potassium Phosphate 30 meq/ Magnesium Sulfate 10 meq/ Multivitamins 10 ml/Chromium/ Copper/Manganese/ Zinc 1 ml/Amino Acids/Dextrose 1,515.3182 ml @ 63 mls/hr Q24H4M IV 04/15/25 22:00 04/16/25 21:59 04/15/25 22:00 63 MLS/HR Laboratory Results Laboratory Tests 04/16/25 05:00 Chemistry Test 04/16/25 05:00 Albumin 3.2 g/dL (3.2-4.8) Calcium Level 9.8 mg/dL (8.7-10.4) Magnesium Level 2.2 mg/dL (1.6-2.6) Phosphorus Level 2.9 mg/dL (2.4-5.1) Total Protein 6.5 g/dL (5.7-8.2) Lipid panel Test 04/16/25 05:00 Triglycerides Level 107 mg/dL (< 150) LFT Test 04/16/25 05:00 Alanine Aminotransferase (ALT) < 9 U/L (7-40) Alkaline Phosphatase 108 U/L (46-116) Aspartate Amino Transferase (AST) 12 U/L (13-40) L Total Bilirubin 0.8 mg/dL (0.2-1.0) Urinalysis Test 03/20/25 09:34 Urine Color Colorless (Yellow) Urine Clarity Turbid (Clear) H Urine pH 5.0 (5.0-9.0) Urine Specific [place] 1.015 (1.001-1.035) Urine Protein Negative (Negative) Urine Ketones Negative (Negative) Urine Blood Negative /uL (Negative) Urine Nitrite Negative (Negative) Urine Bilirubin Negative (Negative) Urine Urobilinogen Normal mg/dL (Negative) Urine Leukocyte Esterase 3+ /uL (Negative) Urine RBC 1 /hpf (0 - 4) Urine Microscopic WBC 255 /HPF (0-5) H Urine Squamous Epithelial Cells Few /hpf (<5) Urine Bacteria Few /hpf (None Seen) H Urine Glucose Normal mg/dL (Normal) Microbiology Microbiology Date/Time Source Procedure Growth Status 03/26/25 15:00 Aspirate Gram Stain - Final Complete 03/26/25 15:00 Body Fluid Culture - Final Escherichia coli - ESBL Enterobacter cloacae Proteus mirabilis Complete 03/23/25 04:30 Throat Nose/Throat Culture - Final Complete 03/21/25 18:00 Urine - Catheterized Urine Culture - Final Escherichia coli - ESBL Klebsiella pneumoniae - ESBL Complete 03/20/25 21:52 Nose MRSA Screen - Final Complete Labs and/or images reviewed: Labs reviewed by me, Image(s) reviewed by me Assessment/Plan Assessment/Plan Impression: -septic shock -diverticular abscess -AFib with RVR -morbid obesity -obstructive uropathy -CKD stage 4 -acute kidney injury, vasomotor nephropathy -acute on chronic systolic and diastolic heart failure -bed-bound status -complicated cystitis with ESBL in the urine. Plan: Events: Continues to be on Levophed drip at 2 micrograms/minute. Patient denies any other symptoms. Currently awaiting for transfer to [facility] -social service consultation to transfer to [facility] -norepinephrine p.r.n. -continue midodrine -continue Invanz per ID recommendations -NPO except meds. Continue TPN -continue anticoagulation with Eliquis -repeat labs in a.m. Critical care time spent with patient discussing and formulating plan of care: 40 minutes. This does not include time spent performing procedures. This medical document was created using an electronic medical record system with [employer] dictation system. Although this document has been carefully reviewed, there may still be some phonetic and typographical errors. These areas are purely typographical due to imperfections of the software programs, and do not reflect any compromise in the patient's medical care. Plan discussed with: Patient, Other (RN) My Orders Orders - GONZALO ASKEW NP Procedure Category Date Status Time Amino Acid PHA 04/15/25 In Process Infusion... W/Fat 22:00 Tpn Per Pharmacy EBONY 04/15/25 In Process 22:00 Date of Service: Apr 16, 2025 Billing Provider: GONZALO ASKEW NP Common Visit Codes: 80268-XWQMQPKC CARE 30-74 MIN Procedure Codes: 82032-RBAKOZAY SEDATION +15MIN GONZALO ASKEW NP Apr 16, 2025 09:09
--- NOTE | 2025-04-16 12:41 | DVHPN2 ---
Progress Note - Dictate Date Seen: Apr 16, 2025 Has the PT tested + for MRSA If YES, has PT been informed?: No Medical Necessity Reason Pt with a Central, PICC or Fol: Yes The following are medically ne: Tijerina Catheter Reason for tijerina catheter: Strict I&O vital signs Vital Sign Date Time Temp Pulse Resp B/P (MAP) Pulse Ox O2 Delivery O2 Flow Rate FiO2 04/16/25 12:00 103 04/16/25 12:00 18 96 Nasal Cannula* 2 28 04/16/25 07:30 99.1 04/16/25 07:15 116/47 (70) Total Intake and Output 04/15/25 04/15/25 04/16/25 15:00 23:00 07:00 Intake Total 636.065 ml 1115.002 ml 773.816 ml Output Total 625 ml 1000 ml Balance 636.065 ml 490.002 ml -226.184 ml medications Current Medications Medications Dose Ordered Sig/Sravan Route Start Time Stop Time Status Last Admin Dose Admin Acetaminophen/ Hydrocodone Bitart 1 tab Q4HP PRN PO 03/20/25 12:15 04/11/25 23:13 1 TAB Ondansetron HCl 4 mg Q4HP PRN IV 03/20/25 12:15 03/26/25 08:18 4 MG Docusate Sodium 100 mg BIDPRN PRN PO 03/20/25 12:15 Acetaminophen 650 mg Q6HP PRN PO 03/20/25 12:15 04/16/25 06:22 650 MG Nitroglycerin 0.4 mg Q5MINP PRN SL 03/20/25 12:15 03/25/25 09:26 0.4 MG Morphine Sulfate 2 mg Q30M PRN IV 03/20/25 12:15 03/25/25 09:43 2 MG Allopurinol 100 mg DAILY PO 03/21/25 10:00 04/16/25 09:47 100 MG Apixaban 2.5 mg BID PO 03/20/25 22:00 04/16/25 09:47 2.5 MG Cilostazol 100 mg BID PO 03/20/25 22:00 04/16/25 09:46 100 MG Patient Own Medication 1 tab DAILY PO 03/21/25 10:00 UNV Patient Own Medication 1 tab DAILY PO 03/21/25 10:00 UNV Gabapentin 300 mg DAILY PO 03/21/25 10:00 04/16/25 09:47 300 MG Diphenhydramine HCl 50 mg [id number] PRN PO 03/21/25 16:45 04/16/25 06:43 50 MG Patient Own Medication 1 tab BID PO 03/21/25 22:00 04/16/25 09:48 1 TAB Throat Lozenges 1 liv Q2HP PRN MT 03/23/25 04:00 03/23/25 14:52 1 LIV Pantoprazole Sodium 40 mg DAILY IV 03/26/25 10:00 04/16/25 09:49 40 MG Magnesium Oxide 400 mg DAILY PO 03/27/25 10:00 04/16/25 09:46 400 MG Ertapenem 0.5 gm DAILY IM 03/27/25 11:15 Cancel Diagnostic Test (Pha) 1 strip Q6HR 03/27/25 18:00 04/16/25 06:00 1 STRIP Insulin Human Regular FOLLOW SLIDING SCALE Q6HR SC 03/27/25 18:00 04/16/25 06:50 2 UNITS Dextrose 50 ml UD IV 03/27/25 12:30 Norepinephrine Bitartrate 250 ml @ 0.938 mls/ hr Q24H IV 03/28/25 09:15 04/15/25 13:38 1.875 MLS/HR Amiodarone HCl 200 mg Q12HR PO 03/29/25 10:00 04/16/25 09:47 200 MG Nystatin 1 applic DAILY TOP 04/01/25 10:00 04/16/25 09:48 1 APPLIC Multivit/Ca Carb/ B Cmplx/FA/Prenat 1 tab DAILY PO 04/03/25 10:00 04/16/25 09:46 1 TAB Ferrous Sulfate 325 mg BIDWM PO 04/03/25 18:00 04/16/25 09:47 325 MG Midodrine 10 mg TID@0600,1200,1800 PO 04/04/25 12:00 04/16/25 06:22 10 MG Albuterol 2.5 mg Q4HR NEB 04/06/25 14:00 04/16/25 11:08 2.5 MG Ipratropium [place] 0.5 mg Q4HR NEB 04/06/25 14:00 04/16/25 11:08 0.5 MG Ertapenem 1 gm/ Sodium Chloride 50 ml @ 100 mls/hr DAILY IV 04/08/25 14:00 04/15/25 10:11 100 MLS/HR Bumetanide 3 mg BIDD IV 04/08/25 18:00 04/16/25 06:21 3 MG Amino Acids 0 ml @ 0 mls/hr PER PHARMACY IV 04/09/25 09:00 Levothyroxine Sodium 50 mcg DAILY IV 04/09/25 10:00 04/16/25 09:49 50 MCG Fat Emulsion Intravenous 200 ml/Sodium Chloride 60 meq/ Potassium Chloride 60 meq/ Potassium Phosphate 30 meq/ Magnesium Sulfate 10 meq/ Multivitamins 10 ml/Chromium/ Copper/Manganese/ Zinc 1 ml/Amino Acids/Dextrose 1,515.3182 ml @ 63 mls/hr Q24H4M IV 04/15/25 22:00 04/16/25 21:59 04/15/25 22:00 63 MLS/HR Fat Emulsion Intravenous 200 ml/Sodium Chloride 60 meq/ Potassium Chloride 80 meq/ Potassium Phosphate 50 meq/ Magnesium Sulfate 10 meq/ Multivitamins 10 ml/Chromium/ Copper/Manganese/ Zinc 1 ml/Amino Acids/Dextrose 1,529.8636 ml @ 64 mls/hr [id number] IV 04/16/25 22:00 04/17/25 21:59 laboratory and microbiology Laboratory Tests 04/16/25 05:00 Test 04/16/25 05:00 Range/Units Serum Glucose 129 H 74-106 mg/dL Assessment/Plan Impression SCOT hypoxemia COPD pneumonia left hydronephrosis septic shock pt seen and examined Events Low oxygen requirements On 3 liters nasal cannula Remains on Levophed drip at 1 mcg pt bed bound prognosis very poor S/p percutaneous drain placement Labs and imaging studies reviewed management Supplemental oxygen keep sats above 90% bronchodilators for copd HD per nephrology continue antibiotics f/u cultures stress dose steroids pressors as needed for hemodynamic support gi and dvt proph Dietary Evaluation Review Comments: Renal Specific 60g CCHO-60 Cardiac Diet d/t SCOT over CKD and low GFR Expected Outcomes/Goals: less uremic symptoms, better weight management Plan discussed with: Patient CC Plasma Assessment Blood Product Administration S: [id number] MD Apr 16, 2025 12:41
--- NOTE | 2025-04-16 17:13 | DVHPN2 ---
Progress Note - Dictate Date Seen: Apr 16, 2025 Has the PT tested + for MRSA If YES, has PT been informed?: No Medical Necessity Reason Pt with a Central, PICC or Fol: Yes The following are medically ne: Tijerina Catheter Reason for tijerina catheter: Strict I&O Subjective No new complaints ; abdominal pain improved Currently NPO on IV TPN Patient is resting comfortably ; no sob Hemoglobin stable running low at 7.9 ; no GI bleeding Patient has history of chronic alcohol use been abstinence for about three months vital signs Vital Sign Date Time Temp Pulse Resp B/P (MAP) Pulse Ox O2 Delivery O2 Flow Rate FiO2 04/16/25 16:00 103 04/16/25 16:00 16 98 Nasal Cannula* 2 28 04/16/25 12:00 98.4 112/53 (72) 98.4 Total Intake and Output 04/15/25 04/15/25 04/16/25 15:00 23:00 07:00 Intake Total 636.065 ml 1115.002 ml 773.816 ml Output Total 625 ml 1000 ml Balance 636.065 ml 490.002 ml -226.184 ml medications Current Medications Medications Dose Ordered Sig/Sravan Route Start Time Stop Time Status Last Admin Dose Admin Acetaminophen/ Hydrocodone Bitart 1 tab Q4HP PRN PO 03/20/25 12:15 04/11/25 23:13 1 TAB Ondansetron HCl 4 mg Q4HP PRN IV 03/20/25 12:15 03/26/25 08:18 4 MG Docusate Sodium 100 mg BIDPRN PRN PO 03/20/25 12:15 Acetaminophen 650 mg Q6HP PRN PO 03/20/25 12:15 04/16/25 06:22 650 MG Nitroglycerin 0.4 mg Q5MINP PRN SL 03/20/25 12:15 03/25/25 09:26 0.4 MG Morphine Sulfate 2 mg Q30M PRN IV 03/20/25 12:15 03/25/25 09:43 2 MG Allopurinol 100 mg DAILY PO 03/21/25 10:00 04/16/25 09:47 100 MG Apixaban 2.5 mg BID PO 03/20/25 22:00 04/16/25 09:47 2.5 MG Cilostazol 100 mg BID PO 03/20/25 22:00 04/16/25 09:46 100 MG Patient Own Medication 1 tab DAILY PO 03/21/25 10:00 UNV Patient Own Medication 1 tab DAILY PO 03/21/25 10:00 UNV Gabapentin 300 mg DAILY PO 03/21/25 10:00 04/16/25 09:47 300 MG Diphenhydramine HCl 50 mg [id number] PRN PO 03/21/25 16:45 04/16/25 06:43 50 MG Patient Own Medication 1 tab BID PO 03/21/25 22:00 04/16/25 09:48 1 TAB Throat Lozenges 1 liv Q2HP PRN MT 03/23/25 04:00 03/23/25 14:52 1 LIV Pantoprazole Sodium 40 mg DAILY IV 03/26/25 10:00 04/16/25 09:49 40 MG Magnesium Oxide 400 mg DAILY PO 03/27/25 10:00 04/16/25 09:46 400 MG Ertapenem 0.5 gm DAILY IM 03/27/25 11:15 Cancel Diagnostic Test (Pha) 1 strip Q6HR 03/27/25 18:00 04/16/25 12:53 1 STRIP Insulin Human Regular FOLLOW SLIDING SCALE Q6HR SC 03/27/25 18:00 04/16/25 12:49 2 UNITS Dextrose 50 ml UD IV 03/27/25 12:30 Norepinephrine Bitartrate 250 ml @ 0.938 mls/ hr Q24H IV 03/28/25 09:15 04/15/25 13:38 1.875 MLS/HR Amiodarone HCl 200 mg Q12HR PO 03/29/25 10:00 04/16/25 09:47 200 MG Nystatin 1 applic DAILY TOP 04/01/25 10:00 04/16/25 09:48 1 APPLIC Multivit/Ca Carb/ B Cmplx/FA/Prenat 1 tab DAILY PO 04/03/25 10:00 04/16/25 09:46 1 TAB Ferrous Sulfate 325 mg BIDWM PO 04/03/25 18:00 04/16/25 09:47 325 MG Midodrine 10 mg TID@0600,1200,1800 PO 04/04/25 12:00 04/16/25 12:48 10 MG Albuterol 2.5 mg Q4HR NEB 04/06/25 14:00 04/16/25 14:36 2.5 MG Ipratropium [place] 0.5 mg Q4HR NEB 04/06/25 14:00 04/16/25 14:36 0.5 MG Ertapenem 1 gm/ Sodium Chloride 50 ml @ 100 mls/hr DAILY IV 04/08/25 14:00 04/16/25 12:48 100 MLS/HR Bumetanide 3 mg BIDD IV 04/08/25 18:00 04/16/25 06:21 3 MG Amino Acids 0 ml @ 0 mls/hr PER PHARMACY IV 04/09/25 09:00 Levothyroxine Sodium 50 mcg DAILY IV 04/09/25 10:00 04/16/25 09:49 50 MCG Fat Emulsion Intravenous 200 ml/Sodium Chloride 60 meq/ Potassium Chloride 60 meq/ Potassium Phosphate 30 meq/ Magnesium Sulfate 10 meq/ Multivitamins 10 ml/Chromium/ Copper/Manganese/ Zinc 1 ml/Amino Acids/Dextrose 1,515.3182 ml @ 63 mls/hr Q24H4M IV 04/15/25 22:00 04/16/25 21:59 04/15/25 22:00 63 MLS/HR Fat Emulsion Intravenous 200 ml/Sodium Chloride 60 meq/ Potassium Chloride 80 meq/ Potassium Phosphate 50 meq/ Magnesium Sulfate 10 meq/ Multivitamins 10 ml/Chromium/ Copper/Manganese/ Zinc 1 ml/Amino Acids/Dextrose 1,529.8636 ml @ 64 mls/hr [id number] IV 04/16/25 22:00 04/17/25 21:59 objective General examination- awake, alert HEENT- PEERLA, morbidly obese Cardiovascular- S1-S2 audible, rate and rhythm regular, no murmur Respiratory- CTAB, no wheeze or rhonchi Gastrointestinal-lower abdominal wall tenderness+, bowel sound+. Nondistended Musculoskeletal-no acute joint swelling or tenderness or redness Lower extremity- no leg edema Neurological- cranial nerves intact, no acute dysarthria or dysphagia laboratory and microbiology Laboratory Tests 04/16/25 05:00 Test 04/16/25 05:00 Range/Units Serum Glucose 129 H 74-106 mg/dL Problems(with codes): (1) Cardiac volume overload (2) Acute on chronic systolic (congestive) heart failure (3) Atrial fibrillation with RVR (4) Shortness of breath (5) Symptomatic anemia (6) E. coli UTI (urinary tract infection) (7) Generalized weakness (8) Pelvic abscess in female (9) Diverticulitis of intestine with abscess Prognosis Plan Patient is scheduled to be transferred to a [facility] in [place] Awaiting transportation Continue NPO and IV TPN Continue IV antibiotics Continue hemodialysis as required Consider repeat CT imaging in 1-2 weeks to re-evaluate pelvic abscess Dietary Evaluation Review Comments: Renal Specific 60g CCHO-60 Cardiac Diet d/t SCOT over CKD and low GFR Expected Outcomes/Goals: less uremic symptoms, better weight management Plan discussed with: Other (None) CC Plasma Assessment Blood Product Administration S: [id number] MAGALYS AQUINO MD Apr 16, 2025 17:13
--- NOTE | 2025-04-16 18:24 | DVHPN2 ---
Progress Note - Dictate Date Seen: Apr 16, 2025 Has the PT tested + for MRSA If YES, has PT been informed?: No Medical Necessity Reason Pt with a Central, PICC or Fol: Yes The following are medically ne: Tijerina Catheter Reason for tijerina catheter: Strict I&O Subjective no new symptoms vital signs Vital Sign Date Time Temp Pulse Resp B/P (MAP) Pulse Ox O2 Delivery O2 Flow Rate FiO2 04/16/25 17:31 104 04/16/25 17:31 20 93 Nasal Cannula* 2 28 04/16/25 12:15 104/50 (68) 04/16/25 12:00 98.6 98.6 Total Intake and Output 04/15/25 04/15/25 04/16/25 15:00 23:00 07:00 Intake Total 636.065 ml 1115.002 ml 773.816 ml Output Total 625 ml 1000 ml Balance 636.065 ml 490.002 ml -226.184 ml medications Current Medications Medications Dose Ordered Sig/Sravan Route Start Time Stop Time Status Last Admin Dose Admin Acetaminophen/ Hydrocodone Bitart 1 tab Q4HP PRN PO 03/20/25 12:15 04/11/25 23:13 1 TAB Ondansetron HCl 4 mg Q4HP PRN IV 03/20/25 12:15 03/26/25 08:18 4 MG Docusate Sodium 100 mg BIDPRN PRN PO 03/20/25 12:15 Acetaminophen 650 mg Q6HP PRN PO 03/20/25 12:15 04/16/25 06:22 650 MG Nitroglycerin 0.4 mg Q5MINP PRN SL 03/20/25 12:15 03/25/25 09:26 0.4 MG Morphine Sulfate 2 mg Q30M PRN IV 03/20/25 12:15 03/25/25 09:43 2 MG Allopurinol 100 mg DAILY PO 03/21/25 10:00 04/16/25 09:47 100 MG Apixaban 2.5 mg BID PO 03/20/25 22:00 04/16/25 09:47 2.5 MG Cilostazol 100 mg BID PO 03/20/25 22:00 04/16/25 09:46 100 MG Patient Own Medication 1 tab DAILY PO 03/21/25 10:00 UNV Patient Own Medication 1 tab DAILY PO 03/21/25 10:00 UNV Gabapentin 300 mg DAILY PO 03/21/25 10:00 04/16/25 09:47 300 MG Diphenhydramine HCl 50 mg [id number] PRN PO 03/21/25 16:45 04/16/25 06:43 50 MG Patient Own Medication 1 tab BID PO 03/21/25 22:00 04/16/25 09:48 1 TAB Throat Lozenges 1 liv Q2HP PRN MT 03/23/25 04:00 03/23/25 14:52 1 LIV Pantoprazole Sodium 40 mg DAILY IV 03/26/25 10:00 04/16/25 09:49 40 MG Magnesium Oxide 400 mg DAILY PO 03/27/25 10:00 04/16/25 09:46 400 MG Ertapenem 0.5 gm DAILY IM 03/27/25 11:15 Cancel Diagnostic Test (Pha) 1 strip Q6HR 03/27/25 18:00 04/16/25 12:53 1 STRIP Insulin Human Regular FOLLOW SLIDING SCALE Q6HR SC 03/27/25 18:00 04/16/25 12:49 2 UNITS Dextrose 50 ml UD IV 03/27/25 12:30 Norepinephrine Bitartrate 250 ml @ 0.938 mls/ hr Q24H IV 03/28/25 09:15 04/15/25 13:38 1.875 MLS/HR Amiodarone HCl 200 mg Q12HR PO 03/29/25 10:00 04/16/25 09:47 200 MG Nystatin 1 applic DAILY TOP 04/01/25 10:00 04/16/25 09:48 1 APPLIC Multivit/Ca Carb/ B Cmplx/FA/Prenat 1 tab DAILY PO 04/03/25 10:00 04/16/25 09:46 1 TAB Ferrous Sulfate 325 mg BIDWM PO 04/03/25 18:00 04/16/25 09:47 325 MG Midodrine 10 mg TID@0600,1200,1800 PO 04/04/25 12:00 04/16/25 12:48 10 MG Albuterol 2.5 mg Q4HR NEB 04/06/25 14:00 04/16/25 14:36 2.5 MG Ipratropium [place] 0.5 mg Q4HR NEB 04/06/25 14:00 04/16/25 14:36 0.5 MG Ertapenem 1 gm/ Sodium Chloride 50 ml @ 100 mls/hr DAILY IV 04/08/25 14:00 04/16/25 12:48 100 MLS/HR Bumetanide 3 mg BIDD IV 04/08/25 18:00 04/16/25 06:21 3 MG Amino Acids 0 ml @ 0 mls/hr PER PHARMACY IV 04/09/25 09:00 Levothyroxine Sodium 50 mcg DAILY IV 04/09/25 10:00 04/16/25 09:49 50 MCG Fat Emulsion Intravenous 200 ml/Sodium Chloride 60 meq/ Potassium Chloride 60 meq/ Potassium Phosphate 30 meq/ Magnesium Sulfate 10 meq/ Multivitamins 10 ml/Chromium/ Copper/Manganese/ Zinc 1 ml/Amino Acids/Dextrose 1,515.3182 ml @ 63 mls/hr Q24H4M IV 04/15/25 22:00 04/16/25 21:59 04/15/25 22:00 63 MLS/HR Fat Emulsion Intravenous 200 ml/Sodium Chloride 60 meq/ Potassium Chloride 80 meq/ Potassium Phosphate 50 meq/ Magnesium Sulfate 10 meq/ Multivitamins 10 ml/Chromium/ Copper/Manganese/ Zinc 1 ml/Amino Acids/Dextrose 1,529.8636 ml @ 64 mls/hr [id number] IV 04/16/25 22:00 04/17/25 21:59 objective HEENT: No evidence of JVD, no oral ulcers. Pulmonary: Crackles on auscultation bilaterally Cardiovascular S1-S2, no S3 or S4 Abdomen: Bowel sounds positive, soft no rebound tenderness Skin: No rash Neurological: Alert, oriented, no focal weakness Extremities: 2+ lower extremity edema pitting Right upper chest CVC in place. laboratory and microbiology Laboratory Tests 04/16/25 05:00 Test 04/16/25 05:00 Range/Units Serum Glucose 129 H 74-106 mg/dL Assessment/Plan Assessment: Acute kidney injury superimposed on CKD 4 on intermittent HD Sepsis, urine culture: E coli and Klebsiella both of which are ESBL . Wound culture with E coli ESBL Pelvic abscess Status post drainage of left pelvic abscess Left hydronephrosis which has a resolved Acute on chronic diastolic heart failure Anemia status post transfusion of PRBC Pulmonary hypertension Atrial fibrillation Bed-bound patient Chronic alcoholism in remission, last alcoholic beverage three months ago. Hypokalemia Recommendation/plan s/p HD Wednesday Next HD on Wednesday Hemodialysis to continue on TTS schedule Continue Bumex b.i.d. still makes urine senior safety support manager to arrange chair time, we will monitor for renal recovery within the next 90 days Fluid restriction less than 1 L per day, renal diet Midodrine 3 times a day and during dialysis Overall long-term prognosis is guarded Dietary Evaluation Review Comments: Renal Specific 60g CCHO-60 Cardiac Diet d/t SCOT over CKD and low GFR Expected Outcomes/Goals: less uremic symptoms, better weight management Plan discussed with: Patient CC Plasma Assessment Blood Product Administration S: [id number] AVELINO DUNLAP MD Apr 16, 2025 18:24
[2025-04-16] MEDS: POTASSIUM CHLORIDE IV NR (21:44)
[2025-04-16] MEDS: FAT EMULSION IV NR (21:44)
[2025-04-16] MEDS: [UNRECOGNIZED DRUG - OTHER] IV NR (21:44)
[2025-04-16] MEDS: SODIUM CHLORIDE IV NR (21:44)
[2025-04-17] MEDS ORDERED: SODIUM CHL 0.9% 1000 ML BAG XX ONE (07:00)
[2025-04-17] MEDS ORDERED: EPOETIN ALFA-EPBX 10,000 UNIT/1ML VIAL SC ONE (21:00)
== END 2025-04-16 23:35 | disposition short-term general hospital (02) | DRG 871 ==
LOC: EDBD 04:56 → ER 04:56 → OVERFLOW 12:08 → ICU WEST 03-21 22:19 → DOU IN ICU 04-11 11:04
PROVIDERS: ADMIT Nurse Practitioner Acute Care; ATTEND Nurse Practitioner Acute Care
PROC: 30233N1 Transfusion of Nonautologous Red Blood Cells into Peripheral Vein, Percutaneous Approach (ICD-10-PCS; 2025-03-20)
PROC: 0W9J30Z Drainage of Pelvic Cavity with Drainage Device, Percutaneous Approach (ICD-10-PCS; 2025-03-26)
PROC: 05H933Z Insertion of Infusion Device into Right Brachial Vein, Percutaneous Approach (ICD-10-PCS; 2025-03-29)
PROC: B54MZZA Ultrasonography of Right Upper Extremity Veins, Guidance (ICD-10-PCS; 2025-03-29)
PROC: 0JH63XZ Insertion of Tunneled Vascular Access Device into Chest Subcutaneous Tissue and Fascia, Percutaneous Approach (ICD-10-PCS; principal; 2025-04-03)
PROC: 02H633Z Insertion of Infusion Device into Right Atrium, Percutaneous Approach (ICD-10-PCS; 2025-04-03)
PROC: 02HV33Z Insertion of Infusion Device into Superior Vena Cava, Percutaneous Approach (ICD-10-PCS; 2025-04-03)
PROC: B5181ZA Fluoroscopy of Superior Vena Cava using Low Osmolar Contrast, Guidance (ICD-10-PCS; 2025-04-03)
PROC: B548ZZA Ultrasonography of Superior Vena Cava, Guidance (ICD-10-PCS; 2025-04-03)
PROC: 5A1D70Z Performance of Urinary Filtration, Intermittent, Less than 6 Hours Per Day (ICD-10-PCS; 2025-04-03)
PROC: 5A1D70Z Performance of Urinary Filtration, Intermittent, Less than 6 Hours Per Day (ICD-10-PCS; 2025-04-06)
PROC: 5A1D70Z Performance of Urinary Filtration, Intermittent, Less than 6 Hours Per Day (ICD-10-PCS; 2025-04-08)
PROC: 02HV33Z Insertion of Infusion Device into Superior Vena Cava, Percutaneous Approach (ICD-10-PCS; 2025-04-10)
PROC: B548ZZA Ultrasonography of Superior Vena Cava, Guidance (ICD-10-PCS; 2025-04-10)
PROC: 5A1D70Z Performance of Urinary Filtration, Intermittent, Less than 6 Hours Per Day (ICD-10-PCS; 2025-04-10)
PROC: 5A1D70Z Performance of Urinary Filtration, Intermittent, Less than 6 Hours Per Day (ICD-10-PCS; 2025-04-12)
PROC: 5A1D70Z Performance of Urinary Filtration, Intermittent, Less than 6 Hours Per Day (ICD-10-PCS; 2025-04-14)
DX: A41.51 Sepsis due to Escherichia coli [E. coli] (principal); I50.43 Acute on chronic combined systolic (congestive) and diastolic (congestive) heart failure; J15.69 Pneumonia due to other Gram-negative bacteria; R65.21 Severe sepsis with septic shock; N17.0 Acute kidney failure with tubular necrosis; J15.9 Unspecified bacterial pneumonia; K65.1 Peritoneal abscess; J96.21 Acute and chronic respiratory failure with hypoxia; E87.1 Hypo-osmolality and hyponatremia; N18.4 Chronic kidney disease, stage 4 (severe); K57.20 Diverticulitis of large intestine with perforation and abscess without bleeding; J44.0 Chronic obstructive pulmonary disease with (acute) lower respiratory infection; Z16.12 Extended spectrum beta lactamase (ESBL) resistance; N13.6 Pyonephrosis; I13.0 Hypertensive heart and chronic kidney disease with heart failure and stage 1 through stage 4 chronic kidney disease, or unspecified chronic kidney disease; Z68.43 Body mass index [BMI] 50.0-59.9, adult; Z20.822 Contact with and (suspected) exposure to COVID-19; D64.9 Anemia, unspecified; I48.91 Unspecified atrial fibrillation; E66.01 Morbid (severe) obesity due to excess calories; E83.42 Hypomagnesemia; R74.01 Elevation of levels of liver transaminase levels; D69.6 Thrombocytopenia, unspecified; F10.21 Alcohol dependence, in remission; E87.6 Hypokalemia; N73.9 Female pelvic inflammatory disease, unspecified; E78.5 Hyperlipidemia, unspecified; M19.90 Unspecified osteoarthritis, unspecified site; M06.9 Rheumatoid arthritis, unspecified; E11.22 Type 2 diabetes mellitus with diabetic chronic kidney disease; E11.51 Type 2 diabetes mellitus with diabetic peripheral angiopathy without gangrene; I27.22 Pulmonary hypertension due to left heart disease; I08.1 Rheumatic disorders of both mitral and tricuspid valves; E86.1 Hypovolemia; K21.9 Gastro-esophageal reflux disease without esophagitis; M10.9 Gout, unspecified; Z88.1 Allergy status to other antibiotic agents; Z79.01 Long term (current) use of anticoagulants; Z79.899 Other long term (current) drug therapy; Z96.651 Presence of right artificial knee joint; Z74.01 Bed confinement status; Z99.81 Dependence on supplemental oxygen; Z99.2 Dependence on renal dialysis; Z79.51 Long term (current) use of inhaled steroids; Z82.5 Family history of asthma and other chronic lower respiratory diseases; Z82.3 Family history of stroke; Z82.49 Family history of ischemic heart disease and other diseases of the circulatory system; Z86.73 Personal history of transient ischemic attack (TIA), and cerebral infarction without residual deficits; Z79.2 Long term (current) use of antibiotics; Z79.02 Long term (current) use of antithrombotics/antiplatelets; Z91.148 Patient's other noncompliance with medication regimen for other reason; Y90.9 Presence of alcohol in blood, level not specified
CPT/HCPCS: 10005; 36415; 36556; 36558; 36569; 36600; 71045; 74150; 74176; 76700; 76775; 77001; 77012; 78707; 80048; 80053; 80069; 81001; 82040; 82150; 82247; 82728; 82805; 82962; 83540; 83550; 83605; 83690; 83735; 84100; 84132; 84436; 84439; 84443; 84478; 84480; 84481; 84484; 85014; 85018; 85025; 85610; 85730; 86706; 86850; 86900; 86901; 86920; 86922; 87070; 87077; 87081; 87086; 87088; 87186; 87205; 87340; 87426; 87880; 90935; 93005; 93306; 94640; 96365; 99152; 99291; 99292; C1729; C1894; G0378; J1335; J1642; J1756; J1815; J2003; J2250; J2405; J2470; J2543; J3480; J3490; J7060; J7131; P9047

== ENCOUNTER 2025-05-23 20:27 | Inpatient (IN) | payer OTHER, MEDICAID ==
[~2025-05-23] VITALS: Ht 165.1 cm; Wt 134.8 kg
[~2025-05-23 20:27] MED LIST changes: +AMIO200T13 PO; -APIX5TAB PO; -DOXY-346 PO; -GABA-1308 PO; +LEVO137T3 PO
--- NOTE | 2025-05-23 21:50 | ED.PDOC ---
History of Present Illness HPI Comments 74 year old female presents to the ED via transportation with a chief complaint of abdominal discomfort s/p sigmoid colon abscess. Per transporter, patient was told to come through ED for direct admission for surgery, for sigmoid colon abscess. Was seen in this hospital was discharged 04/10/25. Patient has no other complaints. Has dialysis Wednesday, Wednesday, Wednesday. PMHx CHF, CKF, A-FIB, COPD, DM, HLD, HTN. No other symptoms or modifying factors present at this time. 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 01/20/22 Reported Medications Amiodarone HCl (Amiodarone HCl) 200 Mg Tab, 1 TAB PO BID 03/20/25 Levothyroxine Sodium (Levothyroxine Sodium) 137 Mcg Tab, 1 TAB PO DAILY 03/20/25 Ropinirole Hydrochloride (Ropinirole Hcl) 0.25 Mg Tab, 1 TAB PO BID for 90 Days, #180 02/26/25 Spironolactone (Spironolactone) 50 Mg Tab, 1 TAB PO DAILY for 90 Days, #90 02/26/25 Meclizine HCl (Meclizine Hydrochloride) 25 Mg Tab, 1 TAB PO DAILY PRN for 90 Days, #90 02/26/25 Midodrine Hcl (Midodrine Hcl) 10 Mg Tab, 1 TAB PO BID for 90 Days, #180 02/26/25 Potassium Chloride (Potassium Chloride ER) 20 Meq Tab, 1 TAB PO BID for 90 Days, #180 02/26/25 Fluticasone-Salmeterol (Fluticasone Propionate/SA 500-50 Mcg/Dose) 1 Aer Aer, 1 PUFF PO BID for 30 Days, #60 02/26/25 Lactulose (Lactulose) 10 Gm/15 Ml Yoselyn, 15 ML PO DAILY for 30 Days, #450 02/26/25 Gabapentin (Gabapentin) 300 Mg Cap, 300 MG PO BID 11/08/24 Pantoprazole Sodium Sesquihydr (Pantoprazole Sodium) 40 Mg Tab, 1 TAB PO DAILY 11/08/24 Atorvastatin Calcium (ATORVASTATIN CALCIUM) 20 Mg Tab, 1 TAB PO DAILY 11/08/24 Bumetanide (Bumetanide) 2 Mg Tab, 1 TAB PO BID 11/08/24 Apixaban Base (ELIQUIS) 2.5 Mg Tab, 1 TAB PO BID 11/08/24 Loperamide HCl (Imodium A-D) 1 Mg/7.5 Ml Liq, 1 MG PO, LIQ 01/17/22 Clobetasol Propionate (Clobetasol Propionate) 0.05 % Oin, 1 APPLIC TOP BID, #15 GRAMS 01/17/22 Hydroxychloroquine Sulfate (PLAQUENIL) 200 Mg Tab, 1 TAB PO DAILY, #180 TAB 3 Refills 01/17/22 Furosemide (Furosemide) 40 Mg Tab, 1 TAB PO DAILY, #30 TAB 5 Refills 01/17/22 Fluticasone-Salmeterol (Advair Diskus 500/50) 1 Puff Ih, 1 PUFF INH BID, #1 INHALER 5 Refills 01/17/22 Albuterol Sulfate (VENTOLIN MDI) 90 Mcg Ih, 90 MCG IN Q6HP for 30 Days, MCG 01/17/22 Allopurinol (Allopurinol) 100 Mg Tab, 100 MG PO DAILY for 30 Days, MG 01/17/22 Amlodipine Besylate (Amlodipine Besylate) 5 Mg Tab, 5 MG PO DAILY for 30 Days, MG 01/17/22 Pantoprazole Sodium (PANTOPRAZOLE SODIUM) 40 Mg Inj, 40 MG IV DAILY, INJ 01/17/22 Cilostazol (Cilostazol) 100 Mg Tab, 100 MG PO BID for 30 Days, MG 01/17/22 Methocarbamol (Methocarbamol) 750 Mg Tab, 750 MG PO BID, TAB 01/17/22 Sotalol Hcl (Sotalol Hcl) 80 Mg Tab, 0.5 TAB PO BID, #60 TAB 5 Refills 01/17/22 Meclizine HCl (Meclizine 25) 25 Mg Tab, 25 MG PO BID, TAB 01/17/22 Information Source: Patient Mode of Arrival: Severity: Moderate Timing: Hours Duration: Since onset Prehospital treatment: None Past Medical History PAST MEDICAL HISTORY: AFIB, CHF, CKF, COPD, DM, High Lipids, HTN Surgical History: Denies all surgeries STORE HAND History: No Pertinent STORE HAND History Family History Family History: Reviewed,noncontributory to illness Social History Smoker: Non-Smoker Alcohol: Denies ETOH Use Drugs: Denies Drug Use Lives In: Other Constitutional: denies: chills, diaphoresis, fatigue, fever, malaise, sweats, weakness, others EENTM: denies: blurred vision, double vision, ear bleeding, ear discharge, ear drainage, ear pain, ear ringing, eye pain, eye redness, hearing loss, mouth pain, mouth swelling, nasal discharge, nose bleeding, nose congestion, nose pain, photophobia, tearing, throat pain, throat swelling, voice changes, others Respiratory: denies: cough, hemoptysis, orthopnea, SOB at rest, shortness of breath, SOB with excertion, stridor, wheezing, others Cardiovascular: denies: chest pain, dizzy spells, diaphoresis, Dyspnea on exertion, edema, irregular heart beat, left arm pain, lightheadedness, palpitations, PND, syncope, others Gastrointestinal: reports: abdominal pain; denies: abdomen distended, blood streaked bowels, constipated, diarrhea, dysphagia, difficulty swallowing, hematemesis, melena, nausea, poor appetite, poor fluid intake, rectal bleeding, rectal pain, vomiting, others Genitourinary: denies: abnormal vagina bleeding, burning, dyspareunia, dysuria, flank pain, frequency, hematuria, incontinence, pain, , vagina discharge, urgency, others Neurological: denies: dizziness, fainting, headache, left sided numbness, left sided weakness, numbness, paresthesia, pre-existing deficit, right sided numbness, right sided weakness, seizure, speech problems, tingling, tremors, weakness, others Musculoskeletal: denies: back pain, gout, joint pain, joint swelling, muscle pain, muscle stiffness, neck pain, others Integumetry: denies: bruises, change in color, change in hair/nails, dryness, laceration, lesions, lumps, rash, wounds, others Allergic/Immunocompromised: denies: Difficulty Healing, Frequent Infections, Hives, Itching, others Hematologic/Lymphatic: denies: anemia, blood clots, easy bleeding, easy bruising, swollen glands, others Endocrine: denies: excessive hunger, excessive sweating, excessive thirst, excessive urination, flushing, intolerance to cold, intolerance to heat, unexplained weight gain, unexplained weight loss, others Psychiatric: denies: anxiety, bipolar disorder, depression, hopeless, panic disorder, schizophrenia, sleepless, suicidal, others All Other Systems: Reviewed and Negative Physical Exam General Appearance: Normal HEENT: Normal ENT Inspection, Pharynx Normal, TMs Normal Neck: Full Range of Motion, Non-Tender, Normal, Normal Inspection Respiratory: Chest Non-Tender, Lungs Clear, No Accessory Muscle Use, No Respiratory Distress, Normal Breath Sounds Cardiovascular: No Edema, No JVD, No Murmur, No Gallop, Normal Peripheral Pulses, Regular Rate/Rhythm Breast Exam: Deferred Gastrointestinal: No Organomegaly, Non Tender, No Pulsatile Mass, Normal Bowel Sounds, Soft Genitalia: Deferred Pelvic: Deferred Rectal: Deferred Extremities: No calf tenderness, Normal capillary refill, Normal inspection, Normal range of motion, Non-tender, No pedal edema Musculoskeletal : Apperance: Normal Neurologic: Alert, waistband setter II-XII nml as Tested, No Motor Deficits, Normal Affect, Normal Mood, No Sensory Deficits Cerebellar Function: Normal Reflexes: Normal Skin: Dry, Normal Color, Warm Lymphatic: No Adenopathy Was a procedure done? Was a procedure done?: No Differential Dx Considerations may include: Persistent intra-abdominal abscess, fluid overload, electrolyte abnormality, sepsis, CHF and others X-Ray, Labs, Meds, VS Vital Signs Date Time Temp Pulse Resp B/P (MAP) Pulse Ox O2 Delivery O2 Flow Rate FiO2 05/23/25 22:00 97.8 86 24 120/52 (74) 100 97.8 05/23/25 20:27 98.0 79 18 122/67 99 98.0 Lab Test 05/23/25 22:55 05/23/25 21:56 Range/Units Troponin I High Sensitivity Pending 32 </=34 ng/L White Blood Count 5.1 4.4-10.8 10^3/uL Red Blood Count 2.79 L 4.0-5.20 10^6/uL Hemoglobin 8.3 L 12.2-16.2 g/dL Hematocrit 25.4 L 36.0-46.0 % Mean Corpuscular Volume 91.1 80.0-100.0 fL Mean Corpuscular Hemoglobin 29.8 28.0-32.0 pg Mean Corpuscular Hemoglobin Concent 32.7 32.0-36.0 g/dL Red Cell Distribution Width 18.9 H 11.8-14.3 % Platelet Count 123 L 140-450 10^3/uL Mean Platelet Volume 8.6 6.9-10.8 fL Neutrophils (%) (Auto) 93.4 H 37.0-80.0 % Lymphocytes (%) (Auto) 4.1 L 10.0-50.0 % Monocytes (%) (Auto) 2.3 0.0-12.0 % Eosinophils (%) (Auto) 0.1 0.0-7.0 % Basophils (%) (Auto) 0.1 0.0-2.0 % Neutrophils # (Auto) 4.8 1.6-8.6 10 ^3/uL Lymphocytes # (Auto) 0.2 L 0.4-5.4 10 ^3/uL Monocytes # (Auto) 0.1 0-1.3 10 ^3/uL Eosinophils # (Auto) 0 0-0.8 10 ^3/uL Basophils # (Auto) 0 0-0.2 10 ^3/uL Nucleated Red Blood Cells 0.0 % Sodium Level 141 136-145 mmol/L Potassium Level 4.5 3.5-5.1 mmol/L Chloride Level 105 98-107 mmol/L Carbon Dioxide Level 27 20-31 mmol/L Anion Gap 9 5-15 Blood Urea Nitrogen 48 H 9-23 mg/dL Creatinine 1.27 H 0.550-1.02 mg/dL Glomerular Filtration Rate Calc 44 >90 mL/min BUN/Creatinine Ratio 37.8 H 10.0-20.0 Serum Glucose 153 H 74-106 mg/dL Lactic Acid Level 1.1 0.4-2.0 mmol/L Calcium Level 8.5 L 8.7-10.4 mg/dL Total Bilirubin 1.8 H 0.2-1.0 mg/dL Aspartate Amino Transferase (AST) 10 L 13-40 U/L Alanine Aminotransferase (ALT) 10 7-40 U/L Alkaline Phosphatase 112 46-116 U/L Total Protein 5.6 L 5.7-8.2 g/dL Albumin 3.3 3.2-4.8 g/dL Lipase 24 12-53 U/L Time of 1ST Reevaluation: 22:10 Reevaluation 1ST: Unchanged Patient Education/Counseling: Diagnosis, Treatment Family Education/Counseling: No Family Present SEPSIS Sepsis Screen Date sepsis recognized/suspect: May 23, 2025 Time Sepsis recognized/suspect: 2026 Recent Procedure: No On Antibiotic Therapy: No Respiratory Rate >20: No Heart Rate >90: No Temp<36 C (96.8 F) or >38.3 C: No SBP <90 or MAP <65 mmHG: No New Acute Mental Status Change: No Is the patient on CPAP, BIPAP,: No Physician Orders Troponin-I Hs (05/24/25 00:00) Troponin-I Hs (05/24/25 03:00) Troponin-I Hs (05/24/25 06:00) Urinalysis (05/23/25 20:56) Electrocardigram (05/23/25 20:56) Troponin-I Hs (05/23/25 23:56) Blood Culture (05/23/25 21:44) Ct Ab Pel Wo Con-No Oral Or Iv (05/23/25 21:44) Zosyn Extended Infusion (05/23/25 23:45) Vital Signs Date Time Temp Pulse Resp B/P (MAP) Pulse Ox O2 Delivery O2 Flow Rate FiO2 05/23/25 22:00 97.8 86 24 120/52 (74) 100 97.8 05/23/25 20:27 98.0 79 18 122/67 99 98.0 Laboratory Tests Test 05/23/25 21:56 Lactic Acid Level 1.1 mmol/L (0.4-2.0) White Blood Count 5.1 10^3/uL (4.4-10.8) Departure 1 Departure Time of Disposition: 23:41 Impression: Primary Impression: Acute on chronic kidney failure Additional Impressions: Acute on chronic diastolic CHF (congestive heart failure) Pelvic abscess in female Disposition: ADMITTED INPATIENT Admit to: Tele Condition: Guarded Comments Lab and x-rays reviewed. CT of the abdomen shows persistent pelvic abscess. Patient was given IV Zosyn antibiotics. Patient will need to be admitted for chronic renal failure on dialysis, pelvic abscess and heart failure. Critical Care Note Critical Care Time?: Yes (35 min-critical care time only) Critical care comment: Total critical care time: Approximately 36 minutes Due to a high probability of clinically significant, life threatening deterioration, the patient required my highest level of preparedness to interv veronika emergently and I personally spent this critical care time directly and personally managing the patient. This critical care time included obtaining a history; examining the patient; pulse oximetry; ordering and review of studies; arranging urgent treatment with development of a management plan; evaluation of patient's response to treatment; frequent reassessment; and, discussions with other providers. This critical care time was performed to assess and manage the high probability of imminent, life-threatening deterioration that could result in multi-organ failure. It was exclusive of separately billable procedures and treating other patients. Stability Stability form required: No I personally scribed for WILD FRANK MD ([email or web address]) on 05/23/25 at 21:50. Electronically submitted by Chani Joy ([email or web address]). WILD FRANK MD May 23, 2025 21:50
[2025-05-23 22:00] VITALS: PULSE 86; RESP 16; O2SAT 98
[2025-05-23 22:30] LABS: Hematocrit 25.4 % (36.0-46.0); Hemoglobin 8.3 g/dL (12.2-16.2); Mean Corpuscular Hemoglobin 29.8 pg (28.0-32.0); Mean Corpuscular Volume 91.1 fL (80.0-100.0); Nucleated Red Blood Cells % 0.0 %
[2025-05-23 22:51] LABS: Alanine Aminotransferase 10 U/L (7-40); Albumin 3.3 g/dL (3.2-4.8); Alkaline Phosphatase 112 U/L (46-116); Anion Gap 9 (5-15); BUN/Creatinine Ratio 37.8 (10.0-20.0); Bilirubin, Total 1.8 mg/dL (0.2-1.0); Blood Urea Nitrogen 48 mg/dL (9-23); Calcium 8.5 mg/dL (8.7-10.4); Carbon Dioxide 27 mmol/L (20-31); Chloride 105 mmol/L (98-107); Glucose 153 mg/dL (74-106); Lipase 24 U/L (12-53); Potassium 4.5 mmol/L (3.5-5.1); Sodium 141 mmol/L (136-145); Total Protein 5.6 g/dL (5.7-8.2)
--- NOTE | 2025-05-23 23:24 | DVH ---
CT SCAN ABDOMEN AND PELVIS WITHOUT CONTRAST CLINICAL HISTORY: abdominal abscess, renal failure on dialysis TECHNIQUE: Helical axial images are obtained from the lung bases through the pelvis without oral cont rast. No intravenous contrast was administered. Coronal and sagittal reformatted images were generate d from thin section reconstructions. One or more of the following radiation dose reduction techniques were used for this examination: automated exposure control, adjustment of the mA and/or kV according to patient size, use of iterative reconstruction technique. COMPARISON: CT CT AB PEL WO CON-NO ORAL OR IV on DOS: 04/07/25, CT CT AB PEL WO CON-NO ORAL OR IV on D OS: 04/02/25 FINDINGS: LOWER THORAX: Small bilateral pleural effusions with atelectasis/ consolidation re-identified in the imaged lung ba ses. Scattered atelectasis / scarring as well. Cardiomegaly. ABDOMEN AND PELVIS: Evaluation of visceral and vascular structures is limited due to lack of contrast administration. Interim removal of the left lower quadrant approach pigtail drainage catheter. Persistent perisigmoid fluid collection which measures approximately 5.7 x 3.0 cm in axial dimensions . Mild adjacent inflammatory change. Persistent mild sigmoid thickening with adjacent inflammation a s well. No other new collections are identified at this time. No evidence of bowel obstruction. No free intraperitoneal air identified. Mild left periureteral edema. No sizable, obstructing urinary tract calculi identified. Other chronic appearing findings appear relatively unchanged when compared to the prior examinations. IMPRESSION: Interval removal of pelvic drainage catheter with persistent perisigmoid abscess. Other chronic-appearing findings appear relatively unchanged when compared to the recent prior examin ations. Left periureteral edema. Correlate for possible UTI.
[2025-05-24] MEDS: PIPERACILLIN-TAZOB 2.25GM 50 ML IV ONE (00:08)
[2025-05-24] MEDS: SODIUM CHLORIDE 0.9% 1,000 ML IV ONE (01:38)
[2025-05-24] MEDS: ACETAMINOPHEN 325 MG TAB PO ONE (03:22)
[2025-05-24] MEDS: ALBUMIN 5% 250 ML IV ONE (03:58)
[2025-05-24 05:06] LABS: Urine Budding Yeast MODERATE /hpf (None Seen); Urine Protein, UAD Negative (Negative)
[2025-05-24] MEDS: MORPHINE SULFATE INJ 2 MG/ml SYRG IV ONE (05:30)
[2025-05-24] MEDS: HYDROcodone-ACET 5/325MG TAB PO ONE (05:35)
[2025-05-24 07:30] VITALS: PULSE 84; RESP 18; O2SAT 100
--- NOTE | 2025-05-24 11:05 | DVHHP2 ---
History of Present Illness Reason for Visit: Abdominal pain History of Present Illness Zoila Gold is a 74-year-old female with past medical history of right total knee replacement, neuropathy, PVD, hypertension, hyperlipidemia, obesity, anemia, CKD, diabetes type 2, CHF, AFib, right chest HD catheter, tubal ligation, and COPD who presents to the ED with abdominal pain status post sigmoid colon abscess. Per reports patient was advised to come in for surgery. Patient reports that she was seen in the last 5 months in and out of hospitals last one being at [facility] in [place]. She also reports that she had a left abdominal drain which was removed. Patient also reports that she uses 3 L of oxygen via nasal cannula continuously at home. Patient also reports that she lives at home alone but has a neighbor who helps. Patient also reports that she does not walk and gets transferred [facility] to [facility]. Patient denies any recent travels, recent ingestion of spoiled food, recent trauma or injury, recent sick contacts, chest pain, shortness of breath, fever, chills, lightheadedness, weakness, dizziness, nausea, vomiting, or diarrhea. Cardiovascular: AFIB, CHF, HTN, hyperipidemia Pulmonary: COPD Heme/Onc: Anemia NOS Renal/: Chronic renal insuff Endocrine: Diabetes Past Medical History Neuropathy PVD Obesity Right chest HD catheter Past Surgical History: Other (Right total knee replacement and left abscess drain), Tubal Ligation Family History: Hypertension, Other (Mom with hypertension, CHF, and stroke) Smoke: # pack years ALCOHOL: none Drugs: None Lives: Alone Domestic Violence: Neg Review of Systems Gastrointestinal: Abdominal Pain Allergies: Coded Allergies: Zinc Oxide (Verified Allergy, Mild, 03/07/25) Sulfa Antibiotics (Verified Allergy, Unknown, 01/16/22) Exam Vital Signs Vital Signs Date Time Temp Pulse Resp B/P (MAP) Pulse Ox O2 Delivery O2 Flow Rate FiO2 05/24/25 07:30 84 18 100 Nasal Cannula* 3 32 05/24/25 07:30 97.9 129/48 (75) 97.9 General Appearance: Alert, Oriented X3, Cooperative, No acute distress HEENT: Atraumatic, PERRLA, EOMI, Mucous membr. moist/pink Respiratory: Normal air movement Cardiovascular: Regular rate, Normal S1, Normal S2, No murmurs Abdominal: Soft Extremities: No cyanosis, Normal pulses Neuro: Normal speech, Normal tone, Sensation intact Psych/Mental Status: Mental status NL, Mood NL Labs/Xrays Labs Test 05/24/25 04:50 05/24/25 04:30 05/23/25 21:56 Range/Units Urine Color Light-yellow Yellow Urine Clarity Clear Clear Urine pH 5.0 5.0-9.0 Urine Specific Galliano 1.009 1.001-1.035 Urine Protein Negative Negative Urine Ketones Negative Negative Urine Blood Negative Negative /uL Urine Nitrite Negative Negative Urine Bilirubin Negative Negative Urine Urobilinogen Normal Negative mg/dL Urine Leukocyte Esterase 3+ Negative /uL Urine RBC None seen 0 - 4 /hpf Urine Microscopic WBC 44 H 0-5 /HPF Urine Squamous Epithelial Cells Few <5 /hpf Urine Bacteria None seen None Seen /hpf Urine Hyaline Casts Few 0 - 2 /lpf Urine Yeast (Budding) Moderate None Seen /hpf Urine Glucose Normal Normal mg/dL Troponin I High Sensitivity 26 </=34 ng/L White Blood Count 5.1 4.4-10.8 10^3/uL Red Blood Count 2.79 L 4.0-5.20 10^6/uL Hemoglobin 8.3 L 12.2-16.2 g/dL Hematocrit 25.4 L 36.0-46.0 % Mean Corpuscular Volume 91.1 80.0-100.0 fL Mean Corpuscular Hemoglobin 29.8 28.0-32.0 pg Mean Corpuscular Hemoglobin Concent 32.7 32.0-36.0 g/dL Red Cell Distribution Width 18.9 H 11.8-14.3 % Platelet Count 123 L 140-450 10^3/uL Mean Platelet Volume 8.6 6.9-10.8 fL Neutrophils (%) (Auto) 93.4 H 37.0-80.0 % Lymphocytes (%) (Auto) 4.1 L 10.0-50.0 % Monocytes (%) (Auto) 2.3 0.0-12.0 % Eosinophils (%) (Auto) 0.1 0.0-7.0 % Basophils (%) (Auto) 0.1 0.0-2.0 % Neutrophils # (Auto) 4.8 1.6-8.6 10 ^3/uL Lymphocytes # (Auto) 0.2 L 0.4-5.4 10 ^3/uL Monocytes # (Auto) 0.1 0-1.3 10 ^3/uL Eosinophils # (Auto) 0 0-0.8 10 ^3/uL Basophils # (Auto) 0 0-0.2 10 ^3/uL Nucleated Red Blood Cells 0.0 % Sodium Level 141 136-145 mmol/L Potassium Level 4.5 3.5-5.1 mmol/L Chloride Level 105 98-107 mmol/L Carbon Dioxide Level 27 20-31 mmol/L Anion Gap 9 5-15 Blood Urea Nitrogen 48 H 9-23 mg/dL Creatinine 1.27 H 0.550-1.02 mg/dL Glomerular Filtration Rate Calc 44 >90 mL/min BUN/Creatinine Ratio 37.8 H 10.0-20.0 Serum Glucose 153 H 74-106 mg/dL Lactic Acid Level 1.1 0.4-2.0 mmol/L Calcium Level 8.5 L 8.7-10.4 mg/dL Total Bilirubin 1.8 H 0.2-1.0 mg/dL Aspartate Amino Transferase (AST) 10 L 13-40 U/L Alanine Aminotransferase (ALT) 10 7-40 U/L Alkaline Phosphatase 112 46-116 U/L Total Protein 5.6 L 5.7-8.2 g/dL Albumin 3.3 3.2-4.8 g/dL Lipase 24 12-53 U/L CT SCAN ABDOMEN AND PELVIS WITHOUT CONTRAST CLINICAL HISTORY: abdominal abscess, renal failure on dialysis TECHNIQUE: Helical axial images are obtained from the lung bases through the pelvis without oral contrast. No intravenous contrast was administered. Coronal and sagittal reformatted images were generated from thin section reconstructions. One or more of the following radiation dose reduction techn iques were used for this examination: automated exposure control, adjustment of the mA and/or kV according to patient size, use of iterative reconstruction technique. COMPARISON: CT CT AB PEL WO CON-NO ORAL OR IV on DOS: 04/07/25, CT CT AB PEL WO CON-NO ORAL OR IV on DOS: 04/02/25 FINDINGS: LOWER THORAX: Small bilateral pleural effusions with atelectasis/ consolidation re-identified in the imaged lung bases. Scattered atelectasis / scarring as well. Cardiomegaly. ABDOMEN AND PELVIS: Evaluation of visceral and vascular structures is limited due to lack of contrast administration. Interim removal of the left lower quadrant approach pigtail drainage catheter. Persistent perisigmoid fluid collection which measures approximately 5.7 x 3.0 cm in axial dimensions. Mild adjacent inflammatory change. Persistent mild sigmoid thickening with adjacent inflammation as well. No other new collections are identified at this time. No evidence of bowel obstruction. No free intraperitoneal air identified. Mild left periureteral edema. No sizable, obstructing urinary tract calculi identified. Other chronic appearing findings appear relatively unchanged when compared to the prior examinations. IMPRESSION: Interval removal of pelvic drainage catheter with persistent perisigmoid abscess. Other chronic-appearing findings appear relatively unchanged when compared to the recent prior examinations. Left periureteral edema. Correlate for possible UTI. SEPSIS Sepsis Screen Date sepsis recognized/suspect: May 23, 2025 Time Sepsis recognized/suspect: 2199 Recent Procedure: No On Antibiotic Therapy: No Respiratory Rate >20: Yes Heart Rate >90: No Temp<36 C (96.8 F) or >38.3 C: No SBP <90 or MAP <65 mmHG: No New Acute Mental Status Change: No Is the patient on CPAP, BIPAP,: No Physician Orders Insert/Manage Urinary Catheter QSHIFT (05/24/25 04:21) Vital Signs Date Time Temp Pulse Resp B/P (MAP) Pulse Ox O2 Delivery O2 Flow Rate FiO2 05/24/25 07:30 84 18 100 Nasal Cannula* 3 32 05/24/25 07:30 97.9 84 18 129/48 (75) 100 97.9 05/24/25 07:03 75 12 115/54 (74) 100 05/24/25 06:59 77 14 106/34 (58) 100 05/24/25 06:00 75 26 119/56 (77) 100 05/24/25 05:00 73 20 105/42 (63) 100 05/24/25 04:00 73 13 110/37 (61) 100 Medications Medications Dose Ordered Sig/Sravan Route Start Time Stop Time Status Last Admin Dose Admin Acetaminophen 650 mg ONCE ONCE PO 05/24/25 03:15 05/24/25 03:16 DC 05/24/25 03:22 650 MG Acetaminophen/ Hydrocodone Bitart 1 tab ONCE ONCE PO 05/24/25 05:30 05/24/25 05:31 DC 05/24/25 05:35 1 TAB Albumin Human 250 ml @ 250 mls/hr ONCE ONCE IV 05/24/25 04:00 05/24/25 04:59 DC 05/24/25 03:58 250 MLS/HR Aspirin 81 mg ONCE ONCE PO 05/24/25 02:00 05/24/25 02:01 DC 05/24/25 02:02 81 MG Piperacillin Sod/ Tazobactam Sod 50 ml @ 50 mls/hr ONCE ONCE IV 05/23/25 23:45 05/24/25 00:44 DC 05/24/25 00:08 50 MLS/HR Sodium Chloride 1,000 ml @ 1,000 mls/hr Q1H ONCE IV 05/24/25 01:30 05/24/25 02:29 DC 05/24/25 01:38 1,000 MLS/HR Assessment/Plan Assessment/Plan Assessment Intractable abdominal pain likely due to perisigmoid abscess Acute cystitis Morbid obesity Anemia Acute hypoxic respiratory failure on supplementary O2 Thrombocytopenia SCOT/CKD ESRD on HD (M/W/F) Hyperglycemia Hyperbilirubinemia History of right total knee replacement History of abdominal abscess drain History of neuropathy History of PVD History of hypertension History of hyperlipidemia History of anemia History of diabetes type 2 History of chf History of AFib History of right upper chest HD catheter History of COPD History of tubal ligation Plan Admit to med surge Supplementary oxygen IV antibiotics-Zosyn Antiemetics Pain management Espinal catheter NS 1 L given in ED CT abdomen and pelvis noted Lactic level Troponin noted EKG UA Lipase Hemoglobin A1c ISS and Accu-Cheks Strict I&Os Daily weight NPO for now until surgery sees patient Home medications reconciled DVT prophylaxis-SCDs PUD prophylaxis-PPIs Discussed plan of care with patient and nurse General surgeon consult Nephro consult for dialysis [id number] Preventive counseling healthy eating habits, physical activity, and regular checkups Plan discussed with: Patient Date of Service: May 24, 2025 Billing Provider: CORWIN VILLARREAL Common Visit Codes: [id number] INP/OBS CARE (HIGH) Secondary Visit Codes: [id number] COUNSELING IND CORWIN VILLARREAL May 24, 2025 11:05
[2025-05-24] MEDS ORDERED: MORPHINE SULFATE INJ 2 MG/ml SYRG IV PRN (11:15)
[2025-05-24] MEDS ORDERED: ONDANSETRON HCL 4 MG/2 ML VIAL IV PRN (11:15)
[2025-05-24] MEDS: InsuLIN REG 1unit/0.01ml Soln (100units/ml) SC SCH ×2 (11:30→21:52)
[2025-05-24] MEDS: ACCU-CHEK COMFORT CURVE STRIP VI SCH ×2 (11:53→21:52)
[2025-05-24 13:30] VITALS: PULSE 74; RESP 16; O2SAT 100
[2025-05-24] MEDS: PIPERACILLIN-TAZOB 3.375GM 100 ML IV SCH (14:58)
[2025-05-24] MEDS: DEXTROSE (50%) 50ML SYRG IV PRN (20:02)
[2025-05-24] MEDS ORDERED: SOTALOL HCL 80 MG TAB PO SCH (22:00)
[2025-05-24] MEDS ORDERED: PATIENTS OWN MEDICATION (Methocarbamol 750 MG) PO SCH (22:00)
[2025-05-24] MEDS: ROPINIROLE HYDROCHLORIDE 0.25 MG PO SCH (22:00)
[2025-05-24] MEDS: CILOSTAZOL 100 MG TAB PO SCH (22:28)
[2025-05-24] MEDS: GABAPENTIN 300 MG CAP PO SCH (22:34)
[2025-05-24] MEDS: MIDODRINE HCL 10 MG TAB PO SCH (22:34)
[2025-05-24] MEDS: AMIODARONE HCL 200 MG TAB PO SCH (22:35)
[2025-05-24] MEDS: APIXABAN 2.5 MG TAB PO SCH (22:36)
[2025-05-25 01:32] LABS: Chloride 104 mmol/L (98-107); Potassium 4.5 mmol/L (3.5-5.1); Sodium 139 mmol/L (136-145)
[2025-05-25 01:33] LABS: Anion Gap 8 (5-15); Carbon Dioxide 27 mmol/L (20-31)
[2025-05-25 01:34] LABS: Calcium 8.7 mg/dL (8.7-10.4)
[2025-05-25 01:38] LABS: BUN/Creatinine Ratio 37.5 (10.0-20.0); Glucose 75 mg/dL (74-106)
[2025-05-25 01:42] LABS: Blood Urea Nitrogen 66 mg/dL (9-23)
[2025-05-25 05:06] LABS: Hemoglobin 8.0 g/dL (12.2-16.2)
[2025-05-25 05:08] LABS: Hematocrit 23.6 % (36.0-46.0); Mean Corpuscular Hemoglobin 30.5 pg (28.0-32.0); Mean Corpuscular Volume 90.5 fL (80.0-100.0); Nucleated Red Blood Cells % 0.0 %
[2025-05-25 05:13] LABS: Alanine Aminotransferase 10 U/L (7-40); Alkaline Phosphatase 97 U/L (46-116); Anion Gap 11 (5-15); BUN/Creatinine Ratio 35.0 (10.0-20.0); Calcium 9.0 mg/dL (8.7-10.4); Carbon Dioxide 26 mmol/L (20-31); Chloride 103 mmol/L (98-107); Potassium 4.3 mmol/L (3.5-5.1); Sodium 140 mmol/L (136-145)
[2025-05-25 05:20] LABS: Albumin 3.1 g/dL (3.2-4.8); Bilirubin, Total 2.1 mg/dL (0.2-1.0); Blood Urea Nitrogen 63 mg/dL (9-23); Glucose 66 mg/dL (74-106); Total Protein 5.2 g/dL (5.7-8.2)
[2025-05-25] MEDS: HYDROcodone-ACET 5/325MG TAB PO PRN (05:28)
[2025-05-25] MEDS: LEVOTHYROXINE SODIUM 112 MCG TAB PO SCH (06:49)
[2025-05-25] MEDS: LEVOTHYROXINE SODIUM 25 MCG TAB PO SCH (06:49)
[2025-05-25] MEDS: FUROSEMIDE 40 MG/4 ML VIAL IV SCH (10:00)
[2025-05-25] MEDS: ATORVASTATIN 20 MG TAB PO SCH (10:47)
[2025-05-25] MEDS: ALLOPURINOL 100 MG TAB PO SCH (10:47)
[2025-05-25] MEDS: LACTULOSE 20Gm/30ML SOLN PO SCH (10:49)
[2025-05-25] MEDS: PANTOPRAZOLE 40 MG/10 ML VIAL INJ IV SCH (10:49)
[2025-05-25 12:39] VITALS: PULSE 98; RESP 18; O2SAT 100
[2025-05-25 12:42] VITALS: PULSE 78; RESP 16; TEMP 97.6; O2SAT 99
--- NOTE | 2025-05-25 12:46 | DVHPN2 ---
Reviewed: Care Plan, H&P, Labs, Medications, Previous Orders, Radiology Changes from previous H/P or p: No Changes Gastrointestinal: Abdominal Pain Objective Vitals Vital Signs Date Time Temp Pulse Resp B/P (MAP) Pulse Ox O2 Delivery O2 Flow Rate FiO2 05/25/25 10:00 93 19 92/41 (58) 100 05/25/25 08:00 98.6 98.6 05/25/25 08:00 Nasal Cannula* 4 36 Intake/Output Intake and Output 05/25/25 07:00 Intake Total 100 ml Output Total 400 ml Balance -300 ml Intake IV Total 100 ml Output Urine Total 400 ml Medications Current Medications Medications Dose Ordered Sig/Sravan Route Start Time Stop Time Status Last Admin Dose Admin Piperacillin Sod/ Tazobactam Sod 100 ml @ 25 mls/hr Q8HR IV 05/24/25 14:00 05/25/25 05:28 25 MLS/HR Acetaminophen/ Hydrocodone Bitart 1 tab Q4HP PRN PO 05/24/25 11:15 05/25/25 05:28 1 TAB Ondansetron HCl 4 mg Q4HP PRN IV 05/24/25 11:15 Acetaminophen 650 mg Q6HP PRN PO 05/24/25 11:15 Morphine Sulfate 2 mg Q4HPRN PRN IV 05/24/25 11:15 Dextrose 50 ml UD PRN IV 05/24/25 11:15 05/24/25 20:02 50 ML Pantoprazole Sodium 40 mg DAILY IV 05/25/25 10:00 05/25/25 10:49 40 MG Allopurinol 100 mg DAILY PO 05/25/25 10:00 05/25/25 10:47 100 MG Amiodarone HCl 200 mg BID PO 05/24/25 22:00 05/25/25 10:48 200 MG Amlodipine Besylate 5 mg DAILY PO 05/25/25 10:00 Hold Apixaban 2.5 mg BID PO 05/24/25 22:00 05/25/25 10:48 2.5 MG Atorvastatin Calcium 20 mg DAILY PO 05/25/25 10:00 05/25/25 10:47 20 MG Cilostazol 100 mg BID PO 05/24/25 22:00 05/25/25 10:00 100 MG Gabapentin 300 mg BID PO 05/24/25 22:00 05/25/25 10:48 300 MG Hydroxychloroquine Sulfate 200 mg DAILY PO 05/25/25 10:00 05/25/25 10:47 200 MG Midodrine 10 mg BID PO 05/24/25 22:00 05/25/25 10:48 10 MG Sotalol HCl 40 mg BID PO 05/24/25 22:00 Hold Lactulose 15 ml DAILY PO 05/25/25 10:00 05/25/25 10:49 15 ML Levothyroxine Sodium 112 mcg QAM@0600 PO 05/25/25 06:00 05/25/25 06:49 112 MCG Patient Own Medication 750 mg BID PO 05/24/25 22:00 Hold Patient Own Medication 1 tab BID PO 05/24/25 22:00 Furosemide 40 mg DAILY IV 05/25/25 10:00 Diagnostic Test (Pha) 1 strip IQ4HR 05/24/25 20:00 05/25/25 09:20 1 STRIP Insulin Human Regular IQ4HR SC 05/24/25 20:00 Levothyroxine Sodium 25 mcg QAM@0600 PO 05/25/25 06:00 05/25/25 06:49 25 MCG Laboratory Results Laboratory Tests 05/25/25 03:46 Chemistry Test 05/25/25 01:16 05/25/25 03:46 Calcium Level 8.7 mg/dL (8.7-10.4) 9.0 mg/dL (8.7-10.4) Albumin 3.1 g/dL (3.2-4.8) L Total Protein 5.2 g/dL (5.7-8.2) L LFT Test 05/25/25 03:46 Alanine Aminotransferase (ALT) 10 U/L (7-40) Alkaline Phosphatase 97 U/L (46-116) Aspartate Amino Transferase (AST) 13 U/L (13-40) Total Bilirubin 2.1 mg/dL (0.2-1.0) H Urinalysis Test 05/24/25 04:50 Urine Color Light-yellow (Yellow) Urine Clarity Clear (Clear) Urine pH 5.0 (5.0-9.0) Urine Specific [place] 1.009 (1.001-1.035) Urine Protein Negative (Negative) Urine Ketones Negative (Negative) Urine Blood Negative /uL (Negative) Urine Nitrite Negative (Negative) Urine Bilirubin Negative (Negative) Urine Urobilinogen Normal mg/dL (Negative) Urine Leukocyte Esterase 3+ /uL (Negative) Urine RBC None seen /hpf (0 - 4) Urine Microscopic WBC 44 /HPF (0-5) H Urine Squamous Epithelial Cells Few /hpf (<5) Urine Bacteria None seen /hpf (None Seen) Urine Hyaline Casts Few /lpf (0 - 2) Urine Yeast (Budding) Moderate /hpf (None Seen) Urine Glucose Normal mg/dL (Normal) Microbiology Microbiology Date/Time Source Procedure Growth Status 05/23/25 22:00 Blood Blood Culture - Preliminary NO GROWTH AFTER 24 HOURS OF INCUBATION. Resulted Labs and/or images reviewed: Labs reviewed by me, Image(s) reviewed by me Assessment/Plan Assessment/Plan Sepsis secondary to diverticular abscess Zosyn: Consult for surgeon Dr. Owen Septic shock AFib with a RVR Morbid obesity CKD 4 Diabetes type 2 AK I versus vasomotor nephropathy Chronic systolic versus diastolic congestive heart failure Bed-bound status UTI: Blood cultures negative Time Spent 75 minutes Advanced care planning time 20 minutes Patient is full code Plan discussed with: Patient Date of Service: May 25, 2025 Billing Provider: ABHILASH GOMES MD Common Visit Codes: [id number] CARE 30-74 MIN ABHILASH GOMES MD May 25, 2025 12:46
--- NOTE | 2025-05-25 15:27 | DVHINCON2 ---
Date of service: May 25, 2025 History of Present Illness 74-year-old morbidly obese female with a history of multiple medical problems including CHF and atrial fibrillation who apparently had a sigmoid colon abscess that was drained previously. She was then transferred to long-term care in [place] however came back over because apparently she developed another abscess. However currently patient denies any abdominal pain, fevers, chills or nausea or vomiting. Past Medical History PVD. Morbid obesity. Hypertension. Anemia. CKD. Diabetes. CHF. AFib. COPD. Past Surgical History Right knee replacement. Family History: Cerebrovascular accident (CVA) G8 MOTHER Chronic obstructive pulmonary disease FH: CHF (congestive heart failure) G8 MOTHER Hypertension G8 MOTHER Family History Noncontributory Social History Denies alcohol, tobacco, IV drug use Allergies: Coded Allergies: Zinc Oxide (Verified Allergy, Mild, 03/07/25) Sulfa Antibiotics (Verified Allergy, Unknown, 01/16/22) Home Meds Active Scripts Prednisone (Prednisone) 20 Mg Tab, 20 MG PO BID for 5 Days, #10 TAB Prov:VÍCTOR HAMILTON [employer]ANG [employer] 01/20/22 Reported Medications Amiodarone HCl (Amiodarone HCl) 200 Mg Tab, 1 TAB PO BID 03/20/25 Levothyroxine Sodium (Levothyroxine Sodium) 137 Mcg Tab, 1 TAB PO DAILY 03/20/25 Ropinirole Hydrochloride (Ropinirole Hcl) 0.25 Mg Tab, 1 TAB PO BID for 90 Days, #180 02/26/25 Spironolactone (Spironolactone) 50 Mg Tab, 1 TAB PO DAILY for 90 Days, #90 02/26/25 Meclizine HCl (Meclizine Hydrochloride) 25 Mg Tab, 1 TAB PO DAILY PRN for 90 Da ys, #90 02/26/25 Midodrine Hcl (Midodrine Hcl) 10 Mg Tab, 1 TAB PO BID for 90 Days, #180 25 Potassium Chloride (Potassium Chloride ER) 20 Meq Tab, 1 TAB PO BID for 90 Days, #180 25 Fluticasone-Salmeterol (Fluticasone Propionate/SA 500-50 Mcg/Dose) 1 Aer Aer, 1 PUFF PO BID for 30 Days, #60 25 Lactulose (Lactulose) 10 Gm/15 Ml Yoselyn, 15 ML PO DAILY for 30 Days, #450 02/26/25 Gabapentin (Gabapentin) 300 Mg Cap, 300 MG PO BID 11/08/24 Pantoprazole Sodium Sesquihydr (Pantoprazole Sodium) 40 Mg Tab, 1 TAB PO DAILY 11/08/24 Atorvastatin Calcium (ATORVASTATIN CALCIUM) 20 Mg Tab, 1 TAB PO DAILY 11/08/24 Bumetanide (Bumetanide) 2 Mg Tab, 1 TAB PO BID 11/08/24 Apixaban Base (ELIQUIS) 2.5 Mg Tab, 1 TAB PO BID 11/08/24 Loperamide HCl (Imodium A-D) 1 Mg/7.5 Ml Liq, 1 MG PO, LIQ 01/17/22 Clobetasol Propionate (Clobetasol Propionate) 0.05 % Oin, 1 APPLIC TOP BID, #15 GRAMS 01/17/22 Hydroxychloroquine Sulfate (PLAQUENIL) 200 Mg Tab, 1 TAB PO DAILY, #180 TAB 3 Refills 01/17/22 Furosemide (Furosemide) 40 Mg Tab, 1 TAB PO DAILY, #30 TAB 5 Refills 01/17/22 Fluticasone-Salmeterol (Advair Diskus 500/50) 1 Puff Ih, 1 PUFF INH BID, #1 INHALER 5 Refills 01/17/22 Albuterol Sulfate (VENTOLIN MDI) 90 Mcg Ih, 90 MCG IN Q6HP for 30 Days, MCG 01/17/22 Allopurinol (Allopurinol) 100 Mg Tab, 100 MG PO DAILY for 30 Days, MG 01/17/22 Amlodipine Besylate (Amlodipine Besylate) 5 Mg Tab, 5 MG PO DAILY for 30 Days, MG 01/17/22 Pantoprazole Sodium (PANTOPRAZOLE SODIUM) 40 Mg Inj, 40 MG IV DAILY, INJ 01/17/22 Cilostazol (Cilostazol) 100 Mg Tab, 100 MG PO BID for 30 Days, MG 01/17/22 Methocarbamol (Methocarbamol) 750 Mg Tab, 750 MG PO BID, TAB 01/17/22 Sotalol Hcl (Sotalol Hcl) 80 Mg Tab, 0.5 TAB PO BID, #60 TAB 5 Refills 01/17/22 Meclizine HCl (Meclizine 25) 25 Mg Tab, 25 MG PO BID, TAB 01/17/22 Current Medications Current Medications Medications (Trade) Dose Ordered Sig/Sravan Route PRN Reason Start Time Stop Time Status Last Admin Pantoprazole Sodium (Protonix) 40 mg DAILY IV 05/25/25 10:00 05/25/25 10:49 Allopurinol (Zyloprim Tablet) 100 mg DAILY PO 05/25/25 10:00 05/25/25 10:47 Amiodarone HCl (Cordarone Tablet) 200 mg BID PO 05/24/25 22:00 05/25/25 10:48 Amlodipine Besylate (Norvasc Tablet) 5 mg DAILY PO 05/25/25 10:00 Hold Apixaban (Eliquis) 2.5 mg BID PO 05/24/25 22:00 05/25/25 10:48 Atorvastatin Calcium (Lipitor) 20 mg DAILY PO 05/25/25 10:00 05/25/25 10:47 Cilostazol (Pletal) 100 mg BID PO 05/24/25 22:00 05/25/25 10:00 Gabapentin (Neurontin Capsule) 300 mg BID PO 05/24/25 22:00 05/25/25 10:48 Hydroxychloroquine Sulfate (Plaquenil Tablet) 200 mg DAILY PO 05/25/25 10:00 05/25/25 10:47 Midodrine (Proamatine Tablet) 10 mg BID PO 05/24/25 22:00 05/25/25 10:48 Sotalol HCl (Betapace) 40 mg BID PO 05/24/25 22:00 Hold Lactulose 15 ml DAILY PO 05/25/25 10:00 05/25/25 10:49 Levothyroxine Sodium (Synthroid Tablet) 112 mcg QAM@0600 PO 05/25/25 06:00 05/25/25 06:49 Patient Own Medication 750 mg BID PO 05/24/25 22:00 Hold Patient Own Medication 1 tab BID PO 05/24/25 22:00 Furosemide (Lasix Injection) 40 mg DAILY IV 05/25/25 10:00 Diagnostic Test (Pha) (Accu-Chek Comfort Curve T) 1 strip IQ4HR 05/24/25 20:00 05/25/25 12:00 Insulin Human Regular (InsuLIN R) IQ4HR SC 05/24/25 20:00 Levothyroxine Sodium (Synthroid Tablet) 25 mcg QAM@0600 PO 05/25/25 06:00 05/25/25 06:49 Vital Signs Vital Signs Date Time Temp Pulse Resp B/P (MAP) Pulse Ox O2 Delivery O2 Flow Rate FiO2 05/25/25 12:42 97.6 78 16 99 97.6 05/25/25 12:39 Nasal Cannula* 3 32 Physical Exam GEN: Morbidly obese female in no acute distress. Alert. HEENT: Normocephalic atraumatic. Moist mucous membranes. Anicteric sclerae. ABD: Morbidly obese abdomen. Soft. Nontender nondistended. CT of the abdomen and pelvis: Persistent perisigmoid fluid collection measuring 5.7 x 3 cm with mild adjacent inflammatory changes. Labs/Diagnostic Data Labs Test 05/25/25 13:17 05/25/25 03:46 05/24/25 04:50 05/24/25 04:30 Range/Units POC Glucose 74 70-106 mg/dl White Blood Count 5.3 4.4-10.8 10^3/uL Red Blood Count 2.61 L 4.0-5.20 10^6/uL Hemoglobin 8.0 L 12.2-16.2 g/dL Hematocrit 23.6 L 36.0-46.0 % Mean Corpuscular Volume 90.5 80.0-100.0 fL Mean Corpuscular Hemoglobin 30.5 28.0-32.0 pg Mean Corpuscular Hemoglobin Concent 33.7 32.0-36.0 g/dL Red Cell Distribution Width 18.1 H 11.8-14.3 % Platelet Count 140 140-450 10^3/uL Mean Platelet Volume 8.4 6.9-10.8 fL Neutrophils (%) (Auto) 82.7 H 37.0-80.0 % Lymphocytes (%) (Auto) 9.0 L 10.0-50.0 % Monocytes (%) (Auto) 5.5 0.0-12.0 % Eosinophils (%) (Auto) 2.5 0.0-7.0 % Basophils (%) (Auto) 0.3 0.0-2.0 % Neutrophils # (Auto) 4.4 1.6-8.6 10 ^3/uL Lymphocytes # (Auto) 0.5 0.4-5.4 10 ^3/uL Monocytes # (Auto) 0.3 0-1.3 10 ^3/uL Eosinophils # (Auto) 0.1 0-0.8 10 ^3/uL Basophils # (Auto) 0 0-0.2 10 ^3/uL Nucleated Red Blood Cells 0.0 % Sodium Level 140 136-145 mmol/L Potassium Level 4.3 3.5-5.1 mmol/L Chloride Level 103 98-107 mmol/L Carbon Dioxide Level 26 20-31 mmol/L Anion Gap 11 5-15 Blood Urea Nitrogen 63 H 9-23 mg/dL Creatinine 1.80 H 0.550-1.02 mg/dL Glomerular Filtration Rate Calc 29 >90 mL/min BUN/Creatinine Ratio 35.0 H 10.0-20.0 Serum Glucose 66 L 74-106 mg/dL Calcium Level 9.0 8.7-10.4 mg/dL Total Bilirubin 2.1 H 0.2-1.0 mg/dL Aspartate Amino Transferase (AST) 13 13-40 U/L Alanine Aminotransferase (ALT) 10 7-40 U/L Alkaline Phosphatase 97 46-116 U/L Total Protein 5.2 L 5.7-8.2 g/dL Albumin 3.1 L 3.2-4.8 g/dL Urine Color Light-yellow Yellow Urine Clarity Clear Clear Urine pH 5.0 5.0-9.0 Urine Specific [place] 1.009 1.001-1.035 Urine Protein Negative Negative Urine Ketones Negative Negative Urine Blood Negative Negative /uL Urine Nitrite Negative Negative Urine Bilirubin Negative Negative Urine Urobilinogen Normal Negative mg/dL Urine Leukocyte Esterase 3+ Negative /uL Urine RBC None seen 0 - 4 /hpf Urine Microscopic WBC 44 H 0-5 /HPF Urine Squamous Epithelial Cells Few <5 /hpf Urine Bacteria None seen None Seen /hpf Urine Hyaline Casts Few 0 - 2 /lpf Urine Yeast (Budding) Moderate None Seen /hpf Urine Glucose Normal Normal mg/dL Hemoglobin A1c < 3.8 <5.7 % A1C Troponin I High Sensitivity 26 </=34 ng/L Test 05/23/25 21:56 Range/Units Lactic Acid Level 1.1 0.4-2.0 mmol/L Lipase 24 12-53 U/L Microbiology Date/Time Source Procedure Growth Status 05/23/25 22:00 Blood Blood Culture - Preliminary NO GROWTH AFTER 24 HOURS OF INCUBATION. Resulted Assessment 1. Possible pericolonic abscess although after reviewing with the radiologist, he is not convinced that this really in the is an abscess. Plan/Recommendation 1. We will order a CT of the abdomen and pelvis with oral contrast per radiology's recommendation. Plan discussed with: Patient SERENE HUIZAR MD May 25, 2025 15:27
[2025-05-25 17:00] VITALS: BP 101/57; PULSE 92; RESP 20; TEMP 98.4; O2SAT 96
--- NOTE | 2025-05-25 18:32 | DVH ---
EXAM: CT CT AB PEL WITH ORAL CON ONLY HISTORY: sigmoid abscess TECHNIQUE: Volumetric multidetector CT images of the abdomen and pelvis were obtained after the admin istration of intravenous contrast. All CT scans at this facility use dose modulation, iterative recon struction, and/or weight based dosing when appropriate to reduce radiation dose to as low as reasonab ly achievable. COMPARISON: CT CT AB PEL WO CON-NO ORAL OR IV on DOS: 05/23/25 FINDINGS: [LOWER CHEST]: Small right and trace left pleural effusions. Atelectasis in bilateral lung bases. [LIVER]: Normal hepatic size without suspicious focal lesion. [GALLBLADDER AND BILIARY TREE]: Trace layering biliary sludge [SPLEEN]: Unremarkable. [PANCREAS]: Unremarkable. [ADRENAL GLANDS]: Unremarkable [KIDNEYS]: No hydronephrosis. No nephroureterolithiasis. [BLADDER]: Espinal catheter decompression [REPRODUCTIVE ORGANS]: Unremarkable. [BOWEL/MESENTERY]: Stomach is normal. Minimal sigmoid diverticulosis. Oral contrast to the sigmoid co james/ descending colon. Small air-fluid collection along the anti mesenteric margin of the sigmoid col on measuring 6.1 x 2.6 cm. [ASCITES]: Absent [LYMPHADENOPATHY]: No pathologically enlarged lymph nodes by CT size criteria [VASCULATURE]: No aneurysmal dilatation. [ABDOMINAL WALL]: Unremarkable. [MUSCULOSKELETAL]: No acute fracture or aggressive focal osseous lesion. Multifocal degenerative prasad ge of the visualized spine. IMPRESSION: 1. Small pericolonic presumed abscess along the anti mesenteric margin of the sigmoid colon, similar in size when compared to prior examination, status post prior percutaneous drainage removal. 2. Trace bilateral pleural effusions.
[2025-05-25 20:00] VITALS: PULSE 74; RESP 18
[2025-05-25 21:00] VITALS: BP 116/57; PULSE 97; RESP 18; TEMP 98.4; O2SAT 100
[2025-05-26] VITALS (7 sets, daily range): BP systolic 100–112; BP diastolic 47–61; PULSE 65–101; RESP 16–21; TEMP 98.1–98.7; O2SAT 96–100
--- NOTE | 2025-05-26 08:18 | DVHPN2 ---
Reviewed: Care Plan, H&P, Labs, Medications, Previous Orders, Radiology Changes from previous H/P or p: No Changes Gastrointestinal: Abdominal Pain Objective Vitals Vital Signs Date Time Temp Pulse Resp B/P (MAP) Pulse Ox O2 Delivery O2 Flow Rate FiO2 05/26/25 05:00 98.4 92 18 100/61 (74) 100 98.4 05/25/25 20:00 Room Air* 0 21 Intake/Output Intake and Output 05/26/25 07:00 Intake Total 1800 ml Output Total 750 ml Balance 1050 ml Intake Oral 1800 ml Output Urine Total 750 ml Medications Current Medications Medications Dose Ordered Sig/Sravan Route Start Time Stop Time Status Last Admin Dose Admin Piperacillin Sod/ Tazobactam Sod 100 ml @ 25 mls/hr Q8HR IV 05/24/25 14:00 05/26/25 06:36 25 MLS/HR Acetaminophen/ Hydrocodone Bitart 1 tab Q4HP PRN PO 05/24/25 11:15 05/25/25 13:15 1 TAB Ondansetron HCl 4 mg Q4HP PRN IV 05/24/25 11:15 Acetaminophen 650 mg Q6HP PRN PO 05/24/25 11:15 Morphine Sulfate 2 mg Q4HPRN PRN IV 05/24/25 11:15 Dextrose 50 ml UD PRN IV 05/24/25 11:15 05/24/25 20:02 50 ML Pantoprazole Sodium 40 mg DAILY IV 05/25/25 10:00 05/25/25 10:49 40 MG Allopurinol 100 mg DAILY PO 05/25/25 10:00 05/25/25 10:47 100 MG Amiodarone HCl 200 mg BID PO 05/24/25 22:00 05/25/25 22:26 200 MG Amlodipine Besylate 5 mg DAILY PO 05/25/25 10:00 Hold Apixaban 2.5 mg BID PO 05/24/25 22:00 05/25/25 22:26 2.5 MG Atorvastatin Calcium 20 mg DAILY PO 05/25/25 10:00 05/25/25 10:47 20 MG Cilostazol 100 mg BID PO 05/24/25 22:00 05/25/25 22:27 100 MG Gabapentin 300 mg BID PO 05/24/25 22:00 05/25/25 22:27 300 MG Hydroxychloroquine Sulfate 200 mg DAILY PO 05/25/25 10:00 05/25/25 10:47 200 MG Midodrine 10 mg BID PO 05/24/25 22:00 05/25/25 22:28 10 MG Sotalol HCl 40 mg BID PO 05/24/25 22:00 Hold Lactulose 15 ml DAILY PO 05/25/25 10:00 05/25/25 10:49 15 ML Levothyroxine Sodium 112 mcg QAM@0600 PO 05/25/25 06:00 05/26/25 06:43 112 MCG Patient Own Medication 750 mg BID PO 05/24/25 22:00 Hold Patient Own Medication 1 tab BID PO 05/24/25 22:00 Furosemide 40 mg DAILY IV 05/25/25 10:00 Diagnostic Test (Pha) 1 strip IQ4HR 05/24/25 20:00 05/26/25 04:00 1 STRIP Insulin Human Regular IQ4HR SC 05/24/25 20:00 Levothyroxine Sodium 25 mcg QAM@0600 PO 05/25/25 06:00 05/26/25 06:43 25 MCG Laboratory Results Laboratory Tests 05/25/25 03:46 Urinalysis Test 05/24/25 04:50 Urine Color Light-yellow (Yellow) Urine Clarity Clear (Clear) Urine pH 5.0 (5.0-9.0) Urine Specific [place] 1.009 (1.001-1.035) Urine Protein Negative (Negative) Urine Ketones Negative (Negative) Urine Blood Negative /uL (Negative) Urine Nitrite Negative (Negative) Urine Bilirubin Negative (Negative) Urine Urobilinogen Normal mg/dL (Negative) Urine Leukocyte Esterase 3+ /uL (Negative) Urine RBC None seen /hpf (0 - 4) Urine Microscopic WBC 44 /HPF (0-5) H Urine Squamous Epithelial Cells Few /hpf (<5) Urine Bacteria None seen /hpf (None Seen) Urine Hyaline Casts Few /lpf (0 - 2) Urine Yeast (Budding) Moderate /hpf (None Seen) Urine Glucose Normal mg/dL (Normal) Microbiology Microbiology Date/Time Source Procedure Growth Status 05/23/25 22:00 Blood Blood Culture - Preliminary NO GROWTH AFTER 48 HOURS OF INCUBATION. Resulted Labs and/or images reviewed: Labs reviewed by me, Image(s) reviewed by me Assessment/Plan Assessment/Plan Sepsis secondary to diverticular abscess Zosyn: Consult for surgeon Dr. Owen appreciated, per Radiology it is possibly not an abscess, ordered CT abdomen pelvis with oral contrast which shows small pericolonic abscess Septic shock AFib with a RVR Morbid obesity CKD 4 Diabetes type 2 AK I versus vasomotor nephropathy Chronic systolic versus diastolic congestive heart failure Bed-bound status UTI: Blood cultures negative Time Spent 66 minutes Advanced care planning time 20 minutes Patient is full code Plan discussed with: Patient My Orders Orders - ABHILASH GOMES MD Procedure Category Date Status Time * Surgical Consult CONS 05/25/25 Transmitted 12:48 Mrsa Screen ETHAN 05/25/25 In Process 14:52 Date of Service: May 26, 2025 Billing Provider: ABHILASH GOMES MD Common Visit Codes: [id number] CARE 30-74 MIN ABHILASH GOMES MD May 26, 2025 08:18
--- NOTE | 2025-05-26 11:18 | DVHINCON2 ---
Date of service: May 26, [address] Mikie Gibson Reason for Consultation Elevated creatinine History of Present Illness This is a 74-year-old female with history of Chronic kidney disease stage 4, hypertension, hyperlipidemia, obesity, type 2 diabetes, congestive heart failure, atrial fibrillation who was referred to the emergency room because of sigmoid colon abscess. Patient had a prolonged hospital stay here last month at which time he was noted to have an abscess in his abdomen which was drained. Started on hemodialysis and subsequently transferred to senior care facility at [place]. As per the history she was sent back to the hospital because of the abdominal pain/abscess. As per the history she had an abdominal drain which was removed. Nephrology has been consulted for continuation of dialysis. As per the history obtained from the patient her last dialysis was on Wednesday. She has been voiding well. Past Medical History Cardiovascular: AFIB, CHF, HTN, hyperipidemia Pulmonary: COPD Heme/Onc: Anemia NOS Renal/: Chronic renal insuff Endocrine: Diabetes Neuropathy PVD Obesity Past Surgical History Right chest HD catheter, Other (Right total knee replacement and left abscess drain), Tubal Ligation Family History: Cerebrovascular accident (CVA) G8 MOTHER Chronic obstructive pulmonary disease FH: CHF (congestive heart failure) G8 MOTHER Hypertension G8 MOTHER Family History Hypertension, Other (Mom with hypertension, CHF, and stroke) Social History No active history of smoking ,alcohol or drug abuse Allergies: Coded Allergies: Zinc Oxide (Verified Allergy, Mild, 03/07/25) Sulfa Antibiotics (Verified Allergy, Unknown, 01/16/22) Home Meds Active Scripts Prednisone (Prednisone) 20 Mg Tab, 20 MG PO BID for 5 Days, #10 TAB Prov:VÍCTOR HAMILTON [employer] SCIENTIST 01/20/22 Reported Medications Amiodarone HCl (Amiodarone HCl) 200 Mg Tab, 1 TAB PO BID 03/20/25 Levothyroxine Sodium (Levothyroxine Sodium) 137 Mcg Tab, 1 TAB PO DAILY 03/20/25 Ropinirole Hydrochloride (Ropinirole Hcl) 0.25 Mg Tab, 1 TAB PO BID for 90 Days, #180 02/26/25 Spironolactone (Spironolactone) 50 Mg Tab, 1 TAB PO DAILY for 90 Days, #90 02/26/25 Meclizine HCl (Meclizine Hydrochloride) 25 Mg Tab, 1 TAB PO DAILY PRN for 90 Days, #90 02/26/25 Midodrine Hcl (Midodrine Hcl) 10 Mg Tab, 1 TAB PO BID for 90 Days, #180 02/26/25 Potassium Chloride (Potassium Chloride ER) 20 Meq Tab, 1 TAB PO BID for 90 Days, #180 02/26/25 Fluticasone-Salmeterol (Fluticasone Propionate/SA 500-50 Mcg/Dose) 1 Aer Aer, 1 PUFF PO BID for 30 Days, #60 02/26/25 Lactulose (Lactulose) 10 Gm/15 Ml Yoselyn, 15 ML PO DAILY for 30 Days, #450 02/26/25 Gabapentin (Gabapentin) 300 Mg Cap, 300 MG PO BID 11/08/24 Pantoprazole Sodium Sesquihydr (Pantoprazole Sodium) 40 Mg Tab, 1 TAB PO DAILY 11/08/24 Atorvastatin Calcium (ATORVASTATIN CALCIUM) 20 Mg Tab, 1 TAB PO DAILY 11/08/24 Bumetanide (Bumetanide) 2 Mg Tab, 1 TAB PO BID 11/08/24 Apixaban Base (ELIQUIS) 2.5 Mg Tab, 1 TAB PO BID 11/08/24 Loperamide HCl (Imodium A-D) 1 Mg/7.5 Ml Liq, 1 MG PO, LIQ 01/17/22 Clobetasol Propionate (Clobetasol Propionate) 0.05 % Oin, 1 APPLIC TOP BID, #15 GRAMS 01/17/22 Hydroxychloroquine Sulfate (PLAQUENIL) 200 Mg Tab, 1 TAB PO DAILY, #180 TAB 3 Refills 01/17/22 Furosemide (Furosemide) 40 Mg Tab, 1 TAB PO DAILY, #30 TAB 5 Refills 01/17/22 Fluticasone-Salmeterol (Advair Diskus 500/50) 1 Puff Ih, 1 PUFF INH BID, #1 INHALER 5 Refills 01/17/22 Albuterol Sulfate (VENTOLIN MDI) 90 Mcg Ih, 90 MCG IN Q6HP for 30 Days, MCG 01/17/22 Allopurinol (Allopurinol) 100 Mg Tab, 100 MG PO DAILY for 30 Days, MG 01/17/22 Amlodipine Besylate (Amlodipine Besylate) 5 Mg Tab, 5 MG PO DAILY for 30 Days, MG 01/17/22 Pantoprazole Sodium (PANTOPRAZOLE SODIUM) 40 Mg Inj, 40 MG IV DAILY, INJ 01/17/22 Cilostazol (Cilostazol) 100 Mg Tab, 100 MG PO BID for 30 Days, MG 01/17/22 Methocarbamol (Methocarbamol) 750 Mg Tab, 750 MG PO BID, TAB 01/17/22 Sotalol Hcl (Sotalol Hcl) 80 Mg Tab, 0.5 TAB PO BID, #60 TAB 5 Refills 01/17/22 Meclizine HCl (Meclizine 25) 25 Mg Tab, 25 MG PO BID, TAB 01/17/22 Review of Systems 12 point review of system negative except as stated in the HPI Vital Signs Vital Signs Date Time Temp Pulse Resp B/P (MAP) Pulse Ox O2 Delivery O2 Flow Rate FiO2 05/26/25 09:48 107/65 05/26/25 09:00 98.1 65 16 100 98.1 05/26/25 08:00 Room Air* 0 21 Physical Exam Awake alert oriented x3 HEENT: Normocephalic, no JVD Lungs: Bilateral good air entry CVS: S1, S2 regular rate rhythm Abdomen: Soft, bowel sounds present SPINE SUPERVISOR: No focal deficits Extremities: No edema Labs/Diagnostic Data Labs Test 05/26/25 03:58 05/25/25 03:46 05/24/25 04:50 05/24/25 04:30 Range/Units POC Glucose 84 70-106 mg/dl White Blood Count 5.3 4.4-10.8 10^3/uL Red Blood Count 2.61 L 4.0-5.20 10^6/uL Hemoglobin 8.0 L 12.2-16.2 g/dL Hematocrit 23.6 L 36.0-46.0 % Mean Corpuscular Volume 90.5 80.0-100.0 fL Mean Corpuscular Hemoglobin 30.5 28.0-32.0 pg Mean Corpuscular Hemoglobin Concent 33.7 32.0-36.0 g/dL Red Cell Distribution Width 18.1 H 11.8-14.3 % Platelet Count 140 140-450 10^3/uL Mean Platelet Volume 8.4 6.9-10.8 fL Neutrophils (%) (Auto) 82.7 H 37.0-80.0 % Lymphocytes (%) (Auto) 9.0 L 10.0-50.0 % Monocytes (%) (Auto) 5.5 0.0-12.0 % Eosinophils (%) (Auto) 2.5 0.0-7.0 % Basophils (%) (Auto) 0.3 0.0-2.0 % Neutrophils # (Auto) 4.4 1.6-8.6 10 ^3/uL Lymphocytes # (Auto) 0.5 0.4-5.4 10 ^3/uL Monocytes # (Auto) 0.3 0-1.3 10 ^3/uL Eosinophils # (Auto) 0.1 0-0.8 10 ^3/uL Basophils # (Auto) 0 0-0.2 10 ^3/uL Nucleated Red Blood Cells 0.0 % Sodium Level 140 136-145 mmol/L Potassium Level 4.3 3.5-5.1 mmol/L Chloride Level 103 98-107 mmol/L Carbon Dioxide Level 26 20-31 mmol/L Anion Gap 11 5-15 Blood Urea Nitrogen 63 H 9-23 mg/dL Creatinine 1.80 H 0.550-1.02 mg/dL Glomerular Filtration Rate Calc 29 >90 mL/min BUN/Creatinine Ratio 35.0 H 10.0-20.0 Serum Glucose 66 L 74-106 mg/dL Calcium Level 9.0 8.7-10.4 mg/dL Total Bilirubin 2.1 H 0.2-1.0 mg/dL Aspartate Amino Transferase (AST) 13 13-40 U/L Alanine Aminotransferase (ALT) 10 7-40 U/L Alkaline Phosphatase 97 46-116 U/L Total Protein 5.2 L 5.7-8.2 g/dL Albumin 3.1 L 3.2-4.8 g/dL Urine Color Light-yellow Yellow Urine Clarity Clear Clear Urine pH 5.0 5.0-9.0 Urine Specific [place] 1.009 1.001-1.035 Urine Protein Negative Negative Urine Ketones Negative Negative Urine Blood Negative Negative /uL Urine Nitrite Negative Negative Urine Bilirubin Negative Negative Urine Urobilinogen Normal Negative mg/dL Urine Leukocyte Esterase 3+ Negative /uL Urine RBC None seen 0 - 4 /hpf Urine Microscopic WBC 44 H 0-5 /HPF Urine Squamous Epithelial Cells Few <5 /hpf Urine Bacteria None seen None Seen /hpf Urine Hyaline Casts Few 0 - 2 /lpf Urine Yeast (Budding) Moderate None Seen /hpf Urine Glucose Normal Normal mg/dL Hemoglobin A1c < 3.8 <5.7 % A1C Troponin I High Sensitivity 26 </=34 ng/L Test 05/23/25 21:56 Range/Units Lactic Acid Level 1.1 0.4-2.0 mmol/L Lipase 24 12-53 U/L Microbiology Date/Time Source Procedure Growth Status 05/23/25 22:00 Blood Blood Culture - Preliminary NO GROWTH AFTER 48 HOURS OF INCUBATION. Resulted Assessment Chronic kidney disease stage 4 Bed-bound History of sigmoid abscess History of alcohol abuse Anemia in Chronic kidney disease Plan/Recommendation Renal function has been stable. Urine output has been adequate. No acute indication for renal replacement therapy we will continue to monitor labs closely and order dialysis accordingly. Labs in a.m.. Plan discussed with: Patient VÍCTOR JUDGE MD May 26, 2025 11:18
--- NOTE | 2025-05-26 12:51 | DVHPN2 ---
Progress Note - Dictate Date Seen: May 26, 2025 Medical Necessity Reason Pt with a Central, PICC or Fol: No Subjective E: no major events o/n. no complaints. vital signs Vital Sign Date Time Temp Pulse Resp B/P (MAP) Pulse Ox O2 Delivery O2 Flow Rate FiO2 05/26/25 09:48 107/65 05/26/25 09:00 98.1 65 16 100 98.1 05/26/25 08:00 Room Air* 0 21 Total Intake and Output 05/25/25 05/25/25 05/26/25 15:00 23:00 07:00 Intake Total 1800 ml 0 ml Output Total 450 ml 300 ml Balance 1350 ml -300 ml medications Current Medications Medications Dose Ordered Sig/Sravan Route Start Time Stop Time Status Last Admin Dose Admin Piperacillin Sod/ Tazobactam Sod 100 ml @ 25 mls/hr Q8HR IV 05/24/25 14:00 05/26/25 06:36 25 MLS/HR Acetaminophen/ Hydrocodone Bitart 1 tab Q4HP PRN PO 05/24/25 11:15 05/25/25 13:15 1 TAB Ondansetron HCl 4 mg Q4HP PRN IV 05/24/25 11:15 Acetaminophen 650 mg Q6HP PRN PO 05/24/25 11:15 Morphine Sulfate 2 mg Q4HPRN PRN IV 05/24/25 11:15 Dextrose 50 ml UD PRN IV 05/24/25 11:15 05/24/25 20:02 50 ML Pantoprazole Sodium 40 mg DAILY IV 05/25/25 10:00 05/26/25 09:46 40 MG Allopurinol 100 mg DAILY PO 05/25/25 10:00 05/26/25 09:46 100 MG Amiodarone HCl 200 mg BID PO 05/24/25 22:00 05/26/25 09:46 200 MG Apixaban 2.5 mg BID PO 05/24/25 22:00 05/26/25 09:46 2.5 MG Atorvastatin Calcium 20 mg DAILY PO 05/25/25 10:00 05/26/25 09:49 20 MG Cilostazol 100 mg BID PO 05/24/25 22:00 05/26/25 09:46 100 MG Gabapentin 300 mg BID PO 05/24/25 22:00 05/26/25 09:46 300 MG Hydroxychloroquine Sulfate 200 mg DAILY PO 05/25/25 10:00 05/26/25 09:46 200 MG Midodrine 10 mg BID PO 05/24/25 22:00 05/26/25 09:46 10 MG Sotalol HCl 40 mg BID PO 05/24/25 22:00 Hold Lactulose 15 ml DAILY PO 05/25/25 10:00 05/25/25 10:49 15 ML Levothyroxine Sodium 112 mcg QAM@0600 PO 05/25/25 06:00 05/26/25 06:43 112 MCG Patient Own Medication 750 mg BID PO 05/24/25 22:00 Hold Patient Own Medication 1 tab BID PO 05/24/25 22:00 Furosemide 40 mg DAILY IV 05/25/25 10:00 05/26/25 09:48 40 MG Diagnostic Test (Pha) 1 strip IQ4HR 05/24/25 20:00 05/26/25 12:03 1 STRIP Insulin Human Regular IQ4HR SC 05/24/25 20:00 Levothyroxine Sodium 25 mcg QAM@0600 PO 05/25/25 06:00 05/26/25 06:43 25 MCG objective GEN: NAD ABD: obese. soft. NT/ND. laboratory and microbiology Laboratory Tests 05/25/25 03:46 Test 05/25/25 03:46 Range/Units Serum Glucose 66 L 74-106 mg/dL Assessment/Plan A: 1. pericolonic abscess P: 1. IR consult for percutaneous drainage. Plan discussed with: Patient SERENE HUIZAR MD May 26, 2025 12:51
[2025-05-27] VITALS (9 sets, daily range): BP systolic 95–124; BP diastolic 49–71; PULSE 65–92; RESP 17–20; TEMP 97.8–98.9; O2SAT 95–100
[2025-05-27 06:49] LABS: Chloride 99 mmol/L (98-107); Potassium 4.5 mmol/L (3.5-5.1)
[2025-05-27 06:50] LABS: Anion Gap 11 (5-15); Carbon Dioxide 25 mmol/L (20-31)
[2025-05-27 06:55] LABS: Glucose 84 mg/dL (74-106)
[2025-05-27 06:56] LABS: BUN/Creatinine Ratio 29.2 (10.0-20.0); Blood Urea Nitrogen 77 mg/dL (9-23); Calcium 8.4 mg/dL (8.7-10.4); Sodium 135 mmol/L (136-145)
--- NOTE | 2025-05-27 08:27 | DVHPN2 ---
Reviewed: Care Plan, H&P, Labs, Medications, Previous Orders, Radiology Changes from previous H/P or p: No Changes Gastrointestinal: Abdominal Pain Objective Vitals Vital Signs Date Time Temp Pulse Resp B/P (MAP) Pulse Ox O2 Delivery O2 Flow Rate FiO2 05/27/25 08:00 78 18 97 Room Air* 0 21 05/27/25 04:58 98.9 103/51 (68) 98.9 Intake/Output Intake and Output 05/27/25 07:00 Intake Total 1140 ml Output Total 850 ml Balance 290 ml Intake Oral 940 ml IV Total 200 ml Output Urine Total 850 ml Medications Current Medications Medications Dose Ordered Sig/Sravan Route Start Time Stop Time Status Last Admin Dose Admin Piperacillin Sod/ Tazobactam Sod 100 ml @ 25 mls/hr Q8HR IV 05/24/25 14:00 05/27/25 05:13 25 MLS/HR Acetaminophen/ Hydrocodone Bitart 1 tab Q4HP PRN PO 05/24/25 11:15 05/25/25 13:15 1 TAB Ondansetron HCl 4 mg Q4HP PRN IV 05/24/25 11:15 Acetaminophen 650 mg Q6HP PRN PO 05/24/25 11:15 Morphine Sulfate 2 mg Q4HPRN PRN IV 05/24/25 11:15 Dextrose 50 ml UD PRN IV 05/24/25 11:15 05/24/25 20:02 50 ML Pantoprazole Sodium 40 mg DAILY IV 05/25/25 10:00 05/26/25 09:46 40 MG Allopurinol 100 mg DAILY PO 05/25/25 10:00 05/26/25 09:46 100 MG Amiodarone HCl 200 mg BID PO 05/24/25 22:00 05/26/25 20:31 200 MG Apixaban 2.5 mg BID PO 05/24/25 22:00 05/26/25 20:30 2.5 MG Atorvastatin Calcium 20 mg DAILY PO 05/25/25 10:00 05/26/25 09:49 20 MG Cilostazol 100 mg BID PO 05/24/25 22:00 05/26/25 20:30 100 MG Gabapentin 300 mg BID PO 05/24/25 22:00 05/26/25 20:31 300 MG Hydroxychloroquine Sulfate 200 mg DAILY PO 05/25/25 10:00 05/26/25 09:46 200 MG Midodrine 10 mg BID PO 05/24/25 22:00 05/26/25 20:31 10 MG Sotalol HCl 40 mg BID PO 05/24/25 22:00 Hold Lactulose 15 ml DAILY PO 05/25/25 10:00 05/25/25 10:49 15 ML Levothyroxine Sodium 112 mcg QAM@0600 PO 05/25/25 06:00 05/27/25 05:13 112 MCG Patient Own Medication 750 mg BID PO 05/24/25 22:00 Hold Patient Own Medication 1 tab BID PO 05/24/25 22:00 05/26/25 20:38 1 TAB Furosemide 40 mg DAILY IV 05/25/25 10:00 05/26/25 09:48 40 MG Diagnostic Test (Pha) 1 strip IQ4HR 05/24/25 20:00 05/27/25 04:00 1 STRIP Insulin Human Regular IQ4HR SC 05/24/25 20:00 05/26/25 20:39 2 UNITS Levothyroxine Sodium 25 mcg QAM@0600 PO 05/25/25 06:00 05/27/25 05:13 25 MCG Laboratory Results Laboratory Tests 05/25/25 03:46 05/27/25 05:41 Chemistry Test 05/27/25 05:41 Calcium Level 8.4 mg/dL (8.7-10.4) L Urinalysis Test 05/24/25 04:50 Urine Color Light-yellow (Yellow) Urine Clarity Clear (Clear) Urine pH 5.0 (5.0-9.0) Urine Specific [place] 1.009 (1.001-1.035) Urine Protein Negative (Negative) Urine Ketones Negative (Negative) Urine Blood Negative /uL (Negative) Urine Nitrite Negative (Negative) Urine Bilirubin Negative (Negative) Urine Urobilinogen Normal mg/dL (Negative) Urine Leukocyte Esterase 3+ /uL (Negative) Urine RBC None seen /hpf (0 - 4) Urine Microscopic WBC 44 /HPF (0-5) H Urine Squamous Epithelial Cells Few /hpf (<5) Urine Bacteria None seen /hpf (None Seen) Urine Hyaline Casts Few /lpf (0 - 2) Urine Yeast (Budding) Moderate /hpf (None Seen) Urine Glucose Normal mg/dL (Normal) Microbiology Microbiology Date/Time Source Procedure Growth Status 05/25/25 14:30 Nose MRSA Screen - Final Methicillin Resistant S.aureus Complete 05/23/25 22:00 Blood Blood Culture - Preliminary NO GROWTH AFTER 72 HOURS OF INCUBATION. Resulted Labs and/or images reviewed: Labs reviewed by me, Image(s) reviewed by me Assessment/Plan Assessment/Plan Sepsis secondary to diverticular abscess Zosyn: Consult for surgeon Dr. Owen appreciated, per Radiology it is possibly not an abscess, ordered CT abdomen pelvis with oral contrast which shows small pericolonic abscess Septic shock AFib with RVR Morbid obesity CKD 4 Diabetes type 2 SCOT versus vasomotor nephropathy MRSA screen positive Bactroban nasal ointment Chronic systolic versus diastolic congestive heart failure Bed-bound status UTI: Blood cultures negative, urine cultures pending Daughter Johanny [phone] at bed side Time Spent 66 minutes Advanced care planning time 20 minutes Patient is full code Plan discussed with: Patient My Orders Orders - ABHILASH GOMES MD Procedure Category Date Status Time Cleanse Wound With EBONY 05/26/25 In Process Mild Soap A 11:52 * Dietary Consult CONS 05/26/25 Transmitted 17:50 Date of Service: May 27, 2025 Billing Provider: ABHILASH GOMES MD Common Visit Codes: [id number] CARE 30-74 MIN ABHILASH GOMES MD May 27, 2025 08:27
[2025-05-27] MEDS: ACETAMINOPHEN 325 MG TAB PO PRN (10:13)
[2025-05-27] MEDS: MUPIROCIN 2% OINT 15gm or 22gm FOR MRSA NARES EACHNOSTRI SCH (10:18)
--- NOTE | 2025-05-27 16:09 | DVHPN2 ---
Progress Note - Dictate Date Seen: May 27, 2025 Medical Necessity Reason Pt with a Central, PICC or Fol: No Subjective No complaints. vital signs Vital Sign Date Time Temp Pulse Resp B/P (MAP) Pulse Ox O2 Delivery O2 Flow Rate FiO2 05/27/25 13:00 97.8 65 18 124/71 (88) 100 97.8 05/27/25 08:00 Room Air* 0 21 Total Intake and Output 05/26/25 05/26/25 05/27/25 15:00 23:00 07:00 Intake Total 300 ml 590 ml 250 ml Output Total 550 ml 300 ml Balance 300 ml 40 ml -50 ml medications Current Medications Medications Dose Ordered Sig/Sravan Route Start Time Stop Time Status Last Admin Dose Admin Piperacillin Sod/ Tazobactam Sod 100 ml @ 25 mls/hr Q8HR IV 05/24/25 14:00 05/27/25 14:08 25 MLS/HR Acetaminophen/ Hydrocodone Bitart 1 tab Q4HP PRN PO 05/24/25 11:15 05/25/25 13:15 1 TAB Ondansetron HCl 4 mg Q4HP PRN IV 05/24/25 11:15 Acetaminophen 650 mg Q6HP PRN PO 05/24/25 11:15 05/27/25 10:13 650 MG Morphine Sulfate 2 mg Q4HPRN PRN IV 05/24/25 11:15 Dextrose 50 ml UD PRN IV 05/24/25 11:15 05/24/25 20:02 50 ML Pantoprazole Sodium 40 mg DAILY IV 05/25/25 10:00 05/27/25 09:32 40 MG Allopurinol 100 mg DAILY PO 05/25/25 10:00 05/27/25 09:27 100 MG Amiodarone HCl 200 mg BID PO 05/24/25 22:00 05/27/25 09:29 200 MG Apixaban 2.5 mg BID PO 05/24/25 22:00 05/27/25 10:32 2.5 MG Atorvastatin Calcium 20 mg DAILY PO 05/25/25 10:00 05/27/25 09:29 20 MG Cilostazol 100 mg BID PO 05/24/25 22:00 05/27/25 09:29 100 MG Gabapentin 300 mg BID PO 05/24/25 22:00 05/27/25 09:29 300 MG Hydroxychloroquine Sulfate 200 mg DAILY PO 05/25/25 10:00 05/27/25 09:29 200 MG Midodrine 10 mg BID PO 05/24/25 22:00 05/27/25 09:29 10 MG Sotalol HCl 40 mg BID PO 05/24/25 22:00 Hold Lactulose 15 ml DAILY PO 05/25/25 10:00 05/25/25 10:49 15 ML Levothyroxine Sodium 112 mcg QAM@0600 PO 05/25/25 06:00 05/27/25 05:13 112 MCG Patient Own Medication 750 mg BID PO 05/24/25 22:00 Hold Patient Own Medication 1 tab BID PO 05/24/25 22:00 05/27/25 10:32 1 TAB Furosemide 40 mg DAILY IV 05/25/25 10:00 05/27/25 09:30 40 MG Levothyroxine Sodium 25 mcg QAM@0600 PO 05/25/25 06:00 05/27/25 05:13 25 MCG Mupirocin 1 applic BID EACHNOSTRI 05/27/25 10:00 06/01/25 09:59 05/27/25 10:18 1 APPLIC Diagnostic Test (Pha) 1 strip ACHS 05/27/25 17:00 UNV Diagnostic Test (Pha) 1 strip ACHS 05/27/25 17:00 UNV Insulin Human Regular ACHS SC 05/27/25 17:00 UNV objective Awake alert oriented x3 HEENT: Normocephalic, no JVD Lungs: Bilateral good air entry CVS: S1, S2 regular rate rhythm Abdomen: Soft, bowel sounds present DRAFTER CONSTRUCTION: No focal deficits Extremities: No edema laboratory and microbiology Laboratory Tests 05/27/25 05:41 05/25/25 03:46 Test 05/27/25 05:41 Range/Units Serum Glucose 84 74-106 mg/dL Problem List Chronic kidney disease stage 4 Bed-bound History of sigmoid abscess History of alcohol abuse Anemia in Chronic kidney disease Assessment/Plan GFR is at 18 mL/minute. No acute indication for renal replacement therapy. We will monitor BMP closely. Continue with diuresis. Labs in a.m.. Plan discussed with: Patient VÍCTOR JUDGE MD May 27, 2025 16:09
[2025-05-27] MEDS: InsuLIN REG 1unit/0.01ml Soln (100units/ml) SC SCH (17:00)
[2025-05-27] MEDS ORDERED: ACCU-CHEK COMFORT CURVE STRIP VI SCH (17:00)
[2025-05-27] MEDS: ACCU-CHEK COMFORT CURVE STRIP VI SCH (17:11)
[2025-05-28] VITALS (8 sets, daily range): BP systolic 99–116; BP diastolic 50–61; PULSE 72–99; RESP 16–18; TEMP 97.4–98.7; O2SAT 97–100
[2025-05-28 07:30] LABS: Chloride 99 mmol/L (98-107); Potassium 4.3 mmol/L (3.5-5.1)
[2025-05-28 07:31] LABS: Anion Gap 13 (5-15); Carbon Dioxide 22 mmol/L (20-31)
[2025-05-28 07:36] LABS: BUN/Creatinine Ratio 20.5 (10.0-20.0); Glucose 88 mg/dL (74-106)
[2025-05-28 07:44] LABS: Blood Urea Nitrogen 63 mg/dL (9-23); Calcium 8.6 mg/dL (8.7-10.4); Sodium 134 mmol/L (136-145)
--- NOTE | 2025-05-28 09:33 | DVHPN2 ---
Reviewed: Care Plan, H&P, Labs, Medications, Previous Orders, Radiology Changes from previous H/P or p: No Changes Gastrointestinal: Abdominal Pain Objective Vitals Vital Signs Date Time Temp Pulse Resp B/P (MAP) Pulse Ox O2 Delivery O2 Flow Rate FiO2 05/28/25 09:26 108/60 05/28/25 09:00 98.3 99 18 100 98.3 05/27/25 20:00 Nasal Cannula* 3 32 Intake/Output Intake and Output 05/28/25 07:00 Intake Total 1220 ml Output Total 975 ml Balance 245 ml Intake Oral 920 ml IV Total 300 ml Output Urine Total 975 ml Medications Current Medications Medications Dose Ordered Sig/Sravan Route Start Time Stop Time Status Last Admin Dose Admin Piperacillin Sod/ Tazobactam Sod 100 ml @ 25 mls/hr Q8HR IV 05/24/25 14:00 05/28/25 05:37 25 MLS/HR Acetaminophen/ Hydrocodone Bitart 1 tab Q4HP PRN PO 05/24/25 11:15 05/25/25 13:15 1 TAB Ondansetron HCl 4 mg Q4HP PRN IV 05/24/25 11:15 Acetaminophen 650 mg Q6HP PRN PO 05/24/25 11:15 05/27/25 19:52 650 MG Morphine Sulfate 2 mg Q4HPRN PRN IV 05/24/25 11:15 Dextrose 50 ml UD PRN IV 05/24/25 11:15 05/24/25 20:02 50 ML Pantoprazole Sodium 40 mg DAILY IV 05/25/25 10:00 05/28/25 09:26 40 MG Allopurinol 100 mg DAILY PO 05/25/25 10:00 05/28/25 09:27 100 MG Amiodarone HCl 200 mg BID PO 05/24/25 22:00 05/28/25 09:27 200 MG Apixaban 2.5 mg BID PO 05/24/25 22:00 05/27/25 21:20 2.5 MG Atorvastatin Calcium 20 mg DAILY PO 05/25/25 10:00 05/28/25 09:27 20 MG Cilostazol 100 mg BID PO 05/24/25 22:00 05/28/25 09:27 100 MG Gabapentin 300 mg BID PO 05/24/25 22:00 05/28/25 09:27 300 MG Hydroxychloroquine Sulfate 200 mg DAILY PO 05/25/25 10:00 05/28/25 09:27 200 MG Midodrine 10 mg BID PO 05/24/25 22:00 05/28/25 09:27 10 MG Sotalol HCl 40 mg BID PO 05/24/25 22:00 Hold Lactulose 15 ml DAILY PO 05/25/25 10:00 05/25/25 10:49 15 ML Levothyroxine Sodium 112 mcg QAM@0600 PO 05/25/25 06:00 05/28/25 05:37 112 MCG Patient Own Medication 750 mg BID PO 05/24/25 22:00 Hold Patient Own Medication 1 tab BID PO 05/24/25 22:00 05/28/25 09:28 1 TAB Furosemide 40 mg DAILY IV 05/25/25 10:00 05/28/25 09:26 40 MG Levothyroxine Sodium 25 mcg QAM@0600 PO 05/25/25 06:00 05/28/25 05:37 25 MCG Mupirocin 1 applic BID EACHNOSTRI 05/27/25 10:00 06/01/25 09:59 05/27/25 21:20 1 APPLIC Diagnostic Test (Pha) 1 strip ACHS 05/27/25 17:00 05/28/25 06:49 1 STRIP Insulin Human Regular ACHS SC 05/27/25 17:00 Laboratory Results Laboratory Tests 05/25/25 03:46 05/28/25 05:49 Chemistry Test 05/28/25 05:49 Calcium Level 8.6 mg/dL (8.7-10.4) L Urinalysis Test 05/24/25 04:50 Urine Color Light-yellow (Yellow) Urine Clarity Clear (Clear) Urine pH 5.0 (5.0-9.0) Urine Specific [place] 1.009 (1.001-1.035) Urine Protein Negative (Negative) Urine Ketones Negative (Negative) Urine Blood Negative /uL (Negative) Urine Nitrite Negative (Negative) Urine Bilirubin Negative (Negative) Urine Urobilinogen Normal mg/dL (Negative) Urine Leukocyte Esterase 3+ /uL (Negative) Urine RBC None seen /hpf (0 - 4) Urine Microscopic WBC 44 /HPF (0-5) H Urine Squamous Epithelial Cells Few /hpf (<5) Urine Bacteria None seen /hpf (None Seen) Urine Hyaline Casts Few /lpf (0 - 2) Urine Yeast (Budding) Moderate /hpf (None Seen) Urine Glucose Normal mg/dL (Normal) Microbiology Microbiology Date/Time Source Procedure Growth Status 05/27/25 09:17 Urine - Midstream Clean Catch Urine Culture - Preliminary Resulted 05/25/25 14:30 Nose MRSA Screen - Final Methicillin Resistant S.aureus Complete 05/23/25 22:00 Blood Blood Culture - Preliminary NO GROWTH AFTER 72 HOURS OF INCUBATION. Resulted Labs and/or images reviewed: Labs reviewed by me, Image(s) reviewed by me Assessment/Plan Assessment/Plan Sepsis secondary to diverticular abscess Zosyn: Consult for surgeon Dr. Owen appreciated, per Radiology it is possibly not an abscess, ordered CT abdomen pelvis with oral contrast which shows small pericolonic abscess Septic shock AFib with RVR Morbid obesity CKD 4 Diabetes type 2 History of alcohol abuse SCOT versus vasomotor nephropathy MRSA screen positive Bactroban nasal ointment Chronic systolic versus diastolic congestive heart failure Bed-bound status UTI: Blood cultures negative, urine cultures pending Daughter Silvina [phone] at bed side Time Spent 68 minutes Advanced care planning time 20 minutes Patient is full code Plan discussed with: Patient My Orders Orders - ABHILASH GOMES MD Procedure Category Date Status Time Glucose Blood PHA 05/27/25 In Process (Accu-Chek Comfort 17:00 Insulin R (Human) PHA 05/27/25 In Process (Insulin R) 17:00 Date of Service: May 28, 2025 Billing Provider: ABHILASH GOMES MD Common Visit Codes: [id number] CARE 30-74 MIN ABHILASH GOMES MD May 28, 2025 09:33
--- NOTE | 2025-05-28 15:19 | DVHPN2 ---
Progress Note - Dictate Date Seen: May 28, 2025 Medical Necessity Reason Pt with a Central, PICC or Fol: No Subjective No complaints. labs reviewed with patient vital signs Vital Sign Date Time Temp Pulse Resp B/P (MAP) Pulse Ox O2 Delivery O2 Flow Rate FiO2 05/28/25 12:39 98.4 94 18 110/61 (77) 99 98.4 05/28/25 08:00 Room Air* 0 21 Total Intake and Output 05/27/25 05/27/25 05/28/25 15:00 23:00 07:00 Intake Total 700 ml 100 ml 420 ml Output Total 475 ml 500 ml Balance 700 ml -375 ml -80 ml medications Current Medications Medications Dose Ordered Sig/Sravan Route Start Time Stop Time Status Last Admin Dose Admin Piperacillin Sod/ Tazobactam Sod 100 ml @ 25 mls/hr Q8HR IV 05/24/25 14:00 05/28/25 14:33 25 MLS/HR Acetaminophen/ Hydrocodone Bitart 1 tab Q4HP PRN PO 05/24/25 11:15 05/25/25 13:15 1 TAB Ondansetron HCl 4 mg Q4HP PRN IV 05/24/25 11:15 Acetaminophen 650 mg Q6HP PRN PO 05/24/25 11:15 05/28/25 14:33 650 MG Morphine Sulfate 2 mg Q4HPRN PRN IV 05/24/25 11:15 Dextrose 50 ml UD PRN IV 05/24/25 11:15 05/24/25 20:02 50 ML Pantoprazole Sodium 40 mg DAILY IV 05/25/25 10:00 05/28/25 09:26 40 MG Allopurinol 100 mg DAILY PO 05/25/25 10:00 05/28/25 09:27 100 MG Amiodarone HCl 200 mg BID PO 05/24/25 22:00 05/28/25 09:27 200 MG Apixaban 2.5 mg BID PO 05/24/25 22:00 05/28/25 09:38 2.5 MG Atorvastatin Calcium 20 mg DAILY PO 05/25/25 10:00 05/28/25 09:27 20 MG Cilostazol 100 mg BID PO 05/24/25 22:00 05/28/25 09:27 100 MG Gabapentin 300 mg BID PO 05/24/25 22:00 05/28/25 09:27 300 MG Hydroxychloroquine Sulfate 200 mg DAILY PO 05/25/25 10:00 05/28/25 09:27 200 MG Midodrine 10 mg BID PO 05/24/25 22:00 05/28/25 09:27 10 MG Sotalol HCl 40 mg BID PO 05/24/25 22:00 Hold Lactulose 15 ml DAILY PO 05/25/25 10:00 05/25/25 10:49 15 ML Levothyroxine Sodium 112 mcg QAM@0600 PO 05/25/25 06:00 05/28/25 05:37 112 MCG Patient Own Medication 750 mg BID PO 05/24/25 22:00 Hold Patient Own Medication 1 tab BID PO 05/24/25 22:00 05/28/25 09:28 1 TAB Furosemide 40 mg DAILY IV 05/25/25 10:00 05/28/25 09:26 40 MG Levothyroxine Sodium 25 mcg QAM@0600 PO 05/25/25 06:00 05/28/25 05:37 25 MCG Mupirocin 1 applic BID EACHNOSTRI 05/27/25 10:00 06/01/25 09:59 05/28/25 09:38 1 APPLIC Diagnostic Test (Pha) 1 strip ACHS 05/27/25 17:00 05/28/25 11:56 1 STRIP Insulin Human Regular ACHS SC 05/27/25 17:00 objective Awake alert oriented x3 HEENT: Normocephalic, no JVD Lungs: Bilateral good air entry CVS: S1, S2 regular rate rhythm Abdomen: Soft, bowel sounds present 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 UOP hirsch sbeen marginal . Will schedule HD in AM . health program manager to make arrangements for outpatient HD 2 days a week . Epo with HD Dietary Evaluation Review Comments: 1) Add renal restriction to 60g CCHO diet 2) Initiate Nepro qd 3) Encourage optimal PO intake 4) Follow-up with cardiology and nephrology 5) Continue to monitor I&O, labs, and skin integrity Expected Outcomes/Goals: 1) appetite and labs to improve 2) wound to improve 3) f/u in 3-5 days Plan discussed with: Patient VÍCTOR JUDGE MD May 28, 2025 15:19
[2025-05-29] VITALS (7 sets, daily range): BP systolic 100–119; BP diastolic 49–60; PULSE 72–102; RESP 16–18; TEMP 97.7–99.1; O2SAT 96–100
[2025-05-29] MEDS: ALBUMIN 25% 100 ML IV STA ×2 (03:58→05:07)
[2025-05-29] MEDS: SODIUM CHL 0.9% 1000 ML BAG XX ONE (07:00)
--- NOTE | 2025-05-29 09:03 | DVHPN2 ---
Progress Note - Dictate Date Seen: May 29, 2025 Medical Necessity Reason Pt with a Central, PICC or Fol: No Subjective E: no major events o/n. no complaints. vital signs Vital Sign Date Time Temp Pulse Resp B/P (MAP) Pulse Ox O2 Delivery O2 Flow Rate FiO2 05/29/25 05:00 98.6 95 17 102/52 (69) 99 98.6 05/28/25 20:00 Nasal Cannula* 2 28 Total Intake and Output 05/28/25 05/28/25 05/29/25 15:00 23:00 07:00 Intake Total 100 ml 750 ml 500 ml Output Total 400 ml 500 ml Balance 100 ml 350 ml 0 ml medications Current Medications Medications Dose Ordered Sig/Sravan Route Start Time Stop Time Status Last Admin Dose Admin Piperacillin Sod/ Tazobactam Sod 100 ml @ 25 mls/hr Q8HR IV 05/24/25 14:00 05/28/25 22:25 25 MLS/HR Acetaminophen/ Hydrocodone Bitart 1 tab Q4HP PRN PO 05/24/25 11:15 05/25/25 13:15 1 TAB Ondansetron HCl 4 mg Q4HP PRN IV 05/24/25 11:15 Acetaminophen 650 mg Q6HP PRN PO 05/24/25 11:15 05/28/25 14:33 650 MG Morphine Sulfate 2 mg Q4HPRN PRN IV 05/24/25 11:15 Dextrose 50 ml UD PRN IV 05/24/25 11:15 05/24/25 20:02 50 ML Pantoprazole Sodium 40 mg DAILY IV 05/25/25 10:00 05/28/25 09:26 40 MG Allopurinol 100 mg DAILY PO 05/25/25 10:00 05/28/25 09:27 100 MG Amiodarone HCl 200 mg BID PO 05/24/25 22:00 05/28/25 22:24 200 MG Apixaban 2.5 mg BID PO 05/24/25 22:00 05/28/25 22:26 2.5 MG Atorvastatin Calcium 20 mg DAILY PO 05/25/25 10:00 05/28/25 09:27 20 MG Cilostazol 100 mg BID PO 05/24/25 22:00 05/28/25 22:24 100 MG Gabapentin 300 mg BID PO 05/24/25 22:00 05/28/25 22:24 300 MG Hydroxychloroquine Sulfate 200 mg DAILY PO 05/25/25 10:00 05/28/25 09:27 200 MG Midodrine 10 mg BID PO 05/24/25 22:00 05/28/25 22:25 10 MG Sotalol HCl 40 mg BID PO 05/24/25 22:00 Hold Lactulose 15 ml DAILY PO 05/25/25 10:00 05/25/25 10:49 15 ML Levothyroxine Sodium 112 mcg QAM@0600 PO 05/25/25 06:00 05/28/25 05:37 112 MCG Patient Own Medication 750 mg BID PO 05/24/25 22:00 Hold Patient Own Medication 1 tab BID PO 05/24/25 22:00 05/28/25 23:10 1 TAB Furosemide 40 mg DAILY IV 05/25/25 10:00 05/28/25 09:26 40 MG Levothyroxine Sodium 25 mcg QAM@0600 PO 05/25/25 06:00 05/28/25 05:37 25 MCG Mupirocin 1 applic BID EACHNOSTRI 05/27/25 10:00 06/01/25 09:59 05/28/25 09:38 1 APPLIC Diagnostic Test (Pha) 1 strip ACHS 05/27/25 17:00 05/29/25 06:08 1 STRIP Insulin Human Regular ACHS SC 05/27/25 17:00 objective GEN: NAD ABD: obese. soft. NT/ND. laboratory and microbiology Laboratory Tests 05/28/25 05:49 05/25/25 03:46 Test 05/28/25 05:49 Range/Units Serum Glucose 88 74-106 mg/dL Assessment/Plan A: 1. pericolonic abscess P: 1. IR consult for percutaneous drainage for today. if unable to drain, treat conservatively w/o surgery as she is clinically asymptomatic Dietary Evaluation Review Comments: 1) Add renal restriction to 60g CCHO diet 2) Initiate Nepro qd 3) Encourage optimal PO intake 4) Follow-up with cardiology and nephrology 5) Continue to monitor I&O, labs, and skin integrity Expected Outcomes/Goals: 1) appetite and labs to improve 2) wound to improve 3) f/u in 3-5 days Plan discussed with: Patient SERENE HUIZAR MD May 29, 2025 09:03
[2025-05-29 09:32] LABS: INR 1.26 (0.9-1.15); Partial Thromboplastin Time 34.5 SEC (24.5-34.5); Prothrombin Time 13.1 sec (9.3-11.8)
--- NOTE | 2025-05-29 10:59 | DVHPN2 ---
Reviewed: Care Plan, H&P, Labs, Medications, Previous Orders, Radiology Changes from previous H/P or p: No Changes Gastrointestinal: Abdominal Pain Objective Vitals Vital Signs Date Time Temp Pulse Resp B/P (MAP) Pulse Ox O2 Delivery O2 Flow Rate FiO2 05/29/25 09:00 97.9 88 16 108/49 (68) 99 97.9 05/28/25 20:00 Nasal Cannula* 2 28 Intake/Output Intake and Output 05/29/25 07:00 Intake Total 1350 ml Output Total 900 ml Balance 450 ml Intake Oral 1050 ml IV Total 300 ml Output Urine Total 900 ml # Bowel Movements 1 Medications Current Medications Medications Dose Ordered Sig/Sravan Route Start Time Stop Time Status Last Admin Dose Admin Piperacillin Sod/ Tazobactam Sod 100 ml @ 25 mls/hr Q8HR IV 05/24/25 14:00 05/28/25 22:25 25 MLS/HR Acetaminophen/ Hydrocodone Bitart 1 tab Q4HP PRN PO 05/24/25 11:15 05/25/25 13:15 1 TAB Ondansetron HCl 4 mg Q4HP PRN IV 05/24/25 11:15 Acetaminophen 650 mg Q6HP PRN PO 05/24/25 11:15 05/28/25 14:33 650 MG Morphine Sulfate 2 mg Q4HPRN PRN IV 05/24/25 11:15 Dextrose 50 ml UD PRN IV 05/24/25 11:15 05/24/25 20:02 50 ML Pantoprazole Sodium 40 mg DAILY IV 05/25/25 10:00 05/28/25 09:26 40 MG Allopurinol 100 mg DAILY PO 05/25/25 10:00 05/28/25 09:27 100 MG Amiodarone HCl 200 mg BID PO 05/24/25 22:00 05/28/25 22:24 200 MG Apixaban 2.5 mg BID PO 05/24/25 22:00 05/28/25 22:26 2.5 MG Atorvastatin Calcium 20 mg DAILY PO 05/25/25 10:00 05/28/25 09:27 20 MG Cilostazol 100 mg BID PO 05/24/25 22:00 05/28/25 22:24 100 MG Gabapentin 300 mg BID PO 05/24/25 22:00 05/28/25 22:24 300 MG Hydroxychloroquine Sulfate 200 mg DAILY PO 05/25/25 10:00 05/28/25 09:27 200 MG Midodrine 10 mg BID PO 05/24/25 22:00 05/28/25 22:25 10 MG Sotalol HCl 40 mg BID PO 05/24/25 22:00 Hold Lactulose 15 ml DAILY PO 05/25/25 10:00 05/25/25 10:49 15 ML Levothyroxine Sodium 112 mcg QAM@0600 PO 05/25/25 06:00 05/28/25 05:37 112 MCG Patient Own Medication 750 mg BID PO 05/24/25 22:00 Hold Patient Own Medication 1 tab BID PO 05/24/25 22:00 05/28/25 23:10 1 TAB Furosemide 40 mg DAILY IV 05/25/25 10:00 05/28/25 09:26 40 MG Levothyroxine Sodium 25 mcg QAM@0600 PO 05/25/25 06:00 05/28/25 05:37 25 MCG Mupirocin 1 applic BID EACHNOSTRI 05/27/25 10:00 06/01/25 09:59 05/28/25 09:38 1 APPLIC Diagnostic Test (Pha) 1 strip ACHS 05/27/25 17:00 05/29/25 06:08 1 STRIP Insulin Human Regular ACHS SC 05/27/25 17:00 Laboratory Results Laboratory Tests 05/25/25 03:46 05/28/25 05:49 Coagulation Test 05/29/25 08:50 Prothrombin Time 13.1 sec (9.3-11.8) H Prothrombin Time INR 1.26 (0.9-1.15) H Activated Partial Thromboplast Time 34.5 SEC (24.5-34.5) Urinalysis Test 05/24/25 04:50 Urine Color Light-yellow (Yellow) Urine Clarity Clear (Clear) Urine pH 5.0 (5.0-9.0) Urine Specific [place] 1.009 (1.001-1.035) Urine Protein Negative (Negative) Urine Ketones Negative (Negative) Urine Blood Negative /uL (Negative) Urine Nitrite Negative (Negative) Urine Bilirubin Negative (Negative) Urine Urobilinogen Normal mg/dL (Negative) Urine Leukocyte Esterase 3+ /uL (Negative) Urine RBC None seen /hpf (0 - 4) Urine Microscopic WBC 44 /HPF (0-5) H Urine Squamous Epithelial Cells Few /hpf (<5) Urine Bacteria None seen /hpf (None Seen) Urine Hyaline Casts Few /lpf (0 - 2) Urine Yeast (Budding) Moderate /hpf (None Seen) Urine Glucose Normal mg/dL (Normal) Microbiology Microbiology Date/Time Source Procedure Growth Status 05/27/25 09:17 Urine - Midstream Clean Catch Urine Culture - Preliminary Resulted 05/25/25 14:30 Nose MRSA Screen - Final Methicillin Resistant S.aureus Complete 05/23/25 22:00 Blood Blood Culture - Final NO GROWTH AFTER 5 DAYS OF INCUBATION. Complete Labs and/or images reviewed: Labs reviewed by me, Image(s) reviewed by me Assessment/Plan Assessment/Plan Sepsis secondary to diverticular abscess Zosyn: Consult for surgeon Dr. Owen appreciated, per Radiology it is possibly not an abscess, ordered CT abdomen pelvis with oral contrast which shows small pericolonic abscess; will await radiology intervention Septic shock AFib with RVR Morbid obesity CKD 4 Diabetes type 2 History of alcohol abuse SCOT versus vasomotor nephropathy MRSA screen positive Bactroban nasal ointment Chronic systolic versus diastolic congestive heart failure Bed-bound status UTI: Blood cultures negative, urine cultures pending Daughter Silvina [phone] at bed side Time Spent 68 minutes Advanced care planning time 20 minutes Patient is full code Plan discussed with: Patient Date of Service: May 29, 2025 Billing Provider: ABHILASH GOMES MD Common Visit Codes: [id number] INP/OBS CARE(HIGH) ABHILASH GOMES MD May 29, 2025 10:59
--- NOTE | 2025-05-29 15:25 | DVH ---
CHEST RADIOGRAPH Indication: routine Technique: Single frontal view of the chest was obtained COMPARISON: XY CHEST PORTABLE on DOS: 04/10/25, XY CHEST PORTABLE on DOS: 04/08/25, XY CHEST XRAY 1 VIE W on DOS: 04/04/25, XY CHEST PORTABLE on DOS: 03/30/25, XY CHEST PORTABLE on DOS: 03/24/25 FINDINGS: Lines and Tubes: Tunneled right central venous catheter in satisfactory position Lungs: Congestion Pleura: No effusion. No pneumothorax. Cardiomediastinal contours: Cardiomegaly Bones: Unremarkable IMPRESSION: Increased interstital prominence. This may represent pulmonary vascular congestion and/or viral pneum onia. Clinical correlation advised.
--- NOTE | 2025-05-29 17:12 | DVHPN2 ---
Progress Note - Dictate Date Seen: May 29, 2025 Medical Necessity Reason Pt with a Central, PICC or Fol: No Subjective No complaints. labs reviewed with patient undrewent HD today vital signs Vital Sign Date Time Temp Pulse Resp B/P (MAP) Pulse Ox O2 Delivery O2 Flow Rate FiO2 05/29/25 13:00 99.1 98 18 119/60 (79) 96 99.1 05/29/25 08:00 Room Air* 0 21 Total Intake and Output 05/28/25 05/28/25 05/29/25 15:00 23:00 07:00 Intake Total 100 ml 750 ml 500 ml Output Total 400 ml 500 ml Balance 100 ml 350 ml 0 ml medications Current Medications Medications Dose Ordered Sig/Sravan Route Start Time Stop Time Status Last Admin Dose Admin Piperacillin Sod/ Tazobactam Sod 100 ml @ 25 mls/hr Q8HR IV 05/24/25 14:00 05/29/25 14:34 25 MLS/HR Acetaminophen/ Hydrocodone Bitart 1 tab Q4HP PRN PO 05/24/25 11:15 05/25/25 13:15 1 TAB Ondansetron HCl 4 mg Q4HP PRN IV 05/24/25 11:15 Acetaminophen 650 mg Q6HP PRN PO 05/24/25 11:15 05/28/25 14:33 650 MG Morphine Sulfate 2 mg Q4HPRN PRN IV 05/24/25 11:15 Dextrose 50 ml UD PRN IV 05/24/25 11:15 05/24/25 20:02 50 ML Pantoprazole Sodium 40 mg DAILY IV 05/25/25 10:00 05/29/25 10:55 40 MG Allopurinol 100 mg DAILY PO 05/25/25 10:00 05/29/25 10:57 100 MG Amiodarone HCl 200 mg BID PO 05/24/25 22:00 05/29/25 10:57 200 MG Apixaban 2.5 mg BID PO 05/24/25 22:00 05/29/25 10:58 2.5 MG Atorvastatin Calcium 20 mg DAILY PO 05/25/25 10:00 05/29/25 10:57 20 MG Cilostazol 100 mg BID PO 05/24/25 22:00 05/29/25 10:57 100 MG Gabapentin 300 mg BID PO 05/24/25 22:00 05/29/25 10:57 300 MG Hydroxychloroquine Sulfate 200 mg DAILY PO 05/25/25 10:00 05/29/25 10:58 200 MG Midodrine 10 mg BID PO 05/24/25 22:00 05/29/25 10:58 10 MG Sotalol HCl 40 mg BID PO 05/24/25 22:00 Hold Lactulose 15 ml DAILY PO 05/25/25 10:00 05/25/25 10:49 15 ML Levothyroxine Sodium 112 mcg QAM@0600 PO 05/25/25 06:00 05/28/25 05:37 112 MCG Patient Own Medication 750 mg BID PO 05/24/25 22:00 Hold Patient Own Medication 1 tab BID PO 05/24/25 22:00 05/29/25 14:34 1 TAB Furosemide 40 mg DAILY IV 05/25/25 10:00 05/29/25 10:56 40 MG Levothyroxine Sodium 25 mcg QAM@0600 PO 05/25/25 06:00 05/28/25 05:37 25 MCG Mupirocin 1 applic BID EACHNOSTRI 05/27/25 10:00 06/01/25 09:59 05/29/25 10:56 1 APPLIC Diagnostic Test (Pha) 1 strip ACHS 05/27/25 17:00 05/29/25 06:08 1 STRIP objective Awake alert oriented x3 HEENT: Normocephalic, no JVD Lungs: Bilateral good air entry CVS: S1, S2 regular rate rhythm Abdomen: Soft, bowel sounds 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 Epo with HD Dietary Evaluation Review Comments: 1) Add renal restriction to 60g CCHO diet 2) Initiate Nepro qd 3) Encourage optimal PO intake 4) Follow-up with cardiology and nephrology 5) Continue to monitor I&O, labs, and skin integrity Expected Outcomes/Goals: 1) appetite and labs to improve 2) wound to improve 3) f/u in 3-5 days Plan discussed with: Patient VÍCTOR JUDGE MD May 29, 2025 17:12
[2025-05-29] MEDS: EPOETIN ALFA-EPBX 4,000 UNIT/ML VIAL SC ONE (21:18)
[2025-05-30] VITALS (8 sets, daily range): BP systolic 98–121; BP diastolic 49–79; PULSE 57–115; RESP 17–20; TEMP 97.7–98.6; O2SAT 98–100
--- NOTE | 2025-05-30 10:05 | DVHPN2 ---
Reviewed: Care Plan, H&P, Labs, Medications, Previous Orders, Radiology Changes from previous H/P or p: No Changes Gastrointestinal: Abdominal Pain Objective Vitals Vital Signs Date Time Temp Pulse Resp B/P (MAP) Pulse Ox O2 Delivery O2 Flow Rate FiO2 05/30/25 09:02 112/65 05/30/25 07:28 97.7 91 18 98 97.7 05/29/25 20:00 Nasal Cannula* 2 28 Intake/Output Intake and Output 05/30/25 07:00 Intake Total 1000 ml Output Total 450 ml Balance 550 ml Intake Oral 900 ml IV Total 100 ml Output Urine Total 450 ml # Bowel Movements 2 Medications Current Medications Medications Dose Ordered Sig/Sravan Route Start Time Stop Time Status Last Admin Dose Admin Piperacillin Sod/ Tazobactam Sod 100 ml @ 25 mls/hr Q8HR IV 05/24/25 14:00 05/30/25 05:09 25 MLS/HR Acetaminophen/ Hydrocodone Bitart 1 tab Q4HP PRN PO 05/24/25 11:15 05/25/25 13:15 1 TAB Ondansetron HCl 4 mg Q4HP PRN IV 05/24/25 11:15 Acetaminophen 650 mg Q6HP PRN PO 05/24/25 11:15 05/28/25 14:33 650 MG Morphine Sulfate 2 mg Q4HPRN PRN IV 05/24/25 11:15 Pantoprazole Sodium 40 mg DAILY IV 05/25/25 10:00 05/30/25 09:01 40 MG Allopurinol 100 mg DAILY PO 05/25/25 10:00 05/30/25 09:06 100 MG Amiodarone HCl 200 mg BID PO 05/24/25 22:00 05/30/25 09:05 200 MG Apixaban 2.5 mg BID PO 05/24/25 22:00 05/30/25 09:05 2.5 MG Atorvastatin Calcium 20 mg DAILY PO 05/25/25 10:00 05/30/25 09:06 20 MG Cilostazol 100 mg BID PO 05/24/25 22:00 05/30/25 09:05 100 MG Gabapentin 300 mg BID PO 05/24/25 22:00 05/30/25 09:05 300 MG Hydroxychloroquine Sulfate 200 mg DAILY PO 05/25/25 10:00 05/30/25 09:05 200 MG Midodrine 10 mg BID PO 05/24/25 22:00 05/30/25 09:05 10 MG Sotalol HCl 40 mg BID PO 05/24/25 22:00 Hold Lactulose 15 ml DAILY PO 05/25/25 10:00 05/30/25 09:02 15 ML Levothyroxine Sodium 112 mcg QAM@0600 PO 05/25/25 06:00 05/30/25 05:08 112 MCG Patient Own Medication 750 mg BID PO 05/24/25 22:00 Hold Patient Own Medication 1 tab BID PO 05/24/25 22:00 05/29/25 22:18 1 TAB Furosemide 40 mg DAILY IV 05/25/25 10:00 05/30/25 09:02 40 MG Levothyroxine Sodium 25 mcg QAM@0600 PO 05/25/25 06:00 05/30/25 05:08 25 MCG Mupirocin 1 applic BID EACHNOSTRI 05/27/25 10:00 06/01/25 09:59 05/29/25 22:19 1 APPLIC Fluconazole 100 ml @ 100 mls/hr DAILY IV 05/30/25 10:00 UNV Laboratory Results Laboratory Tests 05/25/25 03:46 05/28/25 05:49 Urinalysis Test 05/24/25 04:50 Urine Color Light-yellow (Yellow) Urine Clarity Clear (Clear) Urine pH 5.0 (5.0-9.0) Urine Specific [place] 1.009 (1.001-1.035) Urine Protein Negative (Negative) Urine Ketones Negative (Negative) Urine Blood Negative /uL (Negative) Urine Nitrite Negative (Negative) Urine Bilirubin Negative (Negative) Urine Urobilinogen Normal mg/dL (Negative) Urine Leukocyte Esterase 3+ /uL (Negative) Urine RBC None seen /hpf (0 - 4) Urine Microscopic WBC 44 /HPF (0-5) H Urine Squamous Epithelial Cells Few /hpf (<5) Urine Bacteria None seen /hpf (None Seen) Urine Hyaline Casts Few /lpf (0 - 2) Urine Yeast (Budding) Moderate /hpf (None Seen) Urine Glucose Normal mg/dL (Normal) Microbiology Microbiology Date/Time Source Procedure Growth Status 05/27/25 09:17 Urine - Midstream Clean Catch Urine Culture - Preliminary Presumptive Laura albicans Resulted 05/25/25 14:30 Nose MRSA Screen - Final Methicillin Resistant S.aureus Complete 05/23/25 22:00 Blood Blood Culture - Final NO GROWTH AFTER 5 DAYS OF INCUBATION. Complete Labs and/or images reviewed: Labs reviewed by me, Image(s) reviewed by me Assessment/Plan Assessment/Plan Sepsis secondary to diverticular abscess Zosyn: Consult for surgeon Dr. Owen appreciated, per Radiology it is possibly not an abscess, ordered CT abdomen pelvis with oral contrast which shows small pericolonic abscess; will await radiology intervention Septic shock AFib with RVR Morbid obesity CKD 4 Diabetes type 2 History of alcohol abuse SCOT versus vasomotor nephropathy MRSA screen positive Bactroban nasal ointment Chronic systolic versus diastolic congestive heart failure Bed-bound status UTI: With Laura: Diflucan 200 mg IV daily Daughter Silvina [phone] at bed side Discussed with the radiologist Dr. Ardon, he ordered barium enema with contrast to rule out any fecal fistula Time Spent 68 minutes Advanced care planning time 20 minutes Patient is full code Plan discussed with: Patient My Orders Orders - ABHILASH GOMES MD Procedure Category Date Status Time Pt Request For Service PT 05/29/25 Logged 12:05 Chest Portable XY 05/29/25 Resulted 14:18 * Wound Consult CONS 05/29/25 Transmitted Fluconazole PHA 05/30/25 Logged 200mg/100ml (Diflucan 10:00 Date of Service: May 30, 2025 Billing Provider: ABHILASH GOMES MD Common Visit Codes: [id number] INP/OBS CARE(HIGH) ABHILASH GOMES MD May 30, 2025 10:05
[2025-05-30] MEDS: FLUCONAZOLE 200MG/100ML 100 ML IV SCH (10:21)
[2025-05-30 10:39] LABS: Hepatitis B Surface Antigen Negative (Negative); Hepatitis C Antibody Negative (Negative)
[2025-05-30 10:40] LABS: Hepatitis B Surface Antigen Negative (Negative); Hepatitis C Antibody Negative (Negative)
[2025-05-30] MEDS: GASTROGRAFIN 120 ML SOL ONE (11:56)
--- NOTE | 2025-05-30 15:11 | DVHPN2 ---
Progress Note - Dictate Date Seen: May 30, 2025 Medical Necessity Reason Pt with a Central, PICC or Fol: No Subjective underwent Barium enema with contrast today vital signs Vital Sign Date Time Temp Pulse Resp B/P (MAP) Pulse Ox O2 Delivery O2 Flow Rate FiO2 05/30/25 13:00 97.7 97 19 120/60 (80) 99 97.7 05/29/25 20:00 Nasal Cannula* 2 28 Total Intake and Output 05/29/25 05/29/25 05/30/25 15:00 23:00 07:00 Intake Total 650 ml 350 ml Output Total 250 ml 200 ml Balance 400 ml 150 ml medications Current Medications Medications Dose Ordered Sig/Sravan Route Start Time Stop Time Status Last Admin Dose Admin Piperacillin Sod/ Tazobactam Sod 100 ml @ 25 mls/hr Q8HR IV 05/24/25 14:00 05/30/25 05:09 25 MLS/HR Acetaminophen/ Hydrocodone Bitart 1 tab Q4HP PRN PO 05/24/25 11:15 05/25/25 13:15 1 TAB Ondansetron HCl 4 mg Q4HP PRN IV 05/24/25 11:15 Acetaminophen 650 mg Q6HP PRN PO 05/24/25 11:15 05/28/25 14:33 650 MG Morphine Sulfate 2 mg Q4HPRN PRN IV 05/24/25 11:15 Pantoprazole Sodium 40 mg DAILY IV 05/25/25 10:00 05/30/25 09:01 40 MG Allopurinol 100 mg DAILY PO 05/25/25 10:00 05/30/25 09:06 100 MG Amiodarone HCl 200 mg BID PO 05/24/25 22:00 05/30/25 09:05 200 MG Apixaban 2.5 mg BID PO 05/24/25 22:00 05/30/25 09:05 2.5 MG Atorvastatin Calcium 20 mg DAILY PO 05/25/25 10:00 05/30/25 09:06 20 MG Cilostazol 100 mg BID PO 05/24/25 22:00 05/30/25 09:05 100 MG Gabapentin 300 mg BID PO 05/24/25 22:00 05/30/25 09:05 300 MG Hydroxychloroquine Sulfate 200 mg DAILY PO 05/25/25 10:00 05/30/25 09:05 200 MG Midodrine 10 mg BID PO 05/24/25 22:00 05/30/25 09:05 10 MG Sotalol HCl 40 mg BID PO 05/24/25 22:00 Hold Lactulose 15 ml DAILY PO 05/25/25 10:00 05/30/25 09:02 15 ML Levothyroxine Sodium 112 mcg QAM@0600 PO 05/25/25 06:00 05/30/25 05:08 112 MCG Patient Own Medication 750 mg BID PO 05/24/25 22:00 Hold Patient Own Medication 1 tab BID PO 05/24/25 22:00 05/30/25 10:16 1 TAB Furosemide 40 mg DAILY IV 05/25/25 10:00 05/30/25 09:02 40 MG Levothyroxine Sodium 25 mcg QAM@0600 PO 05/25/25 06:00 05/30/25 05:08 25 MCG Mupirocin 1 applic BID EACHNOSTRI 05/27/25 10:00 06/01/25 09:59 05/30/25 10:16 1 APPLIC Fluconazole 100 ml @ 100 mls/hr DAILY IV 05/30/25 10:00 05/30/25 10:21 100 MLS/HR objective Awake alert oriented x3 HEENT: Normocephalic, no JVD Lungs: Bilateral good air entry CVS: S1, S2 regular rate rhythm Abdomen: Soft, bowel sounds present COURT USHER: No focal deficits Extremities: No edema laboratory and microbiology Laboratory Tests 05/28/25 05:49 05/25/25 03:46 Test 05/28/25 05:49 Range/Units Serum Glucose 88 74-106 mg/dL Problem List SCOT on Chronic kidney disease stage 4 Bed-bound History of sigmoid abscess History of alcohol abuse Anemia in Chronic kidney disease Assessment/Plan HD 2 times a week . 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 Epo with HD will f/up on Barium enema results Dietary Evaluation Review Comments: 1) Add renal restriction to 60g CCHO diet 2) Initiate Nepro qd 3) Encourage optimal PO intake 4) Follow-up with cardiology and nephrology 5) Continue to monitor I&O, labs, and skin integrity Expected Outcomes/Goals: 1) appetite and labs to improve 2) wound to improve 3) f/u in 3-5 days Plan discussed with: Patient VÍCTOR JUDGE MD May 30, 2025 15:11
[2025-05-31] VITALS (8 sets, daily range): BP systolic 104–110; BP diastolic 49–68; PULSE 60–111; RESP 16–20; TEMP 97.7–98.3; O2SAT 95–99
--- NOTE | 2025-05-31 08:14 | DVHPN2 ---
Reviewed: Care Plan, H&P, Labs, Medications, Previous Orders, Radiology Changes from previous H/P or p: No Changes Gastrointestinal: Abdominal Pain Objective Vitals Vital Signs Date Time Temp Pulse Resp B/P (MAP) Pulse Ox O2 Delivery O2 Flow Rate FiO2 05/31/25 05:00 97.7 60 16 110/68 (82) 96 97.7 05/30/25 20:00 Room Air* 0 21 Intake/Output Intake and Output 05/31/25 07:00 Intake Total 1358 ml Output Total 850 ml Balance 508 ml Intake Oral 1258 ml IV Total 100 ml Output Urine Total 850 ml # Bowel Movements 2 Medications Current Medications Medications Dose Ordered Sig/Sravan Route Start Time Stop Time Status Last Admin Dose Admin Piperacillin Sod/ Tazobactam Sod 100 ml @ 25 mls/hr Q8HR IV 05/24/25 14:00 05/31/25 05:38 25 MLS/HR Acetaminophen/ Hydrocodone Bitart 1 tab Q4HP PRN PO 05/24/25 11:15 05/25/25 13:15 1 TAB Ondansetron HCl 4 mg Q4HP PRN IV 05/24/25 11:15 Acetaminophen 650 mg Q6HP PRN PO 05/24/25 11:15 05/28/25 14:33 650 MG Morphine Sulfate 2 mg Q4HPRN PRN IV 05/24/25 11:15 Pantoprazole Sodium 40 mg DAILY IV 05/25/25 10:00 05/30/25 09:01 40 MG Allopurinol 100 mg DAILY PO 05/25/25 10:00 05/30/25 09:06 100 MG Amiodarone HCl 200 mg BID PO 05/24/25 22:00 05/30/25 22:45 200 MG Apixaban 2.5 mg BID PO 05/24/25 22:00 05/30/25 22:47 2.5 MG Atorvastatin Calcium 20 mg DAILY PO 05/25/25 10:00 05/30/25 09:06 20 MG Cilostazol 100 mg BID PO 05/24/25 22:00 05/30/25 22:46 100 MG Gabapentin 300 mg BID PO 05/24/25 22:00 05/30/25 23:02 300 MG Hydroxychloroquine Sulfate 200 mg DAILY PO 05/25/25 10:00 05/30/25 09:05 200 MG Midodrine 10 mg BID PO 05/24/25 22:00 05/30/25 22:53 10 MG Sotalol HCl 40 mg BID PO 05/24/25 22:00 Hold Lactulose 15 ml DAILY PO 05/25/25 10:00 05/30/25 09:02 15 ML Levothyroxine Sodium 112 mcg QAM@0600 PO 05/25/25 06:00 05/31/25 06:55 112 MCG Patient Own Medication 750 mg BID PO 05/24/25 22:00 Hold Patient Own Medication 1 tab BID PO 05/24/25 22:00 05/30/25 23:08 1 TAB Furosemide 40 mg DAILY IV 05/25/25 10:00 05/30/25 09:02 40 MG Levothyroxine Sodium 25 mcg QAM@0600 PO 05/25/25 06:00 05/31/25 06:55 25 MCG Mupirocin 1 applic BID EACHNOSTRI 05/27/25 10:00 06/01/25 09:59 05/30/25 23:26 1 APPLIC Fluconazole 100 ml @ 100 mls/hr DAILY IV 05/30/25 10:00 05/30/25 10:21 100 MLS/HR Laboratory Results Laboratory Tests 05/25/25 03:46 05/28/25 05:49 Urinalysis Test 05/24/25 04:50 Urine Color Light-yellow (Yellow) Urine Clarity Clear (Clear) Urine pH 5.0 (5.0-9.0) Urine Specific [place] 1.009 (1.001-1.035) Urine Protein Negative (Negative) Urine Ketones Negative (Negative) Urine Blood Negative /uL (Negative) Urine Nitrite Negative (Negative) Urine Bilirubin Negative (Negative) Urine Urobilinogen Normal mg/dL (Negative) Urine Leukocyte Esterase 3+ /uL (Negative) Urine RBC None seen /hpf (0 - 4) Urine Microscopic WBC 44 /HPF (0-5) H Urine Squamous Epithelial Cells Few /hpf (<5) Urine Bacteria None seen /hpf (None Seen) Urine Hyaline Casts Few /lpf (0 - 2) Urine Yeast (Budding) Moderate /hpf (None Seen) Urine Glucose Normal mg/dL (Normal) Microbiology Microbiology Date/Time Source Procedure Growth Status 05/27/25 09:17 Urine - Midstream Clean Catch Urine Culture - Final Presumptive Laura albicans Complete 05/25/25 14:30 Nose MRSA Screen - Final Methicillin Resistant S.aureus Complete 05/23/25 22:00 Blood Blood Culture - Final NO GROWTH AFTER 5 DAYS OF INCUBATION. Complete Labs and/or images reviewed: Labs reviewed by me, Image(s) reviewed by me Assessment/Plan Assessment/Plan Sepsis secondary to diverticular abscess Zosyn: Consult for surgeon Dr. Owen appreciated, per Radiology it is possibly not an abscess, ordered CT abdomen pelvis with oral contrast which shows small pericolonic abscess; will await radiology intervention Septic shock AFib with RVR Morbid obesity CKD 4 Diabetes type 2 History of alcohol abuse SCOT versus vasomotor nephropathy MRSA screen positive Bactroban nasal ointment Chronic systolic versus diastolic congestive heart failure Bed-bound status UTI: With Laura: Diflucan 200 mg IV daily Daughter Silvina [phone] at bed side Discussed with the radiologist Dr. Ardon, he ordered barium enema with contrast to rule out any fecal fistula, result pending Time Spent 68 minutes Advanced care planning time 20 minutes Patient is full code BOSTON alvarez at bed side Plan discussed with: Patient My Orders Orders - ABHILASH GOMES MD Procedure Category Date Status Time Fluconazole PHA 05/30/25 In Process 200mg/100ml (Diflucan 10:00 Date of Service: May 31, 2025 Billing Provider: ABHILASH GOMES MD Common Visit Codes: [id number] INP/OBS CARE(HIGH) ABHILASH GOMES MD May 31, 2025 08:14
--- NOTE | 2025-05-31 08:41 | DVH ---
XY BARIUM ENEMA SINGLE CON HISTORY: FISTULA COMPARISON: None FINDINGS: A frontal projection of the abdomen was obtained as a co founder and chairman film. Contrast was introduced in a retrograde fashion under intermittent fluoroscopic observation with mult iple spot films being obtained. Multiple overhead films including a post evacuation film were then ob tained. Under fluoroscopic visualization contrast flowed freely from the rectum to the cecum. No filling def ects were seen. IMPRESSION: Mild narrowing and irregularity of the sigmoid colon is nonspecific but neoplasm not excluded. Consid er colonoscopy. No fistula visualized from the colon.
[2025-05-31] MEDS: ALBUTEROL SULF 2.5 MG/0.5ML(0.5%) NEB SOLN NEB PRN (11:15)
[2025-05-31] MEDS: IPRATROPIUM BROM 0.5 MG/2.5ML INH SOL NEB PRN (11:15)
--- NOTE | 2025-05-31 17:51 | DVHPN2 ---
Progress Note - Dictate Date Seen: May 31, 2025 Medical Necessity Reason Pt with a Central, PICC or Fol: No Subjective Barium enema results noted , vital signs Vital Sign Date Time Temp Pulse Resp B/P (MAP) Pulse Ox O2 Delivery O2 Flow Rate FiO2 05/31/25 17:00 98.2 104 19 104/50 (68) 98 98.2 05/31/25 11:15 Nasal Cannula* 3 32 Total Intake and Output 05/30/25 05/30/25 05/31/25 15:00 23:00 07:00 Intake Total 420 ml 218 ml 720 ml Output Total 300 ml 550 ml Balance 420 ml -82 ml 170 ml medications Current Medications Medications Dose Ordered Sig/Sravan Route Start Time Stop Time Status Last Admin Dose Admin Piperacillin Sod/ Tazobactam Sod 100 ml @ 25 mls/hr Q8HR IV 05/24/25 14:00 05/31/25 13:29 25 MLS/HR Acetaminophen/ Hydrocodone Bitart 1 tab Q4HP PRN PO 05/24/25 11:15 05/25/25 13:15 1 TAB Ondansetron HCl 4 mg Q4HP PRN IV 05/24/25 11:15 Acetaminophen 650 mg Q6HP PRN PO 05/24/25 11:15 05/28/25 14:33 650 MG Morphine Sulfate 2 mg Q4HPRN PRN IV 05/24/25 11:15 Pantoprazole Sodium 40 mg DAILY IV 05/25/25 10:00 05/31/25 08:50 40 MG Allopurinol 100 mg DAILY PO 05/25/25 10:00 05/31/25 08:49 100 MG Amiodarone HCl 200 mg BID PO 05/24/25 22:00 05/31/25 08:48 200 MG Apixaban 2.5 mg BID PO 05/24/25 22:00 05/31/25 08:48 2.5 MG Atorvastatin Calcium 20 mg DAILY PO 05/25/25 10:00 05/31/25 08:49 20 MG Cilostazol 100 mg BID PO 05/24/25 22:00 05/31/25 08:49 100 MG Gabapentin 300 mg BID PO 05/24/25 22:00 05/31/25 08:48 300 MG Hydroxychloroquine Sulfate 200 mg DAILY PO 05/25/25 10:00 05/31/25 08:49 200 MG Midodrine 10 mg BID PO 05/24/25 22:00 05/31/25 08:48 10 MG Sotalol HCl 40 mg BID PO 05/24/25 22:00 Hold Lactulose 15 ml DAILY PO 05/25/25 10:00 05/30/25 09:02 15 ML Levothyroxine Sodium 112 mcg QAM@0600 PO 05/25/25 06:00 05/31/25 06:55 112 MCG Patient Own Medication 750 mg BID PO 05/24/25 22:00 Hold Patient Own Medication 1 tab BID PO 05/24/25 22:00 05/31/25 10:22 1 TAB Furosemide 40 mg DAILY IV 05/25/25 10:00 05/31/25 08:50 40 MG Levothyroxine Sodium 25 mcg QAM@0600 PO 05/25/25 06:00 05/31/25 06:55 25 MCG Mupirocin 1 applic BID EACHNOSTRI 05/27/25 10:00 06/01/25 09:59 05/31/25 08:50 1 APPLIC Fluconazole 100 ml @ 100 mls/hr DAILY IV 05/30/25 10:00 05/31/25 10:22 100 MLS/HR Ipratropium [place] 0.5 mg Q4HPRN PRN NEB 05/31/25 11:00 05/31/25 11:15 0.5 MG Albuterol 2.5 mg Q4HPRN PRN NEB 05/31/25 11:00 05/31/25 11:15 2.5 MG objective Awake alert oriented x3 HEENT: Normocephalic, no JVD Lungs: Bilateral good air entry CVS: S1, S2 regular rate rhythm Abdomen: Soft, bowel sounds present FINANCIAL MANAGER: No focal deficits Extremities: No edema laboratory and microbiology Laboratory Tests 05/28/25 05:49 05/25/25 03:46 Test 05/28/25 05:49 Range/Units Serum Glucose 88 74-106 mg/dL Problem List SCOT on Chronic kidney disease stage 4 Bed-bound History of sigmoid abscess History of alcohol abuse Anemia in Chronic kidney disease Assessment/Plan HD 2 times a week . Next HD on Wednesday Arrangements being made for outpatient HD Dietary Evaluation Review Comments: 1) Add renal restriction to 60g CCHO diet 2) Initiate Nepro qd 3) Encourage optimal PO intake 4) Follow-up with cardiology and nephrology 5) Continue to monitor I&O, labs, and skin integrity Expected Outcomes/Goals: 1) appetite and labs to improve 2) wound to improve 3) f/u in 3-5 days Plan discussed with: Patient VÍCTOR JUDGE MD May 31, 2025 17:51
[2025-06-01] VITALS (9 sets, daily range): BP systolic 112–134; BP diastolic 40–68; PULSE 62–114; RESP 16–20; TEMP 97.7–98.1; O2SAT 93–100
--- NOTE | 2025-06-01 08:15 | DVHPN2 ---
Reviewed: Care Plan, H&P, Labs, Medications, Previous Orders, Radiology Changes from previous H/P or p: No Changes Gastrointestinal: Abdominal Pain Objective Vitals Vital Signs Date Time Temp Pulse Resp B/P (MAP) Pulse Ox O2 Delivery O2 Flow Rate FiO2 06/01/25 05:00 97.8 75 16 112/46 (68) 100 97.8 05/31/25 20:19 Nasal Cannula* 2 28 Intake/Output Intake and Output 06/01/25 07:00 Intake Total 2100 ml Output Total 450 ml Balance 1650 ml Intake Oral 1700 ml IV Total 400 ml Output Urine Total 450 ml Medications Current Medications Medications Dose Ordered Sig/Sravan Route Start Time Stop Time Status Last Admin Dose Admin Piperacillin Sod/ Tazobactam Sod 100 ml @ 25 mls/hr Q8HR IV 05/24/25 14:00 06/01/25 06:29 25 MLS/HR Acetaminophen/ Hydrocodone Bitart 1 tab Q4HP PRN PO 05/24/25 11:15 05/25/25 13:15 1 TAB Ondansetron HCl 4 mg Q4HP PRN IV 05/24/25 11:15 Acetaminophen 650 mg Q6HP PRN PO 05/24/25 11:15 05/28/25 14:33 650 MG Morphine Sulfate 2 mg Q4HPRN PRN IV 05/24/25 11:15 Pantoprazole Sodium 40 mg DAILY IV 05/25/25 10:00 05/31/25 08:50 40 MG Allopurinol 100 mg DAILY PO 05/25/25 10:00 05/31/25 08:49 100 MG Amiodarone HCl 200 mg BID PO 05/24/25 22:00 05/31/25 23:13 200 MG Apixaban 2.5 mg BID PO 05/24/25 22:00 05/31/25 23:14 2.5 MG Atorvastatin Calcium 20 mg DAILY PO 05/25/25 10:00 05/31/25 08:49 20 MG Cilostazol 100 mg BID PO 05/24/25 22:00 05/31/25 23:14 100 MG Gabapentin 300 mg BID PO 05/24/25 22:00 05/31/25 23:14 300 MG Hydroxychloroquine Sulfate 200 mg DAILY PO 05/25/25 10:00 05/31/25 08:49 200 MG Midodrine 10 mg BID PO 05/24/25 22:00 05/31/25 23:14 10 MG Sotalol HCl 40 mg BID PO 05/24/25 22:00 Hold Lactulose 15 ml DAILY PO 05/25/25 10:00 05/30/25 09:02 15 ML Levothyroxine Sodium 112 mcg QAM@0600 PO 05/25/25 06:00 06/01/25 06:29 112 MCG Patient Own Medication 750 mg BID PO 05/24/25 22:00 Hold Patient Own Medication 1 tab BID PO 05/24/25 22:00 05/31/25 23:14 1 TAB Furosemide 40 mg DAILY IV 05/25/25 10:00 05/31/25 08:50 40 MG Levothyroxine Sodium 25 mcg QAM@0600 PO 05/25/25 06:00 06/01/25 06:29 25 MCG Mupirocin 1 applic BID EACHNOSTRI 05/27/25 10:00 06/01/25 09:59 05/31/25 23:15 1 APPLIC Fluconazole 100 ml @ 100 mls/hr DAILY IV 05/30/25 10:00 05/31/25 10:22 100 MLS/HR Ipratropium [place] 0.5 mg Q4HPRN PRN NEB 05/31/25 11:00 05/31/25 11:15 0.5 MG Albuterol 2.5 mg Q4HPRN PRN NEB 05/31/25 11:00 05/31/25 11:15 2.5 MG Laboratory Results Laboratory Tests 05/25/25 03:46 05/28/25 05:49 Urinalysis Test 05/24/25 04:50 Urine Color Light-yellow (Yellow) Urine Clarity Clear (Clear) Urine pH 5.0 (5.0-9.0) Urine Specific [place] 1.009 (1.001-1.035) Urine Protein Negative (Negative) Urine Ketones Negative (Negative) Urine Blood Negative /uL (Negative) Urine Nitrite Negative (Negative) Urine Bilirubin Negative (Negative) Urine Urobilinogen Normal mg/dL (Negative) Urine Leukocyte Esterase 3+ /uL (Negative) Urine RBC None seen /hpf (0 - 4) Urine Microscopic WBC 44 /HPF (0-5) H Urine Squamous Epithelial Cells Few /hpf (<5) Urine Bacteria None seen /hpf (None Seen) Urine Hyaline Casts Few /lpf (0 - 2) Urine Yeast (Budding) Moderate /hpf (None Seen) Urine Glucose Normal mg/dL (Normal) Microbiology Microbiology Date/Time Source Procedure Growth Status 05/27/25 09:17 Urine - Midstream Clean Catch Urine Culture - Final Presumptive Laura albicans Complete 05/25/25 14:30 Nose MRSA Screen - Final Methicillin Resistant S.aureus Complete 05/23/25 22:00 Blood Blood Culture - Final NO GROWTH AFTER 5 DAYS OF INCUBATION. Complete Labs and/or images reviewed: Labs reviewed by me, Image(s) reviewed by me Assessment/Plan Assessment/Plan Sepsis secondary to diverticular abscess Zosyn: Consult for surgeon Dr. Owen appreciated, per Radiology it is possibly not an abscess, ordered CT abdomen pelvis with oral contrast which shows small pericolonic abscess; barium enema ruled out colonic fecal fistula Septic shock AFib with RVR Morbid obesity CKD 4/ ESRD patient getting dialysis 3 times a week by Dr. Lulu zee Diabetes type 2 History of alcohol abuse SCOT versus vasomotor nephropathy MRSA screen positive Bactroban nasal ointment Chronic systolic versus diastolic congestive heart failure Bed-bound status UTI: With Laura: Diflucan 200 mg IV daily Daughter Silvina [phone] at bed side Patient will be discharged custodial facility for Zosyn IV for two weeks and for dialysis 3 times a week, patient agreeable Time Spent 66 minutes Advanced care planning time 20 minutes Patient is full code Patient has dialysis cath on the right chest and PICC line on the left upper arm Plan discussed with: Patient My Orders Orders - ABHILASH GOMES MD Procedure Category Date Status Time Ipratropium Medneb PHA 05/31/25 In Process (Atrovent Medneb) 11:00 Med Adiel Sub Treatment RT 05/31/25 Logged 10:51 Albuterol Medneb PHA 05/31/25 In Process (Ventolin Medneb) 11:00 Date of Service: Jun 01, 2025 Billing Provider: ABHILASH GOMES MD Common Visit Codes: [id number] INP/OBS CARE(HIGH) ABHILASH GOMES MD Jun 01, 2025 08:15
--- NOTE | 2025-06-01 08:27 | DVHDS2 ---
Discharge Summary Date of Admission May 24, 2025 at 11:14 Date of Discharge: Jun 01, 2025 Admitting Diagnosis Left lower quadrant abdominal pain Wounds: Dialysis cath right upper chest Left upper arm PICC line Labs/Diagnostic Data: Laboratory Results Test 05/29/25 17:11 05/29/25 08:50 05/29/25 06:05 05/28/25 16:10 Hepatitis A IgM Antibody Negative Hepatitis B Surface Antigen Negative (Negative) Hepatitis B Core IgM Antibody Negative (Negative) Hepatitis C Antibody Negative (Negative) Prothrombin Time 13.1 sec (9.3-11.8) Prothrombin Time INR 1.26 (0.9-1.15) Activated Partial Thromboplast Time 34.5 SEC (24.5-34.5) POC Glucose 106 mg/dl (70-106) Hepatitis B Surface Antibody Negative (Negative) Test 05/28/25 05:49 05/25/25 03:46 05/24/25 04:50 05/24/25 04:30 Sodium Level 134 mmol/L (136-145) Potassium Level 4.3 mmol/L (3.5-5.1) Chloride Level 99 mmol/L (98-107) Carbon Dioxide Level 22 mmol/L (20-31) Anion Gap 13 (5-15) Blood Urea Nitrogen 63 mg/dL (9-23) Creatinine 3.08 mg/dL (0.550-1.02) Glomerular Filtration Rate Calc 15 mL/min (>90) BUN/Creatinine Ratio 20.5 (10.0-20.0) Serum Glucose 88 mg/dL (74-106) Calcium Level 8.6 mg/dL (8.7-10.4) White Blood Count 5.3 10^3/uL (4.4-10.8) Red Blood Count 2.61 10^6/uL (4.0-5.20) Hemoglobin 8.0 g/dL (12.2-16.2) Hematocrit 23.6 % (36.0-46.0) Mean Corpuscular Volume 90.5 fL (80.0-100.0) Mean Corpuscular Hemoglobin 30.5 pg (28.0-32.0) Mean Corpuscular Hemoglobin Concent 33.7 g/dL (32.0-36.0) Red Cell Distribution Width 18.1 % (11.8-14.3) Platelet Count 140 10^3/uL (140-450) Mean Platelet Volume 8.4 fL (6.9-10.8) Neutrophils (%) (Auto) 82.7 % (37.0-80.0) Lymphocytes (%) (Auto) 9.0 % (10.0-50.0) Monocytes (%) (Auto) 5.5 % (0.0-12.0) Eosinophils (%) (Auto) 2.5 % (0.0-7.0) Basophils (%) (Auto) 0.3 % (0.0-2.0) Neutrophils # (Auto) 4.4 10 ^3/uL (1.6-8.6) Lymphocytes # (Auto) 0.5 10 ^3/uL (0.4-5.4) Monocytes # (Auto) 0.3 10 ^3/uL (0-1.3) Eosinophils # (Auto) 0.1 10 ^3/uL (0-0.8) Basophils # (Auto) 0 10 ^3/uL (0-0.2) Nucleated Red Blood Cells 0.0 % Total Bilirubin 2.1 mg/dL (0.2-1.0) Aspartate Amino Transferase (AST) 13 U/L (13-40) Alanine Aminotransferase (ALT) 10 U/L (7-40) Alkaline Phosphatase 97 U/L (46-116) Total Protein 5.2 g/dL (5.7-8.2) Albumin 3.1 g/dL (3.2-4.8) Urine Color Light-yellow (Yellow) Urine Clarity Clear (Clear) Urine pH 5.0 (5.0-9.0) Urine Specific [place] 1.009 (1.001-1.035) Urine Protein Negative (Negative) Urine Ketones Negative (Negative) Urine Blood Negative /uL (Negative) Urine Nitrite Negative (Negative) Urine Bilirubin Negative (Negative) Urine Urobilinogen Normal mg/dL (Negative) Urine Leukocyte Esterase 3+ /uL (Negative) Urine RBC None seen /hpf (0 - 4) Urine Microscopic WBC 44 /HPF (0-5) Urine Squamous Epithelial Cells Few /hpf (<5) Urine Bacteria None seen /hpf (None Seen) Urine Hyaline Casts Few /lpf (0 - 2) Urine Yeast (Budding) Moderate /hpf (None Seen) Urine Glucose Normal mg/dL (Normal) Hemoglobin A1c < 3.8 % A1C (<5.7) Troponin I High Sensitivity 26 ng/L (</=34) Test 05/23/25 21:56 Lactic Acid Level 1.1 mmol/L (0.4-2.0) Lipase 24 U/L (12-53) Other Laboratory Tests 05/28/25 05:49 05/25/25 03:46 Brief Hx & Hospital Course: 74-year-old female with a history of diabetes chronic kidney disease stage 4/ESRD AFib with a RVR morbidly obese bed-bound history of alcohol abuse chronic congestive heart failure admitted for left lower quadrant abdominal pain treated for possible sigmoid abscess with a Zosyn. Surgical consult by Dr. Owen who advised Radiology consult. Radiology advised the patient does not have any drainable abscess. Colonic fecal fistula was ruled out by negative barium enema with a contrast study. Patient received hemodialysis by . Hemodialysis arranged 3 times a week Wednesday with [facility] , patient received physical therapy urine showed yeast infection getting Diflucan 200 mg IV daily. MRSA screen positive on Bactroban nasal ointment was applied Patient is bed-bound and received physical therapy Patient being discharged to intermediate facility for IV Zosyn for three weeks for sigmoid abscess and IV Diflucan for UTI and also to receive hemodialysis 3 times a week General condition stable but poor at the time of discharge Patient is agreeable with the discharge plan Consults/Reason for consult Surgeon Dr. Owen Radiologist [employer] Dr Warner Operations or Procedures CT abdomen pelvis without contrast Barium enema with contrast Hemodialysis Condition at Discharge: Fair Final Diagnosis/Problems List Assessment/Plan Sepsis secondary to diverticular abscess Zosyn: Consult for surgeon Dr. Owen appreciated, per Radiology it is possibly not an abscess, ordered CT abdomen pelvis with oral contrast which shows small pericolonic abscess; barium enema ruled out colonic fecal fistula Septic shock AFib with RVR Morbid obesity CKD 4/ ESRD patient getting dialysis 3 times a week by Dr. Lulu zee Diabetes type 2 History of alcohol abuse SCOT versus vasomotor nephropathy MRSA screen positive Bactroban nasal ointment Chronic systolic versus diastolic congestive heart failure Bed-bound status UTI: With Laura: Diflucan 200 mg IV daily Discharge Disposition: Halfway Facility Discharge Instruct/Medications Diet: Consistent carbohydrate Activity: Light activity Follow Up/Referral: Follow up with the intermediate Dr Medications: Zosyn 3.375 g IV q.8 hours for two weeks for sigmoid abscess Diflucan 200 mg IV daily for yeast in the urine Scheduled Albuterol Sulfate (Ventolin Mdi), 90 MCG IN Q6HP, (Reported) Allopurinol (Allopurinol), 100 MG PO DAILY, (Reported) Amiodarone HCl (Amiodarone HCl), 1 TAB PO BID, (Reported) Amlodipine Besylate (Amlodipine Besylate), 5 MG PO DAILY, (Reported) Apixaban Base (Eliquis), 1 TAB PO BID, (Reported) Atorvastatin Calcium (Atorvastatin Calcium), 1 TAB PO DAILY, (Reported) Bumetanide (Bumetanide), 1 TAB PO BID, (Reported) Cilostazol (Cilostazol), 100 MG PO BID, (Reported) Clobetasol Propionate (Clobetasol Propionate), 1 APPLIC TOP BID, (Reported) Fluticasone-Salmeterol (Advair Diskus 500/50), 1 PUFF INH BID, (Reported) Fluticasone-Salmeterol (Fluticasone Propionate/SA 500-50 Mcg/Dose), 1 PUFF PO BID, (Reported) Furosemide (Furosemide), 1 TAB PO DAILY, (Reported) Gabapentin (Gabapentin), 300 MG PO BID, (Reported) Hydroxychloroquine Sulfate (Plaquenil), 1 TAB PO DAILY, (Reported) Lactulose (Lactulose), 15 ML PO DAILY, (Reported) Levothyroxine Sodium (Levothyroxine Sodium), 1 TAB PO DAILY, (Reported) Meclizine HCl (Meclizine 25), 25 MG PO BID, (Reported) Meclizine HCl (Meclizine Hydrochloride), 1 TAB PO DAILY PRN, (Reported) Methocarbamol (Methocarbamol), 750 MG PO BID, (Reported) Midodrine Hcl (Midodrine Hcl), 1 TAB PO BID, (Reported) Pantoprazole Sodium (Pantoprazole Sodium), 40 MG IV DAILY, (Reported) Pantoprazole Sodium Sesquihydr (Pantoprazole Sodium), 1 TAB PO DAILY, (Reported) Potassium Chloride (Potassium Chloride ER), 1 TAB PO BID, (Reported) Prednisone (Prednisone), 20 MG PO BID Ropinirole Hydrochloride (Ropinirole Hcl), 1 TAB PO BID, (Reported) Sotalol Hcl (Sotalol Hcl), 0.5 TAB PO BID, (Reported) Spironolactone (Spironolactone), 1 TAB PO DAILY, (Reported) Miscellaneous Medications Loperamide HCl (Imodium A-D), 1 MG PO, (Reported) 39 (Time taken for discharge summary 39 minutes) Discharge Statement: "Patient was advised to return to the ER or call 911 if any headaches, dizziness, shortness of breath, chest pain, abdominal pain, bleeding, fevers, or worsening of medical condition. Patient was counseled about treatment plan, medications, possible side effects, patientverbalized understanding. All questions were answered to the best of my ability. This discharge took greater then 30 minutes in planning, reviewing documentation, counseling the patient, and discussing with other team members." ASSESSMENT ASSESSMENT Hospital Course Improved Assessment Assessment/Plan Sepsis secondary to diverticular abscess Zosyn: Consult for surgeon Dr. Owen appreciated, per Radiology it is possibly not an abscess, ordered CT abdomen pelvis with oral contrast which shows small pericolonic abscess; barium enema ruled out colonic fecal fistula Septic shock AFib with RVR Morbid obesity CKD 4/ ESRD patient getting dialysis 3 times a week by Dr. Lulu zee Diabetes type 2 History of alcohol abuse SCOT versus vasomotor nephropathy MRSA screen positive Bactroban nasal ointment Chronic systolic versus diastolic congestive heart failure Bed-bound status UTI: With Laura: Diflucan 200 mg IV daily Date of Service: Jun 01, 2025 Billing Provider: ABHILASH GOMES MD Common Visit Codes: [id number] DISCH DAY >30min ABHILASH GOMES MD Jun 01, 2025 08:27
[2025-06-01] MEDS: OMNIPAQUE 12mg/ml 500ml ORAL SOLUTION PO ONE (08:59)
--- NOTE | 2025-06-01 10:54 | DVHPN2 ---
Progress Note - Dictate Date Seen: Jun 01, 2025 Medical Necessity Reason Pt with a Central, PICC or Fol: No Subjective No acute issues overnight vital signs Vital Sign Date Time Temp Pulse Resp B/P (MAP) Pulse Ox O2 Delivery O2 Flow Rate FiO2 06/01/25 10:10 134/62 06/01/25 09:00 97.7 94 20 100 97.7 06/01/25 08:43 Nasal Cannula* 2 28 Total Intake and Output 05/31/25 05/31/25 06/01/25 15:00 23:00 07:00 Intake Total 200 ml 1000 ml 900 ml Output Total 200 ml 250 ml Balance 200 ml 800 ml 650 ml medications Current Medications Medications Dose Ordered Sig/Sravan Route Start Time Stop Time Status Last Admin Dose Admin Piperacillin Sod/ Tazobactam Sod 100 ml @ 25 mls/hr Q8HR IV 05/24/25 14:00 06/01/25 06:29 25 MLS/HR Acetaminophen/ Hydrocodone Bitart 1 tab Q4HP PRN PO 05/24/25 11:15 05/25/25 13:15 1 TAB Ondansetron HCl 4 mg Q4HP PRN IV 05/24/25 11:15 Acetaminophen 650 mg Q6HP PRN PO 05/24/25 11:15 05/28/25 14:33 650 MG Morphine Sulfate 2 mg Q4HPRN PRN IV 05/24/25 11:15 Pantoprazole Sodium 40 mg DAILY IV 05/25/25 10:00 06/01/25 10:08 40 MG Allopurinol 100 mg DAILY PO 05/25/25 10:00 06/01/25 10:10 100 MG Amiodarone HCl 200 mg BID PO 05/24/25 22:00 06/01/25 10:09 200 MG Apixaban 2.5 mg BID PO 05/24/25 22:00 06/01/25 10:09 2.5 MG Atorvastatin Calcium 20 mg DAILY PO 05/25/25 10:00 06/01/25 10:09 20 MG Cilostazol 100 mg BID PO 05/24/25 22:00 06/01/25 10:09 100 MG Gabapentin 300 mg BID PO 05/24/25 22:00 06/01/25 10:20 300 MG Hydroxychloroquine Sulfate 200 mg DAILY PO 05/25/25 10:00 06/01/25 10:09 200 MG Midodrine 10 mg BID PO 05/24/25 22:00 06/01/25 10:08 10 MG Sotalol HCl 40 mg BID PO 05/24/25 22:00 Hold Lactulose 15 ml DAILY PO 05/25/25 10:00 06/01/25 10:08 15 ML Levothyroxine Sodium 112 mcg QAM@0600 PO 05/25/25 06:00 06/01/25 06:29 112 MCG Patient Own Medication 750 mg BID PO 05/24/25 22:00 Hold Patient Own Medication 1 tab BID PO 05/24/25 22:00 06/01/25 10:11 1 TAB Furosemide 40 mg DAILY IV 05/25/25 10:00 06/01/25 10:10 40 MG Levothyroxine Sodium 25 mcg QAM@0600 PO 05/25/25 06:00 06/01/25 06:29 25 MCG Fluconazole 100 ml @ 100 mls/hr DAILY IV 05/30/25 10:00 06/01/25 10:11 100 MLS/HR Ipratropium [place] 0.5 mg Q4HPRN PRN NEB 05/31/25 11:00 05/31/25 11:15 0.5 MG Albuterol 2.5 mg Q4HPRN PRN NEB 05/31/25 11:00 05/31/25 11:15 2.5 MG objective Awake alert oriented x3 HEENT: Normocephalic, no JVD Lungs: Bilateral good air entry CVS: S1, S2 regular rate rhythm Abdomen: Soft, bowel sounds present CHIEF INVESTIGATOR: No focal deficits Extremities: No edema laboratory and microbiology Laboratory Tests 05/28/25 05:49 05/25/25 03:46 Test 05/28/25 05:49 Range/Units Serum Glucose 88 74-106 mg/dL Problem List SCOT on Chronic kidney disease stage 4 Bed-bound History of sigmoid abscess History of alcohol abuse Anemia in Chronic kidney disease Assessment/Plan HD 2 times a week . Next HD on Wednesday Arrangements being made for outpatient HD Patient wants to be discharged to group home facility Dietary Evaluation Review Comments: 1) Add renal restriction to 60g CCHO diet 2) Initiate Nepro qd 3) Encourage optimal PO intake 4) Follow-up with cardiology and nephrology 5) Continue to monitor I&O, labs, and skin integrity Expected Outcomes/Goals: 1) appetite and labs to improve 2) wound to improve 3) f/u in 3-5 days Plan discussed with: Patient VÍCTOR JUDGE MD Jun 01, 2025 10:54
[2025-06-01 11:19] LABS: COVID19 ANTIGEN SOFIA FIA NEGATIVE (NEGATIVE)
== END 2025-06-01 16:45 | DRG 871 ==
LOC: ER 20:27 → EDBD 20:27 → OVERFLOW 05-24 11:14 → CENTRAL 05-25 11:23
PROVIDERS: ADMIT Family Medicine; ATTEND Family Medicine
PROC: 5A1D70Z Performance of Urinary Filtration, Intermittent, Less than 6 Hours Per Day (ICD-10-PCS; principal; 2025-05-29)
DX: A41.9 Sepsis, unspecified organism (principal); I50.33 Acute on chronic diastolic (congestive) heart failure; N17.0 Acute kidney failure with tubular necrosis; R65.21 Severe sepsis with septic shock; J96.01 Acute respiratory failure with hypoxia; N18.6 End stage renal disease; I13.2 Hypertensive heart and chronic kidney disease with heart failure and with stage 5 chronic kidney disease, or end stage renal disease; N30.00 Acute cystitis without hematuria; K57.20 Diverticulitis of large intestine with perforation and abscess without bleeding; B37.49 Other urogenital candidiasis; Z68.43 Body mass index [BMI] 50.0-59.9, adult; Z20.822 Contact with and (suspected) exposure to COVID-19; D63.1 Anemia in chronic kidney disease; D69.6 Thrombocytopenia, unspecified; Z99.81 Dependence on supplemental oxygen; Z99.2 Dependence on renal dialysis; E66.01 Morbid (severe) obesity due to excess calories; E11.22 Type 2 diabetes mellitus with diabetic chronic kidney disease; E11.65 Type 2 diabetes mellitus with hyperglycemia; E11.51 Type 2 diabetes mellitus with diabetic peripheral angiopathy without gangrene; E11.40 Type 2 diabetes mellitus with diabetic neuropathy, unspecified; J44.9 Chronic obstructive pulmonary disease, unspecified; N73.9 Female pelvic inflammatory disease, unspecified; Z74.01 Bed confinement status; I48.91 Unspecified atrial fibrillation; E78.5 Hyperlipidemia, unspecified; B95.62 Methicillin resistant Staphylococcus aureus infection as the cause of diseases classified elsewhere; E80.6 Other disorders of bilirubin metabolism; Z96.651 Presence of right artificial knee joint; Z98.51 Tubal ligation status; Z82.5 Family history of asthma and other chronic lower respiratory diseases; Z82.49 Family history of ischemic heart disease and other diseases of the circulatory system; Z82.3 Family history of stroke; Z88.2 Allergy status to sulfonamides
CPT/HCPCS: 36415; 71045; 74176; 74270; 80048; 80053; 80074; 81001; 82962; 83036; 83605; 83690; 84484; 85025; 85610; 85730; 86706; 86803; 87040; 87081; 87086; 87088; 87340; 87426; 90935; 94640; 96361; 96365; 97110; 97163; 99291; G0378; J1450; J1815; J2470; J2543; P9047

== ENCOUNTER 2025-07-24 18:26 | Inpatient (IN) | payer MEDICARE, MEDICAID ==
[~2025-07-24] VITALS: Ht 167.6 cm; Wt 129.0 kg
[2025-07-24 19:15] VITALS: PULSE 96; RESP 16; O2SAT 97
[2025-07-24 19:19] LABS: Hemoglobin 9.3 g/dL (12.2-16.2); Nucleated Red Blood Cells % 0.0 %
[2025-07-24 19:21] LABS: Hematocrit 28.9 % (36.0-46.0); Mean Corpuscular Hemoglobin 27.3 pg (28.0-32.0); Mean Corpuscular Volume 84.8 fL (80.0-100.0)
[2025-07-24 19:46] LABS: Alanine Aminotransferase 18 U/L (7-40); Anion Gap 8 (5-15); BUN/Creatinine Ratio 7.0 (10.0-20.0); Bilirubin, Total 0.7 mg/dL (0.2-1.0); Blood Urea Nitrogen 12 mg/dL (9-23); Chloride 98 mmol/L (98-107); Glucose 78 mg/dL (74-106); Potassium 4.1 mmol/L (3.5-5.1); Sodium 138 mmol/L (136-145)
[2025-07-24 19:51] LABS: Albumin 2.4 g/dL (3.2-4.8); Alkaline Phosphatase 182 U/L (46-116); Calcium 8.1 mg/dL (8.7-10.4); Carbon Dioxide 32 mmol/L (20-31); Total Protein 5.5 g/dL (5.7-8.2)
--- NOTE | 2025-07-24 20:22 | DVH ---
Bilateral lower extremity venous duplex Clinical History: Bilateral lower extremity swelling Comparison: None Technique: Duplex Doppler evaluation of the deep venous systems of both lower extremities from the common femora l veins to the popliteal veins including color Doppler and spectral/pulsed waveform analysis was perf ormed. Findings: RIGHT SIDE: The common femoral vein demonstrates appropriate compressibility and waveform variability. There is compressibility/patency of the great saphenous vein at the proximal thigh. The femoral vein not visualized distal to the mid femoral vein The deep femoral vein demonstrates appropriate compressibility and waveform variability. LEFT SIDE: The common femoral vein demonstrates appropriate compressibility and waveform variability. There is compressibility/patency of the great saphenous vein at the proximal thigh. The femoral vein demonstrates noncompressible no flow no phasicity distal to the mid left femoral vei n. The deep femoral vein demonstrates appropriate compressibility and waveform variability. Impression: 1. No right or left femoropopliteal venous thrombosis proximal to the mid femoral vein bilaterally. 2. Patient unable to tolerate compression in the lower extremities distal to the mid femoral veins bi laterally.
--- NOTE | 2025-07-24 20:42 | DVH ---
CLINICAL INDICATION: Right femur pain, TECHNIQUE: 4 radiographic views of the right femur were obtained. Comparison: None FINDINGS/IMPRESSION: Right hip is poorly demonstrated despite altering windows. Total knee arthroplasty is noted on the right in appropriate alignment.
--- NOTE | 2025-07-24 21:30 | DVH ---
CHEST RADIOGRAPH Indication: Shortness of breath Technique: Single frontal view of the chest was obtained Comparison: XY CHEST PORTABLE on DOS: 05/29/25, XY CHEST PORTABLE on DOS: 04/10/25, XY CHEST PORTABLE on DOS: 04/08/25 FINDINGS: Lines and Tubes: Right IJ approach hemodialysis catheter terminating over the mid SVC. Lungs: Diffuse interstitial prominence. Left lower lung zone opacity with obscuration of the left hem idiaphragm. No pneumothorax. Cardiomediastinal contours: Unremarkable Bones: No acute osseous abnormality. IMPRESSION: Pulmonary vascular congestion with small to moderate left-sided pleural effusion and associated atele ctasis. Underlying infectious process can not be excluded.
--- NOTE | 2025-07-24 21:50 | ED.PDOC ---
History of Present Illness HPI Comments 74 year old female presents to the ED via EMS with SOB, LE edema, RLE thigh pain. She denies injury. She was found to be hypoxic on her normal supplemental O2. She has history of B/L pressure ulcers. REVIEW OF SYSTEMS: General: No fever, no chills, or fatigue HEENT: No sore throat, no earache, no congestion, no neck pain. Cardiac: No chest pain. No palpitations. Lungs: + shortness of breath, no cough. GI: No nausea, no vomiting, no diarrhea, no constipation, no abdominal pain : No dysuria, frequency, or urgency. No hematuria. Musculoskeletal: + joint pain , no joint swelling, + extremity edema. Skin: No rash, no itching. Neuro: No headache, no dizziness, no weakness PHYSICAL EXAM: General: Awake, alert and oriented. No acute distress. Skin: Skin in warm, dry and intact. Appropriate color for ethnicity. HEENT: The head is normocephalic and atraumatic. Conjunctivae are clear without exudates or hemorrhage. Sclera is non-icteric. EOM are intact. No signs of nystagmus. Eyelids are normal in appearance without swelling or lesions. Oral mucosa is pink and moist Neck: The neck is supple with normal range of motion. No JVD. Cardiac: Heart rate and rhythm are normal. No murmurs, gallops, or rubs are auscultated. Respiratory: Diminished breath sounds bilaterally Abdominal: Abdomen is soft, non-tender without distention, guarding or rigidity. Bowel sounds are present and normoactive in all four quadrants. Extremities: +b/l 3 + LE edema, Right lateral femur tenderness. No hip tenderness. Neurological: The patient is awake, alert and oriented to person, place, and time with normal speech. Speech is clear. There is no facial asymmetry. Psychiatric: Appropriate mood and affect. Good judgement and insight. Chief Complaint: General Weakness Time Seen by MD: 18:45 Allergies: Coded Allergies: Zinc Oxide (Verified Allergy, Mild, 03/07/25) Sulfa Antibiotics (Verified Allergy, Unknown, 01/16/22) Home Meds Active Scripts Prednisone (Prednisone) 20 Mg Tab, 20 MG PO BID for 5 Days, #10 TAB Prov:VÍCTOR HAMILTON CREW MESS ATTENDANT 01/20/22 Reported Medications Amiodarone HCl (Amiodarone HCl) 200 Mg Tab, 1 TAB PO BID 03/20/25 Levothyroxine Sodium (Levothyroxine Sodium) 137 Mcg Tab, 1 TAB PO DAILY 03/20/25 Ropinirole Hydrochloride (Ropinirole Hcl) 0.25 Mg Tab, 1 TAB PO BID for 90 Days, #180 02/26/25 Spironolactone (Spironolactone) 50 Mg Tab, 1 TAB PO DAILY for 90 Days, #90 02/26/25 Meclizine HCl (Meclizine Hydrochloride) 25 Mg Tab, 1 TAB PO DAILY PRN for 90 Days, #90 02/26/25 Midodrine Hcl (Midodrine Hcl) 10 Mg Tab, 1 TAB PO BID for 90 Days, #180 02/26/25 Potassium Chloride (Potassium Chloride ER) 20 Meq Tab, 1 TAB PO BID for 90 Days, #180 02/26/25 Fluticasone-Salmeterol (Fluticasone Propionate/SA 500-50 Mcg/Dose) 1 Aer Aer, 1 PUFF PO BID for 30 Days, #60 02/26/25 Lactulose (Lactulose) 10 Gm/15 Ml Yoselyn, 15 ML PO DAILY for 30 Days, #450 02/26/25 Gabapentin (Gabapentin) 300 Mg Cap, 300 MG PO BID 11/08/24 Pantoprazole Sodium Sesquihydr (Pantoprazole Sodium) 40 Mg Tab, 1 TAB PO DAILY 11/08/24 Atorvastatin Calcium (ATORVASTATIN CALCIUM) 20 Mg Tab, 1 TAB PO DAILY 11/08/24 Bumetanide (Bumetanide) 2 Mg Tab, 1 TAB PO BID 11/08/24 Apixaban Base (ELIQUIS) 2.5 Mg Tab, 1 TAB PO BID 11/08/24 Loperamide HCl (Imodium A-D) 1 Mg/7.5 Ml Liq, 1 MG PO, LIQ 01/17/22 Clobetasol Propionate (Clobetasol Propionate) 0.05 % Oin, 1 APPLIC TOP BID, #15 GRAMS 01/17/22 Hydroxychloroquine Sulfate (PLAQUENIL) 200 Mg Tab, 1 TAB PO DAILY, #180 TAB 3 Refills 01/17/22 Furosemide (Furosemide) 40 Mg Tab, 1 TAB PO DAILY, #30 TAB 5 Refills 01/17/22 Fluticasone-Salmeterol (Advair Diskus 500/50) 1 Puff Ih, 1 PUFF INH BID, #1 INHALER 5 Refills 01/17/22 Albuterol Sulfate (VENTOLIN MDI) 90 Mcg Ih, 90 MCG IN Q6HP for 30 Days, MCG 01/17/22 Allopurinol (Allopurinol) 100 Mg Tab, 100 MG PO DAILY for 30 Days, MG 01/17/22 Amlodipine Besylate (Amlodipine Besylate) 5 Mg Tab, 5 MG PO DAILY for 30 Days, MG 01/17/22 Pantoprazole Sodium (PANTOPRAZOLE SODIUM) 40 Mg Inj, 40 MG IV DAILY, INJ 01/17/22 Cilostazol (Cilostazol) 100 Mg Tab, 100 MG PO BID for 30 Days, MG 01/17/22 Methocarbamol (Methocarbamol) 750 Mg Tab, 750 MG PO BID, TAB 01/17/22 Sotalol Hcl (Sotalol Hcl) 80 Mg Tab, 0.5 TAB PO BID, #60 TAB 5 Refills 01/17/22 Meclizine HCl (Meclizine 25) 25 Mg Tab, 25 MG PO BID, TAB 01/17/22 Mode of Arrival: EMS Past Medical History PAST MEDICAL HISTORY: AFIB, CHF, CKF, COPD, DM, High Lipids, HTN Surgical History: Denies all surgeries LABORATORY GENETICIST History: No Pertinent LABORATORY GENETICIST History Family History Family History: Reviewed,noncontributory to illness Social History Smoker: Non-Smoker Alcohol: Denies ETOH Use Drugs: Denies Drug Use Lives In: Other Was a procedure done? Was a procedure done?: No Differential Dx Considerations may include: Differential diagnoses considered includebut arenot limited to acute Bron chitis, Asthma, COPD, Pneumothorax, PE, CHF, Pulmonary HTN, Anemia, CO Poisoning, Methemoglobinemia, Hyperventilation, Metabolic Acidosis, Pulmonary Edema, Pneumonia, ACS, Pericardial Tamponade, Anxiety, other X-Ray, Labs, Meds, VS Vital Signs Date Time Temp Pulse Resp B/P (MAP) Pulse Ox O2 Delivery O2 Flow Rate FiO2 07/24/25 23:15 90 12 84/36 (52) 100 07/24/25 23:07 70/49 07/24/25 22:22 92 18 80/40 99 30 07/24/25 22:18 92 80/40 100 Facial BiPAP Mask 30 07/24/25 21:48 87 12 89/41 (57) 100 07/24/25 21:15 90 12 86/42 (57) 100 07/24/25 20:00 88 07/24/25 19:15 98.4 96 12 216/184 (195) 97 98.4 07/24/25 19:15 96 16 97 Non-Rebreather 15 N/A 07/24/25 18:36 97.7 110 20 92/52 98 97.7 Lab Test 07/24/25 22:00 07/24/25 20:21 07/24/25 19:05 Range/Units Troponin I High Sensitivity 19 21 22 </=34 ng/L White Blood Count 17.4 H 4.4-10.8 10^3/uL Red Blood Count 3.40 L 4.0-5.20 10^6/uL Hemoglobin 9.3 L 12.2-16.2 g/dL Hematocrit 28.9 L 36.0-46.0 % Mean Corpuscular Volume 84.8 80.0-100.0 fL Mean Corpuscular Hemoglobin 27.3 L 28.0-32.0 pg Mean Corpuscular Hemoglobin Concent 32.2 32.0-36.0 g/dL Red Cell Distribution Width 19.3 H 11.8-14.3 % Platelet Count 490 H 140-450 10^3/uL Mean Platelet Volume 6.6 L 6.9-10.8 fL Neutrophils (%) (Auto) 82.4 H 37.0-80.0 % Lymphocytes (%) (Auto) 9.7 L 10.0-50.0 % Monocytes (%) (Auto) 6.8 0.0-12.0 % Eosinophils (%) (Auto) 0.7 0.0-7.0 % Basophils (%) (Auto) 0.4 0.0-2.0 % Neutrophils # (Auto) 14.4 H 1.6-8.6 10 ^3/uL Lymphocytes # (Auto) 1.7 0.4-5.4 10 ^3/uL Monocytes # (Auto) 1.2 0-1.3 10 ^3/uL Eosinophils # (Auto) 0.1 0-0.8 10 ^3/uL Basophils # (Auto) 0.1 0-0.2 10 ^3/uL Nucleated Red Blood Cells 0.0 % Sodium Level 138 136-145 mmol/L Potassium Level 4.1 3.5-5.1 mmol/L Chloride Level 98 98-107 mmol/L Carbon Dioxide Level 32 H 20-31 mmol/L Anion Gap 8 5-15 Blood Urea Nitrogen 12 9-23 mg/dL Creatinine 1.71 H 0.550-1.02 mg/dL Glomerular Filtration Rate Calc 31 >90 mL/min BUN/Creatinine Ratio 7.0 L 10.0-20.0 Serum Glucose 78 74-106 mg/dL Lactic Acid Level 1.2 0.4-2.0 mmol/L Calcium Level 8.1 L 8.7-10.4 mg/dL Total Bilirubin 0.7 0.2-1.0 mg/dL Aspartate Amino Transferase (AST) 26 13-40 U/L Alanine Aminotransferase (ALT) 18 7-40 U/L Alkaline Phosphatase 182 H 46-116 U/L B-Type Natriuretic Peptide 214.77 0-100 pg/mL Total Protein 5.5 L 5.7-8.2 g/dL Albumin 2.4 L 3.2-4.8 g/dL Current Medications Medications (Trade) Dose Ordered Sig/Sravan Route Start Time Stop Time Status Last Admin Ceftriaxone Sodium 50 ml @ 100 mls/hr ONCE ONCE IV 07/24/25 22:00 07/24/25 22:29 DC 07/24/25 22:09 Vancomycin HCl 250 ml @ 250 mls/hr ONCE ONCE IV 07/24/25 22:00 07/24/25 22:59 DC 07/25/25 01:39 Norepinephrine Bitartrate 250 ml @ 3.75 mls/hr Q24H IV 07/24/25 23:00 07/24/25 23:07 Time of 1ST Reevaluation: 21:47 Reevaluation 1ST: Unchanged Patient Education/Counseling: Need For Follow Up Family Education/Counseling: No Family Present SEPSIS Sepsis Screen Date sepsis recognized/suspect: Jul 24, 2025 Time Sepsis recognized/suspect: 2128 Recent Procedure: No On Antibiotic Therapy: No Respiratory Rate >20: No Heart Rate >90: Yes Temp<36 C (96.8 F) or >38.3 C: No SBP <90 or MAP <65 mmHG: No New Acute Mental Status Change: Yes Is the patient on CPAP, BIPAP,: No Physician Orders Urinalysis (07/24/25 18:48) Blood Culture (07/24/25 18:48) Electrocardigram (07/24/25 18:52) Electrocardigram (07/24/25 19:52) Electrocardigram (07/24/25 21:52) Chest Xray 1 View (07/24/25 19:28) Bilat Lower Dvt (07/24/25 19:28) R Femur Xray (07/24/25 19:28) BIPAP (07/24/25 21:46) Norepinephrine 8 Mg/250ml Kit (Levophed) (07/24/25 23:00) Vital Signs Date Time Temp Pulse Resp B/P (MAP) Pulse Ox O2 Delivery O2 Flow Rate FiO2 07/24/25 23:15 90 12 84/36 (52) 100 07/24/25 23:07 70/49 07/24/25 22:22 92 18 80/40 99 30 07/24/25 22:18 92 80/40 100 Facial BiPAP Mask 30 07/24/25 21:48 87 12 89/41 (57) 100 07/24/25 21:15 90 12 86/42 (57) 100 07/24/25 20:00 88 07/24/25 19:15 98.4 96 12 216/184 (195) 97 98.4 07/24/25 19:15 96 16 97 Non-Rebreather 15 N/A 07/24/25 18:36 97.7 110 20 92/52 98 97.7 Laboratory Tests Test 07/24/25 19:05 Lactic Acid Level 1.2 mmol/L (0.4-2.0) White Blood Count 17.4 10^3/uL (4.4-10.8) H Medications Medications Dose Ordered Sig/Sravan Route Start Time Stop Time Status Last Admin Dose Admin Ceftriaxone Sodium 50 ml @ 100 mls/hr ONCE ONCE IV 07/24/25 22:00 07/24/25 22:29 DC 07/24/25 22:09 Norepinephrine Bitartrate 250 ml @ 3.75 mls/hr Q24H IV 07/24/25 23:00 07/24/25 23:07 Vancomycin HCl 250 ml @ 250 mls/hr ONCE ONCE IV 07/24/25 22:00 07/24/25 22:59 DC 07/25/25 01:39 Departure 1 Departure Time of Disposition: 21:50 Impression: Primary Impression: CHF exacerbation Disposition: ADMITTED INPATIENT Condition: Serious Comments Patient is stabilized in the ED Patient admitted to hospitalist service for further treatment, evaluation and monitoring. Critical Care Note Critical Care Time?: No Stability Stability form required: No Heart Score Heart Score: Heart Score Response (Comments) Value History N/A 0 EKG N/A 0 Age N/A 0 Risk Factors N/A 0 Troponin N/A 0 Total 0 KASSANDRA ALEXANDER MD Jul 24, 2025 21:50
[2025-07-24] MEDS: VANCOMYCIN 1GM/250ML KIT 250 ML IV ONE (22:00)
[2025-07-24 22:18] VITALS: BP 80/40; PULSE 92; O2SAT 100
[2025-07-24 22:22] VITALS: BP 80/40; PULSE 92; RESP 18; O2SAT 99
[2025-07-24] MEDS: NOREPINEPHRINE 8 MG/250ML KIT 250 ML IV SCH ×2 (23:07→23:30)
--- NOTE | 2025-07-24 23:23 | DVHHP2 ---
Admitting Diagnosis: jade, hypoxia, chf exacerbation History of Present Illness HPI 74 year old female presents to the ED via EMS with SOB, LE edema, RLE thigh pain. She denies injury. She was found to be hypoxic on her normal supplemental O2. She has history of B/L pressure ulcers. Home Meds Active Scripts Prednisone (Prednisone) 20 Mg Tab, 20 MG PO BID for 5 Days, #10 TAB Prov:VÍCTOR HAMILTON MACHINE STRIPER 01/20/22 Reported Medications Amiodarone HCl (Amiodarone HCl) 200 Mg Tab, 1 TAB PO BID 03/20/25 Levothyroxine Sodium (Levothyroxine Sodium) 137 Mcg Tab, 1 TAB PO DAILY 03/20/25 Ropinirole Hydrochloride (Ropinirole Hcl) 0.25 Mg Tab, 1 TAB PO BID for 90 Days, #180 02/26/25 Spironolactone (Spironolactone) 50 Mg Tab, 1 TAB PO DAILY for 90 Days, #90 02/26/25 Meclizine HCl (Meclizine Hydrochloride) 25 Mg Tab, 1 TAB PO DAILY PRN for 90 Days, #90 02/26/25 Midodrine Hcl (Midodrine Hcl) 10 Mg Tab, 1 TAB PO BID for 90 Days, #180 25 Potassium Chloride (Potassium Chloride ER) 20 Meq Tab, 1 TAB PO BID for 90 Days, #180 25 Fluticasone-Salmeterol (Fluticasone Propionate/SA 500-50 Mcg/Dose) 1 Aer Aer, 1 PUFF PO BID for 30 Days, #60 02/26/25 Lactulose (Lactulose) 10 Gm/15 Ml Yoselyn, 15 ML PO DAILY for 30 Days, #450 02/26/25 Gabapentin (Gabapentin) 300 Mg Cap, 300 MG PO BID 11/08/24 Pantoprazole Sodium Sesquihydr (Pantoprazole Sodium) 40 Mg Tab, 1 TAB PO DAILY 11/08/24 Atorvastatin Calcium (ATORVASTATIN CALCIUM) 20 Mg Tab, 1 TAB PO DAILY 11/08/24 Bumetanide (Bumetanide) 2 Mg Tab, 1 TAB PO BID 11/08/24 Apixaban Base (ELIQUIS) 2.5 Mg Tab, 1 TAB PO BID 11/08/24 Loperamide HCl (Imodium A-D) 1 Mg/7.5 Ml Liq, 1 MG PO, LIQ 01/17/22 Clobetasol Propionate (Clobetasol Propionate) 0.05 % Oin, 1 APPLIC TOP BID, #15 GRAMS 01/17/22 Hydroxychloroquine Sulfate (PLAQUENIL) 200 Mg Tab, 1 TAB PO DAILY, #180 TAB 3 Refills 01/17/22 Furosemide (Furosemide) 40 Mg Tab, 1 TAB PO DAILY, #30 TAB 5 Refills 01/17/22 Fluticasone-Salmeterol (Advair Diskus 500/50) 1 Puff Ih, 1 PUFF INH BID, #1 INHALER 5 Refills 01/17/22 Albuterol Sulfate (VENTOLIN MDI) 90 Mcg Ih, 90 MCG IN Q6HP for 30 Days, MCG 01/17/22 Allopurinol (Allopurinol) 100 Mg Tab, 100 MG PO DAILY for 30 Days, MG 01/17/22 Amlodipine Besylate (Amlodipine Besylate) 5 Mg Tab, 5 MG PO DAILY for 30 Days, MG 01/17/22 Pantoprazole Sodium (PANTOPRAZOLE SODIUM) 40 Mg Inj, 40 MG IV DAILY, INJ 01/17/22 Cilostazol (Cilostazol) 100 Mg Tab, 100 MG PO BID for 30 Days, MG 01/17/22 Methocarbamol (Methocarbamol) 750 Mg Tab, 750 MG PO BID, TAB 01/17/22 Sotalol Hcl (Sotalol Hcl) 80 Mg Tab, 0.5 TAB PO BID, #60 TAB 5 Refills 01/17/22 Meclizine HCl (Meclizine 25) 25 Mg Tab, 25 MG PO BID, TAB 01/17/22 Past Medical History Patient Family History: Cerebrovascular accident (CVA) G8 MOTHER Chronic obstructive pulmonary disease FH: CHF (congestive heart failure) G8 MOTHER Hypertension G8 MOTHER Review of Systems Constitutional: No symptom reported Pulmonary/Respiratory: Dyspnea Gastrointestinal: No symptom reported Genitourinary: No symptom reported Psychiatric: No symptom reported Endocrine: No symptom reported H&P Exam Vital Signs Vital Signs Date Time Temp Pulse Resp B/P (MAP) Pulse Ox O2 Delivery O2 Flow Rate FiO2 07/24/25 23:07 70/49 07/24/25 22:22 92 18 99 30 07/24/25 22:18 Facial BiPAP Mask 07/24/25 19:15 98.4 98.4 07/24/25 19:15 15 General Appeara: Well developed Head Exam: Normal inspection Abdominal Exam: Normal bowel sounds Wrist Exam: Normal inspection Hand Exam: Normal inspection SEPSIS Sepsis Screen Date sepsis recognized/suspect: Jul 24, 2025 Time Sepsis recognized/suspect: 2128 Recent Procedure: No On Antibiotic Therapy: No Respiratory Rate >20: No Heart Rate >90: Yes Temp<36 C (96.8 F) or >38.3 C: No SBP <90 or MAP <65 mmHG: No New Acute Mental Status Change: Yes Is the patient on CPAP, BIPAP,: No Physician Orders Urinalysis (07/24/25 18:48) Blood Culture (07/24/25 18:48) Electrocardigram (07/24/25 18:52) Electrocardigram (07/24/25 19:52) Electrocardigram (07/24/25 21:52) Chest Xray 1 View (07/24/25 19:28) Bilat Lower Dvt (07/24/25 19:28) R Femur Xray (07/24/25 19:28) BIPAP (07/24/25 21:46) Norepinephrine 8 Mg/250ml Kit (Levophed) (07/24/25 23:00) Norepinephrine 8 Mg/250ml Kit (Levophed) (07/24/25 23:30) Code Status (07/24/25 23:17) Hydrocodone-Acet 5/325mg Tab ([place] 5/32 (07/24/25 23:30) Ondansetron Hcl (Zofran) (07/24/25 23:30) Docusate Sodium Capsule (Colace Capsule) (07/24/25 23:30) Complete Blood Count (07/25/25 04:00) Comprehensive Metabolic Panel (07/25/25 04:00) Cardiac Diet-2gna,Lofat,Lochol (07/25/25 Breakfast) Pt Request For Service (07/24/25 23:17) Condition: Serious (07/24/25 23:17) Acetaminophen Tablet (Tylenol Tablet) (07/24/25 23:30) Morphine Sulfate Injection (07/24/25 23:30) Enoxaparin Sodium (Lovenox) (07/24/25 23:30) Nitroglycerin Sublingual (Ntrostat Subli (07/24/25 23:30) Morphine Sulfate Injection (07/24/25 23:30) Stat Ekg For Chest Pain (07/24/25 23:17) Notify Of Changes From Base (07/24/25 23:17) Skein Mercerizing Machine Operator For 24 Hours (07/24/25 23:17) Emergency Dysrhythmia Protocol (07/24/25 23:17) Rhythm Strips Once Every Shift (07/24/25 23:17) Oxygen By Nasal Cannula (07/24/25 23:17) Furosemide Injection (Lasix Injection) (07/25/25 10:00) Admit (07/24/25 23:22) Vital Signs Date Time Temp Pulse Resp B/P (MAP) Pulse Ox O2 Delivery O2 Flow Rate FiO2 07/24/25 23:07 70/49 07/24/25 22:22 92 18 80/40 99 30 07/24/25 22:18 92 80/40 100 Facial BiPAP Mask 30 07/24/25 21:48 87 12 89/41 (57) 100 07/24/25 21:15 90 12 86/42 (57) 100 07/24/25 19:15 98.4 96 12 216/184 (195) 97 98.4 07/24/25 19:15 96 16 97 Non-Rebreather 15 N/A 07/24/25 18:36 97.7 110 20 92/52 98 97.7 Laboratory Tests Test 07/24/25 19:05 Lactic Acid Level 1.2 mmol/L (0.4-2.0) White Blood Count 17.4 10^3/uL (4.4-10.8) H Medications Medications Dose Ordered Sig/Sravan Route Start Time Stop Time Status Last Admin Dose Admin Ceftriaxone Sodium 50 ml @ 100 mls/hr ONCE ONCE IV 07/24/25 22:00 07/24/25 22:29 DC 07/24/25 22:09 100 MLS/HR Norepinephrine Bitartrate 250 ml @ 3.75 mls/hr Q24H IV 07/24/25 23:00 07/24/25 23:07 3.75 MLS/HR Labs/Xrays Labs Test 07/24/25 22:00 07/24/25 19:05 Range/Units Troponin I High Sensitivity 19 </=34 ng/L White Blood Count 17.4 H 4.4-10.8 10^3/uL Red Blood Count 3.40 L 4.0-5.20 10^6/uL Hemoglobin 9.3 L 12.2-16.2 g/dL Hematocrit 28.9 L 36.0-46.0 % Mean Corpuscular Volume 84.8 80.0-100.0 fL Mean Corpuscular Hemoglobin 27.3 L 28.0-32.0 pg Mean Corpuscular Hemoglobin Concent 32.2 32.0-36.0 g/dL Red Cell Distribution Width 19.3 H 11.8-14.3 % Platelet Count 490 H 140-450 10^3/uL Mean Platelet Volume 6.6 L 6.9-10.8 fL Neutrophils (%) (Auto) 82.4 H 37.0-80.0 % Lymphocytes (%) (Auto) 9.7 L 10.0-50.0 % Monocytes (%) (Auto) 6.8 0.0-12.0 % Eosinophils (%) (Auto) 0.7 0.0-7.0 % Basophils (%) (Auto) 0.4 0.0-2.0 % Neutrophils # (Auto) 14.4 H 1.6-8.6 10 ^3/uL Lymphocytes # (Auto) 1.7 0.4-5.4 10 ^3/uL Monocytes # (Auto) 1.2 0-1.3 10 ^3/uL Eosinophils # (Auto) 0.1 0-0.8 10 ^3/uL Basophils # (Auto) 0.1 0-0.2 10 ^3/uL Nucleated Red Blood Cells 0.0 % Sodium Level 138 136-145 mmol/L Potassium Level 4.1 3.5-5.1 mmol/L Chloride Level 98 98-107 mmol/L Carbon Dioxide Level 32 H 20-31 mmol/L Anion Gap 8 5-15 Blood Urea Nitrogen 12 9-23 mg/dL Creatinine 1.71 H 0.550-1.02 mg/dL Glomerular Filtration Rate Calc 31 >90 mL/min BUN/Creatinine Ratio 7.0 L 10.0-20.0 Serum Glucose 78 74-106 mg/dL Lactic Acid Level 1.2 0.4-2.0 mmol/L Calcium Level 8.1 L 8.7-10.4 mg/dL Total Bilirubin 0.7 0.2-1.0 mg/dL Aspartate Amino Transferase (AST) 26 13-40 U/L Alanine Aminotransferase (ALT) 18 7-40 U/L Alkaline Phosphatase 182 H 46-116 U/L B-Type Natriuretic Peptide 214.77 0-100 pg/mL Total Protein 5.5 L 5.7-8.2 g/dL Albumin 2.4 L 3.2-4.8 g/dL Assessment/Plan Primary Diagnosis 74 year old female presents to the ED via EMS with SOB, LE edema, RLE thigh pain. She denies injury. She was found to be hypoxic on her normal supplemental O2. She has history of B/L pressure ulcers. hypoxia sepsis with PNA suspected PNA esrd on hd chronic anemia/anemia of ckd morbid obesity fluid overload 4+ pitting edema weakness acute hypoxic resp failure Plan discussed with: Patient BUTLERTORRIE Elkins Yvette NREI Jul 24, 2025 23:23
[2025-07-24] MEDS ORDERED: MORPHINE SULFATE INJ 2 MG/ml SYRG IV PRN ×2 (23:30)
[2025-07-24] MEDS ORDERED: NITROGLYCERIN 0.4 MG SL TAB SL PRN (23:30)
[2025-07-25] VITALS (41 sets, daily range): BP systolic 80–159; BP diastolic 22–92; PULSE 71–124; RESP 8–28; TEMP 98.7; O2SAT 82–100
[2025-07-25] MEDS: ENOXAPARIN SOD 30 MG/0.3 ML SYRINGE SC ONE (00:16)
[2025-07-25 00:40] LABS: Base Excess 6.6 mmol/L (-2.0-3.0)
[2025-07-25 03:09] LABS: Urine Protein, UAD 2+ (Negative); Urine WBC Clumps PRESENT /hpf (None Seen)
[2025-07-25 04:52] LABS: Hemoglobin 9.4 g/dL (12.2-16.2)
[2025-07-25 04:54] LABS: Hematocrit 29.3 % (36.0-46.0); Mean Corpuscular Hemoglobin 27.9 pg (28.0-32.0); Mean Corpuscular Volume 86.8 fL (80.0-100.0); Nucleated Red Blood Cells % 0.0 %
[2025-07-25 05:11] LABS: Alanine Aminotransferase 16 U/L (7-40); Anion Gap 9 (5-15); BUN/Creatinine Ratio 5.6 (10.0-20.0); Bilirubin, Total 0.6 mg/dL (0.2-1.0); Blood Urea Nitrogen 10 mg/dL (9-23); Carbon Dioxide 29 mmol/L (20-31); Chloride 98 mmol/L (98-107); Glucose 85 mg/dL (74-106); Potassium 4.0 mmol/L (3.5-5.1); Sodium 136 mmol/L (136-145); Total Protein 5.7 g/dL (5.7-8.2)
[2025-07-25 05:14] LABS: Albumin 2.5 g/dL (3.2-4.8); Alkaline Phosphatase 169 U/L (46-116); Calcium 8.4 mg/dL (8.7-10.4)
[2025-07-25] MEDS ORDERED: DEXTROSE (50%) 50ML SYRG IV PRN (07:45)
[2025-07-25] MEDS: FUROSEMIDE 100 MG/10ML VIAL IV SCH (10:42)
[2025-07-25] MEDS: InsuLIN REG 1unit/0.01ml Soln (100units/ml) SC SCH (13:18)
[2025-07-25] MEDS: ACCU-CHEK COMFORT CURVE STRIP VI SCH (13:18)
[2025-07-25] MEDS: HYDROcodone-ACET 5/325MG TAB PO PRN (18:40)
[2025-07-25] MEDS: ALBUMIN 25% 100 ML IV SCH (20:00)
[2025-07-26] VITALS (115 sets, daily range): BP systolic 92–145; BP diastolic 41–81; PULSE 82–117; RESP 11–22; TEMP 97.7–98.8; O2SAT 90–100
[2025-07-26] MEDS: ENOXAPARIN SOD 30 MG/0.3 ML SYRINGE SC SCH (09:40)
[2025-07-26 10:20] LABS: Hematocrit 27.3 % (36.0-46.0); Hemoglobin 8.7 g/dL (12.2-16.2); Mean Corpuscular Hemoglobin 26.9 pg (28.0-32.0); Mean Corpuscular Volume 85.0 fL (80.0-100.0); Nucleated Red Blood Cells % 0.0 %
[2025-07-26 10:29] LABS: Chloride 98 mmol/L (98-107); Potassium 3.6 mmol/L (3.5-5.1); Sodium 138 mmol/L (136-145)
[2025-07-26 10:30] LABS: Anion Gap 9 (5-15); Carbon Dioxide 31 mmol/L (20-31)
[2025-07-26 10:31] LABS: Calcium 8.6 mg/dL (8.7-10.4)
[2025-07-26 10:34] LABS: INR 1.25 (0.9-1.15); Partial Thromboplastin Time 35.9 SEC (24.5-34.5); Prothrombin Time 13.0 sec (9.3-11.8)
[2025-07-26 10:35] LABS: Glucose 94 mg/dL (74-106)
[2025-07-26 10:36] LABS: BUN/Creatinine Ratio 5.4 (10.0-20.0); Blood Urea Nitrogen 10 mg/dL (9-23); Magnesium 1.8 mg/dL (1.6-2.6)
[2025-07-26] MEDS ORDERED: ALBUMIN 25% 100 ML IV SCH ×2 (15:15→15:45)
[2025-07-26] MEDS: ALBUMIN 25% 200 ML IV ONE ×2 (15:28→16:36)
[2025-07-26] MEDS ORDERED: ALBUMIN 25% 200 ML IV SCH (16:30)
[2025-07-26] MEDS: ONDANSETRON HCL 4 MG/2 ML VIAL IV PRN (20:51)
[2025-07-27] VITALS (103 sets, daily range): BP systolic 87–156; BP diastolic 37–89; PULSE 78–128; RESP 9–27; TEMP 97.9–99.5; O2SAT 85–100
[2025-07-27 03:34] LABS: Hematocrit 26.6 % (36.0-46.0); Hemoglobin 8.6 g/dL (12.2-16.2); Mean Corpuscular Hemoglobin 27.3 pg (28.0-32.0); Mean Corpuscular Volume 84.8 fL (80.0-100.0); Nucleated Red Blood Cells % 0.1 %
[2025-07-27 03:42] LABS: INR 1.3 (0.9-1.15); Partial Thromboplastin Time 36.1 SEC (24.5-34.5); Prothrombin Time 13.4 sec (9.3-11.8)
[2025-07-27 03:53] LABS: Alanine Aminotransferase 12 U/L (7-40); Anion Gap 8 (5-15); BUN/Creatinine Ratio 5.3 (10.0-20.0); Bilirubin, Total 0.9 mg/dL (0.2-1.0); Calcium 9.0 mg/dL (8.7-10.4); Chloride 98 mmol/L (98-107); Glucose 103 mg/dL (74-106); Magnesium 1.8 mg/dL (1.6-2.6); Potassium 4.1 mmol/L (3.5-5.1); Sodium 138 mmol/L (136-145); Total Protein 6.0 g/dL (5.7-8.2)
[2025-07-27 03:59] LABS: Albumin 3.1 g/dL (3.2-4.8); Alkaline Phosphatase 136 U/L (46-116); Blood Urea Nitrogen 8 mg/dL (9-23); Carbon Dioxide 32 mmol/L (20-31)
--- NOTE | 2025-07-27 08:59 | DVH ---
INDICATION: RE-CHECK LEFT PLEURAL EFFUSION, ATELECTASIS TECHNIQUE: Single frontal view of the chest was obtained COMPARISON: XY CHEST XRAY 1 VIEW on DOS: 07/24/25, XY CHEST PORTABLE on DOS: 05/29/25, XY CHEST PORTABL E on DOS: 04/10/25, XY CHEST PORTABLE on DOS: 04/08/25, XY CHEST XRAY 1 VIEW on DOS: 04/04/25, XY CHEST X RAY 1 VIEW on DOS: 07/24/25 FINDINGS: Lines and Tubes: Right IJ approach hemodialysis catheter terminating over the mid SVC. Lungs: Diffuse interstitial prominence. Left lower lung zone opacity with obscuration of the left hem idiaphragm. No pneumothorax. Cardiomediastinal contours: Unremarkable Bones: No acute osseous abnormality. IMPRESSION: Pulmonary vascular congestion with small to moderate left-sided pleural effusion and associated atele ctasis. Underlying infectious process can not be excluded.
[2025-07-27] MEDS: LIDOCAINE 1% (LOCAL ANESTH.) PF 5ml SDV ID ONE (10:42)
--- NOTE | 2025-07-27 10:49 | DVH ---
CHEST RADIOGRAPH Indication: PICC LINE PLACEMENT. Technique: Single frontal view of the chest was obtained COMPARISON: XY CHEST PORTABLE on DOS: 07/27/25, XY CHEST XRAY 1 VIEW on DOS: 07/24/25, XY CHEST SHAVON BLE on DOS: 05/29/25, XY CHEST PORTABLE on DOS: 04/10/25, XY CHEST PORTABLE on DOS: 04/08/25 FINDINGS: Lines and Tubes: Right PICC and tunneled right central venous catheter in satisfactory position. Lungs: Increased interstitial prominence. This may represent pulmonary vascular congestion and/or vir al pneumonia. Unchanged. Pleura: Small left pleural effusion, unchanged. No pneumothorax. Cardiomediastinal contours: Unremarkable Bones: Unremarkable IMPRESSION: Right PICC in satisfactory position.
--- NOTE | 2025-07-27 11:17 | DVHPN2 ---
Progress Note Date Seen: Jul 25, 2025 Medical Necessity Reason Pt with a Central, PICC or Fol: No Subjective Review of Systems: HEENT:Normal, CVS:Normal Objective vital signs Vital Sign Date Time Temp Pulse Resp B/P (MAP) Pulse Ox O2 Delivery O2 Flow Rate FiO2 07/26/25 14:00 100 07/26/25 14:00 18 Nasal Cannula* 4 36 07/26/25 13:45 109/63 (78) 99 07/26/25 12:00 98.0 98.0 Total Intake and Output 07/25/25 07/25/25 07/26/25 15:00 23:00 07:00 Intake Total 93.75 ml 181.25 ml 266.25 ml Output Total 101 ml Balance 93.75 ml 181.25 ml 165.25 ml medications Current Medications Medications Dose Ordered Sig/Sravan Route Start Time Stop Time Status Last Admin Dose Admin Norepinephrine Bitartrate 250 ml @ 3.75 mls/hr Q24H IV 07/24/25 23:00 07/26/25 06:40 30 MLS/HR Acetaminophen/ Hydrocodone Bitart 1 tab Q4HP PRN PO 07/24/25 23:30 07/26/25 06:26 1 TAB Ondansetron HCl 4 mg Q4HP PRN IV 07/24/25 23:30 Docusate Sodium 100 mg BIDPRN PRN PO 07/24/25 23:30 Acetaminophen 650 mg Q6HP PRN PO 07/24/25 23:30 Morphine Sulfate 2 mg Q4HPRN PRN IV 07/24/25 23:30 Enoxaparin Sodium 30 mg DAILY SC 07/26/25 10:00 Nitroglycerin 0.4 mg Q5MINP PRN SL 07/24/25 23:30 Morphine Sulfate 2 mg Q30M PRN IV 07/24/25 23:30 Furosemide 60 mg BID IV 07/25/25 10:00 07/26/25 09:39 60 MG Diagnostic Test (Pha) 1 strip Q6HR 07/25/25 12:00 07/26/25 12:14 1 STRIP Insulin Human Regular Q6HR SC 07/25/25 12:00 Dextrose 50 ml UD PRN IV 07/25/25 07:45 Ceftriaxone Sodium 50 ml @ 100 mls/hr DAILY@09 IV 07/26/25 09:00 07/26/25 09:39 100 MLS/HR Albumin Human 100 ml @ 100 mls/hr SAMANTHA IV 07/26/25 15:15 07/27/25 16:14 UNV Examination: GENERAL:Normal, HEENT:Normal, NECK:Normal, LUNGS:Normal laboratory and microbiology Laboratory Tests 07/26/25 08:45 Test 07/26/25 08:45 Range/Units Serum Glucose 94 74-106 mg/dL Microbiology Date/Time Source Procedure Growth Status 07/25/25 14:42 Voided Urine Urine Culture - Preliminary Resulted 07/24/25 19:05 Blood Blood Culture - Preliminary NO GROWTH AFTER 24 HOURS OF INCUBATION. Resulted Labs and/or images reviewed: Labs reviewed by me, Image(s) reviewed by me Problem List/Assessment/Plan Problem List/Assessment/Plan 74 year old female presents to the ED via EMS with SOB, LE edema, RLE thigh pain. She denies injury. She was found to be hypoxic on her normal supplemental O2. She has history of B/L pressure ulcers. hypoxia sepsis with PNA suspected PNA esrd on hd chronic anemia/anemia of ckd morbid obesity fluid overload 4+ pitting edema weakness acute hypoxic resp failure admitted to ICU due to septic shock requiring vasopressor empirical IV abx time: >45 minutes of critical care time Plan discussed with: Patient My Orders My Orders Orders - TORRIE BUTLER DO Procedure Category Date Status Time Hepatitis B Surface LAB 07/25/25 In Process Antigen 19:31 Hemodialysis Orders ORDERS 07/25/25 Transmitted 19:31 Insert Midline ORDERS 07/26/25 Transmitted 07:59 Cardiac DIET 07/26/25 Transmitted Diet-2gna,Lofat,Lochol Breakfast * Regulatory Compliance Director CONS 07/26/25 Transmitted Consult Consult Care CONS 07/26/25 Transmitted Coordinator BIPAP RT 07/26/25 Logged 06:00 Albumin 25% (Albutein) PHA 07/26/25 Logged 15:15 TORRIE BUTLER DO Jul 26, 2025 15:24
--- NOTE | 2025-07-27 11:17 | DVHPN2 ---
Progress Note Date Seen: Jul 26, 2025 Medical Necessity Reason Pt with a Central, PICC or Fol: No Objective vital signs Vital Sign Date Time Temp Pulse Resp B/P (MAP) Pulse Ox O2 Delivery O2 Flow Rate FiO2 07/26/25 14:00 100 07/26/25 14:00 18 Nasal Cannula* 4 36 07/26/25 13:45 109/63 (78) 99 07/26/25 12:00 98.0 98.0 Total Intake and Output 07/25/25 07/25/25 07/26/25 15:00 23:00 07:00 Intake Total 93.75 ml 181.25 ml 266.25 ml Output Total 101 ml Balance 93.75 ml 181.25 ml 165.25 ml medications Current Medications Medications Dose Ordered Sig/Sravan Route Start Time Stop Time Status Last Admin Dose Admin Norepinephrine Bitartrate 250 ml @ 3.75 mls/hr Q24H IV 07/24/25 23:00 07/26/25 06:40 30 MLS/HR Acetaminophen/ Hydrocodone Bitart 1 tab Q4HP PRN PO 07/24/25 23:30 07/26/25 06:26 1 TAB Ondansetron HCl 4 mg Q4HP PRN IV 07/24/25 23:30 Docusate Sodium 100 mg BIDPRN PRN PO 07/24/25 23:30 Acetaminophen 650 mg Q6HP PRN PO 07/24/25 23:30 Morphine Sulfate 2 mg Q4HPRN PRN IV 07/24/25 23:30 Enoxaparin Sodium 30 mg DAILY SC 07/26/25 10:00 Nitroglycerin 0.4 mg Q5MINP PRN SL 07/24/25 23:30 Morphine Sulfate 2 mg Q30M PRN IV 07/24/25 23:30 Furosemide 60 mg BID IV 07/25/25 10:00 07/26/25 09:39 60 MG Diagnostic Test (Pha) 1 strip Q6HR 07/25/25 12:00 07/26/25 12:14 1 STRIP Insulin Human Regular Q6HR SC 07/25/25 12:00 Dextrose 50 ml UD PRN IV 07/25/25 07:45 Ceftriaxone Sodium 50 ml @ 100 mls/hr DAILY@09 IV 07/26/25 09:00 07/26/25 09:39 100 MLS/HR Albumin Human 100 ml @ 100 mls/hr SAMANTHA IV 07/26/25 15:15 07/27/25 16:14 UNV Examination: GENERAL:Normal, HEENT:Normal laboratory and microbiology Laboratory Tests 07/26/25 08:45 Test 07/26/25 08:45 Range/Units Serum Glucose 94 74-106 mg/dL Microbiology Date/Time Source Procedure Growth Status 07/25/25 14:42 Voided Urine Urine Culture - Preliminary Resulted 07/24/25 19:05 Blood Blood Culture - Preliminary NO GROWTH AFTER 24 HOURS OF INCUBATION. Resulted Labs and/or images reviewed: Labs reviewed by me, Image(s) reviewed by me Problem List/Assessment/Plan Problem List/Assessment/Plan 74 year old female presents to the ED via EMS with SOB, LE edema, RLE thigh pain. She denies injury. She was found to be hypoxic on her normal supplemental O2. She has history of B/L pressure ulcers. hypoxia sepsis with PNA suspected PNA esrd on hd chronic anemia/anemia of ckd morbid obesity fluid overload 4+ pitting edema weakness acute hypoxic resp failure admitted to ICU due to septic shock requiring vasopressor empirical IV abx 07/26/2025: dialysis again today goal is get pt off of vasopressor and downgrade to med/surg lasix as needed continue with Abx due to pna time: >45 minutes of critical care time Plan discussed with: Patient My Orders My Orders Orders - TORRIE BUTLER DO Procedure Category Date Status Time Hepatitis B Surface LAB 07/25/25 In Process Antigen 19:31 Hemodialysis Orders ORDERS 07/25/25 Transmitted 19:31 Insert Midline ORDERS 07/26/25 Transmitted 07:59 Cardiac DIET 07/26/25 Transmitted Diet-2gna,Lofat,Lochol Breakfast * Retail Associate CONS 07/26/25 Transmitted Consult Consult Care CONS 07/26/25 Transmitted Coordinator BIPAP RT 07/26/25 Logged 06:00 Albumin 25% (Albutein) PHA 07/26/25 Logged 15:15 TORRIE BUTLER DO Jul 26, 2025 15:24
--- NOTE | 2025-07-27 11:27 | DVHINCON2 ---
Date of service: Jul 26, [address] Celis Reason for Consultation Acute on chronic hypoxic respiratory failure, COPD. History of Present Illness A 74-year-old woman with past medical history that includes COPD, CHF, hypertension, diabetes and CKD who presented to the ED via EMS on 07/24/25 with c/o shortness of breath, lower extremity edema and RLE thigh pain. Patient denied any injury. Admits to history of B/L pressure ulcers. Patient was found to be hypoxic on her normal supplemental O2. She denied chest pain, abdominal pain, nausea, vomiting, dizziness. She is short of breath on exertion. Patient is presenting from [facility] Patient was admitted for further care with the diagnosis of CHF exacerbation. Pulmonary consultation is requested for evaluation and management of acute hypoxic respiratory failure and COPD. Review of Systems: 14-point review of systems negative unless otherwise noted above. Past Medical History: COPD, AFIB, CHF, DM, High Lipids, HTN and CKD, B/L pressure ulcers. Past Surgical History: Denies Medications: Reviewed. Allergies: Zinc Oxide Sulfa antibiotics Family History: Positive for COPD, CHF, hypertension, CVA. Social History: Nonsmoker. No alcohol or illicit drug use. Family History: Cerebrovascular accident (CVA) G8 MOTHER Chronic obstructive pulmonary disease FH: CHF (congestive heart failure) G8 MOTHER Hypertension G8 MOTHER Allergies: Coded Allergies: Zinc Oxide (Verified Allergy, Mild, 03/07/25) Sulfa Antibiotics (Verified Allergy, Unknown, 01/16/22) Home Meds Active Scripts Prednisone (Prednisone) 20 Mg Tab, 20 MG PO BID for 5 Days, #10 TAB Prov:CHARISSAVIVEKVÍCTOR ELIGIBILITY COUNSELOR 01/20/22 Reported Medications Amiodarone HCl (Amiodarone HCl) 200 Mg Tab, 1 TAB PO BID 03/20/25 Levothyroxine Sodium (Levothyroxine Sodium) 137 Mcg Tab, 1 TAB PO DAILY 03/20/25 Ropinirole Hydrochloride (Ropinirole Hcl) 0.25 Mg Tab, 1 TAB PO BID for 90 Days, #180 02/26/25 Spironolactone (Spironolactone) 50 Mg Tab, 1 TAB PO DAILY for 90 Days, #90 02/26/25 Meclizine HCl (Meclizine Hydrochloride) 25 Mg Tab, 1 TAB PO DAILY PRN for 90 Days, #90 02/26/25 Midodrine Hcl (Midodrine Hcl) 10 Mg Tab, 1 TAB PO BID for 90 Days, #180 02/26/25 Potassium Chloride (Potassium Chloride ER) 20 Meq Tab, 1 TAB PO BID for 90 Days, #180 02/26/25 Fluticasone-Salmeterol (Fluticasone Propionate/SA 500-50 Mcg/Dose) 1 Aer Aer, 1 PUFF PO BID for 30 Days, #60 02/26/25 Lactulose (Lactulose) 10 Gm/15 Ml Yoselyn, 15 ML PO DAILY for 30 Days, #450 02/26/25 Gabapentin (Gabapentin) 300 Mg Cap, 300 MG PO BID 11/08/24 Pantoprazole Sodium Sesquihydr (Pantoprazole Sodium) 40 Mg Tab, 1 TAB PO DAILY 11/08/24 Atorvastatin Calcium (ATORVASTATIN CALCIUM) 20 Mg Tab, 1 TAB PO DAILY 11/08/24 Bumetanide (Bumetanide) 2 Mg Tab, 1 TAB PO BID 11/08/24 Apixaban Base (ELIQUIS) 2.5 Mg Tab, 1 TAB PO BID 11/08/24 Loperamide HCl (Imodium A-D) 1 Mg/7.5 Ml Liq, 1 MG PO, LIQ 01/17/22 Clobetasol Propionate (Clobetasol Propionate) 0.05 % Oin, 1 APPLIC TOP BID, #15 GRAMS 01/17/22 Hydroxychloroquine Sulfate (PLAQUENIL) 200 Mg Tab, 1 TAB PO DAILY, #180 TAB 3 Refills 01/17/22 Furosemide (Furosemide) 40 Mg Tab, 1 TAB PO DAILY, #30 TAB 5 Refills 01/17/22 Fluticasone-Salmeterol (Advair Diskus 500/50) 1 Puff Ih, 1 PUFF INH BID, #1 INHALER 5 Refills 01/17/22 Albuterol Sulfate (VENTOLIN MDI) 90 Mcg Ih, 90 MCG IN Q6HP for 30 Days, MCG 01/17/22 Allopurinol (Allopurinol) 100 Mg Tab, 100 MG PO DAILY for 30 Days, MG 01/17/22 Amlodipine Besylate (Amlodipine Besylate) 5 Mg Tab, 5 MG PO DAILY for 30 Days, MG 01/17/22 Pantoprazole Sodium (PANTOPRAZOLE SODIUM) 40 Mg Inj, 40 MG IV DAILY, INJ 01/17/22 Cilostazol (Cilostazol) 100 Mg Tab, 100 MG PO BID for 30 Days, MG 01/17/22 Methocarbamol (Methocarbamol) 750 Mg Tab, 750 MG PO BID, TAB 01/17/22 Sotalol Hcl (Sotalol Hcl) 80 Mg Tab, 0.5 TAB PO BID, #60 TAB 5 Refills 01/17/22 Meclizine HCl (Meclizine 25) 25 Mg Tab, 25 MG PO BID, TAB 01/17/22 Current Medications Current Medications Medications (Trade) Dose Ordered Sig/Sravan Route PRN Reason Start Time Stop Time Status Last Admin Enoxaparin Sodium (Lovenox) 30 mg DAILY SC 07/26/25 10:00 Ceftriaxone Sodium 50 ml @ 100 mls/hr DAILY@09 IV 07/26/25 09:00 07/26/25 09:39 Albumin Human 100 ml @ 100 mls/hr SAMANTHA IV 07/26/25 15:15 07/26/25 16:34 DC Albumin Human 100 ml @ 100 mls/hr SAMANTHA IV 07/26/25 15:45 07/26/25 16:34 DC Albumin Human 200 ml @ 100 mls/hr Q8H IV 07/26/25 16:30 07/27/25 02:29 UNV Vital Signs Vital Signs Date Time Temp Pulse Resp B/P (MAP) Pulse Ox O2 Delivery O2 Flow Rate FiO2 07/26/25 21:41 129/64 07/26/25 21:34 107 07/26/25 21:34 20 100 Nasal Cannula* 4 36 07/26/25 20:10 98.1 98.1 Physical Exam Gen.: Patient lying in bed in no apparent distress. On supplemental oxygen. Head: Normocephalic, atraumatic. Eyes: EOMI/PERRLA. Ears: Normal hearing. Normal anatomy. Neck/trachea: Trachea midline, supple. Nose: Normal external anatomy. Mouth: Moist mucous membranes. Chest: Decreased air entry bilaterally. No wheezing or rhonchi. Cardiovascular: Positive S1, positive S2. Regular rate and rhythm. Abdomen: Positive bowel sounds in all 4 quadrants. Soft, non-tender, non- distended. : Deferred. Rectal: Deferred. Skin: Warm, dry. Intact. Extremities: 2+ radial pulses bilaterally. No lower extremity edema. Neuro: Awake, alert, oriented x3. No gross motor or sensory deficits. Cranial nerves II through XII intact. Gait not assessed. Labs/Diagnostic Data Labs Test 07/26/25 17:28 07/26/25 08:45 07/25/25 13:11 07/25/25 04:26 Range/Units POC Glucose 119 H 70-106 mg/dl White Blood Count 17.0 H 4.4-10.8 10^3/uL Red Blood Count 3.21 L 4.0-5.20 10^6/uL Hemoglobin 8.7 L 12.2-16.2 g/dL Hematocrit 27.3 L 36.0-46.0 % Mean Corpuscular Volume 85.0 80.0-100.0 fL Mean Corpuscular Hemoglobin 26.9 L 28.0-32.0 pg Mean Corpuscular Hemoglobin Concent 31.7 L 32.0-36.0 g/dL Red Cell Distribution Width 19.4 H 11.8-14.3 % Platelet Count 417 140-450 10^3/uL Mean Platelet Volume 6.6 L 6.9-10.8 fL Neutrophils (%) (Auto) 77.9 37.0-80.0 % Lymphocytes (%) (Auto) 10.4 10.0-50.0 % Monocytes (%) (Auto) 9.3 0.0-12.0 % Eosinophils (%) (Auto) 1.7 0.0-7.0 % Basophils (%) (Auto) 0.7 0.0-2.0 % Neutrophils # (Auto) 13.2 H 1.6-8.6 10 ^3/uL Lymphocytes # (Auto) 1.8 0.4-5.4 10 ^3/uL Monocytes # (Auto) 1.6 H 0-1.3 10 ^3/uL Eosinophils # (Auto) 0.3 0-0.8 10 ^3/uL Basophils # (Auto) 0.1 0-0.2 10 ^3/uL Nucleated Red Blood Cells 0.0 % Prothrombin Time 13.0 H 9.3-11.8 sec Prothrombin Time INR 1.25 H 0.9-1.15 Activated Partial Thromboplast Time 35.9 H 24.5-34.5 SEC Sodium Level 138 136-145 mmol/L Potassium Level 3.6 3.5-5.1 mmol/L Chloride Level 98 98-107 mmol/L Carbon Dioxide Level 31 20-31 mmol/L Anion Gap 9 5-15 Blood Urea Nitrogen 10 9-23 mg/dL Creatinine 1.85 H 0.550-1.02 mg/dL Glomerular Filtration Rate Calc 28 >90 mL/min BUN/Creatinine Ratio 5.4 L 10.0-20.0 Serum Glucose 94 74-106 mg/dL Calcium Level 8.6 L 8.7-10.4 mg/dL Magnesium Level 1.8 1.6-2.6 mg/dL Lactic Acid Level 1.5 0.4-2.0 mmol/L Total Bilirubin 0.6 0.2-1.0 mg/dL Aspartate Amino Transferase (AST) 22 13-40 U/L Alanine Aminotransferase (ALT) 16 7-40 U/L Alkaline Phosphatase 169 H 46-116 U/L Total Protein 5.7 5.7-8.2 g/dL Albumin 2.5 L 3.2-4.8 g/dL Test 07/25/25 02:37 07/25/25 00:35 07/24/25 22:00 07/24/25 19:05 Range/Units Urine Color Dark-brown Yellow Urine Clarity Ex.turbid Clear Urine pH 6.5 5.0-9.0 Urine Specific [place] 1.014 1.001-1.035 Urine Protein 2+ H Negative Urine Ketones Negative Negative Urine Blood 3+ H Negative /uL Urine Nitrite Negative Negative Urine Bilirubin Negative Negative Urine Urobilinogen Normal Negative mg/dL Urine Leukocyte Esterase 2+ Negative /uL Urine RBC 122 0 - 4 /hpf Urine WBC Clumps Present None Seen /hpf Urine Microscopic WBC 3100 H 0-5 /HPF Urine Squamous Epithelial Cells Few <5 /hpf Urine Bacteria Many H None Seen /hpf Urine Mucus Few None Seen Urine Glucose Normal Normal mg/dL Blood Gas Specimen Type Arterial Blood Gas Sample Site Right radial Blood Gas Patient Temperature 37.0 Arterial Blood Date Drawn [id number] Arterial Blood pH 7.502 H 7.350-7.450 Arterial Blood Partial Pressure CO2 39.5 32.0-45.0 mmHg Arterial Blood Partial Pressure O2 86.1 83.0-108.0 mmHg Arterial Blood HCO3 30.3 H 21.0-28.0 mmol/L Arterial Blood Oxygen Saturation 96.0 94.0-98.0 % Arterial Blood Base Excess 6.6 H -2.0-3.0 mmol/L Arterial Blood Oxyhemoglobin 94.8 94.0-98.0 % Arterial Blood Carboxyhemoglobin 0.9 0.5-1.5 % Arterial Blood Methemoglobin 0.3 0.0-1.5 % [place] Test Yes Blood Gas Total Hemoglobin 9.90 L 12.0-16.0 g/dL Blood Gas Modality Mask - bipap FiO2 % 30.0 Blood Gas EPAP 5 Blood Gas IPAP 12 Troponin I High Sensitivity 19 </=34 ng/L B-Type Natriuretic Peptide 214.77 0-100 pg/mL Microbiology Date/Time Source Procedure Growth Status 07/25/25 14:42 Voided Urine Urine Culture - Preliminary Resulted 07/24/25 19:05 Blood Blood Culture - Preliminary NO GROWTH AFTER 48 HOURS OF INCUBATION. Resulted Assessment Impression: Acute on chronic hypoxic respiratory failure Dependence on supplemental oxygen CHF exacerbation Septic shock Chronic obstructive pulmonary disease Acute kidney injury Morbid obesity, BMI 37.2 Plan: Supplemental oxygen Titrate to keep O2 sats above 92% Currently on 4 LPM NC. Taper O2 as tolerated. Pressors for hemodynamic support Levophed 16 mcg/min Titrate to keep mean arterial pressure greater than 65 mmHg. Continue antibiotics Follow up cultures WBC of 17 K. Follow up Cardiology recommendations Hemodialysis per Nephrology Diurese with Lasix as tolerated Monitor renal function. Monitor electrolytes. Supplement as necessary. Monitor ins and outs. Follow up Nephrology recommendations Monitor hemoglobin - currently 8.7 g/dL Transfuse if less than 7.0 g/dL. Pain control Avoid oversedation DVT prophylaxis. Prognosis: Poor given patient's multiple co-morbidities. Condition: Critical Rest of plan per hospitalist and other consultants. A total of 35 minutes of critical care time was spent reviewing the patient record, examining the patient, making a diagnostic and therapeutic plan, discussing this plan with the medical personnel, following up on diagnostic studies and following the patient for clinical stability excluding any and all procedures. At least 50% of this time was spent in direct, [id number] contact. Thank you, Dr. Celis, for allowing me to participate in this patient's care. Further recommendations will depend on the patient's clinical course. Please do not hesitate to contact me if you have any questions or concerns. This medical document was created using an electronic medical record system with Dragon computerized dictation system. Although these documentations are being carefully reviewed, there may still be some phonetic and typographical changes. The errors are purely typographical, due to imperfection on the software program, and do not reflect any compromise in the patient's medical care. Plan discussed with: Other (RN/MD) MAGDA VASQUEZ [facility] Jul 26, 2025 22:34
[2025-07-27] MEDS: AZITHROMYCIN 500MG/250ML 250 ML IV SCH (11:30)
--- NOTE | 2025-07-27 12:51 | DVHINCON2 ---
Date of service: Jul 26, 2025 Referring Physician Noah Celis MD Reason for Consultation ESRD and dialysis management History of Present Illness Zoila Gold is a 74-year-old F with a Past Medical History pertinent for COPD, Congestive Heart Failure, Hypertension, Diabetes and ESRD who presented to the hospital via EMS on 07/24/25 from [facility] ([facility]) with c/o shortness of breath, lower extremity edema and RLE thigh pain. Patient also has history of B/L pressure ulcers. Denies any injuries. Patient was found to be hypoxic on her normal supplemental O2 along with shortness of breath on exertion. Patient was admitted for further care and management of CHF exacerbation. Pulmonary medicine is following. Patient presented fluid overload with +4 pitting edema. S/p dialysis yesterday with 3.2L removed. Scheduled for dialysis again today. Allergies: Coded Allergies: Zinc Oxide (Verified Allergy, Mild, 03/07/25) Sulfa Antibiotics (Verified Allergy, Unknown, 01/16/22) Home Meds Active Scripts Prednisone (Prednisone) 20 Mg Tab, 20 MG PO BID for 5 Days, #10 TAB Prov:[address] [employer] 01/20/22 Reported Medications Amiodarone HCl (Amiodarone HCl) 200 Mg Tab, 1 TAB PO BID 03/20/25 Levothyroxine Sodium (Levothyroxine Sodium) 137 Mcg Tab, 1 TAB PO DAILY 03/20/25 Ropinirole Hydrochloride (Ropinirole Hcl) 0.25 Mg Tab, 1 TAB PO BID for 90 Days, #180 02/26/25 Midodrine Hcl (Midodrine Hcl) 10 Mg Tab, 1 TAB PO BID for 90 Days, #180 02/26/25 Potassium Chloride (Potassium Chloride ER) 20 Meq Tab, 1 TAB PO BID for 90 Days, #180 02/26/25 Fluticasone-Salmeterol (Fluticasone Propionate/SA 500-50 Mcg/Dose) 1 Aer Aer, 1 PUFF PO BID for 30 Days, #60 02/26/25 Lactulose (Lactulose) 10 Gm/15 Ml Yoselyn, 15 ML PO DAILY for 30 Days, #450 02/26/25 Gabapentin (Gabapentin) 300 Mg Cap, 300 MG PO BID 11/08/24 Pantoprazole Sodium Sesquihydr (Pantoprazole Sodium) 40 Mg Tab, 1 TAB PO DAILY 11/08/24 Atorvastatin Calcium (ATORVASTATIN CALCIUM) 20 Mg Tab, 1 TAB PO DAILY 11/08/24 Bumetanide (Bumetanide) 2 Mg Tab, 1 TAB PO BID 11/08/24 Apixaban Base (ELIQUIS) 2.5 Mg Tab, 1 TAB PO BID 11/08/24 Clobetasol Propionate (Clobetasol Propionate) 0.05 % Oin, 1 APPLIC TOP BID, #15 GRAMS 01/17/22 Hydroxychloroquine Sulfate (PLAQUENIL) 200 Mg Tab, 1 TAB PO DAILY, #180 TAB 3 R efills 01/17/22 Fluticasone-Salmeterol (Advair Diskus 500/50) 1 Puff Ih, 1 PUFF INH BID, #1 INHALER 5 Refills 01/17/22 Albuterol Sulfate (VENTOLIN MDI) 90 Mcg Ih, 90 MCG IN Q6HP for 30 Days, MCG 01/17/22 Allopurinol (Allopurinol) 100 Mg Tab, 100 MG PO DAILY for 30 Days, MG 01/17/22 Meclizine HCl (Meclizine 25) 25 Mg Tab, 25 MG PO BID, TAB 01/17/22 Discontinued Reported Medications Spironolactone (Spironolactone) 50 Mg Tab, 1 TAB PO DAILY for 90 Days, #90 02/26/25 Meclizine HCl (Meclizine Hydrochloride) 25 Mg Tab, 1 TAB PO DAILY PRN for 90 Days, #90 02/26/25 Loperamide HCl (Imodium A-D) 1 Mg/7.5 Ml Liq, 1 MG PO, LIQ 01/17/22 Furosemide (Furosemide) 40 Mg Tab, 1 TAB PO DAILY, #30 TAB 5 Refills 01/17/22 Amlodipine Besylate (Amlodipine Besylate) 5 Mg Tab, 5 MG PO DAILY for 30 Days, MG 01/17/22 Pantoprazole Sodium (PANTOPRAZOLE SODIUM) 40 Mg Inj, 40 MG IV DAILY, INJ 01/17/22 Cilostazol (Cilostazol) 100 Mg Tab, 100 MG PO BID for 30 Days, MG 01/17/22 Methocarbamol (Methocarbamol) 750 Mg Tab, 750 MG PO BID, TAB 01/17/22 Sotalol Hcl (Sotalol Hcl) 80 Mg Tab, 0.5 TAB PO BID, #60 TAB 5 Refills 01/17/22 Current Medications Current Medications Medications (Trade) Dose Ordered Sig/Sravan Route PRN Reason Start Time Stop Time Status Last Admin Azithromycin 250 ml @ 125 mls/hr DAILY IV 07/27/25 10:00 07/27/25 11:30 Sodium Chloride (Saline Lock Ns) 10 ml QSHIFT@10,22 IV 07/27/25 22:00 Amiodarone HCl (Cordarone Tablet) 200 mg Q12HR PO 07/27/25 22:00 Gabapentin (Neurontin Capsule) 300 mg TID PO 07/27/25 22:00 Midodrine (Proamatine Tablet) 10 mg TID@0600,1200,1800 PO 07/27/25 18:00 07/27/25 20:11 Apixaban (Eliquis) 2.5 mg BID PO 07/27/25 22:00 Bumetanide (Bumex Injection) 1 mg BIDD IV 07/27/25 18:00 07/27/25 20:11 Pantoprazole Sodium (Protonix) 40 mg DAILY IV 07/28/25 10:00 Levothyroxine Sodium (Synthroid Tablet) 125 mcg QAM@0600 PO 07/28/25 06:00 Allopurinol (Zyloprim Tablet) 100 mg DAILY PO 07/28/25 10:00 Hydroxychloroquine Sulfate (Plaquenil Tablet) 200 mg DAILY PO 07/28/25 10:00 Albuterol (Ventolin Medneb) 2.5 mg Q4HPRN PRN NEB SHORTNESS OF BREATH 07/27/25 17:00 07/27/25 17:58 Patient Own Medication 0.25 mg BID PO 07/27/25 22:00 Mupirocin (Bactroban 2% Ointment) 1 applic BID EACHNOSTRI 07/27/25 22:00 08/01/25 21:59 Family History: Cerebrovascular accident (CVA) G8 MOTHER Chronic obstructive pulmonary disease FH: CHF (congestive heart failure) G8 MOTHER Hypertension G8 MOTHER Review of Systems 14-point review of systems negative unless otherwise noted above. H&P Exam Vital Signs/I&O Vital Sign Date Time Temp Pulse Resp B/P (MAP) Pulse Ox O2 Delivery O2 Flow Rate FiO2 07/27/25 20:11 113/55 07/27/25 19:29 90 16 100 2.0 28 07/27/25 18:00 Nasal Cannula* 07/27/25 16:00 97.9 97.9 Intake and Output 07/26/25 07/27/25 19:00 07:00 Intake Total 1301.25 ml 903.75 ml Output Total 4000 ml 175 ml Balance -2698.75 ml 728.75 ml Intake Oral 500 ml 600 ml IV Total 801.25 ml 303.75 ml Output Urine Total 175 ml Stool Total 0 ml Other 4000 ml Physical Exam Vitals and nursing notes reviewed. Gen.: Patient lying in bed in no apparent distress. On supplemental oxygen. HENT: Normocephalic, atraumatic. Moist mucous membranes. Eyes: EOMI/PERRLA. Neck/trachea: Trachea midline, supple. Chest: Decreased air entry bilaterally. No wheezing or rhonchi. Cardiovascular: Positive S1, positive S2. Regular rate and rhythm. Abdomen: Positive bowel sounds in all 4 quadrants. Soft, non-tender, non- distended. Skin: Warm, dry. Intact. Extremities: 2+ radial pulses bilaterally. No lower extremity edema. Neuro: Awake, alert, oriented x3. No gross motor or sensory deficits. Cranial nerves II through XII intact. Labs/Diagnostic Data Labs/Diagnostic Data Laboratory Tests Test 07/27/25 20:21 07/27/25 17:21 07/27/25 12:02 07/27/25 05:22 Range/Units POC Glucose 103 115 H 105 105 70-106 mg/dl Test 07/27/25 02:52 07/27/25 00:14 07/26/25 17:28 07/26/25 12:11 Range/Units White Blood Count 14.8 H 4.4-10.8 10^3/uL Red Blood Count 3.14 L 4.0-5.20 10^6/uL Hemoglobin 8.6 L 12.2-16.2 g/dL Hematocrit 26.6 L 36.0-46.0 % Mean Corpuscular Volume 84.8 80.0-100.0 fL Mean Corpuscular Hemoglobin 27.3 L 28.0-32.0 pg Mean Corpuscular Hemoglobin Concent 32.2 32.0-36.0 g/dL Red Cell Distribution Width 19.8 H 11.8-14.3 % Platelet Count 345 140-450 10^3/uL Mean Platelet Volume 6.5 L 6.9-10.8 fL Neutrophils (%) (Auto) 78.5 37.0-80.0 % Lymphocytes (%) (Auto) 10.9 10.0-50.0 % Monocytes (%) (Auto) 8.8 0.0-12.0 % Eosinophils (%) (Auto) 1.3 0.0-7.0 % Basophils (%) (Auto) 0.5 0.0-2.0 % Neutrophils # (Auto) 11.6 H 1.6-8.6 10 ^3/uL Lymphocytes # (Auto) 1.6 0.4-5.4 10 ^3/uL Monocytes # (Auto) 1.3 0-1.3 10 ^3/uL Eosinophils # (Auto) 0.2 0-0.8 10 ^3/uL Basophils # (Auto) 0.1 0-0.2 10 ^3/uL Nucleated Red Blood Cells 0.1 % Prothrombin Time 13.4 H 9.3-11.8 sec Prothrombin Time INR 1.30 H 0.9-1.15 Activated Partial Thromboplast Time 36.1 H 24.5-34.5 SEC Sodium Level 138 136-145 mmol/L Potassium Level 4.1 3.5-5.1 mmol/L Chloride Level 98 98-107 mmol/L Carbon Dioxide Level 32 H 20-31 mmol/L Anion Gap 8 5-15 Blood Urea Nitrogen 8 L 9-23 mg/dL Creatinine 1.52 H 0.550-1.02 mg/dL Glomerular Filtration Rate Calc 35 >90 mL/min BUN/Creatinine Ratio 5.3 L 10.0-20.0 Serum Glucose 103 74-106 mg/dL Calcium Level 9.0 8.7-10.4 mg/dL Magnesium Level 1.8 1.6-2.6 mg/dL Total Bilirubin 0.9 0.2-1.0 mg/dL Aspartate Amino Transferase (AST) 14 13-40 U/L Alanine Aminotransferase (ALT) 12 7-40 U/L Alkaline Phosphatase 136 H 46-116 U/L Total Protein 6.0 5.7-8.2 g/dL Albumin 3.1 L 3.2-4.8 g/dL Thyroid Stimulating Hormone (TSH) 0.25 L 0.55-4.78 uIU/mL POC Glucose 117 H 119 H 112 H 70-106 mg/dl Test 07/26/25 08:45 07/25/25 22:17 07/25/25 18:26 07/25/25 13:11 Range/Units White Blood Count 17.0 H 4.4-10.8 10^3/uL Red Blood Count 3.21 L 4.0-5.20 10^6/uL Hemoglobin 8.7 L 12.2-16.2 g/dL Hematocrit 27.3 L 36.0-46.0 % Mean Corpuscular Volume 85.0 80.0-100.0 fL Mean Corpuscular Hemoglobin 26.9 L 28.0-32.0 pg Mean Corpuscular Hemoglobin Concent 31.7 L 32.0-36.0 g/dL Red Cell Distribution Width 19.4 H 11.8-14.3 % Platelet Count 417 140-450 10^3/uL Mean Platelet Volume 6.6 L 6.9-10.8 fL Neutrophils (%) (Auto) 77.9 37.0-80.0 % Lymphocytes (%) (Auto) 10.4 10.0-50.0 % Monocytes (%) (Auto) 9.3 0.0-12.0 % Eosinophils (%) (Auto) 1.7 0.0-7.0 % Basophils (%) (Auto) 0.7 0.0-2.0 % Neutrophils # (Auto) 13.2 H 1.6-8.6 10 ^3/uL Lymphocytes # (Auto) 1.8 0.4-5.4 10 ^3/uL Monocytes # (Auto) 1.6 H 0-1.3 10 ^3/uL Eosinophils # (Auto) 0.3 0-0.8 10 ^3/uL Basophils # (Auto) 0.1 0-0.2 10 ^3/uL Nucleated Red Blood Cells 0.0 % Prothrombin Time 13.0 H 9.3-11.8 sec Prothrombin Time INR 1.25 H 0.9-1.15 Activated Partial Thromboplast Time 35.9 H 24.5-34.5 SEC Sodium Level 138 136-145 mmol/L Potassium Level 3.6 3.5-5.1 mmol/L Chloride Level 98 98-107 mmol/L Carbon Dioxide Level 31 20-31 mmol/L Anion Gap 9 5-15 Blood Urea Nitrogen 10 9-23 mg/dL Creatinine 1.85 H 0.550-1.02 mg/dL Glomerular Filtration Rate Calc 28 >90 mL/min BUN/Creatinine Ratio 5.4 L 10.0-20.0 Serum Glucose 94 74-106 mg/dL Calcium Level 8.6 L 8.7-10.4 mg/dL Magnesium Level 1.8 1.6-2.6 mg/dL POC Glucose 95 112 H 105 70-106 mg/dl Lactic Acid Level 1.5 0.4-2.0 mmol/L Test 07/25/25 04:26 07/25/25 02:37 07/25/25 00:35 07/24/25 22:00 Range/Units White Blood Count 18.2 H 4.4-10.8 10^3/uL Red Blood Count 3.37 L 4.0-5.20 10^6/uL Hemoglobin 9.4 L 12.2-16.2 g/dL Hematocrit 29.3 L 36.0-46.0 % Mean Corpuscular Volume 86.8 80.0-100.0 fL Mean Corpuscular Hemoglobin 27.9 L 28.0-32.0 pg Mean Corpuscular Hemoglobin Concent 32.1 32.0-36.0 g/dL Red Cell Distribution Width 19.7 H 11.8-14.3 % Platelet Count 490 H 140-450 10^3/uL Mean Platelet Volume 6.3 L 6.9-10.8 fL Neutrophils (%) (Auto) 84.0 H 37.0-80.0 % Lymphocytes (%) (Auto) 7.9 L 10.0-50.0 % Monocytes (%) (Auto) 6.9 0.0-12.0 % Eosinophils (%) (Auto) 0.8 0.0-7.0 % Basophils (%) (Auto) 0.4 0.0-2.0 % Neutrophils # (Auto) 15.3 H 1.6-8.6 10 ^3/uL Lymphocytes # (Auto) 1.4 0.4-5.4 10 ^3/uL Monocytes # (Auto) 1.3 0-1.3 10 ^3/uL Eosinophils # (Auto) 0.1 0-0.8 10 ^3/uL Basophils # (Auto) 0.1 0-0.2 10 ^3/uL Nucleated Red Blood Cells 0.0 % Sodium Level 136 136-145 mmol/L Potassium Level 4.0 3.5-5.1 mmol/L Chloride Level 98 98-107 mmol/L Carbon Dioxide Level 29 20-31 mmol/L Anion Gap 9 5-15 Blood Urea Nitrogen 10 9-23 mg/dL Creatinine 1.80 H 0.550-1.02 mg/dL Glomerular Filtration Rate Calc 29 >90 mL/min BUN/Creatinine Ratio 5.6 L 10.0-20.0 Serum Glucose 85 74-106 mg/dL Calcium Level 8.4 L 8.7-10.4 mg/dL Total Bilirubin 0.6 0.2-1.0 mg/dL Aspartate Amino Transferase (AST) 22 13-40 U/L Alanine Aminotransferase (ALT) 16 7-40 U/L Alkaline Phosphatase 169 H 46-116 U/L Total Protein 5.7 5.7-8.2 g/dL Albumin 2.5 L 3.2-4.8 g/dL Hepatitis B Surface Antigen Negative Negative Urine Color Dark-brown Yellow Urine Clarity Ex.turbid Clear Urine pH 6.5 5.0-9.0 Urine Specific [place] 1.014 1.001-1.035 Urine Protein 2+ H Negative Urine Ketones Negative Negative Urine Blood 3+ H Negative /uL Urine Nitrite Negative Negative Urine Bilirubin Negative Negative Urine Urobilinogen Normal Negative mg/dL Urine Leukocyte Esterase 2+ Negative /uL Urine RBC 122 0 - 4 /hpf Urine WBC Clumps Present None Seen /hpf Urine Microscopic WBC 3100 H 0-5 /HPF Urine Squamous Epithelial Cells Few <5 /hpf Urine Bacteria Many H None Seen /hpf Urine Mucus Few None Seen Urine Glucose Normal Normal mg/dL Blood Gas Specimen Type Arterial Blood Gas Sample Site Right radial Blood Gas Patient Temperature 37.0 Arterial Blood Date Drawn [id number] Arterial Blood pH 7.502 H 7.350-7.450 Arterial Blood Partial Pressure CO2 39.5 32.0-45.0 mmHg Arterial Blood Partial Pressure O2 86.1 83.0-108.0 mmHg Arterial Blood HCO3 30.3 H 21.0-28.0 mmol/L Arterial Blood Oxygen Saturation 96.0 94.0-98.0 % Arterial Blood Base Excess 6.6 H -2.0-3.0 mmol/L Arterial Blood Oxyhemoglobin 94.8 94.0-98.0 % Arterial Blood Carboxyhemoglobin 0.9 0.5-1.5 % Arterial Blood Methemoglobin 0.3 0.0-1.5 % [place] Test Yes Blood Gas Total Hemoglobin 9.90 L 12.0-16.0 g/dL Blood Gas Modality Mask - bipap FiO2 % 30.0 Blood Gas EPAP 5 Blood Gas IPAP 12 Troponin I High Sensitivity 19 </=34 ng/L Test 07/24/25 20:21 07/24/25 19:05 Range/Units Troponin I High Sensitivity 21 22 </=34 ng/L White Blood Count 17.4 H 4.4-10.8 10^3/uL Red Blood Count 3.40 L 4.0-5.20 10^6/uL Hemoglobin 9.3 L 12.2-16.2 g/dL Hematocrit 28.9 L 36.0-46.0 % Mean Corpuscular Volume 84.8 80.0-100.0 fL Mean Corpuscular Hemoglobin 27.3 L 28.0-32.0 pg Mean Corpuscular Hemoglobin Concent 32.2 32.0-36.0 g/dL Red Cell Distribution Width 19.3 H 11.8-14.3 % Platelet Count 490 H 140-450 10^3/uL Mean Platelet Volume 6.6 L 6.9-10.8 fL Neutrophils (%) (Auto) 82.4 H 37.0-80.0 % Lymphocytes (%) (Auto) 9.7 L 10.0-50.0 % Monocytes (%) (Auto) 6.8 0.0-12.0 % Eosinophils (%) (Auto) 0.7 0.0-7.0 % Basophils (%) (Auto) 0.4 0.0-2.0 % Neutrophils # (Auto) 14.4 H 1.6-8.6 10 ^3/uL Lymphocytes # (Auto) 1.7 0.4-5.4 10 ^3/uL Monocytes # (Auto) 1.2 0-1.3 10 ^3/uL Eosinophils # (Auto) 0.1 0-0.8 10 ^3/uL Basophils # (Auto) 0.1 0-0.2 10 ^3/uL Nucleated Red Blood Cells 0.0 % Sodium Level 138 136-145 mmol/L Potassium Level 4.1 3.5-5.1 mmol/L Chloride Level 98 98-107 mmol/L Carbon Dioxide Level 32 H 20-31 mmol/L Anion Gap 8 5-15 Blood Urea Nitrogen 12 9-23 mg/dL Creatinine 1.71 H 0.550-1.02 mg/dL Glomerular Filtration Rate Calc 31 >90 mL/min BUN/Creatinine Ratio 7.0 L 10.0-20.0 Serum Glucose 78 74-106 mg/dL Lactic Acid Level 1.2 0.4-2.0 mmol/L Calcium Level 8.1 L 8.7-10.4 mg/dL Total Bilirubin 0.7 0.2-1.0 mg/dL Aspartate Amino Transferase (AST) 26 13-40 U/L Alanine Aminotransferase (ALT) 18 7-40 U/L Alkaline Phosphatase 182 H 46-116 U/L B-Type Natriuretic Peptide 214.77 0-100 pg/mL Total Protein 5.5 L 5.7-8.2 g/dL Albumin 2.4 L 3.2-4.8 g/dL Microbiology Date/Time Source Procedure Growth Status 07/26/25 07:49 Nose MRSA Screen - Final Methicillin Resistant S.aureus Complete Assessment Hypoxia Sepsis Suspected PNA ESRD on HD Fluid overload Chronic anemia/anemia of ckd Morbid obesity Plan/Recommendation Agreement with your ongoing assessment and plan of care. ICU level of care. Vasopressors for hemodynamic support. Empirical IV antibiotics. Last dialyzed 07/25 with 3.2L removed. Scheduled for treatment again today. Diuretics with Lasix prn. DVT/GI prophylaxis. Home medications resumed as ordered. Pain management prn. Additional plan as per the hospital course. Plan discussed with: Patient, Other (RN) AIMEE FARMER DO Jul 27, 2025 12:51
--- NOTE | 2025-07-27 13:06 | DVHPN2 ---
Progress Note - Dictate Date Seen: Jul 27, 2025 Medical Necessity Reason Pt with a Central, PICC or Fol: No Subjective Patient is seen and evaluated in follow up. No acute events overnight. Patient remains on Levophed support. No pain or distress. S/p dialysis yesterday with 4L removed. vital signs Vital Sign Date Time Temp Pulse Resp B/P (MAP) Pulse Ox O2 Delivery O2 Flow Rate FiO2 07/27/25 11:45 103 13 91/58 (69) 98 07/27/25 10:00 Nasal Cannula* 3 32 07/27/25 04:00 98.0 98.0 Total Intake and Output 07/26/25 07/26/25 07/27/25 15:00 23:00 07:00 Intake Total 331.25 ml 1097.50 ml 776.25 ml Output Total 4000 ml 175 ml Balance 331.25 ml -2902.50 ml 601.25 ml medications Current Medications Medications Dose Ordered Sig/Sravan Route Start Time Stop Time Status Last Admin Dose Admin Norepinephrine Bitartrate 250 ml @ 3.75 mls/hr Q24H IV 07/24/25 23:00 07/27/25 03:00 Acetaminophen/ Hydrocodone Bitart 1 tab Q4HP PRN PO 07/24/25 23:30 07/26/25 23:11 Ondansetron HCl 4 mg Q4HP PRN IV 07/24/25 23:30 07/27/25 12:21 Docusate Sodium 100 mg BIDPRN PRN PO 07/24/25 23:30 Acetaminophen 650 mg Q6HP PRN PO 07/24/25 23:30 Morphine Sulfate 2 mg Q4HPRN PRN IV 07/24/25 23:30 Enoxaparin Sodium 30 mg DAILY SC 07/26/25 10:00 07/27/25 10:50 Nitroglycerin 0.4 mg Q5MINP PRN SL 07/24/25 23:30 Morphine Sulfate 2 mg Q30M PRN IV 07/24/25 23:30 Furosemide 60 mg BID IV 07/25/25 10:00 07/27/25 11:03 Diagnostic Test (Pha) 1 strip Q6HR 07/25/25 12:00 07/27/25 05:24 Insulin Human Regular Q6HR SC 07/25/25 12:00 Dextrose 50 ml UD PRN IV 07/25/25 07:45 Ceftriaxone Sodium 50 ml @ 100 mls/hr DAILY@09 IV 07/26/25 09:00 07/27/25 09:12 Albumin Human 200 ml @ 100 mls/hr Q8H IV 07/26/25 16:30 07/27/25 02:29 UNV Azithromycin 250 ml @ 125 mls/hr DAILY IV 07/27/25 10:00 Sodium Chloride 10 ml QSHIFT@10,22 IV 07/27/25 22:00 objective Vitals and nursing notes reviewed. Gen.: Patient lying in bed in no apparent distress. On supplemental oxygen. HENT: Normocephalic, atraumatic. Moist mucous membranes. Eyes: EOMI/PERRLA. Neck/trachea: Trachea midline, supple. Chest: Decreased air entry bilaterally. No wheezing or rhonchi. Cardiovascular: Positive S1, positive S2. Regular rate and rhythm. Abdomen: Positive bowel sounds in all 4 quadrants. Soft, non-tender, non- distended. Skin: Warm, dry. Intact. Extremities: 2+ radial pulses bilaterally. No lower extremity edema. Neuro: Awake, alert, oriented x3. No gross motor or sensory deficits. Cranial nerves II through XII intact. laboratory and microbiology Laboratory Tests 07/27/25 02:52 Test 07/27/25 02:52 Range/Units Serum Glucose 103 74-106 mg/dL Problem List Hypoxia Sepsis Suspected PNA ESRD on HD Fluid overload Chronic anemia/anemia of ckd Morbid obesity Assessment/Plan Agree with current supportive medical care. ICU level of care. Vasopressors for hemodynamic support. Keep MAP >65. S/p PICC line placement. Empirical IV antibiotics. Dialyzed 07/26, 4L removed. No dialysis today. Lasix discontinued. Started on Bumex 1 mg IV BID. DVT/GI prophylaxis. Home medications resumed as ordered. Pain management prn. Additional plan as per the hospital course. Dietary Evaluation Review Comments: Nutrition Recommendation: 1) Nephro-kishore 1 tab daily 2) Consider CCHO 60gm + cardiac diet 3) Monitor PO intake, lab values, weight trend, and I/O Expected Outcomes/Goals: Lab values to improve Fu 3-5 days Plan discussed with: Patient, Other (RN) AIMEE FARMER DO Jul 27, 2025 13:06
[2025-07-27] MEDS: ALBUTEROL SULF 2.5 MG/0.5ML(0.5%) NEB SOLN NEB PRN (17:58)
[2025-07-27] MEDS: BUMETANIDE 1mg/4ml VIAL (0.25mg/ml) IV SCH (20:11)
[2025-07-27] MEDS: MIDODRINE HCL 10 MG TAB PO SCH (20:11)
[2025-07-27] MEDS: SODIUM CHLOR 0.9% PF (SALINE LOCK) 10ML VIAL/SYR IV SCH (22:19)
[2025-07-27] MEDS: MUPIROCIN 2% OINT 15gm or 22gm FOR MRSA NARES EACHNOSTRI SCH (22:19)
[2025-07-27] MEDS: GABAPENTIN 300 MG CAP PO SCH (22:20)
[2025-07-27] MEDS: APIXABAN 2.5 MG TAB PO SCH (22:20)
[2025-07-27] MEDS: AMIODARONE HCL 200 MG TAB PO SCH (22:23)
--- NOTE | 2025-07-27 23:17 | DVHPN2 ---
Progress Note - Dictate Date Seen: Jul 27, 2025 Medical Necessity Reason Pt with a Central, PICC or Fol: No Subjective [facility] [place] DOS 07/27/2025 Patient seen and examined at bedside Remains on supplemental oxygen Overnight events reviewed. vital signs Vital Sign Date Time Temp Pulse Resp B/P (MAP) Pulse Ox O2 Delivery O2 Flow Rate FiO2 07/27/25 22:26 94/47 07/27/25 21:00 86 13 100 07/27/25 20:00 Nasal Cannula* 3 32 07/27/25 16:00 97.9 97.9 Total Intake and Output 07/26/25 07/26/25 07/27/25 15:00 23:00 07:00 Intake Total 331.25 ml 1097.50 ml 776.25 ml Output Total 4000 ml 175 ml Balance 331.25 ml -2902.50 ml 601.25 ml medications Current Medications Medications Dose Ordered Sig/Sravan Route Start Time Stop Time Status Last Admin Dose Admin Norepinephrine Bitartrate 250 ml @ 3.75 mls/hr Q24H IV 07/24/25 23:00 07/27/25 22:26 22.5 MLS/HR Acetaminophen/ Hydrocodone Bitart 1 tab Q4HP PRN PO 07/24/25 23:30 07/27/25 20:10 1 TAB Ondansetron HCl 4 mg Q4HP PRN IV 07/24/25 23:30 07/27/25 12:21 4 MG Docusate Sodium 100 mg BIDPRN PRN PO 07/24/25 23:30 Acetaminophen 650 mg Q6HP PRN PO 07/24/25 23:30 Morphine Sulfate 2 mg Q4HPRN PRN IV 07/24/25 23:30 Enoxaparin Sodium 30 mg DAILY SC 07/26/25 10:00 07/27/25 10:50 30 MG Nitroglycerin 0.4 mg Q5MINP PRN SL 07/24/25 23:30 Morphine Sulfate 2 mg Q30M PRN IV 07/24/25 23:30 Diagnostic Test (Pha) 1 strip Q6HR 07/25/25 12:00 07/27/25 18:00 1 STRIP Insulin Human Regular Q6HR SC 07/25/25 12:00 Dextrose 50 ml UD PRN IV 07/25/25 07:45 Ceftriaxone Sodium 50 ml @ 100 mls/hr DAILY@09 IV 07/26/25 09:00 07/27/25 09:12 100 MLS/HR Albumin Human 200 ml @ 100 mls/hr Q8H IV 07/26/25 16:30 07/27/25 02:29 UNV Azithromycin 250 ml @ 125 mls/hr DAILY IV 07/27/25 10:00 07/27/25 11:30 125 MLS/HR Sodium Chloride 10 ml QSHIFT@,22 IV 07/27/25 22:00 07/27/25 22:19 10 ML Amiodarone HCl 200 mg Q12HR PO 07/27/25 22:00 07/27/25 22:23 200 MG Gabapentin 300 mg TID PO 07/27/25 22:00 07/27/25 22:20 300 MG Midodrine 10 mg TID@0600,1200,1800 PO 07/27/25 18:00 07/27/25 20:11 10 MG Apixaban 2.5 mg BID PO 07/27/25 22:00 07/27/25 22:20 2.5 MG Bumetanide 1 mg BIDD IV 07/27/25 18:00 07/27/25 20:11 1 MG Pantoprazole Sodium 40 mg DAILY IV 07/28/25 10:00 Levothyroxine Sodium 125 mcg QAM@0600 PO 07/28/25 06:00 Allopurinol 100 mg DAILY PO 07/28/25 10:00 Hydroxychloroquine Sulfate 200 mg DAILY PO 07/28/25 10:00 Albuterol 2.5 mg Q4HPRN PRN NEB 07/27/25 17:00 07/27/25 17:58 2.5 MG Patient Own Medication 0.25 mg BID PO 07/27/25 22:00 07/27/25 22:19 0.25 MG Mupirocin 1 applic BID EACHNOSTRI 07/27/25 22:00 08/01/25 21:59 07/27/25 22:19 1 APPLIC objective Gen.: Patient lying in bed in no apparent distress. On supplemental oxygen. Head: Normocephalic, atraumatic. Eyes: EOMI/PERRLA. Ears: Normal hearing. Normal anatomy. Neck/trachea: Trachea midline, supple. Nose: Normal external anatomy. Mouth: Moist mucous membranes. Chest: Decreased air entry bilaterally. No wheezing or rhonchi. Cardiovascular: Positive S1, positive S2. Regular rate and rhythm. Abdomen: Positive bowel sounds in all 4 quadrants. Soft, non-tender, non- distended. : Deferred. Rectal: Deferred. Skin: Warm, dry. Intact. Extremities: 2+ radial pulses bilaterally. No lower extremity edema. Neuro: Awake, alert, oriented x3. No gross motor or sensory deficits. Cranial nerves II through XII intact. Gait not assessed. laboratory and microbiology Laboratory Tests 07/27/25 02:52 Test 07/27/25 02:52 Range/Units Serum Glucose 103 74-106 mg/dL Assessment/Plan Impression: Acute on chronic hypoxic respiratory failure Dependence on supplemental oxygen CHF exacerbation Septic shock Chronic obstructive pulmonary disease Acute kidney injury Morbid obesity, BMI 37.2 Events: Remains on 3 LPM NC Taper O2 as tolerated No acute overnight events HOB elevation Aspiration precautions Continue abx F/u cultures WBC trended down at 14.8 K. Hemoglobin is stable at 8.6 g/dL S/p dialysis yesterday with 4L removed. Nephrology recs appreciated. Pressors for hemodynamic support Levophed 16 mcg/min Titrate to keep mean arterial pressure greater than 65 mmHg. Hemodialysis per Nephrology Diurese with Lasix as tolerated Monitor renal function. Monitor electrolytes. Supplement as necessary Labs and imaging reviewed. Plan: Supplemental oxygen Titrate to keep O2 sats above 92% Pressors for hemodynamic support Titrate to keep mean arterial pressure greater than 65 mmHg. Continue antibiotics Follow up cultures Monitor WBC Follow up Cardiology recommendations Hemodialysis per Nephrology Diurese with Lasix as tolerated Monitor renal function. Monitor electrolytes. Supplement as necessary. Monitor ins and outs. Follow up Nephrology recommendations Monitor hemoglobin Transfuse if less than 7.0 g/dL. Pain control Avoid oversedation DVT prophylaxis. Prognosis: Poor given patient's multiple co-morbidities. Condition: Critical Rest of plan per hospitalist and other consultants. A total of 35 minutes of critical care time was spent reviewing the patient record, examining the patient, making a diagnostic and therapeutic plan, discussing this plan with the medical personnel, following up on diagnostic studies and following the patient for clinical stability excluding any and all procedures. At least 50% of this time was spent in direct, [id number] contact. Thank you, Dr. Celis, for allowing me to participate in this patient's care. Further recommendations will depend on the patient's clinical course. Please do not hesitate to contact me if you have any questions or concerns. This medical document was created using an electronic medical record system with [email or web address] dictation system. Although these documentations are being carefully reviewed, there may still be some phonetic and typographical changes. The errors are purely typographical, due to imperfection on the software program, and do not reflect any compromise in the patient's medical care. Dietary Evaluation Review Comments: Nutrition Recommendation: 1) Nephro-kishore 1 tab daily 2) Consider CCHO 60gm + cardiac diet 3) Monitor PO intake, lab values, weight trend, and I/O Expected Outcomes/Goals: Lab values to improve Fu 3-5 days Plan discussed with: Patient, Other (RN) Critical Care Time(min): 35 MAGDA VASQUEZ [facility] Jul 27, 2025 23:17
[2025-07-28] VITALS (95 sets, daily range): BP systolic 65–130; BP diastolic 33–75; PULSE 64–101; RESP 9–27; TEMP 97.8–98.3; O2SAT 90–100
[2025-07-28 04:09] LABS: Hematocrit 24.5 % (36.0-46.0); Hemoglobin 7.8 g/dL (12.2-16.2); Mean Corpuscular Hemoglobin 27.1 pg (28.0-32.0); Mean Corpuscular Volume 84.8 fL (80.0-100.0); Nucleated Red Blood Cells % 0.0 %
[2025-07-28 04:21] LABS: Alanine Aminotransferase 12 U/L (7-40); Anion Gap 8 (5-15); BUN/Creatinine Ratio 6.1 (10.0-20.0); Bilirubin, Total 0.6 mg/dL (0.2-1.0); Blood Urea Nitrogen 12 mg/dL (9-23); Carbon Dioxide 30 mmol/L (20-31); Glucose 81 mg/dL (74-106); Magnesium 1.6 mg/dL (1.6-2.6); Potassium 3.6 mmol/L (3.5-5.1)
[2025-07-28 04:38] LABS: Alkaline Phosphatase 127 U/L (46-116); Chloride 97 mmol/L (98-107); Sodium 135 mmol/L (136-145)
[2025-07-28 04:39] LABS: Albumin 2.7 g/dL (3.2-4.8); Calcium 8.4 mg/dL (8.7-10.4); Total Protein 5.2 g/dL (5.7-8.2)
[2025-07-28] MEDS: DOCUSATE SOD 100 MG CAP PO PRN (05:33)
[2025-07-28] MEDS: LEVOTHYROXINE SODIUM 50 MCG TAB PO SCH (05:35)
[2025-07-28] MEDS: CALCIUM GLUC 1,000mg/50ml-NS 50 ML IV ONE (05:43)
[2025-07-28] MEDS: MAGNESIUM SULFATE 1GM/100ML 100 ML IV ONE (05:47)
--- NOTE | 2025-07-28 05:58 | DVH ---
CHEST RADIOGRAPH Indication: PICC PLACEMENT AND F/U PULM CONGESTION Technique: Single frontal view of the chest was obtained COMPARISON: XY CHEST PORTABLE on DOS: 07/27/25, XY CHEST PORTABLE on DOS: 07/27/25, XY CHEST XRAY 1 V IEW on DOS: 07/24/25, XY CHEST PORTABLE on DOS: 05/29/25, XY CHEST PORTABLE on DOS: 04/10/25 FINDINGS: Lines and Tubes: Right permCath unchanged in position. Lungs: Lung bases are almost completely excluded from the image. Probable Left pleural effusion. Mini mal bibasilar pulmonary airspace disease. No pneumothorax. Cardiomediastinal contours: Unremarkable Bones: Unremarkable IMPRESSION: 1. Lung bases are almost completely excluded from the image. 2. Probable Left pleural effusion. 3. Minimal bibasilar pulmonary airspace disease. 4. Right PermCath.
[2025-07-28] MEDS: SODIUM PHOSPHATES 24 MEQ in SODIUM CHL 0.9% 100 ML IV ONE (08:05)
[2025-07-28] MEDS: PANTOPRAZOLE 40 MG/10 ML VIAL INJ IV SCH (10:26)
[2025-07-28] MEDS: ALLOPURINOL 100 MG TAB PO SCH (10:29)
[2025-07-28] MEDS: NOREPINEPHRINE 8 MG/250ML KIT 250 ML IV SCH (14:45)
[2025-07-28] MEDS: SODIUM CHL 0.9% 1000 ML BAG XX ONE (19:31)
--- NOTE | 2025-07-28 20:07 | DVHPN2 ---
Progress Note - Dictate Date Seen: Jul 28, 2025 Medical Necessity Reason Pt with a Central, PICC or Fol: No Subjective Patient is seen and evaluated in follow up in ICU. Chart/events reviewed. No new complaints. Patient is stable on 3L NC. Continues on pressor support. Urine cultures are positive for E.Coli and ESBL. Dialysis scheduled for today. vital signs Vital Sign Date Time Temp Pulse Resp B/P (MAP) Pulse Ox O2 Delivery O2 Flow Rate FiO2 07/28/25 19:00 99 17 110/51 (70) 90 07/28/25 18:20 Nasal Cannula* 3 32 07/28/25 16:00 98.0 98.0 Total Intake and Output 07/27/25 07/27/25 07/28/25 15:00 23:00 07:00 Intake Total 627.50 ml 606.25 ml 231.25 ml Output Total 175 ml Balance 627.50 ml 431.25 ml 231.25 ml medications Current Medications Medications Dose Ordered Sig/Sravan Route Start Time Stop Time Status Last Admin Dose Admin Acetaminophen/ Hydrocodone Bitart 1 tab Q4HP PRN PO 07/24/25 23:30 07/28/25 17:29 1 TAB Ondansetron HCl 4 mg Q4HP PRN IV 07/24/25 23:30 07/28/25 19:24 4 MG Docusate Sodium 100 mg BIDPRN PRN PO 07/24/25 23:30 07/28/25 05:33 100 MG Acetaminophen 650 mg Q6HP PRN PO 07/24/25 23:30 Morphine Sulfate 2 mg Q4HPRN PRN IV 07/24/25 23:30 Nitroglycerin 0.4 mg Q5MINP PRN SL 07/24/25 23:30 Morphine Sulfate 2 mg Q30M PRN IV 07/24/25 23:30 Diagnostic Test (Pha) 1 strip Q6HR 07/25/25 12:00 07/28/25 17:32 1 STRIP Insulin Human Regular Q6HR SC 07/25/25 12:00 Dextrose 50 ml UD PRN IV 07/25/25 07:45 Albumin Human 200 ml @ 100 mls/hr Q8H IV 07/26/25 16:30 07/27/25 02:29 UNV Azithromycin 250 ml @ 125 mls/hr DAILY IV 07/27/25 10:00 07/28/25 10:27 125 MLS/HR Sodium Chloride 10 ml QSHIFT@10,22 IV 07/27/25 22:00 07/28/25 10:26 10 ML Amiodarone HCl 200 mg Q12HR PO 07/27/25 22:00 07/28/25 10:29 200 MG Gabapentin 300 mg TID PO 07/27/25 22:00 07/28/25 05:31 300 MG Midodrine 10 mg TID@0600,1200,1800 PO 07/27/25 18:00 07/28/25 17:29 10 MG Apixaban 2.5 mg BID PO 07/27/25 22:00 07/27/25 22:20 2.5 MG Bumetanide 1 mg BIDD IV 07/27/25 18:00 07/28/25 17:30 1 MG Pantoprazole Sodium 40 mg DAILY IV 07/28/25 10:00 07/28/25 10:26 40 MG Levothyroxine Sodium 125 mcg QAM@0600 PO 07/28/25 06:00 07/28/25 05:35 125 MCG Allopurinol 100 mg DAILY PO 07/28/25 10:00 07/28/25 10:29 100 MG Hydroxychloroquine Sulfate 200 mg DAILY PO 07/28/25 10:00 07/28/25 10:29 200 MG Albuterol 2.5 mg Q4HPRN PRN NEB 07/27/25 17:00 07/28/25 00:33 2.5 MG Patient Own Medication 0.25 mg BID PO 07/27/25 22:00 07/28/25 10:28 0.25 MG Mupirocin 1 applic BID EACHNOSTRI 07/27/25 22:00 08/01/25 21:59 07/28/25 10:26 1 APPLIC Meropenem 50 ml @ 17 mls/hr Q12HR IV 07/28/25 22:00 Norepinephrine Bitartrate 250 ml @ 1.875 mls/ hr Q24H IV 07/28/25 14:45 07/28/25 14:45 15 MLS/HR objective Vitals and nursing notes reviewed. Gen.: Patient lying in bed in no apparent distress. On supplemental oxygen. HENT: Normocephalic, atraumatic. Moist mucous membranes. Eyes: EOMI/PERRLA. Neck/trachea: Trachea midline, supple. Chest: Decreased air entry bilaterally. No wheezing or rhonchi. Cardiovascular: Positive S1, positive S2. Regular rate and rhythm. Abdomen: Positive bowel sounds in all 4 quadrants. Soft, non-tender, non- distended. Skin: Warm, dry. Intact. Extremities: 2+ radial pulses bilaterally. No lower extremity edema. Neuro: Awake, alert, oriented x3. No gross motor or sensory deficits. Cranial nerves II through XII intact. laboratory and microbiology Laboratory Tests 07/28/25 03:25 Test 07/28/25 03:25 Range/Units Serum Glucose 81 74-106 mg/dL Problem List Hypoxia Sepsis Suspected PNA ESRD on HD Fluid overload Chronic anemia/anemia of ckd Morbid obesity Assessment/Plan Agree with current supportive medical care. ICU level of care. Vasopressors for hemodynamic support. Keep MAP >65. IV antibiotics. Urine cultures with E.Coli and ESBL. Blood cultures NTD. HD- 07/28. Bumex 1 mg IV BID. DVT/GI prophylaxis. Home medications resumed as ordered. Pain management prn. Additional plan as per the hospital course. Dietary Evaluation Review Comments: Nutrition Recommendation: 1) Nephro-kishore 1 tab daily 2) Consider CCHO 60gm + cardiac diet 3) Monitor PO intake, lab values, weight trend, and I/O Expected Outcomes/Goals: Lab values to improve Fu 3-5 days Plan discussed with: Patient, Other (RN) AIMEE FARMER DO Jul 28, 2025 20:07
--- NOTE | 2025-07-28 20:40 | DVHPN2 ---
Progress Note - Dictate Date Seen: Jul 28, 2025 Medical Necessity Reason Pt with a Central, PICC or Fol: No Subjective [facility] Patient seen and examined at bedside Remains on supplemental oxygen Overnight events reviewed. vital signs Vital Sign Date Time Temp Pulse Resp B/P (MAP) Pulse Ox O2 Delivery O2 Flow Rate FiO2 07/28/25 20:00 97.8 88 17 113/61 (78) 100 97.8 07/28/25 18:20 Nasal Cannula* 3 32 Total Intake and Output 07/27/25 07/27/25 07/28/25 15:00 23:00 07:00 Intake Total 627.50 ml 606.25 ml 231.25 ml Output Total 175 ml Balance 627.50 ml 431.25 ml 231.25 ml medications Current Medications Medications Dose Ordered Sig/Sravan Route Start Time Stop Time Status Last Admin Dose Admin Acetaminophen/ Hydrocodone Bitart 1 tab Q4HP PRN PO 07/24/25 23:30 07/28/25 17:29 1 TAB Ondansetron HCl 4 mg Q4HP PRN IV 07/24/25 23:30 07/28/25 19:24 4 MG Docusate Sodium 100 mg BIDPRN PRN PO 07/24/25 23:30 07/28/25 05:33 100 MG Acetaminophen 650 mg Q6HP PRN PO 07/24/25 23:30 Morphine Sulfate 2 mg Q4HPRN PRN IV 07/24/25 23:30 Nitroglycerin 0.4 mg Q5MINP PRN SL 07/24/25 23:30 Morphine Sulfate 2 mg Q30M PRN IV 07/24/25 23:30 Diagnostic Test (Pha) 1 strip Q6HR 07/25/25 12:00 07/28/25 17:32 1 STRIP Insulin Human Regular Q6HR SC 07/25/25 12:00 Dextrose 50 ml UD PRN IV 07/25/25 07:45 Albumin Human 200 ml @ 100 mls/hr Q8H IV 07/26/25 16:30 07/27/25 02:29 UNV Azithromycin 250 ml @ 125 mls/hr DAILY IV 07/27/25 10:00 07/28/25 10:27 125 MLS/HR Sodium Chloride 10 ml QSHIFT@ IV 07/27/25 22:00 07/28/25 10:26 10 ML Amiodarone HCl 200 mg Q12HR PO 07/27/25 22:00 07/28/25 10:29 200 MG Gabapentin 300 mg TID PO 07/27/25 22:00 07/28/25 05:31 300 MG Midodrine 10 mg TID@0600,1200,1800 PO 07/27/25 18:00 07/28/25 17:29 10 MG Apixaban 2.5 mg BID PO 07/27/25 22:00 07/27/25 22:20 2.5 MG Bumetanide 1 mg BIDD IV 07/27/25 18:00 07/28/25 17:30 1 MG Pantoprazole Sodium 40 mg DAILY IV 07/28/25 10:00 07/28/25 10:26 40 MG Levothyroxine Sodium 125 mcg QAM@0600 PO 07/28/25 06:00 07/28/25 05:35 125 MCG Allopurinol 100 mg DAILY PO 07/28/25 10:00 07/28/25 10:29 100 MG Hydroxychloroquine Sulfate 200 mg DAILY PO 07/28/25 10:00 07/28/25 10:29 200 MG Albuterol 2.5 mg Q4HPRN PRN NEB 07/27/25 17:00 07/28/25 00:33 2.5 MG Patient Own Medication 0.25 mg BID PO 07/27/25 22:00 07/28/25 10:28 0.25 MG Mupirocin 1 applic BID EACHNOSTRI 07/27/25 22:00 08/01/25 21:59 07/28/25 10:26 1 APPLIC Meropenem 50 ml @ 17 mls/hr Q12HR IV 07/28/25 22:00 Norepinephrine Bitartrate 250 ml @ 1.875 mls/ hr Q24H IV 07/28/25 14:45 07/28/25 14:45 15 MLS/HR objective Gen.: Patient lying in bed in no apparent distress. On supplemental oxygen. Head: Normocephalic, atraumatic. Eyes: EOMI/PERRLA. Ears: Normal hearing. Normal anatomy. Neck/trachea: Trachea midline, supple. Nose: Normal external anatomy. Mouth: Moist mucous membranes. Chest: Decreased air entry bilaterally. No wheezing or rhonchi. Cardiovascular: Positive S1, positive S2. Regular rate and rhythm. Abdomen: Positive bowel sounds in all 4 quadrants. Soft, non-tender, non- distended. : Deferred. Rectal: Deferred. Skin: Warm, dry. Intact. Extremities: 2+ radial pulses bilaterally. No lower extremity edema. Neuro: Awake, alert, oriented x3. No gross motor or sensory deficits. Cranial nerves II through XII intact. Gait not assessed. laboratory and microbiology Laboratory Tests 07/28/25 03:25 Test 07/28/25 03:25 Range/Units Serum Glucose 81 74-106 mg/dL Assessment/Plan Impression: Acute on chronic hypoxic respiratory failure Dependence on supplemental oxygen CHF exacerbation Septic shock Chronic obstructive pulmonary disease Acute kidney injury Morbid obesity, BMI 37.2 Events: Remains on 3 LPM NC Taper O2 as tolerated No acute overnight events HOB elevation Aspiration precautions Continue abx F/u cultures - cx positive for ESBL in urine. MRSA positive, nares. Follow up ID recommendations WBC trended down at 12.2 K. Hemoglobin trended down to 7.8 g/dL Hemodialysis scheduled today. S/p dialysis 07/26 with 4L removed. Nephrology recs appreciated. Pressors for hemodynamic support Levophed 8 mcg/min Titrate to keep mean arterial pressure greater than 65 mmHg. Improved pressor requirements. Hemodialysis per Nephrology Diurese with Bumex as tolerated Monitor renal function. Monitor electrolytes. Supplement as necessary Labs and imaging reviewed. Plan: Supplemental oxygen Titrate to keep O2 sats above 92% Pressors for hemodynamic support Titrate to keep mean arterial pressure greater than 65 mmHg. Continue antibiotics Follow up cultures Monitor WBC Follow up Cardiology recommendations Hemodialysis per Nephrology Diurese to euvolemia Monitor renal function. Monitor electrolytes. Supplement as necessary. Monitor ins and outs. Follow up Nephrology recommendations Monitor hemoglobin Transfuse if less than 7.0 g/dL. Pain control Avoid oversedation DVT prophylaxis. Prognosis: Poor given patient's multiple co-morbidities. Condition: Critical Rest of plan per hospitalist and other consultants. A total of 35 minutes of critical care time was spent reviewing the patient record, examining the patient, making a diagnostic and therapeutic plan, discussing this plan with the medical personnel, following up on diagnostic studies and following the patient for clinical stability excluding any and all procedures. At least 50% of this time was spent in direct, [id number] contact. Thank you, Dr. Celis, for allowing me to participate in this patient's care. Further recommendations will depend on the patient's clinical course. Please do not hesitate to contact me if you have any questions or concerns. This medical document was created using an electronic medical record system with [employer] dictation system. Although these documentations are being carefully reviewed, there may still be some phonetic and typographical changes. The errors are purely typographical, due to imperfection on the software program, and do not reflect any compromise in the patient's medical care. Dietary Evaluation Review Comments: Nutrition Recommendation: 1) Nephro-kishore 1 tab daily 2) Consider CCHO 60gm + cardiac diet 3) Monitor PO intake, lab values, weight trend, and I/O Expected Outcomes/Goals: Lab values to improve Fu 3-5 days Plan discussed with: Other ([place] Cool) Critical Care Time(min): 35 MAGDA VASQUEZ [facility] Jul 28, 2025 20:40
[2025-07-28] MEDS: MEROPENEM 1GM IVPB 50 ML IV SCH (22:28)
[2025-07-29] VITALS (94 sets, daily range): BP systolic 89–123; BP diastolic 39–98; PULSE 63–108; RESP 10–24; TEMP 97.8–98.6; O2SAT 92–100
[2025-07-29 05:09] LABS: Hematocrit 24.9 % (36.0-46.0)
[2025-07-29 05:11] LABS: Hemoglobin 8.1 g/dL (12.2-16.2); Mean Corpuscular Hemoglobin 27.7 pg (28.0-32.0); Mean Corpuscular Volume 85.5 fL (80.0-100.0); Nucleated Red Blood Cells % 0.0 %
[2025-07-29 05:13] LABS: Alanine Aminotransferase 11 U/L (7-40); Anion Gap 8 (5-15); BUN/Creatinine Ratio 7.4 (10.0-20.0); Bilirubin, Total 0.4 mg/dL (0.2-1.0); Blood Urea Nitrogen 13 mg/dL (9-23); Magnesium 1.7 mg/dL (1.6-2.6); Potassium 3.9 mmol/L (3.5-5.1); Sodium 137 mmol/L (136-145)
[2025-07-29 05:17] LABS: Albumin 2.5 g/dL (3.2-4.8); Alkaline Phosphatase 126 U/L (46-116); Calcium 8.3 mg/dL (8.7-10.4); Carbon Dioxide 31 mmol/L (20-31); Chloride 98 mmol/L (98-107); Glucose 108 mg/dL (74-106); Total Protein 4.8 g/dL (5.7-8.2)
--- NOTE | 2025-07-29 05:29 | DVH ---
CHEST RADIOGRAPH Indication: picc line placement, and pulm congestion Technique: Single frontal view of the chest was obtained Comparison: XY CHEST PORTABLE on DOS: 07/28/25, XY CHEST PORTABLE on DOS: 07/27/25, XY CHEST PORTABLE on DOS: 07/27/25 IMPRESSION: Right PICC line tip is seen in the region of the superior vena cava. There is a right dialysis mary ter tip tip in the region of the superior vena cava. Overall pulmonary vascular congestion has mildly improved. Probable small pleural effusion. No pneumo thorax.
[2025-07-29] MEDS: MAGNESIUM SULFATE 1GM/100ML 100 ML IV SCH (08:10)
[2025-07-29] MEDS: SODIUM CHL 0.9% 1000 ML BAG XX ONE (11:00)
--- NOTE | 2025-07-29 20:11 | DVHPN2 ---
Progress Note - Dictate Date Seen: Jul 29, 2025 Medical Necessity Reason Pt with a Central, PICC or Fol: No Subjective Patient is seen and evaluated in follow up in ICU. Chart/events reviewed. No complaints. Continues on Levophed support. Stable on 2L NC. Scheduled for dialysis. vital signs Vital Sign Date Time Temp Pulse Resp B/P (MAP) Pulse Ox O2 Delivery O2 Flow Rate FiO2 07/29/25 19:05 99 Nasal Cannula 2.0 07/29/25 19:05 28 07/29/25 18:30 96 21 116/68 (84) 07/29/25 16:00 97.8 97.8 Total Intake and Output 07/28/25 07/28/25 07/29/25 15:00 23:00 07:00 Intake Total 476.002 ml 925.750 ml 625.650 ml Output Total 3250 ml 150 ml Balance 476.002 ml -2324.250 ml 475.650 ml medications Current Medications Medications Dose Ordered Sig/Sravan Route Start Time Stop Time Status Last Admin Dose Admin Acetaminophen/ Hydrocodone Bitart 1 tab Q4HP PRN PO 07/24/25 23:30 07/29/25 15:35 1 TAB Ondansetron HCl 4 mg Q4HP PRN IV 07/24/25 23:30 07/28/25 19:24 4 MG Docusate Sodium 100 mg BIDPRN PRN PO 07/24/25 23:30 07/28/25 05:33 100 MG Acetaminophen 650 mg Q6HP PRN PO 07/24/25 23:30 Morphine Sulfate 2 mg Q4HPRN PRN IV 07/24/25 23:30 Nitroglycerin 0.4 mg Q5MINP PRN SL 07/24/25 23:30 Morphine Sulfate 2 mg Q30M PRN IV 07/24/25 23:30 Diagnostic Test (Pha) 1 strip Q6HR 07/25/25 12:00 07/29/25 17:43 1 STRIP Insulin Human Regular Q6HR SC 07/25/25 12:00 Dextrose 50 ml UD PRN IV 07/25/25 07:45 Albumin Human 200 ml @ 100 mls/hr Q8H IV 07/26/25 16:30 07/27/25 02:29 UNV Azithromycin 250 ml @ 125 mls/hr DAILY IV 07/27/25 10:00 07/29/25 09:14 125 MLS/HR Sodium Chloride 10 ml QSHIFT@10,22 IV 07/27/25 22:00 07/29/25 09:14 10 ML Amiodarone HCl 200 mg Q12HR PO 07/27/25 22:00 07/29/25 09:16 200 MG Gabapentin 300 mg TID PO 07/27/25 22:00 07/29/25 14:23 300 MG Midodrine 10 mg TID@0600,1200,1800 PO 07/27/25 18:00 07/29/25 17:43 10 MG Apixaban 2.5 mg BID PO 07/27/25 22:00 07/29/25 09:15 2.5 MG Bumetanide 1 mg BIDD IV 07/27/25 18:00 07/29/25 17:43 1 MG Pantoprazole Sodium 40 mg DAILY IV 07/28/25 10:00 07/29/25 09:14 40 MG Levothyroxine Sodium 125 mcg QAM@0600 PO 07/28/25 06:00 07/29/25 05:12 125 MCG Allopurinol 100 mg DAILY PO 07/28/25 10:00 07/29/25 09:14 100 MG Hydroxychloroquine Sulfate 200 mg DAILY PO 07/28/25 10:00 07/29/25 09:15 200 MG Albuterol 2.5 mg Q4HPRN PRN NEB 07/27/25 17:00 07/28/25 00:33 2.5 MG Patient Own Medication 0.25 mg BID PO 07/27/25 22:00 07/29/25 09:16 0.25 MG Mupirocin 1 applic BID EACHNOSTRI 07/27/25 22:00 08/01/25 21:59 07/29/25 09:17 1 APPLIC Meropenem 50 ml @ 17 mls/hr Q12HR IV 07/28/25 22:00 07/29/25 09:14 17 MLS/HR Norepinephrine Bitartrate 250 ml @ 1.875 mls/ hr Q24H IV 07/28/25 14:45 07/28/25 14:45 15 MLS/HR objective Vitals and nursing notes reviewed. Gen.: Patient lying in bed in no apparent distress. On supplemental oxygen. HENT: Normocephalic, atraumatic. Moist mucous membranes. Eyes: EOMI/PERRLA. Neck/trachea: Trachea midline, supple. Chest: Decreased air entry bilaterally. No wheezing or rhonchi. Cardiovascular: Positive S1, positive S2. Regular rate and rhythm. Abdomen: Positive bowel sounds in all 4 quadrants. Soft, non-tender, non- distended. Skin: Warm, dry. Intact. Extremities: 2+ radial pulses bilaterally. No lower extremity edema. Neuro: Awake, alert, oriented x3. No gross motor or sensory deficits. Cranial nerves II through XII intact. laboratory and microbiology Laboratory Tests 07/29/25 03:30 Test 07/29/25 03:30 Range/Units Serum Glucose 108 H 74-106 mg/dL Problem List Hypoxia Sepsis Suspected PNA ESRD on HD Fluid overload Chronic anemia/anemia of ckd Morbid obesity Assessment/Plan Agree with current supportive medical care. ICU level of care. Vasopressors for hemodynamic support. Keep MAP >65. Wean as tolerated. IV antibiotics. Urine cultures with E.Coli and ESBL. Blood cultures NTD. HD- 07/29- UF 2L as tolerated. Epogen 10,000 u SC x once. Bumex 1 mg IV BID. Magnesium replacement. DVT/GI prophylaxis. Home medications resumed as ordered. Pain management prn. Additional plan as per the hospital course. Dietary Evaluation Review Comments: Nutrition Recommendation: 1) Nephro-kishore 1 tab daily 2) Consider CCHO 60gm + cardiac diet 3) Monitor PO intake, lab values, weight trend, and I/O Expected Outcomes/Goals: Lab values to improve Fu 3-5 days Plan discussed with: Patient, Other (RN) AIMEE FARMER DO Jul 29, 2025 20:11
--- NOTE | 2025-07-29 20:21 | DVHPN2 ---
Progress Note Date Seen: Jul 29, 2025 Medical Necessity Reason Pt with a Central, PICC or Fol: No Objective vital signs Vital Sign Date Time Temp Pulse Resp B/P (MAP) Pulse Ox O2 Delivery O2 Flow Rate FiO2 07/29/25 20:00 70 20 98 Nasal Cannula* 2 07/29/25 20:00 105/66 (79) 07/29/25 16:00 97.8 97.8 Total Intake and Output 07/28/25 07/28/25 07/29/25 15:00 23:00 07:00 Intake Total 476.002 ml 925.750 ml 625.650 ml Output Total 3250 ml 150 ml Balance 476.002 ml -2324.250 ml 475.650 ml medications Current Medications Medications Dose Ordered Sig/Sravan Route Start Time Stop Time Status Last Admin Dose Admin Acetaminophen/ Hydrocodone Bitart 1 tab Q4HP PRN PO 07/24/25 23:30 07/29/25 15:35 1 TAB Ondansetron HCl 4 mg Q4HP PRN IV 07/24/25 23:30 07/28/25 19:24 4 MG Docusate Sodium 100 mg BIDPRN PRN PO 07/24/25 23:30 07/28/25 05:33 100 MG Acetaminophen 650 mg Q6HP PRN PO 07/24/25 23:30 Morphine Sulfate 2 mg Q4HPRN PRN IV 07/24/25 23:30 Nitroglycerin 0.4 mg Q5MINP PRN SL 07/24/25 23:30 Morphine Sulfate 2 mg Q30M PRN IV 07/24/25 23:30 Diagnostic Test (Pha) 1 strip Q6HR 07/25/25 12:00 07/29/25 17:43 1 STRIP Insulin Human Regular Q6HR SC 07/25/25 12:00 Dextrose 50 ml UD PRN IV 07/25/25 07:45 Albumin Human 200 ml @ 100 mls/hr Q8H IV 07/26/25 16:30 07/27/25 02:29 UNV Azithromycin 250 ml @ 125 mls/hr DAILY IV 07/27/25 10:00 07/29/25 09:14 125 MLS/HR Sodium Chloride 10 ml QSHIFT@ IV 07/27/25 22:00 07/29/25 09:14 10 ML Amiodarone HCl 200 mg Q12HR PO 07/27/25 22:00 07/29/25 09:16 200 MG Gabapentin 300 mg TID PO 07/27/25 22:00 07/29/25 14:23 300 MG Midodrine 10 mg TID@0600,1200,1800 PO 07/27/25 18:00 07/29/25 17:43 10 MG Apixaban 2.5 mg BID PO 07/27/25 22:00 07/29/25 09:15 2.5 MG Bumetanide 1 mg BIDD IV 07/27/25 18:00 07/29/25 17:43 1 MG Pantoprazole Sodium 40 mg DAILY IV 07/28/25 10:00 07/29/25 09:14 40 MG Levothyroxine Sodium 125 mcg QAM@0600 PO 07/28/25 06:00 07/29/25 05:12 125 MCG Allopurinol 100 mg DAILY PO 07/28/25 10:00 07/29/25 09:14 100 MG Hydroxychloroquine Sulfate 200 mg DAILY PO 07/28/25 10:00 07/29/25 09:15 200 MG Albuterol 2.5 mg Q4HPRN PRN NEB 07/27/25 17:00 07/28/25 00:33 2.5 MG Patient Own Medication 0.25 mg BID PO 07/27/25 22:00 07/29/25 09:16 0.25 MG Mupirocin 1 applic BID EACHNOSTRI 07/27/25 22:00 08/01/25 21:59 07/29/25 09:17 1 APPLIC Meropenem 50 ml @ 17 mls/hr Q12HR IV 07/28/25 22:00 07/29/25 09:14 17 MLS/HR Norepinephrine Bitartrate 250 ml @ 1.875 mls/ hr Q24H IV 07/28/25 14:45 07/28/25 14:45 15 MLS/HR Examination: GENERAL:Normal, HEENT:Normal, NECK:Normal laboratory and microbiology Laboratory Tests 07/29/25 03:30 Test 07/29/25 03:30 Range/Units Serum Glucose 108 H 74-106 mg/dL Microbiology Date/Time Source Procedure Growth Status 07/26/25 07:49 Nose MRSA Screen - Final Methicillin Resistant S.aureus Complete 07/25/25 14:42 Voided Urine Urine Culture - Final Proteus mirabilis Escherichia coli - ESBL Complete 07/24/25 19:05 Blood Blood Culture - Final NO GROWTH AFTER 5 DAYS OF INCUBATION. Complete Labs and/or images reviewed: Labs reviewed by me, Image(s) reviewed by me Problem List/Assessment/Plan Problem List/Assessment/Plan 74 year old female presents to the ED via EMS with SOB, LE edema, RLE thigh pain. She denies injury. She was found to be hypoxic on her normal supplemental O2. She has history of B/L pressure ulcers. hypoxia sepsis with PNA suspected PNA esrd on hd chronic anemia/anemia of ckd morbid obesity fluid overload 4+ pitting edema weakness acute hypoxic resp failure weaning down on Levophed as tolerated time: >45 minutes of critical care time Plan discussed with: Patient My Orders My Orders Orders - TORRIE BUTLER DO Procedure Category Date Status Time Chest Portable XY 07/29/25 Resulted 04:00 Communication Order ORDERS 07/29/25 Transmitted 14:17 Comprehensive LAB 07/30/25 Verified Metabolic Panel 04:00 Complete Blood Count LAB 07/30/25 Verified 04:00 Magnesium LAB 07/30/25 Verified 04:00 Phosphorus LAB 07/30/25 Verified 04:00 Chest Xray 1 View XY 07/30/25 Logged 04:00 Dietary Evaluation Review Comments: Nutrition Recommendation: 1) Nephro-kishore 1 tab daily 2) Consider CCHO 60gm + cardiac diet 3) Monitor PO intake, lab values, weight trend, and I/O Expected Outcomes/Goals: Lab values to improve Fu 3-5 days TORRIE BUTLER DO Jul 29, 2025 20:21
[2025-07-29] MEDS: EPOETIN ALFA-EPBX 10,000 UNIT/1ML VIAL SC ONE (21:22)
--- NOTE | 2025-07-29 23:00 | DVHPN2 ---
Progress Note - Dictate Date Seen: Jul 29, 2025 Medical Necessity Reason Pt with a Central, PICC or Fol: No Subjective [facility] Patient seen and examined at bedside Remains on supplemental oxygen Overnight events reviewed. vital signs Vital Sign Date Time Temp Pulse Resp B/P (MAP) Pulse Ox O2 Delivery O2 Flow Rate FiO2 07/29/25 22:00 69 12 104/55 (71) 99 07/29/25 22:00 Nasal Cannula* 2 28 07/29/25 16:00 97.8 97.8 Total Intake and Output 07/28/25 07/28/25 07/29/25 15:00 23:00 07:00 Intake Total 476.002 ml 925.750 ml 625.650 ml Output Total 3250 ml 150 ml Balance 476.002 ml -2324.250 ml 475.650 ml medications Current Medications Medications Dose Ordered Sig/Sravan Route Start Time Stop Time Status Last Admin Dose Admin Acetaminophen/ Hydrocodone Bitart 1 tab Q4HP PRN PO 07/24/25 23:30 07/29/25 15:35 1 TAB Ondansetron HCl 4 mg Q4HP PRN IV 07/24/25 23:30 07/28/25 19:24 4 MG Docusate Sodium 100 mg BIDPRN PRN PO 07/24/25 23:30 07/28/25 05:33 100 MG Acetaminophen 650 mg Q6HP PRN PO 07/24/25 23:30 Morphine Sulfate 2 mg Q4HPRN PRN IV 07/24/25 23:30 Nitroglycerin 0.4 mg Q5MINP PRN SL 07/24/25 23:30 Morphine Sulfate 2 mg Q30M PRN IV 07/24/25 23:30 Diagnostic Test (Pha) 1 strip Q6HR 07/25/25 12:00 07/29/25 17:43 1 STRIP Insulin Human Regular Q6HR SC 07/25/25 12:00 Dextrose 50 ml UD PRN IV 07/25/25 07:45 Albumin Human 200 ml @ 100 mls/hr Q8H IV 07/26/25 16:30 07/27/25 02:29 UNV Azithromycin 250 ml @ 125 mls/hr DAILY IV 07/27/25 10:00 07/29/25 09:14 125 MLS/HR Sodium Chloride 10 ml QSHIFT@ IV 07/27/25 22:00 07/29/25 21:22 10 ML Amiodarone HCl 200 mg Q12HR PO 07/27/25 22:00 07/29/25 21:20 200 MG Gabapentin 300 mg TID PO 07/27/25 22:00 07/29/25 21:21 300 MG Midodrine 10 mg TID@0600,1200,1800 PO 07/27/25 18:00 07/29/25 17:43 10 MG Apixaban 2.5 mg BID PO 07/27/25 22:00 07/29/25 21:20 2.5 MG Bumetanide 1 mg BIDD IV 07/27/25 18:00 07/29/25 17:43 1 MG Pantoprazole Sodium 40 mg DAILY IV 07/28/25 10:00 07/29/25 09:14 40 MG Levothyroxine Sodium 125 mcg QAM@0600 PO 07/28/25 06:00 07/29/25 05:12 125 MCG Allopurinol 100 mg DAILY PO 07/28/25 10:00 07/29/25 09:14 100 MG Hydroxychloroquine Sulfate 200 mg DAILY PO 07/28/25 10:00 07/29/25 09:15 200 MG Albuterol 2.5 mg Q4HPRN PRN NEB 07/27/25 17:00 07/28/25 00:33 2.5 MG Patient Own Medication 0.25 mg BID PO 07/27/25 22:00 07/29/25 21:23 0.25 MG Mupirocin 1 applic BID EACHNOSTRI 07/27/25 22:00 08/01/25 21:59 07/29/25 21:21 1 APPLIC Meropenem 50 ml @ 17 mls/hr Q12HR IV 07/28/25 22:00 07/29/25 21:19 17 MLS/HR Norepinephrine Bitartrate 250 ml @ 1.875 mls/ hr Q24H IV 07/28/25 14:45 07/28/25 14:45 15 MLS/HR objective Gen.: Patient lying in bed in no apparent distress. On supplemental oxygen. Head: Normocephalic, atraumatic. Eyes: EOMI/PERRLA. Ears: Normal hearing. Normal anatomy. Neck/trachea: Trachea midline, supple. Nose: Normal external anatomy. Mouth: Moist mucous membranes. Chest: Decreased air entry bilaterally. No wheezing or rhonchi. Cardiovascular: Positive S1, positive S2. Regular rate and rhythm. Abdomen: Positive bowel sounds in all 4 quadrants. Soft, non-tender, non- distended. : Deferred. Rectal: Deferred. Skin: Warm, dry. Intact. Extremities: 2+ radial pulses bilaterally. No lower extremity edema. Neuro: Awake, alert, oriented x3. No gross motor or sensory deficits. Cranial nerves II through XII intact. Gait not assessed. laboratory and microbiology Laboratory Tests 07/29/25 03:30 Test 07/29/25 03:30 Range/Units Serum Glucose 108 H 74-106 mg/dL Assessment/Plan Impression: Acute on chronic hypoxic respiratory failure Dependence on supplemental oxygen CHF exacerbation Septic shock Chronic obstructive pulmonary disease Acute kidney injury Morbid obesity, BMI 37.2 Events: Remains on supplemental oxygen Currently on 2 LPM NC Improving O2 requirements - continue to taper as tolerated No acute overnight events Pressors for hemodynamic support On Levophed 6 mcg/min Titrate to keep mean arterial pressure greater than 65 mmHg. Improved pressor requirements. Hemodialysis scheduled today. Follow up Nephrology recommendations Midodrine for BP support HOB elevation Aspiration precautions Continue bronchodilators Continue antibiotics Accu-Cheks. Monitor for hypoglycemia. WBC currently within normal limits Hemoglobin trended up at 8.1 g/dL Hemodialysis per Nephrology Diurese with Bumex as tolerated Monitor renal function. Monitor electrolytes. Supplement as necessary Labs and imaging reviewed. Plan: Supplemental oxygen Titrate to keep O2 sats above 92% Pressors for hemodynamic support Titrate to keep mean arterial pressure greater than 65 mmHg. Continue bronchodilators Continue antibiotics Cultures positive for ESBL in urine. MRSA positive, nares. ID recommendations appreciated Monitor WBC Follow up Cardiology recommendations On Amiodarone, Eliquis PO BID Hemodialysis per Nephrology Diurese to euvolemia Monitor renal function. Monitor electrolytes. Supplement as necessary. Monitor ins and outs. Follow up Nephrology recommendations Protonix for GI prophylaxis Monitor hemoglobin Transfuse if less than 7.0 g/dL. Pain control Avoid oversedation GI/DVT prophylaxis. Prognosis: Poor given patient's multiple co-morbidities. Condition: Critical Rest of plan per hospitalist and other consultants. A total of 35 minutes of critical care time was spent reviewing the patient record, examining the patient, making a diagnostic and therapeutic plan, discussing this plan with the medical personnel, following up on diagnostic studies and following the patient for clinical stability excluding any and all procedures. At least 50% of this time was spent in direct, [id number] contact. Thank you, Dr. Celis, for allowing me to participate in this patient's care. Further recommendations will depend on the patient's clinical course. Please do not hesitate to contact me if you have any questions or concerns. This medical document was created using an electronic medical record system with [email or web address] dictation system. Although these documentations are being carefully reviewed, there may still be some phonetic and typographical changes. The errors are purely typographical, due to imperfection on the software program, and do not reflect any compromise in the patient's medical care. Dietary Evaluation Review Comments: Nutrition Recommendation: 1) Nephro-kishore 1 tab daily 2) Consider CCHO 60gm + cardiac diet 3) Monitor PO intake, lab values, weight trend, and I/O Expected Outcomes/Goals: Lab values to improve Fu 3-5 days Plan discussed with: Other (BOSTON Altman) Critical Care Time(min): 35 MAGDA VASQUEZ ACNP Jul 29, 2025 23:00
[2025-07-30] VITALS (105 sets, daily range): BP systolic 78–172; BP diastolic 33–111; PULSE 66–116; RESP 9–22; TEMP 98–98.7; O2SAT 83–100
[2025-07-30 03:39] LABS: Hemoglobin 7.8 g/dL (12.2-16.2)
[2025-07-30 03:42] LABS: Hematocrit 24.4 % (36.0-46.0); Mean Corpuscular Hemoglobin 27.2 pg (28.0-32.0); Mean Corpuscular Volume 85.3 fL (80.0-100.0); Nucleated Red Blood Cells % 0.2 %
[2025-07-30 04:12] LABS: Alanine Aminotransferase 10 U/L (7-40); Anion Gap 8 (5-15); BUN/Creatinine Ratio 7.0 (10.0-20.0); Blood Urea Nitrogen 11 mg/dL (9-23); Chloride 100 mmol/L (98-107); Glucose 88 mg/dL (74-106); Potassium 4.1 mmol/L (3.5-5.1); Sodium 139 mmol/L (136-145)
[2025-07-30 04:13] LABS: Magnesium 2.0 mg/dL (1.6-2.6)
[2025-07-30 04:14] LABS: Bilirubin, Total 0.4 mg/dL (0.2-1.0)
[2025-07-30 04:30] LABS: Albumin 2.5 g/dL (3.2-4.8); Alkaline Phosphatase 120 U/L (46-116); Calcium 8.3 mg/dL (8.7-10.4); Carbon Dioxide 31 mmol/L (20-31); Total Protein 5.2 g/dL (5.7-8.2)
--- NOTE | 2025-07-30 05:01 | DVH ---
CHEST RADIOGRAPH Indication: PICC PLACEMENT, PULM CONGESTION Technique: Single frontal view of the chest was obtained COMPARISON: XY CHEST PORTABLE on DOS: 07/29/25, XY CHEST PORTABLE on DOS: 07/28/25, XY CHEST PORTABLE o n DOS: 07/27/25, XY CHEST PORTABLE on DOS: 07/27/25, XY CHEST XRAY 1 VIEW on DOS: 07/24/25 FINDINGS: Lines and Tubes: Unchanged. Specifically, right peripherally inserted central catheter tip overlies the proximal superior vena cava, unchanged from the prior exam. Lungs: Clear Pleura: No effusion. No pneumothorax. Cardiomediastinal contours: Cardiomegaly. Bones: Unremarkable IMPRESSION: 1. Lines and tubes unchanged. 2. Cardiomegaly.
--- NOTE | 2025-07-30 08:56 | DVHPN2 ---
Progress Note - Dictate Date Seen: Jul 30, 2025 Medical Necessity Reason Pt with a Central, PICC or Fol: No Subjective Care tranferred to our group . Patient still in ICU vital signs Vital Sign Date Time Temp Pulse Resp B/P (MAP) Pulse Ox O2 Delivery O2 Flow Rate FiO2 07/30/25 07:18 74 20 100 07/30/25 07:12 Nasal Cannula 2.0 07/30/25 07:12 28 07/30/25 06:45 118/53 (74) 07/30/25 04:00 98.7 98.7 Total Intake and Output 07/29/25 07/29/25 07/30/25 15:00 23:00 07:00 Intake Total 373.125 ml 561.875 ml 445.0 ml Output Total 2100 ml 100 ml Balance 373.125 ml -1538.125 ml 345.0 ml medications Current Medications Medications Dose Ordered Sig/Sravan Route Start Time Stop Time Status Last Admin Dose Admin Acetaminophen/ Hydrocodone Bitart 1 tab Q4HP PRN PO 07/24/25 23:30 07/30/25 04:39 1 TAB Ondansetron HCl 4 mg Q4HP PRN IV 07/24/25 23:30 07/28/25 19:24 4 MG Docusate Sodium 100 mg BIDPRN PRN PO 07/24/25 23:30 07/28/25 05:33 100 MG Acetaminophen 650 mg Q6HP PRN PO 07/24/25 23:30 Morphine Sulfate 2 mg Q4HPRN PRN IV 07/24/25 23:30 Nitroglycerin 0.4 mg Q5MINP PRN SL 07/24/25 23:30 Morphine Sulfate 2 mg Q30M PRN IV 07/24/25 23:30 Diagnostic Test (Pha) 1 strip Q6HR 07/25/25 12:00 07/30/25 05:27 1 STRIP Insulin Human Regular Q6HR SC 07/25/25 12:00 Dextrose 50 ml UD PRN IV 07/25/25 07:45 Albumin Human 200 ml @ 100 mls/hr Q8H IV 07/26/25 16:30 07/27/25 02:29 UNV Azithromycin 250 ml @ 125 mls/hr DAILY IV 07/27/25 10:00 07/29/25 09:14 125 MLS/HR Sodium Chloride 10 ml QSHIFT@10,22 IV 07/27/25 22:00 07/29/25 21:22 10 ML Amiodarone HCl 200 mg Q12HR PO 07/27/25 22:00 07/29/25 21:20 200 MG Gabapentin 300 mg TID PO 07/27/25 22:00 07/30/25 05:19 300 MG Midodrine 10 mg TID@0600,1200,1800 PO 07/27/25 18:00 07/30/25 05:19 10 MG Apixaban 2.5 mg BID PO 07/27/25 22:00 07/29/25 21:20 2.5 MG Bumetanide 1 mg BIDD IV 07/27/25 18:00 07/30/25 05:18 1 MG Pantoprazole Sodium 40 mg DAILY IV 07/28/25 10:00 07/29/25 09:14 40 MG Levothyroxine Sodium 125 mcg QAM@0600 PO 07/28/25 06:00 07/30/25 05:19 125 MCG Allopurinol 100 mg DAILY PO 07/28/25 10:00 07/29/25 09:14 100 MG Hydroxychloroquine Sulfate 200 mg DAILY PO 07/28/25 10:00 07/29/25 09:15 200 MG Albuterol 2.5 mg Q4HPRN PRN NEB 07/27/25 17:00 07/30/25 07:12 2.5 MG Patient Own Medication 0.25 mg BID PO 07/27/25 22:00 07/29/25 21:23 0.25 MG Mupirocin 1 applic BID EACHNOSTRI 07/27/25 22:00 08/01/25 21:59 07/29/25 21:21 1 APPLIC Meropenem 50 ml @ 17 mls/hr Q12HR IV 07/28/25 22:00 07/29/25 21:19 17 MLS/HR Norepinephrine Bitartrate 250 ml @ 1.875 mls/ hr Q24H IV 07/28/25 14:45 07/30/25 05:27 7.5 MLS/HR objective Awake and alert HEENT: Normocephalic Lungs : Bilateral good air entry CVS : S1,S2 RRR Abd : Soft , BS+ Ext : 3 + edema laboratory and microbiology Laboratory Tests 07/30/25 02:30 Test 07/30/25 02:30 Range/Units Serum Glucose 88 74-106 mg/dL Problem List ESKD on HD Acute respiratory failure Hypoxia Sepsis Suspected PNA Fluid overload Anemia of ckd Morbid obesity Assessment/Plan Vasopressors for hemodynamic support. Keep MAP >65. Wean as tolerated. IV antibiotics. Urine cultures with E.Coli and ESBL. Will schedule for HD in AM Dietary Evaluation Review Comments: Nutrition Recommendation: 1) Nephro-kishore 1 tab daily 2) Consider CCHO 60gm + cardiac diet 3) Monitor PO intake, lab values, weight trend, and I/O Expected Outcomes/Goals: Lab values to improve Fu 3-5 days Plan discussed with: Patient VÍCTOR JUDGE MD Jul 30, 2025 08:56
[2025-07-30] MEDS: NOREPINEPHRINE 8 MG/250ML KIT 250 ML IV SCH (17:35)
[2025-07-30] MEDS: BUMETANIDE 2.5mg/10ml (0.25 mg/ml) INJ IV SCH (17:35)
--- NOTE | 2025-07-30 23:41 | DVHPN2 ---
Progress Note - Dictate Date Seen: Jul 30, 2025 Medical Necessity Reason Pt with a Central, PICC or Fol: No Subjective [facility] Patient seen and examined at bedside Remains on supplemental oxygen Overnight events reviewed. vital signs Vital Sign Date Time Temp Pulse Resp B/P (MAP) Pulse Ox O2 Delivery O2 Flow Rate FiO2 07/30/25 23:15 98.1 76 14 98/53 (68) 98 98.1 07/30/25 22:10 Nasal Cannula* 3 32 Total Intake and Output 07/29/25 07/29/25 07/30/25 15:00 23:00 07:00 Intake Total 373.125 ml 561.875 ml 448.75 ml Output Total 2100 ml 100 ml Balance 373.125 ml -1538.125 ml 348.75 ml medications Current Medications Medications Dose Ordered Sig/Sravan Route Start Time Stop Time Status Last Admin Dose Admin Acetaminophen/ Hydrocodone Bitart 1 tab Q4HP PRN PO 07/24/25 23:30 07/30/25 20:32 1 TAB Ondansetron HCl 4 mg Q4HP PRN IV 07/24/25 23:30 07/28/25 19:24 4 MG Docusate Sodium 100 mg BIDPRN PRN PO 07/24/25 23:30 07/28/25 05:33 100 MG Acetaminophen 650 mg Q6HP PRN PO 07/24/25 23:30 Morphine Sulfate 2 mg Q4HPRN PRN IV 07/24/25 23:30 Nitroglycerin 0.4 mg Q5MINP PRN SL 07/24/25 23:30 Morphine Sulfate 2 mg Q30M PRN IV 07/24/25 23:30 Diagnostic Test (Pha) 1 strip Q6HR 07/25/25 12:00 07/30/25 17:35 1 STRIP Insulin Human Regular Q6HR SC 07/25/25 12:00 07/30/25 13:12 2 UNITS Dextrose 50 ml UD PRN IV 07/25/25 07:45 Albumin Human 200 ml @ 100 mls/hr Q8H IV 07/26/25 16:30 07/27/25 02:29 UNV Azithromycin 250 ml @ 125 mls/hr DAILY IV 07/27/25 10:00 07/30/25 10:00 125 MLS/HR Sodium Chloride 10 ml QSHIFT@10,22 IV 07/27/25 22:00 07/30/25 22:16 10 ML Amiodarone HCl 200 mg Q12HR PO 07/27/25 22:00 07/30/25 22:11 200 MG Gabapentin 300 mg TID PO 07/27/25 22:00 07/30/25 22:11 300 MG Midodrine 10 mg TID@0600,1200,1800 PO 07/27/25 18:00 07/30/25 17:37 10 MG Apixaban 2.5 mg BID PO 07/27/25 22:00 07/30/25 22:11 2.5 MG Pantoprazole Sodium 40 mg DAILY IV 07/28/25 10:00 07/30/25 11:33 40 MG Levothyroxine Sodium 125 mcg QAM@0600 PO 07/28/25 06:00 07/30/25 05:19 125 MCG Allopurinol 100 mg DAILY PO 07/28/25 10:00 07/30/25 11:34 100 MG Hydroxychloroquine Sulfate 200 mg DAILY PO 07/28/25 10:00 07/30/25 11:34 200 MG Albuterol 2.5 mg Q4HPRN PRN NEB 07/27/25 17:00 07/30/25 14:22 2.5 MG Patient Own Medication 0.25 mg BID PO 07/27/25 22:00 07/30/25 22:12 0.25 MG Mupirocin 1 applic BID EACHNOSTRI 07/27/25 22:00 08/01/25 21:59 07/30/25 22:13 1 APPLIC Meropenem 50 ml @ 17 mls/hr Q12HR IV 07/28/25 22:00 07/30/25 22:12 17 MLS/HR Norepinephrine Bitartrate 250 ml @ 1.875 mls/ hr Q24H IV 07/30/25 15:30 07/30/25 17:35 11.25 MLS/HR Bumetanide 2 mg BIDD IV 07/30/25 18:00 07/30/25 17:35 2 MG objective Gen.: Patient lying in bed in no apparent distress. On supplemental oxygen. Head: Normocephalic, atraumatic. Eyes: EOMI/PERRLA. Ears: Normal hearing. Normal anatomy. Neck/trachea: Trachea midline, supple. Nose: Normal external anatomy. Mouth: Moist mucous membranes. Chest: Decreased air entry bilaterally. No wheezing or rhonchi. Cardiovascular: Positive S1, positive S2. Regular rate and rhythm. Abdomen: Positive bowel sounds in all 4 quadrants. Soft, non-tender, non- distended. : Deferred. Rectal: Deferred. Skin: Warm, dry. Intact. Extremities: 2+ radial pulses bilaterally. No lower extremity edema. Neuro: Awake, alert, oriented x3. No gross motor or sensory deficits. Cranial nerves II through XII intact. Gait not assessed. laboratory and microbiology Laboratory Tests 07/30/25 02:30 Test 07/30/25 02:30 Range/Units Serum Glucose 88 74-106 mg/dL Assessment/Plan Impression: Acute on chronic hypoxic respiratory failure Dependence on supplemental oxygen CHF exacerbation Septic shock Chronic obstructive pulmonary disease Acute kidney injury Morbid obesity, BMI 37.2 Events: Remains on supplemental oxygen Currently on 3 LPM NC Continue to taper as tolerated No acute overnight events Pressors for hemodynamic support On Levophed 3 mcg/min Titrate to keep mean arterial pressure greater than 65 mmHg. Improved pressor requirements. Bumex IVP BID for diuresis Hemodialysis in the AM. Follow up Nephrology recommendations Midodrine for BP support HOB elevation Aspiration precautions Continue bronchodilators Continue antibiotics Accu-Cheks. Monitor for hypoglycemia. WBC currently within normal limits Hemoglobin trended down to 7.8 g/dL Hemodialysis per Nephrology Diurese with Bumex as tolerated Monitor renal function. Monitor electrolytes. Supplement as necessary Labs and imaging reviewed. Plan: Supplemental oxygen Titrate to keep O2 sats above 92% Pressors for hemodynamic support Titrate to keep mean arterial pressure greater than 65 mmHg. Continue bronchodilators Continue antibiotics Cultures positive for ESBL in urine. MRSA positive, nares. ID recommendations appreciated Monitor WBC Follow up Cardiology recommendations On Amiodarone, Eliquis PO BID Hemodialysis per Nephrology Diurese to euvolemia Monitor renal function. Monitor electrolytes. Supplement as necessary. Monitor ins and outs. Follow up Nephrology recommendations Protonix for GI prophylaxis Monitor hemoglobin Transfuse if less than 7.0 g/dL. Pain control Avoid oversedation GI/DVT prophylaxis. Prognosis: Poor given patient's multiple co-morbidities. Condition: Critical Rest of plan per hospitalist and other consultants. A total of 35 minutes of critical care time was spent reviewing the patient record, examining the patient, making a diagnostic and therapeutic plan, discussing this plan with the medical personnel, following up on diagnostic studies and following the patient for clinical stability excluding any and all procedures. At least 50% of this time was spent in direct, [id number] contact. Thank you, Dr. Celis, for allowing me to participate in this patient's care. Further recommendations will depend on the patient's clinical course. Please do not hesitate to contact me if you have any questions or concerns. This medical document was created using an electronic medical record system with [employer] dictation system. Although these documentations are being carefully reviewed, there may still be some phonetic and typographical changes. The errors are purely typographical, due to imperfection on the software program, and do not reflect any compromise in the patient's medical care. Dietary Evaluation Review Comments: Nutrition Recommendation: 1) Nephro-kishore 1 tab daily 2) Consider CCHO 60gm + cardiac diet 3) Monitor PO intake, lab values, weight trend, and I/O Expected Outcomes/Goals: Lab values to improve Fu 3-5 days Plan discussed with: Other (BOSTON Levi) Critical Care Time(min): 35 MAGDA VASQUEZ [facility] Jul 30, 2025 23:41
[2025-07-31] VITALS (97 sets, daily range): BP systolic 86–130; BP diastolic 34–77; PULSE 46–94; RESP 10–24; TEMP 98.3–98.5; O2SAT 84–100
[2025-07-31 02:47] LABS: Hematocrit 23.6 % (36.0-46.0); Hemoglobin 7.8 g/dL (12.2-16.2); Mean Corpuscular Hemoglobin 27.8 pg (28.0-32.0); Mean Corpuscular Volume 84.4 fL (80.0-100.0); Nucleated Red Blood Cells % 0.1 %
[2025-07-31 04:47] LABS: Anion Gap 7 (5-15); BUN/Creatinine Ratio 7.9 (10.0-20.0); Blood Urea Nitrogen 18 mg/dL (9-23); Chloride 98 mmol/L (98-107); Glucose 86 mg/dL (74-106); Potassium 4.6 mmol/L (3.5-5.1); Sodium 137 mmol/L (136-145)
[2025-07-31 05:48] LABS: Calcium 8.3 mg/dL (8.7-10.4); Carbon Dioxide 32 mmol/L (20-31)
[2025-07-31] MEDS: SODIUM CHL 0.9% 1000 ML BAG XX ONE (09:35)
[2025-07-31] MEDS: ALBUMIN 25% 100 ML IV PRN (12:19)
--- NOTE | 2025-07-31 12:25 | MEDREC ---
[facility] Intervention Section I [facility] Intervention: Review courses of therapy (PLEASE CONSIDER D/C AZITHROMYCIN COURSE OF THERAPY COMPLETE (5 DAYS)) RADHA GOODMAN PHARMACIST Jul 31, 2025 12:25
--- NOTE | 2025-07-31 18:47 | DVHPN2 ---
Progress Note - Dictate Date Seen: Jul 31, 2025 Medical Necessity Reason Pt with a Central, PICC or Fol: No Subjective [facility] Patient seen and examined at bedside Remains on supplemental oxygen Overnight events reviewed. vital signs Vital Sign Date Time Temp Pulse Resp B/P (MAP) Pulse Ox O2 Delivery O2 Flow Rate FiO2 07/31/25 18:15 75 11 98 07/31/25 18:00 Nasal Cannula* 2 28 07/31/25 16:00 98.3 98.3 Total Intake and Output 07/30/25 07/30/25 07/31/25 15:00 23:00 07:00 Intake Total 353.50 ml 675.125 ml 576.125 ml Output Total 50 ml 100 ml Balance 353.50 ml 625.125 ml 476.125 ml medications Current Medications Medications Dose Ordered Sig/Sravan Route Start Time Stop Time Status Last Admin Dose Admin Acetaminophen/ Hydrocodone Bitart 1 tab Q4HP PRN PO 07/24/25 23:30 07/31/25 16:55 1 TAB Ondansetron HCl 4 mg Q4HP PRN IV 07/24/25 23:30 07/28/25 19:24 4 MG Docusate Sodium 100 mg BIDPRN PRN PO 07/24/25 23:30 07/31/25 16:53 100 MG Acetaminophen 650 mg Q6HP PRN PO 07/24/25 23:30 Morphine Sulfate 2 mg Q4HPRN PRN IV 07/24/25 23:30 Nitroglycerin 0.4 mg Q5MINP PRN SL 07/24/25 23:30 Morphine Sulfate 2 mg Q30M PRN IV 07/24/25 23:30 Diagnostic Test (Pha) 1 strip Q6HR 07/25/25 12:00 07/31/25 17:50 1 STRIP Insulin Human Regular Q6HR SC 07/25/25 12:00 07/30/25 13:12 2 UNITS Dextrose 50 ml UD PRN IV 07/25/25 07:45 Albumin Human 200 ml @ 100 mls/hr Q8H IV 07/26/25 16:30 07/27/25 02:29 UNV Azithromycin 250 ml @ 125 mls/hr DAILY IV 07/27/25 10:00 07/31/25 09:19 125 MLS/HR Sodium Chloride 10 ml QSHIFT@ IV 07/27/25 22:00 07/31/25 09:19 10 ML Amiodarone HCl 200 mg Q12HR PO 07/27/25 22:00 07/31/25 09:15 200 MG Gabapentin 300 mg TID PO 07/27/25 22:00 07/31/25 15:49 300 MG Midodrine 10 mg TID@0600,1200,1800 PO 07/27/25 18:00 07/31/25 17:40 10 MG Apixaban 2.5 mg BID PO 07/27/25 22:00 07/31/25 09:16 2.5 MG Pantoprazole Sodium 40 mg DAILY IV 07/28/25 10:00 07/31/25 09:17 40 MG Levothyroxine Sodium 125 mcg QAM@0600 PO 07/28/25 06:00 07/31/25 06:34 125 MCG Allopurinol 100 mg DAILY PO 07/28/25 10:00 07/31/25 09:16 100 MG Hydroxychloroquine Sulfate 200 mg DAILY PO 07/28/25 10:00 07/31/25 09:16 200 MG Albuterol 2.5 mg Q4HPRN PRN NEB 07/27/25 17:00 07/30/25 14:22 2.5 MG Patient Own Medication 0.25 mg BID PO 07/27/25 22:00 07/31/25 09:17 0.25 MG Mupirocin 1 applic BID EACHNOSTRI 07/27/25 22:00 08/01/25 21:59 07/31/25 09:18 1 APPLIC Meropenem 50 ml @ 17 mls/hr Q12HR IV 07/28/25 22:00 07/31/25 09:17 17 MLS/HR Norepinephrine Bitartrate 250 ml @ 1.875 mls/ hr Q24H IV 07/30/25 15:30 07/31/25 06:25 5.625 MLS/HR Bumetanide 2 mg BIDD IV 07/30/25 18:00 07/31/25 17:41 2 MG Albumin Human 100 ml @ 100 mls/hr PRN PRN IV 07/31/25 08:00 07/31/25 14:05 100 MLS/HR objective Gen.: Patient lying in bed in no apparent distress. On supplemental oxygen. Head: Normocephalic, atraumatic. Eyes: EOMI/PERRLA. Ears: Normal hearing. Normal anatomy. Neck/trachea: Trachea midline, supple. Nose: Normal external anatomy. Mouth: Moist mucous membranes. Chest: Decreased air entry bilaterally. No wheezing or rhonchi. Cardiovascular: Positive S1, positive S2. Regular rate and rhythm. Abdomen: Positive bowel sounds in all 4 quadrants. Soft, non-tender, non- distended. : Deferred. Rectal: Deferred. Skin: Warm, dry. Intact. Extremities: 2+ radial pulses bilaterally. Bilateral lower extremity 4+ pitting edema. Neuro: Awake, alert, oriented x3. No gross motor or sensory deficits. Cranial nerves II through XII intact. Gait not assessed. laboratory and microbiology Laboratory Tests 07/31/25 02:00 Test 07/31/25 02:00 Range/Units Serum Glucose 86 74-106 mg/dL Assessment/Plan Impression: Acute on chronic hypoxic respiratory failure Dependence on supplemental oxygen CHF exacerbation Septic shock Chronic obstructive pulmonary disease Acute kidney injury Morbid obesity, BMI 37.2 Events: Remains on supplemental oxygen Currently on 2 LPM NC Improving oxygen requirements Continue to taper as tolerated No acute overnight events Patient is AAOx 4, bedbound. Bilateral lower extremity 4+ pitting edema. Pressors for hemodynamic support On Levophed 2 mcg/min Titrate to keep mean arterial pressure greater than 65 mmHg. Improved pressor requirements. Hemodialysis today Follow up Nephrology recommendations Midodrine for BP support HOB elevation Aspiration precautions Continue bronchodilators Continue antibiotics Accu-Cheks. Monitor for hypoglycemia. Hemoglobin stable at 7.8 g/dL Hemodialysis per Nephrology Diurese with Bumex as tolerated Monitor renal function. Monitor electrolytes. Supplement as necessary Labs and imaging reviewed. Plan: Supplemental oxygen Titrate to keep O2 sats above 92% Pressors as necessary for hemodynamic support Titrate to keep mean arterial pressure greater than 65 mmHg. Continue bronchodilators Continue antibiotics Cultures positive for ESBL in urine. MRSA positive, nares. ID recommendations appreciated Monitor WBC Follow up Cardiology recommendations On Amiodarone, Eliquis PO BID Hemodialysis per Nephrology Diurese to euvolemia Monitor renal function. Monitor electrolytes. Supplement as necessary. Monitor ins and outs. Follow up Nephrology recommendations Protonix for GI prophylaxis Monitor hemoglobin Transfuse if less than 7.0 g/dL. Pain control Avoid oversedation GI/DVT prophylaxis. Prognosis: Poor given patient's multiple co-morbidities. Condition: Critical Rest of plan per hospitalist and other consultants. A total of 35 minutes of critical care time was spent reviewing the patient record, examining the patient, making a diagnostic and therapeutic plan, discussing this plan with the medical personnel, following up on diagnostic studies and following the patient for clinical stability excluding any and all procedures. At least 50% of this time was spent in direct, [id number] contact. Thank you, Dr. Celis, for allowing me to participate in this patient's care. Further recommendations will depend on the patient's clinical course. Please do not hesitate to contact me if you have any questions or concerns. This medical document was created using an electronic medical record system with [employer] dictation system. Although these documentations are being carefully reviewed, there may still be some phonetic and typographical changes. The errors are purely typographical, due to imperfection on the software program, and do not reflect any compromise in the patient's medical care. Dietary Evaluation Review Comments: Nutrition Recommendation: 1) Nephro-kishore 1 tab daily 2) Consider CCHO 60gm + cardiac diet 3) Monitor PO intake, lab values, weight trend, and I/O Expected Outcomes/Goals: Lab values to improve Fu 3-5 days Plan discussed with: Patient, Other (BOSTON Gottlieb) Critical Care Time(min): 35 MAGDA VASQUEZ [facility] Jul 31, 2025 18:47
[2025-07-31] MEDS: EPOETIN ALFA-EPBX 10,000 UNIT/1ML VIAL SC ONE (21:11)
[2025-08-01] VITALS (105 sets, daily range): BP systolic 82–144; BP diastolic 27–125; PULSE 59–92; RESP 9–22; TEMP 98.1–98.9; O2SAT 82–100
[2025-08-01 04:24] LABS: Nucleated Red Blood Cells % 0.0 %
[2025-08-01 04:27] LABS: Hematocrit 23.9 % (36.0-46.0); Hemoglobin 7.7 g/dL (12.2-16.2); Mean Corpuscular Hemoglobin 27.5 pg (28.0-32.0); Mean Corpuscular Volume 85.2 fL (80.0-100.0)
[2025-08-01 04:33] LABS: Anion Gap 8 (5-15); Calcium 9.0 mg/dL (8.7-10.4)
[2025-08-01 04:34] LABS: Carbon Dioxide 31 mmol/L (20-31); Chloride 96 mmol/L (98-107); Potassium 5.1 mmol/L (3.5-5.1); Sodium 135 mmol/L (136-145)
[2025-08-01 04:39] LABS: Glucose 76 mg/dL (74-106)
[2025-08-01 04:40] LABS: BUN/Creatinine Ratio 9.6 (10.0-20.0)
[2025-08-01 04:41] LABS: Blood Urea Nitrogen 26 mg/dL (9-23)
--- NOTE | 2025-08-01 11:13 | DVHPN2 ---
Progress Note - Dictate Date Seen: Aug 01, 2025 Medical Necessity Reason Pt with a Central, PICC or Fol: No Subjective Care tranferred to our group . Patient still in ICU vital signs Vital Sign Date Time Temp Pulse Resp B/P (MAP) Pulse Ox O2 Delivery O2 Flow Rate FiO2 08/01/25 09:46 84 16 113/42 (65) 99 08/01/25 08:15 98.1 98.1 08/01/25 08:00 Nasal Cannula* 2 28 Total Intake and Output 07/31/25 07/31/25 08/01/25 15:00 23:00 07:00 Intake Total 430.00 ml 150.00 ml 323.750 ml Output Total 150 ml 75 ml Balance 430.00 ml 0 ml 248.750 ml medications Current Medications Medications Dose Ordered Sig/Sravan Route Start Time Stop Time Status Last Admin Dose Admin Acetaminophen/ Hydrocodone Bitart 1 tab Q4HP PRN PO 07/24/25 23:30 07/31/25 16:55 1 TAB Ondansetron HCl 4 mg Q4HP PRN IV 07/24/25 23:30 07/28/25 19:24 4 MG Docusate Sodium 100 mg BIDPRN PRN PO 07/24/25 23:30 07/31/25 16:53 100 MG Acetaminophen 650 mg Q6HP PRN PO 07/24/25 23:30 Morphine Sulfate 2 mg Q4HPRN PRN IV 07/24/25 23:30 Nitroglycerin 0.4 mg Q5MINP PRN SL 07/24/25 23:30 Morphine Sulfate 2 mg Q30M PRN IV 07/24/25 23:30 Diagnostic Test (Pha) 1 strip Q6HR 07/25/25 12:00 08/01/25 05:24 1 STRIP Insulin Human Regular Q6HR SC 07/25/25 12:00 07/30/25 13:12 2 UNITS Dextrose 50 ml UD PRN IV 07/25/25 07:45 Albumin Human 200 ml @ 100 mls/hr Q8H IV 07/26/25 16:30 07/27/25 02:29 UNV Azithromycin 250 ml @ 125 mls/hr DAILY IV 07/27/25 10:00 07/31/25 09:19 125 MLS/HR Sodium Chloride 10 ml QSHIFT@ IV 07/27/25 22:00 11/4/25 21:12 10 ML Amiodarone HCl 200 mg Q12HR PO 07/27/25 22:00 07/31/25 21:10 200 MG Gabapentin 300 mg TID PO 07/27/25 22:00 08/01/25 05:24 300 MG Midodrine 10 mg TID@0600,1200,1800 PO 07/27/25 18:00 08/01/25 05:24 10 MG Apixaban 2.5 mg BID PO 07/27/25 22:00 07/31/25 21:10 2.5 MG Pantoprazole Sodium 40 mg DAILY IV 07/28/25 10:00 07/31/25 09:17 40 MG Levothyroxine Sodium 125 mcg QAM@0600 PO 07/28/25 06:00 08/01/25 05:24 125 MCG Allopurinol 100 mg DAILY PO 07/28/25 10:00 07/31/25 09:16 100 MG Hydroxychloroquine Sulfate 200 mg DAILY PO 07/28/25 10:00 07/31/25 09:16 200 MG Albuterol 2.5 mg Q4HPRN PRN NEB 07/27/25 17:00 07/30/25 14:22 2.5 MG Patient Own Medication 0.25 mg BID PO 07/27/25 22:00 07/31/25 21:12 0.25 MG Mupirocin 1 applic BID EACHNOSTRI 07/27/25 22:00 08/01/25 21:59 07/31/25 21:12 1 APPLIC Meropenem 50 ml @ 17 mls/hr Q12HR IV 07/28/25 22:00 07/31/25 21:10 17 MLS/HR Norepinephrine Bitartrate 250 ml @ 1.875 mls/ hr Q24H IV 07/30/25 15:30 07/31/25 06:25 5.625 MLS/HR Bumetanide 2 mg BIDD IV 07/30/25 18:00 08/01/25 05:25 2 MG Albumin Human 100 ml @ 100 mls/hr PRN PRN IV 07/31/25 08:00 07/31/25 14:05 100 MLS/HR objective Awake and alert HEENT: Normocephalic Lungs : Bilateral good air entry CVS : S1,S2 RRR Abd : Soft , BS+ Ext : 3 + edema laboratory and microbiology Laboratory Tests 08/01/25 03:50 Test 08/01/25 03:50 Range/Units Serum Glucose 76 74-106 mg/dL Problem List ESKD on HD Acute respiratory failure Hypoxia Sepsis Suspected PNA Fluid overload Anemia of ckd Morbid obesity Assessment/Plan Vasopressors for hemodynamic support. Keep MAP >65. Wean as tolerated. IV antibiotics. Urine cultures with E.Coli and ESBL. Will schedule for HD in AM Dietary Evaluation Review Comments: Nutrition Recommendation: 1) Nephro-kishore 1 tab daily 2) Consider CCHO 60gm + cardiac diet 3) Monitor PO intake, lab values, weight trend, and I/O Expected Outcomes/Goals: Lab values to improve Fu 3-5 days Plan discussed with: Patient VÍCTOR JUDGE MD Aug 01, 2025 11:13
--- NOTE | 2025-08-01 15:31 | DVHPN2 ---
Progress Note Date Seen: Jul 30, 2025 Medical Necessity Reason Pt with a Central, PICC or Fol: No Objective vital signs Vital Sign Date Time Temp Pulse Resp B/P (MAP) Pulse Ox O2 Delivery O2 Flow Rate FiO2 08/01/25 15:18 85/42 08/01/25 14:03 75 18 100 08/01/25 13:57 Room Air* 0 21 08/01/25 08:15 98.1 98.1 Total Intake and Output 07/31/25 07/31/25 08/01/25 15:00 23:00 07:00 Intake Total 430.00 ml 150.00 ml 323.750 ml Output Total 150 ml 75 ml Balance 430.00 ml 0 ml 248.750 ml medications Current Medications Medications Dose Ordered Sig/Sravan Route Start Time Stop Time Status Last Admin Dose Admin Acetaminophen/ Hydrocodone Bitart 1 tab Q4HP PRN PO 07/24/25 23:30 07/31/25 16:55 1 TAB Ondansetron HCl 4 mg Q4HP PRN IV 07/24/25 23:30 07/28/25 19:24 4 MG Docusate Sodium 100 mg BIDPRN PRN PO 07/24/25 23:30 07/31/25 16:53 100 MG Acetaminophen 650 mg Q6HP PRN PO 07/24/25 23:30 Morphine Sulfate 2 mg Q4HPRN PRN IV 07/24/25 23:30 Nitroglycerin 0.4 mg Q5MINP PRN SL 07/24/25 23:30 Morphine Sulfate 2 mg Q30M PRN IV 07/24/25 23:30 Diagnostic Test (Pha) 1 strip Q6HR 07/25/25 12:00 08/01/25 12:00 1 STRIP Insulin Human Regular Q6HR SC 07/25/25 12:00 07/30/25 13:12 2 UNITS Dextrose 50 ml UD PRN IV 07/25/25 07:45 Albumin Human 200 ml @ 100 mls/hr Q8H IV 07/26/25 16:30 07/27/25 02:29 UNV Azithromycin 250 ml @ 125 mls/hr DAILY IV 07/27/25 10:00 08/01/25 11:00 125 MLS/HR Sodium Chloride 10 ml QSHIFT@ IV 07/27/25 22:00 08/01/25 11:00 10 ML Amiodarone HCl 200 mg Q12HR PO 07/27/25 22:00 08/01/25 11:00 200 MG Midodrine 10 mg TID@0600,1200,1800 PO 07/27/25 18:00 08/01/25 15:17 10 MG Apixaban 2.5 mg BID PO 07/27/25 22:00 08/01/25 11:00 2.5 MG Pantoprazole Sodium 40 mg DAILY IV 07/28/25 10:00 08/01/25 11:00 40 MG Levothyroxine Sodium 125 mcg QAM@0600 PO 07/28/25 06:00 08/01/25 05:24 125 MCG Hydroxychloroquine Sulfate 200 mg DAILY PO 07/28/25 10:00 07/31/25 09:16 200 MG Albuterol 2.5 mg Q4HPRN PRN NEB 07/27/25 17:00 08/01/25 13:57 2.5 MG Patient Own Medication 0.25 mg BID PO 07/27/25 22:00 08/01/25 11:00 0.25 MG Mupirocin 1 applic BID EACHNOSTRI 07/27/25 22:00 08/01/25 21:59 08/01/25 11:00 1 APPLIC Norepinephrine Bitartrate 250 ml @ 1.875 mls/ hr Q24H IV 07/30/25 15:30 07/31/25 06:25 5.625 MLS/HR Bumetanide 2 mg BIDD IV 07/30/25 18:00 08/01/25 05:25 2 MG Albumin Human 100 ml @ 100 mls/hr PRN PRN IV 07/31/25 08:00 07/31/25 14:05 100 MLS/HR Meropenem 50 ml @ 17 mls/hr DAILY@2200 IV 08/01/25 22:00 Allopurinol 100 mg MWF PO 08/03/25 10:00 Gabapentin 300 mg MWF PO 08/03/25 10:00 laboratory and microbiology Laboratory Tests 08/01/25 03:50 Test 08/01/25 03:50 Range/Units Serum Glucose 76 74-106 mg/dL Microbiology Date/Time Source Procedure Growth Status 07/26/25 07:49 Nose MRSA Screen - Final Methicillin Resistant S.aureus Complete 07/25/25 14:42 Voided Urine Urine Culture - Final Proteus mirabilis Escherichia coli - ESBL Complete 07/24/25 19:05 Blood Blood Culture - Final NO GROWTH AFTER 5 DAYS OF INCUBATION. Complete Labs and/or images reviewed: Labs reviewed by me, Image(s) reviewed by me Problem List/Assessment/Plan Problem List/Assessment/Plan 74 year old female presents to the ED via EMS with SOB, LE edema, RLE thigh pain. She denies injury. She was found to be hypoxic on her normal supplemental O2. She has history of B/L pressure ulcers. hypoxia sepsis with PNA suspected PNA esrd on hd chronic anemia/anemia of ckd morbid obesity fluid overload 4+ pitting edema weakness acute hypoxic resp failure weaning down on Levophed as tolerated time: >45 minutes of critical care time Plan discussed with: Patient My Orders My Orders Orders - TORRIE BUTLER DO Procedure Category Date Status Time Meropenem 500mg Ivpb PHA 08/01/25 In Process (Merrem 500mg/50ml 22:00 Allopurinol Tablet PHA 08/03/25 In Process (Zyloprim Tablet) 10:00 Gabapentin Capsule PHA 08/03/25 In Process (Neurontin Capsule) 10:00 Dietary Evaluation Review Comments: Nutrition Recommendation: 1) Nephro-kishore 1 tab daily 2) Consider CCHO 60gm + cardiac diet 3) Monitor PO intake, lab values, weight trend, and I/O Expected Outcomes/Goals: Lab values to improve Fu 3-5 days TORRIE BUTLER DO Aug 01, 2025 15:31
--- NOTE | 2025-08-01 15:39 | DVHPN2 ---
Progress Note Date Seen: Aug 01, 2025 Medical Necessity Reason Pt with a Central, PICC or Fol: No Objective vital signs Vital Sign Date Time Temp Pulse Resp B/P (MAP) Pulse Ox O2 Delivery O2 Flow Rate FiO2 08/01/25 15:18 85/42 08/01/25 14:03 75 18 100 08/01/25 13:57 Room Air* 0 21 08/01/25 08:15 98.1 98.1 Total Intake and Output 07/31/25 07/31/25 08/01/25 15:00 23:00 07:00 Intake Total 430.00 ml 150.00 ml 323.750 ml Output Total 150 ml 75 ml Balance 430.00 ml 0 ml 248.750 ml medications Current Medications Medications Dose Ordered Sig/Sravan Route Start Time Stop Time Status Last Admin Dose Admin Acetaminophen/ Hydrocodone Bitart 1 tab Q4HP PRN PO 07/24/25 23:30 07/31/25 16:55 1 TAB Ondansetron HCl 4 mg Q4HP PRN IV 07/24/25 23:30 07/28/25 19:24 4 MG Docusate Sodium 100 mg BIDPRN PRN PO 07/24/25 23:30 07/31/25 16:53 100 MG Acetaminophen 650 mg Q6HP PRN PO 07/24/25 23:30 Morphine Sulfate 2 mg Q4HPRN PRN IV 07/24/25 23:30 Nitroglycerin 0.4 mg Q5MINP PRN SL 07/24/25 23:30 Morphine Sulfate 2 mg Q30M PRN IV 07/24/25 23:30 Diagnostic Test (Pha) 1 strip Q6HR 07/25/25 12:00 08/01/25 12:00 1 STRIP Insulin Human Regular Q6HR SC 07/25/25 12:00 07/30/25 13:12 2 UNITS Dextrose 50 ml UD PRN IV 07/25/25 07:45 Albumin Human 200 ml @ 100 mls/hr Q8H IV 07/26/25 16:30 07/27/25 02:29 UNV Azithromycin 250 ml @ 125 mls/hr DAILY IV 07/27/25 10:00 08/01/25 11:00 125 MLS/HR Sodium Chloride 10 ml QSHIFT@ IV 07/27/25 22:00 08/01/25 11:00 10 ML Amiodarone HCl 200 mg Q12HR PO 07/27/25 22:00 08/01/25 11:00 200 MG Midodrine 10 mg TID@0600,1200,1800 PO 07/27/25 18:00 08/01/25 15:17 10 MG Apixaban 2.5 mg BID PO 07/27/25 22:00 08/01/25 11:00 2.5 MG Pantoprazole Sodium 40 mg DAILY IV 07/28/25 10:00 08/01/25 11:00 40 MG Levothyroxine Sodium 125 mcg QAM@0600 PO 07/28/25 06:00 08/01/25 05:24 125 MCG Hydroxychloroquine Sulfate 200 mg DAILY PO 07/28/25 10:00 07/31/25 09:16 200 MG Albuterol 2.5 mg Q4HPRN PRN NEB 07/27/25 17:00 08/01/25 13:57 2.5 MG Patient Own Medication 0.25 mg BID PO 07/27/25 22:00 08/01/25 11:00 0.25 MG Mupirocin 1 applic BID EACHNOSTRI 07/27/25 22:00 08/01/25 21:59 08/01/25 11:00 1 APPLIC Norepinephrine Bitartrate 250 ml @ 1.875 mls/ hr Q24H IV 07/30/25 15:30 07/31/25 06:25 5.625 MLS/HR Bumetanide 2 mg BIDD IV 07/30/25 18:00 08/01/25 05:25 2 MG Albumin Human 100 ml @ 100 mls/hr PRN PRN IV 07/31/25 08:00 07/31/25 14:05 100 MLS/HR Meropenem 50 ml @ 17 mls/hr DAILY@2200 IV 08/01/25 22:00 Allopurinol 100 mg MWF PO 08/03/25 10:00 Gabapentin 300 mg MWF PO 08/03/25 10:00 laboratory and microbiology Laboratory Tests 08/01/25 03:50 Test 08/01/25 03:50 Range/Units Serum Glucose 76 74-106 mg/dL Microbiology Date/Time Source Procedure Growth Status 07/26/25 07:49 Nose MRSA Screen - Final Methicillin Resistant S.aureus Complete 07/25/25 14:42 Voided Urine Urine Culture - Final Proteus mirabilis Escherichia coli - ESBL Complete 07/24/25 19:05 Blood Blood Culture - Final NO GROWTH AFTER 5 DAYS OF INCUBATION. Complete Labs and/or images reviewed: Labs reviewed by me Problem List/Assessment/Plan Problem List/Assessment/Plan 74 year old female presents to the ED via EMS with SOB, LE edema, RLE thigh pain. She denies injury. She was found to be hypoxic on her normal supplemental O2. She has history of B/L pressure ulcers. hypoxia sepsis with PNA suspected PNA esrd on hd chronic anemia/anemia of ckd morbid obesity fluid overload 4+ pitting edema weakness acute hypoxic resp failure 08/01/2025 weaning down on Levophed as tolerated pt is on 2 of Levophed, plan to wean off today time: >45 minutes of critical care time Plan discussed with: Patient My Orders My Orders Orders - TORRIE BUTLER DO Procedure Category Date Status Time Meropenem 500mg Ivpb PHA 08/01/25 In Process (Merrem 500mg/50ml 22:00 Allopurinol Tablet PHA 08/03/25 In Process (Zyloprim Tablet) 10:00 Gabapentin Capsule PHA 08/03/25 In Process (Neurontin Capsule) 10:00 Dietary Evaluation Review Comments: Nutrition Recommendation: 1) Nephro-kishore 1 tab daily 2) Consider CCHO 60gm + cardiac diet 3) Monitor PO intake, lab values, weight trend, and I/O Expected Outcomes/Goals: Lab values to improve Fu 3-5 days TORRIE BUTLER DO Aug 01, 2025 15:39
[2025-08-01] MEDS: LEVOTHYROXINE SODIUM 50 MCG TAB PO SCH (18:30)
--- NOTE | 2025-08-01 19:11 | DVHPN2 ---
Progress Note - Dictate Date Seen: Aug 01, 2025 Medical Necessity Reason Pt with a Central, PICC or Fol: No Subjective [facility] Patient seen and examined at bedside Remains on supplemental oxygen Overnight events reviewed. vital signs Vital Sign Date Time Temp Pulse Resp B/P (MAP) Pulse Ox O2 Delivery O2 Flow Rate FiO2 08/01/25 18:45 91 11 109/64 (79) 89 08/01/25 18:19 Nasal Cannula* 2 28 08/01/25 16:02 98.7 98.7 Total Intake and Output 07/31/25 07/31/25 08/01/25 15:00 23:00 07:00 Intake Total 430.00 ml 150.00 ml 323.750 ml Output Total 150 ml 75 ml Balance 430.00 ml 0 ml 248.750 ml medications Current Medications Medications Dose Ordered Sig/Sravan Route Start Time Stop Time Status Last Admin Dose Admin Acetaminophen/ Hydrocodone Bitart 1 tab Q4HP PRN PO 07/24/25 23:30 08/01/25 11:05 1 TAB Ondansetron HCl 4 mg Q4HP PRN IV 07/24/25 23:30 07/28/25 19:24 4 MG Docusate Sodium 100 mg BIDPRN PRN PO 07/24/25 23:30 07/31/25 16:53 100 MG Acetaminophen 650 mg Q6HP PRN PO 07/24/25 23:30 Morphine Sulfate 2 mg Q4HPRN PRN IV 07/24/25 23:30 Nitroglycerin 0.4 mg Q5MINP PRN SL 07/24/25 23:30 Morphine Sulfate 2 mg Q30M PRN IV 07/24/25 23:30 Diagnostic Test (Pha) 1 strip Q6HR 07/25/25 12:00 08/01/25 18:00 1 STRIP Insulin Human Regular Q6HR SC 07/25/25 12:00 07/30/25 13:12 2 UNITS Dextrose 50 ml UD PRN IV 07/25/25 07:45 Albumin Human 200 ml @ 100 mls/hr Q8H IV 07/26/25 16:30 07/27/25 02:29 UNV Azithromycin 250 ml @ 125 mls/hr DAILY IV 07/27/25 10:00 08/01/25 11:00 125 MLS/HR Sodium Chloride 10 ml QSHIFT@ IV 07/27/25 22:00 08/01/25 11:00 10 ML Amiodarone HCl 200 mg Q12HR PO 07/27/25 22:00 08/01/25 11:00 200 MG Midodrine 10 mg TID@0600,1200,1800 PO 07/27/25 18:00 08/01/25 18:30 10 MG Apixaban 2.5 mg BID PO 07/27/25 22:00 08/01/25 11:00 2.5 MG Pantoprazole Sodium 40 mg DAILY IV 07/28/25 10:00 08/01/25 11:00 40 MG Hydroxychloroquine Sulfate 200 mg DAILY PO 07/28/25 10:00 08/01/25 18:31 200 MG Albuterol 2.5 mg Q4HPRN PRN NEB 07/27/25 17:00 08/01/25 13:57 2.5 MG Patient Own Medication 0.25 mg BID PO 07/27/25 22:00 08/01/25 11:00 0.25 MG Mupirocin 1 applic BID EACHNOSTRI 07/27/25 22:00 08/01/25 21:59 08/01/25 11:00 1 APPLIC Bumetanide 2 mg BIDD IV 07/30/25 18:00 08/01/25 18:32 2 MG Albumin Human 100 ml @ 100 mls/hr PRN PRN IV 07/31/25 08:00 07/31/25 14:05 100 MLS/HR Meropenem 50 ml @ 17 mls/hr DAILY@2200 IV 08/01/25 22:00 Allopurinol 100 mg MWF PO 08/03/25 10:00 Gabapentin 300 mg MWF PO 08/03/25 10:00 Levothyroxine Sodium 150 mcg QAM@0600 PO 08/01/25 15:45 08/01/25 18:30 150 MCG Fludrocortisone Acetate 0.1 mg DAILY PO 08/02/25 10:00 Norepinephrine Bitartrate 250 ml @ 0.938 mls/ hr Q24H IV 08/01/25 19:00 objective Gen.: Patient lying in bed in no apparent distress. On supplemental oxygen. Head: Normocephalic, atraumatic. Eyes: EOMI/PERRLA. Ears: Normal hearing. Normal anatomy. Neck/trachea: Trachea midline, supple. Nose: Normal external anatomy. Mouth: Moist mucous membranes. Chest: Decreased air entry bilaterally. No wheezing or rhonchi. Cardiovascular: Positive S1, positive S2. Regular rate and rhythm. Abdomen: Positive bowel sounds in all 4 quadrants. Soft, non-tender, non- distended. : Deferred. Rectal: Deferred. Skin: Warm, dry. Intact. Extremities: 2+ radial pulses bilaterally. Bilateral lower extremity 4+ pitting edema. Neuro: Awake, alert, oriented x3. No gross motor or sensory deficits. Cranial nerves II through XII intact. Gait not assessed. laboratory and microbiology Laboratory Tests 08/01/25 03:50 Test 08/01/25 03:50 Range/Units Serum Glucose 76 74-106 mg/dL Assessment/Plan Impression: Acute on chronic hypoxic respiratory failure Dependence on supplemental oxygen CHF exacerbation Septic shock Chronic obstructive pulmonary disease Acute kidney injury Morbid obesity, BMI 37.2 Events: Remains on supplemental oxygen Currently on 2 LPM NC Improving oxygen requirements Continue to taper as tolerated No acute overnight events Patient is AAOx 4, bedbound. Bilateral lower extremity 4+ pitting edema. Pressors for hemodynamic support On Levophed 3 mcg/min Titrate to keep MAP above 65 mmHg/SBP above 90 mmHg. Hemodialysis per Nephrology - s/p HD yesterday Follow up Nephrology recommendations Midodrine for BP support HOB elevation Aspiration precautions Continue bronchodilators Continue antibiotics Accu-Cheks. Monitor for hypoglycemia. Hemoglobin stable at 7.7 g/dL Hemodialysis per Nephrology Diurese with Bumex as tolerated Monitor renal function. Monitor electrolytes. Supplement as necessary Labs and imaging reviewed. Plan: Supplemental oxygen Titrate to keep O2 sats above 92% Pressors as necessary for hemodynamic support Titrate to keep MAP above 65 mmHg/SBP above 90 mmHg. Continue bronchodilators Continue antibiotics Cultures positive for ESBL in urine. MRSA positive, nares. ID recommendations appreciated Monitor WBC Follow up Cardiology recommendations On Amiodarone, Eliquis PO BID Hemodialysis per Nephrology Diurese to euvolemia Monitor renal function. Monitor electrolytes. Supplement as necessary. Monitor ins and outs. Follow up Nephrology recommendations Protonix for GI prophylaxis Monitor hemoglobin Transfuse if less than 7.0 g/dL. Pain control Avoid oversedation GI/DVT prophylaxis. Prognosis: Poor given patient's multiple co-morbidities. Condition: Critical Rest of plan per hospitalist and other consultants. A total of 35 minutes of critical care time was spent reviewing the patient record, examining the patient, making a diagnostic and therapeutic plan, discussing this plan with the medical personnel, following up on diagnostic studies and following the patient for clinical stability excluding any and all procedures. At least 50% of this time was spent in direct, [id number] contact. Thank you, Dr. Celis, for allowing me to participate in this patient's care. Further recommendations will depend on the patient's clinical course. Please do not hesitate to contact me if you have any questions or concerns. This medical document was created using an electronic medical record system with [employer] dictation system. Although these documentations are being carefully reviewed, there may still be some phonetic and typographical changes. The errors are purely typographical, due to imperfection on the software program, and do not reflect any compromise in the patient's medical care. Dietary Evaluation Review Comments: Nutrition Recommendation: 1) Nephro-kishore 1 tab daily 2) Consider CCHO 60gm + cardiac diet 3) Monitor PO intake, lab values, weight trend, and I/O Expected Outcomes/Goals: Lab values to improve Fu 3-5 days Plan discussed with: Patient, Other (BOSTON Levi) MAGDA VASQUEZ [facility] Aug 01, 2025 19:11
[2025-08-01] MEDS: NOREPINEPHRINE 8 MG/250ML KIT 250 ML IV SCH (19:34)
[2025-08-01] MEDS: MEROPENEM 500MG IVPB 50 ML IV SCH (21:57)
[2025-08-02] VITALS (98 sets, daily range): BP systolic 61–128; BP diastolic 31–86; PULSE 62–89; RESP 10–28; TEMP 97.8–98.2; O2SAT 83–100
[2025-08-02 03:43] LABS: Hematocrit 25.1 % (36.0-46.0); Hemoglobin 8.2 g/dL (12.2-16.2); Mean Corpuscular Hemoglobin 27.4 pg (28.0-32.0); Mean Corpuscular Volume 84.1 fL (80.0-100.0); Nucleated Red Blood Cells % 0.0 %
[2025-08-02 04:01] LABS: Anion Gap 8 (5-15); Carbon Dioxide 29 mmol/L (20-31); Potassium 5.1 mmol/L (3.5-5.1)
[2025-08-02 04:03] LABS: Calcium 9.2 mg/dL (8.7-10.4)
[2025-08-02 04:07] LABS: Glucose 84 mg/dL (74-106)
[2025-08-02 04:08] LABS: BUN/Creatinine Ratio 8.9 (10.0-20.0)
[2025-08-02 04:20] LABS: Blood Urea Nitrogen 27 mg/dL (9-23); Chloride 95 mmol/L (98-107); Sodium 132 mmol/L (136-145)
[2025-08-02] MEDS: SODIUM CHL 0.9% 1000 ML BAG XX ONE (10:15)
[2025-08-02] MEDS: FLUDROCORTISONE ACETATE 0.1 MG TAB PO SCH (11:42)
--- NOTE | 2025-08-02 18:10 | DVHPN2 ---
Progress Note - Dictate Date Seen: Aug 02, 2025 Medical Necessity Reason Pt with a Central, PICC or Fol: No Subjective Patient dialyzed today with ultrafiltration of 3 L. vital signs Vital Sign Date Time Temp Pulse Resp B/P (MAP) Pulse Ox O2 Delivery O2 Flow Rate FiO2 08/02/25 17:39 102/62 08/02/25 16:00 67 08/02/25 16:00 12 99 Nasal Cannula* 2 28 08/02/25 12:00 97.8 97.8 Total Intake and Output 08/01/25 08/01/25 08/02/25 15:00 23:00 07:00 Intake Total 283.750 ml 541.875 ml 589.063 ml Output Total 75 ml 200 ml Balance 283.750 ml 466.875 ml 389.063 ml medications Current Medications Medications Dose Ordered Sig/Sravan Route Start Time Stop Time Status Last Admin Dose Admin Acetaminophen/ Hydrocodone Bitart 1 tab Q4HP PRN PO 07/24/25 23:30 08/02/25 11:41 1 TAB Ondansetron HCl 4 mg Q4HP PRN IV 07/24/25 23:30 07/28/25 19:24 4 MG Docusate Sodium 100 mg BIDPRN PRN PO 07/24/25 23:30 08/01/25 19:58 100 MG Acetaminophen 650 mg Q6HP PRN PO 07/24/25 23:30 Morphine Sulfate 2 mg Q4HPRN PRN IV 07/24/25 23:30 Nitroglycerin 0.4 mg Q5MINP PRN SL 07/24/25 23:30 Morphine Sulfate 2 mg Q30M PRN IV 07/24/25 23:30 Diagnostic Test (Pha) 1 strip Q6HR 07/25/25 12:00 08/02/25 17:27 1 STRIP Insulin Human Regular Q6HR SC 07/25/25 12:00 07/30/25 13:12 2 UNITS Dextrose 50 ml UD PRN IV 07/25/25 07:45 Albumin Human 200 ml @ 100 mls/hr Q8H IV 07/26/25 16:30 07/27/25 02:29 UNV Azithromycin 250 ml @ 125 mls/hr DAILY IV 07/27/25 10:00 08/02/25 11:39 125 MLS/HR Sodium Chloride 10 ml QSHIFT@10,22 IV 07/27/25 22:00 08/02/25 11:39 10 ML Amiodarone HCl 200 mg Q12HR PO 07/27/25 22:00 08/02/25 11:40 200 MG Midodrine 10 mg TID@0600,1200,1800 PO 07/27/25 18:00 08/02/25 17:39 10 MG Apixaban 2.5 mg BID PO 07/27/25 22:00 08/02/25 11:42 2.5 MG Pantoprazole Sodium 40 mg DAILY IV 07/28/25 10:00 08/02/25 11:39 40 MG Hydroxychloroquine Sulfate 200 mg DAILY PO 07/28/25 10:00 08/02/25 11:41 200 MG Albuterol 2.5 mg Q4HPRN PRN NEB 07/27/25 17:00 08/02/25 06:57 2.5 MG Patient Own Medication 0.25 mg BID PO 07/27/25 22:00 08/02/25 11:40 0.25 MG Bumetanide 2 mg BIDD IV 07/30/25 18:00 08/02/25 17:39 2 MG Albumin Human 100 ml @ 100 mls/hr PRN PRN IV 07/31/25 08:00 08/02/25 09:25 100 MLS/HR Meropenem 50 ml @ 17 mls/hr DAILY@2200 IV 08/01/25 22:00 08/01/25 21:57 17 MLS/HR Allopurinol 100 mg MWF PO 08/03/25 10:00 Gabapentin 300 mg MWF PO 08/03/25 10:00 Levothyroxine Sodium 150 mcg QAM@0600 PO 08/01/25 15:45 08/02/25 05:44 150 MCG Fludrocortisone Acetate 0.1 mg DAILY PO 08/02/25 10:00 08/02/25 11:42 0.1 MG Norepinephrine Bitartrate 250 ml @ 0.938 mls/ hr Q24H IV 08/01/25 19:00 08/02/25 03:47 7.5 MLS/HR objective Awake and alert HEENT: Normocephalic Lungs : Bilateral good air entry CVS : S1,S2 RRR Abd : Soft , BS+ Ext : 3 + edema laboratory and microbiology Laboratory Tests 08/02/25 03:00 Test 08/02/25 03:00 Range/Units Serum Glucose 84 74-106 mg/dL Problem List ESKD on HD Acute respiratory failure Hypoxia Sepsis Suspected PNA Fluid overload Anemia of ckd Morbid obesity Assessment/Plan We will continue dialysis on TTS schedule Vasopressors for hemodynamic support. Keep MAP >65. Wean as tolerated. IV antibiotics. Urine cultures with E.Coli and ESBL. Dietary Evaluation Review Comments: Nutrition Recommendation: 1) Nephro-kishore 1 tab daily 2) Consider CCHO 60gm + cardiac diet 3) Monitor PO intake, lab values, weight trend, and I/O Expected Outcomes/Goals: Lab values to improve Fu 3-5 days Plan discussed with: Other VÍCTOR JUDGE MD Aug 02, 2025 18:10
[2025-08-02] MEDS: EPOETIN ALFA-EPBX 10,000 UNIT/1ML VIAL SC ONE (21:35)
--- NOTE | 2025-08-02 22:22 | DVHPN2 ---
Progress Note - Dictate Date Seen: Aug 02, 2025 Medical Necessity Reason Pt with a Central, PICC or Fol: Yes The following are medically ne: Tijerina Catheter Reason for tijerina catheter: Strict I&O Subjective [facility] Patient seen and examined at bedside Remains on supplemental oxygen Overnight events reviewed. vital signs Vital Sign Date Time Temp Pulse Resp B/P (MAP) Pulse Ox O2 Delivery O2 Flow Rate FiO2 08/02/25 20:15 75 14 103/54 (70) 100 08/02/25 20:00 Nasal Cannula* 2 28 08/02/25 20:00 98.2 98.2 Total Intake and Output 08/01/25 08/01/25 08/02/25 15:00 23:00 07:00 Intake Total 283.750 ml 541.875 ml 589.063 ml Output Total 75 ml 200 ml Balance 283.750 ml 466.875 ml 389.063 ml medications Current Medications Medications Dose Ordered Sig/Sravan Route Start Time Stop Time Status Last Admin Dose Admin Acetaminophen/ Hydrocodone Bitart 1 tab Q4HP PRN PO 07/24/25 23:30 08/02/25 21:37 1 TAB Ondansetron HCl 4 mg Q4HP PRN IV 07/24/25 23:30 08/02/25 20:42 4 MG Docusate Sodium 100 mg BIDPRN PRN PO 07/24/25 23:30 08/01/25 19:58 100 MG Acetaminophen 650 mg Q6HP PRN PO 07/24/25 23:30 Morphine Sulfate 2 mg Q4HPRN PRN IV 07/24/25 23:30 Nitroglycerin 0.4 mg Q5MINP PRN SL 07/24/25 23:30 Morphine Sulfate 2 mg Q30M PRN IV 07/24/25 23:30 Diagnostic Test (Pha) 1 strip Q6HR 07/25/25 12:00 08/02/25 17:27 1 STRIP Insulin Human Regular Q6HR SC 07/25/25 12:00 07/30/25 13:12 2 UNITS Dextrose 50 ml UD PRN IV 07/25/25 07:45 Albumin Human 200 ml @ 100 mls/hr Q8H IV 07/26/25 16:30 07/27/25 02:29 UNV Azithromycin 250 ml @ 125 mls/hr DAILY IV 07/27/25 10:00 11/6/25 11:39 125 MLS/HR Sodium Chloride 10 ml QSHIFT@10,22 IV 07/27/25 22:00 08/02/25 21:36 10 ML Amiodarone HCl 200 mg Q12HR PO 07/27/25 22:00 08/02/25 21:34 200 MG Midodrine 10 mg TID@0600,1200,1800 PO 07/27/25 18:00 08/02/25 17:39 10 MG Apixaban 2.5 mg BID PO 07/27/25 22:00 08/02/25 21:34 2.5 MG Pantoprazole Sodium 40 mg DAILY IV 07/28/25 10:00 08/02/25 11:39 40 MG Hydroxychloroquine Sulfate 200 mg DAILY PO 07/28/25 10:00 08/02/25 11:41 200 MG Albuterol 2.5 mg Q4HPRN PRN NEB 07/27/25 17:00 08/02/25 06:57 2.5 MG Patient Own Medication 0.25 mg BID PO 07/27/25 22:00 08/02/25 21:35 0.25 MG Bumetanide 2 mg BIDD IV 07/30/25 18:00 08/02/25 17:39 2 MG Albumin Human 100 ml @ 100 mls/hr PRN PRN IV 07/31/25 08:00 08/02/25 09:25 100 MLS/HR Meropenem 50 ml @ 17 mls/hr DAILY@2200 IV 08/01/25 22:00 08/02/25 21:35 17 MLS/HR Allopurinol 100 mg MWF PO 08/03/25 10:00 Gabapentin 300 mg MWF PO 08/03/25 10:00 Levothyroxine Sodium 150 mcg QAM@0600 PO 08/01/25 15:45 08/02/25 05:44 150 MCG Fludrocortisone Acetate 0.1 mg DAILY PO 08/02/25 10:00 08/02/25 11:42 0.1 MG Norepinephrine Bitartrate 250 ml @ 0.938 mls/ hr Q24H IV 08/01/25 19:00 08/02/25 03:47 7.5 MLS/HR objective Gen.: Patient lying in bed in no apparent distress. On supplemental oxygen. Head: Normocephalic, atraumatic. Eyes: EOMI/PERRLA. Ears: Normal hearing. Normal anatomy. Neck/trachea: Trachea midline, supple. Nose: Normal external anatomy. Mouth: Moist mucous membranes. Chest: Decreased air entry bilaterally. No wheezing or rhonchi. Cardiovascular: Positive S1, positive S2. Regular rate and rhythm. Abdomen: Positive bowel sounds in all 4 quadrants. Soft, non-tender, non- distended. : Deferred. Rectal: Deferred. Skin: Warm, dry. Intact. Extremities: 2+ radial pulses bilaterally. Bilateral lower extremity 4+ pitting edema. Neuro: Awake, alert, oriented x3. No gross motor or sensory deficits. Cranial nerves II through XII intact. Gait not assessed. laboratory and microbiology Laboratory Tests 08/02/25 03:00 Test 08/02/25 03:00 Range/Units Serum Glucose 84 74-106 mg/dL Assessment/Plan Impression: Acute on chronic hypoxic respiratory failure Dependence on supplemental oxygen CHF exacerbation Septic shock Chronic obstructive pulmonary disease Acute kidney injury Morbid obesity, BMI 37.2 Events: Remains on supplemental oxygen Currently on 2 LPM NC Continue to taper as tolerated No acute overnight events Patient is AAOx 4, bedbound. Bilateral lower extremity 4+ pitting edema. Pressors for hemodynamic support On Levophed 5 mcg/min Titrate to keep MAP above 65 mmHg/SBP above 90 mmHg. Interval increase in pressor requirements Hemodialysis per Nephrology Follow up Nephrology recommendations Midodrine for BP support HOB elevation Aspiration precautions Continue bronchodilators Continue antibiotics Accu-Cheks. Monitor for hypoglycemia. Hemoglobin trended up at 8.2 g/dL Hemodialysis per Nephrology Diurese with Bumex as tolerated Monitor renal function. Monitor electrolytes. Supplement as necessary Labs and imaging reviewed. Plan: Supplemental oxygen Titrate to keep O2 sats above 92% Pressors as necessary for hemodynamic support Titrate to keep MAP above 65 mmHg/SBP above 90 mmHg. Continue bronchodilators Continue antibiotics Cultures positive for ESBL in urine. MRSA positive, nares. ID recommendations appreciated Monitor WBC Follow up Cardiology recommendations On Amiodarone, Eliquis PO BID Hemodialysis per Nephrology Diurese to euvolemia Monitor renal function. Monitor electrolytes. Supplement as necessary. Monitor ins and outs. Follow up Nephrology recommendations Protonix for GI prophylaxis Monitor hemoglobin Transfuse if less than 7.0 g/dL. Pain control Avoid oversedation GI/DVT prophylaxis. Prognosis: Poor given patient's multiple co-morbidities. Condition: Critical Rest of plan per hospitalist and other consultants. A total of 35 minutes of critical care time was spent reviewing the patient record, examining the patient, making a diagnostic and therapeutic plan, discussing this plan with the medical personnel, following up on diagnostic studies and following the patient for clinical stability excluding any and all procedures. At least 50% of this time was spent in direct, [id number] contact. Thank you, Dr. Celis, for allowing me to participate in this patient's care. Further recommendations will depend on the patient's clinical course. Please do not hesitate to contact me if you have any questions or concerns. This medical document was created using an electronic medical record system with [employer] dictation system. Although these documentations are being carefully reviewed, there may still be some phonetic and typographical changes. The errors are purely typographical, due to imperfection on the software program, and do not reflect any compromise in the patient's medical care. Dietary Evaluation Review Comments: Nutrition Recommendation: 1) Nephro-kishore 1 tab daily 2) Consider CCHO 60gm + cardiac diet 3) Monitor PO intake, lab values, weight trend, and I/O Expected Outcomes/Goals: Lab values to improve Fu 3-5 days Plan discussed with: Patient, Other (BOSTON Cool) Critical Care Time(min): 35 [facility] Aug [facility], [facility] 22:22
[2025-08-03] VITALS (96 sets, daily range): BP systolic 69–127; BP diastolic 18–73; PULSE 59–98; RESP 9–23; TEMP 97.7–99.3; O2SAT 81–100
[2025-08-03 03:47] LABS: Hematocrit 24.4 % (36.0-46.0); Hemoglobin 7.8 g/dL (12.2-16.2); Mean Corpuscular Hemoglobin 27.3 pg (28.0-32.0); Mean Corpuscular Volume 85.4 fL (80.0-100.0); Nucleated Red Blood Cells % 0.0 %
[2025-08-03 04:00] LABS: Calcium 8.9 mg/dL (8.7-10.4); Chloride 99 mmol/L (98-107); Potassium 4.4 mmol/L (3.5-5.1)
[2025-08-03 04:01] LABS: Anion Gap 7 (5-15); Carbon Dioxide 30 mmol/L (20-31)
[2025-08-03 04:06] LABS: BUN/Creatinine Ratio 7.3 (10.0-20.0); Blood Urea Nitrogen 17 mg/dL (9-23); Glucose 86 mg/dL (74-106)
[2025-08-03 04:12] LABS: Sodium 136 mmol/L (136-145)
[2025-08-03] MEDS: ACETAMINOPHEN 325 MG TAB PO PRN (05:43)
--- NOTE | 2025-08-03 09:41 | DVHPN2 ---
Progress Note - Dictate Date Seen: Aug 03, 2025 Medical Necessity Reason Pt with a Central, PICC or Fol: Yes The following are medically ne: Tijerina Catheter Reason for tijerina catheter: Strict I&O Subjective Patient dialyzed yesterday with ultrafiltration of 3 L. vital signs Vital Sign Date Time Temp Pulse Resp B/P (MAP) Pulse Ox O2 Delivery O2 Flow Rate FiO2 08/03/25 08:00 82 08/03/25 08:00 18 99 Nasal Cannula* 2 28 08/03/25 06:45 97/41 (59) 08/03/25 06:43 98.1 Total Intake and Output 08/02/25 08/02/25 08/03/25 15:00 23:00 07:00 Intake Total 764.964 ml 823.432 ml 596.541 ml Output Total 3200 ml 100 ml Balance 764.964 ml -2376.568 ml 496.541 ml medications Current Medications Medications Dose Ordered Sig/Sravan Route Start Time Stop Time Status Last Admin Dose Admin Ondansetron HCl 4 mg Q4HP PRN IV 07/24/25 23:30 08/02/25 20:42 4 MG Docusate Sodium 100 mg BIDPRN PRN PO 07/24/25 23:30 08/01/25 19:58 100 MG Acetaminophen 650 mg Q6HP PRN PO 07/24/25 23:30 08/03/25 05:43 650 MG Nitroglycerin 0.4 mg Q5MINP PRN SL 07/24/25 23:30 Diagnostic Test (Pha) 1 strip Q6HR 07/25/25 12:00 08/03/25 05:50 1 STRIP Insulin Human Regular Q6HR SC 07/25/25 12:00 07/30/25 13:12 2 UNITS Dextrose 50 ml UD PRN IV 07/25/25 07:45 Albumin Human 200 ml @ 100 mls/hr Q8H IV 07/26/25 16:30 07/27/25 02:29 UNV Azithromycin 250 ml @ 125 mls/hr DAILY IV 07/27/25 10:00 08/02/25 11:39 125 MLS/HR Sodium Chloride 10 ml QSHIFT@, IV 07/27/25 22:00 08/02/25 21:36 10 ML Amiodarone HCl 200 mg Q12HR PO 07/27/25 22:00 08/02/25 21:34 200 MG Midodrine 10 mg TID@0600,1200,1800 PO 07/27/25 18:00 08/03/25 05:42 10 MG Apixaban 2.5 mg BID PO 07/27/25 22:00 08/02/25 21:34 2.5 MG Pantoprazole Sodium 40 mg DAILY IV 07/28/25 10:00 08/02/25 11:39 40 MG Hydroxychloroquine Sulfate 200 mg DAILY PO 07/28/25 10:00 08/02/25 11:41 200 MG Albuterol 2.5 mg Q4HPRN PRN NEB 07/27/25 17:00 08/02/25 06:57 2.5 MG Patient Own Medication 0.25 mg BID PO 07/27/25 22:00 08/02/25 21:35 0.25 MG Bumetanide 2 mg BIDD IV 07/30/25 18:00 08/03/25 05:46 2 MG Albumin Human 100 ml @ 100 mls/hr PRN PRN IV 07/31/25 08:00 08/02/25 09:25 100 MLS/HR Meropenem 50 ml @ 17 mls/hr DAILY@2200 IV 08/01/25 22:00 08/02/25 21:35 17 MLS/HR Allopurinol 100 mg MWF PO 08/03/25 10:00 Gabapentin 300 mg MWF PO 08/03/25 10:00 Levothyroxine Sodium 150 mcg QAM@0600 PO 08/01/25 15:45 08/03/25 05:43 150 MCG Fludrocortisone Acetate 0.1 mg DAILY PO 08/02/25 10:00 08/02/25 11:42 0.1 MG Norepinephrine Bitartrate 250 ml @ 0.938 mls/ hr Q24H IV 08/01/25 19:00 08/03/25 05:45 9.375 MLS/HR objective Awake and alert HEENT: Normocephalic Lungs : Bilateral good air entry CVS : S1,S2 RRR Abd : Soft , BS+ Ext : 3 + edema laboratory and microbiology Laboratory Tests 08/03/25 03:15 Test 08/03/25 03:15 Range/Units Serum Glucose 86 74-106 mg/dL Problem List ESKD on HD Acute respiratory failure Hypoxia Sepsis Suspected PNA Fluid overload Anemia of ckd Morbid obesity Assessment/Plan We will continue dialysis on TTS schedule Vasopressors for hemodynamic support. Keep MAP >65. Wean as tolerated. IV antibiotics. Urine cultures with E.Coli and ESBL. continue midodrine Dietary Evaluation Review Comments: Nutrition Recommendation: 1) Nephro-kishore 1 tab daily 2) Consider CCHO 60gm + cardiac diet 3) Monitor PO intake, lab values, weight trend, and I/O Expected Outcomes/Goals: Lab values to improve Fu 3-5 days Plan discussed with: Patient VÍCTOR JUDGE MD Aug 03, 2025 09:41
[2025-08-03] MEDS: ALLOPURINOL 100 MG TAB PO SCH (10:01)
[2025-08-03] MEDS: GABAPENTIN 300 MG CAP PO SCH (10:01)
--- NOTE | 2025-08-03 14:15 | DVH ---
Upper Extremity Venous Duplex Clinical History: PAIN WITH BRUISING Comparison: None Technique: Duplex doppler evaluation of the venous system of the RIGHT lower neck and upper extremity including color doppler and spectral/pulsed waveform analysis was performed. Findings: The internal jugular vein demonstrates appropriate compressibility and waveform variability. The subclavian vein is patent on color Doppler evaluation without intraluminal thrombus and demonstrates waveform variability. The axillary vein demonstrates appropriate compressibility and waveform variability. The brachial veins demonstrate appropriate compressibility and patency on Doppler evaluation. The basilic vein demonstrates appropriate compressibility and patency on Doppler evaluation. The cephalic vein demonstrates appropriate compressibility and patency on Doppler evaluation. Catheter noted within the right axillary and basilic veins. Impression: 1. No venous thrombus identified in the RIGHT upper extremity vessels evaluated above. 2. If clinical concern/symptoms persist or worsen, short-interval follow-up study is suggested.
--- NOTE | 2025-08-03 17:10 | DVHPN2 ---
Progress Note Date Seen: Aug 03, 2025 Medical Necessity Reason Pt with a Central, PICC or Fol: Yes The following are medically ne: Tijerina Catheter Reason for tijerina catheter: Strict I&O Objective vital signs Vital Sign Date Time Temp Pulse Resp B/P (MAP) Pulse Ox O2 Delivery O2 Flow Rate FiO2 08/03/25 16:31 80 16 110/44 (66) 100 08/03/25 16:00 Nasal Cannula* 2 28 08/03/25 12:00 97.7 97.7 Total Intake and Output 08/02/25 08/02/25 08/03/25 15:00 23:00 07:00 Intake Total 764.964 ml 823.432 ml 605.916 ml Output Total 3200 ml 100 ml Balance 764.964 ml -2376.568 ml 505.916 ml medications Current Medications Medications Dose Ordered Sig/Sravan Route Start Time Stop Time Status Last Admin Dose Admin Ondansetron HCl 4 mg Q4HP PRN IV 07/24/25 23:30 08/03/25 12:01 4 MG Docusate Sodium 100 mg BIDPRN PRN PO 07/24/25 23:30 08/01/25 19:58 100 MG Acetaminophen 650 mg Q6HP PRN PO 07/24/25 23:30 08/03/25 05:43 650 MG Nitroglycerin 0.4 mg Q5MINP PRN SL 07/24/25 23:30 Diagnostic Test (Pha) 1 strip Q6HR 07/25/25 12:00 08/03/25 12:23 1 STRIP Insulin Human Regular Q6HR SC 07/25/25 12:00 07/30/25 13:12 2 UNITS Dextrose 50 ml UD PRN IV 07/25/25 07:45 Albumin Human 200 ml @ 100 mls/hr Q8H IV 07/26/25 16:30 07/27/25 02:29 UNV Azithromycin 250 ml @ 125 mls/hr DAILY IV 07/27/25 10:00 08/03/25 10:00 125 MLS/HR Sodium Chloride 10 ml QSHIFT@10,22 IV 07/27/25 22:00 08/03/25 10:02 10 ML Amiodarone HCl 200 mg Q12HR PO 07/27/25 22:00 08/03/25 10:00 200 MG Midodrine 10 mg TID@0600,1200,1800 PO 07/27/25 18:00 08/03/25 12:23 10 MG Apixaban 2.5 mg BID PO 07/27/25 22:00 08/03/25 10:02 2.5 MG Pantoprazole Sodium 40 mg DAILY IV 07/28/25 10:00 08/03/25 10:00 40 MG Hydroxychloroquine Sulfate 200 mg DAILY PO 07/28/25 10:00 08/03/25 10:01 200 MG Albuterol 2.5 mg Q4HPRN PRN NEB 07/27/25 17:00 08/03/25 11:48 2.5 MG Patient Own Medication 0.25 mg BID PO 07/27/25 22:00 08/03/25 10:02 0.25 MG Bumetanide 2 mg BIDD IV 07/30/25 18:00 08/03/25 05:46 2 MG Albumin Human 100 ml @ 100 mls/hr PRN PRN IV 07/31/25 08:00 08/02/25 09:25 100 MLS/HR Meropenem 50 ml @ 17 mls/hr DAILY@2200 IV 08/01/25 22:00 08/02/25 21:35 17 MLS/HR Allopurinol 100 mg MWF PO 08/03/25 10:00 08/03/25 10:01 100 MG Gabapentin 300 mg MWF PO 08/03/25 10:00 08/03/25 10:01 300 MG Levothyroxine Sodium 150 mcg QAM@0600 PO 08/01/25 15:45 08/03/25 05:43 150 MCG Fludrocortisone Acetate 0.1 mg DAILY PO 08/02/25 10:00 08/03/25 10:01 0.1 MG Norepinephrine Bitartrate 250 ml @ 0.938 mls/ hr Q24H IV 08/01/25 19:00 08/03/25 05:45 9.375 MLS/HR Acetaminophen/ Hydrocodone Bitart 1 tab Q4HPRN PRN PO 08/03/25 13:15 Examination: GENERAL:Normal, HEENT:Normal, NECK:Normal, LUNGS:Normal, CVS:Normal, ABDOMEN:Normal, MSK:Normal laboratory and microbiology Laboratory Tests 08/03/25 03:15 Test 08/03/25 03:15 Range/Units Serum Glucose 86 74-106 mg/dL Microbiology Date/Time Source Procedure Growth Status 07/26/25 07:49 Nose MRSA Screen - Final Methicillin Resistant S.aureus Complete 07/25/25 14:42 Voided Urine Urine Culture - Final Proteus mirabilis Escherichia coli - ESBL Complete 07/24/25 19:05 Blood Blood Culture - Final NO GROWTH AFTER 5 DAYS OF INCUBATION. Complete Labs and/or images reviewed: Labs reviewed by me, Image(s) reviewed by me Problem List/Assessment/Plan Problem List/Assessment/Plan 74 year old female presents to the ED via EMS with SOB, LE edema, RLE thigh pain. She denies injury. She was found to be hypoxic on her normal supplemental O2. She has history of B/L pressure ulcers. hypoxia sepsis with PNA suspected PNA esrd on hd chronic anemia/anemia of ckd morbid obesity fluid overload 4+ pitting edema weakness acute hypoxic resp failure 08/01/2025 weaning down on Levophed as tolerated pt is on 2 of Levophed, plan to wean off today 08/02/2025: still in levophed, daily weaning 08/03/2025: weaning down on Levophed time: >45 minutes of critical care time Plan discussed with: Patient My Orders My Orders Orders - TORRIE BUTLER DO Procedure Category Date Status Time Dietary NOTICE 08/03/25 Transmitted Recommendations 06:16 Rt Upper Dvt US 08/03/25 Resulted 13:08 Hydrocodone-Acet PHA 08/03/25 In Process 5/325mg Tab ([place] 13:15 Fludrocortisone PHA 08/03/25 Transmitted Tablet ([place] 17:15 Dietary Evaluation Review Comments: Nutrition Recommendation: 1) Nephro-kishore 1 tab daily 2) Consider CCHO 60gm + cardiac diet 3) Monitor PO intake, lab values, weight trend, and I/O Expected Outcomes/Goals: Lab values to improve Fu 3-5 days TORRIE BUTLER DO Aug 03, 2025 17:10
[2025-08-03] MEDS: FLUDROCORTISONE ACETATE 0.1 MG TAB PO SCH (18:21)
--- NOTE | 2025-08-03 23:57 | DVHPN2 ---
Progress Note - Dictate Date Seen: Aug 03, 2025 Medical Necessity Reason Pt with a Central, PICC or Fol: Yes The following are medically ne: Tijerina Catheter Reason for tijerina catheter: Strict I&O Subjective [facility] Patient seen and examined at bedside Remains on supplemental oxygen Overnight events reviewed. vital signs Vital Sign Date Time Temp Pulse Resp B/P (MAP) Pulse Ox O2 Delivery O2 Flow Rate FiO2 08/03/25 22:00 16 100 Nasal Cannula* 3 32 08/03/25 20:00 79 08/03/25 19:00 110/70 (83) 08/03/25 12:00 97.7 97.7 Total Intake and Output 08/02/25 08/02/25 08/03/25 15:00 23:00 07:00 Intake Total 764.964 ml 823.432 ml 605.916 ml Output Total 3200 ml 100 ml Balance 764.964 ml -2376.568 ml 505.916 ml medications Current Medications Medications Dose Ordered Sig/Sravan Route Start Time Stop Time Status Last Admin Dose Admin Ondansetron HCl 4 mg Q4HP PRN IV 07/24/25 23:30 08/03/25 12:01 4 MG Docusate Sodium 100 mg BIDPRN PRN PO 07/24/25 23:30 08/01/25 19:58 100 MG Acetaminophen 650 mg Q6HP PRN PO 07/24/25 23:30 08/03/25 05:43 650 MG Nitroglycerin 0.4 mg Q5MINP PRN SL 07/24/25 23:30 Diagnostic Test (Pha) 1 strip Q6HR 07/25/25 12:00 08/03/25 18:13 1 STRIP Insulin Human Regular Q6HR SC 07/25/25 12:00 07/30/25 13:12 2 UNITS Dextrose 50 ml UD PRN IV 07/25/25 07:45 Albumin Human 200 ml @ 100 mls/hr Q8H IV 07/26/25 16:30 07/27/25 02:29 UNV Azithromycin 250 ml @ 125 mls/hr DAILY IV 07/27/25 10:00 08/03/25 10:00 125 MLS/HR Sodium Chloride 10 ml QSHIFT@ IV 07/27/25 22:00 08/03/25 21:45 10 ML Amiodarone HCl 200 mg Q12HR PO 07/27/25 22:00 08/03/25 21:45 200 MG Midodrine 10 mg TID@0600,1200,1800 PO 07/27/25 18:00 08/03/25 18:21 10 MG Apixaban 2.5 mg BID PO 07/27/25 22:00 08/03/25 21:45 2.5 MG Pantoprazole Sodium 40 mg DAILY IV 07/28/25 10:00 08/03/25 10:00 40 MG Hydroxychloroquine Sulfate 200 mg DAILY PO 07/28/25 10:00 08/03/25 10:01 200 MG Albuterol 2.5 mg Q4HPRN PRN NEB 07/27/25 17:00 08/03/25 11:48 2.5 MG Patient Own Medication 0.25 mg BID PO 07/27/25 22:00 08/03/25 21:46 0.25 MG Bumetanide 2 mg BIDD IV 07/30/25 18:00 08/03/25 18:21 2 MG Albumin Human 100 ml @ 100 mls/hr PRN PRN IV 07/31/25 08:00 08/02/25 09:25 100 MLS/HR Meropenem 50 ml @ 17 mls/hr DAILY@2200 IV 08/01/25 22:00 08/03/25 21:46 17 MLS/HR Allopurinol 100 mg MWF PO 08/03/25 10:00 08/03/25 10:01 100 MG Gabapentin 300 mg MWF PO 08/03/25 10:00 08/03/25 10:01 300 MG Levothyroxine Sodium 150 mcg QAM@0600 PO 08/01/25 15:45 08/03/25 05:43 150 MCG Norepinephrine Bitartrate 250 ml @ 0.938 mls/ hr Q24H IV 08/01/25 19:00 08/03/25 05:45 9.375 MLS/HR Acetaminophen/ Hydrocodone Bitart 1 tab Q4HPRN PRN PO 08/03/25 13:15 Fludrocortisone Acetate 0.1 mg BIDWM PO 08/03/25 18:00 08/03/25 18:21 0.1 MG objective Gen.: Patient lying in bed in no apparent distress. On supplemental oxygen. Head: Normocephalic, atraumatic. Eyes: EOMI/PERRLA. Ears: Normal hearing. Normal anatomy. Neck/trachea: Trachea midline, supple. Nose: Normal external anatomy. Mouth: Moist mucous membranes. Chest: Decreased air entry bilaterally. No wheezing or rhonchi. Cardiovascular: Positive S1, positive S2. Regular rate and rhythm. Abdomen: Positive bowel sounds in all 4 quadrants. Soft, non-tender, non- distended. : Deferred. Rectal: Deferred. Skin: Warm, dry. Intact. Extremities: 2+ radial pulses bilaterally. Bilateral lower extremity 4+ pitting edema. Neuro: Awake, alert, oriented x3. No gross motor or sensory deficits. Cranial nerves II through XII intact. Gait not assessed. laboratory and microbiology Laboratory Tests 08/03/25 03:15 Test 08/03/25 03:15 Range/Units Serum Glucose 86 74-106 mg/dL Assessment/Plan Impression: Acute on chronic hypoxic respiratory failure Dependence on supplemental oxygen CHF exacerbation Septic shock Chronic obstructive pulmonary disease Acute kidney injury Morbid obesity, BMI 37.2 Events: Remains on supplemental oxygen On 2 LPM NC Continue to taper as tolerated No acute overnight events Patient is AAOx 4, bedbound. Patient dialyzed yesterday with ultrafiltration of 3 L Hemodialysis per Nephrology Follow up Nephrology recommendations Midodrine for BP support - monitor blood pressure Pressors as necessary for hemodynamic support Titrate to keep MAP above 65 mmHg/SBP above 90 mmHg. HOB elevation Aspiration precautions Continue bronchodilators Continue antibiotics Incentive spirometry Accu-Cheks. Monitor for hypoglycemia. Hemoglobin trended down at 7.8 g/dL Hemodialysis per Nephrology Diurese with Bumex as tolerated Monitor renal function. Monitor electrolytes. Supplement as necessary Labs and imaging reviewed. Plan: Supplemental oxygen Titrate to keep O2 sats above 92% Pressors as necessary for hemodynamic support Titrate to keep MAP above 65 mmHg/SBP above 90 mmHg. Continue bronchodilators Continue antibiotics Cultures positive for ESBL in urine. MRSA positive, nares. ID recommendations appreciated Monitor WBC Follow up Cardiology recommendations On Amiodarone, Eliquis PO BID Hemodialysis per Nephrology Diurese to euvolemia Monitor renal function. Monitor electrolytes. Supplement as necessary. Monitor ins and outs. Follow up Nephrology recommendations Protonix for GI prophylaxis Monitor hemoglobin Transfuse if less than 7.0 g/dL. Pain control Avoid oversedation GI/DVT prophylaxis. Prognosis: Poor given patient's multiple co-morbidities. Condition: Critical Rest of plan per hospitalist and other consultants. A total of 35 minutes of critical care time was spent reviewing the patient record, examining the patient, making a diagnostic and therapeutic plan, discussing this plan with the medical personnel, following up on diagnostic studies and following the patient for clinical stability excluding any and all procedures. At least 50% of this time was spent in direct, [id number] contact. Thank you, Dr. Celis, for allowing me to participate in this patient's care. Further recommendations will depend on the patient's clinical course. Please do not hesitate to contact me if you have any questions or concerns. This medical document was created using an electronic medical record system with [email or web address] dictation system. Although these documentations are being carefully reviewed, there may still be some phonetic and typographical changes. The errors are purely typographical, due to imperfection on the software program, and do not reflect any compromise in the patient's medical care. Dietary Evaluation Review Comments: Nutrition Recommendation: 1) Nephro-kishore 1 tab daily 2) Consider CCHO 60gm + cardiac diet 3) Monitor PO intake, lab values, weight trend, and I/O Expected Outcomes/Goals: Lab values to improve Fu 3-5 days Plan discussed with: Patient, Other ([place]) Critical Care Time(min): 35 MAGDA VASQUEZ [facility] Aug 03, 2025 23:57
[2025-08-04] VITALS (108 sets, daily range): BP systolic 67–119; BP diastolic 29–88; PULSE 61–98; RESP 10–21; TEMP 97.4–98.1; O2SAT 78–100
[2025-08-04 04:25] LABS: Hematocrit 24.4 % (36.0-46.0); Hemoglobin 7.7 g/dL (12.2-16.2); Mean Corpuscular Hemoglobin 27.1 pg (28.0-32.0); Mean Corpuscular Volume 85.7 fL (80.0-100.0); Nucleated Red Blood Cells % 0.0 %
[2025-08-04 04:34] LABS: Anion Gap 7 (5-15); Carbon Dioxide 29 mmol/L (20-31); Potassium 4.4 mmol/L (3.5-5.1)
[2025-08-04 04:35] LABS: Calcium 8.9 mg/dL (8.7-10.4)
[2025-08-04 04:40] LABS: BUN/Creatinine Ratio 9.4 (10.0-20.0); Glucose 95 mg/dL (74-106)
[2025-08-04 04:59] LABS: Blood Urea Nitrogen 26 mg/dL (9-23); Chloride 97 mmol/L (98-107); Sodium 133 mmol/L (136-145)
[2025-08-04] MEDS: HYDROcodone-ACET 5/325MG TAB PO PRN (09:11)
--- NOTE | 2025-08-04 12:27 | DVHPN2 ---
Progress Note Date Seen: Aug 04, 2025 Medical Necessity Reason Pt with a Central, PICC or Fol: Yes The following are medically ne: Tijerina Catheter Reason for tijerina catheter: Strict I&O Objective vital signs Vital Sign Date Time Temp Pulse Resp B/P (MAP) Pulse Ox O2 Delivery O2 Flow Rate FiO2 08/04/25 11:59 83 16 100 08/04/25 11:53 Nasal Cannula* 2 28 08/04/25 09:33 98/49 (65) 08/04/25 09:15 98.1 98.1 Total Intake and Output 08/03/25 08/03/25 08/04/25 15:00 23:00 07:00 Intake Total 672.188 ml 975.000 ml 315.625 ml Output Total 125 ml 100 ml Balance 672.188 ml 850.000 ml 215.625 ml medications Current Medications Medications Dose Ordered Sig/Sravan Route Start Time Stop Time Status Last Admin Dose Admin Ondansetron HCl 4 mg Q4HP PRN IV 07/24/25 23:30 08/03/25 12:01 4 MG Docusate Sodium 100 mg BIDPRN PRN PO 07/24/25 23:30 08/01/25 19:58 100 MG Acetaminophen 650 mg Q6HP PRN PO 07/24/25 23:30 08/03/25 05:43 650 MG Nitroglycerin 0.4 mg Q5MINP PRN SL 07/24/25 23:30 Diagnostic Test (Pha) 1 strip Q6HR 07/25/25 12:00 08/04/25 11:21 1 STRIP Insulin Human Regular Q6HR SC 07/25/25 12:00 07/30/25 13:12 2 UNITS Dextrose 50 ml UD PRN IV 07/25/25 07:45 Albumin Human 200 ml @ 100 mls/hr Q8H IV 07/26/25 16:30 07/27/25 02:29 UNV Azithromycin 250 ml @ 125 mls/hr DAILY IV 07/27/25 10:00 08/04/25 09:12 125 MLS/HR Sodium Chloride 10 ml QSHIFT@10,22 IV 07/27/25 22:00 08/04/25 09:13 10 ML Amiodarone HCl 200 mg Q12HR PO 07/27/25 22:00 08/04/25 09:13 200 MG Midodrine 10 mg TID@0600,1200,1800 PO 07/27/25 18:00 08/04/25 05:56 10 MG Apixaban 2.5 mg BID PO 07/27/25 22:00 08/04/25 09:13 2.5 MG Pantoprazole Sodium 40 mg DAILY IV 07/28/25 10:00 08/04/25 09:12 40 MG Hydroxychloroquine Sulfate 200 mg DAILY PO 07/28/25 10:00 08/04/25 09:13 200 MG Albuterol 2.5 mg Q4HPRN PRN NEB 07/27/25 17:00 08/04/25 11:53 2.5 MG Patient Own Medication 0.25 mg BID PO 07/27/25 22:00 08/04/25 09:12 0.25 MG Bumetanide 2 mg BIDD IV 07/30/25 18:00 08/04/25 06:05 2 MG Albumin Human 100 ml @ 100 mls/hr PRN PRN IV 07/31/25 08:00 08/02/25 09:25 100 MLS/HR Meropenem 50 ml @ 17 mls/hr DAILY@2200 IV 08/01/25 22:00 08/03/25 21:46 17 MLS/HR Allopurinol 100 mg MWF PO 08/03/25 10:00 08/03/25 10:01 100 MG Gabapentin 300 mg MWF PO 08/03/25 10:00 08/03/25 10:01 300 MG Levothyroxine Sodium 150 mcg QAM@0600 PO 08/01/25 15:45 08/04/25 05:55 150 MCG Acetaminophen/ Hydrocodone Bitart 1 tab Q4HPRN PRN PO 08/03/25 13:15 08/04/25 09:11 1 TAB Fludrocortisone Acetate 0.1 mg BIDWM PO 08/03/25 18:00 08/04/25 07:33 0.1 MG Norepinephrine Bitartrate 250 ml @ 0.938 mls/ hr Q24H IV 08/04/25 12:30 UNV Examination: GENERAL:Normal, HEENT:Normal, NECK:Normal, LUNGS:Normal laboratory and microbiology Laboratory Tests 08/04/25 04:00 Test 08/04/25 04:00 Range/Units Serum Glucose 95 74-106 mg/dL Microbiology Date/Time Source Procedure Growth Status 07/26/25 07:49 Nose MRSA Screen - Final Methicillin Resistant S.aureus Complete 07/25/25 14:42 Voided Urine Urine Culture - Final Proteus mirabilis Escherichia coli - ESBL Complete 07/24/25 19:05 Blood Blood Culture - Final NO GROWTH AFTER 5 DAYS OF INCUBATION. Complete Labs and/or images reviewed: Labs reviewed by me, Image(s) reviewed by me Problem List/Assessment/Plan Problem List/Assessment/Plan 74 year old female presents to the ED via EMS with SOB, LE edema, RLE thigh pain. She denies injury. She was found to be hypoxic on her normal supplemental O2. She has history of B/L pressure ulcers. hypoxia sepsis with PNA suspected PNA esrd on hd chronic anemia/anemia of ckd morbid obesity fluid overload 4+ pitting edema weakness acute hypoxic resp failure 08/01/2025 weaning down on Levophed as tolerated pt is on 2 of Levophed, plan to wean off today 08/02/2025: still in levophed, daily weaning 08/03/2025: weaning down on Levophed 08/04/2025: weaning down on Leveophed. now at 4 time: >45 minutes of critical care time Plan discussed with: Patient My Orders My Orders Orders - TORRIE BUTLER DO Procedure Category Date Status Time Rt Upper Dvt US 08/03/25 Resulted 13:08 Hydrocodone-Acet PHA 08/03/25 In Process 5/325mg Tab ([place] 13:15 Fludrocortisone PHA 08/03/25 In Process Tablet ([place] 18:00 Norepinephrine 8 PHA 08/04/25 Logged Mg/250ml Kit 12:30 Dietary Evaluation Review Comments: Nutrition Recommendation: 1) Nephro-kishore 1 tab daily 2) Consider CCHO 60gm + cardiac diet 3) Monitor PO intake, lab values, weight trend, and I/O Expected Outcomes/Goals: Lab values to improve Fu 3-5 days TORRIE BUTLER DO Aug 04, 2025 12:27
[2025-08-04] MEDS: NOREPINEPHRINE 8 MG/250ML KIT 250 ML IV SCH (12:35)
[2025-08-04] MEDS: SODIUM CHL 0.9% 1000 ML BAG XX ONE (14:55)
[2025-08-04] MEDS: ALBUMIN 25% 100 ML IV SCH ×2 (15:48→21:28)
[2025-08-04] MEDS: EPOETIN ALFA-EPBX 10,000 UNIT/1ML VIAL SC ONE (21:28)
--- NOTE | 2025-08-04 23:23 | DVHPN2 ---
Progress Note - Dictate Date Seen: Aug 04, 2025 Medical Necessity Reason Pt with a Central, PICC or Fol: Yes The following are medically ne: Tijerina Catheter Reason for tijerina catheter: Strict I&O Subjective [facility] Patient seen and examined at bedside Remains on supplemental oxygen Overnight events reviewed. vital signs Vital Sign Date Time Temp Pulse Resp B/P (MAP) Pulse Ox O2 Delivery O2 Flow Rate FiO2 08/04/25 20:00 83 18 97 Nasal Cannula* 2 28 08/04/25 18:46 98/59 (72) 08/04/25 13:00 97.4 97.4 Total Intake and Output 08/03/25 08/03/25 08/04/25 15:00 23:00 07:00 Intake Total 672.188 ml 975.000 ml 325.000 ml Output Total 125 ml 100 ml Balance 672.188 ml 850.000 ml 225.000 ml medications Current Medications Medications Dose Ordered Sig/Sravan Route Start Time Stop Time Status Last Admin Dose Admin Ondansetron HCl 4 mg Q4HP PRN IV 07/24/25 23:30 08/03/25 12:01 4 MG Docusate Sodium 100 mg BIDPRN PRN PO 07/24/25 23:30 08/01/25 19:58 100 MG Acetaminophen 650 mg Q6HP PRN PO 07/24/25 23:30 08/04/25 21:28 650 MG Nitroglycerin 0.4 mg Q5MINP PRN SL 07/24/25 23:30 Diagnostic Test (Pha) 1 strip Q6HR 07/25/25 12:00 08/04/25 17:00 1 STRIP Insulin Human Regular Q6HR SC 07/25/25 12:00 07/30/25 13:12 2 UNITS Dextrose 50 ml UD PRN IV 07/25/25 07:45 Albumin Human 200 ml @ 100 mls/hr Q8H IV 07/26/25 16:30 07/27/25 02:29 UNV Azithromycin 250 ml @ 125 mls/hr DAILY IV 07/27/25 10:00 08/04/25 09:12 125 MLS/HR Sodium Chloride 10 ml QSHIFT@10,22 IV 07/27/25 22:00 08/04/25 21:31 10 ML Amiodarone HCl 200 mg Q12HR PO 07/27/25 22:00 08/04/25 21:29 200 MG Midodrine 10 mg TID@0600,1200,1800 PO 07/27/25 18:00 08/04/25 18:16 10 MG Apixaban 2.5 mg BID PO 07/27/25 22:00 08/04/25 21:29 2.5 MG Pantoprazole Sodium 40 mg DAILY IV 07/28/25 10:00 08/04/25 09:12 40 MG Hydroxychloroquine Sulfate 200 mg DAILY PO 07/28/25 10:00 08/04/25 09:13 200 MG Albuterol 2.5 mg Q4HPRN PRN NEB 07/27/25 17:00 08/04/25 19:37 2.5 MG Patient Own Medication 0.25 mg BID PO 07/27/25 22:00 08/04/25 21:31 0.25 MG Bumetanide 2 mg BIDD IV 07/30/25 18:00 08/04/25 18:16 2 MG Albumin Human 100 ml @ 100 mls/hr PRN PRN IV 07/31/25 08:00 08/02/25 09:25 100 MLS/HR Meropenem 50 ml @ 17 mls/hr DAILY@2200 IV 08/01/25 22:00 08/04/25 21:30 17 MLS/HR Allopurinol 100 mg MWF PO 08/03/25 10:00 08/03/25 10:01 100 MG Gabapentin 300 mg MWF PO 08/03/25 10:00 08/03/25 10:01 300 MG Levothyroxine Sodium 150 mcg QAM@0600 PO 08/01/25 15:45 08/04/25 05:55 150 MCG Acetaminophen/ Hydrocodone Bitart 1 tab Q4HPRN PRN PO 08/03/25 13:15 08/04/25 18:47 1 TAB Fludrocortisone Acetate 0.1 mg BIDWM PO 08/03/25 18:00 08/04/25 18:16 0.1 MG Norepinephrine Bitartrate 250 ml @ 0.938 mls/ hr Q24H IV 08/04/25 12:30 08/04/25 12:35 7.5 MLS/HR objective Gen.: Patient lying in bed in no apparent distress. On supplemental oxygen. Head: Normocephalic, atraumatic. Eyes: EOMI/PERRLA. Ears: Normal hearing. Normal anatomy. Neck/trachea: Trachea midline, supple. Nose: Normal external anatomy. Mouth: Moist mucous membranes. Chest: Decreased air entry bilaterally. No wheezing or rhonchi. Cardiovascular: Positive S1, positive S2. Regular rate and rhythm. Abdomen: Positive bowel sounds in all 4 quadrants. Soft, non-tender, non- distended. : Deferred. Rectal: Deferred. Skin: Warm, dry. Intact. Extremities: 2+ radial pulses bilaterally. Bilateral lower extremity 4+ pitting edema. Neuro: Awake, alert, oriented x3. No gross motor or sensory deficits. Cranial nerves II through XII intact. Gait not assessed. laboratory and microbiology Laboratory Tests 08/04/25 04:00 Test 08/04/25 04:00 Range/Units Serum Glucose 95 74-106 mg/dL Assessment/Plan Impression: Acute on chronic hypoxic respiratory failure Dependence on supplemental oxygen CHF exacerbation Septic shock Chronic obstructive pulmonary disease Acute kidney injury Morbid obesity, BMI 37.2 Events: Remains on supplemental oxygen On 2 LPM NC Continue to taper as tolerated Patient is AAOx 4, bedbound. No acute overnight events Hemodialysis per Nephrology Follow up Nephrology recommendations Midodrine for BP support - monitor blood pressure Pressors for hemodynamic support On Levophed 5 mcg/min Titrate to keep MAP above 65 mmHg/SBP above 90 mmHg. HOB elevation Aspiration precautions Continue bronchodilators Continue antibiotics Incentive spirometry Accu-Cheks. Monitor for hypoglycemia. Hemoglobin stable at 7.7 g/dL Hemodialysis per Nephrology Diurese with Bumex as tolerated Monitor renal function. Monitor electrolytes. Supplement as necessary Wound care. Labs and imaging reviewed. Plan: Supplemental oxygen Titrate to keep O2 sats above 92% Pressors as necessary for hemodynamic support Titrate to keep MAP above 65 mmHg/SBP above 90 mmHg. Continue bronchodilators Continue antibiotics Cultures positive for ESBL in urine. MRSA positive, nares. ID recommendations appreciated Monitor WBC Follow up Cardiology recommendations On Amiodarone, Eliquis PO BID Hemodialysis per Nephrology Diurese to euvolemia Monitor renal function. Monitor electrolytes. Supplement as necessary. Monitor ins and outs. Follow up Nephrology recommendations Protonix for GI prophylaxis Monitor hemoglobin Transfuse if less than 7.0 g/dL. Pain control Avoid oversedation GI/DVT prophylaxis. Prognosis: Poor given patient's multiple co-morbidities. Condition: Critical Rest of plan per hospitalist and other consultants. A total of 35 minutes of critical care time was spent reviewing the patient record, examining the patient, making a diagnostic and therapeutic plan, discussing this plan with the medical personnel, following up on diagnostic studies and following the patient for clinical stability excluding any and all procedures. At least 50% of this time was spent in direct, [id number] contact. Thank you, Dr. Celis, for allowing me to participate in this patient's care. Further recommendations will depend on the patient's clinical course. Please do not hesitate to contact me if you have any questions or concerns. This medical document was created using an electronic medical record system with [employer] dictation system. Although these documentations are being carefully reviewed, there may still be some phonetic and typographical changes. The errors are purely typographical, due to imperfection on the software program, and do not reflect any compromise in the patient's medical care. Dietary Evaluation Review Comments: Nutrition Recommendation: 1) Nephro-kishore 1 tab daily 2) Consider CCHO 60gm + cardiac diet 3) Monitor PO intake, lab values, weight trend, and I/O Expected Outcomes/Goals: Lab values to improve Fu 3-5 days Plan discussed with: Patient, Other ([place] Santiago) Critical Care Time(min): 35 MAGDA VASQUEZ Aug 04, 2025 23:23
[2025-08-05] VITALS (99 sets, daily range): BP systolic 69–132; BP diastolic 33–72; PULSE 58–90; RESP 10–25; TEMP 97.8–98.1; O2SAT 90–100
[2025-08-05 04:00] LABS: Mean Corpuscular Hemoglobin 28.1 pg (28.0-32.0)
[2025-08-05 04:03] LABS: Hematocrit 21.7 % (36.0-46.0); Hemoglobin 7.2 g/dL (12.2-16.2); Mean Corpuscular Volume 84.9 fL (80.0-100.0); Nucleated Red Blood Cells % 0.2 %
[2025-08-05 04:18] LABS: Anion Gap 10 (5-15); Calcium 9.2 mg/dL (8.7-10.4); Carbon Dioxide 29 mmol/L (20-31); Chloride 98 mmol/L (98-107); Potassium 4.1 mmol/L (3.5-5.1); Sodium 137 mmol/L (136-145)
[2025-08-05 04:21] LABS: Glucose 89 mg/dL (74-106)
[2025-08-05 04:24] LABS: BUN/Creatinine Ratio 7.3 (10.0-20.0); Blood Urea Nitrogen 15 mg/dL (9-23)
--- NOTE | 2025-08-05 10:50 | MEDREC ---
[facility] Intervention Section I [facility] Intervention: Review courses of therapy (PLEASE CONSIDER D/C AZITHROMYCIN COURSE OF THERAPY COMPLETE (10 DAYS)) RADHA GOODMAN PHARMACIST Aug 05, 2025 10:50
--- NOTE | 2025-08-05 16:30 | DVHPN2 ---
Progress Note - Dictate Date Seen: Aug 05, 2025 Medical Necessity Reason Pt with a Central, PICC or Fol: Yes The following are medically ne: Tijerina Catheter Reason for tijerina catheter: Strict I&O Subjective Patient dialyzed yesterday vital signs Vital Sign Date Time Temp Pulse Resp B/P (MAP) Pulse Ox O2 Delivery O2 Flow Rate FiO2 08/05/25 14:30 62 13 81/42 (55) 100 08/05/25 14:00 Nasal Cannula* 2 28 08/05/25 12:00 98.1 98.1 Total Intake and Output 08/04/25 08/04/25 08/05/25 15:00 23:00 07:00 Intake Total 300.6253 ml 390.625 ml 287.500 ml Output Total 75 ml 75 ml Balance 300.6253 ml 315.625 ml 212.500 ml medications Current Medications Medications Dose Ordered Sig/Sravan Route Start Time Stop Time Status Last Admin Dose Admin Ondansetron HCl 4 mg Q4HP PRN IV 07/24/25 23:30 08/03/25 12:01 4 MG Docusate Sodium 100 mg BIDPRN PRN PO 07/24/25 23:30 08/01/25 19:58 100 MG Acetaminophen 650 mg Q6HP PRN PO 07/24/25 23:30 08/04/25 21:28 650 MG Nitroglycerin 0.4 mg Q5MINP PRN SL 07/24/25 23:30 Diagnostic Test (Pha) 1 strip Q6HR 07/25/25 12:00 08/05/25 12:16 1 STRIP Insulin Human Regular Q6HR SC 07/25/25 12:00 07/30/25 13:12 2 UNITS Dextrose 50 ml UD PRN IV 07/25/25 07:45 Albumin Human 200 ml @ 100 mls/hr Q8H IV 07/26/25 16:30 07/27/25 02:29 UNV Azithromycin 250 ml @ 125 mls/hr DAILY IV 07/27/25 10:00 08/05/25 09:54 125 MLS/HR Sodium Chloride 10 ml QSHIFT@10,22 IV 07/27/25 22:00 08/05/25 09:53 10 ML Amiodarone HCl 200 mg Q12HR PO 07/27/25 22:00 08/05/25 09:54 200 MG Midodrine 10 mg TID@0600,1200,1800 PO 07/27/25 18:00 08/05/25 12:16 10 MG Apixaban 2.5 mg BID PO 07/27/25 22:00 08/05/25 09:55 2.5 MG Pantoprazole Sodium 40 mg DAILY IV 07/28/25 10:00 08/05/25 09:53 40 MG Hydroxychloroquine Sulfate 200 mg DAILY PO 07/28/25 10:00 08/05/25 09:55 200 MG Albuterol 2.5 mg Q4HPRN PRN NEB 07/27/25 17:00 08/05/25 06:37 2.5 MG Patient Own Medication 0.25 mg BID PO 07/27/25 22:00 08/05/25 09:54 0.25 MG Bumetanide 2 mg BIDD IV 07/30/25 18:00 08/05/25 05:34 2 MG Albumin Human 100 ml @ 100 mls/hr PRN PRN IV 07/31/25 08:00 08/02/25 09:25 100 MLS/HR Meropenem 50 ml @ 17 mls/hr DAILY@2200 IV 08/01/25 22:00 08/04/25 21:30 17 MLS/HR Allopurinol 100 mg MWF PO 08/03/25 10:00 08/03/25 10:01 100 MG Gabapentin 300 mg MWF PO 08/03/25 10:00 08/03/25 10:01 300 MG Levothyroxine Sodium 150 mcg QAM@0600 PO 08/01/25 15:45 08/05/25 05:35 150 MCG Acetaminophen/ Hydrocodone Bitart 1 tab Q4HPRN PRN PO 08/03/25 13:15 08/05/25 10:02 1 TAB Fludrocortisone Acetate 0.1 mg BIDWM PO 08/03/25 18:00 08/05/25 08:26 0.1 MG Norepinephrine Bitartrate 250 ml @ 0.938 mls/ hr Q24H IV 08/04/25 12:30 08/04/25 12:35 7.5 MLS/HR objective No acute distress HEENT: Normocephalic Lungs : Bilateral good air entry CVS : S1,S2 RRR Abd : Soft , BS+ Ext : 2 + edema laboratory and microbiology Laboratory Tests 08/05/25 03:30 Test 08/05/25 03:30 Range/Units Serum Glucose 89 74-106 mg/dL Problem List ESKD on HD Acute respiratory failure Hypoxia Sepsis Suspected PNA Fluid overload Anemia of ckd Morbid obesity Assessment/Plan We will continue dialysis on TTS schedule Vasopressors for hemodynamic support. Keep MAP >65. Wean as tolerated. IV antibiotics. Urine cultures with E.Coli and ESBL. continue midodrine Transfusion p.r.n. Dietary Evaluation Review Comments: Nutrition Recommendation: 1) Nephro-kishore 1 tab daily 2) Consider CCHO 60gm + cardiac diet 3) Monitor PO intake, lab values, weight trend, and I/O Expected Outcomes/Goals: Lab values to improve Fu 3-5 days Plan discussed with: Other VÍCTOR JUDGE MD Aug 05, 2025 16:30
--- NOTE | 2025-08-05 23:25 | DVHPN2 ---
Progress Note - Dictate Date Seen: Aug 05, 2025 Medical Necessity Reason Pt with a Central, PICC or Fol: Yes The following are medically ne: Tijerina Catheter Reason for tijerina catheter: Strict I&O Subjective [facility] Patient seen and examined at bedside Remains on supplemental oxygen Overnight events reviewed. vital signs Vital Sign Date Time Temp Pulse Resp B/P (MAP) Pulse Ox O2 Delivery O2 Flow Rate FiO2 08/05/25 21:15 74 10 100/48 (65) 96 08/05/25 20:00 98.1 98.1 08/05/25 20:00 Nasal Cannula* 2 28 Total Intake and Output 08/04/25 08/04/25 08/05/25 15:00 23:00 07:00 Intake Total 300.6253 ml 390.625 ml 287.500 ml Output Total 75 ml 75 ml Balance 300.6253 ml 315.625 ml 212.500 ml medications Current Medications Medications Dose Ordered Sig/Sravan Route Start Time Stop Time Status Last Admin Dose Admin Ondansetron HCl 4 mg Q4HP PRN IV 07/24/25 23:30 08/03/25 12:01 4 MG Docusate Sodium 100 mg BIDPRN PRN PO 07/24/25 23:30 08/01/25 19:58 100 MG Acetaminophen 650 mg Q6HP PRN PO 07/24/25 23:30 08/04/25 21:28 650 MG Nitroglycerin 0.4 mg Q5MINP PRN SL 07/24/25 23:30 Diagnostic Test (Pha) 1 strip Q6HR 07/25/25 12:00 08/05/25 17:34 1 STRIP Insulin Human Regular Q6HR SC 07/25/25 12:00 07/30/25 13:12 2 UNITS Dextrose 50 ml UD PRN IV 07/25/25 07:45 Albumin Human 200 ml @ 100 mls/hr Q8H IV 07/26/25 16:30 07/27/25 02:29 UNV Azithromycin 250 ml @ 125 mls/hr DAILY IV 07/27/25 10:00 08/05/25 09:54 125 MLS/HR Sodium Chloride 10 ml QSHIFT@10,22 IV 07/27/25 22:00 08/05/25 21:51 10 ML Amiodarone HCl 200 mg Q12HR PO 07/27/25 22:00 08/05/25 21:51 200 MG Midodrine 10 mg TID@0600,1200,1800 PO 07/27/25 18:00 08/05/25 17:34 10 MG Apixaban 2.5 mg BID PO 07/27/25 22:00 08/05/25 21:51 2.5 MG Pantoprazole Sodium 40 mg DAILY IV 07/28/25 10:00 08/05/25 09:53 40 MG Hydroxychloroquine Sulfate 200 mg DAILY PO 07/28/25 10:00 08/05/25 09:55 200 MG Albuterol 2.5 mg Q4HPRN PRN NEB 07/27/25 17:00 08/05/25 19:01 2.5 MG Patient Own Medication 0.25 mg BID PO 07/27/25 22:00 08/05/25 21:51 0.25 MG Bumetanide 2 mg BIDD IV 07/30/25 18:00 08/05/25 17:36 2 MG Albumin Human 100 ml @ 100 mls/hr PRN PRN IV 07/31/25 08:00 08/02/25 09:25 100 MLS/HR Meropenem 50 ml @ 17 mls/hr DAILY@2200 IV 08/01/25 22:00 08/05/25 21:51 17 MLS/HR Allopurinol 100 mg MWF PO 08/03/25 10:00 08/03/25 10:01 100 MG Gabapentin 300 mg MWF PO 08/03/25 10:00 08/03/25 10:01 300 MG Levothyroxine Sodium 150 mcg QAM@0600 PO 08/01/25 15:45 08/05/25 05:35 150 MCG Acetaminophen/ Hydrocodone Bitart 1 tab Q4HPRN PRN PO 08/03/25 13:15 08/05/25 10:02 1 TAB Fludrocortisone Acetate 0.1 mg BIDWM PO 08/03/25 18:00 08/05/25 17:34 0.1 MG Norepinephrine Bitartrate 250 ml @ 0.938 mls/ hr Q24H IV 08/04/25 12:30 08/04/25 12:35 7.5 MLS/HR objective Gen.: Patient lying in bed in no apparent distress. On supplemental oxygen. Head: Normocephalic, atraumatic. Eyes: EOMI/PERRLA. Ears: Normal hearing. Normal anatomy. Neck/trachea: Trachea midline, supple. Nose: Normal external anatomy. Mouth: Moist mucous membranes. Chest: Decreased air entry bilaterally. No wheezing or rhonchi. Cardiovascular: Positive S1, positive S2. Regular rate and rhythm. Abdomen: Positive bowel sounds in all 4 quadrants. Soft, non-tender, non- distended. : Deferred. Rectal: Deferred. Skin: Warm, dry. Intact. Extremities: 2+ radial pulses bilaterally. Bilateral lower extremity 2+ pitting edema. Neuro: Awake, alert, oriented x3. No gross motor or sensory deficits. Cranial nerves II through XII intact. Gait not assessed. laboratory and microbiology Laboratory Tests 08/05/25 03:30 Test 08/05/25 03:30 Range/Units Serum Glucose 89 74-106 mg/dL Assessment/Plan Impression: Acute on chronic hypoxic respiratory failure Dependence on supplemental oxygen CHF exacerbation Septic shock Chronic obstructive pulmonary disease Acute kidney injury Morbid obesity, BMI 37.2 Events: Remains on supplemental oxygen On 2 LPM NC Continue to taper as tolerated MAP goal of 50 mmmHg Off Levophed, hemodynamically stable. Patient is AAOx 4, bedbound. No acute overnight events Hemodialysis per Nephrology Follow up Nephrology recommendations Midodrine for BP support - monitor blood pressure HOB elevation Aspiration precautions Continue bronchodilators Continue antibiotics Incentive spirometry Accu-Cheks. Monitor for hypoglycemia. Hemoglobin stable at 7.2 g/dL Protonix for GI ppx Hemodialysis per Nephrology Diurese with Bumex as tolerated Monitor renal function. Monitor electrolytes. Supplement as necessary Pain control Avoid oversedation Wound care. Labs and imaging reviewed. Plan: Supplemental oxygen Titrate to keep O2 sats above 92% Pressors as necessary for hemodynamic support Titrate to keep MAP above 65 mmHg/SBP above 90 mmHg. Continue bronchodilators Continue antibiotics Cultures positive for ESBL in urine. MRSA positive, nares. ID recommendations appreciated Monitor WBC Follow up Cardiology recommendations On Amiodarone, Eliquis PO BID Hemodialysis per Nephrology Diurese to euvolemia Monitor renal function. Monitor electrolytes. Supplement as necessary. Monitor ins and outs. Follow up Nephrology recommendations Protonix for GI prophylaxis Monitor hemoglobin Transfuse if less than 7.0 g/dL. Pain control Avoid oversedation GI/DVT prophylaxis. Prognosis: Poor given patient's multiple co-morbidities. Condition: Critical Rest of plan per hospitalist and other consultants. A total of 35 minutes of critical care time was spent reviewing the patient record, examining the patient, making a diagnostic and therapeutic plan, discussing this plan with the medical personnel, following up on diagnostic studies and following the patient for clinical stability excluding any and all procedures. At least 50% of this time was spent in direct, [id number] contact. Thank you, Dr. Celis, for allowing me to participate in this patient's care. Further recommendations will depend on the patient's clinical course. Please do not hesitate to contact me if you have any questions or concerns. This medical document was created using an electronic medical record system with [employer] dictation system. Although these documentations are being carefully reviewed, there may still be some phonetic and typographical changes. The errors are purely typographical, due to imperfection on the software program, and do not reflect any compromise in the patient's medical care. Dietary Evaluation Review Comments: Nutrition Recommendation: 1) Nephro-kishore 1 tab daily 2) Consider CCHO 60gm + cardiac diet 3) Monitor PO intake, lab values, weight trend, and I/O Expected Outcomes/Goals: Lab values to improve Fu 3-5 days Plan discussed with: Other (BOSTON Wei) Critical Care Time(min): 35 MAGDA VASQUEZ Aug 05, 2025 23:25
[2025-08-06] VITALS (70 sets, daily range): BP systolic 80–111; BP diastolic 38–62; PULSE 66–93; RESP 11–24; TEMP 97.9–98.5; O2SAT 92–100
[2025-08-06 03:31] LABS: Mean Corpuscular Volume 86.4 fL (80.0-100.0)
[2025-08-06 03:35] LABS: Hematocrit 22.3 % (36.0-46.0); Hemoglobin 7.2 g/dL (12.2-16.2); Mean Corpuscular Hemoglobin 28.0 pg (28.0-32.0); Nucleated Red Blood Cells % 0.1 %
[2025-08-06 03:36] LABS: Anion Gap 7 (5-15); Carbon Dioxide 30 mmol/L (20-31); Chloride 99 mmol/L (98-107); Potassium 4.5 mmol/L (3.5-5.1); Sodium 136 mmol/L (136-145)
[2025-08-06 03:37] LABS: Calcium 9.1 mg/dL (8.7-10.4)
[2025-08-06 03:42] LABS: BUN/Creatinine Ratio 7.5 (10.0-20.0); Blood Urea Nitrogen 20 mg/dL (9-23); Glucose 75 mg/dL (74-106)
--- NOTE | 2025-08-06 14:22 | DVHPN2 ---
Progress Note - Dictate Date Seen: Aug 06, 2025 Medical Necessity Reason Pt with a Central, PICC or Fol: Yes The following are medically ne: Tijerina Catheter Reason for tijerina catheter: Strict I&O Subjective Patient has no complaints at this time vital signs Vital Sign Date Time Temp Pulse Resp B/P (MAP) Pulse Ox O2 Delivery O2 Flow Rate FiO2 08/06/25 12:37 75 16 100 08/06/25 12:31 Nasal Cannula* 2 28 08/06/25 11:30 104/50 (68) 08/06/25 08:00 98.0 98.0 Total Intake and Output 08/05/25 08/05/25 08/06/25 15:00 23:00 07:00 Intake Total 615.625 ml 650 ml 290 ml Output Total 25 ml 50 ml Balance 615.625 ml 625 ml 240 ml medications Current Medications Medications Dose Ordered Sig/Sravan Route Start Time Stop Time Status Last Admin Dose Admin Ondansetron HCl 4 mg Q4HP PRN IV 07/24/25 23:30 08/03/25 12:01 4 MG Docusate Sodium 100 mg BIDPRN PRN PO 07/24/25 23:30 08/06/25 06:49 100 MG Acetaminophen 650 mg Q6HP PRN PO 07/24/25 23:30 08/04/25 21:28 650 MG Nitroglycerin 0.4 mg Q5MINP PRN SL 07/24/25 23:30 Diagnostic Test (Pha) 1 strip Q6HR 07/25/25 12:00 08/06/25 12:03 1 STRIP Insulin Human Regular Q6HR SC 07/25/25 12:00 07/30/25 13:12 2 UNITS Dextrose 50 ml UD PRN IV 07/25/25 07:45 Albumin Human 200 ml @ 100 mls/hr Q8H IV 07/26/25 16:30 07/27/25 02:29 UNV Azithromycin 250 ml @ 125 mls/hr DAILY IV 07/27/25 10:00 08/06/25 10:09 125 MLS/HR Sodium Chloride 10 ml QSHIFT@10,22 IV 07/27/25 22:00 08/06/25 10:08 10 ML Amiodarone HCl 200 mg Q12HR PO 07/27/25 22:00 08/06/25 10:09 200 MG Midodrine 10 mg TID@0600,1200,1800 PO 07/27/25 18:00 08/06/25 12:03 10 MG Apixaban 2.5 mg BID PO 07/27/25 22:00 08/06/25 10:09 2.5 MG Pantoprazole Sodium 40 mg DAILY IV 07/28/25 10:00 08/06/25 10:08 40 MG Hydroxychloroquine Sulfate 200 mg DAILY PO 07/28/25 10:00 08/06/25 10:10 200 MG Albuterol 2.5 mg Q4HPRN PRN NEB 07/27/25 17:00 08/06/25 12:31 2.5 MG Patient Own Medication 0.25 mg BID PO 07/27/25 22:00 08/06/25 10:09 0.25 MG Bumetanide 2 mg BIDD IV 07/30/25 18:00 08/06/25 06:15 2 MG Albumin Human 100 ml @ 100 mls/hr PRN PRN IV 07/31/25 08:00 08/02/25 09:25 100 MLS/HR Meropenem 50 ml @ 17 mls/hr DAILY@2200 IV 08/01/25 22:00 08/05/25 21:51 17 MLS/HR Allopurinol 100 mg MWF PO 08/03/25 10:00 08/06/25 10:10 100 MG Gabapentin 300 mg MWF PO 08/03/25 10:00 08/06/25 10:10 300 MG Levothyroxine Sodium 150 mcg QAM@0600 PO 08/01/25 15:45 08/06/25 06:15 150 MCG Acetaminophen/ Hydrocodone Bitart 1 tab Q4HPRN PRN PO 08/03/25 13:15 08/06/25 12:02 1 TAB Fludrocortisone Acetate 0.1 mg BIDWM PO 08/03/25 18:00 08/06/25 07:54 0.1 MG Norepinephrine Bitartrate 250 ml @ 0.938 mls/ hr Q24H IV 08/04/25 12:30 08/04/25 12:35 7.5 MLS/HR objective HEENT: No evidence of JVD, no oral ulcers. Pulmonary: Lungs are clear on auscultation bilaterally Cardiovascular S1-S2, no S3 or S4 Abdomen: Bowel sounds positive, soft no rebound tenderness Skin: No rash Neurological: Alert, oriented, no focal weakness Extremities: 2+ pitting edema in the lower extremities laboratory and microbiology Laboratory Tests 08/06/25 03:00 Test 08/06/25 03:00 Range/Units Serum Glucose 75 74-106 mg/dL Assessment/Plan Assessment: ESKD on HD Acute respiratory failure Hypoxia Sepsis Suspected PNA Fluid overload Anemia of ckd Morbid obesity Plan and recommendations: We will continue dialysis on TTS schedule Vasopressors for hemodynamic support. Keep MAP >65. Wean as tolerated. IV antibiotics. Urine cultures with E.Coli and ESBL. continue midodrine Transfusion p.r.n. Thank you very much for allowing us to participate in the care of this patient please contact if you have any questions. Dietary Evaluation Review Comments: Nutrition Recommendation: 1) Nephro-kishore 1 tab daily 2) Consider CCHO 60gm + cardiac diet 3) Monitor PO intake, lab values, weight trend, and I/O Expected Outcomes/Goals: Lab values to improve Fu 3-5 days Plan discussed with: Patient AFTAB KENDALL MD Aug 06, 2025 14:22
--- NOTE | 2025-08-06 14:43 | DVHPN2 ---
Progress Note Date Seen: Aug 06, 2025 Medical Necessity Reason Pt with a Central, PICC or Fol: Yes The following are medically ne: Tijerina Catheter Reason for tijerina catheter: Strict I&O Objective vital signs Vital Sign Date Time Temp Pulse Resp B/P (MAP) Pulse Ox O2 Delivery O2 Flow Rate FiO2 08/06/25 12:37 75 16 100 08/06/25 12:31 Nasal Cannula* 2 28 08/06/25 11:30 104/50 (68) 08/06/25 08:00 98.0 98.0 Total Intake and Output 08/05/25 08/05/25 08/06/25 15:00 23:00 07:00 Intake Total 615.625 ml 650 ml 290 ml Output Total 25 ml 50 ml Balance 615.625 ml 625 ml 240 ml medications Current Medications Medications Dose Ordered Sig/Sravan Route Start Time Stop Time Status Last Admin Dose Admin Ondansetron HCl 4 mg Q4HP PRN IV 07/24/25 23:30 08/03/25 12:01 4 MG Docusate Sodium 100 mg BIDPRN PRN PO 07/24/25 23:30 08/06/25 06:49 100 MG Acetaminophen 650 mg Q6HP PRN PO 07/24/25 23:30 08/04/25 21:28 650 MG Nitroglycerin 0.4 mg Q5MINP PRN SL 07/24/25 23:30 Diagnostic Test (Pha) 1 strip Q6HR 07/25/25 12:00 08/06/25 12:03 1 STRIP Insulin Human Regular Q6HR SC 07/25/25 12:00 07/30/25 13:12 2 UNITS Dextrose 50 ml UD PRN IV 07/25/25 07:45 Albumin Human 200 ml @ 100 mls/hr Q8H IV 07/26/25 16:30 07/27/25 02:29 UNV Azithromycin 250 ml @ 125 mls/hr DAILY IV 07/27/25 10:00 08/06/25 10:09 125 MLS/HR Sodium Chloride 10 ml QSHIFT@ IV 07/27/25 22:00 08/06/25 10:08 10 ML Amiodarone HCl 200 mg Q12HR PO 07/27/25 22:00 08/06/25 10:09 200 MG Midodrine 10 mg TID@0600,1200,1800 PO 07/27/25 18:00 08/06/25 12:03 10 MG Apixaban 2.5 mg BID PO 07/27/25 22:00 08/06/25 10:09 2.5 MG Pantoprazole Sodium 40 mg DAILY IV 07/28/25 10:00 08/06/25 10:08 40 MG Hydroxychloroquine Sulfate 200 mg DAILY PO 07/28/25 10:00 08/06/25 10:10 200 MG Albuterol 2.5 mg Q4HPRN PRN NEB 07/27/25 17:00 08/06/25 12:31 2.5 MG Patient Own Medication 0.25 mg BID PO 07/27/25 22:00 08/06/25 10:09 0.25 MG Bumetanide 2 mg BIDD IV 07/30/25 18:00 08/06/25 06:15 2 MG Albumin Human 100 ml @ 100 mls/hr PRN PRN IV 07/31/25 08:00 08/02/25 09:25 100 MLS/HR Meropenem 50 ml @ 17 mls/hr DAILY@2200 IV 08/01/25 22:00 08/05/25 21:51 17 MLS/HR Allopurinol 100 mg MWF PO 08/03/25 10:00 08/06/25 10:10 100 MG Gabapentin 300 mg MWF PO 08/03/25 10:00 08/06/25 10:10 300 MG Levothyroxine Sodium 150 mcg QAM@0600 PO 08/01/25 15:45 08/06/25 06:15 150 MCG Acetaminophen/ Hydrocodone Bitart 1 tab Q4HPRN PRN PO 08/03/25 13:15 08/06/25 12:02 1 TAB Fludrocortisone Acetate 0.1 mg BIDWM PO 08/03/25 18:00 08/06/25 07:54 0.1 MG Norepinephrine Bitartrate 250 ml @ 0.938 mls/ hr Q24H IV 08/04/25 12:30 08/04/25 12:35 7.5 MLS/HR Examination: GENERAL:Normal, HEENT:Normal, NECK:Normal, LUNGS:Normal laboratory and microbiology Laboratory Tests 08/06/25 03:00 Test 08/06/25 03:00 Range/Units Serum Glucose 75 74-106 mg/dL Microbiology Date/Time Source Procedure Growth Status 07/26/25 07:49 Nose MRSA Screen - Final Methicillin Resistant S.aureus Complete 07/25/25 14:42 Voided Urine Urine Culture - Final Proteus mirabilis Escherichia coli - ESBL Complete 07/24/25 19:05 Blood Blood Culture - Final NO GROWTH AFTER 5 DAYS OF INCUBATION. Complete Labs and/or images reviewed: Labs reviewed by me, Image(s) reviewed by me Problem List/Assessment/Plan Problem List/Assessment/Plan 74 year old female presents to the ED via EMS with SOB, LE edema, RLE thigh pain. She denies injury. She was found to be hypoxic on her normal supplemental O2. She has history of B/L pressure ulcers. hypoxia sepsis with PNA suspected PNA esrd on hd chronic anemia/anemia of ckd morbid obesity fluid overload 4+ pitting edema weakness acute hypoxic resp failure 08/01/2025 weaning down on Levophed as tolerated pt is on 2 of Levophed, plan to wean off today 08/02/2025: still in levophed, daily weaning 08/03/2025: weaning down on Levophed 08/04/2025: weaning down on Leveophed. now at 4 08/05/2025: pt is off of levophed, will transfer out of ICU if stable within 24 hours 08/06/2025: pt is downgraded to Telemetry time: >45 minutes of critical care time Plan discussed with: Patient Dietary Evaluation Review Comments: Nutrition Recommendation: 1) Nephro-kishore 1 tab daily 2) Consider CCHO 60gm + cardiac diet 3) Monitor PO intake, lab values, weight trend, and I/O Expected Outcomes/Goals: Lab values to improve Fu 3-5 days TORRIE BUTLER DO Aug 06, 2025 14:43
--- NOTE | 2025-08-06 23:46 | DVHPN2 ---
Progress Note - Dictate Date Seen: Aug 06, 2025 Medical Necessity Reason Pt with a Central, PICC or Fol: Yes The following are medically ne: Tijerina Catheter Reason for tijerina catheter: Strict I&O Subjective [facility] Patient seen and examined at bedside Remains on supplemental oxygen Overnight events reviewed. vital signs Vital Sign Date Time Temp Pulse Resp B/P (MAP) Pulse Ox O2 Delivery O2 Flow Rate FiO2 08/06/25 23:41 78 16 100 08/06/25 23:35 Nasal Cannula* 2 28 08/06/25 21:30 101/53 (69) 08/06/25 20:00 98.2 98.2 Total Intake and Output 08/05/25 08/05/25 08/06/25 15:00 23:00 07:00 Intake Total 615.625 ml 650 ml 290 ml Output Total 25 ml 50 ml Balance 615.625 ml 625 ml 240 ml medications Current Medications Medications Dose Ordered Sig/Sravan Route Start Time Stop Time Status Last Admin Dose Admin Ondansetron HCl 4 mg Q4HP PRN IV 07/24/25 23:30 08/03/25 12:01 4 MG Docusate Sodium 100 mg BIDPRN PRN PO 07/24/25 23:30 08/06/25 06:49 100 MG Acetaminophen 650 mg Q6HP PRN PO 07/24/25 23:30 08/04/25 21:28 650 MG Nitroglycerin 0.4 mg Q5MINP PRN SL 07/24/25 23:30 Diagnostic Test (Pha) 1 strip Q6HR 07/25/25 12:00 08/06/25 18:15 1 STRIP Insulin Human Regular Q6HR SC 07/25/25 12:00 07/30/25 13:12 2 UNITS Dextrose 50 ml UD PRN IV 07/25/25 07:45 Albumin Human 200 ml @ 100 mls/hr Q8H IV 07/26/25 16:30 07/27/25 02:29 UNV Azithromycin 250 ml @ 125 mls/hr DAILY IV 07/27/25 10:00 08/06/25 10:09 125 MLS/HR Sodium Chloride 10 ml QSHIFT@10,22 IV 07/27/25 22:00 08/06/25 21:59 10 ML Amiodarone HCl 200 mg Q12HR PO 07/27/25 22:00 08/06/25 21:59 200 MG Midodrine 10 mg TID@0600,1200,1800 PO 07/27/25 18:00 08/06/25 17:44 10 MG Apixaban 2.5 mg BID PO 07/27/25 22:00 08/06/25 22:00 2.5 MG Pantoprazole Sodium 40 mg DAILY IV 07/28/25 10:00 08/06/25 10:08 40 MG Hydroxychloroquine Sulfate 200 mg DAILY PO 07/28/25 10:00 08/06/25 10:10 200 MG Albuterol 2.5 mg Q4HPRN PRN NEB 07/27/25 17:00 08/06/25 23:35 2.5 MG Patient Own Medication 0.25 mg BID PO 07/27/25 22:00 08/06/25 22:00 0.25 MG Bumetanide 2 mg BIDD IV 07/30/25 18:00 08/06/25 17:45 2 MG Albumin Human 100 ml @ 100 mls/hr PRN PRN IV 07/31/25 08:00 08/02/25 09:25 100 MLS/HR Meropenem 50 ml @ 17 mls/hr DAILY@2200 IV 08/01/25 22:00 08/06/25 21:59 17 MLS/HR Allopurinol 100 mg MWF PO 08/03/25 10:00 08/06/25 10:10 100 MG Gabapentin 300 mg MWF PO 08/03/25 10:00 08/06/25 10:10 300 MG Levothyroxine Sodium 150 mcg QAM@0600 PO 08/01/25 15:45 08/06/25 06:15 150 MCG Acetaminophen/ Hydrocodone Bitart 1 tab Q4HPRN PRN PO 08/03/25 13:15 08/06/25 12:02 1 TAB Fludrocortisone Acetate 0.1 mg BIDWM PO 08/03/25 18:00 08/06/25 17:44 0.1 MG Norepinephrine Bitartrate 250 ml @ 0.938 mls/ hr Q24H IV 08/04/25 12:30 08/04/25 12:35 7.5 MLS/HR objective Gen.: Patient lying in bed in no apparent distress. On supplemental oxygen. Head: Normocephalic, atraumatic. Eyes: EOMI/PERRLA. Ears: Normal hearing. Normal anatomy. Neck/trachea: Trachea midline, supple. Nose: Normal external anatomy. Mouth: Moist mucous membranes. Chest: Decreased air entry bilaterally. No wheezing or rhonchi. Cardiovascular: Positive S1, positive S2. Regular rate and rhythm. Abdomen: Positive bowel sounds in all 4 quadrants. Soft, non-tender, non- distended. : Deferred. Rectal: Deferred. Skin: Warm, dry. Intact. Extremities: 2+ radial pulses bilaterally. Bilateral lower extremity 2+ pitting edema. Neuro: Awake, alert, oriented x3. No gross motor or sensory deficits. Cranial nerves II through XII intact. Gait not assessed. laboratory and microbiology Laboratory Tests 08/06/25 03:00 Test 08/06/25 03:00 Range/Units Serum Glucose 75 74-106 mg/dL Assessment/Plan Impression: Acute on chronic hypoxic respiratory failure Dependence on supplemental oxygen CHF exacerbation Septic shock Chronic obstructive pulmonary disease Acute kidney injury Morbid obesity, BMI 37.2 Events: Remains on supplemental oxygen On 2 LPM NC Continue to taper as tolerated MAP goal of 50 mmmHg Off pressors, hemodynamically stable. Patient is AAOx 4, bedbound. No acute overnight events Hemodialysis per Nephrology Follow up Nephrology recommendations Midodrine for BP support - monitor blood pressure HOB elevation Aspiration precautions Continue bronchodilators Continue antibiotics Incentive spirometry On amiodarone PO. Accu-Cheks. Monitor for hypoglycemia. Hemoglobin stable at 7.2 g/dL Protonix for GI ppx Hemodialysis per Nephrology Diurese with Bumex as tolerated Monitor renal function. Monitor electrolytes. Supplement as necessary Pain control Avoid oversedation Wound care. Labs and imaging reviewed. Plan: Supplemental oxygen Titrate to keep O2 sats above 92% Pressors as necessary for hemodynamic support Titrate to keep MAP above 65 mmHg/SBP above 90 mmHg. Continue bronchodilators Continue antibiotics Cultures positive for ESBL in urine. MRSA positive, nares. ID recommendations appreciated Monitor WBC Follow up Cardiology recommendations On Amiodarone, Eliquis PO BID Hemodialysis per Nephrology Diurese to euvolemia Monitor renal function. Monitor electrolytes. Supplement as necessary. Monitor ins and outs. Follow up Nephrology recommendations Protonix for GI prophylaxis Monitor hemoglobin Transfuse if less than 7.0 g/dL. Pain control Avoid oversedation GI/DVT prophylaxis. Prognosis: Poor given patient's multiple co-morbidities. Condition: Critical Rest of plan per hospitalist and other consultants. A total of 35 minutes of critical care time was spent reviewing the patient record, examining the patient, making a diagnostic and therapeutic plan, discussing this plan with the medical personnel, following up on diagnostic studies and following the patient for clinical stability excluding any and all procedures. At least 50% of this time was spent in direct, [id number] contact. Thank you, Dr. Celis, for allowing me to participate in this patient's care. Further recommendations will depend on the patient's clinical course. Please do not hesitate to contact me if you have any questions or concerns. This medical document was created using an electronic medical record system with [employer] dictation system. Although these documentations are being carefully reviewed, there may still be some phonetic and typographical changes. The errors are purely typographical, due to imperfection on the software program, and do not reflect any compromise in the patient's medical care. Dietary Evaluation Review Comments: Nutrition Recommendation: 1) Nephro-kishore 1 tab daily 2) Consider CCHO 60gm + cardiac diet 3) Monitor PO intake, lab values, weight trend, and I/O Expected Outcomes/Goals: Lab values to improve Fu 3-5 days Plan discussed with: Patient, Other (BOSTON Pruitt) Critical Care Time(min): 35 MAGDA VASQUEZ [facility] Aug 06, 2025 23:46
[2025-08-07] VITALS (15 sets, daily range): BP systolic 96–121; BP diastolic 43–76; PULSE 67–92; RESP 15–20; TEMP 97.6–98.1; O2SAT 3–100
[2025-08-07] MEDS: SODIUM CHL 0.9% 1000 ML BAG XX ONE (12:00)
--- NOTE | 2025-08-07 13:51 | DVHPN2 ---
Progress Note - Dictate Date Seen: Aug 07, 2025 Medical Necessity Reason Pt with a Central, PICC or Fol: Yes The following are medically ne: Tijerina Catheter Reason for tijerina catheter: Strict I&O Subjective Patient is undergoing dialysis. She has no complaints today. vital signs Vital Sign Date Time Temp Pulse Resp B/P (MAP) Pulse Ox O2 Delivery O2 Flow Rate FiO2 08/07/25 13:15 70 16 121/50 (73) 08/07/25 13:05 100 2.0 28 08/07/25 08:33 97.8 97.8 08/07/25 08:00 Nasal Cannula* Total Intake and Output 08/06/25 08/06/25 08/07/25 15:00 23:00 07:00 Intake Total 730 ml 480 ml 0 ml Output Total 150 ml Balance 730 ml 330 ml 0 ml medications Current Medications Medications Dose Ordered Sig/Sravan Route Start Time Stop Time Status Last Admin Dose Admin Ondansetron HCl 4 mg Q4HP PRN IV 07/24/25 23:30 08/03/25 12:01 4 MG Docusate Sodium 100 mg BIDPRN PRN PO 07/24/25 23:30 08/06/25 06:49 100 MG Acetaminophen 650 mg Q6HP PRN PO 07/24/25 23:30 08/04/25 21:28 650 MG Nitroglycerin 0.4 mg Q5MINP PRN SL 07/24/25 23:30 Diagnostic Test (Pha) 1 strip Q6HR 07/25/25 12:00 08/07/25 06:00 1 STRIP Insulin Human Regular Q6HR SC 07/25/25 12:00 07/30/25 13:12 2 UNITS Dextrose 50 ml UD PRN IV 07/25/25 07:45 Albumin Human 200 ml @ 100 mls/hr Q8H IV 07/26/25 16:30 07/27/25 02:29 UNV Sodium Chloride 10 ml QSHIFT@ IV 07/27/25 22:00 08/06/25 21:59 10 ML Amiodarone HCl 200 mg Q12HR PO 07/27/25 22:00 08/06/25 21:59 200 MG Midodrine 10 mg TID@0600,1200,1800 PO 07/27/25 18:00 08/07/25 05:29 10 MG Apixaban 2.5 mg BID PO 07/27/25 22:00 08/06/25 22:00 2.5 MG Pantoprazole Sodium 40 mg DAILY IV 07/28/25 10:00 08/06/25 10:08 40 MG Hydroxychloroquine Sulfate 200 mg DAILY PO 07/28/25 10:00 08/06/25 10:10 200 MG Albuterol 2.5 mg Q4HPRN PRN NEB 07/27/25 17:00 08/07/25 06:20 2.5 MG Patient Own Medication 0.25 mg BID PO 07/27/25 22:00 08/06/25 22:00 0.25 MG Bumetanide 2 mg BIDD IV 07/30/25 18:00 08/07/25 05:29 2 MG Albumin Human 100 ml @ 100 mls/hr PRN PRN IV 07/31/25 08:00 08/02/25 09:25 100 MLS/HR Meropenem 50 ml @ 17 mls/hr DAILY@2200 IV 08/01/25 22:00 08/06/25 21:59 17 MLS/HR Allopurinol 100 mg MWF PO 08/03/25 10:00 08/06/25 10:10 100 MG Gabapentin 300 mg MWF PO 08/03/25 10:00 08/06/25 10:10 300 MG Levothyroxine Sodium 150 mcg QAM@0600 PO 08/01/25 15:45 08/07/25 05:29 150 MCG Acetaminophen/ Hydrocodone Bitart 1 tab Q4HPRN PRN PO 08/03/25 13:15 08/07/25 08:23 1 TAB Fludrocortisone Acetate 0.1 mg BIDWM PO 08/03/25 18:00 08/07/25 08:23 0.1 MG Norepinephrine Bitartrate 250 ml @ 0.938 mls/ hr Q24H IV 08/04/25 12:30 08/04/25 12:35 7.5 MLS/HR objective HEENT: No evidence of JVD, no oral ulcers. Pulmonary: Lungs are clear on auscultation bilaterally Cardiovascular S1-S2, no S3 or S4 Abdomen: Bowel sounds positive, soft no rebound tenderness Skin: No rash Neurological: Alert, oriented, no focal weakness Extremities: 2+ pitting edema in the lower extremities laboratory and microbiology Laboratory Tests 08/06/25 03:00 Test 08/06/25 03:00 Range/Units Serum Glucose 75 74-106 mg/dL Assessment/Plan Assessment: ESKD on HD Acute respiratory failure Hypoxia Sepsis Suspected PNA Fluid overload Anemia of ckd Morbid obesity Plan and recommendations: We will continue dialysis on TTS schedule aim for a UF of 3 L today Use albumin today Higher doses of JAIME Vasopressors for hemodynamic support. Keep MAP >65. Wean as tolerated. IV antibiotics. Urine cultures with E.Coli and ESBL. continue midodrine Transfusion p.r.n. Thank you very much for allowing us to participate in the care of this patient please contact if you have any questions. Dietary Evaluation Review Comments: Nutrition Recommendation: 1) Nephro-kishore 1 tab daily 2) Consider CCHO 60gm + cardiac diet 3) Monitor PO intake, lab values, weight trend, and I/O Expected Outcomes/Goals: Lab values to improve Fu 3-5 days Plan discussed with: Patient AFTAB KENDALL MD Aug 07, 2025 13:51
[2025-08-07] MEDS: EPOETIN ALFA-EPBX 10,000 UNIT/1ML VIAL SC ONE (21:11)
--- NOTE | 2025-08-07 23:47 | DVHPN2 ---
Progress Note - Dictate Date Seen: Aug 07, 2025 Medical Necessity Reason Pt with a Central, PICC or Fol: Yes The following are medically ne: Tijerina Catheter Reason for tijerina catheter: Strict I&O Subjective [facility] Patient seen and examined at bedside Remains on supplemental oxygen Overnight events reviewed. vital signs Vital Sign Date Time Temp Pulse Resp B/P (MAP) Pulse Ox O2 Delivery O2 Flow Rate FiO2 08/07/25 21:00 97.6 86 20 101/60 (74) 100 97.6 08/07/25 20:00 Nasal Cannula* 3 32 Total Intake and Output 08/06/25 08/06/25 08/07/25 15:00 23:00 07:00 Intake Total 730 ml 480 ml 0 ml Output Total 150 ml Balance 730 ml 330 ml 0 ml medications Current Medications Medications Dose Ordered Sig/Sravan Route Start Time Stop Time Status Last Admin Dose Admin Ondansetron HCl 4 mg Q4HP PRN IV 07/24/25 23:30 08/03/25 12:01 4 MG Docusate Sodium 100 mg BIDPRN PRN PO 07/24/25 23:30 08/06/25 06:49 100 MG Acetaminophen 650 mg Q6HP PRN PO 07/24/25 23:30 08/04/25 21:28 650 MG Nitroglycerin 0.4 mg Q5MINP PRN SL 07/24/25 23:30 Diagnostic Test (Pha) 1 strip Q6HR 07/25/25 12:00 08/07/25 18:00 1 STRIP Insulin Human Regular Q6HR SC 07/25/25 12:00 07/30/25 13:12 2 UNITS Dextrose 50 ml UD PRN IV 07/25/25 07:45 Albumin Human 200 ml @ 100 mls/hr Q8H IV 07/26/25 16:30 07/27/25 02:29 UNV Sodium Chloride 10 ml QSHIFT@ IV 07/27/25 22:00 08/07/25 21:24 10 ML Amiodarone HCl 200 mg Q12HR PO 07/27/25 22:00 08/07/25 21:12 200 MG Midodrine 10 mg TID@0600,1200,1800 PO 07/27/25 18:00 08/07/25 18:30 10 MG Apixaban 2.5 mg BID PO 07/27/25 22:00 08/07/25 21:12 2.5 MG Pantoprazole Sodium 40 mg DAILY IV 07/28/25 10:00 08/07/25 10:00 40 MG Hydroxychloroquine Sulfate 200 mg DAILY PO 07/28/25 10:00 08/06/25 10:10 200 MG Albuterol 2.5 mg Q4HPRN PRN NEB 07/27/25 17:00 08/07/25 19:35 2.5 MG Patient Own Medication 0.25 mg BID PO 07/27/25 22:00 08/07/25 21:13 0.25 MG Bumetanide 2 mg BIDD IV 07/30/25 18:00 08/07/25 05:29 2 MG Albumin Human 100 ml @ 100 mls/hr PRN PRN IV 07/31/25 08:00 08/02/25 09:25 100 MLS/HR Meropenem 50 ml @ 17 mls/hr DAILY@2200 IV 08/01/25 22:00 08/07/25 21:11 17 MLS/HR Allopurinol 100 mg MWF PO 08/03/25 10:00 08/06/25 10:10 100 MG Gabapentin 300 mg MWF PO 08/03/25 10:00 08/06/25 10:10 300 MG Levothyroxine Sodium 150 mcg QAM@0600 PO 08/01/25 15:45 08/07/25 05:29 150 MCG Acetaminophen/ Hydrocodone Bitart 1 tab Q4HPRN PRN PO 08/03/25 13:15 08/07/25 21:12 1 TAB Fludrocortisone Acetate 0.1 mg BIDWM PO 08/03/25 18:00 08/07/25 18:29 0.1 MG Norepinephrine Bitartrate 250 ml @ 0.938 mls/ hr Q24H IV 08/04/25 12:30 08/04/25 12:35 7.5 MLS/HR objective Gen.: Patient lying in bed in no apparent distress. On supplemental oxygen. Head: Normocephalic, atraumatic. Eyes: EOMI/PERRLA. Ears: Normal hearing. Normal anatomy. Neck/trachea: Trachea midline, supple. Nose: Normal external anatomy. Mouth: Moist mucous membranes. Chest: Decreased air entry bilaterally. No wheezing or rhonchi. Cardiovascular: Positive S1, positive S2. Regular rate and rhythm. Abdomen: Positive bowel sounds in all 4 quadrants. Soft, non-tender, non- distended. : Deferred. Rectal: Deferred. Skin: Warm, dry. Intact. Extremities: 2+ radial pulses bilaterally. Bilateral lower extremity 2+ pitting edema. Neuro: Awake, alert, oriented x3. No gross motor or sensory deficits. Cranial nerves II through XII intact. Gait not assessed. laboratory and microbiology Laboratory Tests 08/06/25 03:00 Test 08/06/25 03:00 Range/Units Serum Glucose 75 74-106 mg/dL Assessment/Plan Impression: Acute on chronic hypoxic respiratory failure Dependence on supplemental oxygen CHF exacerbation Septic shock Chronic obstructive pulmonary disease Acute kidney injury Morbid obesity, BMI 37.2 Events: Remains on supplemental oxygen On 2 LPM NC Continue to taper as tolerated MAP goal of 50 mmmHg Remains off pressors, hemodynamically stable. Patient is alert and oriented, bedbound. No acute overnight events No new complaints. Hemodialysis per Nephrology Follow up Nephrology recommendations Midodrine for BP support - monitor blood pressure HOB elevation Aspiration precautions Continue bronchodilators Continue antibiotics Incentive spirometry On amiodarone PO. Accu-Cheks. Monitor for hypoglycemia. Hemoglobin stable at 7.2 g/dL Protonix for GI ppx Hemodialysis per Nephrology Monitor renal function. Monitor electrolytes. Supplement as necessary Pain control Avoid oversedation Wound care. Labs and imaging reviewed. Plan: Supplemental oxygen Titrate to keep O2 sats above 92% Pressors as necessary for hemodynamic support Titrate to keep MAP above 65 mmHg/SBP above 90 mmHg. Continue bronchodilators Continue antibiotics Cultures positive for ESBL in urine. MRSA positive, nares. ID recommendations appreciated Monitor WBC Follow up Cardiology recommendations On Amiodarone, Eliquis PO BID Hemodialysis per Nephrology Monitor renal function. Monitor electrolytes. Supplement as necessary. Monitor ins and outs. Maintain euvolemia Follow up Nephrology recommendations Protonix for GI prophylaxis Monitor hemoglobin Transfuse if less than 7.0 g/dL. Pain control Avoid oversedation GI/DVT prophylaxis. Prognosis: Poor given patient's multiple co-morbidities. Condition: Critical Rest of plan per hospitalist and other consultants. A total of 35 minutes of critical care time was spent reviewing the patient record, examining the patient, making a diagnostic and therapeutic plan, discussing this plan with the medical personnel, following up on diagnostic studies and following the patient for clinical stability excluding any and all procedures. At least 50% of this time was spent in direct, [id number] contact. Thank you, Dr. Celis, for allowing me to participate in this patient's care. Further recommendations will depend on the patient's clinical course. Please do not hesitate to contact me if you have any questions or concerns. This medical document was created using an electronic medical record system with [employer] dictation system. Although these documentations are being carefully reviewed, there may still be some phonetic and typographical changes. The errors are purely typographical, due to imperfection on the software program, and do not reflect any compromise in the patient's medical care. Dietary Evaluation Review Comments: Nutrition Recommendation: 1) Nephro-kishore 1 tab daily 2) Consider CCHO 60gm + cardiac diet 3) Monitor PO intake, lab values, weight trend, and I/O Expected Outcomes/Goals: Lab values to improve Fu 3-5 days Plan discussed with: Patient, Other (BOSTON Mak) MAGDA VASQUEZ [facility] Aug 07, 2025 23:47
[2025-08-08] VITALS (16 sets, daily range): BP systolic 93–109; BP diastolic 46–76; PULSE 60–93; RESP 14–18; TEMP 97.3–97.8; O2SAT 94–100
[2025-08-08] MEDS: B-COMPLEX W/ C & FOLIC ACID(NEPHROVITE TAB) PO SCH (09:36)
[2025-08-08] MEDS: Juven Orange Powder PACKET 27.5gm PO SCH (09:36)
--- NOTE | 2025-08-08 15:31 | DVHPN2 ---
Progress Note - Dictate Date Seen: Aug 08, 2025 Medical Necessity Reason Pt with a Central, PICC or Fol: Yes The following are medically ne: Tijerina Catheter Reason for tijerina catheter: Strict I&O Subjective No complaints today continues to have leg edema. vital signs Vital Sign Date Time Temp Pulse Resp B/P (MAP) Pulse Ox O2 Delivery O2 Flow Rate FiO2 08/08/25 13:00 97.8 74 18 93/47 (62) 99 97.8 08/08/25 09:27 Nasal Cannula 4.0 08/08/25 09:27 36 Total Intake and Output 08/07/25 08/07/25 08/08/25 15:00 23:00 07:00 Intake Total 100 ml Balance 100 ml medications Current Medications Medications Dose Ordered Sig/Sravan Route Start Time Stop Time Status Last Admin Dose Admin Ondansetron HCl 4 mg Q4HP PRN IV 07/24/25 23:30 08/03/25 12:01 4 MG Docusate Sodium 100 mg BIDPRN PRN PO 07/24/25 23:30 08/06/25 06:49 100 MG Acetaminophen 650 mg Q6HP PRN PO 07/24/25 23:30 08/04/25 21:28 650 MG Nitroglycerin 0.4 mg Q5MINP PRN SL 07/24/25 23:30 Diagnostic Test (Pha) 1 strip Q6HR 07/25/25 12:00 08/08/25 12:00 1 STRIP Insulin Human Regular Q6HR SC 07/25/25 12:00 07/30/25 13:12 2 UNITS Dextrose 50 ml UD PRN IV 07/25/25 07:45 Albumin Human 200 ml @ 100 mls/hr Q8H IV 07/26/25 16:30 07/27/25 02:29 UNV Sodium Chloride 10 ml QSHIFT@10,22 IV 07/27/25 22:00 08/08/25 09:33 10 ML Amiodarone HCl 200 mg Q12HR PO 07/27/25 22:00 08/07/25 21:12 200 MG Midodrine 10 mg TID@0600,1200,1800 PO 07/27/25 18:00 08/08/25 12:00 10 MG Apixaban 2.5 mg BID PO 07/27/25 22:00 08/08/25 09:33 2.5 MG Pantoprazole Sodium 40 mg DAILY IV 07/28/25 10:00 08/08/25 09:33 40 MG Hydroxychloroquine Sulfate 200 mg DAILY PO 07/28/25 10:00 08/06/25 10:10 200 MG Albuterol 2.5 mg Q4HPRN PRN NEB 07/27/25 17:00 08/08/25 09:27 2.5 MG Patient Own Medication 0.25 mg BID PO 07/27/25 22:00 08/08/25 09:33 0.25 MG Bumetanide 2 mg BIDD IV 07/30/25 18:00 08/08/25 05:56 2 MG Albumin Human 100 ml @ 100 mls/hr PRN PRN IV 07/31/25 08:00 08/02/25 09:25 100 MLS/HR Meropenem 50 ml @ 17 mls/hr DAILY@2200 IV 08/01/25 22:00 08/07/25 21:11 17 MLS/HR Allopurinol 100 mg MWF PO 08/03/25 10:00 08/06/25 10:10 100 MG Gabapentin 300 mg MWF PO 08/03/25 10:00 08/08/25 09:33 300 MG Levothyroxine Sodium 150 mcg QAM@0600 PO 08/01/25 15:45 08/08/25 05:56 150 MCG Acetaminophen/ Hydrocodone Bitart 1 tab Q4HPRN PRN PO 08/03/25 13:15 08/07/25 21:12 1 TAB Fludrocortisone Acetate 0.1 mg BIDWM PO 08/03/25 18:00 08/08/25 08:00 0.1 MG Norepinephrine Bitartrate 250 ml @ 0.938 mls/ hr Q24H IV 08/04/25 12:30 08/04/25 12:35 7.5 MLS/HR Multivit/Ca Carb/ B Cmplx/FA/Prenat 1 tab DAILY PO 08/08/25 10:00 08/08/25 09:36 1 TAB Enteral Nutritional Formula 27.5 gm DAILY PO 08/08/25 10:00 08/08/25 09:36 27.5 GM objective HEENT: No evidence of JVD, no oral ulcers. Pulmonary: Lungs are clear on auscultation bilaterally Cardiovascular S1-S2, no S3 or S4 Abdomen: Bowel sounds positive, soft no rebound tenderness Skin: No rash Neurological: Alert, oriented, no focal weakness Extremities: 2+ pitting edema in the lower extremities laboratory and microbiology Laboratory Tests 08/06/25 03:00 Test 08/06/25 03:00 Range/Units Serum Glucose 75 74-106 mg/dL Assessment/Plan Assessment: ESKD on HD Acute respiratory failure Hypoxia Sepsis Suspected PNA Fluid overload Anemia of ckd Morbid obesity Plan and recommendations: Continue dialysis TTS, maximize UF Fluid restriction less than 1 L per day Higher doses of JAIME Vasopressors for hemodynamic support. Keep MAP >65. Wean as tolerated. IV antibiotics. Urine cultures with E.Coli and ESBL. continue midodrine Transfusion p.r.n. Thank you very much for allowing us to participate in the care of this patient please contact if you have any questions. Dietary Evaluation Review Comments: Nutrition Recommendation: 1) Nephro-kishore 1 tab daily 2) Consider CCHO 60gm + cardiac diet 3) Monitor PO intake, lab values, weight trend, and I/O Expected Outcomes/Goals: Lab values to improve Fu 3-5 days Plan discussed with: Patient AFTAB KENDALL MD Aug 08, 2025 15:31
--- NOTE | 2025-08-08 16:44 | DVHPN2 ---
Progress Note Date Seen: Aug 07, 2025 Medical Necessity Reason Pt with a Central, PICC or Fol: Yes The following are medically ne: Tijerina Catheter Reason for tijerina catheter: Strict I&O Objective vital signs Vital Sign Date Time Temp Pulse Resp B/P (MAP) Pulse Ox O2 Delivery O2 Flow Rate FiO2 08/08/25 16:29 86 16 99 08/08/25 16:22 4.0 08/08/25 16:22 Nasal Cannula* 36 08/08/25 13:00 97.8 93/47 (62) 97.8 Total Intake and Output 08/07/25 08/07/25 08/08/25 15:00 23:00 07:00 Intake Total 100 ml Balance 100 ml medications Current Medications Medications Dose Ordered Sig/Sravan Route Start Time Stop Time Status Last Admin Dose Admin Ondansetron HCl 4 mg Q4HP PRN IV 07/24/25 23:30 08/03/25 12:01 4 MG Docusate Sodium 100 mg BIDPRN PRN PO 07/24/25 23:30 08/06/25 06:49 100 MG Acetaminophen 650 mg Q6HP PRN PO 07/24/25 23:30 08/04/25 21:28 650 MG Nitroglycerin 0.4 mg Q5MINP PRN SL 07/24/25 23:30 Diagnostic Test (Pha) 1 strip Q6HR 07/25/25 12:00 08/08/25 12:00 1 STRIP Insulin Human Regular Q6HR SC 07/25/25 12:00 07/30/25 13:12 2 UNITS Dextrose 50 ml UD PRN IV 07/25/25 07:45 Albumin Human 200 ml @ 100 mls/hr Q8H IV 07/26/25 16:30 07/27/25 02:29 UNV Sodium Chloride 10 ml QSHIFT@10,22 IV 07/27/25 22:00 08/08/25 09:33 10 ML Amiodarone HCl 200 mg Q12HR PO 07/27/25 22:00 08/07/25 21:12 200 MG Midodrine 10 mg TID@0600,1200,1800 PO 07/27/25 18:00 08/08/25 12:00 10 MG Apixaban 2.5 mg BID PO 07/27/25 22:00 08/08/25 09:33 2.5 MG Pantoprazole Sodium 40 mg DAILY IV 07/28/25 10:00 08/08/25 09:33 40 MG Hydroxychloroquine Sulfate 200 mg DAILY PO 07/28/25 10:00 08/06/25 10:10 200 MG Albuterol 2.5 mg Q4HPRN PRN NEB 07/27/25 17:00 08/08/25 16:22 2.5 MG Patient Own Medication 0.25 mg BID PO 07/27/25 22:00 08/08/25 09:33 0.25 MG Bumetanide 2 mg BIDD IV 07/30/25 18:00 08/08/25 05:56 2 MG Albumin Human 100 ml @ 100 mls/hr PRN PRN IV 07/31/25 08:00 08/02/25 09:25 100 MLS/HR Meropenem 50 ml @ 17 mls/hr DAILY@2200 IV 08/01/25 22:00 08/07/25 21:11 17 MLS/HR Allopurinol 100 mg MWF PO 08/03/25 10:00 08/06/25 10:10 100 MG Gabapentin 300 mg MWF PO 08/03/25 10:00 08/08/25 09:33 300 MG Levothyroxine Sodium 150 mcg QAM@0600 PO 08/01/25 15:45 08/08/25 05:56 150 MCG Acetaminophen/ Hydrocodone Bitart 1 tab Q4HPRN PRN PO 08/03/25 13:15 08/07/25 21:12 1 TAB Fludrocortisone Acetate 0.1 mg BIDWM PO 08/03/25 18:00 08/08/25 08:00 0.1 MG Norepinephrine Bitartrate 250 ml @ 0.938 mls/ hr Q24H IV 08/04/25 12:30 08/04/25 12:35 7.5 MLS/HR Multivit/Ca Carb/ B Cmplx/FA/Prenat 1 tab DAILY PO 08/08/25 10:00 08/08/25 09:36 1 TAB Enteral Nutritional Formula 27.5 gm DAILY PO 08/08/25 10:00 08/08/25 09:36 27.5 GM laboratory and microbiology Laboratory Tests 08/06/25 03:00 Test 08/06/25 03:00 Range/Units Serum Glucose 75 74-106 mg/dL Microbiology Date/Time Source Procedure Growth Status 07/26/25 07:49 Nose MRSA Screen - Final Methicillin Resistant S.aureus Complete 07/25/25 14:42 Voided Urine Urine Culture - Final Proteus mirabilis Escherichia coli - ESBL Complete 07/24/25 19:05 Blood Blood Culture - Final NO GROWTH AFTER 5 DAYS OF INCUBATION. Complete Labs and/or images reviewed: Labs reviewed by me, Image(s) reviewed by me Problem List/Assessment/Plan Problem List/Assessment/Plan 74 year old female presents to the ED via EMS with SOB, LE edema, RLE thigh pain. She denies injury. She was found to be hypoxic on her normal supplemental O2. She has history of B/L pressure ulcers. hypoxia sepsis with PNA suspected PNA esrd on hd chronic anemia/anemia of ckd morbid obesity fluid overload 4+ pitting edema weakness acute hypoxic resp failure 08/01/2025 weaning down on Levophed as tolerated pt is on 2 of Levophed, plan to wean off today 08/02/2025: still in levophed, daily weaning 08/03/2025: weaning down on Levophed 08/04/2025: weaning down on Leveophed. now at 4 08/05/2025: pt is off of levophed, will transfer out of ICU if stable within 24 hours 08/06/2025: pt is downgraded to Telemetry 08/07/2025: pt to have PT/OT evaluate. pt to be monitored for blood pressure during HD HD per nephrology, continue with midodrine time: >45 minutes of care Plan discussed with: Patient My Orders My Orders Orders - TORRIE BUTLER DO Procedure Category Date Status Time Cardiac DIET 08/08/25 Transmitted Diet-2gna,Lofat,Lochol Breakfast B-Complex W/ C & PHA 08/08/25 In Process Folic Tablet 10:00 Nutritional PHA 08/08/25 In Process Supplements (Eliseo 10:00 Dietary Evaluation Review Comments: Nutrition Recommendation: 1) Nephro-kishore 1 tab daily 2) Consider CCHO 60gm + cardiac diet 3) Monitor PO intake, lab values, weight trend, and I/O Expected Outcomes/Goals: Lab values to improve Fu 3-5 days TORRIE BUTLER DO Aug 08, 2025 16:44
--- NOTE | 2025-08-08 16:46 | DVHDS2 ---
Discharge Summary Date of Admission Jul 24, 2025 at 23:17 Date of Discharge: Aug 08, 2025 Labs/Diagnostic Data: Laboratory Results Test 08/08/25 05:14 08/06/25 03:00 07/30/25 02:30 07/28/25 03:25 POC Glucose 74 mg/dl (70-106) White Blood Count 7.8 10^3/uL (4.4-10.8) Red Blood Count 2.58 10^6/uL (4.0-5.20) Hemoglobin 7.2 g/dL (12.2-16.2) Hematocrit 22.3 % (36.0-46.0) Mean Corpuscular Volume 86.4 fL (80.0-100.0) Mean Corpuscular Hemoglobin 28.0 pg (28.0-32.0) Mean Corpuscular Hemoglobin Concent 32.4 g/dL (32.0-36.0) Red Cell Distribution Width 20.0 % (11.8-14.3) Platelet Count 232 10^3/uL (140-450) Mean Platelet Volume 7.5 fL (6.9-10.8) Neutrophils (%) (Auto) 71.0 % (37.0-80.0) Lymphocytes (%) (Auto) 18.9 % (10.0-50.0) Monocytes (%) (Auto) 7.3 % (0.0-12.0) Eosinophils (%) (Auto) 2.2 % (0.0-7.0) Basophils (%) (Auto) 0.6 % (0.0-2.0) Neutrophils # (Auto) 5.6 10 ^3/uL (1.6-8.6) Lymphocytes # (Auto) 1.5 10 ^3/uL (0.4-5.4) Monocytes # (Auto) 0.6 10 ^3/uL (0-1.3) Eosinophils # (Auto) 0.2 10 ^3/uL (0-0.8) Basophils # (Auto) 0 10 ^3/uL (0-0.2) Nucleated Red Blood Cells 0.1 % Sodium Level 136 mmol/L (136-145) Potassium Level 4.5 mmol/L (3.5-5.1) Chloride Level 99 mmol/L (98-107) Carbon Dioxide Level 30 mmol/L (20-31) Anion Gap 7 (5-15) Blood Urea Nitrogen 20 mg/dL (9-23) Creatinine 2.66 mg/dL (0.550-1.02) Glomerular Filtration Rate Calc 18 mL/min (>90) BUN/Creatinine Ratio 7.5 (10.0-20.0) Serum Glucose 75 mg/dL (74-106) Calcium Level 9.1 mg/dL (8.7-10.4) Phosphorus Level 2.4 mg/dL (2.4-5.1) Magnesium Level 2.0 mg/dL (1.6-2.6) Total Bilirubin 0.4 mg/dL (0.2-1.0) Aspartate Amino Transferase (AST) 14 U/L (13-40) Alanine Aminotransferase (ALT) 10 U/L (7-40) Alkaline Phosphatase 120 U/L (46-116) Total Protein 5.2 g/dL (5.7-8.2) Albumin 2.5 g/dL (3.2-4.8) Free Thyroxine (T4) Calculated 0.98 ng/dL (0.89-1.76) Test 07/27/25 02:52 07/25/25 13:11 07/25/25 04:26 07/25/25 02:37 Prothrombin Time 13.4 sec (9.3-11.8) Prothrombin Time INR 1.30 (0.9-1.15) Activated Partial Thromboplast Time 36.1 SEC (24.5-34.5) Thyroid Stimulating Hormone (TSH) 0.25 uIU/mL (0.55-4.78) Lactic Acid Level 1.5 mmol/L (0.4-2.0) Hepatitis B Surface Antigen Negative (Negative) Urine Color Dark-brown (Yellow) Urine Clarity Ex.turbid (Clear) Urine pH 6.5 (5.0-9.0) Urine Specific [place] 1.014 (1.001-1.035) Urine Protein 2+ (Negative) Urine Ketones Negative (Negative) Urine Blood 3+ /uL (Negative) Urine Nitrite Negative (Negative) Urine Bilirubin Negative (Negative) Urine Urobilinogen Normal mg/dL (Negative) Urine Leukocyte Esterase 2+ /uL (Negative) Urine RBC 122 /hpf (0 - 4) Urine WBC Clumps Present /hpf (None Seen) Urine Microscopic WBC 3100 /HPF (0-5) Urine Squamous Epithelial Cells Few /hpf (<5) Urine Bacteria Many /hpf (None Seen) Urine Mucus Few (None Seen) Urine Glucose Normal mg/dL (Normal) Test 07/25/25 00:35 07/24/25 22:00 07/24/25 19:05 Blood Gas Specimen Type Arterial Blood Gas Sample Site Right radial Blood Gas Patient Temperature 37.0 Arterial Blood Date Drawn [id number] Arterial Blood pH 7.502 (7.350-7.450) Arterial Blood Partial Pressure CO2 39.5 mmHg (32.0-45.0) Arterial Blood Partial Pressure O2 86.1 mmHg (83.0-108.0) Arterial Blood HCO3 30.3 mmol/L (21.0-28.0) Arterial Blood Oxygen Saturation 96.0 % (94.0-98.0) Arterial Blood Base Excess 6.6 mmol/L (-2.0-3.0) Arterial Blood Oxyhemoglobin 94.8 % (94.0-98.0) Arterial Blood Carboxyhemoglobin 0.9 % (0.5-1.5) Arterial Blood Methemoglobin 0.3 % (0.0-1.5) [place] Test Yes Blood Gas Total Hemoglobin 9.90 g/dL (12.0-16.0) Blood Gas Modality Mask - bipap FiO2 % 30.0 Blood Gas EPAP 5 Blood Gas IPAP 12 Troponin I High Sensitivity 19 ng/L (</=34) B-Type Natriuretic Peptide 214.77 pg/mL (0-100) Other Laboratory Tests 08/06/25 03:00 Brief Hx & Hospital Course: 74 year old female presents to the ED via EMS with SOB, LE edema, RLE thigh pain. She denies injury. She was found to be hypoxic on her normal supplemental O2. She has history of B/L pressure ulcers. hypoxia sepsis with PNA suspected PNA esrd on hd chronic anemia/anemia of ckd morbid obesity fluid overload 4+ pitting edema weakness acute hypoxic resp failure pt is arranged to be discharged to home with vs back to [facility] Condition at Discharge: Fair Final Diagnosis/Problems List see above Discharge Disposition: Home with Health Services Discharge Instruct/Medications Diet: Cardiac 2g Na,low cholest Activity: No Restrictions, As Tolerated Scheduled Albuterol Sulfate (Ventolin Mdi), 90 MCG IN Q6HP, (Reported) Allopurinol (Allopurinol), 100 MG PO DAILY, (Reported) Amiodarone HCl (Amiodarone HCl), 1 TAB PO BID, (Reported) Apixaban Base (Eliquis), 1 TAB PO BID, (Reported) Atorvastatin Calcium (Atorvastatin Calcium), 1 TAB PO DAILY, (Reported) Azithromycin (Zithromax Tablet), 250 MG PO DAILY Bumetanide (Bumetanide), 1 TAB PO BID, (Reported) Clobetasol Propionate (Clobetasol Propionate), 1 APPLIC TOP BID, (Reported) Fluticasone-Salmeterol (Advair Diskus 500/50), 1 PUFF INH BID, (Reported) Fluticasone-Salmeterol (Fluticasone Propionate/SA 500-50 Mcg/Dose), 1 PUFF PO BID, (Reported) Gabapentin (Gabapentin), 300 MG PO BID, (Reported) Hydroxychloroquine Sulfate (Plaquenil), 1 TAB PO DAILY, (Reported) Lactulose (Lactulose), 15 ML PO DAILY, (Reported) Levothyroxine Sodium (Levothyroxine Sodium), 1 TAB PO DAILY, (Reported) Meclizine HCl (Meclizine 25), 25 MG PO BID, (Reported) Midodrine Hcl (Midodrine Hcl), 1 TAB PO BID, (Reported) Pantoprazole Sodium Sesquihydr (Pantoprazole Sodium), 1 TAB PO DAILY, (Reported) Potassium Chloride (Potassium Chloride ER), 1 TAB PO BID, (Reported) Prednisone (Prednisone), 20 MG PO BID Ropinirole Hydrochloride (Ropinirole Hcl), 1 TAB PO BID, (Reported) Discharge Statement: "Patient was advised to return to the ER or call 911 if any headaches, dizziness, shortness of breath, chest pain, abdominal pain, bleeding, fevers, or worsening of medical condition. Patient was counseled about treatment plan, medications, possible side effects, patientverbalized understanding. All questions were answered to the best of my ability. This discharge took greater then 30 minutes in planning, reviewing documentation, counseling the patient, and discussing with other team members." ASSESSMENT ASSESSMENT Assessment TORRIE BUTLER DO Aug 08, 2025 16:46
--- NOTE | 2025-08-08 23:50 | DVHPN2 ---
Progress Note - Dictate Date Seen: Aug 08, 2025 Medical Necessity Reason Pt with a Central, PICC or Fol: Yes The following are medically ne: Tijerina Catheter Reason for tijerina catheter: Strict I&O Subjective [facility] Patient seen and examined at bedside Remains on supplemental oxygen Overnight events reviewed. vital signs Vital Sign Date Time Temp Pulse Resp B/P (MAP) Pulse Ox O2 Delivery O2 Flow Rate FiO2 08/08/25 22:29 73 16 100 08/08/25 22:22 Nasal Cannula* 3 32 08/08/25 21:00 97.5 94/46 (62) 97.5 Total Intake and Output 08/07/25 08/07/25 08/08/25 15:00 23:00 07:00 Intake Total 100 ml Balance 100 ml medications Current Medications Medications Dose Ordered Sig/Sravan Route Start Time Stop Time Status Last Admin Dose Admin Ondansetron HCl 4 mg Q4HP PRN IV 07/24/25 23:30 08/03/25 12:01 4 MG Docusate Sodium 100 mg BIDPRN PRN PO 07/24/25 23:30 08/06/25 06:49 100 MG Acetaminophen 650 mg Q6HP PRN PO 07/24/25 23:30 08/04/25 21:28 650 MG Nitroglycerin 0.4 mg Q5MINP PRN SL 07/24/25 23:30 Diagnostic Test (Pha) 1 strip Q6HR 07/25/25 12:00 08/08/25 18:08 1 STRIP Insulin Human Regular Q6HR SC 07/25/25 12:00 07/30/25 13:12 2 UNITS Dextrose 50 ml UD PRN IV 07/25/25 07:45 Albumin Human 200 ml @ 100 mls/hr Q8H IV 07/26/25 16:30 07/27/25 02:29 UNV Sodium Chloride 10 ml QSHIFT@ IV 07/27/25 22:00 08/08/25 21:42 10 ML Amiodarone HCl 200 mg Q12HR PO 07/27/25 22:00 08/08/25 21:41 200 MG Midodrine 10 mg TID@0600,1200,1800 PO 07/27/25 18:00 08/08/25 18:08 10 MG Apixaban 2.5 mg BID PO 07/27/25 22:00 08/08/25 21:41 2.5 MG Pantoprazole Sodium 40 mg DAILY IV 07/28/25 10:00 08/08/25 09:33 40 MG Hydroxychloroquine Sulfate 200 mg DAILY PO 07/28/25 10:00 08/06/25 10:10 200 MG Albuterol 2.5 mg Q4HPRN PRN NEB 07/27/25 17:00 08/08/25 22:23 2.5 MG Patient Own Medication 0.25 mg BID PO 07/27/25 22:00 08/08/25 21:41 0.25 MG Bumetanide 2 mg BIDD IV 07/30/25 18:00 08/08/25 18:08 2 MG Albumin Human 100 ml @ 100 mls/hr PRN PRN IV 07/31/25 08:00 08/02/25 09:25 100 MLS/HR Meropenem 50 ml @ 17 mls/hr DAILY@2200 IV 08/01/25 22:00 08/08/25 21:40 17 MLS/HR Allopurinol 100 mg MWF PO 08/03/25 10:00 08/06/25 10:10 100 MG Gabapentin 300 mg MWF PO 08/03/25 10:00 08/08/25 09:33 300 MG Levothyroxine Sodium 150 mcg QAM@0600 PO 08/01/25 15:45 08/08/25 05:56 150 MCG Acetaminophen/ Hydrocodone Bitart 1 tab Q4HPRN PRN PO 08/03/25 13:15 08/07/25 21:12 1 TAB Fludrocortisone Acetate 0.1 mg BIDWM PO 08/03/25 18:00 08/08/25 18:08 0.1 MG Norepinephrine Bitartrate 250 ml @ 0.938 mls/ hr Q24H IV 08/04/25 12:30 08/04/25 12:35 7.5 MLS/HR Multivit/Ca Carb/ B Cmplx/FA/Prenat 1 tab DAILY PO 08/08/25 10:00 08/08/25 09:36 1 TAB Enteral Nutritional Formula 27.5 gm DAILY PO 08/08/25 10:00 08/08/25 09:36 27.5 GM objective Gen.: Patient lying in bed in no apparent distress. On supplemental oxygen. Head: Normocephalic, atraumatic. Eyes: EOMI/PERRLA. Ears: Normal hearing. Normal anatomy. Neck/trachea: Trachea midline, supple. Nose: Normal external anatomy. Mouth: Moist mucous membranes. Chest: Decreased air entry bilaterally. No wheezing or rhonchi. Cardiovascular: Positive S1, positive S2. Regular rate and rhythm. Abdomen: Positive bowel sounds in all 4 quadrants. Soft, non-tender, non- distended. : Deferred. Rectal: Deferred. Skin: Warm, dry. Intact. Extremities: 2+ radial pulses bilaterally. Bilateral lower extremity 2+ pitting edema. Neuro: Awake, alert, oriented x3. No gross motor or sensory deficits. Cranial nerves II through XII intact. Gait not assessed. laboratory and microbiology Laboratory Tests 08/06/25 03:00 Test 08/06/25 03:00 Range/Units Serum Glucose 75 74-106 mg/dL Assessment/Plan Impression: Acute on chronic hypoxic respiratory failure Dependence on supplemental oxygen CHF exacerbation Septic shock Chronic obstructive pulmonary disease Acute kidney injury Morbid obesity, BMI 37.2 Events: Remains on supplemental oxygen On 2 LPM NC Continue to taper as tolerated MAP goal of 50 mmmHg Remains off pressors, hemodynamically stable. Patient is alert and oriented, bedbound. No acute overnight events No new complaints. Hemodialysis per Nephrology Follow up Nephrology recommendations Midodrine for BP support - monitor blood pressure HOB elevation Aspiration precautions Continue bronchodilators Continue antibiotics Incentive spirometry On amiodarone PO. Accu-Cheks. Monitor for hypoglycemia. Monitor hemoglobin Protonix for GI ppx Hemodialysis per Nephrology Monitor renal function. Monitor electrolytes. Supplement as necessary Pain control Avoid oversedation Wound care. Labs and imaging reviewed. Plan: Supplemental oxygen Titrate to keep O2 sats above 92% Pressors as necessary for hemodynamic support Titrate to keep MAP above 65 mmHg/SBP above 90 mmHg. Continue bronchodilators Continue antibiotics Cultures positive for ESBL in urine. MRSA positive, nares. ID recommendations appreciated Monitor WBC Follow up Cardiology recommendations On Amiodarone, Eliquis PO BID Hemodialysis per Nephrology Monitor renal function. Monitor electrolytes. Supplement as necessary. Monitor ins and outs. Maintain euvolemia Follow up Nephrology recommendations Protonix for GI prophylaxis Monitor hemoglobin Transfuse if less than 7.0 g/dL. Pain control Avoid oversedation GI/DVT prophylaxis. Prognosis: Poor given patient's multiple co-morbidities. Rest of plan per hospitalist and other consultants. Thank you, Dr. Celis, for allowing me to participate in this patient's care. Further recommendations will depend on the patient's clinical course. Please do not hesitate to contact me if you have any questions or concerns. This medical document was created using an electronic medical record system with [employer] dictation system. Although these documentations are being carefully reviewed, there may still be some phonetic and typographical changes. The errors are purely typographical, due to imperfection on the software program, and do not reflect any compromise in the patient's medical care. Dietary Evaluation Review Comments: Nutrition Recommendation: 1) Nephro-kishore 1 tab daily 2) Consider CCHO 60gm + cardiac diet 3) Monitor PO intake, lab values, weight trend, and I/O Expected Outcomes/Goals: Lab values to improve Fu 3-5 days Plan discussed with: Patient, Other ([place]ST[place] Mak) MAGDA VASQUEZ [facility] Aug 08, 2025 23:50
[2025-08-09] VITALS (12 sets, daily range): BP systolic 79–106; BP diastolic 38–56; PULSE 64–85; RESP 7–19; TEMP 97.2–97.9; O2SAT 95–100
[2025-08-09] MEDS: SODIUM CHLORIDE 0.9% 250 ML IV ONE (04:19)
[2025-08-09 05:33] LABS: Hemoglobin 7.8 g/dL (12.2-16.2)
[2025-08-09 05:35] LABS: Hematocrit 24.8 % (36.0-46.0)
[2025-08-09 05:59] LABS: Iron 44.0 ug/dL (50-170); Total Iron Binding Capacity 131.0 ug/dL (250-425)
[2025-08-09] MEDS ORDERED: SODIUM CHL 0.9% 1000 ML BAG XX ONE (07:00)
--- NOTE | 2025-08-09 15:22 | DVHPN2 ---
Progress Note - Dictate Date Seen: Aug 09, 2025 Medical Necessity Reason Pt with a Central, PICC or Fol: Yes The following are medically ne: Tijerina Catheter Reason for tijerina catheter: Strict I&O Subjective No complaints today continues to have leg edema. vital signs Vital Sign Date Time Temp Pulse Resp B/P (MAP) Pulse Ox O2 Delivery O2 Flow Rate FiO2 08/09/25 12:44 97.9 76 18 79/38 (52) 100 97.9 08/09/25 08:00 Nasal Cannula* 3 32 Total Intake and Output 08/08/25 08/08/25 08/09/25 15:00 23:00 07:00 Intake Total 600 ml 405 ml Balance 600 ml 405 ml medications Current Medications Medications Dose Ordered Sig/Sravan Route Start Time Stop Time Status Last Admin Dose Admin Ondansetron HCl 4 mg Q4HP PRN IV 07/24/25 23:30 08/03/25 12:01 4 MG Docusate Sodium 100 mg BIDPRN PRN PO 07/24/25 23:30 08/06/25 06:49 100 MG Acetaminophen 650 mg Q6HP PRN PO 07/24/25 23:30 08/04/25 21:28 650 MG Nitroglycerin 0.4 mg Q5MINP PRN SL 07/24/25 23:30 Diagnostic Test (Pha) 1 strip Q6HR 07/25/25 12:00 08/09/25 11:50 1 STRIP Insulin Human Regular Q6HR SC 07/25/25 12:00 07/30/25 13:12 2 UNITS Dextrose 50 ml UD PRN IV 07/25/25 07:45 Albumin Human 200 ml @ 100 mls/hr Q8H IV 07/26/25 16:30 07/27/25 02:29 UNV Sodium Chloride 10 ml QSHIFT@10,22 IV 07/27/25 22:00 08/09/25 09:22 10 ML Amiodarone HCl 200 mg Q12HR PO 07/27/25 22:00 08/09/25 09:22 200 MG Midodrine 10 mg TID@0600,1200,1800 PO 07/27/25 18:00 08/09/25 12:07 10 MG Apixaban 2.5 mg BID PO 07/27/25 22:00 08/09/25 09:22 2.5 MG Pantoprazole Sodium 40 mg DAILY IV 07/28/25 10:00 08/09/25 09:21 40 MG Hydroxychloroquine Sulfate 200 mg DAILY PO 07/28/25 10:00 08/09/25 09:22 200 MG Albuterol 2.5 mg Q4HPRN PRN NEB 07/27/25 17:00 08/09/25 07:22 2.5 MG Patient Own Medication 0.25 mg BID PO 07/27/25 22:00 08/09/25 09:22 0.25 MG Bumetanide 2 mg BIDD IV 07/30/25 18:00 08/09/25 05:42 2 MG Albumin Human 100 ml @ 100 mls/hr PRN PRN IV 07/31/25 08:00 08/02/25 09:25 100 MLS/HR Meropenem 50 ml @ 17 mls/hr DAILY@2200 IV 08/01/25 22:00 08/08/25 21:40 17 MLS/HR Allopurinol 100 mg MWF PO 08/03/25 10:00 08/06/25 10:10 100 MG Gabapentin 300 mg MWF PO 08/03/25 10:00 08/08/25 09:33 300 MG Levothyroxine Sodium 150 mcg QAM@0600 PO 08/01/25 15:45 08/09/25 05:43 150 MCG Acetaminophen/ Hydrocodone Bitart 1 tab Q4HPRN PRN PO 08/03/25 13:15 08/07/25 21:12 1 TAB Fludrocortisone Acetate 0.1 mg BIDWM PO 08/03/25 18:00 08/09/25 07:58 0.1 MG Norepinephrine Bitartrate 250 ml @ 0.938 mls/ hr Q24H IV 08/04/25 12:30 08/04/25 12:35 7.5 MLS/HR Multivit/Ca Carb/ B Cmplx/FA/Prenat 1 tab DAILY PO 08/08/25 10:00 08/09/25 09:22 1 TAB Enteral Nutritional Formula 27.5 gm DAILY PO 08/08/25 10:00 08/09/25 09:22 27.5 GM objective HEENT: No evidence of JVD, no oral ulcers. Pulmonary: Lungs are clear on auscultation bilaterally Cardiovascular S1-S2, no S3 or S4 Abdomen: Bowel sounds positive, soft no rebound tenderness Skin: No rash Neurological: Alert, oriented, no focal weakness Extremities: 2+ pitting edema in the lower extremities laboratory and microbiology Laboratory Tests 08/09/25 04:40 08/06/25 03:00 Test 08/06/25 03:00 Range/Units Serum Glucose 75 74-106 mg/dL Assessment/Plan Assessment: ESKD on HD Acute respiratory failure Hypoxia Sepsis Suspected PNA Fluid overload Anemia of ckd Morbid obesity Plan and recommendations: Continue dialysis TTS, maximize UF. 3 L UF today Fluid restriction less than 1 L per day Higher doses of JAIME Vasopressors for hemodynamic support. Keep MAP >65. Wean as tolerated. IV antibiotics. Urine cultures with E.Coli and ESBL. continue midodrine Transfusion p.r.n. Okay to discharge home after dialysis today Thank you very much for allowing us to participate in the care of this patient please contact if you have any questions. Dietary Evaluation Review Comments: Nutrition Recommendation: 1) Nephro-kishore 1 tab daily 2) Consider CCHO 60gm + cardiac diet 3) Monitor PO intake, lab values, weight trend, and I/O Expected Outcomes/Goals: Lab values to improve Fu 3-5 days Plan discussed with: Patient, Daughter TORSTENAFTAB VASQUEZ MD Aug 09, 2025 15:21
[2025-08-09] MEDS: EPOETIN ALFA-EPBX 10,000 UNIT/1ML VIAL SC ONE (21:00)
[2025-08-10] VITALS (15 sets, daily range): BP systolic 95–111; BP diastolic 42–56; PULSE 64–87; RESP 16–21; TEMP 36.7; O2SAT 95–100
[2025-08-10] MEDS: MIDODRINE HCL 10 MG TAB PO ONE (00:58)
--- NOTE | 2025-08-10 14:46 | DVHPN2 ---
Progress Note - Dictate Date Seen: Aug 10, 2025 Medical Necessity Reason Pt with a Central, PICC or Fol: Yes The following are medically ne: Tijerina Catheter Reason for tijerina catheter: Strict I&O Subjective No complaints today continues to have leg edema. vital signs Vital Sign Date Time Temp Pulse Resp B/P (MAP) Pulse Ox O2 Delivery O2 Flow Rate FiO2 08/10/25 13:39 87 18 99 08/10/25 13:33 Nasal Cannula 2.0 08/10/25 13:33 28 08/10/25 12:18 36.7 08/10/25 09:00 105/42 (63) medications Current Medications Medications Dose Ordered Sig/Sravan Route Start Time Stop Time Status Last Admin Dose Admin Ondansetron HCl 4 mg Q4HP PRN IV 07/24/25 23:30 08/03/25 12:01 4 MG Docusate Sodium 100 mg BIDPRN PRN PO 07/24/25 23:30 08/06/25 06:49 100 MG Acetaminophen 650 mg Q6HP PRN PO 07/24/25 23:30 08/10/25 05:54 650 MG Nitroglycerin 0.4 mg Q5MINP PRN SL 07/24/25 23:30 Diagnostic Test (Pha) 1 strip Q6HR 07/25/25 12:00 08/10/25 05:54 1 STRIP Insulin Human Regular Q6HR SC 07/25/25 12:00 07/30/25 13:12 2 UNITS Dextrose 50 ml UD PRN IV 07/25/25 07:45 Albumin Human 200 ml @ 100 mls/hr Q8H IV 07/26/25 16:30 07/27/25 02:29 UNV Sodium Chloride 10 ml QSHIFT@10,22 IV 07/27/25 22:00 08/10/25 09:34 10 ML Amiodarone HCl 200 mg Q12HR PO 07/27/25 22:00 08/10/25 09:33 200 MG Midodrine 10 mg TID@0600,1200,1800 PO 07/27/25 18:00 08/10/25 06:01 10 MG Apixaban 2.5 mg BID PO 07/27/25 22:00 08/10/25 09:34 2.5 MG Pantoprazole Sodium 40 mg DAILY IV 07/28/25 10:00 08/10/25 09:33 40 MG Hydroxychloroquine Sulfate 200 mg DAILY PO 07/28/25 10:00 08/10/25 09:34 200 MG Albuterol 2.5 mg Q4HPRN PRN NEB 07/27/25 17:00 08/10/25 13:33 2.5 MG Patient Own Medication 0.25 mg BID PO 07/27/25 22:00 08/10/25 09:34 0.25 MG Bumetanide 2 mg BIDD IV 07/30/25 18:00 08/10/25 06:00 2 MG Albumin Human 100 ml @ 100 mls/hr PRN PRN IV 07/31/25 08:00 08/02/25 09:25 100 MLS/HR Meropenem 50 ml @ 17 mls/hr DAILY@2200 IV 08/01/25 22:00 08/09/25 22:00 17 MLS/HR Allopurinol 100 mg MWF PO 08/03/25 10:00 08/10/25 09:34 100 MG Gabapentin 300 mg MWF PO 08/03/25 10:00 08/10/25 09:34 300 MG Levothyroxine Sodium 150 mcg QAM@0600 PO 08/01/25 15:45 08/10/25 05:54 150 MCG Acetaminophen/ Hydrocodone Bitart 1 tab Q4HPRN PRN PO 08/03/25 13:15 08/10/25 00:10 1 TAB Fludrocortisone Acetate 0.1 mg BIDWM PO 08/03/25 18:00 08/10/25 09:34 0.1 MG Norepinephrine Bitartrate 250 ml @ 0.938 mls/ hr Q24H IV 08/04/25 12:30 08/04/25 12:35 7.5 MLS/HR Multivit/Ca Carb/ B Cmplx/FA/Prenat 1 tab DAILY PO 08/08/25 10:00 08/10/25 09:33 1 TAB Enteral Nutritional Formula 27.5 gm DAILY PO 08/08/25 10:00 08/10/25 09:34 27.5 GM objective HEENT: No evidence of JVD, no oral ulcers. Pulmonary: Lungs are clear on auscultation bilaterally Cardiovascular S1-S2, no S3 or S4 Abdomen: Bowel sounds positive, soft no rebound tenderness Skin: No rash Neurological: Alert, oriented, no focal weakness Extremities: 2+ pitting edema in the lower extremities laboratory and microbiology Laboratory Tests 08/09/25 04:40 08/06/25 03:00 Test 08/06/25 03:00 Range/Units Serum Glucose 75 74-106 mg/dL Assessment/Plan Assessment: ESKD on HD Acute respiratory failure Hypoxia Sepsis Suspected PNA Fluid overload Anemia of ckd Morbid obesity Plan and recommendations: Continue dialysis TTS, maximize UF. 3 L UF today Fluid restriction less than 1 L per day Higher doses of JAIME Vasopressors for hemodynamic support. Keep MAP >65. Wean as tolerated. IV antibiotics. Urine cultures with E.Coli and ESBL. continue midodrine Transfusion p.r.n. Okay to discharge home after dialysis today Thank you very much for allowing us to participate in the care of this patient please contact if you have any questions. Dietary Evaluation Review Comments: Nutrition Recommendation: 1) Nephro-kishore 1 tab daily 2) Consider CCHO 60gm + cardiac diet 3) Monitor PO intake, lab values, weight trend, and I/O Expected Outcomes/Goals: Lab values to improve Fu 3-5 days AFTAB KENDALL MD Aug 10, 2025 14:46
--- NOTE | 2025-08-10 15:05 | DVHPN2 ---
Progress Note - Dictate Date Seen: Aug 10, 2025 Medical Necessity Reason Pt with a Central, PICC or Fol: Yes The following are medically ne: Tijerina Catheter Reason for tijerina catheter: Strict I&O Subjective Patient has no complaints, she wants to go home but endorses she does not have transportation to her dialysis tomorrow arranged yet. vital signs Vital Sign Date Time Temp Pulse Resp B/P (MAP) Pulse Ox O2 Delivery O2 Flow Rate FiO2 08/10/25 13:39 87 18 99 08/10/25 13:33 Nasal Cannula 2.0 08/10/25 13:33 28 08/10/25 12:18 36.7 08/10/25 09:00 105/42 (63) medications Current Medications Medications Dose Ordered Sig/Sravan Route Start Time Stop Time Status Last Admin Dose Admin Ondansetron HCl 4 mg Q4HP PRN IV 07/24/25 23:30 08/03/25 12:01 4 MG Docusate Sodium 100 mg BIDPRN PRN PO 07/24/25 23:30 08/06/25 06:49 100 MG Acetaminophen 650 mg Q6HP PRN PO 07/24/25 23:30 08/10/25 05:54 650 MG Nitroglycerin 0.4 mg Q5MINP PRN SL 07/24/25 23:30 Diagnostic Test (Pha) 1 strip Q6HR 07/25/25 12:00 08/10/25 05:54 1 STRIP Insulin Human Regular Q6HR SC 07/25/25 12:00 07/30/25 13:12 2 UNITS Dextrose 50 ml UD PRN IV 07/25/25 07:45 Albumin Human 200 ml @ 100 mls/hr Q8H IV 07/26/25 16:30 07/27/25 02:29 UNV Sodium Chloride 10 ml QSHIFT@10,22 IV 07/27/25 22:00 08/10/25 09:34 10 ML Amiodarone HCl 200 mg Q12HR PO 07/27/25 22:00 08/10/25 09:33 200 MG Midodrine 10 mg TID@0600,1200,1800 PO 07/27/25 18:00 08/10/25 06:01 10 MG Apixaban 2.5 mg BID PO 07/27/25 22:00 08/10/25 09:34 2.5 MG Pantoprazole Sodium 40 mg DAILY IV 07/28/25 10:00 08/10/25 09:33 40 MG Hydroxychloroquine Sulfate 200 mg DAILY PO 07/28/25 10:00 08/10/25 09:34 200 MG Albuterol 2.5 mg Q4HPRN PRN NEB 07/27/25 17:00 08/10/25 13:33 2.5 MG Patient Own Medication 0.25 mg BID PO 07/27/25 22:00 08/10/25 09:34 0.25 MG Bumetanide 2 mg BIDD IV 07/30/25 18:00 08/10/25 06:00 2 MG Albumin Human 100 ml @ 100 mls/hr PRN PRN IV 07/31/25 08:00 08/02/25 09:25 100 MLS/HR Meropenem 50 ml @ 17 mls/hr DAILY@2200 IV 08/01/25 22:00 08/09/25 22:00 17 MLS/HR Allopurinol 100 mg MWF PO 08/03/25 10:00 08/10/25 09:34 100 MG Gabapentin 300 mg MWF PO 08/03/25 10:00 08/10/25 09:34 300 MG Levothyroxine Sodium 150 mcg QAM@0600 PO 08/01/25 15:45 08/10/25 05:54 150 MCG Acetaminophen/ Hydrocodone Bitart 1 tab Q4HPRN PRN PO 08/03/25 13:15 08/10/25 00:10 1 TAB Fludrocortisone Acetate 0.1 mg BIDWM PO 08/03/25 18:00 08/10/25 09:34 0.1 MG Norepinephrine Bitartrate 250 ml @ 0.938 mls/ hr Q24H IV 08/04/25 12:30 08/04/25 12:35 7.5 MLS/HR Multivit/Ca Carb/ B Cmplx/FA/Prenat 1 tab DAILY PO 08/08/25 10:00 08/10/25 09:33 1 TAB Enteral Nutritional Formula 27.5 gm DAILY PO 08/08/25 10:00 08/10/25 09:34 27.5 GM objective HEENT: No evidence of JVD, no oral ulcers. Pulmonary: Lungs are clear on auscultation bilaterally Cardiovascular S1-S2, no S3 or S4 Abdomen: Bowel sounds positive, soft no rebound tenderness Skin: No rash Neurological: Alert, oriented, no focal weakness Extremities: 2+ pitting edema in the lower extremities laboratory and microbiology Laboratory Tests 08/09/25 04:40 08/06/25 03:00 Test 08/06/25 03:00 Range/Units Serum Glucose 75 74-106 mg/dL Assessment/Plan Assessment: ESKD on HD Acute respiratory failure Hypoxia Sepsis Suspected PNA Fluid overload Anemia of ckd Morbid obesity Plan and recommendations: Continue dialysis TTS maximize UF Fluid restriction less than 1 L per day Higher doses of JAIME Vasopressors for hemodynamic support. Keep MAP >65. Wean as tolerated. IV antibiotics. Urine cultures with E.Coli and ESBL. continue midodrine Transfusion p.r.n. 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 Thank you very much for allowing us to participate in the care of this patient please contact if you have any questions. Dietary Evaluation Review Comments: Nutrition Recommendation: 1) Nephro-kishore 1 tab daily 2) Consider CCHO 60gm + cardiac diet 3) Monitor PO intake, lab values, weight trend, and I/O Expected Outcomes/Goals: Lab values to improve Fu 3-5 days Plan discussed with: Patient AFTAB KENDALL MD Aug 10, 2025 15:05
[2025-08-10] MEDS ORDERED: AZIT-185 PO (15:24)
--- NOTE | 2025-08-10 15:24 | DVHPN2 ---
Progress Note Date Seen: Aug 10, 2025 Medical Necessity Reason Pt with a Central, PICC or Fol: Yes The following are medically ne: Tijerina Catheter Reason for tijerina catheter: Strict I&O Subjective Review of Systems: HEENT:Normal, CVS:Normal, RESPIRATORY:Normal, GI:Normal, :Normal, MSK:Normal Objective vital signs Vital Sign Date Time Temp Pulse Resp B/P (MAP) Pulse Ox O2 Delivery O2 Flow Rate FiO2 08/10/25 13:39 87 18 99 08/10/25 13:33 Nasal Cannula 2.0 08/10/25 13:33 28 08/10/25 13:00 97.9 102/47 (65) 97.9 medications Current Medications Medications Dose Ordered Sig/Sravan Route Start Time Stop Time Status Last Admin Dose Admin Ondansetron HCl 4 mg Q4HP PRN IV 07/24/25 23:30 08/03/25 12:01 4 MG Docusate Sodium 100 mg BIDPRN PRN PO 07/24/25 23:30 08/06/25 06:49 100 MG Acetaminophen 650 mg Q6HP PRN PO 07/24/25 23:30 08/10/25 05:54 650 MG Nitroglycerin 0.4 mg Q5MINP PRN SL 07/24/25 23:30 Diagnostic Test (Pha) 1 strip Q6HR 07/25/25 12:00 08/10/25 05:54 1 STRIP Insulin Human Regular Q6HR SC 07/25/25 12:00 07/30/25 13:12 2 UNITS Dextrose 50 ml UD PRN IV 07/25/25 07:45 Albumin Human 200 ml @ 100 mls/hr Q8H IV 07/26/25 16:30 07/27/25 02:29 UNV Sodium Chloride 10 ml QSHIFT@10,22 IV 07/27/25 22:00 08/10/25 09:34 10 ML Amiodarone HCl 200 mg Q12HR PO 07/27/25 22:00 08/10/25 09:33 200 MG Midodrine 10 mg TID@0600,1200,1800 PO 07/27/25 18:00 08/10/25 06:01 10 MG Apixaban 2.5 mg BID PO 07/27/25 22:00 08/10/25 09:34 2.5 MG Pantoprazole Sodium 40 mg DAILY IV 07/28/25 10:00 08/10/25 09:33 40 MG Hydroxychloroquine Sulfate 200 mg DAILY PO 07/28/25 10:00 08/10/25 09:34 200 MG Albuterol 2.5 mg Q4HPRN PRN NEB 07/27/25 17:00 08/10/25 13:33 2.5 MG Patient Own Medication 0.25 mg BID PO 07/27/25 22:00 08/10/25 09:34 0.25 MG Bumetanide 2 mg BIDD IV 07/30/25 18:00 08/10/25 06:00 2 MG Albumin Human 100 ml @ 100 mls/hr PRN PRN IV 07/31/25 08:00 08/02/25 09:25 100 MLS/HR Meropenem 50 ml @ 17 mls/hr DAILY@2200 IV 08/01/25 22:00 08/09/25 22:00 17 MLS/HR Allopurinol 100 mg MWF PO 08/03/25 10:00 08/10/25 09:34 100 MG Gabapentin 300 mg MWF PO 08/03/25 10:00 08/10/25 09:34 300 MG Levothyroxine Sodium 150 mcg QAM@0600 PO 08/01/25 15:45 08/10/25 05:54 150 MCG Acetaminophen/ Hydrocodone Bitart 1 tab Q4HPRN PRN PO 08/03/25 13:15 08/10/25 00:10 1 TAB Fludrocortisone Acetate 0.1 mg BIDWM PO 08/03/25 18:00 08/10/25 09:34 0.1 MG Norepinephrine Bitartrate 250 ml @ 0.938 mls/ hr Q24H IV 08/04/25 12:30 08/04/25 12:35 7.5 MLS/HR Multivit/Ca Carb/ B Cmplx/FA/Prenat 1 tab DAILY PO 08/08/25 10:00 08/10/25 09:33 1 TAB Enteral Nutritional Formula 27.5 gm DAILY PO 08/08/25 10:00 08/10/25 09:34 27.5 GM Examination: GENERAL:Normal, HEENT:Normal, NECK:Normal, LUNGS:Normal laboratory and microbiology Laboratory Tests 08/09/25 04:40 08/06/25 03:00 Test 08/06/25 03:00 Range/Units Serum Glucose 75 74-106 mg/dL Microbiology Date/Time Source Procedure Growth Status 07/26/25 07:49 Nose MRSA Screen - Final Methicillin Resistant S.aureus Complete 07/25/25 14:42 Voided Urine Urine Culture - Final Proteus mirabilis Escherichia coli - ESBL Complete 07/24/25 19:05 Blood Blood Culture - Final NO GROWTH AFTER 5 DAYS OF INCUBATION. Complete Labs and/or images reviewed: Labs reviewed by me, Image(s) reviewed by me Problem List/Assessment/Plan Problem List/Assessment/Plan 74 year old female presents to the ED via EMS with SOB, LE edema, RLE thigh pain. She denies injury. She was found to be hypoxic on her normal supplemental O2. She has history of B/L pressure ulcers. hypoxia sepsis with PNA suspected PNA esrd on hd chronic anemia/anemia of ckd morbid obesity fluid overload 4+ pitting edema weakness acute hypoxic resp failure 08/01/2025 weaning down on Levophed as tolerated pt is on 2 of Levophed, plan to wean off today 08/02/2025: still in levophed, daily weaning 08/03/2025: weaning down on Levophed 08/04/2025: weaning down on Leveophed. now at 4 08/05/2025: pt is off of levophed, will transfer out of ICU if stable within 24 hours 08/06/2025: pt is downgraded to Telemetry 08/10/2025: pt to be discharged to 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
--- NOTE | 2025-08-10 15:24 | DVHPN2 ---
Progress Note Date Seen: Aug 09, 2025 Medical Necessity Reason Pt with a Central, PICC or Fol: Yes The following are medically ne: Tijerina Catheter Reason for tijerina catheter: Strict I&O Objective vital signs Vital Sign Date Time Temp Pulse Resp B/P (MAP) Pulse Ox O2 Delivery O2 Flow Rate FiO2 08/10/25 13:39 87 18 99 08/10/25 13:33 Nasal Cannula 2.0 08/10/25 13:33 28 08/10/25 13:00 97.9 102/47 (65) 97.9 medications Current Medications Medications Dose Ordered Sig/Sravan Route Start Time Stop Time Status Last Admin Dose Admin Ondansetron HCl 4 mg Q4HP PRN IV 07/24/25 23:30 08/03/25 12:01 4 MG Docusate Sodium 100 mg BIDPRN PRN PO 07/24/25 23:30 08/06/25 06:49 100 MG Acetaminophen 650 mg Q6HP PRN PO 07/24/25 23:30 08/10/25 05:54 650 MG Nitroglycerin 0.4 mg Q5MINP PRN SL 07/24/25 23:30 Diagnostic Test (Pha) 1 strip Q6HR 07/25/25 12:00 08/10/25 05:54 1 STRIP Insulin Human Regular Q6HR SC 07/25/25 12:00 07/30/25 13:12 2 UNITS Dextrose 50 ml UD PRN IV 07/25/25 07:45 Albumin Human 200 ml @ 100 mls/hr Q8H IV 07/26/25 16:30 07/27/25 02:29 UNV Sodium Chloride 10 ml QSHIFT@ IV 07/27/25 22:00 08/10/25 09:34 10 ML Amiodarone HCl 200 mg Q12HR PO 07/27/25 22:00 08/10/25 09:33 200 MG Midodrine 10 mg TID@0600,1200,1800 PO 07/27/25 18:00 08/10/25 06:01 10 MG Apixaban 2.5 mg BID PO 07/27/25 22:00 08/10/25 09:34 2.5 MG Pantoprazole Sodium 40 mg DAILY IV 07/28/25 10:00 08/10/25 09:33 40 MG Hydroxychloroquine Sulfate 200 mg DAILY PO 07/28/25 10:00 08/10/25 09:34 200 MG Albuterol 2.5 mg Q4HPRN PRN NEB 07/27/25 17:00 08/10/25 13:33 2.5 MG Patient Own Medication 0.25 mg BID PO 07/27/25 22:00 08/10/25 09:34 0.25 MG Bumetanide 2 mg BIDD IV 07/30/25 18:00 08/10/25 06:00 2 MG Albumin Human 100 ml @ 100 mls/hr PRN PRN IV 07/31/25 08:00 08/02/25 09:25 100 MLS/HR Meropenem 50 ml @ 17 mls/hr DAILY@2200 IV 08/01/25 22:00 08/09/25 22:00 17 MLS/HR Allopurinol 100 mg MWF PO 08/03/25 10:00 08/10/25 09:34 100 MG Gabapentin 300 mg MWF PO 08/03/25 10:00 08/10/25 09:34 300 MG Levothyroxine Sodium 150 mcg QAM@0600 PO 08/01/25 15:45 08/10/25 05:54 150 MCG Acetaminophen/ Hydrocodone Bitart 1 tab Q4HPRN PRN PO 08/03/25 13:15 08/10/25 00:10 1 TAB Fludrocortisone Acetate 0.1 mg BIDWM PO 08/03/25 18:00 08/10/25 09:34 0.1 MG Norepinephrine Bitartrate 250 ml @ 0.938 mls/ hr Q24H IV 08/04/25 12:30 08/04/25 12:35 7.5 MLS/HR Multivit/Ca Carb/ B Cmplx/FA/Prenat 1 tab DAILY PO 08/08/25 10:00 08/10/25 09:33 1 TAB Enteral Nutritional Formula 27.5 gm DAILY PO 08/08/25 10:00 08/10/25 09:34 27.5 GM laboratory and microbiology Laboratory Tests 08/09/25 04:40 08/06/25 03:00 Test 08/06/25 03:00 Range/Units Serum Glucose 75 74-106 mg/dL Microbiology Date/Time Source Procedure Growth Status 07/26/25 07:49 Nose MRSA Screen - Final Methicillin Resistant S.aureus Complete 07/25/25 14:42 Voided Urine Urine Culture - Final Proteus mirabilis Escherichia coli - ESBL Complete 07/24/25 19:05 Blood Blood Culture - Final NO GROWTH AFTER 5 DAYS OF INCUBATION. Complete Labs and/or images reviewed: Labs reviewed by me, Image(s) reviewed by me Problem List/Assessment/Plan Problem List/Assessment/Plan 74 year old female presents to the ED via EMS with SOB, LE edema, RLE thigh pain. She denies injury. She was found to be hypoxic on her normal supplemental O2. She has history of B/L pressure ulcers. hypoxia sepsis with PNA suspected PNA esrd on hd chronic anemia/anemia of ckd morbid obesity fluid overload 4+ pitting edema weakness acute hypoxic resp failure 08/01/2025 weaning down on Levophed as tolerated pt is on 2 of Levophed, plan to wean off today 08/02/2025: still in levophed, daily weaning 08/03/2025: weaning down on Levophed 08/04/2025: weaning down on Leveophed. 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
[2025-08-10 15:44] LABS: Hemoglobin 8.0 g/dL (12.2-16.2); Nucleated Red Blood Cells % 0.1 %
[2025-08-10 15:46] LABS: Hematocrit 25.3 % (36.0-46.0); Mean Corpuscular Hemoglobin 27.8 pg (28.0-32.0); Mean Corpuscular Volume 88.3 fL (80.0-100.0)
[2025-08-10 15:53] LABS: Alkaline Phosphatase 95 U/L (46-116); Anion Gap 9 (5-15); BUN/Creatinine Ratio 5.2 (10.0-20.0); Blood Urea Nitrogen 13 mg/dL (9-23); Calcium 8.9 mg/dL (8.7-10.4); Carbon Dioxide 29 mmol/L (20-31); Chloride 98 mmol/L (98-107); Glucose 84 mg/dL (74-106); Sodium 136 mmol/L (136-145); Total Protein 6.1 g/dL (5.7-8.2)
[2025-08-10 15:54] LABS: Bilirubin, Total 0.8 mg/dL (0.2-1.0)
[2025-08-10 15:55] LABS: Alanine Aminotransferase < 9 U/L (7-40); Albumin 3.2 g/dL (3.2-4.8); Potassium 3.5 mmol/L (3.5-5.1)
[2025-08-11] VITALS (14 sets, daily range): BP systolic 88–119; BP diastolic 5–64; PULSE 61–83; RESP 16–20; TEMP 97.9–98.6; O2SAT 95–100
[2025-08-11 05:02] LABS: Hemoglobin 7.6 g/dL (12.2-16.2); Mean Corpuscular Volume 86.9 fL (80.0-100.0)
[2025-08-11 05:05] LABS: Hematocrit 23.5 % (36.0-46.0); Mean Corpuscular Hemoglobin 28.2 pg (28.0-32.0); Nucleated Red Blood Cells % 0.0 %
[2025-08-11 05:33] LABS: Alkaline Phosphatase 90 U/L (46-116); Anion Gap 10 (5-15); BUN/Creatinine Ratio 5.2 (10.0-20.0); Blood Urea Nitrogen 15 mg/dL (9-23); Calcium 8.8 mg/dL (8.7-10.4); Carbon Dioxide 29 mmol/L (20-31); Chloride 99 mmol/L (98-107); Sodium 138 mmol/L (136-145); Total Protein 5.8 g/dL (5.7-8.2)
[2025-08-11 05:34] LABS: Bilirubin, Total 0.8 mg/dL (0.2-1.0)
[2025-08-11 05:37] LABS: Alanine Aminotransferase < 9 U/L (7-40); Albumin 3.1 g/dL (3.2-4.8); Glucose 72 mg/dL (74-106); Potassium 3.1 mmol/L (3.5-5.1)
[2025-08-11] MEDS ORDERED: SODIUM CHL 0.9% 1000 ML BAG XX ONE (07:00)
--- NOTE | 2025-08-11 14:07 | DVHPN2 ---
Progress Note - Dictate Date Seen: Aug 11, 2025 Medical Necessity Reason Pt with a Central, PICC or Fol: Yes The following are medically ne: Tijerina Catheter Reason for tijerina catheter: Strict I&O Subjective Patient has no complaints, she wants to go home but endorses she does not have transportation to her dialysis tomorrow arranged yet. vital signs Vital Sign Date Time Temp Pulse Resp B/P (MAP) Pulse Ox O2 Delivery O2 Flow Rate FiO2 08/11/25 12:30 98.1 61 20 102/54 (70) 98 98.1 08/11/25 08:00 Nasal Cannula* 3 32 Total Intake and Output 08/10/25 08/10/25 08/11/25 15:00 23:00 07:00 Intake Total 850 ml 240 ml Output Total 250 ml Balance 600 ml 240 ml medications Current Medications Medications Dose Ordered Sig/Sravan Route Start Time Stop Time Status Last Admin Dose Admin Ondansetron HCl 4 mg Q4HP PRN IV 07/24/25 23:30 08/03/25 12:01 4 MG Docusate Sodium 100 mg BIDPRN PRN PO 07/24/25 23:30 08/06/25 06:49 100 MG Acetaminophen 650 mg Q6HP PRN PO 07/24/25 23:30 08/11/25 06:39 650 MG Nitroglycerin 0.4 mg Q5MINP PRN SL 07/24/25 23:30 Diagnostic Test (Pha) 1 strip Q6HR 07/25/25 12:00 08/11/25 12:07 1 STRIP Insulin Human Regular Q6HR SC 07/25/25 12:00 07/30/25 13:12 2 UNITS Dextrose 50 ml UD PRN IV 07/25/25 07:45 Albumin Human 200 ml @ 100 mls/hr Q8H IV 07/26/25 16:30 07/27/25 02:29 UNV Sodium Chloride 10 ml QSHIFT@ IV 07/27/25 22:00 08/11/25 08:50 10 ML Amiodarone HCl 200 mg Q12HR PO 07/27/25 22:00 08/11/25 08:50 200 MG Midodrine 10 mg TID@0600,1200,1800 PO 07/27/25 18:00 08/11/25 12:07 10 MG Apixaban 2.5 mg BID PO 07/27/25 22:00 08/11/25 08:50 2.5 MG Pantoprazole Sodium 40 mg DAILY IV 07/28/25 10:00 08/11/25 08:50 40 MG Hydroxychloroquine Sulfate 200 mg DAILY PO 07/28/25 10:00 08/11/25 08:50 200 MG Albuterol 2.5 mg Q4HPRN PRN NEB 07/27/25 17:00 08/11/25 00:16 2.5 MG Patient Own Medication 0.25 mg BID PO 07/27/25 22:00 08/11/25 08:50 0.25 MG Bumetanide 2 mg BIDD IV 07/30/25 18:00 08/10/25 17:22 2 MG Albumin Human 100 ml @ 100 mls/hr PRN PRN IV 07/31/25 08:00 08/02/25 09:25 100 MLS/HR Meropenem 50 ml @ 17 mls/hr DAILY@2200 IV 08/01/25 22:00 08/10/25 21:22 17 MLS/HR Allopurinol 100 mg MWF PO 08/03/25 10:00 08/10/25 09:34 100 MG Gabapentin 300 mg MWF PO 08/03/25 10:00 08/10/25 09:34 300 MG Levothyroxine Sodium 150 mcg QAM@0600 PO 08/01/25 15:45 08/11/25 05:39 150 MCG Acetaminophen/ Hydrocodone Bitart 1 tab Q4HPRN PRN PO 08/03/25 13:15 08/11/25 08:57 1 TAB Fludrocortisone Acetate 0.1 mg BIDWM PO 08/03/25 18:00 08/11/25 08:50 0.1 MG Norepinephrine Bitartrate 250 ml @ 0.938 mls/ hr Q24H IV 08/04/25 12:30 08/04/25 12:35 7.5 MLS/HR Multivit/Ca Carb/ B Cmplx/FA/Prenat 1 tab DAILY PO 08/08/25 10:00 08/11/25 08:50 1 TAB Enteral Nutritional Formula 27.5 gm DAILY PO 08/08/25 10:00 08/11/25 08:51 27.5 GM objective HEENT: No evidence of JVD, no oral ulcers. Pulmonary: Lungs are clear on auscultation bilaterally Cardiovascular S1-S2, no S3 or S4 Abdomen: Bowel sounds positive, soft no rebound tenderness Skin: No rash Neurological: Alert, oriented, no focal weakness Extremities: 2+ pitting edema in the lower extremities laboratory and microbiology Laboratory Tests 08/11/25 04:34 Test 08/11/25 04:34 Range/Units Serum Glucose 72 L 74-106 mg/dL Assessment/Plan Assessment: ESKD on HD Acute respiratory failure Hypoxia Sepsis Suspected PNA Fluid overload Anemia of ckd Morbid obesity Plan and recommendations: Dialysis today Fluid restriction less than 1 L per day Higher doses of JAIME Vasopressors for hemodynamic support. Keep MAP >65. Wean as tolerated. IV antibiotics. Urine cultures with E.Coli and ESBL. continue midodrine Transfusion p.r.n. Okay to discharge home after dialysis today. Thank you very much for allowing us to participate in the care of this patient please contact if you have any questions. Dietary Evaluation Review Comments: Nutrition Recommendation: 1) Nephro-kishore 1 tab daily 2) Consider CCHO 60gm + cardiac diet 3) Monitor PO intake, lab values, weight trend, and I/O Expected Outcomes/Goals: Lab values to improve Fu 3-5 days Plan discussed with: Patient AFTAB KENDALL MD Aug 11, 2025 14:07
--- NOTE | 2025-08-11 14:48 | DVHPN2 ---
Progress Note Date Seen: Aug 11, 2025 Medical Necessity Reason Pt with a Central, PICC or Fol: Yes The following are medically ne: Tijerina Catheter Reason for tijerina catheter: Strict I&O Objective vital signs Vital Sign Date Time Temp Pulse Resp B/P (MAP) Pulse Ox O2 Delivery O2 Flow Rate FiO2 08/11/25 12:30 98.1 61 20 102/54 (70) 98 98.1 08/11/25 08:00 Nasal Cannula* 3 32 Total Intake and Output 08/10/25 08/10/25 08/11/25 15:00 23:00 07:00 Intake Total 850 ml 240 ml Output Total 250 ml Balance 600 ml 240 ml medications Current Medications Medications Dose Ordered Sig/Sravan Route Start Time Stop Time Status Last Admin Dose Admin Ondansetron HCl 4 mg Q4HP PRN IV 07/24/25 23:30 08/03/25 12:01 4 MG Docusate Sodium 100 mg BIDPRN PRN PO 07/24/25 23:30 08/06/25 06:49 100 MG Acetaminophen 650 mg Q6HP PRN PO 07/24/25 23:30 08/11/25 06:39 650 MG Nitroglycerin 0.4 mg Q5MINP PRN SL 07/24/25 23:30 Diagnostic Test (Pha) 1 strip Q6HR 07/25/25 12:00 08/11/25 12:07 1 STRIP Insulin Human Regular Q6HR SC 07/25/25 12:00 07/30/25 13:12 2 UNITS Dextrose 50 ml UD PRN IV 07/25/25 07:45 Albumin Human 200 ml @ 100 mls/hr Q8H IV 07/26/25 16:30 07/27/25 02:29 UNV Sodium Chloride 10 ml QSHIFT@10,22 IV 07/27/25 22:00 08/11/25 08:50 10 ML Amiodarone HCl 200 mg Q12HR PO 07/27/25 22:00 08/11/25 08:50 200 MG Midodrine 10 mg TID@0600,1200,1800 PO 07/27/25 18:00 08/11/25 12:07 10 MG Apixaban 2.5 mg BID PO 07/27/25 22:00 08/11/25 08:50 2.5 MG Pantoprazole Sodium 40 mg DAILY IV 07/28/25 10:00 08/11/25 08:50 40 MG Hydroxychloroquine Sulfate 200 mg DAILY PO 07/28/25 10:00 08/11/25 08:50 200 MG Albuterol 2.5 mg Q4HPRN PRN NEB 07/27/25 17:00 08/11/25 00:16 2.5 MG Patient Own Medication 0.25 mg BID PO 07/27/25 22:00 08/11/25 08:50 0.25 MG Bumetanide 2 mg BIDD IV 07/30/25 18:00 08/10/25 17:22 2 MG Albumin Human 100 ml @ 100 mls/hr PRN PRN IV 07/31/25 08:00 08/02/25 09:25 100 MLS/HR Meropenem 50 ml @ 17 mls/hr DAILY@2200 IV 08/01/25 22:00 08/10/25 21:22 17 MLS/HR Allopurinol 100 mg MWF PO 08/03/25 10:00 08/10/25 09:34 100 MG Gabapentin 300 mg MWF PO 08/03/25 10:00 08/10/25 09:34 300 MG Levothyroxine Sodium 150 mcg QAM@0600 PO 08/01/25 15:45 08/11/25 05:39 150 MCG Acetaminophen/ Hydrocodone Bitart 1 tab Q4HPRN PRN PO 08/03/25 13:15 08/11/25 08:57 1 TAB Fludrocortisone Acetate 0.1 mg BIDWM PO 08/03/25 18:00 08/11/25 08:50 0.1 MG Norepinephrine Bitartrate 250 ml @ 0.938 mls/ hr Q24H IV 08/04/25 12:30 08/04/25 12:35 7.5 MLS/HR Multivit/Ca Carb/ B Cmplx/FA/Prenat 1 tab DAILY PO 08/08/25 10:00 08/11/25 08:50 1 TAB Enteral Nutritional Formula 27.5 gm DAILY PO 08/08/25 10:00 08/11/25 08:51 27.5 GM laboratory and microbiology Laboratory Tests 08/11/25 04:34 Test 08/11/25 04:34 Range/Units Serum Glucose 72 L 74-106 mg/dL Microbiology Date/Time Source Procedure Growth Status 07/26/25 07:49 Nose MRSA Screen - Final Methicillin Resistant S.aureus Complete 07/25/25 14:42 Voided Urine Urine Culture - Final Proteus mirabilis Escherichia coli - ESBL Complete 07/24/25 19:05 Blood Blood Culture - Final NO GROWTH AFTER 5 DAYS OF INCUBATION. Complete Labs and/or images reviewed: Labs reviewed by me, Image(s) reviewed by me Problem List/Assessment/Plan Problem List/Assessment/Plan 74 year old female presents to the ED via EMS with SOB, LE edema, RLE thigh pain. She denies injury. She was found to be hypoxic on her normal supplemental O2. She has history of B/L pressure ulcers. hypoxia sepsis with PNA suspected PNA esrd on hd chronic anemia/anemia of ckd morbid obesity fluid overload 4+ pitting edema weakness acute hypoxic resp failure 08/01/2025 weaning down on Levophed as tolerated pt is on 2 of Levophed, plan to wean off today 08/02/2025: still in levophed, daily weaning 08/03/2025: weaning down on Levophed 08/04/2025: weaning down on Leveophed. now at 4 08/05/2025: pt is off of levophed, will transfer out of ICU if stable within 24 hours 08/06/2025: pt is downgraded to Telemetry 08/07/2025: pt to have PT/OT evaluate. pt to be monitored for blood pressure during HD HD per nephrology, continue with midodrine 08/11/2025: pt changed her mind to go back to [facility] and wants to be discharged to home time: >45 minutes of care Plan discussed with: Patient Dietary Evaluation Review Comments: Nutrition Recommendation: 1) Nephro-kishore 1 tab daily 2) Consider CCHO 60gm + cardiac diet 3) Monitor PO intake, lab values, weight trend, and I/O Expected Outcomes/Goals: Lab values to improve Fu 3-5 days TORRIE BUTLER DO Aug 11, 2025 14:48
[2025-08-11] MEDS: EPOETIN ALFA-EPBX 10,000 UNIT/1ML VIAL SC ONE (21:07)
[2025-08-12] VITALS (15 sets, daily range): BP systolic 88–100; BP diastolic 41–66; PULSE 64–82; RESP 12–19; TEMP 98.3–99.2; O2SAT 97–100
--- NOTE | 2025-08-12 14:19 | DVHPN2 ---
Progress Note - Dictate Date Seen: Aug 12, 2025 Medical Necessity Reason Pt with a Central, PICC or Fol: Yes The following are medically ne: Tijerina Catheter Reason for tijerina catheter: Strict I&O Subjective Patient has no complaints, she wants to go home. vital signs Vital Sign Date Time Temp Pulse Resp B/P (MAP) Pulse Ox O2 Delivery O2 Flow Rate FiO2 08/12/25 12:33 99.2 74 17 88/43 (58) 100 99.2 08/12/25 08:05 Nasal Cannula* 4 36 Total Intake and Output 08/11/25 08/11/25 08/12/25 15:00 23:00 07:00 Intake Total 450 ml Balance 450 ml medications Current Medications Medications Dose Ordered Sig/Sravan Route Start Time Stop Time Status Last Admin Dose Admin Ondansetron HCl 4 mg Q4HP PRN IV 07/24/25 23:30 08/12/25 09:12 4 MG Docusate Sodium 100 mg BIDPRN PRN PO 07/24/25 23:30 08/06/25 06:49 100 MG Acetaminophen 650 mg Q6HP PRN PO 07/24/25 23:30 08/11/25 17:09 650 MG Nitroglycerin 0.4 mg Q5MINP PRN SL 07/24/25 23:30 Diagnostic Test (Pha) 1 strip Q6HR 07/25/25 12:00 08/12/25 12:20 1 STRIP Insulin Human Regular Q6HR SC 07/25/25 12:00 07/30/25 13:12 2 UNITS Dextrose 50 ml UD PRN IV 07/25/25 07:45 Albumin Human 200 ml @ 100 mls/hr Q8H IV 07/26/25 16:30 07/27/25 02:29 UNV Sodium Chloride 10 ml QSHIFT@10,22 IV 07/27/25 22:00 08/12/25 08:34 10 ML Amiodarone HCl 200 mg Q12HR PO 07/27/25 22:00 08/12/25 08:34 200 MG Midodrine 10 mg TID@0600,1200,1800 PO 07/27/25 18:00 08/12/25 12:21 10 MG Apixaban 2.5 mg BID PO 07/27/25 22:00 08/12/25 08:34 2.5 MG Pantoprazole Sodium 40 mg DAILY IV 07/28/25 10:00 08/12/25 08:32 40 MG Hydroxychloroquine Sulfate 200 mg DAILY PO 07/28/25 10:00 08/12/25 08:33 200 MG Albuterol 2.5 mg Q4HPRN PRN NEB 07/27/25 17:00 08/12/25 06:55 2.5 MG Patient Own Medication 0.25 mg BID PO 07/27/25 22:00 08/12/25 08:34 0.25 MG Bumetanide 2 mg BIDD IV 07/30/25 18:00 08/10/25 17:22 2 MG Albumin Human 100 ml @ 100 mls/hr PRN PRN IV 07/31/25 08:00 08/02/25 09:25 100 MLS/HR Meropenem 50 ml @ 17 mls/hr DAILY@2200 IV 08/01/25 22:00 08/11/25 21:15 17 MLS/HR Allopurinol 100 mg MWF PO 08/03/25 10:00 08/10/25 09:34 100 MG Gabapentin 300 mg MWF PO 08/03/25 10:00 08/10/25 09:34 300 MG Levothyroxine Sodium 150 mcg QAM@0600 PO 08/01/25 15:45 08/12/25 06:01 150 MCG Acetaminophen/ Hydrocodone Bitart 1 tab Q4HPRN PRN PO 08/03/25 13:15 08/11/25 21:06 1 TAB Fludrocortisone Acetate 0.1 mg BIDWM PO 08/03/25 18:00 08/12/25 08:33 0.1 MG Norepinephrine Bitartrate 250 ml @ 0.938 mls/ hr Q24H IV 08/04/25 12:30 08/04/25 12:35 7.5 MLS/HR Multivit/Ca Carb/ B Cmplx/FA/Prenat 1 tab DAILY PO 08/08/25 10:00 08/12/25 08:33 1 TAB Enteral Nutritional Formula 27.5 gm DAILY PO 08/08/25 10:00 08/11/25 08:51 27.5 GM objective HEENT: No evidence of JVD, no oral ulcers. Pulmonary: Lungs are clear on auscultation bilaterally Cardiovascular S1-S2, no S3 or S4 Abdomen: Bowel sounds positive, soft no rebound tenderness Skin: No rash Neurological: Alert, oriented, no focal weakness Extremities: 2+ pitting edema in the lower extremities laboratory and microbiology Laboratory Tests 08/11/25 04:34 Test 08/11/25 04:34 Range/Units Serum Glucose 72 L 74-106 mg/dL Assessment/Plan Assessment: ESKD on HD Acute respiratory failure Hypoxia Sepsis Suspected PNA Fluid overload Anemia of ckd Morbid obesity Plan and recommendations: Dialysis TTS Fluid restriction less than 1 L per day Higher doses of JAIME Vasopressors for hemodynamic support. Keep MAP >65. Wean as tolerated. IV antibiotics. Urine cultures with E.Coli and ESBL. continue midodrine Transfusion p.r.n. Okay to discharge home after dialysis today. Thank you very much for allowing us to participate in the care of this patient please contact if you have any questions. Dietary Evaluation Review Comments: Nutrition Recommendation: 1) Nephro-kishore 1 tab daily 2) Consider CCHO 60gm + cardiac diet 3) Monitor PO intake, lab values, weight trend, and I/O Expected Outcomes/Goals: Lab values to improve Fu 3-5 days Plan discussed with: Patient AFTAB KENDALL MD Aug 12, 2025 14:19
[2025-08-13] VITALS (7 sets, daily range): BP systolic 88–102; BP diastolic 49–60; PULSE 72–79; RESP 16–18; TEMP 97.8–98.2; O2SAT 98–100
--- NOTE | 2025-08-13 01:17 | DVHPN2 ---
Reviewed: Care Plan, H&P Changes from previous H/P or p: No Changes General: Per HPI Objective Vitals Vital Signs Date Time Temp Pulse Resp B/P (MAP) Pulse Ox O2 Delivery O2 Flow Rate FiO2 08/12/25 22:43 77 12 100 08/12/25 22:37 Nasal Cannula* 2 28 08/12/25 20:43 98.7 99/54 (69) 98.7 Intake/Output Intake and Output 08/13/25 07:00 Intake Total 800 ml Output Total 200 ml Balance 600 ml Intake Oral 800 ml Emesis 200 ml # Bowel Movements 1 Medications Current Medications Medications Dose Ordered Sig/Sravan Route Start Time Stop Time Status Last Admin Dose Admin Ondansetron HCl 4 mg Q4HP PRN IV 07/24/25 23:30 08/12/25 09:12 4 MG Docusate Sodium 100 mg BIDPRN PRN PO 07/24/25 23:30 08/06/25 06:49 100 MG Acetaminophen 650 mg Q6HP PRN PO 07/24/25 23:30 08/11/25 17:09 650 MG Nitroglycerin 0.4 mg Q5MINP PRN SL 07/24/25 23:30 Diagnostic Test (Pha) 1 strip Q6HR 07/25/25 12:00 08/12/25 23:26 1 STRIP Insulin Human Regular Q6HR SC 07/25/25 12:00 07/30/25 13:12 2 UNITS Dextrose 50 ml UD PRN IV 07/25/25 07:45 Albumin Human 200 ml @ 100 mls/hr Q8H IV 07/26/25 16:30 07/27/25 02:29 UNV Sodium Chloride 10 ml QSHIFT@10,22 IV 07/27/25 22:00 08/12/25 21:03 10 ML Amiodarone HCl 200 mg Q12HR PO 07/27/25 22:00 08/12/25 21:03 200 MG Midodrine 10 mg TID@0600,1200,1800 PO 07/27/25 18:00 08/12/25 17:23 10 MG Apixaban 2.5 mg BID PO 07/27/25 22:00 08/12/25 21:03 2.5 MG Pantoprazole Sodium 40 mg DAILY IV 07/28/25 10:00 08/12/25 08:32 40 MG Hydroxychloroquine Sulfate 200 mg DAILY PO 07/28/25 10:00 08/12/25 08:33 200 MG Albuterol 2.5 mg Q4HPRN PRN NEB 07/27/25 17:00 08/12/25 22:37 2.5 MG Patient Own Medication 0.25 mg BID PO 07/27/25 22:00 08/12/25 08:34 0.25 MG Bumetanide 2 mg BIDD IV 07/30/25 18:00 08/12/25 17:24 2 MG Albumin Human 100 ml @ 100 mls/hr PRN PRN IV 07/31/25 08:00 08/02/25 09:25 100 MLS/HR Allopurinol 100 mg MWF PO 08/03/25 10:00 08/10/25 09:34 100 MG Gabapentin 300 mg MWF PO 08/03/25 10:00 08/10/25 09:34 300 MG Levothyroxine Sodium 150 mcg QAM@0600 PO 08/01/25 15:45 08/12/25 06:01 150 MCG Fludrocortisone Acetate 0.1 mg BIDWM PO 08/03/25 18:00 08/12/25 17:23 0.1 MG Norepinephrine Bitartrate 250 ml @ 0.938 mls/ hr Q24H IV 08/04/25 12:30 08/04/25 12:35 7.5 MLS/HR Multivit/Ca Carb/ B Cmplx/FA/Prenat 1 tab DAILY PO 08/08/25 10:00 08/12/25 08:33 1 TAB Enteral Nutritional Formula 27.5 gm DAILY PO 08/08/25 10:00 08/11/25 08:51 27.5 GM Laboratory Results Laboratory Tests 08/11/25 04:34 Urinalysis Test 07/25/25 02:37 Urine Color Dark-brown (Yellow) Urine Clarity Ex.turbid (Clear) Urine pH 6.5 (5.0-9.0) Urine Specific [place] 1.014 (1.001-1.035) Urine Protein 2+ (Negative) H Urine Ketones Negative (Negative) Urine Blood 3+ /uL (Negative) H Urine Nitrite Negative (Negative) Urine Bilirubin Negative (Negative) Urine Urobilinogen Normal mg/dL (Negative) Urine Leukocyte Esterase 2+ /uL (Negative) Urine RBC 122 /hpf (0 - 4) Urine WBC Clumps Present /hpf (None Seen) Urine Microscopic WBC 3100 /HPF (0-5) H Urine Squamous Epithelial Cells Few /hpf (<5) Urine Bacteria Many /hpf (None Seen) H Urine Mucus Few (None Seen) Urine Glucose Normal mg/dL (Normal) Microbiology Microbiology Date/Time Source Procedure Growth Status 07/26/25 07:49 Nose MRSA Screen - Final Methicillin Resistant S.aureus Complete 07/25/25 14:42 Voided Urine Urine Culture - Final Proteus mirabilis Escherichia coli - ESBL Complete 07/24/25 19:05 Blood Blood Culture - Final NO GROWTH AFTER 5 DAYS OF INCUBATION. 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
--- NOTE | 2025-08-13 01:19 | DVHPN2 ---
Progress Note Date Seen: Aug 12, 2025 Medical Necessity Reason Pt with a Central, PICC or Fol: Yes The following are medically ne: Tijerina Catheter Reason for tijerina catheter: Strict I&O Objective vital signs Vital Sign Date Time Temp Pulse Resp B/P (MAP) Pulse Ox O2 Delivery O2 Flow Rate FiO2 08/12/25 22:43 77 12 100 08/12/25 22:37 Nasal Cannula* 2 28 08/12/25 20:43 98.7 99/54 (69) 98.7 Total Intake and Output 08/12/25 08/12/25 08/13/25 15:00 23:00 07:00 Intake Total 800 ml Output Total 200 ml Balance -200 ml 800 ml medications Current Medications Medications Dose Ordered Sig/Sravan Route Start Time Stop Time Status Last Admin Dose Admin Ondansetron HCl 4 mg Q4HP PRN IV 07/24/25 23:30 08/12/25 09:12 4 MG Docusate Sodium 100 mg BIDPRN PRN PO 07/24/25 23:30 08/06/25 06:49 100 MG Acetaminophen 650 mg Q6HP PRN PO 07/24/25 23:30 08/11/25 17:09 650 MG Nitroglycerin 0.4 mg Q5MINP PRN SL 07/24/25 23:30 Diagnostic Test (Pha) 1 strip Q6HR 07/25/25 12:00 08/12/25 23:26 1 STRIP Insulin Human Regular Q6HR SC 07/25/25 12:00 07/30/25 13:12 2 UNITS Dextrose 50 ml UD PRN IV 07/25/25 07:45 Albumin Human 200 ml @ 100 mls/hr Q8H IV 07/26/25 16:30 07/27/25 02:29 UNV Sodium Chloride 10 ml QSHIFT@10,22 IV 07/27/25 22:00 08/12/25 21:03 10 ML Amiodarone HCl 200 mg Q12HR PO 07/27/25 22:00 08/12/25 21:03 200 MG Midodrine 10 mg TID@0600,1200,1800 PO 07/27/25 18:00 08/12/25 17:23 10 MG Apixaban 2.5 mg BID PO 07/27/25 22:00 08/12/25 21:03 2.5 MG Pantoprazole Sodium 40 mg DAILY IV 07/28/25 10:00 08/12/25 08:32 40 MG Hydroxychloroquine Sulfate 200 mg DAILY PO 07/28/25 10:00 08/12/25 08:33 200 MG Albuterol 2.5 mg Q4HPRN PRN NEB 07/27/25 17:00 08/12/25 22:37 2.5 MG Patient Own Medication 0.25 mg BID PO 07/27/25 22:00 08/12/25 08:34 0.25 MG Bumetanide 2 mg BIDD IV 07/30/25 18:00 08/12/25 17:24 2 MG Albumin Human 100 ml @ 100 mls/hr PRN PRN IV 07/31/25 08:00 08/02/25 09:25 100 MLS/HR Allopurinol 100 mg MWF PO 08/03/25 10:00 08/10/25 09:34 100 MG Gabapentin 300 mg MWF PO 08/03/25 10:00 08/10/25 09:34 300 MG Levothyroxine Sodium 150 mcg QAM@0600 PO 08/01/25 15:45 08/12/25 06:01 150 MCG Fludrocortisone Acetate 0.1 mg BIDWM PO 08/03/25 18:00 08/12/25 17:23 0.1 MG Norepinephrine Bitartrate 250 ml @ 0.938 mls/ hr Q24H IV 08/04/25 12:30 08/04/25 12:35 7.5 MLS/HR Multivit/Ca Carb/ B Cmplx/FA/Prenat 1 tab DAILY PO 08/08/25 10:00 08/12/25 08:33 1 TAB Enteral Nutritional Formula 27.5 gm DAILY PO 08/08/25 10:00 08/11/25 08:51 27.5 GM laboratory and microbiology Laboratory Tests 08/11/25 04:34 Test 08/11/25 04:34 Range/Units Serum Glucose 72 L 74-106 mg/dL Microbiology Date/Time Source Procedure Growth Status 07/26/25 07:49 Nose MRSA Screen - Final Methicillin Resistant S.aureus Complete 07/25/25 14:42 Voided Urine Urine Culture - Final Proteus mirabilis Escherichia coli - ESBL Complete 07/24/25 19:05 Blood Blood Culture - Final NO GROWTH AFTER 5 DAYS OF INCUBATION. Complete Labs and/or images reviewed: Labs reviewed by me, Image(s) reviewed by me Problem List/Assessment/Plan Problem List/Assessment/Plan 74 year old female presents to the ED via EMS with SOB, LE edema, RLE thigh pain. She denies injury. She was found to be hypoxic on her normal supplemental O2. She has history of B/L pressure ulcers. hypoxia sepsis with PNA suspected PNA esrd on hd chronic anemia/anemia of ckd morbid obesity fluid overload 4+ pitting edema weakness acute hypoxic resp failure 08/01/2025 weaning down on Levophed as tolerated pt is on 2 of Levophed, plan to wean off today 08/02/2025: still in levophed, daily weaning 08/03/2025: weaning down on Levophed 08/04/2025: weaning down on Leveophed. now at 4 08/05/2025: pt is off of levophed, will transfer out of ICU if stable within 24 hours 08/06/2025: pt is downgraded to Telemetry 08/10/2025: pt to be discharged to [facility] and she changed her mind again 08/12/2025: pending d/c to home with time: >45 minutes of Plan discussed with: Patient My Orders My Orders Orders - TORRIE BUTLER DO Procedure Category Date Status Time * [place] CONS 08/12/25 Transmitted Consult Dietary Evaluation Review Comments: Nutrition Recommendation: 1) Nephro-kishore 1 tab daily 2) Consider CCHO 60gm + cardiac diet 3) Monitor PO intake, lab values, weight trend, and I/O Expected Outcomes/Goals: Lab values to improve Fu 3-5 days TORRIE BUTLER DO Aug 13, 2025 01:19
== END 2025-08-13 16:02 | disposition home health service (06) | DRG 871 ==
LOC: EDBD 18:26 → ER 18:26 → OVERFLOW 23:17 → ICU WEST 07-26 06:10 → OVERFLOW 08-06 14:41 → ICU WEST 08-06 18:37 → TELE-EAST 08-06 23:03
PROVIDERS: ADMIT Internal Medicine; ATTEND Internal Medicine
PROC: 5A09357 Assistance with Respiratory Ventilation, Less than 24 Consecutive Hours, Continuous Positive Airway Pressure (ICD-10-PCS; principal; 2025-07-24)
PROC: 5A1D70Z Performance of Urinary Filtration, Intermittent, Less than 6 Hours Per Day (ICD-10-PCS; 2025-07-25)
PROC: 5A09357 Assistance with Respiratory Ventilation, Less than 24 Consecutive Hours, Continuous Positive Airway Pressure (ICD-10-PCS; 2025-07-25)
PROC: 05H933Z Insertion of Infusion Device into Right Brachial Vein, Percutaneous Approach (ICD-10-PCS; 2025-07-26)
PROC: B54MZZA Ultrasonography of Right Upper Extremity Veins, Guidance (ICD-10-PCS; 2025-07-26)
PROC: 02HV33Z Insertion of Infusion Device into Superior Vena Cava, Percutaneous Approach (ICD-10-PCS; 2025-07-27)
PROC: B548ZZA Ultrasonography of Superior Vena Cava, Guidance (ICD-10-PCS; 2025-07-27)
PROC: 5A1D70Z Performance of Urinary Filtration, Intermittent, Less than 6 Hours Per Day (ICD-10-PCS; 2025-07-28)
PROC: 5A1D70Z Performance of Urinary Filtration, Intermittent, Less than 6 Hours Per Day (ICD-10-PCS; 2025-07-29)
PROC: 5A1D70Z Performance of Urinary Filtration, Intermittent, Less than 6 Hours Per Day (ICD-10-PCS; 2025-07-31)
PROC: 5A1D70Z Performance of Urinary Filtration, Intermittent, Less than 6 Hours Per Day (ICD-10-PCS; 2025-08-02)
PROC: 5A1D70Z Performance of Urinary Filtration, Intermittent, Less than 6 Hours Per Day (ICD-10-PCS; 2025-08-03)
PROC: 5A1D70Z Performance of Urinary Filtration, Intermittent, Less than 6 Hours Per Day (ICD-10-PCS; 2025-08-05)
PROC: 5A1D70Z Performance of Urinary Filtration, Intermittent, Less than 6 Hours Per Day (ICD-10-PCS; 2025-08-07)
PROC: 5A1D70Z Performance of Urinary Filtration, Intermittent, Less than 6 Hours Per Day (ICD-10-PCS; 2025-08-08)
PROC: 5A1D70Z Performance of Urinary Filtration, Intermittent, Less than 6 Hours Per Day (ICD-10-PCS; 2025-08-10)
DX: A41.50 Gram-negative sepsis, unspecified (principal); I50.41 Acute combined systolic (congestive) and diastolic (congestive) heart failure; J15.69 Pneumonia due to other Gram-negative bacteria; J96.21 Acute and chronic respiratory failure with hypoxia; R65.21 Severe sepsis with septic shock; N18.6 End stage renal disease; J15.9 Unspecified bacterial pneumonia; I13.2 Hypertensive heart and chronic kidney disease with heart failure and with stage 5 chronic kidney disease, or end stage renal disease; L89.899 Pressure ulcer of other site, unspecified stage; J44.0 Chronic obstructive pulmonary disease with (acute) lower respiratory infection; N17.9 Acute kidney failure, unspecified; Z99.2 Dependence on renal dialysis; B96.20 Unspecified Escherichia coli [E. coli] as the cause of diseases classified elsewhere; D63.1 Anemia in chronic kidney disease; Z68.37 Body mass index [BMI] 37.0-37.9, adult; E11.22 Type 2 diabetes mellitus with diabetic chronic kidney disease; Z99.81 Dependence on supplemental oxygen; I48.91 Unspecified atrial fibrillation; J44.9 Chronic obstructive pulmonary disease, unspecified; E66.01 Morbid (severe) obesity due to excess calories; Z74.01 Bed confinement status; Z82.5 Family history of asthma and other chronic lower respiratory diseases; Z82.49 Family history of ischemic heart disease and other diseases of the circulatory system; Z82.3 Family history of stroke; Z91.048 Other nonmedicinal substance allergy status; Z88.2 Allergy status to sulfonamides; Z87.11 Personal history of peptic ulcer disease; Z79.899 Other long term (current) drug therapy
CPT/HCPCS: 36415; 36569; 36600; 71045; 76937; 80048; 80053; 81001; 82728; 82805; 82962; 83540; 83550; 83605; 83735; 83880; 84100; 84439; 84443; 84484; 85014; 85018; 85025; 85610; 85730; 87040; 87081; 87086; 87088; 87186; 87340; 90935; 93970; 93971; 94640; 96365; 97163; G0378; J1642; J2185; J2405; J2470; P9047

== ENCOUNTER 2025-08-24 12:22 | Inpatient (IN) | payer MEDICARE, MEDICAID ==
[2025-08-24] VITALS (24 sets, daily range): BP systolic 99–139; BP diastolic 28–73; PULSE 79–100; RESP 12–47; TEMP 97.7–98.3; O2SAT 97–100
[~2025-08-24] VITALS: Ht 165.1 cm; Wt 124.5 kg
[~2025-08-24 12:22] MED LIST changes: -AMLO1TAB22 PO; +AZIT-185 PO; -CILO100T3 PO; -FURO40TA4 PO; -LOPELIQ6 PO; -MECL-126 PO; -METH-1182 PO; -PANT1INJ3 IV; -SOTA80TA PO; -SPIR50TA5 PO
--- NOTE | 2025-08-24 12:57 | ED.PDOC ---
History of Present Illness HPI Comments 74 y.o female with PMHx of ESRD, HTN,CHF and COPD, presents to the ED via EMS for a chief complaint of generalized weakness x 1 week. EMS is bedridden, has missed dialysis for the past week and has not been taking care of herself. Patient reports feeling unwell with no pain present. EMS noted a BG of 60 and ga ve Glucagon 1mg. Additionally, patient is on 3 L of oxygen NC at home. SPO2 read 88% on room air. Chief Complaint: General Weakness Time Seen by MD: 12:30 Reviewed Notes: Nurses Notes, Engineering Mechanic Notes, Medications, Allergies Allergies: Coded Allergies: Zinc Oxide (Verified Allergy, Mild, 03/07/25) Sulfa Antibiotics (Verified Allergy, Unknown, 01/16/22) Home Meds Active Scripts Azithromycin (ZITHROMAX TABLET) 250 Mg Tb, 250 MG PO DAILY for 5 Days, #6 TAB take 2 tabs on first day, then 1 tab daily x 4 days Prov:TORRIE BUTLER DO 08/10/25 Prednisone (Prednisone) 20 Mg Tab, 20 MG PO BID for 5 Days, #10 TAB Prov:VÍCTOR HAMILTON SUPERVISOR ASSEMBLY DEPARTMENT 01/20/22 Reported Medications Amiodarone HCl (Amiodarone HCl) 200 Mg Tab, 1 TAB PO BID 03/20/25 Levothyroxine Sodium (Levothyroxine Sodium) 137 Mcg Tab, 1 TAB PO DAILY 03/20/25 Ropinirole Hydrochloride (Ropinirole Hcl) 0.25 Mg Tab, 1 TAB PO BID for 90 Days, #180 02/26/25 Midodrine Hcl (Midodrine Hcl) 10 Mg Tab, 1 TAB PO BID for 90 Days, #180 02/26/25 Potassium Chloride (Potassium Chloride ER) 20 Meq Tab, 1 TAB PO BID for 90 Days, #180 02/26/25 Fluticasone-Salmeterol (Fluticasone Propionate/SA 500-50 Mcg/Dose) 1 Aer Aer, 1 PUFF PO BID for 30 Days, #60 02/26/25 Lactulose (Lactulose) 10 Gm/15 Ml Yoselyn, 15 ML PO DAILY for 30 Days, #450 02/26/25 Gabapentin (Gabapentin) 300 Mg Cap, 300 MG PO BID 11/08/24 Pantoprazole Sodium Sesquihydr (Pantoprazole Sodium) 40 Mg Tab, 1 TAB PO DAILY 11/08/24 Atorvastatin Calcium (ATORVASTATIN CALCIUM) 20 Mg Tab, 1 TAB PO DAILY 11/08/24 Bumetanide (Bumetanide) 2 Mg Tab, 1 TAB PO BID 11/08/24 Apixaban Base (ELIQUIS) 2.5 Mg Tab, 1 TAB PO BID 11/08/24 Clobetasol Propionate (Clobetasol Propionate) 0.05 % Oin, 1 APPLIC TOP BID, #15 GRAMS 01/17/22 Hydroxychloroquine Sulfate (PLAQUENIL) 200 Mg Tab, 1 TAB PO DAILY, #180 TAB 3 Refills 01/17/22 Fluticasone-Salmeterol (Advair Diskus 500/50) 1 Puff Ih, 1 PUFF INH BID, #1 INHALER 5 Refills 01/17/22 Albuterol Sulfate (VENTOLIN MDI) 90 Mcg Ih, 90 MCG IN Q6HP for 30 Days, MCG 01/17/22 Allopurinol (Allopurinol) 100 Mg Tab, 100 MG PO DAILY for 30 Days, MG 01/17/22 Meclizine HCl (Meclizine 25) 25 Mg Tab, 25 MG PO BID, TAB 01/17/22 Information Source: Patient, Emergency Med Personnel Mode of Arrival: EMS Severity: Moderate Timing: Weeks (1) Duration: Since onset Past Medical History PAST MEDICAL HISTORY: AFIB, CHF, CKF, COPD, DM, High Lipids, HTN Surgical History: Denies all surgeries NOODLE MAKER History: No Pertinent NOODLE MAKER History Family History Family History: Reviewed,noncontributory to illness Social History Smoker: Non-Smoker Alcohol: Denies ETOH Use Drugs: Denies Drug Use Lives In: Other Constitutional: reports: weakness; denies: chills, diaphoresis, fatigue, fever, malaise, sweats, others EENTM: denies: blurred vision, double vision, ear bleeding, ear discharge, ear drainage, ear pain, ear ringing, eye pain, eye redness, hearing loss, mouth pain, mouth swelling, nasal discharge, nose bleeding, nose congestion, nose pain, photophobia, tearing, throat pain, throat swelling, voice changes, others Respiratory: denies: cough, hemoptysis, orthopnea, SOB at rest, shortness of breath, SOB with excertion, stridor, wheezing, others Cardiovascular: denies: chest pain, dizzy spells, diaphoresis, Dyspnea on exertion, edema, irregular heart beat, left arm pain, lightheadedness, palpitations, PND, syncope, others Gastrointestinal: denies: abdomen distended, abdominal pain, blood streaked bowels, constipated, diarrhea, dysphagia, difficulty swallowing, hematemesis, melena, nausea, poor appetite, poor fluid intake, rectal bleeding, rectal pain, vomiting, others Genitourinary: denies: abnormal vagina bleeding, burning, dyspareunia, dysuria, flank pain, frequency, hematuria, incontinence, pain, , vagina dischar ge, urgency, others Neurological: denies: dizziness, fainting, headache, left sided numbness, left sided weakness, numbness, paresthesia, pre-existing deficit, right sided numbness, right sided weakness, seizure, speech problems, tingling, tremors, weakness, others Musculoskeletal: denies: back pain, gout, joint pain, joint swelling, muscle pain, muscle stiffness, neck pain, others Integumetry: denies: bruises, change in color, change in hair/nails, dryness, laceration, lesions, lumps, rash, wounds, others Allergic/Immunocompromised: denies: Difficulty Healing, Frequent Infections, Hives, Itching, others Hematologic/Lymphatic: denies: anemia, blood clots, easy bleeding, easy bruising, swollen glands, others Endocrine: denies: excessive hunger, excessive sweating, excessive thirst, excessive urination, flushing, intolerance to cold, intolerance to heat, unexplained weight gain, unexplained weight loss, others Psychiatric: denies: anxiety, bipolar disorder, depression, hopeless, panic disorder, schizophrenia, sleepless, suicidal, others All Other Systems: Reviewed and Negative Physical Exam General Appearance: Moderate Distress HEENT: Normal ENT Inspection, Pharynx Normal, TMs Normal Neck: Full Range of Motion, Non-Tender, Normal, Normal Inspection Respiratory: Chest Non-Tender, Lungs Clear, No Accessory Muscle Use, No Respiratory Distress, Normal Breath Sounds Cardiovascular: No Edema, No JVD, No Murmur, No Gallop, Normal Peripheral Pulses, Regular Rate/Rhythm Breast Exam: Deferred Gastrointestinal: No Organomegaly, Non Tender, No Pulsatile Mass, Normal Bowel Sounds, Soft Genitalia: Deferred Pelvic: Deferred Rectal: Deferred Extremities: No calf tenderness, No pedal edema Musculoskeletal : Apperance: Normal Neurologic: Alert Cerebellar Function: NOT DONE Reflexes: NOT DONE Skin: Normal Color Peripheral Pulses: 3+ Radial (R), 3+ Radial (L) Lymphatic: No Adenopathy Was a procedure done? Was a procedure done?: No Differential Dx Considerations may include: Electrolyte imbalance, Dehydration, Viral infection X-Ray, Labs, Meds, VS Vital Signs Date Time Temp Pulse Resp B/P (MAP) Pulse Ox O2 Delivery O2 Flow Rate FiO2 08/24/25 14:55 97.5 81 18 107/49 (68) 100 97.5 08/24/25 13:12 80 16 100 Nasal Cannula* 3 32 08/24/25 13:12 97.5 84 16 93/35 (54) 100 97.5 08/24/25 12:45 98.2 81 16 106/45 98 98.2 Lab Test 08/24/25 13:29 08/24/25 13:03 Range/Units White Blood Count 8.3 4.4-10.8 10^3/uL Red Blood Count 2.41 L 4.0-5.20 10^6/uL Hemoglobin 6.8 *L 12.2-16.2 g/dL Hematocrit 20.8 L 36.0-46.0 % Mean Corpuscular Volume 86.2 80.0-100.0 fL Mean Corpuscular Hemoglobin 28.2 28.0-32.0 pg Mean Corpuscular Hemoglobin Concent 32.7 32.0-36.0 g/dL Red Cell Distribution Width 20.8 H 11.8-14.3 % Platelet Count 214 140-450 10^3/uL Mean Platelet Volume 6.9 6.9-10.8 fL Neutrophils (%) (Auto) 80.0 37.0-80.0 % Lymphocytes (%) (Auto) 12.9 10.0-50.0 % Monocytes (%) (Auto) 5.6 0.0-12.0 % Eosinophils (%) (Auto) 0.9 0.0-7.0 % Basophils (%) (Auto) 0.6 0.0-2.0 % Neutrophils # (Auto) 6.6 1.6-8.6 10 ^3/uL Lymphocytes # (Auto) 1.1 0.4-5.4 10 ^3/uL Monocytes # (Auto) 0.5 0-1.3 10 ^3/uL Eosinophils # (Auto) 0.1 0-0.8 10 ^3/uL Basophils # (Auto) 0.1 0-0.2 10 ^3/uL Nucleated Red Blood Cells 0.1 % Platelet Estimate Adequate Anisocytosis (manual) Moderate Prothrombin Time 15.2 H 9.3-11.8 sec Prothrombin Time INR 1.49 H 0.9-1.15 Activated Partial Thromboplast Time 40.5 H 24.5-34.5 SEC Sodium Level 132 L 136-145 mmol/L Potassium Level 4.1 3.5-5.1 mmol/L Chloride Level 95 L 98-107 mmol/L Carbon Dioxide Level 21 20-31 mmol/L Anion Gap 16 H 5-15 Blood Urea Nitrogen 31 H 9-23 mg/dL Creatinine 4.22 H 0.550-1.02 mg/dL Glomerular Filtration Rate Calc 10 >90 mL/min BUN/Creatinine Ratio 7.3 L 10.0-20.0 Serum Glucose 78 74-106 mg/dL Hemoglobin A1c < 3.8 <5.7 % A1C Lactic Acid Level 0.9 0.4-2.0 mmol/L Calcium Level 8.7 8.7-10.4 mg/dL Phosphorus Level 5.9 H 2.4-5.1 mg/dL Magnesium Level 1.6 1.6-2.6 mg/dL Troponin I High Sensitivity 60 *H </=34 ng/L Triglycerides Level 73 < 150 mg/dL Cholesterol Level 65 < 200 mg/dL LDL Cholesterol 20 < 100 mg/dL HDL Cholesterol 20 L 40-59 mg/dL Lipase 15 12-53 U/L Vitamin B12 Level 1033 H 211-911 pg/mL Vitamin D 25-Hydroxy 62.2 30.0-100 ng/mL Thyroid Stimulating Hormone (TSH) 1.84 0.55-4.78 uIU/mL Hepatitis B Surface Antigen Negative Negative POC Glucose 90 70-106 mg/dl Current Medications Medications (Trade) Dose Ordered Sig/Sravan Route Start Time Stop Time Status Last Admin Norepinephrine Bitartrate 250 ml @ 3.75 mls/hr Q24H IV 08/24/25 13:30 08/24/25 16:46 Heparin Sodium (Porcine) 2,000 units SAMANTHA ONCE XX 08/24/25 13:45 08/24/25 14:34 DC 08/24/25 17:32 Sodium Chloride 2,000 ml ONCE ONCE XX 08/24/25 13:45 08/24/25 14:33 DC 08/24/25 17:05 Patient alert. Bed ridden. Increased anion gap. Vitals stable. Kidney function elevated. Has not had dialysis for a long time. Spoke with her laundry tub maker. Dialysis. Continue monitoring. Time of 1ST Reevaluation: 12:57 Reevaluation 1ST: Unchanged Patient Education/Counseling: Diagnosis, Treatment, Prognosis Family Education/Counseling: No Family Present SEPSIS Sepsis Screen Date sepsis recognized/suspect: Aug 24, 2025 Time Sepsis recognized/suspect: 8 Recent Procedure: No On Antibiotic Therapy: No Respiratory Rate >20: No Heart Rate >90: No Temp<36 C (96.8 F) or >38.3 C: No SBP <90 or MAP <65 mmHG: No New Acute Mental Status Change: No Is the patient on CPAP, BIPAP,: No Physician Orders Chest Portable (08/24/25 13:18) Urinalysis (08/24/25 13:18) Norepinephrine 8 Mg/250ml Kit (Levophed) (08/24/25 13:30) Blood Culture (08/24/25 13:18) Dialysis Nursing Message (08/24/25 13:44) Document Fluid Input And Outpu (08/24/25 13:44) Communication Order (08/24/25 13:53) Hemodialysis Orders (08/25/25 07:00) Dialysis Nursing Message (08/25/25 07:00) Heparin Sodium (Porcine) (08/25/25 07:00) Sodium Chloride 0.9% (08/25/25 07:00) Document Fluid Input And Outpu (08/25/25 07:00) Epoetin Simone-Epbx (Retacrit) (08/25/25 21:00) Epoetin Simone-Epbx (Retacrit) (08/24/25 21:00) Hemodialysis Orders (08/24/25 14:23) Vital Signs Date Time Temp Pulse Resp B/P (MAP) Pulse Ox O2 Delivery O2 Flow Rate FiO2 08/24/25 14:55 97.5 81 18 107/49 (68) 100 97.5 08/24/25 13:12 80 16 100 Nasal Cannula* 3 32 08/24/25 13:12 97.5 84 16 93/35 (54) 100 97.5 08/24/25 12:45 98.2 81 16 106/45 98 98.2 Laboratory Tests Test 08/24/25 13:29 Lactic Acid Level 0.9 mmol/L (0.4-2.0) White Blood Count 8.3 10^3/uL (4.4-10.8) Medications Medications Dose Ordered Sig/Sravan Route Start Time Stop Time Status Last Admin Dose Admin Heparin Sodium (Porcine) 2,000 units SAMANTHA ONCE XX 08/24/25 13:45 08/24/25 14:34 DC 08/24/25 17:32 Norepinephrine Bitartrate 250 ml @ 3.75 mls/hr Q24H IV 08/24/25 13:30 08/24/25 16:46 Sodium Chloride 2,000 ml ONCE ONCE XX 08/24/25 13:45 08/24/25 14:33 DC 08/24/25 17:05 Departure 1 Departure Time of Disposition: 17:47 Impression: Primary Impression: Acute on chronic diastolic CHF (congestive heart failure) Additional Impressions: Chronic kidney disease on chronic dialysis Severe anemia Disposition: ADMITTED INPATIENT Admit to: Med Surg Condition: Guarded Critical Care Note Critical Care Time?: Yes (90 min-critical care time only) Stability Stability form required: No I personally scribed for TJ DICKSON MD ([email or web address]) on 08/24/25 at 12:57. Electronically submitted by Tahira Khan ([facility]). TJ DICKSON MD Aug 24, 2025 12:57
--- NOTE | 2025-08-24 13:51 | DVHINCON2 ---
Date of service: Aug 24, [address] El. Reason for Consultation End-stage renal disease History of Present Illness 74-year-old patient with significant history of end-stage renal disease on hemodialysis TTS who has missed her dialysis treatment since August 12 patient stated that she refused to go to dialysis she was at home and started experiencing hypoglycemia in addition to nausea and vomiting after eating food as well as worsening generalized weakness and buttocks pain from lying in bed for so long. Patient stated that she has not been feeling well in the blood glucose by EMS was 60 she received glucagon 1 mg. She was also noticed to be h ypotensive intermittently and requiring 3 L of oxygen to keep pulse oximetry more than 90%. Patient denies abdominal pain otherwise denies diarrhea. Other past medical history include obesity, history of alcoholism in remission, COPD She goes to [facility] dialysis . Past Medical History COPD, hypertension, end-stage renal disease Past Surgical History Placement of HD dialysis catheter, drainage of pelvic abscess Allergies: Coded Allergies: Zinc Oxide (Verified Allergy, Mild, 03/07/25) Sulfa Antibiotics (Verified Allergy, Unknown, 01/16/22) Home Meds Active Scripts Azithromycin (ZITHROMAX TABLET) 250 Mg Tb, 250 MG PO DAILY for 5 Days, #6 TAB take 2 tabs on first day, then 1 tab daily x 4 days Prov:TORRIE BUTLER DO 08/10/25 Prednisone (Prednisone) 20 Mg Tab, 20 MG PO BID for 5 Days, #10 TAB Prov:VÍCTOR HAMILTON COMMODITIES REQUIREMENTS ANALYST 01/20/22 Reported Medications Amiodarone HCl (Amiodarone HCl) 200 Mg Tab, 1 TAB PO BID 03/20/25 Levothyroxine Sodium (Levothyroxine Sodium) 137 Mcg Tab, 1 TAB PO DAILY 03/20/25 Ropinirole Hydrochloride (Ropinirole Hcl) 0.25 Mg Tab, 1 TAB PO BID for 90 Days, #180 02/26/25 Midodrine Hcl (Midodrine Hcl) 10 Mg Tab, 1 TAB PO BID for 90 Days, #180 02/26/25 Potassium Chloride (Potassium Chloride ER) 20 Meq Tab, 1 TAB PO BID for 90 Days, #180 02/26/25 Fluticasone-Salmeterol (Fluticasone Propionate/SA 500-50 Mcg/Dose) 1 Aer Aer, 1 PUFF PO BID for 30 Days, #60 02/26/25 Lactulose (Lactulose) 10 Gm/15 Ml Yoselyn, 15 ML PO DAILY for 30 Days, #450 02/26/25 Gabapentin (Gabapentin) 300 Mg Cap, 300 MG PO BID 11/08/24 Pantoprazole Sodium Sesquihydr (Pantoprazole Sodium) 40 Mg Tab, 1 TAB PO DAILY 11/08/24 Atorvastatin Calcium (ATORVASTATIN CALCIUM) 20 Mg Tab, 1 TAB PO DAILY 11/08/24 Bumetanide (Bumetanide) 2 Mg Tab, 1 TAB PO BID 11/08/24 Apixaban Base (ELIQUIS) 2.5 Mg Tab, 1 TAB PO BID 11/08/24 Clobetasol Propionate (Clobetasol Propionate) 0.05 % Oin, 1 APPLIC TOP BID, #15 GRAMS 01/17/22 Hydroxychloroquine Sulfate (PLAQUENIL) 200 Mg Tab, 1 TAB PO DAILY, #180 TAB 3 Refills 01/17/22 Fluticasone-Salmeterol (Advair Diskus 500/50) 1 Puff Ih, 1 PUFF INH BID, #1 INHALER 5 Refills 01/17/22 Albuterol Sulfate (VENTOLIN MDI) 90 Mcg Ih, 90 MCG IN Q6HP for 30 Days, MCG 01/17/22 Allopurinol (Allopurinol) 100 Mg Tab, 100 MG PO DAILY for 30 Days, MG 01/17/22 Meclizine HCl (Meclizine 25) 25 Mg Tab, 25 MG PO BID, TAB 01/17/22 Current Medications Current Medications Medications (Trade) Dose Ordered Sig/Sravan Route PRN Reason Start Time Stop Time Status Last Admin Norepinephrine Bitartrate 250 ml @ 3.75 mls/hr Q24H IV 08/24/25 13:30 Family History: Cerebrovascular accident (CVA) G8 MOTHER Chronic obstructive pulmonary disease FH: CHF (congestive heart failure) G8 MOTHER Hypertension G8 MOTHER Family History Patient lives with a daughter Social History Denies smoking alcohol or drug abuse. Review of Systems HEENT: Oral mucosa dry Neck no JVD Cardiovascular: Denies for chest pain denies orthopnea or PND Respiratory: Shortness of breath Gastrointestinal: Positive for nausea vomiting Musculoskeletal: Positive for edema Neurological: Positive for generalized weakness Dermatological: Denies any rash The rest of the review of systems were reviewed pertinent positives and pertinent negatives are as per HPI up to 12 points review of systems H&P Exam Vital Signs/I&O Vital Sign Date Time Temp Pulse Resp B/P (MAP) Pulse Ox O2 Delivery O2 Flow Rate FiO2 08/24/25 13:12 80 16 100 Nasal Cannula* 3 32 08/24/25 13:12 97.5 93/35 (54) 97.5 Physical Exam HEENT: Dry oral mucosa Pulmonary: Diminished auscultation bilaterally Cardiovascular S1-S2, no S3 or S4 Abdomen: Bowel sounds positive, soft no rebound tenderness Skin: No rash Neurological: Alert, oriented, no focal weakness Extremities: 1+ pitting edema lower extremity Dialysis access: Right upper chest tunneled line with no signs of complications Labs/Diagnostic Data Labs/Diagnostic Data Laboratory Tests Test 08/24/25 13:29 08/24/25 13:03 Range/Units White Blood Count 8.3 4.4-10.8 10^3/uL Red Blood Count 2.41 L 4.0-5.20 10^6/uL Hemoglobin 6.8 *L 12.2-16.2 g/dL Hematocrit 20.8 L 36.0-46.0 % Mean Corpuscular Volume 86.2 80.0-100.0 fL Mean Corpuscular Hemoglobin 28.2 28.0-32.0 pg Mean Corpuscular Hemoglobin Concent 32.7 32.0-36.0 g/dL Red Cell Distribution Width 20.8 H 11.8-14.3 % Platelet Count 214 140-450 10^3/uL Mean Platelet Volume 6.9 6.9-10.8 fL Neutrophils (%) (Auto) 80.0 37.0-80.0 % Lymphocytes (%) (Auto) 12.9 10.0-50.0 % Monocytes (%) (Auto) 5.6 0.0-12.0 % Eosinophils (%) (Auto) 0.9 0.0-7.0 % Basophils (%) (Auto) 0.6 0.0-2.0 % Neutrophils # (Auto) 6.6 1.6-8.6 10 ^3/uL Lymphocytes # (Auto) 1.1 0.4-5.4 10 ^3/uL Monocytes # (Auto) 0.5 0-1.3 10 ^3/uL Eosinophils # (Auto) 0.1 0-0.8 10 ^3/uL Basophils # (Auto) 0.1 0-0.2 10 ^3/uL Nucleated Red Blood Cells 0.1 % Platelet Estimate Adequate Anisocytosis (manual) Moderate Sodium Level 132 L 136-145 mmol/L Potassium Level 4.1 3.5-5.1 mmol/L Chloride Level 95 L 98-107 mmol/L Carbon Dioxide Level 21 20-31 mmol/L Anion Gap 16 H 5-15 Blood Urea Nitrogen 31 H 9-23 mg/dL Creatinine 4.22 H 0.550-1.02 mg/dL Glomerular Filtration Rate Calc 10 >90 mL/min BUN/Creatinine Ratio 7.3 L 10.0-20.0 Serum Glucose 78 74-106 mg/dL Lactic Acid Level 0.9 0.4-2.0 mmol/L Calcium Level 8.7 8.7-10.4 mg/dL Troponin I High Sensitivity 60 *H </=34 ng/L POC Glucose 90 70-106 mg/dl Chest x-ray no focal infiltrate Assessment Assessment: 1. End-stage renal disease on hemodialysis TTS. 2. Hypotension rule out septic shock 3. Nausea and vomiting 4. Anemia 5. Acute hypoxic respiratory failure 6. Bedridden status 7. Protein malnutrition 8. Generalized weakness Plan: Dialysis today and tomorrow Pressor support with Levophed Consider placement of central line Albumin p.r.n. Transfuse one PRBC Broad-spectrum antibiotics Tyrone for goal hemoglobin 10-11 Midodrine t.i.d. Pancultures rule out sepsis Thank you very much for allowing us to participate in the care of this patient please contact if you have any questions. Plan discussed with: Patient AFTAB KENDALL MD Aug 24, 2025 13:51
[2025-08-24 13:57] LABS: Hematocrit 20.8 % (36.0-46.0); Mean Corpuscular Hemoglobin 28.2 pg (28.0-32.0); Mean Corpuscular Volume 86.2 fL (80.0-100.0); Nucleated Red Blood Cells % 0.1 %
[2025-08-24 13:59] LABS: Hemoglobin 6.8 g/dL (12.2-16.2)
--- NOTE | 2025-08-24 14:07 | DVH ---
CHEST RADIOGRAPH Indication: sob Technique: Single frontal view of the chest was obtained Comparison: XY CHEST XRAY 1 VIEW on DOS: 07/30/25, FINDINGS: Right IJ Perma catheter tip projects over the SVC. The cardiac silhouette is enlarged. The lungs demonstrate perihilar airspace opacities. Bibasilar airspace opacities, [id number] The pulmonary vasculature is prominent. Small bilateral pleural effusions, [id number]. Aortic atherosclerotic disease. There is no pneumothorax. IMPRESSION: As above
[2025-08-24 14:08] LABS: Potassium 4.1 mmol/L (3.5-5.1)
[2025-08-24 14:09] LABS: Anion Gap 16 (5-15); Carbon Dioxide 21 mmol/L (20-31)
[2025-08-24 14:11] LABS: Anisocytosis Moderate
[2025-08-24 14:14] LABS: BUN/Creatinine Ratio 7.3 (10.0-20.0); Glucose 78 mg/dL (74-106)
[2025-08-24 14:15] LABS: Blood Urea Nitrogen 31 mg/dL (9-23); Calcium 8.7 mg/dL (8.7-10.4); Chloride 95 mmol/L (98-107); Sodium 132 mmol/L (136-145)
--- NOTE | 2025-08-24 15:06 | DVHHPRES ---
History of Present Illness Resident Creating Document: AMY EDMOND RESIDENT History of Present Illness Zoila Gold is a 74 year old female who presents to ED with chief complaint of nausea, nonbloody vomiting with food content emesis, dry cough and generalized weakness which started approximately one week ago. Patient was recently discharged from [facility] one week ago due to accidental removal of her hemodialysis tunneled catheter when she removed her shirt, presenting bleeding from surgical site. When she was discharged from [facility] per patient there was no chair time appointment and all her medications were not sent out (she has been off her medication for this past week). Denies any other associated symptoms including hematuria, hematemesis, hematochezia, chest pain and dyspnea. Past medical history: Hypertension, dyslipidemia, persistent atrial fibrillation (chads Vasc 5) currently on apixaban except for the past week, diastolic CHF (HFpEF, LVEF 50%) with RVSP 50 mmHg and mild-mod TR, COPD/asthma on home oxygen (2.5-3 L/min), end-stage renal disease on hemodialysis session for the past six months, skin cancer status postop were no recurrence, bed-bound for the past five years after ankle fracture (does not recall if he had surgery) Surgical history: Hemodialysis catheter placement, abscess in abdomen status post failed drainage (per patient it resolved by itself), right knee surgery Family history: Sister had unknown cancer, sister also had heart disease Social history: Lives in [place] with daughter (next of kin). Ex tobacco abuse 40 pack-year history of smoking) quit 20 years ago. 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 Denies current tobacco and other drug abuse. Allergies: Sulfa drugs, zinc oxide Home medication: Does not recall. Per EMR amiodarone, levothyroxine, allopurinol, midodrine, potassium chloride, fluticasone salmeterol, lactulose, gabapentin, pantoprazole, atorvastatin, bumetanide, apixaban, clobetasol, hydroxychloroquine, albuterol, allopurinol, meclizine. Patient seen and examined at bedside. Currently has no new complaints. With intermittent requirement of IV vasopressors. Admit the patient for further evaluation. Past Medical History Per HPI Past Surgical History Per HPI Family History Per HPI Past Social History Per HPI Review of Systems Review of Systems Per H. Allergies: Coded Allergies: Zinc Oxide (Verified Allergy, Mild, 03/07/25) Sulfa Antibiotics (Verified Allergy, Unknown, 01/16/22) Medications Current Medications Medications Dose Ordered Sig/Sravan Route Start Time Stop Time Status Last Admin Dose Admin Norepinephrine Bitartrate 250 ml @ 3.75 mls/hr Q24H IV 08/24/25 13:30 Acetaminophen 325 mg Q4HP PRN PO 08/24/25 15:15 UNV Exam Vital Signs Vital Signs Date Time Temp Pulse Resp B/P (MAP) Pulse Ox O2 Delivery O2 Flow Rate FiO2 08/24/25 14:55 97.5 81 18 107/49 (68) 100 97.5 08/24/25 13:12 Nasal Cannula* 3 32 Exam Patient lying in bed, in no acute distress General: Lucid, afebrile, mucosae are dry, pale conjunctivae Cardiovascular: Normal S1 and S2. Holosystolic murmur best heard in left lower parasternal border intensity 3/6. No gallops or rubs Respiratory: Normal ventilation mechanics. Clear lung sounds on auscultation Abdomen: Soft, nontender, no organomegaly, normal bowel sounds MSK/skin: Mobilizes 4 limbs. Skin is dry and warm. Infrapatellar bilateral pitting edema. Decubitus sacral wound stage I-two present on admission. Tunneled catheter in right subclavian area with no signs of erythema or infection. Neurological: Oriented in 3 spheres. No motor no sensitive deficits. Pupils are isocoric and reactive Labs/Xrays Labs Test 08/24/25 13:29 08/24/25 13:03 Range/Units White Blood Count 8.3 4.4-10.8 10^3/uL Red Blood Count 2.41 L 4.0-5.20 10^6/uL Hemoglobin 6.8 *L 12.2-16.2 g/dL Hematocrit 20.8 L 36.0-46.0 % Mean Corpuscular Volume 86.2 80.0-100.0 fL Mean Corpuscular Hemoglobin 28.2 28.0-32.0 pg Mean Corpuscular Hemoglobin Concent 32.7 32.0-36.0 g/dL Red Cell Distribution Width 20.8 H 11.8-14.3 % Platelet Count 214 140-450 10^3/uL Mean Platelet Volume 6.9 6.9-10.8 fL Neutrophils (%) (Auto) 80.0 37.0-80.0 % Lymphocytes (%) (Auto) 12.9 10.0-50.0 % Monocytes (%) (Auto) 5.6 0.0-12.0 % Eosinophils (%) (Auto) 0.9 0.0-7.0 % Basophils (%) (Auto) 0.6 0.0-2.0 % Neutrophils # (Auto) 6.6 1.6-8.6 10 ^3/uL Lymphocytes # (Auto) 1.1 0.4-5.4 10 ^3/uL Monocytes # (Auto) 0.5 0-1.3 10 ^3/uL Eosinophils # (Auto) 0.1 0-0.8 10 ^3/uL Basophils # (Auto) 0.1 0-0.2 10 ^3/uL Nucleated Red Blood Cells 0.1 % Platelet Estimate Adequate Anisocytosis (manual) Moderate Sodium Level 132 L 136-145 mmol/L Potassium Level 4.1 3.5-5.1 mmol/L Chloride Level 95 L 98-107 mmol/L Carbon Dioxide Level 21 20-31 mmol/L Anion Gap 16 H 5-15 Blood Urea Nitrogen 31 H 9-23 mg/dL Creatinine 4.22 H 0.550-1.02 mg/dL Glomerular Filtration Rate Calc 10 >90 mL/min BUN/Creatinine Ratio 7.3 L 10.0-20.0 Serum Glucose 78 74-106 mg/dL Lactic Acid Level 0.9 0.4-2.0 mmol/L Calcium Level 8.7 8.7-10.4 mg/dL Troponin I High Sensitivity 60 *H </=34 ng/L POC Glucose 90 70-106 mg/dl SEPSIS Sepsis Screen Date sepsis recognized/suspect: Aug 24, 2025 Time Sepsis recognized/suspect: 1312 Recent Procedure: No On Antibiotic Therapy: No Respiratory Rate >20: No Heart Rate >90: No Temp<36 C (96.8 F) or >38.3 C: No SBP <90 or MAP <65 mmHG: No New Acute Mental Status Change: No Is the patient on CPAP, BIPAP,: No Physician Orders Chest Portable (08/24/25 13:18) Urinalysis (08/24/25 13:18) Norepinephrine 8 Mg/250ml Kit (Levophed) (08/24/25 13:30) Blood Culture (08/24/25 13:18) *[facility] (08/24/25 13:18) Dialysis Nursing Message (08/24/25 13:44) Document Fluid Input And Outpu (08/24/25 13:44) Communication Order (08/24/25 13:53) Hemodialysis Orders (08/25/25 07:00) Dialysis Nursing Message (08/25/25 07:00) Heparin Sodium (Porcine) (08/25/25 07:00) Sodium Chloride 0.9% (08/25/25 07:00) Document Fluid Input And Outpu (08/25/25 07:00) Epoetin Simone-Epbx (Retacrit) (08/25/25 21:00) Epoetin Simone-Epbx (Retacrit) (08/24/25 21:00) Hepatitis B Surface Antigen (08/24/25 14:16) Hemodialysis Orders (08/24/25 14:23) Packedcells -Active Bleeding (08/24/25 14:24) Type And Screen (08/24/25 14:24) Admit (08/24/25 15:01) Code Status (08/24/25 15:01) Acetaminophen Tablet (Tylenol Tablet) (08/24/25 15:15) Npo (Nothing By Mouth) Diet (08/24/25 Dinner) Echo 2d Mode Cardiac Dop (08/24/25 15:01) Morphine Sulfate Injection (08/24/25 15:15) Nitroglycerin Sublingual (Ntrostat Subli (08/24/25 15:15) Morphine Sulfate Injection (08/24/25 15:15) Oxygen By Nasal Cannula (08/24/25 15:01) Stat Ekg For Chest Pain (08/24/25 15:01) Notify Of Changes From Base (08/24/25 15:01) Casing Man For 24 Hours (08/24/25 15:01) Emergency Dysrhythmia Protocol (08/24/25 15:01) Rhythm Strips Once Every Shift (08/24/25 15:01) Vitamin D, 25-Hydroxy (08/24/25 15:01) Vitamin B12 (08/24/25 15:01) Urinalysis (08/24/25 15:01) Thyroid Stimulating Hormone (08/24/25 15:01) PTPTT (08/24/25 15:01) Phosphorus (08/24/25 15:01) Magnesium (08/24/25 15:01) Lipid Panel (08/24/25 15:01) Lipase (08/24/25 15:01) Lactic Acid W/ Reflex Order (08/24/25 15:01) Hemoglobin A1c (08/24/25 15:01) Drug Screen (08/24/25 15:01) Pantoprazole (Protonix) (08/24/25 22:00) Pantoprazole (Protonix) (08/24/25 15:15) Vital Signs Date Time Temp Pulse Resp B/P (MAP) Pulse Ox O2 Delivery O2 Flow Rate FiO2 08/24/25 14:55 97.5 81 18 107/49 (68) 100 97.5 08/24/25 13:12 80 16 100 Nasal Cannula* 3 32 08/24/25 13:12 97.5 84 16 93/35 (54) 100 97.5 08/24/25 12:45 98.2 81 16 106/45 98 98.2 Laboratory Tests Test 08/24/25 13:29 Lactic Acid Level 0.9 mmol/L (0.4-2.0) White Blood Count 8.3 10^3/uL (4.4-10.8) Assessment/Plan Assessment/Plan ASSESSMENT Hypovolemic shock Acute on chronic respiratory failure Severe anemia COPD exacerbation Acute on chronic diastolic congestive heart failure (HFpEF, LVEF 50% and RVSP 50 mmHg) NSTEMI likely type II Hypervolemia Hyponatremia Persistent A-Fib (Chads VAsc 5) - secondary hypercoagulability state Decubitus ulcer stage 1-2 present on admission Mild-moderate TR ESRD on HD sessions Hypertension Dyslipidemia Bedbound post ankle surgery Nonadherence Morbid obesity PLAN Patient admitted to ICU Currently on IV vasopressors, oxygen therapy (Initially on 5 L/min, now weaning down), Iv blood transfusion followed by IV diuretics, IV steroids, bronchodilators, and empiric IV antibiotics (Azithromycin) Patient has been off of her medication for a week since her discharge from [facility]. Probable cause of bleeding is accidental removal of her HD catheter last week. Recommend not restarting her anti-coagulation at this time due to severe anemia. Patient has high risk of CVA and embolia. Discontinue anti-hypertensive medication Ordered abdomen and pelvis CT due to nausea, and vomiting, rule out abdominal bleeding. Anemia work up pending. Ordered EKG and ABG (increased anion GAP) Consulted Nephrology for HD sessions. Goals of care discussed with patient and daughter for over 18 minutes: Full code status. Discussed plan with Dr Munroe, patient, daughter and nurses: Currently in ICU sta tus. Currently on IV vasopressors, oxygen therapy (Initially on 5 L/min, now weaning down), Iv blood transfusion followed by IV diuretics, IV steroids, bronchodilators, and empiric IV antibiotics. Discontinued anti-coagulation, high risk of CVA. Patient has poor prognosis. Plan discussed with: Patient, Daughter, Other (Nurses) My Orders Orders - AMY EDMOND RESIDENT Procedure Category Date Status Time Admit ADMIT 08/24/25 Transmitted 15:01 Code Status CODE 08/24/25 Transmitted 15:01 Acetaminophen Tablet PHA 08/24/25 Logged (Tylenol Tablet) 15:15 Npo (Nothing By DIET 08/24/25 Transmitted Mouth) Diet Dinner Echo 2d Mode Cardiac US 08/24/25 Logged DOP 15:01 Morphine Sulfate PHA 08/24/25 Transmitted Injection 15:15 Nitroglycerin PHA 08/24/25 Transmitted Sublingual (Ntrostat 15:15 Morphine Sulfate PHA 08/24/25 Transmitted Injection 15:15 Oxygen By Nasal RT 08/24/25 Transmitted Cannula 15:01 Stat Ekg For Chest [facility] 08/24/25 Transmitted Pain 15:01 Notify Md Of Changes [facility] 08/24/25 Transmitted From Base 15:01 Casing Man For [facility] 08/24/25 Transmitted 24 Hours 15:01 Emergency Dysrhythmia [facility] 08/24/25 Transmitted Protocol 15:01 Rhythm Strips Once [facility] 08/24/25 Transmitted Every Shift 15:01 Vitamin D, 25-Hydroxy LAB 08/24/25 Logged 15:01 Vitamin B12 LAB 08/24/25 Logged 15:01 Urinalysis LAB 08/24/25 Transmitted 15:01 Thyroid Stimulating LAB 08/24/25 Transmitted Hormone 15:01 PTPTT LAB 08/24/25 Transmitted 15:01 Phosphorus LAB 08/24/25 Transmitted 15:01 Magnesium LAB 08/24/25 Transmitted 15:01 Lipid Panel LAB 08/24/25 Transmitted 15:01 Lipase LAB 08/24/25 Transmitted 15:01 Lactic Acid W/ Reflex LAB 08/24/25 Transmitted Order 15:01 Hemoglobin A1c LAB 08/24/25 Transmitted 15:01 Drug Screen LAB 08/24/25 Transmitted 15:01 Pantoprazole PHA 08/24/25 Transmitted (Protonix) 22:00 Pantoprazole PHA 08/24/25 Transmitted (Protonix) 15:15 Date of Service: Aug 24, 2025 Billing Provider: REBA MUNROE MD Common Visit Codes: [id number] INP/OBS CARE (HIGH) Secondary Visit Codes: [id number] CARE PLAN 30 MINUTES AMY EDMOND RESIDENT Aug 24, 2025 15:06
[2025-08-24] MEDS ORDERED: NITROGLYCERIN 0.4 MG SL TAB SL PRN (15:15)
[2025-08-24 15:35] LABS: Magnesium 1.6 mg/dL (1.6-2.6); Triglycerides 73.0 mg/dL (< 150)
[2025-08-24 15:37] LABS: Cholesterol 65.0 mg/dL (< 200)
[2025-08-24 15:39] LABS: HDL Cholesterol 20.0 mg/dL (40-59)
[2025-08-24 15:41] LABS: INR 1.49 (0.9-1.15); Partial Thromboplastin Time 40.5 SEC (24.5-34.5); Prothrombin Time 15.2 sec (9.3-11.8)
[2025-08-24] MEDS ORDERED: MORPHINE SULFATE 4 MG/ML SYR/VIAL IV PRN (15:45)
[2025-08-24 15:52] LABS: Lipase 15.0 U/L (12-53)
[2025-08-24] MEDS: NOREPINEPHRINE 8 MG/250ML KIT 250 ML IV SCH (16:46)
[2025-08-24] MEDS: PANTOPRAZOLE 40 MG/10 ML VIAL INJ IV ONE (16:48)
[2025-08-24] MEDS: SODIUM CHL 0.9% 1000 ML BAG XX ONE (17:05)
[2025-08-24 18:55] LABS: Ferritin 595.0 ng/mL (10-291)
[2025-08-24] MEDS: methylPREDNISolone SOD SUCC 40 MG/ML VL IV ONE (18:56)
[2025-08-24] MEDS: AZITHROMYCIN 500MG/250ML 250 ML IV ONE (18:56)
[2025-08-24] MEDS: FUROSEMIDE 40 MG/4 ML VIAL IV ONE (18:57)
[2025-08-24 19:23] LABS: Base Excess -0.2 mmol/L (-2.0-3.0)
[2025-08-24 20:01] LABS: Iron 51.0 ug/dL (50-170)
[2025-08-24 20:06] LABS: Total Iron Binding Capacity 110.0 ug/dL (250-425)
[2025-08-24] MEDS: EPOETIN ALFA-EPBX 10,000 UNIT/1ML VIAL SC ONE (20:58)
[2025-08-24] MEDS ORDERED: EPOETIN ALFA-EPBX 4,000 UNIT/ML VIAL SC ONE (21:00)
[2025-08-24 21:36] LABS: Wright Stain Ready for Review
[2025-08-24] MEDS: PANTOPRAZOLE 40 MG/10 ML VIAL INJ IV SCH (21:44)
[2025-08-24] MEDS: methylPREDNISolone SOD SUCC 40 MG/ML VL IV SCH (21:44)
[2025-08-25] VITALS (37 sets, daily range): BP systolic 70–119; BP diastolic 48–74; PULSE 70–109; RESP 10–24; TEMP 98.1; O2SAT 73–100
[2025-08-25] MEDS: LEVALBUTEROL HCL 1.25 MG/3 ML NEB NEB SCH (00:18)
--- NOTE | 2025-08-25 01:05 | DVH ---
Exam: CT CT AB PEL WO CON-NO ORAL OR IV History: Nausea and vomiting, severe anemia Comparison Study: CT CT AB PEL WITH ORAL CON ONLY on DOS: 05/25/25, CT CT AB PEL WO CON-NO ORAL OR IV on DOS: 05/23/25, CT CT AB PEL WO CON-NO ORAL OR IV on DOS: 04/07/25, CT CT AB PEL WO CON-NO ORAL OR IV on DOS: 04/02/25, CT ABDOMEN WITHOUT CONTRAST on DOS: 03/26/25 Technique: Multidetector spiral CT of the chest, abdomen and pelvis was performed from lower neck to pubic symphysis Axial, coronal and sagittal multiplanar reformats were performed by the technologist on a separate workstation. Radiation Dose : 1. Chest/Abdomen/Pelvis: CTDIvol 26.59 mGy, DLP 1515.85 mGy*cm. Findings: Lower lungs: Trace bilateral pleural effusions. Mild bibasilar atelectatic changes. Liver: The liver is normal in size. No focal lesions. Normal hepatic vascular enhancement. Gallbladder and Biliary Tree: Unremarkable Spleen: Unremarkable Pancreas: The pancreas is normal in appearance without focal lesions or abnormal enhancement. Adrenal Glands: Unremarkable Kidneys: Kidneys demonstrate normal symmetric enhancement without focal lesions, calculi or hydronephrosis. Bladder: Unremarkable Bowel: The stomach is grossly normal in appearance. Small bowel and colon are normal in caliber and distribution. The appendix is not visualized; however, no secondary findings of acute appendicitis identified. Ascites: Absent Lymphadenopathy: No mesenteric, retroperitoneal or periportal lymphadenopathy. Abdominal Wall and Mesentery: Generalized soft tissue edema. Vasculature: The visualized abdominal aorta is normal in size and caliber. Abdominal and pelvic vessels demonstrate normal enhancement. Pelvic Organs: Unremarkable Musculoskeletal: No aggressive focal bony lesions, acute fractures or dislocation. IMPRESSION: No clear cause for nausea and vomiting or anemia. Generalized soft tissue edema. Trace bilateral pleural effusions.
[2025-08-25] MEDS: MORPHINE SULFATE 4 MG/ML SYR/VIAL IV PRN (01:16)
[2025-08-25] MEDS: FUROSEMIDE 40 MG/4 ML VIAL IV SCH (05:51)
[2025-08-25 06:07] LABS: Hemoglobin 7.9 g/dL (12.2-16.2)
[2025-08-25 06:09] LABS: Hematocrit 24.1 % (36.0-46.0); Mean Corpuscular Hemoglobin 28.6 pg (28.0-32.0); Mean Corpuscular Volume 87.3 fL (80.0-100.0)
[2025-08-25 06:32] LABS: Alanine Aminotransferase 15 U/L (7-40); Anion Gap 17 (5-15); BUN/Creatinine Ratio 7.1 (10.0-20.0); Blood Urea Nitrogen 18 mg/dL (9-23); Carbon Dioxide 23 mmol/L (20-31); Glucose 95 mg/dL (74-106); Magnesium 1.8 mg/dL (1.6-2.6); Potassium 4.4 mmol/L (3.5-5.1); Total Protein 6.0 g/dL (5.7-8.2)
[2025-08-25 06:33] LABS: Bilirubin, Total 1.0 mg/dL (0.2-1.0)
[2025-08-25 06:40] LABS: Albumin 3.2 g/dL (3.2-4.8); Alkaline Phosphatase 118 U/L (46-116); Calcium 8.3 mg/dL (8.7-10.4); Chloride 95 mmol/L (98-107); Sodium 135 mmol/L (136-145)
[2025-08-25 06:57] LABS: Total Cells Counted 100.0 (100)
[2025-08-25 06:59] LABS: Opiate Scree,Urine Neg (NEGATIVE)
[2025-08-25] MEDS: IPRATROPIUM BROM 0.5 MG/2.5ML INH SOL NEB SCH (07:01)
[2025-08-25 07:06] LABS: Urine Protein, UAD 1+ (Negative); Urine WBC Clumps PRESENT /hpf (None Seen)
[2025-08-25 07:11] LABS: Amphetamine Screen, Urine Neg (NEGATIVE); Barbiturate Scree,Urine Neg (NEGATIVE); Benzodiazephine Screen, Urine Neg (NEGATIVE); Cannabinoid Screen, Urine Neg (NEGATIVE); Cocaine Screen, Urine Neg (NEGATIVE); Phencyclidine Screen, Urine Neg (NEGATIVE)
[2025-08-25] MEDS: SODIUM CHL 0.9% 1000 ML BAG XX ONE (07:54)
[2025-08-25] MEDS: ACETAMINOPHEN 325 MG TAB PO PRN (09:50)
[2025-08-25] MEDS: AZITHROMYCIN 500MG/250ML 250 ML IV SCH (10:00)
--- NOTE | 2025-08-25 13:17 | DVHPN2 ---
Reviewed: Care Plan, H&P, Labs, Medications, Previous Orders, Radiology Changes from previous H/P or p: No Changes Objective Vitals Vital Signs Date Time Temp Pulse Resp B/P (MAP) Pulse Ox O2 Delivery O2 Flow Rate FiO2 08/25/25 12:00 88 14 100 08/25/25 11:15 115/65 (82) 08/25/25 08:01 Nasal Cannula* 2 28 08/25/25 04:00 98.1 98.1 Intake/Output Intake and Output 08/25/25 07:00 Intake Total 352.50 ml Output Total 30 ml Balance 322.50 ml Intake Oral 0 ml IV Total 52.50 ml Blood Product 300 ml Output Urine Total 30 ml # Bowel Movements 2 Medications Current Medications Medications Dose Ordered Sig/Sravan Route Start Time Stop Time Status Last Admin Dose Admin Norepinephrine Bitartrate 250 ml @ 3.75 mls/hr Q24H IV 08/24/25 13:30 08/24/25 16:46 3.75 MLS/HR Acetaminophen 325 mg Q4HP PRN PO 08/24/25 15:15 08/25/25 09:50 325 MG Morphine Sulfate 2 mg Q4HPRN PRN IV 08/24/25 15:45 08/25/25 01:16 2 MG Pantoprazole Sodium 40 mg BID IV 08/24/25 22:00 08/25/25 10:04 40 MG Furosemide 40 mg BIDD IV 08/25/25 06:00 08/25/25 05:51 40 MG Ipratropium [place] 0.5 mg Q6HWA [facility] 08/25/25 06:00 08/25/25 11:50 0.5 MG Levalbuterol HCl 0.625 mg Q6HR NEB 08/25/25 00:00 08/25/25 11:50 0.625 MG Methylprednisolone Sodium Succinate 40 mg BID IV 08/24/25 22:00 08/25/25 10:08 40 MG Azithromycin 250 ml @ 125 mls/hr DAILY IV 08/25/25 10:00 08/25/25 10:00 125 MLS/HR Laboratory Results Laboratory Tests 08/25/25 05:37 Chemistry Test 08/24/25 13:29 08/25/25 05:37 Calcium Level 8.7 mg/dL (8.7-10.4) 8.3 mg/dL (8.7-10.4) L Magnesium Level 1.6 mg/dL (1.6-2.6) 1.8 mg/dL (1.6-2.6) Phosphorus Level 5.9 mg/dL (2.4-5.1) H Albumin 3.2 g/dL (3.2-4.8) Total Protein 6.0 g/dL (5.7-8.2) Coagulation Test 08/24/25 13:29 Prothrombin Time 15.2 sec (9.3-11.8) H Prothrombin Time INR 1.49 (0.9-1.15) H Activated Partial Thromboplast Time 40.5 SEC (24.5-34.5) H Lipid panel Test 08/24/25 13:29 Cholesterol Level 65 mg/dL (< 200) HDL Cholesterol 20 mg/dL (40-59) L Lipase 15 U/L (12-53) Triglycerides Level 73 mg/dL (< 150) LFT Test 08/25/25 05:37 Alanine Aminotransferase (ALT) 15 U/L (7-40) Alkaline Phosphatase 118 U/L (46-116) H Aspartate Amino Transferase (AST) 14 U/L (13-40) Total Bilirubin 1.0 mg/dL (0.2-1.0) HgA1c, TSH Test 08/24/25 13:29 Hemoglobin A1c < 3.8 % A1C (<5.7) Thyroid Stimulating Hormone (TSH) 1.84 uIU/mL (0.55-4.78) Urinalysis Test 08/25/25 04:50 Urine Color Yellow (Yellow) Urine Clarity Cloudy (Clear) H Urine pH 5.5 (5.0-9.0) Urine Specific [place] 1.021 (1.001-1.035) Urine Protein 1+ (Negative) H Urine Ketones Trace (Negative) Urine Blood 2+ /uL (Negative) H Urine Nitrite Negative (Negative) Urine Bilirubin Negative (Negative) Urine Urobilinogen 2 mg/dL (Negative) H Urine Leukocyte Esterase 2+ /uL (Negative) Urine RBC 52 /hpf (0 - 4) Urine WBC Clumps Present /hpf (None Seen) Urine Microscopic WBC 5984 /HPF (0-5) H Urine Squamous Epithelial Cells Mod /hpf (<5) Urine Bacteria Many /hpf (None Seen) H Urine Glucose Normal mg/dL (Normal) Blood Gas Results Test 08/24/25 19:11 Arterial Blood pH 7.451 (7.350-7.450) FiO2 % 28.0 Labs and/or images reviewed: Labs reviewed by me, Image(s) reviewed by me Assessment/Plan Assessment/Plan Hypovolemic shock Acute on chronic respiratory failure Severe anemia COPD exacerbation Acute on chronic diastolic congestive heart failure (HFpEF, LVEF 50% and RVSP 50 mmHg) NSTEMI likely type II Hypervolemia Hyponatremia Abdominal pain nausea and vomiting consult for GI Dr Sabillon Persistent A-Fib (Chads VAsc 5) - secondary hypercoagulability state Decubitus ulcer stage 1-2 present on admission Mild-moderate TR ESRD on HD sessions: Consult for Dr. Lawson History of diverticular abscess Hypertension Dyslipidemia Bedbound post ankle surgery Nonadherence Morbid obesity Time spent 68 minutes Advanced care planning time 20 minutes Patient is full code Plan discussed with: Patient My Orders Orders - ABHILASH GOMES MD Procedure Category Date Status Time * Gi Dvh Spanish Language Lecturer CONS 08/25/25 Transmitted 13:10 Date of Service: Aug 25, 2025 Billing Provider: ABHILASH GOMES MD Common Visit Codes: [id number] CARE 30-74 MIN ABHILASH GOMES MD Aug 25, 2025 13:17
--- NOTE | 2025-08-25 15:03 | DVHPN2 ---
Progress Note - Dictate Date Seen: Aug 25, 2025 Medical Necessity Reason Pt with a Central, PICC or Fol: No Subjective Generalized weakness is improving vital signs Vital Sign Date Time Temp Pulse Resp B/P (MAP) Pulse Ox O2 Delivery O2 Flow Rate FiO2 08/25/25 14:00 89 13 115/63 (80) 100 08/25/25 08:01 Nasal Cannula* 2 28 08/25/25 04:00 98.1 98.1 Total Intake and Output 08/24/25 08/24/25 08/25/25 15:00 23:00 07:00 Intake Total 326.25 ml 26.25 ml Output Total 30 ml Balance 326.25 ml -3.75 ml medications Current Medications Medications Dose Ordered Sig/Sravan Route Start Time Stop Time Status Last Admin Dose Admin Acetaminophen 325 mg Q4HP PRN PO 08/24/25 15:15 08/25/25 09:50 325 MG Morphine Sulfate 2 mg Q4HPRN PRN IV 08/24/25 15:45 08/25/25 01:16 2 MG Pantoprazole Sodium 40 mg BID IV 08/24/25 22:00 08/25/25 10:04 40 MG Furosemide 40 mg BIDD IV 08/25/25 06:00 08/25/25 05:51 40 MG Ipratropium [place] 0.5 mg Q6HWA [facility] 08/25/25 06:00 08/25/25 11:50 0.5 MG Levalbuterol HCl 0.625 mg Q6HR NEB 08/25/25 00:00 08/25/25 11:50 0.625 MG Methylprednisolone Sodium Succinate 40 mg BID IV 08/24/25 22:00 08/25/25 10:08 40 MG Azithromycin 250 ml @ 125 mls/hr DAILY IV 08/25/25 10:00 08/25/25 10:00 125 MLS/HR Acetaminophen/ Hydrocodone Bitart 1 tab Q4HPRN PRN PO 08/25/25 13:45 objective HEENT: No evidence of JVD, no oral ulcers. Pulmonary: Lungs are clear on auscultation bilaterally Cardiovascular S1-S2, no S3 or S4 Abdomen: Bowel sounds positive, soft no rebound tenderness Skin: No rash Neurological: Alert, oriented, no focal weakness Extremities: 2+ pitting edema lower extreme Dialysis access right upper chest CVC laboratory and microbiology Laboratory Tests 08/25/25 05:37 Test 08/25/25 05:37 Range/Units Serum Glucose 95 74-106 mg/dL Assessment/Plan Assessment: 1. End-stage renal disease on hemodialysis TTS. 2. Hypotension rule out septic shock 3. Nausea and vomiting secondary to uremia 4. Anemia 5. Acute hypoxic respiratory failure 6. Bedridden status 7. Protein malnutrition 8. Generalized weakness Plan: Dialysis was completed yesterday, repeat today, then TTS P.r.n. Levophed Albumin p.r.n. Transfuse one PRBC Broad-spectrum antibiotics [place] for goal hemoglobin 10-11 Midodrine t.i.d. Pancultures rule out sepsis Patient is going to need placement Thank you very much for allowing us to participate in the care of this patient please contact if you have any questions. Plan discussed with: Patient AFTAB KENDALL MD Aug 25, 2025 15:03
[2025-08-25] MEDS: HYDROcodone-ACET 5/325MG TAB PO PRN (15:20)
--- NOTE | 2025-08-25 18:49 | DVHINCON2 ---
Date of service: Aug 25, 2025 Referring Physician Mikie Gibson Reason for Consultation Anemia, abdominal pain, nausea and vomiting History of Present Illness The patient is a 74-year-old female with a history of hypertension, hyperlipidemia, end-stage renal disease on hemodialysis, CHF, history of div erticulitis, who was recently seen at an outside facility when she had an accident with her dialysis catheter and she began having significant bleeding. The patient has not been on her medications. She has a history of atrial fibrillation and has been on Eliquis. The patient is not having any gross bleeding. She denies any melena or hematochezia. She denies any hematemesis. She was found to have significant anemia. Patient was also admitted with abdominal pain nausea and vomiting. Patient states that she is not having any more abdominal pain nausea or vomiting. GI consultation was obtained for her symptoms. Past Medical History As above Past Surgical History Hemodialysis catheter History of ankle surgery istory of abdominal abscess Family History: Cerebrovascular accident (CVA) G8 MOTHER Chronic obstructive pulmonary disease FH: CHF (congestive heart failure) G8 MOTHER Hypertension G8 MOTHER Social History Prior history of alcohol abuse and tobacco abuse Allergies: Coded Allergies: Zinc Oxide (Verified Allergy, Mild, 03/07/25) Sulfa Antibiotics (Verified Allergy, Unknown, 01/16/22) Home Meds Active Scripts Azithromycin (ZITHROMAX TABLET) 250 Mg Tb, 250 MG PO DAILY for 5 Days, #6 TAB take 2 tabs on first day, then 1 tab daily x 4 days Prov:TORRIE BUTLER DO 08/10/25 Prednisone (Prednisone) 20 Mg Tab, 20 MG PO BID for 5 Days, #10 TAB Prov:VÍCTOR HAMILTON BOOK BINDER 01/20/22 Reported Medications Amiodarone HCl (Amiodarone HCl) 200 Mg Tab, 1 TAB PO BID 03/20/25 Levothyroxine Sodium (Levothyroxine Sodium) 137 Mcg Tab, 1 TAB PO DAILY 03/20/25 Ropinirole Hydrochloride (Ropinirole Hcl) 0.25 Mg Tab, 1 TAB PO BID for 90 Days, #180 02/26/25 Midodrine Hcl (Midodrine Hcl) 10 Mg Tab, 1 TAB PO BID for 90 Days, #180 02/26/25 Potassium Chloride (Potassium Chloride ER) 20 Meq Tab, 1 TAB PO BID for 90 Days, #180 02/26/25 Fluticasone-Salmeterol (Fluticasone Propionate/SA 500-50 Mcg/Dose) 1 Aer Aer, 1 PUFF PO BID for 30 Days, #60 02/26/25 Lactulose (Lactulose) 10 Gm/15 Ml Yoselyn, 15 ML PO DAILY for 30 Days, #450 02/26/25 Gabapentin (Gabapentin) 300 Mg Cap, 300 MG PO BID 11/08/24 Pantoprazole Sodium Sesquihydr (Pantoprazole Sodium) 40 Mg Tab, 1 TAB PO DAILY 11/08/24 Atorvastatin Calcium (ATORVASTATIN CALCIUM) 20 Mg Tab, 1 TAB PO DAILY 11/08/24 Bumetanide (Bumetanide) 2 Mg Tab, 1 TAB PO BID 11/08/24 Apixaban Base (ELIQUIS) 2.5 Mg Tab, 1 TAB PO BID 11/08/24 Clobetasol Propionate (Clobetasol Propionate) 0.05 % Oin, 1 APPLIC TOP BID, #15 GRAMS 01/17/22 Hydroxychloroquine Sulfate (PLAQUENIL) 200 Mg Tab, 1 TAB PO DAILY, #180 TAB 3 Refills 01/17/22 Fluticasone-Salmeterol (Advair Diskus 500/50) 1 Puff Ih, 1 PUFF INH BID, #1 INHALER 5 Refills 01/17/22 Albuterol Sulfate (VENTOLIN MDI) 90 Mcg Ih, 90 MCG IN Q6HP for 30 Days, MCG 01/17/22 Allopurinol (Allopurinol) 100 Mg Tab, 100 MG PO DAILY for 30 Days, MG 01/17/22 Meclizine HCl (Meclizine 25) 25 Mg Tab, 25 MG PO BID, TAB 01/17/22 Current Medications Current Medications Medications (Trade) Dose Ordered Sig/Sravan Route PRN Reason Start Time Stop Time Status Last Admin Pantoprazole Sodium (Protonix) 40 mg BID IV 08/24/25 22:00 08/25/25 10:04 Furosemide (Lasix Injection) 40 mg BIDD IV 08/25/25 06:00 08/25/25 05:51 Ipratropium [place] (Atrovent Medneb) 0.5 mg Q6HWA NEB 08/25/25 06:00 08/25/25 11:50 Levalbuterol HCl (Xopenex Medneb) 0.625 mg Q6HR NEB 08/25/25 00:00 08/25/25 11:50 Methylprednisolone Sodium Succinate (Solu Medrol) 40 mg BID IV 08/24/25 22:00 08/25/25 10:08 Azithromycin 250 ml @ 125 mls/hr DAILY IV 08/25/25 10:00 08/25/25 10:00 Acetaminophen/ Hydrocodone Bitart ([place] 5/325MG Tab) 1 tab Q4HPRN PRN PO MODERATE PAIN (4-6 PAIN SCALE) 08/25/25 13:45 08/25/25 15:20 Review of Systems As above otherwise ROS negative Vital Signs Vital Signs Date Time Temp Pulse Resp B/P (MAP) Pulse Ox O2 Delivery O2 Flow Rate FiO2 08/25/25 18:00 95/51 08/25/25 17:00 82 13 100 08/25/25 08:01 Nasal Cannula* 2 28 08/25/25 04:00 98.1 98.1 Physical Exam General: Alert, elderly and obese female sitting up in bed HEENT: NC/AT EOMI PERRLA diastolic clear Heart: Regular rate irregular rhythm Abdomen: Soft, morbidly obese, distended, nontender Extremity: No clubbing, cyanosis, there is edema bilateral lower extremities Skin: Ecchymosis upper and lower extremities Neuro: Moves all 4 extremities no asterixis Labs/Diagnostic Data Labs Test 08/25/25 05:37 08/25/25 04:50 08/24/25 20:00 08/24/25 19:11 Range/Units White Blood Count 6.9 4.4-10.8 10^3/uL Red Blood Count 2.76 L 4.0-5.20 10^6/uL Hemoglobin 7.9 #L 12.2-16.2 g/dL Hematocrit 24.1 #L 36.0-46.0 % Mean Corpuscular Volume 87.3 80.0-100.0 fL Mean Corpuscular Hemoglobin 28.6 28.0-32.0 pg Mean Corpuscular Hemoglobin Concent 32.8 32.0-36.0 g/dL Red Cell Distribution Width 19.9 H 11.8-14.3 % Platelet Count 199 140-450 10^3/uL Mean Platelet Volume 6.8 L 6.9-10.8 fL Neutrophils (%) (Auto) 37.0-80.0 % Lymphocytes (%) (Auto) 10.0-50.0 % Monocytes (%) (Auto) 0.0-12.0 % Basophils (%) (Auto) 0.0-2.0 % Neutrophils # (Auto) 1.6-8.6 10 ^3/uL Lymphocytes # (Auto) 0.4-5.4 10 ^3/uL Monocytes # (Auto) 0-1.3 10 ^3/uL Differential Total Cells Counted 100.0 100 Neutrophils % (Manual) 93 H 37.0-80.0 Band Neutrophils % (Manual) 0 Lymphocytes % (Manual) 7 L 10.0-50.0 Monocytes % (Manual) 0 0-12 Eosinophils % (Manual) 0 0-7 Basophils % (Manual) 0 0.0-2.0 Metamyelocytes % (manual) 0 Myelocytes % (Manual) 0 Promyelocytes % (Manual) 0 Blast Cells % (Manual) 0 Reactive Lymphocytes 0 Platelet Estimate Adequate Sodium Level 135 L 136-145 mmol/L Potassium Level 4.4 3.5-5.1 mmol/L Chloride Level 95 L 98-107 mmol/L Carbon Dioxide Level 23 20-31 mmol/L Anion Gap 17 H 5-15 Blood Urea Nitrogen 18 # 9-23 mg/dL Creatinine 2.52 #H 0.550-1.02 mg/dL Glomerular Filtration Rate Calc 19 >90 mL/min BUN/Creatinine Ratio 7.1 L 10.0-20.0 Serum Glucose 95 74-106 mg/dL Calcium Level 8.3 L 8.7-10.4 mg/dL Magnesium Level 1.8 1.6-2.6 mg/dL Total Bilirubin 1.0 0.2-1.0 mg/dL Aspartate Amino Transferase (AST) 14 13-40 U/L Alanine Aminotransferase (ALT) 15 7-40 U/L Alkaline Phosphatase 118 H 46-116 U/L Total Protein 6.0 5.7-8.2 g/dL Albumin 3.2 3.2-4.8 g/dL Urine Color Yellow Yellow Urine Clarity Cloudy H Clear Urine pH 5.5 5.0-9.0 Urine Specific [place] 1.021 1.001-1.035 Urine Protein 1+ H Negative Urine Ketones Trace Negative Urine Blood 2+ H Negative /uL Urine Nitrite Negative Negative Urine Bilirubin Negative Negative Urine Urobilinogen 2 H Negative mg/dL Urine Leukocyte Esterase 2+ Negative /uL Urine RBC 52 0 - 4 /hpf Urine WBC Clumps Present None Seen /hpf Urine Microscopic WBC 5984 H 0-5 /HPF Urine Squamous Epithelial Cells Mod <5 /hpf Urine Bacteria Many H None Seen /hpf Urine Glucose Normal Normal mg/dL Urine Opiates Screen Neg NEGATIVE Urine Fentanyl Screen Neg NEGATIVE Urine Barbiturates Screen Neg NEGATIVE Urine Phencyclidine Screen Neg NEGATIVE Urine Amphetamines Screen Neg NEGATIVE Urine Benzodiazepines Screen Neg NEGATIVE Urine Cocaine Screen Neg NEGATIVE Urine Cannabinoids Screen Neg NEGATIVE Reticulocyte Count (auto) 2.15 H 0.5-1.5 % Blood Gas Specimen Type Arterial Blood Gas Sample Site Right radial Blood Gas Patient Temperature 37.0 Arterial Blood Date Drawn [id number] Arterial Blood pH 7.451 H 7.350-7.450 Arterial Blood Partial Pressure CO2 34.6 32.0-45.0 mmHg Arterial Blood Partial Pressure O2 114.8 H 83.0-108.0 mmHg Arterial Blood HCO3 23.6 21.0-28.0 mmol/L Arterial Blood Oxygen Saturation 98.0 94.0-98.0 % Arterial Blood Base Excess -0.2 -2.0-3.0 mmol/L Arterial Blood Oxyhemoglobin 96.3 94.0-98.0 % Arterial Blood Carboxyhemoglobin 1.2 0.5-1.5 % Arterial Blood Methemoglobin 0.5 0.0-1.5 % Arterial Blood Deoxyhemoglobin 2.0 0.0-5.0 % [place]co Test Positive Blood Gas Total Hemoglobin 8.70 L 12.0-16.0 g/dL Blood Gas Liter Flow 2.00 Blood Gas Modality Nasal cannula FiO2 % 28.0 Test 08/24/25 13:29 08/24/25 13:03 Range/Units Eosinophils (%) (Auto) 0.9 0.0-7.0 % Eosinophils # (Auto) 0.1 0-0.8 10 ^3/uL Basophils # (Auto) 0.1 0-0.2 10 ^3/uL Nucleated Red Blood Cells 0.1 % Anisocytosis (manual) Moderate Prothrombin Time 15.2 H 9.3-11.8 sec Prothrombin Time INR 1.49 H 0.9-1.15 Activated Partial Thromboplast Time 40.5 H 24.5-34.5 SEC Hemoglobin A1c < 3.8 <5.7 % A1C Lactic Acid Level 0.9 0.4-2.0 mmol/L Phosphorus Level 5.9 H 2.4-5.1 mg/dL Iron Level 51 50-170 ug/dL Total Iron Binding Capacity 110 L 250-425 ug/dL Percent Iron Saturation 46.4 15-50 % Ferritin 595.0 H 10-291 ng/mL Troponin I High Sensitivity 60 *H </=34 ng/L Triglycerides Level 73 < 150 mg/dL Cholesterol Level 65 < 200 mg/dL LDL Cholesterol 20 < 100 mg/dL HDL Cholesterol 20 L 40-59 mg/dL Lipase 15 12-53 U/L Vitamin B12 Level 1033 H 211-911 pg/mL Vitamin D 25-Hydroxy 62.2 30.0-100 ng/mL Folic Acid 9.29 >5.38 ng/mL Thyroid Stimulating Hormone (TSH) 1.84 0.55-4.78 uIU/mL Hepatitis B Surface Antigen Negative Negative POC Glucose 90 70-106 mg/dl Microbiology Date/Time Source Procedure Growth Status 08/25/25 04:50 Nose MRSA Screen - Final Methicillin Resistant S.aureus Complete 08/24/25 13:38 Blood Blood Culture - Preliminary NO GROWTH AFTER 24 HOURS OF INCUBATION. Resulted Assessment 1. Morbid obesity 2. Abdominal pain, resolved 3. Nausea and vomiting, resolved 4. Anemia likely multifactorial given her chronic kidney disease, on hemodialysis, bleeding from catheter site, no gross GI bleeding 5. Fluid overload with pleural effusions bilaterally and generalized edema 6. AFib, on Eliquis Problems(with codes): (1) Severe anemia (2) Acute on chronic diastolic CHF (congestive heart failure) (3) CHF exacerbation (4) Acute on chronic kidney failure (5) Atrial fibrillation with RVR Plan/Recommendation 1. Follow H&H and transfuse to keep hemoglobin above 7 2. Protonix 3. Caution with NSAIDs and anticoagulants 4. Hold off on endoscopy at this time. Consider endoscopy and colonoscopy if the patient is optimized from a cardiovascular perspective 5. We will follow Plan discussed with: Patient BEN ARREOLA MD Aug 25, 2025 18:49
[2025-08-25] MEDS: EPOETIN ALFA-EPBX 4,000 UNIT/ML VIAL SC ONE (21:06)
[2025-08-26] VITALS (7 sets, daily range): PULSE 83–105; RESP 11–18; O2SAT 96–99
[2025-08-26 02:16] LABS: Hematocrit 25.3 % (36.0-46.0); Hemoglobin 8.1 g/dL (12.2-16.2); Mean Corpuscular Hemoglobin 28.7 pg (28.0-32.0); Mean Corpuscular Volume 89.6 fL (80.0-100.0); Nucleated Red Blood Cells % 0.0 %
[2025-08-26 02:53] LABS: Alanine Aminotransferase 11 U/L (7-40); Albumin 3.3 g/dL (3.2-4.8); Alkaline Phosphatase 115 U/L (46-116); Anion Gap 16 (5-15); BUN/Creatinine Ratio 7.1 (10.0-20.0); Blood Urea Nitrogen 20 mg/dL (9-23); Carbon Dioxide 23 mmol/L (20-31); Potassium 4.1 mmol/L (3.5-5.1); Total Protein 6.2 g/dL (5.7-8.2)
[2025-08-26 02:54] LABS: Bilirubin, Total 0.8 mg/dL (0.2-1.0)
[2025-08-26 02:55] LABS: Calcium 8.5 mg/dL (8.7-10.4); Chloride 95 mmol/L (98-107); Glucose 108 mg/dL (74-106); Sodium 134 mmol/L (136-145)
[2025-08-26] MEDS: NOREPINEPHRINE 8 MG/250ML KIT 250 ML IV SCH (05:17)
[2025-08-26] MEDS: NOREPINEPHRINE 8 MG/250ML KIT 250 ML IV ONE (05:20)
--- NOTE | 2025-08-26 12:23 | DVHPN2 ---
Reviewed: Care Plan, H&P, Labs, Medications, Previous Orders, Radiology Changes from previous H/P or p: No Changes Objective Vitals Vital Signs Date Time Temp Pulse Resp B/P (MAP) Pulse Ox O2 Delivery O2 Flow Rate FiO2 08/26/25 11:48 98 Nasal Cannula 2.0 08/26/25 11:48 28 08/26/25 11:48 105 14 08/26/25 11:45 114/63 (80) 08/26/25 07:30 97.7 97.7 Intake/Output Intake and Output 08/26/25 07:00 Intake Total 730 ml Output Total 50 ml Balance 680 ml Intake Oral 480 ml IV Total 250 ml Output Urine Total 50 ml Medications Current Medications Medications Dose Ordered Sig/Sravan Route Start Time Stop Time Status Last Admin Dose Admin Acetaminophen 325 mg Q4HP PRN PO 08/24/25 15:15 08/25/25 09:50 325 MG Morphine Sulfate 2 mg Q4HPRN PRN IV 08/24/25 15:45 08/25/25 01:16 2 MG Pantoprazole Sodium 40 mg BID IV 08/24/25 22:00 08/26/25 10:25 40 MG Furosemide 40 mg BIDD IV 08/25/25 06:00 08/25/25 05:51 40 MG Ipratropium [place] 0.5 mg Q6HWA NEB 08/25/25 06:00 08/26/25 11:48 0.5 MG Levalbuterol HCl 0.625 mg Q6HR NEB 08/25/25 00:00 08/26/25 11:48 0.625 MG Methylprednisolone Sodium Succinate 40 mg BID IV 08/24/25 22:00 08/26/25 10:25 40 MG Azithromycin 250 ml @ 125 mls/hr DAILY IV 08/25/25 10:00 08/25/25 10:00 125 MLS/HR Acetaminophen/ Hydrocodone Bitart 1 tab Q4HPRN PRN PO 08/25/25 13:45 08/26/25 08:23 1 TAB Norepinephrine Bitartrate 250 ml @ 3.75 mls/hr Q24H IV 08/26/25 05:15 08/26/25 05:17 3.75 MLS/HR Ceftriaxone Sodium 50 ml @ 100 mls/hr DAILY@09 IV 08/27/25 09:00 Laboratory Results Laboratory Tests 08/26/25 01:56 Chemistry Test 08/26/25 01:56 Albumin 3.3 g/dL (3.2-4.8) Calcium Level 8.5 mg/dL (8.7-10.4) L Total Protein 6.2 g/dL (5.7-8.2) LFT Test 08/26/25 01:56 Alanine Aminotransferase (ALT) 11 U/L (7-40) Alkaline Phosphatase 115 U/L (46-116) Aspartate Amino Transferase (AST) 12 U/L (13-40) L Total Bilirubin 0.8 mg/dL (0.2-1.0) Urinalysis Test 08/25/25 04:50 Urine Color Yellow (Yellow) Urine Clarity Cloudy (Clear) H Urine pH 5.5 (5.0-9.0) Urine Specific [place] 1.021 (1.001-1.035) Urine Protein 1+ (Negative) H Urine Ketones Trace (Negative) Urine Blood 2+ /uL (Negative) H Urine Nitrite Negative (Negative) Urine Bilirubin Negative (Negative) Urine Urobilinogen 2 mg/dL (Negative) H Urine Leukocyte Esterase 2+ /uL (Negative) Urine RBC 52 /hpf (0 - 4) Urine WBC Clumps Present /hpf (None Seen) Urine Microscopic WBC 5984 /HPF (0-5) H Urine Squamous Epithelial Cells Mod /hpf (<5) Urine Bacteria Many /hpf (None Seen) H Urine Glucose Normal mg/dL (Normal) Microbiology Microbiology Date/Time Source Procedure Growth Status 08/25/25 04:50 Nose MRSA Screen - Final Methicillin Resistant S.aureus Complete 08/25/25 04:50 Urine - [place] Urine Culture - Preliminary Resulted 08/24/25 13:38 Blood Blood Culture - Preliminary NO GROWTH AFTER 24 HOURS OF INCUBATION. Resulted Labs and/or images reviewed: Labs reviewed by me, Image(s) reviewed by me Assessment/Plan Assessment/Plan Acute Hypovolemic shock Acute on chronic respiratory failure Severe anemia hemoglobin 6.8 improved to 8.1 after 1 unit RBC transfusion, GI consult by Dr. Sabillon appreciated, deferred endoscopy COPD exacerbation Acute on chronic diastolic congestive heart failure (HFpEF, LVEF 50% and RVSP 50 mmHg) NSTEMI likely type II Hypovolemic hyponatremia Abdominal pain nausea and vomiting consult for GI Dr Sabillon appreciated Persistent A-Fib (Chads VAsc 5) - secondary hypercoagulability state Decubitus ulcer stage 1-2 present on admission Mild-moderate TR ESRD on HD sessions: Consult for Dr. Lawson History of diverticular abscess Hypertension Dyslipidemia Bedbound status post ankle surgery Compliance Morbid obesity Time spent 68 minutes Advanced care planning time 20 minutes Patient is full code Plan discussed with: Patient My Orders Orders - ABHILASH GOMES MD Procedure Category Date Status Time * Gi Dvh [facility] And Bomb Investigator CONS 08/25/25 Transmitted 13:10 Hydrocodone-Acet PHA 08/25/25 In Process 5/325mg Tab ([place] 13:45 Cardiac DIET 08/25/25 Transmitted Diet-2gna,Lofat,Lochol Dinner * Picc Line Consult CONS 08/25/25 Transmitted 13:45 Mupirocin 2% Oint PHA 08/26/25 Logged Mrsa Nares (Bactroban 22:00 Date of Service: Aug 26, 2025 Billing Provider: ABHILASH GOMES MD Common Visit Codes: 29392-OSSONUCC CARE 30-74 MIN ABHILASH GOMES MD Aug 26, 2025 12:23
[2025-08-26] MEDS: SODIUM CHL 0.9% 1000 ML BAG XX ONE (12:45)
--- NOTE | 2025-08-26 13:34 | DVHPN2 ---
Progress Note - Dictate Date Seen: Aug 26, 2025 Medical Necessity Reason Pt with a Central, PICC or Fol: No Subjective Generalized weakness is improving vital signs Vital Sign Date Time Temp Pulse Resp B/P (MAP) Pulse Ox O2 Delivery O2 Flow Rate FiO2 08/26/25 12:30 103 18 115/76 (89) 99 08/26/25 11:48 Nasal Cannula 2.0 08/26/25 11:48 28 08/26/25 07:30 97.7 97.7 Total Intake and Output 08/25/25 08/25/25 08/26/25 15:00 23:00 07:00 Intake Total 250 ml 480 ml Output Total 50 ml Balance 250 ml 430 ml medications Current Medications Medications Dose Ordered Sig/Sravan Route Start Time Stop Time Status Last Admin Dose Admin Acetaminophen 325 mg Q4HP PRN PO 08/24/25 15:15 08/25/25 09:50 325 MG Morphine Sulfate 2 mg Q4HPRN PRN IV 08/24/25 15:45 08/25/25 01:16 2 MG Pantoprazole Sodium 40 mg BID IV 08/24/25 22:00 08/26/25 10:25 40 MG Furosemide 40 mg BIDD IV 08/25/25 06:00 08/25/25 05:51 40 MG Ipratropium [place] 0.5 mg Q6HWA NEB 08/25/25 06:00 08/26/25 11:48 0.5 MG Levalbuterol HCl 0.625 mg Q6HR NEB 08/25/25 00:00 08/26/25 11:48 0.625 MG Methylprednisolone Sodium Succinate 40 mg BID IV 08/24/25 22:00 08/26/25 10:25 40 MG Azithromycin 250 ml @ 125 mls/hr DAILY IV 08/25/25 10:00 08/25/25 10:00 125 MLS/HR Acetaminophen/ Hydrocodone Bitart 1 tab Q4HPRN PRN PO 08/25/25 13:45 08/26/25 08:23 1 TAB Norepinephrine Bitartrate 250 ml @ 3.75 mls/hr Q24H IV 08/26/25 05:15 08/26/25 05:17 3.75 MLS/HR Ceftriaxone Sodium 50 ml @ 100 mls/hr DAILY@09 IV 08/27/25 09:00 Mupirocin 1 applic BID EACHNOSTRI 08/26/25 22:00 08/31/25 21:59 objective HEENT: No evidence of JVD, no oral ulcers. Pulmonary: Lungs are clear on auscultation bilaterally Cardiovascular S1-S2, no S3 or S4 Abdomen: Bowel sounds positive, soft no rebound tenderness Skin: No rash Neurological: Alert, oriented, no focal weakness Extremities: 2+ pitting edema lower extreme Dialysis access right upper chest CVC laboratory and microbiology Laboratory Tests 08/26/25 01:56 Test 08/26/25 01:56 Range/Units Serum Glucose 108 H 74-106 mg/dL Assessment/Plan Assessment: 1. End-stage renal disease on hemodialysis TTS. 2. Hypotension rule out septic shock 3. Nausea and vomiting secondary to uremia 4. Anemia 5. Acute hypoxic respiratory failure 6. Bedridden status 7. Protein malnutrition 8. Generalized weakness Plan: Dialysis today and then TTS P.r.n. Levophed Albumin p.r.n. Transfuse one PRBC Broad-spectrum antibiotics [place] for goal hemoglobin 10-11 Midodrine t.i.d. Pancultures rule out sepsis Patient is going to need placement Thank you very much for allowing us to participate in the care of this patient please contact if you have any questions. Plan discussed with: Patient AFTAB KENDALL MD Aug 26, 2025 13:34
--- NOTE | 2025-08-26 21:15 | DVHPN2 ---
Progress Note - Dictate Date Seen: Aug 26, 2025 Medical Necessity Reason Pt with a Central, PICC or Fol: No Subjective No new complaints Generalized weakness improving Patient is undergoing hemodialysis No active GI bleeding reported Hemoglobin up to 8.1 S/P 1 unit PRBC vital signs Vital Sign Date Time Temp Pulse Resp B/P (MAP) Pulse Ox O2 Delivery O2 Flow Rate FiO2 08/26/25 20:45 91/55 08/26/25 20:19 97.6 111 15 95 97.6 08/26/25 17:33 Nasal Cannula* 2 28 Total Intake and Output 08/25/25 08/25/25 08/26/25 15:00 23:00 07:00 Intake Total 250 ml 480 ml Output Total 50 ml Balance 250 ml 430 ml medications Current Medications Medications Dose Ordered Sig/Sravan Route Start Time Stop Time Status Last Admin Dose Admin Acetaminophen 325 mg Q4HP PRN PO 08/24/25 15:15 08/25/25 09:50 325 MG Morphine Sulfate 2 mg Q4HPRN PRN IV 08/24/25 15:45 08/25/25 01:16 2 MG Pantoprazole Sodium 40 mg BID IV 08/24/25 22:00 08/26/25 10:25 40 MG Furosemide 40 mg BIDD IV 08/25/25 06:00 08/26/25 18:19 40 MG Ipratropium [place] 0.5 mg Q6HWA NEB 08/25/25 06:00 08/26/25 17:32 0.5 MG Levalbuterol HCl 0.625 mg Q6HR NEB 08/25/25 00:00 08/26/25 17:32 0.625 MG Methylprednisolone Sodium Succinate 40 mg BID IV 08/24/25 22:00 08/26/25 10:25 40 MG Azithromycin 250 ml @ 125 mls/hr DAILY IV 08/25/25 10:00 08/25/25 10:00 125 MLS/HR Acetaminophen/ Hydrocodone Bitart 1 tab Q4HPRN PRN PO 08/25/25 13:45 08/26/25 17:40 1 TAB Norepinephrine Bitartrate 250 ml @ 3.75 mls/hr Q24H IV 08/26/25 05:15 08/26/25 20:45 11.25 MLS/HR Ceftriaxone Sodium 50 ml @ 100 mls/hr DAILY@09 IV 08/27/25 09:00 Mupirocin 1 applic BID EACHNOSTRI 08/26/25 22:00 08/31/25 21:59 objective General: Alert, elderly and obese female undergoing HD HEENT: NC/AT EOMI PERRLA diastolic clear Heart: Regular rate irregular rhythm Abdomen: Soft, morbidly obese, distended, nontender Extremity: No clubbing, cyanosis, there is edema bilateral lower extremities Skin: Ecchymosis upper and lower extremities Neuro: Moves all 4 extremities no asterixis laboratory and microbiology Laboratory Tests 08/26/25 01:56 Test 08/26/25 01:56 Range/Units Serum Glucose 108 H 74-106 mg/dL Problems(with codes): (1) Atrial fibrillation with RVR (2) CHF exacerbation (3) Acute on chronic kidney failure (4) Severe anemia Prognosis Plan/Recommendation 1. Follow H&H and transfuse to keep hemoglobin above 7 2. Protonix 40 mg IV daily 3. Caution with NSAIDs and anticoagulants 4. Hold off on endoscopy at this time. Consider out patient elective endoscopy and colonoscopy if the patient is optimized from a cardiovascular perspective 5. We will follow Plan discussed with: Patient MAGALYS AQUINO MD Aug 26, 2025 21:15
[2025-08-26] MEDS ORDERED: MUPIROCIN 2% OINT 15gm or 22gm FOR MRSA NARES EACHNOSTRI SCH (22:00)
[2025-08-26] MEDS: EPOETIN ALFA-EPBX 10,000 UNIT/1ML VIAL SC ONE (22:45)
[2025-08-27] VITALS (101 sets, daily range): BP systolic 33–137; BP diastolic 15–113; PULSE 45–119; RESP 11–30; TEMP 98.4–98.7; O2SAT 59–100
[2025-08-27] MEDS: VASOPRESSIN 20 UNIT/ML ONE ×3 (09:43→11:44)
[2025-08-27] MEDS: ROCURONIUM 10MG/ML 10ML VIAL IV ONE ×2 (09:50→09:52)
[2025-08-27] MEDS: ETOMIDATE (2MG/ML) 20ML VIAL IV ONE ×2 (09:51→10:45)
[2025-08-27] MEDS: MIDAZOLAM DRIP 100 mg/100mL NS 100 ML IV ONE (09:51)
[2025-08-27] MEDS: fentaNYL Drip 2500mCg/250mlNS 250 ML IV ONE (09:52)
[2025-08-27] MEDS: MIDAZOLAM DRIP 100 mg/100mL NS 100 ML IV SCH (09:56)
[2025-08-27] MEDS: fentaNYL Drip 2500mCg/250mlNS 250 ML IV SCH (09:56)
[2025-08-27] MEDS: MUPIROCIN 2% OINT 15gm or 22gm FOR MRSA NARES EACHNOSTRI SCH (10:00)
[2025-08-27] MEDS ORDERED: CEFEPIME 1GM/50ML 50 ML IV SCH (10:00)
[2025-08-27] MEDS: EPINEPHrine HCL 250 ML IV ONE (10:08)
[2025-08-27] MEDS ORDERED: EPINEPHrine HCL 250 ML IV SCH (10:45)
[2025-08-27] MEDS: SODIUM CHLORIDE 0.9% 500 ML IV ONE (10:45)
[2025-08-27] MEDS: VASOPRESSIN 20 UNITS in SODIUM CHL 0.9% 99 ML IV SCH (10:55)
[2025-08-27] MEDS: PHENYLEPHRINE INJ 80 MG in SODIUM CHL 0.9% 242 ML IV SCH (10:55)
[2025-08-27 11:04] LABS: Base Excess -15.4 mmol/L (-2.0-3.0)
--- NOTE | 2025-08-27 11:28 | DVHNC2 ---
Procedure - Radial arterial line procedure note Indication: Hemodynamic monitoring, frequent blood ABG draws. Junior Bookkeeper: Dr. Oro Open End Spinning Operator: Amelia RN, Fe RN Date: August 27, 2025 Time: 10:30 a.m. Consent: Emergent procedure medically necessary for hemodynamic monitoring. Patient medications and allergies reviewed. The risks and benefits of the procedure and the sedation options and risk were discussed with the patient's healthcare proxy. All questions were answered and informed consent was obtained. Patient identification and proposed procedure were verified prior to the procedure by the physician, and a nurse in the patient's room. The heart rate, respiratory rate, oxygen saturations, blood pressure, adequacy of pulmonary ventilation, and response to care were monitored throughout the procedure. The physical status of the patient was reassessed after the procedure. Procedure summary: A time-out was performed. My hands were washed immediately prior to the procedure. I wore surgical cap, mask with protective eyewear, sterile gown and sterile gloves throughout the procedure. After an May[place] test was performed to ensure adequate perfusion, the RIGHT wrist was prepped using chlorhexidine scrub and draped in sterile fashion using sterile towels. The radial pulse was identified with the use of ultrasound. The wrist was positioned in the usual fashion. Anesthesia was achieved using 1% lidocaine. Using the radial arterial line kit, needle was inserted into the radial artery using ultrasound guidance. Arterial blood flow was seen to pulsate in the flash chamber. The internal guidewire was advanced easily into the radial artery. The catheter was then advanced over the wire and the needle and wire were withdrawn. The catheter was sutured into place with 1 sutures. A sterile Biopatch and Tegaderm was placed over the catheter at the insertion site. The patient tolerated the procedure without any hemodynamic compromise. At the time of procedure completion, the catheter was connected to the crystal lapper and calibrated. Appropriate waveform and blood pressure tracing was observed. Estimated blood loss: less than 5 mL. CPT: 06039 Arterial line insertion CPT: 34753 US add-on Visit Coding Pulmonary Billing Provider: PALOMO ORO MD Date of Service if different f: Aug 27, 2025 Common Visit Codes: PROCEDURE ONLY Procedure Codes: 78255-PUQBODFG LINE, 60406-KL GUIDE VASCULAR ACCESS PALOMO ORO MD Aug 27, 2025 11:27
[2025-08-27] MEDS: SODIUM BICARB 8.4% 50Meq/50ml SYR INJ ONE (11:32)
[2025-08-27] MEDS: EPINEPHrine HCL INJECTION 16 MG in D5W 5% 234 ML IV SCH (11:35)
[2025-08-27] MEDS: DEXTROSE 50% SYRINGE 50 ML IV ONE ×2 (11:41→11:56)
[2025-08-27] MEDS ORDERED: VANCOMYCIN PER PHARMACY 0 MG IV SCH (11:45)
[2025-08-27] MEDS: SODIUM BICARB 8.4% 50Meq/50ml SYR Vial IV ONE (11:45)
[2025-08-27] MEDS: VANCOMYCIN 1GM/250ML KIT 250 ML IV SCH (12:00)
[2025-08-27 12:01] LABS: Hemoglobin 9.1 g/dL (12.2-16.2)
[2025-08-27 12:02] LABS: Hematocrit 29.8 % (36.0-46.0); Mean Corpuscular Hemoglobin 28.4 pg (28.0-32.0); Mean Corpuscular Volume 93.3 fL (80.0-100.0); Nucleated Red Blood Cells % 1.0 %
[2025-08-27 12:10] LABS: Base Excess -12.6 mmol/L (-2.0-3.0)
[2025-08-27 12:17] LABS: INR 2.74 (0.9-1.15); Partial Thromboplastin Time 43.6 SEC (24.5-34.5); Prothrombin Time 26.3 sec (9.3-11.8)
[2025-08-27] MEDS: DEXTROSE (50%) 50ML SYRG IV ONE (12:52)
[2025-08-27] MEDS: HYALURONIDASE 150 UNIT/1 ML SUBCUT ONE (12:52)
[2025-08-27] MEDS: SODIUM BICARB 50mEq/50ml Vial 150 ML in D5W 5% 1,000 ML IV SCH (13:08)
[2025-08-27 13:37] LABS: Anion Gap 28 (5-15); BUN/Creatinine Ratio 8.7 (10.0-20.0); Blood Urea Nitrogen 21 mg/dL (9-23); Chloride 100 mmol/L (98-107); Glucose 97 mg/dL (74-106); Potassium 4.5 mmol/L (3.5-5.1); Sodium 141 mmol/L (136-145); Total Protein 5.8 g/dL (5.7-8.2)
[2025-08-27] MEDS: DOPamine 1600MCG/ML D5W 250 ML IV SCH (13:37)
[2025-08-27 13:42] LABS: Alanine Aminotransferase 167 U/L (7-40); Albumin 3.1 g/dL (3.2-4.8); Alkaline Phosphatase 180 U/L (46-116); Bilirubin, Total 1.9 mg/dL (0.2-1.0); Calcium 8.4 mg/dL (8.7-10.4); Carbon Dioxide 13 mmol/L (20-31)
--- NOTE | 2025-08-27 13:57 | DVHNC2 ---
Intubation Indication: Respiratory Insufficiency Prep: Preoxygenation Pretreated with: Sedation Medicated with: Other (Rocuronium) Intubation Approach: Orotracheal Intubation size: cm (7.5) Informed consent obtained: Yes Risks/benefits/alt described: Yes Notes Intubation was done without complication using glideoscope visualization under the supervision of Dr. Dickson. Date of Service: Aug 27, 2025 Billing Provider: TJ DICKSON MD Common Visit Codes: PROCEDURE ONLY GLADYS DIETZ RESIDENT Aug 27, 2025 13:57
[2025-08-27] MEDS: PIPERACILLIN-TAZOB 3.375GM 100 ML IV ONE (14:30)
[2025-08-27] MEDS: NOREPINEPHRINE 8 MG/250ML KIT 250 ML IV ONE (14:34)
[2025-08-27 14:51] LABS: Lactic Acid w/Reflex 14.4 mmol/L (0.4-2.0)
--- NOTE | 2025-08-27 14:53 | ECG ---
[facility] Test Date: 2025-08-27 Test Time: 11:22:25 Pat Name: JIMBO ROSE Department: icu Room: [address] [place] [address] A Gender: F Inbound Sales Representative: yasmani : [id number] Requested By: AMY EDMOND Order Number: [id number] Reading MD: Abdi Solano Measurements Intervals [place] Rate: 103 P: 0 ID: 0 QRS: -45 QRSD: 173 T: 121 QT: 446 QTc: 584 Interpretive Statements Atrial flutter with predominant 3:1 AV block RBBB and LAFB Abnrm T, consider ischemia, anterolateral lds Electronically Signed On 08-28-2025 9:51:16 PST by Abdi Solano Please click the below link to view image of tracing.
--- NOTE | 2025-08-27 14:56 | DVH ---
CHEST RADIOGRAPH Indication: ETT PLACEMENT Technique: Single frontal view of the chest was obtained Comparison: XY CHEST PORTABLE on DOS: 08/24/25, XY CHEST XRAY 1 VIEW on DOS: 07/30/25, XY CHEST PORTABLE on DOS: 07/29/25, XY CHEST PORTABLE on DOS: 07/28/25, XY CHEST PORTABLE on DOS: 07/27/25, XY CHEST XRAY 1 VIEW on DOS: 07/30/25 FINDINGS: Lines and Tubes: Endotracheal tube 5 cm from the emre. Nasogastric tube tip in the stomach. Left central venous catheter tip in the SVC. Tunneled right hemodialysis catheter tip in the cavoatrial junction. Lungs: Increased interstitial opacities. Pleura: Small right pleural effusion No pneumothorax. Cardiomediastinal contours: Cardiomegaly. Bones: Unremarkable IMPRESSION: 1. Lines and tubes as above. 2. Cardiomegaly. Worsening pulmonary edema.
[2025-08-27] MEDS: NOREPINEPHRINE BITARTRATE 32 MG in SODIUM CHL 0.9% 218 ML IV SCH (15:00)
--- NOTE | 2025-08-27 15:35 | DVH ---
INDICATION: Eval liver and gall bladder TECHNIQUE: Multiple real-time sonographic images were obtained of the right upper quadrant. COMPARISON: CT ABDOMEN WITHOUT CONTRAST on DOS: 03/26/25, US ABDOMEN COMPLETE SONOGRAM on DOS: 03/20/25 FINDINGS: The liver demonstrates increased echotexture without focal mass lesions. The liver measures 15.7 cm. There is no intrahepatic or extrahepatic ductal dilatation. The common duct is not visualized. The gallbladder is without evidence of stone or sludge. The gallbladder wall measures 1.2 cm and is edematous. Small volume pericholecystic fluid. The right kidney measures 10.3 cm. The right kidney is normal in contour, size, and shape. The echogenicity is normal. There is no hydronephrosis. The pancreas is not well visualized due to overlying bowel gas. IMPRESSION: Gallbladder wall thickening /edema and pericholecystic fluid. No gallstones or sludge. Findings are equivocal for acute cholecystitis. Hepatic steatosis.
--- NOTE | 2025-08-27 15:43 | DVHPNRES ---
Progress Note Date Seen: Aug 27, 2025 Resident Creating Document: GLADYS DIETZ RESIDENT Medical Necessity Reason Pt with a Central, PICC or Fol: No The following are medically ne: Central Line, Espinal Catheter Subjective Review of Systems Ms. Gold is a 74 year old female with prior medical history of hypertension, dyslipidemia, gout, hypothyroidism, \atrial fibrillation, HFpEF, COPD on 3L home O2, ESRD on hemodialysis, and bed bound for the last 5 years secondary to ankle surgery. At the time of evaluation the patient was altered and subsequently intubated, history has been taken from previous records and her daughter, Silvina, at bed side. She presented to the [facility] via EMS due to generalized weakness, nausea, and vomiting. The patient was recently hospitalized at [place] after accidentally removing her hemodialysis catheter. This was replaced at and she was discharged, however per records, chair time and medications were arranged before her discharge, thus the did not have diaylsis for over a week. Per her daughter, stated she was felt ill, was nauseous, vomiting, and had decreased appetite on 08/23. Symptoms persisted until ambulance was called on Friday 08/24 and she was brought to this institution. On initial evaluation in the ED, she was afebrile, hypotensive, and saturating 88% on room air. Initial labs significant for normocytic anemia with Hb of 6.8, hyponatremia, elevated creatinine and BUN, troponins 60, elevated anion gap, and lactic acid 0.9. UA is significant for UTI. Chest xray significant for enlarged cardiac silhouette, perihilar airspace opacitie and bibasilar airspace opacities, prominent pulmonary vasculature, bilateral pleural effusions greater in the left than the right. Abdominal/Pelvic CT significant for generalized soft tissue edema and trace bilateral pleural effusions. The patient was placed on ICU status, and started on Levophed, IV diuresis, IV steroids, IV antibiotics, and 1 PRBC was transfused. Nephrology was consulted and she was dialyzed on 08/24 and 08/26. The patient was evaluated by GI who recommend protonix use and outpatient elective endoscopy and colonoscopy. Patient was transferred to the ICU on 08/27/2025 and on initial evaluation was found to be altered, AOx1, afebrile, tachycardic, with low MAP readings despite Levophed 24 mcg, with labored breathing. Patient was subsequently intubated started on fluids, bicarbonate drip, escalated pressors, and broad spectrum antibiotics. Prior medical history: Hypertension, dyslipidemia, Atrial fibrillation, HFpEF, COPD, ESRD on hemodialysis, Bed bound Surigical history: Hemodialysis catheter placement, Abdominal abscess drainage, right knee surgery Social: Lives with daughter, Ex tobacco use with 40 pack year history with cessation 20 years ago, previous alcohol abuse (1 bottle of whiskey a day for 50 years) with cessation 6 months ago Allergies: Sulfa drugs and zinc Home medications: Albuterol sulfate, Allopurinol, Amiodarone, Apixaban, Atorvastatin, Bumetanide, Clobestasol, Fluticasone-Salmeterol, Gabapentin, Hydroxychloroquine sulfate, Lactulose, Levothyroxine, Meclizine , Ropinirole Objective vital signs Vital Sign Date Time Temp Pulse Resp B/P (MAP) Pulse Ox O2 Delivery O2 Flow Rate FiO2 08/27/25 14:21 112 30 72/51 (58) 98 30 08/27/25 04:30 98.7 98.7 08/27/25 02:37 Nasal Cannula* 2 Total Intake and Output 08/26/25 08/26/25 08/27/25 15:00 23:00 07:00 Intake Total 177.55 ml 82.50 ml 129.95 ml Output Total 10 ml 151 ml Balance 167.55 ml 82.50 ml -21.05 ml medications Current Medications Medications Dose Ordered Sig/Sravan Route Start Time Stop Time Status Last Admin Dose Admin Acetaminophen 325 mg Q4HP PRN PO 08/24/25 15:15 08/25/25 09:50 325 MG Morphine Sulfate 2 mg Q4HPRN PRN IV 08/24/25 15:45 08/27/25 02:58 2 MG Pantoprazole Sodium 40 mg BID IV 08/24/25 22:00 08/26/25 22:45 40 MG Furosemide 40 mg BIDD IV 08/25/25 06:00 08/26/25 18:19 40 MG Ipratropium [place] 0.5 mg Q6HWA NEB 08/25/25 06:00 08/27/25 11:31 0.5 MG Levalbuterol HCl 0.625 mg Q6HR NEB 08/25/25 00:00 08/27/25 11:31 0.625 MG Acetaminophen/ Hydrocodone Bitart 1 tab Q4HPRN PRN PO 08/25/25 13:45 08/26/25 17:40 1 TAB Mupirocin 1 applic BID EACHNOSTRI 08/27/25 10:00 09/01/25 09:59 Phenylephrine HCl 80 mg/Sodium Chloride 250 ml @ 7.5 mls/hr Q24H IV 08/27/25 08:30 08/27/25 10:55 7.5 MLS/HR Epinephrine HCl 250 ml @ 7.5 mls/hr Q24H IV 08/27/25 10:45 Cancel Vasopressin 20 units/Sodium Chloride 100 ml @ 9 mls/hr Q11H7M IV 08/27/25 10:45 08/27/25 10:55 9 MLS/HR Midazolam HCl 100 ml @ 1 mls/hr Q24H IV 08/27/25 10:45 08/27/25 09:56 1 MLS/HR Fentanyl Citrate 250 ml @ 2.5 mls/hr Q24H IV 08/27/25 10:45 08/27/25 09:56 2.5 MLS/HR Dopamine HCl/ Dextrose 250 ml @ 23.344 mls/ hr [id number] IV 08/27/25 11:45 08/27/25 13:37 23.344 MLS/HR Vancomycin HCl 0 ml @ 0 mls/hr PER PHARMACY IV 08/27/25 11:45 Diagnostic Test (Pha) 1 strip ACHS 08/27/25 17:00 Insulin Human Regular ACHS SC 08/27/25 17:00 Dextrose 50 ml UD PRN IV 08/27/25 11:45 Norepinephrine Bitartrate 32 mg/ Sodium Chloride 250 ml @ 0.938 mls/ hr Q24H IV 08/27/25 11:45 Epinephrine HCl 16 mg/Dextrose 250 ml @ 1.875 mls/ hr Q24H IV 08/27/25 11:45 08/27/25 11:35 1.875 MLS/HR Sodium Bicarbonate 150 ml/Dextrose 1,150 ml @ 100 mls/hr [id number] IV 08/27/25 12:30 08/27/25 13:08 100 MLS/HR Piperacillin Sod/ Tazobactam Sod 100 ml @ 25 mls/hr Q12HR IV 08/27/25 22:00 Hydrocortisone Sodium Succinate 100 mg Q12HR IV 08/27/25 15:00 Examination General: Intubated, Sedated, and mechanically ventilated HEENT: Normocephalic, atraumatic, normal reactive pupils, EOM intact, pale conjunctiva, dry moist mucous membrane, orotracheal tube in place, OG tube in place, central venous catheter is inserted in left side of neck Respiratory/pulmonary: Bilateral chest expansion, no grimacing observed on palpation, versicular murmur is heard o auscultation with bilateral lower lobe crackles , presence of dialysis catheter in right pectoral region Cardiovascular: Tachycardic Abdomen: Obese, Abdomen nondistended, normal bowel sounds, soft, no grimacing is noted on palpation Extremities: No deformities noted, right upper arm has large purple scabbing, pulses are present but decreased, 2+ bilateral lower extremity bitting edema Skin: As above, sacral edema is noted Neurological: Unable to evaluate due to sedation laboratory and microbiology Laboratory Tests 08/27/25 12:50 08/27/25 11:29 Test 08/27/25 12:50 Range/Units Serum Glucose 97 74-106 mg/dL Microbiology Date/Time Source Procedure Growth Status 08/25/25 04:50 Nose MRSA Screen - Final Methicillin Resistant S.aureus Complete 08/25/25 04:50 Urine - Espinal Port Urine Culture - Final Complete 08/24/25 13:38 Blood Blood Culture - Preliminary NO GROWTH AFTER 72 HOURS OF INCUBATION. Resulted Problem List/Assessment/Plan Problem List/Assessment/Plan Neurology # Sedated - Versed - Fentanyl #Acute metabolic encephalopathy likely due to septic shock Cardiovascular # Acute on Chronic HFpEF # Bilateral pleural effusion -Likely precipitated by fluid overload and sepsis -Chest xray: The cardiac silhouette is enlarged. The lungs demonstrate perihilar airspace opacities. Bibasilar airspace opacities, [id number]-right The pulmonary vasculature is prominent. Small bilateral pleural effusions, [id number]-right. Aortic atherosclerotic disease. There is no pneumothorax. -Echocardiogram 03/25/2025: LVEF 50%, mild concentric LVH -Furosemide 40 mg IV BID #NSTEMI likely type 2 - Troponins: 60 #Paroxysmal Atrial Fibrillation #Hypertension #Dyslipidemia Respiratory # Acute hypoxic respiratory failure # Ventilator -[facility] (08/27/2025[facility] VCAC Mode RR 30 TV 450ml, PEEP Of 5 and FiO2 of 40% # COPD, exacerbation ruled out - Ipratropium bromide - Levalbuterol GI # Acalculous Cholecystitis - Patient is NPO - Abdominal US: Gallbladder wall thickening /edema and pericholecystic fluid. No gallstones or sludge. Findings are equivocal for acute cholecystitis. - Interventional Radiology has been consulted - General surgery has been consulted - HIDA scan has been ordered GI bleed ruled out - Per GI: Protonix and outpatient endoscopy and colonoscopy # Peptic ulcer prophylaxis -Pantoprazole 40 mg IV daily # Espinal catheter placed 08/27/2025 #Complicated UTI - Ceftriaxone 08/26- 08/27 - Vancomycin (08/27-) - Zosyn (08/27-08/27) - Meropenem (08/27) - Urine culture: >100,000 CFU/mL Mixed Jennifer, >3 Randall Types, likely contaminated Nephrology #ESRD on Dialysis - Received Dialysis 08/24, 08/26 - Nephrology is on board, currently state that patient is too unstable for further HD #Acute metabolic acidosis - D5W with 3 Amps of Bicarbonate #Hyponatremia - Monitor sodium #Hypocalcemia - Monitor Infectious disease #Septic shock likely due to UTI, possibly present on admission #Lactic acidosis due to above - Ceftriaxone 08/26- 08/27 - Vancomycin (08/27-) - Zosyn (08/27-08/27) - Meropenem (08/27-) - Urine culture: >100,000 CFU/mL Mixed Jennifer, >3 Randall Types, likely contaminated - Blood cultures: Negative at 72 hours of growth - New blood cultures have been ordered - Currently maxed out on: Levophed, NeoSyn, Vasopressin, Epinephrine, Dopamine - Hydrocortisone added Hem/onc #Acute normocytic anemia, likely due to blood loss - S/p 1 PRBC tranfusion Endocrine #Hypothyroidism #Morbid obesity, BMI 45.7 MSK #Functional quadriplegia DVT prophylaxis: SCD PUD prophylaxis: Protonix Lines -Left IJ Central line: 08/27/2025 -Espinal catheter : 08/27/2025 -Arterial line: 08/27/2025 -ET tube: 08/27/2025 Drips during [facility] ventilation Versed Fentanyl Levophed 30 mcg Neosyn 180 Epinephrine 10 mcg Vasopressin 0.03 Dopamine Hydrocortisone Patient has very poor prognosis. All information pertaining to exam findings, imaging, treatment, and prognosis have been relayed to the her daughter, Silvina. All questions have been answered. Critical care time 83 minutes, central line was placed and patient was intubated. Code status discussed greater than 20 minutes: DNR . Family at bedside explained about the condition of the patient Plan discussed with Dr. Herbert Plan discussed with: Daughter, Other (Nurse) My Orders My Orders Orders - GLADYS DIETZ RESIDENT Procedure Category Date Status Time Sodium Chl 0.9% PHA 08/27/25 In Process (So... W/Vasopressin 10:45 Midazolam Drip 100 PHA 08/27/25 In Process Mg/100ml Ns (Versed D 10:45 Fentanyl Drip PHA 08/27/25 In Process 2500mcg/250mlns 10:45 Rass Sedation Scale EBONY 08/27/25 In Process 10:45 Vancomycin Per PHA 08/27/25 In Process Pharmacy 11:45 Blood Culture ETHAN 08/27/25 In Process 11:39 D5w 5% (Dextrose 5%) PHA 08/27/25 In Process W/Sodium Bicarb 50m 12:30 Piperacillin-Tazob PHA 08/27/25 In Process 3.375gm (Zosyn 3.375g 22:00 Code Status CODE 08/27/25 Transmitted 14:28 Hydrocortisone PHA 08/27/25 In Process Succinate Inj 15:00 Abdomen Limited US 08/27/25 Resulted 14:48 Dietary Evaluation Review Comments: Nutrition Recommendation: 1) Consider Renal standard + cardiac diet 2) If PO intake <50%, consider Nepro Carbsteady 240ml BID 3) Nephro-kishore 1 tab daily 4) Monitor PO intake, lab values, weight trend, and I/O Expected Outcomes/Goals: Wound to improve Intake to meet >75% estimated needs FU 3-5 days GLADYS DIETZ RESIDENT Aug 27, 2025 15:43
--- NOTE | 2025-08-27 15:46 | DVHNC2 ---
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), Name of rebar bender (Burt Cornell PGY2) Indication: Hypotension, Inability to obtain IV Room prepared for procedure: Yes Hydrometallurgical Engineer performed hand hygien: Yes Maximal sterile barrier precau: Mask/Eye shield, Sterile gown, Cap, Sterlie gloves, Large sterlie drape Skin Preparation: Chlorhexidine gluconate Skin preparation completely dr: Yes Insertion site: Left, Internal jugular Central line catheter type: [id number]-[id number] dialysis Number of lumens: 3 Central line exchanged over a: No Antiseptic ointment applied to: Yes Post Assessment: Chest X-Ray, Proper placement, No Pneumothorax Informed consent obtained: Yes (Two dr consent ) Risks/benefits/alt described: Yes Notes Central line was placed by Dr. Cornell, PGY-2, with proper sterile protocols under the supervision of Dr. Munroe. Date of Service: Aug 27, 2025 Billing Provider: REBA MUNROE MD Common Visit Codes: PROCEDURE ONLY Procedure Codes: 62799-SSSKGD NON-TUNNEL CV CATH GLADYS DIETZ RESIDENT Aug 27, 2025 15:46 REBA MUNROE MD Aug 28, 2025 21:19
[2025-08-27] MEDS: HYDROCORTISONE SOD SUCC 100 MG/2ML INJ VIAL IV SCH (16:43)
[2025-08-27] MEDS: VANCOMYCIN 1GM/250ML KIT 250 ML IV ONE (16:56)
[2025-08-27] MEDS: InsuLIN REG 1unit/0.01ml Soln (100units/ml) SC SCH (17:00)
--- NOTE | 2025-08-27 17:54 | DVHPN2 ---
Progress Note - Dictate Date Seen: Aug 27, 2025 Has the PT tested + for MRSA If YES, has PT been informed?: No Medical Necessity Reason Pt with a Central, PICC or Fol: No The following are medically ne: Central Line, Espinal Catheter Subjective Critically ill On full life support Unresponsive vital signs Vital Sign Date Time Temp Pulse Resp B/P (MAP) Pulse Ox O2 Delivery O2 Flow Rate FiO2 08/27/25 16:43 62/45 08/27/25 16:30 103 20 76 08/27/25 16:05 30 08/27/25 16:00 98.4 98.4 08/27/25 08:00 Nasal Cannula* 2 Total Intake and Output 08/26/25 08/26/25 08/27/25 15:00 23:00 07:00 Intake Total 177.55 ml 82.50 ml 129.95 ml Output Total 10 ml 151 ml Balance 167.55 ml 82.50 ml -21.05 ml medications Current Medications Medications Dose Ordered Sig/Sravan Route Start Time Stop Time Status Last Admin Dose Admin Acetaminophen 325 mg Q4HP PRN PO 08/24/25 15:15 08/25/25 09:50 325 MG Morphine Sulfate 2 mg Q4HPRN PRN IV 08/24/25 15:45 08/27/25 02:58 2 MG Pantoprazole Sodium 40 mg BID IV 08/24/25 22:00 08/26/25 22:45 40 MG Furosemide 40 mg BIDD IV 08/25/25 06:00 08/26/25 18:19 40 MG Ipratropium [place] 0.5 mg Q6HWA [facility] 08/25/25 06:00 08/27/25 11:31 0.5 MG Levalbuterol HCl 0.625 mg Q6HR NEB 08/25/25 00:00 08/27/25 11:31 0.625 MG Acetaminophen/ Hydrocodone Bitart 1 tab Q4HPRN PRN PO 08/25/25 13:45 08/26/25 17:40 1 TAB Mupirocin 1 applic BID EACHNOSTRI 08/27/25 10:00 09/01/25 09:59 08/27/25 10:00 1 APPLIC Phenylephrine HCl 80 mg/Sodium Chloride 250 ml @ 7.5 mls/hr Q24H IV 08/27/25 08:30 08/27/25 10:55 7.5 MLS/HR Epinephrine HCl 250 ml @ 7.5 mls/hr Q24H IV 08/27/25 10:45 Cancel Vasopressin 20 units/Sodium Chloride 100 ml @ 9 mls/hr Q11H7M IV 08/27/25 10:45 08/27/25 10:55 9 MLS/HR Midazolam HCl 100 ml @ 1 mls/hr Q24H IV 08/27/25 10:45 08/27/25 09:56 1 MLS/HR Fentanyl Citrate 250 ml @ 2.5 mls/hr Q24H IV 08/27/25 10:45 08/27/25 09:56 2.5 MLS/HR Dopamine HCl/ Dextrose 250 ml @ 23.344 mls/ hr [id number] IV 08/27/25 11:45 08/27/25 16:43 93.375 MLS/HR Vancomycin HCl 0 ml @ 0 mls/hr PER PHARMACY IV 08/27/25 11:45 Diagnostic Test (Pha) 1 strip ACHS 08/27/25 17:00 Insulin Human Regular ACHS SC 08/27/25 17:00 Dextrose 50 ml UD PRN IV 08/27/25 11:45 Norepinephrine Bitartrate 32 mg/ Sodium Chloride 250 ml @ 0.938 mls/ hr Q24H IV 08/27/25 11:45 08/27/25 15:00 14.063 MLS/HR Epinephrine HCl 16 mg/Dextrose 250 ml @ 1.875 mls/ hr Q24H IV 08/27/25 11:45 08/27/25 11:35 1.875 MLS/HR Sodium Bicarbonate 150 ml/Dextrose 1,150 ml @ 100 mls/hr [id number] IV 08/27/25 12:30 08/27/25 13:08 100 MLS/HR Hydrocortisone Sodium Succinate 100 mg Q12HR IV 08/27/25 15:00 08/27/25 16:43 100 MG Meropenem 50 ml @ 17 mls/hr Q12HR IV 08/27/25 22:00 Future hold objective On mechanical ventilation HEENT: No evidence of JVD, no oral ulcers. Pulmonary: Decreased air entry bilaterally Cardiovascular distant heart sounds, irregular rate Abdomen: Bowel sounds barely audible, distended Skin: Multiple ecchimosis Neurological: Unresponsive Extremities: 2+ pitting edema lower extreme Dialysis access right upper chest CVC laboratory and microbiology Laboratory Tests 08/27/25 12:50 08/27/25 11:29 Test 08/27/25 12:50 Range/Units Serum Glucose 97 74-106 mg/dL Problem List Assessment: 1. End-stage renal disease on hemodialysis 2. Septic shock requiring maximum doses of 3 vasopressors 3. Severe lactic acidosis 3. Acute hypoxic respiratory failure 6. Bedridden status 7. Protein malnutrition 8. 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 she did not pickling grader the phone In the mean time she will continue full hemodynamic support Broad-spectrum antibiotics Too unstable for HD Dietary Evaluation Review Comments: Nutrition Recommendation: 1) Consider Renal standard + cardiac diet 2) If PO intake <50%, consider Nepro Carbsteady 240ml BID 3) Nephro-kishore 1 tab daily 4) Monitor PO intake, lab values, weight trend, and I/O Expected Outcomes/Goals: Wound to improve Intake to meet >75% estimated needs FU 3-5 days Plan discussed with: Other DOOM JOY MD Aug 27, 2025 17:54
[2025-08-27] MEDS: ACCU-CHEK COMFORT CURVE STRIP VI SCH (18:06)
[2025-08-27] MEDS: MEROPENEM 500MG IVPB 50 ML IV SCH (18:51)
--- NOTE | 2025-08-27 19:02 | DVHINCON2 ---
Consultation - Surgical Date Seen: Aug 27, 2025 Referring Physician Reason for Consultation Acalculous cholecystitis History of Present Illness History of Present Illness Mrs. Gold is a 74-year-old female who came in on August 24 with general malaise. I was consulted for the possibility of acute cholecystitis. Patient was on the regular floor and then got transferred to the ICU today due to worsening condition. She is currently intubated and sedated and on 5 vasopressors. Past Medical/Surgical History Past Medical/Surgical History Past medical history: Hypertension, dyslipidemia, persistent atrial fibrillation (chads Vasc 5) currently on apixaban except for the past week, diastolic CHF (HFpEF, LVEF 50%) with RVSP 50 mmHg and mild-mod TR, COPD/asthma on home oxygen (2.5-3 L/min), end-stage renal disease on hemodialysis session for the past six months, skin cancer status postop were no recurrence, bed-bound for the past five years after ankle fracture (does not recall if he had surgery) Surgical history: Hemodialysis catheter placement, abscess in abdomen status post failed drainage (per patient it resolved by itself), right knee surgery Family history: Sister had unknown cancer, sister also had heart disease Social history: Lives in [place] with daughter (next of kin). Ex tobacco abuse 40 pack-year history of smoking) quit 20 years ago. 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 Denies current tobacco and other drug abuse. Allergies: Sulfa drugs, zinc oxide Home medication: Does not recall. Per EMR amiodarone, levothyroxine, allopurinol, midodrine, potassium chloride, fluticasone salmeterol, lactulose, gabapentin, pantoprazole, atorvastatin, bumetanide, apixaban, clobetasol, hydroxychloroquine, albuterol, allopurinol, meclizine. Allergies and medications Allergies: Coded Allergies: Zinc Oxide (Verified Allergy, Mild, 03/07/25) Sulfa Antibiotics (Verified Allergy, Unknown, 01/16/22) Home Meds Active Scripts Azithromycin (ZITHROMAX TABLET) 250 Mg Tb, 250 MG PO DAILY for 5 Days, #6 TAB take 2 tabs on first day, then 1 tab daily x 4 days Prov:TORRIE BUTLER DO 08/10/25 Prednisone (Prednisone) 20 Mg Tab, 20 MG PO BID for 5 Days, #10 TAB Prov:VÍCTOR HAMILTON [employer] OPERATOR 01/20/22 Reported Medications Amiodarone HCl (Amiodarone HCl) 200 Mg Tab, 1 TAB PO BID 03/20/25 Levothyroxine Sodium (Levothyroxine Sodium) 137 Mcg Tab, 1 TAB PO DAILY 03/20/25 Ropinirole Hydrochloride (Ropinirole Hcl) 0.25 Mg Tab, 1 TAB PO BID for 90 Days, #180 02/26/25 Midodrine Hcl (Midodrine Hcl) 10 Mg Tab, 1 TAB PO BID for 90 Days, #180 02/26/25 Potassium Chloride (Potassium Chloride ER) 20 Meq Tab, 1 TAB PO BID for 90 Days, #180 02/26/25 Fluticasone-Salmeterol (Fluticasone Propionate/SA 500-50 Mcg/Dose) 1 Aer Aer, 1 PUFF PO BID for 30 Days, #60 02/26/25 Lactulose (Lactulose) 10 Gm/15 Ml Yoselyn, 15 ML PO DAILY for 30 Days, #450 02/26/25 Gabapentin (Gabapentin) 300 Mg Cap, 300 MG PO BID 11/08/24 Pantoprazole Sodium Sesquihydr (Pantoprazole Sodium) 40 Mg Tab, 1 TAB PO DAILY 11/08/24 Atorvastatin Calcium (ATORVASTATIN CALCIUM) 20 Mg Tab, 1 TAB PO DAILY 11/08/24 Bumetanide (Bumetanide) 2 Mg Tab, 1 TAB PO BID 11/08/24 Apixaban Base (ELIQUIS) 2.5 Mg Tab, 1 TAB PO BID 11/08/24 Clobetasol Propionate (Clobetasol Propionate) 0.05 % Oin, 1 APPLIC TOP BID, #15 GRAMS 01/17/22 Hydroxychloroquine Sulfate (PLAQUENIL) 200 Mg Tab, 1 TAB PO DAILY, #180 TAB 3 Refills 01/17/22 Fluticasone-Salmeterol (Advair Diskus 500/50) 1 Puff Ih, 1 PUFF INH BID, #1 INHALER 5 Refills 01/17/22 Albuterol Sulfate (VENTOLIN MDI) 90 Mcg Ih, 90 MCG IN Q6HP for 30 Days, MCG 01/17/22 Allopurinol (Allopurinol) 100 Mg Tab, 100 MG PO DAILY for 30 Days, MG 4/23/22 Meclizine HCl (Meclizine 25) 25 Mg Tab, 25 MG PO BID, TAB 01/17/22 Review of systems Review of Systems: Deferred Examination Vital signs Vital Signs Date Time Temp Pulse Resp B/P (MAP) Pulse Ox O2 Delivery O2 Flow Rate FiO2 08/27/25 18:30 102 30 52/42 (45) 81 51/42 (45) 08/27/25 18:05 30 08/27/25 16:00 98.4 98.4 08/27/25 08:00 Nasal Cannula* 2 Medications Current Medications Medications (Trade) Dose Ordered Sig/Sravan Route PRN Reason Start Time Stop Time Status Last Admin Ceftriaxone Sodium 50 ml @ 100 mls/hr DAILY@09 IV 08/27/25 09:00 08/27/25 09:07 DC Mupirocin (Bactroban 2% Ointment) 1 applic BID EACHNOSTRI 08/26/25 22:00 08/26/25 22:40 DC Mupirocin (Bactroban 2% Ointment) 1 applic BID EACHNOSTRI 08/27/25 10:00 09/01/25 09:59 08/27/25 10:00 Phenylephrine HCl 80 mg/Sodium Chloride 250 ml @ 7.5 mls/hr Q24H IV 08/27/25 08:30 08/27/25 10:55 Cefepime HCl 50 ml @ 12.5 mls/hr DAILY IV 08/27/25 10:00 08/27/25 11:39 DC Epinephrine HCl 250 ml @ 7.5 mls/hr Q24H IV 08/27/25 10:45 Cancel Vasopressin 20 units/Sodium Chloride 100 ml @ 9 mls/hr Q11H7M IV 08/27/25 10:45 08/27/25 10:55 Midazolam HCl 100 ml @ 1 mls/hr Q24H IV 08/27/25 10:45 08/27/25 09:56 Fentanyl Citrate 250 ml @ 2.5 mls/hr Q24H IV 08/27/25 10:45 08/27/25 09:56 Dopamine HCl/ Dextrose 250 ml @ 23.344 mls/ hr [id number] IV 08/27/25 11:45 08/27/25 16:43 Vancomycin HCl 0 ml @ 0 mls/hr PER PHARMACY IV 08/27/25 11:45 Piperacillin Sod/ Tazobactam Sod 100 ml @ 25 mls/hr Q12HR IV 08/27/25 22:00 08/27/25 14:04 DC Diagnostic Test (Pha) (Accu-Chek Comfort Curve T) 1 strip ACHS 08/27/25 17:00 08/27/25 18:06 Insulin Human Regular (InsuLIN R) ACHS SC 08/27/25 17:00 Dextrose 50 ml UD PRN IV Blood Sugar LESS THAN 60 08/27/25 11:45 Norepinephrine Bitartrate 32 mg/ Sodium Chloride 250 ml @ 0.938 mls/ hr Q24H IV 08/27/25 11:45 08/27/25 15:00 Epinephrine HCl 16 mg/Dextrose 250 ml @ 1.875 mls/ hr Q24H IV 08/27/25 11:45 08/27/25 11:35 Vancomycin HCl 250 ml @ 250 mls/hr Q1H IV 08/27/25 12:00 08/27/25 13:59 DC 08/27/25 13:00 Sodium Bicarbonate 150 ml/Dextrose 1,150 ml @ 100 mls/hr [id number] IV 08/27/25 12:30 08/27/25 13:08 Piperacillin Sod/ Tazobactam Sod 100 ml @ 25 mls/hr Q12HR IV 08/27/25 22:00 08/27/25 16:42 DC Hydrocortisone Sodium Succinate (Solu-CORTEF INJECTION) 100 mg Q12HR IV 08/27/25 15:00 08/27/25 16:43 Metronidazole 100 ml @ 100 mls/hr Q8HR IV 08/27/25 16:00 08/27/25 16:56 DC Meropenem 50 ml @ 17 mls/hr Q12HR IV 08/27/25 22:00 08/27/25 17:58 DC Meropenem 50 ml @ 17 mls/hr Q12HR IV 08/27/25 18:00 08/27/25 18:51 Laboratory Labs Test 08/27/25 18:02 08/27/25 16:08 08/27/25 12:50 08/27/25 12:06 Range/Units POC Glucose 74 70-106 mg/dl Lactic Acid Level > 15.5 *H 0.4-2.0 mmol/L Sodium Level 141 # 136-145 mmol/L Potassium Level 4.5 3.5-5.1 mmol/L Chloride Level 100 98-107 mmol/L Carbon Dioxide Level 13 L 20-31 mmol/L Anion Gap 28 H 5-15 Blood Urea Nitrogen 21 9-23 mg/dL Creatinine 2.41 H 0.550-1.02 mg/dL Glomerular Filtration Rate Calc 20 >90 mL/min BUN/Creatinine Ratio 8.7 L 10.0-20.0 Serum Glucose 97 74-106 mg/dL Calcium Level 8.4 L 8.7-10.4 mg/dL Magnesium Level 2.2 1.6-2.6 mg/dL Total Bilirubin 1.9 H 0.2-1.0 mg/dL Aspartate Amino Transferase (AST) 775 H 13-40 U/L Alanine Aminotransferase (ALT) 167 H 7-40 U/L Alkaline Phosphatase 180 H 46-116 U/L Total Protein 5.8 5.7-8.2 g/dL Albumin 3.1 L 3.2-4.8 g/dL Blood Gas Specimen Type Arterial Blood Gas Sample Site Arterial line Blood Gas Patient Temperature 37.0 Arterial Blood Date Drawn [id number] Arterial Blood pH 7.264 L 7.350-7.450 Arterial Blood Partial Pressure CO2 29.7 L 32.0-45.0 mmHg Arterial Blood Partial Pressure O2 148.6 H 83.0-108.0 mmHg Arterial Blood HCO3 13.1 L 21.0-28.0 mmol/L Arterial Blood Oxygen Saturation 98.4 H 94.0-98.0 % Arterial Blood Base Excess -12.6 L -2.0-3.0 mmol/L Arterial Blood Oxyhemoglobin 97.3 94.0-98.0 % Arterial Blood Carboxyhemoglobin 1.1 0.5-1.5 % Arterial Blood Methemoglobin 0.0 0.0-1.5 % Arterial Blood Deoxyhemoglobin 1.6 0.0-5.0 % [place] Test N/a Blood Gas Total Hemoglobin 9.00 L 12.0-16.0 g/dL Blood Gas Set Respiration Rate 30.0 Blood Gas Modality Vent - ac FiO2 % 40.0 Blood Gas Tidal Volume 500.0 Blood Gas PEEP or CPAP 5.0 Test 08/27/25 11:29 08/27/25 10:48 08/25/25 05:37 08/25/25 04:50 Range/Units White Blood Count 22.9 #H 4.4-10.8 10^3/uL Red Blood Count 3.20 L 4.0-5.20 10^6/uL Hemoglobin 9.1 L 12.2-16.2 g/dL Hematocrit 29.8 #L 36.0-46.0 % Mean Corpuscular Volume 93.3 # 80.0-100.0 fL Mean Corpuscular Hemoglobin 28.4 28.0-32.0 pg Mean Corpuscular Hemoglobin Concent 30.5 L 32.0-36.0 g/dL Red Cell Distribution Width 21.5 H 11.8-14.3 % Platelet Count 166 140-450 10^3/uL Mean Platelet Volume 7.2 6.9-10.8 fL Neutrophils (%) (Auto) 93.7 H 37.0-80.0 % Lymphocytes (%) (Auto) 3.3 L 10.0-50.0 % Monocytes (%) (Auto) 2.7 0.0-12.0 % Eosinophils (%) (Auto) 0.2 0.0-7.0 % Basophils (%) (Auto) 0.1 0.0-2.0 % Neutrophils # (Auto) 21.5 H 1.6-8.6 10 ^3/uL Lymphocytes # (Auto) 0.8 0.4-5.4 10 ^3/uL Monocytes # (Auto) 0.6 0-1.3 10 ^3/uL Eosinophils # (Auto) 0.1 0-0.8 10 ^3/uL Basophils # (Auto) 0 0-0.2 10 ^3/uL Nucleated Red Blood Cells 1.0 % Prothrombin Time 26.3 H 9.3-11.8 sec Prothrombin Time INR 2.74 H 0.9-1.15 Activated Partial Thromboplast Time 43.6 H 24.5-34.5 SEC B-Type Natriuretic Peptide 1769.31 0-100 pg/mL Blood Gas Critical Value Read Back Yes Blood Gas Notified Whom maria del carmen Devries Blood Gas Notified Time [id number] Blood Gas Notified By Rich ashraf Differential Total Cells Counted 100.0 100 Neutrophils % (Manual) 93 H 37.0-80.0 Band Neutrophils % (Manual) 0 Lymphocytes % (Manual) 7 L 10.0-50.0 Monocytes % (Manual) 0 0-12 Eosinophils % (Manual) 0 0-7 Basophils % (Manual) 0 0.0-2.0 Metamyelocytes % (manual) 0 Myelocytes % (Manual) 0 Promyelocytes % (Manual) 0 Blast Cells % (Manual) 0 Reactive Lymphocytes 0 Platelet Estimate Adequate Urine Color Yellow Yellow Urine Clarity Cloudy H Clear Urine pH 5.5 5.0-9.0 Urine Specific [place] 1.021 1.001-1.035 Urine Protein 1+ H Negative Urine Ketones Trace Negative Urine Blood 2+ H Negative /uL Urine Nitrite Negative Negative Urine Bilirubin Negative Negative Urine Urobilinogen 2 H Negative mg/dL Urine Leukocyte Esterase 2+ Negative /uL Urine RBC 52 0 - 4 /hpf Urine WBC Clumps Present None Seen /hpf Urine Microscopic WBC 5984 H 0-5 /HPF Urine Squamous Epithelial Cells Mod <5 /hpf Urine Bacteria Many H None Seen /hpf Urine Glucose Normal Normal mg/dL Urine Opiates Screen Neg NEGATIVE Urine Fentanyl Screen Neg NEGATIVE Urine Barbiturates Screen Neg NEGATIVE Urine Phencyclidine Screen Neg NEGATIVE Urine Amphetamines Screen Neg NEGATIVE Urine Benzodiazepines Screen Neg NEGATIVE Urine Cocaine Screen Neg NEGATIVE Urine Cannabinoids Screen Neg NEGATIVE Test 08/24/25 20:00 08/24/25 19:11 08/24/25 13:29 Range/Units Reticulocyte Count (auto) 2.15 H 0.5-1.5 % Blood Gas Liter Flow 2.00 Anisocytosis (manual) Moderate Haptoglobin 46 42-346 mg/dL Hemoglobin A1c < 3.8 <5.7 % A1C Phosphorus Level 5.9 H 2.4-5.1 mg/dL Iron Level 51 50-170 ug/dL Total Iron Binding Capacity 110 L 250-425 ug/dL Percent Iron Saturation 46.4 15-50 % Ferritin 595.0 H 10-291 ng/mL Troponin I High Sensitivity 60 *H </=34 ng/L Triglycerides Level 73 < 150 mg/dL Cholesterol Level 65 < 200 mg/dL LDL Cholesterol 20 < 100 mg/dL HDL Cholesterol 20 L 40-59 mg/dL Lipase 15 12-53 U/L Vitamin B12 Level 1033 H 211-911 pg/mL Vitamin D 25-Hydroxy 62.2 30.0-100 ng/mL Folic Acid 9.29 >5.38 ng/mL Thyroid Stimulating Hormone (TSH) 1.84 0.55-4.78 uIU/mL Hepatitis B Surface Antigen Negative Negative Microbiology Date/Time Source Procedure Growth Status 08/25/25 04:50 Nose MRSA Screen - Final Methicillin Resistant S.aureus Complete 08/25/25 04:50 Urine - [place] Urine Culture - Final Complete 08/24/25 13:38 Blood Blood Culture - Preliminary NO GROWTH AFTER 72 HOURS OF INCUBATION. Resulted Examination: GENERAL:Normal (Intubated and sedated), HEENT:Abnormal (ETT/OG tube in place), LUNGS:Normal (Symmetric expansion), ABDOMEN:Normal (Nondistended, soft, depressible, no grimacing, no scars), :Abnormal (Espinal in place with murky urine) Problem List/Assessment/Plan Problems: (1) Acute acalculous cholecystitis (2) UTI (urinary tract infection) Assessment and Plan Mrs. Gold is a 74-year-old female who presented to the hospital on July [id number] with nonspecific symptoms. Upon reviewing labs and imaging since arrival, UA was positive, and her urine culture was positive for over [id number] colony-forming units. She has been in the hospital in the past for ESBL E coli. Patient only received a dose of azithromycin on the , no other antibiotics were given until the 25 of September. I believe this is what contributed to her septic picture, and then she subsequently developed acute acalculous cholecystitis. Ultrasound shows pericholecystic fluid and gallbladder wall edema, without any stones. Patient is currently being treated with Merrem, which is appropriate given her past susceptibilities for her urine culture. In regards to the acute calculous cholecystitis no surgical intervention is indicated at this point given that she is on 5 vasopressors, and she would not be able to tolerate a surgery. Patient will benefit from bere tube placement. Plan discussed with Plan discussed with: Other (Nurse, ICU team) Visit Coding Surgery Date of Service if different f: Aug 27, 2025 Billing Provider: BEVERLY JONES MD Surgery Visit Codes: 50374 - INP CONSULT <110 MIN BEVERLY JONES MD Aug 27, 2025 19:02
[2025-08-27] MEDS: DOPamine 3200MCG/ML 250 ML IV SCH (21:57)
[2025-08-27] MEDS ORDERED: MEROPENEM 500MG IVPB 50 ML IV SCH (22:00)
[2025-08-27] MEDS ORDERED: PIPERACILLIN-TAZOB 3.375GM 100 ML IV SCH ×2 (22:00)
[2025-08-27] MEDS: DEXTROSE (50%) 50ML SYRG IV PRN (22:31)
[2025-08-28] VITALS: PULSE 30; RESP 30; O2SAT 69
[2025-08-28 00:19] VITALS: RESP 30
--- NOTE | 2025-08-28 09:04 | DVHDSRES ---
Discharge Summary Date of Admission Resident Creating Document: GLADYS DIETZ RESIDENT Aug 24, 2025 at 15:01 Date of Discharge: Aug 27, 2025 Admitting Diagnosis Acute on Chronic Diastolic Heart failure Wounds: The patient's BUE are noted with intact purple ecchymotic tissue and some scattered areas of stable, dry, eschar. The right mammary also noted with dry xerotic erythema under stable black eschar (possible abrasion). These areas are asymptomatic to the patient and left ROLAN at this time. Patient's right posterior upper thigh observed with a 1.5x1.5x0.5cm open partial-thickness skin tear/wound with dry,dusky red wound base, isabelle tissue is pink, no exudate/odor, periwound is pink/dry. Labs/Diagnostic Data: Laboratory Results Test 08/27/25 23:38 08/27/25 16:08 08/27/25 12:50 08/27/25 12:06 POC Glucose 259 mg/dl (70-106) Lactic Acid Level > 15.5 mmol/L (0.4-2.0) Sodium Level 141 mmol/L (136-145) Potassium Level 4.5 mmol/L (3.5-5.1) Chloride Level 100 mmol/L (98-107) Carbon Dioxide Level 13 mmol/L (20-31) Anion Gap 28 (5-15) Blood Urea Nitrogen 21 mg/dL (9-23) Creatinine 2.41 mg/dL (0.550-1.02) Glomerular Filtration Rate Calc 20 mL/min (>90) BUN/Creatinine Ratio 8.7 (10.0-20.0) Serum Glucose 97 mg/dL (74-106) Calcium Level 8.4 mg/dL (8.7-10.4) Magnesium Level 2.2 mg/dL (1.6-2.6) Total Bilirubin 1.9 mg/dL (0.2-1.0) Aspartate Amino Transferase (AST) 775 U/L (13-40) Alanine Aminotransferase (ALT) 167 U/L (7-40) Alkaline Phosphatase 180 U/L (46-116) Total Protein 5.8 g/dL (5.7-8.2) Albumin 3.1 g/dL (3.2-4.8) Blood Gas Specimen Type Arterial Blood Gas Sample Site Arterial line Blood Gas Patient Temperature 37.0 Arterial Blood Date Drawn [id number] Arterial Blood pH 7.264 (7.350-7.450) Arterial Blood Partial Pressure CO2 29.7 mmHg (32.0-45.0) Arterial Blood Partial Pressure O2 148.6 mmHg (83.0-108.0) Arterial Blood HCO3 13.1 mmol/L (21.0-28.0) Arterial Blood Oxygen Saturation 98.4 % (94.0-98.0) Arterial Blood Base Excess -12.6 mmol/L (-2.0-3.0) Arterial Blood Oxyhemoglobin 97.3 % (94.0-98.0) Arterial Blood Carboxyhemoglobin 1.1 % (0.5-1.5) Arterial Blood Methemoglobin 0.0 % (0.0-1.5) Arterial Blood Deoxyhemoglobin 1.6 % (0.0-5.0) Mayco Test N/a Blood Gas Total Hemoglobin 9.00 g/dL (12.0-16.0) Blood Gas Set Respiration Rate 30.0 Blood Gas Modality Vent - ac FiO2 % 40.0 Blood Gas Tidal Volume 500.0 Blood Gas PEEP or CPAP 5.0 Test 08/27/25 11:29 08/27/25 10:48 08/25/25 05:37 08/25/25 04:50 White Blood Count 22.9 10^3/uL (4.4-10.8) Red Blood Count 3.20 10^6/uL (4.0-5.20) Hemoglobin 9.1 g/dL (12.2-16.2) Hematocrit 29.8 % (36.0-46.0) Mean Corpuscular Volume 93.3 fL (80.0-100.0) Mean Corpuscular Hemoglobin 28.4 pg (28.0-32.0) Mean Corpuscular Hemoglobin Concent 30.5 g/dL (32.0-36.0) Red Cell Distribution Width 21.5 % (11.8-14.3) Platelet Count 166 10^3/uL (140-450) Mean Platelet Volume 7.2 fL (6.9-10.8) Neutrophils (%) (Auto) 93.7 % (37.0-80.0) Lymphocytes (%) (Auto) 3.3 % (10.0-50.0) Monocytes (%) (Auto) 2.7 % (0.0-12.0) Eosinophils (%) (Auto) 0.2 % (0.0-7.0) Basophils (%) (Auto) 0.1 % (0.0-2.0) Neutrophils # (Auto) 21.5 10 ^3/uL (1.6-8.6) Lymphocytes # (Auto) 0.8 10 ^3/uL (0.4-5.4) Monocytes # (Auto) 0.6 10 ^3/uL (0-1.3) Eosinophils # (Auto) 0.1 10 ^3/uL (0-0.8) Basophils # (Auto) 0 10 ^3/uL (0-0.2) Nucleated Red Blood Cells 1.0 % Prothrombin Time 26.3 sec (9.3-11.8) Prothrombin Time INR 2.74 (0.9-1.15) Activated Partial Thromboplast Time 43.6 SEC (24.5-34.5) B-Type Natriuretic Peptide 1769.31 pg/mL (0-100) Blood Gas Critical Value Read Back Yes Blood Gas Notified Whom maria del carmen Devries Blood Gas Notified Time [id number] Blood Gas Notified By Rich ashraf Differential Total Cells Counted 100.0 (100) Neutrophils % (Manual) 93 (37.0-80.0) Band Neutrophils % (Manual) 0 Lymphocytes % (Manual) 7 (10.0-50.0) Monocytes % (Manual) 0 (0-12) Eosinophils % (Manual) 0 (0-7) Basophils % (Manual) 0 (0.0-2.0) Metamyelocytes % (manual) 0 Myelocytes % (Manual) 0 Promyelocytes % (Manual) 0 Blast Cells % (Manual) 0 Reactive Lymphocytes 0 Platelet Estimate Adequate Urine Color Yellow (Yellow) Urine Clarity Cloudy (Clear) Urine pH 5.5 (5.0-9.0) Urine Specific [place] 1.021 (1.001-1.035) Urine Protein 1+ (Negative) Urine Ketones Trace (Negative) Urine Blood 2+ /uL (Negative) Urine Nitrite Negative (Negative) Urine Bilirubin Negative (Negative) Urine Urobilinogen 2 mg/dL (Negative) Urine Leukocyte Esterase 2+ /uL (Negative) Urine RBC 52 /hpf (0 - 4) Urine WBC Clumps Present /hpf (None Seen) Urine Microscopic WBC 5984 /HPF (0-5) Urine Squamous Epithelial Cells Mod /hpf (<5) Urine Bacteria Many /hpf (None Seen) Urine Glucose Normal mg/dL (Normal) Urine Opiates Screen Neg (NEGATIVE) Urine Fentanyl Screen Neg (NEGATIVE) Urine Barbiturates Screen Neg (NEGATIVE) Urine Phencyclidine Screen Neg (NEGATIVE) Urine Amphetamines Screen Neg (NEGATIVE) Urine Benzodiazepines Screen Neg (NEGATIVE) Urine Cocaine Screen Neg (NEGATIVE) Urine Cannabinoids Screen Neg (NEGATIVE) Test 08/24/25 20:00 08/24/25 19:11 08/24/25 13:29 Reticulocyte Count (auto) 2.15 % (0.5-1.5) Blood Gas Liter Flow 2.00 Anisocytosis (manual) Moderate Haptoglobin 46 mg/dL (42-346) Hemoglobin A1c < 3.8 % A1C (<5.7) Phosphorus Level 5.9 mg/dL (2.4-5.1) Iron Level 51 ug/dL (50-170) Total Iron Binding Capacity 110 ug/dL (250-425) Percent Iron Saturation 46.4 % (15-50) Ferritin 595.0 ng/mL (10-291) Troponin I High Sensitivity 60 ng/L (</=34) Triglycerides Level 73 mg/dL (< 150) Cholesterol Level 65 mg/dL (< 200) LDL Cholesterol 20 mg/dL (< 100) HDL Cholesterol 20 mg/dL (40-59) Lipase 15 U/L (12-53) Vitamin B12 Level 1033 pg/mL (211-911) Vitamin D 25-Hydroxy 62.2 ng/mL (30.0-100) Folic Acid 9.29 ng/mL (>5.38) Thyroid Stimulating Hormone (TSH) 1.84 uIU/mL (0.55-4.78) Hepatitis B Surface Antigen Negative (Negative) Other Laboratory Tests 08/27/25 12:50 08/27/25 11:29 Brief Hx & Hospital Course: Ms. Gold is a 74 year old female with prior medical history of hypertension, dyslipidemia, gout, hypothyroidism, \\atrial fibrillation, HFpEF, COPD on 3L home O2, ESRD on hemodialysis, and bed bound for the last 5 years secondary to ankle surgery. At the time of evaluation the patient was altered and subsequently intubated, history has been taken from previous records and her daughter, Silvina, at bed side. She presented to the [facility] via EMS due to generalized weakness, nausea, and vomiting. The patient was recently hospitalized at [facility] after accidentally removing her hemodialysis catheter. This was replaced at and she was discharged, however per records, chair time and medications were arranged before her discharge, thus the did not have dialysis for over a week. Per her daughter, stated she was felt ill, was nauseous, vomiting, and had decreased appetite on 08/23. Symptoms persisted until ambulance was called on Friday 08/24 and she was brought to this institution. On initial evaluation in the ED, she was afebrile, hypotensive, and saturating 88% on room air. Initial labs significant for normocytic anemia with Hb of 6.8, hyponatremia, elevated creatinine and BUN, troponins 60, elevated anion gap, and lactic acid 0.9. UA is significant for UTI. Chest xray significant for enlarged cardiac silhouette, perihilar airspace opacities and bibasilar airspace opacities, prominent pulmonary vasculature, bilateral pleural effusions greater in the left than the right. Abdominal/Pelvic CT significant for generalized soft tissue edema and trace bilateral pleural effusions. The patient was placed on ICU status, and started on Levophed, IV diuresis, IV steroids, IV antibiotics, and 1 PRBC was transfused. Nephrology was consulted and she was dialyzed on 08/24 and 08/26. The patient was evaluated by GI who recommend protonix use and outpatient elective endoscopy and colonoscopy. Patient was transferred to the ICU on 08/27/2025 and on initial evaluation was found to be altered, AOx0, with low MAP readings despite Levophed 24 mcg, with labored breating. Patient was subsequently intubated started on fluids, escalated pressors, and IV antibiotics with vancomycin, zosyn, and subsequently meropenem. Follow up labs showed in WBCs 22.9 with neutrophilia, creatinine 2.41, elevated LFTs with bilirubin of 1.9, AST 775, ALT 167, and ALP 180, lactic acid 14.4. Abdominal ultrasound showed gallbladder wall thickening/edema and pericholecystic fluid with no gallstones or sludge indicative of possible acalculous cholecystitis. Interventional radiology and general surgery were consulted for evaluation. The patient's status continued to deteriorate despite being on maximum dose of Levophed, NeoSyn, Epinephrine, Vasopressin, and Dopamine. Hydrocortisone was added and dopamine double concentration was given for further support. Her daughter, Silvina Merchant, was at bedside and was informed of all findings, implications, treatment, and poor prognosis. She changed code status to chemical code and then subsequently to DNR. Despite all efforts, the patient continued to deteriorate becoming bradycardic and eventually without a palpable pulse. Dr. Moses declared Ms. Gold at 23:53. Case discussed with Dr. Herbert Consults/Reason for consult Nephrology was consulted due to missed dialysis Interventional Radiology was consulted due to findings of possible acalculous cholecystitis General surgery was consulted due to findings of possible acalculous cholecystitis GI was consulted for evaluation of nausea and vomiting Operations or Procedures CHEST RADIOGRAPH Indication: sob Technique: Single frontal view of the chest was obtained Comparison: XY CHEST XRAY 1 VIEW on DOS: 07/30/25, FINDINGS: Right IJ Perma catheter tip projects over the SVC. The cardiac silhouette is enlarged. The lungs demonstrate perihilar airspace opacities. Bibasilar airspace opacities, [id number] The pulmonary vasculature is prominent. Small bilateral pleural effusions, [id number]. Aortic atherosclerotic disease. There is no pneumothorax. IMPRESSION: As above Exam: CT CT AB PEL WO CON-NO ORAL OR IV History: Nausea and vomiting, severe anemia Comparison Study: CT CT AB PEL WITH ORAL CON ONLY on DOS: 05/25/25, CT CT AB PEL WO CON-NO ORAL OR IV on DOS: 05/23/25, CT CT AB PEL WO CON-NO ORAL OR IV on DOS: 04/07/25, CT CT AB PEL WO CON-NO ORAL OR IV on DOS: 04/02/25, CT ABDOMEN WITHOUT CONTRAST on DOS: 03/26/25 Technique: Multidetector spiral CT of the chest, abdomen and pelvis was performed from lower neck to pubic symphysis Axial, coronal and sagittal multiplanar reformats were performed by the technologist on a separate workstation. Radiation Dose : 1. Chest/Abdomen/Pelvis: CTDIvol 26.59 mGy, DLP 1515.85 mGy*cm. Findings: Lower lungs: Trace bilateral pleural effusions. Mild bibasilar atelectatic changes. Liver: The liver is normal in size. No focal lesions. Normal hepatic vascular enhancement. Gallbladder and Biliary Tree: Unremarkable Spleen: Unremarkable Pancreas: The pancreas is normal in appearance without focal lesions or abnormal enhancement. Adrenal Glands: Unremarkable Kidneys: Kidneys demonstrate normal symmetric enhancement without focal lesions, calculi or hydronephrosis. Bladder: Unremarkable Bowel: The stomach is grossly normal in appearance. Small bowel and colon are normal in caliber and distribution. The appendix is not visualized; however, no secondary findings of acute appendicitis identified. Ascites: Absent Lymphadenopathy: No mesenteric, retroperitoneal or periportal lymphadenopathy. Abdominal Wall and Mesentery: Generalized soft tissue edema. Vasculature: The visualized abdominal aorta is normal in size and caliber. Abdominal and pelvic vessels demonstrate normal enhancement. Pelvic Organs: Unremarkable Musculoskeletal: No aggressive focal bony lesions, acute fractures or dislocation. IMPRESSION: No clear cause for nausea and vomiting or anemia. Generalized soft tissue edema. Trace bilateral pleural effusions. CHEST RADIOGRAPH Indication: ETT PLACEMENT Technique: Single frontal view of the chest was obtained Comparison: XY CHEST PORTABLE on DOS: 08/24/25, XY CHEST XRAY 1 VIEW on DOS: 07/30/25, XY CHEST PORTABLE on DOS: 07/29/25, XY CHEST PORTABLE on DOS: 07/28/25, XY CHEST PORTABLE on DOS: 07/27/25, XY CHEST XRAY 1 VIEW on DOS: 07/30/25 FINDINGS: Lines and Tubes: Endotracheal tube 5 cm from the emre. Nasogastric tube tip in the stomach. Left central venous catheter tip in the SVC. Tunneled right hemodialysis catheter tip in the cavoatrial junction. Lungs: Increased interstitial opacities. Pleura: Small right pleural effusion No pneumothorax. Cardiomediastinal contours: Cardiomegaly. Bones: Unremarkable IMPRESSION: 1. Lines and tubes as above. 2. Cardiomegaly. Worsening pulmonary edema. Radial arterial line procedure note Indication: Hemodynamic monitoring, frequent blood ABG draws. Liquid Sugar Fortifier: Dr. Oro Survey Party Chief: Amelia RN, Fe RN Date: August 27, 2025 Time: 10:30 a.m. Consent: Emergent procedure medically necessary for hemodynamic monitoring. Patient medications and allergies reviewed. The risks and benefits of the procedure and the sedation options and risk were discussed with the patient's healthcare proxy. All questions were answered and informed consent was obtained. Patient identification and proposed procedure were verified prior to the procedure by the physician, and a nurse in the patient's room. The heart rate, respiratory rate, oxygen saturations, blood pressure, adequacy of pulmonary ventilation, and response to care were monitored throughout the procedure. The physical status of the patient was reassessed after the procedure. Procedure summary: A time-out was performed. My hands were washed immediately prior to the procedure. I wore surgical cap, mask with protective eyewear, sterile gown and sterile gloves throughout the procedure. After an Mayco test was performed to ensure adequate perfusion, the RIGHT wrist was prepped using chlorhexidine scrub and draped in sterile fashion using sterile towels. The radial pulse was identified with the use of ultrasound. The wrist was positioned in the usual fashion. Anesthesia was achieved using 1% lidocaine. Using the radial arterial line kit, needle was inserted into the radial artery using ultrasound guidance. Arterial blood flow was seen to pulsate in the flash chamber. The internal guidewire was advanced easily into the radial artery. The catheter was then advanced over the wire and the needle and wire were withdrawn. The catheter was sutured into place with 1 sutures. A sterile Biopatch and Tegaderm was placed over the catheter at the insertion site. The patient tolerated the procedure without any hemodynamic compromise. At the time of procedure completion, the catheter was connected to the awake overnight monitor and calibrated. Appropriate waveform and blood pressure tracing was observed. Estimated blood loss: less than 5 mL. Intubation Indication: Respiratory Insufficiency Prep: Preoxygenation Pretreated with: Sedation Medicated with: Other (Rocuronium) Intubation Approach: Orotracheal Intubation size: cm (7.5) Informed consent obtained: Yes Risks/benefits/alt described: Yes Notes Intubation was done without complication using glideoscope visualization under the supervision of Dr. El. Central Line Recorder of insertion practice: Observer Occupation of care program director: Other (Resident), Name of care program director (Burt Cornell PGY2) Indication: Hypotension, Inability to obtain IV Room prepared for procedure: Yes Customer Associate performed hand hygien: Yes Maximal sterile barrier precau: Mask/Eye shield, Sterile gown, Cap, Sterlie gloves, Large sterlie drape Skin Preparation: Chlorhexidine gluconate Skin preparation completely dr: Yes Insertion site: Left, Internal jugular Central line catheter type: [id number] dialysis Number of lumens: 3 Central line exchanged over a: No Antiseptic ointment applied to: Yes Post Assessment: Chest X-Ray, Proper placement, No Pneumothorax Informed consent obtained: Yes (Two dr consent ) Risks/benefits/alt described: No Notes Central line was placed by Dr. Cornell, PGY-2, with proper sterile protocols under the supervision of Dr. Munroe. Condition at Discharge: Critical Final Diagnosis/Problems List Acute metabolic encephalopathy likely due to septic shock Acute on Chronic HFpEF Bilateral pleural effusion NSTEMI likely type 2 Paroxysmal Atrial Fibrillation Hypertension Dyslipidemia Acute hypoxic respiratory failure COPD, exacerbation ruled out Acalculous Cholecystitis GI bleed ruled out Complicated UTI ESRD on Dialysis Acute metabolic acidosis Hyponatremia Hypocalcemia Septic shock likely due to UTI, possibly present on admssion Lactic acidosis due to above Acute normocytic anemia, likely due to blood loss Hypothyroidism Morbid obesity, BMI 45.7 Functional quadriplegia Discharge Disposition: at Hospital Discharge Instruct/Medications Scheduled Albuterol Sulfate (Ventolin Mdi), 90 MCG IN Q6HP, (Reported) Allopurinol (Allopurinol), 100 MG PO DAILY, (Reported) Amiodarone HCl (Amiodarone HCl), 1 TAB PO BID, (Reported) Apixaban Base (Eliquis), 1 TAB PO BID, (Reported) Atorvastatin Calcium (Atorvastatin Calcium), 1 TAB PO DAILY, (Reported) Azithromycin (Zithromax Tablet), 250 MG PO DAILY Bumetanide (Bumetanide), 1 TAB PO BID, (Reported) Clobetasol Propionate (Clobetasol Propionate), 1 APPLIC TOP BID, (Reported) Fluticasone-Salmeterol (Advair Diskus 500/50), 1 PUFF INH BID, (Reported) Fluticasone-Salmeterol (Fluticasone Propionate/SA 500-50 Mcg/Dose), 1 PUFF PO BID, (Reported) Gabapentin (Gabapentin), 300 MG PO BID, (Reported) Hydroxychloroquine Sulfate (Plaquenil), 1 TAB PO DAILY, (Reported) Lactulose (Lactulose), 15 ML PO DAILY, (Reported) Levothyroxine Sodium (Levothyroxine Sodium), 1 TAB PO DAILY, (Reported) Meclizine HCl (Meclizine 25), 25 MG PO BID, (Reported) Midodrine Hcl (Midodrine Hcl), 1 TAB PO BID, (Reported) Pantoprazole Sodium Sesquihydr (Pantoprazole Sodium), 1 TAB PO DAILY, (Reported) Potassium Chloride (Potassium Chloride ER), 1 TAB PO BID, (Reported) Prednisone (Prednisone), 20 MG PO BID Ropinirole Hydrochloride (Ropinirole Hcl), 1 TAB PO BID, (Reported) Discharge Statement: "Patient was advised to return to the ER or call 911 if any headaches, dizziness, shortness of breath, chest pain, abdominal pain, bleeding, fevers, or worsening of medical condition. Patient was counseled about treatment plan, medications, possible side effects, patientverbalized understanding. All questions were answered to the best of my ability. This discharge took greater then 30 minutes in planning, reviewing documentation, counseling the patient, and discussing with other team members." ASSESSMENT ASSESSMENT Assessment GLADYS DIETZ RESIDENT Aug 28, 2025 09:04
== END 2025-08-28 | DRG 871 ==
LOC: ER 12:22 → EDBD 12:22 → OVERFLOW 15:01 → ICU WEST 08-27 01:38
PROVIDERS: ADMIT Internal Medicine Pulmonary Disease; ATTEND Internal Medicine Pulmonary Disease
PROC: 30233N1 Transfusion of Nonautologous Red Blood Cells into Peripheral Vein, Percutaneous Approach (ICD-10-PCS; principal; 2025-08-24)
PROC: 5A1D70Z Performance of Urinary Filtration, Intermittent, Less than 6 Hours Per Day (ICD-10-PCS; 2025-08-24)
PROC: 5A1D70Z Performance of Urinary Filtration, Intermittent, Less than 6 Hours Per Day (ICD-10-PCS; 2025-08-26)
PROC: 03HY32Z Insertion of Monitoring Device into Upper Artery, Percutaneous Approach (ICD-10-PCS; 2025-08-27)
PROC: 0BH17EZ Insertion of Endotracheal Airway into Trachea, Via Natural or Artificial Opening (ICD-10-PCS; 2025-08-27)
PROC: 5A1935Z Respiratory Ventilation, Less than 24 Consecutive Hours (ICD-10-PCS; 2025-08-27)
PROC: 02HV33Z Insertion of Infusion Device into Superior Vena Cava, Percutaneous Approach (ICD-10-PCS; 2025-08-27)
DX: A41.9 Sepsis, unspecified organism (principal); G93.41 Metabolic encephalopathy; I21.A1 Myocardial infarction type 2; I50.33 Acute on chronic diastolic (congestive) heart failure; J96.21 Acute and chronic respiratory failure with hypoxia; N18.6 End stage renal disease; R57.1 Hypovolemic shock; R65.21 Severe sepsis with septic shock; R53.2 Functional quadriplegia; I13.2 Hypertensive heart and chronic kidney disease with heart failure and with stage 5 chronic kidney disease, or end stage renal disease; K80.00 Calculus of gallbladder with acute cholecystitis without obstruction; N17.9 Acute kidney failure, unspecified; N39.0 Urinary tract infection, site not specified; Z99.2 Dependence on renal dialysis; Z79.01 Long term (current) use of anticoagulants; E46 Unspecified protein-calorie malnutrition; E11.22 Type 2 diabetes mellitus with diabetic chronic kidney disease; E66.01 Morbid (severe) obesity due to excess calories; E03.9 Hypothyroidism, unspecified; D50.0 Iron deficiency anemia secondary to blood loss (chronic); E87.20 Acidosis, unspecified; E87.1 Hypo-osmolality and hyponatremia; I48.19 Other persistent atrial fibrillation; Z68.42 Body mass index [BMI] 45.0-49.9, adult; L89.152 Pressure ulcer of sacral region, stage 2; E86.1 Hypovolemia; E78.5 Hyperlipidemia, unspecified; I48.0 Paroxysmal atrial fibrillation; E83.51 Hypocalcemia; Z88.2 Allergy status to sulfonamides; Z88.8 Allergy status to other drugs, medicaments and biological substances; Z79.2 Long term (current) use of antibiotics; Z79.899 Other long term (current) drug therapy; Z74.01 Bed confinement status; Z85.828 Personal history of other malignant neoplasm of skin; Z82.5 Family history of asthma and other chronic lower respiratory diseases; Z82.3 Family history of stroke; Z87.891 Personal history of nicotine dependence; Z82.49 Family history of ischemic heart disease and other diseases of the circulatory system
CPT/HCPCS: 31500; 36415; 36556; 36600; 36620; 71045; 74176; 76705; 80048; 80053; 80061; 80307; 81001; 82306; 82607; 82728; 82746; 82805; 82962; 83010; 83036; 83540; 83550; 83605; 83690; 83735; 83880; 84100; 84443; 84484; 85007; 85025; 85027; 85045; 85610; 85730; 86850; 86900; 86901; 86920; 87040; 87070; 87081; 87086; 87205; 87340; 90935; 93005; 94002; 94640; 99291; 99292; G0378; J0169; J1265; J1642; J2185; J2470; J3470; J7060